=== PATIENT | female | born 1960 | race Caucasian/White ===

== ENCOUNTER 2020-09-05 16:34 | Emergency (ER) | payer BC, SELFPAY ==
--- NOTE | 2020-09-05 16:36 | W.ED.GENAD ---
Discharge Plan Disposition Patient Disposition: HOME Condition: Good Discharge Details Clinical Impression: Left knee pain Primary Care Provider: Ja Ordaz ED Provider: Moshe Dunham Meds and New Rx's Prescriptions: Continued morphine in 0.9 % sodium chlor 0.1 mg/mL Solution 2 ml 5X/DAY RF: 0 oxycodone 10 mg Tablet 10 mg PO TID RF: 0 citalopram 40 mg Tablet 40 mg PO DAILY RF: 0 amoxicillin 500 mg Tablet 500 mg PO QID RF: 0 levothyroxine [Synthroid] 100 mcg Tablet 100 mcg PO DAILY RF: 0 fenofibrate 160 mg Tablet 160 mg PO DAILY RF: 0 Discharge Instructions Additional Instructions: Laboratory studies and imaging are reassuring tonight. I did speak with orthopedics at [facility] regarding plan. Given no fever here with ability to ambulate and unremarkable labs they do not recommend aspirating the knee at this time. It may be that a small starting infection may be present. They would like to see you in the next 1 to 2 days. If your knee gets worse they would like you to present to the ED at [facility]. Please call orthopedics at [facility] tomorrow morning for follow-up Referrals: [facility] [Outside] Medical Decision Making Patient presenting to ED with known dental abscess on amoxicillin since yesterday. Has a relatively new left total knee replacement which is painful and swollen though able to ambulate and flex and extend. She reports throbbing headache and fever. She looks well here. She is afebrile with normal vital signs. I mentioned the possibility of needing to aspirate the knee which she does not wish to do. Spoke with orthopedics at [facility] who recommends getting CBC, sed rate, C-reactive protein and calling them back. Discussed with orthopedics at [facility]. Relayed my physical exam findings and laboratory findings. At this point orthopedics recommends no aspiration, obtain imaging, follow-up in clinic in the next 24 to 48 hours. No change in patient's medications or antibiotics at this point. They would prefer that she presents to the ED there if she gets worse before follow-up. X-rays were obtained and suggest a small effusion. Questionable possibility of some loosening of the hardware. Patient discharged in good condition to contact orthopedics tomorrow morning for follow-up Medical Records Medical records reviewed: Yes I reviewed the patient's medical records. Lab Data Lab results reviewed: Yes I reviewed the patient's lab results. HPI General Date/Time Provider Initiated Documentation: 09/05/20 16:36. Limitations to Documentation: no limitations. Information obtained by: patient, RN notes reviewed and old records reviewed. HPI Narrative: Patient presents to ED for evaluation of left knee pain and swelling. Patient had a left total knee replacement done within the last year. 11 days ago she broke off her back left upper molar. About 5 days in to that she started to have pain and swelling. She was unable to see a dentist until yesterday. Her orthopedist at [facility] told her to take 2 g of amoxicillin before seeing the dentist. After seeing the dentist there was too much swelling and inflammation to proceed with any procedure. She was continued on amoxicillin 500 mg every 8 hours. In the last 2 days she has had some increasing pain and swelling in the left knee. Overnight she has developed a headache. Today she had fever. She spoke to orthopedics at [facility] who referred her into ED for evaluation of septic joint. Patient is able to ambulate with a limp. She is able to flex and extend normally but it feels tight. There is been no redness present. She denies cough, chest pain, shortness of breath, abdominal pain. She generally feels fatigued and malaised. Headache is described as generalized and throbbing. No neck pain. No sinus pressure or earaches. Related Data Home Medications Medication Instructions Recorded Confirmed amoxicillin 500 mg PO QID 09/05/20 09/05/20 citalopram 40 mg PO DAILY 09/05/20 09/05/20 fenofibrate 160 mg PO DAILY 09/05/20 09/05/20 levothyroxine [Synthroid] 100 mcg PO DAILY 09/05/20 09/05/20 morphine in 0.9 % sodium chlor 2 ml 5X/DAY 09/05/20 09/05/20 oxycodone 10 mg PO TID 09/05/20 09/05/20 Allergies Allergy/AdvReac Type Severity Reaction Status Date / Time tetracycline Allergy Itching Unverified 09/05/20 16:42 wheat AdvReac Unverified 09/05/20 16:42 Review of Systems Narrative: As documented in HPI otherwise negative as below. Const: no chills, weakness Resp: no cough, SOB, pleuritic pain CV: no CP, diaphoresis, edema, syncope GI: no abdominal pain, nausea, vomiting, diarrhea Neuro: no numbness, focal weakness, confusion PFSH Medical History Hypercholesterolemia Hypothyroid Surgical History S/P TKR (total knee replacement) left Status post right partial knee replacement Social History Smoking risk assessment performed?: No Do you feel safe at home: Yes Do you feel safe in your relationship?: Yes Exam Narrative Exam Narrative: Const: Obese female in NAD. HEENT: NC/AT. Normal facial exam. Eyes: Normal conjunctiva and sclera. Neck: Supple. Trachea midline. No meningeal signs. Lungs: Normal respiratory effort. Lungs are clear. Cor: RRR without murmur/gallop. Good radial pulses. Neuro: A+O x 3. Normal speech, mentation. Cranial nerves II - XII grossly intact. No gross motor or sensory deficit. Ext: No C/C/E. Left knee warm but not hot or red. Able to flex and extend well. Walks with limp. Skin: Warm and dry without erythema.
[2020-09-05 16:38] VITALS: BP 111/88; PULSE 70; RESP 18; TEMP 36.6; O2SAT 97
[2020-09-05 17:22] LABS: Abs Immature Grans 0.01 10^3/uL (0.0-0.06); Absolute Basophil Count 0.07 10^3/uL (0.0-0.2); Absolute Lymphocyte Count 1.75 10^3/uL (1.2-3.4); Absolute Monocyte Count 0.61 10^3/uL (0.1-0.8); Absolute Neutrophil Count 3.85 10^3/uL (1.2-6.7); HCT 38.1 % (36.0-46.0); Immature Grans % 0.1; Lymphocytes % 26.2; MCHC 31.5 % (32.0-36.0); MCV 85.6 fL (80-95); MPV 9.9 fL (8.0-11.0); Monocytes % 9.1; Neutrophils % 57.6; Nucleated RBC 0 %; Platelet Count 402 10^3/uL (130-400); RBC 4.45 10^6/uL (3.93-5.22); RDW-SD 47.1 fL; WBC 6.69 10^3/uL (4.4-10.8)
[2020-09-05 17:33] LABS: C-Reactive Protein 0.51 mg/dL (0.0-0.3)
[2020-09-05 17:36] LABS: ESR 15 mm//hr (0-30)
--- NOTE | 2020-09-05 18:50 | DI.RAD_ITS ---
EXAM: XR KNEE LT 3V AP,LAT,RICARDO CLINICAL HISTORY: pain and swelling; TKR. TECHNIQUE: 2D digital imaging was performed. COMPARISON: No exams were available for comparison FINDINGS: Components of the prosthesis are in satisfactory position. On the lateral view there is lucency note d around the femoral component which may possibly represent an element of loosening. Comparison with prior images would be helpful here. In addition, on the lateral view there is is subtle in the line ar lucency subjacent to the anterior aspect of the tibial component. There is also some swelling in the soft tissues anterior to the distal quadriceps and patella. There is no patellar fracture. IMPRESSION: Possible loosening. It would be important here to compared to prior images (which are not in our PAC S). DATA REPOSITORY: RADIATION DOSE DELIVERED:
--- NOTE | 2020-09-05 19:08 | DI.VRAD_ITS ---
PROCEDURE INFORMATION: Exam: XR Left Knee Exam date and time: 09/05/2020 6:51 PM Age: 59 years old Clinical indication: Pain; Knee; Left; Prior surgery TECHNIQUE: Imaging protocol: XR Left knee. Views: 3 views. COMPARISON: No relevant prior studies available. FINDINGS: Bones/joints: Prior total knee arthroplasty that appears in near anatomic alignment. There is a small lucency along the inner surface of the femoral component anterosuperiorly. There is a small joint effusion. There has been patellar resurfacing. There is an enthesophyte on the upper pole of the patella. No acute fracture is identified. Soft tissues: Normal. IMPRESSION: 1. Prior total knee arthroplasty in normal alignment. 2. Lucency along the anterosuperior aspect of the femoral component may or may not represent loosening of the prosthesis. Comparison with prior images may be helpful. 3. A small joint effusion. Dictated and Authenticated by: Den Sanchez MD. Ordering:PIERRE Mesa MD
== END 2020-09-05 19:30 | disposition home or self-care (01) ==
PROVIDERS: Emergency Provider Emergency Medicine; PCP Family Medicine
DX: M25.562 Pain in left knee (principal); M25.462 Effusion, left knee; Z96.652 Presence of left artificial knee joint; R93.6 Abnormal findings on diagnostic imaging of limbs; R51.9 Headache, unspecified; R50.9 Fever, unspecified; K04.7 Periapical abscess without sinus
CPT/HCPCS: 36415; 73562; 85652; 99284; 85025; 86140

== ENCOUNTER 2020-09-19 09:15 | Outpatient (REF) | payer BC, SELFPAY ==
[2020-09-19 13:21] LABS: HCT 36.9 % (36.0-46.0); HGB 11.8 g/dL (11.2-15.7); MCH 27.4 pg (27.0-33.0); MCV 85.8 fL (80-95); MPV 10.8 fL (8.0-11.0); Platelet Count 368 10^3/uL (130-400); RDW-SD 46.9 fL; WBC 5.63 10^3/uL (4.4-10.8)
[2020-09-19 14:12] LABS: ALT 38 U/L (14-59); AST 28 U/L (15-37); Alkaline Phosphatase 52 U/L (46-116); Anion Gap 11.3 mmol/L (3-11); BUN 13 mg/dL (7-18); Bilirubin, Total 0.3 mg/dL (0.2-1.0); CO2 25.7 mmol/L (21.0-32.0); CREATININE 0.9 mg/dL (0.55-1.02); Chloride 107 mmol/L (98-107); Glucose 102 mg/dL (74-106); Potassium 4.2 mmol/L (3.5-5.1); Sodium 144 mmol/L (136-145); TSH 1.24 uIU/mL (0.36-3.74); Total Protein 7.4 g/dL (6.4-8.2); Uric Acid 3.8 mg/dL (2.6-6.0)
[2020-09-19 14:25] LABS: Calculated LDL 95 mg/dL (<100); Cholesterol 165 mg/dL (<200); HDL Cholesterol 62 mg/dL (40-60); Triglyceride 41 mg/dL (<150)
== END 2020-09-19 09:16 | disposition home or self-care (01) ==
LOC: NCHCN 09:15
PROVIDERS: PCP Family Medicine; Visit Provider Family Medicine
DX: Z00.00 Encounter for general adult medical examination without abnormal findings (principal); M10.9 Gout, unspecified; M54.5 Low back pain; Z13.220 Encounter for screening for lipoid disorders; Z13.29 Encounter for screening for other suspected endocrine disorder
CPT/HCPCS: 80053; 80061; 85027; 84443; 84550

== ENCOUNTER 2020-10-23 13:58 | Outpatient (CLI) | payer BC, MEDICARE, SELFPAY ==
--- NOTE | 2020-10-24 15:55 | DI.RAD_ITS ---
Exam(s) XR PELVIS AP EXAM: XR PELVIS AP CLINICAL HISTORY: CHRONIC LOW BACK PAIN,M54.5. TECHNIQUE: 2D digital imaging was performed. COMPARISON: No exams were available for comparison FINDINGS: There is a Rickie of previous L5-S1 level fusion bone graft surgery and there are also 2 metallic vanesa britney at the level of the right sacroiliac joint. No evidence of acute fracture. There is a 9 x 6 mil limeter calcific density seen above the greater trochanter of the right hip. No other hip findings. No ominous osseous lesions. Six IMPRESSION: DATA REPOSITORY: RADIATION DOSE DELIVERED:
--- NOTE | 2020-10-24 15:55 | DI.RAD_ITS ---
Exam(s) XR LUMBAR SPINE COMPLETE EXAM: XR LUMBAR SPINE COMPLETE CLINICAL HISTORY: CHRONIC LOW BACK PAIN,M54.5. TECHNIQUE: 2D digital imaging was performed. COMPARISON: CR XR PELVIS AP from 10/24/2020 CR XR PELVIS AP from 10/24/2020 FINDINGS: There is transitional lumbar anatomy. There is no evidence acute fracture or listhesis. There is evidence of previous surgery with bilater al bone graft material at L5-S1 levels and metallic implants at the level of the right SI joint. The re is mild disc space narrowing at L4-5 and L5-S1 levels. No listhesis. Mild degenerative changes a re noted in the facet joints. No ominous osseous lesions. Left sacroiliac joint appears unremarkabl e. Incidentally noted is a thin needle in the posterior back tissues. This is possibly a foreign body o r related to medical diagnostic radiographer. Incidentally noted is a calcific density measuring 10 x 6 millimeters located just above the greater trochanter of the right hip. IMPRESSION: DATA REPOSITORY: RADIATION DOSE DELIVERED:
--- NOTE | 2020-10-24 15:55 | DI.RAD_ITS ---
Exam(s) XR FOOT RT COMPLETE EXAM: XR FOOT RT COMPLETE CLINICAL HISTORY: RT FOOT PAIN,M79.671. TECHNIQUE: 2D digital imaging was performed. COMPARISON: No exams were available for comparison FINDINGS: There is no evidence of acute fracture or diastasis of the Lisfranc joint. On the medial aspect of t he foot there is calcific density at level the navicular tuberosity which is probably ununited apophy sis. Correlation with site of tenderness is recommended. Bone density is slightly low. No lytic os seous lesions. No osseous tarsal coalition noted. No ominous osseous lesions nor erosions seen. No pes planus. IMPRESSION: DATA REPOSITORY: RADIATION DOSE DELIVERED:
== END 2020-10-23 14:18 ==
PROVIDERS: PCP Family Medicine; Visit Provider Family Medicine
DX: M79.671 Pain in right foot (principal); M54.5 Low back pain; G89.29 Other chronic pain
CPT/HCPCS: 72110; 72170; 73630

== ENCOUNTER 2020-10-31 01:40 | Outpatient (CLI) | payer BC, MEDICARE, SELFPAY ==
--- NOTE | 2020-10-31 | DI.MAMMO_ITS ---
Exam(s) MAMMO SCREENING EXAM: MAMMO SCREENING CLINICAL HISTORY: SCREENING, Z12.39 TECHNIQUE: Mammograms were interpreted according to the usual protocol including computer analysis w GENEL[employer] CAD system, tomosynthesis and C-view imaging. COMPARISON: FINDINGS: The breasts are of moderate density with fairly symmetrical distribution of fibroglandular tissue. N o dominant mass or clumped microcalcification is identified in either breast. The current examinatio n is compared with previous examinations including June 2018 and there has been no gross interval change in appearance in comparison with the prior studies. IMPRESSION: No specific evidence of malignancy at this time. Routine screening examinations are suggested at yea rly intervals due to the family history of breast carcinoma. BI-RADS Category 1 - Negative Breast Density - Category B - Scattered areas of fibroglandular density
== END 2020-10-31 02:00 ==
PROVIDERS: PCP Family Medicine; Visit Provider Family Medicine
DX: Z12.31 Encounter for screening mammogram for malignant neoplasm of breast (principal); R92.8 Other abnormal and inconclusive findings on diagnostic imaging of breast; Z80.3 Family history of malignant neoplasm of breast
CPT/HCPCS: 77063; 77067

== ENCOUNTER 2021-04-02 10:11 | Outpatient (REF) | payer BC, MEDICARE, SELFPAY ==
[2021-04-03 19:38] LABS: COVID-19 RT-PCR UVMMC Result Positive (Negative)
== END 2021-04-02 10:12 | disposition home or self-care (01) ==
LOC: NCHCN 10:11
PROVIDERS: PCP Family Medicine; Visit Provider Family Medicine
DX: Z20.822 Contact with and (suspected) exposure to COVID-19 (principal)
CPT/HCPCS: U0003

== ENCOUNTER 2021-09-20 16:39 | Emergency (ER) | payer BC, MEDICARE, SELFPAY ==
[2021-09-20 16:50] VITALS: BP 93/53; PULSE 69; RESP 14; TEMP 37.1; O2SAT 92
--- NOTE | 2021-09-20 17:29 | ED.GENADUL_ITS ---
Discharge Plan Disposition Patient Disposition: HOME Condition: Stable Discharge Details Clinical Impression: Encounter for postoperative wound check Primary Care Provider: Ja Ordaz ED Provider: Siri Benjamin Home Meds and New Rx's Prescriptions: New cephalexin 500 mg tablet 500 mg PO BID 7 Days Qty: 14 0RF No Action morphine in 0.9 % sodium chlor 0.1 mg/mL Solution 2 ml 5X/DAY oxycodone 10 mg Tablet 10 mg PO TID citalopram 40 mg Tablet 40 mg PO DAILY amoxicillin 500 mg Tablet 500 mg PO QID levothyroxine [Synthroid] 100 mcg Tablet 100 mcg PO DAILY Rx Instructions: Brand name only fenofibrate 160 mg Tablet 160 mg PO DAILY Discharge Instructions Instructions: Steristrips (ED) Additional Instructions: Keep incision area clean and dry. Keep covered try not to get wet. Take the antibiotics twice daily as directed take with food. Please notify and follow-up with your surgeon at [facility] regarding wound recheck and to let them know that you are placed on antibiotics today. Follow up with primary care provider in 3-5 days. Return to ED sooner if any worsening or concerns. Increase oral fluids. Please take Tylenol or Ibuprofen with food every 4-6 hours as needed for pain and swelling. Referrals: Ja Ordaz MD [Primary Care Provider] - 3 days Wayne Sanchez [ NON-[employer] [facility] [employer] PHYSICIAN] - 3 days Medical Decision Making 60-year-old female presents to the ER with chief complaint of bleeding from surgical site to the left knee. Patient is status post a left knee revision at [facility] on September 10. She reports that on 12 September she had an episode of hemorrhaging from the knee incision. She was also given blood transfusion while in the hospital. She was released on the . She reports that since being released she has had daily blood soaked dressings. Yesterday had a nurse visit and steri strips were placed. She reports these are not working. She is requesting sutures. Patient does take a baby aspirin daily. She reports that she was on Coumadin but has been off the Coumadin since early September. She was also recently taken off naproxen. She does take Dilaudid and gabapentin for pain. She denies any recent injuries or falls. She is not currently on any antibiotic. Of note she is also recently noticed an area of redness which is more proximal of the incision. She denies any body aches chills or fever. Labs ordered including CBC CMP CBC does show some anemia hemoglobin is 8.5 hematocrit 27.4 RBC 3.98, platelets 151 no leukocytosis. No left shift. CMP largely within normal limits. C- reactive protein is elevated 2.09 1916: Incision examined, no active bleeding at this time. Wound is well approximated there is some areas of patchy surrounding erythema. No purulent drainage noted. There are Steri-Strips that are intact. Steri-Strips were reinforced the distal aspect of the incision. 7 Steri-Strips were placed. Dressing was covered with ABD pads Will place patient on antibiotics due to the erythema and increased pain to empirically for possible infection, Cephalexin 500 mg PO given here. Discussed home care and follow-up with orthopedic surgeon with patient who verbalized understanding. This text was generated using [employer] sy stem, please disregard any oddities of phrase or misspellings. HPI General Mode of arrival: wheelchair . Date/Time Provider Initiated Documentation: 09/20/21 16:47 . Limitations to Documentation: no limitations . Information obtained by: patient, family and RN notes reviewed . HPI Narrative: 60-year-old female presents to the ER with chief complaint of bleeding from surgical site to the left knee. Patient is status post a left knee revision at [facility] on September 10. She reports that on 12 September she had an episode of hemorrhaging from the knee incision. She was also given blood transfusion while in the hospital. She was released on the . She reports that since being released she has had daily blood soaked dressings. Yesterday had a nurse visit and steri strips were placed. She reports these are not working. She is requesting sutures. Patient does take a baby aspirin daily. She reports that she was on Coumadin but has been off the Coumadin since early September. She was also recently taken off naproxen. She does take Dilaudid and gabapentin for pain. She denies any recent injuries or falls. She is not currently on any antibiotic. Of note she is also recently noticed an area of redness which is more proximal of the incision. She denies any body aches chills or fever. Related Data Home Medications Medication Instructions Recorded Confirmed amoxicillin 500 mg tablet 500 mg PO QID 09/05/20 09/20/21 citalopram 40 mg tablet 40 mg PO DAILY 09/05/20 09/20/21 fenofibrate 160 mg tablet 160 mg PO DAILY 09/05/20 09/20/21 levothyroxine 100 mcg tablet 100 mcg PO DAILY 09/05/20 09/20/21 (Synthroid) morphine 0.1 mg/mL in 0.9 % sodium 2 ml 5X/DAY 09/05/20 09/05/20 chloride injection oxycodone 10 mg tablet 10 mg PO TID 09/05/20 09/20/21 cephalexin 500 mg tablet 500 mg PO BID 7 days #14 tabs 09/20/21 Previous Rx's Medication Instructions Recorded cephalexin 500 mg tablet 500 mg PO BID 7 days #14 tabs 09/20/21 Allergies Allergy/AdvReac Type Severity Reaction Status Date / Time latex Allergy Verified 03/12/21 14:37 [id number]-FhP Reductase Allergy Verified 03/12/21 14:37 Inhibitor tetracycline Allergy Itching Unverified 09/05/20 16:42 wheat AdvReac Unverified 09/05/20 16:42 General Stated Complaint: GenMedical QUIN: 3 Review of Systems All systems reviewed & are unremarkable except as noted in HPI and below Constitutional Constitutional: Denies body ache(s), Denies chills, Denies fever(s) and Denies frequent falls Musculoskeletal Musculoskeletal: Reports as per HPI (Bleeding from surgical incision) and Reports arthralgias Neurologic Neurologic: Denies frequent falls PFSH All Active Problems (Updated 09/20/21 @ 19:26 by Siri Benjamin) Left knee pain (Acute) Encounter for postoperative wound check (Acute) Hypothyroid (Chronic) Hypercholesterolemia (Chronic) Surgical History S/P TKR (total knee replacement) left Status post right partial knee replacement Social History Smoking/Tobacco Use Status: Former Tobacco Use Smoking risk assessment performed?: Yes Do you feel safe at home: Yes Do you feel safe in your relationship?: Yes Exam Extrem Right lower extremity: normal to inspection Left lower extremity: knee Details: laceration (Healing Surgical Incision with steri-strips in place, no active bleeding) Knee images: 1. Surgical incision 2. Erythema 3. Erythema Course Vital Signs Vital signs: Vital Signs Temperature 37.1 C 09/20/21 16:50 Pulse 69 09/20/21 16:50 Respiratory Rate 14 09/20/21 16:50 Blood Pressure 93/53 L 09/20/21 16:50 Pulse Oximetry 92 09/20/21 16:50 Temperature 37.1 C 09/20/21 16:50 Temperature Source Temporal Artery Scan 09/20/21 16:50 Pulse 69 09/20/21 16:50 Respiratory Rate 14 09/20/21 16:50 Respiratory Effort Non-Labored 09/20/21 17:01 Blood Pressure 93/53 L 09/20/21 16:50 Blood Pressure Position Sitting 09/20/21 16:50 Pulse Oximetry 92 09/20/21 16:50 Oxygen Delivery Method Room Air 09/20/21 16:50 Oxygen Flow Rate 0 09/20/21 16:50 Comment 09/20/21 16:50
[2021-09-20 17:41] VITALS: RESP 18
[2021-09-20 17:45] LABS: Abs Immature Grans 0.34 10^3/uL (0.0-0.06); Absolute Basophil Count 0.05 10^3/uL (0.0-0.2); Absolute Eosinophil Count 0.51 10^3/uL (0.0-0.7); Absolute Lymphocyte Count 1.81 10^3/uL (1.2-3.4); Absolute Monocyte Count 0.91 10^3/uL (0.1-0.8); Absolute Neutrophil Count 4.56 10^3/uL (1.2-6.7); Basophils % 0.6; Eosinophils % 6.2; HCT 27.4 % (36.0-46.0); HGB 8.5 g/dL (11.2-15.7); Immature Grans % 4.2; Lymphocytes % 22.1; MCH 28.5 pg (27.0-33.0); MCV 92 fL (80-95); MPV 9.4 fL (8.0-11.0); Monocytes % 11.1; Neutrophils % 55.8; Nucleated RBC 0.4 % (0.0-0.3); Platelet Count 451 10^3/uL (130-400); RBC 2.98 10^6/uL (3.93-5.22); RDW 13.7 % (11.7-14.6); RDW-SD 44.7 fL; WBC 8.18 10^3/uL (4.4-10.8)
[2021-09-20 17:57] LABS: INR 0.9 (0.9-1.1); Prothrombin Time 9.5 sec (9.3-11.0)
[2021-09-20 17:58] LABS: Diff Comment Agrees w/ Instrument; Polychromasia Present
[2021-09-20 18:00] LABS: ALT 30 U/L (14-59); AST 33 U/L (15-37); Albumin 3.1 g/dL (3.4-5.0); Alkaline Phosphatase 61 U/L (46-116); Anion Gap 6.4 mmol/L (3-11); BUN 8 mg/dL (7-18); Bilirubin, Total 0.2 mg/dL (0.2-1.0); C-Reactive Protein 2.09 mg/dL (0.0-0.3); CO2 29.6 mmol/L (21.0-32.0); CREATININE 0.8 mg/dL (0.55-1.02); Calcium 8.5 mg/dL (8.5-10.1); Chloride 104 mmol/L (98-107); Glucose 108 mg/dL (74-106); Potassium 4.1 mmol/L (3.5-5.1); Sodium 140 mmol/L (136-145); Total Protein 6.9 g/dL (6.4-8.2)
[2021-09-20] MEDS: Cephalexin 500 MG CAP PO (19:39)
[2021-09-20] MEDS: Cephalexin 500 MG CAP, 2 CAPS/BTL PO (19:39)
[2021-09-20 19:40] VITALS: BP 138/86; PULSE 78; RESP 18; TEMP 37; O2SAT 98
== END 2021-09-20 19:38 | disposition home or self-care (01) ==
PROVIDERS: Emergency Provider Registered Nurse Emergency; PCP Family Medicine
DX: L76.22 Postprocedural hemorrhage of skin and subcutaneous tissue following other procedure (principal); Z79.82 Long term (current) use of aspirin
CPT/HCPCS: 36415; 80053; 99283; 85025; 85610; 86140

== ENCOUNTER 2022-05-26 12:41 | Outpatient (REF) | payer BC, MEDICARE, SELFPAY ==
[2022-05-26 15:56] LABS: Anion Gap 7.7 mmol/L (3-11); BUN 11 mg/dL (7-18); CO2 31.3 mmol/L (21.0-32.0); CREATININE 0.8 mg/dL (0.55-1.02); Calcium 9.3 mg/dL (8.5-10.1); Calculated LDL 106 mg/dL (<100); Chloride 104 mmol/L (98-107); Cholesterol 190 mg/dL (<200); Glucose 98 mg/dL (74-106); HDL Cholesterol 73 mg/dL (40-60); Potassium 4.1 mmol/L (3.5-5.1); Sodium 143 mmol/L (136-145); TSH 7.18 uIU/mL (0.36-3.74); Triglyceride 56 mg/dL (<150)
== END 2022-05-26 12:42 | disposition home or self-care (01) ==
LOC: NCHCN 12:41
PROVIDERS: PCP Family Medicine; Visit Provider Family Medicine
DX: E03.9 Hypothyroidism, unspecified (principal); E78.5 Hyperlipidemia, unspecified; E66.9 Obesity, unspecified; Z00.00 Encounter for general adult medical examination without abnormal findings
CPT/HCPCS: 80048; 80061; 84443

== ENCOUNTER 2022-09-01 17:49 | Outpatient (REF) | payer BC, MEDICARE, SELFPAY ==
[2022-09-01 21:36] LABS: TSH (W/Ref FT4) 0.45 uIU/mL (0.36-3.74)
== END 2022-09-01 17:50 | disposition home or self-care (01) ==
LOC: NCHCN 17:49
PROVIDERS: PCP Family Medicine; Visit Provider Family Medicine
DX: E03.9 Hypothyroidism, unspecified (principal)
CPT/HCPCS: 84443

== ENCOUNTER 2023-03-05 17:37 | Outpatient (REF) | payer BC, MEDICARE, SELFPAY ==
[2023-03-05 22:10] LABS: TSH (W/Ref FT4) 0.39 uIU/mL (0.36-3.74)
== END 2023-03-05 17:38 | disposition home or self-care (01) ==
LOC: NCHCN 17:37
PROVIDERS: PCP Family Medicine; Visit Provider Family Medicine
DX: E03.9 Hypothyroidism, unspecified (principal)
CPT/HCPCS: 84443

== ENCOUNTER → 2023-03-23 01:43 | Outpatient (CLI) | payer BC, MEDICARE, SELFPAY ==
--- NOTE | 2023-03-23 | DI.MAMMO_ITS ---
Exam(s) MAMMO SCREENING EXAM: MAMMO SCREENING CLINICAL HISTORY: SCREENING, Z12.31. TECHNIQUE: Bilateral full field digital CC and MLO mammographic images were obtained with 3D tomosyn thesis and utilizing computer aided detection (CAD). COMPARISON: Prior mammograms were reviewed. FINDINGS: There has been no significant change in the appearance and distribution of the fibroglandular tissue. No CAD designations. There are no new spiculated masses nor malignant appearing microcalcification groups. There is no significant architectural distortion nor skin thickening-retraction. IMPRESSION: No radiographic evidence of malignancy. BI-RADS Category 1 - Negative Breast Density - Category A - Almost entirely fatty Breast density Category C or D implies that the patient has dense breast tissue. Dense breast tissue can make it harder to find cancer on a mammogram. Dense breast tissue is also associated with an incr eased risk of breast cancer. This information about the result of the mammogram report was provided to the patient to raise their awareness. Use this report when you speak with the patient about their risks for breast cancer, which includes their family history. At that time, you may recommend additional screening tests (Ultrasoun d or MRI) as these tests may add significant information. A negative radiographic report should not delay biopsy if a dominant or clinically suspicious mass is present. Up to ten percent of cancers are not identified on mammography. A negative report may reinforce clinical impression. Adenosis and dense breasts may obscure an underlying neoplasm. False positive reports average 6 to 10%. Patient will receive a letter notifying them of these results.
== END ==
PROVIDERS: PCP Family Medicine; Visit Provider Family Medicine
DX: Z12.31 Encounter for screening mammogram for malignant neoplasm of breast (principal)
CPT/HCPCS: 77063; 77067

== ENCOUNTER 2023-05-27 09:56 | Outpatient (REF) | payer BC, MEDICARE, SELFPAY ==
[2023-05-27 14:10] LABS: Abs Immature Grans 0.02 10^3/uL (0.0-0.06); Absolute Basophil Count 0.05 10^3/uL (0.0-0.2); Absolute Eosinophil Count 0.43 10^3/uL (0.0-0.7); Absolute Lymphocyte Count 1.61 10^3/uL (1.2-3.4); Absolute Monocyte Count 0.63 10^3/uL (0.1-0.8); Absolute Neutrophil Count 3.52 10^3/uL (1.2-6.7); Basophils % 0.8; Eosinophils % 6.9; HCT 39.1 % (36.0-46.0); HGB 12.7 g/dL (11.2-15.7); Immature Grans % 0.3; Lymphocytes % 25.7; MCH 28.9 pg (27.0-33.0); MCHC 32.5 % (32.0-36.0); MCV 89 fL (80-95); MPV 10.5 fL (8.0-11.0); Monocytes % 10.1; Neutrophils % 56.2; Platelet Count 388 10^3/uL (130-400); RBC 4.39 10^6/uL (3.93-5.22); RDW 12.9 % (11.7-14.6); RDW-SD 42.2 fL; WBC 6.26 10^3/uL (4.4-10.8)
[2023-05-27 14:27] LABS: ALT 44 U/L (14-59); AST 23 U/L (15-37); Albumin 3.9 g/dL (3.4-5.0); Alkaline Phosphatase 55 U/L (46-116); Anion Gap 5.4 mmol/L (3-11); BUN 13 mg/dL (7-18); Bilirubin, Total 0.3 mg/dL (0.2-1.0); CO2 31.6 mmol/L (21.0-32.0); CREATININE 0.8 mg/dL (0.55-1.02); Calcium 9.4 mg/dL (8.5-10.1); Chloride 105 mmol/L (98-107); Estimated GFR 83.78 (mL/min/1.73m2); Glucose 102 mg/dL (74-106); Potassium 4.1 mmol/L (3.5-5.1); Sodium 142 mmol/L (136-145); Total Protein 7.3 g/dL (6.4-8.2)
[2023-05-27 17:02] LABS: Calculated LDL 110 mg/dL (<100); Cholesterol 190 mg/dL (<200); HDL Cholesterol 69 mg/dL (40-60); Triglyceride 57 mg/dL (<150)
== END 2023-05-27 09:57 | disposition home or self-care (01) ==
LOC: NCHCN 09:56
PROVIDERS: PCP Family Medicine; Visit Provider Family Medicine
DX: Z00.00 Encounter for general adult medical examination without abnormal findings (principal); E78.5 Hyperlipidemia, unspecified
CPT/HCPCS: 80053; 80061; 83036; 85025

== ENCOUNTER → 2023-06-22 02:07 | Outpatient (CLI) | payer BC, MEDICARE, SELFPAY ==
--- NOTE | 2023-06-22 16:15 | DI.RAD_ITS ---
Exam(s) XR FOOT LT COMPLETE EXAM: XR FOOT LT COMPLETE CLINICAL HISTORY: FOREIGN BODY FOOT, S99.822A, OTHER SPECIFIED INJURIES LT FOOT. TECHNIQUE: 2D digital imaging was performed. Three views. COMPARISON: CR XR FOOT RT COMPLETE from 10/24/2020 FINDINGS: BONES: No acute fracture is present. No bony destructive lesion is seen. JOINTS: No dislocation present. No significant degenerative changes. SOFT TISSUE: Normal. No foot radiopaque foreign body visible. IMPRESSION: Unremarkable radiographs of the left foot. DATA REPOSITORY: RADIATION DOSE DELIVERED:
== END ==
PROVIDERS: PCP Family Medicine; Visit Provider Family Medicine
DX: S99.822A Other specified injuries of left foot, initial encounter (principal); X58.XXXA Exposure to other specified factors, initial encounter
CPT/HCPCS: 73630

== ENCOUNTER 2024-04-05 16:19 | Outpatient (REF) | payer OTHER, MEDICARE, SELFPAY ==
[2024-04-05 14:23] LABS: HGB 12.1 g/dL (11.2-15.7); MCH 28.3 pg (27.0-33.0); MCHC 32.7 % (32.0-36.0); MCV 87 fL (80-95); MPV 10.3 fL (8.0-11.0); Platelet Count 337 10^3/uL (130-400); RBC 4.27 10^6/uL (3.93-5.22); RDW 12.7 % (11.7-14.6); RDW-SD 40.1 fL; WBC 5.92 10^3/uL (4.4-10.8)
[2024-04-05 14:44] LABS: ALT 56 U/L (14-59); AST 33 U/L (15-37); Albumin 3.8 g/dL (3.4-5.0); Alkaline Phosphatase 60 U/L (46-116); Anion Gap 7.2 mmol/L (3-11); BUN 10 mg/dL (7-18); Bilirubin, Total 0.42 mg/dL (0.2-1.0); CO2 28.8 mmol/L (21.0-32.0); CREATININE 0.8 mg/dL (0.55-1.02); Calcium 9.1 mg/dL (8.5-10.1); Chloride 105 mmol/L (98-107); Estimated GFR 83.26 (mL/min/1.73m2); Glucose 96 mg/dL (74-106); Sodium 141 mmol/L (136-145); Total Protein 7.1 g/dL (6.4-8.2)
--- OUTSIDE RECORDS SUMMARY | 2024-04-05 16:21 | XMS_ITS | Encounter Summary ---
Author Organization On License Of [facility] Address [facility] [place] [address] Care Team Providers Care National Dedicated Truck Driver Name Role Phone Ja Ordaz MD Primary Care Provider [phone] Encounter Details Date Type Department Care Team (Latest Contact Info) Description 03/04/2024 Travel Social History Tobacco Use Types Packs/Day Years Used Date Smoking Tobacco: Former Cigarettes Q uit: 09/23/1991 Smokeless Tobacco: Never Alcohol Use Standard Drinks/Week Comments No 0 (1 standard drink = 0.6 oz pur e alcohol) Sex and Gender Information Value Date Recorded Sex Assigned at Not on file Gender Identity Not on file Sexual Orientation Not on file documented as of this encounter Plan of Treatment Upcoming Encounters Date Type Department Care Team (Latest Contact Info) Description 04/06/2024 11:30 AM EST Hospital Encounter [facility] [place] [address] Cadence Eric MD [facility] [place] [address] 04/06/2024 11:30 AM EST - 04/06/2024 12:50 PM EST Surgery [facility] [place] [id number] Cadence Eric MD [facility] [place] [address] IMPLANT NEUROSTIMULATOR ELECTRODES, PERIPHERAL NERVE (WRVU 5.76) 04/14/2024 2:30 PM EST Office Visit [facility] [place] [address] Cadence Eric MD [facility] [place] [address] Scheduled Procedures Name Priority Associated Diagnoses Date/Ti me IMPLANT NEUROSTIMULATOR ELECTRODES, PERIPHERAL NERVE (WRVU 5.76) Yes Saphenous neuralgia, right 04/06/2024 11:30 AM EST IMPLANT NEUROSTIMULATOR ELECTRODES, PERIPHERAL NERVE (WRVU 5.76) Saphenous neuralgia, 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 Neuropathic pain COLONOSCOPY,SCREENING (WRVU 3.26) Health maintenance examination-screening colo documented as of this encounter Visit Diagnoses Not on filedocumented in this encounter Care Teams National Dedicated Truck Driver Relationship Specialty Start Date End Date Ja Ordaz MD [address] [place] [id number] PCP - General Emergency Medicine 03/11/21 documented as of this encounter
--- OUTSIDE RECORDS SUMMARY | 2024-04-05 16:21 | XMS_ITS | Encounter Summary ---
Author Organization Formerly [facility] [place] [address] Care Team Providers Care Level Glass Forming Machine Operator Name Role Phone Ja Ordaz MD Primary Care Provider [phone] Reason for Visit * Reason Onset Date Comments Other 03/29/2024 Patient question s prior to PNS procedure. Encounter Details Date Type Department Care Team (Late st Contact Info) Description 03/29/2024 Telephone [facility] [place] [address] Aleida Lopez RN Other (Patient questions prior to PNS procedure.) Social History Tobacco Use Types Packs/Day Years Used Date Smoking Tobacco: Former Cigarettes Q uit: 09/23/1991 Smokeless Tobacco: Never Alcohol Use Standard Drinks/Week Comments No 0 (1 standard drink = 0.6 oz pur e alcohol) Sex and Gender Information Value Date Recorded Sex Assigned at Not on file Gender Identity Not on file Sexual Orientation Not on file documented as of this encounter Miscellaneous Notes * Telephone Encounter - Aleida Lopez RN - 03/29/2024 11:59 AM EST RTC to patient regarding questions about dental work and flu shot prior to PNS procedure. Recommended to patient that she hold off on invasive dental work and flu shot until at least 2 weeks after procedure. Patient verbalized understanding. No further action needed. documented in this encounter Plan of Treatment Upcoming Encounters Date Type Department Care Team (Latest Contact Info) Description 04/06/2024 11:30 AM EST Hospital Encounter [place] [address] Cadence Eric MD [facility] [place] [address] 04/06/2024 11:30 AM EST - 04/06/2024 12:50 PM EST Surgery [facility] [place] [address] Cadence Eric MD [facility] [place] [address] IMPLANT NEUROSTIMULATOR ELECTRODES, PERIPHERAL NERVE (WRVU 5.76) 04/14/2024 2:30 PM EST Office Visit [facility] [place] [address] Cadence Eric MD [facility] [place] [address] Scheduled Procedures Name Priority Associated Diagnoses Date/Ti [...] on filedocumented in this encounter Care Teams Level Glass Forming Machine Operator Relationship Specialty Start Date End Date Ja Ordaz MD [address] [place] [address] PCP - General Emergency Medicine 03/11/21 documented as of this encounter
--- OUTSIDE RECORDS SUMMARY | 2024-04-05 16:21 | XMS_ITS | Encounter Summary ---
Author Organization [facility] [place] [address] Care Team Providers Care Cloth Classer Name Role Phone Ja Ordaz MD Primary Care Provider [phone] Reason for Visit * Reason Onset Date Comments Appointment 03/17/2024 Encounter Details Date Type Department Care Team (Late st Contact Info) Description 03/17/2024 Telephone [facility] [place] [address] Etelvina Bishop, RN Appointment Social History Tobacco Use Types Packs/Day Years [...] Telephone Encounter - Aleida Lopez RN - 03/21/2024 8:50 AM EST Spoke with patient regarding next steps for procedure. It was recommended by Dr. Eric to schedule an appointment to discuss nerve stimulator further. Patient stated she already spoke with Dr. Eric at her last visit regarding the procedure and did not feel it was necessary. Told patient we will send a message to Dr. Eric and get back to her. Please advise. * Telephone Encounter - Etelvina Bishop RN - 03/17/2024 4:25 PM EST Copied from CRM #[id number]. Topic: Specialty Dept CRMs - Generic Call >> Mar 17, 2024 2:52 PM Melani Oro wrote: Specialist: Cadence Eric MD Relationship (if other than patient-full name): Etelvina Cuadra Reason for Call: Patient called in this afternoon and wants to let Dr. Eric know that she wantsto proceed with the surgery for the stimulator in her leg. Please call patient to discuss and advise the proper next steps regarding this. Thank you. documented in this encounter Plan of Treatment Upcoming Encounters Date Type Department Care Team (Latest Contact Info) Description 04/06/2024 11:30 AM EST Hospital Encounter [place] [address] [facility] [place] [address] 04/06/2024 11:30 AM EST - 04/06/2024 12:50 PM EST Surgery [place] [address] [facility] [place] [address] IMPLANT NEUROSTIMULATOR ELECTRODES, PERIPHERAL NERVE (WRVU 5.76) 04/14/2024 2:30 PM EST Office Visit [facility] [place] [address] [facility] [place] [address] Scheduled Procedures Name Priority Associated Diagnoses Date/Ti [...] on filedocumented in this encounter Care Teams Cloth Classer Relationship Specialty Start Date End Date Ja Ordaz MD [address] [place] [id number] PCP - General Emergency Medicine 03/11/21 documented as of this encounter
--- OUTSIDE RECORDS SUMMARY | 2024-04-05 16:21 | XMS_ITS | Encounter Summary ---
Author Organization Formerly [facility] [place] [address] Care Team Providers Care Zigzag Topstitcher Name Role Phone Ja Ordaz MD Primary Care Provider [phone] Reason for Visit * Auth/Cert (Routine) Specialty Diagnoses / Procedures Referred By Contac t Referred To Contact Diagnoses Postlaminectomy syndrome of lumbar region Presence of intrathecal pump post laminectomy syndrome Procedures PRO ELECTRONIC PUMP ANALYSIS W REPROGRAMMING AND REFILL BY /RESEARCH AND EVALUATION ANALYST ELECTRONIC HERNANDEZ PROG., PUMP- DRUG INFUS; W/ REPROGRAM & REFILL REQ (WRVU 0.9) Cadence Eric MD [facility] [place] [address] [facility] Referral ID Status Reason Start Date Expiration Date Visits Re quested Visits Authorized [id number] 1 1 Encounter Details Date Type Department Care Team (Late st Contact Info) Description 03/04/2024 2:00 PM EDT Ancillary [place] [phone] Cadence Eric MD [facility] [place] [address] Social History Tobacco Use Types Packs/Day Years [...] AM EST Hospital Encounter [place] [address] Cadence Eric MD [facility] [place] [address] 04/06/2024 11:30 AM EST - 04/06/2024 12:50 PM EST Surgery [place] [address] Cadence Eric MD [facility] [place] [address] IMPLANT NEUROSTIMULATOR ELECTRODES, PERIPHERAL NERVE (WRVU 5.76) 04/14/2024 2:30 PM EST Office Visit [facility] [place] [address] Cadence Eric MD [facility] [place] [address] Scheduled Procedures Name Priority Associated Diagnoses Date/Ti me IMPLANT NEUROSTIMULATOR ELECTRODES, PERIPHERAL NERVE (WRVU 5.76) Yes Saphenous neuralgia, right 04/06/2024 11:30 AM EST IMPLANT NEUROSTIMULATOR ELECTRODES, PERIPHERAL NERVE (WRVU 5.76) Saphenous neuralgia, 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 Cadence Eric MD IMG FILM LIBRARY ORDERABLES [place], [place] documented in this encounter Visit Diagnoses Not on filedocumented in this encounter Care Teams Zigzag Topstitcher Relationship Specialty Start Date End Date Ja Ordaz MD [address] [place] [id number] PCP - General Emergency Medicine 03/11/21 documented as of this encounter
--- OUTSIDE RECORDS SUMMARY | 2024-04-05 16:21 | XMS_ITS | Encounter Summary ---
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; Neuropathic pain Social History Tobacco Use Types Packs/Day Years [...] AM EST Hospital Encounter Outpatient [place] [phone] Cadence Eric MD [facility] [place] [address] 04/06/2024 11:30 AM EST - 04/06/2024 12:50 PM EST Surgery [facility] [place] [address] Cadence Eric MD [facility] [place] [address] IMPLANT NEUROSTIMULATOR ELECTRODES, PERIPHERAL NERVE (WRVU 5.76) 04/14/2024 2:30 PM EST Office Visit [place] [address] Cadence Eric MD [facility] [place] [address] Scheduled Orders Name Type Priority Associated Diagnoses Orde r Schedule SURGICAL CASE REQUEST: IMPLANT NEUROSTIMULATOR ELECTRODES, PERIPHERAL NERVE (WRVU 5.76) Procedures Routine Saphenous neuralgia, 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 Neuropathic pain Ordered: 03/21/2024 Scheduled Procedures Name Priority Associated Diagnoses Date/Ti me IMPLANT NEUROSTIMULATOR ELECTRODES, PERIPHERAL NERVE (WRVU 5.76) Yes Saphenous neuralgia, right 04/06/2024 11:30 AM EST IMPLANT NEUROSTIMULATOR ELECTRODES, PERIPHERAL NERVE (WRVU 5.76) Saphenous neuralgia, 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
--- OUTSIDE RECORDS SUMMARY | 2024-04-05 16:21 | XMS_ITS | Clinical Summary ---
Author Organization [facility] Address [facility] [place] [address] Care Team Providers Care Rig Superintendent Name Role Phone Ja Ordaz MD Primary Care Provider [phone] Allergies Active Allergy Reactions Criticality Noted Date Comments Adhesive Hives 03/29/2020 Canine Protein Containing Products Itching Gabapentin Hives 10/29/2022 Hallucinations. Shouldn't be given alongside Morphine Hazelnut Other (See Comments) 03/03/2011 Hydrocodone Other (See Comments) Bad headache; tolerates HYDROmorphone 5.6.22 Hydrocodone-Acetaminop hen Other (See Comments) Bad headache; tolerates HYDROmorphone 5.6.22 Hydrocodone-Ibuprofen 08/12/2012 Other reaction(s): Unknown/Not Verified; tolerates HYDROmorphone 5.6.22 Latex, Natural Rubber 07/04/2022 takes my whole skin away Peanut Anaphylaxis High Peanut Oil Anaphylaxis High Rice Anaphylaxis High 04/28/2017 Rofecoxib Tetracyclines Itching 07/19/2009 Wheat Anaphylaxis High 04/28/2017 Wheat Bran Anaphylaxis High Wheat Flour Anaphylaxis High Wheat Germ Oil Anaphylaxis High Wheat Starch Anaphylaxis High Wool Itching,Rash 02/10/2018 Medications Medication Sig Dispensed Refills Start Date End Date Status morphine sulfate/D5W (MORPHINE IN D5W) 1 mg/mL Prefilled Pump [place] Inject as directed. Has intrathecal pump with continuous rate and Has 5 preset prn boluses pt may give herself Active multivitamin with minerals Tablet Take 1 tablet by mouth daily. Active NARCAN 4 mg/actuation [place], Non-Aerosol instill 1 spray in 1 NOSTRIL if needed for opioid overdose may re... (REFER TO PRESCRIPTION NOTES). 0 12/08/2018 Active calcium carbonate-vitamin D3 (Os-Nico 500 + D3) 500mg (1,250mg) -600 unit Tablet Take 1 tablet by mouth Daily. 01/16/2016 Active Bifidobacterium infantis (ALIGN) 4 mg Capsule Take by mouth daily. 2 gummies daily=4MG Active epinephrine HCl/PF (EPINEPHrine, pf,) 1 mg/mL (1:1,000) Solution Inject as directed. Activ e fenofibrate (TRIGLIDE) 160 mg Tablet Take 1 tablet by mouth nightly. 90 tablet 1 07/26/2020 Active Additional Information Patient taking differently:160 mg OralDAILY, Take 1/2 tablet nightly, Reported on 09/04/2021 levothyroxine (Synthroid) 100 mcg Tablet Take 1 tablet by mouth daily. PATIENT REQUESTS SYNTHROID(NOT GENERIC) 90 tablet 1 08/01/2020 Active Additional Information Patient taking differently:100 mcg OralNIGHTLY, PATIENT REQUESTS SYNTHROID(NOT GENERIC), Reported on 09/04/2021 citalopram (CeleXA) 20 mg Tablet Take 20 mg by mouth nightly. Active EPINEPHrine 0.3 mg/0.3 mL Auto-Injector 05/26/2022 Active oxyCODONE (Roxicodone) 15 mg tablet Take 15 mg by mouth 3 times daily as needed for Pain. Active magnesium hydroxide (CASTELLON MILK OF MAGNESIA ORAL) Take by mouth as needed. Active baclofen (Lioresal) 10 mg tablet Take 10 mg by mouth 2 times daily as needed. 12/04/2022 Active amoxicillin (Amoxil) 500 mg tablet Take 4 tablets by mouth once as needed. Take 2 g (4 tablets) one hour prior to dental procedures 20 tablet 01/21/2023 Active Active Problems Patient Care Coordination No te Formatting of this note migh t be different from the original. Per Pt - All prescriptions need to be sent to [facility] in [facility]. She does not want them sent to [facility] in [facility]. PATIENT HAS MEDTRONIC INTRATHECAL PAIN PUMP- IMPLANTED 03/23/19. [facility] AT [phone] FOR ANY PUMP QUESTIONS AND PRIOR TO COMPLETING ANY MRI. 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 Sanchez) 2 S/P TKR (total knee replacement), left 2 Pain in joint, lower leg 10/26/2020 Osteoarthritis of left knee 03/29/2020 s/p Left Total Knee Arthroplasty - 03/29/2020 Dr Robert Jacobson 03/29/2020 Presence of intrathecal pump 02/21/2020 Overview (02/21/2020): Morphine dosing managed by [facility]. Anxiety and depression 02/21/2020 HLD (hyperlipidemia) 02/21/2020 Primary osteoarthritis of left knee 12/06/2019 Overview (12/06/2019): Added automatically from request for surgery [id number] Morbid obesity with BMI of 45.0-49.9, adult 11/09 Overview (12/06/2019): Added automatically from request for surgery [id number] Morbid obesity 12/06/2019 Overview (03/27/2020): Added automatically from request for surgery [id number] Chronic pain disorder 04/28/2017 Chronic bilateral low back pain with bilateral s ciatica 04/28/2017 Chronic prescription opiate use 04/28/2017 Overview (02/21/2020): Per PDMP Feb 21, 2020: oxycodone 10 mg, #3 per day prescribed by her PCP. Allergic rhinitis 12/18/2015 Acquired hypothyroidism 08/17/2012 Cervicalgia 03/10/2006 Postlaminectomy syndrome of lumbar region Resolved Problems Problem Noted Date Diagnosed Date Resolved Date Chronic pain of left knee 12/06/2019 Overview (12/06/2019): Added automatically from request for surgery [id number] Ventral hernia 07/12/2018 02/21/2020 S/P repair of ventral hernia 07/12/2018 02/21/2020 Incisional hernia, with obst ruction, without gangrene 06/24/2018 02/21/2020 Morbid obesity with BMI of 50.0-59.9, adult 06/24/2018 02/21/2020 Cholecystitis 10/17/2016 02/21/2020 Lumbago 03/10/2006 02/21/2020 CIS - Sciatica 02/21/2020 Encounters Date Type Department Care Team Description 04/01/2024 Telephone [facility] [place] [phone] Leanna Dent Fay 03/29/2024 Telephone [facility] [place] [phone] Aleida Lopez, RN Other (Patient questions prior to PNS procedure.) 03/21/2024 Orders Only Pain Management [place] [phone] Cadence Eric MD Saphenous neuralgia, left; 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; Neuropathic pain 03/17/2024 Telephone [facility] [place] [phone] Etelvina Bishop, SONNY Appointment 03/04/2024 2:00 PM EDT Ancillary [place] [phone] Cadence Eric MD 03/04/2024 2:00 PM EDT - 03/04/2024 3:00 PM EDT [place] [phone] Cadence Eric MD ELECTRONIC HERNANDEZ PROG., PUMP- DRUG INFUS; W/ REPROGRAM & REFILL MILAGRO DAWSON (WRVU 0.9) 03/04/2024 1:31 PM EDT - 03/04/2024 2:48 PM EDT Hospital En[place] [phone] Cadence Eric MD Postlaminectomy syndrome of lumbar region; Presence of intrathecal pump Discharge Disposition: Home 03/04/2024 Travel 02/25/2024 Telephone [place] [phone] Etelvina Bishop RN Bumped Appointment (Apt changed to 03/04/24) from Last 3 Months Immunizations Name Administration Dates Next Due Hepatitis A Adult (Havrix, Vaqta) 01/07/2019 Influenza Quadrivalent, Preservative Free 2018,01/28/2017 Influenza Trivalent, Preservative Free 0,01/07/2019,02/12/2018 Influenza Unspecified Formulation 01/23/2018 Tdap (Adacel, Boostrix) 10/24/2015,09/05/2011 Family History Medical History Relation Comments Coronary Artery Disease Father Hypertension Father Myocardial Infarction Father Breast Cancer Maternal Grandmother Anesthesia Reaction Neg Hx Diabetes Neg Hx Relation Status Comments Father (Age 86) COD: VANCE Maternal Grandmother Mother Alive Social History Tobacco Use Types Packs/Day Years Used Date Smoking Tobacco: Former Cigarettes Q uit: 09/23/1991 Smokeless Tobacco: Never Alcohol Use Standard Drinks/Week Comments No 0 (1 standard drink = 0.6 oz pur e alcohol) Sex and Gender Information Value Date Recorded Sex Assigned at Not on file Gender Identity Not on file Sexual Orientation Not on file Last Filed Vital Signs Vital Sign Reading Time Taken Comments Blood Pressure 124/62 03/04/2024 1:43 PM EDT Pulse 58 03/04/2024 1:43 PM EDT Temperature 36.9 ??C (98.5 ??F) 06/17/2023 7:52 AM ES T Respiratory Rate 14 09/04/2023 10:52 AM EDT Oxygen Saturation 98% 03/04/2024 1:43 PM EDT Inhaled Oxygen Concentration - - Weight 108 kg (238 lb) 09/04/2023 10:52 AM EDT Height 149.9 cm (4' 11) 09/04/2023 10:52 AM EDT Body Mass Index 48.07 09/04/2023 10:52 AM EDT Plan of Treatment Upcoming Encounters Date Type Department Care Team (Latest Contact Info) Description 04/06/2024 11:30 AM EST Hospital Encounter Out[place] [address] Cadence Eric MD [facility] [place] [address] 04/06/2024 11:30 AM EST - 04/06/2024 12:50 PM EST Surgery [place]patient [place] [phone] Cadence Eric MD [facility] [place] [address] IMPLANT NEUROSTIMULATOR ELECTRODES, PERIPHERAL NERVE (WRVU 5.76) 04/14/2024 2:30 PM EST Office Visit [place] [phone] Cadence Eric MD [facility] [place] [address] Scheduled Procedures Name Priority Associated Diagnoses Date/Ti me IMPLANT NEUROSTIMULATOR ELECTRODES, PERIPHERAL NERVE (WRVU 5.76) Yes Saphenous neuralgia, right 04/06/2024 11:30 AM EST IMPLANT NEUROSTIMULATOR ELECTRODES, PERIPHERAL NERVE (WRVU 5.76) Saphenous neuralgia, 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 Neuropathic pain COLONOSCOPY,SCREENING (WRVU 3.26) Health maintenance examination-screening colo Health Maintenance Due Date Last Done Comments CT Colonography 1961 FIT DNA 1961 FIT 1961 Sigmoidoscopy 1961 HIV screen 11/25/1979 Hepatitis C Screening 11/25/1979 Breast Cancer Share Decision Needed 2001 Zoster vaccine (1 of 2) 11/25/2011 Advance Directive 2016 Breast Cancer screening 06/30/2020 06/30/2018 Colonoscopy 10/06/2021 10/07/2011, 09/09, 09/23/2011, Additional history exists Colorectal Cancer Screening 10/06/2021 Sigmoidoscopy (10 year) with FIT yearly 10/06/2021 10/07/2011, 10/07/2011, 09/23/2011, Additional history exists RSV Vaccine (1 - Risk 60-74 years 1-dose series) 2021 HPV test 2023 11/23/2018 PAP Smear 2023 11/23/2018, 01/16/2016 Covid-19 Vaccine (1 - 2023-2 5 season) 2024 Influenza (Flu) vaccine (1 o f 1 - Influenza standard series) 01/10/2024 02/16/2020, 01/07/2019, 01/07/2019, Additional history exists Lipid Screening 02/09/2024 02/08/2019, 01/09, 11/15/2015 Tetanus/Diphtheria/Pertussis Vaccines (3 - Td or Tdap) 10/23/2025 10/24/2015, 09/05/2011 Diabetes Screening (HgbA1C o r Glucose) 11/19/2025 11/19/2022, 09/13/2021, 09/12/2021, Additional history exists Medical Devices Implanted Type Area Director Of Recreation Therapy Device Identifier Shelf Expiration Date Model / Serial / Lot Mesh,Ventra,St ,Echo2,11cm ([id number]) (Autoreq) - [id number] Implanted:Qty: 1 on 07/12/2018 by Izzy Blanco MD at [facility] IMPLANTS N/A: Abdomen CR BARD INC - CR BARD 03/07/2019 [id number] / / [id number] Pump,Sync,Ii, (2671220) (Autoreq) - [id number] Implanted:Qty: 1 on 03/23/2019 by Karl Becker MD at [facility] IMPLANTS Right: Abdomen Cymax INC - Next Step LivingTRONIC 07/08/2020 8637-40 / [id number] / 0 Description:PREVIOUS PAIN PUMP EMPTIED 10ML OF MEDICATION FROM THE PAIN PUMP DISCARDED. PREVIOUS PAIN PUMP DISCARED IN SHARPS CONTAINER PER MD AND HOSPITAL POLICY Seala,Dura,Spi ne,Ext,3ml (9089373) - [id number] Implanted:Qty: 1 on 03/23/2019 by Karl Becker MD at [facility] IMPLANTS N/A: Abdomen DO NOT USE Illumix Software - INTEGRA LI 06/10/2020 206-320 / / [id number] Kit,Sync,Myptm ,Pt,Progrmr (1649833) (Autoreq) - [id number] Implanted:Qty: 1 on 03/23/2019 at [facility] IMPLANTS Abdomen MEDTRONIC [place] INC - MEDTRONIC [id number] / / Cement Bone Medium Viscosity 40gm Single Dose Pmma Smartset (2107954) (Autoreq) - [id number] Implanted:Qty: 1 on 03/29/2020 by Maykel Jacobson MD at [facility] IMPLANTS Left: Knee [facility] [id number] 08/08/2021 3122-040 / / [id number] Insert Tibial 10mm Sz 4 Left Fix Poly Gmk (9991666) (Autoreq) - [id number] Implanted:Qty: 1 on 03/29/2020 by Maykel Jacobson MD at [facility] IMPLANTS Left: Knee MEDACTA [place] - MEDACTA [place] [id number] 01/11/2023 02.12.041 0FL / / [id number] Comp Patellar Knee 34mm Sz 2 Heath Resurfacing Uhmwpe (8980612) (Autoreq) - [id number] Implanted:Qty: 1 on 03/29/2020 by Maykel Jacobson MD at [facility] IMPLANTS Left: Knee [employer]A [place] - MEDACT[employer] [place] [id number] 11/14/2024 02.07.003 4RP / / [id number] Comp Femoral Knee Sz 4 Left Heath Sphere Cocr (8625081) (Autoreq) - [id number] Implanted:Qty: 1 on 03/29/2020 by Maykel Jacobson MD at [facility] IMPLANTS Left: Knee [employer]A [place] - [employer]ACT[employer] [place] [id number] 08/08/2024 02.12.000 4L / / [id number] Baseplate Tibial Sz T3-I4 Left Heath Cocr Gmk (8885970) (Autoreq) - [id number] Implanted:Qty: 1 on 03/29/2020 by Maykel Jacobson MD at [facility] IMPLANTS Left: Knee [employer]ACTA [place] - MEDACTA [place] [id number] 07/20/2024 02.12.T3I 4L / / [id number] Cement Bone Medium Viscosity 40gm Gentamicin Single Dose (2249333) - [id number] Implanted:Qty: 2 on 09/10/2021 by Wayne Sanchez MD at [facility] IMPLANTS Left: Knee [facility] [id number] 02/07/2023 [id number] Femoral Component Adapter Knee 5mm Heath (4268946) (Autoreq) - [id number] Implanted:Qty: 1 on 09/10/2021 by Wayne Sanchez MD at [facility] IMPLANTS Left: Knee [employer]A [place] - MED[employer] [place] [id number] 03/18/2026 02.07.000 Baseplate Tibial Sz 2 Left Heath Cocr Gmk (7199832) (Autoreq) - [id number] Implanted:Qty: 1 on 09/10/2021 by Wayne Sanchez MD at [facility] IMPLANTS Left: Knee [employer]ACTA [place] - [employer] [place] [id number] 04/29/2025 02.07.068 2L / / [id number] Stem Ext Knee 21z651fv Por Fluted Cocr (1249950) (Autoreq) - [id number] Implanted:Qty: 1 on 09/10/2021 by Wayne Sanchez MD at [facility] IMPLANTS Left: Knee [employer]ACTA [place] - MEDACT[employer] [place] [id number] 11/01/2025 02.07.FCL 43719 / / [id number] Stem Ext Knee 56s272sn Por Fluted Cocr (6079615) (Autoreq) - [id number] Implanted:Qty: 1 on 09/10/2021 by Wayne Sanchez MD at [facility] IMPLANTS Left: Knee [employer] [place] - MED[employer] [place] [id number] 11/12/2025 02.07.FCL 24932 / / [id number] Augment Wedge Fem Knee 4mm Size 3 Dist Ti Gmk (3790790) (Autoreq) - [id number] Implanted:Qty: 1 on 09/10/2021 by Wayne Sanchez MD at [facility] IMPLANTS Left: Knee [employer]ACTA [place] - MEDACTA [place] [id number] 07/22/2025 02.07.304 FDW / / [id number] Augment Wedge Fem Knee 4mm Size 3 Dist Ti Gmk (0445128) (Autoreq) - [id number] Implanted:Qty: 1 on 09/10/2021 by Wayne Sanchez MD at [facility] IMPLANTS Left: Knee [employer]ACTA [place] - MEDACTA [place] [id number] 10/22/2025 02.07.304 FDW / / [id number] Comp Femoral Knee Sz 2 Left Heath Ps Cocr (4426376) (Autoreq) - [id number] Implanted:Qty: 1 on 09/10/2021 by Wayne Sanchez MD at [facility] IMPLANTS Left: Knee [employer]ACTA [place] - MEDACTA [place] [id number] 02/18/2025 02.07.240 3L / / [id number] Insert Tibial 14mm Sz 2 Fix Poly Gmk (7423054) (Autoreq) - [id number] Implanted:Qty: 1 on 09/10/2021 by Wayne Sanchez MD at [facility] IMPLANTS Left: Knee MEDACTA [place] - MEDACTA [id number] 03/21/2023 02.07.021 4SCF / / [id number] Medacta Patella Size 2 E-Cross Implanted:Qty: 1 on 09/10/2021 by Wayne Sanchez MD at [facility] Left: Knee MEDACTA [place] - MEDACTA [id number] 09/14/2024 02.12.E00 2RP / / [id number] Procedures Procedure Name Priority Date/Time Associated Diagnosis Comments FILM LIBRARY STORAGE ONLY PAIN CLINIC C ARM Routine 03/04/2024 4:26 PM EDT Anal Inf Structural Biologist W ReproRefil([id number]) 03/04/2024 2:00 PM EDT Postlaminectomy syndrome of lumbar region Presence of intrathecal pump ELECTRONIC HERNANDEZ PROG., PUMP- DRUG INFUS; W/ REPROGRAM & REFILL REQ Routine 03/04/2024 1:40 PM EDT Postlaminectomy syndrome of lumbar region Presence of intrathecal pump HEMOGLOBIN A1C Routine 11/19/2022 5:36 PM EDT Osteoporosis, unspecified osteoporosis type, unspecified pathological fracture presence Obesity, unspecified classification, unspecified obesity type, unspecified whether serious comorbidity present LIPID PANEL (REFLEX DIRECT LDL) Routine 02/08/2019 7:09 AM EDT HPV Routine 11/23/2018 12:00 PM EDT HOTEL NIGHT AUDITOR CYTOLOGY FINAL REPORT Routine 11/23/2018 12:00 PM EDT MAMMO SCREENING CAD AND ISAAC BILATERAL Routine 06/30/2018 10:44 AM EST Encounter for screening mammogram for breast cancer COLONOSCOPY Routine 10/07/2011 3:56 PM EDT from Last 3 Months or Most Recently Relevant to Health Maintenance Results * Film Library- Storage Only pain Clinic C-Arm (03/04/2024 4:26 PM EDT) Narrative [facility] - 03/04/2024 4:26 PM EDT See PACS for result report. Cadence Eric MD IMG FILM LIBRARY ORDERABLES [place], [place] * (ABNORMAL) Hemoglobin A1c (11/19/2022 5:36 PM EDT) Hemoglobin A1c 5.8(H) 4.3 - 5.6 % [facility] Comment: Reference Range: 4.3 - 5.6% 5.7 - 6.4% - Increased Risk of Developing Diabetes Mellitus >= 6.5% - Consistent with diagnosis of Diabetes Mellitus In the absence of hyperglycemia (i.e. plasma glucose > 200 mg/dL) or classic symptoms of hyperglycemia a repeat measurement of HbA1c should be performed on a separate sample to confirm the diagnosis. Diagnosis and Classification of Diabetes Mellitus, Diabetes Care 2013; 36: Suppl. 1, I57-41 Estimated Average Glucose 119 mg/dL [facility] Comment: eAG equivalents for HbA1c percentages: HbA1c(%) ?eAG(mg/dL) 6.0 ?126 6.5 ?140 7.0 ?154 7.5 ?169 8.0 ?183 8.5 ?197 9.0 ?212 9.5 ?226 10.0 ? 240 Limitations: The eAG calculation has not been validated on women, individuals below 18 years old and above 70 years old, and individuals with hemoglobinopathies. Additional resources are available on the ADA website. Koffi REYES, Radha J, Lucas R, et al. ??Translating the A1C assay into estimated average glucose values. ??Diabetes Care 2008:31(8):4739-2792. Blood 11/19/2022 5:36 PM EDT 11/19/2022 5:46 PM EDT Narrative Resulting Agency Comment Spec In Lab Dawson Omalley MD CHEMISTRY ORDERABLES Performing Organization Address City/State/[facility] Co de Phone Number [facility] [place] [address] * (ABNORMAL) Lipid Panel (Reflex Direct LDL) (02/08/2019 7:09 AM EDT) Lipid Interpretation See Note(Exte rnal Lab) [facility] CONVERSION LDL Cholesterol 77(Assayer al Lab) mg/dL [facility] CONVERSION HDL Cholesterol 67(Assayer al Lab) mg/dL [facility] CONVERSION Triglyceride 54(Assayer al Lab) mg/dL [facility] CONVERSION Cholesterol/HDL Ratio 2.3(Exter nal Lab) ratio [facility] CONVERSION Cholesterol, Total 155(Exter nal Lab) mg/dL [facility] CONVERSION 02/08/2019 7:09 AM EDT Results Provider Nlh Conversion MD OCTAVIO GODINEZ ORDERABLES Performing Organization Address City/[facility] Co de Phone Number [facility] CONVERSION * HPV (11/23/2018 12:00 PM EDT) HPV16 NEGATIVE NEGATIVE [facility] HPV 18 NEGATIVE NEGATIVE [facility] HPV Other HR NEGATIVE NEGATIVE [facility] HPV Interpretation See Comment [facility] Comment: NEGATIVE for high-risk HPV *. * Testing negative for high risk HPV means that the specimen is negative for the following 14 types tested: ??types 16, 18, 31, 33, 35, 39, 45, 51, 52, 56, 58, 59, 66, and 68. ??The test is not intended to detect low risk HPV types. Basia Maria L HPV test Specimen: HPV Testing - Cytology Liquid Based Prep Cervical swab (specimen) 11/23/2018 12:00 PM EDT 11/23/2018 10:14 PM EDT Narrative Resulting Agency Comment Spec In Lab / [facility] Iris Vu MD PATHOLOGY/CYTOLOGY O RDERABLES Performing Organization Address [facility] Co de Phone Number [facility] [place] [address] * [facility] Final Report (11/23/2018 12:00 PM EDT) [facility] Final Report [id number] ? Location: [facility] The signing pathologist has (i) examined the relevant preparation(s) for the specimen(s) and (ii) rendered or confirmed the diagnosis(es). . ? [place] Final DIAGNOSIS Normal Negative for intraepithelial lesion or malignancy (NILM). For consensus guidelines for the management of cervical cancer screening test results, please see: ?? http://www.asccp.o rg . Electronically signed by: ??Nirmal CT(ASCP), Tala E Verified: ??11/26/2018 ?Manager Residential Performed at: ??-[facility] Dept. [place], [place], [place] HPV RESULTS HPV16 (Result) ?Negative HPV18 (Result) ?Negative HPVOHR (Result) ? Negative HPV (Interpretation) ?See Below HPV (Interpretation) Text: NEGATIVE for high-risk HPV *. *Testing negative for high risk HPV means that the specimen is negative for the following 14 types tested: types 16, 18, 31, 33, 35, 39, 45, 51, 52, 56, 58, 59, 66, and 68. The test is not intended to detect low risk HPV types. Basia maria l HPV test Specimen: HPV Testing - Cytology Liquid Based Prep The Basia maria l ? HPV test was validated, performed and results reported through the [facility] ([facility]) at [facility]. ? - Nestor Sexotn, PhD, [facility], Director-[facility] STATEMENT OF ADEQUACY Specimen submitted is satisfactory. Endocervical component present. CLINICAL INFORMATION HPV Option: ? Concurrent HPV CT/NG Option: ??(not provided) Preparation: ?Liquid Based Pap Specimen Source: ?Cervical/LBP LMP: ?age 49 Hormones?: ?No Hysterectomy?: ?No ?: ?No ?: ?No I.U.D.?: ?No Pelvic Radiation: ? No Prior HOTEL NIGHT AUDITOR Therapy?: ? No Hist Abnl Pap/Biopsy?: ??No Hist of HPV Vaccine?: ?? No Hist of Smoking?: ? Yes Hist of RIANA exposure?: ??No Clinical Data, Significant Therapy and Clinical Impression ?? : ?? _ . CLINICAL INFORMATION Referring Identifier: ?[id number] This Pap Test has been evaluated with the assistance of the BiOWiSHPrep Pap Test Imaging System. Note: The Pap test is a screening test for cervical cancer with an inherent false-negative rate dependent upon several variables. For further information please contact the [facility]. Reference: Jose Antonio MAYER. Equity Manager of Pap Smear Results. In: Antonia BS, Eliseo HH, ed. ??The Pap Smear. [place]: Gonzalez, 2002: 71-77. [facility] 11/23/2018 12:0 0 PM EDT Narrative Resulting Agency Comment Spec In Lab / [facility] Iris Vu MD PATHOLOGY/CYTOLOGY O RDERABLES [facility] [place] [address] * Mammo Screening Cad and Isaac Bilateral (06/30/2018 10:44 AM EST) Anatomical Region Laterality Modality Breast Bilateral Mammography Narrative 06/30/2018 11:10 AM EST BILATERAL MAMMOGRAPHY REASON FOR EXAM: Screening TECHNIQUE: CC and MLO views were obtained of each breast using standard 2-D mammography as well as 3-D tomosynthesis. Computer aided detection was used. This is compared with prior images. FINDINGS: ??The breasts are almost entirely fatty. There are no suspicious microcalcifications, masses, or areas of distortion. The pattern is stable. CONCLUSION: No mammographic evidence of malignancy. RECOMMENDATION: Medical organizations agree that annual screening mammography beginning at age 40 saves the most lives. The risks of screening are negligible compared to dying from breast cancer or suffering from more aggressive treatment required when detected at a later stage. No woman is at low risk for breast cancer. Some women, because of their family history, a genetic tendency, or certain other factors, should be screened with breast MRI along with mammograms. (The number of women who fall into this category is very small). The patient and health care provider should discuss the patient history and decide if earlier screening and breast MRI are appropriate. Screening should continue as long as a woman is in good health and is expected to live 10 years or longer. Screening mammography may not detect 10-15% of breast cancers. Women should report any breast changes to a health care provider right away. A result letter has been sent to this patient by the [facility]. BIRADS CATEGORY 1: NEGATIVE Bob Day MD IMG MAMMO ORDERAB LES * COLONOSCOPY (10/07/2011 3:56 PM EDT) Pathologist [facility] COLONOSCOPY [facility] Endoscopy Patient Name: Etelvina Cuadra ? Procedure Date: 10/07/2011 3:56 PM ? Date of : 1960 ? Age: 50 ? Order #: [id number] ? Procedure: ? Colonoscopy Indications: ? Screening for colorectal malignant ? neoplasm Patient Profile: ? chronic pain, hypercholesterolem ia, ? depression, hypthyroidism, disc ? disease, back and knee surgery, s/p ? tubal ligation Providers: ? Mallika Whitney MD, Arlene Boone, ? RN, Chana Miller RN, Jero Rosario. ? MD Lynn Referring : ?Mari Sewell MD Medicines: ? propofol per anesthesia Complications: ? No immediate complications. Procedure: ? Pre-Anesthesia Assessment: ? - Prior to the procedure, a History ? and Physical was performed, and ? patient medications, allergies and ? sensitivities have been reviewed. The ? patient's tolerance of previous ? anesthesia has been reviewed. ? - The risks and benefits of the ? procedure and the sedation options ? and risks were discussed with the ? patient. All questions were answered ? and informed consent was obtained. ? - Airway Examination: normal ? oropharyngeal airway and neck ? mobility. ? - Respiratory Examination: clear to ? auscultation. ? - CV Examination: normal. ? - ASA Grade Assessment: II - A ? patient with mild systemic disease. ? - After reviewing the risks and ? benefits, the patient was deemed in ? satisfactory condition to undergo the ? procedure. ? - Anesthesia using IV propofol was ? determined to be medically necessary ? for this procedure based on patient's ? dependence on opiates, sedatives or ? hypnotics. ? The procedure, indications, benefits, ? risks and alternatives were explained ? to the patient. Specifically ? discussed were potential ? complications including, but not ? limited to, bleeding, perforation, ? infection, missing a cancer, and ? adverse medication reactions. The ? patient was placed in the left ? lateral decubitus position, and a ? digital rectal exam was performed. ? The Colonoscope was inserted in the ? anus and under direct visualization, ? advanced to the terminal ileum, with ? identification of the appendiceal ? orifice and IC valve. Careful ? inspection was made as the ? colonoscope was withdrawn. The ? quality of the bowel preparation was ? fair, with a large volume of yellow ? liquid extensively washed and ? aspirated throughout the colon to ? allow adequate visualzation. There ? was also increased motility with pt ? continuously passing air throughout ? the procedure making insufflation ? more difficult although this was ? overcome by an extended withdrawal ? and the usual maneuvers to contain ? air. ? Findings: ? A benign appearing sessile polyp was found in the ? rectum. The polyp was 2 mm in size. The polyp was ? removed with a cold biopsy forceps. Resection and ? retrieval were complete. Estimated blood loss was ? minimal. ? Impression: ?- Preparation of the colon was fair. ? - One 2 mm polyp in the rectum. ? Resected and retrieved. Recommendation: ?- Repeat colonoscopy in 5 years for ? screening purposes (even if polyp not ? TA, prep was fair as noted). ? - Return to primary care physician. ? Attending Participation: ? I was present and participated during the entire ? procedure, including non-oquendo portions. ? _ Mallika Whitney MD 10/07/2011 5:54 PM ? _ Mallika Whitney MD 10/07/2011 5:54 PM Number of Addenda: 0 Note Initiated On: 10/07/2011 3:56 PM PROVATION 10/07/2011 3:56 PM EDT Mari Sewell MD GENERAL SURGICAL ORD ERABLES PROVATION from Last 3 Months or Most Recently Relevant to Health Maintenance Advance Directives Documents on File Type Date Recorded Patient Auto Tire Recapper Expl anation Personal Auto Tire Recapper 02/22/2020 11:45 AM KD Personal Auto Tire Recapper 09/04/2021 1:10 PM * Attempt Cardiopulmonary Resuscitation - Inpatient (Latest Code Status on File) Date Activated Date Inactivated Comments 09/10/2021 5:29 PM 09/14/2021 2:54 PM Question Answer Comments Code Status decision made by: Patient * Attempt Cardiopulmonary Resuscitation - Inpatient Date Activated Date Inactivated Comments 03/29/2020 7:07 PM 04/01/2020 5:40 PM Question Answer Comments Code Status decision made by: Patient * Full Code Date Activated Date Inactivated Comments 03/23/2019 7:05 AM 03/24/2019 3:19 PM Question Answer Comments Does patient have capacity to make decision: Yes * Full Code Date Activated Date Inactivated Comments 07/12/2018 10:09 AM 07/15/2018 5:47 PM Question Answer Comments Does patient have capacity to make decision: Yes * Full Code Date Activated Date Inactivated Comments 07/12/2018 8:22 AM 07/12/2018 10:09 AM Question Answer Comments Does patient have capacity to make decision: Yes Care Teams Rig Superintendent Relationship Specialty Start Date End Date Ja Ordaz MD [address] [place] [address] PCP - General Emergency Medicine 03/11/21
--- OUTSIDE RECORDS SUMMARY | 2024-04-05 16:21 | XMS_ITS | Encounter Summary ---
Author Organization [facility] [place] [address] Care Team Providers Care Wood Box Maker Name Role Phone Ja Ordaz MD Primary Care Provider [phone] Encounter Details Date Type Department Care Team (Late st Contact Info) Description 04/01/2024 Telephone [facility] [place] [address] Leanna Dent Social History Tobacco Use Types Packs/Day Years [...] encounter Miscellaneous Notes * Telephone Encounter - Leanna Dent - 04/01/2024 9:48 AM EST Called to advise patient of next pump refill on 06/10/23. Patient ok with that date documented in this encounter Plan of Treatment Upcoming Encounters Date Type Department Care Team (Latest Contact Info) Description 04/06/2024 11:30 AM EST Hospital Encounter [place] [address] Cadence Eric MD [facility] [place] [address] 04/06/2024 11:30 AM EST - 04/06/2024 12:50 PM EST Surgery [place] [address] Cadence Eric MD [facility] [place] [address] IMPLANT NEUROSTIMULATOR ELECTRODES, PERIPHERAL NERVE (WRVU 5.76) 04/14/2024 2:30 PM EST Office Visit [facility] [place] [phone] aCdence Eric MD [facility] [place] [address] Scheduled Procedures Name Priority Associated Diagnoses Date/Ti [...] on filedocumented in this encounter Care Teams Wood Box Maker Relationship Specialty Start Date End Date Ja Ordaz MD [address] [place] [id number] PCP - General Emergency Medicine 03/11/21 documented as of this encounter
--- OUTSIDE RECORDS SUMMARY | 2024-04-05 16:22 | XMS_ITS | Encounter Summary ---
Author Organization [facility] Address [facility] [place] [address] Care Team Providers Care Clinical Review Specialist Name Role Phone Ja Ordaz MD Primary Care Provider [phone] Encounter Details Date Type Department Care Team (Latest Contact Info) Description 09/04/2023 10:38 AM EDT - 09/04/2023 11:31 AM EDT Hospital Encounter [place] [address] [facility] [place] [address] Postlaminectomy syndrome of lumbar region Discharge Disposition: Home Social History Tobacco Use Types Packs/Day Years Used Date Smoking Tobacco: Former Cigarettes Q uit: 09/23/1991 Smokeless Tobacco: Never Alcohol Use Standard Drinks/Week Comments No 0 (1 standard drink = 0.6 oz pur e alcohol) Sex and Gender Information Value Date Recorded Sex Assigned at Not on file Gender Identity Not on file Sexual Orientation Not on file documented as of this encounter Last Filed Vital Signs Vital Sign Reading Time Taken Comments Blood Pressure 142/70 09/04/2023 10:52 AM EDT Pulse 65 09/04/2023 10:52 AM EDT Temperature - - Respiratory Rate 14 09/04/2023 10:52 AM EDT Oxygen Saturation 100% 09/04/2023 11:20 AM EDT Inhaled Oxygen Concentration - - Weight 108 kg (238 lb) 09/04/2023 10:52 AM EDT Height 149.9 cm (4' 11) 09/04/2023 10:52 AM EDT Body Mass Index 48.07 09/04/2023 10:52 AM EDT documented in this encounter Medications at Time of Discharge Medication Sig Dispensed Refills Start Date End Date amoxicillin (Amoxil) 500 mg tablet Take 4 tablets by mouth once as needed. Take 2 g (4 tablets) one hour prior to dental procedures 20 tablet 01/21/2023 magnesium hydroxide (CASTELLON MILK OF MAGNESIA ORAL) Take by mouth as needed. baclofen (Lioresal) 10 mg tablet Take 10 mg by mouth 2 times daily as needed. 12/04/2022 oxyCODONE (Roxicodone) 15 mg tablet Take 15 mg by mouth 3 times daily as needed for Pain. EPINEPHrine 0.3 mg/0.3 mL Auto-Injector 05/26/2022 citalopram (CeleXA) 20 mg Tablet Take 20 mg by mouth nightly. levothyroxine (Synthroid) 100 mcg Tablet Take 1 tablet by mouth daily. PATIENT REQUESTS SYNTHROID(NOT GENERIC) 90 tablet 1 08/01/2020 fenofibrate (TRIGLIDE) 160 mg Tablet Take 1 tablet by mouth nightly. 90 tablet 1 07/26/2020 epinephrine HCl/PF (EPINEPHrine, pf,) 1 mg/mL (1:1,000) Solution Inject as directed. calcium carbonate-vitamin D3 (Os-Nico 500 + D3) 500mg (1,250mg) -600 unit Tablet Take 1 tablet by mouth Daily. 01/16/2016 Bifidobacterium infantis (ALIGN) 4 mg Capsule Take by mouth daily. 2 gummies daily=4MG NARCAN 4 mg/actuation [place], Non-Aerosol instill 1 spray in 1 NOSTRIL if needed for opioid overdose may re... (REFER TO PRESCRIPTION NOTES). 0 12/08/2018 multivitamin with minerals Tablet Take 1 tablet by mouth daily. morphine sulfate/D5W (MORPHINE IN D5W) 1 mg/mL Prefilled Pump G. L. Garcia Inject as directed. Has intrathecal pump with continuous rate and Has 5 preset prn boluses pt may give herself Teriparatide (Forteo) 20 mcg/dose (600mcg/2.4mL) Pen Injector Inject 0.08 mLs subcutaneously daily. 2.4 mL 11 03/24/2023 03/04/2024 tirzepatide 2.5 mg/0.5 mL Pen Injector Inject 2.5 mg subcutaneously once a week. 0.5 mL 3 03/24/2023 03/04/2024 estradioL (Vagifem) 10 mcg vaginal tablet INSERT 1 TABLET INTO VAGINA DAILY FOR 2 WEEKS THEN TWICE WEEKLY AFTER THAT 12/05/2022 03/04/2024 acetaminophen (Tylenol) 500 mg Tablet Take 2 tablets by mouth every 8 hours. 0 09/14/2021 03/04/2024 documented as of this encounter H&P Notes * Cadence Eric MD - 09/03/2023 6:18 PM EDT Patient Name: Etelvina Cuadra Patient Age: 62 y.o. Birthdate: 1960 Admit date: 09/04/2023 Attending Physician: Cadence Eric MD [facility] PREPROCEDURE HISTORY AND PHYSICAL HPI: Etelvina Cuadra is a 62 y.o. female who presents today for: Procedure: Intrathecal Pump Refill under Fluoroscopy The history is obtained from the patient, and I have reviewed medical records provided by the referring physician, located in the electronic medical record to fill in gaps in the patient's recollection of events, treatments and outcomes. ROS: Patient denies recent fever, chills, infection, wounds, hospitalizations, ED visits, use of antibiotics. Pertinent positives and negatives otherwise noted in the HPI. I have reviewed the patient's past medical history, past surgical history, list of medications, allergies, family history and social history as documented in the electronic medical record. Physical Examination: BP 142/70 (Patient Position: Sitting) Pulse 65 Resp 14 Ht 149.9 cm (4' 11) Wt 108 kg (238 lb) SpO2 99% BMI 48.07 kg/m?? Pain Ratin/10 Please see previous evaluation performed on 02/09/23, by Dr. Eric No pertinent changes are noted from previous assessment. Pulmonary/Chest: Effort normal. Skin: Skin is warm and dry. No rash noted. Not diaphoretic. Radiologic Data: Relevant imaging was reviewed today. New Imaging: None Labs: No labs required Assessment and Plan: post laminectomy syndrome Please see previous evaluation performed on 02/09/23, by Dr. Eric, for justification of medical necessity for planned Intrathecal Pump Refill under fluoroscopy . Addressed all questions and concerns. Nursing intake/checklist reviewed. Medications holds confirmed. Risks and benefits discussed with patient. No contraindications to the procedure at this time, will proceed. Argenis Jose MD Fellow Physician [facility] [place] [address] / I have seen and examined the patient and reviewed the fellow's above history and agree with the details as written. The assessment and plan were formulated in discussion with me, and I agree with them as documented. Patient lower extremity pain in the LLE s/p TKA. Over the anteromedial aspect of the lower leg and knee. Denies posterior pain or lateral pain. Orthopedics ok with proceeding. Cadence Eric MD [facility] Assisant Professor of Anesthesiology [facility] [address] [phone] / [facility] documented in this encounter Miscellaneous Notes * Op Note - Cadence Eric MD - 09/04/2023 11:00 AM EDT Pain Management Operative Note Patient Name: Etelvina Cuadra : [id number] MR#: [id number] Case Date: 09/04/2023 Surgeon: Surgeon(s) and Role: * Cadence Eric MD - Primary * Argenis Jose MD - Fellow - Assisting Present on Admission: Presence of intrathecal pump Postlaminectomy syndrome of lumbar region Postoperative diagnosis: Presence of intrathecal pump Postlaminectomy syndrome of lumbar region Procedure(s) (LRB): ELECTRONIC HERNANDEZ PROG., PUMP- DRUG INFUS; W/ REPROGRAM & REFILL REQ (WRVU 0.9) (N/A) Telemetry Pre-Refill Programming Reading: Drugs/Concentrations: Morphine 10mg/mL - Preservative Free - Daily Dose: 2.2mg with mPTM 0.2mg q3hr PRN 6/day Brand/Compound: Compound. Telemetry Post-Refill Programming Reading: Drugs/Concentrations: Morphine 10mg/mL - Preservative Free - Daily Dose: 2.2mg with mPTM 0.24mg q3hr PRN 5/day Brand/Compound: Compound. Pump Capacity: 40 mL Computer predicted residual volume in pump: 10.8 ml Measured residual volume in pump: 10 ml Medication or Dose Changes: yes Is dose change >30%? no Is concentration of drug different? no Estimated Replacement 12/03 Empty syringe concentration verified by gas and oil checker: yes If concentration of drug is different, has a bridge bolus been programmed? n/a. Has any program been used other than simple continuous or bridge bolus and simple continuous? no Infusion Mode: simple continuous. New Alarm Date: 12/25/2023 PROCEDURE: Risks and expected side effects were reviewed with patient and her voiced concerns addressed. The printed consent form was signed and witnessed. The following information was verified: Patient Name on RX: yes Drug Name on RX:yes Drug concentration on syringe containing pump refill medication: yes The procedure was done under fluoroscopic guidance, to be able to visualize pump access port. The pump was accessed via telemetry and the computer predicted residual volume was noted as per above. Then Chlorhexidine prep over the pump refill site was performed. Sterile drapes were applied as provided with the Medtronic refill kit. A 22 gauge Moraes non-coring needle supplied with the refill kit was inserted through the refill-template into the central refill port of the pump. The pump was aspirated for the above measured residual volume. This residual volume was discarded. Freshly prepared solution of the drug(s) and concentration(s) as noted above was used to refill the pump 5 ml of solution was instilled and easily withdrawn, no more and no less than 5 ml. A total of 40 ml of solution was instilled into the pump according to the crane operator cab's directions without difficulty. Therewas no evidence of over pressurization at the conclusion of the filling process. The pump access needle was withdrawn and a Band-Aid was applied. The pump was then re-accessed via telemetry and reprog rammed to indicate the refill volume of 40 ml. The unused portion of the medication was discarded along with the old drug aspirated. Battery alarms reviewed and were appropriately enabled and in working order. Patient tolerated the procedure well and was discharged from the Pain Management Center. Follow-up appointments will be arranged for refills as appropriate. I completed this procedure without assistance Cadence Eric MD [facility] Health Informatics Advisor of Anesthesiology [facility] [address] [phone] / [facility] documented in this encounter Plan of Treatment Upcoming Encounters Date Type Department Care Team (Latest Contact Info) Description 04/06/2024 11:30 AM EST Hospital Encounter [place] [address] [facility] [place] [address] 04/06/2024 11:30 AM EST - 04/06/2024 12:50 PM EST Surgery [place] [address] [facility] [place] [address] IMPLANT NEUROSTIMULATOR ELECTRODES, PERIPHERAL NERVE (WRVU 5.76) 04/14/2024 2:30 PM EST Office Visit [place] [address] [facility] [place] [address] Scheduled Procedures Name Priority Associated Diagnoses Date/Ti [...] Procedure Name Priority Date/Time Associated Diagnosis Comments Anal Inf Injury Prevention Coordinator W ReproRefil([id number]) 09/04/2023 11:05 AM EDT Postlaminectomy syndrome of lumbar region ELECTRONIC HERNANDEZ PROG., PUMP- DRUG INFUS; W/ REPROGRAM & REFILL REQ Routine 09/04/2023 10:44 AM EDT Postlaminectomy syndrome of lumbar region documented in this encounter Visit Diagnoses Diagnosis Postlaminectomy syndrome of lumbar region Postlaminectomy syndrome, lumbar region Presence of intrathecal pump Saphenous neuralgia, right documented in this encounter Admitting Diagnoses Diagnosis Postlaminectomy syndrome of lumbar region Postlaminectomy syndrome, lumbar region documented in this encounter Care Teams Clinical Review Specialist Relationship Specialty Start Date End Date Ja Oradz MD [address] [place] [address] PCP - General Emergency Medicine 03/11/21 documented as of this encounter
--- OUTSIDE RECORDS SUMMARY | 2024-04-05 16:22 | XMS_ITS | Encounter Summary ---
Author Organization [facility] Address [facility] [place] [address] Care Team Providers Care Crm Campaign Manager Name Role Phone Ja Ordaz MD Primary Care Provider [phone] Encounter Details Date Type Department Care Team (Late st Contact Info) Description 11/16/2023 10:00 AM EDT Ancillary [place] [phone] Cadence Eric MD [facility] [place] [address] Social History Tobacco Use Types Packs/Day Years [...] AM EST Hospital Encounter [place] [phone] Cadence Eric MD [facility] [place] [address] 04/06/2024 11:30 AM EST - 04/06/2024 12:50 PM EST Surgery [place] [place] [address] Cadence Eric MD [facility] [place] [address] IMPLANT NEUROSTIMULATOR ELECTRODES, PERIPHERAL NERVE (WRVU 5.76) 04/14/2024 2:30 PM EST Office Visit [place] [address] Cadence Eric MD [facility] [place] [address] Scheduled Procedures Name Priority Associated Diagnoses Date/Ti [...] STORAGE ONLY PAIN CLINIC C ARM Routine 11/16/2023 3:27 PM EDT documented in this encounter Results * Film Library- Storage Only pain Clinic C-Arm (11/16/2023 3:27 PM EDT) Narrative [facility] - 11/16/2023 3:27 PM EDT See PACS for result report. Cadence Eric MD IMG FILM LIBRARY ORDERABLES [place], [place] documented in this encounter Visit Diagnoses Not on filedocumented in this encounter Care Teams Crm Campaign Manager Relationship Specialty Start Date End Date Ja Ordaz MD [address] [place] [address] PCP - General Emergency Medicine 03/11/21 documented as of this encounter
--- OUTSIDE RECORDS SUMMARY | 2024-04-05 16:22 | XMS_ITS | Encounter Summary ---
Author Organization [facility] Address [facility] [place] [address] Care Team Providers Care Bobbin Painter Name Role Phone Ja Ordaz MD Primary Care Provider [phone] Reason for Visit * Auth/Cert (Routine) Specialty Diagnoses / Procedures Referred By Conttom t Referred To Contact Diagnoses Post laminectomy syndrome Procedures PRO ELECTRONIC PUMP ANALYSIS W REPROGRAMMING AND REFILL BY /OXYGEN PLANT OPERATOR ELECTRONIC HERNANDEZ PROG., PUMP- DRUG INFUS; W/ REPROGRAM & REFILL REQ (WRVU 0.9) Cadence Eric MD [facility] [place] [address] [facility] Referral ID Status Reason Start Date Expiration Date Visits Re quested Visits Authorized [id number] 1 1 Encounter Details Date Type Department Care Team (Latest Contact Info) Description 05/22/2023 10:34 AM EST - 05/22/2023 11:39 AM EST Hospital [place] [address] Cadence Eric MD [facility] [place] [address] Postlaminectomy syndrome of lumbar region; Presence of intrathecal pump Discharge Disposition: Home Social History Tobacco Use [...] Sign Reading Time Taken Comments Blood Pressure 157/64 05/22/2023 10:40 AM EST Pulse 71 05/22/2023 10:40 AM EST Temperature - - Respiratory Rate - - Oxygen Saturation 95% 05/22/2023 11:20 AM EST Inhaled Oxygen Concentration - - Weight - - Height - - Body Mass Index - - documented in this encounter Medications at Time [...] daily. 2 gummies daily=4MG NARCAN 4 mg/actuation [place], Non-Aerosol instill 1 spray in 1 NOSTRIL if needed for opioid overdose may re... (REFER TO PRESCRIPTION NOTES). 0 12/08/2018 multivitamin with minerals Tablet Take 1 tablet by mouth daily. morphine sulfate/D5W (MORPHINE IN D5W) 1 mg/mL Prefilled Pump [place] Inject as directed. Has intrathecal pump with [...] as of this encounter H&P Notes * Ronald Bang DO - 05/22/2023 10:53 AM EST Patient Name: Etelvina Cuadra Patient Age: 62 y.o. Birthdate: 1960 Admit date: (Not on file) Attending Physician: Cadence Eric MD [facility] PREPROCEDURE HISTORY AND PHYSICAL HPI: Etelvina Cuadra is a 62 y.o. female who presents today for: Procedure: Intrathecal Pump Refill The history is obtained from the patient, and I have reviewed medical records provided by the referring physician, located in the electronic medical record to fill in gaps in the patient's recollection of events, treatments and outcomes. There have been no acute changes in the patients complaints or symptoms since previous assessment on 02/09/23. Pre-procedure VAS: 4/10 ROS: Patient denies recent fever, chills, infection, wounds, hospitalizations, ED visits, use of antibiotics. Pertinent positives and negatives otherwise noted in the HPI. I have reviewed the patient's past medical history, past surgical history, list of medications, allergies, family history and social history as documented in the electronic medical record. Physical Examination: Please see previous evaluation performed on 02/09/23, by Dr. Eric. Constitutional: Pt oriented to person, place, and time. Appears well-developed and well-nourished. No distress. HENT: Normocephalic and atraumatic. Pulmonary/Chest: Effort normal. Neurological: Alert and oriented to person, place, and time. No cranial nerve deficit. Moves all extremities at least antigravity. = Skin: Skin is warm and dry. No rash noted. Not diaphoretic. Psychiatric: Normal mood and affect. Radiologic Data: Relevant imaging was reviewed today. New Imaging: NA Labs: No labs required Assessment and Plan: Post laminectomy syndrome Please refer to the previous assessment by Dr. Eric, on 02/09/23, for justification of medical necessity for planned Intrathecal Pump Refill . Addressed all questions and concerns. Nursing intake/checklist reviewed. Medications holds confirmed. Risks and benefits discussed with patient. No contraindications to the procedure at this time, will proceed. Ronald Bang DO Fellow Physician [facility] [place] [address] / documented in this encounter Miscellaneous Notes * Op Note - Cadence Eric MD - 05/22/2023 11:07 AM EST Pain Management Operative Note Patient Name: Etelvina Cuadra : [id number] MR#: [id number] 05/22/23 Surgeon: Surgeon(s) and Role: * Cadence Eric MD - Primary * Ronald Bang DO - Fellow - Assisting Present on Admission: Postlaminectomy syndrome of lumbar region Postoperative diagnosis: Postlaminectomy syndrome of lumbar region Procedure(s) (LRB): ELECTRONIC HERNANDEZ PROG., PUMP- DRUG INFUS; W/ REPROGRAM & REFILL REQ (WRVU 0.9) (N/A) INTRATHECAL PUMP REFILL PROCEDURE NOTE WITH REPROGRAMMING Reason for Reprogramming:To refill pump Diagnosis: Postlaminectomy Syndrome Telemetry Pre-Refill Programming Reading: Drugs/Concentrations: Morphine 10mg/mL - Preservative Free - Daily Dose: 2.2mg with mPTM 0.24 mg q3hr PRN 5/day Brand/Compound: Compound. Telemetry Post-Refill Programming Reading: Drugs/Concentrations: Morphine 10mg/mL - Preservative Free - Daily Dose: 2.2mg with mPTM 0.24mg q3hr PRN 5/day Brand/Compound: Compound. Pump Capacity: 40 mL Computer predicted residual volume in pump:10.8 ml Measured residual volume in pump: 12 ml Medication or Dose Changes: yes Is dose change >30%? no Is concentration of drug different? no Estimated Replacement 12/03 Empty syringe concentration verified by gauge checker: yes If concentration of drug is different, has a bridge bolus been programmed? n/a. Has any program been used other than simple continuous or bridge bolus and simple continuous? no Infusion Mode: simple continuous. New Alarm Date: 09/11/23 PROCEDURE: Risks and expected side effects were [...] instilled into the pump according to the recoater's directions without difficulty. Therewas no evidence of [...] be arranged for refills as appropriate. I have seen and examined the patient and reviewed the fellow's above history and I agree with the details as written. I was the attending physician supervising the fellow in the above care and I was present for the oquendo components of the procedure. Cadence Eric MD [facility] Assisant Professor of Anesthesiology [facility] [address] [address] / [facility] documented in this encounter Plan of Treatment Upcoming Encounters Date Type Department Care Team (Latest Contact Info) Description 04/06/2024 11:30 AM EST Hospital Encounter [place] [address] Cadence Eric MD [facility] [place] [address] 04/06/2024 11:30 AM EST - 04/06/2024 12:50 PM EST Surgery [place] [address] Cadence Eric MD [facility] [place] [address] IMPLANT NEUROSTIMULATOR ELECTRODES, PERIPHERAL NERVE (WRVU 5.76) 04/14/2024 2:30 PM EST Office Visit [facility] [place] [address] Cadence Eric MD [facility] [place] [address] Scheduled Procedures Name Priority Associated Diagnoses Date/Ti [...] Priority Date/Time Associated Diagnosis Comments Anal Inf Agronomy Specialist W ReproRefil([id number]) 05/22/2023 11:02 AM EST Postlaminectomy syndrome of lumbar region Presence of intrathecal pump ELECTRONIC HERNANDEZ PROG., PUMP- DRUG INFUS; W/ REPROGRAM & REFILL REQ MD Routine 05/22/2023 10:35 AM EST Postlaminectomy syndrome of lumbar region Presence of intrathecal pump documented in this encounter Visit Diagnoses Diagnosis Postlaminectomy syndrome of lumbar region- Primary Postlaminectomy syndrome, lumbar region Presence of intrathecal pump Saphenous neuralgia, right documented in this encounter Care Teams Bobbin Painter Relationship Specialty Start Date End Date Ja Ordaz MD [address] [place] [address] PCP - General Emergency Medicine 03/11/21 documented as of this encounter
--- OUTSIDE RECORDS SUMMARY | 2024-04-05 16:22 | XMS_ITS | Encounter Summary ---
Author Organization [facility] Address [facility] [place] [address] Care Team Providers Care Printing Pressman Name Role Phone Ja Ordaz MD Primary Care Provider [phone] Encounter Details Date Type Department Care Team (Late st Contact Info) Description 09/04/2023 11:00 AM EDT Ancillary [place] [phone] Cadence Eric MD [facility] [place] [address] Social History Tobacco Use Types Packs/Day Years [...] AM EST Hospital Encounter Outpatient [place] [phone] Cadence Eric MD [facility] [place] [address] 04/06/2024 11:30 AM EST - 04/06/2024 12:50 PM EST Surgery Outpatient [place] [address] Cadence Eric MD [facility] [place] [address] IMPLANT NEUROSTIMULATOR ELECTRODES, PERIPHERAL NERVE (WRVU 5.76) 04/14/2024 2:30 PM EST Office Visit [facility] [place] [address] Cadence Eric MD [facility] [place] [address] Scheduled Procedures Name Priority Associated Diagnoses Date/Ti [...] STORAGE ONLY PAIN CLINIC C ARM Routine 09/04/2023 3:36 PM EDT documented in this encounter Results * Film Library- Storage Only pain Clinic C-Arm (09/04/2023 3:36 PM EDT) Narrative [facility] - 09/04/2023 3:36 PM EDT See PACS for result report. Cadence Eric MD IMG FILM LIBRARY ORDERABLES [place], [place] documented in this encounter Visit Diagnoses Not on filedocumented in this encounter Care Teams Printing Pressman Relationship Specialty Start Date End Date Ja Ordaz MD [address] [place] [address] PCP - General Emergency Medicine 03/11/21 documented as of this encounter
--- OUTSIDE RECORDS SUMMARY | 2024-04-05 16:22 | XMS_ITS | Encounter Summary ---
Author Organization [facility] Address [facility] [place] [address] Care Team Providers Care Executive Advisor Name Role Phone Ja Ordaz MD Primary Care Provider [phone] Encounter Details Date Type Department Care Team (Latest Contact Info) Description 07/22/2023 12:07 PM EDT - 07/22/2023 11:59 PM EDT Hospital Encounter XRay at [address] [place] [address] Wayne Sanchez MD [facility] [place] [address] S/P TKR (total knee replacement), left Discharge Disposition: Home Social History Tobacco Use [...] on file documented as of this encounter Medications at Time of Discharge [...] daily. 2 gummies daily=4MG NARCAN 4 mg/actuation [place], Non-Aerosol instill 1 spray in 1 NOSTRIL if needed for opioid overdose may re... (REFER TO PRESCRIPTION NOTES). 0 12/08/2018 multivitamin with minerals Tablet Take 1 tablet by mouth daily. morphine sulfate/D5W (MORPHINE IN D5W) 1 mg/mL Prefilled Pump [place] Inject as directed. Has intrathecal pump with [...] 09/14/2021 03/04/2024 documented as of this encounter Plan of Treatment Upcoming Encounters Date Type Department Care Team (Latest Contact Info) Description 04/06/2024 11:30 AM EST Hospital Encounter [place] [address] Cadence Eric MD [facility] [place] [address] 04/06/2024 11:30 AM EST - 04/06/2024 12:50 PM EST Surgery [place] [address] Cadence Eric MD [facility] [place] [address] IMPLANT NEUROSTIMULATOR ELECTRODES, PERIPHERAL NERVE (WRVU 5.76) 04/14/2024 2:30 PM EST Office Visit [place] [address] Cadence Eric MD [facility] [place] [address] Scheduled Procedures Name Priority Associated Diagnoses Date/Ti [...] Procedure Name Priority Date/Time Associated Diagnosis Comments XR KNEE AP & LAT LEFT Routine 07/22/2023 12:53 PM EDT S/P TKR (total knee replacement), left documented in this encounter Results * XR Knee 1-2 Views Left (Generic) (07/22/2023 12:53 PM EDT) Anatomical Region Laterality Modality Knee Left Digital Radiogra phy Impressions 07/22/2023 4:03 PM EDT Left total knee arthroplasty complicated by osteolysis around the femoral stem. These findings can be seen in hardware loosening or infection. Thank you for letting us participate in the care of this patient. ??If you are a health care provider and have any questions regarding this report, please contact the number below. ??For patients who have questions please contact the health home health care physician that requested your imaging first. ? Electronically signed by: Ana Desir MD, [facility] ([phone]), at 07/22/2023 4:03 PM Narrative 07/22/2023 4:03 PM EDT EXAMINATION: XR KNEE 1-2 VIEWS LEFT (GENERIC) CLINICAL HISTORY: LEFT KNEE PAIN Z96.652, Presence of left artificial knee joint (as entered by ordering provider in the order requisition) TECHNIQUE: AP and lateral views of the left knee. COMPARISON: CT of the left knee 04/23/2023. FINDINGS: Status post left total knee arthroplasty. No focal soft tissue swelling or knee joint effusion. No periprosthetic fracture. Similar 3 mm lucency around the femoral stem with lateralization of the tip of the femoral stem and associated thickening of the lateral cortex of the femur. Normal alignment of the knee joint. Procedure Note Ana Desir MD - 07/22/2023 EXAMINATION: XR KNEE 1-2 VIEWS LEFT (GENERIC) CLINICAL HISTORY: LEFT KNEE PAIN Z96.652, Presence of left artificial knee joint (as entered by ordering provider in the order requisition) TECHNIQUE: AP and lateral views of the left knee. COMPARISON: CT of the left knee 04/23/2023. FINDINGS: Status post left total knee arthroplasty. No focal soft tissue swelling orknee joint effusion. No periprosthetic fracture. Similar 3 mm lucency aroundthe femoral stem with lateralization of the tip of the femoral stem andassociated thickening of the lateral cortex of the femur. Normal alignment of theknee joint. IMPRESSION Left total knee arthroplasty complicated by osteolysis around the femoralstem. These findings can be seen in hardware loosening or infection. Thank you for letting us participate in the care of this patient. If youare a health care provider and have any questions regarding this report,please contact the number below. For patients who have questions please contactthe health home health care physician that requested your imaging first. Electronically signed by: Ana Desir MD, [facility]([phone]), at 07/22/2023 4:03 PM Wayne Sanchez MD IMG DX ORDERABLES documented in this encounter Visit Diagnoses Diagnosis S/P TKR (total knee replacement), left Saphenous neuralgia, right documented in this encounter Care Teams Executive Advisor Relationship Specialty Start Date End Date Ja Ordaz MD [address] [place] [address] PCP - General Emergency Medicine 03/11/21 documented as of this encounter
--- OUTSIDE RECORDS SUMMARY | 2024-04-05 16:22 | XMS_ITS | Encounter Summary ---
Author Organization [facility] [address] Address [facility] [place] [address] Care Team Providers Care Associate Name Role Phone Ja Ordaz MD Primary Care Provider [phone] Reason for Visit * Reason Onset Date Comments Prior Authorization 06/19/2023 Encounter Details Date Type Department Care Team (Late st Contact Info) Description 06/19/2023 Tele[place] [address] Rita Cui Prior Authorization Social History Tobacco Use Types Packs/Day Years [...] encounter Miscellaneous Notes * Telephone Encounter - Rita Cui - 06/26/2023 9:20 AM EST PA Outcome: PA Appeal Appeal letter routed [phone] * Telephone Encounter - Rita Cui - 06/23/2023 7:29 AM EST Images from the original note were not included. PA Outcome: PA Denial [place] [address] DENIED: Tymlos Case/Reference #: [id number] Additional Information from Insurance: * Telephone Encounter - Rita Cui - 06/19/2023 8:29 AM EST Previous Medications Tried Medication: Tymlos - caused palpitations * Telephone Encounter - Rita Cui - 06/19/2023 8:15 AM EST Medication Prior Authorization [employer] Medication name/dose/directions: Forteo 600mcg/2.4mL - inject 20mcg daily Rationale for request: Osteoporosis (M81.0) Health plan: [employer] ([facility]) Díaz: [id number] Authorizing passenger relations representative name: Malissa Sent to health plan on: 06/19/23 documented in this encounter Plan of Treatment Upcoming Encounters Date Type Department Care Team (Latest Contact Info) Description 04/06/2024 11:30 AM EST Hospital Encounter Outpatient [place] [address] Cadence Eric MD [facility] [place] [address] 04/06/2024 11:30 AM EST - 04/06/2024 12:50 PM EST Surgery [place]patient [place] [address] Cadence Eric MD [facility] [place] [address] IMPLANT NEUROSTIMULATOR ELECTRODES, PERIPHERAL NERVE (WRVU 5.76) 04/14/2024 2:30 PM EST Office Visit [place] [address] Cadence Eric MD [facility] [place] [address] Scheduled Procedures Name Priority Associated Diagnoses Date/Ti [...] on filedocumented in this encounter Care Teams Associate Relationship Specialty Start Date End Date Ja Ordaz MD [address] [place] [address] PCP - General Emergency Medicine 03/11/21 documented as of this encounter
--- OUTSIDE RECORDS SUMMARY | 2024-04-05 16:22 | XMS_ITS | Encounter Summary ---
Author Organization [facility] [place] [address] Care Team Providers Care Maintenance Mechanic Engine Name Role Phone Ja Ordaz MD Primary Care Provider [phone] Encounter Details Date Type Department Care Team (Latest Contact Info) Description 04/29/2023 3:30 PM EST TH Visit (TeleHealth) [place] [address] Clinic, Dr Sanchez Team None S/P TKR (total knee replacement), left Social History Tobacco Use Types Packs/Day Years Used Date Smoking Tobacco: Former Cigarettes Q uit: 09/23/1991 Smokeless Tobacco: Never Alcohol Use Standard Drinks/Week Comments No 0 (1 standard drink = 0.6 oz pur e alcohol) Sex and Gender Information Value Date Recorded Sex Assigned at Not on file Gender Identity Not on file Sexual Orientation Not on file documented as of this encounter Progress Notes * Wayne Sanchez MD - 04/29/2023 3:30 PM EST Subjective: Pain is very severe. Not getting any better. If she walks, then she is incapacitated for two days. She is unable to afford the meds that Dr. Omalley has advocated for. She had a recentDXA scan to assess that. She has not been walking since her index procedure. She thinks she can feel something move in her tibia. Decision Making/Plan: LEFT knee pain after revision TKA for pain We will present her to our group for additional opinions She continues to use her bone stimulator. We did discuss the words in her report and the difference between lucency and loosening. We will message Dr. Omalley for Forteo. Patient verbally consents to this telephone visit and understands that this visit may be billed, similar to a clinic office visit. I provided care to the patient today via telephone call. The total time associated with this visit was 15 minutes. documented in this encounter Plan of Treatment Upcoming Encounters Date Type Department Care Team (Latest Contact Info) Description 04/06/2024 11:30 AM EST Hospital Encounter Outpatient [place] [address] Cadence Eric MD [facility] [place] [address] 04/06/2024 11:30 AM EST - 04/06/2024 12:50 PM EST Surgery Outpatient [place] [address] Cadence Eric MD [facility] [place] [address] IMPLANT NEUROSTIMULATOR ELECTRODES, PERIPHERAL NERVE (WRVU 5.76) 04/14/2024 2:30 PM EST Office Visit [place] [address] Cadence Eric MD [facility] [place] [address] Scheduled Procedures Name Priority Associated Diagnoses Date/Ti me IMPLANT NEUROSTIMULATOR ELECTRODES, PERIPHERAL NERVE (WRVU 5.76) Yes Saphenous neuralgia, right 04/06/2024 11:30 AM EST IMPLANT NEUROSTIMULATOR ELECTRODES, PERIPHERAL NERVE (WRVU 5.76) Saphenous neuralgia, 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 Neuropathic pain COLONOSCOPY,SCREENING (WRVU 3.26) Health maintenance examination-screening colo documented as of this encounter Visit Diagnoses Diagnosis S/P TKR (total knee replacement), left Saphenous neuralgia, right documented in this encounter Care Teams Maintenance Mechanic Engine Relationship Specialty Start Date End Date Ja Ordaz MD [address] [place] [address] PCP - General Emergency Medicine 03/11/21 documented as of this encounter
--- OUTSIDE RECORDS SUMMARY | 2024-04-05 16:22 | XMS_ITS | Encounter Summary ---
Author Organization [facility] Address [facility] [place] [address] Care Team Providers Care Director Alliance Marketing Name Role Phone Ja Ordaz MD Primary Care Provider [phone] Encounter Details Date Type Department Care Team (Late st Contact Info) Description 09/04/2023 11:00 AM EDT - 09/04/2023 11:45 AM [place] [address] Cadence Eric MD [facility] [place] [address] ELECTRONIC HERNANDEZ PROG., PUMP- DRUG INFUS; W/ REPROGRAM & REFILL MILAGRO DAWSON (WRVU 0.9) Social History Tobacco Use Types Packs/Day Years [...] daily. 2 gummies daily=4MG NARCAN 4 mg/actuation [place], Non-Aerosol instill 1 spray in 1 NOSTRIL if needed for opioid overdose may re... (REFER TO PRESCRIPTION NOTES). 0 12/08/2018 multivitamin with minerals Tablet Take 1 tablet by mouth daily. morphine sulfate/D5W (MORPHINE IN D5W) 1 mg/mL Prefilled Pump [place] Inject as directed. Has intrathecal pump with [...] date: 09/04/2023 Attending Physician: Cadence Eric MD [facility] H[facility] AND [...] Fellow Physician [facility] [place] [address] / I have seen and examined the [...] Pain Management Center Assisant Professor of Anesthesiology [facility] [address] [address] / [facility] documented in this encounter Miscellaneous Notes * Op Note - Cadence Eric MD - 09/04/2023 11:00 AM EDT Pain Management Operative Note Patient Name: Etelvina Cuadra : [id number] MR#: [id number] Case Date: 09/04/2023 Surgeon: Surgeon(s) and Role: * Cadence Eric MD - Primary * Argenis Jose MD - Fellow - Assisting Present on Admission: Presence of intrathecal pump Postlaminectomy syndrome of lumbar region Postoperative diagnosis: Presence of intrathecal pump Postlaminectomy syndrome of lumbar region Procedure(s) (LRB): ELECTRONIC HERNANDEZ PROG., PUMP- DRUG INFUS; W/ REPROGRAM & REFILL REJohn DAWSON (WRVU 0.9) (N/A) Telemetry Pre-Refill Programming Reading: [...] Replacement 12/03 Empty syringe concentration verified by photo checker and assembler: yes If concentration of drug is different, [...] drapes were applied as provided with the [employer] refill kit. A 22 gauge Moraes non-coring [...] instilled into the pump according to the project management advisor's directions without difficulty. Therewas no evidence of [...] assistance Cadence Eric MD Pain Management Center Warehouse Stock Clerk of Anesthesiology [facility] [address] [address] / [facility] documented in this encounter Plan of Treatment Upcoming Encounters Date Type Department Care Team (Latest Contact Info) Description 04/06/2024 11:30 AM EST Hospital Encounter [place] [address] Cadence Eric MD [facility] [place] [address] 04/06/2024 11:30 AM EST - 04/06/2024 12:50 PM EST Surgery [place] [address] Cadence Eric MD [facility] [place] [address] IMPLANT NEUROSTIMULATOR ELECTRODES, PERIPHERAL NERVE (WRVU 5.76) 04/14/2024 2:30 PM EST Office Visit [facility] [place] [address] Cadence Eric MD [facility] [place] [address] Scheduled Procedures Name Priority Associated Diagnoses Date/Ti [...] Priority Date/Time Associated Diagnosis Comments Anal Inf Planning Consultant W ReproRefil([id number]) 09/04/2023 11:05 AM EDT Postlaminectomy syndrome of lumbar region ELECTRONIC HERNANDEZ PROG., PUMP- DRUG INFUS; W/ REPROGRAM & REFILL REQ Routine 09/04/2023 10:44 AM EDT Postlaminectomy syndrome of lumbar region documented in this encounter Visit Diagnoses Diagnosis Postlaminectomy syndrome of lumbar region Postlaminectomy syndrome, lumbar region Presence of intrathecal pump Postlaminectomy syndrome of lumbar region Postlaminectomy syndrome, lumbar region Saphenous neuralgia, right documented in this encounter Admitting Diagnoses Diagnosis Postlaminectomy syndrome of lumbar region Postlaminectomy syndrome, lumbar region documented in this encounter Care Teams Director Alliance Marketing Relationship Specialty Start Date End Date Ja Ordaz MD [address] [place] [address] PCP - General Emergency Medicine 03/11/21 documented as of this encounter
--- OUTSIDE RECORDS SUMMARY | 2024-04-05 16:22 | XMS_ITS | Encounter Summary ---
Author Organization [facility] [place] [address] Care Team Providers Care Senior Dynamics Crm Developer Name Role Phone Ja Ordaz MD Primary Care Provider [phone] Encounter Details Date Type Department Care Team (Late st Contact Info) Description 10/28/2023 Telephone [facility] [place] [phone] Melani Montanez Social History Tobacco Use Types Packs/Day Years [...] encounter Miscellaneous Notes * Telephone Encounter - Melani Montanez - 10/28/2023 2:11 PM EDT Spoke to patient on 10/28/23 in regards to scheduling a FVE with Dr. Eric to discuss neck pain, no imaging, ok per KMY. Patient is requesting to speak with Dr. Eric during there procedure on November 16, 2023. I informed the patient that we would have to schedule an appointment. Patient is havingcar issues, looking to buy a car, amongst other things going on in her personal life. Patient is goi ng to reach out to her primary care for suggestions pertaining to her neck pain. Declined to schedule anything with Dr. Eric. documented in this encounter Plan of Treatment Upcoming Encounters Date Type Department Care Team (Latest Contact Info) Description 04/06/2024 11:30 AM EST Hospital Encounter [place] [address] Cadence Eric MD [facility] [place] [address] 04/06/2024 11:30 AM EST - 04/06/2024 12:50 PM EST Surgery [place] [address] Cadence Eric MD [facility] [place] [address] IMPLANT NEUROSTIMULATOR ELECTRODES, PERIPHERAL NERVE (WRVU 5.76) 04/14/2024 2:30 PM EST Office Visit [facility] [place] [address] Cadence Eric MD [facility] [place] [address] Scheduled Procedures Name Priority Associated Diagnoses Date/Ti ms IMPLANT NEUROSTIMULATOR ELECTRODES, PERIPHERAL NERVE (WRVU 5.76) Yes Saphenous neuralgia, right 04/06/2024 11:30 AM EST IMPLANT NEUROSTIMULATOR ELECTRODES, PERIPHERAL NERVE (WRVU 5.76) Saphenous neuralgia, 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 Neuropathic pain COLONOSCOPY,SCREENING (WRVU 3.26) Health maintenance examination-screening colo documented as of this encounter Visit Diagnoses Not on filedocumented in this encounter Care Teams Senior Dynamics Crm Developer Relationship Specialty Start Date End Date Ja Ordaz MD [address] [place] [id number] PCP - General Emergency Medicine 03/11/21 documented as of this encounter
--- OUTSIDE RECORDS SUMMARY | 2024-04-05 16:22 | XMS_ITS | Encounter Summary ---
Author Organization [facility] Address [facility] [place] [address] Care Team Providers Care Clinical Registered Nurse Name Role Phone Ja Ordaz MD Primary Care Provider [phone] Encounter Details Date Type Department Care Team (Late st Contact Info) Description 06/30/2023 Orders [place] [phone] Cadence Eric MD [facility] [place] [address] Postlaminectomy syndrome of lumbar region Social History Tobacco Use Types Packs/Day Years [...] AM EST Hospital Encounter Outpatient [place] [phone] Cadence Eric MD [facility] [place] [address] 04/06/2024 11:30 AM EST - 04/06/2024 12:50 PM EST Surgery Outpatient [place] [address] Cadence Eric MD [facility] [place] [place] [address] IMPLANT NEUROSTIMULATOR ELECTRODES, PERIPHERAL NERVE (WRVU 5.76) 04/14/2024 2:30 PM EST Office Visit [place] [address] Cadence Eric MD [facility] [place] [address] Scheduled Procedures Name Priority Associated Diagnoses Date/Ti me IMPLANT NEUROSTIMULATOR ELECTRODES, PERIPHERAL NERVE (WRVU 5.76) Yes Saphenous neuralgia, right 04/06/2024 11:30 AM EST IMPLANT NEUROSTIMULATOR ELECTRODES, PERIPHERAL NERVE (WRVU 5.76) Saphenous neuralgia, 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 Neuropathic pain COLONOSCOPY,SCREENING (WRVU 3.26) Health maintenance examination-screening colo documented as of this encounter Visit Diagnoses Diagnosis Postlaminectomy syndrome of lumbar region Postlaminectomy syndrome, lumbar region Saphenous neuralgia, right documented in this encounter Care Teams Clinical Registered Nurse Relationship Specialty Start Date End Date Ja Ordaz MD [address] [place] [phone] PCP - General Emergency Medicine 03/11/21 documented as of this encounter
--- OUTSIDE RECORDS SUMMARY | 2024-04-05 16:22 | XMS_ITS | Encounter Summary ---
Author Organization [facility] Address [facility] [place] [address] Care Team Providers Care Restoration Silversmith Name Role Phone Ja Ordaz MD Primary Care Provider [phone] Reason for Referral * Physical Therapy (Routine) - Closed Specialty Diagnoses / Procedures Referred By Cindy wooten Referred To Contact Physical Therapy Diagnoses S/P TKR (total knee replacement), left Status post revision of total replacement of left knee Rosa Maria, JENNY Sanchez [facility] [place] [address] Referral ID Status Reason Start Date Expiration Date V isits Requested Visits Authorized [id number] Closed Evaluate and Treat 07/22/2023 01/18/2024 12 12 Reason for Visit * Reason Comments Follow-up S/P LEFT TOTAL KNEE ARTHROPLASTY 03/29/2020 DR. JACOBSON, TKR (TOTAL KNEE REPLACEMENT), LEFT REVISION L TKA 09/10/21 (DR. SANCHEZ) Encounter Details Date Type Department Care Team (Late st Contact Info) Description 07/22/2023 1:30 PM EDT Office Visit [place] [address] Clinic, Dr Sanchez Team None S/P TKR (total knee replacement), left; Status post revision of total replacement of left knee Social History Tobacco Use Types Packs/Day Years [...] Sign Reading Time Taken Comments Blood Pressure - - Pulse - - Temperature - - Respiratory Rate - - Oxygen Saturation - - Inhaled Oxygen Concentration - - Weight 112.9 kg (249 lb) 07/22/2023 1:08 PM EDT Height 151 cm (4' 11.45) 07/22/2023 1:08 PM EDT Body Mass Index 49.53 07/22/2023 1:08 PM EDT documented in this encounter Progress Notes * Rosa Maria, JENNY Sanchez - 07/22/2023 1:30 PM EDT Arthroplasty/Orthopaedic History: Right medial unicompartmental knee replacement (likely cemented mobile beraing [place]) [facility] Left TKA 03/29/2020 (Dr. Jacobson) L TKA Revision for aseptic loosening 09/10/21 (Dr. Sanchez) HPI: Etelvina Cuarda is a very pleasant 62 y.o. year-old female and is now nearly 2 years post left total knee revision. She has had a frustrating course. Continues to have anterior pain in the [place], sense that something is moving or banging. Workup thus far has been reassuring against any sort of implant failure. She has found a bone stimulator helpful, but not curative. Working with the pain clinic to titrate her morphine pump dosing. Notes increased swelling and pain after activity. Needs to rest for days. Has not really been doing much due to the pain. ROS: Denies: fever, chills, night sweats, nausea, or vomiting Ht 151 cm (4' 11.45) Wt 112.9 kg (249 lb) BMI 49.53 kg/m?? Physical Exam: Well-appearing female in no acute distress. Alert and Oriented x 3 and answers all questions appropriately. The incision is well healed, with no signs of infection. Knee Exam: Left Knee ROM: Extension:0 Flexion: 110 Alignment: 0-4 degrees Neutral Stability: A/P Translation <5mm Varus <5mm Valgus <5mm Extension La degrees or less Patella Tracking: Normal Pulses Palpable: Left PT:No Left DP:Yes Motor/Sensory: Distal Motor: Normal Distal Sensory: Normal Quadriceps Strength: 4 X-RAYS: personally reviewed. Stable implants without signs of failure. CT personally reviewed from hip to ankle. It reveals well placed components without evidence of failure. No fracture or bony reaction at tibia. Questionnaire Responses: 07/22/2023 1:07 PM [facility] Postop Visit KOOS JR Scores 36.93 07/22/2023 1:07 PM [facility]ope[facility] Response KOOS JR Scores 36.93 07/22/2023 1:07 PM Spine [facility] Response KOOS JR Scores 36.93 ASSESSMENT/PLAN: Ms. Cuadra is a 62 y.o. 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 Reviewed exam and imaging. Discussed deconditioning. Discussed bone metabolism - continue working with Dr Omalley in Endocrinology. Advocate for gradual activity progression to improve conditioning. She will go to PT with Santi Ba. RTC 6 months with XR Signed: JENNY Streeter documented in this encounter Plan of Treatment Upcoming Encounters Date Type Department Care Team (Latest Contact Info) Description 04/06/2024 11:30 AM EST Hospital Encounter Outpatient [place] [address] Cadence Eric MD [facility] [place] [address] 04/06/2024 11:30 AM EST - 04/06/2024 12:50 PM EST Surgery Outpatient [place] [address] Cadence Eric MD [facility] [place] [address] IMPLANT NEUROSTIMULATOR ELECTRODES, PERIPHERAL NERVE (WRVU 5.76) 04/14/2024 2:30 PM EST Office Visit [facility] [place] [address] Cadence Eric MD [facility] [place] [place] [address] Scheduled Procedures Name Priority Associated Diagnoses Date/Ti me IMPLANT NEUROSTIMULATOR ELECTRODES, PERIPHERAL NERVE (WRVU 5.76) Yes Saphenous neuralgia, right 04/06/2024 11:30 AM EST IMPLANT NEUROSTIMULATOR ELECTRODES, PERIPHERAL NERVE (WRVU 5.76) Saphenous neuralgia, 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 Neuropathic pain COLONOSCOPY,SCREENING (WRVU 3.26) Health maintenance examination-screening colo Scheduled Referrals Name Type Priority Associated Diagnoses Orde r Schedule Referral to Physical Therapy Outpatient Referral Routine S/P TKR (total knee replacement), left Status post revision of total replacement of left knee Ordered: 07/22/2023 documented as of this encounter Visit Diagnoses Diagnosis S/P TKR (total knee replacement), left Status post revision of total replacement of left knee Saphenous neuralgia, right documented in this encounter Care Teams Restoration Silversmith Relationship Specialty Start Date End Date Ja Ordaz MD [address] [place] [id number] PCP - General Emergency Medicine 03/11/21 documented as of this encounter
--- OUTSIDE RECORDS SUMMARY | 2024-04-05 16:22 | XMS_ITS | Encounter Summary ---
Author Organization [facility] [place] [address] Care Team Providers Care Director Of Primary Name Role Phone Ja Ordaz MD Primary Care Provider [phone] Reason for Visit * Reason Onset Date Comments Bumped Appointment 02/25/2024 Apt changed t o 03/04/24 Encounter Details Date Type Department Care Team (Late st Contact Info) Description 02/25/2024 Telephone [facility] [place] [address] Etelvina Bishop RN Bumped Appointment (Apt changed to 03/04/24) Social History Tobacco Use Types Packs/Day Years [...] encounter Miscellaneous Notes * Telephone Encounter - Etelvina Bishop RN - 02/25/2024 12:52 PM EDT Out going call to tell Etelvina that we have to reschedule her pump refill to 03/04/24 do to [place] is not in operation right now and it looks like it is going to take longer then we thought to get the medication from another [facility] compounding [facility]. Etelvina said that she hasn't used all of her boluses so she knows the alarm date it won't alarm. I told Etelvina that I would have Leanna call her with the new time on the 03/04/24 date. documented in this encounter Plan of Treatment Upcoming Encounters Date Type Department Care Team (Latest Contact Info) Description 04/06/2024 11:30 AM EST Hospital Encounter [place] [address] Cadence Eric MD [facility] [place] [address] 04/06/2024 11:30 AM EST - 04/06/2024 12:50 PM EST Surgery [place] [address] Cadence Eric MD [facility] [place] [address] IMPLANT NEUROSTIMULATOR ELECTRODES, PERIPHERAL NERVE (WRVU 5.76) 04/14/2024 2:30 PM EST Office Visit [facility] [place] [address] Cadence Eric MD [facility] [place] [address] Scheduled Procedures Name Priority Associated Diagnoses Date/Ti [...] on filedocumented in this encounter Care Teams Director Of Primary Relationship Specialty Start Date End Date Ja Ordaz MD [address] [place] [address] PCP - General Emergency Medicine 03/11/21 documented as of this encounter
--- OUTSIDE RECORDS SUMMARY | 2024-04-05 16:22 | XMS_ITS | Encounter Summary ---
Author Organization Formerly [facility] [place] [address] Care Team Providers Care Confidential Secretary Name Role Phone Ja Ordaz MD Primary Care Provider [phone] Reason for Visit * Auth/Cert (Routine) Specialty Diagnoses / Procedures Referred By Contac t Referred To Contact Diagnoses Postlaminectomy syndrome of lumbar region Presence of intrathecal pump post laminectomy syndrome Procedures PRO ELECTRONIC PUMP ANALYSIS W REPROGRAMMING AND REFILL BY /STOCK CHASER ELECTRONIC HERNANDEZ PROG., PUMP- DRUG INFUS; W/ REPROGRAM & REFILL REQ (WRVU 0.9) Cadence Eric MD [facility] [place] [address] [facility] Referral ID Status Reason Start Date Expiration Date Visits Re quested Visits Authorized [id number] 1 1 Encounter Details Date Type Department Care Team (Latest Contact Info) Description 03/04/2024 1:31 PM EDT - 03/04/2024 2:48 PM EDT Hospital Encounter Pain Management [facility] [place] [phone] Cadence Eric MD [facility] [place] [address] Postlaminectomy syndrome of lumbar region; Presence of [...] Pulse 58 03/04/2024 1:43 PM EDT Temperature - - Respiratory Rate - - Oxygen Saturation 98% 03/04/2024 1:43 PM EDT Inhaled Oxygen Concentration - - Weight - [...] daily. 2 gummies daily=4MG NARCAN 4 mg/actuation [place], Non-Aerosol instill 1 spray in 1 NOSTRIL if needed for opioid overdose may re... (REFER TO PRESCRIPTION NOTES). 0 12/08/2018 multivitamin with minerals Tablet Take 1 tablet by mouth daily. morphine sulfate/D5W (MORPHINE IN D5W) 1 mg/mL Prefilled Pump [place] Inject as directed. Has intrathecal pump with continuous rate and Has 5 preset prn boluses pt may give herself documented as of this encounter H&P Notes * Herbert Jackson, DO - 02/24/2024 11:01 AM EDT Patient Name: Etelvina Cuadra Patient Age: 63 y.o. Birthdate: 1960 Admit date: 03/04/2024 Attending Physician: Cadence Eric MD [facility] PREPROCEDURE HISTORY AND PHYSICAL HPI: Etelvina Cuadra is a 63 y.o. female who presents today for: Procedure: ITP refill and preprogram The history is obtained from the patient, [...] the electronic medical record. Physical Examination: BP 124/62 (Patient Position: Sitting) Pulse 58 SpO2 98% Patient Vitals for the past 24 hrs: Pulse BP SpO2 O2 Device 03/04/24 1343 58 124/62 98 % RA Pain Ratin/10 Please see previous evaluation performed as described in Assessment and Plan below. No pertinent changes since time of last assessment. Pulmonary/Chest: Effort normal. Skin: Skin is warm and dry. No rash noted. Not diaphoretic. Radiologic Data: Relevant imaging was reviewed today. New Imaging: none Labs: No labs required Assessment and Plan: post laminectomy syndrome Please see previous evaluation performed on 11/16/23, by Drs. Eric and Angeline, for justificationof medical necessity for the procedure as listed above. Addressed all questions and concerns. Nursing intake/checklist reviewed. Medications holds confirmed. Risks and benefits discussed with patient. No contraindications to the procedure at this time, will proceed. Herbert Jackson DO Fellow [facility]ician [facility] [place] [address] / documented in this encounter Miscellaneous Notes * Op Note - Cadence Eric MD - 03/04/2024 2:19 PM EDT Pain Management Operative Note Patient Name: Etelvina Cuadra : [id number] MR#: [id number] Case Date: 03/04/2024 Surgeon: Surgeons and Role: * Cadence Eric MD - Primary Herbert Jackson MD FELLOW Present on Admission: Presence of intrathecal pump Postoperative diagnosis: Presence of intrathecal pump Procedure(s) (LRB): ELECTRONIC HERNANDEZ PROG., PUMP- DRUG INFUS; W/ REPROGRAM & REFILL REJohn DAWSON (WRVU 0.9) (N/A) Pre-procedure assessment: Patient reports with the last two fills have had significant sedation on her ride home no report ofaltered respiration. No signs of pocket fill and able to easy aspirate out her meds during fill anddone under xray. Discussed plan for Log check and checking for discrepancy as well as her staying for 1-2 hours after fill to assess her in clinic. Pain Management Operative Note Telemetry Pre-Refill Programming Reading: Drugs/Concentrations: Morphine 10mg/mL - Preservative Free - Daily Dose: 2.2mg with mPTM 0.24 mg q3hr PRN 5/day Brand/Compound: Compound. Telemetry Post-Refill Programming Reading: Drugs/Concentrations: Morphine 10mg/mL - Preservative Free - Daily Dose: 2.2mg with mPTM 0.24mg q3hr PRN 5/day Brand/Compound: Compound. Pump Capacity: 40 mL Computer predicted residual volume in pump: 10.2 ml Measured residual volume in pump: 10.1 ml Medication or Dose Changes: no Is dose change >30%? no Is concentration of drug different? no Estimated Replacement 12/03 Empty syringe concentration verified by broadcast checker: yes If concentration of drug is different, has a bridge bolus been programmed? n/a. Has any program been used other than simple continuous or bridge bolus and simple continuous? no Infusion Mode: simple continuous. New Alarm Date: 06/24/24 PROCEDURE: Risks and expected side effects were [...] drapes were applied as provided with the [employer] refill kit. A 22 gauge Moraes non-coring [...] instilled into the pump according to the desk editor's directions without difficulty. Therewas no evidence of [...] Pain Management Center Assisant Professor of Anesthesiology [facility] [employer] [address] [address] / [facility] documented in this encounter Plan of Treatment Upcoming Encounters Date Type Department Care Team (Latest Contact Info) Description 04/06/2024 11:30 AM EST Hospital Encounter [place] [address] Cadence Eric MD [facility] [address] [place] [address] 04/06/2024 11:30 AM EST - 04/06/2024 12:50 PM EST Surgery [place] [address] Cadence Eric MD [facility] [place] [address] IMPLANT NEUROSTIMULATOR ELECTRODES, PERIPHERAL NERVE (WRVU 5.76) 04/14/2024 2:30 PM EST Office Visit [facility] [place] [address] Cadence Eric MD [facility] [place] [address] Scheduled Procedures Name Priority Associated Diagnoses Date/Ti [...] Priority Date/Time Associated Diagnosis Comments Anal Inf Business Development Agent W ReproRefil([id number]) 03/04/2024 2:00 PM EDT Postlaminectomy syndrome of lumbar region Presence of intrathecal pump ELECTRONIC HERNANDEZ PROG., PUMP- DRUG INFUS; W/ REPROGRAM & REFILL REQ Routine 03/04/2024 1:40 PM EDT Postlaminectomy syndrome of lumbar region Presence of intrathecal pump documented in this encounter Visit Diagnoses Diagnosis Presence of intrathecal pump- Primary Postlaminectomy syndrome of lumbar region Postlaminectomy syndrome, lumbar region Saphenous neuralgia, right documented in this encounter Admitting Diagnoses Diagnosis Presence of intrathecal pump documented in this encounter Care Teams Confidential Secretary Relationship Specialty Start Date End Date Ja Ordaz MD [address] [place] [address] PCP - General Emergency Medicine 03/11/21 documented as of this encounter
--- OUTSIDE RECORDS SUMMARY | 2024-04-05 16:22 | XMS_ITS | Encounter Summary ---
Author Organization [facility] Address [facility] [place] [address] Care Team Providers Care Rotary Dump Operator Name Role Phone Ja Ordaz MD Primary Care Provider [phone] Encounter Details Date Type Department Care Team (Latest Contact Info) Description 07/22/2023 Travel Social History Tobacco Use Types Packs/Day [...] AM EST Hospital Encounter [place] [address] Cadence Eric MD [facility] [address] 04/06/2024 11:30 AM EST - 04/06/2024 12:50 PM EST Surgery [place] [phone] Cadence Eric MD [facility] [place] [address] IMPLANT NEUROSTIMULATOR ELECTRODES, PERIPHERAL NERVE (WRVU 5.76) 04/14/2024 2:30 PM EST Office Visit [place] [address] Cadence Eric MD [facility] [place] [address] Scheduled Procedures Name Priority Associated Diagnoses Date/Ti [...] on filedocumented in this encounter Care Teams Rotary Dump Operator Relationship Specialty Start Date End Date Ja Ordaz MD [address] [place] [address] PCP - General Emergency Medicine 03/11/21 documented as of this encounter
--- OUTSIDE RECORDS SUMMARY | 2024-04-05 16:22 | XMS_ITS | Encounter Summary ---
Author Organization [facility] Address [facility] [place] [address] Care Team Providers Care China Decorator Name Role Phone Ja Ordaz MD Primary Care Provider [phone] Encounter Details Date Type Department Care Team (Late st Contact Info) Description 07/13/2023 Orders [place] [phone] Joseph Palacios, RMA S/P TKR (total knee replacement), left Social [...] EST Hospital Encounter Outpatient [place] [phone] Cadence Eric MD [facility] [place] [address] 04/06/2024 11:30 AM EST - 04/06/2024 12:50 PM EST Surgery Outpatient [place] [phone] Cadence Eric MD [facility] [place] [address] IMPLANT NEUROSTIMULATOR ELECTRODES, PERIPHERAL NERVE (WRVU 5.76) 04/14/2024 2:30 PM EST Office Visit [place] [phone] Cadence Eric MD [facility] [place] [address] Scheduled Procedures Name Priority Associated Diagnoses Date/Ti me IMPLANT NEUROSTIMULATOR ELECTRODES, PERIPHERAL NERVE (WRVU 5.76) Yes Saphenous neuralgia, right 04/06/2024 11:30 AM EST IMPLANT NEUROSTIMULATOR ELECTRODES, PERIPHERAL NERVE (WRVU 5.76) Saphenous neuralgia, 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 Neuropathic pain COLONOSCOPY,SCREENING (WRVU 3.26) Health maintenance examination-screening colo documented as of this encounter Results * XR Knee 1-2 [...] who have questions please contact the health district manager primary care sales that requested your imaging first. ? Narrative 07/22/2023 4:03 PM EDT EXAMINATION: XR [...] patients who have questions please contactthe health district manager primary care sales that requested your imaging first. Wayne Sanchez MD IMG DX ORDERABLES documented in this encounter Visit Diagnoses Diagnosis S/P TKR (total knee replacement), left S/P TKR (total knee replacement), left Saphenous neuralgia, right documented in this encounter Care Teams China Decorator Relationship Specialty Start Date End Date Ja Ordaz MD [address] [place] [address] PCP - General Emergency Medicine 03/11/21 documented as of this encounter
--- OUTSIDE RECORDS SUMMARY | 2024-04-05 16:22 | XMS_ITS | Encounter Summary ---
Author Organization Formerly [facility] [place] [address] Care Team Providers Care White Hat Hacker Name Role Phone Ja Ordaz MD Primary Care Provider [phone] Encounter Details Date Type Department Care Team (Late st Contact Info) Description 09/14/2023 Telephone [place] [phone] Halley Franklin Social History Tobacco Use Types Packs/Day Years [...] AM EST Hospital Encounter [place] [phone] Cadence Eric MD [facility] [place] [address] 04/06/2024 11:30 AM EST - 04/06/2024 12:50 PM EST Surgery [place] [phone] Cadence Eric MD [facility] [place] [address] IMPLANT NEUROSTIMULATOR ELECTRODES, PERIPHERAL NERVE (WRVU 5.76) 04/14/2024 2:30 PM EST Office Visit [facility] [place] [address] Cadence Eric MD [facility] [place] [address] Scheduled Procedures Name Priority Associated Diagnoses Date/Ti [...] on filedocumented in this encounter Care Teams White Hat Hacker Relationship Specialty Start Date End Date Ja Ordaz MD [address] [place] [address] PCP - General Emergency Medicine 03/11/21 documented as of this encounter
--- OUTSIDE RECORDS SUMMARY | 2024-04-05 16:22 | XMS_ITS | Encounter Summary ---
Author Organization [facility] Address [facility] [place] [address] Care Team Providers Care Manager Diesel Name Role Phone Ja Ordaz MD Primary Care Provider [phone] Encounter Details Date Type Department Care Team (Late st Contact Info) Description 11/16/2023 External Results [facility] [place] [phone] Social History Tobacco Use Types Packs/Day Years [...] AM EST Hospital Encounter Outpatient [place] [address] Cadence Eric MD [facility] [place] [address] 04/06/2024 11:30 AM EST - 04/06/2024 12:50 PM EST Surgery Outpatient [place] [phone] Cadence Eric MD [facility] [place] [address] IMPLANT NEUROSTIMULATOR ELECTRODES, PERIPHERAL NERVE (WRVU 5.76) 04/14/2024 2:30 PM EST Office Visit [facility] [place] [address] Cadence Eric MD [facility] [place] [address] Scheduled Procedures Name Priority Associated Diagnoses Date/Ti [...] Procedure Name Priority Date/Time Associated Diagnosis Comments INTRATHECAL PUMP REFILL Routine 11/16/2023 4:50 PM EDT documented in this encounter Results * INTRATHECAL PUMP REFILL (11/16/2023 4:50 PM EDT) Historical Provider PROCEDURE/MINOR S URGICAL ORDERABLES documented in this encounter Visit Diagnoses Not on filedocumented in this encounter Care Teams Manager Diesel Relationship Specialty Start Date End Date Ja Ordaz MD [address] [place] [address] PCP - General Emergency Medicine 03/11/21 documented as of this encounter
--- OUTSIDE RECORDS SUMMARY | 2024-04-05 16:22 | XMS_ITS | Encounter Summary ---
Author Organization [facility] [place] [address] Care Team Providers Care Glass Smoother Name Role Phone Ja Ordaz MD Primary Care Provider [phone] Reason for Visit * Auth/Cert (Routine) Specialty Diagnoses / Procedures Referred By Cindy t Referred To Contact Diagnoses Post laminectomy syndrome Procedures PRO ELECTRONIC PUMP ANALYSIS W REPROGRAMMING AND REFILL BY /NAHID ELECTRONIC HERNANDEZ PROG., PUMP- DRUG INFUS; W/ REPROGRAM & REFILL REQ (WRVU 0.9) Cadence Eric MD [facility] [place] [address] [place] Referral ID Status Reason Start Date Expiration Date Visits Re quested Visits Authorized [id number] 1 1 Encounter Details Date Type Department Care Team (Late st Contact Info) Description 05/22/2023 11:00 AM EST - 05/22/2023 12:00 PM EST [place] [address] Cadence Eric MD [facility] [place] [address] ELECTRONIC HERNANDEZ PROG., PUMP- DRUG INFUS; W/ REPROGRAM & REFILL REQ (WRVU 0.9) Social History Tobacco Use Types [...] daily. 2 gummies daily=4MG NARCAN 4 mg/actuation [place], Non-Aerosol instill 1 spray in 1 NOSTRIL if needed for opioid overdose may re... (REFER TO PRESCRIPTION NOTES). 0 12/08/2018 multivitamin with minerals Tablet Take 1 tablet by mouth daily. morphine sulfate/D5W (MORPHINE IN D5W) 1 mg/mL Prefilled Pump [place] Inject as directed. Has intrathecal pump with [...] on file) Attending Physician: Cadence Eric MD [facility] [...] Fellow Physician [facility] [place] [address] / documented in this encounter Miscellaneous Notes * Op Note - Cadence Eric MD - 05/22/2023 11:07 AM EST Pain Management Operative Note Patient Name: Etelvina Cuadra : [id number] MR#: [id number] 05/22/23 Surgeon: Surgeon(s) and Role: * Cadence Eric MD - Primary * Ronald Bang DO - Fellow - Assisting Present on Admission: Postlaminectomy syndrome of lumbar region Postoperative diagnosis: Postlaminectomy syndrome of lumbar region Procedure(s) (LRB): ELECTRONIC HERNANDEZ PROG., PUMP- DRUG INFUS; W/ REPROGRAM & REFILL [place]ID[place] (WRVU 0.9) (N/A) INTRATHECAL PUMP REFILL PROCEDURE [...] Replacement 12/03 Empty syringe concentration verified by hot box checker: yes If concentration of drug is [...] instilled into the pump according to the hose turner's directions without difficulty. Therewas no evidence of [...] procedure. Cadence Eric MD [facility] Assisaluciano Professor of Anesthesiology [facility] [address] [address] / [facility] documented in this encounter Plan of Treatment Upcoming Encounters Date Type Department Care Team (Latest Contact Info) Description 04/06/2024 11:30 AM EST Hospital Encounter [place]patient [place] [address] Cadence Eric MD [facility] [place] [address] 04/06/2024 11:30 AM EST - 04/06/2024 12:50 PM EST Surgery [place] [address] Cadence Eric MD [facility] [place] [address] IMPLANT NEUROSTIMULATOR ELECTRODES, PERIPHERAL NERVE (WRVU 5.76) 04/14/2024 2:30 PM EST Office Visit [facility] [place] [address] Cadence Eric MD [facility] [place] [address] Scheduled Procedures Name Priority Associated Diagnoses Date/Ti [...] Priority Date/Time Associated Diagnosis Comments Anal Inf Inspector Of Dredging W ReproRefil([id number]) 05/22/2023 11:02 AM EST Postlaminectomy syndrome of lumbar region Presence of intrathecal pump ELECTRONIC HERNANDEZ PROG., PUMP- DRUG INFUS; W/ REPROGRAM & REFILL REQ Routine 05/22/2023 10:35 AM EST Postlaminectomy syndrome of lumbar region Presence of intrathecal pump documented in this encounter Visit Diagnoses Diagnosis Postlaminectomy syndrome of lumbar region- Primary Postlaminectomy syndrome, lumbar region Presence of intrathecal pump Postlaminectomy syndrome of lumbar region Postlaminectomy syndrome, lumbar region Presence of intrathecal pump Saphenous neuralgia, right documented in this encounter Care Teams Glass Smoother Relationship Specialty Start Date End Date Ja Ordaz MD [address] [place] [address] PCP - General Emergency Medicine 03/11/21 documented as of this encounter
--- OUTSIDE RECORDS SUMMARY | 2024-04-05 16:22 | XMS_ITS | Encounter Summary ---
Author Organization [facility] Address [facility] [place] [address] Care Team Providers Care Credit Investigator Name Role Phone Ja Ordaz MD Primary Care Provider [phone] Encounter Details Date Type Department Care Team (Latest Contact Info) Description 06/17/2023 Travel Social History Tobacco Use Types Packs/Day [...] AM EST Hospital Encounter [place] [address] Cadence Eric MD [facility] [place] [address] 04/06/2024 11:30 AM EST - 04/06/2024 12:50 PM EST Surgery [place] [phone] Cadence Eric MD [facility] [place] [address] IMPLANT NEUROSTIMULATOR ELECTRODES, PERIPHERAL NERVE (WRVU 5.76) 04/14/2024 2:30 PM EST Office Visit [facility] [place] [address] Cadence Eric MD [facility] PAIN [place] [address] Scheduled Procedures Name Priority Associated Diagnoses Date/Ti [...] on filedocumented in this encounter Care Teams Credit Investigator Relationship Specialty Start Date End Date Ja Ordaz MD [address] [place] [address] PCP - General Emergency Medicine 03/11/21 documented as of this encounter
--- OUTSIDE RECORDS SUMMARY | 2024-04-05 16:22 | XMS_ITS | Encounter Summary ---
Author Organization [facility] [place] [address] Care Team Providers Care Road Freight Firer Name Role Phone Ja Ordaz MD Primary Care Provider [phone] Reason for Visit * Reason Onset Date Comments Questions 12/18/2023 Encounter Details Date Type Department Care Team (Late st Contact Info) Description 12/18/2023 Telephone [place] [address] Etelvina Bishop, RN Questions Social History Tobacco Use Types Packs/Day Years [...] Telephone Encounter - Etelvina Bishop RN - 12/18/2023 11:36 AM EDT Out going call to Etelvina to tell her that Dr Eric stated that the next step would be to put a peripheral Nerve Stimulator in. Etelvina is going to [employer] information about it , but she would like to move forward with the Stimulator. Forwarding message to Dr Eric . documented in this encounter Plan of Treatment Upcoming Encounters Date Type Department Care Team (Latest Contact Info) Description 04/06/2024 11:30 AM EST Hospital Encounter [place] [address] Cadence Eric MD [facility] [place] [address] 04/06/2024 11:30 AM EST - 04/06/2024 12:50 PM EST Surgery [place] [address] Cadence Eric MD [facility] [place] [address] IMPLANT NEUROSTIMULATOR ELECTRODES, PERIPHERAL NERVE (WRVU 5.76) 04/14/2024 2:30 PM EST Office Visit [place] [address] Cadence Eric MD [facility] [place] [address] Scheduled Procedures Name Priority Associated Diagnoses Date/Ti [...] on filedocumented in this encounter Care Teams Road Freight Firer Relationship Specialty Start Date End Date Ja Ordaz MD [address] [place] [address] PCP - General Emergency Medicine 03/11/21 documented as of this encounter
--- OUTSIDE RECORDS SUMMARY | 2024-04-05 16:22 | XMS_ITS | Encounter Summary ---
Author Organization [facility] Address [facility] [place] [address] Care Team Providers Care Senior Web Designer Name Role Phone Ja Ordaz MD Primary Care Provider [phone] Encounter Details Date Type Department Care Team (Late st Contact Info) Description 11/16/2023 10:15 AM EDT Ancillary [place] [phone] Cadence Eric MD [facility] [place] [address] Social History Tobacco Use Types Packs/Day Years [...] AM EST Hospital Encounter [place] [phone] Cadence Eric MD [facility] [place] [address] 04/06/2024 11:30 AM EST - 04/06/2024 12:50 PM EST Surgery [place] [address] Cadence Eric MD [facility] [place] [address] IMPLANT NEUROSTIMULATOR ELECTRODES, PERIPHERAL NERVE (WRVU 5.76) 04/14/2024 2:30 PM EST Office Visit [place] [address] Cadence Eric MD [facility] [place] [address] Scheduled Procedures Name Priority Associated Diagnoses Date/Ti [...] Comments FILM LIBRARY STORAGE ONLY PAIN CLINIC ULTRASOUND Routine 11/16/2023 3:27 PM EDT documented in this encounter Results * Film Library- Storage Only Pain Clinic Ultrasound (11/16/2023 3:27 PM EDT) Narrative [facility] - 11/16/2023 3:27 PM EDT See PACS for result report. Cadence Eric MD IMG FILM LIBRARY ORDERABLES [place], [place] documented in this encounter Visit Diagnoses Not on filedocumented in this encounter Care Teams Senior Web Designer Relationship Specialty Start Date End Date Ja Ordaz MD [address] [place] [address] PCP - General Emergency Medicine 11/1/21 documented as of this encounter
--- OUTSIDE RECORDS SUMMARY | 2024-04-05 16:22 | XMS_ITS | Encounter Summary ---
Author Organization [facility] Address [facility] [place] [address] Care Team Providers Care Air Defense Artillery Senior Sergeant Name Role Phone Ja Ordaz MD Primary Care Provider [phone] Encounter Details Date Type Department Care Team (Late st Contact Info) Description 05/16/2023 Telephone [place] [phone] Dawson Omalley MD [facility] [place] [place] [address] Social History Tobacco Use Types Packs/Day Years [...] encounter Miscellaneous Notes * Telephone Encounter - Rose Fleming - 05/16/2023 1:23 PM EST Needs fuv with Dr. Shahram mckeon documented in this encounter Plan of Treatment Upcoming Encounters Date Type Department Care Team (Latest Contact Info) Description 04/06/2024 11:30 AM EST Hospital Encounter Outpatient [place] [phone] Cadence Eric MD [facility] [place] [address] 04/06/2024 11:30 AM EST - 04/06/2024 12:50 PM EST Surgery Outpatient [place] [address] Cadence Eric MD [facility] [place] [address] IMPLANT NEUROSTIMULATOR ELECTRODES, PERIPHERAL NERVE (WRVU 5.76) 04/14/2024 2:30 PM EST Office Visit [place] [address] Cadence Eric MD [facility] [place] [address] Scheduled Procedures Name Priority Associated Diagnoses Date/Ti [...] on filedocumented in this encounter Care Teams [employer] Defense Artillery Senior Sergeant Relationship Specialty Start Date End Date Ja Ordaz MD [address] [place] [address] PCP - General Emergency Medicine 03/11/21 documented as of this encounter
--- OUTSIDE RECORDS SUMMARY | 2024-04-05 16:22 | XMS_ITS | Encounter Summary ---
Author Organization [facility]ly [facility] Address [facility] [place] [address] Care Team Providers Care Sample Puller Name Role Phone Ja Ordaz MD Primary Care Provider [phone] Encounter Details Date Type Department Care Team (Late st Contact Info) Description 09/29/2023 External Results [facility] [place] [phone] Social History Tobacco Use Types Packs/Day Years [...] AM EST Hospital Encounter Outpatient [place] [address] Cadence Eric MD [facility] [place] [address] 04/06/2024 11:30 AM EST - 04/06/2024 12:50 PM EST Surgery Outpatient [place] [phone] Cadence Eric MD [facility] [address] IMPLANT NEUROSTIMULATOR ELECTRODES, PERIPHERAL NERVE (WRVU 5.76) 04/14/2024 2:30 PM EST Office Visit [place] [address] Cadence Eric MD [facility] [place] [address] Scheduled Procedures Name Priority Associated Diagnoses Date/Ti [...] Associated Diagnosis Comments INTRATHECAL PUMP REFILL Routine 09/04/2023 9:12 AM EDT documented in this encounter Results * INTRATHECAL PUMP REFILL (09/04/2023 9:12 AM EDT) Historical Provider PROCEDURE/MINOR S URGICAL ORDERABLES documented in this encounter Visit Diagnoses Not on filedocumented in this encounter Care Teams Sample Puller Relationship Specialty Start Date End Date Ja Ordaz MD [address] [place] [address] PCP - General Emergency Medicine 03/11/21 documented as of this encounter
--- OUTSIDE RECORDS SUMMARY | 2024-04-05 16:22 | XMS_ITS | Encounter Summary ---
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 2 gummies daily=4MG NARCAN 4 mg/actuation [place], Non-Aerosol instill 1 spray in 1 NOSTRIL if needed for opioid overdose may re... (REFER TO PRESCRIPTION NOTES). 0 12/08/2018 multivitamin with minerals Tablet Take 1 tablet by mouth daily. morphine sulfate/D5W (MORPHINE IN D5W) 1 mg/mL Prefilled Pump [place] Inject as directed. Has intrathecal pump with [...] as of this encounter H&P Notes * Mattie Marcus MD - 11/16/2023 10:34 AM EDT Patient Name: Etelvina Cuadra Patient Age: 62 y.o. Birthdate: 1960 Admit date: 11/16/2023 Attending Physician: Cadence Eric MD [facility] PREPROCEDURE HISTORY AND PHYSICAL HPI: Etelvina Cuadra is a 62 y.o. female who presents today for: Procedure: left saphenous nerve block and pain pump refill The history is obtained from the patient, [...] the electronic medical record. Physical Examination: BP 120/75 (Patient Position: Sitting) Pulse 73 SpO2 100% Pain Ratin/10 No pertinent changes are noted from previous assessment. Pulmonary/Chest: Effort normal. Skin: Skin is warm and dry. No rash noted. Not diaphoretic. Radiologic Data: Relevant imaging was reviewed today. Labs: No labs required Assessment and Plan: chronic knee pain. Plan to proceed with Left saphenous nerve block and pain pump refill . Addressed all questions and concerns. Nursing intake/checklist reviewed. Medications holds confirmed. Risks and benefits discussed with patient. No contraindications to the procedure at this time, will proceed. Mattie Marcus MD Pain Fellow, PGY5 [facility] [place] [address] / documented in this encounter Miscellaneous Notes * Op Note - Cadence Eric MD - 11/16/2023 11:00 AM EDT Pain Management Operative Note Patient Name: Etelvina Cuadra : [id number] MR#: [id number] Case Date: 11/16/2023 Surgeon: Surgeons and Role: * Cadence Eric MD - Primary * Mattie Marcus MD - Fellow - Assisting Present on Admission: 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 Postoperative diagnosis: 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 Procedure(s) (LRB): NERVE BLOCK, OTHER PERIPHERAL NERVE OR BRANCH (WRVU 0.75) (Left) ULTRASOUND-GUIDED Right Saphenous NERVE BLOCK PROCEDURE NOTE The patient complains of RIGHT knee pain. Dx: RIGHT knee pain The patient was greeted by the nurse who verified patients name and . The patient was interviewed and the medical record reviewed. There were no medical, pharmacologic, radiographic, or other structural contraindications to attempting the saphenous nerve block. Risks and potential side effects were discussed. The potential benefits of the procedure were reviewed withThe patient and her voiced concerns were addressed. After obtaining informed consent, the patient consent form was signed. Standard time-out procedure was performed. The patient was placed in the supine position on the procedure table. The skin entry point for entering/approaching the adductor canal/saphenous was marked at the mid thigh. The skin was thoroughly prepared with chlorhexadine preparation. Using a linear ultrasound probe, the Superficial femoral artery, saphenous nerve and vein were identified. The insertion area was thoroughly anesthetized with 1% Lidocaine using a 1.5 25G skin needle. Next, I entered the skin using a lateral to medial approach with a 3.5 20 G ultrasound needle until the tip of the need was in close proximity to the saphenous nerve. Aspiration revealed no blood or other fluid. Next, I injected a solution of 6 cc of 0.5% Bupivacaine mixed with 1 cc of DepoMedrol (40 mg/cc) without resistance. This was watched with ultraso und in real time. Hydrodisection was noticed around the Saphenous nerve. Patient will keep a pain log. Follow up plans and appointments were discussed with the patient. Post procedure instruction was given. Having met discharge criteria, was discharged from the Pain Management Center. Preop pain score7/10 Post op pain score 0/10 Comments: Due to body habitus, there were some challenges with US visualization. I have seen and examined the patient and reviewed the fellow's above history and I agree with the details as written. I was the attending physician supervising the fellow in the above care and I was present with the fellow for the entire procedure. Cadence Eric MD Pain Management Center Assisant Professor of Anesthesiology [facility] [address] [phone] / [facility] * Op Note - Cadence Eric MD - 11/16/2023 11:00 AM EDT Pain Management Operative Note Patient Name: Etelvina Cuadra : [id number] MR#: [id number] Case Date: 11/16/2023 Surgeon: Surgeons and Role: * Cadence Eric MD - Primary Present on Admission: 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 Postlaminectomy syndrome of lumbar region Postoperative diagnosis: 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 Postlaminectomy syndrome of lumbar region Procedure(s) (LRB): ELECTRONIC HERNANDEZ PROG., PUMP- DRUG INFUS; W/ REPROGRAM & REFILL REQ (WRVU 0.9) (N/A) Pre-procedure assessment: Patient reports [...] mL Computer predicted residual volume in pump: 20 ml Measured residual volume in pump: 20 ml Medication or Dose Changes: no Is dose change >30%? no Is concentration of drug different? no Estimated Replacement 12/03 Empty syringe concentration verified by insurance checker: yes If concentration of drug is [...] instilled into the pump according to the building rental superintendent's directions without difficulty. Therewas no evidence of [...] appropriate. I completed this procedure without assistance Post procedure assessment: Patient had no discrepancy with expected volumes and easy to withdrawal all injected medication. Plan for patient to return to clinic after 1.5 hours. At discharge from procedure area after 40 min patient was alert and no concerns. Cadence Eric MD Pain Management Center Voice Intercept Technician of Anesthesiology [facility] [address] [phone] / [facility] documented in this encounter Plan of Treatment Upcoming Encounters Date Type Department Care Team (Latest Contact Info) Description 04/06/2024 11:30 AM EST Hospital Encounter Outpatient [place] [address] Cadence Erci MD [facility] [place] [address] 04/06/2024 11:30 AM EST - 04/06/2024 12:50 PM EST Surgery Outpatient [place] [address] Cadence Eric MD [facility] [place] [address] IMPLANT NEUROSTIMULATOR ELECTRODES, PERIPHERAL NERVE (WRVU 5.76) 04/14/2024 2:30 PM EST Office Visit Pain [place] [address] Cadence Eric MD [facility] [place] [address] Scheduled Procedures Name Priority Associated Diagnoses Date/Ti [...] Procedure Name Priority Date/Time Associated Diagnosis Comments POCT GLUCOSE Routine 11/16/2023 1:10 PM EDT Injection Anes Agent &/Or Steroid Other Peripheral Nerve/Branch (04570) 11/16/2023 10:45 AM EDT 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 Anal Inf Imagery Analyst W ReproRefil(33600) 11/16/2023 10:45 AM EDT Postlaminectomy syndrome of lumbar region Presence of intrathecal pump NERVE BLOCK, OTHER PERIPHERAL NERVE OR BRANCH Routine 11/16/2023 10:08 AM EDT 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 documented in this encounter Results * POCT Glucose (11/16/2023 1:10 PM EDT) Glucose, POC 118 65 - 199 mg/dL [facility] Comment: Supplemental ranges: <140 mg/dL before meals <180 mg/dL all other times of the day Blood 11/16/2023 1:10 PM EDT 11/16/2023 1:10 PM EDT Cadence Eric MD POINT OF CARE DHIRAJ T ORDERABLES [facility] [place] [address] documented in this encounter Visit Diagnoses Diagnosis 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- Primary Saphenous neuralgia, right documented in this encounter Admitting Diagnoses Diagnosis 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 documented in this encounter Active and Recently Administered Medications Times are shown in EDT. PRN Medication Order 11/14/2023 11/15/202311/16/2023 BUPivacaine (pf) (Marcaine) (2.5 mg/mL) 0.25% injection (CANCELED) PRN, Starting on Thu11/16/23 at 1119, Until Thu11/16/23 at 1337, Intra-Operative (Intra-Procedure), Routine 1119 (Given - Provid er: Mattie Marcus MD) methylPREDNISolone acetate (DEPO-Medrol) (40 mg/mL) injection (CANCELED) PRN, Starting on Thu11/16/23 at 1119, Until Thu11/16/23 at 1337, Intra-Operative (Intra-Procedure), Routine 1119 (Given - Provid er: Mattie Marcus MD) documented in this encounter Care Teams Spinning Doffer Relationship Specialty Start Date End Date Ja Ordaz MD [address] [place] [address] PCP - General Emergency Medicine 03/11/21 documented as of this encounter
--- OUTSIDE RECORDS SUMMARY | 2024-04-05 16:22 | XMS_ITS | Encounter Summary ---
Author Organization [facility] Address [facility] [place] [address] Care Team Providers Care Reconciliation Specialist Name Role Phone Ja Ordaz MD Primary Care Provider [phone] Encounter Details Date Type Department Care Team (Late st Contact Info) Description 11/16/2023 10:30 AM EDT - 11/16/2023 11:00 AM EDT [place] [address] Cadence Eric MD [facility] [place] [address] NERVE BLOCK, OTHER PERIPHERAL NERVE OR BRANCH (WRVU 0.75) Social History Tobacco Use Types Packs/Day Years [...] Rate - - Oxygen Saturation 98% 11/16/2023 11:00 AM EDT Inhaled Oxygen Concentration - - [...] daily. 2 gummies daily=4MG NARCAN 4 mg/actuation [place], Non-Aerosol instill 1 spray in 1 NOSTRIL if needed for opioid overdose may re... (REFER TO PRESCRIPTION NOTES). 0 12/08/2018 multivitamin with minerals Tablet Take 1 tablet by mouth daily. morphine sulfate/D5W (MORPHINE IN D5W) 1 mg/mL Prefilled Pump [place] Inject as directed. Has intrathecal pump with [...] date: 11/16/2023 Attending Physician: Cadence Eric MD [facility] PREPROCEDURE HISTORY AND [...] Fellow, PGY5 [facility] [place] [address] / documented in this encounter Miscellaneous Notes * Op Note - Cadence Eric MD - 11/16/2023 11:00 AM EDT Pain Management Operative Note Patient Name: Etelvina Cuadra : [id number] MR#: [id number] Case Date: 11/16/2023 Surgeon: Surgeons and Role: * Cadence rEic MD - Primary * Mattie Marcus MD [...] Pain Management Center Assisant Professor of Anesthesiology [facility] [address] [phone] / [facility] * Op Note - Cadence Eric MD - 11/16/2023 11:00 AM EDT Pain Management Operative Note Patient Name: Etelvina Cuadra DOB: [id number] MR#: [id number] Case Date: 11/16/2023 Surgeon: Surgeons and Role: * Cadence rEic MD - Primary Present on Admission: Chronic [...] 12/03 Empty syringe concentration verified by photo checker: yes If concentration of drug is [...] instilled into the pump according to the salesperson flowers's directions without difficulty. Therewas no evidence of [...] concerns. Cadence Eric MD Pain Management Center Button Cutter of Anesthesiology [facility] [address] [phone] / [facility] documented in this encounter Plan of Treatment Upcoming Encounters Date Type Department Care Team (Latest Contact Info) Description 04/06/2024 11:30 AM EST Hospital Encounter [place]patient [place] [address] Cadence Eric MD [facility] [place] [address] 04/06/2024 11:30 AM EST - 04/06/2024 12:50 PM EST Surgery [place]patient [place] [address] Cadence Eric MD [facility] [place] [address] IMPLANT NEUROSTIMULATOR ELECTRODES, PERIPHERAL NERVE (WRVU 5.76) 04/14/2024 2:30 PM EST Office Visit [place] [address] Cadence Eric MD [facility] [place] [address] Scheduled Procedures Name Priority Associated Diagnoses Date/Ti [...] Anes Agent &/Or Steroid Other Peripheral Nerve/Branch (66312) 11/16/2023 10:45 AM EDT 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 NERVE BLOCK, OTHER PERIPHERAL NERVE OR BRANCH Routine 11/16/2023 10:08 AM EDT 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 documented in this encounter Results * POCT Glucose (11/16/2023 1:10 PM EDT) Glucose, POC 118 65 - 199 mg/dL [facility] Comment: Supplemental ranges: <140 mg/dL before meals <180 mg/dL all other times of the day Blood 11/16/2023 1:10 PM EDT 11/16/2023 1:10 PM EDT Cadence Eric MD POINT OF CARE DHIRAJ T ORDERABLES [facility] [place] [address] documented in this encounter Visit Diagnoses Diagnosis 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- Primary 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 Saphenous neuralgia, right documented in this encounter Admitting Diagnoses Diagnosis 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 documented in this encounter Administered Medications Inactive Administered Medications - up to 3 most recent administrations Medication Order MAR Action Action Date Dose Rate Site BUPivacaine (pf) (Marcaine) (2.5 mg/mL) 0.25% injection PRN, Starting on Thu11/16/23 at 1119, Until Thu11/16/23 at 1337, Intra-Operative (Intra-Procedure), Routine Given 11/16/2023 11:19 AM EDT 6 mLs methylPREDNISolone acetate (DEPO-Medrol) (40 mg/mL) injection PRN, Starting on Thu11/16/23 at 1119, Until Thu11/16/23 at 1337, Intra-Operative (Intra-Procedure), Routine Given 11/16/2023 11:19 AM EDT 40 mg documented in this encounter Active and Recently Administered Medications Times are shown in EDT. PRN Medication Order 11/14/2023 11/15/2023 11/16/2023 BUPivacaine (pf) (Marcaine) (2.5 mg/mL) 0.25% injection (CANCELED) PRN, Starting on Thu11/16/23 at 1119, Until Thu11/16/23 at 1337, Intra-Operative (Intra-Procedure), Routine 1119 (Given - Provid er: Mattie Marcus MD) methylPREDNISolone acetate (DEPO-Medrol) (40 mg/mL) injection (CANCELED) PRN, Starting on Thu11/16/23 at 1119, Until Thu11/16/23 at 1337, Intra-Operative (Intra-Procedure), Routine 1119 (Given - Provid er: Mattie Marcus MD) documented in this encounter Care Teams Reconciliation Specialist Relationship Specialty Start Date End Date Ja Ordaz MD [address] [place] [address] PCP - General Emergency Medicine 03/11/21 documented as of this encounter
--- OUTSIDE RECORDS SUMMARY | 2024-04-05 16:22 | XMS_ITS | Encounter Summary ---
Author Organization [facility] [place] [address] Care Team Providers Care Nipple Maker Name Role Phone Ja Ordaz MD Primary Care Provider [phone] Reason for Visit * Auth/Cert (Routine) Specialty Diagnoses / Procedures Referred By Cindy t Referred To Contact Diagnoses Post laminectomy syndrome Procedures PRO ELECTRONIC PUMP ANALYSIS W REPROGRAMMING AND REFILL BY /DRIVER/MERCHANDISER ELECTRONIC HERNANDEZ PROG., PUMP- DRUG INFUS; W/ REPROGRAM & REFILL REQ (WRVU 0.9) Cadence Eric MD [facility] [place] [address] [facility] Referral ID Status Reason Start Date Expiration Date Visits Re quested Visits Authorized [id number] 1 1 Encounter Details Date Type Department Care Team (Late st Contact Info) Description 05/22/2023 10:45 AM EST Ancillary [place] [address] Cadence Eric MD [facility] [place] [address] Social History Tobacco Use Types Packs/Day Years [...] AM EST Hospital Encounter [place] [address] Cadence Eric MD [facility] [place] [address] 04/06/2024 11:30 AM EST - 04/06/2024 12:50 PM EST Surgery [place] [address] Cadence Eric MD [facility] [place] [address] IMPLANT NEUROSTIMULATOR ELECTRODES, PERIPHERAL NERVE (WRVU 5.76) 04/14/2024 2:30 PM EST Office Visit [facility] [place] [address] Cadence Eric MD [facility] [address] Scheduled Procedures Name Priority Associated Diagnoses Date/Ti [...] STORAGE ONLY PAIN CLINIC C ARM Routine 05/22/2023 11:38 AM EST documented in this encounter Results * Film Library- Storage Only pain Clinic C-Arm (05/22/2023 11:38 AM EST) Narrative [facility] - 05/22/2023 11:38 AM EST See PACS for result report. Cadence Eric MD IMG FILM LIBRARY ORDERABLES [place], [place] documented in this encounter Visit Diagnoses Not on filedocumented in this encounter Care Teams Nipple Maker Relationship Specialty Start Date End Date Ja Ordaz MD [address] [place] [address] PCP - General Emergency Medicine 03/11/21 documented as of this encounter
--- OUTSIDE RECORDS SUMMARY | 2024-04-05 16:22 | XMS_ITS | Encounter Summary ---
Author Organization [facility] Address [facility] [place] [address] Care Team Providers Care Geodesist Name Role Phone Ja Ordaz MD Primary Care Provider [phone] Encounter Details Date Type Department Care Team (Late st Contact Info) Description 12/18/2023 Orders [place] [address] Cadence Eric MD [facility] [place] [address] Saphenous neuralgia, right Social History Tobacco Use Types Packs/Day Years [...] AM EST Hospital Encounter Outpatient [place] [phone] Cadence Eric MD [facility] [place] [address] 04/06/2024 11:30 AM EST - 04/06/2024 12:50 PM EST Surgery [place]patient [place] [address] Cadence Eric MD [facility] [place] [address] IMPLANT NEUROSTIMULATOR ELECTRODES, PERIPHERAL NERVE (WRVU 5.76) 04/14/2024 2:30 PM EST Office Visit [place] [address] Cadence Eric MD [facility] [place] [address] Scheduled Orders Name Type Priority Associated Diagnoses Orde r Schedule SURGICAL CASE REQUEST: IMPLANT NEUROSTIMULATOR ELECTRODES, PERIPHERAL NERVE (WRVU 5.76) Procedures Routine Saphenous neuralgia, right Ordered: 12/21/2023 Scheduled Procedures Name Priority Associated Diagnoses Date/Ti me IMPLANT NEUROSTIMULATOR ELECTRODES, PERIPHERAL NERVE (WRVU 5.76) Yes Saphenous neuralgia, right 04/06/2024 11:30 AM EST IMPLANT NEUROSTIMULATOR ELECTRODES, PERIPHERAL NERVE (WRVU 5.76) Saphenous neuralgia, 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 Neuropathic pain COLONOSCOPY,SCREENING (WRVU 3.26) Health maintenance examination-screening colo documented as of this encounter Visit Diagnoses Diagnosis Saphenous neuralgia, right Saphenous neuralgia, right documented in this encounter Care Teams Geodesist Relationship Specialty Start Date End Date Ja Ordaz MD [address] [place] [address] PCP - General Emergency Medicine 03/11/21 documented as of this encounter
--- OUTSIDE RECORDS SUMMARY | 2024-04-05 16:22 | XMS_ITS | Encounter Summary ---
Author Organization [facility]a [facility] [place] [address] Care Team Providers Care Roving Winder Name Role Phone Ja Ordaz MD Primary Care Provider [phone] Reason for Referral * Consultation (Routine) - Closed Specialty Diagnoses / Procedures Referred By Cindy wooten Referred To Contact Weight and Wellness Diagnoses Class 3 severe obesity with serious comorbidity and body mass index (BMI) of 45.0 to 49.9 in adult, unspecified obesity type Dawson Omalley MD [facility] [place] [address] [facility] [place] [address] Referral ID Status Reason Start Date Expiration Date V isits Requested Visits Authorized [id number] Closed Consult, Test & Treat 06/17/2023 06/16/2024 1 1 Encounter Details Date Type Department Care Team (Late st Contact Info) Description 06/17/2023 8:00 AM EST Office [place] [address] [facility] [place] [address] Class 3 severe obesity with serious comorbidity and body mass index (BMI) of 45.0 to 49.9 in adult, unspecified obesity type Social History Tobacco Use Types Packs/Day Years [...] Sign Reading Time Taken Comments Blood Pressure 125/61 06/17/2023 7:52 AM EST Pulse 66 06/17/2023 7:52 AM EST Temperature 36.9 ??C (98.5 ??F) 06/17/2023 7 :52 AM EST Respiratory Rate 20 06/17/2023 7:52 AM EST Oxygen Saturation 98% 06/17/2023 7:5 2 AM EST Inhaled Oxygen Concentration - - Weight 113 kg (249 lb 3.2 oz) 06/17/2023 7:52 AM EST Height 151 cm (4' 11.45) 06/17/2023 7: 52 AM EST Hard a hard time to stand completly staight. Body Mass Index 49.57 06/17/2023 7:52 AM EST documented in this encounter Progress Notes * Dawson Omalley MD - 06/17/2023 8:00 AM EST Images from the original note were not included. Division of Endocrinology Date of Visit: 06/17/2023 Patient Name: Etelvina Cuadra : 1960 PCP: Ja Ordaz MD Mrs Etelvina Aponte Walth 62yo women here for periprosthetic loosening follow-up. Started Tymlos sample and it caused palpitations and CP and was stopped. I prescribed Forteo, it has not been filled as insurance also did not approve it. Munjaro was denied for weight loss. PCP has prescribed ozempic but it was denied. After knee replacement more then a a year ago, she still can not walk due to severe pain in bone where prothesis ends, if leg is off ground no pain at all. During last year she has gain a lot of weight as I can not move. BMD by DXA 04/2023 L1, L2, L4 -0.9 SD, with TBS -2.1SD LFN -0.6 SD, with TBS -1.2SD LH 0 SD Distal 1.3 -1.3 SD on T score, Other risk factors for fracture/osteoporosis are: [] Yes [x] No Smoking, if yes, how long [] Yes [x] No Drinking alcohol. If yes, how much [] Yes [x] No Exercise If yes how long and what kind of exercise [x] Yes [] No Stomach or bowel surgery. If yes, When and what kind [] Yes [x] No Loose bowel movements. If yes, how frequently and how long [] Yes [x] No Loss of height [x] Yes [] No History of kidney stones? If yes, when and how many episodes? 4 episodes in as all I did drink was diet soda. [] Yes [x] No Kidney or liver problems? If yes, what kind and how long? Average time spent outside in direct sun a day [] 0-5 min [] 5-10 min [] 11-15 min [] 16-20 min [] 21-25 min [] 26-30 min [x] >30 min For women: Start of menstrual cycle 11 End of menstrual cycle 48, no HRT Daily calcium intake: [] 0-100 mg [] 101-200 mg [x] 201-300 mg MVI [x] 301-400 mg one Ca carbonate pill daily [x] 401-500 mg food [] 501-600 mg [] 601-700 mg [] 701-900 mg [] 901-1100 mg [] 8590-1953 mg [] 3039-5790 mg [] Above 1500 mg Medications: Current Outpatient Medications on File Prior to Visit Medication Sig Dispense Refill amoxicillin (Amoxil) 500 mg tablet Take 4 tablets by mouth once as needed. Take 2 g (4 tablets) onehour prior to dental procedures 20 tablet 0 magnesium hydroxide (CASTELLON MILK OF MAGNESIA ORAL) Take by mouth as needed. baclofen (Lioresal) 10 mg tablet Take 10 mg by mouth 2 times daily as needed. oxyCODONE (Roxicodone) 15 mg tablet Take 15 mg by mouth 3 times daily as needed for Pain. EPINEPHrine 0.3 mg/0.3 mL Auto-Injector acetaminophen (Tylenol) 500 mg Tablet Take 2 tablets by mouth every 8 hours. 0 citalopram (CeleXA) 20 mg Tablet Take 20 mg by mouth nightly. levothyroxine (Synthroid) 100 mcg Tablet Take 1 tablet by mouth daily. PATIENT REQUESTS SYNTHROID(NOT GENERIC) (Patient taking differently: Take 100 mcg by mouth nightly. PATIENT REQUESTS SYNTHROID(NOT GENERIC)) 90 tablet 1 fenofibrate (TRIGLIDE) 160 mg Tablet Take 1 tablet by mouth nightly. (Patient taking differently: Take 160 mg by mouth daily. Take 1/2 tablet nightly) 90 tablet 1 calcium carbonate-vitamin D3 (Os-Nico 500 + D3) 500mg (1,250mg) -600 unit Tablet Take 1 tablet by mouth Daily. Bifidobacterium infantis (ALIGN) 4 mg Capsule Take by mouth daily. 2 gummies daily=4MG NARCAN 4 mg/actuation [place], Non-Aerosol instill 1 spray in 1 NOSTRIL if needed for opioid overdosemay re... (REFER TO PRESCRIPTION NOTES). 0 multivitamin with minerals Tablet Take 1 tablet by mouth daily. morphine sulfate/D5W (MORPHINE IN D5W) 1 mg/mL Prefilled Pump [place] Inject as directed. Has intrathecal pump with continuous rate and Has 5 preset prn boluses pt may give herself Teriparatide (Forteo) 20 mcg/dose (600mcg/2.4mL) Pen Injector Inject 0.08 mLs subcutaneously daily.(Patient not taking: Reported on 06/17/2023) 2.4 mL 11 tirzepatide 2.5 mg/0.5 mL Pen Injector Inject 2.5 mg subcutaneously once a week. (Patient not taking: Reported on 06/17/2023) 0.5 mL 3 estradioL (Vagifem) 10 mcg vaginal tablet INSERT 1 TABLET INTO VAGINA DAILY FOR 2 WEEKS THEN TWICE WEEKLY AFTER THAT epinephrine HCl/PF (EPINEPHrine, pf,) 1 mg/mL (1:1,000) Solution Inject as directed. No current facility-administered medications on file prior to visit. PMH: Patient Active Problem List Diagnosis Code Postlaminectomy syndrome of lumbar region M96.1 Acquired hypothyroidism E03.9 Cervicalgia M54.2 Chronic pain disorder G89.4 Chronic bilateral low back pain with bilateral sciatica M54.42, M54.41, G89.29 Chronic prescription opiate use Z79.891 Primary osteoarthritis of left knee M17.12 Morbid obesity with BMI of 45.0-49.9, adult E66.01, Z68.42 Presence of intrathecal pump Z97.8 Anxiety and depression F41.9, F32.A HLD (hyperlipidemia) E78.5 Morbid obesity E66.01 Osteoarthritis of left knee M17.12 s/p Left Total Knee Arthroplasty - 03/29/2020 Dr. Jacobson M17.12 Allergic rhinitis J30.9 Pain in joint, lower leg M25.569 S/P TKR (total knee replacement), left Z96.652 s/p revision L TKA 09/10/21 (Dr. Sanchez) Z96.652 Allergies Allergen Reactions Latex, Natural Rubber takes my whole skin away Peanut Anaphylaxis Peanut Oil Anaphylaxis Rice Anaphylaxis Wheat Anaphylaxis Wheat Bran Anaphylaxis Wheat Flour Anaphylaxis Wheat Germ Oil Anaphylaxis Wheat Starch Anaphylaxis Adhesive Hives Canine Protein Containing Products Itching Gabapentin Hives Hallucinations. Shouldn't be given alongside Morphine Hazelnut Other (See Comments) Hydrocodone Other (See Comments) Bad headache; tolerates HYDROmorphone 5.6.22 Hydrocodone-Acetaminophen Other (See Comments) Bad headache; tolerates HYDROmorphone 5.6.22 Hydrocodone-Ibuprofen Other reaction(s): Unknown/Not Verified; tolerates HYDROmorphone 5.6.22 Rofecoxib Tetracyclines Itching Wool Itching and Rash Family History Problem Relation Age of Onset Coronary Artery Disease Father Myocardial Infarction Father Hypertension Father Breast Cancer Maternal Grandmother Anesthesia Reaction Neg Hx Diabetes Neg Hx Social History Socioeconomic History Marital status: Spouse name: Not on file Number of children: Not on file Years of education: Not on file Highest education level: Not on file Occupational History Not on file Tobacco Use Smoking status: Former Packs/day: .25 Types: Cigarettes Quit date: 09/23/1991 Years since quittin.7 Smokeless tobacco: Never Vaping Use Vaping Use: Never used Substance and Sexual Activity Alcohol use: No Drug use: No Sexual activity: Not on file Other Topics Concern Not on file Social History Narrative Not on file Social Determinants of Health Financial Resource Strain: Not on file Food Insecurity: Not on file Transportation Needs: Not on file Physical Activity: Not on file Intimate Partner Violence: Not on file Housing Stability: Not on file Physical Examination: BP 125/61 (BP Location (NBP): Right arm, Patient Position: Sitting, BP Cuff Sizes: Large Adult (32-43 cm)) Pulse 66 Temp 36.9 ??C (98.5 ??F) (Temporal) Resp 20 Ht 151 cm (4' 11.45) Comment: Hard a hard time to stand completly staight. Wt 113 kg (249 lb 3.2 oz) SpO2 98% BMI 49.57 kg/m?? oriented x 3, in nad. Labs 11/2022 Ca 9.3, Phos 3.4, A1C 5.8, AP 65, 25-D 38, PTH 40, CTX 356, 24h urine Ca 220mg 08/2022 CBC in good range 09/2021 Chem 7 in good range 04/[address] IMPRESSION 1. 2-year-old revised total knee arthroplasty. 2. Interval developed 3 mm radiolucency surrounding the femoral stem, concern for loosening and/or infection. 3. No radiolucency surrounding the tibial component. The reported tibial stress response does not correspond to any focus of periostitis or fracture. Assessment and Plan Glucose intolerance/severe obesity/possible osteoporosis: I do think gaining weight made prothesis situation worse as put more pressure on it. Joselyn was denied, her BMI is 50, will ask WEIGHT AND WELNESS to help. A. As patient's Ca intake is 300mg from food, MVI and and from 3 Ca gummies ~750mg has changed to just one Ca pill, will send me pictures of it as will need to increase dose. PTH at good level, 24h urine Ca as well B. Patient also does have Vitamin D at goal, 30 ng/ml and above. C. Will order BMD by DXA in 2-3 years D. As 25 Vit D, PTH is at normal range metaanalysis show benefit of all osteoporosis medications for loose prothesis but particularly anabolic agents, could not tolerate Tymlos with CP, switched to Forteo yet again it was not approved. She is changing her insurance to Medicare at the end of June, will retry again after that. I will talk to Dr. Sanchez. Tootie. I will schedule patient for outpatient visit at 12 weeks. Thank you for allowing me to participate in the care of this very pleasant patient. I spend 30min in chart review, labs, discussing her weight, periprosthetic loosening of bone, writing my note. Sincerely, Dawson Omalley MD Professor of Endocrinology documented in this encounter Plan of Treatment Upcoming Encounters Date Type Department Care Team (Latest Contact Info) Description 04/06/2024 11:30 AM EST Hospital Encounter [place] [address] [facility] [place] [address] 04/06/2024 11:30 AM EST - 04/06/2024 12:50 PM EST Surgery [place] [address] [facility] [place] [address] IMPLANT NEUROSTIMULATOR ELECTRODES, PERIPHERAL NERVE (WRVU 5.76) 04/14/2024 2:30 PM EST Office Visit [place] [address] [facility] [place] [address] Scheduled Procedures Name Priority Associated Diagnoses Date/Ti me IMPLANT NEUROSTIMULATOR ELECTRODES, PERIPHERAL NERVE (WRVU 5.76) Yes Saphenous neuralgia, right 04/06/2024 11:30 AM EST IMPLANT NEUROSTIMULATOR ELECTRODES, PERIPHERAL NERVE (WRVU 5.76) Saphenous neuralgia, 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 Neuropathic pain COLONOSCOPY,SCREENING (WRVU 3.26) Health maintenance examination-screening colo Scheduled Referrals Name Type Priority Associated Diagnoses Orde r Schedule Referral to [facility] Outpatient Referral Routine Class 3 severe obesity with serious comorbidity and body mass index (BMI) of 45.0 to 49.9 in adult, unspecified obesity type Ordered: 06/17/2023 documented as of this encounter Visit Diagnoses Diagnosis Class 3 severe obesity with serious comorbidity and body mass index (BMI) of 45.0 to 49.9 in adult, unspecified obesity type Saphenous neuralgia, right documented in this encounter Care Teams Roving Winder Relationship Specialty Start Date End Date Ja Ordaz MD [address] [place] [id number] PCP - General Emergency Medicine 03/11/21 documented as of this encounter
--- OUTSIDE RECORDS SUMMARY | 2024-04-05 16:22 | XMS_ITS | Encounter Summary ---
Author Organization [facility] [place] [address] Care Team Providers Care Reimbursement Specialist Name Role Phone Ja Ordaz MD Primary Care Provider [phone] Encounter Details Date Type Department Care Team (Late st Contact Info) Description 12/09/2023 [place] [address] Cadence Eric MD [facility] [place] [address] Postlaminectomy syndrome of lumbar region; Presence of intrathecal pump Social History Tobacco Use Types Packs/Day Years [...] AM EST Hospital Encounter [place]patient [place] [phone] Cadence Eric MD [facility] [place] [address] 04/06/2024 11:30 AM EST - 04/06/2024 12:50 PM EST Surgery [place] [address] Cadence Eric MD [facility] [place] [address] IMPLANT NEUROSTIMULATOR ELECTRODES, PERIPHERAL NERVE (WRVU 5.76) 04/14/2024 2:30 PM EST Office Visit [facility] [place] [address] Cadence Eric MD [facility] [place] [address] Scheduled Procedures Name Priority Associated Diagnoses Date/Ti [...] right documented in this encounter Care Teams Reimbursement Specialist Relationship Specialty Start Date End Date Ja Ordaz MD [address] [place] [address] PCP - General Emergency Medicine 03/11/21 documented as of this encounter
--- OUTSIDE RECORDS SUMMARY | 2024-04-05 16:22 | XMS_ITS | Encounter Summary ---
Author Organization [facility] [place] [address] Care Team Providers Care Ticket Collector Name Role Phone Ja Ordaz MD Primary Care Provider [phone] Reason for Visit * Auth/Cert (Routine) Specialty Diagnoses / Procedures Referred By Contac t Referred To Contact Diagnoses Postlaminectomy syndrome of lumbar region Presence of intrathecal pump post laminectomy syndrome Procedures PRO ELECTRONIC PUMP ANALYSIS W REPROGRAMMING AND REFILL BY /NAHID ELECTRONIC HERNANDEZ PROG., PUMP- DRUG INFUS; W/ REPROGRAM & REFILL REQ (WRVU 0.9) Cadence Eric MD [facility] [place] [address] [facility] Referral ID Status Reason Start Date Expiration Date Visits Re quested Visits Authorized [id number] 1 1 Encounter Details Date Type Department Care Team (Late st Contact Info) Description 03/04/2024 2:00 PM EDT - 03/04/2024 3:00 PM EDT Surgery Pain Management [facility] [place] [phone] Cadence Eric MD [facility] [place] [address] ELECTRONIC HERNANDEZ PROG., PUMP- DRUG INFUS; W/ [...] daily. 2 gummies daily=4MG NARCAN 4 mg/actuation [place], Non-Aerosol instill 1 spray in 1 NOSTRIL if needed for opioid overdose may re... (REFER TO PRESCRIPTION NOTES). 0 12/08/2018 multivitamin with minerals Tablet Take 1 tablet by mouth daily. morphine sulfate/D5W (MORPHINE IN D5W) 1 mg/mL Prefilled Pump [place] Inject as directed. Has intrathecal pump with continuous rate and Has 5 preset prn boluses pt may give herself documented as of this encounter H&P Notes * Herbert Jackson, DO - 02/24/2024 11:01 AM EDT Patient Name: Etelvina Cuadra Patient Age: 63 y.o. Birthdate: 1960 Admit date: 03/04/2024 Attending Physician: Cadence Eric MD [facility] PREPROCEDURE HISTORY AND [...] Fellow Physician [facility] [place] [address] / documented in this encounter Miscellaneous Notes * Op Note - Cadence Eric MD - 03/04/2024 2:19 PM EDT Pain Management Operative Note Patient Name: Etelvina Cuadra DOB: [id number] MR#: [id number] Case Date: 03/04/2024 Surgeon: Surgeons and Role: [...] Replacement 12/03 Empty syringe concentration verified by purchase order checker: yes If concentration of drug is [...] drapes were applied as provided with the PF [employer] refill kit. A 22 gauge Moraes non-coring [...] instilled into the pump according to the software configuration engineer's directions without difficulty. Therewas no evidence of [...] Pain Management Center Assisant Professor of Anesthesiology [place] [facility] [address] [address] / [facility] documented in this encounter Plan of Treatment Upcoming Encounters Date Type Department Care Team (Latest Contact Info) Description 04/06/2024 11:30 AM EST Hospital Encounter Outpatient [place] [address] Cadence Eric MD [facility] [place] [address] 04/06/2024 11:30 AM EST - 04/06/2024 12:50 PM EST Surgery Outpatient [place] [address] Cadence Eric MD [facility] [place] [address] IMPLANT NEUROSTIMULATOR ELECTRODES, PERIPHERAL NERVE (WRVU 5.76) 04/14/2024 2:30 PM EST Office Visit [facility] [place] [address] Cadence Eric MD [facility] [place] [address] Scheduled Procedures Name Priority Associated Diagnoses Date/Ti [...] Date/Time Associated Diagnosis Comments Anal Inf Business Consultant W ReproRefil([id number]) 03/04/2024 2:00 PM EDT Postlaminectomy syndrome of lumbar region Presence of intrathecal pump ELECTRONIC HERNANDEZ PROG., PUMP- DRUG INFUS; W/ REPROGRAM & REFILL MILAGRO DAWSON Routine 03/04/2024 1:40 PM EDT Postlaminectomy syndrome of lumbar region Presence of intrathecal pump documented in this encounter Visit Diagnoses Diagnosis Presence of intrathecal pump- Primary Postlaminectomy syndrome of lumbar region Postlaminectomy syndrome, lumbar region Postlaminectomy syndrome of lumbar region Postlaminectomy syndrome, lumbar region Presence of intrathecal pump Saphenous neuralgia, right documented in this encounter Admitting Diagnoses Diagnosis Presence of intrathecal pump documented in this encounter Care Teams Ticket Collector Relationship Specialty Start Date End Date Ja Ordaz MD [address] [place] [address] PCP - General Emergency Medicine 03/11/21 documented as of this encounter
--- OUTSIDE RECORDS SUMMARY | 2024-04-05 16:22 | XMS_ITS | Encounter Summary ---
Author Organization [facility] [place] [address] Care Team Providers Care Content Management Consultant Name Role Phone Ja Ordaz MD Primary Care Provider [phone] Reason for Visit * Reason Onset Date Comments Post Procedure Call 12/18/2023 Post Sapheno us Nerve Block Encounter Details Date Type Department Care Team (Late st Contact Info) Description 12/18/2023 Telephone [place] [address] Etelvina Bishop RN Post Procedure Call (Post Saphenous Nerve Block) Social History Tobacco Use Types Packs/Day Years [...] Encounter - Etelvina Bishop RN - 12/18/2023 9:51 AM EDT Post-procedure telephone follow up: patient reporting their response to the Saphenous Nerve Block procedure performed on 11/16/23 in the Pain Management Center by Cadence Eric MD. This is patient's: first Saphenous Nerve block Patient reports that after the procedure they experienced: _x_ Patient reported pre-block numeric pain scale: 7 /10 1 hour post block: 1 /10 2 hour post block: 3 hour post block: 4 hour post block: _x_ Post-procedure pain has been reduced by 90%. (> 80% Medicare/MVP/Medicaid) _x_ Post-procedure pain has been reduced by 90%. (> 50% all other insurers) _x_ Pain relief: moderate If pain is reduced, it lasted: For a week Yes 24 hours or greater Lasted for a week What is current pain score on a scale of 0-10? 10 Does patient's pain make activities of daily living difficult? If yes, please describe what activity and level of difficulty. Yes. Hard to walk, Hard to get sleep Hard to do house work . Hard to get dressed. Pertinent recent trauma or surgery? no If yes; consult w referring provider If No, proceed Review of Pertinent Medical History for changes since last MBB: - h/o Thrombocytopenia/bleeding tendency/platelet dysfunction: yes Anemia - h/o Liver disease; abnormal liver function: no - h/o Chronic kidney disease (CKD); abnormal kidney function: no - Patient on dialysis? no -Patient has pacemaker/defibrillator: no Is patient taking an anticoagulant? None Is patient taking any NSAIDS/supplements? Multivitamin Is patient taking aspirin? no If yes, is it prescribed? no If yes, what reason is it prescribed? Is patient taking Antibiotics? No Is patient a diabetic? No Hemoglobin A1C? Has patient been on greater than 40mg of steroid 14 days or longer? No Has patient had any steroid injections anywhere in his/her body within the last two weeks? No Does patient request sedation? no Does patient need NPO guidelines? no Does patient have allergies to contrast/local anesthetic/steroid? No Any changes? no Based on the information provided above and after discussion with the patient, the following actions will be taken: _x_ Patient meets criteria to proceed to second Right Saphenous Nerve Block , order will be pended to Dr. Eric Patient denies further questions at this time and expressed understanding of plan. Encouraged patient to call pain clinic RN for future questions or concerns. documented in this encounter Plan of Treatment Upcoming Encounters Date Type Department Care Team (Latest Contact Info) Description 04/06/2024 11:30 AM EST Hospital Encounter [place] [address] Cadence Eric MD [facility] [place] [address] 04/06/2024 11:30 AM EST - 04/06/2024 12:50 PM EST Surgery [place] [address] Cadence Eric MD [facility] [place] [address] IMPLANT NEUROSTIMULATOR ELECTRODES, PERIPHERAL NERVE (WRVU 5.76) 04/14/2024 2:30 PM EST Office Visit [place] [address] Cadence Eric MD [facility] [place] [address] Scheduled Procedures Name Priority Associated Diagnoses Date/Ti [...] on filedocumented in this encounter Care Teams Content Management Consultant Relationship Specialty Start Date End Date Ja Ordaz MD [address] [place] [address] PCP - General Emergency Medicine 03/11/21 documented as of this encounter
--- OUTSIDE RECORDS SUMMARY | 2024-04-05 16:22 | XMS_ITS | Encounter Summary ---
Author Organization [facility] [place] [address] Care Team Providers Care Lip And Gate Builder Name Role Phone Ja Ordaz MD Primary Care Provider [phone] Encounter Details Date Type Department Care Team (Latest Contact Info) Description 04/23/2023 Travel Social History Tobacco Use Types Packs/Day [...] AM EST Hospital Encounter [place]patient [place] [address] Cadence Eric MD [facility] [address] 04/06/2024 11:30 AM EST - 04/06/2024 12:50 PM EST Surgery [place] [phone] Cadence Eric MD [facility] [address] IMPLANT NEUROSTIMULATOR ELECTRODES, PERIPHERAL NERVE (WRVU 5.76) 04/14/2024 2:30 PM EST Office Visit [place] [address] Cadence Eric MD [facility] [address] Scheduled Procedures Name Priority Associated Diagnoses Date/Ti [...] on filedocumented in this encounter Care Teams Lip And Gate Builder Relationship Specialty Start Date End Date Ja Ordaz MD [address] [place] [id number] PCP - General Emergency Medicine 03/11/21 documented as of this encounter
--- OUTSIDE RECORDS SUMMARY | 2024-04-05 16:22 | XMS_ITS | Encounter Summary ---
Author Organization [facility] Address [facility] [place] [address] Care Team Providers Care Purifying Plant Operator Name Role Phone Ja Ordaz MD Primary Care Provider [phone] Encounter Details Date Type Department Care Team (Late st Contact Info) Description 11/16/2023 11:00 AM EDT - 11/16/2023 12:00 PM EDT [place] [address] Cadence Eric MD [facility] [place] [address] ELECTRONIC HERNANDEZ PROG., PUMP- DRUG INFUS; W/ [...] daily. 2 gummies daily=4MG NARCAN 4 mg/actuation [place], Non-Aerosol instill 1 spray in 1 NOSTRIL if needed for opioid overdose may re... (REFER TO PRESCRIPTION NOTES). 0 12/08/2018 multivitamin with minerals Tablet Take 1 tablet by mouth daily. morphine sulfate/D5W (MORPHINE IN D5W) 1 mg/mL Prefilled Pump [place] Inject as directed. Has intrathecal pump with [...] date: 11/16/2023 Attending Physician: Cadence Eric MD [facility] PREPROCEDURE HISTORY AND [...] Fellow, PGY5 [facility] [address] [place] [address] / documented in this encounter Miscellaneous Notes * Op Note - Cadence Eric MD - 11/16/2023 11:00 AM EDT Pain Management Operative Note Patient Name: Etelvina Cuadra : [id number] MR#: [id number] Case Date: 11/16/2023 Surgeon: Surgeons and Role: [...] Pain Management Center Assisant Professor of Anesthesiology [facility] [employer] [address] [address] / [facility] * Op Note - Cadence Eric MD - 11/16/2023 11:00 AM EDT Pain Management Operative Note Patient Name: Etelvina Cuadra : [id number] MR#: [id number] Case Date: 11/16/2023 Surgeon: Surgeons and Role: * Cadence Eric MD - Primary Present on Admission: 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 Postlaminectomy syndrome of lumbar region Postoperative diagnosis: 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 Postlaminectomy syndrome of lumbar region Procedure(s) (LRB): ELECTRONIC HERNANDEZ PROG., PUMP- DRUG INFUS; W/ REPROGRAM & REFILL MILAGRO DAWSON (WRVU 0.9) (N/A) Pre-procedure assessment: Patient [...] Replacement 12/03 Empty syringe concentration verified by job checker: yes If concentration of drug is [...] instilled into the pump according to the drapery worker's directions without difficulty. Therewas no evidence of [...] concerns. Cadence Eric MD Pain Management Center Linoleum Floor Installer of Anesthesiology [facility] [address] [address] / [facility] documented in this encounter Plan of Treatment Upcoming Encounters Date Type Department Care Team (Latest Contact Info) Description 04/06/2024 11:30 AM EST Hospital Encounter [place] [address] Cadence Eric MD [facility] [place] [address] 04/06/2024 11:30 AM EST - 04/06/2024 12:50 PM EST Surgery [place] [address] Cadence Eric MD [facility] [place] [address] IMPLANT NEUROSTIMULATOR ELECTRODES, PERIPHERAL NERVE (WRVU 5.76) 04/14/2024 2:30 PM EST Office Visit [facility] [place] [address] Cadence Eric MD [facility] [place] [address] Scheduled Procedures Name Priority Associated Diagnoses Date/Ti [...] POCT GLUCOSE Routine 11/16/2023 1:10 PM EDT Anal Inf Mold Maker Plastic Molds W ReproRefil([id number]) 11/16/2023 10:45 AM EDT Postlaminectomy syndrome of lumbar region Presence of intrathecal pump NERVE BLOCK, OTHER PERIPHERAL NERVE OR BRANCH Routine 11/16/2023 10:08 AM EDT 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 documented in this encounter Results * POCT Glucose (11/16/2023 1:10 PM EDT) Glucose, POC 118 65 - 199 mg/dL [facility] Comment: Supplemental ranges: <140 mg/dL before meals <180 mg/dL all other times of the day Blood 11/16/2023 1:10 PM EDT 11/16/2023 1:10 PM EDT Cadence Eric MD POINT OF CARE DHIRAJ T ORDERABLES [facility] [place] [address] documented in this encounter Visit Diagnoses Diagnosis 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- Primary Postlaminectomy syndrome of lumbar region Postlaminectomy syndrome, lumbar region Presence of intrathecal pump Saphenous neuralgia, right documented in this encounter Admitting Diagnoses Diagnosis 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 documented in this encounter Active and Recently Administered Medications Times are shown in EDT. PRN Medication Order 11/14/2023 11/15/202311/1511/16/2023 BUPivacaine (pf) (Marcaine) (2.5 mg/mL) 0.25% injection (CANCELED) PRN, Starting on Thu11/16/23 at 1119, Until Thu11/16/23 at 1337, Intra-Operative (Intra-Procedure), Routine 1119 (Given - Provid er: Mattie Marcus MD) methylPREDNISolone acetate (DEPO-Medrol) (40 mg/mL) injection (CANCELED) PRN, Starting on Thu11/16/23 at 1119, Until Thu11/16/23 at 1337, Intra-Operative (Intra-Procedure), Routine 1119 (Given - Provid er: Mattie Marcus MD) documented in this encounter Care Teams Purifying Plant Operator Relationship Specialty Start Date End Date Ja Ordaz MD [address] [place] [address] PCP - General Emergency Medicine 03/11/21 documented as of this encounter
--- OUTSIDE RECORDS SUMMARY | 2024-04-05 16:22 | XMS_ITS | Encounter Summary ---
Author Organization [facility] Address [facility] [place] [address] Care Team Providers Care Plastic Worker Name Role Phone Ja Ordaz MD Primary Care Provider Encounter Details Date Type Department Care Team (Late st Contact Info) Description 09/04/2023 Orders [place] [phone] Cadence Eric MD [facility] [place] [address] Postlaminectomy syndrome of lumbar region; Presence of intrathecal pump; 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 Social History Tobacco Use Types Packs/Day Years [...] (Latest Contact Info) Description 04/06/2024 11:30 AM [facility] Hospital Encounter [place] [phone] Cadence Eric MD [facility] [place] [address] 04/06/2024 11:30 AM EST - 04/06/2024 12:50 PM EST Surgery [place] [address] Cadence Eric MD [facility] [place] [address] IMPLANT NEUROSTIMULATOR ELECTRODES, PERIPHERAL NERVE (WRVU 5.76) 04/14/2024 2:30 PM EST Office Visit [place] [address] Cadence Eric MD [facility] [place] [address] Scheduled Procedures Name Priority Associated Diagnoses Date/Ti [...] syndrome, lumbar region Presence of intrathecal pump 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 Saphenous neuralgia, right documented in this encounter Care Teams Plastic Worker Relationship Specialty Start Date End Date Ja Ordaz MD [address] [place] [address] PCP - General Emergency Medicine 03/11/21 documented as of this encounter
--- OUTSIDE RECORDS SUMMARY | 2024-04-05 16:23 | XMS_ITS | Encounter Summary ---
Author Organization [facility] Address [facility] [place] [address] Care Team Providers Care Biological Photographer Name Role Phone Ja Ordaz MD Primary Care Provider [phone] Reason for Referral * Diagnostic Test (Routine) - Closed Specialty Diagnoses / Procedures Referred By Contac t Referred To Contact Radiology Diagnoses Status post revision of total replacement of left knee Procedures NM Bone Scan 3 Izzy Saleh PA [facility] [place] [address] [place] [address] Referral ID Status Reason Start Date Expiration Date V isits Requested Visits Authorized [id number] Closed Specialty Service Requested 08/27/2022 02/27/2024 1 1 Reason for Visit * Diagnostic Test (Routine) - Closed Specialty Diagnoses / Procedures Referred By Contac t Referred To Contact Radiology Diagnoses Status post revision of total replacement of left knee Procedures NM Bone Scan 3 Izzy Saleh PA [facility] [place] [address] [facility] [place] [address] Referral ID Status Reason Start Date Expiration Date V isits Requested Visits Authorized [id number] Closed Specialty Service Requested 08/27/2022 02/27/2024 1 1 Encounter Details Date Type Department Care Team (Latest Contact Info) Description 10/23/2022 9:50 AM EDT - 10/23/2022 12:35 PM EDT Hospital Encounter [place] [address] Wayne Sanchez MD [facility] DR ORTHOPA[place]IC [place] [address] Status post revision of total replacement of left knee Discharge Disposition: Home Social History Tobacco Use [...] Sig Dispensed Refills Start Date End Date oxyCODONE (Roxicodone) 15 mg tablet Take 15 [...] daily. 2 gummies daily=4MG NARCAN 4 mg/actuation [place], Non-Aerosol instill 1 spray in 1 NOSTRIL if needed for opioid overdose may re... (REFER TO PRESCRIPTION NOTES). 0 12/08/2018 multivitamin with minerals Tablet Take 1 tablet by mouth daily. morphine sulfate/D5W (MORPHINE IN D5W) 1 mg/mL Prefilled Pump [place] Inject as directed. Has intrathecal pump with continuous rate and Has 5 preset prn boluses pt may give herself estradioL (ESTRACE) 0.01 % (0.1 mg/gram) Cream INSERT 1 APPLICATOFUL INTO THE VAGINA ONCE A DAY FOR 2 WEEKS THEN DECREASE OVER 2 WEEKS TO TWICE WEEKLY 06/02/2022 02/09/2023 polyethylene glycol 3350 (MIRALAX ORAL) Take by mouth. 2022 acetaminophen (Tylenol) 500 mg Tablet Take 2 tablets by mouth every 8 hours. 0 09/14/2021 03/04/2024 documented as of this encounter Plan of Treatment Upcoming Encounters Date Type Department Care Team (Latest Contact Info) Description 04/06/2024 11:30 AM EST Hospital Encounter [place]patient [place] [address] Cadence Eric MD [facility] [place] [address] 04/06/2024 11:30 AM EST - 04/06/2024 12:50 PM EST Surgery [place] [address] Cadence Eric MD [facility] [place] [address] IMPLANT NEUROSTIMULATOR ELECTRODES, PERIPHERAL NERVE (WRVU 5.76) 04/14/2024 2:30 PM EST Office Visit [place] [address] Cadence Eric MD [facility] [place] [address] Scheduled Procedures Name Priority Associated Diagnoses Date/Ti [...] Procedure Name Priority Date/Time Associated Diagnosis Comments NM BONE SCAN 3 PHASE Routine 10/23/2022 1:15 PM EDT Status post revision of total replacement of left knee documented in this encounter Results * NM Bone Scan 3 Phase (10/23/2022 1:15 PM EDT) Anatomical Region Laterality Modality Nuclear Medicine Impressions 10/23/2022 2:52 PM EDT 1. ??Left knee prosthesis with a moderate degree periprosthetic activity along the lateral margin of the femoral condylar component, with overlying mild soft tissue hyperemia. 2. ??Mild to moderate diffuse periprosthetic activity along the length of the tibial component is favored to represent postsurgical change. Preliminary report signed by: Sunil Chawla at 10/23/2022 2:30 PM I have personally reviewed the image(s) and the resident's interpretation and agree with the findings, Dk Castillo MD at 10/23/2022 2:52 PM Thank you for letting us participate in the care of this patient. ??If you are a health care provider and have any questions regarding this report, please contact the number below. ??For patients who have questions please contact the health special needs caregiver that requested your imaging first. ? Narrative 10/23/2022 2:52 PM EDT EXAMINATION: NM BONE SCAN 3 PHASE CLINICAL HISTORY: Anterior tibial syndrome s/p TKA revision, persistent delacruz pain, eval for bony stress response. Per chart review last TKA revision 09/10/21 TECHNIQUE: Immediately following the intravenous administration of 25 mCi of Tc-99m MDP, sequential images of perfusion to the lower extremities were obtained at 2 second intervals for 60 seconds in the anterior projections. Five minutes later, blood pool images were obtained of the lower extremities in the anterior, posterior, and lateral projections. Three hours later, a bone scan of the lower extremity was performed with images obtained in the anterior, posterior, and lateral projections. COMPARISON: CT lower extremity 08/27/2022 FINDINGS: Left knee prosthesis: Early blood pool phase images show diffuse mild soft tissue hyperemia overlying the femoral component. Delayed bone phase images show a moderate degree of periprosthetic activity along the lateral margin of the femoral condylar component and mild to moderate diffuse periprosthetic activity on the medial side of the condylar component diffusely along the length of the tibial component. Right knee: Right hemiarthroplasty with no significant periprosthetic activity. Procedure Note Dk Castillo MD - 10/23/2022 EXAMINATION: NM BONE SCAN 3 PHASE CLINICAL HISTORY: Anterior tibial syndrome s/p TKA revision, persistent delacruz pain, eval for bony stress response. Perchart review last TKA revision 09/10/21 TECHNIQUE: Immediately following the intravenous administration of 25 mCi of Tc-99mMDP, sequential images of perfusion to the lower extremities were obtained at2 second intervals for 60 seconds in the anterior projections. Five minutes later, blood pool images were obtained of the lowerextremities in the anterior, posterior, and lateral projections. Three hours later, a bone scan of the lower extremity was performed withimages obtained in the anterior, posterior, and lateral projections. COMPARISON: CT lower extremity 08/27/2022 FINDINGS: Left knee prosthesis: Early blood pool phase images show diffuse mild soft tissue hyperemiaoverlying the femoral component. Delayed bone phase images show a moderate degree of periprostheticactivity along the lateral margin of the femoral condylar component and mild tomoderate diffuse periprosthetic activity on the medial side of the condylarcomponent diffusely along the length of the tibial component. Right knee: Right hemiarthroplasty with no significant periprostheticactivity. IMPRESSION 1. Left knee prosthesis with a moderate degree periprosthetic activityalong the lateral margin of the femoral condylar component, with overlying mildsoft tissue hyperemia. 2. Mild to moderate diffuse periprosthetic activity along the length ofthe tibial component is favored to represent postsurgical change. Preliminary report signed by: Sunil Chawla at 10/23/2022 2:30 PM I have personally reviewed the image(s) and the resident's interpretationand agree with the findings, Dk Castillo MD at 10/23/2022 2:52 PM Thank you for letting us participate in the care of this patient. If youare a health care provider and have any questions regarding this report,please contact the number below. For patients who have questions please contactthe health special needs caregiver that requested your imaging first. 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, right documented in this encounter Administered Medications Inactive Administered Medications - up to 3 most recent administrations Medication Order MAR Action Action Date Dose Rate Site technetium (Tc-99m) methylene diphosphonate (MDP) injection 0-30 mCi 0-30 mCi, Intravenous, ONCE PRN, 1 dose, Starting on Gerda 10/23/22 at 1050, Until Gerda 10/23/22 at 1015, Per Protocol, Radiology Contrast, Routine Given 10/23/2022 10:15 AM EDT 25 mCi Right Arm documented in this encounter Care Teams Biological Photographer Relationship Specialty Start Date End Date Ja Ordaz MD [address] [place] [address] PCP - General Emergency Medicine 03/11/21 documented as of this encounter
--- OUTSIDE RECORDS SUMMARY | 2024-04-05 16:23 | XMS_ITS | Encounter Summary ---
Author Organization [facility] Address [facility] [place] [address] Care Team Providers Care Adult Family Home Program Manager Name Role Phone Ja Ordaz MD Primary Care Provider Encounter Details Date Type Department Care Team (Late st Contact Info) Description 03/18/2023 Orders Only [place] [phone] Cadence Eric MD [facility] [place] [address] Postlaminectomy syndrome of lumbar region; Presence of [...] AM EST Hospital Encounter Outpatient [place] [phone] Cadence Eric MD [facility] [place] [address] 04/06/2024 11:30 AM EST - 04/06/2024 12:50 PM EST Surgery Outpatient [place] [address] Cadence Eric MD [facility] [place] [address] IMPLANT NEUROSTIMULATOR ELECTRODES, PERIPHERAL NERVE (WRVU 5.76) 04/14/2024 2:30 PM EST Office Visit [place] [address] Cadence Eric MD [facility] [place] [place] [address] Scheduled Procedures Name Priority Associated Diagnoses Date/Ti [...] right documented in this encounter Care Teams Adult Family Home Program Manager Relationship Specialty Start Date End Date Ja Ordaz MD [address] [place] [address] PCP - General Emergency Medicine 03/11/21 documented as of this encounter
--- OUTSIDE RECORDS SUMMARY | 2024-04-05 16:23 | XMS_ITS | Encounter Summary ---
Author Organization [facility] Address [facility] [place] [address] Care Team Providers Care Door Glass Installer Name Role Phone Ja Ordaz MD Primary Care Provider [phone] Encounter Details Date Type Department Care Team (Late st Contact Info) Description 10/31/2022 External Results [facility] [place] [phone] Social History Tobacco Use Types Packs/Day Years [...] AM EST Hospital Encounter [place]patient [place] [address] Cadence Eric MD [facility] [place] [address] 04/06/2024 11:30 AM EST - 04/06/2024 12:50 PM EST Surgery [place] [phone] Cadence Eric MD [facility] [address] IMPLANT NEUROSTIMULATOR ELECTRODES, PERIPHERAL NERVE (WRVU 5.76) 04/14/2024 2:30 PM EST Office Visit [facility] [place] [address] Cadence Eric MD [facility] [place] [address] Scheduled Procedures Name Priority Associated Diagnoses Date/Ti [...] Associated Diagnosis Comments INTRATHECAL PUMP REFILL Routine 10/25/19 10:12 AM EDT documented in this encounter Results * INTRATHECAL PUMP REFILL (10/24/2022 10:12 AM EDT) Historical Provider PROCEDURE/MINOR S URGICAL ORDERABLES documented in this encounter Visit Diagnoses Not on filedocumented in this encounter Care Teams Door Glass Installer Relationship Specialty Start Date End Date Ja Ordaz MD [address] [place] [address] PCP - General Emergency Medicine 03/11/21 documented as of this encounter
--- OUTSIDE RECORDS SUMMARY | 2024-04-05 16:23 | XMS_ITS | Encounter Summary ---
Author Organization [facility] [place] [address] Care Team Providers Care Manager Med Surg Name Role Phone Ja Ordaz MD Primary Care Provider [phone] Reason for Visit * Reason Onset Date Comments Prior Authorization 2022 Encounter Details Date Type Department Care Team ([facility] Contact Info) Description 2022 Telephone [place] [phone] Rita Cui Prior Authorization Social History Tobacco [...] * Telephone Encounter - Rita Cui - 11/26/2022 11:07 AM EDT PA Outcome: PA Appeal Appeal letter routed [id number] * Telephone Encounter - Rita Cui - 2022 7:54 AM EDT Medication Prior Authorization [place] Medication name/dose/directions: Mounjaro 2.5MG/0.5mL - inject 0.5mL once weekly Rationale for request: Obesity (E66.9) Health plan: [employer] ([facility]) Díaz: [id number] Authorizing administrative representative name: Malissa Sent to health plan on: 11/24/22 JENNY Outcome: JENNY Denial Quantity approved: We denied the request as not medically necessary because the information provided to us indicates that your request for MOUNJARO INJ 2.5/0.5 does not meet the applicable medical necessity pharmacy criteria as outlined in Your Pharmacy Benefit Management Premium Formulary policy titled, GLP-1 Agonists. No documentation is provided of the following: (1) You have a disease of high blood sugar (type 2 diabetes) as confirmed by one of the following: (A) For ongoing treatment for your disease of high blood sugar levels (type 2 diabetes), your doctor must provide medical records (for example: chart notes) showing that you have the disease. (B) Your doctor provides medical records (for example: chart notes) showing that you have a disease of high blood sugar levels (type 2 diabetes) as seen by one of the following laboratory values: (I) Your blood sugar level (hemoglobin A1c) is greater than or equal to 6.5%. (II) Your blood sugar level before eating/drinking (fasting plasma glucose) is greater than or equal to 126mg/dL. (III) Your blood sugar level after drinking (2-hour plasma glucose during oral glucose tolerance test) is greater than or equal to 200mg/dL. (2) You have tried (a minimum 90-day supply at the maximally tolerated dose) or cannot use one metformin-containing drug. The information provided does not show that you meet the criteria listed above. Authorization number: [id number] Start date: End date: documented in this encounter Plan of Treatment Upcoming Encounters Date Type Department Care Team (Latest Contact Info) Description 04/06/2024 11:30 AM EST Hospital Encounter Outpatient [place] [address] Cadence Eric MD [facility] [place] [address] 04/06/2024 11:30 AM EST - 04/06/2024 12:50 PM EST Surgery Outpatient [place] [address] Cadence Eric MD [facility] [place] [address] IMPLANT NEUROSTIMULATOR ELECTRODES, PERIPHERAL NERVE (WRVU 5.76) 04/14/2024 2:30 PM EST Office Visit [place] [phone] Cadence Eric MD [facility] [place] [address] Scheduled Procedures Name Priority Associated Diagnoses Date/Ti [...] filedocumented in this encounter Care Teams Manager Med Surg Relationship Specialty Start Date End Date Ja Ordaz MD [address] [place] [address] PCP - General Emergency Medicine 03/11/21 documented as of this encounter
--- OUTSIDE RECORDS SUMMARY | 2024-04-05 16:23 | XMS_ITS | Encounter Summary ---
Author Organization Formerly [facility], Later [facility] [place] [address] Care Team Providers Care Shell Trim Operator Name Role Phone Ja Ordaz MD Primary Care Provider [phone] Reason for Visit * Reason Onset Date Comments Prior Authorization 03/25/2023 Encounter Details Date Type Department Care Team ([facility] Contact Info) Description 03/25/2023 Telephone [place] [address] Rita Cui Prior Authorization Social History Tobacco [...] * Telephone Encounter - Rita Cui - 03/31/2023 9:52 AM EST Images from the original note were not included. PA Outcome: PA Denial [place] [address] DENIED: Keiko Case/Reference #: [id number] Additional Information from Insurance: * Telephone Encounter - Rita Cui - 03/25/2023 7:14 AM EST Medication Prior Authorization Shahram Medication name/dose/directions: Mounjaro 2.5MG/0.5mL - inject 0.5mL once weekly Rationale for request: Obesity (E66.9) Health plan: [employer] ([facility]) Díaz: [id number] Authorizing physician relations representative name: Malissa Sent to health plan on: 03/25/23 documented in this encounter Plan of Treatment Upcoming Encounters Date Type Department Care Team (Latest Contact Info) Description 04/06/2024 11:30 AM EST Hospital Encounter [place] [address] Cadence Eric MD [facility] [place] [address] 04/06/2024 11:30 AM EST - 04/06/2024 12:50 PM EST Surgery [place] [address] Cadence Eric MD [facility] [place] [address] IMPLANT NEUROSTIMULATOR ELECTRODES, PERIPHERAL NERVE (WRVU 5.76) 04/14/2024 2:30 PM EST Office Visit [place] [address] Cadence Eric MD [facility] [place] [address] Scheduled Procedures Name Priority Associated Diagnoses Date/Ti [...] on filedocumented in this encounter Care Teams Shell Trim Operator Relationship Specialty Start Date End Date Ja Ordaz MD [address] [place] [address] PCP - General Emergency Medicine 03/11/21 documented as of this encounter
--- OUTSIDE RECORDS SUMMARY | 2024-04-05 16:23 | XMS_ITS | Encounter Summary ---
Author Organization Formerly [facility], [facility] Address [facility] [place] [address] Care Team Providers Care Research Animal Facility Supervisor Name Role Phone Ja Ordaz MD Primary Care Provider [phone] Reason for Visit * Consultation (Routine) - Closed Specialty Diagnoses / Procedures Referred By Cindy wooten Referred To Contact Endocrinology Diagnoses Left leg pain Wayne Sanchez MD [facility] [place] [address] Dawson Omalley MD [facility] [place] [address] Referral ID Status Reason Start Date Expiration Date V isits Requested Visits Authorized [id number] Closed Consult, Test & Treat 10/29/2022 10/29/2023 1 1 Encounter Details Date Type Department Care Team (Late st Contact Info) Description 11/19/2022 4:00 PM EDT Office [place] [address] Dawson Omalley MD [facility] [place] [address] Osteoporosis, unspecified osteoporosis type, unspecified pathological fracture presence; Obesity, unspecified classification, unspecified obesity type, unspecified whether serious comorbidity present Social History Tobacco Use Types Packs/Day Years [...] Sign Reading Time Taken Comments Blood Pressure 126/63 11/19/2022 4:04 PM EDT Pulse 74 11/19/2022 4:04 PM EDT Temperature 36.6 ??C (97.8 ??F) 11/19/2022 4:04 PM ED T Respiratory Rate - - Oxygen Saturation 96% 11/19/2022 4:04 PM EDT Inhaled Oxygen Concentration - - Weight 110.2 kg (243 lb) 11/19/2022 4:04 PM EDT Height 152.4 cm (5') 11/19/2022 4:04 PM EDT Body Mass Index 47.46 11/19/2022 4:04 PM EDT documented in this encounter Progress Notes * Dawson Omalley MD - 11/19/2022 4:00 PM EDT Images from the original note were not included. 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 After knee replacement a year ago, she still can ot walk due to severe pain in bone where prothesis ends, if leg is off ground no pain at all. During last year she has gain a lot of weight as I can not move. PCP has prescribed ozempic butit was denied. Other risk factors for fracture/osteoporosis are: [] [...] [] 101-200 mg [x] 201-300 mg MVI [] 301-400 mg [x] 401-500 mg food [] 501-600 mg [] 601-700 mg [x] 701-900 mg 3 gummies a bit unclear how much actually is there [] 901-1100 mg [] 8068-4671 mg [] 6443-1668 mg [] Above 1500 mg Medications: Current Outpatient Medications on File Prior to Visit Medication Sig Dispense Refill calcium carbonate/vitamin D3 (VITAMIN D-3 ORAL) Take by mouth daily. oxyCODONE (Roxicodone) 15 mg tablet Take 15 mg by mouth 3 times daily as needed for Pain. polyethylene glycol 3350 (MIRALAX ORAL) Take by mouth. acetaminophen (Tylenol) 500 mg Tablet Take 2 [...] daily. 2 gummies daily=4MG NARCAN 4 mg/actuation [place], Non-Aerosol instill 1 spray in 1 NOSTRIL if needed for opioid overdosemay re... (REFER TO PRESCRIPTION NOTES). 0 multivitamin with minerals Tablet Take 1 tablet by mouth daily. morphine sulfate/D5W (MORPHINE IN D5W) 1 mg/mL Prefilled Pump Rodeo Inject as directed. Has intrathecal pump with continuous rate and Has 5 preset prn boluses pt may give herself estradioL (ESTRACE) 0.01 % (0.1 mg/gram) Cream INSERT 1 APPLICATOFUL INTO THE VAGINA ONCE A DAY FOR2 WEEKS THEN DECREASE OVER 2 WEEKS TO TWICE WEEKLY EPINEPHrine 0.3 mg/0.3 mL Auto-Injector epinephrine HCl/PF (EPINEPHrine, pf,) 1 mg/mL (1:1,000) Solution Inject as directed. No current facility-administered medications on file prior to visit. [] Yes [x] No Glucocorticoid dose. When first prescribed? [] Yes [x] No Cyclosporine dose. When first prescribed? [] Yes [x] No Phenobarbital and phenytoin. When first prescribed? [] Yes [x] No Rosiglitazone, pioglitazone. When first prescribed? [] Yes [x] No PPI. When first prescribed? [x] Yes [] No SSRI. When first prescribed? [] Yes [x] No Thiaizdes, loop diuretics. When first prescribed? [] Yes [x] No Estrogens, testosterone. When first prescribed? [] Yes [x] No Calcitonin. When first prescribed? [] Yes [x] No Aromatase inhibitors (breast CA). When first prescribed? [] Yes [x] No Androgen deprivation therapy (prostate CA). When first prescribed? [] Yes [x] No Alendronate, risedronate, ibandronate. When first prescribed? PMH: Patient Active Problem List Diagnosis Code [...] file Tobacco Use Smoking status: Former Packs/day: 0.25 Types: Cigarettes Quit date: 09/23/1991 Years since quittin.1 Smokeless tobacco: Never Vaping Use Vaping Use: Never used Substance and Sexual Activity Alcohol use: No Drug use: No Sexual activity: Not on file Other Topics Concern Not on file Social History Narrative Not on file Social Determinants of Health Financial Resource Strain: Not on file Food Insecurity: Not on file Transportation Needs: Not on file Physical Activity: Not on file Housing Stability: Not on file Physical Examination: BP 126/63 Pulse 74 Temp 36.6 ??C (97.8 ??F) Ht 152.4 cm (5') Wt 110.2 kg (243 lb) SpO2 96% BMI 47.46 kg/m?? Spine: without kyphosis, without pain on palpation. Patient not able to stand up as is in pain in her leg Skin: obese, no rowley face, acne, Appearance: well hydrated, well nourished, oriented x 3, in nad. Labs 11/2022 Ca 9.3, Phos 3.4, A1C 5.8, AP 65, 25-D 38, PTH 40 08/2022 CBC in good range 09/2021 Chem 7 in good range Assessment and Plan Glucose intolerance/obesity//possible osteoporosis: I do think gainiong weight made prothesis situation worse as put more pressure on it. Will start Munjaro to loose it as A1C is elevated. A. As patient's Ca intake is 500mg from food, MVI and and 3 Ca gummies ~750mg, PTH at good level, will await 24h urine ca to see if intake is adequate. B. Patient also does have Vitamin D at goal, 30 ng/ml and above. C. Will order BMD by DXA now with TBS now D. As 25 Vit D, PTH is at normal range metaanalysis show benefit of all osteoporosis medications for loose prothesis but particularly anabolic agents like teriparatide 20 mcg SC daily. E. I will schedule patient for outpatient visit at 8 weeks. Thank you for allowing me to participate in the care of this very pleasant patient. I spend 60min in chart review, DXA, labs, discussing her weight, periprosthetic loosening of bone, writing my note. Sincerely, Dawson Omalley MD Professor of Endocrinology documented in this encounter Plan of Treatment Upcoming Encounters Date Type Department Care Team (Latest Contact Info) Description 04/06/2024 11:30 AM EST Hospital Encounter Outpatient [place] [address] Cadence Eric MD [facility] [place] [address] 04/06/2024 11:30 AM EST - 04/06/2024 12:50 PM EST Surgery Outpatient [place] [address] Cadence Eric MD [facility] [place] [address] IMPLANT NEUROSTIMULATOR ELECTRODES, PERIPHERAL NERVE (WRVU 5.76) 04/14/2024 2:30 PM EST Office Visit Pain and Spine Center at [facility] [place] [address] Cadence Eric MD [facility] PA[place] [address] Scheduled Procedures Name Priority Associated Diagnoses Date/Ti [...] Procedure Name Priority Date/Time Associated Diagnosis Comments PTH Routine 11/19/2022 5:36 PM EDT Osteoporosis, unspecified osteoporosis type, unspecified pathological fracture presence Obesity, unspecified classification, unspecified obesity type, unspecified whether serious comorbidity present COLLAGEN TYPE I C-TELOPEPTIDE Routine 11/19/2022 5:36 PM EDT Osteoporosis, unspecified osteoporosis type, unspecified pathological fracture presence Obesity, unspecified classification, unspecified obesity type, unspecified whether serious comorbidity present VITAMIN D, 25-HYDROXY Routine 11/19/2022 5:36 PM EDT Osteoporosis, unspecified osteoporosis type, unspecified pathological fracture presence Obesity, unspecified classification, unspecified obesity type, unspecified whether serious comorbidity present PHOSPHORUS Routine 11/19/2022 5:36 PM EDT Osteoporosis, unspecified osteoporosis type, unspecified pathological fracture presence Obesity, unspecified classification, unspecified obesity type, unspecified whether serious comorbidity present ALKALINE PHOSPHATASE Routine 11/19/2022 5:36 PM EDT Osteoporosis, unspecified osteoporosis type, unspecified pathological fracture presence Obesity, unspecified classification, unspecified obesity type, unspecified whether serious comorbidity present HEMOGLOBIN A1C Routine 11/19/2022 5:36 PM EDT Osteoporosis, unspecified osteoporosis type, unspecified pathological fracture presence Obesity, unspecified classification, unspecified obesity type, unspecified whether serious comorbidity present CALCIUM Routine 11/19/2022 5:36 PM EDT Osteoporosis, unspecified osteoporosis type, unspecified pathological fracture presence Obesity, unspecified classification, unspecified obesity type, unspecified whether serious comorbidity present documented in this encounter Results * DXA Central Spine, Hip, and/or Whole Body (Generic) (04/10/2023 11:55 AM EST) Anatomical Region Laterality Modality C-spine, Hip N/A Other Impressions 04/10/2023 1:45 PM EST Measurements meet WHO criteria for normal bone mineral density. 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 Estimating Fracture Risk: ? The relationship between bone mineral density (BMD) and risk of fracture is well established. As BMD decreases, risk increases. Quantifying risk is difficult and is usually limited to estimation of the relative risk - a term which may have limited value when trying to discuss an individual's risk. Estimating the absolute risk for a patient requires an understanding of the incidence rate in a given population and consideration of multiple, partially independent, risk factors in addition to BMD. ? The World Health Organization (WHO) has developed a fracture risk prediction tool that calculates a ten-year risk of major osteoporotic fracture based on femoral neck bone density measurements and nine clinical risk factors for individuals who have not been treated for osteoporosis. This is available through an interactive web-based interface (http://www.shef.ac.uk/FRAX/) and can be used to estimate a given patient's absolute risk of major osteoporotic fracture or hip fracture over the next 10 years. These estimates may prove useful when discussing risk with a patient. It is important, however, to understand the tool's limitations and how a given individual's risk might differ from the tool's estimate. The tool does not take into account the dose-response associated with most risk factors. For example, the significant increase in risk associated with multiple prior fractures compared to a single prior fracture is not taken into account. Similarly, the location of a previous fracture, the amount of glucocorticoids and number of cigarettes smoked are not considered. These limitations are discussed in a Frequently Asked Questions section of the FRAX website which you are encouraged to review. ? DEXA data sheets with BMD measurements and plots are available in [employer] under the imaging tab. Paper copies will be sent to providers without [employer] access. If you have received this report without the data sheet and do not have access to [employer], please contact Radiology [facility] at [phone] Thursday thru Thursday 8am-4pm. Thank you for letting us participate in the care of this patient. ??If you are a health care provider and have any questions regarding this report, please contact the number below. ??For patients who have questions please contact the health animal care taker that requested your imaging first. ? Narrative 04/10/2023 1:45 PM EST EXAMINATION: DXA CENTRAL SPINE, HIP, AND/OR WHOLE BODY (GENERIC) CLINICAL HISTORY: 62 years Female s/p fracture, please assess bmd including forearm and TBS. ?? (as entered by ordering provider) TECHNIQUE: Scans were acquired at the left forearm, lumbar spine and ??left hip using the Hologic Horizon A system. Trabecular bone score was also performed. COMPARISON: none FINDINGS: Femoral neck BMD: 0.777 ? g/cm2 Lowest T-score at a diagnostic region of interest: T-score: -0.9, JULIANE: ??lumbar spine, WHO diagnosis: ??normal bone mineral density TBS: L1-4, excluding L3: 1.190, Degraded microarchitecture Procedure Note Ana Desir MD - 04/10/2023 EXAMINATION: DXA CENTRAL SPINE, HIP, AND/OR WHOLE BODY (GENERIC) CLINICAL HISTORY: 62 years Female s/p fracture, please assess bmdincluding forearm and TBS. (as entered by ordering provider) TECHNIQUE: Scans were acquired at the left forearm, lumbar spine and lefthip using the [employer] Horizon A system. Trabecular bone score was also performed. COMPARISON: none FINDINGS: Femoral neck BMD: 0.777 g/cm2 Lowest T-score at a diagnostic region of interest: T-score: -0.9, JULIANE: lumbar spine, WHO diagnosis: normal bone mineraldensity TBS: L1-4, excluding L3: 1.190, Degraded microarchitecture IMPRESSION Measurements meet WHO criteria for normal bone mineral density. 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 Estimating Fracture Risk: ? The relationship between bone mineral density (BMD) and risk of fractureis well established. As BMD decreases, risk increases. Quantifying risk isdifficult and is usually limited to estimation of the relative risk - a term which mayhave limited value when trying to discuss an individual's risk. Estimatingthe absolute risk for a patient requires an understanding of the incidencerate in a given population and consideration of multiple, partially independent,risk factors in addition to BMD. ? The World Health Organization (WHO) has developed a fracture riskprediction tool that calculates a ten-year risk of major osteoporotic fracture basedon femoral neck bone density measurements and nine clinical risk factorsfor individuals who have not been treated for osteoporosis. This isavailable through an interactive web-based interface (http://www.shef.ac.uk/FRAX/)and can be used to estimate a given patient's absolute risk of majorosteoporotic fracture or hip fracture over the next 10 years. These estimates mayprove useful when discussing risk with a patient. It is important, however, to understand the tool's limitations and how a given individual's risk mightdiffer from the tool's estimate. The tool does not take into account thedose-response associated with most risk factors. For example, the significant increasein risk associated with multiple prior fractures compared to a single priorfracture is not taken into account. Similarly, the location of a previous fracture,the amount of glucocorticoids and number of cigarettes smoked are notconsidered. These limitations are discussed in a Frequently Asked Questions sectionof the FRAX website which you are encouraged to review. ? DEXA data sheets with BMD measurements and plots are available in [employer] the imaging tab. Paper copies will be sent to providers without [employer] access.If you have received this report without the data sheet and do not haveaccess to [employer], please contact Radiology Assistant Office Manager at [phone] Thursday thruFriday 8am-4pm. Thank you for letting us participate in the care of this patient. If youare a health care provider and have any questions regarding this report,please contact the number below. For patients who have questions please contactthe health animal care taker that requested your imaging first. Dawson Omalley MD IMG DEXA ORDERABLES * Creatinine, urine, 24 hour (11/27/2022 11:00 AM EDT) Cre Concentration, U24 48 mg/dL [facility] Creatinine, 24 Hour Urine 0.96 0.70 - 1.60 g/24hr [facility] Urine 11/27/2022 11:0 0 AM EDT 11/27/2022 1:59 PM EDT Narrative Resulting Agency Comment Spec In Lab Dawson Omalley MD URINE ORDERABLES Performing Organization Address City/[facility] Co de Phone Number [facility] [place] [address] * Calcium, urine, 24 hour (11/27/2022 11:00 AM EDT) Ca Concentration, U24 11.0 mg/dL [facility] Calcium, 24 Hour Urine 220.0 50.0 - 300.0 mg/24hr [facility] Comment:Reference Range: 50. 0-300.0 mg/24 hour based on diet. Urine 11/27/2022 11:0 0 AM EDT 11/27/2022 1:59 PM EDT Narrative Resulting Agency Comment Spec In Lab Dawson Omalley MD URINE ORDERABLES Performing Organization Address [facility] Co de Phone Number [facility] [place] [address] * Alkaline Phosphatase (11/19/2022 5:36 PM EDT) Alkaline Phosphatase 65 35 - 105 unit/L [facility] Blood 11/19/2022 5:36 PM EDT 11/19/2022 5:46 PM EDT Narrative Resulting Agency Comment Spec In Lab Dawson Omalley MD CHEMISTRY ORDERABLES Performing Organization Address City/[facility] Co de Phone Number [facility] [place] [address] * Phosphorus (11/19/2022 5:36 PM EDT) Phosphorus 3.4 2.5 - 4.5 mg/dL [facility] Blood 11/19/2022 5:36 PM EDT 11/19/2022 5:46 PM EDT Narrative Resulting Agency Comment Spec In Lab Dawson Omalley MD CHEMISTRY ORDERABLES [facility] [place] [address] * (ABNORMAL) Hemoglobin A1c (11/19/2022 5:36 PM EDT) Hemoglobin A1c 5.8(H) 4.3 - 5.6 % [facility] Comment: Reference Range: 4.3 - 5.6% [...] Mellitus, Diabetes Care 2013; 36: Suppl. 1, S67-74 Estimated Average Glucose 119 mg/dL [facility] Comment: eAG equivalents for HbA1c percentages: [...] into estimated average glucose values. ??Diabetes Care 2008:31(8):2057-7459. Blood 11/19/2022 5:36 PM EDT 11/19/2022 5:46 PM EDT Narrative Resulting Agency Comment Spec In Lab Dawson Omalley MD CHEMISTRY ORDERABLES Performing Organization Address City/[facility] Co de Phone Number [facility] [place] [address] * Collagen Type I C-Telopeptide (11/19/2022 5:36 PM EDT) CTX 356 pg/mL [facility] Comment: REFERENCE VALUE [phone] (18-29 y) 150-635 (30-39 y) 131-670 (40-49 y) [phone] (50-59 y) 171-970 (60-69 y) 152-858 (>70 y) 136-689 (Premenopausal) 177-1015 (Postmenopausal) Flagging is based on the age-specific reference interval and not menopausal status. Test Performed by: [id number] [place] [address] Haul Driver: Faizan Gomez M.D. Ph.D.; CLIA# [id number] Blood 11/19/2022 5:36 PM EDT 11/20/2022 8:50 AM EDT Narrative Resulting Agency Comment Spec In Lab Dawson Omalley MD LAB SEND OUT ORDERAB LES Performing Organization Address City/[facility] Co de Phone Number [facility] [place] [address] * Vitamin D, 25-Hydroxy (11/19/2022 5:36 PM EDT) Vitamin D Total 25 OH 38 21 - 100 ng/mL [facility] Vit D Interp Sufficient [facility] Blood 11/19/2022 5:36 PM EDT 11/19/2022 5:46 PM EDT Narrative Resulting Agency Comment Spec In Lab Dawson Omalley MD CHEMISTRY ORDERABLES [facility] [place] [address] * Calcium (11/19/2022 5:36 PM EDT) Calcium 9.3 8.5 - 10.5 mg/dL [facility] Blood 11/19/2022 5:36 PM EDT 11/19/2022 5:46 PM EDT Narrative Resulting Agency Comment Spec In Lab Dawson Omalley MD CHEMISTRY ORDERABLES Performing Organization Address City/[facility]/ZIP Co de Phone Number [facility] [address] * PTH (11/19/2022 5:36 PM EDT) Parathyroid Hormone 40 15 - 65 pg/mL [facility] Blood 11/19/2022 5:36 PM EDT 11/19/2022 5:46 PM EDT Narrative Resulting Agency Comment Spec In Lab Dawson Omalley MD CHEMISTRY ORDERABLES Performing Organization Address City/[facility] Co de Phone Number [facility] [place] [address] documented in this encounter Visit Diagnoses Diagnosis Osteoporosis, unspecified osteoporosis type, unspecified pathological fracture presence Obesity, unspecified classification, unspecified obesity type, unspecified whether serious comorbidity present Osteoporosis, unspecified osteoporosis type, unspecified pathological fracture presence Saphenous neuralgia, right documented in this encounter Care Teams Research Animal Facility Supervisor Relationship Specialty Start Date End Date Ja Ordaz MD [address] [place] [address] PCP - General Emergency Medicine 03/11/21 documented as of this encounter
--- OUTSIDE RECORDS SUMMARY | 2024-04-05 16:23 | XMS_ITS | Encounter Summary ---
Author Organization [facility] [place] [address] Care Team Providers Care Fudge Candy Maker Name Role Phone Ja Ordaz MD Primary Care Provider [phone] Encounter Details Date Type Department Care Team (Late st Contact Info) Description 03/31/2023 Telephone [place] [phone] Lizz Lares, RN Social History Tobacco Use Types Packs/Day Years [...] encounter Miscellaneous Notes * Telephone Encounter - Lizz Lares RN - 03/31/2023 12:41 PM EST Copied from CRM #[id number]. Topic: Specialty Dept CRMs - Generic Call >> Mar 30, 2023 2:42 PM Johnson Hyde wrote: Specialist: Dr. Omalley Relationship (if other than patient-full name): self Reason for Call: Patient states her insurance company is hoping to do a peer to peer with Dr. Omalley for romofozumab-aqqg. Patient is hoping the provider will reach out to her first. The insurance company states she is needing a bone density test first, though it's not scheduled until july. Patient states the medication is for the sarina in her leg and the bone marrow not growing. Please call to discuss. documented in this encounter Plan of Treatment Upcoming Encounters Date Type Department Care Team (Latest Contact Info) Description 04/06/2024 11:30 AM EST Hospital Encounter [place] [address] Cadence Eric MD [facility] [place] [address] 04/06/2024 11:30 AM EST - 04/06/2024 12:50 PM EST Surgery [place] [address] Cadence Eric MD [facility] [address] IMPLANT NEUROSTIMULATOR ELECTRODES, PERIPHERAL NERVE (WRVU 5.76) 04/14/2024 2:30 PM EST Office Visit [facility] [place] [phone] Cadence Eric MD [facility] [place] [address] Scheduled Procedures Name Priority Associated Diagnoses Date/Ti [...] on filedocumented in this encounter Care Teams Fudge Candy Maker Relationship Specialty Start Date End Date Ja Ordaz MD [address] [place] [id number] PCP - General Emergency Medicine 03/11/21 documented as of this encounter
--- OUTSIDE RECORDS SUMMARY | 2024-04-05 16:23 | XMS_ITS | Encounter Summary ---
Author Organization [facility] Address [facility] [place] [address] Care Team Providers Care Air Gun Operator Name Role Phone Ja Ordaz MD Primary Care Provider [phone] Reason for Visit * Diagnostic Test (Routine) - Closed Specialty Diagnoses / Procedures Referred By Cindy wooten Referred To Contact Radiology Diagnoses Status post revision of total replacement of left knee Procedures NM Bone Scan 3 Phase Rosa Maria, JENNY Sanchez [facility] [place] [address] [place] [address] Referral ID Status Reason Start Date Expiration Date V isits Requested Visits Authorized [id number] Closed Specialty Service Requested 08/27/2022 02/27/2024 1 1 Encounter Details Date Type Department Care Team (Latest Contact Info) Description 10/23/2022 12:36 PM EDT - 10/23/2022 11:59 PM EDT Hospital Encounter [place] [address] Wayne Sanchez MD [facility] [place] [address] Discharge Disposition: Home Social History Tobacco Use [...] daily. 2 gummies daily=4MG NARCAN 4 mg/actuation [place], Non-Aerosol instill 1 spray in 1 NOSTRIL if needed for opioid overdose may re... (REFER TO PRESCRIPTION NOTES). 0 12/08/2018 multivitamin with minerals Tablet Take 1 tablet by mouth daily. morphine sulfate/D5W (MORPHINE IN D5W) 1 mg/mL Prefilled [place] Inject as directed. Has intrathecal pump with [...] AM EST Hospital Encounter [place]patient [place] [address] Cadence Eric MD [facility] [place] [address] 04/06/2024 11:30 AM EST - 04/06/2024 12:50 PM EST Surgery [place]patient [place] [address] Cadence Eric MD [facility] [place] [address] IMPLANT NEUROSTIMULATOR ELECTRODES, PERIPHERAL NERVE (WRVU 5.76) 04/14/2024 2:30 PM EST Office Visit [place] [address] Cadence Eric MD [facility] [place] [address] Scheduled Procedures Name Priority Associated Diagnoses Date/Ti [...] postsurgical change. Preliminary report signed by: Sunil Denton at 10/23/2022 2:30 PM I have personally [...] who have questions please contact the health patient care director that requested your imaging first. ? Electronically signed by: Dk Castillo MD, [facility] ([phone]), at 10/23/2022 2:52 PM Narrative 10/23/2022 2:52 PM EDT EXAMINATION: NM [...] patients who have questions please contactthe health patient care director that requested your imaging first. Wayne Sanchez MD IMG [place] ORDERABLES documented in this encounter Visit Diagnoses Not on filedocumented in this encounter Care Teams Air Gun Operator Relationship Specialty Start Date End Date Ja Ordaz MD [address] [place] [address] PCP - General Emergency Medicine 03/11/21 documented as of this encounter
--- OUTSIDE RECORDS SUMMARY | 2024-04-05 16:23 | XMS_ITS | Encounter Summary ---
Author Organization [facility] Address [facility] [place] [address] Care Team Providers Care Client Resource Specialist Name Role Phone Ja Ordaz MD Primary Care Provider [phone] Reason for Referral * Diagnostic Test (Routine) - Closed Specialty Diagnoses / Procedures Referred By Cindy wooten Referred To Contact Radiology Diagnoses Status post revision of total replacement of left knee Procedures CT Knee wo Contrast Left (Generic) Rosa Maria, JENNY Sanchez [facility] [place] [address] [facility] [place] [address] Referral ID Status Reason Start Date Expiration Date V isits Requested Visits Authorized [id number] Closed Specialty Service Requested 04/16/2023 10/15/2024 1 1 Encounter Details Date Type Department Care Team (Late st Contact Info) Description 04/16/2023 Telephone [place] [address] Rosa Maria, JENNY Sanchez [facility] [place] [address] Social History Tobacco Use Types Packs/Day Years [...] as of this encounter Miscellaneous Notes * Addendum Note - Laura Rolon - 04/16/2023 12:16 PM ESTAddended by: LAURA ROLON on: 04/16/2023 12:16 PM Modules accepted: Orders * Telephone Encounter - Laura Rolon - 04/16/2023 12:13 PM EST I reached out and spoke to Etelvina to let her know that she does not need any new labs prior to her CTon 04/20. We do not need any contrast. Order was switched and I spoke with CT to confirm order change. Etelvina was appreciative of the call * Telephone Encounter - Nish Enciso - 04/16/2023 10:16 AM ESTSummary: Labs requrired prior to procedure. Needs labs prior to CT tomorrow- Creatinine Her arrival time for CT is at 12:40 PM. documented in this encounter Plan of Treatment Upcoming Encounters Date Type Department Care Team (Latest Contact Info) Description 04/06/2024 11:30 AM EST Hospital Encounter [place] [address] aCdence Eric MD [facility] [place] [address] 04/06/2024 11:30 AM EST - 04/06/2024 12:50 PM EST Surgery [place] [address] Cadence Eric MD [facility] [place] [address] IMPLANT NEUROSTIMULATOR ELECTRODES, PERIPHERAL NERVE (WRVU 5.76) 04/14/2024 2:30 PM EST Office Visit [facility] and Spine Center at [facility] [place] [address] Cadence Eric MD [facility] [place] [address] Scheduled Procedures Name Priority Associated Diagnoses Date/Ti me IMPLANT NEUROSTIMULATOR ELECTRODES, PERIPHERAL NERVE (WRVU 5.76) Yes Saphenous neuralgia, right 04/06/2024 11:30 AM EST IMPLANT NEUROSTIMULATOR ELECTRODES, PERIPHERAL NERVE (WRVU 5.76) Saphenous neuralgia, 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 Neuropathic pain COLONOSCOPY,SCREENING (WRVU 3.26) Health maintenance examination-screening colo documented as of this encounter Results * CT Knee wo Contrast Left (Generic) (04/23/2023 3:48 PM EST) Anatomical Region Laterality Modality Knee Left Computed Tomogra phy Impressions 04/24/2023 3:44 PM EST 1. ??2-year-old revised total knee arthroplasty. 2. ??Interval developed 3 mm radiolucency surrounding the femoral stem, concern for loosening and/or infection. 3. ??No radiolucency surrounding the tibial component. The reported tibial stress response does not correspond to any focus of periostitis or fracture. Thank you for letting us participate in the care of this patient. ??If you are a health care provider and have any questions regarding this report, please contact the number below. ??For patients who have questions please contact the health career services assistant that requested your imaging first. ? Narrative 04/24/2023 3:44 PM EST EXAMINATION: CT KNEE WO CONTRAST LEFT (GENERIC) CLINICAL HISTORY: s/p TKA revision with tibial stress response, eval for any change, per ordering provider COMPARISON: CT LEFT knee, August 27, 2022. No FINDINGS: LEFT knee A revised total knee arthroplasty with a constraint device.. TECHNIQUE 0.6 mm axial images of the LEFT knee were acquired. FINDINGS: LEFT REVISED TOTAL KNEE ARTHROPLASTY, constraint device.: OSTEOLYSIS AND LOOSENING: Femoral component-3 mm radiolucency, new Tibial component-no radiolucency. The reported stress response is not identified and does not correspond to any focus of periostitis or fracture. Patellar component-no radiolucencies FRACTURE: No periprosthetic fracture EFFUSION: Trace joint fluid SOFT TISSUES: No soft tissue air or foreign body detected. ROTATIONAL MEASUREMENTS: The component rotation was calculated using the method described by Peña and Rubash. Tibial Component Rotation: C: Line connected to geometric center of the proximal tibial plateau and the tubercle. D: Line perpendicular to the posterior aspect of the tibial tray. Tibial Component Rotation: (Angle between C and D) =33 degrees. Procedure Note Yanni Crowder MD - 04/24/2023 EXAMINATION: CT KNEE WO CONTRAST LEFT (GENERIC) CLINICAL HISTORY: s/p TKA revision with tibial stress response, eval forany change, per ordering provider COMPARISON: CT LEFT knee, August 27, 2022. No FINDINGS: LEFT knee A revised total knee arthroplasty with a constraint device.. TECHNIQUE 0.6 mm axial images of the LEFT knee were acquired. FINDINGS: LEFT REVISED TOTAL KNEE ARTHROPLASTY, constraint device.: OSTEOLYSIS AND LOOSENING: Femoral component-3 mm radiolucency, new Tibial component-no radiolucency. The reported stress response is notidentified and does not correspond to any focus of periostitis or fracture. Patellar component-no radiolucencies FRACTURE: No periprosthetic fracture EFFUSION: Trace joint fluid SOFT TISSUES: No soft tissue air or foreign body detected. ROTATIONAL MEASUREMENTS: The component rotation was calculated using themethod described by Mariana and Julio. Tibial Component Rotation: C: Line connected to geometric center of the proximal tibial plateau andthe tubercle. D: Line perpendicular to the posterior aspect of the tibial tray. Tibial Component Rotation: (Angle between C and D) =33 degrees. IMPRESSION 1. 2-year-old revised total knee arthroplasty. 2. Interval developed 3 mm radiolucency surrounding the femoral stem,concern for loosening and/or infection. 3. No radiolucency surrounding the tibial component. The reported tibialstress response does not correspond to any focus of periostitis or fracture. Thank you for letting us participate in the care of this patient. If youare a health care provider and have any questions regarding this report,please contact the number below. For patients who have questions please contactthe health career services assistant that requested your imaging first. 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
--- OUTSIDE RECORDS SUMMARY | 2024-04-05 16:23 | XMS_ITS | Encounter Summary ---
Author Organization [facility] Address [facility] [place] [address] Care Team Providers Care Navigation Officer Name Role Phone Ja Ordaz MD Primary Care Provider [phone] Encounter Details Date Type Department Care Team (Late st Contact Info) Description 02/13/2023 External Results [place] [address] Social History Tobacco Use Types Packs/Day Years [...] AM EST Hospital Encounter Outpatient [place] [address] Cadence Eric MD [facility] [place] [address] 04/06/2024 11:30 AM EST - 04/06/2024 12:50 PM EST Surgery Outpatient [place] [address] Cadence Eric MD [facility] [place] [address] IMPLANT NEUROSTIMULATOR ELECTRODES, PERIPHERAL NERVE (WRVU 5.76) 04/14/2024 2:30 PM EST Office Visit Pain and Spine Center at [facility] [place] [address] Cadence Eric MD [facility] [place] [address] Scheduled Procedures Name Priority Associated Diagnoses Date/Ti [...] Associated Diagnosis Comments INTRATHECAL PUMP REFILL Routine 02/09/2023 7:59 AM EDT documented in this encounter Results * INTRATHECAL PUMP REFILL (02/09/2023 7:59 AM EDT) Historical Provider PROCEDURE/MINOR S URGICAL ORDERABLES documented in this encounter Visit Diagnoses Not on filedocumented in this encounter Care Teams Navigation Officer Relationship Specialty Start Date End Date Ja Ordaz MD [address] [place] [address] PCP - General Emergency Medicine 03/11/21 documented as of this encounter
--- OUTSIDE RECORDS SUMMARY | 2024-04-05 16:23 | XMS_ITS | Encounter Summary ---
Author Organization [facility] [place] [address] Care Team Providers Care Filler Machine Operator Name Role Phone Ja Ordaz MD Primary Care Provider [phone] Reason for Visit * Auth/Cert (Routine) Specialty Diagnoses / Procedures Referred By Cindy t Referred To Contact Diagnoses post laminectomy syndrome Procedures PRO ELECTRONIC PUMP ANALYSIS W REPROGRAMMING AND REFILL BY /DRAMA PROFESSOR ELECTRONIC HERNANDEZ PROG., PUMP- DRUG INFUS; W/ REPROGRAM & REFILL REQ (WRVU 0.9) Cadence Eric MD [facility] [place] [address] [facility] Referral ID Status Reason Start Date Expiration Date Visits Re quested Visits Authorized [id number] 1 1 Encounter Details Date Type Department Care Team (Late st Contact Info) Description 10/24/2022 11:00 AM EDT Ancillary [place] [address] Cadence Eric MD [facility] [place] [address] Social History Tobacco Use Types Packs/Day Years [...] AM EST Hospital Encounter Outpatient [place] [address] Cadence Eric MD [facility] [place] [address] 04/06/2024 11:30 AM EST - 04/06/2024 12:50 PM EST Surgery Outpatient [place] [address] Cadence Eric MD [facility] [place] [address] IMPLANT NEUROSTIMULATOR ELECTRODES, PERIPHERAL NERVE (WRVU 5.76) 04/14/2024 2:30 PM EST Office Visit [facility] [place] [address] Cadence Eric MD [facility] [place] [address] Scheduled Procedures Name Priority Associated Diagnoses Date/Ti [...] STORAGE ONLY PAIN CLINIC C ARM Routine 10/24/2022 1:07 PM EDT documented in this encounter Results * Film Library- Storage Only pain Clinic C-Arm (10/24/2022 1:07 PM EDT) Narrative [facility] - 10/24/2022 1:07 PM EDT See PACS for result report. Cadence Eric MD IMG FILM LIBRARY ORDERABLES [place], [place] documented in this encounter Visit Diagnoses Not on filedocumented in this encounter Care Teams Filler Machine Operator Relationship Specialty Start Date End Date Ja Ordaz MD [address] [place] [address] PCP - General Emergency Medicine 03/11/21 documented as of this encounter
--- OUTSIDE RECORDS SUMMARY | 2024-04-05 16:23 | XMS_ITS | Encounter Summary ---
Author Organization [facility] [place] [address] Care Team Providers Care Manager Regional Name Role Phone Ja Ordaz MD Primary Care Provider [phone] Encounter Details Date Type Department Care Team (Late st Contact Info) Description 11/06/2022 Telephone [place] [address] Leanna Dent Social History Tobacco Use Types [...] * Telephone Encounter - Leanna Dent - 11/06/2022 3:07 PM EDT LVM to explain we were canceling her 12/[address] Ramirez that was made in error. I will reschedule this appointment along with her next Pump refill w/ Dr. Eric. If patient calls back, she can be transferred to Leanna documented in this encounter Plan of Treatment Upcoming Encounters Date Type Department Care Team (Latest Contact Info) Description 04/06/2024 11:30 AM [facility] Hospital Encounter [place]patient [place] [address] Cadence Eric MD [facility] [place] [address] 04/06/2024 11:30 AM EST - 04/06/2024 12:50 PM EST Surgery [place]patient [place] [address] Cadence Eric MD [facility] [place] [address] IMPLANT NEUROSTIMULATOR ELECTRODES, PERIPHERAL NERVE (WRVU 5.76) 04/14/2024 2:30 PM EST Office Visit [place] [address] Cadence Eric MD [facility] [place] [address] Scheduled Procedures Name Priority Associated Diagnoses Date/Ti [...] filedocumented in this encounter Care Teams Manager Regional Relationship Specialty Start Date End Date Ja Ordaz MD [address] [place] [address] PCP - General Emergency Medicine 03/11/21 documented as of this encounter
--- OUTSIDE RECORDS SUMMARY | 2024-04-05 16:23 | XMS_ITS | Encounter Summary ---
Author Organization [facility] Address [facility] [place] [address] Care Team Providers Care Greensman Name Role Phone Ja Ordaz MD Primary Care Provider [phone] Encounter Details Date Type Department Care Team (Latest Contact Info) Description 01/20/2023 Travel Social History Tobacco Use Types Packs/Day [...] AM EST Hospital Encounter [place]patient [place] [address] Cadence Eric MD [facility] [place] [address] 04/06/2024 11:30 AM EST - 04/06/2024 12:50 PM EST Surgery [place] [address] Cadence Eric MD [facility] [place] [address] IMPLANT NEUROSTIMULATOR ELECTRODES, PERIPHERAL NERVE (WRVU 5.76) 04/14/2024 2:30 PM EST Office Visit [facility] [place] [address] Cadence Eric MD [facility] [place] [address] Scheduled Procedures Name Priority Associated Diagnoses Date/Ti [...] on filedocumented in this encounter Care Teams Greensman Relationship Specialty Start Date End Date Ja Ordaz MD [address] [place] [address] PCP - General Emergency Medicine 03/11/21 documented as of this encounter
--- OUTSIDE RECORDS SUMMARY | 2024-04-05 16:23 | XMS_ITS | Encounter Summary ---
Author Organization [facility] [place] [address] Care Team Providers Care Shell Plater Name Role Phone Ja Ordaz MD Primary Care Provider [phone] Reason for Visit * Reason Onset Date Comments Questions 10/31/2022 Encounter Details Date Type Department Care Team (Late Contact Info) Description 10/31/2022 Telephone [place] [address] Clinic, Dr Sanchez Team None Questions Social History Tobacco Use Types Packs/Day [...] encounter Miscellaneous Notes * Telephone Encounter - Iris Le - 10/31/2022 1:17 PM EDT Etelvina stopped by clinic. Discussed we can order the tall walker boot (W 7) because it will be more supportive. Reviewed with Meg Boss PA-C. Order has been placed and she went [facility] to [facility] to get [facility]. Etelvina verbalized understanding. No further questions or concerns at this time. * Telephone Encounter - Elvi Armando - 10/31/2022 11:42 AM EDT Name of person calling: Etelvina Facility person is calling from?: NA Was this a new injury? NO Have you had Surgery?NO If so when? Who was the Surgeon What is the question: Etelvina is requesting a Aircast boot for her left leg instead of a brace. She states she has already spoken with [facility] and they have this boot in stock and will need an order from Dr. Sanchez in order for her to obtain it, please advise Best number to reach the caller: [phone] documented in this encounter Plan of Treatment Upcoming Encounters Date Type Department Care Team (Latest Contact Info) Description 04/06/2024 11:30 AM EST Hospital Encounter [place] [address] Cadence Eric MD [facility] [place] [address] 04/06/2024 11:30 AM EST - 04/06/2024 12:50 PM EST Surgery [place] [address] Cadence Eric MD [facility] [place] [address] IMPLANT NEUROSTIMULATOR ELECTRODES, PERIPHERAL NERVE (WRVU 5.76) 04/14/2024 2:30 PM EST Office Visit [place] [address] Cadence Eric MD [facility] PA[place] [address] Scheduled Procedures Name Priority Associated Diagnoses Date/Ti me IMPLANT NEUROSTIMULATOR ELECTRODES, PERIPHERAL NERVE (WRVU 5.76) Yes Saphenous neuralgia, right 04/06/2024 11:30 AM EST IMPLANT NEUROSTIMULATOR ELECTRODES, PERIPHERAL NERVE (WRVU 5.76) Saphenous neuralgia, 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 Sanchez) Left leg pain Pain in limb Saphenous neuralgia, right documented in this encounter Care Teams Shell Plater Relationship Specialty Start Date End Date Ja Ordaz MD [address] [place] [address] PCP - General Emergency Medicine 03/11/21 documented as of this encounter
--- OUTSIDE RECORDS SUMMARY | 2024-04-05 16:23 | XMS_ITS | Encounter Summary ---
Author Organization [facility] Address [facility] [place] [address] Care Team Providers Care Mainspring Barrel Assembly Cleaner Name Role Phone Ja Ordaz MD Primary Care Provider [phone] Encounter Details Date Type Department Care Team (Latest Contact Info) Description 04/09/2023 Travel Social History Tobacco Use Types Packs/Day [...] AM EST Hospital Encounter Outpatient [place] [address] Cadence Eric MD [facility] [address] 04/06/2024 11:30 AM EST - 04/06/2024 12:50 PM EST Surgery Outpatient [place] [phone] Cadence Eric MD [facility] [place] [address] IMPLANT NEUROSTIMULATOR ELECTRODES, PERIPHERAL NERVE (WRVU 5.76) 04/14/2024 2:30 PM EST Office Visit [facility] [place] [address] Cadence Eric MD [facility] [address] Scheduled Procedures Name Priority Associated Diagnoses Date/Ti [...] on filedocumented in this encounter Care Teams Mainspring Barrel Assembly Cleaner Relationship Specialty Start Date End Date Ja Ordaz MD [address] [place] [id number] PCP - General Emergency Medicine 03/11/21 documented as of this encounter
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
--- OUTSIDE RECORDS SUMMARY | 2024-04-05 16:23 | XMS_ITS | Encounter Summary ---
Author Organization [facility] Address [facility] [place] [address] Care Team Providers Care Balance Clerk Name Role Phone Ja Ordaz MD Primary Care Provider [phone] Encounter Details Date Type Department Care Team (Late st Contact Info) Description 12/01/2022 Orders [place] [phone] Dawson Omalley MD [facility] [place] [address] Social History Tobacco Use Types Packs/Day Years [...] AM EST Hospital Encounter [place] [phone] Cadence Eric MD [facility] [place] [address] 04/06/2024 11:30 AM EST - 04/06/2024 12:50 PM EST Surgery [place] [address] Cadence Eric MD [facility] [place] [address] IMPLANT NEUROSTIMULATOR ELECTRODES, PERIPHERAL NERVE (WRVU 5.76) 04/14/2024 2:30 PM EST Office Visit [facility] [place] [address] Cadence Eric MD [facility] [place] [address] Scheduled Procedures Name Priority Associated Diagnoses Date/Ti [...] on filedocumented in this encounter Care Teams Balance Clerk Relationship Specialty Start Date End Date Ja Ordaz MD [address] [place] [address] PCP - General Emergency Medicine 03/11/21 documented as of this encounter
--- OUTSIDE RECORDS SUMMARY | 2024-04-05 16:23 | XMS_ITS | Encounter Summary ---
Author Organization [facility] Address [facility] [place] [address] Care Team Providers Care Environmental Services Tech Name Role Phone Ja Ordaz MD Primary Care Provider [phone] Encounter Details Date Type Department Care Team (Late st Contact Info) Description 02/09/2023 1:00 PM EDT Office Visit [facility] [place] [address] Cadence Eric MD [facility] [place] [address] Postlaminectomy syndrome of lumbar region; Chronic prescription opiate use; Presence of intrathecal pump Social History Tobacco [...] Sign Reading Time Taken Comments Blood Pressure 140/85 02/09/2023 1:03 PM EDT Pulse 70 02/09/2023 1:03 PM EDT Temperature - - Respiratory Rate - - Oxygen Saturation 100% 02/09/2023 1:03 PM EDT Inhaled Oxygen Concentration - - Weight - - Height - - Body Mass Index - - documented in this encounter Progress Notes * Mattie Marcus MD - 02/09/2023 1:00 PM EDT [facility] PREPROCEDURE HISTORY AND PHYSICAL HPI: Etelvina Cuadra is a 62 y.o. female who presents today for: Procedure: Intrathecal pain pump refill Today patient reports: Tail bone pain avg 4/10 but came become 8/10 in severity. Interferes with sleep. She is also with Left knee pain. She denies sides effects from medications. The history is obtained from the patient, [...] the electronic medical record. Physical Examination: BP 140/85 Pulse 70 SpO2 100% Pain Rating: No pertinent changes are noted from previous assessment. Pulmonary/Chest: Effort normal. Skin: Skin is warm and dry. No rash noted. Not diaphoretic. Radiologic Data: Relevant imaging was reviewed today. Labs: No labs required Assessment and Plan: 1. Postlaminectomy syndrome of lumbar region 2. Chronic prescription opiate use 3. Presence of intrathecal pump Procedure: Intrathecal pain pump refill; please see Dr. Eric's note for further details. Addressed all questions and concerns. Nursing intake/checklist reviewed. Medications holds confirmed. Risks and benefits discussed with patient. No contraindications to the procedure at this time, will proceed. Mattie Marcus MD [facility] [place] [address] / * Cadence Eric MD - 02/09/2023 1:00 PM EDT I have seen and examined the patient and reviewed the fellow's above history and I agree with the details as written. Patient with overall acceptable pain control except coccydynia. At last visit tried to increase bolus from 5 times per day to 6. Due to sleep she never uses the 6th bolus. Discusseddecreasing bolus number but increasing bolus amount. She was agreeable to this. Scheduled in clinicfor fill due to challenging access all ITP refills need to be done under XRAY Pain Management Operative Note Patient Name: Etelvina Cuadra : [id number] MR#: [id number] Case Date: 10/24/2022 Surgeon: Surgeon(s) and Role: * Cadence Eric MD - Primary Present on Admission: Postlaminectomy syndrome of lumbar region Presence of intrathecal pump Postoperative diagnosis: Postlaminectomy syndrome of lumbar region Presence of intrathecal pump Procedure(s) (LRB): ELECTRONIC HERNANDEZ PROG., PUMP- DRUG INFUS; W/ REPROGRAM & REFILL REQ (WRVU 0.9) (N/A) INTRATHECAL PUMP REFILL PROCEDURE NOTE WITH REPROGRAMMING Primary Clearance Diver: Cadence Eric MD Leather Finisher: Ronald Bang MD Reason for Reprogramming: to refill pump [...] mL Computer predicted residual volume in pump: 9.5 ml Measured residual volume in pump: 10 ml Medication or Dose Changes: yes Is dose change >30%? no Is concentration of drug different? no Estimated Replacement 12/03 Empty syringe concentration verified by work checker: yes If concentration of drug is different, has a bridge bolus been programmed? n/a. Has any program been used other than simple continuous or bridge bolus and simple continuous? no Infusion Mode: simple continuous. New Alarm Date: 06/01/23 PROCEDURE: Risks and expected side effects were [...] instilled into the pump according to the supply chain associate's directions without difficulty. Therewas no evidence of [...] assistance Cadence Eric MD [facility] Speech Scientist of Anesthesiology [facility] [employer] [address] [address] / [facility] documented in this encounter Plan of Treatment Upcoming Encounters Date Type Department Care Team (Latest Contact Info) Description 04/06/2024 11:30 AM EST Hospital Encounter Outpatient [place] [address] Cadence Eric MD [facility] [place] [address] 04/06/2024 11:30 AM EST - 04/06/2024 12:50 PM EST Surgery Outpatient [place] [address] Cadence Eric MD [facility] [place] [address] IMPLANT NEUROSTIMULATOR ELECTRODES, PERIPHERAL NERVE (WRVU 5.76) 04/14/2024 2:30 PM EST Office Visit [facility] [place] [address] Cadence Eric MD [facility] [place] [address] Scheduled Procedures Name Priority Associated Diagnoses Date/Ti [...] of lumbar region Postlaminectomy syndrome, lumbar region Chronic prescription opiate use Presence of intrathecal pump Saphenous neuralgia, right documented in this encounter Care Teams Environmental Services Tech Relationship Specialty Start Date End Date Ja Ordaz MD [address] [place] [address] PCP - General Emergency Medicine 03/11/21 documented as of this encounter
--- OUTSIDE RECORDS SUMMARY | 2024-04-05 16:23 | XMS_ITS | Encounter Summary ---
Author Organization [facility] [place] [address] Care Team Providers Care Digital Printer Operator Name Role Phone Ja Ordaz MD Primary Care Provider [phone] Encounter Details Date Type Department Care Team (Late st Contact Info) Description 03/20/2023 Telephone [place] [address] Lizz Lares, RN Social History Tobacco Use [...] Telephone Encounter - Lizz Lares RN - 03/20/2023 3:55 PM EST Copied from CRM #[id number]. Topic: Specialty Dept CRMs - Prior Auth Med >> Mar 20, 2023 3:38 PM Vincent Rothman wrote: Prior Auth Needed Regional Sales Leader: Dr Omalley Relationship (if other than patient-full name): Danelle [employer] Medication, Dose, and Frequency (Copy and Paste from e-SNAPCARD): Evenity Name of Prescription Carrier (if different than health coverage): IND BCBS Benefits or Prescription Carrier ID#: [id number] BCBS the determination has denied the Evenity, If provider would like he can set up a peer to peer with BCBS within 6 months at [phone] documented in this encounter Plan of Treatment Upcoming Encounters Date Type Department Care Team (Latest Contact Info) Description 04/06/2024 11:30 AM EST Hospital Encounter Outpatient [place] [address] Cadence Eric MD [facility] [place] [address] 04/06/2024 11:30 AM EST - 04/06/2024 12:50 PM EST Surgery [place]patient [place] [address] Cadence Eric MD [facility] [place] [address] IMPLANT NEUROSTIMULATOR ELECTRODES, PERIPHERAL NERVE (WRVU 5.76) 04/14/2024 2:30 PM EST Office Visit [place] [phone] Cadence Eric MD [facility] [place] [address] Scheduled Procedures Name Priority Associated Diagnoses Date/Ti [...] on filedocumented in this encounter Care Teams Digital Printer Operator Relationship Specialty Start Date End Date Ja Ordaz MD [address] [place] [address] PCP - General Emergency Medicine 03/11/21 documented as of this encounter
--- OUTSIDE RECORDS SUMMARY | 2024-04-05 16:23 | XMS_ITS | Encounter Summary ---
Author Organization [facility] Address [facility] Alyssa [facility] [place] [address] Care Team Providers Care Floor Inspector Name Role Phone Ja Ordaz MD Primary Care Provider [phone] Reason for Referral * Diagnostic Test (Routine) - Closed Specialty Diagnoses / Procedures Referred By Contac t Referred To Contact Radiology Diagnoses Status post revision of total replacement of left knee Procedures CT Knee wo Contrast Left (Generic) Izzy Crane PA [facility] [place] [address] [place] [address] Referral ID Status Reason Start Date Expiration Date V isits Requested Visits Authorized [id number] Closed Specialty Service Requested 04/16/2023 10/15/2024 1 1 Reason for Visit * Diagnostic Test (Routine) - Closed Specialty Diagnoses / Procedures Referred By Contac t Referred To Contact Radiology Diagnoses Status post revision of total replacement of left knee Procedures CT Knee wo Contrast Left (Generic) Izzy Crane PA [facility] [place] [address] [place] [address] Referral ID Status Reason Start Date Expiration Date V isits Requested Visits Authorized [id number] Closed Specialty Service Requested 04/16/2023 10/15/2024 1 1 Encounter Details Date Type Department Care Team (Latest Contact Info) Description 04/23/2023 3:05 PM EST - 04/23/2023 11:59 PM EST Hospital Encounter CT Scan at [facility] [place] [address] Wayne Sanchez MD [facility] [place] [address] Status post revision of total replacement of [...] daily. 2 gummies daily=4MG NARCAN 4 mg/actuation [place], Non-Aerosol instill 1 spray in 1 NOSTRIL if needed for opioid overdose may re... (REFER TO PRESCRIPTION NOTES). 0 12/08/2018 multivitamin with minerals Tablet Take 1 tablet by mouth daily. morphine sulfate/D5W (MORPHINE IN D5W) 1 mg/mL Prefilled Pump [place] Inject as directed. Has intrathecal pump with [...] AM EST Hospital Encounter [place]patient [place] [address] Cadence Eric MD [facility] [address] 04/06/2024 11:30 AM EST - 04/06/2024 12:50 PM EST Surgery [place]patient [place] [address] Cadence Eric MD [facility] [place] [address] IMPLANT NEUROSTIMULATOR ELECTRODES, PERIPHERAL NERVE (WRVU 5.76) 04/14/2024 2:30 PM EST Office Visit Pain and Spine Center at [facility] [place] [address] Cadence Eric MD [facility] [place] [address] Scheduled Procedures Name Priority Associated Diagnoses Date/Ti [...] Procedure Name Priority Date/Time Associated Diagnosis Comments CT KNEE WO CONTRAST LEFT (GENERIC) Routine 04/23/2023 3:48 PM EST Status post revision of total replacement of left knee documented in this encounter Results * CT Knee wo [...] who have questions please contact the health post acute care registered nurse that requested your imaging first. ? Narrative [...] calculated using themethod described by Mariana and Rubelena. Tibial Component Rotation: C: Line connected to [...] patients who have questions please contactthe health post acute care registered nurse that requested your imaging first. 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
--- OUTSIDE RECORDS SUMMARY | 2024-04-05 16:23 | XMS_ITS | Encounter Summary ---
Author Organization [facility] Address [facility] [place] [address] Care Team Providers Care Soda Worker Name Role Phone Ja Ordaz MD Primary Care Provider [phone] Encounter Details Date Type Department Care Team (Latest Contact Info) Description 04/10/2023 11:07 AM EST - 04/10/2023 11:59 PM [facility] Hospital Encounter Mammography/[place] [address] Dawson Omalley MD [facility] [place] [place] [address] Osteoporosis, unspecified osteoporosis type, unspecified pathological fracture presence Discharge Disposition: Home Social History Tobacco Use [...] daily. 2 gummies daily=4MG NARCAN 4 mg/actuation [place], Non-Aerosol instill 1 spray in 1 NOSTRIL if needed for opioid overdose may re... (REFER TO PRESCRIPTION NOTES). 0 12/08/2018 multivitamin with minerals Tablet Take 1 tablet by mouth daily. morphine sulfate/D5W (MORPHINE IN D5W) 1 mg/mL Prefilled Pump [place] Inject as directed. Has intrathecal pump with [...] AM EST Hospital Encounter Outpatient [place] [address] Cadence Eric MD [facility] [place] [address] 04/06/2024 11:30 AM EST - 04/06/2024 12:50 PM EST Surgery Outpatient [place] [address] Cadence Eric MD [facility] [place] [address] IMPLANT NEUROSTIMULATOR ELECTRODES, PERIPHERAL NERVE (WRVU 5.76) 04/14/2024 2:30 PM EST Office Visit [place] [address] Cadence Eric MD [facility] [place] [address] Scheduled Procedures Name Priority Associated Diagnoses Date/Ti [...] Procedure Name Priority Date/Time Associated Diagnosis Comments DXA CENTRAL SPINE, HIP, AND/OR WHOLE BODY (GENERIC) Routine 04/10/2023 11:55 AM EST Osteoporosis, unspecified osteoporosis type, unspecified pathological fracture presence documented in this encounter Results * DXA [...] BMD measurements and plots are available in [email or web address] under the imaging tab. Paper copies will be sent to providers without [employer]Travel[email or web address] access. If you have received this report without the data sheet and do not have access to [employer] on original products, please contact Radiology Line Maintainer at [phone] Thursday thru Thursday 8am-4pm. Thank you for letting us participate in the care of this patient. ??If you are a health care provider and have any questions regarding this report, please contact the number below. ??For patients who have questions please contact the health youth career specialist that requested your imaging first. ? Narrative 04/10/2023 1:45 PM EST EXAMINATION: DXA CENTRAL SPINE, HIP, AND/OR WHOLE BODY (GENERIC) CLINICAL HISTORY: 62 years Female s/p fracture, please assess bmd including forearm and TBS. ?? (as entered by ordering provider) TECHNIQUE: Scans were acquired at the left forearm, lumbar spine and ??left hip using the [employer] Horizon A system. Trabecular bone score was [...] forearm, lumbar spine and lefthip using the Hologic Horizon A system. Trabecular [...] BMD measurements and plots are available in EAuthyunder the imaging tab. Paper copies will be sent to providers without Authy access.If you have received this report without the data sheet and do not haveaccess to [facility], please contact Radiology Line Maintainer at [phone] Thursday thruFrid 8am-4pm. Thank you for letting us participate in the care of this patient. If youare a health care provider and have any questions regarding this report,please contact the number below. For patients who have questions please contactthe health youth career specialist that requested your imaging first. Dawson Omalley MD IMG DEXA ORDERABLES documented in this encounter Visit Diagnoses Diagnosis Osteoporosis, unspecified osteoporosis type, unspecified pathological fracture presence Saphenous neuralgia, right documented in this encounter Care Teams Soda Worker Relationship Specialty Start Date End Date Ja Ordaz MD [address] [place] [address] PCP - General Emergency Medicine 03/11/21 documented as of this encounter
--- OUTSIDE RECORDS SUMMARY | 2024-04-05 16:23 | XMS_ITS | Encounter Summary ---
Author Organization [facility] Address [facility] [place] [address] Care Team Providers Care It Compliance Analyst Name Role Phone Ja Ordaz MD Primary Care Provider [phone] Encounter Details Date Type Department Care Team (Latest Contact Info) Description 11/27/2022 1:04 PM EDT - 11/27/2022 11:59 PM EDT Hospital [place] [address] Osteoporosis, unspecified osteoporosis type, unspecified pathological fracture presence; Obesity, unspecified classification, unspecified obesity type, unspecified whether serious comorbidity present Discharge Disposition: Home Social History Tobacco Use [...] daily. 2 gummies daily=4MG NARCAN 4 mg/actuation [place], Non-Aerosol instill 1 spray in 1 NOSTRIL if needed for opioid overdose may re... (REFER TO PRESCRIPTION NOTES). 0 12/08/2018 multivitamin with minerals Tablet Take 1 tablet by mouth daily. morphine sulfate/D5W (MORPHINE IN D5W) 1 mg/mL Prefilled Pump [place] Inject as directed. Has intrathecal pump with continuous rate and Has 5 preset prn boluses pt may give herself calcium carbonate/vitamin D3 (VITAMIN D-3 ORAL) Take by mouth daily. 1 estradioL (ESTRACE) 0.01 % (0.1 mg/gram) Cream [...] AM EST Hospital Encounter [place] [address] Cadence Eric MD [facility] [place] [address] 04/06/2024 11:30 AM EST - 04/06/2024 12:50 PM EST Surgery [place]patient [place] [address] Cadence Eric MD [facility] [place] [address] IMPLANT NEUROSTIMULATOR ELECTRODES, PERIPHERAL NERVE (WRVU 5.76) 04/14/2024 2:30 PM EST Office Visit Pain and Spine Center at [facility] [place] [address] Cadence Eric MD [facility] [place] [address] Scheduled Procedures Name Priority Associated Diagnoses Date/Ti [...] Procedure Name Priority Date/Time Associated Diagnosis Comments U24 HRS AND VOLUME Routine 11/27/2022 11 :00 AM EDT CALCIUM, URINE, 24 HOUR Routine 11/27/2022 11:00 AM EDT Osteoporosis, unspecified osteoporosis type, unspecified pathological fracture presence Obesity, unspecified classification, unspecified obesity type, unspecified whether serious comorbidity present CREATININE, URINE, 24 HOUR Routine 11/27/2022 11:00 AM EDT Osteoporosis, unspecified osteoporosis type, unspecified pathological fracture presence Obesity, unspecified classification, unspecified obesity type, unspecified whether serious comorbidity present documented in this encounter Results * U24 Hrs and Volume (11/27/2022 11:00 AM EDT) Hours Collected 24 hour(s) [facility] Total Volume 2,000 mL [facility] Urine 11/27/2022 11:0 0 AM EDT 11/27/2022 1:59 PM EDT Narrative Resulting Agency Comment Spec In Lab Dawson Omalley MD CHEMISTRY ORDERABLES Performing Organization Address [place]/[facility] Co de Phone Number [facility] [place] [address] * Calcium, urine, 24 hour (11/27/2022 11:00 AM EDT) Ca Concentration, U24 11.0 mg/dL [facility] Calcium, 24 Hour Urine 220.0 50.0 - 300.0 mg/24hr [facility] Comment:Reference Range: 50. 0-300.0 mg/24 hour based on diet. Urine 11/27/2022 11:0 0 AM EDT 11/27/2022 1:59 PM EDT Narrative Resulting Agency Comment Spec In Lab Dawson Omalley MD URINE ORDERABLES Performing Organization Address [facility] Co de Phone Number [facility] [place] [address] * Creatinine, urine, 24 hour (11/27/2022 11:00 AM EDT) Cre Concentration, U24 48 mg/dL [facility] Creatinine, 24 Hour Urine 0.96 0.70 - 1.60 g/24hr [facility] Urine 11/27/2022 11:0 0 AM EDT 11/27/2022 1:59 PM EDT Narrative Resulting Agency Comment Spec In Lab Dawson Omalley MD URINE ORDERABLES Performing Organization Address [place]/[facility] Co de Phone Number [facility] [place] [address] documented in this encounter Visit Diagnoses Diagnosis Osteoporosis, unspecified osteoporosis type, unspecified pathological fracture presence Obesity, unspecified classification, unspecified obesity type, unspecified whether serious comorbidity present Saphenous neuralgia, right documented in this encounter Care Teams It Compliance Analyst Relationship Specialty Start Date End Date Ja Ordaz MD [address] [place] [address] PCP - General Emergency Medicine 03/11/21 documented as of this encounter
--- OUTSIDE RECORDS SUMMARY | 2024-04-05 16:23 | XMS_ITS | Encounter Summary ---
Author Organization [facility] Address [facility] [place] [address] Care Team Providers Care Cloth Weaver Name Role Phone Ja Ordaz MD Primary Care Provider [phone] Encounter Details Date Type Department Care Team (Late st Contact Info) Description 11/13/2022 Orders [place] [address] Wayne Sanchez MD [facility] [place] [address] s/p Left Total Knee Arthroplasty - 03/29/2020 Dr. Jacobson; S/P TKR (total knee replacement), left; s/p revision L TKA 09/10/21 (Dr. Sanchez) Social History Tobacco Use Types Packs/Day Years [...] AM EST Hospital Encounter [place] [address] Cadence Eric MD [facility] [place] [address] 04/06/2024 11:30 AM EST - 04/06/2024 12:50 PM EST Surgery [place] [address] Cadence Eric MD [facility] [place] [address] IMPLANT NEUROSTIMULATOR ELECTRODES, PERIPHERAL NERVE (WRVU 5.76) 04/14/2024 2:30 PM EST Office Visit [facility] [place] [address] Cadence Eric MD [facility] [place] [address] Scheduled Procedures Name Priority Associated Diagnoses Date/Ti me IMPLANT NEUROSTIMULATOR ELECTRODES, PERIPHERAL NERVE (WRVU 5.76) Yes Saphenous neuralgia, right 04/06/2024 11:30 AM EST IMPLANT NEUROSTIMULATOR ELECTRODES, PERIPHERAL NERVE (WRVU 5.76) Saphenous neuralgia, 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 Neuropathic pain COLONOSCOPY,SCREENING (WRVU 3.26) Health maintenance examination-screening colo documented as of this encounter Visit Diagnoses Diagnosis s/p Left Total Knee Arthroplasty - 03/29/2020 Dr. Jacobson Primary localized osteoarthrosis, lower leg S/P TKR (total knee replacement), left s/p revision L TKA 09/10/21 (Dr. Sanchez) Saphenous neuralgia, right documented in this encounter Care Teams Cloth Weaver Relationship Specialty Start Date End Date Ja Ordaz MD [address] [place] [address] PCP - General Emergency Medicine 03/11/21 documented as of this encounter
--- OUTSIDE RECORDS SUMMARY | 2024-04-05 16:23 | XMS_ITS | Encounter Summary ---
Author Organization Formerly [facility] Address [facility] [place] [address] Care Team Providers Care Longwall Headgate Operator Name Role Phone Ja Ordaz MD Primary Care Provider [phone] Reason for Visit * Auth/Cert (Routine) Specialty Diagnoses / Procedures Referred By Conttom t Referred To Contact Diagnoses post laminectomy syndrome Procedures PRO ELECTRONIC PUMP ANALYSIS W REPROGRAMMING AND REFILL BY /SUPERVISOR TAN ROOM ELECTRONIC HERNANDEZ PROG., PUMP- DRUG INFUS; W/ REPROGRAM & REFILL REQ (WRVU 0.9) Cadence Eric MD [facility] [place] [address] [facility] Referral ID Status Reason Start Date Expiration Date Visits Re quested Visits Authorized [id number] 1 1 Encounter Details Date Type Department Care Team (Latest Contact Info) Description 10/24/2022 10:51 AM EDT - 10/24/2022 11:37 AM EDT Hospital En[place] [address] Cadence Eric MD [facility] [address] Postlaminectomy syndrome of lumbar region; Presence of [...] daily. 2 gummies daily=4MG NARCAN 4 mg/actuation [place], Non-Aerosol instill 1 spray in 1 NOSTRIL if needed for opioid overdose may re... (REFER TO PRESCRIPTION NOTES). 0 12/08/2018 multivitamin with minerals Tablet Take 1 tablet by mouth daily. morphine sulfate/D5W (MORPHINE IN D5W) 1 mg/mL Prefilled Pump [place] Inject as directed. 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 use of opiate analgesic Oxycodone [...] 0.54) performed by Cadence Eric MD at [facility] PAIN MGMT MSO PRO ARTHROPLASTY KNEE CONDYLE & PLATEAU MEDIAL & LAT COMPARTMENTS Left 03/29/2020 TOTAL KNEE ARTHROPLASTY (WRVU 20.72) performed by Maykel Jacobson MD at [facility] MAIN OR PRO COLONOSCOPY, BIOPSY 10/07/2011 COLONOSCOPY FLEXIBLE, WITH BX performed by NIKKI MAYORGA at [facility] ENDOSCOPY PRO COLONOSCOPY, DIAGNOSTIC 09/23/2011 COLONOSCOPY, DIAGNOSTIC performed by NIKKI MAYORGA at [facility] ENDOSCOPY PRO ELECTRONIC PUMP ANALYSIS W REPROGRAMMING AND REFILL BY /NAHID N/A 03/30/2019 ELECTRONIC HERNANDEZ PROG., PUMP- DRUG INFUS; W/ REPROGRAM & REFILL REQ (WRVU 0.9) performed by Karl Becker MD at [facility] PAIN MGMT MSO PRO ELECTRONIC PUMP ANALYSIS W REPROGRAMMING AND REFILL BY /NAHID N/A 12/05/2019 ELECTRONIC HERNANDEZ PROG., PUMP- DRUG INFUS; W/ REPROGRAM & REFILL REQ (WRVU 0.9) performed by Karl Becker MD at [facility] PAIN MGMT MSO PRO ELECTRONIC PUMP ANALYSIS W REPROGRAMMING AND REFILL BY /NAHID N/A 03/12/2020 ELECTRONIC HERNANDEZ PROG., PUMP- DRUG INFUS; W/ REPROGRAM & REFILL REQ (WRVU 0.9) performed by Karl Becker MD at [facility] PAIN MGMT MSO PRO ELECTRONIC PUMP ANALYSIS W REPROGRAMMING AND REFILL BY /NAHID N/A 11/07/2020 ELECTRONIC HERNANDEZ PROG., PUMP- DRUG INFUS; W/ REPROGRAM & REFILL REQ (WRVU 0.9) performed by Karl Becker MD at [facility] PAIN MGMT MSO PRO ELECTRONIC PUMP ANALYSIS W REPROGRAMMING AND REFILL BY /NAHID N/A 03/13/2021 ELECTRONIC HERNANDEZ PROG., PUMP- DRUG INFUS; W/ REPROGRAM & REFILL REQ (WRVU 0.9) performed by Karl Becker MD at [facility] PAIN MGMT MSO PRO ELECTRONIC PUMP ANALYSIS W REPROGRAMMING AND REFILL BY /NAHID N/A 03/12/2022 ELECTRONIC HERNANDEZ PROG., PUMP- DRUG INFUS; W/ REPROGRAM & REFILL REQ (WRVU 0.9) performed by Nicolas Erickson MD at [facility] PAIN MGMT MSO PRO ELECTRONIC PUMP ANALYSIS W REPROGRAMMING AND REFILL BY /NAHID N/A 07/04/2022 ELECTRONIC HERNANDEZ PROG., PUMP- DRUG INFUS; W/ REPROGRAM & REFILL REQ (WRVU 0.9) performed by Cadence Eric MD at [facility] PAIN MGMT MSO PRO IMP SPINAL CANAL CATH Midline 03/23/2019 IMPLANT, REV OR REP TUNNELED INTRATHACAL OR EPIDURAL CATHETER (WRVU 6.05) performed by Karl Becker MD at [facility] MAIN OR PRO INSERT/ REPLACE INFUSN PUMP, PROGRAMMABLE Right 03/23/2019 IMPLANT OR REPLACE PROG. PUMP-DRUG INFUSION (WRVU 5.6) performed by Melani Darden MD at [facility] ADEEL PRO LAP, CHOLECYSTECTOMY/GRAPH N/A 10/18/2016 LAPAROSCOPIC CHOLECYSTECTOMY WITH CHOLANGIOGRAM (WRVU 11.47) performed by Tasia Umaña MD at [facility] MAIN OR PRO LAP, SURG, REPAIR, VENTRAL, UMBILICAL, SPIGELIAN/EPIGASTRIC HERNIA; INCARCERATED/STRANGULATED N/A 07/12/2018 LAPAROSCOPIC HERNIA, VENTRAL, INCARCERATED, W-WO MESH (WRVU 14.94) performed by Izzy Blanco MD at [facility] MAIN OR PRO REVISE KNEE JOINT REPLACE, ALL PARTS Left 09/10/2021 @TOTAL KNEE REVISION ARTHROPLASTY, COMPLETE (WRVU 27.11) [facility] JOINT ASPIRATION - LARGE JOINT LEFT Left 07/03/2021 XR Fluoro Guided Joint Aspiration Large Left 07/03/2021 Brisa Florez PA [facility] RAD XRAY ALLERGIES: Latex, natural rubber; Peanut; [...] daily. 2 gummies daily=4MG NARCAN 4 mg/actuation [place], Non-Aerosol instill 1 spray in 1 NOSTRIL if needed for opioid overdosemay re... (REFER TO PRESCRIPTION NOTES). 0 multivitamin with minerals Tablet Take 1 tablet by mouth daily. morphine sulfate/D5W (MORPHINE IN D5W) 1 mg/mL Prefilled Pump [place] Inject as directed. Has intrathecal pump with [...] proceed. Williams Dior DO Pain Medicine Fellow [facility] Office: Pager: [phone] Associated attestation - Cadence Eric MD - [...] Pain Management Center Assisant Professor of Anesthesiology [employer] [address] [address] / [facility] documented in this encounter Miscellaneous Notes * Op Note - Cadence Eric MD - 10/24/2022 11:00 AM EDT Pain Management Operative Note Patient Name: Etelvina Cuadra : [id number] MR#: [id number] Case Date: 10/24/2022 Surgeon: Surgeon(s) and Role: [...] Operative Note Patient Name: Etelvina Cuadra : [id number] MR#: [id number] Case Date: 07/04/2022 Surgeon: Surgeon(s) and Role: * Cadence Eric MD - Primary * Darius Pickens MD - Fellow Present on Admission: Postlaminectomy syndrome of lumbar region Presence of intrathecal pump Postoperative diagnosis: Postlaminectomy syndrome of lumbar region Procedure(s) (LRB): ELECTRONIC HERNANDEZ PROG., PUMP- DRUG INFUS; W/ REPROGRAM & REFILL REQ (WRVU 0.9) (N/A) INTRATHECAL PUMP REFILL PROCEDURE NOTE WITH REPROGRAMMING Primary Applications Development Consultant: Cadence Eric MD Parquetry Floor Layer: Williams Noe MD Reason for Reprogramming: to [...] Replacement 12/03 Empty syringe concentration verified by tool design checker: yes If concentration of drug is [...] instilled into the pump according to the salon manager's directions without difficulty. Therewas no evidence of [...] assistance of Cadence Eric MD Pain Management Center Manager Of Drilling of Anesthesiology [employer] [address] [address] / [facility] documented in this encounter Plan of Treatment Upcoming Encounters Date Type Department Care Team (Latest Contact Info) Description 04/06/2024 11:30 AM EST Hospital Encounter Outpatient [place] [address] Cadence Eric MD [facility] [place] [address] 04/06/2024 11:30 AM EST - 04/06/2024 12:50 PM EST Surgery Outpatient [place] [address] Cadence Eric MD [facility] [place] [address] IMPLANT NEUROSTIMULATOR ELECTRODES, PERIPHERAL NERVE (WRVU 5.76) 04/14/2024 2:30 PM EST Office Visit [facility] [place] [address] Cadence Eric MD [facility] [address] Scheduled Procedures Name Priority Associated Diagnoses Date/Ti [...] Priority Date/Time Associated Diagnosis Comments Anal Inf Swahili Teacher W ReproRefil([id number]) 10/24/2022 11:24 AM EDT Postlaminectomy syndrome of [...] right documented in this encounter Care Teams Longwall Headgate Operator Relationship Specialty Start Date End Date Ja Ordaz MD [address] [place] [address] PCP - General Emergency Medicine 03/11/21 documented as of this encounter
--- OUTSIDE RECORDS SUMMARY | 2024-04-05 16:23 | XMS_ITS | Encounter Summary ---
Author Organization [facility] Address [facility] [place] [address] Care Team Providers Care Data Quality Consultant Name Role Phone Ja Ordaz MD Primary Care Provider Encounter Details Date Type Department Care Team (Latest Contact Info) Description 03/24/2023 2:00 PM EST TH Visit (TeleHealth) [place] [address] Dawson Omalley MD [facility] [place] [address] Obesity, unspecified classification, unspecified obesity type, unspecified [...] as of this encounter Progress Notes * Dawson Omalley MD - 03/24/2023 2:00 PM EST Images from the original note were not included. Division of Endocrinology Date of Visit: 03/24/2023 Patient Name: Etelvina Cuadra : 1960 PCP: Ja Ordaz MD Mrs Etelvina Aponte [place] 62yo women here for periprosthetic loosening follow-up. Started Tymlos sample and it caused palpitations and CP and was stopped. Cornelia was denied for weight loss. After knee replacement a year ago, she still can not [...] actually is there [] 901-1100 mg [] 9792-5035 mg [] 1784-7882 mg [] Above 1500 mg Medications: Current Outpatient Medications on File Prior to Visit Medication Sig Dispense Refill amoxicillin (Amoxil) 500 mg tablet Take 4 tablets by mouth once as needed. Take 2 g (4 tablets) onehour prior to dental procedures 20 tablet 0 estradioL (Vagifem) 10 mcg vaginal tablet INSERT 1 TABLET INTO VAGINA DAILY FOR 2 WEEKS THEN TWICE WEEKLY AFTER THAT magnesium hydroxide (CASTELLON MILK OF MAGNESIA ORAL) Take by mouth as needed. baclofen (Lioresal) 10 mg tablet Take 10 mg by mouth 2 times daily as needed. [DISCONTINUED] abaloparatide (Tymlos) 80 mcg (3,120 mcg/1.56 mL) Pen Injector Inject 80 mcg subcutaneously daily. 1.56 mL 11 oxyCODONE (Roxicodone) 15 mg tablet Take 15 [...] daily. 2 gummies daily=4MG NARCAN 4 mg/actuation [place], Non-Aerosol instill 1 spray in 1 NOSTRIL if needed for opioid overdosemay re... (REFER TO PRESCRIPTION NOTES). 0 multivitamin with minerals Tablet Take 1 tablet by mouth daily. morphine sulfate/D5W (MORPHINE IN D5W) 1 mg/mL Prefilled Pump [place] Inject as directed. Has intrathecal pump with continuous rate and Has 5 preset prn boluses pt may give herself No current facility-administered medications on file prior [...] Types: Cigarettes Quit date: 09/23/1991 Years since quittin.5 Smokeless tobacco: Never Vaping Use Vaping Use: [...] Housing Stability: Not on file Physical Examination: oriented x 3, in nad. Labs 11/2022 Ca 9.3, Phos 3.4, A1C 5.8, AP 65, 25-D 38, PTH 40, CTX 356, 24h urine Ca 220mg 08/2022 CBC in good range 09/2021 Chem 7 in good range Assessment and Plan Glucose intolerance/severe obesity/possible osteoporosis: I do think gainiong weight made prothesis situation worse as put more pressure on it. Will start Munjaro to loose it as A1C is elevated, now that tirzepatide is approved for weight loss. A. As patient's Ca intake is 500mg from food, MVI and and 3 Ca gummies ~750mg, PTH at good level, 24h urine ca as well B. Patient also does have Vitamin D at goal, 30 ng/ml and above. C. Will order BMD by DXA now with TBS now, P D. As 25 Vit D, PTH is at normal range metaanalysis show benefit of all osteoporosis medications for loose prothesis but particularly anabolic agents, could not tolerate Tymlos with CP, switched to Forteo to see if approved. E. I will schedule patient for outpatient [...] AM EST Hospital Encounter Outpatient [place] [address] Cadence Eric MD [facility] [place] [address] 04/06/2024 11:30 AM EST - 04/06/2024 12:50 PM EST Surgery [place]patient [place] [address] Cadence Eric MD [facility] [place] [address] IMPLANT NEUROSTIMULATOR ELECTRODES, PERIPHERAL NERVE (WRVU 5.76) 04/14/2024 2:30 PM EST Office Visit [facility] and Sp[facility] Center at [facility] [place] [address] Cadence Eric MD [facility] [place] [address] Scheduled Procedures Name Priority Associated Diagnoses Date/Ti me IMPLANT NEUROSTIMULATOR ELECTRODES, PERIPHERAL NERVE (WRVU 5.76) Yes Saphenous neuralgia, right 04/06/2024 11:30 AM EST IMPLANT NEUROSTIMULATOR ELECTRODES, PERIPHERAL NERVE (WRVU 5.76) Saphenous neuralgia, 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 Neuropathic pain COLONOSCOPY,SCREENING (WRVU 3.26) Health maintenance examination-screening colo documented as of this encounter Visit Diagnoses Diagnosis Obesity, unspecified classification, unspecified obesity type, unspecified whether serious comorbidity present Saphenous neuralgia, right documented in this encounter Care Teams Data Quality Consultant Relationship Specialty Start Date End Date Ja Ordaz MD [address] [place] [id number] PCP - General Emergency Medicine 03/11/21 documented as of this encounter
--- OUTSIDE RECORDS SUMMARY | 2024-04-05 16:23 | XMS_ITS | Encounter Summary ---
Author Organization [facility] [place] [address] Care Team Providers Care Medical Underwriter Name Role Phone Ja Ordaz MD Primary Care Provider [phone] Reason for Visit * Reason Onset Date Comments Prior Authorization 01/20/2023 Encounter Details Date Type Department Care Team ([facility] Contact Info) Description 01/20/2023 Telephone [place] [phone] Rita Cui Prior Authorization Social History Tobacco [...] * Telephone Encounter - Rita Cui - 01/23/2023 2:02 PM EDT Per provider: Lets hold off, I want to see if Tymlos will get approved instead of Evenity * Telephone Encounter - Rita Cui - 01/20/2023 11:55 AM EDT Medication Prior Authorization [place] Medication name/dose/directions: Evenity (J3111) 105MG/1.17ML - inject one syringe into each arm once monthly (Office) Rationale for request: Osteoporosis (M81.0) Health plan: [place] [facility] (Phone) Díaz: [phone] Authorizing food service representative name: Malissa Sent to health plan on: 01/20/23 Quantity approved: Authorization number: Start date: End date: Office notes will be faxed [phone] documented in this encounter Plan of Treatment Upcoming Encounters Date Type Department Care Team (Latest Contact Info) Description 04/06/2024 11:30 AM EST Hospital Encounter [place]patient [place] [address] Cadence Eric MD [facility] [place] [address] 04/06/2024 11:30 AM EST - 04/06/2024 12:50 PM EST Surgery [place] [address] Cadence Eric MD [facility] [place] [address] IMPLANT NEUROSTIMULATOR ELECTRODES, PERIPHERAL NERVE (WRVU 5.76) 04/14/2024 2:30 PM EST Office Visit [place] [address] Cadence Eric MD [facility] [place] [address] Scheduled Procedures Name Priority Associated Diagnoses Date/Ti [...] on filedocumented in this encounter Care Teams Medical Underwriter Relationship Specialty Start Date End Date Ja Ordaz MD [address] [place] [address] PCP - General Emergency Medicine 03/11/21 documented as of this encounter
--- OUTSIDE RECORDS SUMMARY | 2024-04-05 16:23 | XMS_ITS | Encounter Summary ---
Author Organization [facility] Address [facility] [place] [address] Care Team Providers Care Market Manager Name Role Phone Ja Ordaz MD Primary Care Provider [phone] Encounter Details Date Type Department Care Team (Latest Contact Info) Description 11/19/2022 Travel Social History Tobacco Use Types Packs/Day [...] AM EST Hospital Encounter Outpatient [place] [address] Cadence Eric MD [facility] [place] [address] 04/06/2024 11:30 AM EST - 04/06/2024 12:50 PM EST Surgery [place]patient [place] [address] Cadence Eric MD [facility] [place] [place] [address] IMPLANT NEUROSTIMULATOR ELECTRODES, PERIPHERAL NERVE (WRVU 5.76) 04/14/2024 2:30 PM EST Office Visit [place] [address] Cadence Eric MD [facility] [place] [place] [address] Scheduled Procedures Name Priority Associated Diagnoses Date/Ti [...] on filedocumented in this encounter Care Teams Market Manager Relationship Specialty Start Date End Date Ja Ordaz MD [address] [place] [id number] PCP - General Emergency Medicine 03/11/21 documented as of this encounter
--- OUTSIDE RECORDS SUMMARY | 2024-04-05 16:23 | XMS_ITS | Encounter Summary ---
Author Organization [facility] [place] [address] Care Team Providers Care Superintendent Service Name Role Phone Ja Ordaz MD Primary Care Provider [phone] Encounter Details Date Type Department Care Team (Late st Contact Info) Description 11/04/2022 Telephone Pain [place] [phone] Coco Travis RN Social History Tobacco Use Types Packs/Day [...] encounter Miscellaneous Notes * Telephone Encounter - Coco Travis RN - 11/04/2022 8:46 AM EDT Outgoing call to Etelvina in response to left on business process lead line stating that she had appointment with Dr. Sanchez and he told her that she has a stress fracture and recommended that she wear an aircastboot. Etelvina stated that she has had this pain for 10 months and she is requesting an increase in thefrequency of her pump medication bolus. Etelvina stated she is currently allowed a bolus every 3 hours but stated that she wants it changed to every 2 hours because she is having so much difficulty sleeping. I asked Etelvina if she discussed this pain with Dr. Eric in her refill visit and she stated she did and that Dr. Eric did adjust her bolus but she still feels that is not enough. I informed Etelvina that Dr. Eric may not want to increase the amount any more since this is an acute injury and not chronic. Etelvina then stated this has been 10 months of this pain it is chronic. I informed Etelvina I would share this information with Dr. Eric and that Dr. Eric's nurse would reach back out to her with a response. Etelvina voiced understanding. documented in this encounter Plan of Treatment Upcoming Encounters Date Type Department Care Team (Latest Contact Info) Description 04/06/2024 11:30 AM EST Hospital Encounter Outpatient [place] [address] Cadence Eric MD [facility] [place] [address] 04/06/2024 11:30 AM EST - 04/06/2024 12:50 PM EST Surgery Outpatient [place] [address] Cadence Eric MD [facility] [place] [address] IMPLANT NEUROSTIMULATOR ELECTRODES, PERIPHERAL NERVE (WRVU 5.76) 04/14/2024 2:30 PM EST Office Visit [facility] [place] [address] Cadence Eric MD [facility] [place] [address] Scheduled Procedures Name Priority Associated Diagnoses Date/Ti [...] on filedocumented in this encounter Care Teams Superintendent Service Relationship Specialty Start Date End Date Ja Ordaz MD [address] [place] [address] PCP - General Emergency Medicine 03/11/21 documented as of this encounter
--- OUTSIDE RECORDS SUMMARY | 2024-04-05 16:23 | XMS_ITS | Encounter Summary ---
Author Organization [facility] [place] [address] Care Team Providers Care Benefits Clerk Name Role Phone Ja Ordaz MD Primary Care Provider [phone] Reason for Visit * Reason Onset Date Comments Questions 11/17/2022 Encounter Details Date Type Department Care Team (Late st Contact Info) Description 11/17/2022 Telephone [place] [phone] Clinic, Dr Sanchez Team None Questions Social [...] encounter Miscellaneous Notes * Telephone Encounter - Gt Hartman - 11/20/2022 11:37 AM EDT Patient scheduled with Dr. Sanchez on 01/21/23 * Telephone Encounter - Laura Rolon - 11/20/2022 10:47 AM EDT I reached out to Etelvina yesterday after speaking to Dr. Sanchez. We discussed that she has a stress response not a fracture. Dr. Sanchez doesn't want her to be non- weightbearing but is fine if she uses crutches or a walker to limit weight some to help with the discomfort. She agrees with the above and will pick and shovel worker crutches after her appointment at [facility]. I will have the scheduling team reach out to her to get a follow up scheduled due to her continued pain * Telephone Encounter - Elvi Armando - 11/17/2022 10:35 AM EDT Name of person calling: Etelvina Facility person is calling from?: na Was this a new injury? no Have you had Surgery?09/10/21 Who was the Surgeon?Dr. Sanchez What is the question: Etelvina states she is unable to remain non weight bearing while wearing her air cast boot as she has a hard time remaining balanced. She is requesting that crutches are ordered forher to help with her balance. [place] [facility] [place]. Please advise Best number to reach the caller: [phone] documented in this encounter Plan of Treatment Upcoming Encounters Date Type Department Care Team (Latest Contact Info) Description 04/06/2024 11:30 AM EST Hospital Encounter Outpatient [place] [address] Cadence Eric MD [facility] [place] [address] 04/06/2024 11:30 AM EST - 04/06/2024 12:50 PM EST Surgery Outpatient [place] [address] Cadence Eric MD [facility] [place] [address] IMPLANT NEUROSTIMULATOR ELECTRODES, PERIPHERAL NERVE (WRVU 5.76) 04/14/2024 2:30 PM EST Office Visit [place] [address] Cadence Eric MD [facility] [place] [address] Scheduled Procedures Name Priority Associated Diagnoses Date/Ti me IMPLANT NEUROSTIMULATOR ELECTRODES, PERIPHERAL NERVE (WRVU 5.76) Yes Saphenous neuralgia, right 04/06/2024 11:30 AM EST IMPLANT NEUROSTIMULATOR ELECTRODES, PERIPHERAL NERVE (WRVU 5.76) Saphenous neuralgia, 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 Neuropathic pain COLONOSCOPY,SCREENING (WRVU 3.26) Health maintenance examination-screening colo documented as of this encounter Visit Diagnoses Diagnosis Loosening of prosthesis of left total knee replacement, sequela Saphenous neuralgia, right documented in this encounter Care Teams Benefits Clerk Relationship Specialty Start Date End Date Ja Ordaz MD [address] [place] [id number] PCP - General Emergency Medicine 03/11/21 documented as of this encounter
--- OUTSIDE RECORDS SUMMARY | 2024-04-05 16:23 | XMS_ITS | Encounter Summary ---
Author Organization [facility] [place] [address] Care Team Providers Care Instrumentation And Control Technician Name Role Phone Ja Ordaz MD Primary Care Provider [phone] Encounter Details Date Type Department Care Team (Late st Contact Info) Description 11/25/2022 Tele[place] [phone] Lizz Lares RN Social History Tobacco Use Types Packs/Day [...] Telephone Encounter - Lizz Lares RN - 11/25/2022 12:11 PM EDT Copied from [facility] #[id number]. Topic: Specialty Dept CRMs - Generic Call >> Nov 25, 2022 10:58 AM Lyubov Márquez wrote: Specialist: Dawson Omalley MD Relationship (if other than patient-full name): Self Reason for Call: Patient called in stating that the provider needs to know she had a bone removed on the leg she has been having a problem with when she was 17 . documented in this encounter Plan of Treatment Upcoming Encounters Date Type Department Care Team (Latest Contact Info) Description 04/06/2024 11:30 AM EST Hospital Encounter [place] [address] Cadence Eric MD [facility] [place] [address] 04/06/2024 11:30 AM EST - 04/06/2024 12:50 PM EST Surgery [place] [address] Cadence Eric MD [facility] [place] [address] IMPLANT NEUROSTIMULATOR ELECTRODES, PERIPHERAL NERVE (WRVU 5.76) 04/14/2024 2:30 PM EST Office Visit [place] [address] Cadence Eric MD [facility] [place] [address] Scheduled Procedures Name Priority Associated Diagnoses Date/Ti [...] on filedocumented in this encounter Care Teams Instrumentation And Control Technician Relationship Specialty Start Date End Date Ja Ordaz MD [address] [place] [address] PCP - General Emergency Medicine 03/11/21 documented as of this encounter
--- OUTSIDE RECORDS SUMMARY | 2024-04-05 16:23 | XMS_ITS | Encounter Summary ---
Author Organization [facility] Address [facility] [place] [address] Care Team Providers Care Gasoline Pump Installer Name Role Phone Ja Ordaz MD Primary Care Provider [phone] Encounter Details Date Type Department Care Team (Latest Contact Info) Description 10/29/2022 Travel Social History Tobacco Use Types Packs/Day [...] AM EST Hospital Encounter [place]patient [place] [address] Cadence Eric MD [facility] [place] [address] 04/06/2024 11:30 AM EST - 04/06/2024 12:50 PM EST Surgery [place] [phone] Cadence Eric MD [facility] [place] [address] IMPLANT NEUROSTIMULATOR ELECTRODES, PERIPHERAL NERVE (WRVU 5.76) 04/14/2024 2:30 PM EST Office Visit [place] [address] Cadence Eric MD [facility] [place] [address] Scheduled Procedures Name Priority Associated Diagnoses Date/Ti [...] on filedocumented in this encounter Care Teams Gasoline Pump Installer Relationship Specialty Start Date End Date Ja Ordaz MD [address] [place] [address] PCP - General Emergency Medicine 03/11/21 documented as of this encounter
--- OUTSIDE RECORDS SUMMARY | 2024-04-05 16:23 | XMS_ITS | Encounter Summary ---
Author Organization [facility] Address [facility] [place] [address] Care Team Providers Care Lithographic Stripper Name Role Phone Ja Ordaz MD Primary Care Provider [phone] Encounter Details Date Type Department Care Team (Latest Contact Info) Description 02/09/2023 Travel Social History Tobacco Use Types Packs/Day [...] AM EST Hospital Encounter [place]patient [place] [address] Cadence Eric MD [facility] [place] [address] 04/06/2024 11:30 AM EST - 04/06/2024 12:50 PM EST Surgery [place] [phone] Cadence Eric MD [facility] [place] [address] IMPLANT NEUROSTIMULATOR ELECTRODES, PERIPHERAL NERVE (WRVU 5.76) 04/14/2024 2:30 PM EST Office Visit [facility] [place] [address] Cadence Eric MD [facility] [place] [address] Scheduled Procedures Name Priority Associated Diagnoses Date/Ti [...] on filedocumented in this encounter Care Teams Lithographic Stripper Relationship Specialty Start Date End Date Ja Ordaz MD [address] [place] [address] PCP - General Emergency Medicine 03/11/21 documented as of this encounter
--- OUTSIDE RECORDS SUMMARY | 2024-04-05 16:23 | XMS_ITS | Encounter Summary ---
Author Organization [facility] [place] [address] Care Team Providers Care Shrimp Trawler Name Role Phone Ja Ordaz MD Primary Care Provider [phone] Reason for Visit * Reason Comments Follow-up S/P LEFT TOTAL KNEE ARTHROPLASTY 03/29/2020 DR. JACOBSON, TKR (TOTAL KNEE REPLACEMENT), LEFT REVISION L TKA 09/10/21 (DR. SANCHEZ) Encounter Details Date Type Department Care Team (Late st Contact Info) Description 01/21/2023 10:40 AM EDT Office [place] [phone] Clinic, Dr Sanchez Team None Stress response; Acquired pes planus of left foot; Hx of foot surgery Social History Tobacco Use Types Packs/Day Years [...] - Inhaled Oxygen Concentration - - Weight 111.5 kg (245 lb 12.8 oz) 2022 10:27 AM EDT Height - - Body Mass Index 48 01/20/2023 10:35 AM EDT documented in this encounter Progress Notes * Rosa Maria, JENNY Sanchez - 01/21/2023 10:40 AM EDT Arthroplasty/Orthopaedic History: Right medial unicompartmental knee replacement (likely cemented mobile beraing [place]) [facility]2012 Left TKA 03/29/2020 (Dr. Jacobson) L TKA Revision for aseptic loosening 09/10/21 (Dr. Sanchez) HPI: Etelvina Cuadra is a very pleasant 62 y.o. year-old female and is now over 1 year post left totalknee revision. Workup for component failure has been benign. At last visit, discussed tibial stressresponse. Reports that the bone stimulator has been helpful for her. Pain is improving, slowly. Shedid not tolerate ankle stirrup. Working to increase activity. Thinks she needs a new orthotic for left shoe. ROS: Denies: fever, chills, night sweats, nausea, or vomiting Wt 111.5 kg (245 lb 12.8 oz) BMI 48.00 kg/m?? Physical Exam: Well-appearing female in no [...] Motor: Normal Distal Sensory: Normal Quadriceps Strength: 5 X-RAYS: personally reviewed. Stable implants without signs of failure. CT personally reviewed from hip to ankle. It reveals well placed components without evidence of failure. No fracture or bony reaction at tibia. Questionnaire Responses: 01/14/2023 9:04 AM [facility] Surgical Postop Visit KOOS JR Scores 59.38 01/14/2023 9:04 AM [facility] Response KOOS JR Scores 59.38 01/14/2023 9:04 AM [facility] Response KOOS JR Scores 59.38 ASSESSMENT/PLAN: Ms. Cuadra is a 62 y.o. 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 Reviewed exam and imaging. Clinically she is improving. Discussed gradual progression of activity as tolerated. Refilled dental antibiotics. Referral for orthotic sent to [place]. RTC 6 months with XR Signed: JENNY Streeter documented in this encounter Plan of Treatment Upcoming Encounters Date Type Department Care Team (Latest Contact Info) Description 04/06/2024 11:30 AM EST Hospital Encounter [place]patient [place] [address] Cadence Eric MD [facility] [place] [address] 04/06/2024 11:30 AM EST - 04/06/2024 12:50 PM EST Surgery [place] [address] Cadence Eric MD [facility] [place] [address] IMPLANT NEUROSTIMULATOR ELECTRODES, PERIPHERAL NERVE (WRVU 5.76) 04/14/2024 2:30 PM EST Office Visit [place] [address] Cadence Eric MD [facility] [place] [address] Scheduled Procedures Name Priority Associated Diagnoses Date/Ti me IMPLANT NEUROSTIMULATOR ELECTRODES, PERIPHERAL NERVE (WRVU 5.76) Yes Saphenous neuralgia, right 04/06/2024 11:30 AM EST IMPLANT NEUROSTIMULATOR ELECTRODES, PERIPHERAL NERVE (WRVU 5.76) Saphenous neuralgia, 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 Neuropathic pain COLONOSCOPY,SCREENING (WRVU 3.26) Health maintenance examination-screening colo documented as of this encounter Visit Diagnoses Diagnosis Stress response Other acute reactions to stress Acquired pes planus of left foot Hx of foot surgery Personal history of surgery to other organs Saphenous neuralgia, right documented in this encounter Care Teams Shrimp Trawler Relationship Specialty Start Date End Date Ja Ordaz MD [address] [place] [address] PCP - General Emergency Medicine 03/11/21 documented as of this encounter
--- OUTSIDE RECORDS SUMMARY | 2024-04-05 16:23 | XMS_ITS | Encounter Summary ---
Author Organization [facility] Address [facility] [place] [address] Care Team Providers Care Real Estate Assessor Name Role Phone Ja Ordaz MD Primary Care Provider [phone] Encounter Details Date Type Department Care Team (Late st Contact Info) Description 01/20/2023 10:30 AM EDT Office [place] [address] Gopal Rivero MD [facility] [place] [address] Arthralgia of left lower leg; Obesity, unspecified classification, unspecified obesity type, unspecified [...] Sign Reading Time Taken Comments Blood Pressure 113/59 01/20/2023 10:35 AM EDT Pulse 67 01/20/2023 10:35 AM EDT Temperature - - Respiratory Rate - - Oxygen Saturation 98% 01/20/2023 10:35 AM EDT Inhaled Oxygen Concentration - - Weight 111.6 kg (246 lb) 01/20/2023 10:35 AM EDT Height 152.4 cm (5') 01/20/2023 10:35 AM EDT Body Mass Index 48.04 01/20/2023 10:35 AM EDT documented in this encounter Progress Notes * Hugo Donovan MD - 01/20/2023 10:30 AM EDT Images from the original note were not included. 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 Tymlos for whatever reason was not filled. After knee replacement a year ago, she still can ot walk due to severe pain in bone where prothesis ends, if leg is off ground no pain at all. During last year she has gain a lot of weight as I can not move. Adelero has been declined and it is in appeal process. BMD by DXA not done yet. Other risk factors for fracture/osteoporosis are: [] [...] actually is there [] 901-1100 mg [] 1273-6921 mg [] 3249-9318 mg [] Above 1500 mg Medications: Current Outpatient Medications on File Prior to Visit Medication Sig Dispense Refill estradioL (Vagifem) 10 mcg vaginal tablet INSERT 1 TABLET INTO VAGINA DAILY FOR 2 WEEKS THEN TWICE WEEKLY AFTER THAT magnesium hydroxide (CASTELLON MILK OF MAGNESIA ORAL) Take by mouth as needed. baclofen (Lioresal) 10 mg tablet Take 10 mg by mouth 2 times daily as needed. calcium carbonate/vitamin D3 (VITAMIN D-3 ORAL) Take by mouth daily. oxyCODONE (Roxicodone) 15 mg tablet Take 15 mg by mouth 3 times daily as needed for Pain. acetaminophen (Tylenol) 500 mg Tablet Take 2 [...] daily. 2 gummies daily=4MG NARCAN 4 mg/actuation [place], Non-Aerosol instill 1 spray in 1 NOSTRIL if needed for opioid overdosemay re... (REFER TO PRESCRIPTION NOTES). 0 multivitamin with minerals Tablet Take 1 tablet by mouth daily. morphine sulfate/D5W (MORPHINE IN D5W) 1 mg/mL Prefilled Pump [place] Inject as directed. Has intrathecal pump with continuous rate and Has 5 preset prn boluses pt may give herself abaloparatide (Tymlos) 80 mcg (3,120 mcg/1.56 mL) Pen Injector Inject 80 mcg subcutaneously daily. (Patient not taking: Reported on 01/20/2023) 1.56 mL 11 estradioL (ESTRACE) 0.01 % (0.1 mg/gram) Cream INSERT 1 APPLICATOFUL INTO THE VAGINA ONCE A DAY FOR2 WEEKS THEN DECREASE OVER 2 WEEKS TO TWICE WEEKLY EPINEPHrine 0.3 mg/0.3 mL Auto-Injector [DISCONTINUED] polyethylene glycol 3350 (MIRALAX ORAL) Take by mouth. epinephrine HCl/PF (EPINEPHrine, pf,) 1 mg/mL (1:1,000) [...] Z96.652 s/p revision L TKA 09/10/21 (Dr. aSnchez) Z96.652 Allergies Allergen Reactions Latex, Natural Rubber [...] Types: Cigarettes Quit date: 09/23/1991 Years since quittin.3 Smokeless tobacco: Never Vaping Use Vaping Use: [...] Stability: Not on file Physical Examination: BP 113/59 Pulse 67 Ht 152.4 cm (5') Wt 111.6 kg (246 lb) SpO2 98% BMI 48.04 kg/m?? Spine: without kyphosis, without pain on [...] Plan Glucose intolerance/obesity//possible osteoporosis: I do think gaining weight made prothesis situation worse as put more pressure on it. Would want to start Mun[place]o to loose it as A1C is elevated and BMI is 48. A. As patient's Ca intake is 500mg from food, MVI and and 3 Ca gummies ~750mg, PTH at good level, 24h urine ca also at good level. B. Patient also does have Vitamin D at goal, 30 ng/ml and above. C. Will order BMD by DXA now with TBS now, will be done 02/2023 D. As 25 Vit D, PTH is at normal range metaanalysis show benefit of all osteoporosis medications for loose prothesis but particularly anabolic agents like Tymlos [place] daily, I gave 1 month sample to day and will see if it gets filled. E. I will schedule patient for outpatient visit at 8 weeks. Thank you for allowing me to participate in the care of this very pleasant patient. I spend 40min in chart review, labs, discussing her weight, periprosthetic loosening of bone, writing my note. Sincerely, Gopal Rivero MD Professor of Endocrinology documented in this encounter Miscellaneous Notes * Addendum Note - Gopal Rivero MD - 01/20/2023 10:30 AM EDTAddended by: GOPAL RIVERO on: 01/20/2023 12:28 PM Modules accepted: Level of Service documented in this encounter Plan of Treatment Upcoming Encounters Date Type Department Care Team (Latest Contact Info) Description 04/06/2024 11:30 AM EST Hospital Encounter [place]patient [place] [address] Cadence Eric MD [facility] [place] [address] 04/06/2024 11:30 AM EST - 04/06/2024 12:50 PM EST Surgery [place]patient [place] [address] Cadence Eric MD [facility] [place] [address] IMPLANT NEUROSTIMULATOR ELECTRODES, PERIPHERAL NERVE (WRVU 5.76) 04/14/2024 2:30 PM EST Office Visit [place] [address] Cadence Eric MD [facility] [place] [address] Scheduled Procedures Name Priority Associated Diagnoses Date/Ti me IMPLANT NEUROSTIMULATOR ELECTRODES, PERIPHERAL NERVE (WRVU 5.76) Yes Saphenous neuralgia, right 04/06/2024 11:30 AM EST IMPLANT NEUROSTIMULATOR ELECTRODES, PERIPHERAL NERVE (WRVU 5.76) Saphenous neuralgia, 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
--- OUTSIDE RECORDS SUMMARY | 2024-04-05 16:23 | XMS_ITS | Encounter Summary ---
Author Organization [facility] [place] [address] Care Team Providers Care Medical Reviewer Name Role Phone Ja Ordaz MD Primary Care Provider [phone] Reason for Visit * Reason Onset Date Comments Prior Authorization 03/20/2023 Encounter Details Date Type Department Care Team ([facility] Contact Info) Description 03/20/2023 [place] [address] Rita Ciu Prior Authorization Social History Tobacco Use Types [...] * Telephone Encounter - Rita Cui - 03/20/2023 7:06 AM EST Per provider: Lets hold off, I want to see if Tymlos will get approved instead of Evenity * Telephone Encounter - Rita Cui - 03/20/2023 7:05 AM EST Copied from CRM #[id number]. Topic: Specialty Dept CRMs - Generic Call >> Mar 19, 2023 3:07 PM Jodee Méndez wrote: Specialist: Dawson Omalley MD Relationship (if other than patient-full name): Danelle [employer] Reason for Call: Danelle is calling to state that they are still awaiting clinicals on this patient for the PA Evenity. Danelle stated that the PA will time out tomorrow. ( See encounter dated 01/20/23). Please fax # [phone] documented in this encounter Plan of Treatment Upcoming Encounters Date Type Department Care Team (Latest Contact Info) Description 04/06/2024 11:30 AM EST Hospital Encounter [place]patient [place] [address] Cadence Eric MD [facility] [place] [address] 04/06/2024 11:30 AM EST - 04/06/2024 12:50 PM EST Surgery [place]patient [place] [address] Cadence Eric MD [facility] [place] [address] IMPLANT NEUROSTIMULATOR ELECTRODES, PERIPHERAL NERVE (WRVU 5.76) 04/14/2024 2:30 PM EST Office Visit [place] [address] Cadence Eric MD [facility] [place] [address] Scheduled Procedures Name Priority Associated Diagnoses Date/Ti [...] filedocumented in this encounter Care Teams Medical Reviewer Relationship Specialty Start Date End Date Ja Ordaz MD [address] [place] [address] PCP - General Emergency Medicine 03/11/21 documented as of this encounter
--- OUTSIDE RECORDS SUMMARY | 2024-04-05 16:23 | XMS_ITS | Encounter Summary ---
Author Organization [facility] Address [facility] [place] [address] Care Team Providers Care Title Checker Name Role Phone Ja Ordaz MD Primary Care Provider [phone] Reason for Referral * Consultation (Routine) - Closed Specialty Diagnoses / Procedures Referred By Cindy wooten Referred To Contact Endocrinology Diagnoses Left leg pain Wayne Sanchez MD [facility] [place] [address] Dawson Omalley MD [facility] [place] [address] Referral ID Status Reason Start Date Expiration Date V isits Requested Visits Authorized [id number] Closed Consult, Test & Treat 10/29/2022 10/29/2023 1 1 Reason for Visit * Reason Comments Follow-up BONE SCAN RESULTS Encounter Details Date Type Department Care Team (Late st Contact Info) Description 10/29/2022 1:40 PM EDT Office [place] [phone] Clinic, Dr Sanchez Team None Left leg pain (Primary Dx) Social History Tobacco Use Types Packs/Day Years [...] - Inhaled Oxygen Concentration - - Weight 103.4 kg (228 lb) 10/29/2022 1:48 PM EDT Height 152.4 cm (5') 10/29/2022 1:48 PM EDT Body Mass Index 44.53 10/29/2022 1:48 PM EDT documented in this encounter Progress Notes * Wayne Sanchez MD - 10/29/2022 1:40 PM EDT Patient ID: Etelvina Cuadra Chief Complaint Patient presents with Follow-up BONE SCAN RESULTS HPI pain in the left delacruz. See previous notes. This is very painful for her and limiting her. She feels desperate at this point. Patient Active Problem List Diagnosis Code Postlaminectomy [...] Rofecoxib Tetracyclines Itching Wool Itching and Rash Current Outpatient Medications on File Prior to Visit Medication Sig Dispense Refill oxyCODONE (Roxicodone) 15 mg tablet Take 15 mg by mouth 3 times daily as needed for Pain. estradioL (ESTRACE) 0.01 % (0.1 mg/gram) Cream INSERT 1 APPLICATOFUL INTO THE VAGINA ONCE A DAY FOR2 WEEKS THEN DECREASE OVER 2 WEEKS TO TWICE WEEKLY polyethylene glycol 3350 (MIRALAX ORAL) Take by [...] daily. 2 gummies daily=4MG NARCAN 4 mg/actuation [place], Non-Aerosol instill 1 spray in 1 NOSTRIL if needed for opioid overdosemay re... (REFER TO PRESCRIPTION NOTES). 0 multivitamin with minerals Tablet Take 1 tablet by mouth daily. morphine sulfate/D5W (MORPHINE IN D5W) 1 mg/mL Prefilled Pump [place] Inject as directed. Has intrathecal pump with continuous rate and Has 5 preset prn boluses pt may give herself EPINEPHrine 0.3 mg/0.3 mL Auto-Injector epinephrine HCl/PF (EPINEPHrine, pf,) 1 mg/mL (1:1,000) Solution Inject as directed. No current facility-administered medications on file prior to visit. Review of Systems Objective Height 152.4 cm (5'), weight 103.4 kg (228 lb). Physical Exam I have made the following determinations: Pain at the level of the Post Op Left Knee Exam: Knee ROM: Extension:0 Flexion: 90 Alignment: 0-4 degrees Neutral Stability: A/P Translation <5mm Varus (lateral stability) <5mm Valgus (medial stability) <5mm Extension La degrees or less [place] Tracking: Normal Pulses Palpable: Left PT:Yes Left DP:Yes Motor/Sensory: Distal Motor: Normal Distal Sensory: Normal Quadriceps Strength:5 Assessment & Plan: Pain LEFT TIBIA after revision Long Aircast stirrup for her tibial pain E stim for her stress response from the tibial stem. Vit D Referral to Endocrine for bone healthShahram documented in this encounter Plan of Treatment Upcoming Encounters Date Type Department Care Team (Latest Contact Info) Description 04/06/2024 11:30 AM EST Hospital Encounter Outpatient [place] [address] Cadence Eric MD [facility] [place] [address] 04/06/2024 11:30 AM EST - 04/06/2024 12:50 PM EST Surgery Outpatient [place] [address] Cadence Eric MD [facility] [place] [address] IMPLANT NEUROSTIMULATOR ELECTRODES, PERIPHERAL NERVE (WRVU 5.76) 04/14/2024 2:30 PM EST Office Visit [facility] [place] [address] Cadence Eric MD 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 Neuropathic pain COLONOSCOPY,SCREENING (WRVU 3.26) Health maintenance examination-screening colo Scheduled Referrals Name Type Priority Associated Diagnoses Order Schedule Referral to Endocrinology Outpatient Referral Routine Left leg pain Ordered: 10/29/2022 documented as of this encounter Visit Diagnoses Diagnosis Left leg pain- Primary Pain in limb Saphenous neuralgia, right documented in this encounter Care Teams Title Checker Relationship Specialty Start Date End Date Ja Ordaz MD [address] [place] [address] PCP - General Emergency Medicine 03/11/21 documented as of this encounter
--- OUTSIDE RECORDS SUMMARY | 2024-04-05 16:23 | XMS_ITS | Encounter Summary ---
Author Organization [facility] Address [facility] [place] [address] Care Team Providers Care Novelty Twister Tender Name Role Phone Ja Ordaz MD Primary Care Provider [phone] Encounter Details Date Type Department Care Team (Latest Contact Info) Description 01/14/2023 Travel Social History Tobacco Use Types Packs/Day [...] AM EST Hospital Encounter [facility] [place] [address] Cadence Eric MD [facility] [place] [address] 04/06/2024 11:30 AM EST - 04/06/2024 12:50 PM EST Surgery [facility] [place] [phone] Cadence Eric MD [facility] [place] [address] IMPLANT NEUROSTIMULATOR ELECTRODES, PERIPHERAL NERVE (WRVU 5.76) 04/14/2024 2:30 PM EST Office Visit [facility] [place] [address] Cadence Eric MD [facility] [place] [address] Scheduled Procedures Name Priority Associated Diagnoses Date/Ti [...] on filedocumented in this encounter Care Teams Novelty Twister Tender Relationship Specialty Start Date End Date Ja Ordaz MD [address] [place] [id number] PCP - General Emergency Medicine 03/11/21 documented as of this encounter
--- OUTSIDE RECORDS SUMMARY | 2024-04-05 16:23 | XMS_ITS | Encounter Summary ---
Author Organization [place] [address] Care Team Providers Care Application Specialist Name Role Phone Ja Ordaz MD Primary Care Provider [phone] Reason for Visit * Reason Onset Date Comments Other 11/13/2022 Encounter Details Date Type Department Care Team (Late st Contact Info) Description 11/13/2022 Telephone [place] [phone] Clinic, Dr Sanchez Team None Other Social History Tobacco Use Types Packs/Day Years [...] encounter Miscellaneous Notes * Telephone Encounter - Jennifer Nieves - 11/14/2022 10:53 AM EDT All information sent to [employer] bone simulator rep, they will get approval and contact he patient directly to schedule setup,etc. * Telephone Encounter - Bishop Gregory - 11/13/2022 1:41 PM EDT Order for [employer] Bone Stim placed. Returned call to Etelvina Hernandez and explained that we needed to get insurance approval for the bone stim, after which point we would let her know. She will receive a call from an [employer] rep to get hersetup with the bone stim. She reports feeling frustrated, left out, and neglected by [facility] because it took 10 months to find her issue. I apologized for the lack of communication, and acknowledged her concerns. She is thankful for the call. She would like to schedule with Endrocrinology, and I directed her to call their office to activatethe referral Dr. Sanchez placed for her. Additionally, I sent a message to their team asking if theycould schedule the patient. All questions answered. She knows to call back if she has further questions/concerns. * Telephone Encounter - Sara Duran - 11/13/2022 1:20 PM EDTSummary: PATIENT QUESTIONS Name of person calling: Patient/ Etelvina Have you had Surgery? No If so when? Who was the Surgeon? What is the question: Patient states she feels neglected and is asking to speak with a nurse today.Patient states she would like to have a bone stimulator and haven't received a call about it. Patient also states she hasn't heard from the bone people regarding an appointment. Offered to transferher to Endocrinology to speak with them about the referral they have for her but patient declined. P atient states she wants to speak with someone on Dr. Jay's team first. Best number to reach the caller: [phone] documented in this encounter Plan of Treatment Upcoming Encounters Date Type Department Care Team (Latest Contact Info) Description 04/06/2024 11:30 AM EST Hospital Encounter [place] [address] Cadence Eric MD [facility] [address] 04/06/2024 11:30 AM EST - 04/06/2024 12:50 PM EST Surgery [place] [place] [address] Cadence Eric MD [facility] [place] [address] IMPLANT NEUROSTIMULATOR ELECTRODES, PERIPHERAL NERVE (WRVU 5.76) 04/14/2024 2:30 PM EST Office Visit [place] [address] Cadence Eric MD [facility] [address] Scheduled Procedures Name Priority Associated Diagnoses Date/Ti [...] on filedocumented in this encounter Care Teams Application Specialist Relationship Specialty Start Date End Date Ja Ordaz MD [address] [place] [address] PCP - General Emergency Medicine 03/11/21 documented as of this encounter
--- OUTSIDE RECORDS SUMMARY | 2024-04-05 16:24 | XMS_ITS | Encounter Summary ---
Author Organization [facility] Address [facility] [place] [address] Care Team Providers Care Conference Service Coordinator Name Role Phone Ja Ordaz MD Primary Care Provider [phone] Encounter Details Date Type Department Care Team (Latest Contact Info) Description 08/20/2022 Travel Social History Tobacco Use Types Packs/Day [...] AM EST Hospital Encounter Outpatient [place] [address] Cadence Eric MD [facility] [place] [address] 04/06/2024 11:30 AM EST - 04/06/2024 12:50 PM EST Surgery [facility] [place] [phone] Cadence Eric MD [facility] [place] [address] IMPLANT NEUROSTIMULATOR ELECTRODES, PERIPHERAL NERVE (WRVU 5.76) 04/14/2024 2:30 PM EST Office Visit [facility] [place] [address] Cadence Eric MD [facility] [place] [address] Scheduled Procedures Name Priority Associated Diagnoses Date/Ti [...] on filedocumented in this encounter Care Teams Conference Service Coordinator Relationship Specialty Start Date End Date Ja Ordaz MD [address] [place] [address] PCP - General Emergency Medicine 03/11/21 documented as of this encounter
--- OUTSIDE RECORDS SUMMARY | 2024-04-05 16:24 | XMS_ITS | Encounter Summary ---
Author Organization [facility] Address [facility] [place] [address] Care Team Providers Care Embalmer/Funeral Director Name Role Phone Ja Ordaz MD Primary Care Provider [phone] Encounter Details Date Type Department Care Team (Latest Contact Info) Description 10/07/2022 Travel Social History Tobacco Use Types Packs/Day [...] AM EST Hospital Encounter [place] [address] Cadence Eric MD [facility] [address] 04/06/2024 11:30 AM EST - 04/06/2024 12:50 PM EST Surgery [place] [phone] Cadence Eric MD [facility] [place] [address] IMPLANT NEUROSTIMULATOR ELECTRODES, PERIPHERAL NERVE (WRVU 5.76) 04/14/2024 2:30 PM EST Office Visit [facility] [place] [address] Cadence Eric MD [facility] [address] Scheduled Procedures Name Priority Associated Diagnoses Date/Ti [...] on filedocumented in this encounter Care Teams Embalmer/Funeral Director Relationship Specialty Start Date End Date Ja Ordaz MD [address] [place] [address] PCP - General Emergency Medicine 03/11/21 documented as of this encounter
--- OUTSIDE RECORDS SUMMARY | 2024-04-05 16:24 | XMS_ITS | Encounter Summary ---
Author Organization [facility] [place] [address] Care Team Providers Care Bill Checker Name Role Phone Ja Ordaz MD Primary Care Provider [phone] Encounter Details Date Type Department Care Team (Late st Contact Info) Description 05/28/2022 Telephone [place] [address] Leanna Dent Social History Tobacco Use Types [...] * Telephone Encounter - Leanna Dent - 05/28/2022 11:56 AM EST Patient called today to make her next IT pump refill appointment. We scheduled for 06/27/22 with . I have held time and sent an in-basket to Dr. Eric for an order to be placed, as thisneeds to be done under [facility] documented in this encounter Plan of Treatment Upcoming Encounters Date Type Department Care Team (Latest Contact Info) Description 04/06/2024 11:30 AM EST Hospital Encounter [place] [address] Cadence Eric MD [facility] [place] [address] 04/06/2024 11:30 AM EST - 04/06/2024 12:50 PM EST Surgery [place] [address] Cadence Eric MD [facility] [place] [address] IMPLANT NEUROSTIMULATOR ELECTRODES, PERIPHERAL NERVE (WRVU 5.76) 04/14/2024 2:30 PM EST Office Visit [place] [address] Cadence Eric MD [facility] [place] [address] Scheduled Procedures Name Priority Associated Diagnoses Date/Ti [...] on filedocumented in this encounter Care Teams Bill Checker Relationship Specialty Start Date End Date Ja Ordaz MD [address] [place] [address] PCP - General Emergency Medicine 03/11/21 documented as of this encounter
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
--- OUTSIDE RECORDS SUMMARY | 2024-04-05 16:24 | XMS_ITS | Encounter Summary ---
Author Organization [facility] Address [facility] [place] [address] Care Team Providers Care Chief Maintenance Supervisor Name Role Phone Ja Ordaz MD Primary Care Provider [phone] Encounter Details Date Type Department Care Team (Late st Contact Info) Description 11/08/2021 External Results [facility] [place] [phone] Karl Becker MD [facility] [place] [address] Social History Tobacco Use Types Packs/Day Years [...] AM EST Hospital Encounter Outpatient [place] [phone] Cadence Eric MD [facility] [place] [address] 04/06/2024 11:30 AM EST - 04/06/2024 12:50 PM EST Surgery [facility] [place] [address] Cadence Eric MD [facility] [place] [address] IMPLANT NEUROSTIMULATOR ELECTRODES, PERIPHERAL NERVE (WRVU 5.76) 04/14/2024 2:30 PM EST Office Visit [facility] [place] [address] Cadence Eric MD [facility] [place] [address] Scheduled Procedures Name Priority Associated Diagnoses Date/Ti [...] Associated Diagnosis Comments INTRATHECAL PUMP REFILL Routine 11/06/2021 documented in this encounter Results * INTRATHECAL PUMP REFILL (11/06/2021) Karl Becker MD PROCEDURE/MINOR SURG ICAL ORDERABLES documented in this encounter Visit Diagnoses Not on filedocumented in this encounter Care Teams Chief Maintenance Supervisor Relationship Specialty Start Date End Date Ja Ordaz MD [address] [place] [address] PCP - General Emergency Medicine 03/11/21 documented as of this encounter
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
--- OUTSIDE RECORDS SUMMARY | 2024-04-05 16:24 | XMS_ITS | Encounter Summary ---
Author Organization [facility] Address [facility] [place] [address] Care Team Providers Care Cooling Room Attendant Name Role Phone Ja Ordaz MD Primary Care Provider [phone] Reason for Visit * Physical Therapy (Routine) - Closed Specialty Diagnoses / Procedures Referred By Cindy wooten Referred To Contact Physical Therapy Diagnoses Status post revision of total replacement of left knee Izzy Crane PA [facility] [place] [address] [address] [place] [address] Referral ID Status Reason Start Date Expiration Date V isits Requested Visits Authorized [id number] Closed Evaluate and Treat 08/27/2022 08/27/2023 100 100 Encounter Details Date Type Department Care Team (Late st Contact Info) Description 10/22/2022 3:15 PM EDT Office Visit Physical Therapy at [facility] [address] [place] [phone] Elise Peres, PT [facility] PHYSICAL MEDICINE & [place] [address] Status post revision of total replacement of [...] as of this encounter Miscellaneous Notes * Treatment - Therapy - Elise Peres PT - 10/22/2022 3:15 PM EDT Images from the original note were not included. Physical Therapy Treatment Note Date of Exam/First Treatment: 10/22/2022 Referring Provider: JENNY Streeter [facility] [place] [address] Diagnosis and Pertinent Co-Morbidities affecting Plan of Care: ICD-10-CM 1. 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 She has been trying to walk down to3 trailers away and this is okay. She gets her bone scan tomorrow Objective CPT Charges: Therex: Strength/Endurance/ROM (51489) 45 min We talked about slowly increasing walking but that weedwacking that length of time was painful because she did not have the endurance for this activity. We need to build up strength and endurance Theraball knee slides x15 Bridges as able but broke this up to glute squeeze and quad set with Theraball Calf stretch Seated hamstring stretch Seated hip abd with green band x10 Pain science education and graded exposure and slow loading of activity Current HEP: Assessment Patient tends to over do and then has increased pain. We discussed cutting jobs into smaller piecesand the importance of stretching before and after activity Etelvina Cuadra will continue to benefit from skilled PT services. Plan Reassess after MD visit and bone scan Total treatment time: 45 minutes Total timed code treatment: 45 minutes Pt understands and agrees with physical therapy plan of care. ELISE PERES PT documented in this encounter Plan of Treatment Upcoming Encounters Date Type Department Care Team (Latest Contact Info) Description 04/06/2024 11:30 AM EST Hospital Encounter [place] [address] Cadence Eric MD [facility] [place] [address] 04/06/2024 11:30 AM EST - 04/06/2024 12:50 PM EST Surgery [place] [address] Cadence Eric MD [facility] [place] [address] IMPLANT NEUROSTIMULATOR ELECTRODES, PERIPHERAL NERVE (WRVU 5.76) 04/14/2024 2:30 PM EST Office Visit [place] [address] Cadence Eric MD [facility] [place] [address] Scheduled Procedures Name Priority Associated Diagnoses Date/Ti [...] Referral to Physical Therapy Outpatient Referral Routine Status post revision of total replacement of left knee Ordered: 08/27/2022 documented as of this encounter Visit Diagnoses Diagnosis 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
--- OUTSIDE RECORDS SUMMARY | 2024-04-05 16:24 | XMS_ITS | Encounter Summary ---
Author Organization [facility]ly [facility] Address [facility] [place] [address] Care Team Providers Care Project Engineer Name Role Phone Ja Ordaz MD Primary Care Provider [phone] Encounter Details Date Type Department Care Team (Latest Contact Info) Description 03/12/2022 Travel Social History Tobacco Use Types Packs/Day [...] AM EST Hospital Encounter Outpatient [place] [address] Cadence Eric MD [facility] [place] [address] 04/06/2024 11:30 AM EST - 04/06/2024 12:50 PM EST Surgery [place]patient [place] [phone] Cadence Eric MD [facility] [place] [address] IMPLANT NEUROSTIMULATOR ELECTRODES, PERIPHERAL NERVE (WRVU 5.76) 04/14/2024 2:30 PM EST Office Visit [place] [address] Cadence Eric MD [facility] [place] [address] Scheduled Procedures Name Priority Associated Diagnoses Date/Ti [...] on filedocumented in this encounter Care Teams Project Engineer Relationship Specialty Start Date End Date Ja Ordaz MD [address] [place] [address] PCP - General Emergency Medicine 03/11/21 documented as of this encounter
--- OUTSIDE RECORDS SUMMARY | 2024-04-05 16:24 | XMS_ITS | Encounter Summary ---
Author Organization [facility] Address [facility] [place]lyssa [place] [address] Care Team Providers Care Talent Acquisition Lead Name Role Phone Ja Ordaz MD Primary Care Provider [phone] Encounter Details Date Type Department Care Team (Latest Contact Info) Description 02/07/2022 12:42 PM EDT - 02/07/2022 11:59 PM EDT Hospital Encounter XRay at [address] [place] [address] Status post revision of total knee, left Discharge Disposition: Home Social History Tobacco [...] daily. 2 gummies daily=4MG NARCAN 4 mg/actuation [place], Non-Aerosol instill 1 spray in 1 NOSTRIL if needed for opioid overdose may re... (REFER TO PRESCRIPTION NOTES). 0 12/08/2018 multivitamin with minerals Tablet Take 1 tablet by mouth daily. morphine sulfate/D5W (MORPHINE IN D5W) 1 mg/mL Prefilled Pump Lutsen Inject as directed. Has intrathecal pump with continuous rate and Has 5 preset prn boluses pt may give herself aspirin EC 81 mg Tablet, Delayed Release (E.C.) Take 81 mg by mouth daily. 09/04/2022 oxyCODONE (Roxicodone) 15 mg Tablet Take 15 mg by mouth every 4 hours as needed for Pain. 08/27/2022 HYDROmorphone (Dilaudid) 4 mg TabletIndications:S/P TKR (total knee replacement), left Patient to take one or two tablets every 6 hours as needed for acute pain. 36 tablet 09/26/2021 03/12/2022 tiZANidine (Zanaflex) 2 mg TabletIndications:S/P TKR (total knee replacement), left Take 1 tablet by mouth 3 times daily as needed. 30 tablet 09/23/2021 09/04/2022 acetaminophen (Tylenol) 500 mg Tablet Take 2 tablets by mouth every 8 hours. 0 09/14/2021 03/04/2024 Lidocaine (Salonpas, lidocaine,) 4 % Adhesive Patch, Medicated Apply 3 patches topically daily as needed. 09/14/2021 09/04/2022 naproxen (NAPROSYN) 500 mg Tablet Take 1 tablet by mouth 2 times daily. 84 tablet 09/14/2021 03/12/2022 gabapentin (Neurontin) 300 mg Capsule Take 1 capsule by mouth 3 times daily. 90 capsule 1 09/14/2021 03/12/2022 amoxicillin (AMOXIL) 500 mg TabletIndications:Prim eliseo osteoarthritis of left knee Take 4 tablets by mouth See Admin Instructions. Please take 2000mg of Amoxicillin 1 hour prior to Dental Procedure 20 tablet 09/03/2020 03/12/2022 furosemide (Lasix) 20 mg Tablet Take 1 tablet by mouth daily as needed. 30 tablet 2 07/04/2020 09/04/2022 senna-docusate (Pericolace) 8.6-50 mg Tablet Take 1 tablet by mouth daily. 04/01/2020 08/27/2022 documented as of this encounter Plan of Treatment Upcoming Encounters Date Type Department Care Team (Latest Contact Info) Description 04/06/2024 11:30 AM EST Hospital Encounter [place] [address] Cadence Eric MD [facility] [place] [address] 04/06/2024 11:30 AM EST - 04/06/2024 12:50 PM EST Surgery [place] [address] Cadence Eric MD [facility] [place] [address] IMPLANT NEUROSTIMULATOR ELECTRODES, PERIPHERAL NERVE (WRVU 5.76) 04/14/2024 2:30 PM EST Office Visit [place] [address] Cadence Eric MD [facility] [place] [address] Scheduled Procedures Name Priority Associated Diagnoses Date/Ti [...] XR KNEE AP & LAT LEFT Routine 02/07/2022 1:10 PM EDT Status post revision of total knee, left documented in this encounter Results * XR Knee 1-2 Views Left (Generic) (02/07/2022 1:10 PM EDT) Anatomical Region Laterality Modality Knee Left Digital Radiogra phy Impressions 02/07/2022 2:20 PM EDT Unchanged constrained left total knee arthroplasty. No complication. Thank you for letting us participate in the care of this patient. ??If you are a health care provider and have any questions regarding this report, please contact the number below. ??For patients who have questions please contact the health associate director career services that requested your imaging first. ? Electronically signed by: Johnna Silverio MD, [facility] ([phone]), at 02/07/2022 2:20 PM Narrative 02/07/2022 2:20 PM EDT EXAMINATION: XR KNEE 1-2 VIEWS LEFT (GENERIC) CLINICAL HISTORY: s/p L TKA revision -inreased pain TECHNIQUE: 2 views LEFT knee COMPARISON: 10/16/2021 FINDINGS: Constrained left total knee arthroplasty components are unchanged in position and orientation. Alignment is normal. There is no periprosthetic fracture or lucency. No knee joint effusion. Diffuse mild ventral soft tissue edema is present. No radiopaque foreign body. Procedure Note Johnna Silverio MD - 02/07/2022 EXAMINATION: XR KNEE 1-2 VIEWS LEFT (GENERIC) CLINICAL HISTORY: s/p L TKA revision -inreased pain TECHNIQUE: 2 views LEFT knee COMPARISON: 10/16/2021 FINDINGS: Constrained left total knee arthroplasty components are unchanged inposition and orientation. Alignment is normal. There is no periprosthetic fractureor lucency. No knee joint effusion. Diffuse mild ventral soft tissue edema is present.No radiopaque foreign body. IMPRESSION Unchanged constrained left total knee arthroplasty. No complication. Thank you for letting us participate in the care of this patient. If youare a health care provider and have any questions regarding this report,please contact the number below. For patients who have questions please contactthe health associate director career services that requested your imaging first. Electronically signed by: Johnna Silverio MD, [facility]([phone]), at 02/07/2022 2:20 PM Wayne Sanchez MD IMG DX ORDERABLES documented in this encounter Visit Diagnoses Diagnosis Status post revision of total knee, left Saphenous neuralgia, right documented in this encounter Care Teams Talent Acquisition Lead Relationship Specialty Start Date End Date Ja Ordaz MD [address] [place] [address] PCP - General Emergency Medicine 03/11/21 documented as of this encounter
--- OUTSIDE RECORDS SUMMARY | 2024-04-05 16:24 | XMS_ITS | Encounter Summary ---
Author Organization [facility] Address [facility] [place] [address] Care Team Providers Care Special Needs Babysitter Name Role Phone Ja Ordaz MD Primary Care Provider [phone] Reason for Visit * Physical Therapy (Routine) - Closed Specialty Diagnoses / Procedures Referred By Cindy wooten Referred To Contact Physical Therapy Diagnoses Status post revision of total replacement of left knee Izzy Crane PA [facility] [place] [address] [address] [place] [address] Referral ID Status Reason Start Date Expiration Date V isits Requested Visits Authorized [id number] Closed Evaluate and Treat 08/27/2022 08/27/2023 100 100 Encounter Details Date Type Department Care Team (Late st Contact Info) Description 10/07/2022 9:30 AM EDT Office Visit Physical Therapy at [facility] [address] [place] [id number] Elise De Leon, PT [facility] PHYSICAL MEDICINE & [place] [address] s/p revision L TKA 09/10/21 (Dr. Sanchez) [...] as of this encounter Miscellaneous Notes * Initial Evaluation - Elise De Leon, PT - 10/07/2022 9:30 AM EDT Physical Therapy Initial Examination Date of Exam/First Treatment: 10/07/2022 Referring Provider: Izzy Crane, JENNY [facility] [place] [address] Diagnosis and Pertinent Co-Morbidities affecting Plan of Care: ICD-10-CM 1. s/p revision L TKA 09/10/21 (Dr. Sanchez) Z96.652 Date of onset/surgery: 03/30 and 09/10/21 Procedure: LTKA and revision CURRENT HISTORY: History of current problem: Etelvina Cuadra is a 61 y.o. female referred to physical therapy for left knee pain since first TKR in03/30. She had extreme pain and bruising and very limited with walking and stairs and had no physical therapy at all after this surgery.She was in pain and had limited mobility and went back to orthopedics and had a revision 09/10/21 and had PT for 5months. She did ok but still could not do stairs with left leg due to pain and very sensitive to touch on her patella In fact if anyone touched her patella that would make her sore for 4 days. She has seen specialists in [place]. She has a bone scan scheduled to check TKA but CT scan looked good. She reports all winter she is very inactive being in [place] area of [place] Now she is at camp all summer and is more active. She has steps to get into trailerand is using cane but goal is to be able to walk around camp with her dogs. Her pain is in the shinand that is a burning pain and leg swells a lot. She also has muscle aches in entire left leg. She has been sleeping in recliner since 2019 Social History/Personal factors affecting plan of care: Varies depending on summer versus winter schedule Pain: Intensity: at best:6/10; at worst: 10/10 (within the last week) Location and described as: aching, stabbing, throbbing and tight band Radiating symptoms: complains of numbness and tingling Function: Prior level of function: was able to walk without cane when in rehab but has not been able to in months Current functional limitations: walking , stairs Social history: Occupation: disabled Work status: Work type: Associated occupational tasks: Current Exercise/hobbies: Imaging: (Summary of most recent radiology report only, please see eD-[facility] imaging for full report and imaging history.) Treatment to date has included: some PT Patient Goals: To be able to walk and do stairs CLINICAL FINDINGS: Observation: Trendelenburg (sp>sn): - Functional Squat Technique (or sit to stand): Difficult puts more weight through the right Gait Assessment: abducts leg and decrease push off on right Stair Negotiation: Ascend: cannot Descend: cannot Knee and Hip range of motion and strength: WNL unless noted. Right Left Knee flexion 95 4/5 extension -5 4-/5 Hip flexion 4/5 extension 4-/5 abduction 4-/5 internal rotation external rotation * Denotes reproduction of concordant sign Muscle Length Testing: Kayode: + Lenore: + Hamstring 90-90: + Palpation: Extreme tender at patella Some vasomotor symptoms present Special tests: Joint Line Tenderness Medial: NegativeLateral: Negative Tiago Test Anterior Drawer Test Posterior Drawer Test Varus Stress Test Valgus Stress Test Patellar Apprehension Test Thessaly Test Outcome Measure: 10/06/2022 12:59 PM The Lower Extremity Functional Scale (LEFS) 1. Any of your usual work, housework or school activities Extreme difficulty or unable to perform activity 2. Your usual hobbies, recreational or sporting activities. Quite a bit of difficulty 3. Getting into or out of the bath Moderate difficulty 4. Walking between rooms Quite a bit of difficulty 5. Putting on your shoes or socks Quite a bit of difficulty 6. Squatting Extreme difficulty or unable to perform activity 7. Lifting an object, like a bag of groceries from the floor Quite a bit of difficulty 8. Performing light activities around your home Moderate difficulty 9. Performing heavy activities around your home Extreme difficulty or unable to perform activity 10. Getting into or out of a car Moderate difficulty 11. Walking 2 blocks Extreme difficulty or unable to perform activity 12. Walking a mile Extreme difficulty or unable to perform activity 13. Going up or down 10 stairs (about 1 flight of stairs) Extreme difficulty or unable to perform activity 14. Standing for 1 hour Extreme difficulty or unable to perform activity 15. Sitting for 1 hour A little bit of difficulty 16. Running on even ground Extreme difficulty or unable to perform activity 17. Running on uneven ground Extreme difficulty or unable to perform activity 18. Making sharp turns while running fast Extreme difficulty or unable to perform activity 19. Hopping Extreme difficulty or unable to perform activity 20. Rolling over in bed Quite a bit of difficulty LEFS Score (Range 0-80) 14 LEFS % Functional Mobility 17.5 (Lower the score, greater the disability) Initial Treatment/Home Exercises: ?? Examination ?? Patient education regarding diagnosis and physical therapy plan of care ?? Instruction in a home exercise program No scans are attached to the encounter. Home Exercises were given to patient via [employer]: [x] Printed [] Emailed to [email or web address] [] Emailed to other email: [] Texted to [facility]. CLINICAL EVALUATION: Pt is a 61 y.o. female presenting with signs and symptoms consistent with [pain in left leg with weakness and altered gait causing overuse of left TA and decreased weightbearing on left causing weakness/ tightness Presents with a mod clinical presentation. Patients pertinent co morbidities/personal factors affecting plan of care are listed in the problem list. Pts functional limitations include walking , stairs, squatting. Pt scored a 17% on the LEFS indicating a decline in function secondary to hip pain. Cli nical decision making of moderate complexity using standardized patient assessment instrument and measurable assessment of functional outcome. Expect with skilled physical therapy interventions patient will be able to return to prior level of function. The patient's clinical presentation is evolving due to premorbid factors Clinical decision making of moderate complexity evaluation using standardized patient assessment instrument and measurable assessment of functional outcome. GOALS: Met Short Term Therapy Goals (2 weeks). Patient will ??? Pt will demonstrate indep with home exercise program to improve outcome Able to walk with improved gait Met Custodial Therapy Goals (6 weeks). Patient will ??? Pt will increase LEFS score to 50% demo an increase in functional mobility and to meet a clinicallymeaningful difference from initial evaluation score (MCID=8- 9 points). Able to walk around campground Able to go up stairs reciprocally PLAN: Frequency and duration: 1 x per week x 6 weeks Treatment: Manual Techniques, Soft Tissue Mobilization, Stretching, Joint Mobilization, TherapeuticExercise, Patient/Family Education, Body Mechanics, Posture, Home Exercise Program, Balance and Gait Training and Pain Science Education Total Treatment time: 45 minutes: Total Timed Code Treatment: 0 minutes The plan has been discussed with the patient and Etelvina Aponte Khalif has agreed with the planned treatment. documented in this encounter Plan of Treatment Upcoming Encounters Date Type Department Care Team (Latest Contact Info) Description 04/06/2024 11:30 AM EST Hospital Encounter [place] [address] Cadence Eric MD [facility] [place] [address] 04/06/2024 11:30 AM EST - 04/06/2024 12:50 PM EST Surgery [place] [address] Cadence Eric MD [facility] [place] [address] IMPLANT NEUROSTIMULATOR ELECTRODES, PERIPHERAL NERVE (WRVU 5.76) 04/14/2024 2:30 PM EST Office Visit [facility] [place] [address] Cadence Eric MD [facility] [place] [address] Scheduled Procedures Name Priority Associated Diagnoses Date/Ti [...] Procedure Name Priority Date/Time Associated Diagnosis Comments PT PLAN OF CARE CERT/RE-CERT Routine 10/07/2022 1:22 PM EDT s/p revision L TKA 09/10/21 (Dr. Sanchez) documented in this encounter Visit Diagnoses Diagnosis s/p revision L TKA 09/10/21 (Dr. Sanchez) Saphenous neuralgia, right documented in this encounter Care Teams Special Needs Babysitter Relationship Specialty Start Date End Date Ja Ordaz MD [address] [place] [id number] PCP - General Emergency Medicine 03/11/21 documented as of this encounter
--- OUTSIDE RECORDS SUMMARY | 2024-04-05 16:24 | XMS_ITS | Encounter Summary ---
Author Organization [facility] Address [facility] [place] [address] Care Team Providers Care Respiratory Care Practitioner Name Role Phone Ja Ordaz MD Primary Care Provider [phone] Reason for Referral * Diagnostic Test (Routine) - Closed Specialty Diagnoses / Procedures Referred By Contac t Referred To Contact Radiology Diagnoses Status post revision of total replacement of left knee Left leg pain Procedures CT Lower Extremity wo Contrast Left (Generic) Izzy Crane PA [facility] [place] [address] [facility] [place] [address] Referral ID Status Reason Start Date Expiration Date V isits Requested Visits Authorized [id number] Closed Specialty Service Requested 08/20/2022 02/20/2024 1 1 Reason for Visit * Diagnostic Test (Routine) - Closed Specialty Diagnoses / Procedures Referred By Contac t Referred To Contact Radiology Diagnoses Status post revision of total replacement of left knee Left leg pain Procedures CT Lower Extremity wo Contrast Left (Generic) Izzy Crane PA [facility] [place] [address] [facility] [place] [address] Referral ID Status Reason Start Date Expiration Date V isits Requested Visits Authorized [id number] Closed Specialty Service Requested 08/20/2022 02/20/2024 1 1 Encounter Details Date Type Department Care Team (Latest Contact Info) Description 08/27/2022 10:32 AM EDT - 08/27/2022 11:59 PM EDT Hospital Encounter CT Scan at [facility] [place] [address] Wayne Sanchez MD [facility] [place] [address] Status post revision of total replacement of left knee; Left leg pain Discharge Disposition: Home Social History Tobacco Use [...] Sig Dispensed Refills Start Date End Date EPINEPHrine 0.3 mg/0.3 mL Auto-Injector 05/26/2022 citalopram [...] daily. 2 gummies daily=4MG NARCAN 4 mg/actuation [place], Non-Aerosol instill 1 spray in 1 NOSTRIL if needed for opioid overdose may re... (REFER TO PRESCRIPTION NOTES). 0 12/08/2018 multivitamin with minerals Tablet Take 1 tablet by mouth daily. morphine sulfate/D5W (MORPHINE IN D5W) 1 mg/mL Prefilled Pump [place] Inject as directed. Has intrathecal pump with continuous rate and Has 5 preset prn boluses pt may give herself estradioL (ESTRACE) 0.01 % (0.1 mg/gram) Cream INSERT 1 APPLICATOFUL INTO THE VAGINA ONCE A DAY FOR 2 WEEKS THEN DECREASE OVER 2 WEEKS TO TWICE WEEKLY 06/02/2022 02/09/2023 polyethylene glycol 3350 (MIRALAX ORAL) Take by mouth. 2022 aspirin EC 81 mg Tablet, Delayed Release (E.C.) Take 81 mg by mouth daily. 09/04/2022 tiZANidine (Zanaflex) 2 mg TabletIndications:S/P TKR (total [...] as needed. 30 tablet 2 07/04/2020 09/04/2022 documented as of this encounter Plan of Treatment Upcoming Encounters Date Type Department Care Team (Latest Contact Info) Description 04/06/2024 11:30 AM [facility] Hospital Encounter [place] [place] [address] Cadence Eric MD [facility] [place] [address] 04/06/2024 11:30 AM EST - 04/06/2024 12:50 PM EST Surgery Outpatient [place] [address] Cadence Eric MD [facility] [place] [address] IMPLANT NEUROSTIMULATOR ELECTRODES, PERIPHERAL NERVE (WRVU 5.76) 04/14/2024 2:30 PM EST Office Visit [facility] at [facility] [place] [address] Cadence Eric MD [facility] [address] Scheduled Procedures Name Priority Associated Diagnoses Date/Ti [...] Name Priority Date/Time Associated Diagnosis Comments CT LOWER EXTREMITY WO CONTRAST LEFT Routine 08/27/2022 11:00 AM EDT Status post revision of total replacement of left knee Left leg pain documented in this encounter Results * CT Lower Extremity wo Contrast Left (Generic) (08/27/2022 11:00 AM EDT) Anatomical Region Laterality Modality Hip, Leg, Knee, Thigh, Ankle, Foot Left Computed Tomography Impressions 08/27/2022 10:35 PM EDT LEFT 1. ??Recently revised total knee arthroplasty redemonstrated. 2. ??No hardware complications. 3. ??No periprosthetic fracture or stress injury. Thank you for letting us participate in the care of this patient. ??If you are a health care provider and have any questions regarding this report, please contact the number below. ??For patients who have questions please contact the health child day care center worker that requested your imaging first. ? Electronically signed by: Yanni Crowder MD, [facility] ([phone]), at 08/27/2022 10:35 PM Narrative 08/27/2022 10:35 PM EDT EXAMINATION: CT LOWER EXTREMITY WO CONTRAST LEFT (GENERIC) CLINICAL HISTORY: Knee replacement, loosening suspected, s/p revision TKA with persistent delacruz pain, eval components, stress riser or fx of tibia entered by ordering service FINDINGS: EXAMINATION: CT LOWER EXTREMITY WO CONTRAST LEFT (GENERIC) CLINICAL HISTORY: Knee replacement, loosening suspected s/p revision TKA with persistent delacruz pain, eval components, stress riser or fx of tibia TECHNIQUE: 0.63 mm non-contrast axial CT images of the LEFT hip, knee and ankle were acquired using director of strategic sales protocol. Sagittal and coronal reformats were created. COMPARISON: Knee radiographs, August 20, 2022. FINDINGS: No acute fracture, periostitis or bone resorption. LEFT knee, axial and reformats: A revised constraint LEFT total knee arthroplasty is present. Alignment: Normal alignment of prosthesis. Complication: There is no loosening or fracture. Soft tissues: An anterior prepatellar scar is present. There is a moderate size knee effusion. Tibia-no fracture or periostitis. The suspected stress injury is not visualized. HIP, axial images only- Normal spacing and alignment. Tiny osteophytic lipping. Survey No soft tissue air, foreign body or well-circumscribed fluid collection or abscess detected. No enlarged lymph nodes. Spondylosis of lumbar spine with calcified and narrowed L5-S1 disc space. Ankle, axial images only No ankle effusion, fracture or displaced tendons. Achilles-tendinopathy represented by a thick tendon with increased AP diameter and loss of anterior concavity. There is diffuse subcutaneous edema. No soft tissue air or well-circumscribed fluid collection/abscess seen. Procedure Note Yanni Crowder MD - 08/27/2022 EXAMINATION: CT LOWER EXTREMITY WO CONTRAST LEFT (GENERIC) CLINICAL HISTORY: Knee replacement, loosening suspected, s/p revision TKAwith persistent delacruz pain, eval components, stress riser or fx of tibia enteredby ordering service FINDINGS: EXAMINATION: CT LOWER EXTREMITY WO CONTRAST LEFT (GENERIC) CLINICAL HISTORY: Knee replacement, loosening suspected s/p revision TKAwith persistent delacruz pain, eval components, stress riser or fx of tibia TECHNIQUE: 0.63 mm non-contrast axial CT images of the LEFT hip, knee andankle were acquired using director of strategic sales protocol. Sagittal and coronal reformatswere created. COMPARISON: Knee radiographs, August 20, 2022. FINDINGS: No acute fracture, periostitis or bone resorption. LEFT knee, axial and reformats: A revised constraint LEFT total knee arthroplasty is present. Alignment: Normal alignment of prosthesis. Complication: There is no loosening or fracture. Soft tissues: An anterior prepatellar scar is present. There is a moderate size kneeeffusion. Tibia-no fracture or periostitis. The suspected stress injury is notvisualized. HIP, axial images only- Normal spacing and alignment. Tiny osteophytic lipping. Survey No soft tissue air, foreign body or well-circumscribed fluid collectionor abscess detected. No enlarged lymph nodes. Spondylosis of lumbar spine with calcified andnarrowed L5-S1 disc space. Ankle, axial images only No ankle effusion, fracture or displaced tendons. Achilles-tendinopathy represented by a thick tendon with increased APdiameter and loss of anterior concavity. There is diffuse subcutaneous edema. Nosoft tissue air or well-circumscribed fluid collection/abscess seen. IMPRESSION LEFT 1. Recently revised total knee arthroplasty redemonstrated. 2. No hardware complications. 3. No periprosthetic fracture or stress injury. Thank you for letting us participate in the care of this patient. If youare a health care provider and have any questions regarding this report,please contact the number below. For patients who have questions please contactthe health child day care center worker that requested your imaging first. Electronically signed by: Yanni Crowder MD, [facility]([phone]), at 08/27/2022 10:35 PM Wayne Sanchez MD IMG CT ORDERABLES documented in this encounter Visit Diagnoses Diagnosis Status post revision of total replacement of left knee Left leg pain Pain in limb Saphenous neuralgia, right documented in this encounter Care Teams Respiratory Care Practitioner Relationship Specialty Start Date End Date Ja Ordaz MD [address] [place] [id number] PCP - General Emergency Medicine 03/11/21 documented as of this encounter
--- OUTSIDE RECORDS SUMMARY | 2024-04-05 16:24 | XMS_ITS | Encounter Summary ---
Author Organization [facility] Address [facility] [place] [address] Care Team Providers Care Automation Software Engineer Name Role Phone Ja Ordaz MD Primary Care Provider [phone] Reason for Referral * Diagnostic Test (Routine) - Closed Specialty Diagnoses / Procedures Referred By Contac t Referred To Contact Radiology Diagnoses Status post revision of total replacement of left knee Procedures NM Bone Scan 3 Phase Rosa MariaIzzy mcclure PA [facility] [place] [address] [place] [address] Referral ID Status Reason Start Date Expiration Date V isits Requested Visits Authorized [id number] Closed Specialty Service Requested 08/27/2022 02/27/2024 1 1 * Physical Therapy (Routine) - Closed Specialty Diagnoses / Procedures Referred By Conttom t Referred To Contact Physical Therapy Diagnoses Status post revision of total replacement of left knee Izzy Crane PA [facility] [place] [address] [facility] [address] [place] [address] Referral ID Status Reason Start Date Expiration Date V isits Requested Visits Authorized [id number] Closed Evaluate and Treat 08/27/2022 08/27/2023 100 100 Reason for Visit * Reason Comments Follow-up CT SCAN RESULTS for the left knee Encounter Details Date Type Department Care Team (Late st Contact Info) Description 08/27/2022 1:20 PM EDT Office [place] [address] Clinic, Dr Sanchez Team None Status post revision of total replacement of [...] - Inhaled Oxygen Concentration - - Weight 112.5 kg (248 lb) 08/27/2022 1:07 PM EDT weighed Height - - Body Mass Index 48.43 08/20/2022 11:23 AM EDT documented in this encounter Progress Notes * Rosa Maria, JENNY Sanchez - 08/27/2022 1:20 PM EDT Arthroplasty/Orthopaedic History: 1. Right medial unicompartmental knee replacement (likely cemented mobile beraing [place]) [facility] 2011 2. Left TKA 03/29/2020 (Dr. Jacobson) 3. 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 Sanchez) HPI: Etelvina Cuadra is a very pleasant 61 y.o. year-old female and is now nearly 1 year post left total knee revision. She reports that she is not doing well. She continues to struggle with severe painat the tibia and anterior delacruz. Feels that she is moving something there or that the implant is irritating the bone. Notes swelling to the knee, delacruz and ankle. No systemic symptoms. Remains on increased doses of oxycodone. This is not helping pain. She sought second opinion in [place]. Reports thatthis was not helpful. She reports that she is at the point where she cannot walk. Feels that she islosing muscle and gaining fat. Becoming deconditioned. At last visit we discussed CT to evaluate for occult fracture, tibial component complication. Presents today to discuss ROS: Denies: fever, chills, night sweats, nausea, or vomiting Wt 112.5 kg (248 lb) Comment: weighed BMI 48.43 kg/m?? Physical Exam: Well-appearing female in no [...] Normal Distal Sensory: Normal Quadriceps Strength: 5 Exquisitely TTP over anterior compartment, pes bursa. Significant overlying skin hypersensitivity with inability to tolerate light touch. X-RAYS: personally reviewed. Stable implants without signs of failure. CT personally reviewed from hip to ankle. It reveals well placed components without evidence of failure. No fracture or bony reaction at tibia. Questionnaire Responses: 08/27/2022 12:17 PM [facility] Surgical Postop Visit PROMIS-10 General Health Good PROMIS-10 Quality of Life Poor PROMIS-10 Physical Health Fair PROMIS-10 Mental Health Excellent PROMIS-10 Social Activity Very Good PROMIS-10 Everyday Activities A little PROMIS-10 Pain 7 PROMIS-10 Fatigue None PROMIS-10 Social Roles Fair PROMIS-10 Anxious or Depressed Never PROMIS PHYSICAL HEALTH SCORE 37.4 PROMIS MENTAL HEALTH SCORE 50.8 Problems with surgical incision/wound after surgery Yes Problems with incision Redness Swelling Prescribed antibiotics Yes Caregiver after your surgical incision problem Relative/partner/friend Gone to ER since knee surgery No Additional surgery on same body part No TKA Grade 0 Pain in other KNEE Moderate Back pain at this moment Moderate Satisfaction with Treatment Somewhat satisfied Choose Same Treatment Again Definitely no 08/27/2022 12:09 PM [facility] Response KOOS JR Scores 36.93 08/27/2022 12:09 PM Spine [facility] Response KOOS JR Scores 36.93 ASSESSMENT/PLAN: Ms. Cuadra is a 61 y.o. 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 Reviewed exam and imaging. Discussed that CT is reassuring against any implant or bony complication. She still worries that something is wrong. Discussed the one remaining test would be a bone scan to evaluate for a stress response in the delacruz. Knee joint may show increased uptake as she is not a year out. She would like to complete this test. I had a long discussion with her regarding additional potential causes of her pain. She is TTP overpes and anterior compartment. We discussed her chronic pain and how that can affect things. We alsodiscussed the fact that she has not been doing PT for a while and may have developed some hypersensitivity. She understands. I again recommend pain science focus PT with K[facility] at [facility]. This referral was placed. RTC vs TOV after bone scan. Signed: JENNY Streeter documented in this encounter Plan of Treatment Upcoming Encounters Date Type Department Care Team (Latest Contact Info) Description 04/06/2024 11:30 AM EST Hospital Encounter [place] [address] [facility] [address] 04/06/2024 11:30 AM EST - 04/06/2024 12:50 PM EST Surgery [place] [address] [facility] [place] [address] IMPLANT NEUROSTIMULATOR ELECTRODES, PERIPHERAL NERVE (WRVU 5.76) 04/14/2024 2:30 PM EST Office Visit [place] [address] [facility] [place] [address] Scheduled Procedures Name Priority Associated Diagnoses Date/Ti [...] Ordered: 08/27/2022 documented as of this encounter Results * NM Bone Scan [...] have questions please contact the health career transition specialist that requested your imaging first. ? Electronically signed by: Dk Castillo MD, [facility] ([phone]), at 10/23/2022 2:52 PM Narrative 10/23/2022 2:52 [...] who have questions please contactthe health career transition specialist that requested your imaging first. 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
--- OUTSIDE RECORDS SUMMARY | 2024-04-05 16:24 | XMS_ITS | Encounter Summary ---
Author Organization [facility] [place] [place] [address] Care Team Providers Care Application Support Developer Name Role Phone Ja Ordaz MD Primary Care Provider [phone] Reason for Referral * Diagnostic Test (Routine) - Closed Specialty Diagnoses / Procedures Referred By Cindy wooten Referred To Contact Radiology Diagnoses Status post revision of total replacement of left knee Left leg pain Procedures CT Lower Extremity wo Contrast Left (Generic) Rosa Maria, JENNY Sanchez [facility] [place] [address] [facility] [place] [address] Referral ID Status Reason Start Date Expiration Date V isits Requested Visits Authorized [id number] Closed Specialty Service Requested 08/20/2022 02/20/2024 1 1 Reason for Visit * Reason Comments Follow-up L TKA REVISION 2 Encounter Details Date Type Department Care Team (Late st Contact Info) Description 08/20/2022 11:30 AM EDT [place] [address] Rosa Maria, JENNY Sanchez [facility] [place] [address] Status post revision of total replacement of left knee; Left leg pain Social History Tobacco Use Types Packs/Day [...] - Inhaled Oxygen Concentration - - Weight 108 kg (238 lb) 08/20/2022 11:23 AM EDT Height 152.4 cm (5') 08/20/2022 11:23 AM EDT Body Mass Index 46.48 08/20/2022 11:23 AM EDT documented in this encounter Progress Notes * Rosa Maria, JENNY Sanchez - 08/20/2022 11:30 AM EDT Arthroplasty/Orthopaedic History: 1. Right medial unicompartmental knee replacement (likely cemented mobile beraing [place]) [facility] 2011 2. Left TKA 03/29/2020 (Dr. Jacobson) [...] helping pain. She sought second opinion in [place]. Reports thatthis was not helpful. She reports that she is at the point where she cannot walk. Feels that she islosing muscle and gaining fat. Becoming deconditioned. ROS: Denies: fever, chills, night sweats, nausea, or vomiting Ht 152.4 cm (5') Wt 108 kg (238 lb) BMI 46.48 kg/m?? Physical Exam: Well-appearing female in no [...] reviewed. Stable implants without signs of failure. Questionnaire Responses: 07/10/2021 10:55 AM [facility] Surgical Postop Visit PROMIS-10 General Health Good PROMIS-10 Quality of Life Fair PROMIS-10 Physical Health Fair PROMIS-10 Mental Health Excellent PROMIS-10 Social Activity Excellent PROMIS-10 Everyday Activities A little PROMIS-10 Pain 10 - Worst Imaginable Pain PROMIS-10 Fatigue Mild PROMIS-10 Social Roles Fair PROMIS-10 Anxious or Depressed Rarely PROMIS PHYSICAL HEALTH SCORE 32.4 PROMIS MENTAL HEALTH SCORE 53.3 Satisfaction with Treatment Dissatisfied Choose Same Treatment Again Completely uncertain 06/05/2021 1:32 PM Orthope[facility]ics [facility] Response KOOS JR Scores 15.94 06/05/2021 1:32 PM [facility] Response KOOS JR Scores 15.94 ASSESSMENT/PLAN: Ms. Cuadra is a 61 y.o. 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 Reviewed exam and imaging. No obvious implant complication on x-ray. Recommend that she continue toweight-bear as tolerated and progress activity as tolerated. We discussed her delacruz pain. We will plan to order CT to evaluate for any stress riser, fracture due to her concern that something is moving. I had a long discussion with her regarding additional potential causes of her pain. She is TTP over pes and anterior compartment. We discussed her chronic pain and how that can affect things. We also discussed the fact that she has not been doing PT for a while and may have developed some hypersensitivity. She understands. After discussion we will plan to order labs to rule out infection, CT torule out any implant complication, bony complication at the delacruz, where most of her pain is located. If these are normal would recommend pain science focus PT with Kellen at [facility]. We will plan to follow-up with her following her labs and imaging. Signed: JENNY Streeter 08/20/2022 documented in this encounter Plan of Treatment Upcoming Encounters Date Type Department Care Team (Latest Contact Info) Description 04/06/2024 11:30 AM EST Hospital Encounter [place] [address] Cadence Eric MD [facility] [address] 04/06/2024 11:30 AM EST - 04/06/2024 12:50 PM EST Surgery [place] [address] Cadence Eric MD [facility] [place] [address] IMPLANT NEUROSTIMULATOR ELECTRODES, PERIPHERAL NERVE (WRVU 5.76) 04/14/2024 2:30 PM EST Office Visit [place] [address] Cadence Eric MD [facility] [place] [address] Scheduled Procedures Name Priority Associated Diagnoses Date/Ti me IMPLANT NEUROSTIMULATOR ELECTRODES, PERIPHERAL NERVE (WRVU 5.76) Yes Saphenous neuralgia, right 04/06/2024 11:30 AM EST IMPLANT NEUROSTIMULATOR ELECTRODES, PERIPHERAL NERVE (WRVU 5.76) Saphenous neuralgia, 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 ? Electronically signed by: Yanni Crowder MD, [facility] ([phone]), at 08/27/2022 10:35 PM Narrative 08/27/2022 10:35 [...] hip, knee and ankle were acquired using regulator pin inserter protocol. Sagittal and coronal reformats were created. [...] LEFT hip, knee andankle were acquired using regulator pin inserter protocol. Sagittal and coronal reformatswere created. COMPARISON: [...] patients who have questions please contactthe health healthcare management that requested your imaging first. Wayne Sanchez MD IMG CT ORDERABLES * CRP, acute inflammation (08/20/2022 12:36 PM EDT) C-Reactive Protein 3.0 <=4.9 mg/L [facility] Blood 08/20/2022 12:3 6 PM EDT 08/20/2022 12:41 PM EDT Narrative Resulting Agency Comment Spec In Lab Wayne Sanchez MD CHEMISTRY ORDERABLES Performing Organization Address City/[facility]/ZIP Co de Phone Number [facility] [place] [address] * Sedimentation rate (08/20/2022 12:36 PM EDT) Sedimentation Rate Automated 22 2 - 39 mm/hr [facility] Comment: Effective April 20, 2019 new capillary photometric technology has resulted in a change in reference ranges. It is recommended that each ESR result be reviewed with its own age appropriate reference range. Blood 08/20/2022 12:3 6 PM EDT 08/20/2022 12:41 PM EDT Narrative Resulting Agency Comment Spec In Lab Wayne Sanchez MD HEMATOLOGY ORDERABLE S [facility] [place] [address] documented in this encounter Visit Diagnoses Diagnosis Status post revision of total replacement of left knee Left leg pain Pain in limb Status post revision of total replacement of left knee Left leg pain Pain in limb Saphenous neuralgia, right documented in this encounter Care Teams Application Support Developer Relationship Specialty Start Date End Date Ja Ordaz MD [address] [place] [address] PCP - General Emergency Medicine 03/11/21 documented as of this encounter
--- OUTSIDE RECORDS SUMMARY | 2024-04-05 16:24 | XMS_ITS | Encounter Summary ---
Author Organization [facility] Address [facility] [place] [address] Care Team Providers Care Electrician Helper Name Role Phone Ja Ordaz MD Primary Care Provider [phone] Encounter Details Date Type Department Care Team (Latest Contact Info) Description 08/27/2022 Travel Social History Tobacco Use Types Packs/Day [...] AM EST Hospital Encounter [place]patient [place] [address] Cadence Eric MD [facility] [address] 04/06/2024 11:30 AM EST - 04/06/2024 12:50 PM EST Surgery [place] [phone] Cadence Eric MD [facility] [address] IMPLANT NEUROSTIMULATOR ELECTRODES, PERIPHERAL NERVE (WRVU 5.76) 04/14/2024 2:30 PM EST Office Visit [place] [address] Cadence Eric MD [facility] [address] Scheduled Procedures Name Priority Associated Diagnoses Date/Ti [...] on filedocumented in this encounter Care Teams Electrician Helper Relationship Specialty Start Date End Date Ja Ordaz MD [address] [place] [id number] PCP - General Emergency Medicine 03/11/21 documented as of this encounter
--- OUTSIDE RECORDS SUMMARY | 2024-04-05 16:24 | XMS_ITS | Encounter Summary ---
Author Organization [facility] Address [facility] [place] [address] Care Team Providers Care Director Television Name Role Phone Ja Ordaz MD Primary Care Provider [phone] Encounter Details Date Type Department Care Team (Latest Contact Info) Description 09/30/2022 Travel Social History Tobacco Use Types Packs/Day [...] AM EST Hospital Encounter [place]patient [place] [address] Cadence Eric MD [facility] [place] [address] 04/06/2024 11:30 AM EST - 04/06/2024 12:50 PM EST Surgery [place] [phone] Cadence Eric MD [facility] [place] [address] IMPLANT NEUROSTIMULATOR ELECTRODES, PERIPHERAL NERVE (WRVU 5.76) 04/14/2024 2:30 PM EST Office Visit [facility] [place] [address] Cadence Eric MD [facility] [place] [address] Scheduled Procedures Name Priority Associated Diagnoses Date/Ti [...] filedocumented in this encounter Care Teams Director Television Relationship Specialty Start Date End Date Ja Ordaz MD [address] [place] [id number] PCP - General Emergency Medicine 03/11/21 documented as of this encounter
--- OUTSIDE RECORDS SUMMARY | 2024-04-05 16:24 | XMS_ITS | Encounter Summary ---
Author Organization [facility] [place] [address] Care Team Providers Care Roller Pneumatic Name Role Phone Ja Ordaz MD Primary Care Provider [phone] Reason for Visit * Reason Onset Date Comments Post-op Problem 02/04/2022 Encounter Details Date Type Department Care Team (Late st Contact Info) Description 02/04/2022 [place]phone [place] [address] Clinic, Dr Sanchez Team None Post-op Problem Social History Tobacco Use Types Packs/Day Years [...] encounter Miscellaneous Notes * Telephone Encounter - ОльгаLiza guerinlucas Hyde - 02/05/2022 10:20 AM EDT Case Date: 09/10/2021 ?? Surgeon: Surgeon(s) and Role: * Wayne Sanchez MD - Primary * Faizan Mcdonald MD - Fellow * Rosa Maria, JENNY Sanchez - Physician Highway Engineering Technician ?? Procedure Performed: left Total Knee Arthroplasty Revision Complete (CPT 06000) Removal of antibiotic spacer from knee I reached to Etelvina this morning what called in yesterday afternoon regarding increased pressure in her tibia. When she was last seen in clinic she was having delacruz pain and swelling but was told it would most likely resolve. Since yesterday she has increase pressure. The swelling has improved since her last visit but she still having pain/ increased pressure in that area. She has been sick with a cold this past week so not sure not sure if fever was from her cold or something else going on. She is able to put weight through the leg but she does get a sharp pain in her lower tibia and is limping. We discussed her using some sort of walking device like a cane to help her move around. I did discuss with Izzy QUINTANILLA who recommended that she get XR and we can reach out with results. XR order was pended to Izzy to sign. * Telephone Encounter - Moshe Rivera - 02/04/2022 4:49 PM EDTSummary: Post Op Concerns Who is calling? Etelvina Best call back number: [phone] Best time to call back between 8:00 am & 5:00 pm: Anytime Can we leave a message? yes When was your procedure? 09/10/21 Who was your surgeon? Dr. Sanchez What procedure did you have done? 09/10/2021 1330 @TOTAL KNEE REVISION ARTHROPLASTY, COMPLETE (WRVU 27.11) - Left MODIFIER,GMK REVISION KNEE,MEDACTA - Left Wayne Sanchez (Primary) Faizan Mcdonald Rosa Maria, Izzy Rosario [facility] MAIN OR Discharged What is the question you would like to ask the clinical care team? Etelvina is calling because she is having quite a bit of pain in her delacruz. She states that it feels like there is also a lot of pressure and she thinks there might be something wrong with the sarina. She iscurrently scheduled for a FUV on 04/23/22 with XR prior. However, she would like to be seen sooner.Per Dr. Sanchez note from the last office visit, it states 6 month follow up or as needed. Please advise. Your message will be forwarded to the clinical care team for review. documented in this encounter Plan of Treatment Upcoming Encounters Date Type Department Care Team (Latest Contact Info) Description 04/06/2024 11:30 AM EST Hospital Encounter Outpatient [place] [address] Cadence Eric MD [facility] [place] [address] 04/06/2024 11:30 AM EST - 04/06/2024 12:50 PM EST Surgery Outpatient [place] [address] Cadence Eric MD [facility] [place] [address] IMPLANT NEUROSTIMULATOR ELECTRODES, PERIPHERAL NERVE (WRVU 5.76) 04/14/2024 2:30 PM EST Office Visit [place] [address] Cadence Eric MD [facility] [place] [address] Scheduled Procedures Name Priority Associated Diagnoses Date/Ti [...] who have questions please contact the health intensive care anaesthetist that requested your imaging first. ? Electronically signed by: Johnna Silverio MD, [facility] ([phone]), at 02/07/2022 2:20 PM Narrative 02/07/2022 2:20 [...] patients who have questions please contactthe health intensive care anaesthetist that requested your imaging first. Electronically signed by: Johnna Silverio MD, [facility]([phone]), at 02/07/2022 2:20 PM Wayne Sanchez MD IMG DX ORDERABLES documented in this encounter Visit Diagnoses Diagnosis s/p revision L TKA 09/10/21 (Dr. Sanchez) S/P TKR (total knee replacement), left Status post revision of total knee, left Status post revision of total knee, left Saphenous neuralgia, right documented in this encounter Care Teams Roller Pneumatic Relationship Specialty Start Date End Date Ja Ordaz MD [address] [place] [id number] PCP - General Emergency Medicine 03/11/21 documented as of this encounter
--- OUTSIDE RECORDS SUMMARY | 2024-04-05 16:24 | XMS_ITS | Encounter Summary ---
Author Organization [facility] Address [facility] [place] [address] Care Team Providers Care Caretaker Resort Name Role Phone Ja Ordaz MD Primary Care Provider [phone] Encounter Details Date Type Department Care Team (Latest Contact Info) Description 08/20/2022 12:15 PM EDT Laboratory Appointment Lab [address] [place] [phone] Status post revision of total replacement of [...] AM EST Hospital Encounter [place]patient [place] [phone] Cadence Eric MD [facility] [place] [address] 04/06/2024 11:30 AM EST - 04/06/2024 12:50 PM EST Surgery [place] [address] Cadence Eric MD [facility] [place] [address] IMPLANT NEUROSTIMULATOR ELECTRODES, PERIPHERAL NERVE (WRVU 5.76) 04/14/2024 2:30 PM EST Office Visit [place] [address] Cadence Eric MD [facility] [place] [address] Scheduled Procedures Name Priority Associated Diagnoses Date/Ti [...] Procedure Name Priority Date/Time Associated Diagnosis Comments CRP, ACUTE INFLAMMATION Routine 08/20/2022 12:36 PM EDT Status post revision of total replacement of left knee Left leg pain HEMOGRAM Routine 08/20/2022 12:36 PM EDT Status post revision of total replacement of left knee Left leg pain DIFFERENTIAL, AUTOMATED Routine 08/20/2022 12:36 PM EDT Status post revision of total replacement of left knee Left leg pain SEDIMENTATION RATE Routine 08/20/2022 12 :36 PM EDT Status post revision of total replacement of left knee Left leg pain HC CBC,PLT & AUTO DIFF Routine 12:36 PM EDT Status post revision of total replacement of left knee Left leg pain documented in this encounter Results * Differential, Automated (08/20/2022 12:36 PM EDT) Neutrophil % 61.6 % [facility] Neutrophil Absolute 3.90 1.70 - 6.10 x10(3)/[facility] Lymph % 23.7 % [facility] Lymphocytes Abs 1.5 0.9 - 3.2 x10(3)/[facility] Monocyte % 9.5 % [facility] Monocyte Abs 0.6 0.3 - 0.9 x10(3)/[facility] Eos % 3.9 % [facility] Eosinophils Abs 0.2 0.0 - 0.4 x10(3)/[facility] Basophil % 0.8 % [facility] Baso Absolute 0.0 0.0 - 0.1 x10(3)/[facility] Immature Gran % 0.50 % [facility] Comment: Immature granulocytes(IG's)percentage and absolute count will include metamyelocytes, myelocytes, and promyelocytes. Blood smears from CBCs yielding IG's will be scanned manually for concordance. If this scan disagrees with the automated IG or if promyelocytes are noted, a manual differential will be performed. Immature Gran Absolute 0.03 0.00 - 0.04 x10(3)/[facility] Blood 08/20/2022 12:3 6 PM EDT 08/20/2022 12:41 PM EDT Narrative Resulting Agency Comment Spec In Lab Izzy Hansenor JENNY HEMATOLOGY ORDERABLE S Performing Organization Address City/State/[facility] Co de Phone Number [facility] [place] [address] * (ABNORMAL) Hemogram (08/20/2022 12:36 PM EDT) White Blood Cell 6.3 4.0 - 9.5 x10(3)/mc L [facility] Red Blood Cell 4.41 4.00 - 5.21 x10(6)/mc L [facility] Hemoglobin 12.6 11.7 - 15.5 g/dL [facility] Hematocrit 37.9 35.7 - 45.8 % [facility] Mean Cell Volume 85.9 82.6 - 94.4 fL [facility] Mean Cell Hemoglobin 28.6 27.1 - 32.0 pg [facility] Mean Cell Hemoglobin Concentration 33.2 31.7 - 35.0 g/dL [facility] Platelet 368(H) 145 - 357 x10(3)/mc L [facility] RDW Standard Deviation 39.7 37.0 - 46.0 fL [facility] RDW coefficient of variation 12.6 11.5 - 14.1 % [facility] Mean Platelet Volume 9.9 7.6 - 12.9 fL [facility] NRBC% auto 0.0 % [facility] NRBC Absolute 0.000 0.000 - 0.000 x10(3)/mc L [facility] Blood 08/20/2022 12:3 6 PM EDT 08/20/2022 12:41 PM EDT Narrative Resulting Agency Comment Spec In Lab Izzy ALVARADO HEMATOLOGY ORDERABLE S Performing Organization Address City/[facility]/ZIP Co de Phone Number [facility] [place] [address] * Sedimentation rate (08/20/2022 12:36 PM EDT) Sedimentation Rate Automated 22 2 - 39 mm/hr [facility] Comment: Effective April 20, 2019 new capillary photometric technology has resulted in a change in reference ranges. It is recommended that each ESR result be reviewed with its own age appropriate reference range. Blood 08/20/2022 12:3 6 PM EDT 08/20/2022 12:41 PM EDT Narrative Resulting Agency Comment Spec In Lab Wayne Sanchez MD HEMATOLOGY ORDERABLE S [facility] [place] [address] * CRP, acute inflammation (08/20/2022 12:36 PM EDT) C-Reactive Protein 3.0 <=4.9 mg/L [facility] Blood 08/20/2022 12:3 6 PM EDT 08/20/2022 12:41 PM EDT Narrative Resulting Agency Comment Spec In Lab Wayne Sanchez MD CHEMISTRY ORDERABLES [facility] [place] [address] documented in this encounter Visit Diagnoses Diagnosis Status post revision of total replacement of left knee Left leg pain Pain in limb Saphenous neuralgia, right documented in this encounter Care Teams Caretaker Resort Relationship Specialty Start Date End Date Ja Ordaz MD [address] [place] [address] PCP - General Emergency Medicine 03/11/21 documented as of this encounter
--- OUTSIDE RECORDS SUMMARY | 2024-04-05 16:24 | XMS_ITS | Encounter Summary ---
Author Organization [facility] Address [facility] [place] [address] Care Team Providers Care E Business Project Manager Name Role Phone Ja Ordaz MD Primary Care Provider [phone] Reason for Referral * Physical Therapy (Routine) - Closed Specialty Diagnoses / Procedures Referred By Cindy wooten Referred To Contact Diagnoses Status post revision of total replacement of left knee Federico Lewis MD [facility] [place] [address] Referral ID Status Reason Start Date Expiration Date V isits Requested Visits Authorized [id number] Closed Evaluate and Treat 01/22/2022 07/21/2022 12 12 Reason for Visit * Reason Comments Follow-up 09/10/21 REVISION LEFT TKA WOULD LIKE DR. SANCHEZ Encounter Details Date Type Department Care Team (Late st Contact Info) Description 01/22/2022 10:50 AM EDT Office [place] [address] Clinic, Dr Sanchez Team None s/p revision L TKA 09/10/21 (Dr. Sanchez) [...] Sign Reading Time Taken Comments Blood Pressure 128/57 01/22/2022 10:57 AM EDT Pulse 71 01/22/2022 10:57 AM EDT Temperature - - Respiratory Rate - - Oxygen Saturation - - Inhaled Oxygen Concentration - - Weight 108.9 kg (240 lb) 01/22/2022 10:57 AM EDT Height 152.4 cm (5') 01/22/2022 10:57 AM EDT Body Mass Index 46.87 01/22/2022 10:57 AM EDT documented in this encounter Progress Notes * Federico Lewis MD - 01/22/2022 10:50 AM EDT Arthroplasty/Orthopaedic History: 1. Right medial unicompartmental knee replacement (likely cemented mobile beraing Gates) [facility]2011 2. Left TKA 03/29/2020 (Dr. Jacobson) 3. 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 Sanchez) HPI: Etelvina Cuadra is a very pleasant 61 y.o. year-old female and is now 3 months + post left total knee revision. She has overall been progressing postoperatively. Today she notes pain with activity particularly walking over the anteromedial aspect of her knee. There is limited to no pain at rest. When she does have pain it is anteromedial and posteriorly over the hamstrings (biceps). The posterior based pain improves with gentle massage. The anterior based pain improves at rest. She has been participating in physical therapy twice weekly. She performs a home exercise program in between sessions. She continues to take a narcotic for pain management. This is for a combination of left knee pain and low back pain for which she is on a narcotic at baseline. She has no specific numbness or tingling distally. She notes no wound healing complications although does note that it took a fairly long time for the anterior incision to heal. ROS: Denies: fever, chills, night sweats, nausea, or vomiting BP 128/57 Pulse 71 Ht 152.4 cm (5') Wt 108.9 kg (240 lb) BMI 46.87 kg/m?? Physical Exam: Well-appearing female in no acute distress. Alert and Oriented x 3 and answers all questions appropriately. The incision is well healed, with no signs of infection. Knee Exam: Left Knee ROM: Extension:5 Flexion: 95 Alignment: 0-4 degrees Neutral Stability: A/P Translation <5mm Varus <5mm Valgus <5mm Extension La degrees or less Patella Tracking: Normal Pulses Palpable: Left PT:No Left DP:Yes Motor/Sensory: Distal Motor: Normal Distal Sensory: Normal Quadriceps Strength: 5 X-RAYS: deferred Questionnaire Responses: [facility] Surgical Postop Visit 07/10/2021 PROMIS-10 General Health Good PROMIS-10 Quality of Life Fair PROMIS-10 Physical Health Fair PROMIS-10 Mental Health Excellent PROMIS-10 Social Activity Excellent PROMIS-10 Everyday Activities A little PROMIS-10 Pain 10 - Worst Imaginable Pain PROMIS-10 Fatigue Mild PROMIS-10 Social Roles Fair PROMIS-10 Anxious or Depressed Rarely PROMIS PHYSICAL HEALTH SCORE 32.4 PROMIS MENTAL HEALTH SCORE 53.3 KOOS JR Scores - Problems with surgical incision/wound after surgery - Gone to ER since knee surgery - Where was ER located? - Date of ER visit - Reason for ER visit - Admitted to hospital since recent ortho surgery - Additional surgery on same body part - TKA Grade - Pain in other KNEE - Back pain at this moment - Satisfaction with Treatment Dissatisfied Choose Same Treatment Again Completely uncertain Orthopeadics [facility] Response 06/05/2021 KOOS JR Scores 15.94 Spine [facility] Response 06/05/2021 KOOS JR Scores 15.94 ASSESSMENT/PLAN: Ms. Cuadra is a 61 y.o. year old female returns to clinic today approximately 4 months status post revision left total knee arthroplasty for aseptic loosening. Overall she has been improving. She continues with physical therapy and has found this to be helpful. As to her hamstring pain and tightness I do believe that continued physical therapy will be helpful for her. We discussedthat she is still very early in her postoperative course and her anterior based knee pain and delacruz pain could be expected to improve with time. If this is not the case then we can further investigate. She does have some erythema distally in the leg and we discussed the importance of prompt attention to any open sores or wounds especially given her complicated arthroplasty history. We will plan for continued physical therapy including aquatic therapy. A new script was provided. We will see her back for her 6-month postop visit with x-rays including AP and lateral views of the knee at that time. Sooner as needed. She is in agreement with above plan. All questions answered. Signed: Federico Lewis MD 01/22/2022 * Wayne Sanchez MD - 01/22/2022 10:50 AM EDT I saw and evaluated the patient. I was integral in formulating the plan as outlined. WAYNE SANCHEZ MD documented in this encounter Plan of Treatment Upcoming Encounters Date Type Department Care Team (Latest Contact Info) Description 04/06/2024 11:30 AM EST Hospital Encounter [place] [address] Cadence Eric MD [facility] [place] [address] 04/06/2024 11:30 AM EST - 04/06/2024 12:50 PM EST Surgery [place] [address] Cadence Eric MD [facility] [place] [address] IMPLANT NEUROSTIMULATOR ELECTRODES, PERIPHERAL NERVE (WRVU 5.76) 04/14/2024 2:30 PM EST Office Visit [facility] [place] [address] Cadence Eric MD [facility] [place] [address] Scheduled Procedures Name Priority Associated Diagnoses Date/Ti [...] Referral to Physical Therapy Outpatient Referral Routine s/p revision L TKA 09/10/21 (Dr. Sanchez) Ordered: 01/22/2022 documented as of this encounter Visit Diagnoses Diagnosis s/p revision L TKA 09/10/21 (Dr. Sanchez) Saphenous neuralgia, right documented in this encounter Care Teams E Business Project Manager Relationship Specialty Start Date End Date Ja Ordaz MD [address] [place] [id number] PCP - General Emergency Medicine 03/11/21 documented as of this encounter
--- OUTSIDE RECORDS SUMMARY | 2024-04-05 16:24 | XMS_ITS | Encounter Summary ---
Author Organization [facility] Address [facility] [place] [address] Care Team Providers Care Rivet Driver Name Role Phone Ja Ordaz MD Primary Care Provider [phone] Encounter Details Date Type Department Care Team (Late st Contact Info) Description 05/28/2022 Orders Only [place] [phone] Cadence Eric MD [facility] [place] [address] Postlaminectomy syndrome of lumbar region; Presence of [...] AM EST Hospital Encounter Outpatient [place] [phone] Cadence Eric MD [facility] [address] 04/06/2024 11:30 AM EST - 04/06/2024 12:50 PM EST Surgery Outpatient [place] [address] Cadence Eric MD [facility] [place] [address] IMPLANT NEUROSTIMULATOR ELECTRODES, PERIPHERAL NERVE (WRVU 5.76) 04/14/2024 2:30 PM EST Office Visit [place] [address] Cadence Eric MD [facility] [address] Scheduled Procedures Name Priority Associated Diagnoses Date/Ti [...] right documented in this encounter Care Teams Rivet Driver Relationship Specialty Start Date End Date Ja Ordaz MD [address] [place] [id number] PCP - General Emergency Medicine 03/11/21 documented as of this encounter
--- OUTSIDE RECORDS SUMMARY | 2024-04-05 16:24 | XMS_ITS | Encounter Summary ---
Author Organization [facility] Address [facility] [address] Care Team Providers Care Oracle Webcenter Consultant Name Role Phone Ja Ordaz MD Primary Care Provider [phone] Encounter Details Date Type Department Care Team (Latest Contact Info) Description 03/12/2022 1:30 PM EDT Procedure visit [place] [address] Nicolas Erickson MD [facility] [place] [address] Postlaminectomy syndrome of lumbar region (Primary Dx) Social History Tobacco Use Types [...] Sign Reading Time Taken Comments Blood Pressure 119/57 03/12/2022 1:34 PM EDT Pulse 58 03/12/2022 1:34 PM EDT Temperature - - Respiratory Rate - - Oxygen Saturation 99% 03/12/2022 1:34 PM EDT Inhaled Oxygen Concentration - - Weight - - Height - - Body Mass Index - - documented in this encounter Progress Notes * Etelvina Bishop RN - 03/12/2022 1:30 PM EDT [facility] Nursing Note Etelvina presents today for IT pump refill/reprogramming visit with Dr Erickson. Patient states no discomfort at pump site, no pump alarms since last visit, no pump concerns. Patient states since last visit pain has been 8, usingall* PTM 5 times a day with or without benefit. Patient reports 4 /10 pain. Medications reviewed and updated. ROS: pt denies fevers, chills,SOB, difficulty breathing, open wounds or rashes Etelvina Bishop RN Nicolas Rodriguez MD - 03/12/2022 1:30 PM EDT INTRATHECAL PUMP REFILL PROCEDURE NOTE WITH REPROGRAMMING Date of Service:03/12/2022 Primary Profile Mill Operator Tape Control: Johnie Erickson MD [employer] Director: Etelvina Bishop RN Reason for Reprogramming: to refill pump Diagnosis: Postlaminectomy Syndrome Telemetry Pre-Refill Programming Reading: Drugs/Concentrations: Morphine 10mg/mL - Preservative Free ??- ?? Daily Dose: 2mg with mPTM 0.2mg q3hr PRN 5/day Brand/Compound: Compound. ?? Telemetry Post-Refill Programming Reading: Drugs/Concentrations: Morphine 10mg/mL - Preservative Free ??- ?? Daily Dose: 2.2mg with mPTM 0.2mg q3hr PRN 5/day Brand/Compound: Compound. Pump Capacity: 40 mL Computer predicted residual volume in pump: 5.6 ml Measured residual volume in pump: 7.5 ml Medication or Dose Changes: no Is dose change >30%? no Is concentration of drug different? no Empty syringe concentration verified by negative checker: yes If concentration of drug is different, has a bridge bolus been programmed? n/a. Has any program been used other than simple continuous or bridge bolus and simple continuous? no Infusion Mode: simple continuous. New Alarm Date: 07/09/2022 PROCEDURE: Risks and expected side effects were reviewed with patient and her voiced concerns addressed. The printed consent form was signed and witnessed. The following information was verified: ?? Patient Name on RX: yes ?? Drug Name on RX:yes ?? Drug concentration on syringe containing pump refill [...] instilled into the pump according to the marine pilot's directions without difficulty. Therewas no evidence of [...] AM EST Hospital Encounter [place]patient [place] [address] Cadence Eric MD [facility] [place] [address] 04/06/2024 11:30 AM EST - 04/06/2024 12:50 PM EST Surgery [place]patient [place] [address] Cadence Eric MD [facility] [place] [address] IMPLANT NEUROSTIMULATOR ELECTRODES, PERIPHERAL NERVE (WRVU 5.76) 04/14/2024 2:30 PM EST Office Visit [place] [address] Cadence Eric MD [facility] [place] [address] Scheduled Procedures Name Priority Associated Diagnoses Date/Ti [...] lumbar region- Primary Postlaminectomy syndrome, lumbar region Saphenous neuralgia, right documented in this encounter Care Teams [employer] Webcenter Consultant Relationship Specialty Start Date End Date Ja Ordaz MD [address] [place] [address] PCP - General Emergency Medicine 03/11/21 documented as of this encounter
--- OUTSIDE RECORDS SUMMARY | 2024-04-05 16:24 | XMS_ITS | Encounter Summary ---
Author Organization [facility] Address [facility] [place] [address] Care Team Providers Care Bar Machine Operator Production Name Role Phone Ja Ordaz MD Primary Care Provider [phone] Reason for Visit * Reason Onset Date Comments Knee Pain 04/15/2022 XR order for charity t Encounter Details Date Type Department Care Team (Late st Contact Info) Description 04/15/2022 Telephone [place] [phone] Joseph Palacios, RMA Knee Pain (XR order for appt) Social History Tobacco Use Types Packs/Day Years [...] AM EST Hospital Encounter [place]patient [place] [phone] Cadence Eric MD [facility] [place] [address] 04/06/2024 11:30 AM EST - 04/06/2024 12:50 PM EST Surgery [place] [address] Cadence Eric MD [facility] [place] [address] IMPLANT NEUROSTIMULATOR ELECTRODES, PERIPHERAL NERVE (WRVU 5.76) 04/14/2024 2:30 PM EST Office Visit [facility] [place] [phone] Cadence Eric MD [facility] [place] [address] Scheduled Procedures Name Priority Associated Diagnoses Date/Ti [...] * XR Knee 1-2 Views Left (Generic) (08/20/2022 11:00 AM EDT) Anatomical Region Laterality Modality Knee Left Digital Radiogra phy Impressions 08/20/2022 2:53 PM EDT Status post left total knee arthroplasty. Minimal 2 mm lucency around the femoral stem has progressively increased in conspicuity over serial radiographs. Recommend correlation with clinical symptoms of hardware loosening or infection. In the absence of any clinically suspicious symptoms, continued attention on follow-up imaging is recommended. Small left knee joint effusion is nonspecific. I have personally reviewed the image(s) and the resident's interpretation and agree with the findings, Ana Desir MD at 08/20/2022 2:53 PM Thank you for letting us participate in the care of this patient. ??If you are a health care provider and have any questions regarding this report, please contact the number below. ??For patients who have questions please contact the health infant caregiver that requested your imaging first. ? Narrative 08/20/2022 2:53 PM EDT EXAMINATION: XR KNEE 1-2 VIEWS LEFT (GENERIC) CLINICAL HISTORY: LEFT KNEE PAIN (per history entered by ordering provider) TECHNIQUE: AP weightbearing view of the bilateral knees. Lateral nonweightbearing view of the left knee. COMPARISON: Left knee radiographs 02/07/2022 and 09/10/2021, standing alignment radiographs 06/05/2021. FINDINGS: Right knee: Status post cemented total medial compartmental arthroplasty. Within the limitations of a single view, there is no obvious periprosthetic fracture or lucency, but evaluation for hardware complications is limited in the absence of a lateral view. No focal soft tissue swelling. There is a small knee joint effusion. Left knee: Status post total knee arthroplasty. Hardware is intact. No periprosthetic fracture. 2 mm circumferential periprosthetic lucency of the femoral stem is unchanged when compared to 02/07/2022, but has been progressively increased in conspicuity when compared to 09/10/2021. Normal alignment. Procedure Note Ana Desir MD - 08/20/2022 EXAMINATION: XR KNEE 1-2 VIEWS LEFT (GENERIC) CLINICAL HISTORY: LEFT KNEE PAIN (per history entered by ordering provider) TECHNIQUE: AP weightbearing view of the bilateral knees. Lateral nonweightbearingview of the left knee. COMPARISON: Left knee radiographs 02/07/2022 and 09/10/2021, standing alignmentradiographs 06/05/2021. FINDINGS: Right knee: Status post cemented total medial compartmental arthroplasty. Within the limitations of a single view, there is no obvious periprosthetic fractureor lucency, but evaluation for hardware complications is limited in theabsence of a lateral view. No focal soft tissue swelling. There is a small kneejoint effusion. Left knee: Status post total knee arthroplasty. Hardware is intact. Noperiprosthetic fracture. 2 mm circumferential periprosthetic lucency of the femoral stemis unchanged when compared to 02/07/2022, but has been progressively increasedin conspicuity when compared to 09/10/2021. Normal alignment. IMPRESSION Status post left total knee arthroplasty. Minimal 2 mm lucency aroundthe femoral stem has progressively increased in conspicuity over serialradiographs. Recommend correlation with clinical symptoms of hardware loosening orinfection. In the absence of any clinically suspicious symptoms, continued attentionon follow-up imaging is recommended. Small left knee joint effusion is nonspecific. I have personally reviewed the image(s) and the resident's interpretationand agree with the findings, Ana Desir MD at 08/20/2022 2:53 PM Thank you for letting us participate in the care of this patient. If youare a health care provider and have any questions regarding this report,please contact the number below. For patients who have questions please contactthe health infant caregiver that requested your imaging first. 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
--- OUTSIDE RECORDS SUMMARY | 2024-04-05 16:24 | XMS_ITS | Encounter Summary ---
Author Organization [facility] [place] [address] Care Team Providers Care Lay Out And Detail Drafter Name Role Phone Ja Ordaz MD Primary Care Provider [phone] Reason for Visit * Auth/Cert Specialty Diagnoses / Procedures Referred By Cindy wooten Referred To Contact Diagnoses Postlaminectomy syndrome, not elsewhere classified Post-laminectomy syndrome Procedures PRO ELECTRONIC PUMP ANALYSIS W REPROGRAMMING AND REFILL BY /NAHID ELECTRONIC HERNANDEZ PROG., PUMP- DRUG INFUS; W/ REPROGRAM & REFILL REQ (WRVU 0.9) Nicolas Erickson MD [facility] [place] [address] [facility] Referral ID Status Reason Start Date Expiration Date Visits Re quested Visits Authorized [id number] 1 1 Encounter Details Date Type Department Care Team (Late st Contact Info) Description 03/12/2022 4:00 PM EDT - 03/12/2022 4:30 PM EDT [place] [id number] Nicolas Erickson MD [facility] [place] [address] ELECTRONIC HERNANDEZ PROG., PUMP- DRUG INFUS; W/ [...] daily. 2 gummies daily=4MG NARCAN 4 mg/actuation [place], Non-Aerosol instill 1 spray in 1 NOSTRIL if needed for opioid overdose may re... (REFER TO PRESCRIPTION NOTES). 0 12/08/2018 multivitamin with minerals Tablet Take 1 tablet by mouth daily. morphine sulfate/D5W (MORPHINE IN D5W) 1 mg/mL Prefilled Pump [place] Inject as directed. Has intrathecal pump with [...] 24, 2022 Chief Complaint: LBP HPI: Subjective Etelvian Cuadra is a 61 y.o. female who [...] hernia, with obstruction, without gangrene 06/24/2018 ??? 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 PRO COLONOSCOPY, DIAGNOSTIC 09/23/2011 COLONOSCOPY, DIAGNOSTIC performed by NIKKI MAYORGA at [facility] ENDOSCOPY ??? PRO ELECTRONIC PUMP ANALYSIS W REPROGRAMMING AND REFILL BY /NAHID N/A 03/30/2019 ELECTRONIC HERNANDEZ PROG., PUMP- DRUG INFUS; W/ REPROGRAM & REFILL REQ (WRVU 0.9) performed by Karl Becker MD at [facility] PAIN MGMT MSO ??? PRO ELECTRONIC PUMP ANALYSIS W REPROGRAMMING AND REFILL BY /NAHID N/A 12/05/2019 ELECTRONIC HERNANDEZ PROG., PUMP- DRUG INFUS; W/ REPROGRAM & REFILL REQ (WRVU 0.9) performed by Karl Becker MD at [facility] PAIN MGMT [place] ??? PRO ELECTRONIC PUMP ANALYSIS W REPROGRAMMING AND REFILL BY /NAHID N/A 03/12/2020 ELECTRONIC HERNANDEZ PROG., PUMP- DRUG INFUS; W/ REPROGRAM & REFILL REQ (WRVU 0.9) performed by Karl Becker MD at [facility] PAIN MGMT [place] ??? PRO ELECTRONIC PUMP ANALYSIS W REPROGRAMMING AND REFILL BY JOSE N/A 11/07/2020 ELECTRONIC HERNANDEZ PROG., PUMP- DRUG INFUS; W/ REPROGRAM & REFILL REQ (WRVU 0.9) performed by Karl Becker MD at [facility] PAIN MGMT [facility] ??? PRO ELECTRONIC PUMP ANALYSIS W REPROGRAMMING AND REFILL BY JOSE N/A 03/13/2021 ELECTRONIC HERNANDEZ PROG., PUMP- DRUG INFUS; W/ REPROGRAM & REFILL REQ (WRVU 0.9) performed by Karl Becker MD at [facility] PAIN MGMT [place] ??? PRO ELECTRONIC PUMP ANALYSIS W REPROGRAMMING AND REFILL BY /NAHID N/A 03/12/2022 ELECTRONIC HERNANDEZ PROG., PUMP- DRUG INFUS; W/ REPROGRAM & REFILL REQ (WRVU 0.9) performed by Nicolas Erickson MD at [facility] PAIN MGMT MS[facility] ??? PRO IMP SPINAL CANAL CATH Midline 03/23/2019 IMPLANT, REV OR REP TUNNELED INTRATHACAL OR EPIDURAL CATHETER (WRVU 6.05) performed by Karl Becker MD at [facility] MAIN OR ??? PRO INSERT/ REPLACE INFUSN PUMP, PROGRAMMABLE Right 03/23/2019 IMPLANT OR REPLACE PROG. PUMP-DRUG INFUSION (WRVU 5.6) performed by Melani Darden MD at [facility] ADEEL ??? PRO LAP, CHOLECYSTECTOMY/GRAPH N/A 10/18/2016 LAPAROSCOPIC CHOLECYSTECTOMY WITH CHOLANGIOGRAM (WRVU 11.47) performed by Tasia Umaña MD at [facility] MAIN OR ??? PRO LAP, SURG, REPAIR, VENTRAL, UMBILICAL, SPIGELIAN/EPIGASTRIC HERNIA; INCARCERATED/STRANGULATED N/A 07/12/2018 LAPAROSCOPIC HERNIA, VENTRAL, INCARCERATED, W-WO MESH (WRVU 14.94) performed by Izzy Blanco MD at [facility] MAIN OR ??? PRO REVISE KNEE JOINT REPLACE, ALL PARTS Left 09/10/2021 @TOTAL KNEE REVISION ARTHROPLASTY, COMPLETE (WRVU 27.11) performed by Wayne Sanchez MD at [facility] OR ??? PRO TOTAL KNEE ARTHROPLASTY Left 03/29/2020 TOTAL KNEE ARTHROPLASTY (WRVU 20.72) performed by Maykel Jacobson MD at [facility] MAIN OR ??? XR JOINT ASPIRATION - LARGE JOINT LEFT Left 07/03/2021 XR Fluoro Guided Joint Aspiration Large Left 07/03/2021 Brisa Florez PA [facility] RAD XRAY ALLERGIES: Peanut, Peanut oil, Rice, [...] 2 gummies daily=4MG ??? NARCAN 4 mg/actuation [place], Non-Aerosol instill 1 spray in 1 NOSTRIL if needed for opioid overdose may re... (REFER TO PRESCRIPTION NOTES). 0 ??? multivitamin with minerals Tablet Take 1 tablet by mouth daily. ??? morphine sulfate/D5W (MORPHINE IN D5W) 1 mg/mL Prefilled Pump [place] Inject as directed. Hasintrathecal pump with continuous [...] [facility]ending [facility] [place] [address] / documented in this encounter Miscellaneous Notes * Op Note - Nicolas Erickson MD - 03/12/2022 2:41 PM EDT Pain Management Operative Note Patient Name: Etelvina Cuadra : [id number] MR#: [id number] Case Date: 03/12/2022 Surgeon: Surgeon(s) and Role: * Nicolas Erickson MD - Primary * Maximino Telles MD - Fellow Present on Admission: Postlaminectly Syndrome Presence of intrathecal pump Postoperative diagnosis: Same Procedure(s) (LRB): ELECTRONIC HERNANDEZ PROG., PUMP- DRUG INFUS; W/ REPROGRAM & REFILL REQ (WRVU 0.9) (N/A) INTRATHECAL PUMP REFILL PROCEDURE NOTE WITH REPROGRAMMING Date of Service:03/12/2022 Primary Job Recruiter: Johnie Erickson MD ?? Boat Detailer: Etelvina Bishop RN ?? Reason for Reprogramming: [...] no ?? Empty syringe concentration verified by apparel stock checker: yes ?? If concentration of drug [...] drapes were applied as provided with the [employer]tronic refill kit. A 22 gauge [place] non-coring [...] instilled into the pump according to the frame sample and pattern supervisor's directions without difficulty. Therewas no evidence of [...] Hospital Encounter [place] [address] Cadence Eric MD [facility] [place] [address] 04/06/2024 11:30 AM EST - 04/06/2024 12:50 PM EST Surgery [place] [address] Cadence Eric MD [facility] [place] [address] IMPLANT NEUROSTIMULATOR ELECTRODES, PERIPHERAL NERVE (WRVU 5.76) 04/14/2024 2:30 PM EST Office Visit [place] [address] Cadence Eric MD [facility] [place] [address] Scheduled Procedures Name Priority Associated Diagnoses Date/Ti [...] Routine 03/12/2022 3:11 PM EDT Anal Inf Carpenter Form W ReproRefil(98012) 03/12/2022 2:29 PM EDT Postlaminectomy syndrome of lumbar region ELECTRONIC HERNANDEZ PROG., PUMP- DRUG INFUS; W/ REPROGRAM & REFILL REQ Routine 03/12/2022 2:26 PM EDT Postlaminectomy syndrome of lumbar region documented in this encounter Results * Film Library- Storage Only pain Clinic C-Arm (03/12/2022 3:11 PM EDT) Narrative [facility] - 03/12/2022 3:11 PM EDT See PACS for result report. Nicolas Erickson MD IMG FILM LIBRARY ORD ERABLES [place], [place] documented in this encounter Visit Diagnoses Diagnosis Postlaminectomy syndrome of lumbar region Postlaminectomy syndrome, lumbar region Postlaminectomy syndrome of lumbar region Postlaminectomy syndrome, lumbar region Saphenous neuralgia, right documented in this encounter Care Teams Lay Out And Detail Drafter Relationship Specialty Start Date End Date Ja Ordaz MD [address] [place] [address] PCP - General Emergency Medicine 03/11/21 documented as of this encounter
--- OUTSIDE RECORDS SUMMARY | 2024-04-05 16:24 | XMS_ITS | Encounter Summary ---
Author Organization [facility] Address [facility] [place] [address] Care Team Providers Care Sales And Marketing Manager Name Role Phone Ja Ordaz MD Primary Care Provider [phone] Encounter Details Date Type Department Care Team (Late st Contact Info) Description 09/12/2022 Orders [place] [phone] Cadence Eric MD [facility] [place] [address] Postlaminectomy syndrome of lumbar region; Presence of [...] AM EST Hospital Encounter Outpatient [place] [phone] Cadence Eric MD [facility] [place] [address] 04/06/2024 11:30 AM EST - 04/06/2024 12:50 PM EST Surgery Outpatient [place] [address] Cadence Eric MD [facility] [place] [address] IMPLANT NEUROSTIMULATOR ELECTRODES, PERIPHERAL NERVE (WRVU 5.76) 04/14/2024 2:30 PM EST Office Visit [facility] [place] [address] Cadence Eric MD [facility] [place] [address] Scheduled Procedures Name Priority Associated Diagnoses Date/Ti [...] right documented in this encounter Care Teams Sales And Marketing Manager Relationship Specialty Start Date End Date Ja Ordaz MD [address] [place] [address] PCP - General Emergency Medicine 03/11/21 documented as of this encounter
--- OUTSIDE RECORDS SUMMARY | 2024-04-05 16:24 | XMS_ITS | Encounter Summary ---
Author Organization [facility] Address [facility] [place] [address] Care Team Providers Care Form Drafter Name Role Phone Ja Ordaz MD Primary Care Provider [phone] Reason for Visit * Reason Onset Date Comments Appointment 09/25/2022 Encounter Details Date Type Department Care Team (Late st Contact Info) Description 09/25/2022 [place] [address] Rosa Maria, JENNY Sanchez [facility] [place] [address] Appointment Social History Tobacco Use Types Packs/Day [...] encounter Miscellaneous Notes * Telephone Encounter - Magi Telles - 09/25/2022 4:14 PM EDT Patient scheduled for 10/29 to discuss Bone Scan results * Telephone Encounter - Magi Telles - 09/25/2022 4:14 PM EDT Looks like jamil is full for the rest of the day her bone scan is on. I would re-schedule her in Dr. Sanchez team clinic ( 2 appt slots) the Wed after her bone scan. Laura * Telephone Encounter - Sara Duran - 09/25/2022 11:50 AM EDTSummary: RESCHEDULED BONE SCAN Name of person calling: Patient/Etelvina Have you had Surgery? Yes If so when? 2011, 03/2020 and 09/2021 Who was the Surgeon? Listed all in notes: 2011 [facility] 03/2020 Dr. Jacobson 09/2021 Dr. Sanchez What is the question: Patient states she had a family emergency and had to cancel her bone scan andfollow up with Jamil Hansenor for 09/25/22 and rescheduled the bone scan to 10/23 at 9:45am and 1pm. Patient is asking can Jamil Rosa Maria fit her in sometime after 2pm once the bone scan is over. Best number to reach the caller: [phone] documented in this encounter Plan of Treatment Upcoming Encounters Date Type Department Care Team (Latest Contact Info) Description 04/06/2024 11:30 AM EST Hospital Encounter [place] [address] Cadence Eric MD [facility] [place] [address] 04/06/2024 11:30 AM EST - 04/06/2024 12:50 PM EST Surgery [place] [address] Cadence Eric MD [facility] [place] [address] IMPLANT NEUROSTIMULATOR ELECTRODES, PERIPHERAL NERVE (WRVU 5.76) 04/14/2024 2:30 PM EST Office Visit [place] [address] Cadence Eric MD [facility] [place] [address] Scheduled Procedures Name Priority Associated Diagnoses Date/Ti [...] on filedocumented in this encounter Care Teams Form Drafter Relationship Specialty Start Date End Date Ja Ordaz MD [address] [place] [address] PCP - General Emergency Medicine 03/11/21 documented as of this encounter
--- OUTSIDE RECORDS SUMMARY | 2024-04-05 16:24 | XMS_ITS | Encounter Summary ---
Author Organization [facility] [place] [address] Care Team Providers Care Executive Coordinator Name Role Phone Ja Ordaz MD Primary Care Provider [phone] Reason for Visit * Auth/Cert Specialty Diagnoses / Procedures Referred By Cindy t Referred To Contact Diagnoses Postlaminectomy syndrome, not elsewhere classified Post-laminectomy syndrome Procedures PRO ELECTRONIC PUMP ANALYSIS W REPROGRAMMING AND REFILL BY /NAHID ELECTRONIC HERNANDEZ PROG., PUMP- DRUG INFUS; W/ REPROGRAM & REFILL REQ (WRVU 0.9) Nicolas Erickson MD [facility] [place] [address] [facility] Referral ID Status Reason Start Date Expiration Date Visits Re quested Visits Authorized [id number] 1 1 Encounter Details Date Type Department Care Team (Late st Contact Info) Description 03/12/2022 2:30 PM EDT Ancillary [place] [address] Social History Tobacco Use Types Packs/Day Years [...] AM EST Hospital Encounter [place]patient [place] [address] Cadence Eric MD [facility] [place] [address] 04/06/2024 11:30 AM EST - 04/06/2024 12:50 PM EST Surgery [place]patient [place] [address] Cadence Eric MD [facility] [place] [address] IMPLANT NEUROSTIMULATOR ELECTRODES, PERIPHERAL NERVE (WRVU 5.76) 04/14/2024 2:30 PM EST Office Visit [facility] [place] [address] Cadence Eric MD [facility] [place] [address] Scheduled Procedures Name Priority Associated Diagnoses Date/Ti [...] C ARM Routine 03/12/2022 3:11 PM EDT documented in this encounter Results * Film Library- Storage Only pain Clinic C-Arm (03/12/2022 3:11 PM EDT) Narrative [facility] - 03/12/2022 3:11 PM EDT See PACS for result report. Nicolas Erickson MD IMG FILM LIBRARY ORD ERABLES [place], [place] documented in this encounter Visit Diagnoses Not on filedocumented in this encounter Care Teams Executive Coordinator Relationship Specialty Start Date End Date Ja Ordaz MD [address] [place] [address] PCP - General Emergency Medicine 03/11/21 documented as of this encounter
--- OUTSIDE RECORDS SUMMARY | 2024-04-05 16:24 | XMS_ITS | Encounter Summary ---
Author Organization [facility] Address [facility] [place] [address] Care Team Providers Care Contract Negotiator Name Role Phone Ja Ordaz MD Primary Care Provider [phone] Encounter Details Date Type Department Care Team (Latest Contact Info) Description 08/20/2022 10:35 AM EDT - 08/20/2022 11:59 PM EDT Hospital Encounter XRay at [address] [place] [address] [facility] [place] [address] Status post revision of total replacement of [...] daily. 2 gummies daily=4MG NARCAN 4 mg/actuation [place], Non-Aerosol instill 1 spray in 1 NOSTRIL if needed for opioid overdose may re... (REFER TO PRESCRIPTION NOTES). 0 12/08/2018 multivitamin with minerals Tablet Take 1 tablet by mouth daily. morphine sulfate/D5W (MORPHINE IN D5W) 1 mg/mL Prefilled Pump [place] Inject as directed. Has intrathecal pump with [...] AM EST Hospital Encounter [place] [address] [facility] [place] [address] 04/06/2024 11:30 AM EST - 04/06/2024 12:50 PM EST Surgery [place] [address] [facility] [place] [address] IMPLANT NEUROSTIMULATOR ELECTRODES, PERIPHERAL NERVE (WRVU 5.76) 04/14/2024 2:30 PM EST Office Visit [place] [address] [facility] [place] [address] Scheduled Procedures Name Priority Associated Diagnoses Date/Ti [...] XR KNEE AP & LAT LEFT Routine 08/20/2022 11:00 AM EDT Status post revision of total replacement of left knee documented in this encounter Results * XR [...] please contact the health post acute care nurse practitioner that requested your imaging first. ? Electronically signed by: Ana Desir MD, [facility] ([phone]), at 08/20/2022 2:53 PM Narrative 08/20/2022 2:53 PM EDT EXAMINATION: XR [...] questions please contactthe health post acute care nurse practitioner that requested your imaging first. 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
--- OUTSIDE RECORDS SUMMARY | 2024-04-05 16:24 | XMS_ITS | Encounter Summary ---
Author Organization Formerly [facility] [place] [place] [address] Care Team Providers Care Noodle Maker Name Role Phone Ja Ordaz MD Primary Care Provider [phone] Reason for Visit * Auth/Cert (Routine) Specialty Diagnoses / Procedures Referred By Cindy t Referred To Contact Diagnoses post laminectomy Procedures PRO ELECTRONIC PUMP ANALYSIS W REPROGRAMMING AND REFILL BY MD/BOAT OUTFITTER PRG FLUORO GUIDE FOR NEEDLE PLACEMENT ELECTRONIC HERNANDEZ PROG., PUMP- DRUG INFUS; W/ REPROGRAM & REFILL REQ (WRVU 0.9) FLUOROSCOPY GUIDED NEEDLE PLACEMENT (WRVU 0.54) Cadence Eric MD [facility] [place] [address] [facility] Referral ID Status Reason Start Date Expiration Date Visits Re quested Visits Authorized [id number] 1 1 Encounter Details Date Type Department Care Team (Late st Contact Info) Description 07/04/2022 3:00 PM EST - 07/04/2022 4:00 PM [place] [id number] Cadence Eric MD [facility] [place] [address] ELECTRONIC HERNANDEZ PROG., PUMP- DRUG INFUS; W/ [...] Sign Reading Time Taken Comments Blood Pressure 134/72 07/04/2022 2:46 PM EST Pulse 72 07/04/2022 2:42 PM EST Temperature - - Respiratory Rate - - Oxygen Saturation 97% 07/04/2022 2:42 PM EST Inhaled Oxygen Concentration - - Weight 106.6 kg (235 lb) 07/04/2022 2:42 PM EST Height 152.4 cm (5') 07/04/2022 2:42 PM EST Body Mass Index 45.9 07/04/2022 2:42 PM EST documented in this encounter Medications at Time [...] daily. 2 gummies daily=4MG NARCAN 4 mg/actuation [place], Non-Aerosol instill 1 spray in 1 NOSTRIL if needed for opioid overdose may re... (REFER TO PRESCRIPTION NOTES). 0 12/08/2018 multivitamin with minerals Tablet Take 1 tablet by mouth daily. morphine sulfate/D5W (MORPHINE IN D5W) 1 mg/mL Prefilled Pump Economy Inject as directed. Has intrathecal pump with continuous rate and Has 5 preset prn boluses pt may give herself estradioL (ESTRACE) 0.01 % (0.1 mg/gram) Cream INSERT 1 APPLICATOFUL INTO THE VAGINA ONCE A DAY FOR 2 WEEKS THEN DECREASE OVER 2 WEEKS TO TWICE WEEKLY 06/02/2022 02/09/2023 aspirin EC 81 mg Tablet, Delayed Release [...] as of this encounter H&P Notes * Darius Pickens MD - 07/04/2022 2:36 PM EST Patient Name: Etelvina Cuadra Patient Age: 61 y.o. Birthdate: 1960 Admit date: 07/04/2022 Attending Physician: Cadence Eric MD PREPROCEDURE HISTORY AND PHYSICAL Date of Visit: July 04, 2022 Ms. Cuadra presents for Intrathecal pump refill. Chief Complaint: Low back pain HPI: Subjective Etelvina Cuadra is a 61 y.o. female who presents today for IT pump refill with a diagnosis of 1. Postlaminectomy syndrome of lumbar region 2. Presence of intrathecal pump with symptoms of Low back pain. The history is obtained from the patient, and I have reviewed medical records provided by the referring physician and located in the electronic medical record to fill in gaps in the patient's recollection of events, treatments and outcomes. LOCATION: Low back pain PAIN LEVEL AT REST 10 PAST MEDICAL HISTORY: Past Medical History: Diagnosis [...] hernia, with obstruction, without gangrene 06/24/2018 ??? 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 Ventral hernia 07/12/2018 ??? Vertigo There are no medical history contraindications to this procedure. PAST SURGICAL HISTORY: Past Surgical History: Procedure Laterality Date ??? BACK SURGERY ??? IMPLANT OR REPLACE DEVICE FOR INTRATHECAL INFUSION, SUBQ RESERVOIR ??? JOINT REPLACEMENT Left knee ??? ORTHOPEDIC SURGERY ? ? PRO ARTHROPLASTY KNEE CONDYLE & PLATEAU MEDIAL & LAT COMPARTMENTS Left 03/29/2020 TOTAL KNEE ARTHROPLASTY (WRVU 20.72) performed by Maykel Jacobson MD at [facility] MAIN OR ??? PRO COLONOSCOPY, BIOPSY 10/07/2011 COLONOSCOPY FLEXIBLE, WITH BX performed by NIKKI MAYORGA at [facility] ENDOSCOPY ??? PRO COLONOSCOPY, DIAGNOSTIC 09/23/2011 COLONOSCOPY, DIAGNOSTIC performed by NIKKI MAYORGA at [facility] ENDOSCOPY ??? PRO ELECTRONIC PUMP ANALYSIS W REPROGRAMMING AND REFILL BY /NAHID N/A 03/30/2019 ELECTRONIC HERNANDEZ PROG., PUMP- DRUG INFUS; W/ REPROGRAM & REFILL REQ (WRVU 0.9) performed by Karl Becker MD at [facility] PAIN MGMT MSO ??? PRO ELECTRONIC PUMP ANALYSIS W REPROGRAMMING AND REFILL BY /NAHID N/A 12/05/2019 ELECTRONIC HERNANDEZ PROG., PUMP- DRUG INFUS; W/ REPROGRAM & REFILL REQ (WRVU 0.9) performed by Karl Becker MD at [facility] PAIN MGMT MSO ??? PRO ELECTRONIC PUMP ANALYSIS W REPROGRAMMING AND REFILL BY /NAHID N/Radha 03/12/2020 ELECTRONIC HERNANDEZ PROG., PUMP- DRUG INFUS; W/ REPROGRAM & REFILL REQ (WRVU 0.9) performed by Karl Becker MD at [facility] PAIN MGMT MSO ??? PRO ELECTRONIC PUMP ANALYSIS W REPROGRAMMING AND REFILL BY JOSE N/Radha 11/07/2020 ELECTRONIC HERNANDEZ PROG., PUMP- DRUG INFUS; W/ REPROGRAM & REFILL REQ (WRVU 0.9) performed by Karl Becker MD at [facility] PAIN MGMT MSO ??? PRO ELECTRONIC PUMP ANALYSIS W REPROGRAMMING AND REFILL BY JOSE N/Radha 03/13/2021 ELECTRONIC HERNANDEZ PROG., PUMP- DRUG INFUS; W/ REPROGRAM & REFILL REQ (WRVU 0.9) performed by Karl Becker MD at [facility] PAIN MGMT MSO ??? PRO ELECTRONIC PUMP ANALYSIS W REPROGRAMMING AND REFILL BY /NAHID N/Radha 03/12/2022 ELECTRONIC HERNANDEZ PROG., PUMP- DRUG INFUS; W/ REPROGRAM & REFILL REQ (WRVU 0.9) performed by Nicolas Erickson MD at [facility] PAIN MGMT MSO ??? PRO IMP SPINAL CANAL CATH Midline 03/23/2019 IMPLANT, REV OR REP TUNNELED INTRATHACAL OR EPIDURAL CATHETER (WRVU 6.05) performed by Karl Becker MD at [facility] MAIN OR ??? PRO INSERT/ REPLACE INFUSN PUMP, PROGRAMMABLE Right 03/23/2019 IMPLANT OR REPLACE PROG. PUMP-DRUG INFUSION (WRVU 5.6) performed by Melani Darden MD at [facility] ADEEL ??? PRO LAP, CHOLECYSTECTOMY/GRAPH N/A 10/18/2016 LAPAROSCOPIC CHOLECYSTECTOMY WITH CHOLANGIOGRAM (WRVU 11.47) performed by Tasia Umaña MD at [facility] MAIN OR ??? PRO LAP, SURG, REPAIR, VENTRAL, UMBILICAL, SPIGELIAN/EPIGASTRIC HERNIA; INCARCERATED/STRANGULATED N/A 07/12/2018 LAPAROSCOPIC HERNIA, VENTRAL, INCARCERATED, W-WO MESH (WRVU 14.94) performed by Izzy Blanco MD at [facility] MAIN OR ??? PRO REVISE KNEE JOINT REPLACE, ALL PARTS Left 09/10/2021 @TOTAL KNEE REVISION ARTHROPLASTY, COMPLETE (WRVU 27.11) performed by Wayne Sanchez [facility] ??? XR JOINT ASPIRATION - LARGE JOINT LEFT Left 07/03/2021 XR Fluoro Guided Joint Aspiration Large Left 07/03/2021 Brisa Florez, JENNY [facility] RAD XRAY There are no past surgical contraindications to this procedure ALLERGIES: Latex, natural rubber; Peanut; Peanut oil; Rice; Wheat; Wheat bran; Wheat flour; Wheat germ oil; Wheat starch; Adhesive; Canine protein containing products; Hazelnut; Hydrocodone; Hydrocodone-acetaminophen; Hydrocodone-ibuprofen; Rofecoxib; Tetracyclines; and Wool There are no allergic contraindications to this procedure. MEDICATIONS: Medications 07/04/22 1441 Medication Sig Taking? oxyCODONE (Roxicodone) 15 mg Tablet Take 15 mg by mouth every 4 hours as needed for Pain. Yes citalopram (CeleXA) 20 mg Tablet Take 20 mg by mouth nightly. Yes levothyroxine (Synthroid) 100 mcg Tablet Take 1 tablet by mouth daily. PATIENT REQUESTS SYNTHROID(NOT GENERIC) Patient taking differently: Take 100 mcg by mouth nightly. PATIENT REQUESTS SYNTHROID(NOT GENERIC) Yes fenofibrate (TRIGLIDE) 160 mg Tablet Take 1 tablet by mouth nightly. Patient taking differently: Take 160 mg by mouth daily. Take 1/2 tablet nightly Yes senna-docusate (Pericolace) 8.6-50 mg Tablet Take 1 tablet by mouth daily. Patient taking differently: Take 1 tablet by mouth as needed. Yes calcium carbonate-vitamin D3 (Os-Nico 500 + D3) 500mg (1,250mg) -600 unit Tablet Take 1 tablet by mouth Daily. Yes Bifidobacterium infantis (ALIGN) 4 mg Capsule Take by mouth daily. 2 gummies daily=4MG Yes multivitamin with minerals Tablet Take 1 tablet by mouth daily. Yes aspirin EC 81 mg Tablet, Delayed Release (E.C.) Take 81 mg by mouth daily. tiZANidine (Zanaflex) 2 mg Tablet Take 1 tablet by mouth 3 times daily as needed. Patient not taking: No sig reported acetaminophen (Tylenol) 500 mg Tablet Take 2 tablets by mouth every 8 hours. Lidocaine (Salonpas, lidocaine,) 4 % Adhesive Patch, Medicated Apply 3 patches topically daily as needed. furosemide (Lasix) 20 mg Tablet Take 1 tablet by mouth daily as needed. Patient not taking: No sig reported epinephrine HCl/PF (EPINEPHrine, pf,) 1 mg/mL (1:1,000) Solution Inject as directed. NARCAN 4 mg/actuation [place], Non-Aerosol instill 1 spray in 1 NOSTRIL if needed for opioid overdosemay re... (REFER TO PRESCRIPTION NOTES). morphine sulfate/D5W (MORPHINE IN D5W) 1 mg/mL Prefilled Pump Economy Inject as directed. Has intrathecal pump with continuous rate and Has 5 preset prn boluses pt may give herself There are no medication contraindications to this procedure. FAMILY HISTORY: Family History Problem Relation Age [...] Types: Cigarettes Quit date: 09/23/1991 Years since quittin.8 ??? Smokeless tobacco: Never Vaping Use ??? [...] on file Housing Stability: Not on file There are no social history contraindications to this procedure. ROS: Review of Systems Constitutional: Negative for fever, chills, or recent infection. Respiratory: Negative for shortness of breath. Cardiovascular: Negative for chest pain. Musculoskeletal: Positive for low back pain. Psychiatric/Behavioral: Negative for agitation and behavioral problems. PHYSICAL EXAM: BP 134/72 (Patient Position: Sitting) Pulse 72 Ht 152.4 cm (5') Wt 106.6 kg (235 lb) SpO2 97% BMI 45.90 kg/m?? Physical Exam Constitutional: She appears well-developed and well-nourished. No distress. Cardiovascular: Normal heart rate. Pulmonary/Chest: Effort normal and breath sounds normal. Skin: She is not diaphoretic. This is no rash, apparent infection, or other abnormality to the areaof the proposed injection. There are no physical examination findings which would preclude this procedure. ASSESSMENT: 1. Postlaminectomy syndrome of lumbar region 2. Presence of intrathecal pump PLAN: Proceed with procedure as planned. Thank you for the opportunity to participate in Etelvina Cuadra's care. Please feel free to contact mewith any questions. Sincerely, Darisu Pickens MD, CARMITA Pain Medicine Fellow [address] [phone] / [facility] documented in this encounter Miscellaneous Notes * Op Note - Cadence Eric MD - 07/04/2022 3:05 PM EST Pain Management Operative Note Patient Name: Etelvina Cuadra : [id number] MR#: [id number] Case Date: 07/04/2022 Surgeon: Surgeon(s) and Role: * Cadence Eric MD - Primary * Darius Pickens MD - Fellow Present on Admission: ??? Postlaminectomy syndrome of lumbar region Postoperative diagnosis: Postlaminectomy syndrome of lumbar region Procedure(s) (LRB): ELECTRONIC HERNANDEZ PROG., PUMP- DRUG INFUS; W/ REPROGRAM & REFILL REQ MD (WRVU 0.9) (N/A) FLUOROSCOPY GUIDED NEEDLE PLACEMENT (WRVU 0.54) (N/A) INTRATHECAL PUMP REFILL PROCEDURE NOTE WITH REPROGRAMMING Primary Catheterization Laboratory Technician: Cadence Eric MD ?? Assembling Fabricator: Darius Metcalf MD ?? Reason for Reprogramming: to refill pump [...] ?? Computer predicted residual volume in pump: 7.3 ml ?? Measured residual volume in pump: 8.5 ml ?? Medication or Dose Changes: no ?? Is dose change >30%? no ?? Is concentration of drug different? no ?? Empty syringe concentration verified by quality checker: yes ?? If concentration of drug is different, has a bridge bolus been programmed? n/a. ?? Has any program been used other than simple continuous or bridge bolus and simple continuous? no ?? Infusion Mode: simple continuous. ?? New Alarm Date: 10/31/22 ?? PROCEDURE: Risks and expected side effects [...] instilled into the pump according to the elevator operator's directions without difficulty. Therewas no evidence of [...] of Cadence Eric MD [facility] Tax Evaluator of Anesthesiology [facility] [employer] [address] [phone] / [facility] documented in this encounter Plan of Treatment Upcoming Encounters Date Type Department Care Team (Latest Contact Info) Description 04/06/2024 11:30 AM EST Hospital Encounter [place] [address] Cadence Eric MD [facility] [place] [address] 04/06/2024 11:30 AM EST - 04/06/2024 12:50 PM EST Surgery [place] [address] Cadence Eric MD [facility] [place] [address] IMPLANT NEUROSTIMULATOR ELECTRODES, PERIPHERAL NERVE (WRVU 5.76) 04/14/2024 2:30 PM EST Office Visit [facility] [place] [address] Cadence Eric MD [facility] [address] Scheduled Procedures Name Priority Associated Diagnoses Date/Ti [...] Procedure Name Priority Date/Time Associated Diagnosis Comments Fluoro Guide For Needle Placement (33405) 07/04/2022 2:57 PM EST Postlaminectomy syndrome of lumbar region Presence of intrathecal pump Anal Inf Hockey Scout W ReproRefil([id number]) 07/04/2022 2:57 PM EST Postlaminectomy syndrome of lumbar region Presence of intrathecal pump ELECTRONIC HERNANDEZ PROG., PUMP- DRUG INFUS; W/ REPROGRAM & REFILL REQ Routine 07/04/2022 2:33 PM EST Postlaminectomy syndrome of lumbar region Presence of intrathecal pump FLUOROSCOPY GUIDED NEEDLE PLACEMENT Routine 07/04/2022 2:33 PM EST Postlaminectomy syndrome of lumbar region Presence of intrathecal pump documented in this encounter Visit Diagnoses Diagnosis Postlaminectomy syndrome of lumbar region- Primary Postlaminectomy syndrome, lumbar region Presence of intrathecal pump Postlaminectomy syndrome of lumbar region Postlaminectomy syndrome, lumbar region Presence of intrathecal pump Saphenous neuralgia, right documented in this encounter Care Teams Noodle Maker Relationship Specialty Start Date End Date Ja Ordaz MD [address] [place] [address] PCP - General Emergency Medicine 03/11/21 documented as of this encounter
--- OUTSIDE RECORDS SUMMARY | 2024-04-05 16:24 | XMS_ITS | Encounter Summary ---
Author Organization [facility] [place] [address] Care Team Providers Care Photographer Portrait Name Role Phone Ja Ordaz MD Primary Care Provider Reason for Visit * Auth/Cert (Routine) Specialty Diagnoses / Procedures Referred By Conttom t Referred To Contact Diagnoses post laminectomy Procedures PRO ELECTRONIC PUMP ANALYSIS W REPROGRAMMING AND REFILL BY /CUSTOMER OPERATIONS INTERN PRG FLUORO GUIDE FOR NEEDLE PLACEMENT ELECTRONIC HERNANDEZ PROG., PUMP- DRUG INFUS; W/ REPROGRAM & REFILL REQ MD (WRVU 0.9) FLUOROSCOPY GUIDED NEEDLE PLACEMENT (WRVU 0.54) Cadence Eric MD [facility] [place] [address] [facility] [[email or web address]] Referral ID Status Reason Start Date Expiration Date Visits Re quested Visits Authorized [id number] 1 1 Encounter Details Date Type Department Care Team (Latest Contact Info) Description 07/04/2022 2:13 PM EST - 07/04/2022 3:23 PM EST Hospital Encounter [place] [address] Cadence Eric MD [facility] [place] [address] Postlaminectomy syndrome of lumbar region; Presence of [...] daily. 2 gummies daily=4MG NARCAN 4 mg/actuation [place], Non-Aerosol instill 1 spray in 1 NOSTRIL if needed for opioid overdose may re... (REFER TO PRESCRIPTION NOTES). 0 12/08/2018 multivitamin with minerals Tablet Take 1 tablet by mouth daily. morphine sulfate/D5W (MORPHINE IN D5W) 1 mg/mL Prefilled Pump [place] Inject as directed. Has intrathecal pump [...] Low back pain PAIN LEVEL AT REST 5/10 PAST MEDICAL HISTORY: Past Medical History: Diagnosis [...] hernia, with obstruction, without gangrene 06/24/2018 ??? 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 PRO COLONOSCOPY, BIOPSY 10/07/2011 COLONOSCOPY FLEXIBLE, WITH BX performed by NIKKI MAYORGA at [facility] ENDOSCOPY ??? PRO COLONOSCOPY, DIAGNOSTIC 09/23/2011 COLONOSCOPY, DIAGNOSTIC performed by NIKKI MAYORGA at [facility] ENDOSCOPY ??? PRO ELECTRONIC PUMP ANALYSIS W REPROGRAMMING AND REFILL BY /ANHID N/A 03/30/2019 ELECTRONIC HERNANDEZ PROG., PUMP- DRUG INFUS; W/ REPROGRAM & REFILL REQ (WRVU 0.9) performed by Karl Becker MD at [facility] PAIN MGMT MSO ??? PRO ELECTRONIC PUMP ANALYSIS W REPROGRAMMING AND REFILL BY /NAHID N/A 12/05/2019 ELECTRONIC HERNANDEZ PROG., PUMP- DRUG INFUS; W/ REPROGRAM & REFILL REQ (WRVU 0.9) performed by Karl Becker MD at [facility] PAIN MGMT MSO ??? PRO ELECTRONIC PUMP ANALYSIS W REPROGRAMMING AND REFILL BY JOSE N/Radha 03/12/2020 ELECTRONIC HERNANDEZ PROG., PUMP- DRUG INFUS; W/ REPROGRAM & REFILL REQ (WRVU 0.9) performed by Karl Becker MD at [facility] PAIN MGMT MSO ??? PRO ELECTRONIC PUMP ANALYSIS W REPROGRAMMING AND REFILL BY JOSE N/Radha 11/07/2020 ELECTRONIC HERNANDEZ PROG., PUMP- DRUG INFUS; W/ REPROGRAM & REFILL REQ (WRVU 0.9) performed by Karl Becker MD at [facility] PAIN MGMT MSO ??? PRO ELECTRONIC PUMP ANALYSIS W REPROGRAMMING AND REFILL BY JOSE N/Radha 03/13/2021 ELECTRONIC HERNANDEZ PROG., PUMP- DRUG INFUS; W/ REPROGRAM & REFILL REQ (WRVU 0.9) performed by Karl Becker MD at [facility] PAIN MGMT MSO ??? PRO ELECTRONIC PUMP ANALYSIS W REPROGRAMMING AND REFILL BY JOSE N/Radha 03/12/2022 ELECTRONIC HERNANDEZ PROG., PUMP- DRUG INFUS; W/ REPROGRAM & REFILL REQ (WRVU 0.9) performed by Nicolas Erickson MD at [facility] PAIN MGMT MSO ??? PRO IMP SPINAL CANAL CATH Midline 03/23/2019 IMPLANT, REV OR REP TUNNELED INTRATHACAL OR EPIDURAL CATHETER (WRVU 6.05) performed by Karl Becker MD at [facility] MAIN OR ??? PRO INSERT/ REPLACE INFUSN PUMP, PROGRAMMABLE Right 03/23/2019 IMPLANT OR REPLACE PROG. PUMP-DRUG INFUSION (WRVU 5.6) performed by Melani Darden MD at [facility] ADEEL ??? PRO LAP, CHOLECYSTECTOMY/GRAPH N/A 10/18/2016 LAPAROSCOPIC CHOLECYSTECTOMY WITH CHOLANGIOGRAM (WRVU 11.47) performed by Tasia Umaña MD at [facility] MAIN OR ??? PRO LAP, SURG, REPAIR, VENTRAL, UMBILICAL, SPIGELIAN/EPIGASTRIC HERNIA; INCARCERATED/STRANGULATED N/A 07/12/2018 LAPAROSCOPIC HERNIA, VENTRAL, INCARCERATED, W-WO MESH (WRVU 14.94) performed by Izzy Blanco MD at [facility] MAIN OR ??? PRO REVISE KNEE JOINT REPLACE, ALL PARTS Left 09/10/2021 @TOTAL KNEE REVISION ARTHROPLASTY, COMPLETE (WRVU 27.11) [facility] ??? XR JOINT ASPIRATION - LARGE JOINT LEFT Left 07/03/2021 XR Fluoro Guided Joint Aspiration Large Left 07/03/2021 Brisa Florez, PA [facility] RAD XRAY There are no past surgical [...] Solution Inject as directed. NARCAN 4 mg/actuation [place], Non-Aerosol instill 1 spray in 1 NOSTRIL if needed for opioid overdosemay re... (REFER TO PRESCRIPTION NOTES). morphine sulfate/D5W (MORPHINE IN D5W) 1 mg/mL Prefilled Pump [place] Inject as directed. Has intrathecal pump [...] free to contact mewith any questions. Sincerely, Darius Pickens MD, CARMITA Pain Medicine Fellow [place] [phone] / [facility] documented in this encounter Miscellaneous Notes * Op Note - Cadence Eric MD - 07/04/2022 3:05 PM EST Pain Management Operative Note Patient Name: Etelvina Cuadra : [id number] MR#: [id number] Case Date: 07/04/2022 Surgeon: Surgeon(s) and Role: * Cadence Eric MD - Primary * Darius Pickens MD - Fellow Present on Admission: ??? Postlaminectomy syndrome of lumbar region Postoperative diagnosis: Postlaminectomy syndrome of lumbar region Procedure(s) (LRB): ELECTRONIC HERNANDEZ PROG., PUMP- DRUG INFUS; W/ REPROGRAM & REFILL REQ (WRVU 0.9) (N/A) FLUOROSCOPY GUIDED NEEDLE PLACEMENT (WRVU 0.54) (N/A) INTRATHECAL PUMP REFILL PROCEDURE NOTE WITH REPROGRAMMING Primary Art Museum Docent: Cadence Eric MD ?? Cardiac Exercise Specialist: Darius Metcalf MD ?? Reason for Reprogramming: [...] no ?? Empty syringe concentration verified by engineering drawings checker: yes ?? If concentration of drug [...] instilled into the pump according to the ad operations specialist's directions without difficulty. Therewas no evidence of [...] of Cadence Eric MD Pain Management Center Physical Therapy Supervisor of Anesthesiology [facility] [employer] [address] [phone] / [facility] documented in this encounter Plan of Treatment Upcoming Encounters Date Type Department Care Team (Latest Contact Info) Description 04/06/2024 11:30 AM EST Hospital Encounter Outpatient [place] [address] Cadence Eric MD [facility] [place] [address] 04/06/2024 11:30 AM EST - 04/06/2024 12:50 PM EST Surgery Outpatient [place] [address] Cadence Eric MD [facility] [place] [address] IMPLANT NEUROSTIMULATOR ELECTRODES, PERIPHERAL NERVE (WRVU 5.76) 04/14/2024 2:30 PM EST Office Visit [place] [address] Cadence Eric MD [facility] [place] [address] Scheduled Procedures Name Priority Associated Diagnoses Date/Ti [...] Diagnosis Comments Fluoro Guide For Needle Placement (20452) 07/04/2022 2:57 PM EST Postlaminectomy syndrome of lumbar region Presence of intrathecal pump Anal Inf Vice President Of Sales W ReproRefil([id number]) 07/04/2022 2:57 PM EST Postlaminectomy syndrome of [...] right documented in this encounter Care Teams Photographer Portrait Relationship Specialty Start Date End Date Ja Ordaz MD [address] [place] [address] PCP - General Emergency Medicine 03/11/21 documented as of this encounter
--- OUTSIDE RECORDS SUMMARY | 2024-04-05 16:24 | XMS_ITS | Encounter Summary ---
Author Organization [facility] [place] [address] Care Team Providers Care Speech Language Pathologist Assistant Name Role Phone Ja Ordaz MD Primary Care Provider [phone] Reason for Visit * Reason Onset Date Comments Results 02/11/2022 Encounter Details Date Type Department Care Team (Late st Contact Info) Description 02/11/2022 Telephone [place] [id number] Clinic, Dr Sanchez Team None Results Social History Tobacco Use Types Packs/Day Years [...] * Telephone Encounter - Iris Le - 02/11/2022 1:47 PM EDT Called and spoke with Etelvina in regards to left knee pain. She states she has a painful popping sensation on the lateral aspect of her knee when she flexes and extends the knee. She has delacruz pain worsewhen standing. This pain started on 01/22/22 at her last visit. She has been doing pool therapy and it seems to be getting worse. She is not using any assistive devices and I recommended she use her cane. She states she is very stiff, and is working on range of motion and stretching her glutes, hamstrings and calf. I did let her know that her x-rays were normal and showed no sign of fracture or problems with her total knee replacement according to the radiology report. Most likely her pain is due to soft tissueand she will continue to work on this. She will call / follow up with us if it worsens or changes. No other questions or concerns at this time. * Telephone Encounter - Moshe Rivera - 02/11/2022 12:29 PM EDTSummary: XR Results & Pain Who is calling? Etelvina Best call back number: [phone] Best time to call back between 8:00 am & 5:00 pm: Anytime Can we leave a message? yes What study is patient calling about? XR Per [facility] the study was done: Yes - 02/07/22 Per [facility] the results are final: yes Etelvina would like someone to call her to discuss her XR results. She also states that her knee started popping a couple days ago, continues to pop and it is very painful. Etelvina states she can barely walk. Your message will be forwarded to the clinical care team for review. documented in this encounter Plan of Treatment Upcoming Encounters Date Type Department Care Team (Latest Contact Info) Description 04/06/2024 11:30 AM EST Hospital Encounter [place] [address] Cadence Eric MD [facility] [place] [address] 04/06/2024 11:30 AM EST - 04/06/2024 12:50 PM EST Surgery [place] [address] Cadence Eric MD [facility] [place] [address] IMPLANT NEUROSTIMULATOR ELECTRODES, PERIPHERAL NERVE (WRVU 5.76) 04/14/2024 2:30 PM EST Office Visit [facility] [place] [address] Cadence Eric MD [facility] [place] [address] Scheduled Procedures Name Priority Associated Diagnoses Date/Ti [...] on filedocumented in this encounter Care Teams Speech Language Pathologist Assistant Relationship Specialty Start Date End Date Ja Ordaz MD [address] [place] [address] PCP - General Emergency Medicine 03/11/21 documented as of this encounter
--- OUTSIDE RECORDS SUMMARY | 2024-04-05 16:24 | XMS_ITS | Encounter Summary ---
Author Organization [facility] [place] [address] Care Team Providers Care Guest Service Aide Name Role Phone Ja Ordaz MD Primary Care Provider [phone] Encounter Details Date Type Department Care Team (Late st Contact Info) Description 04/22/2022 Telephone [place] [phone] Etelvina Bishop RN Social History Tobacco Use Types Packs/Day [...] Telephone Encounter - Etelvina Bishop RN - 04/22/2022 8:54 AM EST Out going return call to Etelvina after she left the message that she received a call from someone telling her that they were going to do home pump refills. Etelvina states that she has Dogs and is concernedabout sterility and potential difficulty getting pump access. Etelvina said she wants to continue coming [place] [facility] [place]. I did explain that [facility] does home pump refills all over the country and are very good and well known. Etelvina states she wants her pump refilled at [facility]. I told Etelvina I would forward her message on to those working on this. documented in this encounter Plan of Treatment Upcoming Encounters Date Type Department Care Team (Latest Contact Info) Description 04/06/2024 11:30 AM EST Hospital Encounter [place] [address] Cadence Eric MD [facility] [place] [address] 04/06/2024 11:30 AM EST - 04/06/2024 12:50 PM EST Surgery [place] [address] Cadence Eric MD [facility] [place] [address] IMPLANT NEUROSTIMULATOR ELECTRODES, PERIPHERAL NERVE (WRVU 5.76) 04/14/2024 2:30 PM EST Office Visit [place] [address] Cadence Eric MD [facility] [place] [address] Scheduled Procedures Name Priority Associated Diagnoses Date/Ti [...] on filedocumented in this encounter Care Teams Guest Service Aide Relationship Specialty Start Date End Date Ja Ordaz MD [address] [place] [id number] PCP - General Emergency Medicine 11/1/21 documented as of this encounter
--- OUTSIDE RECORDS SUMMARY | 2024-04-05 16:24 | XMS_ITS | Encounter Summary ---
Author Organization [facility] [place] [address] Care Team Providers Care Engineering Program Manager Name Role Phone Ja Ordaz MD Primary Care Provider [phone] Reason for Referral * Consultation (Routine) - Closed Specialty Diagnoses / Procedures Referred By Cindy wooten Referred To Contact Gastroenterology Diagnoses Health maintenance examination Ja Ordaz MD [address] [place] [address] [facility] Endoscopy [address] [place] [address] Referral ID Status Reason Start Date Expiration Date V isits Requested Visits Authorized [id number] Closed Surgical PCP Updated and/or Approved 09/03/2022 09/03/2023 6 6 Encounter Details Date Type Department Care Team (Latest Contact Info) Description 09/03/2022 Transcribe Orders eDH Incoming Referrals [phone] Ja Ordaz MD [address] [place] [address] Health maintenance examination Social History Tobacco Use Types Packs/Day Years [...] AM EST Hospital Encounter [place]patient [place] [address] Cadence Eric MD [facility] [place] [address] 04/06/2024 11:30 AM EST - 04/06/2024 12:50 PM EST Surgery [place]patient [place] [address] Cadence Eric MD [facility] [place] [address] IMPLANT NEUROSTIMULATOR ELECTRODES, PERIPHERAL NERVE (WRVU 5.76) 04/14/2024 2:30 PM EST Office Visit [place] [address] Cadence Eric MD 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 Neuropathic pain COLONOSCOPY,SCREENING (WRVU 3.26) Health maintenance examination-screening colo Scheduled Referrals Name Type Priority Associated Diagnoses Orde r Schedule REFERRAL TO COLONOSCOPY PROCEDURE Outpatient Referral Routine Health maintenance examination Ordered: 09/03/2022 documented as of this encounter Visit Diagnoses Diagnosis Health maintenance examination Unspecified general medical examination Saphenous neuralgia, right documented in this encounter Care Teams Engineering Program Manager Relationship Specialty Start Date End Date Ja Ordaz MD [address] [place] [address] PCP - General Emergency Medicine 03/11/21 documented as of this encounter
--- OUTSIDE RECORDS SUMMARY | 2024-04-05 16:24 | XMS_ITS | Encounter Summary ---
Author Organization [facility] Address [facility] [place] [address] Care Team Providers Care Electric Scoop Operator Name Role Phone Ja Ordaz MD Primary Care Provider [phone] Encounter Details Date Type Department Care Team (Latest Contact Info) Description 10/22/2022 Travel Social History Tobacco Use Types Packs/Day [...] AM EST Hospital Encounter [place]patient [place] [address] Cadence Eric MD [facility] [place] [address] 04/06/2024 11:30 AM EST - 04/06/2024 12:50 PM EST Surgery [place]patient [place] [phone] Cadence Eric MD [facility] [place] [address] IMPLANT NEUROSTIMULATOR ELECTRODES, PERIPHERAL NERVE (WRVU 5.76) 04/14/2024 2:30 PM EST Office Visit [facility] [place] [address] Cadence Eric MD [facility] [place] [address] Scheduled Procedures Name Priority Associated Diagnoses Date/Ti [...] on filedocumented in this encounter Care Teams Electric Scoop Operator Relationship Specialty Start Date End Date Ja Ordaz MD [address] [place] [id number] PCP - General Emergency Medicine 03/11/21 documented as of this encounter
--- OUTSIDE RECORDS SUMMARY | 2024-04-05 16:24 | XMS_ITS | Encounter Summary ---
Author Organization [facility] [place] [address] Care Team Providers Care Computer Operations Manager Name Role Phone Ja Ordaz MD Primary Care Provider [phone] Reason for Visit * Auth/Cert (Routine) Specialty Diagnoses / Procedures Referred By Cindy t Referred To Contact Diagnoses post laminectomy Procedures PRO ELECTRONIC PUMP ANALYSIS W REPROGRAMMING AND REFILL BY /SUPERVISOR PILE DRIVING PRG FLUORO GUIDE FOR NEEDLE PLACEMENT ELECTRONIC HERNANDEZ PROG., PUMP- DRUG INFUS; W/ REPROGRAM & REFILL REQ MD (WRVU 0.9) FLUOROSCOPY GUIDED NEEDLE PLACEMENT (WRVU 0.54) Cadence Eric MD [facility] [place] [address] [facility] Referral ID Status Reason Start Date Expiration Date Visits Re quested Visits Authorized [id number] 1 1 Encounter Details Date Type Department Care Team (Late st Contact Info) Description 07/04/2022 3:00 PM EST Ancillary [place] [phone] Cadence Eric MD [facility] [place] [address] Social History Tobacco Use Types Packs/Day Years [...] AM EST Hospital Encounter [place]patient [place] [address] Cadence Eric MD [facility] [place] [address] 04/06/2024 11:30 AM EST - 04/06/2024 12:50 PM EST Surgery [place]patient [place] [address] Cadence Eric MD [facility] [place] [address] IMPLANT NEUROSTIMULATOR ELECTRODES, PERIPHERAL NERVE (WRVU 5.76) 04/14/2024 2:30 PM EST Office Visit [facility] [place] [address] Cadence Eric MD [facility] [place] [address] Scheduled Procedures Name Priority Associated Diagnoses Date/Ti [...] STORAGE ONLY PAIN CLINIC C ARM Routine 07/04/2022 3:14 PM EST documented in this encounter Results * Film Library- Storage Only pain Clinic C-Arm (07/04/2022 3:14 PM EST) Narrative RAD - 07/04/2022 3:14 PM EST See PACS for result report. Cadence Eric MD IMG FILM LIBRARY ORDERABLES [place], [place] documented in this encounter Visit Diagnoses Not on filedocumented in this encounter Care Teams Computer Operations Manager Relationship Specialty Start Date End Date Ja Ordaz MD [address] [place] [address] PCP - General Emergency Medicine 03/11/21 documented as of this encounter
--- OUTSIDE RECORDS SUMMARY | 2024-04-05 16:24 | XMS_ITS | Encounter Summary ---
Author Organization [facility] Address [facility] [place] [address] Care Team Providers Care Mail Truck Driver Name Role Phone Ja Ordaz MD Primary Care Provider [phone] Encounter Details Date Type Department Care Team (Late st Contact Info) Description 03/26/2022 External Results [place] [phone] Nicolas Erickson MD [facility] [place] [address] Social History Tobacco Use Types Packs/Day Years [...] AM EST Hospital Encounter [place] [phone] Cadence Eric MD [facility] [place] [address] 04/06/2024 11:30 AM EST - 04/06/2024 12:50 PM EST Surgery [place] [address] Cadence Eric MD [facility] [place] [address] IMPLANT NEUROSTIMULATOR ELECTRODES, PERIPHERAL NERVE (WRVU 5.76) 04/14/2024 2:30 PM EST Office Visit [place] [address] Cadence Eric MD [facility] [place] [address] Scheduled Procedures Name Priority Associated Diagnoses Date/Ti [...] Associated Diagnosis Comments INTRATHECAL PUMP REFILL Routine 03/12/2022 documented in this encounter Results * INTRATHECAL PUMP REFILL (03/12/2022) Nicolas Erickson MD PROCEDURE/MINOR SURG ICAL ORDERABLES documented in this encounter Visit Diagnoses Not on filedocumented in this encounter Care Teams Mail Truck Driver Relationship Specialty Start Date End Date Ja Ordaz MD [address] [place] [address] PCP - General Emergency Medicine 03/11/21 documented as of this encounter
--- OUTSIDE RECORDS SUMMARY | 2024-04-05 16:25 | XMS_ITS | Encounter Summary ---
Author Organization [facility] [place] [address] Care Team Providers Care Caustic Preparer Name Role Phone Ja Ordaz MD Primary Care Provider [phone] Encounter Details Date Type Department Care Team (Late st Contact Info) Description 09/18/2021 Telephone [place] [address] Melanie Ngo, RN Social History Tobacco Use Types Packs/Day [...] encounter Miscellaneous Notes * Telephone Encounter - Melanie Ngo RN - 09/18/2021 8:28 AM EDT Cover My Med Prior Auth [id number] for patients Hydromorphone script received a Favorable outcome forApproval. Melanie Ngo RN [facility] Ortho Team documented in this encounter Plan of Treatment Upcoming Encounters Date Type Department Care Team (Latest Contact Info) Description 04/06/2024 11:30 AM EST Hospital Encounter [place]patient [place] [address] Cadence Eric MD [facility] [place] [address] 04/06/2024 11:30 AM EST - 04/06/2024 12:50 PM EST Surgery [place] [address] Cadence Eric MD [facility] [place] [address] IMPLANT NEUROSTIMULATOR ELECTRODES, PERIPHERAL NERVE (WRVU 5.76) 04/14/2024 2:30 PM EST Office Visit [facility] [place] [address] Cadence Eric MD [facility] [place] [address] Scheduled Procedures Name Priority Associated Diagnoses Date/Ti [...] on filedocumented in this encounter Care Teams Caustic Preparer Relationship Specialty Start Date End Date Ja Ordaz MD [address] [place] [address] PCP - General Emergency Medicine 03/11/21 documented as of this encounter
--- OUTSIDE RECORDS SUMMARY | 2024-04-05 16:25 | XMS_ITS | Encounter Summary ---
Author Organization [facility] Address [facility] [place] [address] Care Team Providers Care Litigation Associate Name Role Phone Ja Ordaz MD Primary Care Provider [phone] Reason for Visit * Reason Onset Date Comments Other 09/23/2021 Encounter Details Date Type Department Care Team (Late st Contact Info) Description 09/23/2021 [place] [address] Wayne Sanchez MD [facility] [address] S/P TKR (total knee replacement), left Social [...] encounter Miscellaneous Notes * Telephone Encounter - Lindsay Villafuerte - 09/23/2021 10:24 AM EDT Name of person calling: Etelvina Have you had Surgery?yes If so when?09/10/21 Who was the Surgeon?Dr. Sanchez What is the question: Patient states she went to ER and they put patient on keflex for an infectionin the surgical knee. She also states she was weaned off her pain meds too fast and she is in a lot of pain still. Knee is bleeding a little bit still through the strips. Please advise. Best number to reach the caller: [phone] documented in this encounter Plan of Treatment Upcoming Encounters Date Type Department Care Team (Latest Contact Info) Description 04/06/2024 11:30 AM EST Hospital Encounter [place]patient [place] [address] Cadence Eric MD [facility] [place] [address] 04/06/2024 11:30 AM EST - 04/06/2024 12:50 PM EST Surgery [place] [address] Cadence Eric MD [facility] [place] [address] IMPLANT NEUROSTIMULATOR ELECTRODES, PERIPHERAL NERVE (WRVU 5.76) 04/14/2024 2:30 PM EST Office Visit [place] [address] Cadence Eric MD [facility] [place] [address] Scheduled Procedures Name Priority Associated Diagnoses Date/Ti [...] right documented in this encounter Care Teams Litigation Associate Relationship Specialty Start Date End Date Ja Ordaz MD [address] [place] [address] PCP - General Emergency Medicine 03/11/21 documented as of this encounter
--- OUTSIDE RECORDS SUMMARY | 2024-04-05 16:25 | XMS_ITS | Encounter Summary ---
Author Organization [facility] Address [facility] [place] [address] Care Team Providers Care Subsea Engineer Name Role Phone Ja Ordaz MD Primary Care Provider [phone] Reason for Visit * Reason Onset Date Comments Other 09/19/2021 Encounter Details Date Type Department Care Team (Late st Contact Info) Description 09/19/2021 [place] [address] Wayne Sanchez MD [facility] [place] [address] Other Social History Tobacco Use Types Packs/Day [...] encounter Miscellaneous Notes * Telephone Encounter - Toan Gilliam - 09/19/2021 5:29 PM EDT Spoke with the patient after receiving guidance from Izzy Crane PA-C. Patient is unable to stay on her feet for more than 15 minutes before she starts to have blood pooling in the distal end of the dressing. She does have an appointment with visiting PT tomorrow and I advised her that they should be able to place some steri strips over the open areas to helper marble finisher in closure of the wound. She has 8 more dressings in her possession and I advised that she can wait to change the dressing until the area is more saturated. I asked that she follow up with our clinic early in the morning if she continues to have active bleeding. Patient states that she is not feeling 100% and has become pale and tired. No other s/s. I advised the patient that if she develops any new s/s or feels like she is going to pass out that she should go to the ED for further evaluation and definitive care. She verbalized understanding of these instructions. Patient appreciates the phone call and will follow up with our office tomorrow. * Telephone Encounter - Toan Gilliam - 09/19/2021 4:29 PM EDT Images from the original note were not included. * Telephone Encounter - Dyana Handy LPN - 09/19/2021 3:08 PM EDT Spoke with Etelvina who states that she is bleeding from her wound and she has had to change her dressing 4 times since discharge. Each time she changes the dressing, the wound seems to weep a bit more. No open areas to the incision. No juventino bleeding. Reviewed with Izzy Crane PA-C, who suggests changing the dressing and wrapping the leg with an jose bandage from mid thigh to mid calf. She would also like Etelvina to send a picture of the wound at the next dressing change. Etelvina verbalizes understanding and had no further questions at this time. * Telephone Encounter - Lindsay Villafuerte - 09/19/2021 2:21 PM EDT Who is calling?Marlee Best call back number: [phone] Best time to call back between 8:00 am & 5:00 pm: anytime Can we leave a message? yes When was your surgery? 09/10/21 Who was your surgeon? Dr. Sanchez What color is the drainage?Blood When did it start? Started in hospital a little bit- up today for 15 minutes and has been off and on but has started bleeding more Has it stopped? yes *IF patient states that they are actively bleeding or blood is pouring out of the incision immediately seek the assistance of an RN. Is there redness? no Is there a foul smell? no Is there swelling? no How many dressing changes have you had since your surgery? 3 Your message will be forwarded to the clinical care team for review. documented in this encounter Plan of Treatment Upcoming Encounters Date Type Department Care Team (Latest Contact Info) Description 04/06/2024 11:30 AM EST Hospital Encounter [place] [address] Cadence Eric MD [facility] [place] [address] 04/06/2024 11:30 AM EST - 04/06/2024 12:50 PM EST Surgery [place] [address] Cadence Eric MD [facility] [place] [address] IMPLANT NEUROSTIMULATOR ELECTRODES, PERIPHERAL NERVE (WRVU 5.76) 04/14/2024 2:30 PM EST Office Visit [place] [address] Cadence Eric MD [facility] [place] [address] Scheduled Procedures Name Priority Associated Diagnoses Date/Ti [...] on filedocumented in this encounter Care Teams Subsea Engineer Relationship Specialty Start Date End Date Ja Ordaz MD [address] [place] [address] PCP - General Emergency Medicine 03/11/21 documented as of this encounter
--- OUTSIDE RECORDS SUMMARY | 2024-04-05 16:25 | XMS_ITS | Encounter Summary ---
Author Organization [facility] Address [facility] [place] [address] Care Team Providers Care Soil Checker Name Role Phone Ja Ordaz MD Primary Care Provider [phone] Reason for Referral * Home Health Care (Routine) - Closed Specialty Diagnoses / Procedures Referred By Cindy wooten Referred To Contact Diagnoses S/P revision of total knee, left Lydia Sanchez MD [facility] [place] [address] Referral ID Status Reason Start Date Expiration Date V isits Requested Visits Authorized [id number] Closed Consult, Test & Treat 09/13/2021 03/12/2022 999 999 Reason for Visit * Auth/Cert Specialty Diagnoses / Procedures Referred By Cindy wooten Referred To Contact Diagnoses Presence of left artificial knee joint Pain in left knee Other chronic pain LEFT failed total knee replacement, LEFT KNEE Procedures PRO REVISE KNEE JOINT REPLACE, ALL PARTS @TOTAL KNEE REVISION ARTHROPLASTY, COMPLETE (WRVU 27.11) MODIFIER,GMK REVISION KNEE,MEDACTA Referral ID Status Reason Start Date Expiration Date Visits Re quested Visits Authorized [id number] 1 1 Encounter Details Date Type Department Care Team (Latest Contact Info) Description 09/10/2021 11:28 AM EDT - 09/14/2021 12:05 PM EDT Hospital Encounter [address] [place] [id number] Lydia Sanchez MD [facility] [place] [address] S/P revision of total knee, left (Primary Dx); Status post left knee replacement; Chronic pain of left knee; Left leg pain Discharge Disposition: Home with VNA Social History Tobacco Use Types Packs/Day Years [...] Sign Reading Time Taken Comments Blood Pressure 114/62 09/14/2021 7:23 AM EDT Pulse 59 09/10/2021 8:00 PM EDT Temperature 36.9 ??C (98.4 ??F) 09/14/2021 7:23 AM ED T Respiratory Rate 16 09/14/2021 7:23 AM EDT Oxygen Saturation 97% 09/14/2021 7:23 AM EDT Inhaled Oxygen Concentration - - Weight 108.4 kg (239 lb) 09/10/2021 11:48 AM EDT Height 152.4 cm (5') 09/10/2021 11:48 AM EDT Body Mass Index 46.68 09/10/2021 11:48 AM EDT documented in this encounter Discharge Summaries * Keisha Aparicio MD - 09/14/2021 7:48 AM EDT Discharge Summary Patient Name: Etelvina Willoughby Patient Age: 60 y.o. Language: Sami Race: White Ethnicity: Not nor Admit date: 09/10/2021 Discharge date and time: 09/14/2021 Attending Physician: Lydia Sanchez MD Discharge Physician: Lydia Sanchez MD Follow-up Recommendations for Providers: See discharge instructions for additional details. Future Appointments Date Time Provider Department Center 10/16/2021 10:15 AM [facility] DX ROOM 1 MH Xray [facility] Rad 10/16/2021 11:10 AM Clinic, Dr Sanchez Team [facility] ORTH 3D [facility] Inpatient Provider Contact Information: Lydia Sanchez MD Orthopedics: [phone] After hours and weekends, call [facility] [employer], , and have the Orthopedic resident paged. Discharge Diagnoses (Hospital Problems) and Secondary Diagnoses (Chronic Problems): Active Hospital Problems Diagnosis ??? S/P TKR (total knee replacement), left ??? Morbid obesity with BMI of 45.0-49.9, adult Resolved Hospital Problems No resolved problems to display. Active Non-Hospital Problems Diagnosis ??? Pain in joint, lower leg ??? Osteoarthritis of left knee ??? s/p Left Total Knee Arthroplasty - 03/29/2020 Dr. Jacobson ??? Presence of intrathecal pump ??? Anxiety and depression ??? HLD (hyperlipidemia) ??? Primary osteoarthritis of left knee ??? Morbid obesity ??? Chronic pain disorder ??? Chronic bilateral low back pain with bilateral sciatica ??? Chronic prescription opiate use ??? Allergic rhinitis ??? Acquired hypothyroidism ??? Postlaminectomy syndrome of lumbar region ??? Cervicalgia Operations/Major Procedures: 09/10/2021 Surgeon(s) and Role: * Lydia Sanchez MD - Primary * Faizan Mcdonald MD - Fellow * Rosa Maria, JENNY Sanchez - Physician Credit Administration Officer Procedure(s): @TOTAL KNEE REVISION ARTHROPLASTY, COMPLETE (WRVU 27.11) MODIFIER,GMK REVISION KNEE,MEDACTA History of Presentation: Etelvina Willoughby is a 60 y.o. female who underwent total knee arthroplasty on 03/29/2020. Unfortunatelyfollowing this, she had developed significant pain and was eventually worked up for and diagnosed with aseptic loosening of her components. An aspiration of the joint has been performed and there hasbeen no growth on extended 14 days cultures to rule out infection. ?? After discussing treatment options the patient desired to proceed with surgery. A detailed conversation regarding the risks and benefits of reimplantation total knee arthroplasty was had with the patient. The risks discussed included but were not limited to: bleeding (which may or may not require transfusion), infection, wound healing issues, deep venous thrombosis, pulmonary embolus, prosthetic failure, loosening, prosthetic fracture, femur, tibia or patella fracture, dislocation, leg-length inequality, persistent pain, medical complications (including cardiac, respiratory and neurologic complications), anaesthetic complications, and . ?? At this point in time Ms. Willoughby expressed a desire to proceed with an attempt at revising the jointand all of her questions were answered. Subsequent to this conversation, all of the patient???s questions were answered in great detail and informed consent was obtained for a left total knee arthroplasty revision. She received preoperative medical clearance and was felt optimized for surgery. Hospital Course: The patient was admitted via Same Day Surgery for the above operation. DVT prophylaxis: ASA 81mg BID for 30 days. Patient began rehab on POD#1 w/ weight bearing as tolerated of left leg remembering to use protection at all times for balance and protection. On POD#1 patient was voiding spontaneously. Wound inspected POD#1 found to be benign. Patient did have a bowel movement prior to discharge andwas passing flatus . By POD#4 the patient was medically stable and was cleared for safe discharge to home. OF NOTE: 1. POD#2 Hgb 8.9, down from 12.5 prior to surgery. Hemoglobin drop associated with anemia from a combination of acute blood loss from surgery and hemodilution as expected. No intervention necessary, patient asymptomatic. 2. Patient having drainage from distal portion of surgical closure. Patient wrapped in JOSE bandage and drainage slowed POD#3. 3. Patient having issues with pain management, multimodals liberalized and medication changed. Patient noted improved pain control. Vital Signs at Discharge: Weight: Wt Readings from Last 1 Encounters: 09/10/21 108.4 kg (239 lb) Height: Ht Readings from Last 1 Encounters: 09/10/21 152.4 cm (5') HC: HC Readings from Last 1 Encounters: No data found for HC BMI: Body mass index is 46.68 kg/m??. Last value Range last 24 hrs Temperature Temp: 36.9 ??C (98.4 ??F) Temp: [36.7 ??C (98.1 ??F)-37.1 ??C (98.8 ??F)] Heart Rate Heart Rate: 59 Heart Rate: -- Blood Pressure BP: 114/62 BP: (86-124)/(47-62) Respiratory Rate Resp: 16 Resp: [15-18] SpO2 SpO2: 97 % SpO2: [94 %-99 %] Art BP BP (Arterial Line): -- Functional and Cognitive Status: Patient mobilizing with assistance and FWW, cognitively intact at baseline mental status at time of discharge. Important Lab Data: Last 3 wbc, hgb, hct plt Recent Labs 09/13/21 1356 09/13/21 0337 09/12/21 033 WBC 7.9 9.2 13.0* HGB 8.7* 7.9* 8.9* HCT 26.7* 24.2* 27.1* PLATELET 295 249 273 Last 3 Lytes Recent Labs 09/13/21 03309/12/21 03309/11/21 0300 NA 132* 136 138 K 4.4 4.8 4.7 CL 99 104 105 CO2 24 24 23 BUN 16 16 12 CREATININE 0.72 0.86 0.93 Last 3 LFTs No results for input(s): AST, ALT, ALKPHOS, BILITOT, BILIDIR in the last 7068 hours. Last Ca, Mg, Phos Recent Labs 09/13/21 033 CALCIUM 8.3* Last 3 Coags Recent Labs 09/13/2133609/12/21 03309/11/21 0300 PT 16.7* 14.9* 13.0* INR 1.5 1.3 1.1 Last 3 ProBNP, Trop, CK No results for input(s): CK, TROPONINT, PROBNP in the last 168 hours. Last 3 Lipids No results for input(s): CHLPL, HDL, LDLCHOL, LDLDIRECT, TRIG in the last 7068 hours. Last 3 HgbA1C No results for input(s): HA1C in the last 7068 hours. Last CRP, SEDRATE Recent Labs 06/05/21 1519 CRP <3.0 SEDRATE 17 Studies: XR Knee 1-2 Views Left (Generic) Result Date: 09/11/2021 EXAMINATION: XR KNEE 1-2 VIEWS LEFT (GENERIC) CLINICAL HISTORY: postop AP/Lat - include whole implant TECHNIQUE: 2 views LEFT knee, 4 images COMPARISON: Radiographs of the left knee 06/05/2021 FINDINGS: Status post revised total left knee arthroplasty with new longstem femoral and tibial components and a constrained device. Hardware is intact with expected alignment. No periprosthetic fracture. There is soft tissue gas and edema surrounding the knee. Status post revised total left knee arthroplasty. No evidence of complication. Thank you for letting us participate in the care of this patient. If you are a health care provider and have any questions regarding this report, please contact the number below. For patients who have questions please contact the health account executive healthcare that requested your imaging first. Pending Studies and Lab Data at Discharge: * No orders in the log * Transfusions: No Discharge Conditions/Prognosis: Stable, awake, and alert. Mobilizing as noted above, pain controlled on oral medications. [facility] [place] [address] [address] [facility] [address] PHONE: [phone] FAX: [phone] Updated Allergies/ADRs: Allergies Allergen Reactions ??? Peanut Anaphylaxis ??? Peanut Oil Anaphylaxis [...] Tetracyclines Itching ??? Wool Itching and Rash Immunizations Given this Hospitalization: Immunization History Administered Date(s) Administered ??? Hepatitis A Vaccine, Adult 01/07/2019 ??? Influenza Vaccine PF, Quadrivalent 01/28/2017, 01/07/2019 ??? Influenza Vaccine PF, Seasonal, Injectible 02/12/2018, 01/07/2019, 02/16/2020 ??? Influenza Vaccine, Unspecified Formulation 01/23/2018 ??? Tdap Vaccine 09/05/2011, 10/24/2015 Discharge Medications: Your Medications New Medications Dose Details aspirin EC 81 mg Tbec Take 1 tablet by mouth 2 times daily for 30 days. 81 mg Quantity: 60 tablet Refills: 0 docusate sodium 100 mg Cap Commonly known as: Colace Take 2 capsules by mouth 2 times daily as needed for Constipation for up to 10 days. 200 mg Quantity: 20 capsule Refills: 0 gabapentin 300 mg Cap Commonly known as: Neurontin Take 1 capsule by mouth 3 times daily. 300 mg Quantity: 90 capsule Refills: 1 HYDROmorphone 4 mg Tab Commonly known as: Dilaudid Take 1-2 tablets by mouth every 4 hours as needed for Pain. 4-8 mg Quantity: 42 tablet Refills: 0 Lidocaine 4 % Ptmd Commonly known as: Salonpas (lidocaine) Apply 3 patches topically daily as needed. 3 patch Refills: 0 naproxen 500 mg Tab Commonly known as: NAPROSYN Take 1 tablet by mouth 2 times daily. 500 mg Quantity: 84 tablet Refills: 0 omeprazole 20 mg Cpdr Commonly known as: PriLOSEC Take 1 capsule by mouth daily for 42 days. 20 mg Quantity: 42 capsule Refills: 0 tiZANidine 2 mg Tab Commonly known as: Zanaflex Take 1 tablet by mouth 3 times daily as needed. 2 mg Quantity: 30 tablet Refills: 0 Continued medications with new dosing Dose Details acetaminophen 500 mg Tab Commonly known as: Tylenol Take 2 tablets by mouth every 8 hours. What changed: ?? how much to take ?? when to take this ?? reasons to take this 1,000 mg Refills: 0 fenofibrate 160 mg Tab Commonly known as: LOFIBRA Take 1 tablet by mouth nightly. What changed: ?? when to take this ?? additional instructions 160 mg Quantity: 90 tablet Refills: 1 levothyroxine 100 mcg Tab Commonly known as: Synthroid Take 1 tablet by mouth daily. PATIENT REQUESTS SYNTHROID(NOT GENERIC) What changed: when to take this 100 mcg Quantity: 90 tablet Refills: 1 senna-docusate 8.6-50 mg Tab Commonly known as: Pericolace Take 1 tablet by mouth daily. What changed: ?? when to take this ?? reasons to take this 1 tablet Refills: 0 Continued medications, unchanged Dose Details amoxicillin 500 mg Tab Commonly known as: AMOXIL Take 4 tablets by mouth See Admin Instructions. Please take 2000mg of Amoxicillin 1 hour prior to Dental Procedure 2,000 mg Quantity: 20 tablet Refills: 0 Bifidobacterium infantis 4 mg Cap Commonly known as: ALIGN Take by mouth daily. 2 gummies daily=4MG Refills: 0 citalopram 20 mg Tab Commonly known as: CeleXA Take 20 mg by mouth nightly. 20 mg Refills: 0 EPINEPHrine (pf) 1 mg/mL (1:1,000) Soln Inject as directed. Refills: 0 furosemide 20 mg Tab Commonly known as: Lasix Take 1 tablet by mouth daily as needed. 20 mg Quantity: 30 tablet Refills: 2 Morphine in D5W 1 mg/mL Resv Inject as directed. Has intrathecal pump with continuous rate and Has 5 preset prn boluses pt may give herself Refills: 0 multivitamin with minerals Tab Commonly known as: One-A-Day Take 1 tablet by mouth daily. 1 tablet Refills: 0 Narcan 4 mg/actuation [place] instill 1 spray in 1 NOSTRIL if needed for opioid overdose may re... (REFER TO PRESCRIPTION NOTES). Generic drug: naloxone Refills: 0 Os-Nico 500 + D3 500 mg-15 mcg (600 unit) Tab Take 1 tablet by mouth Daily. Generic drug: calcium carbonate-vitamin D3 1 tablet Refills: 0 STOPPED Medications oxyCODONE 10 mg Tab Commonly known as: ROXICODONE Smoking Status at Discharge: Social History Tobacco Use Smoking Status Former Smoker ??? Packs/day: 0.25 ??? Types: Cigarettes ??? Quit date: 09/23/1991 ??? Years since quittin.9 Smokeless Tobacco Never Used Instructions for Rehab Providers or PCP: See below Instructions Given to Patient at Discharge: Patient Instructions Activity: 1. Your weight-bearing status is - weight bearing as tolerated of left leg. 2. Remember to use a walker or crutches at all times for balance and protection. Your physical therapist may progress you to using a cane when appropriate. 3. Flexion AND extension are important to work on at home. You should NOT place a pillow under youroperative knee. To help with extension you can place a pillow under your heel or lower leg or placed lengthwise along the operative leg. Again DO NOT place a pillow under the operated knee for comfort. Anticoagulation: Aspirin - You are being discharged on enteric-coated Aspirin 81mg by mouth twice aday. Continue this for 30 days. After your dose on 10/11 stop the Aspirin, unless you are told otherwise by your Orthopedic surgeon. Take this medication with food or large amounts (240 mL) of water ormilk to minimize GI irritation. Diet: Resume your usual diet but increase your intake of fluids and fiber while you are on narcoticpain meds to prevent constipation. Driving: None until you are cleared to do so by your Orthopedic surgeon. You should not drive whileyou are on narcotic pain meds as they can affect your judgment and reaction time. Call your surgeonwith any questions/concerns. Medications: 1. The pain medication you are on can cause constipation so increase your intake of fluids and fiber while you are on them. The stool softener, Pericolace, that has been prescribed can also be taken to facilitate a bowel movement. You can also take an odwm-wdf-yephocf medication, Miralax if needed to combat constipation. 2. If you need a renewal on your narcotic pain medication, you need to give the Orthopedic clinic enough time to process your request. This can take up to three days, so plan accordingly. Orthopaedics will be covering your acute pain needs (2 weeks), after this time peroid you will resume prescription management with your Primary Care Provider. 3. Continue acetaminophen (Tylenol) 1,000mg every 8 hours around the clock until (for ten days after your surgery). This can be effective in controlling pain along with your other medications. After that you can take Tylenol as needed per package insert. Do not take more than 3,000mg of acetaminophen in a 24 hour period. 4. You have been discharged on a short acting narcotic, dilaudid . You will be on this medication for a limited period of time only. Take the smallest dose possible to control your pain. As your painimproves take smaller, less frequent doses. You may break the tablet to achieve a smaller dose. 5. You can also try an azxx-ivu-vahcpag patch that is used for pain called a lidocaine patch (SalonPas4%). This can be found in your local pharmacy, ask your pharmacist help you locate this. Use per package instructions, leave the patch on for 12 hours and take off for 12 hours. 6. You have been discharge on a medication to help with muscle spasms, Tizanidine. You will be on this medication for a limited period of time only. Take only as directed. 7. You are being discharged on gabapentin (Neurontin), a non-narcotic medication. This medication will help with your pain and allow you to sleep better. This medication needs to be decreased over a period of time before stopping it, speak with your doctor before stopping this medication. 8. You are being discharged on prescription strength naproxen (Aleve). This medication is a type ofnonsteroidal anti-inflammatory (NSAID). This will help with your pain and inflammation. Take this twice a day for the next 6 weeks. If you no longer are requiring the narcotic pain medication you maychange the way you take the prescribed naproxen and instead take twice a day as needed. 9. You are being discharged on a proton pump inhibitor (Prilosec OTC). This will decrease stomach irritation that may be caused by NSAIDs. Take this daily for the next 6 weeks while you are on the NSAID. Shower (internal sutures): 1. You can shower but remember your activity limitations and always have a chair available for balance and protection. DO NOT submerge the dressing/incision. 2. (Mepilex) Do not let water run over the operative dressing. If it becomes wet lightly pat the dressing dry. DO NOT submerge the incision. When this operative dressing is removed you can let water gently run over the incision. Wound (Mepilex): 1. You do NOT have any external juanito or sutures in place. Your sutures are internal and will be absorbed over time. Keep your JOSE wrap in place for 48 hours after discharge. After 48 hours (on 09/16) you may remove the JOSE wrap 2. You have a Mepilex dressing in place. Do not lift the edge of the Mepilex dressing to inspect the incision, it will not re-adhere. Remove your operative dressing 7 days after your surgery (09/17). When it is removed you can leave the incision open to air or cover it with a light dressing. Some patients have an additional item called Prineo on their skin. If you have this it will appear as a mesh dressing directly over the incision. Please leave this in place until your follow up with orthopedics. 3. If you have lots of drainage when you get home (and it is before 09/17), remove the operative dressing and replace it with dry sterile gauze. Continue with daily dressing changes (and as needed) until the drainage stops, then remove the dressing and leave the incision open to air or lightly covered. [facility]: Remember that ICE and elevation are very important after surgery to help decrease swelling and control pain. Use ICE for 20-30 minutes at a time and keep your leg elevated as much as possible. Call your doctor ([phone]) if you develop: 1. Fever greater than 100.5 2. Severe nausea or vomiting 3. Increasing pain that is not controlled by pain medications 4. Increasing redness, swelling, or drainage from incisions 5. Change in sensation FOLLOW-UP APPOINTMENTS: 1. You will have follow-up appointments at [facility] as indicated below in Future Appointment and Orders. 2. You will need to have x-rays prior to your follow-up appointment on 10/16. Please come to Radiology, desk , 1 hour BEFORE that appointment for those x-rays. Future Appointments Date Time Provider Department Center 10/16/2021 10:15 AM [facility] DX ROOM 1 Xray [facility] Rad 10/16/2021 11:10 AM Clinic, Dr Sanchez Team [facility] ORTH 3D [facility] If you have questions or concerns: Thursday through Thursday, 8 AM - 5 PM, please call Dr. Lydia Sanchez MD's office at . If it is after 5 PM, the weekend, or holidays, please call and ask to speak with theOrthopedic resident on-call. General Instructions None Future Appointments and Orders Future Appointments and Orders Future Appointments Provider Department Dept Phone 10/16/2021 10:15 AM [facility] DX ROOM 1 XRay at [facility] Arrive at: [facility] [phone] Please go to [facility]T ([place] Location). 10/16/2021 11:10 AM Clinic, Dr Sanchez Team Orthopaedics at [facility] Arrive at: [facility] [phone] Future Orders Complete By Expires Referral to Home Health [REF34 Custom] As directed Process Instructions: If no progress note charted, please enter Clinical details in comments. Scheduling Instructions: Comments: Please evaluate Etelvina Willoughby for admission [place] [address] (home) Date of : 1960 Inpatient DOCUMENTATION FOR VNA SERVICES (INCLUDING PATIENTS WITH MEDICARE COVERAGE BEING DISCHARGED HOME WITH VNA SERVICES AND/OR HOSPICE SERVICES) PATIENT'S LOCATION: Etelvina Willoughby Discharge to own home: [place] [address] Manager Fire's Name: self/patient In discussion with the attending physician, it is certified that this patient is under their care and that they, or a nurse practitioner, clinical nurse specialist or physician's case assistant who is working directly with them, had a face to face encounter that meets the physician face to face encounter requirements with this patient on 09/11/2021 The encounter with the patient was in whole, or in part, for the following medical condition, whichis the primary reason for home health care services: s/p L TKA. In discussion with the primary medical team, it is certified that, based on their findings, the indicated services are medically necessary and appropriate for home health services. HOME HEALTH AGENCY: [facility] [address] [place] [address] PHONE: [phone] FAX: [phone] Group Home(SN) eval if indicated on admission visit DVT Prophylaxis: ASA Activity: WBAT Closure: Resorbable sutures Dressing: Mepilex Do not lift the edge of the mepilex dressing to observe the incision; this dressing needs to stay in place until 7 days after surgery. Continue PT rehab for balance, endurance, joint mobility, ROM, Strength, TKA protocol FOR MEDICARE ONLY: (please delete this section if not Medicare) In discussion with the attending physician, it is certified that the clinical findings support thatthis patient is homebound ;i.e. absences from home require considerable and taxing effort due to:requires assistance of another to navigate community surfaces. Please note that any additional orders needs or changes will need to be obtained from this patient's PCP: Ja Ordaz MD [address] [place] [address] All VNA agencies which cover patient's residence area have been reviewed, either verbally or in writing, and patient/family have chosen the indicated home health agency. Questions: Disciplines Requested: Physical Therapy Primary Care Provider: Ja Ordaz MD [phone] Discharge References/Attachments None documented in this encounter Discharge Instructions * Patient Instructions* Keisha Aparicio MD - 09/11/2021 7:11 AM EDT Activity: 1. Your weight-bearing status is - weight bearing as tolerated of left leg. 2. Remember to use a walker or crutches at all times for balance and protection. Your physical therapist may progress you to using a cane when appropriate. 3. Flexion AND extension are important to work on at home. You should NOT place a pillow under youroperative knee. To help with extension you can place a pillow under your heel or lower leg or placed lengthwise along the operative leg. Again DO NOT place a pillow under the operated knee for comfort. Anticoagulation: Aspirin - You are being discharged on enteric-coated Aspirin 81mg by mouth twice aday. Continue this for 30 days. After your dose on 10/11 stop the Aspirin, unless you are told otherwise by your Orthopedic surgeon. Take this medication with food or large amounts (240 mL) of water ormilk to minimize GI irritation. Diet: Resume your usual diet but increase your intake of fluids and fiber while you are on narcoticpain meds to prevent constipation. Driving: None until you are cleared to do so by your Orthopedic surgeon. You should not drive whileyou are on narcotic pain meds as they can affect your judgment and reaction time. Call your surgeonwith any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 Mobility:??Ambulating with cane??independently??outside the home, FWW inside the home. Hasbeen sleeping in recliner chair Equipment at home:??FWW, cane Fall history:??None Supports: and sister to assist as needed ?? Precautions/Special Considerations:??Fall Risk Lines:??PIV Activity Orders:??WBAT LLE Diet:??Regular Mobility and Positioning Recommendations: ?? Pt. to utilize FWW and SBA for ambulation and transfers with nursing. ?? Please encourage up to chair for meal times as able. ?? Pt encouraged to ambulate frequently with staff, getting into the bathroom for toileting and walking out in the iyer >/= 3 times daily as able. ?? Subjective: I've been walking to the bathroom a lot and I feel good walking, I won't pass out on you today Objective: Patient seen for physical therapy and demonstrated the following: Pain: it's really sore today L knee, anterior knee, patella Vital Signs: Pt not on masimo monitoring - presumed stable on RA Cognition: alert, oriented, anxious Skin: jose bandaging to L knee due to prior bleeding but stable at time of PT intervention Self Care: toileted independently, performed pericare independently, stood to wash hands at sink without supports Functional Mobility: Bed Mobility: Supine to Sit: independent with leg cia agent Sit to Supine: independent with increased time and effort; leg cia agent not utilized Other: able to reposition self independently in bed PRN use of leg cia agent to LLE Transfers: Sit to Stand: modified independent with FWW Stand to Sit: independent Chair to Bed: stand step with FWW, modified independent Other: toilet transfer independent with walker Patient educated in, and cued throughout, functional mobility to ensure safe and complete activities. Gait Training: Gait: Distance: 75 ft Device Used: FWW Level of Assist: modified independent Gait Comments: no overt LOB, slow gait, initial step-to pattern, progressed to swing through with manual assist via pulling walk in front. Cues for heel strike on LLE to enhanced knee extension Stairs: 3 steps ascend and descend with single L railing. Able to perform stairs using cane in R hand and single railing on L. VCs for technique with adequate carryover. Supervised/SBA. Step-to pattern Patient educated in, and cued throughout, to improve gait pattern, body mechanics, safety, and independence during activity. Balance: Sitting Static: good Sitting Dynamic: good Standing Static: fair Standing Dynamic / Gait: fair, benefits from AD Exercises: Verbally reviewed therex program and walking program for home Education: patient educated on role of therapy, safety, importance of participation, importance of mobility, positioning, therex, ROM, use of ice, cryocuff, bed mobility, transfers, use of walker, stair negotiation, ambulation, and DC planning, with fair understanding/demonstration. Patient status, treatment, and mobility recommendations discussed with nursing. Pt left supine in bed, with all needs met, with call reid in reach and with bed alarm active and cryocuff on LE knee following visit. Team Communication: communication with nursing staff pre/post session regarding readiness and response to therapy intervention. Assessment: Etelvina Willoughby was seen today for physical therapy treatment session for continuation of POC. Pt continues to be anxious at times, though responds well to positive reinforcement and encouragement during activity. Today she was able to perform bed mobility, transfers, ambulation, and stairs without physical assistance/hands on. Based on current presentation, pt has met necessary acute PTgoals as needed to return home. No further acute PT needs identified. Should follow up and progresswith home health PT. Discharge Recommendations: Based on the current findings, Anticipated Discharge Disposition (PT): home with home health, home with supervision when medically ready for hospital discharge. Discharge recommendation is based on the patient's current physical impairments, prior functional status, potential to return to prior level of function, patient motivation, reported home support, potential for functional gains, current level of endurance, reported home environment and anticipated trajectory of progress and may change based on patient progress during this hospitalization. Consult Recommendations: No other consults recommended at this time. Equipment Needs: Anticipated Equipment Needs at Discharge (PT): None Transportation Needs: Car Cleared Physical Therapy? YES Consult service will continue to follow patient. X PT signing off. Recommendations above, page if further consultation required. Physical Therapy Goals: Goals MET/Discontinued as of 09/13/21 unless otherwise noted ?? Goals: To be achieved by??09/15/21 ?? 1. Pt. to demonstrate knowledge of safety limitations and precautions and will appropriately request assistance for functional activities and to mobilize. (MET 5/5) 2. Pt. to demonstrate understanding of appropriate exercises. (MET 5/5) 3. Pt. to perform bed mobility??independently (vs sleep in recliner) (MET 5/5) 4. Pt. to perform??all??transfers with supervision??using FWW.?? (MET 5/5) 5. Pt. to ambulate 100??feet with supervision??using FWW. (ONGOING with home PT) 6. Pt. to ambulate up/down??4??step/stairs using two hand hold??on left rail with SBA (side stepping), vs single rail and cane (MET 5/5) ?? Plan: Therapy Frequency (PT): Monitor for therapy interventions as outlined in initial evaluation. Patient agrees with plan as stated. Time IN / OUT: 4134-3901 Total Minutes, Physical Therapy: 25 Billing Code: x2 TEF Thank you for this consult. Radha Chilel, PT Pager: [phone] Physical Therapy Inpatient Rehabilitation Department * Faizan Mcdonald MD - 09/13/2021 6:51 AM EDT ORTHOPAEDIC SURGERY INPATIENT PROGRESS NOTE Patient Name: Etelvina Willoughby Age: 60 y.o. Surgery/Issue: Left Total Knee Arthroplasty Attending: Daniel Date of surgery: 09/10/2021 SUBJECTIVE / INTERVAL HISTORY: Mrs Willoughby is doing well again this am. ELSY overnight. No new sx. Tolerating PO intake and voiding. Did have some bleeding at her distal incision into the mepilex, which was replaced and shes nervous about her hemoglobin. Will work with PT again today - walked 50 ft yesterday and likely DC home afterward today vs tomorrow. FOCUSED REVIEW OF SYSTEMS: as above. Active Hospital Problems Diagnosis ??? S/P TKR (total knee replacement), left ??? Morbid obesity with BMI of 45.0-49.9, adult Resolved Hospital Problems No resolved problems to display. Active Non-Hospital Problems Diagnosis ??? Pain in joint, lower leg ??? Osteoarthritis of left knee ??? s/p Left Total Knee Arthroplasty - 03/29/2020 Dr. Jacobson ??? Presence of intrathecal pump ??? Anxiety and depression ??? HLD (hyperlipidemia) ??? Primary osteoarthritis of left knee ??? Morbid obesity ??? Chronic pain disorder ??? Chronic bilateral low back pain with bilateral sciatica ??? Chronic prescription opiate use ??? Allergic rhinitis ??? Acquired hypothyroidism ??? Postlaminectomy syndrome of lumbar region ??? Cervicalgia MEDICATIONS: ??? docusate sodium (Colace) capsule 200 mg ??? naproxen (Naprosyn) tablet 250 mg ??? HYDROmorphone (Dilaudid) tablet 4-8 mg ??? gabapentin (Neurontin) capsule 300 mg ??? tiZANidine (Zanaflex) tablet 6 mg ??? fenofibrate micronized (Lofibra) capsule 67 mg ??? acetaminophen (Tylenol) tablet 1,000 mg ??? lidocaine (Lidoderm) 5% patch 3 patch AND lidocaine (Lidoderm) topical patch REMOVAL ??? BUpivacaine-EPINEPHrine (Marcaine-epiNEPHrine) 0.25 %-1:200,000 injection ??? cloNIDine (pf) (Duraclon) (100 mcg/mL) Epidural injection ??? ketorolac (Toradol) (30 mg/mL) injection ??? povidone-iodine (Betadine Ophthalmic Prep) 5 % ophthalmic solution ??? citalopram (CeleXA) tablet 20 mg ??? levothyroxine (Synthroid) tablet 100 mcg ??? sodium chloride 0.9 % (flush) (BD PosiFlush Normal Saline 0.9) flush 5 mL ??? sodium chloride 0.9 % (flush) (BD PosiFlush Normal Saline 0.9) flush 5-20 mL ??? lidocaine (Xylocaine) 1% (10 mg/mL) injection 3 mg ??? bisacodyl EC (Dulcolax) tablet 10 mg ??? bisacodyL (Dulcolax) suppository 10 mg ??? pantoprazole EC (Protonix) tablet 20 mg ??? sodium chloride 0.9% infusion ??? ondansetron (Zofran) tablet 4 mg OR ondansetron (pf) (Zofran) (2 mg/mL) injection 4 mg ??? warfarin (COUMADIN) daily order reminder ??? sodium chloride 0.9% 1,000 mL (09/12/21 1903) OBJECTIVE: Temp: [36.4 ??C (97.5 ??F)-36.8 ??C (98.2 ??F)] Resp: [14-16] BP: (90-113)/(46-57) Intake/Output Summary (Last 24 hours) at 09/13/2021 0651 Last data filed at 09/13/2021 0313 Gross per 24 hour Intake 858 ml Output 300 ml Net 558 ml Body mass index is 46.68 kg/m??. Exam: General: NAD, awake/alert CV: RRR assessed peripherally Resp: Breathing comfortably on RA LLE: Dressing with strikethrough distally - JOSE wrap in place, c/d/i Motor intact to EHL, FHL, TA. Sensation intact in foot/calf. Brisk capillary refill distally. Lab Results Component Value Date NA 132 (L) 09/13/2021 K 4.4 09/13/2021 CL 99 09/13/2021 CO2 24 09/13/2021 BUN 16 09/13/2021 CREATININE 0.72 09/13/2021 GLUCOSE 90 09/13/2021 GLUCFASTING 164 (H) 10/17/2016 CALCIUM 8.3 (L) 09/13/2021 Lab Results Component Value Date WBC 9.2 09/13/2021 HGB 7.9 (L) 09/13/2021 HCT 24.2 (L) 09/13/2021 MCV 88.0 09/13/2021 PLATELET 249 09/13/2021 Lab Results Component Value Date INR 1.5 09/13/2021 ASSESSMENT / PLAN: Etelvina Willoughby is a 60 y.o. female 3 Days Post-Op s/p L TKA. Progressing well withstable vitals. Acute blood loss anemia - Hb to 7.9 from 8.9 - stable clinically - will CTM. Stable strikethrough at mepilex covered with JOSE wrap - will leave jose wrap for 48 hours then replace mepilex before DC. Given her concern for bleeding she would like to opt out of PEPPER and transition to ASA. Discussed that this wasn't terribly unreasonable, despite subtherapeutic INR, and that we would oblige. Overall doing well. Will work on pain control and work with PT today and assess DC potential - likely tomorrow after repeat Hb check. Activity: WBAT Closure: Resorbable sutures Dressing: Mepilex Drain: NA Anticoagulation: PEPPER (WARFARIN) DC'd - transition to ASA 81 BID x 30d Antibiotics: periop cefazolin Consults: PT/OT Dispo: pending PT/OT eval Follow-up: As scheduled Faizan Mcdonald MD 09/13/2021 Future Appointments Date Time Provider Department Center 10/16/2021 10:15 AM [facility] DX ROOM 1 Xray [facility] Rad 10/16/2021 11:10 AM Clinic, Dr Sanchez Team [facility] [place] ORTH 3D [facility] [place] * Ivan Kuhn RN - 09/13/2021 4:20 AM EDT OUTCOME EVALUATION NOTE: OUTCOME SUMMARY: Pt. A/Ox4, no c/o SOB, n/v, chest pain, numbness/tingling. VSS throughout shift w/ low BP at beginning of shift in 90s/40s, 1 L bolus LR given w/good effect. will continue to monitor. Pain controled well with scheduled and PRN meds. See MAR. IV on L leaking replaced on R. Voiding in bathroom w/SBA and FWW. LLE incision site w/small amounts of dried drainage, wrapped w/jose. Swelling to LLE. Pt using intrathecal pump w/0.2mg morphine bolus as needed. PRN zanaflex given 1x. PLAN MOVING FORWARD: PT/OT Pain control I/O D/c planning / teaching Monitor surgical site Q4 neuro vasc INDIVIDUALIZED FALL PREVENTION INTERVENTIONS: Patient-specific fall risk factors per assessment: [current deficits]: Hospital environment, recentsurgery, medications, pain, IV, tubing, generalized weakness. Assistance [level of assistance required for transfers and ambulation]: SBA w/FWW Supervision [direct monitoring required during toileting and ADLs]: Eyes on Surveillance [continuous indirect monitoring]: Bed alarm/chair alarm, Masimo, rounding, room near nurses station. Call reid within reach. Patient-specific fall prevention interventions for sensory deficits provided, if applicable: N/a * Jose Antonio Houston Jr., RN - 09/12/2021 4:43 PM EDT OUTCOME EVALUATION NOTE: OUTCOME SUMMARY: Patient A&O x 4, VSS on RA. Patient pain management now under control with 4-8 mg Dilaudid, 6 mg of tizanidine, and scheduled medications, see eMAR. LLE required x2 Jose wrap dressing changes withchanged AG Mepilex, due to strike through. Patient up to the bathroom with one assist and front wheeled walker. Swelling to left knee noted. Ice bags applied to knee. Patient also using her intrathecal pump intermittently. PT/OT able to work with patient. If pain controlled overnight, possible DC tomorrow. PLAN MOVING FORWARD: PT/OT Pain control Monitor for bleeding from surgical site Discharge planning INDIVIDUALIZED FALL PREVENTION INTERVENTIONS: Patient-specific fall risk factors per assessment: [current deficits]: Surgery, pain, pain medication, generalized weakness, and hospital setting Assistance [level of assistance required for transfers and ambulation]: OOB with one assist and front wheeled walker Supervision [direct monitoring required during toileting and ADLs]: Within arms reach Surveillance [continuous indirect monitoring]: Masimo, purposeful rounding and nurse knowledge exchange * Radha Chilel, PT - 09/12/2021 1:53 PM EDT Physical Therapy Note Treatment Number PT: 2 Patient profile: Etelvina Willoughby is a 60 y.o. female admitted on 09/10/[address] Lydia Sanchez MD for revision L TKA. Social History: Home set-up:??Patient lives in??1-level mobile home with ??(off x1 week to assist) Bathroom Set-up:??Tub/shower with tub transfer bench Stairs:??5 LESLEY, railing on the left Baseline Mobility:??Ambulating with cane??independently??outside the home, FWW inside the home. Hasbeen sleeping in recliner chair Equipment at home:??FWW, cane Fall history:??None Supports: and sister to assist as needed ?? Precautions/Special Considerations:??Fall Risk Lines:??PIV Activity Orders:??WBAT LLE Diet:??Regular Mobility and Positioning Recommendations: ?? Pt. to utilize FWW and 1 assist for ambulation and transfers with nursing. ?? Please encourage up to chair for meal times as able. ?? Pt encouraged to ambulate frequently with staff, getting into the bathroom for toileting and walking out in the iyer >/= 3 times daily as able. ?? Subjective: my heart is racing [pt heart rate at 79 bpms] Objective: Patient seen for physical therapy and demonstrated the following: Pain: Number Location At rest none With activity mild L knee Vital Signs: SpO2 (RA) 96% HR 77-90 bpm BP 113/51mmHg at rest supine pre activity; 103/57mmHg sitting at EOB; 103/55mmHg after activity returned to supine Cognition: alert, oriented, anxious Skin: jose bandaging to L knee due to prior bleeding but stable at time of PT intervention Self Care: N/A Functional Mobility: Bed Mobility: Supine to Sit: independent Sit to Supine: independent with increased time and effort; leg cia agent provided Transfers: Sit to Stand: supervised with FWW Stand to Sit: independent Chair to Bed: stand step with FWW, supervised Other: none Patient educated in, and cued throughout, functional mobility to ensure safe and complete activities. Gait Training: Gait: Distance: 50 ft Device Used: FWW Level of Assist: supervised Gait Comments: no overt LOB, slow gait, progressed form step-to to swing through pattern with VCs. Cues for heel strike on LLE to enhanced knee extension Stairs: 3 steps ascend and descend with single L railing. Attempted side stepping however pt with increasedanxiety. Able to perform stairs using cane in R hand and single railing on L. VCs for technique with adequate carryover. Supervised/SBA. Step-to pattern Patient educated in, and cued throughout, to improve gait pattern, body mechanics, safety, and independence during activity. Balance: Sitting Static: good Sitting Dynamic: good Standing Static: fair Standing Dynamic / Gait: fair, benefits from AD Exercises: X10 hamstring sets, quadriceps sets, gluteal sets, adductor sets, short arc quad, long arc quad, ankle pumps, seated knee flexion - handout provided Education: patient educated on role of therapy, safety, importance of participation, importance of mobility, positioning, therex, ROM, use of ice, cryocuff, bed mobility, transfers, use of walker, stair negotiation, ambulation, and DC planning, with fair understanding/demonstration. Patient status, treatment, and mobility recommendations discussed with nursing. Pt left supine in bed, with all needs met, with call reid in reach and with bed alarm active and cryocuff on LE knee following visit. Team Communication: communication with nursing staff pre/post session regarding readiness and response to therapy intervention. Assessment: Etelvina Aponte Khalif was seen today for physical therapy treatment session for continuation of POC. Pt continues to endorse dizziness and lightheadedness with upright activity, with some hypotension but mostly stable. Pt with improved motor control and sensation to LLE, resulting in improved AROM. Able to tolerate further distance ambulation, and stair negotiation today. Pt continues to be mos tly limited by anxiety, and disregulates quickly, but otherwise has met acute PT goals and is mobilizing at a level adequately to return home. Recommend home PT follow up and assistance from family as able. Will continue to follow up if remains admitted to hospital setting, otherwise is cleared from PT standpoint to return home. Pt will benefit from ongoing therapeutic interventions to achieve therapy goals. Discharge Recommendations: Based on the current findings, Anticipated Discharge Disposition (PT): home with home health, home with supervision when medically ready for hospital discharge. Discharge recommendation is based on the patient's current physical impairments, prior functional status, potential to return to prior level of function, patient motivation, reported home support, potential for functional gains, current level of endurance, reported home environment and anticipated trajectory of progress and may change based on patient progress during this hospitalization. Consult Recommendations: No other consults recommended at this time. Equipment Needs: Anticipated Equipment Needs at Discharge (PT): None Transportation Needs: Car Cleared Physical Therapy? YES - but will follow up if remains hospitalized X Consult service will continue to follow patient. PT signing off. Recommendations above, page if further consultation required. Physical Therapy Goals: Goals ongoing as of 09/12/21 unless otherwise noted ?? Goals: To be achieved by??09/15/21 ?? 1. Pt. to demonstrate knowledge of safety limitations and precautions and will appropriately request assistance for functional activities and to mobilize. (MET 5/5) 2. Pt. to demonstrate understanding of appropriate exercises. (MET 5/5) 3. Pt. to perform bed mobility??independently (vs sleep in recliner) (MET 5/5) 4. Pt. to perform??all??transfers with supervision??using FWW.?? (MET 5/5) 5. Pt. to ambulate 100??feet with supervision??using FWW. (ONGOING) 6. Pt. to ambulate up/down??4??step/stairs using two hand hold??on left rail with SBA (side stepping), vs single rail and cane (MET 5/5) ?? Plan: Therapy Frequency (PT): 1-2 more times for therapy interventions as outlined in initial evaluation. Patient agrees with plan as stated. Time IN / OUT: 4417-7977 Total Minutes, Physical Therapy: 40 Billing Code: x2 TEF Thank you for this consult. Radha Chilel, PT Pager: [phone] Physical Therapy Inpatient Rehabilitation Department * Jarocho Shirley - 09/12/2021 1:44 PM EDT [facility] Encounter Note Patient Name: Etelvina Willoughby : [id number] MR#: [id number] Admit Date: 09/10/2021 11:28 AM Hospital Day 2 days Narrative: Visited to introduce and assess acceptance of [facility] services.Pt was not available as medical staff was there and I will visit another time. Assessment: Intervention and Outcome: Follow-up: Time in Direct Care: Jarocho Shirley 09/12/2021 * Faizan Mcdonald MD - 09/12/2021 6:27 AM EDT ORTHOPAEDIC SURGERY INPATIENT PROGRESS NOTE Patient Name: Etelvina Willoughby Age: 60 y.o. Surgery/Issue: Left Total Knee Arthroplasty Attending: Daniel Date of surgery: 09/10/2021 SUBJECTIVE / INTERVAL HISTORY: Mrs Willoughby is doing well again this am. ELSY overnight. No new sx. Tolerating PO intake and voiding. Will work with PT again today - mobilized to commode yesterday - and eval DC potential. FOCUSED REVIEW OF SYSTEMS: as above. Active Hospital Problems Diagnosis S/P TKR (total knee replacement), left Morbid obesity with BMI of 45.0-49.9, adult Resolved Hospital Problems No resolved problems to display. Active Non-Hospital Problems Diagnosis Pain in joint, lower leg Osteoarthritis of left knee s/p Left Total Knee Arthroplasty - 03/29/2020 Dr. Jacobson Presence of intrathecal pump Anxiety and depression HLD (hyperlipidemia) Primary osteoarthritis of left knee Morbid obesity Chronic pain disorder Chronic bilateral low back pain with bilateral sciatica Chronic prescription opiate use Allergic rhinitis Acquired hypothyroidism Postlaminectomy syndrome of lumbar region Cervicalgia MEDICATIONS: acetaminophen (Tylenol) tablet 1,000 mg lidocaine (Lidoderm) 5% patch 3 patch AND lidocaine (Lidoderm) topical patch REMOVAL tiZANidine (Zanaflex) tablet 4 mg HYDROmorphone (Dilaudid) tablet 4-8 mg BUpivacaine-EPINEPHrine (Marcaine-epiNEPHrine) 0.25 %-1:200,000 injection cloNIDine (pf) (Duraclon) (100 mcg/mL) Epidural injection ketorolac (Toradol) (30 mg/mL) injection povidone-iodine (Betadine Ophthalmic Prep) 5 % ophthalmic solution citalopram (CeleXA) tablet 20 mg fenofibrate micronized (Lofibra) capsule 200 mg levothyroxine (Synthroid) tablet 100 mcg sodium chloride 0.9 % (flush) (BD PosiFlush Normal Saline 0.9) flush 5 mL sodium chloride 0.9 % (flush) (BD PosiFlush Normal Saline 0.9) flush 5-20 mL lidocaine (Xylocaine) 1% (10 mg/mL) injection 3 mg polyethylene glycoL (Miralax) packet 17 g senna-docusate (Pericolace) 8.6-50 mg per tablet 2 tablet bisacodyl EC (Dulcolax) tablet 10 mg bisacodyL (Dulcolax) suppository 10 mg ketorolac (Toradol) (30 mg/mL) injection 15 mg pantoprazole EC (Protonix) tablet 20 mg sodium chloride 0.9% infusion ondansetron (Zofran) tablet 4 mg OR ondansetron (pf) (Zofran) (2 mg/mL) injection 4 mg warfarin (COUMADIN) daily order reminder sodium chloride 0.9% Stopped (09/11/21 0400) OBJECTIVE: Temp: [36.5 ??C (97.7 ??F)-37 ??C (98.6 ??F)] Resp: [16-18] BP: (87-126)/(44-66) Intake/Output Summary (Last 24 hours) at 09/12/2021 0627 Last data filed at 09/12/2021 0554 Gross per 24 hour Intake 700 ml Output 875 ml Net -175 ml Body mass index is 46.68 kg/m??. Exam: General: NAD, awake/alert CV: RRR assessed peripherally Resp: Breathing comfortably on RA LLE: Dressing c/d/i. In cryocuff. Motor intact to EHL, FHL, TA. Sensation intact in foot/calf. Brisk capillary refill distally. Lab Results Component Value Date NA 136 09/12/2021 K 4.8 09/12/2021 CL 104 09/12/2021 CO2 24 09/12/2021 BUN 16 09/12/2021 CREATININE 0.86 09/12/2021 GLUCOSE 126 09/12/2021 GLUCFASTING 164 (H) 10/17/2016 CALCIUM 8.7 09/12/2021 Lab Results Component Value Date WBC 13.0 (H) 09/12/2021 HGB 8.9 (L) 09/12/2021 HCT 27.1 (L) 09/12/2021 MCV 87.7 09/12/2021 PLATELET 273 09/12/2021 Lab Results Component Value Date INR 1.3 09/12/2021 ASSESSMENT / PLAN: Etelvina Willoughby is a 60 y.o. female 2 Days Post-Op s/p L TKA. Progressing well withstable vitals. Acute blood loss anemia to Hb 8.9 - stable clinically - will CTM. Will work on pain control and work with PT today and assess DC potential - likely home today vs tomorrow. Activity: WBAT Closure: Resorbable sutures Dressing: Mepilex Drain: NA Anticoagulation: PEPPER Study and Warfarin (goal INR ~2) for 30 days Antibiotics: periop cefazolin Consults: PT/OT Dispo: pending PT/OT eval Follow-up: As scheduled Faizan Mcdonald MD 09/12/2021 Future Appointments Date Time Provider Department Center 10/16/2021 10:15 AM [facility] DX ROOM 1 Xray [facility] Rad 10/16/2021 11:10 AM Clinic, Dr Sanchez Team [facility] ORTH 3D [facility] * Shira Almanzar RN - 09/12/2021 5:27 AM EDT OUTCOME EVALUATION NOTE: OUTCOME SUMMARY: Jose wrap dressing over AG Mepilex remained clean, dry and intact. Patient up to the bathroom with one assist and front wheeled walker. Swelling to left knee noted. Ice bags applied to knee as patientfelt Cryocuff was more uncomfortable. SBP 87 and 92 for 0330 VS. MD notified and in to assess. H/H this am was 8.9/27.1 (was 10/30.6 yesterday). Patient medicated with Dilaudid 8 mg every 4 hours prnpain. Patient also using her intrathecal pump intermittently. Patient able to sleep after pain medication given. When awake rating her pain 5-8/10. Patient brought her own Synthroid and agreed to having it identified by Pharmacy prior to administration but refused to have medication stored in medication bin because it was not given back to her at discharge for a previous admission and she states she had adverse symptoms from missing several doses of the medication. PLAN MOVING FORWARD: PT/OT Pain control Monitor for bleeding from surgical site Discharge planning INDIVIDUALIZED FALL PREVENTION INTERVENTIONS: Patient-specific fall risk factors per assessment: [current deficits]: Surgery, pain, pain medication, generalized weakness, and hospital setting Assistance [level of assistance required for transfers and ambulation]: OOB with one assist and front wheeled walker Supervision [direct monitoring required during toileting and ADLs]: Within arms reach Surveillance [continuous indirect monitoring]: Masimo, purposeful rounding and nurse knowledge exchange Patient-specific fall prevention interventions for sensory deficits provided, if applicable: CPG GOAL OUTCOME EVALUATION: * Miesha Mcclain RN - 09/11/2021 3:07 PM EDT OUTCOME EVALUATION NOTE: OUTCOME SUMMARY: Patient arrived from PACU @ 1400. A/0X4, VSS, complaining for minimal pain in knee. Tolerating foodand drinks. Cryo cuff on. Patient OOB when needed. Worked with PT in PACU. Patient able to manage Intrathecal pump independently. Resting in between care. No further events occurred. Will continue tomonitor. PLAN MOVING FORWARD: PT, work on stairs Pain management INDIVIDUALIZED FALL PREVENTION INTERVENTIONS: Patient-specific fall risk factors per assessment: [current deficits]: Weakness, pain Assistance [level of assistance required for transfers and ambulation]: 1A w/ walker Supervision [direct monitoring required during toileting and ADLs]: Arms reach Surveillance [continuous indirect monitoring]: Masnazanino, room near nursing station, call reid within reach, purposeful rounding Patient-specific fall prevention interventions for sensory deficits provided, if applicable: [X] N/A CPG GOAL OUTCOME EVALUATION: * Faizan Serrano - 09/11/2021 3:04 PM EDT Regional Anesthesia Post-Procedure Assessment Spoke to patient in room 310-A. Peripheral nerve block resolved appropriately. No residual weakness/numbness/decreased sensation. No sign of infection at injection site. Tolerating POs appropriately.Patient very satisfied with nerve block. Faizan Serrano MD * Radha Chilel, PT - 09/11/2021 2:52 PM EDT Physical Therapy Evaluation Patient profile: Etelvina Willoughby is a 60 y.o. female admitted on 09/10/[address] Lydia Sanchez MD for revision L TKA. Patient with the following active problems: Past Medical History: Diagnosis Date ??? Allergic [...] hernia, with obstruction, without gangrene 06/24/2018 ??? intermediate frame tender current use of opiate analgesic Oxycodone 10 [...] 07/12/2018 ??? Ventral hernia 07/12/2018 ??? Vertigo Past Surgical History: Procedure Laterality Date ??? BACK SURGERY ??? IMPLANT OR REPLACE DEVICE FOR INTRATHECAL INFUSION, SUBQ RESERVOIR ??? JOINT REPLACEMENT Left knee ??? ORTHOPEDIC SURGERY ??? PRO COLONOSCOPY, BIOPSY 10/07/2011 COLONOSCOPY FLEXIBLE, WITH BX performed by NIKKI MAYORGA at [facility] ENDOSCOPY ??? PRO COLONOSCOPY, DIAGNOSTIC 09/23/2011 COLONOSCOPY, DIAGNOSTIC performed by NIKKI MAYORGA at [facility] ENDOSCOPY ??? PRO ELECTRONIC PUMP ANALYSIS W REPROGRAMMING AND REFILL BY /NAHID N/Radha 03/30/2019 ELECTRONIC HERNANDEZ PROG., PUMP- DRUG INFUS; W/ REPROGRAM & REFILL REQ (WRVU 0.9) performed by Karl Becker MD at [facility] PAIN MGMT MSO ??? PRO ELECTRONIC PUMP ANALYSIS W REPROGRAMMING AND REFILL BY /NAHID N/Radha 12/05/2019 ELECTRONIC HERNANDEZ PROG., PUMP- DRUG INFUS; W/ REPROGRAM & REFILL REQ (WRVU 0.9) performed by Karl Becker MD at [facility] PAIN MGMT MSO ??? PRO ELECTRONIC PUMP ANALYSIS W REPROGRAMMING AND REFILL BY JOSE N/Radha 03/12/2020 ELECTRONIC HERNANDEZ PROG., PUMP- DRUG INFUS; W/ REPROGRAM & REFILL REQ (WRVU 0.9) performed by Karl Becker MD at [facility] PAIN MGMT MSO ??? PRO ELECTRONIC PUMP ANALYSIS W REPROGRAMMING AND REFILL BY JOSE N/Radha 11/07/2020 ELECTRONIC HERNANDEZ PROG., PUMP- DRUG INFUS; W/ REPROGRAM & REFILL REQ (WRVU 0.9) performed by Karl Becker MD at [facility] PAIN MGMT MSO ??? PRO ELECTRONIC PUMP ANALYSIS W REPROGRAMMING AND REFILL BY JOSE N/Radha 03/13/2021 ELECTRONIC HERNANDEZ PROG., PUMP- DRUG INFUS; W/ REPROGRAM & REFILL REQ (WRVU 0.9) performed by Karl Becker MD at [facility] PAIN MGMT MSO ??? PRO IMP SPINAL CANAL CATH Midline 03/23/2019 IMPLANT, REV OR REP TUNNELED INTRATHACAL OR EPIDURAL CATHETER (WRVU 6.05) performed by Karl Becker MD at [facility] MAIN OR ??? PRO INSERT/ REPLACE INFUSN PUMP, PROGRAMMABLE Right 03/23/2019 IMPLANT OR REPLACE PROG. PUMP-DRUG INFUSION (WRVU 5.6) performed by Melani Darden MD at [facility] ADEEL ??? PRO LAP, CHOLECYSTECTOMY/GRAPH N/A 10/18/2016 LAPAROSCOPIC CHOLECYSTECTOMY WITH CHOLANGIOGRAM (WRVU 11.47) performed by Tasia Umaña MD at [facility] MAIN OR ??? PRO LAP, SURG, REPAIR, VENTRAL, UMBILICAL, SPIGELIAN/EPIGASTRIC HERNIA; INCARCERATED/STRANGULATED N/A 07/12/2018 LAPAROSCOPIC HERNIA, VENTRAL, INCARCERATED, W-WO MESH (WRVU 14.94) performed by Izzy Blanco MD at [facility] OR ??? PRO TOTAL KNEE ARTHROPLASTY Left 03/29/2020 TOTAL KNEE ARTHROPLASTY (WRVU 20.72) performed by Maykel Jacobson MD at [facility] MAIN OR ??? XR JOINT ASPIRATION - LARGE JOINT LEFT Left 07/03/2021 XR Fluoro Guided Joint Aspiration Large Left 07/03/2021 Brisa Florez, PA [facility] RAD XRAY Social History: Home set-up: Patient lives in 1-level mobile home with (off x1 week to assist) Bathroom Set-up: Tub/shower with tub transfer bench Stairs: 5 LESLEY, railing on the left Baseline Mobility: Ambulating with cane independently outside the home, FWW inside the home. Has been sleeping in recliner chair Equipment at home: FWW, cane Fall history: None Supports: and sister to assist as needed ?? Precautions/Special Considerations: Fall Risk Lines: PIV Activity Orders: WBAT LLE Diet: Regular Mobility and Positioning Recommendations: ?? Pt. to utilize FWW and 1 assist for ambulation and transfers with nursing. ?? Please encourage up to chair for meal times as able. ?? Pt encouraged to ambulate frequently with staff, getting into the bathroom for toileting and walking out in the iyer >/= 3 times daily as able. Subjective: ???I feel like this leg is going to give out on me?? Objective: Pt seen for initial evaluation today. Pain: Number Location At rest 4/10 L knee With activity 5/10 L knee Vital Signs: At Rest With Activity SpO2 (RA) 93% 95% BP (MAP) 117/57mmHg 126/63mmHg HR 64bpm 61bpm Mental Status: alert, oriented to person, place, and time; anxious, apprehensive Vision: WFLs, glasses worn Skin: dressing to anterior knee with expanding serosanguinous drainage - RN made aware and marked dressing. Drainage contained Musculoskeletal: ROM: poor AROM to L knee. Managing approx -30 deg - 30 deg (very limited knee flexion and extension) Strength: LLE with poor quad set, inability to perform LAQ or SAQ. Otherwise intact and WFLS Sensation: numbness and decreased sensation to light touch reported to L anterior delacruz/calf, otherwise intact Bed Mobility: Supine to Sit: HOB elevated, to L side EOB, supervised Sit to Supine: supervised Transfers: Sit to Stand: CGA with FWW Stand to Sit: CGA Bed to/from Commode: stand step with FWW and CGA Other: N/A Gait: Distance: 5 feet to/from commode Device Used: FWW Level of Assist: CGAx1 Gait Comments: decreased WB to LLE, increased use of UEs, decreased foot clearance bilaterally, shuffled gait Stairs: N/A Balance: Sitting Static: good Sitting Dynamic: good Standing Static: fair - able to stand to pull up underpants without UE support Standing Dynamic / Gait: Fair - see above, CGA without Ue support Exercises: LLE X10 ankle pumps, gluteal sets, quad sets. Unable to perform SAQ/LAQ. Will attempt further therex next sessions Self Care: See OT note for details Education: patient educated on role of therapy, safety, importance of participation, importance of mobility, positioning, therex, ROM, use of ice, cryocuff, bed mobility, transfers, use of walker, and DC planning, with fair understanding/demonstration. Patient status, treatment, and mobility recommendations discussed with nursing. Assessment: Etelvina Fay Willoughby was seen today for physical therapy evaluation. Pt presented with physicalimpairments of pain, ROM, strength, sensation, balance, fatigue, and activity tolerance, which are currently contributing to functional limitations. PT apprehensive and anxious to participate in mobility, but once engaged, able to mobilize needing only CGA with use of walker. Pt only able to tolerate transfer to/from commode this date, however anticipate will progress well pending ongoing pain control and management of anxiety. Pt with significantly limited AROM at this time, and will require extensive PT follow up once discharged. Expect pt to DC home with home PT when medically appropriate, with progression to outpatient once more mobile. Pt will benefit from skilled therapy services throughout hospitalization to promote safety, independence, and provide developmental support/caregiver education. Discharge Recommendations: Based on the current findings, Anticipated Discharge Disposition (PT): home with home health, home with supervision when medically ready for hospital discharge. Discharge recommendation is based on the patient's current physical impairments, prior functional status, potential to return to prior level of function, patient motivation, reported home support, potential for functional gains, current level of endurance, reported home environment and anticipated trajectory of progress and may change based on patient progress during this hospitalization. Consult Recommendations: No other consults recommended at this time. Equipment Needs: Anticipated Equipment Needs at Discharge (PT): None Transportation Needs: Car Cleared Physical Therapy? No (anticipate 1-2 more PT sessions prior to clearance) X Consult service will continue to follow patient. PT signing off. Recommendations above, page if further consultation required. Goals: To be achieved by 09/15/21 ?? 1. Pt. to demonstrate knowledge of safety limitations and precautions and will appropriately request assistance for functional activities and to mobilize. 2. Pt. to demonstrate understanding of appropriate exercises. 3. Pt. to perform bed mobility independently (vs sleep in recliner) 4. Pt. to perform all transfers with supervision using FWW. 5. Pt. to ambulate 100 feet with supervision using FWW. 6. Pt. to ambulate up/down 4 step/stairs using two hand hold on left rail with SBA (side stepping),vs single rail and cane ?? Plan: Therapy Frequency (PT): 1-3 more times for therapy including balance training, bed mobility training, gait training, home exercise program, patient/family education, stair training and transfertraining. Patient/family understand and agree with plan as stated above. 2017 PT Evaluation Code Rationale: ?? Diagnosis & Pertinent Co-Morbidities, personal factors, and present illness affecting Plan of Care: (see above); Additional personal factors or co- morbidities that impact plan: ?? Total # of Factors: (prior TKA, anxious, body habitus) 0 1-2 3+ x ?? Examination of body system impairments, functional limitations and behaviors, and/or participation restrictions. Addressing 1-2 elements Addressing 3 + elements Addressing 4 + elements x ?? Clinical presentation: See assessment above. (pain, lightheadedness, anxiety/apprehension) Stable/Uncomplicated Evolving/Fluctuating Symptoms Unstable/Unpredictable x ?? Clinical decision making of moderate complexity based on pt's functional performance as outlinedin this evaluation. Time IN / OUT: 6948-5860 Total Minutes, Physical Therapy: 30 Billing Code: Tanner Freitas Thank you for this consult. Radha Chilel, PT Pager: [phone] Physical Therapy Inpatient Rehabilitation Department * Mirella Cano RN - 09/11/2021 2:01 PM EDT The Patient has been provided a list of Home Health Agencies/DME vendors which serve their preferred geographic area. A letter describing our affiliations was reviewed with them and they were educated about their right to choose where referrals are placed. Patient requests referral to [facility] [place] [address] PHONE: [phone] FAX: [phone] Expected date of discharge: 09/12/2021 Referral routed to the Assistant Shift Supervisor for matching with agency/vendor and to provide any required information. * Gayatri Neely RN - 09/11/2021 11:35 AM EDT Break coverage. * Jaclyn Polanco RN - 09/11/2021 10:01 AM EDT 0700: assumed care of pt from Bryan DENNIS. VSS, LS clear on RA, small amount of drainage noted to distal aspect of L TKA dressing site. 0800: seen by provider, analgesics revised. 0945: pt working with PT/OT, drainage on dressing noted to have small amount of expantion, outlinedwith sharpy. *Discussed with JENNIFER Whiteside about switching from oxycodone to PO dilaudid for pain management. 1330: report given to SONNY Whiteside. 1400: departed unit with transport staff. * Faizan Mcdonald MD - 09/11/2021 6:05 AM EDT ORTHOPAEDIC SURGERY INPATIENT PROGRESS NOTE Patient Name: Etelvina Willoughby Age: 60 y.o. Surgery/Issue: Left Total Knee Arthroplasty Attending: Daniel Date of surgery: 09/10/2021 SUBJECTIVE / INTERVAL HISTORY: Mrs Willoughby is doing reasonably well this am although she notes a rough night for pain control. ELSY overnight. Denies CP, SOB, nausea, vomiting, numbness/weakness. Tolerating PO intake and voiding. Will work with PT today. FOCUSED REVIEW OF SYSTEMS: as above. Active Hospital Problems Diagnosis S/P TKR (total knee replacement), left Resolved Hospital Problems No resolved problems to display. Active Non-Hospital Problems Diagnosis Pain in joint, lower leg Osteoarthritis of left knee s/p Left Total Knee Arthroplasty - 03/29/2020 Dr. Jacobson Presence of intrathecal pump Anxiety and depression HLD (hyperlipidemia) Primary osteoarthritis of left knee Morbid obesity with BMI of 45.0-49.9, adult Morbid obesity Chronic pain disorder Chronic bilateral low back pain with bilateral sciatica Chronic prescription opiate use Allergic rhinitis Acquired hypothyroidism Postlaminectomy syndrome of lumbar region Cervicalgia MEDICATIONS: BUpivacaine-EPINEPHrine (Marcaine-epiNEPHrine) 0.25 %-1:200,000 injection cloNIDine (pf) (Duraclon) (100 mcg/mL) Epidural injection ketorolac (Toradol) (30 mg/mL) injection povidone-iodine (Betadine Ophthalmic Prep) 5 % ophthalmic solution citalopram (CeleXA) tablet 20 mg fenofibrate micronized (Lofibra) capsule 200 mg levothyroxine (Synthroid) tablet 100 mcg sodium chloride 0.9 % (flush) (BD PosiFlush Normal Saline 0.9) flush 5 mL sodium chloride 0.9 % (flush) (BD PosiFlush Normal Saline 0.9) flush 5-20 mL lidocaine (Xylocaine) 1% (10 mg/mL) injection 3 mg polyethylene glycoL (Miralax) packet 17 g senna-docusate (Pericolace) 8.6-50 mg per tablet 2 tablet bisacodyl EC (Dulcolax) tablet 10 mg bisacodyL (Dulcolax) suppository 10 mg acetaminophen (Tylenol) tablet 1,000 mg ketorolac (Toradol) (30 mg/mL) injection 15 mg dexamethasone (Decadron) tablet 4 mg pantoprazole EC (Protonix) tablet 20 mg sodium chloride 0.9% infusion ceFAZolin (Ancef) 2 g in dextrose 5% 100 mL infusion oxyCODONE (Roxicodone) tablet 5-15 mg ondansetron (Zofran) tablet 4 mg OR ondansetron (pf) (Zofran) (2 mg/mL) injection 4 mg warfarin (Coumadin) tablet 5 mg warfarin (COUMADIN) daily order reminder sodium chloride 0.9% injection 0-10 mL sodium chloride 0.9% Stopped (09/11/21 0400) OBJECTIVE: Temp: [36.3 ??C (97.3 ??F)-37 ??C (98.6 ??F)] Heart Rate: [54-72] Resp: [10-20] BP: (93-154)/(42-87) Intake/Output Summary (Last 24 hours) at 09/11/2021 0606 Last data filed at 09/11/2021 0300 Gross per 24 hour Intake 2438 ml Output 1850 ml Net 588 ml Body mass index is 46.68 kg/m??. Exam: General: NAD, awake/alert CV: RRR assessed peripherally Resp: Breathing comfortably on RA LLE: Dressing c/d/i. In cryocuff. Motor intact to EHL, FHL, TA. Sensation intact in foot/calf. Brisk capillary refill distally. Lab Results Component Value Date NA 138 09/11/2021 K 4.7 09/11/2021 CL 105 09/11/2021 CO2 23 09/11/2021 BUN 12 09/11/2021 CREATININE 0.93 09/11/2021 GLUCOSE 140 09/11/2021 GLUCFASTING 164 (H) 10/17/2016 CALCIUM 8.3 (L) 09/11/2021 Lab Results Component Value Date WBC 19.5 (H) 09/11/2021 HGB 10.0 (L) 09/11/2021 HCT 30.6 (L) 09/11/2021 MCV 87.9 09/11/2021 PLATELET 319 09/11/2021 Lab Results Component Value Date INR 1.1 09/11/2021 ASSESSMENT / PLAN: Etelvina Willoughby is a 60 y.o. female 1 Day Post-Op s/p L TKA. Progressing well with stable vitals. Will work on pain control and work with PT today and assess DC potential - likely home today vs tomorrow. Activity: WBAT Closure: Resorbable sutures Dressing: Mepilex Drain: NA Anticoagulation: PEPPER Study and Warfarin (goal INR ~2) for 30 days Antibiotics: periop cefazolin Consults: PT/OT Dispo: pending PT/OT eval Follow-up: As scheduled Faizan Mcdonald MD 09/11/2021 Future Appointments Date Time Provider Department Center 10/16/2021 10:15 AM [facility] DX ROOM 1 Xray [facility] Rad 10/16/2021 11:10 AM Clinic, Dr Sanchez Team [facility] ORTH 3D [facility] * Bryan Jackson RN - 09/11/2021 3:10 AM EDT 2129- Received report from Hilda DENNIS, Pt awake follows commands, VSS, Dressing dry intact, cryo-cuffin place, will monitor. 2300- Pt awake C/O left knee pain PO oxycodone 15mgs given, will monitor. 0300- AM labs sent off, VSS, Pt continues to feel pain to left knee, PO oxycodone 15 mgs given, will monitor. 0330- AM labs negative 0630- Pt C/O of pain PO Oxycodone given VSS, dressing unchanged, will report off to dayshift * Hilda Landis RN - 09/10/2021 5:43 PM EDT 1735) Patient into PACU from OR. Attached to monitors, alarms on and appropriate for patient. Duarte 1900) Patient meets PACU dc criteria. No room currently available and patient may be a boarder herein PACU overnight. Bladder scanned for 334 ml and patient says she feels wet. Linens wet. Patientplaced on bedpain for 400ml. Linens changed and patient cleaned up. Reece DENNIS 1930) Patient working on her dinner meal. Reece RN 2099) [facility] to [facility]. Reece RN documented in this encounter H&P Notes * Jaqui Silva MD - 09/10/2021 12:43 PM EDT Patient Name: Etelvina Willoughby Patient Age: 60 y.o. Birthdate: 1960 Admit date: 09/10/2021 Attending Physician: Lydia Sanchez MD 24-HOUR UPDATE Etelvina Willoughby was seen in SDP. No interval events or changes in health status since preoperative H+P(see EPIC). Denies angina/dyspnea/fevers or malaise within the last 14 days. All questions were answered. Stable for surgery as scheduled. documented in this encounter Miscellaneous Notes * Initial Assessments - Mirella Cano RN - 09/11/2021 4:01 PM EDT Office of Care Management Initial Assessment Mirella Cano RN reviewed record and discussed patient with Care Team. Source of Information: Team, bedside nurse, medical record, and Patient Introduced self/reviewed role; services accepted. Reason for Hospitalization: Surgery/Issue: Left Total Knee Arthroplasty Attending: Daniel Date of surgery: 09/10/2021 Covid Vaccination Status: Last COVID test: Lab Results Component Value Date COVID19 Not Detected 09/07/2021 Past medical History: Past Medical History: Diagnosis Date ??? Allergic [...] hernia, with obstruction, without gangrene 06/24/2018 ??? care home current use of opiate analgesic Oxycodone 10 [...] 07/12/2018 ??? Ventral hernia 07/12/2018 ??? Vertigo Hospitalizations Within the Past 30 Days: no previous admission in last 30 days Current Decision-Making Capacity: Self Advance Care Planning: Attempt Cardiopulmonary Resuscitation - Inpatient <no information> -Advanced Directive: (not on file) If AD's have not been completed spouse Josh Alyssa Willoughby would be surrogate decision maker per [place] surrogate decision making law. (Only good for 180 days) Any patient receiving care at [facility] must abide by [place] law. The hierarchy for surrogate decision making is: (a) Patient???s spouse, or civil union partner or common law spouse unless there is a divorce proceeding, separation agreement, or restraining order limiting that person???s relationship with the patient. (b) Any adult son or daughter of the patient. (c) Either parent of the patient. (d) Any adult brother or sister of the patient. (e) Any adult grandchild of the patient. (f) Any grandparent of the patient. (g) Any adult aunt, uncle, niece, or nephew of the patient. (h) A close friend of the patient. (i) The agent with financial power of dredge captain or a conservator appointed in accordance with RSA 464-A. (j) The guardian of the patient???s estate. Current Coping/Education/Information Needs: feels updated on the plan of care, coping well with hospital stay. Current Functional Ability: Assistive Person, Assistive Equipment Functional Status Prior to Admission: Assistive Equipment, Independent Prior ADLs & IADLs: Independent with all ADLs & IADLs Home Environment: Others in the home: spouse. Current Living Arrangements: home/apartment/condo. Accessibility Concerns:1 level house, 5 LESLEY. Resource / Environmental Concerns: Resource/Environmental Concerns: none Current DME: cane - straight, walker - standard Home Address confirmed as: [address] [place] [phone] Social & Family Supports: All names listed below confirmed with patient as current and correct Extended Emergency Contact Information Primary Emergency Contact: Josh Willoughby Address: [id number] [place] [address] of [facility] Mobile Relation: Spouse Secondary Emergency Contact: ENOCH WILLOUGHBY Mobile Relation: Grandchild Current Care Provided by: self Provides Primary Care For: no one Caregiver if needed: spouse Quality of Family relationships: supportive Community Resources being provided currently: none Behavioral Health History: pmh of anxiety and depression Substance Use/Abuse listed: Social History Tobacco Use Smoking Status Former Smoker ??? Packs/day: 0.25 ??? Types: Cigarettes ??? Quit date: 09/23/1991 ??? Years since quittin.9 Smokeless Tobacco Never Used 0 No problems reported 1-2 Low level 3-5 Moderate level 6-8 Substantial level 9- 10 Severe level 0 to 7 points: Low risk 8 to 15 points: Medium risk 16 to 19 points: High risk 20 to 40 points: Addiction likely Other Pertinent/Service Specific Information: patient has concerns about her previous hospital experience which she wants to be addressed, provided phone number for patient relations Health/Prescription Coverage: Primary Insurance: MEDICARE Payor: MEDICARE / Plan: MEDICARE PART A & B / Product Type: *No Product type* / Secondary Insurance: [employer] [facility] OOS Prescription Coverage: Yes Preferred Pharmacy: [id number] - [place], [place] - [address] [facility] [place] [address] [facility] [address] - [place] - [address] [facility] [place] [address] [facility] - [place], [place] - [address] [facility] [id number] [address] [facility] [address] - [place], [place] - [address] [facility] [address] [facility] [place], [place] - [address] [facility] [address] [facility] [address] [id number] - [place], [place] - [address] [facility] [address] [facility] [phone] [facility] - [place], [place] [address] [facility] [address] [facility] [address] [facility] [address] [facility] - [place], [place] - [address] [facility] [address] [place] [id number] [place] Status: Patient is a : Primary Care Provider: Ja Ordaz MD [phone] Patient/Caregiver Goals of Treatment: recovery post procedure Potential Needs for Transition of Care: home health care Agency Referrals: referrals in place Transportation: no concerns Transportation Anticipated: family or friend will provide Concerns to be Addressed: discharge planning Assessment: Patient is POD1 s/p Left Total Knee Arthroplasty, anticipated to discharge home with home health upon completion of hospital course. Plan: A member of the Care Management team will continue to monitor progress, follow for continuity of care and assist with transition of care planning. Office of Care Management Surgery Team Associate Director Mirella EPSTEIN RN [email or web address] Pager #[phone] * Initial Assessments - Gissell Gold OT - 09/11/2021 9:39 AM EDT Occupational Therapy Evaluation Patient profile: Etelvina Willoughby is a 60 y.o. female admitted on 09/10/2021 for scheduled orthopaedic procedure. Pt is now POD#1 s/p L TKA performed by Dr. Sanchez on day of admission. Past Medical History: Diagnosis Date ??? Allergic [...] hernia, with obstruction, without gangrene 06/24/2018 ??? care home current use of opiate analgesic Oxycodone 10 [...] 07/12/2018 ??? Ventral hernia 07/12/2018 ??? Vertigo Past Surgical History: Procedure Laterality Date ??? BACK SURGERY ??? IMPLANT OR REPLACE DEVICE FOR INTRATHECAL INFUSION, SUBQ RESERVOIR ??? JOINT REPLACEMENT Left knee ??? ORTHOPEDIC SURGERY ??? PRO COLONOSCOPY, BIOPSY 10/07/2011 COLONOSCOPY FLEXIBLE, WITH BX performed by NIKKI MAYORGA at [facility] ENDOSCOPY ??? PRO COLONOSCOPY, DIAGNOSTIC 09/23/2011 COLONOSCOPY, DIAGNOSTIC performed by NIKKI MAYORGA at [facility] ??? PRO ELECTRONIC PUMP ANALYSIS W REPROGRAMMING AND REFILL BY /NAHID N/A 03/30/2019 ELECTRONIC HERNANDEZ PROG., PUMP- DRUG INFUS; W/ REPROGRAM & REFILL REQ (WRVU 0.9) performed by Karl Becker MD at [facility] PAIN MGMT MSO ??? PRO ELECTRONIC PUMP ANALYSIS W REPROGRAMMING AND REFILL BY JOSE N/A 12/05/2019 ELECTRONIC HERNANDEZ PROG., PUMP- DRUG INFUS; W/ REPROGRAM & REFILL REQ (WRVU 0.9) performed by Karl Becker MD at [facility] PAIN [facility]MT MSO ??? PRO ELECTRONIC PUMP ANALYSIS W REPROGRAMMING AND REFILL BY JOSE N/Radha 03/12/2020 ELECTRONIC HERNANDEZ PROG., PUMP- DRUG INFUS; W/ REPROGRAM & REFILL REQ (WRVU 0.9) performed by Karl Becker MD at [facility] PAIN [facility]MT MSO ??? PRO ELECTRONIC PUMP ANALYSIS W REPROGRAMMING AND REFILL BY /NAHID N/A 11/07/2020 ELECTRONIC HERNANDEZ PROG., PUMP- DRUG INFUS; W/ REPROGRAM & REFILL REQ (WRVU 0.9) performed by Karl Becker MD at [facility] PAIN [facility] MSO ??? PRO ELECTRONIC PUMP ANALYSIS W REPROGRAMMING AND REFILL BY JOSE N/A 03/13/2021 ELECTRONIC HERNANDEZ PROG., PUMP- DRUG INFUS; W/ REPROGRAM & REFILL REQ (WRVU 0.9) performed by Karl Becker MD at [facility] PAIN MGMT MSO ??? PRO IMP SPINAL CANAL CATH Midline 03/23/2019 IMPLANT, REV OR REP TUNNELED INTRATHACAL OR EPIDURAL CATHETER (WRVU 6.05) performed by Karl Becker MD at [facility] MA[facility] OR ??? PRO INSERT/ REPLACE INFUSN PUMP, PROGRAMMABLE Right 03/23/2019 IMPLANT OR REPLACE PROG. PUMP-DRUG INFUSION (WRVU 5.6) performed by Melani Darden MD at [facility] ADEEL ??? PRO LAP, CHOLECYSTECTOMY/GRAPH N/A 10/18/2016 LAPAROSCOPIC CHOLECYSTECTOMY WITH CHOLANGIOGRAM (WRVU 11.47) performed by Tasia Umaña MD at [facility] MA[facility] OR ??? PRO LAP, SURG, REPAIR, VENTRAL, UMBILICAL, SPIGELIAN/EPIGASTRIC HERNIA; INCARCERATED/STRANGULATED N/A 07/12/2018 LAPAROSCOPIC HERNIA, VENTRAL, INCARCERATED, W-WO MESH (WRVU 14.94) performed by Izzy Blanco MD at [facility] MA[facility] OR ??? PRO TOTAL KNEE ARTHROPLASTY Left 03/29/2020 TOTAL KNEE ARTHROPLASTY (WRVU 20.72) performed by Maykel Jacobson MD at [facility] MA[facility] OR ??? XR JOINT ASPIRATION - LARGE JOINT LEFT Left 07/03/2021 XR Fluoro Guided Joint Aspiration Large Left 07/03/2021 Brisa Florez, PA [facility] X[facility] Social History: Patient lives with her , x2 small dogs, and cat in a single level house with 5STE and railing on L side. Utilizes a tub/shower combo with chair, regular height toilet, and sleeps in a flat bed. works but the pt reported he is taking time off to help around the house. DME: FWW, cane Baseline ADL/Mobility: Mod I mobility with cane in the community / FWW in the house. I ADLs, I driving, shares IADLs with . Pt reported falls in the past 6 months but did not specify the amount. She does not work - on disability. Precautions/Special Considerations: Fall risk, PIV, WBAT L LE Subjective: I love this blanket, it is so soft. If you feel a rough spot on it, it is just pudding Objective: Seen today for OT evaluation. Cognitive Status/Behavior: ?? Behavior / Mood: alert, cooperative and slightly aprehensive regarding mobility ?? Alert and oriented to: person, place, time and situation ?? Follows commands: multi step, 100% of the time and encouragement ?? Attention: WFL and distractible but easily redirectable ?? Safety awareness: WFL, fully aware of deficits and good safety precautions Vision & Perception: ?? WNL/WFL ?? 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 Communication: WFL tangential but circular Range of motion, strength, coordination: Hand dominance: right Bilateral UEs are within functional limitations for AROM and strength LE limitations: WBAT L LE Sensation: Endorses nerve block still in place with minimal sensation down L LE Activities of Daily Living: Self-feeding: I with finishing breakfast sitting upright in bed Grooming: I application of Deoderant sitting EOB with good dynamic balance and crossing midline Dressing: Min A lacing underwear onto b/i LE sitting on the commode, able to complete pant hike standing and SBA from the therapist. I doffing gown and donning dress sitting on the commode Bathing: Recommend SBA for completion of sponge bathing in sitting as evidence by her current AROM,strength, and coordination Toileting: Completed all aspects of toileting with S-CG from the therapist (S radha hygiene, SBA clothing mgmt, CG transfer) with use of bedside commode Functional Mobility: Supine to sit: SBA with Hob >40* Sit to stand: CG from both EOB/commode with FWW and cues for hand placement Ambulation: CG with FWW ~7' total between bed>commode>HOB, no LOB and increased encouragementfor initiating steps d/t fear of falling Stand to sit: CG onto both EOB/commode with use of the armrests Sit to supine: SBA with HOB <30*, able to raise L LE onto the bed with use of b/i UE Balance: Sitting balance: Good Standing balance: Fair + Vitals: Pre Mob Post Mob Blood Pressure 117/57 126/63 Pain: Pt endorsing 4/10 pain at rest in her L knee - reported her pain was increasing while mobilizing but unable to provide a formal pain level when mobilizing Skin: Quarter size sanguinous drainage noted on the distal aspect of the bandage, notable increase in size post mobility - RN aware and outlined drainage site Education: patient have been educated on Role of occupational therapy/rehabilitation, Transfers, Assistive device/technique, ADL, Positioning, Safety, Functional Mobility, Activity pacing/Energy conservation, Balance, Recommendations and Discharge planning and verbalizes and demonstrates understanding. Patient status, treatment, and mobility recommendations discussed with nursing. Assessment: Pt has been seen for occupational therapy evaluation. Etelvina Willoughby presents with the following performance skill deficits and client factors: increased pain, decreased activity tolerance,decreased strength, decreased sitting/standing balance, precautions/bracing, compromised mobility status and coping. These performance deficits have led to activity limitations and participation restrictions in the following areas of occupation: dressing, bathing, toileting, transfers/mobility, rest/sleep and home management. Despite the deficits the pt demonstrated her ability to participate in basic functional mobility to the bedside commode and her morning dressing/toileting routine with S-CG from the therapist. Pt presents to be very aprehensive and slightly anxious regarding falling/ability to participate fully in her daily routine w/o assistance. Benefits from encouragement. Pt would benefit from further inpatient OT interventions to address performance deficits and maximize participation and independence with occupations of daily living. Recommendation upon d/c is for the pt to return home with family support when performing her daily routine. Equipment Recommendations: Equipment Needs Upon Discharge (OT): None Anticipated Discharge Disposition (OT): home with supervision Other Recommendations: ?? Utilize upright chair position using bed features or transfer to recliner chair as appropriate with CG FWW, ambulate as tolerated ?? Encourage participation in ADL's by providing set up A on tray table and physical assist only asneeded Other Recommendations: No other consults recommended at this time Goals: To be achieved by 09/25/21. Patient will stand at sink level with supervision x5 min for ADLs. Patient will dress lower body indep with adaptive equipment prn. Patient will complete all aspects of toileting I, AE PRN Patient will ambulate to the bathroom with supervision, assistive device as needed. Patient will demonstrate energy conservation principals with all ADLs indep. Plan: OT: Therapy Frequency (OT): 1-3 more times Planned OT interventions: Role of occupational therapy/rehabilitation, Transfers, Assistive device/technique, ADL, Positioning, Safety, Precautions/Protocol, Functional Mobility, Balance, Recommendations and Discharge planning. Total Minutes, Occupational Therapy: 24 (Eval [id number]) OT Evaluation Code Rationale: ?? Diagnosis & Pertinent Co-Morbidities affecting Plan of Care: see PMHx ?? Occupational Profile & Client History: Brief Expanded Extensive x ?? Assessment of Occupational Performance: 1-3 performance deficits 3-5 performance deficits 5 + performance deficits x ?? Clinical Decision Making: Low Moderate High x Clinical decision making of moderate complexity using standardized patient assessment instrument and measurable assessment of functional outcome. Pager: [phone] Gissell Gold OTR/L 09/11/2021 Occupational Therapy Rehabilitation Department * Op Note - Faizan Mcdonald MD - 09/10/2021 2:43 PM EDT [facility] [place] Operative Note Patient Name: Etelvina Willoughby : [id number] MR#: [id number] Case Date: 09/10/2021 Surgeon: Surgeon(s) and Role: * Lydia Sanchez MD - Primary * Faizan Mcdonald MD - Fellow * Rosa Maria, JENNY Sanchez - Physician Credit Administration Officer Preoperative Diagnosis: Failed Left total knee arthroplasty Postoperative Diagnosis: Same Procedure Performed: left Total Knee Arthroplasty Revision Complete (CPT 66891) Removal of antibiotic spacer from knee Anesthesia: general, Adductor Canal Block (performed in block area) IVF: 750ml of crystaloid Estimated Blood Loss: 350ml Urine Output: NA Drains: none Specimens removed during surgery: * No orders in the log * Surgical Closure: Primary Closure - skin incision is completely closed without any wires, francis, drains or other devices Complications: None apparent Tourniquet: Applied but never inflated Indications for the Procedure: Ms. Willoughby is a 60 y.o. year old female who underwent total knee arthroplasty on 03/29/2020. Unfortunately following this, she had developed significant pain and was eventually worked up for and diagnosed with aseptic loosening of her components. An aspiration of the joint has been performed and there has been no growth on extended 14 days cultures to rule out infection. After discussing treatment options the patient desired to proceed with surgery. A detailed conversation regarding the risks and benefits of reimplantation total knee arthroplasty was had with the patient. The risks discussed included but were not limited to: bleeding (which may or may not require transfusion), infection, wound healing issues, deep venous thrombosis, pulmonary embolus, prosthetic failure, loosening, prosthetic fracture, femur, tibia or patella fracture, dislocation, leg-length inequality, persistent pain, medical complications (including cardiac, respiratory and neurologic complications), anaesthetic complications, and . At this point in time Ms. Willoughby expressed a desire to proceed with an attempt at revising the jointand all of her questions were answered. Subsequent to this conversation, all of the patient???s questions were answered in great detail and informed consent was obtained for a left total knee arthroplasty revision. She received preoperative medical clearance and was felt optimized for surgery. Today, she identified the left knee as the correct operative side. Intraoperative Findings: No gross evidence of infection was noted. The previous implants were easliy removed. An extensive synovectomy was performed. The femur was revised with a size 3 femoral component with an uncemented 13 mm stem and 4 mm distal augment medially and laterally. The tibia was revised with a size 2 tibial baseplate with a 5 mm offset and uncemented 11 mm stem. Range of motion with the arthrotomy closed was 100 degrees from 0-100 and the knee was stable to varus and valgus stress. The removed implant was sent to [facility]. Procedure: The patient was met in the pre-operative holding area where the appropriate site was marked, 24 hour update performed, and the pre-operative checklist completed. She was then brought to the operatingroom on a stretcher and transferred to the OR table where the above anesthetic was administered. Benjamin odynes were applied to the non-operative leg. The operative site was shaved. A non-sterile tourniquet was applied high around the operative leg but not inflated. A foot post was placed to aid in intra-op leg positioning. A clinical time-out was held confirming the correct patient name, MRN, , planned procedure, site, antibiotic start time and agent, and outline of any surgical concerns. All inattendance were in agreement to proceed. Weight based dosing of tranexamic acid was administered prior to making an incision. Skin Preparation: The skin of the lower extremity was prepped using alcohol, chlorhexidine, and Duraprep. The prep was allowed to fully dry and sterile drapes were applied. Surgical Approach: Using a scalpel the old scar was excised. Hemostasis was obtained using electrocautery and full thickness skin flaps were elevated medial and lateral to identify the extensor mechanism. A medial parapatellar arthrotomy was performed leaving a 2mm cuff of tendon for later repair. Electrocautery was used to cauterize bleeders. A complete synovectomy was performed first on the medial side then on the lateral side. A medial peel was then performed around the tibia to the mid coronal line. Component removal: We began by focusing our attention on the polyethylene. 1/4 inch osteotome was utilized to remove this uneventfully. Next, the bone/implant interface was exposed around the femoral component. A bone tamp and a mallet were applied to the anterior flange and with a couple light taps, the femoral component was removed easily demonstrating complete debonding of the cement/implant interface. We then turned our attention to the tibia. A PCL retractor was placed posterior to the tibia and a sharp Hohmann medially and laterally to expose the tibial plateau. A bone tamp and a mallet again were used to disimpact the tibial component, which also demonstrated complete debonding at the cement/implant interface. There is essentially no bone loss at either femoral or tibial components. We then turned our attention to the patella. The excess synovium and scar tissue was removed circumferentially down to the implant/bone interface. A [place] was inserted at this interface to lever on the implant and similarly demonstrated complete debonding between the implant/cement interface. Placing 2 towel clips, proximally and distally, the patella was then measured and found to be 15 mm in thickness. A wide sawblade was utilized to make a skin cut removing the thin layer of cement and approximately 1 mm of bone to prepare a fresh bony surface for a new patellar insert. A size 2 patellar drill guide was then placed in the appropriate orientation and new lugs were drilled. A trial was inserted and found to provide appropriate bony coverage. Tibia: We then returned our attention to the tibia and flexed the knee and placed a PCL retractor around the posterior tibia to sublux the tibia anterior again. Using an opening reamer we were able to soundthe tibial canal. We then began sequentially reaming the tibial canal up to a size 11 mm reamer. With the reamer in place we then placed the proximal tibial cutting guide over the intramedullary reamer as part of a intramedullary guided technique. A skim cut was then performed through the cut guideafter pinning it in the appropriate position to freshen up the ant surfaces of the proximal tibia. After the cut pieces were removed, proximal tibial bone stock was assessed and found to be satisfactory. We then placed our tibial baseplate over the reamer to assess position. A 5 mm offset at the 340 degree kiet was utilized to position the tibial baseplate with appropriate coverage over the proximal tibia with appropriate rotation. Happy with the bone stock, alignment and tibial baseplate rotation we placed the keel punch and then proceeded on with the femoral revision. Femur: With the knee flexed, I used an opening reamer and sounded the femoral canal. We then began sequentially reaming the femur up to a size 13 mm reamer. With the reamer in place we then placed the distal femoral cutting guide with a 6 degree distal femoral valgus cut angle. We set the distal femoral cut guide to take approximately 2mm of bone off the distal femur, anticipating adding an additional 4mm for distal femoral augments both medially and laterally. The guide was pinned in place and the distal femur was cut. The pins were removed as was the cutting guide. We then placed a size three 4 in 1 cutting guide over the sarina, not requiring offset. We placed 4mm distal augments on the cut guide in anticipation of augmenting the distal femur. We then balanced the knee in 90?? of flexion using the spacer block. The 4 in 1 cut guide was pinned in external rotation with the knee balanced in flexion. At that point we made our anterior posterior and chamfer cuts.With downsizing the femoral component, no posterior augments were necessary. The 4 in 1 cut guide was then removed and we placed the box cutting guide. This was pinned using the anterior femoral cortex and a spacer block in 90?? of flexion to guide its position. The box cut was then made using an os cillating saw to cut for the GMK revision femoral implant Trials: Trials were assembled on the back table and inserted into the bone. A trial, 12 mm PS was then placed. The knee was then brought through a full range of motion. There was some laxity on exam and we increased the poly trial size to a 14 mm trial. At that point the knee was found to be stable and we were happy with our implant selection. Patella: With the knee in extension the patella was everted and the patellar trial button was applied. We then trialed the knee once again with the patella button in place. Overall range of motion, stability and alignment again was confirmed. Final Implants: Comfortable with our implant selection all trials were then removed. The knee was then copiously irrigated with pulse lavage to clear all bony surfaces of debris and blood. The implants were opened on the back table and assembled using the appropriate assembly tools and tensioning devices. In a cement gun 2 bags of medium viscosity cement with antibiotics was mixed using a vacuum. Cement was placed on the back surface of all implants being cautious to avoid contact with uncemented stems. Cementwas then pressurized into the exposed bone on the tibia first. The tibial implant was placed in theappropriate orientation and impacted into the bone. Excess cement was removed. The tibia was then reduced under the femur. Cement was injected into the exposed femoral bony surfaces and then the femoral component was aligned with the bony cuts and impacted. Excess cement was removed. The tibial polyethylene trial was placed.The knee was brought into extension and loaded. The patella was then irrigated with pulse lavage and the patella button with cement was placed over the pre-drilled lug holes. This was held in place with a patella clamp and excess cement was removed. The remaining per-capsular injection was injected into the periosteum and soft tissues for a total of 50cc. The knee was flexed and any remaining cement that had been expressed was removed. Once the cement was hardened the patella clamp was removed and the knee was irrigated one last time. The knee was brought through a final range of motion which demonstrated varus/valgus and anterior/posterior stability with appropriate patella tracking. The trial poly was removed and the final implant was opened, inserted and notedto seat fully. The tibia was then reduced under the femur. The knee was then copiously irrigated with pulse lavage once again. The remaining per-capsular injection was injected into the periosteum and soft tissues for a total of 50cc. The knee was brought through a final range of motion which demonstrated varus/valgus and anterior/posterior stability with appropriate patella tracking. Closure: The knee was placed in 60 degrees of flexion and the arthrotomy was closed initially with 0 vicryl tacking sutures which was over sewn with a #2 barbed running suture. The deep layers were closed with 0 vicryl. The superficial layers were closed with 2-0 vicryl. The skin was closed with a running 3-0 monocryl. The skin was sealed with skin glue. A sterile Mepilex Ag dressing was applied. A cryocuff was applied. The needle, sponge and instrument counts were correct at the end of the procedure. Faizan Mcdonald MD 09/10/2021 Post-operative Plan: (avoid IV narcotics) ?? 5-10 mg Oxycodone Q 4 hours po PRN ?? for breakthrough pain 15 mg Toradol iv or im q 6 hours (max 4 doses) ?? 1000mg Tylenol po??? q8 hour ?? Protonix 20mg qd x 2 weeks (or other PPI) ?? Zofran 4 mg po/iv q 8 hours PRN nausea ?? Encourage voiding q 4 hours. If unable to void bladder scan and encourage to void in 30 minutes.If PVR > 400 then straight cath. ?? Perioperative prophylactic antibiotics for the next 24 hours ?? Weight bearing status of operative extremity: Weight bearing as tolerated ?? Wound closure: Subcuticular absorbable suture with skin glue ?? Dressing changes: Mepilex Silver (Do not change for 7 days then a dry sterile dressing). Dermabond skin glue to fall off on it's own. ?? Follow-up Plan: As scheduled prior to surgery (approx. 5 weeks with x-rays) ?? Anticoagulation: Warfarin (goal INR ~2) for 30 days -pepper trial ?? Any possible barriers to discharge: None ?? Plan for hospital stay: Standard ?? Anticipated Length of Stay: 1-2 days Implant Summary: Implant Name Type Inv. Item Serial No. Obstetric Assistant Lot No. LRB No. Used Action CEMENT BONE MEDIUM VISCOSITY 40GM GENTAMICIN SINGLE DOSE ([id number]) - [id number] IMPLANTS CEMENT BONE MEDIUM VISCOSITY 40GM GENTAMICIN SINGLE DOSE ([id number]) Connotate [facility] [id number] Left 2 Implanted FEMORAL COMPONENT ADAPTER KNEE 5MM KRISTINE ([id number]) (AUTOREQ) - [id number] IMPLANTS FEMORAL COMPONENT ADAPTER KNEE 5MM KRISTINE ([id number]) (AutoReq) [email or web address] - [employer] [place] [id number] Left 1 Implanted BASEPLATE TIBIAL SZ 2 LEFT KRISTINE COCR GMK ([id number]) (AUTOREQ) - [id number] IMPLANTS BASEPLATE TIBIAL SZ 2 LEFT KRISTINE COCR GMK ([id number]) (AutoReq) [email or web address] - [employer] US [id number] Left 1 Implanted STEM EXT KNEE [id number] POR FLUTED COCR ([id number]) (AUTOREQ) - [id number] IMPLANTS STEM EXT KNEE [id number] POR FLUTED COCR ([id number]) (AutoReq) [employer] [place] - [place] [place] [id number] Left 1 Implanted STEM EXT KNEE [id number] POR FLUTED COCR ([id number]) (AUTOREQ) - [id number] IMPLANTS STEM EXT KNEE [id number] POR FLUTED COCR ([id number]) (AutoReq) [employer] [place] - [employer] [place] [id number] Left 1 Implanted AUGMENT WEDGE FEM KNEE 4MM SIZE 3 DIST TI GMK ([id number]) (AUTOREQ) - [id number] IMPLANTS AUGMENT WEDGE FEM KNEE 4MM SIZE 3 DIST TI GMK ([id number]) (AutoReq) [employer] [place] - [employer] [place] [id number] Left 1 Implanted AUGMENT WEDGE FEM KNEE 4MM SIZE 3 DIST TI GMK ([id number]) (AUTOREQ) - [id number] IMPLANTS AUGMENT WEDGE FEM KNEE 4MM SIZE 3 DIST TI GMK ([id number]) (AutoReq) [employer] [place] - [employer] [place] [id number] Left 1 Implanted COMP FEMORAL KNEE SZ 2 LEFT KRISTINE PS COCR ([id number]) (AUTOREQ) - [id number] IMPLANTS COMP FEMORAL KNEESZ 2 LEFT KRISTINE PS COCR ([id number]) (AutoReq) [employer] [place] - [employer] [place] [id number] Left 1 Implanted medacta patella size 2 E-cross [employer] [place] - [employer] [place] [id number] Left 1 Implanted INSERT TIBIAL 14MM SZ 2 FIX POLY GMK ([id number]) (AUTOREQ) - [id number] IMPLANTS INSERT TIBIAL 14MM SZ 2 FIX POLY GMK ([id number]) (AutoReq) [employer] [place] - [employer] [place] [id number] Left 1 Implanted Faizan Mcdonald MD 09/10/2021 Associated attestation - Lydia Sanchez MD - 09/16/2021 2:03 PM EDT Attestation: Case Date: 09/10/2021 - 09/11/2021 I performed this procedure without the involvement of a resident.Faizan Mcdonald DO assisted in thissurgery as no qualified resident was available. Izzy Rosa Maria DWIGHT worked under my direction for the duration of the operative session. The case assistant adequately prepped the operative site and maintained the best possible exposure of anatomy incident to the procedure. LYDIA SANCHEZ MD 09/16/2021 documented in this encounter Plan of Treatment Upcoming Encounters Date Type Department Care Team (Latest Contact Info) Description 04/06/2024 11:30 AM EST Hospital Encounter [place] [address] Cadence Eric MD [facility] [place] [address] 04/06/2024 11:30 AM EST - 04/06/2024 12:50 PM EST Surgery [place] [address] Cadence Eric MD [facility] [place] [address] IMPLANT NEUROSTIMULATOR ELECTRODES, PERIPHERAL NERVE (WRVU 5.76) 04/14/2024 2:30 PM EST Office Visit [facility] [place] [address] Cadence Eric MD [facility] [place] [address] Scheduled Procedures Name Priority Associated Diagnoses Date/Ti me IMPLANT NEUROSTIMULATOR ELECTRODES, PERIPHERAL NERVE (WRVU 5.76) Yes Saphenous neuralgia, right 04/06/2024 11:30 AM EST IMPLANT NEUROSTIMULATOR ELECTRODES, PERIPHERAL NERVE (WRVU 5.76) Saphenous neuralgia, 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 Neuropathic pain COLONOSCOPY,SCREENING (WRVU 3.26) Health maintenance examination-screening colo Scheduled Referrals Name Type Priority Associated Diagnoses Orde r Schedule Referral to Home Health Outpatient Referral Routine S/P revision of total knee, left Ordered: 09/13/2021 documented as of this encounter Procedures Procedure Name Priority Date/Time Associated Diagnosis Comments HC HEMOGRAM Routine 09/13/2021 1:56 PM EDT COVID-19 PCR Routine 09/13/2021 4:04 AM EDT HEMOGRAM Routine 09/13/2021 3:37 AM EDT DIFFERENTIAL, AUTOMATED Routine 09/13/2021 3:37 AM EDT HC PROTHROMBIN TIME Routine 09/13/2021 3 :37 AM EDT HC VENIPUNCTURE Routine 09/13/2021 3:37 AM EDT BASIC METABOLIC PANEL Routine 09/13/2021 3:37 AM EDT HEMOGRAM Routine 09/12/2021 3:37 AM EDT DIFFERENTIAL, AUTOMATED Routine 09/12/2021 3:37 AM EDT HC PROTHROMBIN TIME Routine 09/12/2021 3 :37 AM EDT HC VENIPUNCTURE Routine 09/12/2021 3:37 AM EDT BASIC METABOLIC PANEL Routine 09/12/2021 3:37 AM EDT HEMOGRAM Routine 09/11/2021 3:00 AM EDT DIFFERENTIAL, AUTOMATED Routine 09/11/2021 3:00 AM EDT HC PROTHROMBIN TIME Routine 09/11/2021 3 :00 AM EDT HC CBC,PLT & AUTO DIFF Routine 09/11/2021 3:00 AM EDT BASIC METABOLIC PANEL Routine 09/11/2021 3:00 AM EDT XR KNEE AP & LAT LEFT Routine 09/10/2021 8:44 PM EDT MODIFIER,GMK REVISION KNEE,MEDACTA Yes 09/10/2021 2:07 PM EDT Status post left knee replacement Chronic pain of left knee Left leg pain Revise Knee Joint Replace, All Parts ([id number]) Yes 09/10/2021 2:07 PM EDT Status post left knee replacement Chronic pain of left knee Left leg pain TOTAL KNEE REVISION ARTHROPLASTY, COMPLETE Routine 09/10/2021 11:34 AM EDT Status post left knee replacement Chronic pain of left knee Left leg pain IMPLANTABLE DEVICES SCAN 09/10/2021 12:00 AM EDT documented in this encounter Results * (ABNORMAL) Hemogram (09/13/2021 1:56 PM EDT) White Blood Cell 7.9 4.0 - 9.5 x10(3)/[facility] LABORATORY Red Blood Cell 3.03(L) 4.00 - 5.21 x10(6)/ L [facility] Hemoglobin 8.7(L) 11.7 - 15.5 g/dL [facility] Hematocrit 26.7(L) 35.7 - 45.8 % [facility] Mean Cell Volume 88.1 82.6 - 94.4 fL [facility] Mean Cell Hemoglobin 28.7 27.1 - 32.0 pg [facility] Mean Cell Hemoglobin Concentration 32.6 31.7 - 35.0 g/dL [facility] Platelet 295 145 - 357 x10(3)/[facility] LABORATORY RDW Standard Deviation 41.4 37.0 - 46.0 [facility] LAB[facility]ORY RDW coefficient of variation 12.9 11.5 - 14.1 % [facility] Mean Platelet Volume 10.6 7.6 - 12.9 fL [facility] NRBC% auto 0.0 % [facility] NRBC Absolute 0.000 0.000 - 0.000 x10(3)/[facility] LAB[facility] Blood 09/13/2021 1:56 PM EDT 09/13/2021 2:10 PM EDT Narrative Resulting Agency Comment Spec In Lab Miesha Burkett APRN HEMATOLOGY ORDERA ZOËS [facility] [place] [address] * COVID-19 PCR (09/13/2021 4:04 AM EDT) SARS-CoV-2 RNA Not Detected Not Detected [facility] Comment: This result should be interpreted in combination with the clinical observations, patient history and epidemiological information in making a final diagnosis. For testing of asymptomatic individuals, assay performance characteristics and clinical utility have not been evaluated. Testing for SARS-CoV-2 (Severe acute respiratory syndrome coronavirus 2, formerly known as 2019 novel coronavirus or 2019-nCoV) to aid in the diagnosis of COVID-19 is performed using the [employer] m SARS-CoV-2 Assay as authorized by the FDA Emergency Use Authorization (EUA). This EUA assay is intended for In-vitro Diagnostic (IVD) use with respiratory specimens such as nasopharyngeal swabs collected from individuals during the acute phase of infection. This assay is performed based on the instructions for use provided by [employer] and additional guidance provided by CDC and FDA. Testing is performed in the [facility] within the Department of Pathology and Laboratory Medicine at [facility], certified under the Clinical Laboratory Improvement Amendments of 1988 (CLIA), 42 U.S.C. 263a, to perform high complexity tests. Assay performance has been verified according to clinical laboratory regulatory requirements for use with specimens collected from individuals suspected of COVID-19. Test results are provided above. A result of Not Detected indicates that the viral RNA target is not present above the limit of detection, but does not preclude SARS-CoV-2 infection. False negative results may occur if a specimen is improperly collected, transported or handled; if amplification inhibitors are present; or if inadequate numbers of viral particles are present in the specimen. When a diagnostic test is negative, the possibility of a false negative result should be considered in the context of a patient's recent exposures and the presence of clinical signs and symptoms consistent with COVID-19. A result of Detected indicates that RNA from SARS-CoV-2 was detected and the patient is infected. As required or requested by public health authorities, positive specimens may be sent for additional testing. Positive and negative predictive values for this test are highly dependent on disease prevalence. A result of Invalid indicates that neither the viral RNA targets nor the internal control target was detected. An invalid result suggests the presence of inhibitors. Recollection and re-testing is recommended in the case of an invalid result. CDC COVID-19 criteria for testing on human specimens and clinical management guidance information are available at the CDC Coronavirus Disease 2019 (COVID-19) webpage under Information for Healthcare Professionals (https://www.cdc.gov/coronavirus/2019-ncov/hcp/index.html) Additional information about this and other EUA tests can be found in provider and patient fact sheets at the following FDA website: https://www.fda.gov/medical-devices/qomvgbypcxl-vbrtbfw-8430-ulczw-45-nijegqeff- use-a esrhjngiabsjp-sjbamsg-enysmri/ahjel-buoroepozia-qvoj SARS-CoV-2 RNA Source CAR REFINISHER Swab [facility] Nasopharyngeal Swab 09/14/19 4:04 AM EDT 09/13/2021 7:23 AM EDT Comment:Symptoms->Surveillan ce Narrative Resulting Agency Comment Spec In Lab Lydia Sanchez MD MOLECULAR ORDERABLES Performing Organization Address City/State/[facility] Co de Phone Number [facility] [place] [address] * (ABNORMAL) Differential, Automated (09/13/2021 3:37 AM EDT) Neutrophil % 58.3 % [facility] Neutrophil Absolute 5.38 1.70 - 6.10 x10(3)/mc L [facility] Lymph % 24.4 % [facility] Lymphocytes Abs 2.2 0.9 - 3.2 x10(3)/mc L [facility] Monocyte % 13.4 % [facility] Monocyte Abs 1.2(H) 0.3 - 0.9 x10(3)/mc L [facility] Eos % 2.5 % [facility] Eosinophils Abs 0.2 0.0 - 0.4 x10(3)/ L [facility] Basophil % 0.7 % [facility] Baso Absolute 0.1 0.0 - 0.1 x10(3)/[facility] LABOR[facility] Immature Gran % 0.70 % [facility] Comment: Immature granulocytes(IG's)percentage and absolute count will include metamyelocytes, myelocytes, and promyelocytes. Blood smears from CBCs yielding IG's will be scanned manually for concordance. If this scan disagrees with the automated IG or if promyelocytes are noted, a manual differential will be performed. Immature Gran Absolute 0.06(H) 0.00 - 0.04 x10(3)/[facility] LAB[facility] Blood 09/13/2021 3:37 AM EDT 09/13/2021 3:52 AM EDT Narrative Resulting Agency Comment Spec In Lab Faizan Mcdonald MD HEMATOLOGY ORDERABLE S [facility] [place] [address] * (ABNORMAL) Hemogram (09/13/2021 3:37 AM EDT) White Blood Cell 9.2 4.0 - 9.5 x10(3)/[facility] LAB[facility] Red Blood Cell 2.75(L) 4.00 - 5.21 x10(6)/[facility] Hemoglobin 7.9(L) 11.7 - 15.5 g/dL [facility] Hematocrit 24.2(L) 35.7 - 45.8 % [facility] Mean Cell Volume 88.0 82.6 - 94.4 fL [facility] Mean Cell Hemoglobin 28.7 27.1 - 32.0 pg [facility] Mean Cell Hemoglobin Concentration 32.6 31.7 - 35.0 g/dL [facility] Platelet 249 145 - 357 x10(3)/ L [facility] RDW Standard Deviation 41.1 37.0 - 46.0 [facility] RDW coefficient of variation 12.8 11.5 - 14.1 % [facility] Mean Platelet Volume 10.7 7.6 - 12.9 [facility] LAB[facility]ORY NRBC% auto 0.0 % [facility] NRBC Absolute 0.000 0.000 - 0.000 x10(3)/mc L [facility] Blood 09/13/2021 3:37 AM EDT 09/13/2021 3:52 AM EDT Narrative Resulting Agency Comment Spec In Lab Faizan Mcdonald MD HEMATOLOGY ORDERABLE S Performing Organization Address [facility] Co de Phone Number [facility] [place] [address] * (ABNORMAL) Prothrombin Time (09/13/2021 3:37 AM EDT) Prothrombin Time 16.7(H) 9.4 - 12.5 sec [facility] International Normalization Ratio 1.5 [facility] Comment: An INR <2.0 indicates adequate procoagulant activity for hemostasis in most patients without underlying bleeding disorders, though the INR may not adequately reflect hemostatic capacity in patients with liver disease and synthetic impairment. The recommended target INR range for therapeutic anticoagulation is 2.0 ? 3.0 for most applications, though lower and higher ranges may be appropriate depending on clinical circumstances. Blood 09/13/2021 3:37 AM EDT 09/13/2021 3:52 AM EDT Narrative Resulting Agency Comment Spec In Lab Faizan Mcdonald MD HEMATOLOGY ORDERABLE S Performing Organization Address [facility] Co de Phone Number [facility] [place] [address] * (ABNORMAL) Basic Metabolic Panel (non-fasting) (09/13/2021 3:37 AM EDT) Glucose 90 65 - 199 mg/dL [facility] Comment:Diabetes: >=200 mg/d L plus symptoms Blood Urea Nitrogen 16 8 - 18 mg/dL [facility] Creatinine 0.72 0.70 - 1.20 mg/dL [facility] Sodium 132(L) 135 - 145 mmol/L [facility] Potassium 4.4 3.5 - 5.0 mmol/L [facility] Comment: Please note: ??Patients with WBC >100,000 may have falsely elevated Potassium levels. ??For accurate Potassium quantification in these patients send serum separator tube (gold top) for subsequent determinations. ??Contact the Clinical Chemistry Laboratory if there are any questions. Chloride 99 98 - 107 mmol/L [facility] Carbon Dioxide 24 22 - 31 mmol/L [facility] Anion Gap 9 5 - 15 mmol/L [facility] Calcium 8.3(L) 8.5 - 10.5 mg/dL [facility] Est Glomerular Filtration Rate 92 >=60 mL/min/1. 73 m?? [facility] Comment: This patient? s estimated glomerular filtration rate (eGFR) is between 92 mL/min/1.73 m2 (patients with less muscle mass) and 106 mL/min/1.73 m2 (patients with more muscle mass) as determined by the CKD-EPI equation. Assessment of eGFR is not appropriate when creatinine concentrations are rapidly changing. For clinical decisions where creatinine clearance will affect therapy, a 24-hour urine creatinine clearance may be advised. Assignment of CKD stage 1 - 5 for patients with an eGFR near the transition point between stages may be based on clinical assessment of muscle mass and symptoms in addition to eGFR. Blood 09/13/2021 3:37 AM EDT 09/13/2021 3:52 AM EDT Narrative Resulting Agency Comment Spec In Lab Faizan Mcdonald MD CHEMISTRY ORDERABLES [facility] [place] [address] * (ABNORMAL) Differential, Automated (09/12/2021 3:37 AM EDT) Pathologist [facility] [place] Neutrophil % 75.9 % [facility] Neutrophil Absolute 9.89(H) 1.70 - 6.10 x10(3)/ L [facility] Lymph % 13.4 % [facility] Lymphocytes Abs 1.8 0.9 - 3.2 x10(3)/ L [facility] Monocyte % 10.0 % [facility] Monocyte Abs 1.3(H) 0.3 - 0.9 x10(3)/ L [facility] Eos % 0.1 % [facility] Eosinophils Abs 0.0 0.0 - 0.4 x10(3)/[facility] LABOR[facility] Basophil % 0.1 % [facility] Baso Absolute 0.0 0.0 - 0.1 x10(3)/[facility] Immature Gran % 0.50 % [facility] Comment: Immature granulocytes(IG's)percentage and absolute count will include metamyelocytes, myelocytes, and promyelocytes. Blood smears from CBCs yielding IG's will be scanned manually for concordance. If this scan disagrees with the automated IG or if promyelocytes are noted, a manual differential will be performed. Immature Gran Absolute 0.07(H) 0.00 - 0.04 x10(3)/ L [facility] Blood 09/12/2021 3:37 AM EDT 09/12/2021 3:57 AM EDT Narrative Resulting Agency Comment Spec In Lab Faizan Mcdonald MD HEMATOLOGY ORDERABLE S [facility] [place] [address] * (ABNORMAL) Hemogram (09/12/2021 3:37 AM EDT) [facility] White Blood Cell 13.0(H) 4.0 - 9.5 x10(3)/ L [facility] Red Blood Cell 3.09(L) 4.00 - 5.21 x10(6)/mc L [facility] Hemoglobin 8.9(L) 11.7 - 15.5 g/dL [facility] Hematocrit 27.1(L) 35.7 - 45.8 % [facility] Mean Cell Volume 87.7 82.6 - 94.4 fL [facility] Mean Cell Hemoglobin 28.8 27.1 - 32.0 pg [facility] Mean Cell Hemoglobin Concentration 32.8 31.7 - 35.0 g/dL [facility] Platelet 273 145 - 357 x10(3)/mc L [facility] RDW Standard Deviation 41.9 37.0 - 46.0 fL [facility] RDW coefficient of variation 13.1 11.5 - 14.1 % [facility] Mean Platelet Volume 10.4 7.6 - 12.9 fL [facility] NRBC% auto 0.0 % [facility] NRBC Absolute 0.000 0.000 - 0.000 x10(3)/mc L [facility] Blood 09/12/2021 3:37 AM EDT 09/12/2021 3:57 AM EDT Narrative Resulting Agency Comment Spec In Lab Faizan Mcdonald MD HEMATOLOGY ORDERABLE S Performing Organization Address City/State/[facility] Co de Phone Number [facility] [place] [address] * (ABNORMAL) Prothrombin Time (09/12/2021 3:37 AM EDT) Prothrombin Time 14.9(H) 9.4 - 12.5 sec [facility] International Normalization Ratio 1.3 [facility] Comment: An INR <2.0 indicates adequate procoagulant activity for hemostasis in most patients without underlying bleeding disorders, though the INR may not adequately reflect hemostatic capacity in patients with liver disease and synthetic impairment. The recommended target INR range for therapeutic anticoagulation is 2.0 ? 3.0 for most applications, though lower and higher ranges may be appropriate depending on clinical circumstances. Blood 09/12/2021 3:37 AM EDT 09/12/2021 3:57 AM EDT Narrative Resulting Agency Comment Spec In Lab Faizan Mcdonald MD HEMATOLOGY ORDERABLE S [facility] [place] [address] * Basic Metabolic Panel (non-fasting) (09/12/2021 3:37 AM EDT) Glucose 126 65 - 199 mg/dL [facility] Comment:Diabetes: >=200 mg/d L plus symptoms Blood Urea Nitrogen 16 8 - 18 mg/dL [facility] Creatinine 0.86 0.70 - 1.20 mg/dL [facility] Sodium 136 135 - 145 mmol/L [facility] Potassium 4.8 3.5 - 5.0 mmol/L [facility] Comment: Please note: ??Patients with WBC >100,000 may have falsely elevated Potassium levels. ??For accurate Potassium quantification in these patients send serum separator tube (gold top) for subsequent determinations. ??Contact the Clinical Chemistry Laboratory if there are any questions. Chloride 104 98 - 107 mmol/L [facility] Carbon Dioxide 24 22 - 31 mmol/L [facility] Anion Gap 8 5 - 15 mmol/L [facility] Calcium 8.7 8.5 - 10.5 mg/dL [facility] Est Glomerular Filtration Rate 74 >=60 mL/min/1. 73 m?? [facility] Comment: This patient? s estimated glomerular filtration rate (eGFR) is between 74 mL/min/1.73 m2 (patients with less muscle mass) and 86 mL/min/1.73 m2 (patients with more muscle mass) as determined by the CKD-EPI equation. Assessment of eGFR is not appropriate when creatinine concentrations are rapidly changing. For clinical decisions where creatinine clearance will affect therapy, a 24-hour urine creatinine clearance may be advised. Assignment of CKD stage 1 - 5 for patients with an eGFR near the transition point between stages may be based on clinical assessment of muscle mass and symptoms in addition to eGFR. Blood 09/12/2021 3:37 AM EDT 09/12/2021 3:57 AM EDT Narrative Resulting Agency Comment Spec In Lab Faizan Mcdonald MD CHEMISTRY ORDERABLES [facility] [place] [address] * (ABNORMAL) Differential, Automated (09/11/2021 3:00 AM EDT) Neutrophil % 89.2 % [facility] Neutrophil Absolute 17.38(H) 1.70 - 6.10 x10(3)/mc L [facility] Lymph % 4.0 % [facility] Lymphocytes Abs 0.8(L) 0.9 - 3.2 x10(3)/mc L [facility] Monocyte % 6.0 % [facility] Monocyte Abs 1.2(H) 0.3 - 0.9 x10(3)/mc L [facility] Eos % 0.0 % [facility] Eosinophils Abs 0.0 0.0 - 0.4 x10(3)/mc L [facility] Basophil % 0.1 % [facility] Baso Absolute 0.0 0.0 - 0.1 x10(3)/mc L [facility] Immature Gran % 0.70 % [facility] Comment: Immature granulocytes(IG's)percentage and absolute count will include metamyelocytes, myelocytes, and promyelocytes. Blood smears from CBCs yielding IG's will be scanned manually for concordance. If this scan disagrees with the automated IG or if promyelocytes are noted, a manual differential will be performed. Immature Gran Absolute 0.13(H) 0.00 - 0.04 x10(3)/mc L [facility] Blood 09/11/2021 3:00 AM EDT 09/11/2021 3:12 AM EDT Narrative Resulting Agency Comment Spec In Lab Faizan Mcdonald MD HEMATOLOGY ORDERABLE S [facility] [place] [address] * (ABNORMAL) Hemogram (09/11/2021 3:00 AM EDT) White Blood Cell 19.5(H) 4.0 - 9.5 x10(3)/mc L [facility] Red Blood Cell 3.48(L) 4.00 - 5.21 x10(6)/mc L [facility] Hemoglobin 10.0(L) 11.7 - 15.5 g/dL [facility] Hematocrit 30.6(L) 35.7 - 45.8 % [facility] Mean Cell Volume 87.9 82.6 - 94.4 fL [facility] Mean Cell Hemoglobin 28.7 27.1 - 32.0 pg [facility] Mean Cell Hemoglobin Concentration 32.7 31.7 - 35.0 g/dL [facility] Platelet 319 145 - 357 x10(3)/mc L [facility] RDW Standard Deviation 41.2 37.0 - 46.0 [facility] RDW coefficient of variation 12.8 11.5 - 14.1 % [facility] Mean Platelet Volume 10.3 7.6 - 12.9 fL [facility] NRBC% auto 0.0 % [facility] NRBC Absolute 0.000 0.000 - 0.000 x10(3)/mc L [facility] Blood 09/11/2021 3:00 AM EDT 09/11/2021 3:12 AM EDT Narrative Resulting Agency Comment Spec In Lab Faizan Mcdonald MD HEMATOLOGY ORDERABLE S [facility] [place] [address] * (ABNORMAL) Prothrombin Time (09/11/2021 3:00 AM EDT) Prothrombin Time 13.0(H) 9.4 - 12.5 sec [facility] International Normalization Ratio 1.1 [facility] Comment: An INR <2.0 indicates adequate procoagulant activity for hemostasis in most patients without underlying bleeding disorders, though the INR may not adequately reflect hemostatic capacity in patients with liver disease and synthetic impairment. The recommended target INR range for therapeutic anticoagulation is 2.0 ? 3.0 for most applications, though lower and higher ranges may be appropriate depending on clinical circumstances. Blood 09/11/2021 3:00 AM EDT 09/11/2021 3:12 AM EDT Narrative Resulting Agency Comment Spec In Lab Faizan Mcdonald MD HEMATOLOGY ORDERABLE S Performing Organization Address [facility] de Phone Number [facility] [place] [address] * (ABNORMAL) Basic Metabolic Panel (non-fasting) (09/11/2021 3:00 AM EDT) [facility] Glucose 140 65 - 199 mg/dL [facility] Comment:Diabetes: >=200 mg/d L plus symptoms Blood Urea Nitrogen 12 8 - 18 mg/dL [facility] Creatinine 0.93 0.70 - 1.20 mg/dL [facility] Sodium 138 135 - 145 mmol/L [facility] Potassium 4.7 3.5 - 5.0 mmol/L [facility] Comment: Please note: ??Patients with WBC >100,000 may have falsely elevated Potassium levels. ??For accurate Potassium quantification in these patients send serum separator tube (gold top) for subsequent determinations. ??Contact the Clinical Chemistry Laboratory if there are any questions. Chloride 105 98 - 107 mmol/L [facility] Carbon Dioxide 23 22 - 31 mmol/L [facility] Anion Gap 10 5 - 15 mmol/L [facility] Calcium 8.3(L) 8.5 - 10.5 mg/dL [facility] Est Glomerular Filtration Rate 67 >=60 mL/min/1. 73 m?? [facility] Comment: This patient? s estimated glomerular filtration rate (eGFR) is between 67 mL/min/1.73 m2 (patients with less muscle mass) and 78 mL/min/1.73 m2 (patients with more muscle mass) as determined by the CKD-EPI equation. Assessment of eGFR is not appropriate when creatinine concentrations are rapidly changing. For clinical decisions where creatinine clearance will affect therapy, a 24-hour urine creatinine clearance may be advised. Assignment of CKD stage 1 - 5 for patients with an eGFR near the transition point between stages may be based on clinical assessment of muscle mass and symptoms in addition to eGFR. Blood 09/11/2021 3:00 AM EDT 09/11/2021 3:12 AM EDT Narrative Resulting Agency Comment Spec In Lab Faizan Mcdonald MD CHEMISTRY ORDERABLES [facility] [place] [address] * XR Knee 1-2 Views Left (Generic) (09/10/2021 8:44 PM EDT) Anatomical Region Laterality Modality Knee Left Digital Radiogra phy Impressions 09/11/2021 2:32 AM EDT Status post revised total left knee arthroplasty. No evidence of complication. Thank you for letting us participate in the care of this patient. ??If you are a health care provider and have any questions regarding this report, please contact the number below. ??For patients who have questions please contact the health account executive healthcare that requested your imaging first. ? Narrative 09/11/2021 2:32 AM EDT EXAMINATION: XR KNEE 1-2 VIEWS LEFT (GENERIC) CLINICAL HISTORY: postop AP/Lat - include whole implant TECHNIQUE: 2 views LEFT knee, 4 images COMPARISON: Radiographs of the left knee 06/05/2021 FINDINGS: Status post revised total left knee arthroplasty with new longstem femoral and tibial components and a constrained device. Hardware is intact with expected alignment. No periprosthetic fracture. There is soft tissue gas and edema surrounding the knee. Procedure Note Royce Ramon MD - 09/11/2021 EXAMINATION: XR KNEE 1-2 VIEWS LEFT (GENERIC) CLINICAL HISTORY: postop AP/Lat - include whole implant TECHNIQUE: 2 views LEFT knee, 4 images COMPARISON: Radiographs of the left knee 06/05/2021 FINDINGS: Status post revised total left knee arthroplasty with new longstem femoraland tibial components and a constrained device. Hardware is intact withexpected alignment. No periprosthetic fracture. There is soft tissue gas andedema surrounding the knee. IMPRESSION Status post revised total left knee arthroplasty. No evidence ofcomplication. Thank you for letting us participate in the care of this patient. If youare a health care provider and have any questions regarding this report,please contact the number below. For patients who have questions please contactthe health account executive healthcare that requested your imaging first. Faizan Mcdonald MD IMG DX ORDERABLES * SCAN DOC: IMPLANTABLE DEVICES (09/10/2021 12:00 AM EDT) Unknown MEDIA MGR SCAN EXT O RDR/RSLT documented in this encounter Visit Diagnoses Diagnosis S/P revision of total knee, left- Primary Status post left knee replacement Chronic pain of left knee Pain in joint, lower leg Left leg pain Pain in limb S/P TKR (total knee replacement), left Morbid obesity with BMI of 45.0-49.9, adult Morbid obesity Saphenous neuralgia, right documented in this encounter Admitting Diagnoses Diagnosis S/P TKR (total knee replacement), left documented in this encounter Administered Medications Inactive Administered Medications - up to 3 most recent administrations Medication Order MAR Action Action Date Dose Rate Site acetaminophen (Tylenol) tablet 1,000 mg 1,000 mg, Oral, ONCE, 1 dose, On Thu09/10/21 at 1200, Administer on arrival in Same Day Program, Day of Surgery (Day of Procedure), Routine Given 09/10/2021 12:15 PM EDT 1,000 mg acetaminophen (Tylenol) tablet 1,000 mg 1,000 mg, Oral, EVERY 8 HOURS SCHEDULED, First dose on Thu09/10/21 at 2200, Until Discontinued, Maximum dose of acetaminophen is 4000 mg from all sources in 24 hours. When ordered for pain, acetaminophen should be given even when other ordered pain medications are indicated. , Routine Given 09/11/2021 6:00 AM EDT 1,000 mg Given 09/10/2021 10:00 PM EDT 1,000 mg acetaminophen (Tylenol) tablet 1,000 mg 1,000 mg, Oral, EVERY 6 HOURS SCHEDULED, First dose (after last modification) on Thu09/11/21 at 1200, Until Discontinued, Maximum dose of acetaminophen is 4000 mg from all sources in 24 hours. When ordered for pain, acetaminophen should be given even when other ordered pain medications are indicated. , Routine Given 09/14/2021 11:27 AM EDT 1,000 mg Given 09/14/2021 6:08 AM EDT 1,000 mg Given 09/14/2021 12:12 AM EDT 1,000 mg aspirin EC tablet 81 mg 81 mg, Oral, 2 TIMES DAILY, First dose on Thu09/13/21 at 1315, Until Discontinued, Do not crush or chew, Routine Given 09/14/2021 10:14 AM EDT 81 mg Given 09/13/2021 8:10 PM EDT 81 mg Given 09/13/2021 1:05 PM EDT 81 mg bisacodyL (Dulcolax) suppository 10 mg 10 mg, Rectal, DAILY, First dose (after last modification) on Thu09/13/21 at 1330, Until Discontinued, Administer if needed per patient's routine or if no bowel movement within 48 hours to achieve: (1) One bowel movement every 48 hours, AND (2) without straining., Routine ceFAZolin (Ancef) 2 g in dextrose 5% 100 mL infusion 2 g, Intravenous, EVERY 8 HOURS, 3 doses, First dose on Thu09/10/21 at 1800, Last dose on Thu09/11/21 at 1000, Administer over 30 Minutes, Adjust to 4 hours from intraoperative dose. * Beta-lactam based antibiotics (eg. Ampicillin, Cefazolin, Aztreonam) should be administered within 4 hours of the preceding intraoperative dose. * Vancomycin, Fluoroquinolones, Clindamycin, Gentamicin, and Metronidazole should be administered within 8 hours of the preceding intraoperative dose., Recovery (Recovery-Hospital Unit), Indication for (Active or Suspected): Prophylaxis New Bag 09/11/2021 10:17 AM EDT 2 g 200 mL/hr New Bag 09/11/2021 2:00 AM EDT 2 g 200 mL/hr New Bag 09/10/2021 6:30 PM EDT 2 g 200 mL/hr citalopram (CeleXA) tablet 20 mg 20 mg, Oral, NIGHTLY, First dose on Thu09/10/21 at 2200, Until Discontinued, Routine Given 09/13/2021 8:10 PM EDT 20 mg Given 09/12/2021 8:16 PM EDT 20 mg Given 09/11/2021 8:59 PM EDT 20 mg dexamethasone (Decadron) tablet 4 mg 4 mg, Oral, DAILY, 2 doses, First dose on Thu09/10/21 at 1815, Last dose on Thu09/11/21 at 0900, Routine Given 09/11/2021 8:10 AM EDT 4 mg Given 09/10/2021 6:15 PM EDT 4 mg docusate sodium (Colace) capsule 200 mg 200 mg, Oral, 2 TIMES DAILY, First dose on Thu09/12/21 at 0900, Until Discontinued, Routine Given 09/13/2021 9:03 AM EDT 200 mg Given 09/12/2021 8:16 PM EDT 200 mg Given 09/12/2021 9:16 AM EDT 200 mg docusate sodium (Colace) capsule 200 mg 200 mg, Oral, 2 TIMES DAILY PRN, Starting on Thu09/13/21 at 1415, Until Thu09/14/21 at 1454, Constipation, Routine fenofibrate micronized (Lofibra) capsule 67 mg 67 mg, Oral, NIGHTLY, First dose (after last modification) on Thu09/13/21 at 2100, Until Discontinued, Routine Given 09/13/2021 8:09 PM EDT 67 mg fentaNYL (PF) (50 mcg/mL) injection 50 mcg 50 mcg, Intravenous, EVERY 5 MIN PRN, Starting on Thu09/10/21 at 1140, Until Thu09/10/21 at 2056, Pain, or prior to injection of local anesthetic., Hold for respiratory rate less than 8 breaths per minute. (maximum dose 200 mcg), Day of Surgery (Day of Procedure), Routine Given 09/10/2021 1:05 PM EDT 50 mcg Given 09/10/2021 1:00 PM EDT 50 mcg gabapentin (Neurontin) capsule 300 mg 300 mg, Oral, 3 TIMES DAILY, First dose on Gerda 09/12/21 at 1500, Until Discontinued, Routine Given 09/14/2021 10:14 AM EDT 300 mg Given 09/13/2021 8:10 PM EDT 300 mg Given 09/13/2021 9:03 AM EDT 300 mg HYDROmorphone (Dilaudid) (0.5 mg/0.5 mL) injection syringe 0.3 mg 0.3 mg, Intravenous, ONCE, 1 dose, On Thu09/11/21 at 0745, Routine Given 09/11/2021 8:09 AM EDT 0.3 mg HYDROmorphone (Dilaudid) (2 mg/mL) multi-dose injection solution 0.4 mg 0.4 mg, Intravenous, EVERY 10 MIN PRN, Starting on Thu09/10/21 at 1741, Until Thu09/10/21 at 2056, Pain, For Mild to Moderate Pain (1-5 out of 10), Hold for respiratory rate less than 10 per minute. Maximum dose 4 mg over one hour including administrations in the OR. If multiple pain medications are ordered, start with HYDROmorphone or morphine and use fentaNYL for breakthrough pain, PACU Recovery, Routine Given 09/10/2021 6:59 PM EDT 0.4 mg Given 09/10/2021 5:59 PM EDT 0.4 mg HYDROmorphone (Dilaudid) (2 mg/mL) multi-dose injection solution 0.6 mg 0.6 mg, Intravenous, EVERY 10 MIN PRN, Starting on Thu09/10/21 at 1741, Until Thu09/10/21 at 2057, Pain, For Moderate to Severe Pain (6-10 out of 10), Hold for respiratory rate less than 10 per minute. Maximum dose 4 mg over one hour including administrations in the OR. If multiple pain medications are ordered, start with HYDROmorphone or morphine and use fentaNYL for breakthrough pain, PACU Recovery, Routine Given 09/10/2021 7:36 PM EDT 0.6 mg Given 09/10/2021 6:24 PM EDT 0.6 mg HYDROmorphone (Dilaudid) tablet 2 mg 2 mg, Oral, EVERY 4 HOURS PRN, Starting on Thu09/13/21 at 1256, Until 09/14/21 at 1454, Pain, For additional 2mg dose if patient gets 4mg or 6mg as the initial dose, Routine Given 09/13/2021 1:02 PM EDT 2 mg HYDROmorphone (Dilaudid) tablet 4-8 mg 4-8 mg, Oral, EVERY 4 HOURS PRN, Starting on Thu09/11/21 at 1259, Until Gerda 09/12/21 at 0703, Pain, Give 4 mg for mild pain (1-3), 6 mg for moderate pain (4-7) or 8 mg for severe pain (8-10), Routine Given 09/12/2021 3:51 AM EDT 8 mg Given 09/11/2021 9:46 PM EDT 8 mg Given 09/11/2021 5:42 PM EDT 8 mg HYDROmorphone (Dilaudid) tablet 4-8 mg 4-8 mg, Oral, EVERY 4 HOURS PRN, Starting on Thu09/12/21 at 1058, Until 09/14/21 at 1454, Pain, Give 4 mg for mild pain (1-3) 6 mg for moderate pain (4-7) or 8 mg for severe pain (8-10) If pain not relieved 30-60 minutes after a dose of 4mg or 6mg, may give additional 2mg dose ONCE., Routine Given 09/14/2021 11:27 AM EDT 8 mg Given 09/14/2021 7:27 AM EDT 8 mg Given 09/14/2021 3:28 AM EDT 8 mg ketorolac (Toradol) (30 mg/mL) injection 15 mg 15 mg, Intravenous, EVERY 6 HOURS PRN, Starting on Thu09/10/21 at 1745, Until Thu09/12/21 at 1744, Pain, Routine Given 09/12/2021 10:13 AM EDT 15 mg Given 09/11/2021 10:59 PM EDT 15 mg Given 09/11/2021 5:28 AM EDT 15 mg lactated Ringers 1,000 mL IV bolus Intravenous, ONCE, 1 dose, On Thu09/11/21 at 1915 New Bag 09/11/2021 6:40 PM EDT 500 mL/hr lactated Ringers 1,000 mL IV bolus Intravenous, ONCE, 1 dose, On Thu09/12/21 at 2100 New Bag 09/12/2021 8:26 PM EDT 500 mL/hr levothyroxine (Synthroid) tablet 100 mcg 100 mcg, Oral, NIGHTLY, First dose on Thu09/10/21 at 2200, Until Discontinued, Pt takes qhs, STAT Given 09/13/2021 8:11 PM EDT 100 mcg Given 09/12/2021 8:15 PM EDT 100 mcg Given 09/11/2021 10:58 PM EDT 100 mcg lidocaine (Lidoderm) 5% patch 3 patch 3 patch, Transdermal, EVERY 24 HOURS, First dose on Thu09/11/21 at 0745, Until Discontinued, Apply patch(es) for 12 hours, and then remove for 12 hours., Routine Patch Applied 09/14/2021 6:51 AM EDT 3 patches 18- Thigh Posterior (Right) Patch Applied 09/13/2021 6:49 AM EDT 3 patches 16- Thigh Anterior (Right) Patch Applied 09/12/2021 8:30 AM EDT 3 patches 15- Thigh Anterior (Left) lidocaine (Lidoderm) topical patch REMOVAL Transdermal, EVERY 24 HOURS, First dose on Thu09/11/21 at 1930, Until Discontinued, Remove lidocaine 5 %(700 mg/patch) patch midazolam (pf) (Versed) (1 mg/mL) injection 1 mg 1 mg, Intravenous, EVERY 5 MIN PRN, Starting on Thu09/10/21 at 1140, Until Tu09/10/21 at 1832, Other, Sedation or prior to injection of local anesthetic, Hold for delirium/agitation. (Maximum dose 5 mg)., Day of Surgery (Day of Procedure), Routine Given 09/10/2021 1:01 PM EDT 1 mg Given 09/10/2021 12:56 PM EDT 1 mg naproxen (Naprosyn) tablet 250 mg 250 mg, Oral, 2 TIMES DAILY PRN, Starting on Gerda 09/12/21 at 0702, Until Thu09/13/21 at 1224, Pain, Take with food or milk, Routine Given 09/12/2021 5:11 PM EDT 250 mg Given 09/12/2021 9:23 AM EDT 250 mg naproxen (Naprosyn) tablet 500 mg 500 mg, Oral, 2 TIMES DAILY WITH MEALS, First dose (after last modification) on Thu09/13/21 at 1700, Until Discontinued, Take with food or milk, Routine Given 09/14/2021 9:06 AM EDT 500 mg Given 09/13/2021 5:34 PM EDT 500 mg ondansetron (pf) (Zofran) (2 mg/mL) injection 4 mg 4 mg, Intravenous, EVERY 8 HOURS PRN, Starting on Thu09/10/21 at 2136, Until 09/14/21 at 1454, Nausea, May repeat times one in 30 minutes if ineffective. If multiple antiemetics are ordered, use ondansetron first, Recovery (Recovery-Hospital Unit) ondansetron (Zofran) tablet 4 mg 4 mg, Oral, EVERY 8 HOURS PRN, Starting on Thu09/10/21 at 2136, Until 09/14/21 at 1454, Nausea, Vomiting, If multiple antiemetics are ordered, use ondansetron first. PO Preferred. If patient unable to take PO, may give IV if ordered. May repeat times one in 45 minutes if ineffective., Recovery (Recovery-Hospital Unit), Routine oxyCODONE (Roxicodone) tablet 10-20 mg 10-20 mg, Oral, EVERY 4 HOURS PRN, Starting on Thu09/11/21 at 0721, Until Thu09/11/21 at 1300, Pain, Give 10mg for mild pain (1-3), 15 mg for moderate pain (4-6) or 20 mg for severe pain (7-10) May give an additional 5 mg in 30 minutes ONCE if pain not relieved., Routine Given 09/11/2021 10:21 AM EDT 20 mg oxyCODONE (Roxicodone) tablet 10-20 mg 10-20 mg, Oral, EVERY 4 HOURS PRN, Starting on Thu09/12/21 at 0703, Until Thu09/12/21 at 1100, Pain, Give 10 mg for mild pain (1-3), 15 mg for moderate pain (4-7) or 20 mg for severe pain (8-10) May give an additional 5 mg in 30 minutes ONCE if pain not relieved., Routine Given 09/12/2021 7:44 AM EDT 20 mg oxyCODONE (Roxicodone) tablet 5-15 mg 5-15 mg, Oral, EVERY 4 HOURS PRN, Starting on Thu09/10/21 at 1745, Until Thu09/11/21 at 0723, Pain, Give 5 mg for mild pain (1-3), 10 mg for moderate pain (4-6) or 15 mg for severe pain (7-10) May give an additional 5 mg in 30 minutes ONCE if pain not relieved., Routine Given 09/11/2021 6:34 AM EDT 15 mg Given 09/11/2021 3:08 AM EDT 15 mg Given 09/10/2021 10:44 PM EDT 15 mg pantoprazole EC (Protonix) tablet 20 mg 20 mg, Oral, DAILY, First dose on Thu09/10/21 at 1815, Until Discontinued, DO NOT CRUSH OR OPEN Given 09/14/2021 10:14 AM EDT 20 mg Given 09/13/2021 9:04 AM EDT 20 mg Given 09/12/2021 9:17 AM EDT 20 mg senna-docusate (Pericolace) 8.6-50 mg per tablet 2 tablet 2 tablet, Oral, 2 TIMES DAILY, First dose on Thu09/10/21 at 2200, Until Discontinued, Routine Given 09/11/2021 8:08 AM EDT 2 tablets sodium chloride 0.9 % (flush) (BD PosiFlush Normal Saline 0.9) flush 5 mL 5 mL, Intravenous, 2 TIMES DAILY, First dose on Thu09/10/21 at 2100, Until Discontinued, Recovery (Recovery-Hospital Unit), Routine Given 09/13/2021 8:10 PM EDT 5 mLs Given 09/13/2021 9:05 AM EDT 5 mLs Given 09/12/2021 9:22 AM EDT 5 mLs sodium chloride 0.9% infusion 1,000 mL, at 100 mL/hr, Intravenous, CONTINUOUS, Starting on Thu09/10/21 at 1800, Until Thu09/14/21 at 1454, Recovery (Recovery-Hospital Unit) New Bag 09/13/2021 5:55 PM EDT 1,000 mLs 100 mL/hr New Bag 09/12/2021 7:03 PM EDT 1,000 mLs 100 mL/hr New Bag 09/10/2021 6:08 PM EDT 1,000 mLs 100 mL/hr tiZANidine (Zanaflex) tablet 2 mg 2 mg, Oral, 3 TIMES DAILY PRN, Starting on Thu09/13/21 at 1746, Until Thu09/14/21 at 1454, Muscle spasms, Routine Given 09/14/2021 10:59 AM EDT 2 mg Given 09/14/2021 12:15 AM EDT 2 mg tiZANidine (Zanaflex) tablet 4 mg 4 mg, Oral, 3 TIMES DAILY PRN, Starting on Thu09/11/21 at 0924, Until Thu09/12/21 at 1100, Muscle spasms, Routine Given 09/11/2021 10:57 PM EDT 4 mg tiZANidine (Zanaflex) tablet 4 mg 4 mg, Oral, 3 TIMES DAILY PRN, Starting on Thu09/13/21 at 1227, Until Thu09/13/21 at 1746, Muscle spasms, Routine Given 09/13/2021 3:04 PM EDT 4 mg tiZANidine (Zanaflex) tablet 6 mg 6 mg, Oral, 3 TIMES DAILY PRN, Starting on Thu09/12/21 at 1358, Until Thu09/13/21 at 1227, Muscle spasms, Routine Given 09/13/2021 3:54 AM EDT 6 mg tiZANidine (Zanaflex) tablet 8 mg 8 mg, Oral, 3 TIMES DAILY PRN, Starting on Thu09/12/21 at 1057, Until Thu09/12/21 at 1358, Muscle spasms, Routine Given 09/12/2021 11:09 AM EDT 8 mg warfarin (Coumadin) tablet 5 mg 5 mg, Oral, ONCE, 1 dose, On Thu09/10/21 at 1200, DO NOT SPLIT, CRUSH OR OPEN, Day of Surgery (Day of Procedure), STAT Given 09/10/2021 12:15 PM EDT 5 mg warfarin (Coumadin) tablet 5 mg 5 mg, Oral, ONCE, 1 dose, On Thu09/11/21 at 1700, DO NOT SPLIT, CRUSH OR OPEN, Routine Given 09/11/2021 4: 11 PM EDT 5 mg warfarin (Coumadin) tablet 5 mg 5 mg, Oral, ONCE, 1 dose, On Thu09/12/21 at 1700, DO NOT SPLIT, CRUSH OR OPEN, Routine Given 09/12/2021 5: 12 PM EDT 5 mg documented in this encounter Active and Recently Administered Medications Times are shown in EDT. Scheduled Medication Order 09/12/2021 09/13/2021 09/14/2021 acetaminophen (Tylenol) tablet 1,000 mg 1,000 mg, Oral, EVERY 6 HOURS SCHEDULED, First dose (after last modification) on Thu09/11/21 at 1200, Until Discontinued, Maximum dose of acetaminophen is 4000 mg from all sources in 24 hours. When ordered for pain, acetaminophen should be given even when other ordered pain medications are indicated. , Routine 0556 (Given - Provider: Shira Almanzar RN)1109 (Given - Provider: Jose Antonio Houston Jr., SONNY)1712 (Given - Provider: Jose Antonio Houston Jr., SONNY)2350 (Given - Provider: Ivan Kuhn RN) 0508 (Given - Provider: Ivan Kuhn RN)1144 (Given - Provider: Gabbie Cox RN)1838 (Given - Provider: Gabbie Cox RN) 0012 (Given - Provider: Ivan Kuhn RN)0608 (Given - Provider: Ivan Kuhn RN)1127 (Given - Provider: Gabbie Cox RN) aspirin EC tablet 81 mg 81 mg, Oral, 2 TIMES DAILY, First dose on Thu09/13/21 at 1315, Until Discontinued, Do not crush or chew, Routine 1305 (Given - Provider: Gabbie Cox RN)2009 (Given - Provider: Ivan Kuhn RN) 1014 (Given - Provider: Gabbie Cox RN) bisacodyL (Dulcolax) suppository 10 mg 10 mg, Rectal, DAILY, First dose (after last modification) on Thu09/13/21 at 1330, Until Discontinued, Administer if needed per patient's routine or if no bowel movement within 48 hours to achieve: (1) One bowel movement every 48 hours, AND (2) without straining., Routine 1330 (Not Given - Provider: Gabbie Cox RN - Reason: Patient/family refused) 0900 (Not Given - Provider: Gabbie Cox RN - Reason: Patient/family refused) citalopram (CeleXA) tablet 20 mg 20 mg, Oral, NIGHTLY, First dose on Thu09/10/21 at 2200, Until Discontinued, Routine 2015 (Given - Provider: Ivan Kuhn RN) 2009 (Given - Provider: Ivan Kuhn RN) docusate sodium (Colace) capsule 200 mg (CANCELED) 200 mg, Oral, 2 TIMES DAILY, First dose on Thu09/12/21 at 0900, Until Discontinued, Routine 0916 (Given - Provider: Jose Antonio Houston Jr., RN)2015 (Given - Provider: Ivan Kuhn RN) 09 (Given - Provider: Gabbie Cox RN) fenofibrate micronized (Lofibra) capsule 67 mg 67 mg, Oral, NIGHTLY, First dose (after last modification) on Thu09/13/21 at 2100, Until Discontinued, Routine 2008 (Given - Provider: Ivan Kuhn RN) gabapentin (Neurontin) capsule 300 mg 300 mg, Oral, 3 TIMES DAILY, First dose on Thu09/12/21 at 1500, Until Discontinued, Routine 1552 (Given - Provider: Jose Antonio Houston Jr., RN)2015 (Given - Provider: Ivan Kuhn RN) 0903 (Given - Provider: Gabbie Cox, SONNY)1629 (Not Given - Provider: Gabbie Cox, SONNY - Reason: See comment - Comment: given zanaflex at 1500. Pt asleep at 1600. Per ok to hold to not overmedicate)2009 (Given - Provider: Ivna Kuhn RN) 101 (Given - Provider: Gabbie Cox, SONNY) lactated Ringers 1,000 mL IV bolus (COMPLETED) Intravenous, ONCE, 1 dose, On Thu09/12/21 at 2100 2025 (New Bag - Provider: Ivan Kuhn RN) levothyroxine (Synthroid) tablet 100 mcg 100 mcg, Oral, NIGHTLY, First dose on Thu09/10/21 at 2200, Until Discontinued, Pt takes qhs, STAT 2014 (Given - Provider: Ivna Kuhn RN) 2010 (Given - Provider: Ivan Kuhn RN) lidocaine (Lidoderm) 5% patch 3 patch(Linked Group 1) 3 patch, Transdermal, EVERY 24 HOURS, First dose on Thu09/11/21 at 0745, Until Discontinued, Apply patch(es) for 12 hours, and then remove for 12 hours., Routine 0830 (Patch Applied - Provider: Jose Antonio Houston Jr., RN) 0649 (Patch Applied - Provider: Ivan Kuhn RN) 0651 (Patch Applied - Provider: Ivan Kuhn RN) lidocaine (Lidoderm) topical patch REMOVAL(Linked Group 1) Transdermal, EVERY 24 HOURS, First dose on Thu09/11/21 at 1930, Until Discontinued, Remove lidocaine 5 %(700 mg/patch) patch 1929 (Patch Removed - Provider: Ivan Kuhn RN) 1929 (Patch Removed - Provider: Gabbie Cox RN) naproxen (Naprosyn) tablet 500 mg 500 mg, Oral, 2 TIMES DAILY WITH MEALS, First dose (after last modification) on Thu09/13/21 at 1700, Until Discontinued, Take with food or milk, Routine 1734 (Given - Provider: Gabbie Cox RN) 0906 (Given - Provider: Gabbie Cox RN) pantoprazole EC (Protonix) tablet 20 mg 20 mg, Oral, DAILY, First dose on Thu09/10/21 at 1815, Until Discontinued, DO NOT CRUSH OR OPEN 0917 (Given - Provider: Jose Antonio Houston Jr., RN) 0904 (Given - Provider: Gabbie Cox RN) 1014 (Given - Provider: Gabbie Cox RN) sodium chloride 0.9 % (flush) (BD PosiFlush Normal Saline 0.9) flush 5 mL 5 mL, Intravenous, 2 TIMES DAILY, First dose on Thu09/10/21 at 2100, Until Discontinued, Recovery (Recovery-Hospital Unit), Routine 0922 (Given - Provider: Jose Antonio Houston Jr., RN)2100 (Not Given - Provider: Ivan Kuhn RN - Reason: See comment - Comment: infusing) 09 (Given - Provider: Gabbie Cox RN)2009 (Given - Provider: Ivan Kuhn RN) 0900 (Not Given - Provider: Gabbie Cox RN - Reason: See comment - Comment: pt to D/C. IV to be removed) warfarin (Coumadin) tablet 5 mg (COMPLETED) 5 mg, Oral, ONCE, 1 dose, On Gerda 09/12/21 at 1700, DO NOT SPLIT, CRUSH OR OPEN, Routine 1712 (Given - Provider: Jose Antonio Houston Jr., RN) Continuous Medication Order 09/12/2021 09/13/2021 09/14/2021 sodium chloride 0.9% infusion 1,000 mL, at 100 mL/hr, Intravenous, CONTINUOUS, Starting on Thu09/10/21 at 1800, Until 09/14/21 at 1454, Recovery (Recovery-Hospital Unit) 1903 (New Bag - Provider: Jose Antonio Houston Jr., SONNY) 1755 (New Bag - Provider: Gabbie Cox RN) 0730 (Stopped - Provider: Gabibe Cox RN) PRN Medication Order 09/12/2021 09/13/2021 09/14/2021 bisacodyl EC (Dulcolax) tablet 10 mg 10 mg, Oral, 2 TIMES DAILY PRN, Starting on Thu09/10/21 at 2137, Until 09/14/21 at 1454, Constipation, DO NOT CRUSH OR OPEN Administer if needed per patient's routine or if no bowel movement within 48 hours to achieve: (1) One bowel movement every 48 hours, AND (2) without straining. If multiple PRN bowel medications ordered, start with lactulose, then oral bisacodyl, then bisacodyl suppository. Multiple medications may be given concomitantly for constipation., Routine docusate sodium (Colace) capsule 200 mg 200 mg, Oral, 2 TIMES DAILY PRN, Starting on Thu09/13/21 at 1415, Until 09/14/21 at 1454, Constipation, Routine HYDROmorphone (Dilaudid) tablet 2 mg 2 mg, Oral, EVERY 4 HOURS PRN, Starting on Thu09/13/21 at 1256, Until 09/14/21 at 1454, Pain, For additional 2mg dose if patient gets 4mg or 6mg as the initial dose, Routine 1302 (Given - Provider: Gabbie Cox RN) HYDROmorphone (Dilaudid) tablet 4-8 mg (CANCELED) 4-8 mg, Oral, EVERY 4 HOURS PRN, Starting on Thu09/11/21 at 1259, Until Gerda 09/12/21 at 0703, Pain, Give 4 mg for mild pain (1-3), 6 mg for moderate pain (4-7) or 8 mg for severe pain (8-10), Routine 0351 (Given - Provider: Shira Almanzar RN) HYDROmorphone (Dilaudid) tablet 4-8 mg 4-8 mg, Oral, EVERY 4 HOURS PRN, Starting on Thu09/12/21 at 1058, Until 09/14/21 at 1454, Pain, Give 4 mg for mild pain (1-3) 6 mg for moderate pain (4-7) or 8 mg for severe pain (8-10) If pain not relieved 30-60 minutes after a dose of 4mg or 6mg, may give additional 2mg dose ONCE., Routine 1109 (Given - Provider: Jose Antonio Houston Jr., RN)1552 (Given - Provider: Jose Antonio Houston Jr., RN)2016 (Given - Provider: Ivan Kuhn RN) 0213 (Given - Provider: Ivan Kuhn RN)0649 (Given - Provider: Ivan Kuhn, SONNY)1143 (Given - Provider: Gabbie Cox, SONNY)1734 (Given - Provider: Gabbie Cox RN)2142 (Given - Provider: Ivan Kuhn RN) 0328 (Given - Provider: Ivan Kuhn RN)0727 (Given - Provider: Gabbie Cox RN)1127 (Given - Provider: Gabbie Cox RN) ketorolac (Toradol) (30 mg/mL) injection 15 mg () 15 mg, Intravenous, EVERY 6 HOURS PRN, Starting on Thu09/10/21 at 1745, Until Gerda 09/12/21 at 1744, Pain, Routine 1013 (Given - Provider: Jose Antonio Houston Jr., RN) lidocaine (Xylocaine) 1% (10 mg/mL) injection 3 mg 3 mg (0.3 mL), Subcutaneous, ONCE PRN, 1 dose, Starting on Thu09/10/21 at 2136, Until 09/14/21 at 1454, for discomfort with PIV insertion, Recovery (Recovery-Hospital Unit), Routine naproxen (Naprosyn) tablet 250 mg (CANCELED) 250 mg, Oral, 2 TIMES DAILY PRN, Starting on Gerda 09/12/21 at 0702, Until Thu09/13/21 at 1224, Pain, Take with food or milk, Routine 0923 (Given - Provider: Jose Antonio Houston Jr., SONNY)1711 (Given - Provider: Jose Antonio Houston Jr., RN) ondansetron (pf) (Zofran) (2 mg/mL) injection 4 mg(Linked Group 2) 4 mg, Intravenous, EVERY 8 HOURS PRN, Starting on Thu09/10/21 at 2136, Until 09/14/21 at 1454, Nausea, May repeat times one in 30 minutes if ineffective. If multiple antiemetics are ordered, use ondansetron first, Recovery (Recovery-Hospital Unit) ondansetron (Zofran) tablet 4 mg(Linked Group 2) 4 mg, Oral, EVERY 8 HOURS PRN, Starting on Thu09/10/21 at 2136, Until 09/14/21 at 1454, Nausea, Vomiting, If multiple antiemetics are ordered, use ondansetron first. PO Preferred. If patient unable to take PO, may give IV if ordered. May repeat times one in 45 minutes if ineffective., Recovery (Recovery-Hospital Unit), Routine oxyCODONE (Roxicodone) tablet 10-20 mg (CANCELED) 10-20 mg, Oral, EVERY 4 HOURS PRN, Starting on Gerda 09/12/21 at 0703, Until Gerda 09/12/21 at 1100, Pain, Give 10 mg for mild pain (1-3), 15 mg for moderate pain (4-7) or 20 mg for severe pain (8-10) May give an additional 5 mg in 30 minutes ONCE if pain not relieved., Routine 0744 (Given - Provider: Jose Antonio Houston Jr., RN) sodium chloride 0.9 % (flush) (BD PosiFlush Normal Saline 0.9) flush 5-20 mL 5-20 mL, Intravenous, EVERY 1 MIN PRN, Starting on Thu09/10/21 at 2136, Until 09/14/21 at 1454, flush, Flush pertains to all indwelling lines. Flush per protocol found in the job aid using the link provided on this medication record., Recovery (Recovery-Hospital Unit), Routine tiZANidine (Zanaflex) tablet 2 mg 2 mg, Oral, 3 TIMES DAILY PRN, Starting on Thu09/13/21 at 1746, Until 09/14/21 at 1454, Muscle spasms, Routine 0015 (Given - Provider: Ivan Kuhn, SONNY)1059 (Given - Provider: Gabbie Cox RN) tiZANidine (Zanaflex) tablet 4 mg (CANCELED) 4 mg, Oral, 3 TIMES DAILY PRN, Starting on Thu09/13/21 at 1227, Until Thu09/13/21 at 1746, Muscle spasms, Routine 1504 (Given - Provider: Gabbie Cox, SONNY) tiZANidine (Zanaflex) tablet 6 mg (CANCELED) 6 mg, Oral, 3 TIMES DAILY PRN, Starting on Thu09/12/21 at 1358, Until Thu09/13/21 at 1227, Muscle spasms, Routine 0354 (Given - Provider: Ivan Kuhn, SONNY) tiZANidine (Zanaflex) tablet 8 mg (CANCELED) 8 mg, Oral, 3 TIMES DAILY PRN, Starting on Thu09/12/21 at 1057, Until Thu09/12/21 at 1358, Muscle spasms, Routine 1109 (Given - Provider: Jose Antonio Houston Jr., RN) Linked Groups Order Group 1: lidocaine (Lidoderm) 5% patch 3 patchJump to med 3 patch, Transdermal, EVERY 24 HOURS, First dose on Thu09/11/21 at 0745, Until Discontinued, Apply patch(es) for 12 hours, and then remove for 12 hours., Routine And lidocaine (Lidoderm) topical patch REMOVALJump to med Transdermal, EVERY 24 HOURS, First dose on Thu09/11/21 at 1930, Until Discontinued, Remove lidocaine 5 %(700 mg/patch) patch Group 2: ondansetron (Zofran) tablet 4 mgJump to med 4 mg, Oral, EVERY 8 HOURS PRN, Starting on Thu09/10/21 at 2136, Until 09/14/21 at 1454, Nausea, Vomiting, If multiple antiemetics are ordered, use ondansetron first. PO Preferred. If patient unable to take PO, may give IV if ordered. May repeat times one in 45 minutes if ineffective., Recovery (Recovery-Hospital Unit), Routine Or ondansetron (pf) (Zofran) (2 mg/mL) injection 4 mgJump to med 4 mg, Intravenous, EVERY 8 HOURS PRN, Starting on Thu09/10/21 at 2136, Until 09/14/21 at 1454, Nausea, May repeat times one in 30 minutes if ineffective. If multiple antiemetics are ordered, use ondansetron first, Recovery (Recovery-Hospital Unit) documented in this encounter Care Teams Soil Checker Relationship Specialty Start Date End Date Ja Ordaz MD [address] [place] [address] PCP - General Emergency Medicine 03/11/21 documented as of this encounter
--- OUTSIDE RECORDS SUMMARY | 2024-04-05 16:25 | XMS_ITS | Encounter Summary ---
Author Organization [facility] Address [facility] Alyssa [place] [place] [address] Care Team Providers Care Medical Technologist Generalist Name Role Phone Ja Ordaz MD Primary Care Provider [phone] Reason for Referral * Home Health Care (Routine) - Closed Specialty Diagnoses / Procedures Referred By Cindy t Referred To Contact Unknown Specialty Diagnoses S/P TKR (total knee replacement), left Wayne Sanchez MD [facility] [place] [address] Referral ID Status Reason Start Date Expiration Date V isits Requested Visits Authorized [id number] Closed Continuity of Care 09/16/2021 03/15/2022 1 1 Reason for Visit * Reason Onset Date Comments Post Procedure Call 09/16/2021 Encounter Details Date Type Department Care Team (Late st Contact Info) Description 09/16/2021 Telephone [place] [address] Clinic, Dr Sanchez Team None Post Procedure Call Social History Tobacco Use Types Packs/Day Years [...] encounter Miscellaneous Notes * Telephone Encounter - Labombard, Sarah L, RN - 09/16/2021 1:41 PM EDT Images from the original note were not included. Contacted the patient at this time in order to discuss her concerns further. She had sent in a picture of the knee last night (see attached picture). She states she was instructed to post-pone PT fora week post surgery, keep the leg in extension, and she has been icing and elevating about the level of her heart. She needs [facility] to send Nursing/Wound Care out today as she has no other dressings and needs them to assist her. A call has been placed to [facility] ([phone]) at this time in order to discuss needs with them. At their request, a new home health order has been placed specifying need for Nursing Evaluation/Wound Care. This was faxed to [phone]. * Telephone Encounter - Livia Obrien - 09/16/2021 1:25 PM EDT Call Center Call Note Provider: ADELSO DOI: N/A DOS: 09/10/21 Procedure: L TKA REV Surgeon: ADELSO Reason for call:Patient called in and stated that the home health order needs to be updated with the correct date and to not include the physical therapy at this time. She states that she had to reach out to the ortho provider manager generation due to the amount of bleeding yesterday. She needs this order sent RA so that she can get [facility] to come to her house today to change her bandage again as she says she has bled through again. Please update home health referral and re-fax as soon as possible. Chart reviewed to answer questions: Yes Team message being sent to: Sports Does patient have my-DH: Yes; has MyDH but would prefer a call to [phone] . Okay to leave a detailed message Yes. Best contact number: [phone] Response needed: yes. Patient was informed that they will be contacted by a member of the team within 48 hours Can we leave a detailed voicemail if patient does not answer the phone? Yes documented in this encounter Plan of Treatment Upcoming Encounters Date Type Department Care Team (Latest Contact Info) Description 04/06/2024 11:30 AM EST Hospital Encounter [place] [address] Cadence Eric MD [facility] [place] [address] 04/06/2024 11:30 AM EST - 04/06/2024 12:50 PM EST Surgery [place] [address] Cadence Eric MD [facility] [place] [address] IMPLANT NEUROSTIMULATOR ELECTRODES, PERIPHERAL NERVE (WRVU 5.76) 04/14/2024 2:30 PM EST Office Visit [facility] [place] [address] Cadence Eric MD [facility] [place] [address] Scheduled Procedures Name Priority Associated Diagnoses Date/Ti [...] to Home Health Outpatient Referral Routine S/P TKR (total knee replacement), left Ordered: 09/16/2021 documented as of this encounter Visit Diagnoses Diagnosis S/P TKR (total knee replacement), left Saphenous neuralgia, right documented in this encounter Care Teams Medical Technologist Generalist Relationship Specialty Start Date End Date Ja Ordaz MD [address] [place] [address] PCP - General Emergency Medicine 03/11/21 documented as of this encounter
--- OUTSIDE RECORDS SUMMARY | 2024-04-05 16:25 | XMS_ITS | Encounter Summary ---
Author Organization [facility] Address [facility] [place] [address] Care Team Providers Care Quality Systems Manager Name Role Phone Ja Ordaz MD Primary Care Provider [phone] Reason for Visit * Reason Onset Date Comments Other 09/23/2021 Encounter Details Date Type Department Care Team (Late st Contact Info) Description 09/23/2021 Telephone [place] [address] Christian Balderas MD [facility] [place] [address] Other Social History Tobacco Use Types Packs/Day [...] Telephone Encounter - Lindsay Villafuerte - 09/23/2021 10:20 AM EDT Error documented in this encounter Plan of Treatment Upcoming Encounters Date Type Department Care Team (Latest Contact Info) Description 04/06/2024 11:30 AM EST Hospital Encounter Outpatient [place] [address] Cadence Eric MD [facility] [place] [address] 04/06/2024 11:30 AM EST - 04/06/2024 12:50 PM EST Surgery [place] [address] Cadence Eric MD [facility] [place] [address] IMPLANT NEUROSTIMULATOR ELECTRODES, PERIPHERAL NERVE (WRVU 5.76) 04/14/2024 2:30 PM EST Office Visit [facility] [place] [address] Cadence Eric MD [facility] [place] [address] Scheduled Procedures Name Priority Associated Diagnoses Date/Ti [...] on filedocumented in this encounter Care Teams Quality Systems Manager Relationship Specialty Start Date End Date Ja Ordaz MD [address] [place] [address] PCP - General Emergency Medicine 03/11/21 documented as of this encounter
--- OUTSIDE RECORDS SUMMARY | 2024-04-05 16:25 | XMS_ITS | Encounter Summary ---
[place] [address] Care Team Providers Care Extruder Operator Name Role Phone Ja Ordaz MD Primary Care Provider [phone] Reason for Visit * Reason Onset Date Comments Questions 09/27/2021 Encounter Details Date Type Department Care Team ([facility] Contact Info) Description 09/27/2021 Telephone [place] [phone] Clinic, Dr Sanchez Team None Questions Social [...] * Telephone Encounter - Iris Le - 09/30/2021 11:28 AM EDT Received call from Marilia stating that the incision was dry, well approximated. She left it open toair. Patient is being discharged from home nurse visits on 10/02/21 and from PT on Thursday10/04/21. Patient is going to their vacation home in [place]. Will need to speak with patient in regards to starting outpatient PT. As well as discussing swimming with recent TKA revision. * Telephone Encounter - Iris Le - 09/30/2021 10:58 AM EDT Called Etelvina to discuss her incision. She stated she has showered and left it open to dry. I asked her to send a picture of the incision to our [email or web address] email so we can review. Plan: receive picture of knee incision and review with team. * Telephone Encounter - Iris Le - 09/30/2021 10:55 AM EDT LVM for Marilia stating we will need a picture of the incision prior to making any decisions about leaving the dressing off and showering. Awaiting call back. * Telephone Encounter - Ronald Park - 09/27/2021 9:44 AM EDT Name of person calling: [facility] Facility person is calling from?: [facility] What is the question: They are calling to let us know that boubacar is doing really well, she has almost completed her antibiotics and there is no drainage. They are wanting to know if they can leave off the dressings and let the patient shower? Best number to reach the caller: [phone] documented in this encounter Plan of Treatment Upcoming Encounters Date Type Department Care Team (Latest Contact Info) Description 04/06/2024 11:30 AM EST Hospital Encounter Outpatient [place] [phone] Cadence Eric MD [facility] [place] [address] 04/06/2024 11:30 AM EST - 04/06/2024 12:50 PM EST Surgery Outpatient [place] [address] Cadence Eric MD [facility] [place] [address] IMPLANT NEUROSTIMULATOR ELECTRODES, PERIPHERAL NERVE (WRVU 5.76) 04/14/2024 2:30 PM EST Office Visit [facility] [place] [address] Cadence Eric MD [facility] [place] [address] Scheduled Procedures Name Priority Associated Diagnoses Date/Ti [...] on filedocumented in this encounter Care Teams Extruder Operator Relationship Specialty Start Date End Date Ja Ordaz MD [address] [place] [address] PCP - General Emergency Medicine 03/11/21 documented as of this encounter
--- OUTSIDE RECORDS SUMMARY | 2024-04-05 16:25 | XMS_ITS | Encounter Summary ---
Author Organization [facility] Address [facility] [place] [address] Care Team Providers Care Bacteriologist Fishery Name Role Phone Ja Ordaz MD Primary Care Provider [phone] Encounter Details Date Type Department Care Team (Late st Contact Info) Description 09/15/2021 [place] [address] Blane Parra MD [facility] DR [place] [address] Social History Tobacco Use Types Packs/Day Years [...] encounter Miscellaneous Notes * Telephone Encounter - Blane Parra MD - 09/15/2021 1:07 PM EDT Patient phone call Patient underwent revision total knee arthroplasty 09/[address] Sanchez Patient was discharged yesterday afternoon. Patient calling today as she noted a small area of drainage on her dressing. It appears yellow in nature. Denies any recent fevers chills increasing pain or other findings. Discussed with patient is typical for wounds to release some serous drainage during the healing process there is usually not sign of an infection. Requested that she kiet the area of drainage with a marker and she should keep an eye on it over the next day or 2. If the drainage dramatically increases or her dressing saturates fully she should give us a call at that time. Patient agrees to plan. Blane Parra MD Orthopaedic Surgery Pager: [phone] documented in this encounter Plan of Treatment Upcoming Encounters Date Type Department Care Team (Latest Contact Info) Description 04/06/2024 11:30 AM EST Hospital Encounter [place]patient [place] [address] Cadence Eric MD [facility] [place] [address] 04/06/2024 11:30 AM EST - 04/06/2024 12:50 PM EST Surgery [place]patient [place] [address] Cadence Eric MD [facility] [place] [address] IMPLANT NEUROSTIMULATOR ELECTRODES, PERIPHERAL NERVE (WRVU 5.76) 04/14/2024 2:30 PM EST Office Visit [place] [address] Cadence Eric MD [facility] [place] [address] Scheduled Procedures Name Priority Associated Diagnoses Date/Ti [...] on filedocumented in this encounter Care Teams Bacteriologist Fishery Relationship Specialty Start Date End Date Ja Ordaz MD [address] [place] [address] PCP - General Emergency Medicine 03/11/21 documented as of this encounter
--- OUTSIDE RECORDS SUMMARY | 2024-04-05 16:25 | XMS_ITS | Encounter Summary ---
Author Organization [facility] Address [facility] [place] [address] Care Team Providers Care Ppap Coordinator Name Role Phone Ja Ordaz MD Primary Care Provider [phone] Reason for Visit * Auth/Cert Specialty Diagnoses / Procedures Referred By Cindy t Referred To Contact Diagnoses Presence of left artificial knee joint Pain in left knee Other chronic pain LEFT failed total knee replacement, LEFT KNEE Procedures PRO REVISE KNEE JOINT REPLACE, ALL PARTS @TOTAL KNEE REVISION ARTHROPLASTY, COMPLETE (WRVU 27.11) MODIFIER,GMK REVISION KNEE,MEDACTA Referral ID Status Reason Start Date Expiration Date Visits Re quested Visits Authorized [id number] 1 1 Encounter Details Date Type Department Care Team (Late st Contact Info) Description 09/10/2021 1:30 PM EDT - 09/10/2021 4:45 PM EDT [place] [id number] Lydia Sanchez MD [facility] [place] [address] @TOTAL KNEE REVISION ARTHROPLASTY, COMPLETE (WRVU 27.11) Social History Tobacco Use Types Packs/Day Years [...] Sign Reading Time Taken Comments Blood Pressure 101/64 09/10/2021 2:00 PM EDT Pulse 59 09/10/2021 2:00 PM EDT Temperature 36.9 ??C (98.4 ??F) 09/10/2021 11:48 AM E DT Respiratory Rate 12 09/10/2021 2:00 PM EDT Oxygen Saturation 99% 09/10/2021 2:00 PM EDT Inhaled Oxygen Concentration - - Weight 108.4 kg (239 lb) 09/10/2021 11:48 AM EDT Height 152.4 cm (5') 09/10/2021 11:48 AM EDT Body Mass Index 46.68 09/10/2021 11:48 AM EDT documented in this encounter Discharge Summaries * Keisha Aparicio MD - 09/14/2021 7:48 AM EDT Discharge Summary Patient Name: Etelvina Willoughby Patient Age: 60 y.o. Language: Mongolian Race: White Ethnicity: Not nor Admit date: 09/10/2021 Discharge date and time: 09/14/2021 Attending Physician: Lydia Sanchez MD Discharge Physician: Lydia Sanchez MD Follow-up Recommendations for Providers: See discharge instructions for additional details. Future Appointments Date Time Provider Department Center 10/16/2021 10:[address] [facility] DX ROOM [address] [facility] Rad 10/16/2021 11:10 AM Clinic, Dr Sanchez Team [facility] [place] 3D [facility] [place] Inpatient Provider Contact Information: Lydia Sanchez MD Orthopedics: [phone] After hours and weekends, call [facility] [place] Superintendent Warehouse, , and have the Orthopedic resident paged. [...] * Rosa Maria, JENNY Sanchez - Physician Call Center Nurse Procedure(s): @TOTAL KNEE REVISION ARTHROPLASTY, COMPLETE (WRVU [...] Weight: Wt Readings from Last 1 Encounters: 05// 108.4 kg (239 lb) Height: Ht Readings from Last 1 Encounters: 05//22 152.4 cm (5') HC: HC Readings from [...] 3 wbc, hgb, hct plt Recent Labs 05/06 1356 09/13/21 0337 09/12/21 0337 WBC 7.9 [...] Last Ca, Mg, Phos Recent Labs 09/13/21 0337 CALCIUM 8.3* Last 3 Coags Recent Labs 09/13/21 0337 09/12/21 0337 09/11/21 0300 PT 16.7* 14.9* 13.0* INR 1.5 [...] who have questions please contact the health inspector health care facilities that requested your imaging first. Electronically signed by: Royce Ramon MD, [facility] ([phone]), at 09/11/2021 2:32 AM Pending Studies and Lab Data at Discharge: * No orders in the log * Transfusions: No Discharge Conditions/Prognosis: Stable, awake, and alert. Mobilizing as noted above, pain controlled on oral medications. Discharge to: [facility]. [address] [place] [address] PHONE: [phone] FAX: [phone] Updated Allergies/ADRs: Allergies Allergen Reactions ??? Peanut [...] 1 tablet Refills: 0 Narcan 4 mg/actuation [place] instill 1 spray in 1 NOSTRIL if [...] bowel movement. You can also take an rwad-zxz-mvuhhnt medication, Miralax if needed to combat constipation. [...] dose. 5. You can also try an buth-oys-qretpaq patch that is used for pain called [...] as much as possible. Call your doctor ([phone]) if you develop: 1. Fever greater than 100.5 2. Severe nausea or vomiting 3. Increasing pain that is not controlled by pain medications 4. Increasing redness, swelling, or drainage from incisions 5. Change in sensation FOLLOW-UP APPOINTMENTS: 1. You will have follow-up appointments at [facility] [place] as indicated below in Future Appointment and Orders. 2. You will need to have x-rays prior to your follow-up appointment on 10/16. Please come to Radiology, desk , 1 hour BEFORE that appointment for those x-rays. Future Appointments Date Time Provider Department Center 10/16/2021 10:[address] [facility] DX ROOM [address] [facility] Rad 10/16/2021 11:10 AM Clinic, Dr Sanchez Team [facility] [place] [address] [place] [address] If you have questions or concerns: Thursday through Thursday, 8 AM - 5 PM, please call Dr. Lydia Sanchez MD's office at . If it is after 5 PM, the weekend, or holidays, please call and ask to speak with theOrthopedic resident on-call. General Instructions None Future Appointments and Orders Future Appointments and Orders Future Appointments Provider Department Dept Phone 10/16/2021 10:[address] [facility] DX ROOM 1 XRay at [facility] [place] Arrive at: [facility] [phone] Please go to [facility] 3T ([place] Location). 10/16/2021 11:[address] [facility] Daniel Orthopaedics at [facility] [place] Arrive at: [facility] [phone] Future Orders Complete By Expires Referral to Home Health [REF34 Custom] As directed Process Instructions: If no progress note charted, please enter Clinical details in comments. Scheduling Instructions: Comments: Please evaluate Etelvina Willoughby for admission to Home Health. 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 HOME HEALTH AGENCY: [facility]. [address] [place] [address] PHONE: [phone] FAX: [phone] Fpc(SN) eval if indicated on admission visit DVT [...] PCP: Ja Ordaz MD [address] [place] [address] All VNA agencies which cover patient's residence area have been reviewed, either verbally or in writing, and patient/family have chosen the indicated home health agency. Questions: Disciplines Requested: Physical Therapy Primary Care Provider: Ja Ordaz MD [phone] Discharge References/Attachments None documented in this encounter [...] bowel movement. You can also take an dsgb-yhh-csmcycb medication, Miralax if needed to combat constipation. [...] dose. 5. You can also try an nqbj-lzm-dfobslp patch that is used for pain called [...] as much as possible. Call your doctor ([phone]) if you develop: Fever greater than 100.5 Severe nausea or vomiting Increasing pain that is not controlled by pain medications Increasing redness, swelling, or drainage from incisions Change in sensation FOLLOW-UP APPOINTMENTS: 1. You will have follow-up appointments at [facility] [place] as indicated below in Future Appointment and Orders. 2. You will need to have x-rays prior to your follow-up appointment on 10/16. Please come to Radiology, desk 3T, 1 hour BEFORE that appointment for those x-rays. Future Appointments Date Time Provider Department Center 10/16/2021 10:[address] [facility] DX ROOM [address] [facility] Rad 10/16/2021 11:10 AM Clinic, Dr Sanchez Team [facility] [place] 3D [facility] [place] If you have questions or concerns: Thursday [...] daily. 2 gummies daily=4MG NARCAN 4 mg/actuation [place], Non-Aerosol instill 1 spray in 1 NOSTRIL if needed for opioid overdose may re... (REFER TO PRESCRIPTION NOTES). 0 12/08/2018 multivitamin with minerals Tablet Take 1 tablet by mouth daily. morphine sulfate/D5W (MORPHINE IN D5W) 1 mg/mL Prefilled Pump Young Inject as directed. Has intrathecal pump with [...] 09/14/2021 09/23/2021 amoxicillin (AMOXIL) 500 mg TabletIndications:Prim eliseo osteoarthritis [...] of this encounter Progress Notes * Gabbie Cox RN - 09/14/2021 12:50 PM EDT Pt [...] full assessment. 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 ENDOSCOPY ??? PRO COLONOSCOPY, DIAGNOSTIC ?? 09/23/2011 ?? COLONOSCOPY, DIAGNOSTIC performed by NIKKI MAYORGA at [facility] ENDOSCOPY ??? PRO ELECTRONIC PUMP ANALYSIS W REPROGRAMMING AND REFILL BY JOSE N/A 03/30/2019 ?? ELECTRONIC HERNANDEZ PROG., PUMP- DRUG INFUS; W/ REPROGRAM & REFILL REQ MD (WRVU 0.9) performed by Karl Becker MD at [facility] PAIN MGMT MSO ??? PRO ELECTRONIC PUMP ANALYSIS W REPROGRAMMING AND REFILL BY JOSE N/Radha 12/05/2019 ?? ELECTRONIC HRENANDEZ PROG., PUMP- DRUG INFUS; W/ REPROGRAM & REFILL REQ (WRVU 0.9) performed by Karl Becker MD at [facility] PAIN MGMT MSO ??? PRO ELECTRONIC PUMP ANALYSIS W REPROGRAMMING AND REFILL BY JOSE N/Radha 03/12/2020 ?? ELECTRONIC HERNANDEZ PROG., PUMP- DRUG INFUS; W/ REPROGRAM & REFILL REQ (WRVU 0.9) performed by Karl Becker MD at [facility] PAIN MGMT MSO ??? PRO ELECTRONIC PUMP ANALYSIS W REPROGRAMMING AND REFILL BY JOSE N/Radha 11/07/2020 ?? ELECTRONIC HERNANDEZ PROG., PUMP- DRUG INFUS; W/ REPROGRAM & REFILL REQ (WRVU 0.9) performed by Karl Becker MD at [facility] PAIN MGMT MSO ??? PRO ELECTRONIC PUMP ANALYSIS W REPROGRAMMING AND REFILL BY JOSE N/Radha 03/13/2021 ?? ELECTRONIC HERNANDEZ PROG., PUMP- DRUG INFUS; W/ REPROGRAM & REFILL REQ (WRVU 0.9) performed by Karl Becker MD at [facility] PAIN MGMT MSO ??? PRO IMP SPINAL CANAL CATH Midline 03/23/2019 ?? IMPLANT, REV OR REP TUNNELED INTRATHACAL OR EPIDURAL CATHETER (WRVU 6.05) performed by Karl Becker MD at [facility] MAIN OR ??? PRO INSERT/ REPLACE INFUSN PUMP, PROGRAMMABLE Right 03/23/2019 ?? IMPLANT OR REPLACE PROG. PUMP-DRUG INFUSION (WRVU 5.6) performed by Melani Darden MD at [facility] MAIN OR ??? PRO LAP, CHOLECYSTECTOMY/GRAPH N/A 10/18/2016 ?? LAPAROSCOPIC CHOLECYSTECTOMY WITH CHOLANGIOGRAM (WRVU 11.47) performed by Tasia Umaña MD at [facility] MAIN OR ??? PRO LAP, SURG, REPAIR, VENTRAL, UMBILICAL, SPIGELIAN/EPIGASTRIC HERNIA; INCARCERATED/STRANGULATED N/A 07/12/2018 ?? LAPAROSCOPIC HERNIA, VENTRAL, INCARCERATED, W-WO MESH (WRVU 14.94) performed by Manish Blanco MD at [facility] MAIN OR ??? PRO TOTAL KNEE ARTHROPLASTY Left 03/29/2020 ?? TOTAL KNEE ARTHROPLASTY (WRVU 20.72) performed by Maykel Jacobson MD at [facility] MAIN OR ??? XR JOINT ASPIRATION - LARGE JOINT LEFT Left 07/03/2021 ?? XR Fluoro Guided Joint Aspiration Large Left 07/03/[address] [facility] RAD XRAY ? Social History: Patient lives [...] Pt independent while seated in bed to doff patariqmas; Pt attempted to don bra however deferred 2' feeling uncomfortable ?? Pt applied deodorant independently while seated in long sit in bed. ?? Pt supervision to don T-shirt while seated long sit in bed ?? Pt educated and provided AE (LH asset protection detective) to assist w/ improving and promoting functional independence w/ LB dressing tasks. After demonstration, pt able to don underwear using LH asset protection detective CGA. 2' increased pain and pants having cuffs at ankles, pt required min A to thread BLE through pant legs using LH asset protection detective. Pt able to stand EOB using FWW [...] Occupational Therapy: 31 (schm x 2) Pager: [phone] STACI GREENE 09/14/2021 Occupational Therapy Rehabilitation Department [...] ??? sodium chloride 0.9% 1,000 mL (09/13/21 2565) OBJECTIVE: Temp: [36.7 ??C (98.1 ??F)-37.1 ??C [...] Time Provider Department Center 10/16/2021 10:[address] [facility] DX ROOM [address] [facility] Rad 10/16/2021 11:10 AM Clinic, Dr Sanchez Team [facility] [place] 3D [facility] [place] * Ivan Kuhn RN - 09/14/2021 3:40 [...] station, purposeful rounding, bed alarm * Radha Chilel PT - 09/13/2021 3:12 PM EDT Physical [...] Mobility: Supine to Sit: independent with leg data integrity specialist Sit to Supine: independent with increased time and effort; leg data integrity specialist not utilized Other: able to reposition self independently in bed PRN use of leg data integrity specialist to LLE Transfers: Sit to Stand: modified [...] plan as stated. Time IN / OUT: 3778-4691 Total Minutes, Physical Therapy: 25 Billing Code: x2 TEF Thank you for this consult. Radha Chilel, PT Pager: [phone] Physical Therapy Inpatient Rehabilitation Department * Faizan [...] ??? sodium chloride 0.9% 1,000 mL (09/12/21 190) OBJECTIVE: Temp: [36.4 ??C (97.5 ??F)-36.8 ??C [...] Time Provider Department Center 10/16/2021 10:[address] [facility] DX ROOM [address] [facility] Rad 10/16/2021 11:10 AM Clinic, Dr Sanchez Team [facility] [place] 3D [facility] [place] * Ivan Kuhn RN - 09/13/2021 4:20 AM EDT OUTCOME EVALUATION NOTE: OUTCOME SUMMARY: Pt. A/Ox4, no c/o SOB, n/v, chest pain, numbness/tingling. VSS throughout shift w/ low BP at beginning of shift in 90s/40s, 1 L bolus LR given w/good effect. will continue to monitor. Pain controled well with scheduled and PRN meds. See JUL. IV on L leaking replaced / on R. Voiding in bathroom w/SBA and [...] if applicable: N/a * Jose Antonio Houston Jr. RN - 09/12/2021 4:43 PM EDT OUTCOME [...] independent with increased time and effort; leg data integrity specialist provided Transfers: Sit to Stand: supervised with [...] plan as stated. Time IN / OUT: 0103-0067 Total Minutes, Physical Therapy: 40 Billing Code: x2 TEF Thank you for this consult. Radha Chilel, PT Pager: [phone] Physical Therapy Inpatient Rehabilitation Department * Jarocho Shirley - 09/12/2021 1:44 PM EDT Mud Jack Operator Encounter Note Patient Name: Etelvina Willoughby DOB: [id number] MR#: [id number] Admit Date: 09/10/2021 11:28 AM Hospital Day 2 days Narrative: Visited to introduce and assess acceptance of Mud Jack Operator services.Pt was not available as medical staff [...] Dispo: pending PT/OT eval Follow-up: As scheduled Faiazn Mcdonald MD 09/12/2021 Future Appointments Date Time Provider Department Center 10/16/2021 10:[address] [facility] DX ROOM [address] [facility] Rad 10/16/2021 11:10 AM Clinic, Dr Sanchez Team [facility] [place] 3D [facility] [place] * Shira Almanzar, RN - 09/12/2021 5:27 AM EDT OUTCOME [...] ADLs]: Arms reach Surveillance [continuous indirect monitoring]: Masimo, room near nursing station, call erid within reach, purposeful rounding Patient-specific fall prevention [...] nerve block. Faizan Serrano MD * Radha Chilel PT - 09/11/2021 2:52 PM EDT Physical [...] hernia, with obstruction, without gangrene 06/24/2018 ??? 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 ENDOSCOPY ??? PRO COLONOSCOPY, DIAGNOSTIC 09/23/2011 COLONOSCOPY, DIAGNOSTIC performed by NIKKI MAYORGA at [facility] ENDOSCOPY ??? PRO ELECTRONIC PUMP ANALYSIS W REPROGRAMMING AND REFILL BY /NAHID N/A 03/30/2019 ELECTRONIC HERNANDEZ PROG., PUMP- DRUG INFUS; W/ REPROGRAM & REFILL MILAGRO DAWSON (WRVU 0.9) performed by Karl Becker MD at [facility] PAIN MGMT MSO ??? PRO ELECTRONIC PUMP ANALYSIS W REPROGRAMMING AND REFILL BY /NAHID N/A 12/05/2019 ELECTRONIC HERNANDEZ PROG., PUMP- DRUG INFUS; W/ REPROGRAM & REFILL REQ (WRVU 0.9) performed by Karl Becker MD at [facility] PAIN MGMT MSO ??? PRO ELECTRONIC PUMP ANALYSIS W REPROGRAMMING AND REFILL BY JOSE N/A 03/12/2020 ELECTRONIC HERNANDEZ PROG., PUMP- DRUG INFUS; W/ REPROGRAM & REFILL REQ (WRVU 0.9) performed by Karl Becker MD at [facility] PAIN MGMT MSO ??? PRO ELECTRONIC PUMP ANALYSIS W REPROGRAMMING AND REFILL BY JOSE N/A 11/07/2020 ELECTRONIC HERNANDEZ PROG., PUMP- DRUG INFUS; W/ REPROGRAM & REFILL REQ (WRVU 0.9) performed by Karl Becker MD at [facility] PAIN MGMT MSO ??? PRO ELECTRONIC PUMP ANALYSIS W REPROGRAMMING AND REFILL BY JOSE N/Radha 03/13/2021 ELECTRONIC HERNANDEZ PROG., PUMP- DRUG INFUS; W/ REPROGRAM & REFILL REQ (WRVU 0.9) performed by Karl Becker MD at [facility] PAIN MGMT MSO ??? PRO IMP SPINAL CANAL CATH Midline 03/23/2019 IMPLANT, REV OR REP TUNNELED INTRATHACAL OR EPIDURAL CATHETER (WRVU 6.05) performed by Karl Becker MD at [facility] MAIN OR ??? PRO INSERT/ REPLACE INFUSN PUMP, PROGRAMMABLE Right 03/23/2019 IMPLANT OR REPLACE PROG. PUMP-DRUG INFUSION (WRVU 5.6) performed by Melani Darden MD at [facility] ADEEL ??? PRO LAP, CHOLECYSTECTOMY/GRAPH N/A 10/18/2016 LAPAROSCOPIC CHOLECYSTECTOMY WITH CHOLANGIOGRAM (WRVU 11.47) performed by Tasia Umaña MD at [facility] MAIN OR ??? PRO LAP, SURG, REPAIR, VENTRAL, UMBILICAL, SPIGELIAN/EPIGASTRIC HERNIA; INCARCERATED/STRANGULATED N/A 07/12/2018 LAPAROSCOPIC HERNIA, VENTRAL, INCARCERATED, W-WO MESH (WRVU 14.94) performed by Izzy Blanco MD at [facility] MAIN OR ??? PRO TOTAL KNEE ARTHROPLASTY Left 03/29/2020 TOTAL KNEE ARTHROPLASTY (WRVU 20.72) performed by Maykel Jacobson MD at [facility] MAIN OR ??? XR JOINT ASPIRATION - LARGE JOINT LEFT Left 07/03/2021 XR Fluoro Guided Joint Aspiration Large Left 07/03/[address] [facility] RAD XRAY Social History: Home set-up: Patient [...] mobility recommendations discussed with nursing. Assessment: Etelvina Willoughby was seen today for [...] outlinedin this evaluation. Time IN / OUT: 4897-3748 Total Minutes, Physical Therapy: 30 Billing Code: Tanner Zena Thank you for this consult. Radha Chilel, PT Pager: [phone] Physical Therapy Inpatient Rehabilitation Department * Mirella Cano RN - 09/11/2021 2:01 PM EDT The Patient has been provided a list of Home Health Agencies/DME vendors which serve their preferred geographic area. A letter describing our affiliations was reviewed with them and they were educated about their right to choose where referrals are placed. Patient requests referral to [facility] [address] [place] [address] PHONE: [phone] FAX: [phone] Expected date of discharge: 09/12/2021 Referral routed to the Third Cook for matching with agency/vendor and to provide [...] Time Provider Department Center 10/16/2021 10:[address] [facility] DX ROOM [address] [facility] Rad 10/16/2021 11:10 AM Clinic, Dr Sanchez Team [facility] [place] 3D [facility] [place] * Bryan Jackson RN - 09/11/2021 3:10 [...] Landis RN - 09/10/2021 5:43 PM EDT 173) Patient into PACU from OR. Attached to monitors, alarms on and appropriate for patient. Duarte 1900) Patient meets PACU dc criteria. No room currently available and patient may be a boarder herein PACU overnight. Bladder scanned for 334 ml and patient says she feels wet. Linens wet. Patientplaced on bedpain for 400ml. Linens changed and patient cleaned up. Reece DENNIS 193) Patient working on her dinner meal. Reece DENNIS 2099) Handoff to Bryan PAKU RN. Reece DENNIS documented in this encounter H&P Notes * [...] hernia, with obstruction, without gangrene 06/24/2018 ??? alf current use of opiate analgesic Oxycodone 10 [...] AD's have not been completed spouse Josh Shah Khalif would be surrogate decision maker per [place] surrogate decision making law. (Only good for 180 days) Any patient receiving care at [facility] [place] [place] must abide by [place] law. The hierarchy for surrogate decision making [...] (i) The agent with financial power of commonwealth attorney or a conservator appointed in accordance with [...] Environmental Concerns: Resource/Environmental Concerns: none Current DME: silvia - tanner [facility] - standard Home Address confirmed as: [address] [place] [address] Social & Family Supports: All names listed below confirmed with patient as current and correct Extended Emergency Contact Information Primary Emergency Contact: Josh Willoughby Address: [facility] [address] [place] [address] [facility] Mobile Relation: Spouse Secondary Emergency [...] Type: *No Product type* / Secondary Insurance: [facility] OOS Prescription Coverage: Yes Preferred Pharmacy: [id number] - [place], [place] - [address] [facility] [address] [facility] [address] [facility] [address] [address] [place] [address] [place], [place] [address] [facility] [address] [place] [address] [facility] [place] [address] [address] [place], [place] [address] [facility] [address] [address] [facility], [place] - [address] [facility] [address] [facility] [address] [id number] - [facility] [place] [address] [facility] [address] [facility] [address] [facility] [place] [address] [facility] [address] [facility] [address] [facility] [address] - [facility] [place] - [address] [facility] [address] [facility] [address] [place] Status: Patient is a : Primary Care Provider: aJ Ordaz MD [phone] Patient/Caregiver Goals of Treatment: recovery post procedure [...] planning. Office of Care Management Surgery Team Manager Digital Mirella EPSTEIN RN [email or web address] Pager #[phone] * Initial Assessments - Gissell Gold, OT - 09/11/2021 9:39 AM EDT Occupational [...] hernia, with obstruction, without gangrene 06/24/2018 ??? alf current use of opiate analgesic Oxycodone 10 [...] BX performed by NIKKI MAYORGA at [facility] ENDOSCOPY ??? PRO COLONOSCOPY, DIAGNOSTIC 09/23/2011 COLONOSCOPY, DIAGNOSTIC performed by NIKKI MAYROGA at [facility] ENDOSCOPY ??? PRO ELECTRONIC PUMP ANALYSIS W REPROGRAMMING AND REFILL BY JOSE N/A 03/30/2019 ELECTRONIC HERNANDEZ PROG., PUMP- DRUG INFUS; W/ REPROGRAM & REFILL REQ (WRVU 0.9) performed by Karl Becker MD at [facility] PAIN MGMT MSO ??? PRO ELECTRONIC PUMP ANALYSIS W REPROGRAMMING AND REFILL BY JOSE N/A 12/05/2019 ELECTRONIC HERNANDEZ PROG., PUMP- DRUG INFUS; W/ REPROGRAM & REFILL REQ (WRVU 0.9) performed by Karl Becker MD at [facility] PAIN MGMT MSO ??? PRO ELECTRONIC PUMP ANALYSIS W REPROGRAMMING AND REFILL BY JOSE N/Radha 03/12/2020 ELECTRONIC HERNANDEZ PROG., PUMP- DRUG INFUS; W/ REPROGRAM & REFILL REQ (WRVU 0.9) performed by Karl Becker MD at [facility] PAIN MGMT MSO ??? PRO ELECTRONIC PUMP ANALYSIS W REPROGRAMMING AND REFILL BY JOSE N/Radha 11/07/2020 ELECTRONIC HERNANDEZ PROG., PUMP- DRUG INFUS; W/ REPROGRAM & REFILL REQ (WRVU 0.9) performed by Karl Becker MD at [facility] PAIN MGMT MSO ??? PRO ELECTRONIC PUMP ANALYSIS W REPROGRAMMING AND REFILL BY JOSE N/Radha 03/13/2021 ELECTRONIC HERNANDEZ PROG., PUMP- DRUG INFUS; W/ REPROGRAM & REFILL REQ (WRVU 0.9) performed by Karl Becker MD at [facility] PAIN MGMT MSO ??? PRO IMP SPINAL CANAL CATH Midline 03/23/2019 IMPLANT, REV OR REP TUNNELED INTRATHACAL OR EPIDURAL CATHETER (WRVU 6.05) performed by Karl Becker MD at [facility] OR ??? PRO INSERT/ REPLACE INFUSN PUMP, PROGRAMMABLE Right 03/23/2019 IMPLANT OR REPLACE PROG. PUMP-DRUG INFUSION (WRVU 5.6) [facility] ??? PRO LAP, CHOLECYSTECTOMY/GRAPH N/A 10/18/2016 LAPAROSCOPIC CHOLECYSTECTOMY WITH CHOLANGIOGRAM (WRVU 11.47) performed by Tasia Umaña MD at [facility] MAIN OR ??? PRO LAP, SURG, REPAIR, VENTRAL, UMBILICAL, SPIGELIAN/EPIGASTRIC HERNIA; INCARCERATED/STRANGULATED N/A 07/12/2018 LAPAROSCOPIC HERNIA, VENTRAL, INCARCERATED, W-WO MESH (WRVU 14.94) performed by Izzy Blanco MD at [facility] MAIN OR ??? PRO TOTAL KNEE ARTHROPLASTY Left 03/29/2020 TOTAL KNEE ARTHROPLASTY (WRVU 20.72) performed by Maykel Jacobson MD at [facility] MAIN OR ??? XR JOINT ASPIRATION - LARGE JOINT LEFT Left 07/03/2021 XR Fluoro Guided Joint Aspiration Large Left 07/03/2021 Brisa Florez, PA [facility] RAD XRAY Social History: Patient lives with [...] & Perception: ?? WNL/WFL ?? corrective lenses real time analyst Communication: WFL tangential but circular Range of [...] planning. Total Minutes, Occupational Therapy: 24 (Eval [id number]) OT Evaluation Code Rationale: ?? Diagnosis & [...] and measurable assessment of functional outcome. Pager: [phone] Gissell Gold OTR/L 09/11/2021 Occupational Therapy Rehabilitation Department * Op Note - Faizan Mcdonald MD - 09/10/2021 2:43 PM EDT [facility] – [place] Operative Note Patient Name: Etelvina Willoughby : [id number] MR#: [id number] Case Date: 09/10/2021 Surgeon: Surgeon(s) and Role: * Lydia Sanchez MD - Primary * Faizan Mcdonald MD - Fellow * Rosa Maria, JENNY Sanchez - Physician Call Center Nurse Preoperative Diagnosis: Failed Left total knee arthroplasty Postoperative Diagnosis: Same Procedure Performed: left Total Knee Arthroplasty Revision Complete (CPT 85507) Removal of antibiotic spacer from knee Anesthesia: [...] circumferentially down to the implant/bone interface. A [place] was inserted at this interface to lever [...] Implant Name Type Inv. Item Serial No. Customs Inspector Lot No. LRB No. Used Action CEMENT BONE MEDIUM VISCOSITY 40GM GENTAMICIN SINGLE DOSE ([id number]) - [id number] IMPLANTS CEMENT BONE MEDIUM VISCOSITY 40GM GENTAMICIN SINGLE DOSE ([id number]) Experenti [facility] [id number] Left 2 Implanted FEMORAL COMPONENT ADAPTER KNEE 5MM KRISTINE ([id number]) (AUTOREQ) - [id number] IMPLANTS FEMORAL COMPONENT ADAPTER KNEE 5MM KRISTINE ([id number]) (AutoReq) [employer] [place] - [employer] [place] [id number] Left 1 Implanted BASEPLATE TIBIAL SZ 2 LEFT KRISTINE COCR GMK ([id number]) (AUTOREQ) - [id number] IMPLANTS BASEPLATE TIBIAL SZ 2 LEFT KRISTINE COCR GMK ([id number]) (AutoReq) [employer] [place] - [employer] [place] [id number] Left 1 Implanted STEM EXT KNEE [id number] POR FLUTED COCR ([id number]) (AUTOREQ) - [id number] IMPLANTS STEM EXT KNEE [id number] POR FLUTED COCR ([id number]) (AutoReq) [employer] [place] - [employer] [place] [id number] Left 1 Implanted STEM EXT KNEE [id number] POR FLUTED COCR ([id number]) (AUTOREQ) - [id number] IMPLANTS STEM EXT KNEE [id number] POR FLUTED COCR ([id number]) (AutoReq) [employer] [place] [place] [id number] Left 1 Implanted AUGMENT WEDGE FEM KNEE 4MM SIZE 3 DIST TI GMK ([id number]) (AUTOREQ) - [id number] IMPLANTS AUGMENT WEDGE FEM KNEE 4MM SIZE 3 DIST TI GMK ([id number]) (AutoReq) [employer] [place] - [employer] [place] [id number] Left 1 Implanted AUGMENT WEDGE FEM KNEE 4MM SIZE 3 DIST TI GMK ([id number]) (AUTOREQ) - [id number] IMPLANTS AUGMENT WEDGE FEM KNEE 4MM SIZE 3 DIST TI GMK ([id number]) (AutoReq) [employer] [place] - [employer] [place] [id number] Left 1 Implanted COMP FEMORAL KNEE SZ 2 LEFT KRISTINE PS COCR ([id number]) (AUTOREQ) - [id number] IMPLANTS COMP FEMORAL KNEESZ 2 LEFT KRISTINE PS COCR ([id number]) (AutoReq) [employer] [place] - [employer] [place] [id number] Left 1 Implanted medacta patella size 2 E-cross [employer] [place] - [place] [place] [id number] Left 1 Implanted INSERT TIBIAL 14MM SZ 2 FIX POLY GMK ([id number]) (AUTOREQ) - [id number] IMPLANTS INSERT TIBIAL 14MM SZ 2 FIX POLY GMK ([id number]) (AutoReq) [employer] [place] [place] [id number] Left 1 Implanted Faizan Mcdonald MD 09/10/2021 Associated attestation - Lydia Sanchez MD - 09/16/2021 2:03 PM EDT Attestation: Case Date: 09/10/2021 - 09/11/2021 I performed this procedure without the involvement of a resident.Faizan Mcdonald DO assisted in thissurgery as no qualified resident was available. Izzy Rosam Aria DWIGHT worked under my direction for the duration of the operative session. The historian research assistant adequately prepped the operative site and maintained the best possible exposure of anatomy incident to the procedure. LYDIA SANCHEZ MD 09/16/2021 documented in this encounter Plan of Treatment Upcoming Encounters Date Type Department Care Team (Latest Contact Info) Description 04/06/2024 11:30 AM EST Hospital Encounter [place] [address] Cadence Eric MD [facility] [address] 04/06/2024 11:30 AM EST - 04/06/2024 12:50 PM EST Surgery [place] [place] [address] Cadence Eric MD [facility] [place] [address] IMPLANT NEUROSTIMULATOR ELECTRODES, PERIPHERAL NERVE (WRVU 5.76) 04/14/2024 2:30 PM EST Office Visit [place] [phone] Cadence Eric MD [facility] [place] [address] Scheduled Procedures Name Priority Associated Diagnoses Date/Ti [...] pain Revise Knee Joint Replace, All Parts (71497) Yes 09/10/2021 2:07 PM EDT Status post [...] White Blood Cell 7.9 4.0 - 9.5 x10(3)/mc L [facility] Red Blood Cell 3.03(L) 4.00 - 5.21 x10(6)/mc L [facility] Hemoglobin 8.7(L) 11.7 - 15.5 g/dL [facility] Hematocrit 26.7(L) 35.7 - 45.8 % [facility] Mean Cell Volume 88.1 82.6 - 94.4 fL [facility] Mean Cell Hemoglobin 28.7 27.1 - 32.0 pg [facility] Mean Cell Hemoglobin Concentration 32.6 31.7 - 35.0 g/dL [facility] Platelet 295 145 - 357 x10(3)/ L [facility] RDW Standard Deviation 41.4 37.0 - 46.0 fL [facility] RDW coefficient of variation 12.9 11.5 - 14.1 % [facility] Mean Platelet Volume 10.6 7.6 - 12.9 fL [facility] NRBC% auto 0.0 % [facility] NRBC Absolute 0.000 0.000 - 0.000 x10(3)/ L [facility] Blood 09/13/2021 1:56 PM EDT 09/13/2021 2:10 PM EDT Narrative Resulting Agency Comment Spec In Lab Miesha Burkett APRN HEMATOLOGY ORDERA BLES [facility] [place] [address] * COVID-19 PCR (09/13/2021 4:04 AM EDT) SARS-CoV-2 RNA Not Detected Not Detected [facility] Comment: This result should be [...] diagnosis of COVID-19 is performed using the [employer] m SARS-CoV-2 Assay as authorized by the FDA Emergency Use Authorization (EUA). This EUA assay is intended for In-vitro Diagnostic (IVD) use with respiratory specimens such as nasopharyngeal swabs collected from individuals during the acute phase of infection. This assay is performed based on the instructions for use provided by [employer] and additional guidance provided by [facility] and FDA. Testing is performed in the Clinical Genomics and Advanced Technology Laboratory within the Department of Pathology and Laboratory Medicine at [facility], certified under the Clinical Laboratory Improvement Amendments [...] fact sheets at the following FDA website: https://www.fda.gov/medical-devices/fwxnsbeuaxa-uspaipx-4514-ifzem-93-rieatwjik- use-a qldmbgekioify-vpqpwyd-bmwhwon/nszsy-mhwkzsblihn-vnvr SARS-CoV-2 RNA Source CRANE ENGINEER Swab [facility] Nasopharyngeal Swab 09/14/19 4:04 AM EDT 09/13/2021 7:23 AM EDT Comment:Symptoms->Surveillan ce Narrative Resulting Agency Comment Spec In Lab Lydia Sanchez MD MOLECULAR ORDERABLES [facility] [place] [address] * (ABNORMAL) Differential, Automated (09/13/2021 3:37 AM EDT) Neutrophil % 58.3 % [facility] Neutrophil Absolute 5.38 1.70 - 6.10 x10(3)/mc L [facility] Lymph % 24.4 % [facility] Lymphocytes Abs 2.2 0.9 - 3.2 x10(3)/mc L [facility] Monocyte % 13.4 % [facility] Monocyte Abs 1.2(H) 0.3 - 0.9 x10(3)/mc L [facility] Eos % 2.5 % [facility] Eosinophils Abs 0.2 0.0 - 0.4 x10(3)/mc L [facility] Basophil % 0.7 % [facility] Baso Absolute 0.1 0.0 - 0.1 x10(3)/mc L [facility] Immature Gran % 0.70 % [facility] Comment: Immature granulocytes(IG's)percentage and absolute count will include metamyelocytes, myelocytes, and promyelocytes. Blood smears from CBCs yielding IG's will be scanned manually for concordance. If this scan disagrees with the automated IG or if promyelocytes are noted, a manual differential will be performed. Immature Gran Absolute 0.06(H) 0.00 - 0.04 x10(3)/mc L [facility] Blood 09/13/2021 3:37 AM EDT 09/13/2021 3:52 AM EDT Narrative Resulting Agency Comment Spec In Lab Faizan Mcdonald MD HEMATOLOGY ORDERABLE S [facility] [place] [address] * (ABNORMAL) Hemogram (09/13/2021 3:37 AM EDT) White Blood Cell 9.2 4.0 - 9.5 x10(3)/[facility] Red Blood Cell 2.75(L) 4.00 - 5.21 x10(6)/[facility] Hemoglobin 7.9(L) 11.7 - 15.5 g/dL [facility] Hematocrit 24.2(L) 35.7 - 45.8 % [facility] Mean Cell Volume 88.0 82.6 - 94.4 fL [facility] Mean Cell Hemoglobin 28.7 27.1 - 32.0 pg [facility] Mean Cell Hemoglobin Concentration 32.6 31.7 - 35.0 g/dL [facility] Platelet 249 145 - 357 x10(3)/[facility] RDW Standard Deviation 41.1 37.0 - 46.0 [facility] RDW coefficient of variation 12.8 11.5 - 14.1 % [facility] Mean Platelet Volume 10.7 7.6 - 12.9 fL [facility] NRBC% auto 0.0 % [facility] NRBC Absolute 0.000 0.000 - 0.000 x10(3)/ L [facility] Blood 09/13/2021 3:37 AM EDT 09/13/2021 3:52 AM EDT Narrative Resulting Agency Comment Spec In Lab Faizan Mcdonald MD HEMATOLOGY ORDERABLE S Performing Organization Address [facility] [place]/[facility] Co de Phone Number [facility] [place] [address] * (ABNORMAL) Prothrombin Time (09/13/2021 3:37 AM EDT) Prothrombin Time 16.7(H) 9.4 - 12.5 sec [facility] International Normalization Ratio 1.5 [facility] Comment: An INR <2.0 indicates [...] MD HEMATOLOGY ORDERABLE S Performing Organization Address [facility] Co de Phone Number [facility] [place] [address] * (ABNORMAL) Basic Metabolic Panel (non-fasting) (09/13/2021 3:37 AM EDT) Glucose 90 65 - 199 mg/dL [facility] Comment:Diabetes: >=200 mg/d L plus symptoms Blood Urea Nitrogen 16 8 - 18 mg/dL [facility] Creatinine 0.72 0.70 - 1.20 mg/dL [facility] Sodium 132(L) 135 - 145 mmol/L [facility] Potassium 4.4 3.5 - 5.0 mmol/L [facility] Comment: Please note: ??Patients with WBC >100,000 may have falsely elevated Potassium levels. ??For accurate Potassium quantification in these patients send serum separator tube (gold top) for subsequent determinations. ??Contact the Clinical Chemistry Laboratory if there are any questions. Chloride 99 98 - 107 mmol/L [facility] Carbon Dioxide 24 22 - 31 mmol/L [facility] Anion Gap 9 5 - 15 mmol/L [facility] Calcium 8.3(L) 8.5 - 10.5 mg/dL [facility] Est Glomerular Filtration Rate 92 >=60 mL/min/1. 73 m?? [facility] Comment: This patient? s estimated [...] In Lab Faizan Mcdonald MD CHEMISTRY ORDERABLES [facility] [place] [address] * (ABNORMAL) Differential, Automated (09/12/2021 3:37 AM EDT) Neutrophil % 75.9 % [facility] Neutrophil Absolute 9.89(H) 1.70 - 6.10 x10(3)/mc L [facility] Lymph % 13.4 % [facility] Lymphocytes Abs 1.8 0.9 - 3.2 x10(3)/mc L [facility] Monocyte % 10.0 % [facility] Monocyte Abs 1.3(H) 0.3 - 0.9 x10(3)/mc L [facility] Eos % 0.1 % [facility] Eosinophils Abs 0.0 0.0 - 0.4 x10(3)/ L [facility] Basophil % 0.1 % [facility] Baso Absolute 0.0 0.0 - 0.1 x10(3)/[facility] Immature Gran % 0.50 % [facility] Comment: Immature granulocytes(IG's)percentage and absolute count will include metamyelocytes, myelocytes, and promyelocytes. Blood smears from CBCs yielding IG's will be scanned manually for concordance. If this scan disagrees with the automated IG or if promyelocytes are noted, a manual differential will be performed. Immature Gran Absolute 0.07(H) 0.00 - 0.04 x10(3)/[facility] Blood 09/12/2021 3:37 AM EDT 09/12/2021 3:57 AM EDT Narrative Resulting Agency Comment Spec In Lab Faizan Mcdonald MD HEMATOLOGY ORDERABLE S [facility] [place] [address] * (ABNORMAL) Hemogram (09/12/2021 3:37 AM EDT) White Blood Cell 13.0(H) 4.0 - 9.5 x10(3)/[facility] Red Blood Cell 3.09(L) 4.00 - 5.21 x10(6)/ L [facility] Hemoglobin 8.9(L) 11.7 - 15.5 g/dL [facility] Hematocrit 27.1(L) 35.7 - 45.8 % [facility] Mean Cell Volume 87.7 82.6 - 94.4 fL [facility] Mean Cell Hemoglobin 28.8 27.1 - 32.0 pg [facility] Mean Cell Hemoglobin Concentration 32.8 31.7 - 35.0 g/dL [facility] Platelet 273 145 - 357 x10(3)/ L [facility] RDW Standard Deviation 41.9 37.0 - 46.0 [facility] RDW coefficient of variation 13.1 11.5 - 14.1 % [facility] Mean Platelet Volume 10.4 7.6 - 12.9 [facility] NRBC% auto 0.0 % [facility] NRBC Absolute 0.000 0.000 - 0.000 x10(3)/mc L [facility] Blood 09/12/2021 3:37 AM EDT 09/12/2021 3:57 AM EDT Narrative Resulting Agency Comment Spec In Lab Faizan Mcdonald MD HEMATOLOGY ORDERABLE S Performing Organization Address [facility] de Phone Number [facility] [place] [address] * (ABNORMAL) Prothrombin Time (09/12/2021 3:37 AM EDT) Prothrombin Time 14.9(H) 9.4 - 12.5 sec [facility] International Normalization Ratio 1.3 [facility] Comment: An INR <2.0 indicates [...] MD HEMATOLOGY ORDERABLE S Performing Organization Address [facility] Co de Phone Number [facility] [place] [address] * Basic Metabolic Panel (non-fasting) (09/12/2021 3:37 AM EDT) Glucose 126 65 - 199 mg/dL [facility] Comment:Diabetes: >=200 mg/d L plus symptoms Blood Urea Nitrogen 16 8 - 18 mg/dL [facility] Creatinine 0.86 0.70 - 1.20 mg/dL [facility] Sodium 136 135 - 145 mmol/L [facility] Potassium 4.8 3.5 - 5.0 mmol/L [facility] Comment: Please note: ??Patients with WBC >100,000 may have falsely elevated Potassium levels. ??For accurate Potassium quantification in these patients send serum separator tube (gold top) for subsequent determinations. ??Contact the Clinical Chemistry Laboratory if there are any questions. Chloride 104 98 - 107 mmol/L [facility] Carbon Dioxide 24 22 - 31 mmol/L [facility] Anion Gap 8 5 - 15 mmol/L [facility] Calcium 8.7 8.5 - 10.5 mg/dL [facility] Est Glomerular Filtration Rate 74 >=60 mL/min/1. 73 m?? [facility] Comment: This patient? s estimated [...] In Lab Faizan Mcdonald MD CHEMISTRY ORDERABLES [facility] [place] [address] * (ABNORMAL) Differential, Automated (09/11/2021 3:00 AM EDT) Neutrophil % 89.2 % [facility] Neutrophil Absolute 17.38(H) 1.70 - 6.10 x10(3)/ L [facility] Lymph % 4.0 % [facility] Lymphocytes Abs 0.8(L) 0.9 - 3.2 x10(3)/ L [facility] Monocyte % 6.0 % [facility] Monocyte Abs 1.2(H) 0.3 - 0.9 x10(3)/ L [facility] Eos % 0.0 % [facility] Eosinophils Abs 0.0 0.0 - 0.4 x10(3)/[facility] Basophil % 0.1 % [facility] Baso Absolute 0.0 0.0 - 0.1 x10(3)/[facility] Immature Gran % 0.70 % [facility] Comment: Immature granulocytes(IG's)percentage and absolute count will include metamyelocytes, myelocytes, and promyelocytes. Blood smears from CBCs yielding IG's will be scanned manually for concordance. If this scan disagrees with the automated IG or if promyelocytes are noted, a manual differential will be performed. Immature Gran Absolute 0.13(H) 0.00 - 0.04 x10(3)/ L [facility] Blood 09/11/2021 3:00 AM EDT 09/11/2021 3:12 AM EDT Narrative Resulting Agency Comment Spec In Lab Faizan Mcdonald MD HEMATOLOGY ORDERABLE S [facility] [place] [address] * (ABNORMAL) Hemogram (09/11/2021 3:00 AM EDT) Pathologist [facility] White Blood Cell 19.5(H) 4.0 - 9.5 x10(3)/ L [facility] Red Blood Cell 3.48(L) 4.00 - 5.21 x10(6)/mc L [facility] Hemoglobin 10.0(L) 11.7 - 15.5 g/dL [facility] Hematocrit 30.6(L) 35.7 - 45.8 % [facility] Mean Cell Volume 87.9 82.6 - 94.4 fL [facility] Mean Cell Hemoglobin 28.7 27.1 - 32.0 pg [facility] Mean Cell Hemoglobin Concentration 32.7 31.7 - 35.0 g/dL [facility] Platelet 319 145 - 357 x10(3)/mc L [facility] RDW Standard Deviation 41.2 37.0 - 46.0 fL [facility] RDW coefficient of variation 12.8 11.5 - 14.1 % [facility] Mean Platelet Volume 10.3 7.6 - 12.9 fL [facility] NRBC% auto 0.0 % [facility] NRBC Absolute 0.000 0.000 - 0.000 x10(3)/mc L [facility] Blood 09/11/2021 3:00 AM EDT 09/11/2021 3:12 AM EDT Narrative Resulting Agency Comment Spec In Lab Faizan Mcdonald MD HEMATOLOGY ORDERABLE S [facility] [place] [address] * (ABNORMAL) Prothrombin Time (09/11/2021 3:00 AM EDT) Prothrombin Time 13.0(H) 9.4 - 12.5 sec [facility] International Normalization Ratio 1.1 [facility] Comment: An INR <2.0 indicates [...] Lab Faizan Mcdonald MD HEMATOLOGY ORDERABLE S [facility] [place] [address] * (ABNORMAL) Basic Metabolic Panel (non-fasting) (09/11/2021 3:00 AM EDT) Glucose 140 65 - 199 mg/dL [facility] Comment:Diabetes: >=200 mg/d L plus symptoms Blood Urea Nitrogen 12 8 - 18 mg/dL [facility] Creatinine 0.93 0.70 - 1.20 mg/dL [facility] Sodium 138 135 - 145 mmol/L [facility] Potassium 4.7 3.5 - 5.0 mmol/L [facility] Comment: Please note: ??Patients with WBC >100,000 may have falsely elevated Potassium levels. ??For accurate Potassium quantification in these patients send serum separator tube (gold top) for subsequent determinations. ??Contact the Clinical Chemistry Laboratory if there are any questions. Chloride 105 98 - 107 mmol/L [facility] Carbon Dioxide 23 22 - 31 mmol/L [facility] Anion Gap 10 5 - 15 mmol/L [facility] Calcium 8.3(L) 8.5 - 10.5 mg/dL [facility] Est Glomerular Filtration Rate 67 >=60 mL/min/1. 73 m?? [facility] Comment: This patient? s estimated [...] In Lab Faizan Mcdonald MD CHEMISTRY ORDERABLES Performing Organization Address City/State/[facility] Co de Phone Number [facility] [place] [address] * XR Knee 1-2 Views Left (Generic) [...] who have questions please contact the health inspector health care facilities that requested your imaging first. ? Narrative [...] patients who have questions please contactthe health inspector health care facilities that requested your imaging first. Electronically signed by: Royce Ramon MD, [facility]([phone]), at 09/11/2021 2:32 AM Faizan Mcdonald MD IMG DX ORDERABLES * SCAN DOC: IMPLANTABLE DEVICES (09/10/2021 12:00 AM EDT) Unknown MEDIA MGR SCAN EXT O RDR/RSLT documented in this encounter Visit Diagnoses Diagnosis S/P revision of total knee, left- Primary Status post left knee replacement Chronic pain of left knee Pain in joint, lower leg Left leg pain Pain in limb S/P TKR (total knee replacement), left Status post left knee replacement Chronic pain of left knee Pain in joint, lower leg Left leg pain Pain in limb Saphenous [...] 48 hours, AND (2) without straining., Routine BUpivacaine-EPINEPHrine (Marcaine-epiNEPHrine) 0.25 %-1:200,000 injection ONCE PRN, Starting on Thu09/10/21 at 1519, Until 09/14/21 at 1454, Intra-Operative (Intra-Procedure), Routine Given 09/10/2021 3:19 PM EDT 50 mLs 19- Surgical Site citalopram (CeleXA) tablet 20 mg 20 mg, Oral, NIGHTLY, First dose on Thu09/10/21 at 2200, Until Discontinued, Routine Given 09/13/2021 8:10 PM EDT 20 mg Given 09/12/2021 8:16 PM EDT 20 mg Given 09/11/2021 8:59 PM EDT 20 mg cloNIDine (pf) (Duraclon) (100 mcg/mL) Epidural injection ONCE PRN, Starting on Thu09/10/21 at 1520, Until 09/14/21 at 1454, Intra-Operative (Intra-Procedure), Routine Given 09/10/2021 3:20 PM EDT 50 mcg 19- Surgical Site docusate sodium (Colace) capsule 200 mg 200 mg, Oral, 2 TIMES DAILY PRN, Starting on Thu09/13/21 at 1415, Until 09/14/21 at 1454, Constipation, Routine fenofibrate micronized (Lofibra) capsule 67 mg 67 mg, Oral, NIGHTLY, First dose (after last modification) on Thu09/13/21 at 2100, Until Discontinued, Routine Given 09/13/2021 8:09 PM EDT 67 mg gabapentin (Neurontin) capsule 300 mg 300 mg, Oral, 3 TIMES DAILY, First dose on Thu09/12/21 at 1500, Until Discontinued, Routine Given 09/14/2021 10:14 AM EDT 300 mg Given 09/13/2021 8:10 PM EDT 300 mg Given 09/13/2021 9:03 AM EDT 300 mg HYDROmorphone (Dilaudid) tablet 2 mg 2 [...] 8 mg ketorolac (Toradol) (30 mg/mL) injection ONCE PRN, Starting on Thu09/10/21 at 1520, Until 09/14/21 at 1454, Intra-Operative (Intra-Procedure), Routine Given 09/10/2021 3:20 PM EDT 30 mg 19- Surgical Site levothyroxine (Synthroid) tablet 100 mcg 100 mcg, [...] Discontinued, Remove lidocaine 5 %(700 mg/patch) patch naproxen (Naprosyn) tablet 500 mg 500 mg, [...] minutes if ineffective., Recovery (Recovery-Hospital Unit), Routine pantoprazole EC (Protonix) tablet 20 mg 20 mg, Oral, DAILY, First dose on Thu09/10/21 at 1815, Until Discontinued, DO NOT CRUSH OR OPEN Given 09/14/2021 10:14 AM EDT 20 mg Given 09/13/2021 9:04 AM EDT 20 mg Given 09/12/2021 9:17 AM EDT 20 mg povidone-iodine (Betadine Ophthalmic Prep) 5 % ophthalmic solution ONCE PRN, Starting on Thu09/10/21 at 1520, Until 09/14/21 at 1454, Intra-Operative (Intra-Procedure), Routine Given 09/10/2021 3:20 PM EDT 30 mLs 19- Surgical Site sodium chloride 0.9 % (flush) (BD PosiFlush [...] Until 09/14/21 at 1454, Recovery (Recovery-Hospital Unit) New Bag 09/13/2021 5:55 PM EDT 1,000 mLs 100 mL/hr New Bag 09/12/2021 7:03 PM EDT 1,000 mLs 100 mL/hr New Bag 09/10/2021 6:08 PM EDT 1,000 mLs 100 mL/hr tiZANidine (Zanaflex) tablet 2 mg 2 mg, Oral, 3 TIMES DAILY PRN, Starting on Thu09/13/21 at 1746, Until 09/14/21 at 1454, Muscle spasms, Routine Given 09/14/2021 10:59 AM EDT 2 mg Given 09/14/2021 12:15 AM EDT 2 mg documented in this encounter Active and [...] (Given - Provider: Jose Antonio Houston Jr., RN)1712 (Given - Provider: Jose Antonio Houston Jr., RN)2350 (Given - Provider: Ivan Kuhn RN) 0508 [...] on Thu09/10/21 at 2200, Until Discontinued, Routine 2016 (Given - Provider: Ivan Kuhn RN) 2009 (Given - Provider: Ivan Kuhn RN) docusate sodium (Colace) capsule 200 mg (CANCELED) 200 mg, Oral, 2 TIMES DAILY, First dose on Thu09/12/21 at 0900, Until Discontinued, Routine 0916 (Given - Provider: Jose Antonio Houston Jr., SONNY)2015 (Given - Provider: Ivan Kuhn RN) 09 (Given - Provider: Gabbie Cox RN) fenofibrate micronized (Lofibra) capsule 67 mg 67 mg, Oral, NIGHTLY, First dose (after last modification) on Thu09/13/21 at 2100, Until Discontinued, Routine 2008 (Given - Provider: Ivan Kuhn, SONNY) gabapentin (Neurontin) capsule 300 mg 300 mg, Oral, 3 TIMES DAILY, First dose on Thu09/12/21 at 1500, Until Discontinued, Routine 1552 (Given - Provider: Jose Antonio Houston Jr., RN)2015 (Given - Provider: Ivan Kuhn RN) 09 (Given - Provider: Gabbie Cox RN)1629 (Not Given - Provider: Gabbie Cox RN - Reason: See comment - Comment: given zanaflex at 1500. Pt asleep at 1600. Per ok to hold to not overmedicate)2009 (Given - Provider: Ivan Kuhn RN) 1014 (Given - Provider: Gabbie Cox RN) lactated Ringers 1,000 mL IV bolus (COMPLETED) Intravenous, ONCE, 1 dose, On Thu09/12/21 at 2100 2025 (New Bag - Provider: Ivan Kuhn RN) levothyroxine (Synthroid) tablet 100 mcg 100 mcg, Oral, NIGHTLY, First dose on Thu09/10/21 at 2200, Until Discontinued, Pt takes qhs, STAT 2014 (Given - Provider: Ivan Kuhn RN) 2010 (Given - Provider: Ivan [...] (Patch Removed - Provider: Ivan Kuhn RN) 193 (Patch Removed - Provider: Gabbie Cox RN) [...] (Given - Provider: Jose Antonio Houston Jr., RN)2099 (Not Given - Provider: Ivan Kuhn RN - Reason: See comment - Comment: infusing) 09 (Given - Provider: Gabbie Cox RN)2009 (Given - Provider: Ivan Kuhn RN) 09 (Not Given - Provider: Gabbie Cox RN [...] Bag - Provider: Jose Antonio Houston Jr., RN) 1755 (New Bag - Provider: Gabbie Cox, SONNY) 0730 (Stopped - Provider: Gabbie Cox, SONNY) PRN Medication Order 09/12/2021 09/13/2021 09/14/2021 bisacodyl [...] dose, Routine 1302 (Given - Provider: Gabbie Cox, SONNY) HYDROmorphone (Dilaudid) tablet 4-8 mg (CANCELED) 4-8 [...] HOURS PRN, Starting on Gerda 09/12/21 at 1058, Until 09/14/21 at 1454, Pain, [...] Ivan Kuhn RN)0649 (Given - Provider: Ivan Kuhn RN)1143 (Given - Provider: Gabbie Cox RN)1734 (Given - Provider: Gabbie Cox RN)2142 (Given - Provider: Ivan Kuhn RN) 0328 (Given - Provider: Ivan Kuhn RN)0727 (Given - Provider: Gabbie Cox RN)1127 (Given - Provider: Gabbie Cox RN) ketorolac (Toradol) (30 mg/mL) injection 15 mg () 15 mg, Intravenous, EVERY 6 HOURS PRN, Starting on 09/10/21 at 1745, Until Gerda 09/12/21 at 1744, Pain, Routine 1013 (Given - Provider: Jose Antonio Houston Jr., RN) lidocaine (Xylocaine) 1% (10 mg/mL) injection 3 mg 3 mg (0.3 mL), Subcutaneous, ONCE PRN, 1 dose, Starting on 09/10/21 at 2136, Until 09/14/21 at 1454, for discomfort with PIV insertion, Recovery (Recovery-Hospital Unit), Routine naproxen (Naprosyn) tablet 250 mg (CANCELED) 250 mg, Oral, 2 TIMES DAILY PRN, Starting on Gerda 09/12/21 at 0702, Until Thu09/13/21 at 1224, Pain, Take with food or milk, Routine 09 (Given - Provider: Jose Antonio Houston Jr., SONNY)1711 (Given - Provider: Jose Antonio Houston Jr., RN) ondansetron (pf) (Zofran) (2 mg/mL) injection 4 mg(Linked Group 2) 4 mg, Intravenous, EVERY 8 HOURS PRN, Starting on 09/10/21 at 2136, Until 09/14/21 at 1454, Nausea, [...] minutes ONCE if pain not relieved., Routine 07 (Given - Provider: Jose Antonio Houston Jr., RN) sodium chloride 0.9 % (flush) (BD PosiFlush Normal Saline 0.9) flush 5-20 mL 5-20 mL, Intravenous, EVERY 1 MIN PRN, Starting on Tu09/10/21 at 2136, Until 09/14/21 at 1454, flush, [...] spasms, Routine 1504 (Given - Provider: Gabbie Cox RN) tiZANidine (Zanaflex) tablet 6 mg (CANCELED) 6 mg, Oral, 3 TIMES DAILY PRN, Starting on Thu09/12/21 at 1358, Until Thu09/13/21 at 1227, Muscle spasms, Routine 0354 (Given - Provider: Ivan Kuhn RN) tiZANidine (Zanaflex) tablet 8 mg (CANCELED) 8 mg, Oral, 3 TIMES DAILY PRN, Starting on Thu09/12/21 at 1057, Until Gerda 09/12/21 at 1358, Muscle spasms, Routine 1109 (Given [...] PRN, Starting on Thu09/10/21 at 2136, Until Thu09/14/21 at 1454, Nausea, Vomiting, If multiple antiemetics are ordered, use ondansetron first. PO Preferred. If patient unable to take PO, may give IV if ordered. May repeat times one in 45 minutes if ineffective., Recovery (Recovery-Hospital Unit), Routine Or ondansetron (pf) (Zofran) (2 mg/mL) injection 4 mgJump to med 4 mg, Intravenous, EVERY 8 HOURS PRN, Starting on 09/10/21 at 2136, Until 09/14/21 at 1454, Nausea, May repeat times one in 30 minutes if ineffective. If multiple antiemetics are ordered, use ondansetron first, Recovery (Recovery-Hospital Unit) documented in this encounter Care Teams Ppap Coordinator Relationship Specialty Start Date End Date Ja Ordaz MD [address] [place] [address] PCP - General Emergency Medicine 03/11/21 documented as of this encounter
--- OUTSIDE RECORDS SUMMARY | 2024-04-05 16:25 | XMS_ITS | Encounter Summary ---
Author Organization [facility] Address [facility] [place] [address] Care Team Providers Care Dormitory Keeper Name Role Phone Ja Ordaz MD Primary Care Provider [phone] Reason for Visit * Reason Onset Date Comments Medication Refill 09/25/2021 Encounter Details Date Type Department Care Team (Late st Contact Info) Description 09/25/2021 [place] [address] Wayne Sanchez MD [facility] [place] [address] Medication Refill Social History Tobacco Use Types Packs/Day Years [...] encounter Miscellaneous Notes * Telephone Encounter - Tiffanie Ochoa - 09/25/2021 4:01 PM EDT Etelvina called stating she has not received the RX she was promised to get her through until Thursday09/30/21 when she has an appointment with her PCP to obtain an Opiod contract. Looked at Magi's last note and saw Izzy Hansenor had indeed sent the RX to [facility]. Called [facility] to confirm. The did receive, fill, and the RX were both picked up by , Johs at 5:48 pm. Called Etelvina back and she adamantly states Magi told her we would be sending another RX for moremeds. Made Magi aware patient is not happy and wants to speak to her again. Magi agreed to call her back. documented in this encounter Plan of Treatment Upcoming Encounters Date Type Department Care Team (Latest Contact Info) Description 04/06/2024 11:30 AM EST Hospital Encounter [place] [address] Cadence Eric MD [facility] [place] [address] 04/06/2024 11:30 AM EST - 04/06/2024 12:50 PM EST Surgery [place] [address] Cadence Eric MD [facility] [place] [address] IMPLANT NEUROSTIMULATOR ELECTRODES, PERIPHERAL NERVE (WRVU 5.76) 04/14/2024 2:30 PM EST Office Visit [place] [address] Cadence Eric MD [facility] [address] Scheduled Procedures Name Priority Associated Diagnoses Date/Ti [...] on filedocumented in this encounter Care Teams Dormitory Keeper Relationship Specialty Start Date End Date Ja Ordaz MD [address] [place] [address] PCP - General Emergency Medicine 03/11/21 documented as of this encounter
--- OUTSIDE RECORDS SUMMARY | 2024-04-05 16:25 | XMS_ITS | Encounter Summary ---
Author Organization [facility] [place] [address] Care Team Providers Care Services Rep Name Role Phone Ja Ordaz MD Primary Care Provider [phone] Reason for Visit * Reason Onset Date Comments Questions 09/17/2021 Encounter Details Date Type Department Care Team (Late st Contact Info) Description 09/17/2021 Telephone [place] [phone] Clinic, Dr Sanchez Team None Questions Social [...] * Telephone Encounter - Toan Gilliam - 09/17/2021 11:59 AM EDT Returned call to Izzy Cerna, physical therapist with visiting nurse. Answer questions about physicaltherapy, INR draws, and NSAIDs. First, patient is to start physical therapy for balance, endurance, joint mobility, range of motion, and strength following total knee arthroplasty protocols. Initially, the patient had declined physical therapy services and nursing services were ordered due to concerns with the incision site. These concerns have since resolved and the patient should begin physical therapy in order to better ensure a full and speedy recovery. Additionally, patient was initially randomized to warfarin for the Pepper trial. While in the hospital, patient had withdrawn themselves from the study and was discharged on 81 mg aspirin twice dailyfor anticoagulation therapy. We have discontinued the INR draw orders. Their concerns with taking naproxen postoperatively with regards to bleeding concerns. The physicaltherapist has not met with the patient yet. I advised that if the patient is having bleeding concerns and the pain is managed without the use of naproxen, then they may continue this. If the patient's not having any bleeding concerns and the pain is not well managed, we recommend the use of naproxen. Physical therapist states that care for an intrathecal pump was checked in a referral that they had received. After reviewing the patient's operative note and discharge paperwork, I do not see mention of any intrathecal pump. She will meet with the patient today and reach back to our office with any further questions or concerns or clarifications that may be needed. She appreciates the call back and all questions and concerns were answered at this time. * Telephone Encounter - Ronald Park - 09/17/2021 10:31 AM EDT Name of person calling: [facility] person is calling from?: [facility] What is the question: They are calling with a few questions if someone from the team could give them a call back. They had some questions about whether patient's PT is on hold or not, as well as if they should begin INRs on her and the status of her taking Naproxin. Please give a call back. Best number to reach the caller: [phone] ext [phone] documented in this encounter Plan of Treatment Upcoming Encounters Date Type Department Care Team (Latest Contact Info) Description 04/06/2024 11:30 AM EST Hospital Encounter Outpatient [place] [address] [facility] [place] [address] 04/06/2024 11:30 AM EST - 04/06/2024 12:50 PM EST Surgery [place]patient [place] [address] [facility] [place] [address] IMPLANT NEUROSTIMULATOR ELECTRODES, PERIPHERAL NERVE (WRVU 5.76) 04/14/2024 2:30 PM EST Office Visit [facility] [place] [address] [facility] [place] [address] Scheduled Procedures Name Priority Associated Diagnoses Date/Ti [...] on filedocumented in this encounter Care Teams Services Rep Relationship Specialty Start Date End Date Ja Ordaz MD [address] [place] [id number] PCP - General Emergency Medicine 03/11/21 documented as of this encounter
--- OUTSIDE RECORDS SUMMARY | 2024-04-05 16:25 | XMS_ITS | Encounter Summary ---
Author Organization [facility] [place] [address] Care Team Providers Care Senior Quantity Surveyor Name Role Phone Ja Ordaz MD Primary Care Provider [phone] Encounter Details Date Type Department Care Team (Late st Contact Info) Description 09/16/2021 Notes Only [place] [address] Lexie Sinclair Social History Tobacco Use Types Packs/Day Years [...] as of this encounter Progress Notes * Lexie Sinclair - 09/16/2021 9:31 AM EDT Study Title: Comparative Effectiveness of Pulmonary Embolism Prevention after hip and knee Replacement: Balancing Safety and Effectiveness. Principle Pressure Vessel Inspector: Dr. Sherrie Williamson #: [id number] Subject #: [id number] Received an email from Miesha Burkett APRN on 09/13/21 stating that subject wishes to withdraw as she did not want to be on Warfarin as randomized to. Note submitted by Lexie Sinclair, Research Manufacturing Recruiter. documented in this encounter Plan of Treatment Upcoming Encounters Date Type Department Care Team (Latest Contact Info) Description 04/06/2024 11:30 AM EST Hospital Encounter Outpatient [place] [address] Cadence Eric MD [facility] [place] [address] 04/06/2024 11:30 AM EST - 04/06/2024 12:50 PM EST Surgery Outpatient [place] [address] Cadence Eric MD [facility] [place] [address] IMPLANT NEUROSTIMULATOR ELECTRODES, PERIPHERAL NERVE (WRVU 5.76) 04/14/2024 2:30 PM EST Office Visit [facility] [place] [address] Cadence Eric MD [facility] [place] [address] Scheduled Procedures Name Priority Associated Diagnoses Date/Ti [...] filedocumented in this encounter Care Teams Senior Quantity Surveyor Relationship Specialty Start Date End Date Ja Ordaz MD [address] [place] [address] PCP - General Emergency Medicine 03/11/21 documented as of this encounter
--- OUTSIDE RECORDS SUMMARY | 2024-04-05 16:25 | XMS_ITS | Encounter Summary ---
Author Organization [facility] Address [facility] [place] [address] Care Team Providers Care Rv Mechanic Name Role Phone Ja Ordaz MD Primary Care Provider [phone] Encounter Details Date Type Department Care Team (Latest Contact Info) Description 10/16/2021 10:01 AM EDT - 10/16/2021 11:59 PM EDT Hospital Encounter XRay at [address] [place] [address] Wayne Sanchez MD [facility] [place] [address] Status post left knee replacement; Chronic pain [...] daily. 2 gummies daily=4MG NARCAN 4 mg/actuation [place], Non-Aerosol instill 1 spray in 1 NOSTRIL if needed for opioid overdose may re... (REFER TO PRESCRIPTION NOTES). 0 12/08/2018 multivitamin with minerals Tablet Take 1 tablet by mouth daily. morphine sulfate/D5W (MORPHINE IN D5W) 1 mg/mL Prefilled Pump Tuttle Inject as directed. Has intrathecal pump with continuous rate and Has 5 preset prn boluses pt may give herself oxyCODONE (Roxicodone) 15 mg Tablet Take 15 [...] daily as needed. 30 tablet 09/23/2021 09/04/2022 omeprazole (PriLOSEC) 20 mg Capsule, Delayed Release(E.C.) Take 1 capsule by mouth daily for 42 days. 42 capsule 09/14/2021 10/26/2021 acetaminophen (Tylenol) 500 mg Tablet Take 2 [...] AM EST Hospital Encounter [place]patient [place] [address] Cadence Eric MD [facility] [place] [address] 04/06/2024 11:30 AM EST - 04/06/2024 12:50 PM EST Surgery [place]patient [place] [phone] Cadence Eric MD [facility] [place] [address] IMPLANT NEUROSTIMULATOR ELECTRODES, PERIPHERAL NERVE (WRVU 5.76) 04/14/2024 2:30 PM EST Office Visit [facility] [place] [address] Cadence Eric MD [facility] [place] [address] Scheduled Procedures Name Priority Associated Diagnoses Date/Ti [...] Priority Date/Time Associated Diagnosis Comments XR KNEE STANDING ALIGNMENT AP LAT [place] SKYLINE LEFT Routine 10/16/2021 10:57 AM EDT Status post left knee replacement Chronic pain of left knee Left leg pain documented in this encounter Results * XR Knee Standing Alignment AP Lat [place] Left (10/16/2021 10:57 AM EDT) Anatomical Region Laterality Modality Left Digital Radiogra phy Impressions 10/16/2021 11:42 AM EDT Status post medial right and left revision total knee arthroplasty without radiographic finding of complication or acute abnormality. Bilateral lower extremity varus alignment. Thank you for letting us participate in the care of this patient. ??If you are a health care provider and have any questions regarding this report, please contact the number below. ??For patients who have questions please contact the health healthcare market consultant that requested your imaging first. ? Electronically signed by: Ayaka Doran MD, [facility] ([phone]), at 10/16/2021 11:42 AM Narrative 10/16/2021 11:42 AM EDT EXAMINATION: XR KNEE STANDING ALIGNMENT AP LAT [place] SKYLINE LEFT CLINICAL HISTORY: History of knee replacement TECHNIQUE: Separate images of the pelvis, knees and feet were acquired in the AP projection with the patient standing. ??These images were stitched together to form a composite image of the pelvis and legs. Bilateral AP, skyline and left lateral knee radiographs are included. COMPARISON: Radiographs May 09, 2020 and September 10, 2021 FINDINGS: Survey: Baclofen pump projects over the right lower quadrant. Right sacroiliac joint fusion hardware is intact. No fracture. Preserved spacing and alignment at the hips, pubic symphysis and ankles. Right knee: Cemented total medial knee arthroplasty hardware is intact without adjacent lucency, periprosthetic fracture, change in position or joint malalignment. Mild lateral and patellofemoral compartment narrowing with small marginal osteophytes. Left knee: Cemented total knee arthroplasty revision hardware is intact without adjacent lucency, periprosthetic fracture, change in position or joint malalignment. No effusion or soft tissue abnormality. Alignment: Right mechanical axis passes through the medial joint line. Left mechanical axis passes through the center of medial compartment. Procedure Note Ayaka Doran MD - 10/16/2021 EXAMINATION: XR KNEE STANDING ALIGNMENT AP LAT [place] SKYLINE LEFT CLINICAL HISTORY: History of knee replacement TECHNIQUE: Separate images of the pelvis, knees and feet were acquired inthe AP projection with the patient standing. These images were stitched togetherto form a composite image of the pelvis and legs. Bilateral AP, skyline andleft lateral knee radiographs are included. COMPARISON: Radiographs May 09, 2020 and September 10, 2021 FINDINGS: Survey: Baclofen pump projects over the right lower quadrant. Rightsacroiliac joint fusion hardware is intact. No fracture. Preserved spacing andalignment at the hips, pubic symphysis and ankles. Right knee: Cemented total medial knee arthroplasty hardware is intactwithout adjacent lucency, periprosthetic fracture, change in position or joint malalignment. Mild lateral and patellofemoral compartment narrowing withsmall marginal osteophytes. Left knee: Cemented total knee arthroplasty revision hardware is intactwithout adjacent lucency, periprosthetic fracture, change in position or joint malalignment. No effusion or soft tissue abnormality. Alignment: Right mechanical axis passes through the medial joint line. Left mechanical axis passes through the center of medial compartment. IMPRESSION Status post medial right and left revision total knee arthroplastywithout radiographic finding of complication or acute abnormality. Bilaterallower extremity varus alignment. Thank you for letting us participate in the care of this patient. If youare a health care provider and have any questions regarding this report,please contact the number below. For patients who have questions please contactthe health healthcare market consultant that requested your imaging first. Electronically signed by: Ayaka Doran MD, [facility]([phone]), at 10/16/2021 11:42 AM Wayne Sanchez MD IMG DX ORDERABLES documented in this encounter Visit Diagnoses Diagnosis Status post left knee replacement Chronic pain of left knee Pain in joint, lower leg Left leg pain Pain in limb Saphenous neuralgia, right documented in this encounter Care Teams Rv Mechanic Relationship Specialty Start Date End Date Ja Ordaz MD [address] [place] [id number] PCP - General Emergency Medicine 03/11/21 documented as of this encounter
--- OUTSIDE RECORDS SUMMARY | 2024-04-05 16:25 | XMS_ITS | Encounter Summary ---
[place] [address] Care Team Providers Care Mobile Application Development Lead Name Role Phone Ja Ordaz MD Primary Care Provider [phone] Reason for Visit * Reason Onset Date Comments Medication Refill 09/26/2021 Encounter Details Date Type Department Care Team (Late st Contact Info) Description 09/26/2021 [place] [address] Melanie Ngo, RN S/P TKR (total knee replacement), left Social [...] Telephone Encounter - Melanie Ngo RN - 09/26/2021 8:53 AM EDT Medication Refill Request Surgery/Injury/Provider: Left TKA melgar 09/10/21 Medication being requested: hydromorphone Query: Last refill or Original Rx: 09/23/21 Seen within 30 days (if no, than when): Follow Up: 10/16/21 How is this medication being used currently: patient taking 2 tablets every 6 hours Pain level: 10 /10 Bowel concerns: none Other pain medications used and how: Tylenol Yes 2 every 8 hours Gabapentin Yes 300mg tid Naproxen No stopped due to bleeding OTHER zanaflex Medication Taper Plan: Taper to the lowest effective maintenance dose, Continue additional scheduled pain medication along with RICE. Teaching done regarding: taking nonnarcotic pain medications, taking the least amount of opioid needed for the least amount of time for adequate pain management and tapering of opioids with verbalized understanding by the patient. Requested Prescription to be sent electronically to [facility] (location). Prescription prepped and pended for Izzy ALVARADO (provider) review. The patient knows how to contact orthopaedics if any further questions or concerns occur. Melanie Ngo RN [facility] Ortho Team documented in this encounter Plan of Treatment Upcoming Encounters Date Type Department Care Team (Latest Contact Info) Description 04/06/2024 11:30 AM EST Hospital Encounter [place] [address] Cadence Eric MD [facility] [place] [address] 04/06/2024 11:30 AM EST - 04/06/2024 12:50 PM EST Surgery [place] [address] Cadence Eric MD [facility] [place] [address] IMPLANT NEUROSTIMULATOR ELECTRODES, PERIPHERAL NERVE (WRVU 5.76) 04/14/2024 2:30 PM EST Office Visit [place] [address] Cadence Eric MD [facility] [place] [address] Scheduled Procedures Name Priority Associated Diagnoses Date/Ti [...] right documented in this encounter Care Teams Mobile Application Development Lead Relationship Specialty Start Date End Date Ja Ordaz MD [address] [place] [address] PCP - General Emergency Medicine 03/11/21 documented as of this encounter
--- OUTSIDE RECORDS SUMMARY | 2024-04-05 16:25 | XMS_ITS | Encounter Summary ---
Author Organization [facility] Address [facility] [place] [address] Care Team Providers Care Oyster Harvester Name Role Phone Ja rOdaz MD Primary Care Provider [phone] Encounter Details Date Type Department Care Team (Late st Contact Info) Description 09/17/2021 Notes [place] [address] Rosa Maria, JENNY Sanchez [facility] [place] [address] Social History Tobacco Use Types Packs/Day Years [...] as of this encounter Progress Notes * Antonia William RN - 09/17/2021 10:20 AM EDT PA for dilaudid submitted through cover my meds - pending approval documented in this encounter Plan of Treatment Upcoming Encounters Date Type Department Care Team (Latest Contact Info) Description 04/06/2024 11:30 AM [facility] Hospital Encounter Outpatient Surgery [place] [address] Cadence Eric MD [facility] [place] [address] 04/06/2024 11:30 AM EST - 04/06/2024 12:50 PM EST Surgery [place]patient [place] [address] Cadence Eric MD [facility] [place] [address] IMPLANT NEUROSTIMULATOR ELECTRODES, PERIPHERAL NERVE (WRVU 5.76) 04/14/2024 2:30 PM EST Office Visit [facility] [place] [address] Cadence Eric MD [facility] [place] [address] Scheduled Procedures Name Priority Associated Diagnoses Date/Ti [...] on filedocumented in this encounter Care Teams Oyster Harvester Relationship Specialty Start Date End Date Ja Ordaz MD [address] [place] [address] PCP - General Emergency Medicine 03/11/21 documented as of this encounter
--- OUTSIDE RECORDS SUMMARY | 2024-04-05 16:25 | XMS_ITS | Encounter Summary ---
[place] [address] Care Team Providers Care Agriscience Instructor Name Role Phone Ja Ordaz MD Primary Care Provider [phone] Reason for Visit * Reason Onset Date Comments Medication Refill 09/19/2021 Encounter Details Date Type Department Care Team (Late st Contact Info) Description 09/19/2021 Ref[place] [address] Melanie Ngo, RN S/P TKR (total knee [...] Telephone Encounter - Melanie Ngo RN - 09/19/2021 3:36 PM EDT Medication Refill Request Surgery/Injury/Provider: Left TKA Dr. Sanchez 09/10/21 Medication being requested hydromorphone Query: Last refill or Original Rx: 09/17/21 Seen within 30 days (if no, than when): Follow Up: 10/16/21 How is this medication being used currently Pain level: 10 /10 at the 6 hour kiet Takes zanaflex ever 8 hours. Bowel concerns: ok Other pain medications used and how: Tylenol Yes 2 q 8 hours Gabapentin Yes 300 tid Naproxen stopped due to bleeding OTHER zanaflex Medication Taper Plan: Taper to the lowest effective maintenance dose, . Continue additional scheduled pain medication along with RICE. Teaching done regarding: taking nonnarcotic pain medications, taking the least amount of opioid needed for the least amount of time for adequate pain management and tapering of opioids with verbalized understanding by the patient. Requested Prescription to be sent electronically to [facility] Prescription prepped and pended for Izzy ALVARADO(provider) review. The patient knows how to contact orthopaedics if any further questions or concerns occur. Melanie Ngo RN [facility] Ortho Team documented in this encounter Plan of Treatment Upcoming Encounters Date Type Department Care Team (Latest Contact Info) Description 04/06/2024 11:30 AM EST Hospital Encounter [place] [address] Cadence Eric MD [facility] [place] [address] 04/06/2024 11:30 AM EST - 04/06/2024 12:50 PM EST Surgery [place] [address] Cadence Eric MD [facility] [place] [address] IMPLANT NEUROSTIMULATOR ELECTRODES, PERIPHERAL NERVE (WRVU 5.76) 04/14/2024 2:30 PM EST Office Visit [place] [address] Cadence Eric MD [facility] [place] [address] Scheduled Procedures Name Priority Associated Diagnoses Date/Ti [...] right documented in this encounter Care Teams Agriscience Instructor Relationship Specialty Start Date End Date Ja Ordaz MD [address] [place] [address] PCP - General Emergency Medicine 03/11/21 documented as of this encounter
--- OUTSIDE RECORDS SUMMARY | 2024-04-05 16:25 | XMS_ITS | Encounter Summary ---
[place] [address] Care Team Providers Care Wastewater Superintendent Name Role Phone Ja Ordaz MD Primary Care Provider [phone] Reason for Visit * Reason Onset Date Comments Medication Refill 09/16/2021 Encounter Details Date Type Department Care Team (Late st Contact Info) Description 09/16/2021 Ref[place] [address] Kathy Andrade CCMA S/P TKR (total knee replacement), left (Primary Dx) Social History Tobacco Use Types [...] encounter Miscellaneous Notes * Telephone Encounter - Kathy Andrade CCMA - 09/16/2021 2:45 PM EDT Images from the original note were not included. Medication Refill Request Surgery/Injury/Provider: 09/10/21 Left TKA Revision (Sanchez) Medication being requested:Hydromorphone 4mg Query: Last refill or Original Rx: Seen within 30 days (if no, than when): Follow Up: 10/16/21 How is this medication being used currently: 8mg q4hrs Pain level: 5-10/10 Patient stated that she is having headaches. I let her know that the headache may be due being dehydrated, or medications related to the surgery, but her PCP would be able to best assess her concern,and that she could call her primary care office. Bowel concerns: no concerns Other pain medications used and how: Tylenol Yes Gabapentin Yes Naproxen Yes OTHER n/a Medication Taper Plan: Taper to the lowest effective maintenance dose, 1-2 tablets q6hrs. Patient will be starting a new chronic opioid contract after ortho has ended post op pain management. I let the patient know orthopaedics would provide refills for 1 month, unless other arrangements are made for her primary to take over refills sooner. Continue additional scheduled pain medication along with RICE. Teaching done regarding: taking nonnarcotic pain medications, taking the least amount of opioid needed for the least amount of time for adequate pain management and tapering of opioids with verbalized understanding by the patient. Requested Prescription to be sent electronically to [facility] (location). Prescription prepped and pended for [place] (provider) review. The patient knows how to contact orthopaedics if any further questions or concerns occur. documented in this encounter Plan of Treatment Upcoming Encounters Date Type Department Care Team (Latest Contact Info) Description 04/06/2024 11:30 AM [facility] Hospital Encounter [place] [address] Cadence Eric MD [facility] [place] [address] 04/06/2024 11:30 AM EST - 04/06/2024 12:50 PM EST Surgery [place] [address] Cadence Eric MD [facility] PAIN [place] [address] IMPLANT NEUROSTIMULATOR ELECTRODES, PERIPHERAL NERVE (WRVU 5.76) 04/14/2024 2:30 PM EST Office Visit [place] [address] Cadence Eric MD [facility] PAIN [place] [address] Scheduled Procedures Name Priority Associated Diagnoses Date/Ti [...] Diagnoses Diagnosis S/P TKR (total knee replacement), left- Primary Saphenous neuralgia, right documented in this encounter Care Teams Wastewater Superintendent Relationship Specialty Start Date End Date Ja Ordaz MD [address] [place] [id number] PCP - General Emergency Medicine 03/11/21 documented as of this encounter
--- OUTSIDE RECORDS SUMMARY | 2024-04-05 16:25 | XMS_ITS | Encounter Summary ---
Author Organization [facility] [place] [address] Care Team Providers Care Electrical Engineering Manager Name Role Phone Ja Ordaz MD Primary Care Provider [phone] Encounter Details Date Type Department Care Team (Late st Contact Info) Description 09/20/2021 Telephone [place] [address] Sarah Barahona, RN Social History Tobacco Use Types Packs/Day [...] encounter Miscellaneous Notes * Telephone Encounter - Sarah Barahona RN - 09/20/2021 1:05 PM EDT Received a hot call today as the patient's complaints for continued bleeding has persisted. They have been unable to stop the bleeding despite trying steri- strips, mepilex dressings, rest, ice, and elevation. At this time, she was instructed to report to her local ED for further evaluation and definitive care. Patient verbalizes understanding of these instructions and has no further questions. documented in this encounter Plan of Treatment Upcoming Encounters Date Type Department Care Team (Latest Contact Info) Description 04/06/2024 11:30 AM EST Hospital Encounter Outpatient [place] [address] Cadence Eric MD [facility] [place] [address] 04/06/2024 11:30 AM EST - 04/06/2024 12:50 PM EST Surgery Outpatient [place] [address] Cadence Eric MD [facility] [place] [address] IMPLANT NEUROSTIMULATOR ELECTRODES, PERIPHERAL NERVE (WRVU 5.76) 04/14/2024 2:30 PM EST Office Visit [place] [address] Cadence Eric MD [facility] [place] [address] Scheduled Procedures Name Priority Associated Diagnoses Date/Ti [...] on filedocumented in this encounter Care Teams Electrical Engineering Manager Relationship Specialty Start Date End Date Ja Ordaz MD [address] [place] [address] PCP - General Emergency Medicine 03/11/21 documented as of this encounter
--- OUTSIDE RECORDS SUMMARY | 2024-04-05 16:25 | XMS_ITS | Encounter Summary ---
Author Organization [facility] Address [facility] [place] [address] Care Team Providers Care Advisory Software Engineer Name Role Phone Ja Ordaz MD Primary Care Provider [phone] Encounter Details Date Type Department Care Team (Latest Contact Info) Description 11/06/2021 11:30 AM EDT Procedure visit [place] [address] Karl Becker MD [facility] [place] [address] Postlaminectomy syndrome of lumbar region Social History [...] as of this encounter Progress Notes * Etelvina Bishop RN - 11/06/2021 11:30 AM EDT [facility] Nursing Note Etelvina presents today for IT pump refill/reprogramming visit with Dr Becker. Patient states no discomfort at pump site, no pump alarms since last visit, no pump concerns. Patient states since last visit pain has been 2 , using 2 PTM 2 times a day with benefit. Patient reports pain. Medications reviewed and updated. ROS: pt denies fevers, chills,SOB, difficulty breathing, open wounds or rashes Etelvina Bishop, RN * Karl Becker MD - 11/06/2021 11:30 AM EDT Surgeon: Surgeon(s) and Role: ?* Karl Becker MD - Primary ? Present on Admission: ?Presence of intrathecal pump ?? Postoperative diagnosis:??same ?? Procedure(s) (LRB): ELECTRONIC HERNANDEZ PROG., PUMP- DRUG INFUS; W/ REPROGRAM & REFILL MILAGRO DAWSON (WRVU 0.9) (N/A) ? Primary Stockbroking Dealer: Karl Becker MD ? Reason for Reprogramming:??Interrogation to confirm no pump log errors and to refill pump ?? Diagnosis: Post-laminectomy syndrome ?? Functional improvement with the pump: Able to complete ADL's with less pain. She is s/p revision left knee replacement September 2021 ?? Side effects from pump: ??Minor pain at pump site at scar location ?? Changes since last refill: Will keep PTM lockout the same at 3hr with same 5 total doses. ?? Prescription Drug Monitoring Program (PDMP) data: Negative for inconsistencies. ?? Medication contract signed? Yes ?? Physical Examination: ?? Constitutional: Her vital signs were normal and reviewed with the patient. ??She is in no acute distress. Respiratory: There is no respiratory distress Cardiovascular: ??Normal heart rate Skin??(over the pump): ??The skin was grossly normal to the area of pain Eyes: EOMI, no scleral icterus Psychological: Normal Abdominal: RLQ scar overlying pump. ?? Pre-Refill??Telemetry Programming Reading: Drugs/Concentrations: Morphine 10mg/mL - Preservative Free ??- ?? Daily Dose: 2mg with mPTM 0.2mg q3hr PRN 5/day Brand/Compound: Compound. ?? Post-Refill??Telemetry Programming Reading: Drugs/Concentrations: Morphine 10mg/mL - Preservative Free ??- ?? Daily Dose: 2mg with mPTM 0.2mg q3hr PRN 5/day Brand/Compound: Compound. ? Pump Capacity: ??40 mL ?? Computer predicted residual volume in pump:??7.2??mL ?? Actual [place] volume:??9mL ?? Medication or Dose Changes: None ?? Is dose change >30%? No ?? Is concentration of drug different? ??No ?? Empty syringe concentration verified by photo checker and assembler: yes ?? If concentration of drug is different, has a bridge bolus been programmed? n/a. ?? Has any program been used other than simple continuous or bridge bolus and simple continuous? no ?? Infusion Mode: simple continuous. ?? New ??Alarm Date:03/13/22 Patient continues on oxycodone 15 mg 5 times a day postoperatively. She is using her intrathecal boluses 1-3 times a day on average. She can do it 5 times a day. She is not utilizing her as needed ibuprofen on a regular basis nor her acetaminophen that was prescribed by her orthopedic surgeon. I suggested that she start using her PTM to replace 1-2 oral doses of oxycodone and to utilize the acetaminophen and ibuprofen maximally. ?? PROCEDURE: Risks and expected side effects were reviewed with patient and??her??voiced concerns addressed. ??The printed consent form was signed and witnessed. ??The following information was verified: ? Patient Name on RX: yes ?? Drug Name on RX:yes ?? Drug concentration on syringe containing pump refill medication: yes ? The pump was accessed via telemetry and the computer predicted residual volume was noted as per above. Then Chlorhexidine??prep over the pump refill site was performed. ??Sterile drapes were applied as provided with the ??Kwarter refill kit. A 22 gauge Moraes non-coring needle supplied with the refill kit was inserted through the refill-template into the central refill port of the pump. ??The pump was aspirated for the above measured residual volume. ??This residual volume was discarded. Freshly prepared solution of the drug(s) and concentration(s) as noted above was used to refill the pump 5 ml of solution was instilled and easily withdrawn, no more and no less than 5 ml. A total of 40 ml of solution was instilled into the pump according to the acting manager's directions without difficulty. There was no evidence of over pressurization at the conclusion of the filling process. ??The Moraes needle was withdrawn and a Band-Aid was applied. The pump was then re-accessed via telemetry and r eprogrammed to indicate the refill volume of 40 ml. The unused portion of the medication was discarded along with the old drug aspirated. ?? Battery alarms reviewed and were appropriately enabled and in working order. documented in this encounter Plan of Treatment Upcoming Encounters Date Type Department Care Team (Latest Contact Info) Description 04/06/2024 11:30 AM EST Hospital Encounter Outpatient [place] [address] Cadence Eric MD [facility] [place] [address] 04/06/2024 11:30 AM EST - 04/06/2024 12:50 PM EST Surgery Outpatient [place] [address] Cadence Eric MD [facility] [place] [address] IMPLANT NEUROSTIMULATOR ELECTRODES, PERIPHERAL NERVE (WRVU 5.76) 04/14/2024 2:30 PM EST Office Visit [place] [address] Cadence Eric MD [facility] [place] [address] Scheduled Procedures Name Priority Associated Diagnoses Date/Ti [...] right documented in this encounter Care Teams Advisory Software Engineer Relationship Specialty Start Date End Date Ja Ordaz MD [address] [place] [address] PCP - General Emergency Medicine 03/11/21 documented as of this encounter
--- OUTSIDE RECORDS SUMMARY | 2024-04-05 16:25 | XMS_ITS | Encounter Summary ---
Author Organization [facility] Address [facility] [place] [address] Care Team Providers Care Grease Maker Name Role Phone Ja Ordaz MD Primary Care Provider [phone] Reason for Referral * Physical Therapy (Routine) - Closed Specialty Diagnoses / Procedures Referred By Cindy wooten Referred To Contact Physical Therapy Diagnoses Status post revision of total knee, left Rosa Maria, JENNY Sanchez [facility] [address] [facility] [address] [place] [address] Referral ID Status Reason Start Date Expiration Date V isits Requested Visits Authorized [id number] Closed Evaluate and Treat 10/16/2021 04/14/2022 12 12 Reason for Visit * Reason Comments Post Op CASE REQ 10/22/21 LEF T TKA Encounter Details Date Type Department Care Team (Late st Contact Info) Description 10/16/2021 11:10 AM EDT [place] [address] Clinic, Dr Sanchez Team None Status post revision of total knee, left (Primary Dx) Social History Tobacco Use [...] Sign Reading Time Taken Comments Blood Pressure 109/62 10/16/2021 11:14 AM EDT Pulse 57 10/16/2021 11:14 AM EDT Temperature - - Respiratory Rate - - Oxygen Saturation - - Inhaled Oxygen Concentration - - Weight 108.4 kg (239 lb) 10/16/2021 11:14 AM EDT Height 152.4 cm (5') 10/16/2021 11:14 AM EDT Body Mass Index 46.68 10/16/2021 11:14 AM EDT documented in this encounter Progress Notes * Rosa Maria, JENNY Sanchez - 10/16/2021 11:10 AM EDT Images from the original note were not included. Department of Orthopaedics Division of Adult Joint Reconstructive Surgery CHIEF COMPLAINT: Chief Complaint Patient presents with ??? Post Op CASE REQ 10/22/21 LEFT TKA ARTHROPLASTY HISTORY/PREVIOUS KNEE SURGERY: 1. Right medial unicompartmental knee replacement (likely cemented mobile beraing [place]) Replaced By [facility] 2011 2. Left TKA 03/29/2020 (Dr. Jacobson) 3. L TKA Revision (aseptic loosening), 09/10/21, Daniel Main was referred from Ja Ordaz MD [address] [place] [id number] I.D.: Etelvina Cuadra is a 60 y.o. year old female being seen today 5 weeks s/p L TKA revision for aseptic loosening. She is doing alright. She has not begun outpatient PT. Using walker, cane or wheelchair asneeded. Weaning to baseline narcotics. Notes improvement from preoperative status. QUESTIONNAIRE RESPONSES: General Health, Prior Treatments, PreExisting Condition, Health Habits, About You 07/10/2021 PROMIS-10 General Health Good PROMIS-10 Quality of Life Fair PROMIS-10 Physical Health Fair PROMIS-10 Mental Health Excellent PROMIS-10 Social Activity Excellent PROMIS-10 Everyday Activities A little PROMIS-10 Pain 10 - Worst Imaginable Pain PROMIS-10 Fatigue Mild PROMIS-10 Social Roles Fair PROMIS-10 Anxious or Depressed Rarely PROMIS PHYSICAL SCORE (range 16-68) 32.4 PROMIS MENTAL SCORE (range 21-68) 53.3 Treatments Tried Heat and ice therapy, Brace, Walking aids (e.g.cane, walker), Medicines applied onthe skin (topical), Acetaminophen (e.g. Tylenol), Prior surgery for this problem KOOS JR Scores - TKA Grade - Alzheimers or dementia - Cirrohosis or liver disease - HIV/AIDS - Pain in more than one joint in legs - Back or neck pain - Heart attack - Heart failure - Unclog/bypass leg arteries - Stroke, blood clot, TIA - Asthma - Emphysema, chronic bronchities, or COPD - Stomach ulcers/peptic ulcer disease - Condition diagnosed by endoscopy - Diabetes - Poor kidney function - Rheumatic condtions - Cancer - Weight (lbs) - Height (feet) - Height (Inches) - BMI - Ever used tobacco products - Tobacco frequency - WHO - Tobacco Advice - Ever used alcoholic beverages - Alcohol frequency - WHO - Alcohol Advice - Live Alone - Marital situation - Schooling - Combined Household Income - # People Supported - Armenian, , - Race - Health Literacy - Currently working - Not working because: - [facility] Response 06/05/2021 KOOS JR Scores 15.94 Spine [facility] Response 06/05/2021 KOOS JR Scores 15.94 ALLERGIES Allergies Allergen Reactions ??? Peanut Anaphylaxis ??? [...] Tetracyclines Itching ??? Wool Itching and Rash SOCIAL HISTORY: reports that she quit smoking about 30 years ago. Her smoking use included cigarettes. She smoked 0.25 packs per day. She has never used smokeless tobacco. She reports that she does not drink alcohol and does not use drugs. SIGNIFICANT MEDICAL COMORBIDITIES: Patient Active Problem List Diagnosis Code ??? Postlaminectomy syndrome of lumbar region M96.1 ??? Acquired hypothyroidism E03.9 ??? Cervicalgia M54.2 ??? Chronic pain disorder G89.4 ??? Chronic bilateral low back pain with bilateral sciatica M54.42, M54.41, G89.29 ??? Chronic prescription opiate use Z79.891 ??? Primary osteoarthritis of left knee M17.12 ??? Morbid obesity with BMI of 45.0-49.9, adult E66.01, Z68.42 ??? Presence of intrathecal pump Z97.8 ??? Anxiety and depression F41.9, F32.A ??? HLD (hyperlipidemia) E78.5 ??? Morbid obesity E66.01 ??? Osteoarthritis of left knee M17.12 ??? s/p Left Total Knee Arthroplasty - 03/29/2020 Dr. Jacobson M17.12 ??? Allergic rhinitis J30.9 ??? Pain in joint, lower leg M25.569 ??? S/P TKR (total knee replacement), left Z96.652 VITALS: BP Readings from Last 1 Encounters: 10/16/21 109/62 Pulse Readings from Last 1 Encounters: 10/16/21 57 Height: 152.4 cm (5') Weight: 108.4 kg (239 lb) Body mass index is 46.68 kg/m??. PHYSICAL EXAM: Constitution: Etelvina sits in the clinic today alert, appears stated age and cooperative. The patient is alert and oriented. I have made the following determinations: Knee Exam: Left Prior surgery on this joint: Yes Knee ROM: Extension:5 Flexion: 95 Alignment: 0-4 degrees neutral Stability: <5mm with AP, varus and valgus stress. Extension La degrees or less Patella Tracking: Normal Skin Integrity: Normal at anterior knee with incision well-healed. No erythema or edema. Throughout the lower extremity there is some evidence of stasis especially at the distal leg. Pulses Palpable: Left PT:Yes Left DP:Yes Motor/Sensory: Distal Motor:Normal Distal Sensory: Normal Quadriceps Strength:4+ IMAGING: X-rays of the bilateral knees demonstrates right unicompartmental arthroplasty in place. On the left side revision total knee arthroplasty in place without evidence of acute change in alignment or other complication. No fracture or dislocation noted. ASSESSMENT AND PLAN: Ms. Cuadra is a 60 y.o. year old female s/p revision TKA. Doing well overall. Emphasized PT and returning to activity. New rx provided for PT. Continue to progress activity. Wean to baseline narcotics. RTC 2 months no xray. JENNY Streeter documented in this encounter Plan of Treatment Upcoming Encounters Date Type Department Care Team (Latest Contact Info) Description 04/06/2024 11:30 AM EST Hospital Encounter [place] [address] Cadence Eric MD [facility] [place] [address] 04/06/2024 11:30 AM EST - 04/06/2024 12:50 PM EST Surgery [place] [address] Cadence Eric MD [facility] [place] [address] IMPLANT NEUROSTIMULATOR ELECTRODES, PERIPHERAL NERVE (WRVU 5.76) 04/14/2024 2:30 PM EST Office Visit [place] [address] Cadence Eric MD [facility] [place] [address] Scheduled Procedures Name Priority Associated Diagnoses Date/Ti [...] Referral Routine Status post revision of total knee, left Ordered: 10/16/2021 documented as of this encounter Visit Diagnoses Diagnosis Status post revision of total knee, left- Primary Saphenous neuralgia, right documented in this encounter Care Teams Grease Maker Relationship Specialty Start Date End Date Ja Ordaz MD [address] [place] [address] PCP - General Emergency Medicine 03/11/21 documented as of this encounter
--- OUTSIDE RECORDS SUMMARY | 2024-04-05 16:25 | XMS_ITS | Encounter Summary ---
Author Organization [facility] Address [facility] [place] [address] Care Team Providers Care Surveying Or Spatial Science Technician Name Role Phone Ja rOdaz MD Primary Care Provider [phone] Encounter Details Date Type Department Care Team (Late st Contact Info) Description 09/24/2021 Telephone [place] [id number] Rosa Maria, JENNY Sanchez [facility] [place] [address] Social History Tobacco Use Types Packs/Day Years [...] * Telephone Encounter - Magi Telles - 09/24/2021 3:34 PM EDT After reviewing call with Laura Rolon, I called Etelvina back. Laura reviewed the images that were sent in to the [facility] email, Izzy stated that the incision looks fine. Laura requested that Etelvina is aware that we can fill the script request but she does need to establish an Opiod plan with her PCP. Etelvina stated she has an appointment with her PCP on 09/30/21 at 4:40 PM. Etelvina was very thankful for the call, she stated she did still have a lot of swelling but has been elevating and icing. Etelvina also stated that since she has started the keflex her redness has reduced significantly. Etelvina understood the information discussed above and knows to send images through [facility] for future communications and also to contact if she has any questions moving forward. * Telephone Encounter - Dora Lindsay - 09/24/2021 2:15 PM EDT Name of person calling: Etelvina Was this a new injury? no Have you had Surgery?yes If so when? 09/10/21 Who was the Surgeon?Sanchez What is the question: Patient is calling back stating that she sent e-mails to the team with photosof her knee and wanted to know what the next step is. She is worried that she has called the last several days and is not getting a response. Etelvina would like to know if she needs to come in to get fluid drained or what the next step is. Best number to reach the caller: [phone] documented in this encounter Plan of Treatment Upcoming Encounters Date Type Department Care Team (Latest Contact Info) Description 04/06/2024 11:30 AM EST Hospital Encounter Outpatient [place] [address] Cadence Eric MD [facility] [place] [address] 04/06/2024 11:30 AM EST - 04/06/2024 12:50 PM EST Surgery Outpatient [place] [address] Cadence Eric MD [facility] [place] [address] IMPLANT NEUROSTIMULATOR ELECTRODES, PERIPHERAL NERVE (WRVU 5.76) 04/14/2024 2:30 PM EST Office Visit [facility] [place] [address] Cadence Eric MD [facility] [place] [address] Scheduled Procedures Name Priority Associated Diagnoses Date/Ti [...] on filedocumented in this encounter Care Teams Surveying Or Spatial Science Technician Relationship Specialty Start Date End Date Ja Ordaz MD [address] [place] [address] PCP - General Emergency Medicine 03/11/21 documented as of this encounter
--- OUTSIDE RECORDS SUMMARY | 2024-04-05 16:25 | XMS_ITS | Encounter Summary ---
Author Organization [facility] Address [facility] [place] [address] Care Team Providers Care Modeling Manager Name Role Phone Ja Ordaz MD Primary Care Provider [phone] Reason for Visit * Reason Onset Date Comments Physical Therapy 09/23/2021 Encounter Details Date Type Department Care Team (Late st Contact Info) Description 09/23/2021 [place] [address] Wayne Sanchez MD [facility] [place] [address] Physical Therapy Social History Tobacco Use Types Packs/Day Years [...] Telephone Encounter - Lindsay Villafuerte - 09/23/2021 9:08 AM EDT Name of person calling: [place] Facility person is calling from?: [facility] Have you had Surgery?Yes If so when?09/10/21 Who was the Surgeon?Dr. Sanchez What is the question: States patient has declined Physical therapy since she was discharged due to bleeding of the knee. Please advise. Best number to reach the caller: [phone] documented in this encounter Plan of Treatment Upcoming Encounters Date Type Department Care Team (Latest Contact Info) Description 04/06/2024 11:30 AM EST Hospital Encounter [place]patient [place] [address] Cadence Eric MD [facility] [place] [address] 04/06/2024 11:30 AM EST - 04/06/2024 12:50 PM EST Surgery [place]patient [place] [address] Cadence Eric MD [facility] [place] [address] IMPLANT NEUROSTIMULATOR ELECTRODES, PERIPHERAL NERVE (WRVU 5.76) 04/14/2024 2:30 PM EST Office Visit [place] [phone] Cadence Eric MD [facility] [place] [address] Scheduled Procedures Name Priority Associated Diagnoses Date/Ti [...] on filedocumented in this encounter Care Teams Modeling Manager Relationship Specialty Start Date End Date Ja Ordaz MD [address] [place] [address] PCP - General Emergency Medicine 03/11/21 documented as of this encounter
--- OUTSIDE RECORDS SUMMARY | 2024-04-05 16:26 | XMS_ITS | Encounter Summary ---
Author Organization Count Includes [facility] Address [facility] [address] Care Team Providers Care Sales Manager [place] Name Role Phone Ja Ordaz MD Primary Care Provider [phone] Reason for Referral * Diagnostic Test (Routine) - Closed Specialty Diagnoses / Procedures Referred By Contac t Referred To Contact Radiology Diagnoses Primary osteoarthritis of left knee Procedures NM Bone Scan 3 Phase Leanna Yañez MD [facility] [place] [address] [place] [address] Referral ID Status Reason Start Date Expiration Date V isits Requested Visits Authorized [id number] Closed Specialty Service Requested 06/27/2021 05/10/2022 1 1 Reason for Visit * Diagnostic Test (Routine) - Closed Specialty Diagnoses / Procedures Referred By Contac t Referred To Contact Radiology Diagnoses Primary osteoarthritis of left knee Procedures NM Bone Scan 3 Phase Leanna Yañez MD [facility] [place] [address] [place] [address] Referral ID Status Reason Start Date Expiration Date V isits Requested Visits Authorized [id number] Closed Specialty Service Requested 06/27/2021 05/10/2022 1 1 Encounter Details Date Type Department Care Team (Latest Contact Info) Description 07/09/2021 8:47 AM EST - 07/09/2021 11:10 AM EST Hospital Encounter [place] [address] Wayne Sanchez MD [facility] [place] [address] Primary osteoarthritis of left knee Discharge Disposition: Home Social [...] Sig Dispensed Refills Start Date End Date levothyroxine (Synthroid) 100 mcg Tablet Take 1 [...] daily. 2 gummies daily=4MG NARCAN 4 mg/actuation Burgin, Non-Aerosol instill 1 spray in 1 NOSTRIL if needed for opioid overdose may re... (REFER TO PRESCRIPTION NOTES). 0 12/08/2018 multivitamin with minerals Tablet Take 1 tablet by mouth daily. morphine sulfate/D5W (MORPHINE IN D5W) 1 mg/mL Prefilled Pump Juliette Inject as directed. Has intrathecal pump with continuous rate and Has 5 preset prn boluses pt may give herself oxyCODONE (ROXICODONE) 10 mg TabletIndications:Prima ry osteoarthritis of left knee Take 1 tablet by mouth 3 times daily as needed. 84 tablet 09/11/2020 09/14/2021 amoxicillin (AMOXIL) 500 mg TabletIndications:Prima ry osteoarthritis of left knee Take 4 tablets by mouth See Admin Instructions. Please take 2000mg of Amoxicillin 1 hour prior to Dental Procedure 20 tablet 09/03/2020 03/12/2022 citalopram (CeleXA) 40 mg Tablet Take 1 tablet by mouth daily. 90 tablet 1 07/26/2020 09/04/2021 furosemide (Lasix) 20 mg Tablet Take 1 tablet by mouth daily as needed. 30 tablet 2 07/04/2020 09/04/2022 polyethylene glycoL (Miralax) 17 gram/dose Powder Take by mouth as needed. 09/04/2021 baclofen (Lioresal) 10 mg Tablet Take 1 tablet by mouth 3 times daily. 90 tablet 05/09/2020 09/04/2021 senna-docusate (Pericolace) 8.6-50 mg Tablet Take 1 tablet by mouth daily. 04/01/2020 08/27/2022 acetaminophen (Tylenol) 500 mg Tablet Take 2 tablets by mouth every 8 hours. 04/01/2020 09/04/2021 albuteroL 90 mcg/actuation HFA Aerosol Inhaler Inhale 1-2 puffs into the lungs Every 4 hours. 12/06/2018 09/04/2021 morphine 100 % Powd 10 mg/mLIndications:Post laminectomy syndrome,Postlaminectom y syndrome by Intrathecal route continuous. 42 mL 12/01/2018 09/09/2021 EPINEPHrine 1 mg/mL Kit Inject as directed as needed. 09/04/2021 documented as of this encounter Plan of Treatment Upcoming Encounters Date Type Department Care Team (Latest Contact Info) Description 04/06/2024 11:30 AM [facility] Hospital Encounter Outpatient [place] [address] Cadence Eric MD [facility] [place] [address] 04/06/2024 11:30 AM EST - 04/06/2024 12:50 PM EST Surgery Outpatient [place] [address] Cadence Eric MD [facility] [place] [address] IMPLANT NEUROSTIMULATOR ELECTRODES, PERIPHERAL NERVE (WRVU 5.76) 04/14/2024 2:30 PM EST Office Visit [place] [phone] Cadence Eric MD [facility] [place] [address] Scheduled Procedures Name Priority Associated Diagnoses Date/Ti [...] Comments NM BONE SCAN 3 PHASE Routine 07/09/2021 12:11 PM EST Primary osteoarthritis of left knee documented in this encounter Results * NM Bone Scan 3 Phase (07/09/2021 12:11 PM EST) Anatomical Region Laterality Modality Nuclear Medicine Impressions 07/09/2021 3:08 PM EST 1. ??Moderate uniform tracer uptake around the left knee prosthesis is most suggestive of post-operative healing. 2. ??No evidence of prosthetic loosening or infection. Preliminary report signed by: Boone Duffy at 07/09/2021 2:37 PM I have personally reviewed the image(s) and the resident's interpretation and agree with the findings, Jesus Balbuena MD at 07/09/2021 3:08 PM Thank you for letting us participate in the care of this patient. ??If you are a health care provider and have any questions regarding this report, please contact the number below. ??For patients who have questions please contact the health daycare assistant that requested your imaging first. ? Narrative 07/09/2021 3:08 PM EST EXAMINATION: NM BONE SCAN 3 PHASE CLINICAL HISTORY: Knee replacement, loosening suspected left knee pain, eval for loosening or evidence of infection Left TKA 03/29/2020; right medial unicompartmental knee replacement (likely cemented) in 2011 TECHNIQUE: Immediately following the intravenous administration of 25 mCi of Tc-99m MDP, sequential images of perfusion to the bilateral knees were obtained at 2 second intervals for 60 seconds in the anterior and posterior projections. Five minutes later, blood pool images were obtained of the bilateral knees in the anterior, posterior and lateral projections. Three hours later, a bone scan of the bilateral knees was performed with images obtained in the anterior, posterior and lateral projections. COMPARISON: None FINDINGS: The blood flow is normal. There is mild uniform increased blood flow surrounding the left knee prosthesis. The bone scan displays moderate MDP tracer uptake diffusely surrounding the left knee prosthesis. Normal tracer uptake surrounding the right knee unicompartmental prosthesis. Procedure Note Jesus Balbuena MD - 07/09/2021 EXAMINATION: NM BONE SCAN 3 PHASE CLINICAL HISTORY: Knee replacement, loosening suspected left knee pain, eval for loosening or evidence of infection Left TKA 03/29/2020; right medial unicompartmental knee replacement(likely cemented) in 2011 TECHNIQUE: Immediately following the intravenous administration of 25 mCi of Tc-99mMDP, sequential images of perfusion to the bilateral knees were obtained at 2second intervals for 60 seconds in the anterior and posterior projections. Five minutes later, blood pool images were obtained of the bilateral kneesin the anterior, posterior and lateral projections. Three hours later, a bone scan of the bilateral knees was performed withimages obtained in the anterior, posterior and lateral projections. COMPARISON: None FINDINGS: The blood flow is normal. There is mild uniform increased blood flow surrounding the left kneeprosthesis. The bone scan displays moderate MDP tracer uptake diffusely surroundingthe left knee prosthesis. Normal tracer uptake surrounding the right knee unicompartmentalprosthesis. IMPRESSION 1. Moderate uniform tracer uptake around the left knee prosthesis ismost suggestive of post-operative healing. 2. No evidence of prosthetic loosening or infection. Preliminary report signed by: Boone Duffy at 07/09/2021 2:37 PM I have personally reviewed the image(s) and the resident's interpretationand agree with the findings, Jesus Balbuena MD at 07/09/2021 3:08 PM Thank you for letting us participate in the care of this patient. If youare a health care provider and have any questions regarding this report,please contact the number below. For patients who have questions please contactthe health daycare assistant that requested your imaging first. Wayne Sanchez MD IM NM ORDERABLES documented in this encounter Visit Diagnoses Diagnosis Primary osteoarthritis of left knee Primary localized osteoarthrosis, lower leg Saphenous neuralgia, right documented in this encounter Administered Medications Inactive Administered Medications - up to 3 most recent administrations Medication Order MAR Action Action Date Dose Rate Site technetium (Tc-99m) methylene diphosphonate (MDP) injection 0-30 mCi 0-30 mCi, Intravenous, ONCE PRN, 1 dose, Starting on Thu07/09/21 at 0931, Until Thu07/09/21 at 0900, Per Protocol, Radiology Contrast, Routine Given 07/09/2021 9:00 AM EST 25 mCi Right Arm documented in this encounter Care Teams Sales Manager [place] Relationship Specialty Start Date End Date Ja Ordaz MD [address] [place] [id number] PCP - General Emergency Medicine 03/11/21 documented as of this encounter
--- OUTSIDE RECORDS SUMMARY | 2024-04-05 16:26 | XMS_ITS | Encounter Summary ---
Author Organization [facility] Address [facility] [place] [address] Care Team Providers Care Cuffing Machine Operator Name Role Phone Ja Ordaz MD Primary Care Provider [phone] Encounter Details Date Type Department Care Team (Late st Contact Info) Description 07/08/2021 External Results [facility] [place] [phone] Karl Becker MD [facility] [place] [address] Social History Tobacco Use Types Packs/Day Years [...] AM EST Hospital Encounter [place] [phone] Cadence Eric MD [facility] [place] [address] 04/06/2024 11:30 AM EST - 04/06/2024 12:50 PM EST Surgery [place] [place] [address] Cadence Eric MD [facility] [place] [address] IMPLANT NEUROSTIMULATOR ELECTRODES, PERIPHERAL NERVE (WRVU 5.76) 04/14/2024 2:30 PM EST Office Visit [facility] [place] [address] Cadence Eric MD [facility] [place] [address] Scheduled Procedures Name Priority Associated Diagnoses Date/Ti [...] Associated Diagnosis Comments INTRATHECAL PUMP REFILL Routine 07/03/2021 documented in this encounter Results * INTRATHECAL PUMP REFILL (07/03/2021) Karl Becker MD PROCEDURE/MINOR SURG ICAL ORDERABLES documented in this encounter Visit Diagnoses Not on filedocumented in this encounter Care Teams Cuffing Machine Operator Relationship Specialty Start Date End Date Ja Ordaz MD [address] [place] [address] PCP - General Emergency Medicine 03/11/21 documented as of this encounter
--- OUTSIDE RECORDS SUMMARY | 2024-04-05 16:26 | XMS_ITS | Encounter Summary ---
Author Organization [facility] Address [facility] [place] [address] Care Team Providers Care Application Integrator Name Role Phone Ja Ordaz MD Primary Care Provider [phone] Encounter Details Date Type Department Care Team (Late st Contact Info) Description 07/29/2021 Telephone [place] [address] Wayne Sanchez MD [facility] [place] [address] Social History Tobacco Use Types Packs/Day Years [...] encounter Miscellaneous Notes * Telephone Encounter - Shira Collins - 07/29/2021 9:14 AM EDT I left a detailed message on the patients voice mail about holding off on scheduling surgery for the time being due to staffing issues. I let them know once we are ready to schedule we will be back in touch. If patient feels like they need to reach out to us they could call our direct line. Our numbers were left for the patient. documented in this encounter Plan of Treatment Upcoming Encounters Date Type Department Care Team (Latest Contact Info) Description 04/06/2024 11:30 AM EST Hospital Encounter Outpatient [place] [address] Cadence Eric MD [facility] [place] [address] 04/06/2024 11:30 AM EST - 04/06/2024 12:50 PM EST Surgery [place] [address] Cadence Eric MD [facility] [place] [address] IMPLANT NEUROSTIMULATOR ELECTRODES, PERIPHERAL NERVE (WRVU 5.76) 04/14/2024 2:30 PM EST Office Visit [facility] [place] [address] Cadence Eric MD [facility] [place] [address] Scheduled Procedures Name Priority Associated Diagnoses Date/Ti [...] filedocumented in this encounter Care Teams Application Integrator Relationship Specialty Start Date End Date Ja Ordaz MD [address] [place] [address] PCP - General Emergency Medicine 03/11/21 documented as of this encounter
--- OUTSIDE RECORDS SUMMARY | 2024-04-05 16:26 | XMS_ITS | Encounter Summary ---
Author Organization Count Includes [facility] Address [facility] [place] [address] Care Team Providers Care Life Coach Name Role Phone Ja Ordaz MD Primary Care Provider [phone] Encounter Details Date Type Department Care Team (Latest Contact Info) Description 07/03/2021 12:41 PM EST - 07/03/2021 11:59 PM [facility] Hospital Encounter XRay at [address] [place] [address] Wayne Sanchez MD [facility] [address] Primary osteoarthritis of left knee Discharge Disposition: [...] daily. 2 gummies daily=4MG NARCAN 4 mg/actuation [place], Non-Aerosol instill 1 spray in 1 NOSTRIL if needed for opioid overdose may re... (REFER TO PRESCRIPTION NOTES). 0 12/08/2018 multivitamin with minerals Tablet Take 1 tablet by mouth daily. morphine sulfate/D5W (MORPHINE IN D5W) 1 mg/mL Prefilled Pump [place] Inject as directed. Has intrathecal pump with [...] Hospital Encounter [place] [address] Cadence Eric MD [facility] [place] [address] 04/06/2024 11:30 AM EST - 04/06/2024 12:50 PM EST Surgery [place] [address] Cadence Eric MD [facility] [place] [address] IMPLANT NEUROSTIMULATOR ELECTRODES, PERIPHERAL NERVE (WRVU 5.76) 04/14/2024 2:30 PM EST Office Visit [facility] [place] [address] Cadence Eric MD [facility] [place] [address] Scheduled Procedures Name Priority Associated Diagnoses Date/Ti [...] Name Priority Date/Time Associated Diagnosis Comments XR JOINT ASPIRATION - LARGE JOINT LEFT Routine 07/03/2021 1:33 PM EST Primary osteoarthritis of left knee documented in this encounter Results * XR Fluoro Guided Joint Aspiration Large Left (07/03/2021 1:33 PM EST) Anatomical Region Laterality Modality Left Radio Fluoroscop y Impressions 07/03/2021 3:49 PM EST Attempted left knee joint aspiration. Service Provider: Brisa Florez PA-C. Attending of Record: Dr. Yanni Crowder MD Preliminary report signed by: JENNY Montes De Oca at 07/03/2021 2:27 PM I have personally reviewed the image(s) and the provider's interpretation and agree with the findings, Yanni Crowder MD at 07/03/2021 3:49 PM Thank you for letting us participate in the care of this patient. ??If you are a health care provider and have any questions regarding this report, please contact the number below. ??For patients who have questions please contact the health campground caretaker that requested your imaging first. ? Electronically signed by: Yanni Crowder MD, [facility] ([phone]), at 07/03/2021 3:49 PM Narrative 07/03/2021 3:49 PM EST Attempted left knee JOINT ASPIRATION UNDER FLUOROSCOPY CLINICAL HISTORY: left knee pain in setting of left TKA, please aspirate and send for cell ct, culture, synovasure TECHNIQUE: After an extensive conversation with the patient regarding risks and benefits, oral and written consent were obtained. A pre- procedural time-out was performed as per [facility] protocol. The patient was placed supine with the left knee bend to approximately 30 degrees of flexion on the fluoroscopic table. A compressive Ken wrap was placed just proximal to the left knee. The skin over the anterior left knee was prepped and draped in the usual aseptic manner. 1% Lidocaine was used to achieve local anesthesia. Before the needle reached the joint space, the patient stated that she could not tolerate the procedure and that she wished to stop. The needle was immediately removed from the skin and the procedure was terminated. FINDINGS: Unsuccessful left knee joint aspiration due to patient tolerance of the procedure. MEDICATIONS: Lidocaine 1% - <5 ml, for subcutaneous anesthesia Fluoroscopy time: 0.03 sec COMPLICATIONS: None immediate. POST-PROCEDURE CARE: Instructions on monitor of infection, management of post procedure pain were reviewed with patient. Procedure Note Yanni Crowder MD - 07/03/2021 Attempted left knee JOINT ASPIRATION UNDER FLUOROSCOPY CLINICAL HISTORY: left knee pain in setting of left TKA, please aspirateand send for cell ct, culture, synovasure TECHNIQUE: After an extensive conversation with the patient regarding risks andbenefits, oral and written consent were obtained. A pre- procedural time-out wasperformed as per [facility] protocol. The patient was placed supine with the left knee bend to [id number] degrees of flexion on the fluoroscopic table. A compressive Ken wrap wasplaced just proximal to the left knee. The skin over the anterior left knee wasprepped and draped in the usual aseptic manner. 1% Lidocaine was used to achievelocal anesthesia. Before the needle reached the joint space, the patient statedthat she could not tolerate the procedure and that she wished to stop. Theneedle was immediately removed from the skin and the procedure was terminated. FINDINGS: Unsuccessful left knee joint aspiration due to patient tolerance of the procedure. MEDICATIONS: Lidocaine 1% - <5 ml, for subcutaneous anesthesia Fluoroscopy time: 0.03 sec COMPLICATIONS: None immediate. POST-PROCEDURE CARE: Instructions on monitor of infection, management ofpost procedure pain were reviewed with patient. IMPRESSION Attempted left knee joint aspiration. Service Provider: Brisa Florez PA-C. Attending of Record: Dr. Yanni Crowder MD Preliminary report signed by: JENNY Montes De Oca at 07/03/2021 2:27 PM I have personally reviewed the image(s) and the provider's interpretationand agree with the findings, Yanni Crowder MD at 07/03/2021 3:49 PM Thank you for letting us participate in the care of this patient. If youare a health care provider and have any questions regarding this report,please contact the number below. For patients who have questions please contactthe health campground caretaker that requested your imaging first. Wayne Sanchez MD IMG FLUORO ORDERABLE S documented in this encounter Visit Diagnoses Diagnosis Primary osteoarthritis of left knee Primary localized osteoarthrosis, lower leg Saphenous neuralgia, right documented in this encounter Administered Medications Inactive Administered Medications - up to 3 most recent administrations Medication Order MAR Action Action Date Dose Rate Site lidocaine (Xylocaine) 1% (10 mg/mL) injection 0-100 mg 0-100 mg (0-10 mL), Intra-articular, ONCE, 1 dose, On Thu07/03/21 at 1330, Radiology Protocol Medication, Routine Given 07/03/2021 1:27 PM EST 5 mg documented in this encounter Care Teams Life Coach Relationship Specialty Start Date End Date Ja Ordaz MD [address] [place] [id number] PCP - General Emergency Medicine 03/11/21 documented as of this encounter
--- OUTSIDE RECORDS SUMMARY | 2024-04-05 16:26 | XMS_ITS | Encounter Summary ---
Author Organization [facility] Address [facility] [place] [address] Care Team Providers Care Production Operations Engineer Name Role Phone Ja Ordaz MD Primary Care Provider [phone] Reason for Visit * Reason Comments Pre-op Exam PREOP 09/10/21 REVISIO N LEFT TKA Encounter Details Date Type Department Care Team (Late st Contact Info) Description 09/04/2021 10:00 AM EDT Office [place] [address] Tian Siddiqui MD [facility] [place] [address] Preop examination; Status post left knee replacement; Chronic pain of left knee; Loosening of prosthesis of left total knee replacement, sequela; Chronic prescription opiate use; Adult BMI 45.0-49.9 kg/sq m Social History Tobacco Use Types Packs/Day Years [...] Sign Reading Time Taken Comments Blood Pressure 114/64 09/04/2021 9:42 AM EDT Pulse 57 09/04/2021 9:42 AM EDT Temperature - - Respiratory Rate - - Oxygen Saturation 98% 09/04/2021 9:42 AM EDT Inhaled Oxygen Concentration - - Weight 108.4 kg (239 lb) 09/04/2021 9:42 AM EDT Height 152.4 cm (5') 09/04/2021 9:42 AM EDT Body Mass Index 46.68 09/04/2021 9:42 AM EDT documented in this encounter Progress Notes * Tian Siddiqui MD - 09/04/2021 10:00 AM EDT Images from the original note were not included. CC: Etelvina Cuadra is a 60 y.o. female new patient to the perioperative clinic with the following problems and medications that is being seen in the clinic for consultation at the request of her surgeon Dr. Maykel Jacobson for preoperative risk stratification and management recommendations in anticipation of revision left total knee arthroplasty for symptomatic TKA with loosening. HPI - Pain - Location - left knee, Quality - aching, clicking, unstable, warm Onset - persisted since her TKA Duration - since her TKA in 2019 Intensity - severe currently Aggravating factors - standing, walking, stepping, bending, Alleviating factors - NSAID, APAP, opiate, rest, topical are of limited relief, Associated - has intrathecal pump with Morphine managed per Dr. Becker at [facility]. Additionally she takes about three oxycodone 10mg tablets on a prn basis daily. She had dental abscess in August 2020 and had antibiotics during that management with dental surgery. She is distraught about her post operative experience, in the hospital she was not given her usual Synthroid (did not have it for 5 days), after discharge she had VNA RN only and NOT PT and she did her own PT HEP from prior experience after her other UKA. Patient Active Problem List Diagnosis Code ??? [...] S/P TKR (total knee replacement), left Z96.652 Current Outpatient Medications Medication Sig Dispense Refill ??? acetaminophen (Tylenol) 500 mg Tablet Take 500 mg by mouth every 6 hours as needed for Pain. ??? albuteroL 90 mcg/actuation HFA Aerosol Inhaler Inhale 2 puffs into the lungs every 4 hours as needed for Wheezing. Use with spacer ??? citalopram (CeleXA) 20 mg Tablet Take 20 mg by mouth nightly. ??? oxyCODONE (ROXICODONE) 10 mg Tablet Take 1 tablet by mouth 3 times daily as needed. 84 tablet 0 ??? amoxicillin (AMOXIL) 500 mg Tablet Take 4 tablets by mouth See Admin Instructions. Please take 2000mg of Amoxicillin 1 hour prior to Dental Procedure 20 tablet 0 ??? levothyroxine (Synthroid) 100 mcg Tablet Take 1 tablet by mouth daily. PATIENT REQUESTS SYNTHROID(NOT GENERIC) 90 tablet 1 ??? fenofibrate (TRIGLIDE) 160 mg Tablet Take 1 tablet by mouth nightly. (Patient taking differently: Take 160 mg by mouth daily. Take 1/2 tablet nightly) 90 tablet 1 ??? furosemide (Lasix) 20 mg Tablet Take 1 tablet by mouth daily as needed. 30 tablet 2 ??? epinephrine HCl/PF (EPINEPHrine, [...] Capsule Take by mouth daily. 2 gummies daily ??? NARCAN 4 mg/actuation [place], Non-Aerosol instill 1 spray in 1 NOSTRIL if needed for opioid overdose may re... (REFER TO PRESCRIPTION NOTES). 0 ??? multivitamin with minerals Tablet Take 1 tablet by mouth daily. ??? morphine 100 % Powd 10 mg/mL by Intrathecal route continuous. 42 mL 0 ??? morphine sulfate/D5W (MORPHINE IN D5W) 1 mg/mL Prefilled Pump [place] Inject as directed. Hasintrathecal pump with continuous rate and Has 5 preset prn boluses pt may give herself No current facility-administered medications for this visit. Social History Occupational History ??? Not on file Tobacco Use ??? Smoking status: Former Smoker Packs/day: 0.25 Types: Cigarettes Quit date: 09/23/1991 Years since quittin.9 ??? Smokeless tobacco: Never Used Vaping Use ??? Vaping Use: Never used Substance and Sexual Activity ??? Alcohol use: No ??? Drug use: No ??? Sexual activity: Not on file Family History Problem Relation Age of Onset ??? Coronary Artery Disease Father ??? Myocardial Infarction Father ??? Hypertension Father ??? Breast Cancer Maternal Grandmother ??? Anesthesia Reaction Neg Hx ??? Diabetes Neg Hx Review of Systems Constitutional: Negative for chills, diaphoresis and fever. Respiratory: Negative for cough, shortness of breath and wheezing. Cardiovascular: Negative for chest pain, palpitations and leg swelling. Gastrointestinal: Negative for abdominal pain, does have blood in stool since Spring this year, hasa smattering of blood in the bowl, sometimes the bleeding continues and soils her underwear, set off always by a BM, can be set off by a soft BM, denies fecal incontinence. She did have incarcerated hernia repair, she had postoperative infection. A colonoscopy is planned for Jun 2020. Endocrine: Negative for polydipsia and polyphagia. Genitourinary: Negative for dysuria, flank pain and hematuria. Does note stress UI, denies urgency. Skin: Negative for pallor and rash. Allergic/Immunologic: Does have environmental allergies and denies immunocompromised state. Neurological: Negative for presyncope, fall in past year, syncope and speech difficulty. Hematological: Negative for adenopathy. Reports a prior test revealing prolonged bleeding time. However, notes no nose or gum bleeds or melena Psychiatric/Behavioral: Negative for confusion, decreased concentration and mood is managed on current regime. Allergies: Allergies Allergen Reactions ??? Peanut Anaphylaxis ??? Peanut Oil Anaphylaxis ??? Rice Anaphylaxis ??? Wheat Anaphylaxis ??? Wheat Bran Anaphylaxis ??? Wheat Flour Anaphylaxis ??? Wheat Germ Oil Anaphylaxis ??? Wheat Starch Anaphylaxis ??? Adhesive Hives ??? Canine Protein Containing Products Itching ??? Hazelnut Other (See Comments) ??? Hydrocodone Other (See Comments) Bad headache ??? Hydrocodone-Acetaminophen Other (See Comments) Bad headache ??? Hydrocodone-Ibuprofen Other reaction(s): Unknown/Not Verified ??? Rofecoxib ??? Tetracyclines Itching ??? Wool Itching and Rash Physical Exam: Last Set of Vitals and Range over past 24 hours: Last value Range last 24 hrs Heart Rate Heart Rate: 57 Heart Rate: [57] Blood Pressure BP: 114/64 BP: (114)/(64) SpO2 SpO2: 98 % SpO2: [98 %] Estimated body mass index is 46.68 kg/m?? as calculated from the following: Height as of this encounter: 152.4 cm (5'). Weight as of this encounter: 108.4 kg (239 lb). Physical Exam Constitutional: She is oriented to person, place, and time. She appears well- developed. No distress. HENT: Head: Normocephalic and atraumatic. Eyes: Right eye exhibits no discharge. Left eye exhibits no discharge. No scleral icterus. Neck: Neck supple. No JVD present. Cardiovascular: Normal rate, regular rhythm and normal heart sounds. Exam reveals no gallop and no friction rub. No murmur heard. Pulmonary/Chest: Effort normal and breath sounds normal. No stridor. No respiratory distress. She has no wheezes. She has no rales. She exhibits no spinal tenderness. Abdominal: Soft. Bowel sounds are normal. She exhibits no percussed HSM. There is no CVA tenderness. There is no rebound and no guarding. Musculoskeletal: She exhibits no edema. She has left knee effusion with ROM 5-95 with no drift on extension. Using cane for ambulation. Neurological: She is alert and oriented to person, place, and time. She displays no tremors. Skin: Skin is warm and dry. She is not diaphoretic. No pallor. Psychiatric: She has a normal mood and affect. Her behavior is normal. Judgment and thought contentnormal. Lab Results Component Value Date WBC 6.7 09/04/2021 RBC 4.40 09/04/2021 HGB 12.5 09/04/2021 HCT 38.8 09/04/2021 MCV 88.2 09/04/2021 MCH 28.4 09/04/2021 MCHC 32.2 09/04/2021 PLATELET 348 09/04/2021 RDWCV 12.7 09/04/2021 Lab Results Component Value Date NA 140 09/04/2021 K 3.9 09/04/2021 CL 104 09/04/2021 CO2 27 09/04/2021 BUN 10 09/04/2021 CREATININE 0.69 (L) 09/04/2021 GLUCOSE 93 09/04/2021 CALCIUM 9.5 09/04/2021 ESTGFR 95 09/04/2021 Component Value Joint Culture No growth at 14 days. Gram Stain Cytocentrifuge Gram Stain performed Neutrophils seen No microorganisms seen. EKG (image reviewed): Sinus bradycardia, 53/min, sinus arrhythmia, Low voltage QRS, poor R wave progression, cannot rule out anterior infarct (no significant change when compared to prior tracing from February 2020) Bone Scan - FINDINGS: The blood flow is normal. There is mild uniform increased blood flow surrounding the left knee prosthesis.?? The bone scan displays moderate MDP tracer uptake diffusely surrounding the left knee prosthesis. ?? Xray - IMPRESSION 1. Right knee hemiarthroplasty without complications 2. Left knee total arthroplasty with new 1 to 2 mm lucency adjacent to the posterior femoral component and tibial stem. Finding may represent evolving postsurgical change. Attention on follow-up to exclude loosening. A/P 1. Preop examination 2. Status post left knee replacement 3. Chronic pain of left knee 4. Loosening of prosthesis of left total knee replacement, sequela 5. Chronic prescription opiate use 6. Adult BMI 45.0-49.9 kg/sq m She elects to proceed with TKA revision for improved pain and activity tolerance. Reviewed elevatedBMI and its association with complications such as loosening, infection, ODETTE and need for revision surgery. Her random glucose is excellent today suggesting optimization despite her elevated BMI. Anemia noted previously is no longer apparent today with normal H/H and RBC indices. She had above aspirate results which reveal no infection. She has no symptoms of ODETTE and reports she was evaluated in past, was measured regards her neck circumference and told that it was not high enough to warrant further evaluation. I counseled her about ODETTE and potential for loosening of arthroplasty and she was receptive to pursuing a sleep study through her PCP after recovery from her surgery. Major Risk Factor per the Revised Cardiac Risk Index (Bold if present) - There is no history of CAD, CHF, CVA or TIA, DM2 on insulin, or a Creatinine >2. Poor R wave progression is non specific and was NOT considered CAD equivalent per the RCRI. This can be seen with alteration in lead placement, alteration in BMI resulting in change in orientation of the heart, septal or ventricular hypertrophy other than coronary events. In the absence of new cardiopulmonary symptoms (chest pain, angina, SOB, syncope) - preoperative cardiac testing is not indicated. Her EKG showed similar finding in February 2020 per my review. Risk diagnosis for MACE (major adverse cardiovascular event = Myocardial infarction, pulmonary edema, ventricular fibrillation, primary cardiac arrest, or complete heart block.) : Low <1% . The patient describes a functional status of equal to 4METs (attends to self and home, support from partner at her side today, stairs) and based on the ACC/AHA 2014 guideline no further cardiovascular testing is indicated. ARISCAT/CANET Score - estimates the risk of postoperative pulmonary complications as being low ~3.5%. Per the ACS NSQIP calculator I estimated the following. Patient instructions: Take oxycodone the morning of surgery. Bring five Synthroid in pill bottle tosurgery. Plan for a sleep study through your PCP after recovery from surgery. RECOMMENDATION: Confer with APS for perioperative management with intrathecal pump, chronic opiate therapy. She must have her own Synthroid at HS Continue citalopram, albuterol, oxycodone, calcium with D, MVI with minerals and laxative Resume fenofibrate 48 hours after surgery. Is this patient a candidate for expedited recovery after total joint replacement No BMI>40, revision TKA planned, chronic opiate therapy. documented in this encounter Plan of Treatment Upcoming Encounters Date Type Department Care Team (Latest Contact Info) Description 04/06/2024 11:30 AM EST Hospital Encounter [place] [address] Cadence Eric MD [facility] [place] [address] 04/06/2024 11:30 AM EST - 04/06/2024 12:50 PM EST Surgery [place] [phone] Cadence Eric MD [facility] [address] IMPLANT NEUROSTIMULATOR ELECTRODES, PERIPHERAL NERVE (WRVU 5.76) 04/14/2024 2:30 PM EST Office Visit [facility] [place] [address] Cadence Eric MD [facility] [place] [address] Scheduled Procedures Name Priority Associated Diagnoses Date/Ti me IMPLANT NEUROSTIMULATOR ELECTRODES, PERIPHERAL NERVE (WRVU 5.76) Yes Saphenous neuralgia, right 04/06/2024 11:30 AM EST IMPLANT NEUROSTIMULATOR ELECTRODES, PERIPHERAL NERVE (WRVU 5.76) Saphenous neuralgia, 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 Neuropathic pain COLONOSCOPY,SCREENING (WRVU 3.26) Health maintenance examination-screening colo documented as of this encounter Visit Diagnoses Diagnosis Preop examination Preoperative examination, unspecified Status post left knee replacement Chronic pain of left knee Pain in joint, lower leg Loosening of prosthesis of left total knee replacement, sequela Chronic prescription opiate use Adult BMI 45.0-49.9 kg/sq m Body Mass Index 45.0-49.9, adult Saphenous neuralgia, right documented in this encounter Care Teams Production Operations Engineer Relationship Specialty Start Date End Date Ja Ordaz MD [address] [place] [id number] PCP - General Emergency Medicine 03/11/21 documented as of this encounter
--- OUTSIDE RECORDS SUMMARY | 2024-04-05 16:26 | XMS_ITS | Encounter Summary ---
Author Organization [facility] Address [facility] [place] [address] Care Team Providers Care Compliance Nurse Name Role Phone Ja Ordaz MD Primary Care Provider [phone] Reason for Visit * Reason Comments Pain Management Pump refill Encounter Details Date Type Department Care Team (Latest Contact Info) Description 07/03/2021 8:30 AM EST Procedure visit [place] [address] Karl Becker MD [facility] [place] [address] Postlaminectomy syndrome of lumbar region Social History [...] Sign Reading Time Taken Comments Blood Pressure 125/73 07/03/2021 8:30 AM EST Pulse 68 07/03/2021 8:30 AM EST Temperature 36.7 ??C (98.1 ??F) 07/03/2021 8:30 AM ES T Respiratory Rate - - Oxygen Saturation 91% 07/03/2021 8:30 AM EST Inhaled Oxygen Concentration - - Weight 102.1 kg (225 lb) 07/03/2021 8:30 AM EST Height - - Body Mass Index 43.94 06/05/2021 1:48 PM EST documented in this encounter Progress Notes * Karl Becker MD - 07/03/2021 8:30 AM EST ??INTRATHECAL PUMP REFILL PROCEDURE NOTE WITH REPROGRAMMING ?? Patient Name:??Etelvina L Walth?: [id number]?MR#: [id number] ?? Case Date: 07/03/21 ?? Surgeon: Surgeon(s) and Role: ?* Karl Becker MD - Primary ?? Present on Admission: ?Presence of intrathecal pump ?? Postoperative diagnosis:??same ?? Procedure(s) (LRB): ELECTRONIC HERNANDEZ PROG., PUMP- DRUG INFUS; W/ REPROGRAM & REFILL MILAGRO DAWSON (WRVU 0.9) (N/A) ? Primary Blueprint Duplicator: Karl Becker MD ?? Reason for Reprogramming:??Interrogation to confirm no pump log errors and to refill pump ?? Diagnosis: Post-laminectomy syndrome ?? Functional improvement with the pump: Able to complete ADL's with less pain. She is s/p left knee replacement 03/2020. ?? Side effects from pump: ??Minor pain [...] mL ?? Computer predicted residual volume in pump:??10.2??mL ?? Actual Arma volume:??11mL ?? Medication or Dose Changes: None ?? Is dose change >30%? No ?? Is concentration of drug different? ??No ?? Empty syringe concentration verified by cash checker: yes ?? If concentration of drug is different, has a bridge bolus been programmed? n/a. ?? Has any program been used other than simple continuous or bridge bolus and simple continuous? no ?? Infusion Mode: simple continuous. ?? New ??Alarm Date:11/07/21 ?? PROCEDURE: Risks and expected side effects [...] drapes were applied as provided with the ??[employer] refill kit. A 22 gauge Moraes non-coring needle supplied with the refill kit was inserted through the refill-template into the central refill port of the pump. ??The pump was aspirated for the above measured residual volume. ??This residual volume was discarded. Freshly prepared solution of the drug(s) and concentration(s) as noted above was used to refill the pump 0. 5 ml of solution was instilled and easily withdrawn, no more and no less than 0.5 ml. A total of 40 ml of solution was instilled into the pump according to the cell pourer's directions without difficulty. There was no evidence of over pressurization at the conclusion of the filling process. ??The Moraes needle was withdrawn and a Band-Aid was applied. The pump was then re-accessed via telemetryand reprogrammed to indicate the refill volume of 40 ml. The unused portion of the medication was discarded along with the old drug aspirated. ?? Battery alarms reviewed and were appropriately enabled and in working order. ?? documented in this encounter Plan of Treatment Upcoming Encounters Date Type Department Care Team (Latest Contact Info) Description 04/06/2024 11:30 AM EST Hospital Encounter Outpatient [place] [address] Cadence Eric MD [facility] [place] [address] 04/06/2024 11:30 AM EST - 04/06/2024 12:50 PM EST Surgery [place]patient [place] [address] Cadence Eric MD [facility] [place] [address] IMPLANT NEUROSTIMULATOR ELECTRODES, PERIPHERAL NERVE (WRVU 5.76) 04/14/2024 2:30 PM EST Office Visit [facility] [place] [address] Cadence Eric MD [facility] [place] [address] Scheduled Procedures Name Priority Associated Diagnoses Date/Ti [...] right documented in this encounter Care Teams Compliance Nurse Relationship Specialty Start Date End Date Ja Ordaz MD [address] [place] [id number] PCP - General Emergency Medicine 03/11/21 documented as of this encounter
--- OUTSIDE RECORDS SUMMARY | 2024-04-05 16:26 | XMS_ITS | Encounter Summary ---
[place] [address] Care Team Providers Care [employer] Senior Sergeant Name Role Phone Ja Ordaz MD Primary Care Provider [phone] Reason for Visit * Reason Comments Left Knee Pain Post Op S/p L TKA - f/u afte r aspiration Encounter Details Date Type Department Care Team (Late st Contact Info) Description 07/10/2021 11:00 AM EST Office [place] [address] Clinic, Dr Sanchez Team None Status post left knee replacement Social History Tobacco Use Types Packs/Day Years [...] Sign Reading Time Taken Comments Blood Pressure 129/66 07/10/2021 11:02 AM EST Pulse 62 07/10/2021 11:02 AM EST Temperature - - Respiratory Rate - - Oxygen Saturation - - Inhaled Oxygen Concentration - - Weight 102.1 kg (225 lb) 07/10/2021 11:02 AM EST Height 152.4 cm (5') 07/10/2021 11:02 AM EST Body Mass Index 43.94 07/10/2021 11:02 AM EST documented in this encounter Progress Notes * Rosa Maria, JENNY Sanchez - 07/10/2021 11:00 AM EST Etelvina Cuadra is a 60 y.o. female who presents to clinic today for procedure only visit, left knee aspiration, discuss bone scan results. She tried to undergo a fluoroscopy guided aspiration of the left knee. Reports that this procedure caused her significant pain. She was unable to tolerate and therefore decided to forego the procedure. She does report that she has undergone previous aspiration with an outside office and has tolerated these. She is hesitant to proceed with aspiration of the left knee. Also has undergone bone scan. Vital Signs Heart Rate: 62 BP: 129/66 Patient Position: Sitting Last CRP, SEDRATE Recent Labs 06/05/21 1519 CRP <3.0 SEDRATE 17 left knee with mild effusion. No warmth, lesions, drainage. ROM 0-90. Stable to varus, valgus and AP stress. Calf is supple, nontender. Foot is warm, well perfused. Sensation intact to light touch distally. Bone scan reveals significant delayed phase uptake around the tibial and femoral prostheses. Concerning for loosening. PROCEDURE NOTE: left knee aspiration A time-out was performed and the left knee was confirmed to be the site of injection. The patient was confirmed to have no allergies to betadine, local anesthetics. The patient was counseled about the potential risks of the procedure, including infection, bleeding and inadequate sample. The patient provided consent. The skin was prepped widely over the left knee. Then, using sterile technique, a solution consisting of 4cc 1% lidocaine (40 mg) was injected into the left knee. The needle was felt to slide into thecapsule and the mixture flowed freely. After allowing sufficient time for the anesthetic to take effect, a 20g spinal needle was used to aspirate 15cc of straw colored blood tinged synovial fluid. The skin was cleaned and a Band-Aid was applied. The patient tolerated the procedure well. Discussed bone scan concerning for loosening. Will await lab results to determine whether there is infection present. Likely plan for revision. TOV in 2 weeks to discuss results, finalize surgical plan. JENNY Streeter documented in this encounter Plan of Treatment Upcoming Encounters Date Type Department Care Team (Latest Contact Info) Description 04/06/2024 11:30 AM EST Hospital Encounter [place] [address] Cadence Eric MD [facility] [place] [address] 04/06/2024 11:30 AM EST - 04/06/2024 12:50 PM EST Surgery Outpatient [place] [address] Cadence Eric MD [facility] [place] [address] IMPLANT NEUROSTIMULATOR ELECTRODES, PERIPHERAL NERVE (WRVU 5.76) 04/14/2024 2:30 PM EST Office Visit [place] [address] Cadence Eric MD [facility] [place] [address] Scheduled Procedures Name Priority Associated Diagnoses Date/Ti [...] Procedure Name Priority Date/Time Associated Diagnosis Comments LAB SCAN 07/11/2021 12:00 AM EST HC CONC. FOR INFECTIOUS AGENTS STAT 07/10/2021 12:42 PM EST Status post left knee replacement JOINT CULTURE STAT 07/10/2021 12:42 PM EST Status post left knee replacement ANAEROBIC CULTURE STAT 07/10/2021 12: 42 PM EST Status post left knee replacement HC FUNGUS CULTURE, MISC SOURCE STAT 07/10/2021 12:42 PM EST Status post left knee replacement HC BODY FLUID CRYSTALS STAT 07/10/2021 12:03 PM EST Status post left knee replacement HC BODY FLUID CELL CT W/DIFF STAT 07/10/2021 12:03 PM EST Status post left knee replacement LAB SCAN 07/10/2021 12:00 AM EST documented in this encounter Results * SCAN DOC: LAB (07/11/2021 12:00 AM EST) Unknown MEDIA MGR SCAN EXT O RDR/RSLT * Anaerobic Culture (07/10/2021 12:42 PM EST) Anaerobic Culture No anaerobic organisms isolated [facility] Joint Fluid STRUCTURE OF LEFT KNEE REGION / Unknown 07/10/2021 12:42 PM EST 07/10/2021 12:42 PM EST Comment:Please do stat gram stain and culture. HOLD SPECIMEN FOR 14 DAYS. Narrative Resulting Agency Comment Spec In Lab Wayne Sanchez MD MICROBIOLOGY - GENER AL ORDERABLES Performing Organization Address City/[facility]/ZIP Co de Phone Number [facility] [place] [address] * Joint Culture (07/10/2021 12:42 PM EST) Joint Culture No growth at 14 days. [facility] Gram Stain Cytocentrifuge Gram Stain performed Neutrophils seen No microorganisms seen. [facility] Joint Fluid STRUCTURE OF LEFT KNEE REGION / Unknown 07/10/2021 12:42 PM EST 07/10/2021 12:42 PM EST Comment:Please do stat gram stain and culture. HOLD SPECIMEN FOR 14 DAYS. Narrative Resulting Agency Comment Spec In Lab Wayne Sanchez MD MICROBIOLOGY - GENER AL ORDERABLES Performing Organization Address City/[facility]/ZIP Co de Phone Number [facility] [place] [place] [address] * Fungus culture Joint (07/10/2021 12:42 PM EST) Fungus Culture No Fungus isolated [facility] Joint 07/10/2021 12:4 2 PM EST 07/10/2021 12:42 PM EST Narrative Resulting Agency Comment Spec In Lab Wayne Sanchez MD MICROBIOLOGY - GENER AL ORDERABLES Performing Organization Address City/[facility]/ZIP Co de Phone Number [facility] [place] [place] [address] * (ABNORMAL) Cell Count Body Fluid (07/10/2021 12:03 PM EST) Body Fluid Source Knee Fl [facility] Color, Fld Red [facility] Appearance, Fld Cloudy [facility] WBC Count, Fld 195(H) <=149 /mcl [facility] Comment: All body fluid results should always be interpreted in light of the total clinical presentation of the patient, including clinical history, data from additional tests and other appropriate information. Polymorphonuclear cells BF % 27 % [facility] Comment: Polymorphonuclear cell percent and absolute values may contain Neutrophils, Eosinophils, and Basophils. Body fluid smear will be scanned manually for concordance. Mononuclear cells BF % 73 % [facility] Comment: Mononuclear cell percent and absolute values may contain Lymphocytes and Monocytes. Body fluid smear will be scanned manually for concordance. Polymorphonuclear cells BF ABS 52 /mcl [facility] Comment: Polymorphonuclear cell percent and absolute values may contain Neutrophils, Eosinophils, and Basophils. Body fluid smear will be scanned manually for concordance. Mononuclear cells BF ABS 143 /mcl [facility] Comment: Mononuclear cell percent and absolute values may contain Lymphocytes and Monocytes. Body fluid smear will be scanned manually for concordance. Knee Joint Fluid 07/10/2021 12:03 PM EST 07/10/2021 12:42 PM EST Narrative Resulting Agency Comment Spec In Lab Wayne Sanchez MD BODY FLUIDS AND STOO LS ORDERABLES Performing Organization Address City/[facility]/ZIP Co de Phone Number [facility] [place] [address] * Crystal Exam Body Fluid (07/10/2021 12:03 PM EST) Crystal BF Type Knee fluid [facility] Crystal Exam, Fld None Seen [facility] Knee Joint Fluid 07/10/2021 12:03 PM EST 07/10/2021 12:42 PM EST Narrative Resulting Agency Comment Spec In Lab Wayne Sanchez MD BODY FLUIDS AND STOO LS ORDERABLES [facility] [place] [address] * SCAN DOC: LAB (07/10/2021 12:00 AM EST) Unknown MEDIA MGR SCAN EXT O RDR/RSLT documented in this encounter Visit Diagnoses Diagnosis Status post left knee replacement Saphenous neuralgia, right documented in this encounter Care Teams [employer] Senior Sergeant Relationship Specialty Start Date End Date Ja Ordaz MD [address] [place] [address] PCP - General Emergency Medicine 03/11/21 documented as of this encounter
--- OUTSIDE RECORDS SUMMARY | 2024-04-05 16:26 | XMS_ITS | Encounter Summary ---
Author Organization [facility] Address [facility] [place] [address] Care Team Providers Care Manager Transit Name Role Phone Ja Ordaz MD Primary Care Provider [phone] Reason for Visit * Auth/Cert Specialty Diagnoses / Procedures Referred By Cindy wooten Referred To Contact Diagnoses Postlaminectomy Syndrome Procedures PRO ELECTRONIC PUMP ANALYSIS W REPROGRAMMING AND REFILL BY MD/AMBULANCE DRIVER PARAMEDIC ELECTRONIC HERNANDEZ PROG., PUMP- DRUG INFUS; W/ REPROGRAM & REFILL REQ (WRVU 0.9) Referral ID Status Reason Start Date Expiration Date Visits Re quested Visits Authorized [id number] 1 1 Encounter Details Date Type Department Care Team (Latest Contact Info) Description 03/13/2021 12:23 PM EDT - 03/13/2021 1:36 PM EDT Hospital [place] [id number] Carrie Yanes MD [facility] [address] [place] [address] Karl Becker MD [facility] PAIN [facility]INIC [place], [place] [id number] Postlaminectomy syndrome of lumbar region Discharge Disposition: [...] Sign Reading Time Taken Comments Blood Pressure 137/75 03/13/2021 12:47 PM EDT Pulse 74 03/13/2021 12:47 PM EDT Temperature - - Respiratory Rate - - Oxygen Saturation 98% 03/13/2021 12:47 PM EDT Inhaled Oxygen Concentration - - Weight 103.4 kg (228 lb) 03/13/2021 12:47 PM EDT Height 144.8 cm (4' 9) 03/13/2021 12:47 PM EDT Body Mass Index 49.34 03/13/2021 12:47 PM EDT documented in this encounter Discharge Instructions * Discharge Instructions* Holland Crawford - 03/13/2021 1:29 PM EDT Pain Management Center Discharge Instructions: You were seen today by Surgeon(s): Karl Becker MD Krause, Jeffrey A, MD The following was performed: Procedure(s) (LRB): ELECTRONIC HERNANDEZ PROG., PUMP- DRUG INFUS; W/ REPROGRAM & REFILL MILAGRO DAWSON (WRVU 0.9) (N/A) It is normal that the injection site will be sore for up to 48 hours. You may resume your normal activities: tomorrow. You may shower today. DO NOT tub bathe, use whirlpools, hot tubs or pool therapy for 2 days. RemoveBand-Aid(s) later today/tomorrow. Do not drive until tomorrow. Use caution walking/climbing stairs as you may be unsteady on your feet. You may use your usual medications, including pain medications, as directed, unless otherwise instructed. You may use an ice pack as needed for the first 24 hours, on for 20 minutes then off for 20 minutes. Do not apply heat today. Attempt to empty your bladder 4-6 hours after your procedure. You received the following medications: Medications Given During Procedure None During regular business hours, please phone the Pain Management Center at with any questions or if the following or other troubling symptoms develop: 1) Prolonged dizziness or weakness (more than 1 day). 2) Localized swelling, redness or drainage at the injection site(s). 3) Temperature of 101 degrees that lasts for more than 4 hours. After 5 PM or on weekends, call and ask for Pain Clinic provider on-call. If you are unable to reach the Pain Management Center and have a complication, please call your Primary Care Provider or proceed to your local emergency department. Holland Crawford Special instructions documented in this encounter Medications at Time [...] daily. 2 gummies daily=4MG NARCAN 4 mg/actuation Sinclair, Non-Aerosol instill 1 spray in 1 NOSTRIL if needed for opioid overdose may re... (REFER TO PRESCRIPTION NOTES). 0 12/08/2018 multivitamin with minerals Tablet Take 1 tablet by mouth daily. morphine sulfate/D5W (MORPHINE IN D5W) 1 mg/mL Prefilled Pump [place] Inject as directed. Has intrathecal pump with [...] needed. 09/04/2021 documented as of this encounter H&P Notes * Edouard Olvera MD - 03/12/2021 11:10 PM EDT Patient Name: Etelvina Cuadra Patient Age: 60 y.o. Birthdate: 1960 Admit date: 03/13/2021 Attending Physician: Carrie Yanes MD PREPROCEDURE HISTORY AND PHYSICAL Date of Visit: March 13, 2021 Chief Complaint: IT pump refill HPI: Etelvina Cuadra is a 60 y.o. female with a diagnosis of 1. Postlaminectomy syndrome of lumbar region who presents today for: Procedure: ITP refill The patient denies any recent NSAID or anticoagulation. The patient denies any allergy to local anesthetics, contrast dye, or steroids. Patient denies any recent antibiotic use. Patient states they are in their usual state of health. The history is obtained from the patient, and I have reviewed medical records provided by the referring physician and located in the electronic medical record to fill in gaps in the patient's recollection of events, treatments and outcomes. LOCATION: R hip, knee and back. PAIN LEVEL AT REST 10/18 PAST MEDICAL [...] hernia, with obstruction, without gangrene 06/24/2018 ??? correction current use of opiate analgesic Oxycodone 10 [...] DEVICE FOR INTRATHECAL INFUSION, SUBQ RESERVOIR ??? ORTHOPEDIC SURGERY ??? PRO COLONOSCOPY, BIOPSY 10/07/2011 COLONOSCOPY FLEXIBLE, WITH BX performed by NIKKI MAYORGA at [facility] ENDOSCOPY ??? PRO COLONOSCOPY, DIAGNOSTIC 09/23/2011 COLONOSCOPY, DIAGNOSTIC performed by NIKKI MAYORGA at [facility] ENDOSCOPY ??? PRO ELECTRONIC PUMP ANALYSIS W REPROGRAMMING AND REFILL BY /NAHID N/A 03/30/2019 ELECTRONIC HERNANDEZ PROG., PUMP- DRUG INFUS; W/ REPROGRAM & REFILL REQ (WRVU 0.9) performed by Karl Becker MD at [facility] PAIN MGMT MSO ??? PRO ELECTRONIC PUMP ANALYSIS W REPROGRAMMING AND REFILL BY /NAHID N/A 12/05/2019 ELECTRONIC HERNANDEZ PROG., PUMP- DRUG INFUS; W/ REPROGRAM & REFILL REQ (WRVU 0.9) performed by Karl Becker MD at [facility] PAIN MGMT MSO ??? PRO ELECTRONIC PUMP ANALYSIS W REPROGRAMMING AND REFILL BY /NAHID N/A 03/12/2020 ELECTRONIC HERNANDEZ PROG., PUMP- DRUG INFUS; W/ REPROGRAM & REFILL REQ (WRVU 0.9) performed by Karl Becker MD at [facility] PAIN MGMT MSO ??? PRO ELECTRONIC PUMP ANALYSIS W REPROGRAMMING AND REFILL BY /NAHID N/A 11/07/2020 ELECTRONIC HERNANDEZ PROG., PUMP- DRUG INFUS; W/ REPROGRAM & REFILL REQ (WRVU 0.9) performed by Karl Becker MD at [facility] PAIN MGMT MSO ??? PRO IMP SPINAL CANAL CATH Midline 03/23/2019 IMPLANT, REV OR REP TUNNELED INTRATHACAL OR EPIDURAL CATHETER (WRVU 6.05) performed by Karl Becker MD at [facility] OR ??? PRO INSERT/ REPLACE INFUSN PUMP, PROGRAMMABLE Right 03/23/2019 IMPLANT OR REPLACE PROG. PUMP-DRUG INFUSION (WRVU 5.6) [facility] ??? PRO LAP, CHOLECYSTECTOMY/GRAPH N/A 10/18/2016 LAPAROSCOPIC CHOLECYSTECTOMY WITH CHOLANGIOGRAM (WRVU 11.47) performed by Tasia Umaña MD at [facility] OR ??? PRO LAP, VENTRAL HERNIA REPAIR, INCARCERATED N/A 07/12/2018 LAPAROSCOPIC HERNIA, VENTRAL, INCARCERATED, W-WO MESH (WRVU 14.94) performed by Izzy Blanco MD at [facility] OR ??? PRO TOTAL KNEE ARTHROPLASTY Left 03/29/2020 TOTAL KNEE ARTHROPLASTY (WRVU 20.72) performed by Maykel Jacobson MD at [facility] OR There are no past surgical contraindications to this procedure ALLERGIES: Peanut, Peanut oil, Rice, Wheat, Wheat bran, Wheat flour, Wheat germ oil, Wheat starch, Adhesive, Canine protein containing products, Hazelnut, Hydrocodone, Hydrocodone-acetaminophen, Hydrocodone-ibuprofen, Rofecoxib, Tetracycline, Tetracyclines, and Wool There are no allergic contraindications to this procedure. MEDICATIONS: No current facility-administered medications for this encounter. There are no medication contraindications to this procedure. FAMILY HISTORY: Family History Problem Relation Age of Onset ??? Coronary Artery Disease Father ??? Myocardial Infarction Father ??? Hypertension Father ??? Breast Cancer Maternal Grandmother ??? Anesthesia Reaction Neg Hx SOCIAL HISTORY: Social History Socioeconomic History ??? Marital status: Spouse name: Not on file ??? Number of children: Not on file ??? Years of education: Not on file ??? Highest education level: Not on file Occupational History ??? Not on file Tobacco Use ??? Smoking status: Former Smoker Packs/day: 0.25 Types: Cigarettes Quit date: 09/23/1991 Years since quittin.4 ??? Smokeless tobacco: Never Used Vaping Use ??? Vaping Use: Never used Substance and Sexual Activity ??? Alcohol use: No ??? Drug use: No ??? Sexual activity: Not on file Other Topics Concern ??? Not on file Social History Narrative ??? Not on file Social Determinants of Health Financial Resource Strain: ??? Difficulty of Paying Living Expenses: Not on file Food Insecurity: ??? Worried About Running Out of Food in the Last Year: Not on file ??? Ran Out of Food in the Last Year: Not on file Transportation Needs: ??? Lack of Transportation (Medical): Not on file ??? Lack of Transportation (Non-Medical): Not on file Physical Activity: ??? Days of Exercise per Week: Not on file ??? Minutes of Exercise per Session: Not on file Housing Stability: ??? Unable to Pay for Housing in the Last Year: Not on file ??? Number of Places Lived in the Last Year: Not on file ??? Unstable Housing in the Last Year: Not on file There are no social history contraindications to this procedure. ROS: Review of Systems Constitutional: Negative for fever, chills, or recent infection. Respiratory: Negative for shortness of breath. Cardiovascular: Negative for chest pain. Musculoskeletal: Positive for msk pain. Psychiatric/Behavioral: Negative for agitation and behavioral problems. PHYSICAL EXAM: BP 137/75 (Patient Position: Sitting) Pulse 74 Ht 144.8 cm (4' 9) Wt 103.4 kg (228 lb) SpO2 98% BMI 49.34 kg/m?? Physical Exam Constitutional: She appears well-developed and well-nourished. No distress. Cardiovascular: Normal heart rate. Pulmonary/Chest: Effort normal and breath sounds normal. Skin: She is not diaphoretic. This is no rash, apparent infection, or other abnormality to the areaof the proposed injection. No LMP recorded. Patient is postmenopausal. There are no physical examination findings which would preclude this procedure. LABS: No results for input(s): WBC, RBC, HGB, HCT, MCV, MCH, MCHC, PLATELET, RDWCV in the last 168 hours. No results for input(s): PT, PTT, INR in the last 168 hours. ASSESSMENT: 1. Postlaminectomy syndrome of lumbar region PLAN: Proceed with procedure as planned. Thank you for the opportunity to participate in Etelvina Cuadra's care. Please feel free to contact mewith any questions. Sincerely, Edouard Olvera MD Pain Medicine Fellow [address] [phone] / [facility] CC: Carrie Yanes MD [facility] [place] [address] documented in this encounter Miscellaneous Notes * Op Note - Karl Becker MD - 03/13/2021 1:18 PM EDT Pain Management Operative Note Patient Name: Etelvina Cuadra : [id number] MR#: [id number] Case Date: 03/13/2021 Surgeon: Surgeon(s) and Role: * Karl Becker MD - Primary * Edouard Olvera MD - Fellow Present on Admission: ??? Postlaminectomy syndrome of lumbar region Postoperative diagnosis: same Procedure(s) (LRB): ELECTRONIC HERNANDEZ PROG., PUMP- DRUG INFUS; W/ REPROGRAM & REFILL REQ (WRVU 0.9) (N/A) INTRATHECAL PUMP REFILL PROCEDURE NOTE WITH REPROGRAMMING WITH FLUOROSCOPY Primary Cardroom Plastic Card Grader: Karl Becker MD Team Guide: Edouard Olvera MD Reason for Reprogramming: Refill Diagnosis: Chronic pain. Telemetry Pre-Refill Programming Reading: Drugs/Concentrations: Morphine - Preservative Free - 10 mg/ml Daily Dose: 2.001 mg/day Telemetry Post-Refill Programming Reading: Drugs/Concentrations: Morphine - Preservative Free - 10 mg/ml Daily Dose: 2.001 mg/day Brand/Compound: Compound. Barragan Lot #: [id number] Pump Capacity: 40 mL Computer predicted residual volume in pump: 4.4 ml Measured residual volume in pump: 6 ml Medication or Dose Changes: no Is dose change >30%? n/a Is concentration of drug different? no Empty syringe concentration verified by sample checker: yes If concentration of drug is different, has a bridge bolus been programmed? n/a. Has any program been used other than simple continuous or bridge bolus and simple continuous? yes, PTM 0.2 mg Q3hr Infusion Mode: simple continuous.with PTM New Alarm Date: 07/18/21 PROCEDURE: Risks and expected side effects were reviewed with patient and her voiced concerns addressed. The printed consent form was signed and witnessed. The following information was verified: ?? Patient Name on RX: yes ?? Drug Name on RX:yes ?? Drug concentration on syringe containing pump refill medication: yes The pump was accessed via telemetry and the computer predicted residual volume was noted as per above. Then Chlorhexidine prep over the pump refill site was performed. Sterile drapes were applied as provided with the X[employer]M [employer] refill kit. A 22 gauge Moraes non-coring [...] instilled into the pump according to the wound nurse's directions without difficulty. There was no evidence of over pressurization at the conclusion of the filling process. The Moraes needle was withdrawn and a Band-Aid was applied. The pump was then re-accessed via telemetry and reprogr ammed to indicate the refill volume of 40 [...] AM EST Hospital Encounter [place] [address] Cadence Eric MD [facility] [place] [address] 04/06/2024 11:30 AM EST - 04/06/2024 12:50 PM EST Surgery [place] [address] Cadence Eric MD [facility] [place] [address] IMPLANT NEUROSTIMULATOR ELECTRODES, PERIPHERAL NERVE (WRVU 5.76) 04/14/2024 2:30 PM EST Office Visit [place] [address] Cadence Eric MD [facility] [place] [address] Scheduled Procedures Name Priority Associated Diagnoses Date/Ti [...] Priority Date/Time Associated Diagnosis Comments Anal Inf Workplace Relations Adviser W ReproRefil([id number]) 03/13/2021 1:11 PM EDT Postlaminectomy syndrome of lumbar region ELECTRONIC HERNANDEZ PROG., PUMP- DRUG INFUS; W/ REPROGRAM & REFILL REQ Routine 03/13/2021 12:40 PM EDT Postlaminectomy syndrome of lumbar region documented in this encounter Visit Diagnoses Diagnosis Postlaminectomy syndrome of lumbar region Postlaminectomy syndrome, lumbar region Postlaminectomy syndrome of lumbar region Postlaminectomy syndrome, lumbar region Saphenous neuralgia, right documented in this encounter Care Teams Manager Transit Relationship Specialty Start Date End Date Ja Ordaz MD [address] [place] [id number] PCP - General Emergency Medicine 03/11/21 documented as of this encounter
--- OUTSIDE RECORDS SUMMARY | 2024-04-05 16:26 | XMS_ITS | Encounter Summary ---
Author Organization [facility] Address [facility] [place] [address] Care Team Providers Care Senior Net Software Developer Name Role Phone Ja Ordaz MD Primary Care Provider [phone] Encounter Details Date Type Department Care Team (Late st Contact Info) Description 06/05/2021 Orders Only [place] [phone] Brisa Florez PA [facility] [place] [address] Social History Tobacco Use Types Packs/Day Years [...] AM EST Hospital Encounter Outpatient [place] [phone] Cadence Eric MD [facility] [place] [address] 04/06/2024 11:30 AM EST - 04/06/2024 12:50 PM EST Surgery Outpatient [place] [address] Cadence Eric MD [facility] [place] [address] IMPLANT NEUROSTIMULATOR ELECTRODES, PERIPHERAL NERVE (WRVU 5.76) 04/14/2024 2:30 PM EST Office Visit [facility] [place] [address] Cadence Eric MD [facility] [place] [address] Scheduled Procedures Name Priority Associated Diagnoses Date/Ti [...] filedocumented in this encounter Care Teams Senior Net Software Developer Relationship Specialty Start Date End Date Ja Ordaz MD [address] [place] [address] PCP - General Emergency Medicine 03/11/21 documented as of this encounter
--- OUTSIDE RECORDS SUMMARY | 2024-04-05 16:26 | XMS_ITS | Encounter Summary ---
Author Organization [facility] Address [facility] [place] [address] Care Team Providers Care Air Cargo Specialist Name Role Phone Ja Ordaz MD Primary Care Provider [phone] Encounter Details Date Type Department Care Team (Latest Contact Info) Description 07/25/2021 9:00 AM EDT TH Visit (TeleHealth) [place] [address] Rosa MariaIzzy PA [facility] [place] [address] Status post left knee replacement; Chronic pain of left knee; Left leg pain Social [...] as of this encounter Progress Notes * Izzy Crane PA - 07/25/2021 9:00 AM EDT Called patient to discuss labs, aspiration. Reassuring against infection. Plan for revision TKA forprobable aseptic loosening based on bone scan. [place] [facility] [place] in [place] encounter Plan of Treatment Upcoming Encounters Date Type Department Care Team (Latest Contact Info) Description 04/06/2024 11:30 AM EST Hospital Encounter Outpatient [place] [address] Cadence Eric MD [facility] [place] [address] 04/06/2024 11:30 AM EST - 04/06/2024 12:50 PM EST Surgery Outpatient [place] [address] Cadence Eric MD [facility] [place] [address] IMPLANT NEUROSTIMULATOR ELECTRODES, PERIPHERAL NERVE (WRVU 5.76) 04/14/2024 2:30 PM EST Office Visit [place] [address] Cadence Eric MD [facility] [place] [address] Scheduled Procedures Name Priority Associated Diagnoses Date/Ti me IMPLANT NEUROSTIMULATOR ELECTRODES, PERIPHERAL NERVE (WRVU 5.76) Yes Saphenous neuralgia, right 04/06/2024 11:30 AM EST IMPLANT NEUROSTIMULATOR ELECTRODES, PERIPHERAL NERVE (WRVU 5.76) Saphenous neuralgia, 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 Neuropathic pain COLONOSCOPY,SCREENING (WRVU 3.26) Health maintenance examination-screening colo documented as of this encounter Results * APTT (09/04/2021 9:35 AM EDT) Partial Thromboplastin Time 32 25 - 37 sec [facility] Comment: The PTT is NOT appropriate for heparin monitoring. Use the Anti-Xa level for heparin monitoring (HEP UFH) or LMWH monitoring (HEP LMW). A PTT less than 37 seconds generally indicates adequate hemostasis. Blood 09/04/2021 9:35 AM EDT 09/04/2021 10:02 AM EDT Narrative Resulting Agency Comment Spec In Lab Wayne Sanchez MD HEMATOLOGY ORDERABLE S Performing Organization Address [facility] de Phone Number [facility] [place] [address] * Prothrombin Time (09/04/2021 9:35 AM EDT) Prothrombin Time 11.4 9.4 - 12.5 sec [facility] International Normalization Ratio 1.0 [facility] Comment: An INR <2.0 indicates [...] be appropriate depending on clinical circumstances. Blood 09/04/2021 9:35 AM EDT 09/04/2021 10:02 AM EDT Narrative Resulting Agency Comment Spec In Lab Wayne Sanchez MD HEMATOLOGY ORDERABLE S Performing Organization Address [facility] de Phone Number [facility] [place] [address] * (ABNORMAL) Basic Metabolic Panel (non-fasting) (09/04/2021 9:35 AM EDT) Glucose 93 65 - 199 mg/dL [facility] Comment:Diabetes: >=200 mg/d L plus symptoms Blood Urea Nitrogen 10 8 - 18 mg/dL [facility] Creatinine 0.69(L) 0.70 - 1.20 mg/dL [facility] Sodium 140 135 - 145 mmol/L [facility] Potassium 3.9 3.5 - 5.0 mmol/L [facility] Comment: Please note: ??Patients with WBC >100,000 may have falsely elevated Potassium levels. ??For accurate Potassium quantification in these patients send serum separator tube (gold top) for subsequent determinations. ??Contact the Clinical Chemistry Laboratory if there are any questions. Chloride 104 98 - 107 mmol/L [facility] Carbon Dioxide 27 22 - 31 mmol/L [facility] Anion Gap 9 5 - 15 mmol/L [facility] Calcium 9.5 8.5 - 10.5 mg/dL [facility] Est Glomerular Filtration Rate 95 >=60 mL/min/1. 73 m?? [facility] Comment: This patient? s estimated glomerular filtration rate (eGFR) is between 95 mL/min/1.73 m2 (patients with less muscle mass) and 110 mL/min/1.73 m2 (patients with more muscle mass) [...] and symptoms in addition to eGFR. Blood 09/04/2021 9:35 AM EDT 09/04/2021 10:02 AM EDT Narrative Resulting Agency Comment Spec In Lab Wayne Sanchez MD CHEMISTRY ORDERABLES [facility] [place] [address] * EKG 12 Lead (09/04/2021 9:24 AM EDT) Ventricular rate 53 BPM MUSE SYSTEM Atrial Rate 53 BPM MUSE SYSTEM P-R Interval 202 ms MUSE SYSTEM QRS Duration 86 ms MUSE SYSTEM Q-T Interval 434 ms MUSE SYSTEM QTC Calculated (Bezet) 407 ms MUSE SYSTEM Calculated P Michie 46 degrees MUSE SYSTEM Calculated R Michie 19 degrees MUSE SYSTEM Calculated T Michie 36 degrees MUSE SYSTEM INTERPRETATION Sinus bradycardia with sinus arrhythmia Low voltage QRS Cannot rule out Anterior infarct (cited on or before 04-SEP-2021) Abnormal ECG When compared with ECG of 21-FEB-2020 12:54, No significant change was found I personally reviewed the tracing and edited the fellows interpretation Confirmed by fellow Toan Melendrez ([id number]) on 09/05/2021 4:23:18 PM Confirmed by MD GRADY ARMIN ([id number]) on 09/06/2021 8:58:05 AM MUSE SYSTEM 09/04/2021 9:24 AM EDT 09/06/2021 8:58 AM EDT Wayne Sanchez MD ECG ORDERABLES MUSE SYSTEM documented in this encounter Visit Diagnoses Diagnosis Status post left knee replacement Chronic pain of left knee Pain in joint, lower leg Left leg pain Pain in limb Saphenous neuralgia, right documented in this encounter Care Teams Air Cargo Specialist Relationship Specialty Start Date End Date Ja Ordaz MD [address] [place] [id number] PCP - General Emergency Medicine 03/11/21 documented as of this encounter
--- OUTSIDE RECORDS SUMMARY | 2024-04-05 16:26 | XMS_ITS | Encounter Summary ---
Author Organization [facility] Address [facility] [place] [address] Care Team Providers Care Customer Care Assistant Name Role Phone Ja Ordaz MD Primary Care Provider [phone] Reason for Visit * Auth/Cert Specialty Diagnoses / Procedures Referred By Cindy wooten Referred To Contact Diagnoses Postlaminectomy Syndrome Procedures PRO ELECTRONIC PUMP ANALYSIS W REPROGRAMMING AND REFILL BY /NAHID ELECTRONIC HERNANDEZ PROG., PUMP- DRUG INFUS; W/ REPROGRAM & REFILL REQ (WRVU 0.9) Referral ID Status Reason Start Date Expiration Date Visits Re quested Visits Authorized [id number] 1 1 Encounter Details Date Type Department Care Team (Late st Contact Info) Description 03/13/2021 1:00 PM EDT - 03/13/2021 2:00 PM [place]T [place] [phone] Karl Becker MD [facility] [place] [address] ELECTRONIC HERNANDEZ PROG., PUMP- DRUG INFUS; W/ [...] The following was performed: Procedure(s) (LRB): ELECTRONIC HERANNDEZ PROG., PUMP- DRUG INFUS; W/ REPROGRAM & [...] daily. 2 gummies daily=4MG NARCAN 4 mg/actuation Ronceverte, Non-Aerosol instill 1 spray in 1 NOSTRIL if needed for opioid overdose may re... (REFER TO PRESCRIPTION NOTES). 0 12/08/2018 multivitamin with minerals Tablet Take 1 tablet by mouth daily. morphine sulfate/D5W (MORPHINE IN D5W) 1 mg/mL Prefilled Pump Runnells Inject as directed. Has intrathecal pump with [...] hernia, with obstruction, without gangrene 06/24/2018 ??? 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 PRO COLONOSCOPY, DIAGNOSTIC 09/23/2011 COLONOSCOPY, DIAGNOSTIC performed by NIKKI MAYORGA at [facility] ENDOSCOPY ??? PRO ELECTRONIC PUMP ANALYSIS W REPROGRAMMING AND REFILL BY /NAHID N/A 03/30/2019 ELECTRONIC HERNANDEZ PROG., PUMP- DRUG INFUS; W/ REPROGRAM & REFILL REJohn MD (WRVU 0.9) performed by Karl Becker MD at [facility] PAIN MGMT MSO ??? PRO ELECTRONIC PUMP ANALYSIS W REPROGRAMMING AND REFILL BY /NAHID N/A 12/05/2019 ELECTRONIC HERNANDEZ PROG., PUMP- DRUG INFUS; W/ REPROGRAM & REFILL REQ (WRVU 0.9) performed by Karl Becker MD at [facility] PAIN MGMT MSO ??? PRO ELECTRONIC PUMP ANALYSIS W REPROGRAMMING AND REFILL BY /NAHID N/A 03/12/2020 ELECTRONIC HERNANDEZ PROG., PUMP- DRUG INFUS; W/ REPROGRAM & REFILL REQ (WRVU 0.9) performed by Karl Becker MD at [facility] PAIN MGMT MSO ??? PRO ELECTRONIC PUMP ANALYSIS W REPROGRAMMING AND REFILL BY /NAHID N/A 11/07/2020 ELECTRONIC HERNANDEZ PROG., PUMP- DRUG INFUS; W/ REPROGRAM & REFILL REQ (WRVU 0.9) performed by Karl Becker MD at [facility] PAIN MGMT MSO ??? PRO IMP SPINAL CANAL CATH Midline 03/23/2019 IMPLANT, REV OR REP TUNNELED INTRATHACAL OR EPIDURAL CATHETER (WRVU 6.05) performed by Karl Becker MD at [facility] OR ??? PRO INSERT/ REPLACE INFUSN PUMP, PROGRAMMABLE Right 03/23/2019 IMPLANT OR REPLACE PROG. PUMP-DRUG INFUSION (WRVU 5.6) [facility] ??? PRO LAP, CHOLECYSTECTOMY/GRAPH N/A 10/18/2016 LAPAROSCOPIC CHOLECYSTECTOMY WITH CHOLANGIOGRAM (WRVU 11.47) performed by Tasia Umaña MD at [facility] OR ??? PRO LAP, VENTRAL HERNIA REPAIR, INCARCERATED N/A 07/12/2018 LAPAROSCOPIC HERNIA, VENTRAL, INCARCERATED, W-WO MESH (WRVU 14.94) performed by Izzy Blanco MD at [facility] OR ??? PRO TOTAL KNEE ARTHROPLASTY Left 03/29/2020 TOTAL KNEE ARTHROPLASTY (WRVU 20.72) performed by Maykel Jacobson MD at [facility] OR There are no past surgical contraindications [...] free to contact mewith any questions. Sincerely, dEouard Olvera MD Pain Medicine Fellow [address] [phone] / [facility] CC: Carrie Yanes MD [facility] [address] [place] [address] documented in this encounter Miscellaneous Notes * Op Note - Karl Becker MD - 03/13/2021 1:18 PM EDT Pain Management Operative Note Patient Name: Etelvina Cuadra : [id number] MR#: [id number] Case Date: 03/13/2021 Surgeon: Surgeon(s) and Role: * Karl Becker MD - Primary * Edouard Olvera MD - Fellow Present on Admission: ??? Postlaminectomy syndrome of lumbar region Postoperative diagnosis: same Procedure(s) (LRB): ELECTRONIC HERNANDEZ PROG., PUMP- DRUG INFUS; W/ REPROGRAM & REFILL MILAGRO DAWSON (WRVU 0.9) (N/A) INTRATHECAL PUMP REFILL PROCEDURE NOTE WITH REPROGRAMMING WITH FLUOROSCOPY Primary Fitness Management Director: Karl Becker MD Gill Box Operator: Edouard Olvera MD Reason for Reprogramming: Refill Diagnosis: Chronic pain. Telemetry Pre-Refill Programming Reading: Drugs/Concentrations: Morphine - Preservative Free - 10 mg/ml Daily Dose: 2.001 mg/day Telemetry Post-Refill Programming Reading: Drugs/Concentrations: Morphine - Preservative Free - 10 mg/ml Daily Dose: 2.001 mg/day Brand/Compound: Compound. Barragan Lot #: [id number] Pump Capacity: 40 mL Computer predicted residual volume in pump: 4.4 ml Measured residual volume in pump: 6 ml Medication or Dose Changes: no Is dose change >30%? n/a Is concentration of drug different? no Empty syringe concentration verified by store clerk checker: yes If concentration of drug is [...] drapes were applied as provided with the [employer] refill kit. A 22 gauge Moraes non-coring [...] instilled into the pump according to the violent crimes detective's directions without difficulty. There was no evidence [...] AM EST Hospital Encounter [place] [address] Cadence Eric MD [facility] [place] [address] 04/06/2024 11:30 AM EST - 04/06/2024 12:50 PM EST Surgery [place] [address] Cadence Eric MD [facility] [place] [address] IMPLANT NEUROSTIMULATOR ELECTRODES, PERIPHERAL NERVE (WRVU 5.76) 04/14/2024 2:30 PM EST Office Visit [place] [address] Cadence Eric MD [facility] [place] [address] Scheduled Procedures Name Priority Associated Diagnoses Date/Ti [...] Priority Date/Time Associated Diagnosis Comments Anal Inf Hostage Negotiator W ReproRefil([id number]) 03/13/2021 1:11 PM EDT Postlaminectomy syndrome of lumbar region ELECTRONIC HERNANDEZ PROG., PUMP- DRUG INFUS; W/ REPROGRAM & REFILL REQ MD Routine 03/13/2021 12:40 PM EDT Postlaminectomy syndrome of lumbar region documented in this encounter Visit Diagnoses Diagnosis Postlaminectomy syndrome of lumbar region Postlaminectomy syndrome, lumbar region Postlaminectomy syndrome of lumbar region Postlaminectomy syndrome, lumbar region Postlaminectomy syndrome of lumbar region Postlaminectomy syndrome, lumbar region Saphenous neuralgia, right documented in this encounter Care Teams Customer Care Assistant Relationship Specialty Start Date End Date Ja Ordaz MD [address] [place] [address] PCP - General Emergency Medicine 03/11/21 documented as of this encounter
--- OUTSIDE RECORDS SUMMARY | 2024-04-05 16:26 | XMS_ITS | Encounter Summary ---
Author Organization [facility] Address [facility] [place] [address] Care Team Providers Care Insurance Special Agent Name Role Phone Ja Ordaz MD Primary Care Provider [phone] Reason for Referral * Physical Therapy (Routine) - Closed Specialty Diagnoses / Procedures Referred By Cindy wooten Referred To Contact Physical Therapy Diagnoses S/P TKR (total knee replacement), left Wayne Sanchez MD [facility] [place] [address] Referral ID Status Reason Start Date Expiration Date V isits Requested Visits Authorized [id number] Closed Evaluate and Treat 09/04/2021 03/03/2022 12 12 Reason for Visit * Reason Comments Follow-up CASE REQ 09/10/21 REVI DANIELE LEFT TKA Encounter Details Date Type Department Care Team (Late st Contact Info) Description 09/04/2021 11:30 AM EDT Office [place] [address] Clinic, Dr Sanchez Team None S/P TKR [...] Time Taken Comments Blood Pressure 114/64 09/04/2021 11:10 AM EDT Pulse 57 09/04/2021 11:10 AM EDT Temperature - - Respiratory Rate - - Oxygen Saturation 98% 09/04/2021 11:10 AM EDT Inhaled Oxygen Concentration - - Weight 108.4 kg (239 lb) 09/04/2021 11:10 AM EDT Height 152.4 cm (5') 09/04/2021 11:10 AM EDT Body Mass Index 46.68 09/04/2021 11:10 AM EDT documented in this encounter Progress Notes * Wayne Sanchez MD - 09/04/2021 11:30 AM EDT Arthroplasty History/Previous Orthopaedic Surgery: 1. Right medial unicompartmental knee replacement (likely cemented mobile beraing [place]) [facility] 2. Left TKA 03/29/2020 (Dr. Jacobson) This note is recorded by SONJA Sinha acting as a scribe for Dr. Vito Sanchez. PREOPERATIVE VISIT Interval History: Etelvina Cuadra is a pleasant 60 y.o. year old female being seen today to discuss a left total knee revision . Her history was once again discussed and is outlined in a previous note. They have reviewed their options and at this point are expressing a desire to proceed with surgery. Physical Exam: Exam is previously documented in a note and is essentially unchanged. Knee Exam: Range of motion 5-95o. Inspection of her skin on the operative side demonstrates No skin breakdown or open wounds. Significant Medical Comorbidities Patient Active Problem List Diagnosis Code ??? [...] VITALS: BP Readings from Last 1 Encounters: 09/04/21 114/64 Pulse Readings from Last 1 Encounters: 09/04/21 57 Height: 152.4 cm (5') Weight: 108.4 kg (239 lb) Body mass index is 46.68 kg/m??. Relevant Lab Studies Lab Results Component Value Date WBC 6.7 09/04/2021 HGB 12.5 09/04/2021 HCT 38.8 09/04/2021 PLATELET 348 09/04/2021 CREATININE 0.69 (L) 09/04/2021 BUN 10 09/04/2021 NA 140 09/04/2021 K 3.9 09/04/2021 CRP <3.0 06/05/2021 SEDRATE 17 06/05/2021 INR 1.0 09/04/2021 No results for input(s): HA1C in the last 7068 hours. No results for input(s): ALBUMIN in the last 168 hours. Estimated Creatinine Clearance: 98 mL/min (A) (based on SCr of 0.69 mg/dL (L)). TJA Clotting and Bleeding Assessment Genetic predisposition or history of DVT or PE: No (Father) Hypercoaguable state?: (anemic) GI bleed or history of hemorrhagic stroke within the past 2 years: No Patient on lifelong anticoagulant for other reasons: No Discharge anticoagulation plan: PEPPER Infection Prevention Patient demonstrated appropriate skin integrity/infection knowledge level after instructions provided: Yes Patient demonstrated appropriate dental prophylaxis knowledge level after instructions provided: Yes Patient demonstrated appropriate understanding of chlorhexideine wash and mupirocin ointment: Yes General Assessment Total joint preparedness for surgery: Force Online Patient understands when to call the office pre-op and post-op: Verbalizes understanding Assistive device(s) used pre-op: Straight cane, Standard walker Patient currently on narcotics: Yes Patient has narcotic agreement signed: Yes (see comment for prescriber information) Assessment and Plan: This is a pleasant 60 y.o. year-old female who presents for a preoperative appointment today for consideration of a left total knee revision . We had a discussion regarding the risks and benefits of surgery. I indicated that in my opinion, this is a treatment option most likely to restore a more normal, pain- free level of function and that we have exhausted reasonable non-operative alternatives. I discussed how I perform the procedure and all of their questions were answered. We discussed the risks of a total knee arthroplasty: Bleeding, infection, scar formation, dislocation, leg length inequality, persistent pain, stiffness, bursitis, failure/wear/loosening/breakage of implants, implant malposition, need for additional/future surgery, fracture, clot formation, embolus, stroke, nerve palsy, blood vessel injury, skin numbness, anesthetic and/or medical complications, . We reviewed options for postoperative DVT prophylaxis, based on AAOS guidelines. We discussed the pros and cons of different anticoagulants in terms of effectiveness and clot / embolus preventions vs. risks of bleeding and wound complications. We also reviewed their preferences regarding use of blood products and confirmed that while we would endeavor to minimize the risks of needing any transfusions, if circumstances were such that one ormore were indeed required, she would NOT refuse a blood transfusion. Etelvina Cuadra will be prescribed a prescription opioid for the treatment of acute post-operative pain related to orthopedic surgery. Etelvina Cuadra was advised to take the smallest dose possible to control their pain and as their pain improves to take smaller doses and increase the time between doses. Patient has a chronic opioid agreement signed with Dr. Ordaz, and post operative pain management plan has been discussed with the patient and prescriber. Dr. Ordaz would like our office to prescribe pain medication upon discharge from the hospital and then communicate with him for any further refillsneeded. The Acute Opioid Therapy Informed Consent form has been completed and sent to medical records for scanning to chart. No flowsheet data found. Opioid PDMP 09/04/2021 08/17/2020 04/03/2020 02/21/2020 06/24/2018 [place] PDMP Query Date 09/09/2021 08/20/2020 04/03/2020 02/21/202007/15/2018 [place] PDMP Query Date - 08/20/2020 04/03/2020 02/21/2020 07/15/2018 [place] PDMP Query Date - - 04/03/2020 02/21/2020 07/15/2018 In addition to this medication, non-opioid medications will be prescribed for adjunct treatment of their pain. Non-pharmacological treatment such as ice, elevation and activity modification was recommended as appropriate. Etelvina Cuadra was instructed to administer Mupirocin into the nares twice daily starting 5 days prior to surgical date. Additional instructions were given to her at the time the medication was dispensed. She was also given chlorhexidine soap to use the night before and the morning of surgery. We discussed with the patient the possible discharge scenarios. The patient will require VNA services post-op: no, patient will discharge home with outpatient PT scheduled within 3-5 days post operatively. Prep for Surgery Advance Directive: Does not have one (does not want to fill out) Recommend referral to Patient Financial Services: No Living arrangement: House Home layout: One level Number of stairs within home: 5 Who will provide post-op care and support: Who will provide transportation home: Patient's desired discharge disposition: Home The patient prefers two-wheeled walker to help with post-operative ambulation. The patient has a walker and will bring it to surgery. Recommendations from Dr. Siddiqui: Confer with APS for perioperative management with intrathecal pump, chronic opiate therapy. She must have her own Synthroid at HS Continue citalopram, albuterol, oxycodone, calcium with D, MVI with minerals and laxative Resume fenofibrate 48 hours after surgery We will plan to use IV TXA Planned Implant: Medacta Revsion Type and Screen: Yes Activity goals to return to after surgery: Walking Post operative orthopaedic anti-coagulation plan: PEPPER Study Chronic anti-coagulation: no Does patient have metal allergy? No Expedited Discharge Candidate?: NO We discussed using Celebrex while in house. Upon discharge we will give the patient Naprosyn to take for 6 weeks after surgery for post-operative pain management. Any remaining questions were solicited from the patient and answered. Ms. Cuadra wishes to proceed accordingly and informed consent was subsequently obtained for a left total knee revision . I have personally evaluated the patient and agree with the above note as recorded by SONJA Sinha MD 09/09/2021 documented in this encounter Plan of Treatment Upcoming Encounters Date Type Department Care Team (Latest Contact Info) Description 04/06/2024 11:30 AM EST Hospital Encounter [place] [address] Cadence Eric MD [facility] [place] [address] 04/06/2024 11:30 AM EST - 04/06/2024 12:50 PM EST Surgery [place] [address] Cadence Eric MD [facility] [place] [address] IMPLANT NEUROSTIMULATOR ELECTRODES, PERIPHERAL NERVE (WRVU 5.76) 04/14/2024 2:30 PM EST Office Visit [place] [address] Cadence Eric MD [facility] [place] [address] Scheduled Procedures Name Priority Associated Diagnoses Date/Ti [...] S/P TKR (total knee replacement), left Ordered: 09/04/2021 documented as of this encounter Visit Diagnoses Diagnosis S/P TKR (total knee replacement), left Saphenous neuralgia, right documented in this encounter Care Teams Insurance Special Agent Relationship Specialty Start Date End Date Ja Ordaz MD [address] [place] [id number] PCP - General Emergency Medicine 03/11/21 documented as of this encounter
--- OUTSIDE RECORDS SUMMARY | 2024-04-05 16:26 | XMS_ITS | Encounter Summary ---
Author Organization [facility] Address [facility] [place] [address] Care Team Providers Care [employer] Turb[employer] Room Operator Name Role Phone Ja Ordaz MD Primary Care Provider [phone] Reason for Visit * Auth/Cert Specialty Diagnoses / Procedures Referred By Cindy wooten Referred To Contact Diagnoses Postlaminectomy Syndrome Procedures PRO ELECTRONIC PUMP ANALYSIS W REPROGRAMMING AND REFILL BY MD/SOYBEAN GROWER ELECTRONIC HERNANDEZ PROG., PUMP- DRUG INFUS; W/ REPROGRAM & REFILL REQ (WRVU 0.9) Referral ID Status Reason Start Date Expiration Date Visits Re quested Visits Authorized [id number] 1 1 Encounter Details Date Type Department Care Team (Late st Contact Info) Description 03/13/2021 1:00 PM EDT Ancillary [place] [address] Karl Becker MD [facility] [place] [address] Pain Social History Tobacco Use Types Packs/Day Years [...] AM EST Hospital Encounter [place] [address] Cadence Eric MD [facility] [place] [address] 04/06/2024 11:30 AM EST - 04/06/2024 12:50 PM EST Surgery [place] [address] Cadence Eric MD [facility] [place] [address] IMPLANT NEUROSTIMULATOR ELECTRODES, PERIPHERAL NERVE (WRVU 5.76) 04/14/2024 2:30 PM EST Office Visit [place] [address] Cadence Eric MD [facility] [place] [address] Scheduled Procedures Name Priority Associated Diagnoses Date/Ti [...] STORAGE ONLY PAIN CLINIC C ARM Routine 03/13/2021 1:42 PM EDT Pain documented in this encounter Results * Film Library- Storage Only pain Clinic C-Arm (03/13/2021 1:42 PM EDT) Narrative [facility] - 03/13/2021 1:42 PM EDT See PACS for result report. Karl Becker MD IMG FILM LIBRARY ORD ERABLES [facility] [place], [place] documented in this encounter Visit Diagnoses Diagnosis Pain Generalized pain Saphenous neuralgia, right documented in this encounter Care Teams [employer] Generation Turbine Room Operator Relationship Specialty Start Date End Date Ja Ordaz MD [address] [place] [address] PCP - General Emergency Medicine 03/11/21 documented as of this encounter
--- OUTSIDE RECORDS SUMMARY | 2024-04-05 16:26 | XMS_ITS | Encounter Summary ---
Author Organization Formerly [facility] Address [facility] [place] [address] Care Team Providers Care Drum Stenciler Name Role Phone Ja Ordaz MD Primary Care Provider [phone] Reason for Visit * Auth/Cert Specialty Diagnoses [...] Expiration Date Visits Re quested Visits Authorized [id number] 1 1 Encounter Details Date Type Department Care Team (Late st Contact Info) Description 09/10/2021 2:07 PM EDT Anesthesia [place] [address] Royce Grady MD [facility] DR [place] [address] Viki Cerda MD [facility] [place] [address] Anesthesia Record Procedure Summary Procedure Name Responsible Anesthesiologist Anesthesia Start Time Anesthesia Stop Time @TOTAL KNEE REVISION ARTHROPLASTY, COMPLETE (WRVU 27.11) (Left: Knee) Royce Grady MD 09/10/21 1407 09/10/21 1740 Events Date Time Event Comment 09/10/2021 1249 1407 AN Verify 1407 Start 1407 An Start Data 1413 An Induction 1415 An Intubation 1417 Anesthesia Ready 1442 Procedure Start 1706 Handoff Intra-procedure anesthesia care was transferred after review of the patient's history, current anesthetic/surgical status and procedural plan, anticipated issues and expected post-operative course (including disposition.) Bailey Porter, [employer] MICA 1724 Extubation/LMA Out 1733 an stop data 1740 Recovery or ICU Handoff Loan ent care was transferred to the destination unit staff after review of the patient's medical history, current anesthetic/surgical status and plan, according to the Provider Handoff Checklist. 1740 Stop Meds Name Total BUpivacaine 0.5% 20 mL Midazolam 2 mg fentaNYL 100 mcg IV Lidocaine 50 mg Propofol 200 mg Rocuronium 50 mg Ondansetron 4 mg Dexamethasone 4 mg Neostigmine 4 mg Glycopyrrolate 0.4 mg ceFAZolin 2 g Tranexamic Acid 1,532 mg Propofol INF 414.63 mg Dexmedetomidine 8 mcg HYDROmorphone 2 mg/mL 1 mg Lactated Ringers 750 mL * Agents Name O2 Air N2O Sevoflurane (et) * Blood No blood administrations on file. Lines, Drains, and Airways Type Details Placement Removal Incision 09/10/21; 1443; Left , anterior; knee; vertical 09/10/21 1443 by Char Alexander RN Incision 03/29/20; 1608; knee ; vertical; 01/06/22 (LDA cleanup utility RA#[id number]); 1715 (LDA cleanup utility RA#[id number]) 03/29/20 1608 by Matthew Virgen RN 01/06/22 1715 by Debra Nice (RETIRED) Peripheral IV Line - Single Lumen 09/10/21; 1200; median cubital vein (antecubital fossa), left; [id number] catheter system; Anatomical Landmarks; US Not Used; 18 gauge; Sarai Horne RN; distraction, intradermal injection; 1; basilic vein (medial side of arm), left; (leaking); removed per policy/procedure, site care per policy/procedure, site symptomatic, catheter/device intact, catheter tip/device sent to lab for culture; 09/12/21; 230709/10/21 1200 by Myesha Barron RN 09/12/21 2308 by Nito Jensen RN ETT Mask Ventilation: Ea sy (1); ETT Type: Cuffed, Oral; ETT Size: 7 mm; Mac Blade: 3; Notes: Asleep, Pre-O2, Stylette; Attempts: 1; Laryngoscopy Grade: 1; ETT Placement Verified By: Auscultation, Capnometry, Visual; Secured at Teeth: 21 cm; Inserted by: Kati; Removal Date: 09/10/21; Removal Time: 17209/10/21 1415 by Ry Parikh CRNA 09/10/21 1728 by Bailey Porter CRNA documented in this encounter Social History Tobacco Use Types Packs/Day Years Used Date Smoking Tobacco: Former Cigarettes Q uit: 09/23/1991 Smokeless Tobacco: Never Alcohol Use Standard Drinks/Week Comments No 0 (1 standard drink = 0.6 oz pur e alcohol) Sex and Gender Information Value Date Recorded Sex Assigned at Not on file Gender Identity Not on file Sexual Orientation Not on file documented as of this encounter OR Notes * Anesthesia Postprocedure Evaluation - Royce Grady MD - 09/10/2021 5:53 PM EDT Department of Anesthesiology Post-procedure Note Patient: Etelvina Cuadra Procedure Summary Date: 09/10/21 Room / Location: [facility] OR [address] [place] [address] MAIN OR Anesthesia Start: 1407 Anesthesia Stop: 1739 Procedures: @TOTAL KNEE REVISION ARTHROPLASTY, COMPLETE (WRVU 27.11) (Left Knee) MODIFIER,GMK REVISION KNEE,MEDACTA (Left Knee) Diagnosis: Status post left knee replacement Chronic pain of left knee Left leg pain (LEFT failed total knee replacement, LEFT KNEE) Surgeons: Wayne Sanchez MD Responsible Provider: Royce Grady MD Anesthesia Type: general ASA Status: 3 All Anesthesia Providers: Anesthesiologist: Royce Grady MD [employer]: Bailey Porter CRNA; Ry Parikh CRNA Anesthesia Fellow: Tala Britton MD Vitals Value Taken Time BP 113/68 09/10/21 1745 Temp 36.3 ??C (97.3 ??F) 09/10/21 1735 Pulse 53 09/10/21 1752 Resp 13 09/10/21 1752 SpO2 100 % 09/10/21 1752 Pain Level Vitals shown include unvalidated device data. Patient Location: PACU/[facility] Level of Consciousness: Awake and Alert Pain Management: Pain Being Addressed PONV: None Cardiovascular Status: At Baseline and Hemodynamically Stable Respiratory Status: At Baseline and Room Air Postoperative Fluid Status: Intravascular EUvolemia Possible Anesthetic Complications: NONE apparent at time of evaluation Final Primary Anesthesia Type: General (The anesthetic type performed was the same as planned.) Comments: * Anesthesia Procedure Notes - Faizan Serrano - 09/10/2021 1:07 PM EDT Associated Order(s): Anesthesia Block Anesthesia Block Date/Time: 09/10/2021 1:00 PM Performed by: Faizan Serrano MD Authorized by: Royce Grady MD Start Time: 09/10/2021 1:00 PM End Time: 09/10/2021 1:05 PM Patient Location: Block Room Indication: Post-op Pain Control Post-op pain management at the request of surgeon. Block Type: Adductor canal block Laterality: Left Prep: Chlorhexidine, patient draped, gown and mask, cap, sterile gloves, hand hygeine Skin Anesthetic: Skin Anesthetic: Lidocaine 1% dose: 3 Block Technique: SonoPlex 21 10 cm Ultrasound Guided: YES and in-plane Ultrasound Image Saved Ultrasound guidance was used to identify the targeted neuronal structure. Ultrasound was also used to identify needle position and to identify tissue (bone, muscle, and blood vessels) to prevent inadvertent intraneural or intravascular needle placement and injection. The spread of local anesthetic was confirmed with live ultrasound imaging. Single-Shot: Single-shot Local Anesthetic Volume(s) Injected for Nerve Block: BUpivacaine 0.5% - Perineural 20 mL - 09/10/2021 1:05:00 PM Nerve Sensory/MotorTest: Events: no complications Staff: Resident/[employer] MICA:: Faizan Serrano MD Fellow:: Tala Britton MD Attending Physician:: Royce Grady MD * Anesthesia Preprocedure Evaluation - Tala Britton MD - 09/09/2021 8:45 AM EDT Images from the original note were not included. Pre-Anesthesia Evaluation for: Etelvina Cuadra a 60 y.o. female. Procedure(s): @TOTAL KNEE REVISION ARTHROPLASTY, COMPLETE (WRVU 27.11) MODIFIER,GMK REVISION KNEE,MEDACTA Patient Active Problem List Diagnosis Date Noted ??? S/P TKR (total knee replacement), left 09/03/2021 ??? Pain in joint, lower leg 10/26/2020 ??? Osteoarthritis of left knee 03/29/2020 ??? s/p Left Total Knee Arthroplasty - 03/29/2020 Dr. Jacobson 03/29/2020 ??? Presence of intrathecal pump 02/21/2020 ??? Anxiety and depression 02/21/2020 ??? HLD (hyperlipidemia) 02/21/2020 ??? Primary osteoarthritis of left knee 12/06/2019 ??? Morbid obesity with BMI of 45.0-49.9, adult 12/06/2019 ??? Morbid obesity 12/06/2019 ??? Chronic pain disorder 04/28/2017 ??? Chronic bilateral low back pain with bilateral sciatica 04/28/2017 ??? Chronic prescription opiate use 04/28/2017 ??? Allergic rhinitis 12/18/2015 ??? Acquired hypothyroidism 08/17/2012 ??? Postlaminectomy syndrome of lumbar region ??? Cervicalgia 03/10/2006 Past Medical History: Diagnosis Date ??? Allergic [...] hernia, with obstruction, without gangrene 06/24/2018 ??? custodial current use of opiate analgesic Oxycodone 10 [...] WITH BX performed by NIKKI MAYORGA at [facility] ENDOSCOPY ??? PRO COLONOSCOPY, DIAGNOSTIC 09/23/2011 COLONOSCOPY, DIAGNOSTIC performed by NIKKI MAYORGA at [facility] ENDOSCOPY ??? PRO ELECTRONIC PUMP ANALYSIS W REPROGRAMMING AND REFILL BY /NAHID N/A 03/30/2019 ELECTRONIC HERNANDEZ PROG., PUMP- DRUG INFUS; W/ REPROGRAM & REFILL REQ (WRVU 0.9) performed by Karl Becker MD at [facility] PAIN MGMT MSO ??? PRO ELECTRONIC PUMP ANALYSIS W REPROGRAMMING AND REFILL BY /NAHID N/A 12/05/2019 ELECTRONIC HERNANDEZ PROG., PUMP- DRUG INFUS; W/ REPROGRAM & REFILL REQ (WRVU 0.9) performed by Karl Becker MD at [facility] PAIN MGMT [facility]O ??? PRO ELECTRONIC PUMP ANALYSIS W REPROGRAMMING AND REFILL BY /NAHID N/A 03/12/2020 ELECTRONIC HERNANDEZ PROG., PUMP- DRUG INFUS; W/ REPROGRAM & REFILL REQ (WRVU 0.9) performed by Karl Becker MD at [facility] PAIN MGMT MSO ??? PRO ELECTRONIC PUMP ANALYSIS W REPROGRAMMING AND REFILL BY /NAHID N/A 11/07/2020 ELECTRONIC HERNANDEZ PROG., PUMP- DRUG INFUS; W/ REPROGRAM & REFILL REQ (WRVU 0.9) performed by Karl Becker MD at [facility] PAIN [facility]MT [facility]O ??? PRO ELECTRONIC PUMP ANALYSIS W REPROGRAMMING AND REFILL BY /NAHID N/A 03/13/2021 ELECTRONIC HERNANDEZ PROG., PUMP- DRUG INFUS; W/ REPROGRAM & REFILL REQ (WRVU 0.9) performed by Karl Becker MD at [facility] PAIN MGMT MSO ??? PRO IMP SPINAL CANAL CATH Midline 03/23/2019 IMPLANT, REV OR REP TUNNELED INTRATHACAL OR EPIDURAL CATHETER (WRVU 6.05) performed by Karl Becker MD at [facility] MAIN OR ??? PRO INSERT/ REPLACE INFUSN PUMP, PROGRAMMABLE Right 03/23/2019 IMPLANT OR REPLACE PROG. PUMP-DRUG INFUSION (WRVU 5.6) performed by Melani Darden MD at [facility] ??? PRO LAP, CHOLECYSTECTOMY/GRAPH N/A 10/18/2016 LAPAROSCOPIC CHOLECYSTECTOMY WITH CHOLANGIOGRAM (WRVU 11.47) performed by Tasia Umaña MD at [facility] MAIN OR ??? PRO LAP, SURG, REPAIR, VENTRAL, UMBILICAL, SPIGELIAN/EPIGASTRIC HERNIA; INCARCERATED/STRANGULATED N/A 07/12/2018 LAPAROSCOPIC HERNIA, VENTRAL, INCARCERATED, W-WO MESH (WRVU 14.94) performed by Izzy Blanco MD at [facility] MAIN OR ??? PRO TOTAL KNEE ARTHROPLASTY Left 03/29/2020 TOTAL KNEE ARTHROPLASTY (WRVU 20.72) performed by Maykel Jacobson MD at [facility] MAIN OR ??? XR JOINT ASPIRATION - LARGE JOINT LEFT Left 07/03/2021 XR Fluoro Guided Joint Aspiration Large Left 07/03/2021 Brisa Florez, PA [facility] RAD XRAY Social History Tobacco Use ??? Smoking status: Former Smoker Packs/day: 0.25 Types: Cigarettes Quit date: 09/23/1991 Years since quittin.9 ??? Smokeless tobacco: Never Used Substance Use Topics ??? Alcohol use: No Social History Substance and Sexual Activity Drug Use No Allergies Allergen Reactions ??? Peanut Anaphylaxis ??? [...] Tetracyclines Itching ??? Wool Itching and Rash Medications: MAR and/or home medications have been reviewed. Physical Exam: Preprocedure Vitals Current as of 09/09/21 0845 No BP, pulse, respiration, SpO2, or temperature recorded. Height: Weight: BMI: IBW: Airway Assessment: Mallampati: III TM distance: <3 FB Neck ROM: full Cardiovascular Assessment: system normal Pulmonary Assessment: pulmonary exam normal Dental Assessment: Misc Assessment: IV access: Peripheral line Last Filed Perioperative Cognitive Screening None Anesthesia Plan: ASA 3 general, with a(n) intravenous induction 60 y.o., 108kg (BMI 47) female presenting for left total knee revision PMH significant for morbid obesity, CAD (no cardiology notes in [facility], per prior anesthesia documentation: pt reports positive stress test but cath showed no disease), HLD, asthma (triggered by allergies), anxiety, depression, chronic back pain (s/p surgery,oxycodone 30mg, intrathecal pump 2mg/day), sciatica, OA and hypothyroidism (synthroid). Allergies: -- Peanut -- Anaphylaxis -- Peanut Oil -- Anaphylaxis -- Rice -- Anaphylaxis -- Wheat -- Anaphylaxis -- Wheat Bran -- Anaphylaxis -- Wheat Flour -- Anaphylaxis -- Wheat Germ Oil -- Anaphylaxis -- Wheat Starch -- Anaphylaxis -- Adhesive -- Hives -- Canine Protein Containing Products -- Itching -- Hazelnut -- Other (See Comments) -- Hydrocodone -- Other (See Comments) -- Bad headache -- Hydrocodone-Acetaminophen -- Other (See Comments) -- Bad headache -- Hydrocodone-Ibuprofen -- Other reaction(s): Unknown/Not Verified -- Rofecoxib -- Tetracyclines -- Itching -- Wool -- Itching and Rash Anesthetic hx: No reported prior complications with anesthesia Airway hx: mask with OPA (90mm), gr1 view with Goncalves 2/ MAC 3, 7.5 ETT EK09/06/21 sinus manuel with sinus arrythmia Lab Results Component Value Date HGB 12.5 09/04/2021 PLATELET 348 09/04/2021 INR 1.0 09/04/2021 NA 140 09/04/2021 K 3.9 09/04/2021 CREATININE 0.69 (L) 09/04/2021 09/04/21 0935 ABORH A Pos Intrathecal pump: Daily Dose: 2mg with mPTM 0.2mg q3hr PRN 5/day Anesthetic Plan: ASA 3 Standard ASA monitors Adequate PIV access GA given presence of intrathecal pump Preop adductor canal block Region - Other Informed Consent: Anesthetic plan and risks discussed with patient. Use of blood products discussed with patient who consented to blood products. Plan discussed with attending. Anesthesia Screening documented in this encounter Plan of Treatment Upcoming Encounters Date Type Department Care Team (Latest Contact Info) Description 04/06/2024 11:30 AM EST Hospital Encounter [place] [address] Cadence Eric MD [facility] [place] [address] 04/06/2024 11:30 AM EST - 04/06/2024 12:50 PM EST Surgery [place] [phone] Cadence Eric MD [facility] [place] [address] IMPLANT NEUROSTIMULATOR ELECTRODES, PERIPHERAL NERVE (WRVU 5.76) 04/14/2024 2:30 PM EST Office Visit [facility] [place] [address] Cadence Eric MD [facility] [place] [address] Scheduled Procedures Name Priority Associated Diagnoses Date/Ti [...] Procedure Name Priority Date/Time Associated Diagnosis Comments ANESTHESIA BLOCK Routine 09/10/2021 1:00 PM EDT documented in this encounter Results * Anesthesia Block (09/10/2021 1:00 PM EDT) Narrative Royce Grady MD - 09/10/2021 1:00 PM EDT Faizan Serrano MD ? 09/10/2021 ??1:08 PM Anesthesia Block Date/Time: 09/10/2021 1:00 PM Performed by: Faizan Serrano MD Authorized by: Royce Grady MD Start Time: ??09/10/2021 1:00 PM End Time: ??09/10/2021 1:05 PM Patient Location: ??Block Room Indication: ??Post-op Pain Control Post-op pain management at the request of surgeon. ?? Block Type: ??Adductor canal block Laterality: ??Left Prep: ??Chlorhexidine, patient draped, gown and mask, cap, sterile gloves, hand hygeine Skin Anesthetic: ??Skin Anesthetic: ??Lidocaine 1% ??dose: ??3 Block Technique: ?? SonoPlex ?? 21 ?? 10 cm ??Ultrasound Guided: ??YES and in-plane ??Ultrasound Image Saved ?Ultrasound guidance was used to identify the targeted neuronal structure. Ultrasound was also used to identify needle position and to identify tissue (bone, muscle, and blood vessels) to prevent inadvertent intraneural or intravascular needle placement and injection. The spread of local anesthetic was confirmed with live ultrasound imaging. ?Single-Shot: ??Single-shot Local Anesthetic Volume(s) Injected for Nerve Block: ?? BUpivacaine 0.5% - Perineural 20 mL - 09/10/2021 1:05:00 PM Nerve Sensory/MotorTest: ??Events: no complications ?? Staff: ??Resident/[employer] MICA:: ??Faizan Serrano MD ??Fellow:: ??Tala Britton MD ??Attending Physician:: ??Royce Grady MD Royce Grady MD [facility] documented in this encounter Visit Diagnoses Not on filedocumented in this encounter Administered Medications Inactive Administered Medications - up to 3 most recent administrations Medication Order MAR Action Action Date Dose Rate Site BUpivacaine (pf) (Marcaine) (5 mg/mL) 0.5% injection Perineural, Starting on Thu09/10/21 at 1305, Until Thu09/10/21 at 1305, Anesthesia Intra-op, Routine Given 09/10/2021 1:05 PM EDT 20 mLs ceFAZolin (Ancef) 1 g in dextrose 5% 50 mL infusion Intravenous, PRN, Starting on Thu09/10/21 at 1422, Until Tu09/10/21 at 1740, Administer over 30 Minutes, Anesthesia Intra-op Given 09/10/2021 2:22 PM EDT 2 g dexamethasone (Decadron) injection Intravenous, PRN, Starting on Thu09/10/21 at 1426, Until Thu09/10/21 at 1740, Anesthesia Intra-op, Routine Given 09/10/2021 2:26 PM EDT 4 mg dexmedetomidine (Precedex) (4 mcg/mL) bolus injection (Anesthsia) Intravenous, PRN, Starting on Thu09/10/21 at 1443, Until Tu09/10/21 at 1740, Anesthesia Intra-op, Routine Given 09/10/2021 2:43 PM EDT 8 mcg fentaNYL (pf) (50 mcg/mL) multi-dose injection Intravenous, PRN, Starting on Thu09/10/21 at 1413, Until Thu09/10/21 at 1740, Anesthesia Intra-op, Routine Given 09/10/2021 2:43 PM EDT 50 mcg Given 09/10/2021 2:13 PM EDT 50 mcg glycopyrrolate (Robinul) (0.2 mg/mL) multi-dose injection Intravenous, PRN, Starting on 09/10/21 at 1649, Until 09/10/21 at 1740, Anesthesia Intra-op, Routine Given 09/10/2021 4:49 PM EDT 0.4 mg HYDROmorphone (Dilaudid) (2 mg/mL) multi-dose injection solution Intravenous, PRN, Starting on e 09/10/21 at 1730, Until 09/10/21 at 1740, Anesthesia Intra-op, Routine Given 09/10/2021 5:36 PM EDT 0.5 mg Given 09/10/2021 5:30 PM EDT 0.5 mg lactated ringers infusion Intravenous, CONTINUOUS PRN, Starting on Thu09/10/21 at 1407, Until Thu09/10/21 at 1740, Anesthesia Intra-op New Bag 09/10/2021 2:07 PM EDT lidocaine (pf) (Xylocaine) (20 mg/mL) 2% injection syringe Intravenous, PRN, Starting on Thu09/10/21 at 1413, Until Tu09/10/21 at 1740, Anesthesia Intra-op, Routine Given 09/10/2021 2:13 PM EDT 50 mg midazolam (pf) (Versed) (1 mg/mL) multi-dose injection Intravenous, PRN, Starting on Thu09/10/21 at 1413, Until Thu09/10/21 at 1740, Anesthesia Intra-op, Routine Given 09/10/2021 2:13 PM EDT 2 mg neostigmine (Bloxiver) (1 mg/mL) injection Intravenous, PRN, Starting on Thu09/10/21 at 1649, Until Thu09/10/21 at 1740, Anesthesia Intra-op, Routine Given 09/10/2021 4:49 PM EDT 4 mg ondansetron (pf) (Zofran) (2 mg/mL) injection Intravenous, PRN, Starting on Thu09/10/21 at 1649, Until 09/10/21 at 1740, Anesthesia Intra-op, Routine Given 09/10/2021 4:49 PM EDT 4 mg propofoL (Diprivan) (10 mg/mL) infusion Intravenous, CONTINUOUS PRN, Starting on 09/10/21 at 1417, Until 09/10/21 at 1740, Anesthesia Intra-op, Routine New Bag 09/10/2021 2:17 PM EDT 25 mcg/kg/min 16.26 mL/hr propofoL (Diprivan) 10 mg/mL bolus injection (Anesthesia) Intravenous, PRN, Starting on 09/10/21 at 1413, Until 09/10/21 at 1740, Anesthesia Intra-op Given 09/10/2021 2:13 PM EDT 200 mg rocuronium (Zemuron) (10 mg/mL) multi-dose injection Intravenous, PRN, Starting on 09/10/21 at 1413, Until 09/10/21 at 1740, Anesthesia Intra-op, Routine Given 09/10/2021 2:13 PM EDT 50 mg tranexamic acid (Cyklokapron) (100 mg/mL) IV bolus Intravenous, Administer over 8 Hours, PRN, Starting on 09/10/21 at 1422, Until 09/10/21 at 1740, Anesthesia Intra-op, Routine Given 09/10/2021 2:22 PM EDT 1,532 mg documented in this encounter Care Teams Drum Stenciler Relationship Specialty Start Date End Date Ja Ordaz MD [address] [place] [address] PCP - General Emergency Medicine 03/11/21 documented as of this encounter
--- OUTSIDE RECORDS SUMMARY | 2024-04-05 16:26 | XMS_ITS | Encounter Summary ---
Author Organization [facility] [place] [address] Care Team Providers Care Meter Mechanic Name Role Phone Ja Ordaz MD Primary Care Provider [phone] Encounter Details Date Type Department Care Team (Late st Contact Info) Description 09/04/2021 Notes [place] [address] Sr Ilia Koehler Social History Tobacco Use Types Packs/Day Years [...] as of this encounter Progress Notes * Sr Ilia Koehler - 09/04/2021 10:36 AM EDT Study Title: Comparative Effectiveness of Pulmonary Embolism Prevention after hip and knee Replacement: Balancing Safety and Effectiveness. Principle Allocation Analyst: Dr. Sherrie Williamson #: [id number] Visit: Pre-op Date: 09/04/2021 Informed consent for the above entitled study was reviewed with subject -in detail. The details of the study, length of study, and risks were reviewed with subject. Upon review, subject verbalized adequate understanding of the protocol and signed the consent along with me. No study procedures were initiated prior to signing the consent. A copy was provided to subject, and the original consent will be kept with the study chart. Reviewed initial inclusion and exclusion, will continue to review medical history. Subject meets ALL of the inclusion criteria for entry into this clinical trial: 1) Males and females 21 years of age or older 2) Undergoing elective primary, revision, or second stage re-implantation total hip/knee replacement or uni-compartmental knee replacement or hip resurfacing arthoplasty 3) Patient has necessary mental capacity to participate and is able to comply with study protocol requirements 4) Patient is able to be randomized to at least two of the three study prophylaxis regimens 5) A test done on the day of surgery, or other criteria (i.e. Sex or reproductive potential) will be used to ensure the patient is not 6) Patent was approached, offered participation, and signed the consent form 7) Patient is willing to be randomized and participate in the study Subject does NOT meet any exclusion criteria for entry into this clinical trial: 1) Patients undergoing bilateral hip or knee replacement 2) Patient undergoing total hip or knee replacement who has been enrolled in this study for a priorhip or knee replacement. 3) Women who are or , as well as those of reproductive potential unless thereis a negative urine test on the day of surgery. 4) Patients on chronic (longer than the prior 6 months) anticoagulation other than with antiplatelet medications 5) Patient who is concurrently enrolled in another active interventional clinical trial testing a drug or intervention known or believed to interact with aspirin, warfarin, rivaroxaban. 6) Patients with documented gastrointestinal, cerebral, or other hemorrhage within 3 months of the operation 7) Patients with a known diagnosis of defective hemostasis and past history of clinical bleeding requiring transfusion and treatment. 8) Patients who have had an operative procedure involving the eye, ear, or central nervous system within one month 9) Patient with severe uncontrolled hypertension with systolic BP > 220mmHg and diastolic BP > 120mmHg 10) Patient with an absolute body weight of less than 41 kilograms (90.4 lbs) at baseline visit. 11) Vulnerable patient populations including prisoners and institutionalized individuals. Schedule of events were reviewed with the subject. Verbalized understanding of appointment dates and procedures, subject agrees to all. Encouraged to call with any questions/concerns. Subject was reminded that if randomized to Xarelto, they would need to have the prescription [facility]at the [facility] to receive the $75 wang. documented in this encounter Plan of Treatment Upcoming Encounters Date Type Department Care Team (Latest Contact Info) Description 04/06/2024 11:30 AM EST Hospital Encounter [place] [address] Cadence Eric MD [facility] [place] [address] 04/06/2024 11:30 AM EST - 04/06/2024 12:50 PM EST Surgery [place] [phone] Cadence Eric MD [facility] [place] [address] IMPLANT NEUROSTIMULATOR ELECTRODES, PERIPHERAL NERVE (WRVU 5.76) 04/14/2024 2:30 PM EST Office Visit [place] [address] Cadence Eric MD [facility] [place] [address] Scheduled Procedures Name Priority Associated Diagnoses Date/Ti [...] on filedocumented in this encounter Care Teams Meter Mechanic Relationship Specialty Start Date End Date Ja Ordaz MD [address] [place] [address] PCP - General Emergency Medicine 03/11/21 documented as of this encounter
--- OUTSIDE RECORDS SUMMARY | 2024-04-05 16:26 | XMS_ITS | Encounter Summary ---
Author Organization [facility] Address [facility] [place] [address] Care Team Providers Care Director Of Surgery Name Role Phone Ja Ordaz MD Primary Care Provider [phone] Encounter Details Date Type Department Care Team (Late st Contact Info) Description 09/03/2021 Telephone [place] [phone] Kraie Ardon Social History Tobacco Use Types Packs/Day Years [...] encounter Miscellaneous Notes * Telephone Encounter - Karie Ardon - 09/03/2021 11:20 AM EDT 1. ASK: TRAVEL ???Have you travelled outside of [place] ([place], [place], [place], [place], [place], [place]) in the past 14 days??? 2. ASK: EXPOSURE Have you been in contact with anyone suspected or confirmed to have COVID-19 in the past 14 days??? 3. ASK: SYMPTOMS Do you have any new or worsening symptoms on this list that are not related to another medical condition? Fever or chills ?? Cough ?? Shortness of breath or difficulty breathing ?? Fatigue ?? Muscle or body aches ?? Headache ?? Loss of taste or smell ?? Sore throat ?? Congestion or runny nose ?? Nausea or vomiting ?? Diarrhea If 'Yes' to any of the questions above Transfer patient to the Covid-19 Hotline Number ([phone]) for further instructions. If 'No' to all of the questions above Is this the first test for Covid 19 No If no, please list date of previous test, result, and type of test (Molecular, Antigen, Antibody orunknown): 04/01/2022, [facility] [place], Neg Resides in Nursing/senior living or other residential setting No Employee or Household Member of Employee No Healthcare Worker No Telephone call placed/received to schedule Covid 19 testing with patient. Ordering provider: Dr. Wayne Sanchez Testing Facility: [facility] Date of Testin09/07/2021 Time of Testin:00am Symptoms: No Give directions to testing facility. All passengers in the vehicle MUST wear a mask. Leave dogs/pets at home or have them crated/behind a net. documented in this encounter Plan of Treatment Upcoming Encounters Date Type Department Care Team (Latest Contact Info) Description 04/06/2024 11:30 AM EST Hospital Encounter [place] [address] Cadence Eric MD [facility] [place] [address] 04/06/2024 11:30 AM EST - 04/06/2024 12:50 PM EST Surgery [place] [phone] Cadence Eric MD [facility] [place] [address] IMPLANT NEUROSTIMULATOR ELECTRODES, PERIPHERAL NERVE (WRVU 5.76) 04/14/2024 2:30 PM EST Office Visit [facility] [place] [address] Cadence Eric MD [facility] [place] [address] Scheduled Procedures Name Priority Associated Diagnoses Date/Ti [...] in this encounter Care Teams Director Of Surgery Relationship Specialty Start Date End Date Ja Ordaz MD [address] [place] [address] PCP - General Emergency Medicine 03/11/21 documented as of this encounter
--- OUTSIDE RECORDS SUMMARY | 2024-04-05 16:26 | XMS_ITS | Encounter Summary ---
Author Organization [facility] [place] [address] Care Team Providers Care Foot Orthopedist Name Role Phone Ja Ordaz MD Primary Care Provider [phone] Reason for Visit * Reason Onset Date Comments Questions 07/08/2021 Encounter Details Date Type Department Care Team (Late Contact Info) Description 07/08/2021 Telephone [place] [phone] Clinic, Dr Sanchez Team None Questions Social [...] encounter Miscellaneous Notes * Telephone Encounter - Dora Lindsay - 07/08/2021 11:32 AM EST Who is calling: Etelvina What is the question: Patient is calling as she was unable to do the aspiration of her Left knee On07/03/21 as the pain was too much. She is still in a great deal of pain, stating she can barely walk. She is still is planning on doing the bone scan on 07/09/21. Best number to reach the caller: [phone] documented in this encounter Plan of Treatment Upcoming Encounters Date Type Department Care Team (Latest Contact Info) Description 04/06/2024 11:30 AM EST Hospital Encounter [place]patient [place] [address] Cadence Eric MD [facility] [place] [address] 04/06/2024 11:30 AM EST - 04/06/2024 12:50 PM EST Surgery [place] [phone] Cadence Eric MD [facility] [place] [address] IMPLANT NEUROSTIMULATOR ELECTRODES, PERIPHERAL NERVE (WRVU 5.76) 04/14/2024 2:30 PM EST Office Visit [place] [address] Cadence Eric MD [facility] [place] [address] Scheduled Procedures Name Priority Associated Diagnoses Date/Ti [...] on filedocumented in this encounter Care Teams Foot Orthopedist Relationship Specialty Start Date End Date Ja Ordaz MD [address] [place] [address] PCP - General Emergency Medicine 03/11/21 documented as of this encounter
--- OUTSIDE RECORDS SUMMARY | 2024-04-05 16:26 | XMS_ITS | Encounter Summary ---
Author Organization [facility] Address [facility] [place] [address] Care Team Providers Care Web Manager Name Role Phone Ja Ordaz MD Primary Care Provider [phone] Reason for Referral * Diagnostic Test (Routine) - Closed Specialty Diagnoses / Procedures Referred By Cindy wooten Referred To Contact Radiology Diagnoses Primary osteoarthritis of left knee Procedures NM Bone Scan 3 Phase Leanna Yañez MD [facility] [place] [address] [place] [address] Referral ID Status Reason Start Date Expiration Date V isits Requested Visits Authorized [id number] Closed Specialty Service Requested 06/27/2021 05/10/2022 1 1 Reason for Visit * Reason Comments Follow-up DOS:03/29/20 left tk a (JEVSEVAR) Encounter Details Date Type Department Care Team (Latest Contact Info) Description 06/05/2021 2:00 PM EST Office [place] [address] Clinic, Dr Darden Team None Primary osteoarthritis of left knee; Chronic pain of left knee Social History Tobacco Use [...] Sign Reading Time Taken Comments Blood Pressure 129/50 06/05/2021 1:48 PM EST Pulse 68 06/05/2021 1:48 PM EST Temperature - - Respiratory Rate - - Oxygen Saturation - - Inhaled Oxygen Concentration - - Weight 102.1 kg (225 lb) 06/05/2021 1:48 PM EST Height 152.4 cm (5') 06/05/2021 1:48 PM EST Body Mass Index 43.94 06/05/2021 1:48 PM EST documented in this encounter Progress Notes * Leanna Yañez MD - 06/05/2021 2:00 PM EST Images from the original note were not included. Department of Orthopaedics Division of Adult Joint Reconstructive Surgery CHIEF COMPLAINT: Chief Complaint Patient presents with ??? Follow-up DOS:03/29/20 left tka (JAX) ARTHROPLASTY HISTORY/PREVIOUS KNEE SURGERY: 1. Right medial unicompartmental knee replacement (likely cemented mobile beraing [place]) [facility] 2011 2. Left TKA 03/29/2020 (Dr. Jacobson) Etelvina was referred from None None I.D.: Etelvina Cuadra is a 60 y.o. year old female being seen today to discuss her left knee which is s/p L TKA about 1 year ago. Her history and physical exam were reviewed in detail. Patient endorses left knee pain following her total knee replacement. She notes that she has never felt the need to be without pain since surgery. She also endorses significant swelling about the knee particularly related to activities. She denies any issues with healing her incision. She denies any erythema. She does feel that the knee is frequently warm. Additionally notes that the knee feels unstable. She does not ambulate significantly except for occasionally to the grocery store. She is a cane when ambulating. In evaluation of the patient's chart, she did have a dental abscess in August of this year. Labs were obtained at that time which were reassuring. She was put on antibiotics before undergoing her dental procedure. She takes 10 mg oxycodone 3 times daily and has a morphine pump for back pain. With respect to the patient's right knee, she notes that it occasionally has some clicking. At thispoint it is not significantly painful compared to her right side. QUESTIONNAIRE RESPONSES: General Health, Prior Treatments, PreExisting Condition, Health Habits, About You 06/05/2021 PROMIS-10 General Health Good PROMIS-10 Quality of Life Fair PROMIS-10 Physical Health Fair PROMIS-10 Mental Health Excellent PROMIS-10 Social Activity Good PROMIS-10 Everyday Activities A little PROMIS-10 Pain 9 PROMIS-10 Fatigue Mild PROMIS-10 Social Roles Very Good PROMIS-10 Anxious or Depressed Never PROMIS PHYSICAL SCORE (range 16-68) 34.9 PROMIS MENTAL SCORE (range 21-68) 50.8 Treatments Tried - KOOS JR Scores 15.94 TKA Grade 0 Alzheimers or dementia - Cirrohosis or liver [...] Household Income - # People Supported - [place], , - Race - Health Literacy - [...] Other reaction(s): Unknown/Not Verified ??? Rofecoxib ??? Tetracycline Itching ??? Tetracyclines Itching ??? Wool Itching and Rash SOCIAL HISTORY: reports that she quit smoking about 29 years ago. Her smoking use included cigarettes. [...] ??? Pain in joint, lower leg M25.569 VITALS: BP Readings from Last 1 Encounters: 06/05/21 129/50 Pulse Readings from Last 1 Encounters: 06/05/21 68 Height: 152.4 cm (5') Weight: 102.1 kg (225 lb) Body mass index is 43.94 kg/m??. PHYSICAL EXAM: Constitution: Etelvina sits in the clinic today alert, appears stated age and cooperative. The patient is alert and oriented. I have made the following determinations: Knee Exam: Left Prior surgery on this joint: Yes Knee ROM: Extension:5 Flexion: 95 Alignment: 0-4 degrees Varus Stability: Significant pain with any palpation or movement of the knee. Most pain medially with valgus stress of the knee. Difficult to evaluate whether there is significant gapping although there does appear to be an endpoint with both varus and valgus stress. Extension La degrees or less Patella Tracking: Normal Skin Integrity: Normal at anterior knee with incision well-healed. No erythema or edema. Throughout the lower extremity there is some evidence of stasis especially at the distal leg. Some varicose veins present in the foot. Overall the leg is somewhat more edematous than the right side. Pulses Palpable: Left PT:Yes Left DP:Yes Motor/Sensory: Distal Motor:Normal Distal Sensory: Normal Quadriceps Strength:4 IMAGING: X-rays of the bilateral knees demonstrates right unicompartmental arthroplasty in place. On the left side cemented total knee arthroplasty in place without evidence of acute change in alignment or other complication. No fracture or dislocation noted. ASSESSMENT AND PLAN: Ms. Cuadra is a 60 y.o. year old female with painful left total knee arthroplasty now approximately 1.25 years status post surgery. We had a long discussion with patient regarding her imaging as well as clinical exam. On imaging there is no acute abnormality to suggest failure of her implants however we did discuss that it is not uncommon to continue to have pain despite normal x-rays after TKA. Her exam with significant pain with ROM as well as edema in the leg certainly raises suspicion for prosthetic joint infection. Therefore we will obtain labs including ESR and CRP. We have ordered a joint aspiration to include sending the fluid for cell count, culture, Synovasure. Additionally, we have ordered a three-phase nuclear medicine bone scan to evaluate for implant loosening or other evidence of infection. Overall we did discuss with the patient regarding her presentation of continued pain after total knee arthroplasty. In evaluation of her preoperative scores, she is actually somewhat improved with respect to her KOOS and PCS. That being said, she notes significant pain and subjective feels that sheis worse than prior to surgery. Her exam warrants complete work-up of infection or evidence of loosening. The above tests have been ordered and we will plan to see the patient back when these have been completed. All questions were answered. Leanna Yañez MD [facility] Orthopaedic Surgery Orthopaedic Surgery PGY-5 * Lydia Darden MD - 06/05/2021 2:00 PM EST I saw and evaluated the patient. I was integral in formulating the plan as outlined. LYDIA DARDEN MD documented in this encounter Plan of Treatment Upcoming Encounters Date Type Department Care Team (Latest Contact Info) Description 04/06/2024 11:30 AM EST Hospital Encounter [place] [address] Cadence Eric MD [facility] [place] [address] 04/06/2024 11:30 AM EST - 04/06/2024 12:50 PM EST Surgery [place] [address] Cadence Eric MD [facility] [place] [address] IMPLANT NEUROSTIMULATOR ELECTRODES, PERIPHERAL NERVE (WRVU 5.76) 04/14/2024 2:30 PM EST Office Visit [facility] [place] [address] Cadence Eric MD [facility] [place] [address] Scheduled Procedures Name Priority Associated Diagnoses Date/Ti [...] or infection. Preliminary report signed by: Boone Clive at 07/09/2021 2:37 PM I have personally [...] who have questions please contact the health resident care associate that requested your imaging first. ? Electronically signed by: Jesus Balbuena MD, [facility] ([phone]), at 07/09/2021 3:08 PM Narrative 07/09/2021 3:08 PM EST EXAMINATION: NM [...] patients who have questions please contactthe health resident care associate that requested your imaging first. Electronically signed by: Jesus Balbuena MD, [facility]([phone]), at 07/09/2021 3:08 PM Lydia Darden MD [facility] ORDERABLES * XR Fluoro Guided Joint Aspiration Large [...] who have questions please contact the health resident care associate that requested your imaging first. ? Electronically signed by: Yanni Crowder MD, [facility] ([phone]), at 07/03/2021 3:49 PM Narrative 07/03/2021 3:49 PM EST Attempted left knee JOINT ASPIRATION UNDER FLUOROSCOPY CLINICAL HISTORY: left knee pain in setting of left TKA, please aspirate and send for cell ct, culture, synovasure TECHNIQUE: After an extensive conversation with the patient regarding risks and benefits, oral and written consent were obtained. A pre- procedural time-out was performed as per [facility] protocol. The patient was placed [...] A pre- procedural time-out wasperformed as per [facility] protocol. The patient was placed supine with the left knee bend to [id number] degrees of flexion on the fluoroscopic table. [...] provider's interpretationand agree with the findings, Yanni Crodwer MD at 07/03/2021 3:49 PM Thank you for letting us participate in the care of this patient. If youare a health care provider and have any questions regarding this report,please contact the number below. For patients who have questions please contactthe health resident care associate that requested your imaging first. Lydia Darden MD IMG FLUORO ORDERABLE S * CRP, acute inflammation (06/05/2021 3:19 PM EST) C-Reactive Protein <3.0 <=4.9 mg/L [facility] Blood 06/05/2021 3:19 PM EST 06/05/2021 3:47 PM EST Narrative Resulting Agency Comment Spec In Lab Lydia Darden MD CHEMISTRY ORDERABLES Performing Organization Address City/[facility]/ZIP Co de Phone Number [facility] [place] [address] * Sedimentation rate (06/05/2021 3:19 PM EST) Sedimentation Rate Automated 17 2 - 39 mm/hr [facility] Comment: Effective April 20, 2019 new capillary photometric technology has resulted in a change in reference ranges. It is recommended that each ESR result be reviewed with its own age appropriate reference range. Blood 06/05/2021 3:19 PM EST 06/05/2021 3:47 PM EST Narrative Resulting Agency Comment Spec In Lab Lydia Darden MD HEMATOLOGY ORDERABLE S Performing Organization Address [facility] Co de Phone Number [facility] [place] [address] documented in this encounter Visit Diagnoses Diagnosis Primary osteoarthritis of left knee Primary localized osteoarthrosis, lower leg Chronic pain of left knee Pain in joint, lower leg Primary osteoarthritis of left knee Primary localized osteoarthrosis, lower leg Primary osteoarthritis of left knee Primary localized osteoarthrosis, lower leg Saphenous neuralgia, right documented in this encounter Care Teams Web Manager Relationship Specialty Start Date End Date Ja Ordaz MD [address] [place] [address] PCP - General Emergency Medicine 03/11/21 documented as of this encounter
--- OUTSIDE RECORDS SUMMARY | 2024-04-05 16:26 | XMS_ITS | Encounter Summary ---
Author Organization [facility] Address [facility] [place] [address] Care Team Providers Care Rn Hospital Name Role Phone Ja Ordaz MD Primary Care Provider [phone] Reason for Visit * Reason Onset Date Comments Pre Procedure Call 09/03/2021 Encounter Details Date Type Department Care Team (Late st Contact Info) Description 09/03/2021 Telephone [place] [phone] Clinic, Dr Sanchez Team None Pre Procedure Call Social History Tobacco Use Types [...] * Telephone Encounter - Tiffanie Ochoa - 09/03/2021 11:32 AM EDT Call Center Call Note Provider: ADELSO DOS: 09/10/21 Procedure: TKA Surgeon: ADELSO Reason for call: Etelvina wanted to remind the team she needs Dr. Sanchez to order her SYNTHROID so thatthe pharmacy has it on hand for her to take while she is post op. Please call back to confirm this has been done. FYI: HAS to be Synthorid, not Levothyroxine. Last time she was in, they took away her Synthroid pills, and she did not have them for her time inhospital as our pharmacy does not stock them, and then they did not give them back to her so she went without for too long. Chart reviewed to answer questions: Yes Team message being sent to: April PH: [phone] documented in this encounter Plan of Treatment Upcoming Encounters Date Type Department Care Team (Latest Contact Info) Description 04/06/2024 11:30 AM EST Hospital Encounter Outpatient [place] [address] Cadence Eric MD [facility] [place] [address] 04/06/2024 11:30 AM EST - 04/06/2024 12:50 PM EST Surgery Outpatient [place] [address] Cadence Eric MD [facility] [place] [address] IMPLANT NEUROSTIMULATOR ELECTRODES, PERIPHERAL NERVE (WRVU 5.76) 04/14/2024 2:30 PM EST Office Visit [facility] [place] [address] Cadence Eric MD [facility] [place] [address] Scheduled Procedures Name Priority Associated Diagnoses Date/Ti [...] on filedocumented in this encounter Care Teams Rn Hospital Relationship Specialty Start Date End Date Ja Ordaz MD [address] [place] [address] PCP - General Emergency Medicine 03/11/21 documented as of this encounter
--- OUTSIDE RECORDS SUMMARY | 2024-04-05 16:26 | XMS_ITS | Encounter Summary ---
Author Organization [facility] Address [facility] [place] [address] Care Team Providers Care Syrup Mixer Name Role Phone Ja Ordaz MD Primary Care Provider [phone] Encounter Details Date Type Department Care Team (Latest Contact Info) Description 09/07/2021 11:00 AM EDT Public Health [place] [phone] Encounter for preprocedure screening laboratory testing for COVID-19 Social History Tobacco Use Types Packs/Day Years [...] AM EST Hospital Encounter Outpatient [place] [address] Cadence Eric MD [facility] [place] [address] 04/06/2024 11:30 AM EST - 04/06/2024 12:50 PM EST Surgery Outpatient [place] [phone] Cadence Eric MD [facility] [place] [address] IMPLANT NEUROSTIMULATOR ELECTRODES, PERIPHERAL NERVE (WRVU 5.76) 04/14/2024 2:30 PM EST Office Visit [facility] [place] [address] Cadence Eric MD [facility] [place] [address] Scheduled Procedures Name Priority Associated Diagnoses Date/Ti [...] Procedure Name Priority Date/Time Associated Diagnosis Comments COVID-19 PCR Routine 09/07/2021 2:53 PM EDT Encounter for preprocedure screening laboratory testing for COVID-19 documented in this encounter Results * COVID-19 PCR (09/07/2021 2:53 PM EDT) SARS-CoV-2 RNA Not Detected Not Detected [facility] Comment: This result should be [...] diagnosis of COVID-19 is performed using the [employer] m SARS-CoV-2 Assay as authorized by the FDA Emergency Use Authorization (EUA). This EUA assay is intended for In-vitro Diagnostic (IVD) use with respiratory specimens such as nasopharyngeal swabs collected from individuals during the acute phase of infection. This assay is performed based on the instructions for use provided by [employer] and additional guidance provided by CDC and FDA. Testing is performed in the [facility] Laboratory within the Department of Pathology and Laboratory Medicine at [facility], certified under the Clinical Laboratory Improvement [...] fact sheets at the following FDA website: https://www.fda.gov/medical-devices/ioyuqwyyghd-pmalurh-9199-mbayz-43-xrfkvszzv- use-a gdnlywrndvzkg-agmmjsy-lrfwrjz/cxqnl-frpzqrccbur-rxly SARS-CoV-2 RNA Source MANAGER SAFE Swab [facility] Nasopharyngeal Swab 09/08/19 2:53 PM EDT 09/07/2021 2:53 PM EDT Comment:Symptoms->Asymptomat ic Narrative Resulting Agency Comment Spec In Lab Wayne Sanchez MD MOLECULAR ORDERABLES Performing Organization Address City/State/[facility] Co de Phone Number [facility] [place] [address] documented in this encounter Visit Diagnoses Diagnosis Encounter for preprocedure screening laboratory testing for COVID-19 Saphenous neuralgia, right documented in this encounter Care Teams Syrup Mixer Relationship Specialty Start Date End Date Ja Ordaz MD [address] [place] [address] PCP - General Emergency Medicine 03/11/21 documented as of this encounter
--- OUTSIDE RECORDS SUMMARY | 2024-04-05 16:26 | XMS_ITS | Encounter Summary ---
Author Organization [facility] Address [facility] [place] [address] Care Team Providers Care Conveyor Installer Name Role Phone Ja Ordaz MD Primary Care Provider [phone] Encounter Details Date Type Department Care Team (Late st Contact Info) Description 03/14/2021 External Results [facility] [place] [phone] Karl Becker MD [facility] [place] [address] Social History Tobacco Use Types Packs/Day Years [...] AM EST Hospital Encounter Outpatient [place] [phone] Cadence Eric MD [facility] [place] [address] 04/06/2024 11:30 AM EST - 04/06/2024 12:50 PM EST Surgery [place]patient [place] [address] Cadence Eric MD [facility] [place] [address] IMPLANT NEUROSTIMULATOR ELECTRODES, PERIPHERAL NERVE (WRVU 5.76) 04/14/2024 2:30 PM EST Office Visit [facility] [place] [address] Cadence Eric MD [facility] [place] [address] Scheduled Procedures Name Priority Associated Diagnoses Date/Ti [...] Associated Diagnosis Comments INTRATHECAL PUMP REFILL Routine 03/13/2021 documented in this encounter Results * INTRATHECAL PUMP REFILL (03/13/2021) Karl Becker MD PROCEDURE/MINOR SURG ICAL ORDERABLES documented in this encounter Visit Diagnoses Not on filedocumented in this encounter Care Teams Conveyor Installer Relationship Specialty Start Date End Date Ja Ordaz MD [address] [place] [address] PCP - General Emergency Medicine 03/11/21 documented as of this encounter
--- OUTSIDE RECORDS SUMMARY | 2024-04-05 16:26 | XMS_ITS | Encounter Summary ---
Author Organization [facility] [place] [address] Care Team Providers Care Film Editor Supervisor Name Role Phone Ja Ordaz MD Primary Care Provider Encounter Details Date Type Department Care Team (Late st Contact Info) Description 09/05/2021 Notes [place] [address] Lexie Sinclair Social History Tobacco Use Types [...] encounter Progress Notes * Lexie Sinclair - 09/05/2021 3:44 PM EDT Study Title: Comparative Effectiveness of Pulmonary Embolism Prevention after hip and knee Replacement: Balancing Safety and Effectiveness. Principle Thread Inspector: Dr. Sherrie Williamson #: [id number] Subject #: [id number] Subject has been randomized to arm B for the above named clinical trial. Request sent to provider to place orders for Arm B (Warfarin) drug to be administered pre-op. Note submitted by Lexie Sinclair Research Trolley Car Mechanic. documented in this encounter Plan of Treatment Upcoming Encounters Date Type Department Care Team (Latest Contact Info) Description 04/06/2024 11:30 AM EST Hospital Encounter [place] [address] Cadence Eric MD [facility] [place] [address] 04/06/2024 11:30 AM EST - 04/06/2024 12:50 PM EST Surgery [place] [address] Cadence Eric MD [facility] [place] [address] IMPLANT NEUROSTIMULATOR ELECTRODES, PERIPHERAL NERVE (WRVU 5.76) 04/14/2024 2:30 PM EST Office Visit [facility] [place] [address] Cadence Eric MD [facility] [place] [address] Scheduled Procedures Name Priority Associated Diagnoses Date/Ti [...] on filedocumented in this encounter Care Teams Film Editor Supervisor Relationship Specialty Start Date End Date Ja Ordaz MD [address] [place] [address] PCP - General Emergency Medicine 03/11/21 documented as of this encounter
--- OUTSIDE RECORDS SUMMARY | 2024-04-05 16:26 | XMS_ITS | Encounter Summary ---
Author Organization [facility] [place] [address] Care Team Providers Care Print Line Feeder Name Role Phone Ja Ordaz MD Primary Care Provider [phone] Encounter Details Date Type Department Care Team (Latest Contact Info) Description 09/04/2021 9:00 AM EDT Clinical Support Same Day at [facility] [place] [phone] Status post left knee replacement; Chronic pain [...] Time Taken Comments Blood Pressure 114/64 09/04/2021 8:30 AM EDT Pulse 57 09/04/2021 8:30 AM EDT Temperature - - Respiratory Rate - - Oxygen Saturation 98% 09/04/2021 8:30 AM EDT Inhaled Oxygen Concentration - - Weight 108.7 kg (239 lb 9.6 oz) 09/04/2021 8:30 AM EDT Height 152.4 cm (5') 09/04/2021 8:30 AM EDT Body Mass Index 46.79 09/04/2021 8:30 AM EDT documented in this encounter Progress Notes * Shira Lockhart RN - 09/04/2021 9:00 AM EDT Abbreviated Anesthesia questionnaire reviewed with patient and Josh while in [facility]operative [facility]. Pt has tolerated anesthesia in the past. Pre- operative instruction booklet reviewed. Patient verbalizes a good understanding of all information reviewed. PLAN: Testing: Type and screen, other labs, EKG Special medication instructions: Clearfast 1 bottle given to patient with instructions to drink 3 hours prior to surgery. Procedure date: 09-10-21 Dr Sanchez Pre Surgery Covid screening: Were you diagnosed with COVID 19 or had symptoms consistent with COVID19 within the last 3 months. No Pt has intrathecal morphine pump managed by the Pain clinic -[id number] Pt reports she needs Brand name Synthroid while inpt documented in this encounter Plan of Treatment Upcoming Encounters Date Type Department Care Team (Latest Contact Info) Description 04/06/2024 11:30 AM EST Hospital Encounter Outpatient [place] [address] Cadence Eric MD [facility] [place] [address] 04/06/2024 11:30 AM EST - 04/06/2024 12:50 PM EST Surgery Outpatient [place] [address] Cadence Eric MD [facility] [place] [address] IMPLANT NEUROSTIMULATOR ELECTRODES, PERIPHERAL NERVE (WRVU 5.76) 04/14/2024 2:30 PM EST Office Visit [facility] [place] [address] Cadence Eric MD [facility] [place] [address] Scheduled Procedures Name Priority Associated Diagnoses Date/Ti [...] Procedure Name Priority Date/Time Associated Diagnosis Comments EKG 12-LEAD Routine 09/04/2021 9:24 AM EDT Status post left knee replacement Chronic pain of left knee Left leg pain documented in this encounter Results * EKG 12 Lead (09/04/2021 9:24 AM EDT) Ventricular rate 53 BPM MUSE SYSTEM Atrial Rate 53 BPM MUSE SYSTEM P-R Interval 202 ms MUSE SYSTEM QRS Duration 86 ms MUSE SYSTEM Q-T Interval 434 ms MUSE SYSTEM QTC Calculated (Bezet) 407 ms MUSE SYSTEM Calculated P [place] 46 degrees MUSE SYSTEM Calculated R [place] 19 degrees MUSE SYSTEM Calculated T [place] 36 degrees MUSE SYSTEM INTERPRETATION Sinus bradycardia with sinus arrhythmia Low voltage QRS Cannot rule out Anterior infarct (cited on or before 04-SEP-2021) Abnormal ECG When compared with ECG of 21-FEB-2020 12:54, No significant change was found I personally reviewed the tracing and edited the fellows interpretation Confirmed by fellow Toan Melendrez ([id number]) on 09/05/2021 4:23:18 PM Confirmed by MD [...] right documented in this encounter Care Teams Print Line Feeder Relationship Specialty Start Date End Date Ja Ordaz MD [address] [place] [id number] PCP - General Emergency Medicine 03/11/21 documented as of this encounter
--- OUTSIDE RECORDS SUMMARY | 2024-04-05 16:26 | XMS_ITS | Encounter Summary ---
Author Organization [facility] Address [facility] [place] [address] Care Team Providers Care Phonograph Mechanic Name Role Phone Ja Ordaz MD Primary Care Provider [phone] Encounter Details Date Type Department Care Team (Latest Contact Info) Description 06/05/2021 12:54 PM EST - 06/05/2021 11:[address] [facility] Hospital Encounter XRay at [address] [place] [address] Maykel Jacobson MD [facility] [place] [address] Discharge Disposition: Home Social History Tobacco Use [...] daily. 2 gummies daily=4MG NARCAN 4 mg/actuation [place], Non-Aerosol instill 1 spray in 1 NOSTRIL if needed for opioid overdose may re... (REFER TO PRESCRIPTION NOTES). 0 12/08/2018 multivitamin with minerals Tablet Take 1 tablet by mouth daily. morphine sulfate/D5W (MORPHINE IN D5W) 1 mg/mL Prefilled Pump [place] Inject as directed. Has intrathecal pump with [...] AM EST Hospital Encounter [place]patient [place] [address] Cadence Eric MD [facility] [address] 04/06/2024 11:30 AM EST - 04/06/2024 12:50 PM EST Surgery [place] [address] Cadence Eric MD [facility] [place] [address] IMPLANT NEUROSTIMULATOR ELECTRODES, PERIPHERAL NERVE (WRVU 5.76) 04/14/2024 2:30 PM EST Office Visit [facility] [place] [address] Cadence Eric MD [facility] [place] [address] Scheduled Procedures Name Priority Associated Diagnoses Date/Ti [...] Comments XR KNEE STANDING ALIGNMENT AP LAT SKYLINE LEFT Routine 06/05/2021 1:21 PM EST History of total knee replacement, left documented in this encounter Results * XR Knee Standing Alignment AP Lat [place] Left (06/05/2021 1:21 PM EST) Anatomical Region Laterality Modality Knee Left Digital Radiogra phy Impressions 06/05/2021 3:50 PM EST 1. ??Right knee hemiarthroplasty without complications 2. ??Left knee total arthroplasty with new 1 to 2 mm lucency adjacent to the posterior femoral component and tibial stem. Finding may represent evolving postsurgical change. Attention on follow-up to exclude loosening. Preliminary report signed by: Breanne Dean at 06/05/2021 3:15 PM I have personally reviewed the image(s) and the resident's interpretation and agree with the findings, Yanni Crowder MD at 06/05/2021 3:50 PM Thank you for letting us participate in the care of this patient. ??If you are a health care provider and have any questions regarding this report, please contact the number below. ??For patients who have questions please contact the health child care leader that requested your imaging first. ? Electronically signed by: Yanni Crowder MD, [facility] ([phone]), at 06/05/2021 3:50 PM Narrative 06/05/2021 3:50 PM EST EXAMINATION: XR KNEE STANDING ALIGNMENT AP LAT SKYLINE LEFT CLINICAL HISTORY: left knee TECHNIQUE: Separate images of the pelvis, knees and feet were acquired in the AP projection with the patient standing. ??These images were stitched together to form a composite image of the pelvis and legs. Bilateral AP and sunrise views . Lateral view of the left knee. COMPARISON: Knee radiographs 09/07/2020 and 05/09/2020. FINDINGS: Right knee: Nonweightbearing axis passes through the medial aspect of the medial tibial plateau. Status post hemiarthroplasty with unchanged 4 mm lucency along the lateral aspect of the medial condylar component. Components are well aligned. No fracture. Patellar compartment osteophytes. Left knee: The weight-bearing axis passes through the lateral aspect of the medial tibial plateau. Status post hemiarthroplasty without periprosthetic fracture. ??New lucency around the tibial component stem measuring 2 mm. Lucency along the posterior femoral component measuring less than 2 mm . Small knee joint effusion. Procedure Note Yanni Crowder MD - 06/05/2021 EXAMINATION: XR KNEE STANDING ALIGNMENT AP LAT SKYLINE LEFT CLINICAL HISTORY: left knee TECHNIQUE: Separate images of the pelvis, knees and feet were acquired inthe AP projection with the patient standing. These images were stitched togetherto form a composite image of the pelvis and legs. Bilateral AP and sunriseviews . Lateral view of the left knee. COMPARISON: Knee radiographs 09/07/2020 and 05/09/2020. FINDINGS: Right knee: Nonweightbearing axis passes through the medial aspect of themedial tibial plateau. Status post hemiarthroplasty with unchanged 4 mm lucencyalong the lateral aspect of the medial condylar component. Components are well aligned. No fracture. Patellar compartment osteophytes. Left knee: The weight-bearing axis passes through the lateral aspect ofthe medial tibial plateau. Status post hemiarthroplasty withoutperiprosthetic fracture. New lucency around the tibial component stem measuring 2 mm.Lucency along the posterior femoral component measuring less than 2 mm . Smallknee joint effusion. IMPRESSION 1. Right knee hemiarthroplasty without complications 2. Left knee total arthroplasty with new 1 to 2 mm lucency adjacent tothe posterior femoral component and tibial stem. Finding may representevolving postsurgical change. Attention on follow-up to exclude loosening. Preliminary report signed by: Breanne Dean at 06/05/2021 3:15 PM I have personally reviewed the image(s) and the resident's interpretationand agree with the findings, Yanni Crowder MD at 06/05/2021 3:50 PM Thank you for letting us participate in the care of this patient. If youare a health care provider and have any questions regarding this report,please contact the number below. For patients who have questions please contactthe health child care leader that requested your imaging first. Maykel Jacobson MD IMG DX ORDERABLES documented in this encounter Visit Diagnoses Not on filedocumented in this encounter Care Teams Phonograph Mechanic Relationship Specialty Start Date End Date Ja Ordaz MD [address] [place] [address] PCP - General Emergency Medicine 03/11/21 documented as of this encounter
--- OUTSIDE RECORDS SUMMARY | 2024-04-05 16:26 | XMS_ITS | Encounter Summary ---
Author Organization [facility] Address [facility] [place] [address] Care Team Providers Care Manager Sales And Marketing Name Role Phone Ja Ordaz MD Primary Care Provider Encounter Details Date Type Department Care Team (Latest Contact Info) Description 09/04/2021 9:00 AM EDT Laboratory [place] [phone] Status post left knee replacement; Chronic pain [...] AM EST Hospital Encounter [place] [phone] Cadence Eric MD [facility] [place] [address] 04/06/2024 11:30 AM EST - 04/06/2024 12:50 PM EST Surgery [place] [phone] Cadence Eric MD [facility] [place] [address] IMPLANT NEUROSTIMULATOR ELECTRODES, PERIPHERAL NERVE (WRVU 5.76) 04/14/2024 2:30 PM EST Office Visit [facility] [place] [address] Cadence Eric MD [facility] [place] [address] Scheduled Procedures Name Priority Associated Diagnoses Date/Ti [...] Procedure Name Priority Date/Time Associated Diagnosis Comments TYPE AND SCREEN VALIDITY Routine 09/04/2021 9:35 AM EDT ABORH RECHECK STATUS Routine 09/04/2021 9:35 AM EDT HEMOGRAM Routine 09/04/2021 9:35 AM EDT Status post left knee replacement Chronic pain of left knee Left leg pain DIFFERENTIAL, AUTOMATED Routine 09/04/2021 9:35 AM EDT Status post left knee replacement Chronic pain of left knee Left leg pain HC ANTIBODY DETECTION,CAPTURE-R Routine 09/04/2021 9:35 AM EDT Status post left knee replacement Chronic pain of left knee Left leg pain ABO/RH TYPING Routine 09/04/2021 9:35 AM EDT Status post left knee replacement Chronic pain of left knee Left leg pain HC VENIPUNCTURE Routine 09/04/2021 9:35 AM EDT Status post left knee replacement Chronic pain of left knee Left leg pain HC PROTHROMBIN TIME Routine 09/04/2021 9 :35 AM EDT Status post left knee replacement Chronic pain of left knee Left leg pain HC CBC,PLT & AUTO DIFF Routine 09/04/2021 9:35 AM EDT Status post left knee replacement Chronic pain of left knee Left leg pain ANTIBODY SCREEN Routine 09/04/2021 9:35 AM EDT Status post left knee replacement Chronic pain of left knee Left leg pain BASIC METABOLIC PANEL Routine 09/04/2021 9:35 AM EDT Status post left knee replacement Chronic pain of left knee Left leg pain documented in this encounter Results * Type and Screen Validity (09/04/2021 9:35 AM EDT) [facility] T&S only valid at [facility] LABORATORY Comment:This Type and Screen result is only valid at the [facility] Blood 09/04/2021 9:35 AM EDT 09/04/2021 9:47 AM EDT Narrative Resulting Agency Comment Spec In Lab Izzy [facility] LAB ORDER ALLAN Performing Organization Address [facility] Co de Phone Number [facility] [place] [address] * ABORH Recheck Status (09/04/2021 9:35 AM EDT) [facility] ABORH Type Recheck Completed [facility] Blood 09/04/2021 9:35 AM EDT 09/04/2021 9:47 AM EDT Narrative Resulting Agency Comment Spec In Lab Izzy [facility] LAB ORDER ALLAN Performing Organization Address City/[facility]/ZIP Co de Phone Number [facility] [place] [address] * Antibody screen (09/04/2021 9:35 AM EDT) [facility] Ab Screen Interp Negative [facility] Expires at [id number] on: 09/13/2021 [facility] Blood 09/04/2021 9:35 AM EDT 09/04/2021 9:47 AM EDT Narrative Resulting Agency Comment Spec In Lab Izzy [facility] LAB ORDER ALLAN [facility] [place] [address] * Differential, Automated (09/04/2021 9:35 AM EDT) [facility] Neutrophil % 58.8 % [facility] Neutrophil Absolute 3.96 1.70 - 6.10 x10(3)/[facility] LABORATORY Lymph % 23.3 % [facility] Lymphocytes Abs 1.6 0.9 - 3.2 x10(3)/[facility] LABORATORY Monocyte % 10.4 % [facility] Monocyte Abs 0.7 0.3 - 0.9 x10(3)/[facility] LABORATORY Eos % 6.2 % [facility] Eosinophils Abs 0.4 0.0 - 0.4 x10(3)/[facility] LABORATORY Basophil % 0.7 % [facility] Baso Absolute 0.0 0.0 - 0.1 x10(3)/[facility] LABORATORY Immature Gran % 0.60 % [facility] Comment: Immature granulocytes(IG's)percentage and absolute count will include metamyelocytes, myelocytes, and promyelocytes. Blood smears from CBCs yielding IG's will be scanned manually for concordance. If this scan disagrees with the automated IG or if promyelocytes are noted, a manual differential will be performed. Immature Gran Absolute 0.04 0.00 - 0.04 x10(3)/[facility] LABORATORY Blood 09/04/2021 9:35 AM EDT 09/04/2021 10:02 AM EDT Narrative Resulting Agency Comment Spec In Lab Izzy ALVARADO HEMATOLOGY ORDERABLE S [facility] [place] [address] * ABO/Rh Typing (09/04/2021 9:35 AM EDT) Pathologist [facility] ABORH Type A Pos [facility] Blood 09/04/2021 9:35 AM EDT 09/04/2021 9:47 AM EDT Narrative Resulting Agency Comment Spec In Lab Izzy [facility]LOOD [facility] LAB ORDER ALLAN Performing Organization Address City/[facility]/ZIP Co de Phone Number [facility] [place] [address] * Hemogram (09/04/2021 9:35 AM EDT) [facility] White Blood Cell 6.7 4.0 - 9.5 x10(3)/[facility] LABORATORY Red Blood Cell 4.40 4.00 - 5.21 x10(6)/[facility] LABORATORY Hemoglobin 12.5 11.7 - 15.5 g/dL [facility] Hematocrit 38.8 35.7 - 45.8 % [facility] Mean Cell Volume 88.2 82.6 - 94.4 [facility] LABORATORY Mean Cell Hemoglobin 28.4 27.1 - 32.0 pg [facility] Mean Cell Hemoglobin Concentration 32.2 31.7 - 35.0 g/dL [facility] Platelet 348 145 - 357 x10(3)/[facility] LABORATORY RDW Standard Deviation 41.4 37.0 - 46.0 [facility] LABORATORY RDW coefficient of variation 12.7 11.5 - 14.1 % [facility] Mean Platelet Volume 10.4 7.6 - 12.9 [facility] LABORATORY NRBC% auto 0.0 % [facility] NRBC Absolute 0.000 0.000 - 0.000 x10(3)/mcL [facility] Blood 09/04/2021 9:35 AM EDT 09/04/2021 10:02 AM EDT Narrative Resulting Agency Comment Spec In Lab Izzy ALVARADO HEMATOLOGY ORDERABLE S [facility] [place] [address] * (ABNORMAL) Basic Metabolic Panel (non-fasting) (09/04/2021 9:35 AM EDT) Glucose 93 65 - 199 mg/dL [facility] Comment:Diabetes: >=200 mg/d L plus symptoms Blood Urea Nitrogen 10 8 - 18 mg/dL [facility] Creatinine 0.69(L) 0.70 - 1.20 mg/dL [facility] Sodium 140 135 - 145 mmol/L [facility] Potassium 3.9 3.5 - 5.0 mmol/L [facility] Comment: Please note: ??Patients with WBC >100,000 may have falsely elevated Potassium levels. ??For accurate Potassium quantification in these patients send serum separator tube (gold top) for subsequent determinations. ??Contact the Clinical Chemistry Laboratory if there are any questions. Chloride 104 98 - 107 mmol/L [facility] Carbon Dioxide 27 22 - 31 mmol/L [facility] Anion Gap 9 5 - 15 mmol/L [facility] Calcium 9.5 8.5 - 10.5 mg/dL [facility] Est Glomerular Filtration Rate 95 >=60 mL/min/1. 73 m?? [facility] Comment: This patient? s estimated [...] Sanchez MD CHEMISTRY ORDERABLES Performing Organization Address [facility] de Phone Number [facility] [place] [address] * Prothrombin Time (09/04/2021 9:35 AM EDT) Prothrombin Time 11.4 9.4 - 12.5 sec [facility] International Normalization Ratio 1.0 [facility] Comment: An INR <2.0 indicates [...] MD HEMATOLOGY ORDERABLE S Performing Organization Address [facility] de Phone Number [facility] [place] [address] * APTT (09/04/2021 9:35 AM EDT) Partial Thromboplastin Time 32 25 - 37 sec [facility] Comment: The PTT is NOT appropriate for heparin monitoring. Use the Anti-Xa level for heparin monitoring (HEP UFH) or LMWH monitoring (HEP LMW). A PTT less than 37 seconds generally indicates adequate hemostasis. Blood 09/04/2021 9:35 AM EDT 09/04/2021 10:02 AM EDT Narrative Resulting Agency Comment Spec In Lab Wayne Sanchez MD HEMATOLOGY ORDERABLE S [facility] [place] [address] documented in this encounter Visit Diagnoses Diagnosis Status post left knee replacement Chronic pain of left knee Pain in joint, lower leg Left leg pain Pain in limb Saphenous neuralgia, right documented in this encounter Care Teams Manager Sales And Marketing Relationship Specialty Start Date End Date Ja Ordaz MD [address] [place] [id number] PCP - General Emergency Medicine 03/11/21 documented as of this encounter
--- OUTSIDE RECORDS SUMMARY | 2024-04-05 16:26 | XMS_ITS | Encounter Summary ---
Author Organization [facility] Address [facility] [place] [address] Care Team Providers Care Manager Decision Support Name Role Phone Ja Ordaz MD Primary Care Provider [phone] Reason for Visit * Diagnostic Test (Routine) - Closed Specialty Diagnoses / Procedures Referred By Conttom t Referred To Contact Radiology Diagnoses Primary osteoarthritis of left knee Procedures NM Bone Scan 3 Phase Leanna Yañez MD [facility] [place] [address] [place] [address] Referral ID Status Reason Start Date Expiration Date V isits Requested Visits Authorized [id number] Closed Specialty Service Requested 06/27/2021 05/10/2022 1 1 Encounter Details Date Type Department Care Team (Latest Contact Info) Description 07/09/2021 11:11 AM EST - 07/09/2021 11:59 PM [facility] Hospital En[place] [address] Wayne Sanchez MD [facility] [place] [address] Discharge Disposition: Home Social History [...] daily. 2 gummies daily=4MG NARCAN 4 mg/actuation Kent, Non-Aerosol instill 1 spray in 1 NOSTRIL if needed for opioid overdose may re... (REFER TO PRESCRIPTION NOTES). 0 12/08/2018 multivitamin with minerals Tablet Take 1 tablet by mouth daily. morphine sulfate/D5W (MORPHINE IN D5W) 1 mg/mL Prefilled Pump Rives Inject as directed. Has intrathecal pump with [...] AM EST Hospital Encounter [place] [address] Cadence Eric MD [facility] [place] [address] 04/06/2024 11:30 AM EST - 04/06/2024 12:50 PM EST Surgery [place] [address] Cadence Eric MD [facility] [place] [address] IMPLANT NEUROSTIMULATOR ELECTRODES, PERIPHERAL NERVE (WRVU 5.76) 04/14/2024 2:30 PM EST Office Visit [place] [address] Cadence Eric MD [facility] [place] [address] Scheduled Procedures Name Priority Associated Diagnoses Date/Ti [...] questions please contact the health animal care technician that requested your imaging first. ? Narrative [...] have questions please contactthe health animal care technician that requested your imaging first. Wayne Sanchez MD IMG NM ORDERABLES documented in this encounter Visit Diagnoses Not on filedocumented in this encounter Care Teams Manager Decision Support Relationship Specialty Start Date End Date Ja Ordaz MD [address] [place] [id number] PCP - General Emergency Medicine 03/11/21 documented as of this encounter
--- OUTSIDE RECORDS SUMMARY | 2024-04-05 16:26 | XMS_ITS | Encounter Summary ---
Author Organization [facility] Address [facility] [place] [address] Care Team Providers Care Assistant Football Coach Name Role Phone Ja Ordaz MD Primary Care Provider [phone] Encounter Details Date Type Department Care Team (Latest Contact Info) Description 06/05/2021 3:00 PM EST Laboratory Appointment Lab [address] [place] [phone] Chronic pain of left knee; Primary osteoarthritis of left knee Social History Tobacco Use [...] AM EST Hospital Encounter [place]patient [place] [phone] Cadence Eric MD [facility] [place] [address] 04/06/2024 11:30 AM EST - 04/06/2024 12:50 PM EST Surgery Outpatient [place] [phone] Cadence Eric MD [facility] [place] [address] IMPLANT NEUROSTIMULATOR ELECTRODES, PERIPHERAL NERVE (WRVU 5.76) 04/14/2024 2:30 PM EST Office Visit [facility] [place] [address] Cadence Eric MD [facility] [place] [address] Scheduled Procedures Name Priority Associated Diagnoses Date/Ti [...] Name Priority Date/Time Associated Diagnosis Comments HC C-REACTIVE PROTEIN Routine 06/05/2021 3:19 PM EST Primary osteoarthritis of left knee HEMOGRAM Routine 06/05/2021 3:19 PM EST Chronic pain of left knee DIFFERENTIAL, AUTOMATED Routine 06/05/2021 3:19 PM EST Chronic pain of left knee HC ESR-SEDIMENTATION RATE, BLOOD Routine 06/05/2021 3:19 PM EST Primary osteoarthritis of left knee HC VENIPUNCTURE Routine 06/05/2021 3:19 PM EST Chronic pain of left knee documented in this encounter Results * (ABNORMAL) Differential, Automated (06/05/2021 3:19 PM EST) Neutrophil % 53.2 % [facility] Neutrophil Absolute 3.44 1.70 - 6.10 x10(3)/mc L [facility] Lymph % 28.4 % [facility] Lymphocytes Abs 1.8 0.9 - 3.2 x10(3)/ L [facility] Monocyte % 9.8 % [facility] Monocyte Abs 0.6 0.3 - 0.9 x10(3)/ L [facility] Eos % 7.6 % [facility] Eosinophils Abs 0.5(H) 0.0 - 0.4 x10(3)/[facility] LABORATORY Basophil % 0.8 % [facility] Baso Absolute 0.0 0.0 - 0.1 x10(3)/[facility] LABORATORY Immature Gran % 0.20 % [facility] Comment: Immature granulocytes(IG's)percentage and absolute count will include metamyelocytes, myelocytes, and promyelocytes. Blood smears from CBCs yielding IG's will be scanned manually for concordance. If this scan disagrees with the automated IG or if promyelocytes are noted, a manual differential will be performed. Immature Gran Absolute 0.01 0.00 - 0.04 x10(3)/ L [facility] Blood 06/05/2021 3:19 PM EST 06/05/2021 3:47 PM EST Narrative Resulting Agency Comment Spec In Lab Leanna Yañez MD HEMATOLOGY ORDERABL ES [facility] [place] [address] * (ABNORMAL) Hemogram (06/05/2021 3:19 PM EST) White Blood Cell 6.4 4.0 - 9.5 x10(3)/[facility] Red Blood Cell 4.37 4.00 - 5.21 x10(6)/[facility] Hemoglobin 12.6 11.7 - 15.5 g/dL [facility] Hematocrit 37.9 35.7 - 45.8 % [facility] Mean Cell Volume 86.7 82.6 - 94.4 fL [facility] Mean Cell Hemoglobin 28.8 27.1 - 32.0 pg [facility] Mean Cell Hemoglobin Concentration 33.2 31.7 - 35.0 g/dL [facility] Platelet 369(H) 145 - 357 x10(3)/mc L [facility] RDW Standard Deviation 41.6 37.0 - 46.0 fL [facility] RDW coefficient of variation 13.1 11.5 - 14.1 % [facility] Mean Platelet Volume 9.9 7.6 - 12.9 fL [facility] NRBC% auto 0.0 % [facility] NRBC Absolute 0.000 0.000 - 0.000 x10(3)/mc L [facility] Blood 06/05/2021 3:19 PM EST 06/05/2021 3:47 PM EST Narrative Resulting Agency Comment Spec In Lab Leanna Yañez MD HEMATOLOGY ORDERABL ES [facility] [place] [address] * Sedimentation rate (06/05/2021 3:19 PM EST) [facility] Sedimentation Rate Automated 17 2 - 39 mm/hr [facility] Comment: Effective April 20, 2019 new capillary photometric technology has resulted in a change in reference ranges. It is recommended that each ESR result be reviewed with its own age appropriate reference range. Blood 06/05/2021 3:19 PM EST 06/05/2021 3:47 PM EST Narrative Resulting Agency Comment Spec In Lab Wayne Sanchez MD HEMATOLOGY ORDERABLE S [facility] [place] [address] * CRP, acute inflammation (06/05/2021 3:19 PM EST) C-Reactive Protein <3.0 <=4.9 mg/L [facility] Blood 06/05/2021 3:19 PM EST 06/05/2021 3:47 PM EST Narrative Resulting Agency Comment Spec In Lab Wayne Sanchez MD CHEMISTRY ORDERABLES [facility] [place] [address] documented in this encounter Visit Diagnoses Diagnosis Chronic pain of left knee Pain in joint, lower leg Primary osteoarthritis of left knee Primary localized osteoarthrosis, lower leg Saphenous neuralgia, right documented in this encounter Care Teams Assistant Football Coach Relationship Specialty Start Date End Date Ja Ordaz MD [address] [place] [address] PCP - General Emergency Medicine 03/11/21 documented as of this encounter
--- OUTSIDE RECORDS SUMMARY | 2024-04-05 16:26 | XMS_ITS | Encounter Summary ---
Author Organization [facility] [place] [address] Care Team Providers Care Investment Broker Name Role Phone Ja Ordaz MD Primary Care Provider Reason for Visit * Reason Onset Date Comments Questions 06/28/2021 Encounter Details Date Type Department Care Team (Late Contact Info) Description 06/28/2021 Telephone [place] [phone] Clinic, Dr Sanchez Team None Questions Social [...] encounter Miscellaneous Notes * Telephone Encounter - Dyana Handy LPN - 07/03/2021 1:14 PM EST Provider unavailable to sign orders. Signed verbal with readback. * Telephone Encounter - Zach Sarai Radha - 06/28/2021 9:57 AM EST I received this message from Radiology, Good morning! this patient has an asp w/ synovasure for next week. There aren't any lab orders in... Can you ask the provider to place the needed cultures/etc? documented in this encounter Plan of Treatment Upcoming Encounters Date Type Department Care Team (Latest Contact Info) Description 04/06/2024 11:30 AM EST Hospital Encounter Outpatient [place] [address] Cadence Eric MD [facility] [place] [address] 04/06/2024 11:30 AM EST - 04/06/2024 12:50 PM EST Surgery Outpatient [place] [address] Cadence Eric MD [facility] [place] [address] IMPLANT NEUROSTIMULATOR ELECTRODES, PERIPHERAL NERVE (WRVU 5.76) 04/14/2024 2:30 PM EST Office Visit [place] [address] Cadence Eric MD [facility] [place] [address] Scheduled Procedures Name Priority Associated Diagnoses Date/Ti me IMPLANT NEUROSTIMULATOR ELECTRODES, PERIPHERAL NERVE (WRVU 5.76) Yes Saphenous neuralgia, right 04/06/2024 11:30 AM EST IMPLANT NEUROSTIMULATOR ELECTRODES, PERIPHERAL NERVE (WRVU 5.76) Saphenous neuralgia, 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 Neuropathic pain COLONOSCOPY,SCREENING (WRVU 3.26) Health maintenance examination-screening colo documented as of this encounter Results * Fungus culture Joint (07/10/2021 12:42 PM EST) Fungus Culture No Fungus isolated [facility] Joint 07/10/2021 12:4 2 PM EST 07/10/2021 12:42 PM EST Narrative Resulting Agency Comment Spec In Lab Wayne Sanchez MD MICROBIOLOGY - GENER AL ORDERABLES [facility] [place] [address] * Crystal Exam Body Fluid (07/10/2021 12:03 PM EST) Crystal BF Type Knee fluid [facility] Crystal Exam, Fld None Seen [facility] Knee Joint Fluid 07/10/2021 12:03 PM EST 07/10/2021 12:42 PM EST Narrative Resulting Agency Comment Spec In Lab Wayne Sanchez MD BODY FLUIDS AND STOO LS ORDERABLES Performing Organization Address City/[facility]/ZIP Co de Phone Number [facility] [place] [address] * (ABNORMAL) Cell Count Body Fluid (07/10/2021 12:03 PM EST) Body Fluid Source Knee Fl [facility] Color, Fld Red [facility] Appearance, Fld Cloudy [facility] WBC Count, Fld 195(H) <=149 /[facility] LABORATORY Comment: All body fluid results should always be interpreted in light of the total clinical presentation of the patient, including clinical history, data from additional tests and other appropriate information. Polymorphonuclear cells BF % 27 % [facility] Comment: Polymorphonuclear cell percent and absolute values may contain Neutrophils, Eosinophils, and Basophils. Body fluid smear will be scanned manually for concordance. Mononuclear cells BF % 73 % [facility] Comment: Mononuclear cell percent and absolute values may contain Lymphocytes and Monocytes. Body fluid smear will be scanned manually for concordance. Polymorphonuclear cells BF ABS 52 /[facility] LABORATORY Comment: Polymorphonuclear cell percent and absolute values may contain Neutrophils, Eosinophils, and Basophils. Body fluid smear will be scanned manually for concordance. Mononuclear cells BF ABS 143 /[facility] LABORATORY Comment: Mononuclear cell percent and absolute values may contain Lymphocytes and Monocytes. Body fluid smear will be scanned manually for concordance. Knee Joint Fluid 07/10/2021 12:03 PM EST 07/10/2021 12:42 PM EST Narrative Resulting Agency Comment Spec In Lab Wayne Sanchez MD BODY FLUIDS AND STOO LS ORDERABLES [facility] [place] [address] documented in this encounter Visit Diagnoses Diagnosis Status post left knee replacement Saphenous neuralgia, right documented in this encounter Care Teams Investment Broker Relationship Specialty Start Date End Date Ja Ordaz MD [address] [place] [id number] PCP - General Emergency Medicine 03/11/21 documented as of this encounter
--- OUTSIDE RECORDS SUMMARY | 2024-04-05 16:27 | XMS_ITS | Encounter Summary ---
Author Organization [facility] Address [facility] [place] [address] Care Team Providers Care Garment Alteration Examiner Name Role Phone Bob Day MD Primary Care Provider [phone] [phone] Encounter Details Date Type Department Care Team (Late st Contact Info) Description 06/27/2020 Telephone [place] [phone] Pawel Glez Social History Tobacco Use Types Packs/Day Years [...] AM EST Hospital Encounter [place] [address] Cadence Eric MD [facility] [place] [address] 04/06/2024 11:30 AM EST - 04/06/2024 12:50 PM EST Surgery [place] [phone] Cadence Eric MD [facility] [place] [address] IMPLANT NEUROSTIMULATOR ELECTRODES, PERIPHERAL NERVE (WRVU 5.76) 04/14/2024 2:30 PM EST Office Visit [facility] at [facility] [place] [address] Cadence Eric MD [facility] [place] [address] Scheduled Procedures Name Priority Associated Diagnoses Date/Ti [...] on filedocumented in this encounter Care Teams Garment Alteration Examiner Relationship Specialty Start Date End Date Bob Day MD [address] [place] [address] PCP - General Family Medicine 01/18/18 07/26/20 documented as of this encounter
--- OUTSIDE RECORDS SUMMARY | 2024-04-05 16:27 | XMS_ITS | Encounter Summary ---
Author Organization [facility] Address [facility] [place] [address] Care Team Providers Care Explosive Ordnance Technician Name Role Phone Bob Day MD Primary Care Provider [phone] [phone] Reason for Visit * Auth/Cert Specialty Diagnoses / Procedures Referred By Contac t Referred To Contact Diagnoses Pump Procedures PRO ELECTRONIC PUMP ANALYSIS W REPROGRAMMING AND REFILL BY MD/PEANUT SEPARATOR ELECTRONIC HERNANDEZ PROG., PUMP- DRUG INFUS; W/ REPROGRAM & REFILL REQ (WRVU 0.9) Referral ID Status Reason Start Date Expiration Date Visits Re quested Visits Authorized [id number] 1 1 Encounter Details Date Type Department Care Team (Late st Contact Info) Description 07/09/2020 1:00 PM EST Ancillary [place] [address] Karl Becker MD [facility] [place] [place] [address] Pain Social History Tobacco Use Types Packs/Day [...] AM EST Hospital Encounter Outpatient [place] [address] Cadence Eric MD [facility] [place] [address] 04/06/2024 11:30 AM EST - 04/06/2024 12:50 PM EST Surgery [place]patient [place] [address] Cadence Eric MD [facility] [place] [address] IMPLANT NEUROSTIMULATOR ELECTRODES, PERIPHERAL NERVE (WRVU 5.76) 04/14/2024 2:30 PM EST Office Visit [facility] [place] [address] Cadence Eric MD [facility] [place] [address] Pending Results Name Type Priority Associated Diagnoses Date /Time Film Library- Storage Only pain Clinic C-Arm Imaging Storage Only Routine Pain 07/06/2020 3:37 PM EST Scheduled Procedures Name Priority Associated Diagnoses Date/Ti fl IMPLANT NEUROSTIMULATOR ELECTRODES, PERIPHERAL NERVE (WRVU 5.76) Yes Saphenous neuralgia, right 04/06/2024 11:30 AM EST IMPLANT NEUROSTIMULATOR ELECTRODES, PERIPHERAL NERVE (WRVU 5.76) Saphenous neuralgia, 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 Neuropathic pain COLONOSCOPY,SCREENING (WRVU 3.26) Health maintenance examination-screening colo documented as of this encounter Visit Diagnoses Diagnosis Pain Generalized pain Saphenous neuralgia, right documented in this encounter Care Teams Explosive Ordnance Technician Relationship Specialty Start Date End Date Bob Day MD [address] [place] [address] PCP - General Family Medicine 01/18/18 07/26/20 documented as of this encounter
--- OUTSIDE RECORDS SUMMARY | 2024-04-05 16:27 | XMS_ITS | Encounter Summary ---
Author Organization [facility] Address [facility] [place] [address] Care Team Providers Care Felt Cementer Name Role Phone Bob Day MD Primary Care Provider [phone] [phone] Reason for Visit * Auth/Cert Specialty Diagnoses / Procedures Referred By Cindy t Referred To Contact Diagnoses 1Pump refill Procedures PRO ELECTRONIC PUMP ANALYSIS W REPROGRAMMING AND REFILL BY MD/TANK BOTTOM ASSEMBLER ELECTRONIC HERNANDEZ PROG., PUMP- DRUG INFUS; W/ REPROGRAM & REFILL REQ (WRVU 0.9) Referral ID Status Reason Start Date Expiration Date Visits Re quested Visits Authorized [id number] 1 1 Encounter Details Date Type Department Care Team (Latest Contact Info) Description 11/07/2020 12:53 PM EDT - 11/07/2020 1:45 PM EDT Hospital [place] [phone] Karl Becker MD [facility] [place] [address] Postlaminectomy syndrome of lumbar region Discharge Disposition: [...] Sign Reading Time Taken Comments Blood Pressure 125/65 11/07/2020 1:20 PM EDT Pulse - - Temperature - - Respiratory Rate - - Oxygen Saturation 100% 11/07/2020 1:20 PM EDT Inhaled Oxygen Concentration - - Weight - - Height - - Body Mass Index - - documented in this encounter Discharge Instructions * Discharge Instructions* Kathia Gordon - 11/07/2020 1:21 PM EDT Pain Management Center Discharge Instructions: You were seen today by Surgeon(s): Karl Becker MD The following was performed: Procedure(s) (LRB): ELECTRONIC HERNANDEZ PROG., PUMP- DRUG INFUS; W/ REPROGRAM & REFILL MILAGRO DAWSON (WRVU 0.9) (N/A) It is normal that the injection site will be sore for up to 48 hours. [x] You may also experience mild stiffness in the joint near the injection site. You may resume your normal activities: tomorrow. [...] or proceed to your local emergency department. KATHIA GORDON Special instructions documented in this encounter Medications [...] daily. 2 gummies daily=4MG NARCAN 4 mg/actuation [place], Non-Aerosol instill 1 spray in 1 NOSTRIL if needed for opioid overdose may re... (REFER TO PRESCRIPTION NOTES). 0 12/08/2018 multivitamin with minerals Tablet Take 1 tablet by mouth daily. morphine sulfate/D5W (MORPHINE IN D5W) 1 mg/mL Prefilled Pump Sadler Inject as directed. Has intrathecal pump with [...] as of this encounter H&P Notes * France Muniz MD - 11/07/2020 1:00 PM EDT Patient Name: Etelvina Cuadra Patient Age: 59 y.o. Birthdate: 1960 Admit date: 11/07/2020 Attending Physician: No att. providers found PREPROCEDURE HISTORY AND PHYSICAL Date of Visit: November 07, 2020 Chief Complaint: Low back and leg pain HPI: Subjective Etelvina Cuadra is a 59 y.o. female who presents today for intrathecal pump refill ordered by Dr Becker The history is obtained from the patient, and I have reviewed medical records provided by the referring physician and located in the electronic medical record to fill in gaps in the patient's recollection of events, treatments and outcomes. LOCATION: Right lower quadrant PAST MEDICAL HISTORY: Past Medical History: Diagnosis [...] hernia, with obstruction, without gangrene 06/24/2018 ??? senior living current use of opiate analgesic Oxycodone 10 [...] WITH BX performed by NIKKI MAYORGA at [facility] ENDOSCOPY ??? PRO COLONOSCOPY, DIAGNOSTIC 09/23/2011 COLONOSCOPY, DIAGNOSTIC performed by NIKKI MAYORGA at [facility] ENDOSCOPY ??? PRO ELECTRONIC PUMP ANALYSIS W REPROGRAMMING AND REFILL BY /NAHID N/A 03/30/2019 ELECTRONIC HERNANDEZ PROG., PUMP- DRUG INFUS; W/ REPROGRAM & REFILL REQ (WRVU 0.9) performed by Karl Becker MD at [facility] PAIN MGMT MSO ??? PRO ELECTRONIC PUMP ANALYSIS W REPROGRAMMING AND REFILL BY /NAHID N/A 12/05/2019 ELECTRONIC HERNANDEZ PROG., PUMP- DRUG INFUS; W/ REPROGRAM & REFILL REQ (WRVU 0.9) performed by Karl Becker MD at [facility] PAIN MGMT MSO ??? PRO ELECTRONIC PUMP ANALYSIS W REPROGRAMMING AND REFILL BY /NAHID N/A 03/12/2020 ELECTRONIC HERNANDEZ PROG., PUMP- DRUG INFUS; W/ REPROGRAM & REFILL REQ (WRVU 0.9) performed by Karl Becker MD at [facility] PAIN MGMT MSO ??? PRO IMP SPINAL CANAL CATH Midline 03/23/2019 IMPLANT, REV OR REP TUNNELED INTRATHACAL OR EPIDURAL CATHETER (WRVU 6.05) performed by Karl Becekr MD at [facility] MAIN OR ??? PRO INSERT/ REPLACE INFUSN PUMP, PROGRAMMABLE Right 03/23/2019 IMPLANT OR REPLACE PROG. PUMP-DRUG INFUSION (WRVU 5.6) performed by Melani Darden MD at [facility] ADEEL ??? PRO LAP, CHOLECYSTECTOMY/GRAPH N/A 10/18/2016 LAPAROSCOPIC CHOLECYSTECTOMY WITH CHOLANGIOGRAM (WRVU 11.47) performed by Tasia Umaña MD at [facility] MAIN OR ??? PRO LAP, VENTRAL HERNIA REPAIR, INCARCERATED N/A 07/12/2018 LAPAROSCOPIC HERNIA, VENTRAL, INCARCERATED, W-WO MESH (WRVU 14.94) performed by Izzy Blanco MD at [facility] MAIN OR ??? PRO TOTAL KNEE ARTHROPLASTY Left 03/29/2020 TOTAL KNEE ARTHROPLASTY (WRVU 20.72) performed by Maykel Jacosbon MD at [facility] MAIN OR ALLERGIES: Peanut, Peanut oil, Rice, Wheat, Wheat bran, Wheat flour, Wheat germ oil, Wheat starch, Adhesive, Canine protein containing products, Hazelnut, Hydrocodone, Hydrocodone-acetaminophen, Hydrocodone-ibuprofen, Rofecoxib, Tetracycline, Tetracyclines, and Wool MEDICATIONS: No current facility-administered medications on file prior to encounter. Current Outpatient Medications on File Prior to Encounter Medication Sig Dispense Refill ??? oxyCODONE (ROXICODONE) 10 mg Tablet Take [...] tablet by mouth nightly. 90 tablet 1 ??? citalopram (CeleXA) 40 mg Tablet Take 1 tablet by mouth daily. 90 tablet 1 ??? furosemide (Lasix) 20 mg Tablet Take 1 tablet by mouth daily as needed. 30 tablet 2 ??? polyethylene glycoL (Miralax) 17 gram/dose Powder Take by mouth. ??? epinephrine HCl/PF (EPINEPHrine, pf,) 1 mg/mL (1:1,000) Solution Inject as directed. ??? baclofen (Lioresal) 10 mg Tablet Take 1 tablet by mouth 3 times daily. (Patient taking differently: Take 10 mg by mouth nightly.) 90 tablet 0 ??? senna-docusate (Pericolace) 8.6-50 mg Tablet Take 1 tablet by mouth daily. ??? acetaminophen (Tylenol) 500 mg Tablet Take 2 tablets by mouth every 8 hours. ??? albuteroL (ProAir HFA) 90 mcg/actuation HFA Aerosol Inhaler Inhale 1-2 puffs into the lungs Every 4 hours. ??? calcium carbonate-vitamin D3 (Os-Nico 500 + D3) 500mg (1,250mg) -600 unit Tablet Take by mouth Daily. ??? Bifidobacterium infantis (ALIGN) 4 mg Capsule Take by mouth daily. ??? NARCAN 4 mg/actuation [place], Non-Aerosol instill 1 spray in 1 NOSTRIL if needed for opioid overdose may re... (REFER TO PRESCRIPTION NOTES). 0 ??? multivitamin with minerals Tablet Take 1 tablet by mouth daily. ??? morphine 100 % Powd 10 mg/mL by Intrathecal route continuous. 42 mL 0 ??? morphine sulfate/D5W (MORPHINE IN D5W) 1 mg/mL Prefilled Pump Sadler Inject as directed. ??? EPINEPHrine 1 mg/mL Kit Inject as directed as needed. FAMILY HISTORY: Family History Problem Relation Age [...] Cigarettes Quit date: 09/23/1991 Years since quittin.1 ??? Smokeless tobacco: Never Used Vaping Use ??? Vaping Use: Never used Substance and Sexual Activity ??? Alcohol use: No ??? Drug use: No ??? Sexual activity: Not on file Other Topics Concern ??? Not on file Social History Narrative ??? Not on file Social Determinants of Health Financial Resource Strain: ??? Difficulty of Paying Living Expenses: Food Insecurity: ??? Worried About Running Out of Food in the Last Year: ??? Ran Out of Food in the Last Year: Transportation Needs: ??? Lack of Transportation (Medical): ??? Lack of Transportation (Non-Medical): Physical Activity: ??? Days of Exercise per Week: ??? Minutes of Exercise per Session: ROS: Pt denies recent fever, chills, infection, wounds, hospitalizations, ED visits, use of antibiotics.Otherwise, as described above. PHYSICAL EXAM: BP 125/65 SpO2 100% Physical Exam Constitutional: Pt oriented to person, place, and time. Appears well-developed and well-nourished. No distress. HENT: Head: Normocephalic and atraumatic. Pulmonary/Chest: Effort normal. Neurological: Alert and oriented to person, place, and time. No cranial nerve deficit. Skin: Skin is warm and dry. No rash noted. Not diaphoretic. Psychiatric: Normal mood and affect. RADIOLOGIC DATA: Relevant imaging reviewed LABS/DX RESULTS: Last 3 wbc, hgb, hct plt Recent Labs 04/01/20 0253 03/31/20 0315 03/30/20 1147 WBC 10.9* 8.6 13.8* HGB 7.7* 7.0* 8.6* HCT 24.5* 22.1* 26.5* PLATELET 265 249 380* Last 3 Lytes Recent Labs 04/01/20 0253 03/31/20 0315 03/30/20 1147 NA 140 138 135 K 4.9 4.2 4.1 CL 108* 107 101 CO2 26 24 25 BUN 14 17 14 CREATININE 0.87 1.05 1.23* Last 3 LFTs No results for input(s): AST, ALT, ALKPHOS, BILITOT, BILIDIR in the last 7068 hours. Last 3 Coags No results for input(s): PT, INR, PTT in the last 168 hours. Last 3 HgbA1C No results for input(s): HA1C in the last 7068 hours. ASSESSMENT: Assessment 1. Postlaminectomy syndrome of lumbar region PLAN: Proceed with planned intrathecal pump refill. Addressed all questions and concerns. Risks and benefits discussed with patient. No contraindications to the procedure at this time, will proceed. France Muniz MD Pain Management Fellow [facility] [address] [address] [email or web address] documented in this encounter Miscellaneous Notes * Op Note - France Muniz MD - 11/07/2020 1:18 PM EDT Pain Management Operative Note Patient Name: Etelvina Cuadra : [id number] MR#: [id number] Case Date: 11/07/2020 Surgeon: Surgeon(s) and Role: * Karl Becker MD - Primary * France Muniz MD - Fellow Present on Admission: ??? Postlaminectomy syndrome of lumbar region Postoperative diagnosis: same Procedure(s) (LRB): ELECTRONIC HERNANDEZ PROG., PUMP- DRUG INFUS; W/ REPROGRAM & REFILL MILAGRO DAWSON (WRVU 0.9) (N/A) INTRATHECAL PUMP REFILL PROCEDURE NOTE WITH REPROGRAMMING Primary Head Field Hockey Coach: Karl Becker MD Enterprise Resource Planner: France Muniz MD Reason for Reprogramming: Refill Diagnosis: post-laminectomy syndrome Concomitant Medical Problems: N/A Telemetry Pre-Refill Programming Reading: Drugs/Concentrations: Morphine - Preservative Free - 10 mg/ml Daily Dose: 2.001 mg/day Telemetry Post-Refill Programming Reading: Drugs/Concentrations: Morphine - Preservative Free - 10 mg/ml Daily Dose: 2.001 Pump Capacity: 40 mL Computer predicted residual volume in pump: 5.4mL Measured residual volume in pump: 6.5mL Medication or Dose Changes: no Is dose change >30%? no Is concentration of drug different? no Empty syringe concentration verified by dead mail checker: yes If concentration of drug is different, has a bridge bolus been programmed? n/a. Has any program been used other than simple continuous or bridge bolus and simple continuous? no Infusion Mode: simple continuous with PTM 0.2mg New Alarm Date: 03/14/2021 PROCEDURE: Risks and expected side effects were [...] drapes were applied as provided with the SI-BONEtronic refill kit. A 22 gauge Moraes non-coring needle supplied with the refill kit was inserted through the refill-template into the central refill port of the pump using fluoroscopic guidance. The pump was aspirated for the above [...] instilled into the pump according to the steel division supervisor's directions without difficulty. There was no evidence of over pressurization at the conclusion of the fillingprocess. The Moraes needle was withdrawn and a Band-Aid was applied. The pump was then re-accessed via telemetry and reprogrammed to indicate the refill volume of 40 ml. The unused portion of the medication was discarded along with the old drug aspirated. Battery alarms reviewed and were appropriately enabled and in working order. Patient tolerated the procedure well and was discharged from the Pain Management Center. Follow-up appointments will be arranged for refills as appropriate. France Muniz MD Pain Management Fellow [facility] [address] [address] [email or web address] Associated attestation - Karl Becker MD - 11/08/2020 3:51 PM EDT Attestation: Case Date: 11/07/2020 I was present and I participated during the entire procedure (does not need to include opening and closing). KARL BECKER MD 11/08/2020 documented in this encounter Plan of Treatment Upcoming Encounters Date Type Department Care Team (Latest Contact Info) Description 04/06/2024 11:30 AM EST Hospital Encounter [place] [address] Cadence Eric MD [facility] [place] [address] 04/06/2024 11:30 AM EST - 04/06/2024 12:50 PM EST Surgery [place] [address] Cadence Eric MD [facility] [place] [address] IMPLANT NEUROSTIMULATOR ELECTRODES, PERIPHERAL NERVE (WRVU 5.76) 04/14/2024 2:30 PM EST Office Visit [facility] [place] [phone] Cadence Eric MD [facility] [place] [address] Scheduled Procedures Name Priority Associated Diagnoses Date/Ti [...] Priority Date/Time Associated Diagnosis Comments Anal Inf Ticket Writer W ReproRefil([id number]) 11/07/2020 1:01 PM EDT Pump refill documented in this encounter Visit Diagnoses Diagnosis Postlaminectomy syndrome of lumbar region- Primary Postlaminectomy syndrome, lumbar region Postlaminectomy syndrome of lumbar region Postlaminectomy syndrome, lumbar region Saphenous neuralgia, right documented in this encounter Care Teams Felt Cementer Relationship Specialty Start Date End Date Bob Day MD [address] [place] [address] PCP - General Family Medicine 08/30/20 02/06/21 documented as of this encounter
--- OUTSIDE RECORDS SUMMARY | 2024-04-05 16:27 | XMS_ITS | Encounter Summary ---
Author Organization [facility] [place] [address] Care Team Providers Care Drill Press Operator For Metal Name Role Phone Bob Day MD Primary Care Provider [phone] [phone] Reason for Visit * Reason Onset Date Comments Other 07/03/2020 medication Encounter Details Date Type Department Care Team (Late st Contact Info) Description 07/03/2020 Telephone Primary Care at [address] [phone] Sharona Mallory Other (medication) Social History Tobacco Use Types Packs/Day Years [...] encounter Miscellaneous Notes * Telephone Encounter - Prema Pacheco CMA - 07/03/2020 4:57 PM EST See message below. * Telephone Encounter - Sharona Mallory - 07/03/2020 4:29 PM EST patient phoned and stated a Lasix prescription was going to be sent to her pharm yesterday by Dr Day and they did not receive it. [facility] [phone] documented in this encounter Plan of Treatment Upcoming Encounters Date Type Department Care Team (Latest Contact Info) Description 04/06/2024 11:30 AM EST Hospital Encounter Outpatient [place] [address] Cadence Eric MD [facility] [place] [address] 04/06/2024 11:30 AM EST - 04/06/2024 12:50 PM EST Surgery Outpatient [place] [phone] Cadence Eric MD [facility] [place] [address] IMPLANT NEUROSTIMULATOR ELECTRODES, PERIPHERAL NERVE (WRVU 5.76) 04/14/2024 2:30 PM EST Office Visit [place] [phone] Cadence Eric MD [facility] [place] [address] Scheduled Procedures Name Priority Associated Diagnoses Date/Ti [...] on filedocumented in this encounter Care Teams Drill Press Operator For Metal Relationship Specialty Start Date End Date Bob Day MD [address] [place] [address] PCP - General Family Medicine 01/18/18 07/26/20 documented as of this encounter
--- OUTSIDE RECORDS SUMMARY | 2024-04-05 16:27 | XMS_ITS | Encounter Summary ---
Author Organization [facility] Address [facility] [place] [address] Care Team Providers Care Windows Systems Architect Name Role Phone Bob Day MD Primary Care Provider [phone] Encounter Details Date Type Department Care Team (Late st Contact Info) Description 07/04/2020 Orders Only Primary Care at [address] [address] Bob Day MD [address] [place] [id number] Social History Tobacco Use Types Packs/Day Years [...] AM EST Hospital Encounter [place]patient [place] [phone] Cadence Eric MD [facility] [address] 04/06/2024 11:30 AM EST - 04/06/2024 12:50 PM EST Surgery [place]patient [place] [address] Cadence Eric MD [facility] [place] [address] IMPLANT NEUROSTIMULATOR ELECTRODES, PERIPHERAL NERVE (WRVU 5.76) 04/14/2024 2:30 PM EST Office Visit [facility] [place] [address] Cadence Eric MD [facility] [place] [address] Scheduled Procedures Name Priority Associated Diagnoses Date/Ti [...] on filedocumented in this encounter Care Teams Windows Systems Architect Relationship Specialty Start Date End Date Bob Day MD [address] [place] [address] PCP - General Family Medicine 01/18/18 07/26/20 documented as of this encounter
--- OUTSIDE RECORDS SUMMARY | 2024-04-05 16:27 | XMS_ITS | Encounter Summary ---
Author Organization [facility] [place] [address] Care Team Providers Care Furnace Filler Name Role Phone Salina Herman APRN Primary Care Provider [phone]- [phone] Reason for Visit * Reason Onset Date Comments Medication Refill 08/17/2020 Medication Refill 08/20/2020 Encounter Details Date Type Department Care Team (Late st Contact Info) Description 08/17/2020 Refill Primary Care at [address] [phone] Dana Arce s/josie Left Total Knee Arthroplasty - 03/29/2020 Dr. Jacobson Social History Tobacco Use Types Packs/Day Years [...] encounter Miscellaneous Notes * Telephone Encounter - Brisa Beard CMA - 08/20/2020 2:04 PM EDT Caller: Etelvina Cuadra Relationship to Patient: self Best number to be reached: Rx Renewal: PCP: Salina Herman APRN Last encounter this office: 07/02/2020 Last relevant appointment: 07/02/2020 w/Salina Next appt this provider: 10/31/2020 Last Prescription Fill Date: 08/17/2020 Number Dispensed and Refills: 21 tabs due to insurance Medication and Dose: Oxycodone 10mg UDS: 07/02/2020 Contract: 07/02/2020 [place] searched: [place]io[place] PDMP 08/17/2020 04/03/2020 02/21/2020 06/24/2018 [place] PDMP Query Date 08/20/2020 04/03/2020 02/21/2020 07/15/2018 [place] PDMP Query Date 08/20/2020 04/03/2020 02/21/2020 07/15/2018 [place] PD[place] Query Date - 04/03/2020 02/21/2020 07/15/2018 Send to Pharmacy: [id number] - [place], [place] - [address] [place] [address] AT [facility] [address] [facility] [address] [facility] [address] [facility] [place] - [address] [facility] [address] [facility] [address] [facility] - [place], [place] - One [facility] One [facility] [address] [facility] [place] [address] - [place], [place] - [address] [facility] [address] [facility] [address] [facility] [place] [address] - [address] [facility] [address] [facility] [address] [id number] - [place], [place] - [address] [facility] [address] [facility] [address] [facility] - [place], [place] - [address] [facility] [address] [facility] [address] [facility] [address] [facility] - [place], [place] - [address] [place] [address] [place] [address] Lab Results Component Value Date HGB 7.7 (L) 04/01/2020 HCT 24.5 (L) 04/01/2020 CHLPL 155 (External Lab) 02/08/2019 TRIG 54 (External Lab) 02/08/2019 HDL 67 (External Lab) 02/08/2019 LDLCHOL 77 (External Lab) 02/08/2019 ALT 29 (External Lab) 02/08/2019 AST 29 (External Lab) 02/08/2019 NA 140 04/01/2020 K 4.9 04/01/2020 CL 108 (H) 04/01/2020 CREATININE 0.87 04/01/2020 TSH 0.592 (External Lab) 02/09/2020 INR 1.0 02/21/2020 * Telephone Encounter - Dana Arce - 08/17/2020 8:35 AM EDT Insurance recently changed. Patient said pharmacy will fill the prescription for 7 days, but a prior auth is needed RA. Pharmacy sent the authorization to Dr. Day yesterday, on 08/16/20. Patientwill also need a new prescription sent to [facility] for the remainder of the month. Please call patient with any questions. documented in this encounter Plan of Treatment Upcoming Encounters Date Type Department Care Team (Latest Contact Info) Description 04/06/2024 11:30 AM EST Hospital Encounter [place] [phone] Cadence Eric MD [facility] [address] 04/06/2024 11:30 AM EST - 04/06/2024 12:50 PM EST Surgery [place] [address] Cadence Eric MD [facility] [place] [address] IMPLANT NEUROSTIMULATOR ELECTRODES, PERIPHERAL NERVE (WRVU 5.76) 04/14/2024 2:30 PM EST Office Visit [facility] [place] [phone] Cadence Eric MD [facility] [place] [address] Scheduled Procedures Name Priority Associated Diagnoses Date/Ti [...] Dr. Jacobson Primary localized osteoarthrosis, lower leg Saphenous neuralgia, right documented in this encounter Care Teams Furnace Filler Relationship Specialty Start Date End Date Salina Herman APRN [address] [place] [address] PCP - General Family Medicine 07/27/20 08/29/20 documented as of this encounter
--- OUTSIDE RECORDS SUMMARY | 2024-04-05 16:27 | XMS_ITS | Encounter Summary ---
Author Organization [facility] [place] [address] Care Team Providers Care Ampoule Washing Machine Operator Name Role Phone Bob Day MD Primary Care Provider [phone] [phone] Reason for Visit * Reason Onset Date Comments Other 07/13/2020 chg of provider form Encounter Details Date Type Department Care Team ([facility] Contact Info) Description 07/13/2020 Telephone Primary Care at [address] [phone] Clarita Diaz Other (chg of provider form) Social History Tobacco Use Types Packs/Day Years [...] encounter Miscellaneous Notes * Telephone Encounter - Vikki Arthur - 07/27/2020 10:31 AM EDT Salina Herman has accepted this former Shay pt She will see Dr Day in October and then start seeing Reynaldo Pt is aware that Salina will not manage pain meds and wants her to go to the pain clinic for this.She said she will discuss this with Dr Day at next appt. Letter sent * Telephone Encounter - Clarita Diaz - 07/13/2020 2:19 PM EST Change of provider form shay to reynaldo documented in this encounter Plan of Treatment Upcoming Encounters Date Type Department Care Team (Latest Contact Info) Description 04/06/2024 11:30 AM EST Hospital Encounter [place]patient [place] [address] Cadence Eric MD [facility] [place] [address] 04/06/2024 11:30 AM EST - 04/06/2024 12:50 PM EST Surgery [place]patient [place] [address] Cadence Eric MD [facility] [place] [address] IMPLANT NEUROSTIMULATOR ELECTRODES, PERIPHERAL NERVE (WRVU 5.76) 04/14/2024 2:30 PM EST Office Visit [place] [address] Cadence Eric MD [facility] [place] [address] Scheduled Procedures Name Priority Associated Diagnoses Date/Ti [...] on filedocumented in this encounter Care Teams Ampoule Washing Machine Operator Relationship Specialty Start Date End Date Bob Day MD [address] [place] [address] PCP - General Family Medicine 08/30/20 02/06/21 documented as of this encounter
--- OUTSIDE RECORDS SUMMARY | 2024-04-05 16:27 | XMS_ITS | Encounter Summary ---
Author Organization [facility] Address [facility] [place] [address] Care Team Providers Care Cashiers Supervisor Name Role Phone Bob Day MD Primary Care Provider [phone] -[phone] Encounter Details Date Type Department Care Team (Late st Contact Info) Description 07/26/2020 Orders Only Primary Care at [address] [phone] Bob Day MD [address] [place] [address] Social History Tobacco Use Types Packs/Day Years [...] AM EST Hospital Encounter [place] [phone] Cadence Eric MD [facility] [place] [address] 04/06/2024 11:30 AM EST - 04/06/2024 12:50 PM EST Surgery [place] [address] Cadence Eric MD [facility] [place] [address] IMPLANT NEUROSTIMULATOR ELECTRODES, PERIPHERAL NERVE (WRVU 5.76) 04/14/2024 2:30 PM EST Office Visit [place] [address] Cadence Eric MD [facility] [place] [address] Scheduled Procedures Name Priority Associated Diagnoses Date/Ti [...] on filedocumented in this encounter Care Teams Cashiers Supervisor Relationship Specialty Start Date End Date Bob Day MD [address] [place] [address] PCP - General Family Medicine 01/18/18 07/26/20 documented as of this encounter
--- OUTSIDE RECORDS SUMMARY | 2024-04-05 16:27 | XMS_ITS | Encounter Summary ---
Author Organization [facility] Address [facility] A[facility]a [facility] [place] [address] Care Team Providers Care Boiler Operator Name Role Phone Bob Day MD Primary Care Provider [phone] -[phone] Encounter Details Date Type Department Care Team (Late st Contact Info) Description 09/05/2020 [place] [address] Leanna Yañez MD [facility] [place] [address] Social History Tobacco Use Types Packs/Day Years [...] Miscellaneous Notes * Telephone Encounter - Leanna Yañez MD - 09/05/2020 6:17 PM EDT Received transfer center phone call from Dr. Dunham at [facility] regarding patient who is a 59-year-old female with past medical history of obesity, chronic pain on chronic opioids, anemia who presented tothe emergency department at [facility] for approximately 2 days of gradual knee pain in the setting of a left TKA 03/19/2020 (Dr. Jacobson). She notes that she has had subjective knee pain and subjective swelling over the past few days. She does report a fever at home however upon checks in the emergency department there she has been afebrile without any tachycardia. She has stable vital signs overall and does not appear sick per the provider. He did obtain labs which demonstrated an ESR of 15 (normal), CRP 0.5 mg/dL, and systemic white blood cell count of 6.7 with no shift. Per the provider's report her clinical exam is very reassuring with no redness, no visible effusion, full range of motion from 0-90 without pain. He notes that she does ambulate with somewhat of a limp but that her range of motion through the knee is painless. He does endorse that she may have a small area directly anterior to the knee that feels somewhat warm but is not red. Her incision is well-healed. The patient's history is also notable for a molar that broke about 11 days ago. She has been taking amoxicillin and went to a dentist yesterday at which time she was diagnosed with an abscess. She has been on antibiotics per the dentist's recommendation. I discussed with the provider at the outside hospital that is difficult to fully evaluate the patient without being able to see her to clinically examine her knee but that in conjunction with the provider's reported exam, her presentation is not overly concerning for acute prosthetic joint infection. Certainly she could have an early or smoldering infection but at this time her labs are reassuring with only a mildly elevated CRP, normal sed rate and white blood cell count. I discussed with the provider that I would recommend he obtain x-rays to rule out any other source of her pain related tothe hardware. Additionally I did recommend that if he is worried about more systemic illness that he should obtain blood cultures. We agreed that overall her clinical picture at this time based on the reported exam is not overly concerning for an infection enough to prompt an aspiration at this time. I did discuss that at this time I would offer the patient follow-up in our outpatient clinic later this week for evaluation. If the patient is extremely uncomfortable with going home tonight, I did recommend that she can present to the emergency department here for clinical exam however our evaluation may be the same. I did discuss giving her strict return precautions regarding any worsening pain, erythema, fevers, chills, inability to ambulate. If any of these were to occur, I did recommend the patient be evaluated in a local emergency department or our emergency department. The provider at the outside hospital agreed with this assessment and plan. All questions were answered. I did discuss the limitations of a telephone consult and not being able to examine the patient myself. documented in this encounter Plan of Treatment Upcoming Encounters Date Type Department Care Team (Latest Contact Info) Description 04/06/2024 11:30 AM EST Hospital Encounter Outpatient [place] [address] Cadence Eric MD [facility] [place] [address] 04/06/2024 11:30 AM EST - 04/06/2024 12:50 PM EST Surgery Outpatient [place] [address] Cadence Eric MD [facility] [place] [address] IMPLANT NEUROSTIMULATOR ELECTRODES, PERIPHERAL NERVE (WRVU 5.76) 04/14/2024 2:30 PM EST Office Visit [place] [address] Cadence Eric MD [facility] [place] [address] Scheduled Procedures Name Priority Associated Diagnoses Date/Ti [...] on filedocumented in this encounter Care Teams Boiler Operator Relationship Specialty Start Date End Date Bob Day MD [address] [place] [address] PCP - General Family Medicine 08/30/20 02/06/21 documented as of this encounter
--- OUTSIDE RECORDS SUMMARY | 2024-04-05 16:27 | XMS_ITS | Encounter Summary ---
Author Organization [facility] [place] [address] Care Team Providers Care Motion Picture Cameraman Name Role Phone Ja Ordaz MD Primary Care Provider Encounter Details Date Type Department Care Team (Late st Contact Info) Description 03/11/2021 Orders [place] [phone] Nicolas Erickson MD [facility] [place] [address] Postlaminectomy syndrome of lumbar region (Primary Dx) [...] AM EST Hospital Encounter [place] [phone] Cadence Eric MD [facility] [place] [address] 04/06/2024 11:30 AM EST - 04/06/2024 12:50 PM EST Surgery [place] [address] Cadence Eric MD [facility] [place] [address] IMPLANT NEUROSTIMULATOR ELECTRODES, PERIPHERAL NERVE (WRVU 5.76) 04/14/2024 2:30 PM EST Office Visit [place] [address] Cadence Eric MD [facility] [place] [address] Scheduled Procedures Name Priority Associated Diagnoses Date/Ti [...] right documented in this encounter Care Teams Motion Picture Cameraman Relationship Specialty Start Date End Date Ja Ordaz MD [address] [place] [address] PCP - General Emergency Medicine 03/11/21 documented as of this encounter
--- OUTSIDE RECORDS SUMMARY | 2024-04-05 16:27 | XMS_ITS | Encounter Summary ---
Author Organization [facility] Address [facility] [place] [address] Care Team Providers Care Agency Service Coordinator Name Role Phone Bob Day MD Primary Care Provider [phone] [phone] Encounter Details Date Type Department Care Team (Late st Contact Info) Description 07/26/2020 Telephone Primary Care at [address] [phone] Karely Foster MA Social History Tobacco Use Types Packs/Day Years [...] encounter Miscellaneous Notes * Telephone Encounter - Karely Foster MA - 07/26/2020 1:40 PM EDT Spoke to pharmacy and confirmed that correct rx was received documented in this encounter Plan of Treatment Upcoming Encounters Date Type Department Care Team (Latest Contact Info) Description 04/06/2024 11:30 AM EST Hospital Encounter Outpatient Surgery Center [facility] [place] [phone] Cadence Eric MD [facility] [place] [address] 04/06/2024 11:30 AM EST - 04/06/2024 12:50 PM EST Surgery Outpatient [place] [address] Cadence Eric MD [facility] [place] [address] IMPLANT NEUROSTIMULATOR ELECTRODES, PERIPHERAL NERVE (WRVU 5.76) 04/14/2024 2:30 PM EST Office Visit [place] [phone] Cadence Eric MD [facility] [place] [address] Scheduled Procedures Name Priority Associated Diagnoses Date/Ti [...] on filedocumented in this encounter Care Teams Agency Service Coordinator Relationship Specialty Start Date End Date Bob Day MD [address] [place] [address] PCP - General Family Medicine 01/18/18 07/26/20 documented as of this encounter
--- OUTSIDE RECORDS SUMMARY | 2024-04-05 16:27 | XMS_ITS | Encounter Summary ---
Author Organization [facility] Address [facility] [place] [address] Care Team Providers Care Senior Analyst Developer Name Role Phone Bob Day MD Primary Care Provider +1 [phone] Reason for Visit * Auth/Cert Specialty Diagnoses / Procedures Referred By Conttom t Referred To Contact Diagnoses Pump Procedures PRO ELECTRONIC PUMP ANALYSIS W REPROGRAMMING AND REFILL BY MD/LEACH RUNNER ELECTRONIC HERNANDEZ PROG., PUMP- DRUG INFUS; W/ REPROGRAM & REFILL REQ (WRVU 0.9) Referral ID Status Reason Start Date Expiration Date Visits Re quested Visits Authorized [id number] 1 1 Encounter Details Date Type Department Care Team (Latest Contact Info) Description 07/09/2020 1:15 PM EST Procedure visit [place] [address] Karl Becker MD [facility] [place] [address] Postlaminectomy syndrome of lumbar region; Presence of [...] Sign Reading Time Taken Comments Blood Pressure 127/72 07/09/2020 1:23 PM EST Pulse 72 07/09/2020 1:23 PM EST Temperature - - Respiratory Rate 18 07/09/2020 1:23 PM EST Oxygen Saturation 99% 07/09/2020 1:23 PM EST Inhaled Oxygen Concentration - - Weight - - Height - - Body Mass Index - - documented in this encounter Progress Notes * Wanda Arredondo MD - 07/09/2020 1:15 PM EST ??INTRATHECAL PUMP REFILL PROCEDURE NOTE WITH REPROGRAMMING Patient Name: Etelvina Cuadra : [id number] MR#: [id number] ?? Case Date: 07/09/2020 ?? Surgeon: Surgeon(s) and Role: * Karl Becker MD - Primary Wanda Arredondo MD - Fellow Present on Admission: ??? Presence of intrathecal pump ?? Postoperative diagnosis: same ?? Procedure(s) (LRB): ELECTRONIC HERNANDEZ PROG., PUMP- DRUG INFUS; W/ REPROGRAM & REFILL MILAGRO DAWSON (WRVU 0.9) (N/A) ? Primary Retail Project Merchandiser: Karl Becker MD ?? Home Designer: Wanda Arredondo MD ?? Reason for Reprogramming: Interrogation to confirm no pump log errors and to refill pump ?? Diagnosis: Post-laminectomy syndrome ?? Functional improvement with the pump: Able to complete ADL's with less pain. She is s/p left knee replacement 03/2020. ?? Side effects from pump: Minor pain at pump site at scar location ?? Changes since last refill: Will keep PTM lockout the same at 3hr with same 5 total doses. ?? Prescription Drug Monitoring Program (PDMP) data: Negative for inconsistencies. ?? Medication contract signed? Yes ?? Physical Examination: ?? Constitutional: Her vital signs were normal and reviewed with the patient. She is in no acute distress. Respiratory: There is no respiratory distress Cardiovascular: Normal heart rate Skin (over the pump): The skin was grossly normal to the area of pain Eyes: EOMI, no scleral icterus Psychological: Normal Abdominal: RLQ scar overlying pump. ?? Pre-Refill Telemetry Programming Reading: Drugs/Concentrations: Morphine 10mg/mL - Preservative Free ??- ?? Daily Dose: 2mg with mPTM 0.2mg q3hr PRN 5/day Brand/Compound: Compound. ?? Post-Refill Telemetry Programming Reading: Drugs/Concentrations: Morphine 10mg/mL - Preservative Free ??- ?? Daily Dose: 2mg with mPTM 0.2mg q3hr PRN 5/day Brand/Compound: Compound. ? Pump Capacity: 40 mL ?? Computer predicted residual volume in pump: 7.1 mL ?? Actual [place] volume: 8 mL ?? Medication or Dose Changes: None ?? Is dose change >30%? No ?? Is concentration of drug different? ??No ?? Empty syringe concentration verified by checker stocker: yes ?? If concentration of drug is different, has a bridge bolus been programmed? n/a. ?? Has any program been used other than simple continuous or bridge bolus and simple continuous? no ?? Infusion Mode: simple continuous. ?? New Alarm Date: 11/13/20 ?? PROCEDURE: Risks and expected side effects were reviewed with patient and her voiced concerns addressed. The printed consent form was signed and witnessed. The following information was verified: ?? Patient Name on RX: yes ?? Drug Name on RX:yes ?? Drug concentration on syringe containing pump refill medication: yes ? Fluoroscopy was used to verify the pumps position. The pump appears to be in the appropriate location and oriented appropriately. ? The pump was accessed via telemetry and the computer predicted residual volume was noted as per above. Then Chlorhexidine prep over the pump refill site was performed. Sterile drapes were applied as provided with the [employer] refill kit. Under ultrasound guidance, a 22 gauge Moraes non-coring needle supplied with the refill kit was inserted through the refill-template into the central refill portof the pump. The pump was aspirated for [...] instilled into the pump according to the wiener packer's directions without difficulty. There was no evidence of over pressurization at the conclusion of the filling process. The Moraes needle was withdrawn and a Band-Aid was applied. The pump was then re-accessed via telemetry and reprogrammed to indicate the refill volume of 40 ml. The unused portion of the m edication was discarded along with the old drug aspirated. ?? Battery alarms reviewed and were appropriately enabled and in working order. ?? Patient tolerated the procedure well and was discharged from the Pain Management Center. Follow-up with Dr. Becker ?? Procedure was performed under direct supervision of my attending physician, Dr. Becker. Wanda Arredondo MD Pain Management Fellow [address] [address] / [facility] documented in this encounter Plan of Treatment Upcoming Encounters Date Type Department Care Team (Latest Contact Info) Description 04/06/2024 11:30 AM EST Hospital Encounter [place] [address] Cadence Eric MD [facility] [place] [address] 04/06/2024 11:30 AM EST - 04/06/2024 12:50 PM EST Surgery [place] [address] Cadence Eric MD [facility] [place] [address] IMPLANT NEUROSTIMULATOR ELECTRODES, PERIPHERAL NERVE (WRVU 5.76) 04/14/2024 2:30 PM EST Office Visit [facility] [place] [address] Cadence Eric MD [facility] [place] [address] Scheduled Procedures Name Priority Associated Diagnoses Date/Ti [...] right documented in this encounter Care Teams Senior Analyst Developer Relationship Specialty Start Date End Date Bob Day MD [address] [place] [address] PCP - General Family Medicine 01/18/18 07/26/20 documented as of this encounter
--- OUTSIDE RECORDS SUMMARY | 2024-04-05 16:27 | XMS_ITS | Encounter Summary ---
Author Organization [facility] Address [facility] [place] [address] Care Team Providers Care Food Service Kitchen Supervisor Name Role Phone Bob Day MD Primary Care Provider [phone] Reason for Visit * Auth/Cert Specialty Diagnoses / Procedures Referred By Conttom t Referred To Contact Diagnoses Pump Procedures PRO ELECTRONIC PUMP ANALYSIS W REPROGRAMMING AND REFILL BY MD/AMBULATORY CARE NURSE ELECTRONIC HERNANDEZ PROG., PUMP- DRUG INFUS; W/ REPROGRAM & REFILL REQ (WRVU 0.9) Referral ID Status Reason Start Date Expiration Date Visits Re quested Visits Authorized [id number] 1 1 Encounter Details Date Type Department Care Team (Latest Contact Info) Description 07/09/2020 12:51 PM EST - 07/09/2020 3:06 PM [facility] Hospital [place] [address] Karl Becker MD [facility] [place] [address] Presence of intrathecal pump Discharge Disposition: Home [...] Sig Dispensed Refills Start Date End Date epinephrine HCl/PF (EPINEPHrine, pf,) 1 mg/mL (1:1,000) Solution Inject as directed. calcium carbonate-vitamin D3 (Os-Nico 500 + D3) 500mg (1,250mg) -600 unit Tablet Take 1 tablet by mouth Daily. 01/16/2016 Bifidobacterium infantis (ALIGN) 4 mg Capsule Take by mouth daily. 2 gummies daily=4MG NARCAN 4 mg/actuation [place], Non-Aerosol instill 1 spray in 1 NOSTRIL if needed for opioid overdose may re... (REFER TO PRESCRIPTION NOTES). 0 12/08/2018 multivitamin with minerals Tablet Take 1 tablet by mouth daily. morphine sulfate/D5W (MORPHINE IN D5W) 1 mg/mL Prefilled Pump [place] Inject as directed. Has intrathecal pump with continuous rate and Has 5 preset prn boluses pt may give herself furosemide (Lasix) 20 mg Tablet Take 1 tablet by mouth daily as needed. 30 tablet 2 07/04/2020 09/04/2022 oxyCODONE (ROXICODONE) 10 mg TabletIndications:Prima ry osteoarthritis of left knee Take 1 tablet by mouth 3 times daily as needed. 84 tablet 06/21/2020 07/18/2020 polyethylene glycoL (Miralax) 17 gram/dose Powder Take by mouth as needed. 09/04/2021 baclofen (Lioresal) 10 mg Tablet Take 1 tablet by mouth 3 times daily. 90 tablet 05/09/2020 09/04/2021 citalopram (CeleXA) 40 mg Tablet Take 1 tablet by mouth daily. Takes 20 mg , splits a 40mg pill in half. 04/02/2020 07/25/2020 senna-docusate (Pericolace) 8.6-50 mg Tablet Take 1 [...] Kit Inject as directed as needed. 09/04/2021 fenofibrate (TRIGLIDE) 160 mg Tablet Take 160 mg by mouth nightly. 11/15/2015 07/25/2020 levothyroxine (SYNTHROID) 100 mcg tablet 100 MCG = 1 Tablet(s), PO, Once daily 03/19/2010 07/25/2020 documented as of this encounter Plan of Treatment Upcoming Encounters Date Type Department Care Team (Latest Contact Info) Description 04/06/2024 11:30 AM EST Hospital Encounter [place] [address] Cadence Eric MD [facility] [place] [address] 04/06/2024 11:30 AM EST - 04/06/2024 12:50 PM EST Surgery [place] [address] Cadence Eric MD [facility] [place] [address] IMPLANT NEUROSTIMULATOR ELECTRODES, PERIPHERAL NERVE (WRVU 5.76) 04/14/2024 2:30 PM EST Office Visit [place] [address] Cadence Eric MD [facility] [place] [address] Scheduled Procedures Name Priority Associated Diagnoses Date/Ti [...] Priority Date/Time Associated Diagnosis Comments Anal Inf Claim Taker W ReproRefil(35892) Pump documented in this encounter Visit Diagnoses Diagnosis Presence of intrathecal pump Presence of intrathecal pump Saphenous neuralgia, right documented in this encounter Care Teams Food Service Kitchen Supervisor Relationship Specialty Start Date End Date Bob Day MD [address] [place] [address] PCP - General Family Medicine 01/18/18 07/26/20 documented as of this encounter
--- OUTSIDE RECORDS SUMMARY | 2024-04-05 16:27 | XMS_ITS | Encounter Summary ---
Author Organization [facility] Address [facility] [place] [address] Care Team Providers Care Application Technical Designer Name Role Phone Bob Day MD Primary Care Provider [phone] Encounter Details Date Type Department Care Team (Late st Contact Info) Description 07/18/2020 External Results [place] [phone] Karl Becker MD [facility] [place] [address] Social History Tobacco Use Types Packs/Day Years [...] AM EST Hospital Encounter Outpatient [place] [phone] Cadence Eric MD [facility] [place] [address] 04/06/2024 11:30 AM EST - 04/06/2024 12:50 PM EST Surgery [place]patient [place] [address] Cadence Eric MD [facility] [place] [address] IMPLANT NEUROSTIMULATOR ELECTRODES, PERIPHERAL NERVE (WRVU 5.76) 04/14/2024 2:30 PM EST Office Visit [place] [address] Cadence Eric MD [facility] [place] [address] Scheduled Procedures Name Priority Associated Diagnoses Date/Ti [...] Associated Diagnosis Comments INTRATHECAL PUMP REFILL Routine 07/09/2020 documented in this encounter Results * INTRATHECAL PUMP REFILL (07/09/2020) Karl Becker MD PROCEDURE/MINOR SURG ICAL ORDERABLES documented in this encounter Visit Diagnoses Not on filedocumented in this encounter Care Teams Application Technical Designer Relationship Specialty Start Date End Date Bob Day MD [address] [place] [address] PCP - General Family Medicine 01/18/18 07/26/20 documented as of this encounter
--- OUTSIDE RECORDS SUMMARY | 2024-04-05 16:27 | XMS_ITS | Encounter Summary ---
[place] [address] Care Team Providers Care Special Education Administrator Name Role Phone Ja Ordaz MD Primary Care Provider [phone] Encounter Details Date Type Department Care Team (Late st Contact Info) Description 03/11/2021 Telephone [place] [phone] Ceec Serrano, RN Social History Tobacco Use Types Packs/Day [...] encounter Miscellaneous Notes * Telephone Encounter - Cece Serrano RN - 03/11/2021 2:25 PM EDT as called and notified. Contact made with patient or publications sales representative as identified in contacts 1. Patient instructed to arrive at 12:30 on 03/13/21 with their commercial trailer truck driver for their pump reprogramming and refill procedure. Please plan to spend about 2 hours at the center. (3 hours for RFA) 2. Has pt started any new medications or supplements in the past two weeks? No 3. Have any of the following occurred within the two weeks before the procedure date? a. Patient is having a Covid vaccine or other vaccine No b. Patient has been exposed to anybody with a contagious illness such as Covid, flu, No c. Patient is taking antibiotics to treat an infection No d. Patient has any skin rashes, breakdown, blisters or open wounds No e. Patient has had any hospitalizations, ED visits, surgery, other procedure, dental procedure No f. Patient has taken oral steroids or had a steroid injection No g. Does patient have any of the following symptoms that are NEW and NOT explained by another healthcondition: fever or chills, cough, shortness of breath or difficulty breathing, fatigue, muscle or body aches, headache, new loss of taste or smell, sore throat, congestion or runny nose, nausea or vo miting, diarrhea. No If yes, the patient has been directed to the [employer] hotline for testing prior to their procedure. (route telephone note to: [facility] covid 19 nurse triage with routing comment stating pt needs covid test prior to procedure and give date of procedure, add name and MRN to tracking tool). h. Has the patient's pain resolved or significantly improved such as a rating of 3/10 or less? No 4. Was patient instructed to stop any medications? No if yes: a. Name of medication(s): b. Confirm date of last dose: 5. Is patient having a nerve block: No a. If yes instructed to not take any pain medication for 12 hours before your procedure. 6. Patient instructed to take any prescribed medications that they were not told to stop, especially blood pressure medication, because their procedure may be cancelled if their blood pressure is toohigh. 7. Was patient instructed to follow NPO guidelines: No if yes, the following instructions were reviewed: a. You may eat up to 6 hours before your procedure b. You may have clear liquids only up to 2 hours before your procedure: water, apple juice, nolberto mariann, sprite, popsicles, broth, tea or coffee plain or with sweetener, absolutely no dairy products, no milk including soy, oat, almond. 8. IF RFA: Does patient have a pacemaker? No a. If yes, document that cardiology was called and notified. 9. Additional notes if applicable: Patient expressed understanding and agreement with instructions Yes Patient denies further questions Yes documented in this encounter Plan of Treatment Upcoming Encounters Date Type Department Care Team (Latest Contact Info) Description 04/06/2024 11:30 AM EST Hospital Encounter Outpatient [place] [address] Cadence Eric MD [facility] [place] [address] 04/06/2024 11:30 AM EST - 04/06/2024 12:50 PM EST Surgery Outpatient [place] [address] Cadence Eric MD [facility] [place] [address] IMPLANT NEUROSTIMULATOR ELECTRODES, PERIPHERAL NERVE (WRVU 5.76) 04/14/2024 2:30 PM EST Office Visit [place] [address] Cadence Eric MD [facility] [place] [address] Scheduled Procedures Name Priority Associated Diagnoses Date/Ti [...] on filedocumented in this encounter Care Teams Special Education Administrator Relationship Specialty Start Date End Date Ja Ordaz MD [address] [place] [address] PCP - General Emergency Medicine 03/11/21 documented as of this encounter
--- OUTSIDE RECORDS SUMMARY | 2024-04-05 16:27 | XMS_ITS | Encounter Summary ---
Author Organization [facility] Address [facility] [place] [address] Care Team Providers Care Currency Exchange Specialist Name Role Phone Bob Day MD Primary Care Provider [phone] Reason for Visit * Reason Onset Date Comments Questions 09/10/2020 Encounter Details Date Type Department Care Team (Late Contact Info) Description 09/10/2020 Telephone Primary Care at [address] [phone] Sharona Mallory Questions Social History Tobacco Use Types Packs/Day [...] encounter Miscellaneous Notes * Telephone Encounter - Moshe Triana RN - 09/10/2020 4:03 PM EDTSummary: Oxycodone for tooth removal? I called Etelvina regarding her question of whether she can take some of her Oxycodone prescribed for breakthrough back pain not controlled by her intrathecal MSO4 pump for pain after a tooth extraction on 09/10. I advised Pt to use OTC pain meds to control any tooth pain. * Telephone Encounter - Sharona Mallory - 09/10/2020 3:07 PM EDT Patient is having a tooth pulled at 4pm. She question if it is too sore, can she take more of her Oxycodone if needed? Dr Day patient documented in this encounter Plan of Treatment Upcoming Encounters Date Type Department Care Team (Latest Contact Info) Description 04/06/2024 11:30 AM EST Hospital Encounter Outpatient [place] [address] Cadence Eric MD [facility] [place] [address] 04/06/2024 11:30 AM EST - 04/06/2024 12:50 PM EST Surgery Outpatient [place] [address] Cadence Eric MD [facility] [place] [address] IMPLANT NEUROSTIMULATOR ELECTRODES, PERIPHERAL NERVE (WRVU 5.76) 04/14/2024 2:30 PM EST Office Visit [facility] [place] [address] Cadence Eric MD [facility] [place] [address] Scheduled Procedures Name Priority Associated Diagnoses Date/Ti [...] on filedocumented in this encounter Care Teams Currency Exchange Specialist Relationship Specialty Start Date End Date Bob Day MD [address] [place] [address] PCP - General Family Medicine 08/30/20 02/06/21 documented as of this encounter
--- OUTSIDE RECORDS SUMMARY | 2024-04-05 16:27 | XMS_ITS | Encounter Summary ---
Author Organization [facility] [place] [address] Care Team Providers Care Washroom Cleaner Name Role Phone VirgilSalina Marlene WHITFIELD Primary Care Provider [phone] Encounter Details Date Type Department Care Team (Late st Contact Info) Description 08/22/2020 Orders Only Primary Care at [address] [address] Bob Day MD [address] [place] [address] s/p Left Total Knee Arthroplasty - 03/29/2020 [...] AM EST Hospital Encounter [place]patient [place] [address] Cadence Eric MD [facility] [place] [address] 04/06/2024 11:30 AM EST - 04/06/2024 12:50 PM EST Surgery [place]patient [place] [address] Cadence Eric MD [facility] [place] [address] IMPLANT NEUROSTIMULATOR ELECTRODES, PERIPHERAL NERVE (WRVU 5.76) 04/14/2024 2:30 PM EST Office Visit [place] [address] Cadence Eric MD [facility] [place] [address] Scheduled Procedures Name Priority Associated Diagnoses Date/Ti [...] right documented in this encounter Care Teams Washroom Cleaner Relationship Specialty Start Date End Date Salina Herman, PROGRAM DIRECTOR/MUSIC DIRECTOR ANJU ARMENTA [facility] [place] [address] PCP - General Family Medicine 07/27/20 08/29/20 documented as of this encounter
--- OUTSIDE RECORDS SUMMARY | 2024-04-05 16:27 | XMS_ITS | Encounter Summary ---
[place] [address] Care Team Providers Care Helminthologist Name Role Phone Bob Day MD Primary Care Provider [phone] Reason for Visit * Reason Onset Date Comments Triage 09/03/2020 Encounter Details Date Type Department Care Team (Late st Contact Info) Description 09/03/2020 Telephone [place] [phone] Bishop Gregory Triage Social History Tobacco Use Types Packs/Day Years [...] Telephone Encounter - Sarah Barahona RN - 09/03/2020 2:49 PM EDT Prescription has been created and sent to [facility] in [place], [place]. Patient notified via phone call at this time. * Telephone Encounter - Bishop Gregory - 09/03/2020 2:25 PM EDT Etelvina Cuadra calls back and reports that her dental office requires a letter clearing her to have dental work done with them. Letter drafted and faxed today to [facility] F: [phone] * Telephone Encounter - Bishop Gregory - 09/03/2020 1:29 PM EDT Etelvina Cuadra is a 59 y.o. female who is s/p L TKA DOS: 03/29/[address] Jacobson. She calls today to report that she will be seeing her dental office tomorrow for dental work due toa fractured tooth. She is still with the 6 month period and will be required to take ABX before the dental procedure. She is allergic to tetracycline. Updated preferred pharmacy to [facility] in [facility]. Routed to Nurse pool to have RX for ABX placed. documented in this encounter Plan of Treatment Upcoming Encounters Date Type Department Care Team (Latest Contact Info) Description 04/06/2024 11:30 AM EST Hospital Encounter [place] [address] Cadence Eric MD [facility] [place] [address] 04/06/2024 11:30 AM EST - 04/06/2024 12:50 PM EST Surgery [place] [address] Cadence Eric MD [facility] [place] [address] IMPLANT NEUROSTIMULATOR ELECTRODES, PERIPHERAL NERVE (WRVU 5.76) 04/14/2024 2:30 PM EST Office Visit [place] [address] Cadence Eric MD [facility] [place] [address] Scheduled Procedures Name Priority Associated Diagnoses Date/Ti me IMPLANT NEUROSTIMULATOR ELECTRODES, PERIPHERAL NERVE (WRVU 5.76) Yes Saphenous neuralgia, right 04/06/2024 11:30 AM EST IMPLANT NEUROSTIMULATOR ELECTRODES, PERIPHERAL NERVE (WRVU 5.76) Saphenous neuralgia, 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 Neuropathic pain COLONOSCOPY,SCREENING (WRVU 3.26) Health maintenance examination-screening colo documented as of this encounter Visit Diagnoses Diagnosis Primary osteoarthritis of left knee Primary localized osteoarthrosis, lower leg Saphenous neuralgia, right documented in this encounter Care Teams Helminthologist Relationship Specialty Start Date End Date Bob Day MD [address] [place] [address] PCP - General Family Medicine 08/30/20 02/06/21 documented as of this encounter
--- OUTSIDE RECORDS SUMMARY | 2024-04-05 16:27 | XMS_ITS | Encounter Summary ---
Author Organization [facility] [place] [address] Care Team Providers Care Business Manager Name Role Phone Bob Day MD Primary Care Provider [phone] Encounter Details Date Type Department Care Team (Late st Contact Info) Description 10/31/2020 Ancillary Procedure Radiology [facility] at [facility] [place] [phone] Ja Ordaz MD [address] [place] [address] Social History Tobacco Use Types Packs/Day Years [...] AM EST Hospital Encounter [place] [phone] Cadence Eric MD [facility] [place] [address] 04/06/2024 11:30 AM EST - 04/06/2024 12:50 PM EST Surgery [place] [address] Cadence Eric MD [facility] [place] [address] IMPLANT NEUROSTIMULATOR ELECTRODES, PERIPHERAL NERVE (WRVU 5.76) 04/14/2024 2:30 PM EST Office Visit [place] [address] Cadence Eric MD [facility] [place] [address] Scheduled Procedures Name Priority Associated Diagnoses Date/Ti [...] Associated Diagnosis Comments FILM LIBRARY STORAGE ONLY MAMMO Routine 10/31/2020 12:00 AM EDT documented in this encounter Results * Film Library- Storage Only Mammo (10/31/2020 12:00 AM EDT) Narrative [facility] - 06/03/2022 1:46 PM EST This exam is auto-finalizing. It's purpose is for storage only. Ja Ordaz MD IMG FILM LIBRARY ORD ERABLES [place], [place] documented in this encounter Visit Diagnoses Not on filedocumented in this encounter Care Teams Business Manager Relationship Specialty Start Date End Date Bob Day MD [address] [place] [address] PCP - General Family Medicine 08/30/20 02/06/21 documented as of this encounter
--- OUTSIDE RECORDS SUMMARY | 2024-04-05 16:27 | XMS_ITS | Encounter Summary ---
Author Organization [facility] Address [facility] A[facility]a [facility] [place] [address] Care Team Providers Care Dental Amalgam Processor Name Role Phone Bob Day MD Primary Care Provider +1 [phone] Reason for Visit * Reason Comments Follow-up gradual knee pain in the setting of a left TKA 03/19/2020 (Dr. Jacobson). * Surgical (Urgent) - Closed Specialty Diagnoses / Procedures Referred By Cindy wooten Referred To Contact Orthopaedics Diagnoses left knee pain and swelling X2 days s/p L TKA 03/19/2020 (Kavon/Aj) Dl Tobin MD [facility] [place] [address] [facility] [address] [place] [phone] Referral ID Status Reason Start Date Expiration Date Visits Re quested Visits Authorized [id number] Closed 09/06/2020 09/06/2021 1 1 Encounter Details Date Type Department Care Team (Late st Contact Info) Description 09/07/2020 11:00 AM EDT Office [place] [address] s/p Left Total Knee Arthroplasty - 03/29/2020 [...] Sign Reading Time Taken Comments Blood Pressure 123/61 09/07/2020 11:09 AM EDT Pulse 68 09/07/2020 11:09 AM EDT Temperature - - Respiratory Rate - - Oxygen Saturation - - Inhaled Oxygen Concentration - - Weight 104.3 kg (230 lb) 09/07/2020 11:09 AM EDT Height 152.4 cm (5') 09/07/2020 11:09 AM EDT Body Mass Index 44.92 09/07/2020 11:09 AM EDT documented in this encounter Progress Notes * Gian Ulloa MD - 09/07/2020 11:00 AM EDT Orthopaedic Surgery Consult Note Chief Complaint: Dental abscess in setting of L TKA 03/12/20 History of Present Illness: Etelvina Cuadra is a 59 y.o. female with history of obesity, chronic pain on opioids, and anemia status post left total knee arthroplasty 03/19/[address] D[address]. Jacobson & Aj. Her postoperative period has been uneventful, and she reports dramatically improved function with reduced pain since her surgery. She was diagnosed with a dental abscess Thursday09/04/2020 and was started on amoxicillin 500 mg 4 times daily. Her dentist has plans for an extraction, scheduled 09/10/2020. At the time of development of her abscess, she reported minor constitutional symptoms including headache and subjective fever. She denied chills, nausea, vomiting, or night sweats. She also expressed concern of possible increased swelling in her operative knee and mild pain, but denied any redness or recent activity limitations. Due to these concerns, [facility]. Labs demonstrated normal ESR (15), mildly elevated CRP (5), and normal WBC (6.7). She reportedly demonstrated full ROM 0-10 without pain and her knee appeared benign. However, given that she had not been examined by an orthopaedic surgeon, she was instructed to follow up in the [facility] orthopaedic resident clinic. Today, she reports minor knee stifness but denies pain. She is feeling well systemically and reports that her headache and subjective fever have resolved. She reports full range of motion in her knee and no changes in activity. She is excited for her dentist to remove her tooth as planned. Past Medical History: Patient Active Problem List Diagnosis Code ??? [...] pump Z97.8 ??? Anxiety and depression F41.9, F32.9 ??? HLD (hyperlipidemia) E78.5 ??? Morbid obesity E66.01 ??? Osteoarthritis of left knee M17.12 ??? s/p Left Total Knee Arthroplasty - 03/29/2020 Dr. Jacobson M17.12 ??? Allergic rhinitis J30.9 Past Surgical History: Past Surgical History: Procedure Laterality Date ??? BACK SURGERY ??? IMPLANT OR REPLACE DEVICE FOR INTRATHECAL INFUSION, SUBQ RESERVOIR ??? ORTHOPEDIC SURGERY ??? PRO COLONOSCOPY, BIOPSY 10/07/2011 COLONOSCOPY FLEXIBLE, WITH BX performed by NIKKI MAYORGA at [facility] ENDOSCOPY ??? PRO COLONOSCOPY, DIAGNOSTIC 09/23/2011 COLONOSCOPY, DIAGNOSTIC performed by NIKKI MAYORGA at [facility] ENDOSCOPY ??? PRO ELECTRONIC PUMP ANALYSIS W REPROGRAMMING AND REFILL BY /NAHID N/A 03/30/2019 ELECTRONIC HERNANDEZ PROG., PUMP- DRUG INFUS; W/ REPROGRAM & REFILL REQ (WRVU 0.9) performed by Karl Becker MD at [facility] PAIN MGMT MSO ??? PRO ELECTRONIC PUMP ANALYSIS W REPROGRAMMING AND REFILL BY /NAHID N/A 12/05/2019 ELECTRONIC HERNANDEZ PROG., PUMP- DRUG INFUS; W/ REPROGRAM & REFILL REJohn DAWSON (WRVU 0.9) performed by Karl Becker MD at [facility] PAIN MGMT MSO ??? PRO ELECTRONIC PUMP ANALYSIS W REPROGRAMMING AND REFILL BY /NAHID N/A 03/12/2020 ELECTRONIC HERNANDEZ PROG., PUMP- DRUG INFUS; W/ REPROGRAM & REFILL MILAGRO DAWSON (WRVU 0.9) performed by Karl Becker MD at [facility] PAIN MGMT MSO ??? PRO IMP SPINAL CANAL CATH Midline 03/23/2019 IMPLANT, REV OR REP TUNNELED INTRATHACAL OR EPIDURAL CATHETER (WRVU 6.05) performed by Karl Becker MD at [facility] MAIN OR ??? PRO INSERT/ REPLACE INFUSN PUMP, PROGRAMMABLE Right 03/23/2019 IMPLANT OR REPLACE PROG. PUMP-DRUG INFUSION (WRVU 5.6) performed by Melani Darden MD at [facility] ADEEL ??? PRO LAP, CHOLECYSTECTOMY/GRAPH N/A 10/18/2016 LAPAROSCOPIC CHOLECYSTECTOMY WITH CHOLANGIOGRAM (WRVU 11.47) performed by Tasia Umaña MD at [facility] MAIN OR ??? PRO LAP, VENTRAL HERNIA REPAIR, INCARCERATED N/A 07/12/2018 LAPAROSCOPIC HERNIA, VENTRAL, INCARCERATED, W-WO MESH (WRVU 14.94) performed by Izzy Blanco MD at [facility] MAIN OR ??? PRO TOTAL KNEE ARTHROPLASTY Left 03/29/2020 TOTAL KNEE ARTHROPLASTY (WRVU 20.72) performed by Maykel Jacobson MD at [facility] MAIN OR Allergies Allergen Reactions ??? Peanut Anaphylaxis ??? [...] Tetracyclines Itching ??? Wool Itching and Rash Current Outpatient Medications on File Prior to Visit Medication Sig Dispense Refill ??? amoxicillin (AMOXIL) 500 mg Tablet Take 4 tablets by mouth See Admin Instructions. Please take 2000mg of Amoxicillin 1 hour prior to Dental Procedure 20 tablet 0 ??? oxyCODONE (ROXICODONE) 10 mg Tablet Take 1 tablet by mouth 3 times daily as needed. 63 tablet 0 ??? levothyroxine (Synthroid) 100 mcg [...] mg Capsule Take by mouth daily. ??? multivitamin with minerals Tablet Take 1 tablet by mouth daily. ??? morphine 100 % Powd 10 mg/mL by Intrathecal route continuous. 42 mL 0 ??? morphine sulfate/D5W (MORPHINE IN D5W) 1 mg/mL Prefilled Pump [place] Inject as directed. ??? NARCAN 4 mg/actuation [place], Non-Aerosol instill 1 spray in 1 NOSTRIL if needed for opioid overdose may re... (REFER TO PRESCRIPTION NOTES). 0 ??? EPINEPHrine 1 mg/mL Kit Inject as directed as needed. No current facility-administered medications on file prior to visit. Review of Systems: As per HPI, otherwise negative Objective: Temp: -- Heart Rate: [68] Resp: -- BP: (123)/(61) SpO2: -- Heart Rate from SpO2: -- Gen: Resting comfortably in NAD, AOx3, answering questions appropriately. HEENT: NC, AT. CV: Regular rate. No murmurs, rubs, or gallops. Pulm: Normal respiratory effort on room air. Skin: Intact Psych: Normal mood and pleasant affect. Right Lower Extremity Exam: No ecchymosis, erythema, or overlying skin changes Well-healed scar over anterior knee Knee slightly warmer than contralateral knee but not hot No effusion in knee / ankle No TTP pelvis, hip, femur, knee, tib/fib, ankle, foot Painless range of motion of Hip / knee / ankle Knee ROM 0-90 without discomfort Sensation intact to light touch in Saphenous/Sural/LFC/Femoral/MP/LP/T/DP/SP distributions Motor intact hip flexion/extension, knee flexion/extension, ankle flexion/extension, EHL/FHL/TA Brisk capillary refill distally 2+ DP/PT pulses Left Lower Extremity Exam: No ecchymosis, erythema, or overlying skin changes No effusion in knee / ankle No TTP pelvis, hip, femur, knee, tib/fib, ankle, foot Painless range of motion of Hip / knee / ankle Sensation intact to light touch in Saphenous/Sural/LFC/Femoral/MP/LP/T/DP/SP distributions Motor intact hip flexion/extension, knee flexion/extension, ankle flexion/extension, EHL/FHL/TA Brisk capillary refill distally 2+ DP/PT pulses Labs: None Imaging: Xray L knee (09/07/20): Radiographs demonstrate presence of total knee arthroplasty in appropriate alignment without evidence of periprosthetic fracture or implant loosening. Assessment/Plan: 59 y.o. female who presents with recent hx of L knee pain s/p L TKA 03/19/2020 in setting of dental abscess. Pain resolved and knee appears benign on exam with full range of movement and no erythema. Patient will continue amoxicillin 500mg QID per dentist until tooth can be extracted 09/10/2020. Plan to f/u with ortho in March 2021 at 1 yr post-op. Patient was instructed to call the clinic if she develops recurring knee pain, redness, inability to bear weight, fever, or chills. Gian Ulloa MD Orthopaedic Surgery, 7[address] Future Appointments Date Time Provider Department Center 10/31/2020 1:00 PM Bob Day MD [facility] documented in this encounter Plan of Treatment Upcoming Encounters Date Type Department Care Team (Latest Contact Info) Description 04/06/2024 11:30 AM EST Hospital Encounter [place]patient [place] [address] Cadence Eric MD [facility] [place] [address] 04/06/2024 11:30 AM EST - 04/06/2024 12:50 PM EST Surgery [place]patient [place] [address] Cadence Eric MD [facility] [place] [address] IMPLANT NEUROSTIMULATOR ELECTRODES, PERIPHERAL NERVE (WRVU 5.76) 04/14/2024 2:30 PM EST Office Visit [place] [address] Cadence Eric MD [facility] [place] [address] Scheduled Procedures Name Priority Associated Diagnoses Date/Ti [...] documented in this encounter Care Teams Dental Amalgam Processor Relationship Specialty Start Date End Date Bob Day MD [address] [place] [address] PCP - General Family Medicine 08/30/20 02/06/21 documented as of this encounter
--- OUTSIDE RECORDS SUMMARY | 2024-04-05 16:27 | XMS_ITS | Encounter Summary ---
Author Organization [facility] Address [facility] [place] [address] Care Team Providers Care Production Consultant Name Role Phone Bbo Day MD Primary Care Provider [phone] [phone] Encounter Details Date Type Department Care Team (Latest Contact Info) Description 09/07/2020 10:27 AM EDT - 09/07/2020 11:59 PM EDT Hospital Encounter XRay at [address] [address] Maykel Jacobson MD [facility] [place]IC [place] [address] History of total knee replacement, left; s/p Left Total Knee Arthroplasty - 03/29/2020 Dr. Jacobson Discharge Disposition: Home Social History Tobacco Use [...] daily. 2 gummies daily=4MG NARCAN 4 mg/actuation [place], Non-Aerosol instill 1 spray in 1 NOSTRIL if needed for opioid overdose may re... (REFER TO PRESCRIPTION NOTES). 0 12/08/2018 multivitamin with minerals Tablet Take 1 tablet by mouth daily. morphine sulfate/D5W (MORPHINE IN D5W) 1 mg/mL Prefilled Pump [place] Inject as directed. Has intrathecal pump with continuous rate and Has 5 preset prn boluses pt may give herself amoxicillin (AMOXIL) 500 mg Tablet Take 1 tablet by mouth 4 times daily for 2 days. 8 tablet 09/07/2020 09/09/2020 amoxicillin (AMOXIL) 500 mg TabletIndications:Prima ry osteoarthritis of left knee Take 4 tablets by mouth See Admin Instructions. Please take 2000mg of Amoxicillin 1 hour prior to Dental Procedure 20 tablet 09/03/2020 03/12/2022 oxyCODONE (ROXICODONE) 10 mg TabletIndications:Prima ry osteoarthritis of left knee Take 1 tablet by mouth 3 times daily as needed. 63 tablet 08/22/2020 09/10/2020 citalopram (CeleXA) 40 mg Tablet Take 1 [...] AM EST Hospital Encounter [place] [address] Cadence Eric MD [facility] [place] [address] 04/06/2024 11:30 AM EST - 04/06/2024 12:50 PM EST Surgery [place] [address] Cadence Eric MD [facility] [place] [address] IMPLANT NEUROSTIMULATOR ELECTRODES, PERIPHERAL NERVE (WRVU 5.76) 04/14/2024 2:30 PM EST Office Visit [place] [address] Cadence Eric MD [facility] [place] [address] Scheduled Procedures Name Priority Associated Diagnoses Date/Ti [...] EST History of total knee replacement, left XR KNEE AP & LAT LEFT Routine 09/07/2020 10:53 AM EDT s/p Left Total Knee Arthroplasty - 03/29/2020 Dr. Jacobson documented in this encounter Results * XR Knee Standing Alignment AP Lat [place] Left (06/05/2021 1:21 PM EST) Anatomical Region [...] questions please contact the health child care that requested your imaging first. ? Electronically signed by: Yanni Crowder MD, [facility] ([phone]), at 06/05/2021 3:50 PM Narrative 06/05/2021 3:50 [...] have questions please contactthe health child care that requested your imaging first. Electronically signed by: Yanni Crowder MD, [facility]([phone]), at 06/05/2021 3:50 PM Maykel Jacobson MD IMG DX ORDERABLES * XR Knee 1-2 Views Left (Generic) (09/07/2020 10:53 AM EDT) Anatomical Region Laterality Modality Knee Left Digital Radiogra phy Narrative 09/07/2020 11:15 AM EDT EXAMINATION: XR KNEE 1-2 VIEWS LEFT (GENERIC) CLINICAL HISTORY: left knee TKA. ? change from previous x-ray TECHNIQUE: 2 views LEFT knee Standing AP both knees and lateral view of left knee COMPARISON: November 2019 and April 2020 radiographs. FINDINGS: Right knee [1 view] A medial unicompartment arthroplasty is present. Alignment: The prosthesis is unchanged in alignment. Complication: There is no loosening or fracture. The osteophytes and lateral joint space are unchanged Left knee [2 views] A left total knee arthroplasty is present. Alignment: The prosthesis is unchanged in alignment. Complication: There is no loosening or fracture. Soft tissues: There is a residual effusion and decreased soft tissue swelling. Impression Unchanged and Uncomplicated left total knee and right medial unicompartment arthroplasties. Thank you for letting us participate in the care of this patient. ??If you are a health care provider and have any questions regarding this report, please contact the number below. ??For patients who have questions please contact the health child care that requested your imaging first. ? Electronically signed by: Yanni Crowder MD, [facility] ([phone]), at 09/07/2020 11:15 AM Procedure Note Yanni Crowder MD - 09/07/2020 EXAMINATION: XR KNEE 1-2 VIEWS LEFT (GENERIC) CLINICAL HISTORY: left knee TKA. ? change from previous x-ray TECHNIQUE: 2 views LEFT knee Standing AP both knees and lateral view of left knee COMPARISON: November 2019 and April 2020 radiographs. FINDINGS: Right knee [1 view] A medial unicompartment arthroplasty is present. Alignment: The prosthesis is unchanged in alignment. Complication: There is no loosening or fracture. The osteophytes and lateral joint space are unchanged Left knee [2 views] A left total knee arthroplasty is present. Alignment: The prosthesis is unchanged in alignment. Complication: There is no loosening or fracture. Soft tissues: There is a residual effusion and decreased soft tissueswelling. Impression Unchanged and Uncomplicated left total knee and right medialunicompartment arthroplasties. Thank you for letting us participate in the care of this patient. If youare a health care provider and have any questions regarding this report,please contact the number below. For patients who have questions please contactthe health child care that requested your imaging first. Electronically signed by: Yanni Crowder MD, [facility]([phone]), at 09/07/2020 11:15 AM Taina Serrano APRN IMG DX ORDERABLES documented in this encounter Visit Diagnoses Diagnosis History of total knee replacement, left s/p Left Total Knee Arthroplasty - 03/29/2020 Dr. Jacobson Primary localized osteoarthrosis, lower leg Saphenous neuralgia, right documented in this encounter Care Teams Production Consultant Relationship Specialty Start Date End Date Bob Day MD [address] [place] [address] PCP - General Family Medicine 08/30/20 02/06/21 documented as of this encounter
--- OUTSIDE RECORDS SUMMARY | 2024-04-05 16:27 | XMS_ITS | Encounter Summary ---
Author Organization [facility] Address [facility] [place] [address] Care Team Providers Care Diesel Crane Operator Name Role Phone Salina Herman APRN Primary Care Provider +1- [phone] Reason for Visit * Reason Onset Date Comments Medication Refill 08/15/2020 Encounter Details Date Type Department Care Team (Late st Contact Info) Description 08/15/2020 Refill Primary Care at [facility] [address] [place] [address] Bob Day MD [address] [place] [address] s/p Left Total Knee Arthroplasty - 03/29/2020 [...] Telephone Encounter - Brisa Beard CMA - 08/15/2020 1:33 PM EDT Caller: Etelvina Cuadra Relationship to Patient: self Best number to be reached: Rx Renewal: PCP: Salina Herman APRN Last encounter this office: 07/02/2020 Last relevant appointment: 07/02/2020 w/Dr. Day Next appt this provider: 10/31/2020 Last Prescription Fill Date: 07/20/2020 Number Dispensed and Refills: 84 w/no refs Medication and Dose: Oxycodone 10mg UDS: 07/02/2020 Contract: 07/02/2020 [place] searched: Opioid [place]MP 04/03/2020 02/21/2020 06/24/2018 [place] Query Date 04/03/2020 02/21/2020 07/15/2018 [place] Query Date 04/03/2020 02/21/2020 07/15/2018 [place] PDMP Query Date 04/03/2020 02/21/2020 07/15/2018 Send to Pharmacy: [facility] [place], [place] - [address] [place] [id number] Lab Results Component Value Date HGB 7.7 [...] 0.592 (External Lab) 02/09/2020 INR 1.0 02/21/2020 documented in this encounter Plan of Treatment Upcoming Encounters Date Type Department Care Team (Latest Contact Info) Description 04/06/2024 11:30 AM EST Hospital Encounter Outpatient [place] [address] Cadence Eric MD [facility] [place] [address] 04/06/2024 11:30 AM EST - 04/06/2024 12:50 PM EST Surgery Outpatient [place] [address] Cadence Eric MD [facility] [place] [address] IMPLANT NEUROSTIMULATOR ELECTRODES, PERIPHERAL NERVE (WRVU 5.76) 04/14/2024 2:30 PM EST Office Visit [place] [phone] Cadence Eric MD [facility] [place] [address] Scheduled Procedures Name Priority Associated Diagnoses Date/Ti [...] right documented in this encounter Care Teams Diesel Crane Operator Relationship Specialty Start Date End Date Salina Herman APRN [address] [place] [address] PCP - General Family Medicine 07/27/20 08/29/20 documented as of this encounter
--- OUTSIDE RECORDS SUMMARY | 2024-04-05 16:27 | XMS_ITS | Encounter Summary ---
[place] [address] Care Team Providers Care Irish Moss Gatherer Name Role Phone Salina Herman Marlene WHITFIELD Primary Care Provider +1- [phone] Reason for Visit * Reason Onset Date Comments Medication Refill 08/22/2020 Encounter Details Date Type Department Care Team (Late st Contact Info) Description 08/22/2020 Refill Primary Care at [address] [address] Sharona Mallory s/p Left Total Knee Arthroplasty - 03/29/2020 [...] encounter Miscellaneous Notes * Telephone Encounter - Sharona Mallory - 08/22/2020 10:45 AM EDT Patient stated that refill is for Thursday documented in this encounter Plan of Treatment Upcoming Encounters Date Type Department Care Team (Latest Contact Info) Description 04/06/2024 11:30 AM [facility] Hospital Encounter Outpatient Surgery [place] [address] Cadence Eric MD [facility] [place] [address] 04/06/2024 11:30 AM EST - 04/06/2024 12:50 PM EST Surgery Outpatient [place] [address] Cadence Eric MD [facility] [address] IMPLANT NEUROSTIMULATOR ELECTRODES, PERIPHERAL NERVE (WRVU 5.76) 04/14/2024 2:30 PM EST Office Visit [facility] [place] [address] Cadence Eric MD [facility] [address] Scheduled Procedures Name Priority Associated Diagnoses Date/Ti [...] right documented in this encounter Care Teams Irish Moss Gatherer Relationship Specialty Start Date End Date Salina Herman APRN [address] [place] [address] PCP - General Family Medicine 07/27/20 08/29/20 documented as of this encounter
--- OUTSIDE RECORDS SUMMARY | 2024-04-05 16:27 | XMS_ITS | Encounter Summary ---
Author Organization [facility] [place] [address] Care Team Providers Care Bilingual Medical Assistant Name Role Phone Salina Herman APRN Primary Care Provider +1- [phone] Reason for Visit * Reason Onset Date Comments Medication Problem 07/31/2020 Encounter Details Date Type Department Care Team (Late st Contact Info) Description 07/31/2020 Refill Primary Care at [address] [address] Sharona Mallory Social History Tobacco Use Types Packs/Day Years [...] * Telephone Encounter - Sharona Mallory - 07/31/2020 4:45 PM EDT Patient phoned and levothyroxine was phoned in to pharm and she needs the synthroid phoned in. She cannot take the levothyroxine, it messes up her thyroid. She is out of medication, can this please be phoned in. [facility] in [place] documented in this encounter Plan of Treatment Upcoming Encounters Date Type Department Care Team (Latest Contact Info) Description 04/06/2024 11:30 AM EST Hospital Encounter Outpatient [place] [address] Cadence Eric MD [facility] [place] [address] 04/06/2024 11:30 AM EST - 04/06/2024 12:50 PM EST Surgery Outpatient [place] [address] Cadence Eric MD [facility] [place] [address] IMPLANT NEUROSTIMULATOR ELECTRODES, PERIPHERAL NERVE (WRVU 5.76) 04/14/2024 2:30 PM EST Office Visit [place] [address] Cadence Eric MD [facility] [place] [address] Scheduled Procedures Name Priority Associated Diagnoses Date/Ti [...] on filedocumented in this encounter Care Teams Bilingual Medical Assistant Relationship Specialty Start Date End Date Salina Herman, GROUP LEADER [employer]ING [address] [place] [address] PCP - General Family Medicine 07/27/20 08/29/20 documented as of this encounter
--- OUTSIDE RECORDS SUMMARY | 2024-04-05 16:27 | XMS_ITS | Encounter Summary ---
[facility] [place] [address] Care Team Providers Care Airplane Inspector Name Role Phone Bob Day MD Primary Care Provider +1 [phone] Encounter Details Date Type Department Care Team (Late st Contact Info) Description 12/06/2020 Telephone [place] [phone] Cece Vinson Social History Tobacco Use Types Packs/Day Years [...] Miscellaneous Notes * Telephone Encounter - Cece Vinson - 12/06/2020 8:37 AM EDT Called patient to reschedule her colo that she cancelled for 12/10. She said she doesn't not want to reschedule at this time as she is not having any issues and doesn't think she needs to go through the procedure. She will call back if she wants to schedule. documented in this encounter Plan of Treatment Upcoming Encounters Date Type Department Care Team (Latest Contact Info) Description 04/06/2024 11:30 AM [facility] Hospital Encounter [place] [address] Cadence Eric MD [facility] [place] [address] 04/06/2024 11:30 AM EST - 04/06/2024 12:50 PM EST Surgery [place]patient [place] [address] Cadence Eric MD [facility] [place] [address] IMPLANT NEUROSTIMULATOR ELECTRODES, PERIPHERAL NERVE (WRVU 5.76) 04/14/2024 2:30 PM EST Office Visit [place] [address] Cadence Eric MD [facility] [place] [address] Scheduled Procedures Name Priority Associated Diagnoses Date/Ti [...] on filedocumented in this encounter Care Teams Airplane Inspector Relationship Specialty Start Date End Date Bob Day MD [address] [place] [address] PCP - General Family Medicine 08/30/20 02/06/21 documented as of this encounter
--- OUTSIDE RECORDS SUMMARY | 2024-04-05 16:27 | XMS_ITS | Encounter Summary ---
Author Organization [facility] Address [facility] [place] [address] Care Team Providers Care Loan Officer Name Role Phone Bob Day MD Primary Care Provider [phone] [phone] Encounter Details Date Type Department Care Team (Late st Contact Info) Description 11/08/2020 External Results [facility] [place] [phone] Karl Becker MD [facility] [place] [place] [address] Social History Tobacco Use Types Packs/Day Years [...] AM EST Hospital Encounter Outpatient [place] [phone] Cadence Eric MD [facility] [place] [address] 04/06/2024 11:30 AM EST - 04/06/2024 12:50 PM EST Surgery [place]patient [place] [address] Cadence Eric MD [facility] [place] [address] IMPLANT NEUROSTIMULATOR ELECTRODES, PERIPHERAL NERVE (WRVU 5.76) 04/14/2024 2:30 PM EST Office Visit [facility] [place] [address] Cadence Eric MD [facility] [place] [address] Scheduled Procedures Name Priority Associated Diagnoses Date/Ti [...] Associated Diagnosis Comments INTRATHECAL PUMP REFILL Routine 11/07/2020 documented in this encounter Results * INTRATHECAL PUMP REFILL (11/07/2020) Karl Becker MD PROCEDURE/MINOR SURG ICAL ORDERABLES documented in this encounter Visit Diagnoses Not on filedocumented in this encounter Care Teams Loan Officer Relationship Specialty Start Date End Date Bob Day MD [address] [place] [address] PCP - General Family Medicine 08/30/20 02/06/21 documented as of this encounter
--- OUTSIDE RECORDS SUMMARY | 2024-04-05 16:27 | XMS_ITS | Encounter Summary ---
Author Organization [facility] [place] [address] Care Team Providers Care Secy Name Role Phone Bob Day MD Primary Care Provider [phone] Reason for Visit * Reason Onset Date Comments Prior Authorization 08/22/2020 medication Encounter Details Date Type Department Care Team (Late Contact Info) Description 08/22/2020 Telephone Primary Care at [address] [address] Sharona Mallory Prior Authorization (medication) Social History Tobacco Use Types Packs/Day [...] Telephone Encounter - Prema Pacheco CMA - 08/22/2020 11:04 AM EDT Spoke with patient and advised that you are back in the office this afternoon. She asks that you give her a call when you have a moment to discuss her Oxycodone script. * Telephone Encounter - Sharona Mallory - 08/22/2020 10:42 AM EDT Patient phoned to check prior auth status for her oxycodone. She is due for a refill on Thursday for this medication. Can someone please phone her. Dr Day patient documented in this encounter Plan of Treatment Upcoming Encounters Date Type Department Care Team (Latest Contact Info) Description 04/06/2024 11:30 AM EST Hospital Encounter [place]patient [place] [address] Cadence Eric MD [facility] [place] [address] 04/06/2024 11:30 AM EST - 04/06/2024 12:50 PM EST Surgery [place]patient [place] [address] Cadence Eric MD [facility] [place] [address] IMPLANT NEUROSTIMULATOR ELECTRODES, PERIPHERAL NERVE (WRVU 5.76) 04/14/2024 2:30 PM EST Office Visit [place] [address] Cadence Eric MD [facility] [place] [address] Scheduled Procedures Name Priority Associated Diagnoses Date/Ti [...] on filedocumented in this encounter Care Teams Secy Relationship Specialty Start Date End Date Bob Day MD [address] [place] [address] PCP - General Family Medicine 08/30/20 02/06/21 documented as of this encounter
--- OUTSIDE RECORDS SUMMARY | 2024-04-05 16:27 | XMS_ITS | Encounter Summary ---
Author Organization [facility] [place] [address] Care Team Providers Care Forging Machine Hand Name Role Phone Bob Day MD Primary Care Provider [phone] [phone] Reason for Visit * Reason Comments Follow-up f/up hypothyroidism Encounter Details Date Type Department Care Team ([facility] Contact Info) Description 07/02/2020 10:00 AM EST Office Visit Primary Care at [facility] [address] [place] [address] Bob Day MD [address] [place] [address] s/p Left Total Knee Arthroplasty - 03/29/2020 Dr. Jacobson; Morbid obesity; Chronic pain disorder; Edema, unspecified type Social History Tobacco Use Types Packs/Day [...] Sign Reading Time Taken Comments Blood Pressure 132/84 07/02/2020 10:21 AM EST Pulse 65 07/02/2020 10:21 AM EST Temperature - - Respiratory Rate 16 07/02/2020 10:21 AM EST Oxygen Saturation 96% 07/02/2020 10:21 AM EST Inhaled Oxygen Concentration - - Weight 107 kg (236 lb) 07/02/2020 10:21 AM EST Height 149.9 cm (4' 11) 07/02/2020 10:21 AM EST Body Mass Index 47.67 07/02/2020 10:21 AM EST documented in this encounter Patient Instructions * Patient Instructions* Bob Day MD - 07/02/2020 10:00 AM EST 1. It is good to see that you are recovering slowly/steadily from your knee replacement surgery. Unfortunately you will eventually require the same for your right knee. Long-term your best outcome will be ensured if you are successful with real meaningful weight loss. This will require adherence toa strict calorie controlled diet. Options such as weight watchers or any commercial diet. Some people have been very successful with intermittent fasting which is a strategy you can explore. 2. Exercise is independently important but only contributes a fraction to the total weight loss program. Exercise is important for cardiovascular health which is independent of your weight. 3. You remain stable on your current regimen of medication for pain. However it is imperative that you identify your new provider will be after my detention. It would be good to establish in the coming month or 2 that you are care is accepted by a new provider. We (you and I) want a seamless transition to a new provider. 4. You have had a DVT scan which was negative. You have had your orthopedic doctor and nurses evaluating your leg. Thankfully this is just postoperative swelling which may take several more months tonormalize. Continue the ankle pumps, compression stockings and I am willing to give you some Lasix to be used as needed. I would recommend no more than 3 days continuous whenever you use it. To be honest I do not think it will make a huge difference but it is always a flip of the going with therapysuch as Lasix. 3 days on 1 day off as needed. documented in this encounter Progress Notes * Bob Day MD - 07/02/2020 10:00 AM EST Chief Complaint Patient presents with ??? Follow-up f/up hypothyroidism Subjective: HPI: Etelvina Cuadra is a 59 y.o. female presenting to Primary Care at [facility] for a clinic visit. In for routine follow-up for chronic pain. She has recovered, albeit slowly from her total knee replacement. She has completed physical therapy. She has plans to do walking when the weather is better. She is not really active currently. ROS: Review of Systems Constitutional: Negative. Respiratory: Negative. Cardiovascular: Negative. Gastrointestinal: Negative. Musculoskeletal: Positive for arthralgias. Left leg edema for 3 days Objective VS: BP 132/84 (BP Location (NBP): Right arm, Patient Position: Sitting, BP Cuff Sizes: Large Adult (32-43 cm)) Pulse 65 Resp 16 Ht 149.9 cm (4' 11) Wt 107 kg (236 lb) SpO2 96% BMI 47.67 kg/m?? Physical Exam Vitals reviewed. Constitutional: Appearance: Normal appearance. She is obese. Eyes: Extraocular Movements: Extraocular movements intact. Pupils: Pupils are equal, round, and reactive to light. Cardiovascular: Rate and Rhythm: Normal rate and regular rhythm. Heart sounds: Normal heart sounds. Musculoskeletal: Right lower leg: Edema present. Left lower leg: Edema present. Comments: Edema is trace/1+ Neurological: General: No focal deficit present. Mental Status: She is alert. Assessment and Plan: Etelvina was seen today for follow-up . Diagnoses and all orders for this visit: s/p Left Total Knee Arthroplasty - 03/29/2020 Dr. Jacobson Morbid obesity Chronic pain disorder Edema, unspecified type Patient Instructions 1. It is good to see that you are recovering slowly/steadily from your knee replacement surgery. Unfortunately you will eventually require the same for your right knee. Long-term your best outcome will be ensured if you are successful with real meaningful weight loss. This will require adherence toa strict calorie controlled diet. Options such as weight watchers or any commercial diet. Some people have been very successful with intermittent fasting which is a strategy you can explore. 2. Exercise is independently important but only contributes a fraction to the total weight loss program. Exercise is important for cardiovascular health which is independent of your weight. 3. You remain stable on your current regimen of medication for pain. However it is imperative that you identify your new provider will be after my detention. It would be good to establish in the coming month or 2 that you are care is accepted by a new provider. We (you and I) want a seamless transition to a new provider. 4. You have had a DVT scan which was negative. You have had your orthopedic doctor and nurses evaluating your leg. Thankfully this is just postoperative swelling which may take several more months tonormalize. Continue the ankle pumps, compression stockings and I am willing to give you some Lasix to be used as needed. I would recommend no more than 3 days continuous whenever you use it. To be honest I do not think it will make a huge difference but it is always a flip of the going with therapysuch as Lasix. 3 days on 1 day off as needed. FOLLOWUP: No follow-ups on file. Next appointment with Bob Day MD : Visit date not found Next appointment at Primary Care at [facility] : Visit date not found Medication Changes during this visit: Medications Discontinued During This Encounter Medication Reason ??? bisacodyl EC (Dulcolax) 5 mg Tablet, Delayed Release (E.C.) No longer taking ??? omeprazole (PriLOSEC) 20 mg Capsule, Delayed Release(E.C.) No longer taking documented in this encounter Plan of Treatment Upcoming Encounters Date Type Department Care Team (Latest Contact Info) Description 04/06/2024 11:30 AM EST Hospital Encounter [place]patient [place] [address] Cadence Eric MD [facility] [address] 04/06/2024 11:30 AM EST - 04/06/2024 12:50 PM EST Surgery [place] [address] Cadence Eric MD [facility] [address] IMPLANT NEUROSTIMULATOR ELECTRODES, PERIPHERAL NERVE (WRVU 5.76) 04/14/2024 2:30 PM EST Office Visit [place] [address] Cadence Eric MD [facility] [address] Scheduled Procedures Name Priority Associated Diagnoses Date/Ti [...] Dr. Jacobson Primary localized osteoarthrosis, lower leg Morbid obesity Chronic pain disorder Chronic pain syndrome Edema, unspecified type Saphenous neuralgia, right documented in this encounter Care Teams Forging Machine Hand Relationship Specialty Start Date End Date Bob Day MD [address] [facility] [place] [address] PCP - General Family Medicine 01/18/18 07/26/20 documented as of this encounter
--- OUTSIDE RECORDS SUMMARY | 2024-04-05 16:27 | XMS_ITS | Encounter Summary ---
Author Organization [facility] Address [facility] [place] [address] Care Team Providers Care Lead Java Programmer Name Role Phone Bob Day MD Primary Care Provider [phone] [phone] Reason for Visit * Reason Onset Date Comments Medication Refill 07/18/2020 Encounter Details Date Type Department Care Team (Late st Contact Info) Description 07/18/2020 Refill Primary Care at [facility] [address] [place] [address] Bob Day MD [address] [place] [address] s/p Left Total Knee Arthroplasty - 03/29/2020 [...] * Telephone Encounter - Sharona Mallory - 07/20/2020 8:48 AM EST Patient stated she phoned Thursday for this refill and it is due today. She will be out tomorrow. Jameson Kemp in [facility] Dr Day patient * Telephone Encounter - Brisa Beard CMA - 07/18/2020 5:52 PM EST Caller: Etelvina Cuadra Relationship to Patient: self Best number to be reached: Rx Renewal: PCP: Bob Day MD Last encounter this office: 07/02/2020 Last relevant appointment: 07/02/2020 w/Dr. Day Next appt this provider: 10/31/2020 Last Prescription Fill Date: 06/21/2020 Number Dispensed and Refills: 84 w/no refs Medication and Dose: Oxycodone 10mg UDS: 07/02/2020 Contract: 07/02/2020 [place] searched: [place]io[place]MP 04/03/2020 02/21/2020 06/24/2018 [place] PDMP Query Date 04/03/2020 02/21/2020 07/15/2018 [place] PDMP Query Date 04/03/2020 02/21/2020 07/15/2018 [place]MP Query Date 04/03/2020 02/21/2020 07/15/2018 Send to Pharmacy: [id number] - [address] [address] Lab Results Component Value Date HGB 7.7 [...] AM EST Hospital Encounter [place] [address] Cadence Eric MD [facility] [place] [address] 04/06/2024 11:30 AM EST - 04/06/2024 12:50 PM EST Surgery [place] [address] Cadence Eric MD [facility] [place] [address] IMPLANT NEUROSTIMULATOR ELECTRODES, PERIPHERAL NERVE (WRVU 5.76) 04/14/2024 2:30 PM EST Office Visit [place] [address] Cadence Eric MD [facility] [place] [address] Scheduled Procedures Name Priority Associated Diagnoses Date/Ti [...] right documented in this encounter Care Teams Lead Java Programmer Relationship Specialty Start Date End Date Bob Day MD [address] [place] [address] PCP - General Family Medicine 01/18/18 07/26/20 documented as of this encounter
--- OUTSIDE RECORDS SUMMARY | 2024-04-05 16:27 | XMS_ITS | Encounter Summary ---
[place] [address] Care Team Providers Care Global Commodity Manager Name Role Phone Bob Day MD Primary Care Provider [phone] [phone] Encounter Details Date Type Department Care Team (Late st Contact Info) Description 09/05/2020 Telephone [place] [phone] Lilia Ac, A Social History Tobacco Use Types Packs/Day Years [...] * Telephone Encounter - Toan Gilliam - 09/05/2020 3:02 PM EDT Spoke with the patient to gather more information on her current status. Patient is 5mo s/p L TKA. Patient has had a recent dental concern with an abscessed tooth and increased gingiva swelling which has prevented the dentist from being able to extract the involved tooth. She first noticed some dental irritation about one week ago which quickly progressed to her current condition in the last 3 days. She has had increased welling for the last 2 days of the operative knee. Of note, the patient reports having a fever and unexplained joint pain. She reports that it hasn't hurt this way since the surgery. She denies any chills, redness, or night sweats. No focal calf pain, SOB, or neurological s/s.Patient does report a headache that she has experienced the last few days. She was advised to go to her nearest ED for further clinical evaluation and care. She declined, as she thinks that [facility] ED will not be able to help her like [facility] The patient is also not entirely convinced that she needs to come since she is taking antibiotics (initial 2g dose of amoxicillin on 09/03/20 and was directed by her Dentist to take 500mg qPM until her dental appointment) She isunable to drive due to pain and headache. She is going to call her to leave work early and proceed to [facility]. It was emphasized that an infection can occour quickly and the earlier it is treated the better the outcome. She was also encouraged to call our office with any updates. If it is after 5pm, she was given the main hospital phone number with instructions to request to speak with the Orthopaedics resident air traffic control equipment repairer. She verbalized understanding of these instructions and plans to come to the ED. * Telephone Encounter - Lilia Ac RMA - 09/05/2020 1:37 PM EDT Triage Note Subjective: tooth infection SP Surgeon Role Maykel Jacobson MD Primary Toan Rocha MD Resident Procedure Laterality Anesthesia TOTAL KNEE ARTHROPLASTY (WRVU 20.72) Left MODIFIER,GMK SPHERE EFFICIENCY CS (FLEX) KNEE,MEDACTA N/A DOS 03/29/2020 Díaz questions/Assessment: Etelvina called to let Dr Jacobson know that she does have a tooth infection and an abscess. She was placed on antibiotics (Amoxicillon) by her dentist and will have her tooth Pull on 09/10/2020. She stated that there was to much infection and swelling for her tooth it to be extracted sooner. Etelvina reported that she was not feeling that well today and is having a headache, she wonders if it is related to the infection. Sending all to Ortho nurse for triage . documented in this encounter Plan of Treatment Upcoming Encounters Date Type Department Care Team (Latest Contact Info) Description 04/06/2024 11:30 AM EST Hospital Encounter Outpatient [place] [address] Cadence Eric MD [facility] [place] [address] 04/06/2024 11:30 AM EST - 04/06/2024 12:50 PM EST Surgery Outpatient [place] [address] Cadence Eric MD [facility] [place] [address] IMPLANT NEUROSTIMULATOR ELECTRODES, PERIPHERAL NERVE (WRVU 5.76) 04/14/2024 2:30 PM EST Office Visit [place] [address] Cadence Eric MD [facility] [place] [address] Scheduled Procedures Name Priority Associated Diagnoses Date/Ti [...] on filedocumented in this encounter Care Teams Global Commodity Manager Relationship Specialty Start Date End Date Bob Day MD [address] [place] [address] PCP - General Family Medicine 08/30/20 02/06/21 documented as of this encounter
--- OUTSIDE RECORDS SUMMARY | 2024-04-05 16:27 | XMS_ITS | Encounter Summary ---
Author Organization [facility] [place] [address] Care Team Providers Care Fruit Packer Face And Fill Name Role Phone Bob Day MD Primary Care Provider [phone] [phone] Reason for Visit * Reason Onset Date Comments Medication Refill 09/10/2020 Encounter Details Date Type Department Care Team (Late st Contact Info) Description 09/10/2020 Refill Primary Care at [address] [address] Moshe Triana, RN s/p Left Total Knee Arthroplasty - 03/29/2020 [...] Telephone Encounter - Brisa Beard CMA - 09/10/2020 4:44 PM EDT Caller: Etelvina Cuadra Relationship to Patient: self Best number to be reached: Rx Renewal: PCP: Bob Day MD Last encounter this office: 07/02/2020 Last relevant appointment: 07/02/2020 w/Dr. Day Next appt this provider: 10/31/2020 Last Prescription Fill Date: 08/22/2020 Number Dispensed and Refills: 63 w/ no refs Medication and Dose: Oxycodone 10mg UDS: 07/02/2020 Contract: 07/02/2020 [place] database searched: [place]io[place]MP 08/17/2020 04/03/2020 02/21/2020 06/24/2018 [place] Query Date 08/20/2020 04/03/2020 02/21/2020 07/15/2018 [place] Query Date 08/20/2020 04/03/2020 02/21/2020 07/15/2018 [place] Query Date - 04/03/2020 02/21/2020 07/15/2018 Send to Pharmacy: [facility] - [place], [place] - [address] [place] [address] Lab Results Component Value Date HGB 7.7 [...] AM EST Hospital Encounter Outpatient [place] [address] Cadence Eric MD [facility] [place] [address] 04/06/2024 11:30 AM EST - 04/06/2024 12:50 PM EST Surgery [place]patient [place] [address] Cadence Eric MD [facility] [place] [address] IMPLANT NEUROSTIMULATOR ELECTRODES, PERIPHERAL NERVE (WRVU 5.76) 04/14/2024 2:30 PM EST Office Visit [facility] [place] [address] Cadence Eric MD [facility] [place] [address] Scheduled Procedures Name Priority Associated Diagnoses Date/Ti [...] right documented in this encounter Care Teams Fruit Packer Face And Fill Relationship Specialty Start Date End Date Bob Day MD [address] [place] [address] PCP - General Family Medicine 08/30/20 02/06/21 documented as of this encounter
--- OUTSIDE RECORDS SUMMARY | 2024-04-05 16:27 | XMS_ITS | Encounter Summary ---
[place] [address] Care Team Providers Care Director Of Distance Learning Name Role Phone VirgilSalina Marlene WHITFIELD Primary Care Provider [phone]- [phone] Reason for Visit * Reason Onset Date Comments Triage 08/09/2020 Encounter Details Date Type Department Care Team (Late st Contact Info) Description 08/09/2020 Telephone [place] [phone] Bishop Gregory Triage Social History Tobacco Use [...] encounter Miscellaneous Notes * Telephone Encounter - Bishop Gregory - 08/09/2020 11:48 AM EDT Etelvina Cuadra is a 59 y.o. female who is s/p L TKA DOS: 03/29/[address] Jacobson. She reports that she has been having tooth aches recently and suspects that she has a tooth infection. She would like [facility] ortho to prescribe ABX to treat the infection until she is 6 months out fromsurgery so she can see a dentist. I informed her that the restriction for seeing a dentist is with regards to regular cleaning, not urgent cases. She should be seen by her dentist to determine the actual diagnosis of her tooth and plan from then. The dentist's plan with determine the next steps by Orthopedics. She understands and will seek to make an appointment with her dentist. documented in this encounter Plan of Treatment Upcoming Encounters Date Type Department Care Team (Latest Contact Info) Description 04/06/2024 11:30 AM EST Hospital Encounter [place] [address] Cadence Eric MD [facility] [place] [address] 04/06/2024 11:30 AM EST - 04/06/2024 12:50 PM EST Surgery [place]patient [place] [address] Cadence Eric MD [facility] [place] [address] IMPLANT NEUROSTIMULATOR ELECTRODES, PERIPHERAL NERVE (WRVU 5.76) 04/14/2024 2:30 PM EST Office Visit [facility] [place] [address] Cadence Eric MD [facility] [place] [address] Scheduled Procedures Name Priority Associated Diagnoses Date/Ti ny IMPLANT NEUROSTIMULATOR ELECTRODES, PERIPHERAL NERVE (WRVU 5.76) Yes Saphenous neuralgia, right 04/06/2024 11:30 AM EST IMPLANT NEUROSTIMULATOR ELECTRODES, PERIPHERAL NERVE (WRVU 5.76) Saphenous neuralgia, 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 Neuropathic pain COLONOSCOPY,SCREENING (WRVU 3.26) Health maintenance examination-screening colo documented as of this encounter Visit Diagnoses Not on filedocumented in this encounter Care Teams Director Of Distance Learning Relationship Specialty Start Date End Date Salina Herman, CONTRACTS MANAGER [address] [place] [address] PCP - General Family Medicine 07/27/20 08/29/20 documented as of this encounter
--- OUTSIDE RECORDS SUMMARY | 2024-04-05 16:27 | XMS_ITS | Encounter Summary ---
Author Organization [facility] Address [facility] [place] [address] Care Team Providers Care Dovetailer Name Role Phone Bob Day MD Primary Care Provider [phone] [phone] Reason for Visit * Auth/Cert Specialty Diagnoses / Procedures Referred By Cindy t Referred To Contact Diagnoses 1Pump refill Procedures PRO ELECTRONIC PUMP ANALYSIS W REPROGRAMMING AND REFILL BY MD/NAHID ELECTRONIC HERNANDEZ PROG., PUMP- DRUG INFUS; W/ REPROGRAM & REFILL REQ (WRVU 0.9) Referral ID Status Reason Start Date Expiration Date Visits Re quested Visits Authorized [id number] 1 1 Encounter Details Date Type Department Care Team ([facility] st Contact Info) Description 11/07/2020 1:00 PM EDT - 11/07/2020 2:00 PM [place]T [place] [phone] Karl Becker MD [facility] [place] [address] ELECTRONIC HERNANDEZ PROG., PUMP- DRUG INFUS; W/ [...] daily. 2 gummies daily=4MG NARCAN 4 mg/actuation Bell, Non-Aerosol instill 1 spray in 1 NOSTRIL if needed for opioid overdose may re... (REFER TO PRESCRIPTION NOTES). 0 12/08/2018 multivitamin with minerals Tablet Take 1 tablet by mouth daily. morphine sulfate/D5W (MORPHINE IN D5W) 1 mg/mL Prefilled Pump Harwood Inject as directed. Has intrathecal pump with [...] Birthdate: 1960 Admit date: 11/07/2020 Attending Physician: Consuelo att. providers found PREPROCEDURE HISTORY AND PHYSICAL [...] hernia, with obstruction, without gangrene 06/24/2018 ??? 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 PRO COLONOSCOPY, DIAGNOSTIC 09/23/2011 COLONOSCOPY, DIAGNOSTIC performed by NIKKI MAYORGA at [facility] ENDOSCOPY ??? PRO ELECTRONIC PUMP ANALYSIS W REPROGRAMMING AND REFILL BY /NAHID N/A 03/30/2019 ELECTRONIC HERNANDEZ PROG., PUMP- DRUG INFUS; W/ REPROGRAM & REFILL REJohn DASWON (WRVU 0.9) performed by Karl Becker MD at [facility] PAIN MGMT MSO ??? PRO ELECTRONIC PUMP ANALYSIS W REPROGRAMMING AND REFILL BY /NAHID N/A 12/05/2019 ELECTRONIC HERNANDEZ PROG., PUMP- DRUG INFUS; W/ REPROGRAM & REFILL REQ (WRVU 0.9) performed by Karl Becker MD at [facility] PAIN [facility] MSO ??? PRO ELECTRONIC PUMP ANALYSIS W REPROGRAMMING AND REFILL BY /NAHID N/A 03/12/2020 ELECTRONIC HERNANDEZ PROG., PUMP- DRUG INFUS; W/ REPROGRAM & REFILL REQ (WRVU 0.9) performed by Karl Becker MD at [facility] PAIN MGMT MSO ??? PRO IMP SPINAL CANAL CATH Midline 03/23/2019 IMPLANT, REV OR REP TUNNELED INTRATHACAL OR EPIDURAL CATHETER (WRVU 6.05) performed by Karl Becker MD at [facility] MAIN OR ??? PRO INSERT/ REPLACE INFUSN PUMP, PROGRAMMABLE Right 03/23/2019 IMPLANT OR REPLACE PROG. PUMP-DRUG INFUSION (WRVU 5.6) performed by Melani Darden MD at [facility] ADEEL ??? PRO LAP, CHOLECYSTECTOMY/GRAPH N/A 10/18/2016 LAPAROSCOPIC CHOLECYSTECTOMY WITH CHOLANGIOGRAM (WRVU 11.47) performed by Tasia Umaña MD at [facility] MAIN OR ??? PRO LAP, VENTRAL HERNIA REPAIR, INCARCERATED N/A 07/12/2018 LAPAROSCOPIC HERNIA, VENTRAL, INCARCERATED, W-WO MESH (WRVU 14.94) performed by Izzy Blanco MD at [facility] MAIN OR ??? PRO TOTAL KNEE ARTHROPLASTY Left 03/29/2020 TOTAL KNEE ARTHROPLASTY (WRVU 20.72) performed by Maykel Jacobson MD at [facility] MAIN OR ALLERGIES: Peanut, Peanut oil, Rice, [...] by mouth daily. ??? NARCAN 4 mg/actuation Bell, Non-Aerosol instill 1 spray in 1 NOSTRIL if needed for opioid overdose may re... (REFER TO PRESCRIPTION NOTES). 0 ??? multivitamin with minerals Tablet Take 1 tablet by mouth daily. ??? morphine 100 % Powd 10 mg/mL by Intrathecal route continuous. 42 mL 0 ??? morphine sulfate/D5W (MORPHINE IN D5W) 1 mg/mL Prefilled Pump Harwood Inject as directed. ??? EPINEPHrine 1 mg/mL [...] Fellow [facility] [address] [address] [email or web address] documented in this encounter Miscellaneous Notes * Op Note - France Muniz MD - 11/07/2020 1:18 PM EDT Pain Management Operative Note Patient Name: Etelvina Cuadra : [id number] MR#: [id number] Case Date: 11/07/2020 Surgeon: Surgeon(s) and Role: * Karl Becker MD - Primary * France Muniz MD - Fellow Present on Admission: ??? Postlaminectomy syndrome of lumbar region Postoperative diagnosis: same Procedure(s) (LRB): ELECTRONIC HERNANDEZ PROG., PUMP- DRUG INFUS; W/ REPROGRAM & REFILL REQ (WRVU 0.9) (N/A) INTRATHECAL PUMP REFILL PROCEDURE NOTE WITH REPROGRAMMING Primary Stars Specialist: Karl Becker MD Film Numberer: France Muniz MD Reason for Reprogramming: Refill [...] different? no Empty syringe concentration verified by lap checker: yes If concentration of drug is [...] drapes were applied as provided with the [employer] refill kit. A 22 gauge Moraes non-coring [...] instilled into the pump according to the cv/cvn cv tsc system operator's directions without difficulty. There was no evidence [...] Fellow [facility] [address] [address] [email or web address] Associated attestation - Karl Becker MD - [...] AM EST Hospital Encounter [place] [phone] Cadence Eric MD [facility] [place] [address] 04/06/2024 11:30 AM EST - 04/06/2024 12:50 PM EST Surgery [place] [phone] Cadence Eric MD [facility] [place] [address] IMPLANT NEUROSTIMULATOR ELECTRODES, PERIPHERAL NERVE (WRVU 5.76) 04/14/2024 2:30 PM EST Office Visit [facility] [place] [address] Cadence Eric MD [facility] [place] [address] Scheduled Procedures Name Priority Associated Diagnoses Date/Ti [...] Priority Date/Time Associated Diagnosis Comments Anal Inf Ui Architect W ReproRefil([id number]) 11/07/2020 1:01 PM EDT Pump refill documented in this encounter Visit Diagnoses Not on filedocumented in this encounter Care Teams Dovetailer Relationship Specialty Start Date End Date Bob Day MD [address] [place] [address] PCP - General Family Medicine 08/30/20 02/06/21 documented as of this encounter
--- OUTSIDE RECORDS SUMMARY | 2024-04-05 16:27 | XMS_ITS | Encounter Summary ---
Author Organization [facility] Address [facility] [place] [address] Care Team Providers Care Filament Coil Winder Name Role Phone VirgilSalina Marlene WHITFIELD Primary Care Provider +1- [phone] Reason for Visit * Reason Onset Date Comments Medication Refill 07/25/2020 Medication Refill 07/26/2020 Encounter Details Date Type Department Care Team (Late st Contact Info) Description 07/25/2020 Telephone Primary Care at [facility] [address] [place] [address] Bob Day MD [address] [place] [address] Medication Refill; Medication Refill Social History Tobacco Use Types [...] Encounter - Karely Foster MA - 07/26/2020 12:09 PM EDT Pharmacy called for clarification on whether pt should be taking 20 or 40mgs of Citalopram daily. Both have been indicated. * Telephone Encounter - Shasha Le CMA - 07/25/2020 5:39 PM EDT Caller: Etelvina Cuadra Relationship to Patient: self Best number to be reached: Rx Renewal: PCP: Bob Day MD Last encounter this office: 07/02/2020 Last relevant appointment: Next appt this provider: 10/31/2020 Last Prescription Fill Date: 04/02/20 Number Dispensed and Refills: Medication and Dose: celexa 40mg; triglide 160mg; synthroid 100mcg Send to Pharmacy: [id number] - [place], [place] - [address] [place] [address] Lab Results Component Value Date HGB 7.7 [...] EST Hospital Encounter Outpatient [place] [address] Cadence Eric MD [facility] [place] [address] 04/06/2024 11:30 AM EST - 04/06/2024 12:50 PM EST Surgery Outpatient [place] [address] Cadence Eric MD [facility] [place] [address] IMPLANT NEUROSTIMULATOR ELECTRODES, PERIPHERAL NERVE (WRVU 5.76) 04/14/2024 2:30 PM EST Office Visit [facility] [place] [address] Cadence Eric MD [facility] [place] [address] Scheduled Procedures Name Priority Associated Diagnoses Date/Ti [...] on filedocumented in this encounter Care Teams Filament Coil Winder Relationship Specialty Start Date End Date Salina Herman, DIRECTOR SMB SALES [address] [place] [address] PCP - General Family Medicine 07/27/20 08/29/20 documented as of this encounter
--- OUTSIDE RECORDS SUMMARY | 2024-04-05 16:27 | XMS_ITS | Encounter Summary ---
Author Organization [facility] Address [facility] [place] [address] Care Team Providers Care School Based Therapist Name Role Phone Bob Day MD Primary Care Provider [phone] [phone] Reason for Visit * Auth/Cert Specialty Diagnoses / Procedures Referred By Cindy t Referred To Contact Diagnoses 1Pump refill Procedures PRO ELECTRONIC PUMP ANALYSIS W REPROGRAMMING AND REFILL BY MD/HANDTOOLS REPAIRER ELECTRONIC HERNANDEZ PROG., PUMP- DRUG INFUS; W/ REPROGRAM & REFILL REQ MD (WRVU 0.9) Referral ID Status Reason Start Date Expiration Date Visits Re quested Visits Authorized [id number] 1 1 Encounter Details Date Type Department Care Team (Late st Contact Info) Description 11/07/2020 1:00 PM EDT Ancillary [place] [phone] Karl Becker MD [facility] [place] [address] Pain Social History Tobacco Use Types Packs/Day [...] AM EST Hospital Encounter Outpatient [place] [address] Cadence Eric MD [facility] [place] [address] 04/06/2024 11:30 AM EST - 04/06/2024 12:50 PM EST Surgery Outpatient [place] [address] Cadence Eric MD [facility] [place] [address] IMPLANT NEUROSTIMULATOR ELECTRODES, PERIPHERAL NERVE (WRVU 5.76) 04/14/2024 2:30 PM EST Office [place] [address] Cadence Eric MD [facility] [place] [address] Scheduled Procedures Name Priority Associated Diagnoses Date/Ti [...] STORAGE ONLY PAIN CLINIC C ARM Routine 11/07/2020 2:09 PM EDT Pain documented in this encounter Results * Film Library- Storage Only pain Clinic C-Arm (11/07/2020 2:09 PM EDT) Narrative [facility] - 11/07/2020 2:09 PM EDT See PACS for result report. Karl Becker MD IMG FILM LIBRARY ORD ERABLES [facility] [place], [place] documented in this encounter Visit Diagnoses Diagnosis Pain Generalized pain Saphenous neuralgia, right documented in this encounter Care Teams School Based Therapist Relationship Specialty Start Date End Date Bob Day MD [address] [place] [address] PCP - General Family Medicine 08/30/20 02/06/21 documented as of this encounter
--- OUTSIDE RECORDS SUMMARY | 2024-04-05 16:28 | XMS_ITS | Encounter Summary ---
Author Organization [facility] Address [facility] [place] [address] Care Team Providers Care Back Sizer Name Role Phone Bob Day MD Primary Care Provider [phone] [phone] Reason for Visit * Reason Comments Follow-up s/p L TKA DOS: 03/29 Encounter Details Date Type Department Care Team (Late st Contact Info) Description 06/20/2020 2:20 PM EST Office Visit [place] [address] Taina Serrano APRN [facility] [place] [address] s/p Left Total Knee Arthroplasty - 03/29/2020 Dr. Jacobson (Primary Dx) Social History Tobacco Use Types [...] Sign Reading Time Taken Comments Blood Pressure 118/58 06/20/2020 2:35 PM EST Pulse 69 06/20/2020 2:35 PM EST Temperature - - Respiratory Rate - - Oxygen Saturation - - Inhaled Oxygen Concentration - - Weight 105.2 kg (232 lb) 06/20/2020 2:35 PM EST Height 149.9 cm (4' 11) 06/20/2020 2:35 PM EST Body Mass Index 46.86 06/20/2020 2:35 PM EST documented in this encounter Progress Notes * Taina Serrano, TELEMARKETER SUPERVISOR - 06/20/2020 2:20 PM EST Arthroplasty/Orthopaedic History: 1. Right knee uni-compartment knee replacement. Outside provider. 2. Left knee TKA. DOS: 03/29/2020. Dr. Jacobson. Chief Complaint: Planned re-check for LEFT knee TKA. HPI: Etelvina Cuadra is a very pleasant 59 y.o. year-old female and is now a few months status post left total knee replacement The patient has been doing well and feeling like she is turning the cornerwith her rehab. Pain is controlled with current analgesics. Medication(s) being used: baclofen at bedtime helps after a long day on her feet. No fevers, chills, nausea, vomiting, or symptoms of infection. Etelvina has been ambulating with no assistive device and working with an HEP at this time. She istaking chronic narcotic pain medicine. No interval falls or injuries. Etelvina is here for a planned post op check. Patient's medications, allergies, past medical, surgical, social and family histories were reviewedand updated as appropriate. ROS: Denies: fever, chills, night sweats, nausea, or vomiting BP 118/58 (BP Location (NBP): Right arm, Patient Position: Sitting, BP Cuff Sizes: Large Adult (32-43 cm)) Pulse 69 Ht 149.9 cm (4' 11) Wt 105.2 kg (232 lb) BMI 46.86 kg/m?? Physical Exam: Well-appearing female in no acute distress. Alert and Oriented x 3 and answers all questions appropriately. Knee Exam: Left Knee ROM: Extension:0 Flexion: 120 Alignment: 0-4 degrees Neutral Stability: A/P Translation <5mm Varus <5mm Valgus <5mm Extension La degrees or less Patella Tracking: Normal Pulses Palpable: Left PT:Yes Motor/Sensory: Distal Motor: Normal Distal Sensory: Normal Quadriceps Strength: 5 X-RAYS: no new images. Questionnaire Responses: [facility] Surgical Postop Visit 06/20/2020 PROMIS-10 General Health Good PROMIS-10 Quality of Life Very Good PROMIS-10 Physical Health Very Good PROMIS-10 Mental Health Excellent PROMIS-10 Social Activity Excellent PROMIS-10 Everyday Activities Completely PROMIS-10 Pain 3 PROMIS-10 Fatigue Mild PROMIS-10 Social Roles Excellent PROMIS-10 Anxious or Depressed Never PROMIS PHYSICAL HEALTH SCORE 54.1 PROMIS MENTAL HEALTH SCORE 62.5 KOOS JR Scores 70.7 Problems with surgical incision/wound after surgery No Gone to ER since knee surgery No Admitted to hospital since recent ortho surgery No Additional surgery on same body part No TKA Grade 5 Pain in other KNEE Mild Back pain at this moment Fairly severe Satisfaction with Treatment Somewhat dissatisfied Choose Same Treatment Again Probably yes [facility]ope[facility] Response 06/20/2020 KOOS JR Scores 70.7 Spine [facility] Response 06/20/2020 KOOS JR Scores 70.7 ASSESSMENT/PLAN: Ms. Cuadra is a 59 y.o. year old female status post left total knee replacement a few months ago. Etelvina now feels that she is turning the corner and feeling better than before her surgery. ROM is now functional. Continue weightbearing as tolerated and working on range of motion. We will see her back in 9 months for repeat examination. X-rays will be needed at that time. Patient mayreturn to normal activities as her pain and function allow. Pt agrees, questions solicited/answered, will return as scheduled and as needed for concerns or questions. Pt understands they may also call us prn for above. We discussed the appropriate precautions surrounding dental prophylaxis; according to the AAOS Appropriate Use Criteria we do not recommend antibiotic use prior to dental procedures for Etelvina. Recommended antibiotic: N/A If Etelvina has any changes in health status we recommend she contact our office prior to dental procedures for updated recommendations Should maintain good foot care and giving prompt attention to any source of infection throughout the body including foot ulcers and urinary tract infections. All questions were answered. Signed: TAINA SERRANO APRN 06/20/2020 documented in this encounter Miscellaneous Notes * Addendum Note - Taina Serrano APRN - 06/20/2020 2:20 PM ESTAddended by: TAINA SERRANO on: 06/20/2020 03:04 PM Modules accepted: Orders documented in this encounter Plan of Treatment Upcoming Encounters Date Type Department Care Team (Latest Contact Info) Description 04/06/2024 11:30 AM EST Hospital Encounter Outpatient [place] [address] Cadence Eric MD [facility] [place] [address] 04/06/2024 11:30 AM EST - 04/06/2024 12:50 PM EST Surgery Outpatient [place] [address] Cadence Eric MD [facility] [place] [address] IMPLANT NEUROSTIMULATOR ELECTRODES, PERIPHERAL NERVE (WRVU 5.76) 04/14/2024 2:30 PM EST Office Visit [place] [address] Cadence Eric MD [facility] [place] [address] Scheduled Procedures Name Priority Associated Diagnoses Date/Ti [...] who have questions please contact the health primary care nurse that requested your imaging first. ? Procedure Note Yanni Crowder MD - 09/07/2020 [...] patients who have questions please contactthe health primary care nurse that requested your imaging first. Taina Serrano TELEMARKETER SUPERVISOR IMG DX ORDERABLES documented in this encounter Visit Diagnoses Diagnosis s/p Left Total Knee Arthroplasty - 03/29/2020 Dr. Jacobson- Primary Primary localized osteoarthrosis, lower leg History of total knee replacement, left s/p Left Total Knee Arthroplasty - 03/29/2020 Dr. Jacobson Primary localized osteoarthrosis, lower leg Saphenous neuralgia, right documented in this encounter Care Teams Back Sizer Relationship Specialty Start Date End Date Bob Day MD [address] [place] [address] PCP - General Family Medicine 01/18/18 07/26/20 documented as of this encounter
--- OUTSIDE RECORDS SUMMARY | 2024-04-05 16:28 | XMS_ITS | Encounter Summary ---
Author Organization [facility] Address [facility] Alyssa menchacat[place] [address] Care Team Providers Care Desktop Support Technician Name Role Phone Bob Day MD Primary Care Provider +1 [phone] Encounter Details Date Type Department Care Team (Latest Contact Info) Description 05/09/2020 11:27 AM EST - 05/09/2020 11:59 PM [facility] Hospital Encounter XRay at [address] [place] [address] Maykel Jacobson MD [facility] [place] [address] s/p Left Total Knee Arthroplasty - 03/29/2020 [...] Sig Dispensed Refills Start Date End Date calcium carbonate-vitamin D3 (Os-Nico 500 + D3) 500mg (1,250mg) -600 unit Tablet Take 1 tablet by mouth Daily. 01/16/2016 Bifidobacterium infantis (ALIGN) 4 mg Capsule Take by mouth daily. 2 gummies daily=4MG NARCAN 4 mg/actuation [place], Non-Aerosol instill 1 spray in 1 NOSTRIL if needed for opioid overdose may re... (REFER TO PRESCRIPTION NOTES). 0 12/08/2018 multivitamin with minerals Tablet Take 1 tablet by mouth daily. morphine sulfate/D5W (MORPHINE IN D5W) 1 mg/mL Prefilled Pump [place] Inject as directed. Has intrathecal pump with continuous rate and Has 5 preset prn boluses pt may give herself omeprazole (PriLOSEC) 20 mg Capsule, Delayed Release(E.C.) 04/01/2020 07/02/2020 baclofen (Lioresal) 10 mg Tablet Take 1 tablet by mouth 3 times daily. 90 tablet 05/09/2020 09/04/2021 oxyCODONE (ROXICODONE) 10 mg TabletIndications:Prima ry osteoarthritis of left knee Take 1 tablet by mouth 3 times daily as needed for Pain. 84 tablet 04/27/2020 05/22/2020 citalopram (CeleXA) 40 mg Tablet Take 1 tablet by mouth daily. Takes 20 mg , splits a 40mg pill in half. 04/02/2020 07/25/2020 senna-docusate (Pericolace) 8.6-50 mg Tablet Take 1 tablet by mouth daily. 04/01/2020 08/27/2022 acetaminophen (Tylenol) 500 mg Tablet Take 2 tablets by mouth every 8 hours. 04/01/2020 09/04/2021 bisacodyl EC (Dulcolax) 5 mg Tablet, Delayed Release (E.C.) Take 2 tablets by mouth 2 times daily as needed for Constipation. 04/01/2020 07/02/2020 albuteroL 90 mcg/actuation HFA Aerosol Inhaler Inhale 1-2 puffs into the lungs Every 4 hours. 12/06/2018 09/04/2021 PROAIR HFA 90 mcg/actuation HFA Aerosol Inhaler inhale 1 to 2 puffs by mouth every 4 to 6 hours if needed for wheezing 0 12/06/2018 06/20/2020 morphine 100 % Powd 10 mg/mLIndications:Post laminectomy [...] AM EST Hospital Encounter [place] [address] Cadence Eric MD [facility] [place] [address] 04/06/2024 11:30 AM EST - 04/06/2024 12:50 PM EST Surgery [place] [address] Cadence Eric MD [facility] [place] [address] IMPLANT NEUROSTIMULATOR ELECTRODES, PERIPHERAL NERVE (WRVU 5.76) 04/14/2024 2:30 PM EST Office Visit [place] [address] Cadence Eric MD [facility] [place] [address] Scheduled Procedures Name Priority Associated Diagnoses Date/Ti [...] STANDING ALIGNMENT AP LAT SKYLINE LEFT Routine 05/09/2020 11:53 AM EST s/p Left Total Knee Arthroplasty - 03/29/2020 Dr. Jacobson documented in this encounter Results * XR Knee Standing Alignment AP Lat [place] Left (05/09/2020 11:53 AM EST) Anatomical Region Laterality Modality Knee Left Digital Radiogra phy Impressions 05/09/2020 1:22 PM EST Left TKA in near anatomic alignment and without complication. Thank you for letting us participate in the care of this patient. For questions regarding this report, please contact the number below. ? Electronically signed by: Lizzy Elliott MD, [facility] ([phone]), at 05/09/2020 1:22 PM Narrative 05/09/2020 1:22 PM EST EXAMINATION: XR KNEE STANDING ALIGNMENT AP LAT SKYLINE LEFT CLINICAL HISTORY: Lt TKA s/p with routine healing TECHNIQUE: Separate images of the pelvis, knees and feet were acquired in the AP projection with the patient standing. These images were stitched together to form a composite image of the pelvis and legs allowing for evaluation of lower extremity alignment in the weight bearing position. Additional 4 views of the left knee. COMPARISON: 12/06/2019 FINDINGS: There has been interval placement of a left total knee arthroplasty, which is in near anatomic alignment. There is no periprosthetic lucency or fracture. No large joint effusion. The mechanical axis of the left knee is deviated very slightly medially. There is a medial compartment arthroplasty of the right knee, which appear stable. Procedure Note Lizzy Elliott MD - 05/09/2020 EXAMINATION: XR KNEE STANDING ALIGNMENT AP LAT SKYLINE LEFT CLINICAL HISTORY: Lt TKA s/p with routine healing TECHNIQUE: Separate images of the pelvis, knees and feet were acquired inthe AP projection with the patient standing. These images were stitched togetherto form a composite image of the pelvis and legs allowing for evaluation oflower extremity alignment in the weight bearing position. Additional 4 views of the left knee. COMPARISON: 12/06/2019 FINDINGS: There has been interval placement of a left total knee arthroplasty, whichis in near anatomic alignment. There is no periprosthetic lucency or fracture.No large joint effusion. The mechanical axis of the left knee is deviatedvery slightly medially. There is a medial compartment arthroplasty of the right knee, whichappear stable. IMPRESSION Left TKA in near anatomic alignment and without complication. Thank you for letting us participate in the care of this patient. Forquestions regarding this report, please contact the number below. Electronically signed by: Lizzy Elliott MD, [facility]([phone]), at 05/09/2020 1:22 PM Maykel Jacobson MD IMG DX ORDERABLES documented in this encounter Visit Diagnoses Diagnosis s/p Left Total Knee Arthroplasty - 03/29/2020 Dr. Jacobson Primary localized osteoarthrosis, lower leg Saphenous neuralgia, right documented in this encounter Care Teams Desktop Support Technician Relationship Specialty Start Date End Date Bob Day MD [address] [place] [address] PCP - General Family Medicine 01/18/18 07/26/20 documented as of this encounter
--- OUTSIDE RECORDS SUMMARY | 2024-04-05 16:28 | XMS_ITS | Encounter Summary ---
Author Organization [facility] Address [facility] [place] [address] Care Team Providers Care Flute Polisher Name Role Phone Bob Day MD Primary Care Provider [phone] [phone] Reason for Visit * Reason Onset Date Comments Medication Refill 04/25/2020 Encounter Details Date Type Department Care Team (Late st Contact Info) Description 04/25/2020 Refill Primary Care at [facility] [address] [place] [address] Bob Day MD [address] [place] [address] s/p Left Total Knee Arthroplasty - 03/29/2020 [...] encounter Miscellaneous Notes * Telephone Encounter - Luz Crisostomo CMA - 05/03/2020 7:26 AM EST oxyCODONE (ROXICODONE) 10 mg Tablet 84 tablet 0 04/27/2020 Sig - Route: Take 1 tablet by mouth 3 times daily as needed for Pain. - Oral Sent to pharmacy as: oxyCODONE 10 mg Tablet Earliest Fill Date: 04/27/2020 Notes to Pharmacy: Indication: Acute pain. Indication: Chronic pain E-Prescribing Status: Receipt confirmed by pharmacy (04/27/2020 11:44 AM EST) * Telephone Encounter - Brisa Beard CMA - 04/25/2020 11:31 AM EST Caller: Etelvina Cuadra Relationship to Patient: self Best number to be reached: Rx Renewal: PCP: Bob Day MD Last encounter this office: Visit date not found Last relevant appointment: 02/16/2020 Next appt this provider: 06/20/2020 Last Prescription Fill Date: 04/23/2020 Number Dispensed and Refills: 25 (for post op pain?) Medication and Dose: Oxycodone 5 mg UDS: 10/14/2018 Contract: 09/29/2019 [place] database searched: Opioid PDMP 04/03/2020 02/21/2020 06/24/2018 [place] Query Date 04/03/2020 02/21/2020 07/15/2018 [place] PDMP Query Date 04/03/2020 02/21/2020 07/15/2018 [place] Query Date 04/03/2020 02/21/2020 07/15/2018 [facility] to [id number] [place], [place] - [address] [place] [address] [facility] [address] [address] Lab Results Component Value Date HGB 7.7 [...] INR 1.0 02/21/2020 * Telephone Encounter - Luz Crisostomo CMA - 04/25/2020 9:42 AM EST Patient called rx line oxycodone IR 10 mg to [facility] documented in this encounter Plan of Treatment Upcoming Encounters Date Type Department Care Team (Latest Contact Info) Description 04/06/2024 11:30 AM EST Hospital Encounter [place] [phone] Cadence Eric MD [facility] [address] 04/06/2024 11:30 AM EST - 04/06/2024 12:50 PM EST Surgery [place] [phone] Cadence Eric MD [facility] PAIN MA[facility]EMENT [address] IMPLANT NEUROSTIMULATOR ELECTRODES, PERIPHERAL NERVE (WRVU 5.76) 04/14/2024 2:30 PM EST Office Visit [place] [address] Cadence Eric MD [facility] [address] Scheduled Procedures Name Priority Associated Diagnoses Date/Ti [...] right documented in this encounter Care Teams Flute Polisher Relationship Specialty Start Date End Date Bob Day MD [address] [place] [address] PCP - General Family Medicine 01/18/18 07/26/20 documented as of this encounter
--- OUTSIDE RECORDS SUMMARY | 2024-04-05 16:28 | XMS_ITS | Encounter Summary ---
Author Organization [facility] Address [facility] [place] [address] Care Team Providers Care Heel Sorter Name Role Phone Bob Day MD Primary Care Provider [phone] [phone] Reason for Referral * Physical Therapy (Routine) - Specialty Diagnoses / Procedures Referred By Cindy wooten Referred To Contact Physical Therapy Diagnoses Primary osteoarthritis of left knee Taina Serrano APRN [facility] [place] [address] Referral ID Status Reason Start Date Expiration Date V isits Requested Visits Authorized [id number] Evaluate and Treat 05/09/2020 11/05/2020 24 24 Reason for Visit * Reason Comments Follow Up Surgery XR//DOS:03/29/20 lef t tka ([facility]) Encounter Details Date Type Department Care Team (Late st Contact Info) Description 05/09/2020 11:40 AM EST Office [place] [address] Taina eSrrano PLAY WRITER [facility] [place] [address] Left leg swelling (Primary Dx); s/p Left Total Knee Arthroplasty - 03/29/2020 [...] Sign Reading Time Taken Comments Blood Pressure 122/57 05/09/2020 12:06 PM EST Pulse 59 05/09/2020 12:06 PM EST Temperature 36.6 ??C (97.9 ??F) 05/09/2020 12:[address] Respiratory Rate - - Oxygen Saturation - - Inhaled Oxygen Concentration - - Weight - - Height - - Body Mass Index - - documented in this encounter Progress Notes * Taina Serrano, PLAY WRITER - 05/09/2020 11:40 AM EST Arthroplasty/Orthopaedic History: 1. Right knee uni-compartment knee replacement. Outside provider. 2. Left knee TKA. DOS: 03/29/2020. Dr. Jacobson. Chief Complaint: First global post op for LEFT knee TKA. HPI: Rafael Willoughby is a very pleasant 59 y.o. year-old female and is now 5 weeks status post left total knee replacement The patient has been doing ok. Pain is controlled with current analgesics. Medication(s) being used: chronic pain medication oxycodone as directed by her PCP. There was reportedlysome difficulty communicating with our office for the first post op opioid med request and Rafael does report frustration in that regard. She fees that communication with our office has been poor. No drenching night sweats. No fevers, chills, nausea, vomiting, or symptoms of infection. There is some dependent edema and swelling about the left calf using compression stockings and elevation with some improvement. She wonders if she should be concerned in that regard. Rafael has been ambulating with acane and working with PT. She is taking narcotic pain medicine as above. Here with her for her first global post op appointment. Anticoagulation status ASA 81 mg BID for 30 days discussed stop date as directed in [facility] Patient's medications, allergies, past medical, surgical, social and family histories were reviewedand updated as appropriate. ROS: Denies: fever, chills, night sweats, nausea, or vomiting Physical Exam: Vitals: 05/09/20 1206 BP: 122/57 Pulse: 59 Temp: 36.6 ??C (97.9 ??F) There is no height or weight on file to calculate BMI. Well-appearing female in no acute distress. Alert and Oriented x 3 and answers all questions appropriately. The incision is well approximated with very mild hyperemia at the most distal aspect of theincision with no radha-incisional erythema or evidence of infection. The left calf is with moderate dependent edema with mild pain. No palpable cords. Negative homans' sign. EHL/FHL 5/5. Knee Exam: Left Knee ROM: Extension:0 Flexion: 120 Alignment: 0-4 degrees Neutral Stability: A/P Translation <5mm Varus <5mm Valgus <5mm Extension La degrees or less Patella Tracking: Normal Pulses Palpable: Left PT:Yes Left DP:Yes Motor/Sensory: Distal Motor: Normal Distal Sensory: Normal Quadriceps Strength: 5 X-RAYS: Multiple radiographic views were obtained at my request and reviewed with the patient. X-rays show a well-placed prosthesis with no evidence of fracture, subsidence, loosening, or periprosthetic complication. Questionnaire Responses: NONE ASSESSMENT/PLAN: Ms. Willoughby is a 59 y.o. year old female status post left total knee replacement. Doing ok postoperatively. No obvious complications. Left calf pain and swelling. Consider DVT. Will obtain a duplex US on the way out and I will call her with the results. In the interim, Remain on oralaspirin 81 mg twice a day until less sedentary. Compression stockings, elevation, frequent ankle pumps. Continue weightbearing as tolerated and working on range of motion. Updated home care orders recommended as she feels that she remains homebound at this time. I have already ordered this as a future order in the computer. We will see her back in 6 weeks for repeat examination. No X-rays will beneeded at that time. Patient may return to normal activities as her pain and function allow. We discussed the appropriate precautions surrounding dental prophylaxis; according to the AAOS Appropriate Use Criteria we do not recommend antibiotic use prior to dental procedures for Rafael. Recommended antibiotic: N/A If Rafael has any changes in health status we recommend she contact our office prior to dental procedures for updated recommendations Should maintain good foot care and giving prompt attention to any source of infection throughout the body including foot ulcers and urinary tract infections. All questions were answered. Signed: TAINA SERRANO APRN 05/09/2020 documented in this encounter Plan of Treatment Upcoming Encounters Date Type Department Care Team (Latest Contact Info) Description 04/06/2024 11:30 AM EST Hospital Encounter [place] [address] Cadence Eric MD [facility] [place] [address] 04/06/2024 11:30 AM EST - 04/06/2024 12:50 PM EST Surgery [place] [address] Cadence Eric MD [facility] [place] [address] IMPLANT NEUROSTIMULATOR ELECTRODES, PERIPHERAL NERVE (WRVU 5.76) 04/14/2024 2:30 PM EST Office Visit [place] [phone] Cadence Eric MD [facility] [place] [address] Scheduled Procedures Name Priority Associated Diagnoses Date/Ti [...] to Physical Therapy Outpatient Referral Routine s/p Left Total Knee Arthroplasty - 03/29/2020 Dr. Jacobson Ordered: 05/09/2020 documented as of this encounter Results * Duplex for DVT, Leg, Unilat (05/09/2020 12:54 PM EST) VB Text Report Department: Vascular Surgery Lab Patient: [id number] (RAFAEL WILLOUGHBY) CPT: 08288 ICD10: M79.89 Referring Physician: TAINA SERRANO ?? Phone: Indications: LLE swelling s/p L TKA, ?DVT ICD10 Diagnosis Code: M79.89 Findings: LEFT: Patent common femoral vein and popliteal vein with spontaneous, respirophasic Doppler waveforms that respond normally to augmentation maneuvers. The common femoral vein, saphenofemoral junction, femoral vein through the thigh and popliteal vein are fully compressible. Patent posterior tibial veins with no evidence of thrombus. Not able to adequately visualize the peroneal veins, cannot exclude thrombus. Interpretation: LEFT: No evidence of lower extremity deep venous thrombosis groin to knee and in the posterior tibial veins. Not able to adequately visualize the peroneal veins, cannot exclude thrombus. Comparison: ??No previous study in our vascular lab database for comparison. Electronically Signed by: FRANCISCO JAVIER JOHNSON on 2020-05-10 01:37:19 PM [facility] VB Text Report End of Report [facility] 05/09/2020 12:5 4 PM EST Taina Serrano APRN VASCULAR ORDERABLES [facility] documented in this encounter Visit Diagnoses Diagnosis Left leg swelling- Primary s/p Left Total Knee Arthroplasty - 03/29/2020 Dr. Jacobson Primary localized osteoarthrosis, lower leg Saphenous neuralgia, right documented in this encounter Care Teams Heel Sorter Relationship Specialty Start Date End Date Bob Day MD [address] [place] [address] PCP - General Family Medicine 01/18/18 07/26/20 documented as of this encounter
--- OUTSIDE RECORDS SUMMARY | 2024-04-05 16:28 | XMS_ITS | Encounter Summary ---
Author Organization [facility] Address [facility] [place] [address] Care Team Providers Care Bookseamer Blindstitch Name Role Phone Bob Day MD Primary Care Provider [phone] [phone] Encounter Details Date Type Department Care Team (Late st Contact Info) Description 04/04/2020 Orders Only [place] [address] Sherrell Alcantar MD [facility] DR [place] [address] Social History Tobacco Use Types Packs/Day Years [...] AM EST Hospital Encounter [place]patient [place] [phone] Cadence Eric MD [facility] [place] [address] 04/06/2024 11:30 AM EST - 04/06/2024 12:50 PM EST Surgery [place]patient [place] [address] Cadence Eric MD [facility] [place] [address] IMPLANT NEUROSTIMULATOR ELECTRODES, PERIPHERAL NERVE (WRVU 5.76) 04/14/2024 2:30 PM EST Office Visit [facility] [place] [phone] Cadence Eric MD [facility] [place] [address] Scheduled Procedures Name Priority Associated Diagnoses Date/Ti [...] on filedocumented in this encounter Care Teams Bookseamer Blindstitch Relationship Specialty Start Date End Date Bob Day MD [address] [place] [address] PCP - General Family Medicine 01/18/18 07/26/20 documented as of this encounter
--- OUTSIDE RECORDS SUMMARY | 2024-04-05 16:28 | XMS_ITS | Encounter Summary ---
Author Organization [facility] Address [facility] [place] [address] Care Team Providers Care Insurance Sales Producer Name Role Phone Bob Day MD Primary Care Provider [phone] [phone] Reason for Visit * Reason Onset Date Comments Medication Refill 06/20/2020 Encounter Details Date Type Department Care Team (Late st Contact Info) Description 06/20/2020 Refill Primary Care at [facility] [address] [place] [address] Bob Day MD [address] [place] [address] s/p Left Total Knee Arthroplasty - 03/29/2020 [...] Telephone Encounter - Brisa Beard CMA - 06/20/2020 10:40 AM EST Caller: Etelvina Cuadra Relationship to Patient: self Best number to be reached: Rx Renewal: PCP: Bob Day MD Last encounter this office: Visit date not found Last relevant appointment: 02/16/2020 w/Dr. Day Next appt this provider: 07/02/2020 Last Prescription Fill Date: 05/24/2020 Number Dispensed and Refills: 84 w/0 refs Medication and Dose: Oxycodone 10mg 1 po tid prn UDS: 10/14/2018 Contract: 09/29/2019 [place] searched: Opioid [place]MP 04/03/2020 02/21/2020 06/24/2018 [place] Query Date 04/03/2020 02/21/2020 07/15/2018 [place] PDMP Query Date 04/03/2020 02/21/2020 07/15/2018 [place] Query Date 04/03/2020 02/21/2020 07/15/2018 Send to Pharmacy: [id number] - [place], [place] - [address] [place] [id number] Lab Results Component Value Date HGB 7.7 [...] AM EST Hospital Encounter Outpatient [place] [address] Cadence Eric MD [facility] [place] [address] 04/06/2024 11:30 AM EST - 04/06/2024 12:50 PM EST Surgery Outpatient [place] [address] Cadence Eric MD [facility] [place] [address] IMPLANT NEUROSTIMULATOR ELECTRODES, PERIPHERAL NERVE (WRVU 5.76) 04/14/2024 2:30 PM EST Office Visit Pain [place] [phone] Cadence Eric MD [facility] [place] [address] Scheduled Procedures Name Priority Associated Diagnoses Date/Ti [...] documented in this encounter Care Teams Insurance Sales Producer Relationship Specialty Start Date End Date Bob Day MD [facility] [place] [address] PCP - General Family Medicine 01/18/18 07/26/20 documented as of this encounter
--- OUTSIDE RECORDS SUMMARY | 2024-04-05 16:28 | XMS_ITS | Encounter Summary ---
Author Organization [facility] Address [facility] [place] [address] Care Team Providers Care Agricultural Pilot Name Role Phone Bob Day MD Primary Care Provider [phone] [phone] Reason for Visit * Reason Onset Date Comments Other 04/03/2020 Encounter Details Date Type Department Care Team (Late st Contact Info) Description 04/03/2020 Telephone [place] [address] Maykel Jacobson MD [facility] [place] [address] Other Social History Tobacco Use Types Packs/Day [...] encounter Miscellaneous Notes * Telephone Encounter - Izzy Lazaro RMA - 04/04/2020 9:37 AM ESTSummary: PDMP Images from the original note were not included. Checked PDMP to confirm patient has not received Oxycodone script written on 04/03/2020. Routed scripts for oxycodone and gabapentin to Dr. Jacobson. * Telephone Encounter - Shira Young - 04/03/2020 4:46 PM EST Pt called requesting a new prescription be sent to [facility] in [place], [place] for Oxycodone. The prescription that was sent today is unable to be filled as their system does not recognize the resident that wrote it. The new prescription needs to be signed by Dr. Jacobson. documented in this encounter Plan of Treatment Upcoming Encounters Date Type Department Care Team (Latest Contact Info) Description 04/06/2024 11:30 AM EST Hospital Encounter [place] [address] Cadence Eric MD [facility] [place] [address] 04/06/2024 11:30 AM EST - 04/06/2024 12:50 PM EST Surgery [place] [address] Cadence Eric MD [facility] [place] [address] IMPLANT NEUROSTIMULATOR ELECTRODES, PERIPHERAL NERVE (WRVU 5.76) 04/14/2024 2:30 PM EST Office Visit [place] [address] Cadence Eric MD [facility] [place] [address] Scheduled Procedures Name Priority Associated Diagnoses Date/Ti [...] on filedocumented in this encounter Care Teams Agricultural Pilot Relationship Specialty Start Date End Date Bob Day MD [address] [place] [address] PCP - General Family Medicine 01/18/18 07/26/20 documented as of this encounter
--- OUTSIDE RECORDS SUMMARY | 2024-04-05 16:28 | XMS_ITS | Encounter Summary ---
Author [facility] [place] [address] Care Team Providers Care Paintings Conservator Name Role Phone Bob Day MD Primary Care Provider [phone] Reason for Visit * Reason Onset Date Comments Medication Refill 05/22/2020 Encounter Details Date Type Department Care Team (Late st Contact Info) Description 05/22/2020 Refill Primary Care at [address] [phone] Prema More CMA s/p Left Total Knee Arthroplasty - 03/29/2020 [...] * Telephone Encounter - Sharona Mallory - 05/24/2020 4:01 PM EST Patient phoned checking status of her oxycodone refill. [facility]. Patient is due for refill tomorrow. * Telephone Encounter - Brisa Beard CMA - 05/23/2020 8:49 AM EST Caller: Etelvina Cuadra Relationship to Patient: self Best number to be reached: Rx Renewal: PCP: Bob Day MD Last encounter this office: Visit date not found Last relevant appointment: 02/16/2020 Next appt this provider: 06/20/2020 Last Prescription Fill Date: 04/27/2020 Number Dispensed and Refills: 84 w/no refs Medication and Dose: Oxycodone 10mg 1 po tid prn UDS: 10/14/2018 Contract: 09/29/2019 [place] searched: Opioid PDMP 04/03/2020 02/21/2020 06/24/2018 [place] Query Date 04/03/2020 02/21/2020 07/15/2018 [place] PDMP Query Date 04/03/2020 02/21/2020 07/15/2018 [place] Query Date 04/03/2020 02/21/2020 07/15/2018 Send to Pharmacy: [id number] - [address] [address] Lab Results Component Value Date HGB 7.7 [...] AM EST Hospital Encounter Out[facility] [place] [address] Cadence Eric MD [facility] [place] [address] 04/06/2024 11:30 AM EST - 04/06/2024 12:50 PM EST Surgery Outpatient [place] [address] Cadence Eric MD [facility] [place] [address] IMPLANT NEUROSTIMULATOR ELECTRODES, PERIPHERAL NERVE (WRVU 5.76) 04/14/2024 2:30 PM EST Office Visit [facility] [place] [address] Cadence Eric MD [facility] [place] [address] Scheduled Procedures Name Priority Associated Diagnoses Date/Ti [...] right documented in this encounter Care Teams Paintings Conservator Relationship Specialty Start Date End Date Bob Day MD [address] [place] [address] PCP - General Family Medicine 01/18/18 07/26/20 documented as of this encounter
--- OUTSIDE RECORDS SUMMARY | 2024-04-05 16:28 | XMS_ITS | Encounter Summary ---
Author Organization [facility] Address [facility] [place] [address] Care Team Providers Care Tube Room Cashier Name Role Phone Bob Day MD Primary Care Provider [phone] Encounter Details Date Type Department Care Team (Late st Contact Info) Description 04/20/2020 Telephone [place] [address] Maykel Jacobson MD [facility] [place] [address] Social History Tobacco Use Types Packs/Day Years [...] Miscellaneous Notes * Telephone Encounter - Jennifer Parekh - 04/24/2020 9:58 AM EST This needs to go through Norma and the PA/Appeals department as surgery already took place. No action needed by Orthopaedics at this time. * Telephone Encounter - Debbie Jimenez - 04/20/2020 2:47 PM EST Pt had a L TKA with Dr. Jacobson on 03/29/2020. Pt called in today regarding swelling and pain in her L knee. Pt stated the swelling would not go down even after she followed KARENA, and has been doingexercises with PT and Force. Patient was given a refill of Oxycodone 5mg every 4 hours as need. Shestates that the pain decreased. She states she is taking all medication as prescribed. She denies chills, fever, discoloration, discharge from the surgical site or other sign of infection. I stated the Pt should be elevating the L leg above her heart and icing as well as performing ankle pumps to help with the swelling. She states that she will do this and report back with question or concerns. She also stated her insurance is has denied coverage for her surgery and she would like had questions about coverage/ who to talk with. I stated I was unaware at the time of who to talk with, and we would get back to her in regards of her question. No further questions or concerns at the time documented in this encounter Plan of Treatment Upcoming Encounters Date Type Department Care Team (Latest Contact Info) Description 04/06/2024 11:30 AM EST Hospital Encounter [place] [address] Cadence Eric MD [facility] [place] [address] 04/06/2024 11:30 AM EST - 04/06/2024 12:50 PM EST Surgery [place] [address] Cadence Eric MD [facility] [place] [address] IMPLANT NEUROSTIMULATOR ELECTRODES, PERIPHERAL NERVE (WRVU 5.76) 04/14/2024 2:30 PM EST Office Visit [facility] [place] [address] Cadence Eric MD [facility] [place] [address] Scheduled Procedures Name Priority Associated Diagnoses Date/Ti [...] on filedocumented in this encounter Care Teams Tube Room Cashier Relationship Specialty Start Date End Date Bob Day MD [address] [place] [address] PCP - General Family Medicine 01/18/18 07/26/20 documented as of this encounter
--- OUTSIDE RECORDS SUMMARY | 2024-04-05 16:28 | XMS_ITS | Encounter Summary ---
[place] [address] Care Team Providers Care Inventory Associate Name Role Phone Bob Day MD Primary Care Provider [phone] Reason for Visit * Reason Onset Date Comments Post-op Problem 04/20/2020 Encounter Details Date Type Department Care Team ([facility] Contact Info) Description 04/20/2020 Telephone [place] [phone] Lilia Ac RMA Post-op Problem Social History Tobacco Use Types [...] encounter Miscellaneous Notes * Telephone Encounter - Lilia Ac RMA - 04/23/2020 3:59 PM EST Triage Note Subjective: Post op sweling SP Surgeon Role Maykel Jacobson MD Primary Toan Rocha MD Resident Procedure Laterality Anesthesia TOTAL KNEE ARTHROPLASTY (WRVU 20.72) Left ?? MODIFIER,GMK SPHERE EFFICIENCY CS (FLEX) KNEE,MEDACTA N/A DOS 03/29/2020 Díaz questions/Assessment: Etelvina called today to report that she still has swelling. I reviewed the note from WAGNER Lewis. We talked about RICE. She stated that she would try using a jose wrap to see if that would help. She under stands how to elevate. Her Home PT told her that maybe she should take A fluid pill. Etelvina told me that if she decided's that is what she needs she will call her PCP. Etelvina will call us tomorrow to let us know how the jose warp worked and if she has any concerns. * Telephone Encounter - Lilia Ac RMA - 04/20/2020 8:38 AM EST Triage Note Subjective: Post op pain and swelling SP Panel 1 Surgeon Role Maykel Jacobson MD Primary RochaToan MD Resident Procedure Laterality Anesthesia TOTAL KNEE ARTHROPLASTY (WRVU 20.72) Left MODIFIER,GMK SPHERE EFFICIENCY CS (FLEX) KNEE,MEDACTA N/A DOS 03/29/2020 Díaz questions/Assessment: Etelvina called in this morning with concern with the swelling and pain in her knee. She reports no falls or injuries. She stated that the swelling goes right down there foot. She told me that she follows RICE. She wants to find out if this is normal and she is concerned. Etelvina also wants us to know that she does not want any medications sent to [facility] in [place], [place] They should only be sent to [facility] in [place], [place]. (notes under patient care teams) I let Etelvina know that I would like to send a message to our Ortho nurses and would like to have thiscall triaged. Etelvina agreed to this plan. . documented in this encounter Plan of Treatment Upcoming Encounters Date Type Department Care Team (Latest Contact Info) Description 04/06/2024 11:30 AM EST Hospital Encounter [place] [address] Cadence Eric MD [facility] [place] [address] 04/06/2024 11:30 AM EST - 04/06/2024 12:50 PM EST Surgery [place] [address] Cadence Eric MD [facility] [place] [address] IMPLANT NEUROSTIMULATOR ELECTRODES, PERIPHERAL NERVE (WRVU 5.76) 04/14/2024 2:30 PM EST Office Visit [facility] [place] [address] Cadence Eric MD [facility] [place] [address] Scheduled Procedures Name Priority Associated Diagnoses Date/Ti [...] on filedocumented in this encounter Care Teams Inventory Associate Relationship Specialty Start Date End Date Bob Day MD [address] [place] [address] PCP - General Family Medicine 01/18/18 07/26/20 documented as of this encounter
--- OUTSIDE RECORDS SUMMARY | 2024-04-05 16:28 | XMS_ITS | Encounter Summary ---
Author Organization [facility] [place] [address] Care Team Providers Care Buying Agent Name Role Phone Bob Day MD Primary Care Provider [phone] Reason for Visit * Reason Onset Date Comments Results 05/09/2020 Encounter Details Date Type Department Care Team ([facility] st Contact Info) Description 05/09/2020 Telephone [place] [address] Taina Serrano APRN [facility] [place] [address] Results Social History Tobacco Use Types Packs/Day [...] encounter Miscellaneous Notes * Telephone Encounter - Taina Serrano APRN - 05/09/2020 4:37 PM EST Called with duplex US results. No obvious DVT. Cannot rule out peroneal thrombus due to location ofUS. Recommend elevation, ankle pumps, compression stockings. Ok to stay on oral aspirin 81 mg twicea day until she becomes more mobile. She did ask for a refill of baclofen. Ok for us to refill once for muscle spasm, yet PCP will need to take over the prescription. She request a fx to [facility]. Baclofen should not be used at the same time as narcotic analgesics, no driving or using heavy machinary. She agrees and appreciative of the call. documented in this encounter Plan of Treatment Upcoming Encounters Date Type Department Care Team (Latest Contact Info) Description 04/06/2024 11:30 AM EST Hospital Encounter [place] [address] Cadence Eric MD [facility] [place] [address] 04/06/2024 11:30 AM EST - 04/06/2024 12:50 PM EST Surgery [place] [address] Cadence Eric MD [facility] [address] IMPLANT NEUROSTIMULATOR ELECTRODES, PERIPHERAL NERVE (WRVU 5.76) 04/14/2024 2:30 PM EST Office Visit [place] [address] Cadence Eric MD [facility] [address] Scheduled Procedures Name Priority Associated Diagnoses Date/Ti [...] on filedocumented in this encounter Care Teams Buying Agent Relationship Specialty Start Date End Date Bob Day MD [address] [place] [address] PCP - General Family Medicine 01/18/18 07/26/20 documented as of this encounter
--- OUTSIDE RECORDS SUMMARY | 2024-04-05 16:28 | XMS_ITS | Encounter Summary ---
Author Organization [facility] Address [facility] [place] [address] Care Team Providers Care Bed And Breakfast Cook Name Role Phone Bob Day MD Primary Care Provider [phone] Reason for Visit * Auth/Cert Specialty Diagnoses / Procedures Referred By Cindy t Referred To Contact Diagnoses left knee osteoarthritis Procedures PRO TOTAL KNEE ARTHROPLASTY TOTAL KNEE ARTHROPLASTY (WRVU 20.72) MODIFIER,GMK SPHERE EFFICIENCY CS (FLEX) KNEE,MEDACTA Referral ID Status Reason Start Date Expiration Date Visits Re quested Visits Authorized [id number] 1 1 Encounter Details Date Type Department Care Team (Latest Contact Info) Description 03/29/2020 1:09 PM EST - 04/01/2020 3:40 PM [facility] Encounter 3 [place] [address] Mechelle Jacobson MD [facility] DR ORTHOPAEDIC [place] [address] Primary osteoarthritis of left knee; Morbid obesity; Chronic pain of left knee; Primary osteoarthritis of left knee; Morbid obesity; Chronic pain of left knee; s/p Left Total Knee Arthroplasty - 03/29/2020 [...] Sign Reading Time Taken Comments Blood Pressure 111/58 04/01/2020 11:29 AM EST Pulse 81 03/31/2020 1:57 PM EST Temperature 36.8 ??C (98.2 ??F) 04/01/2020 11:[address] Respiratory Rate 19 04/01/2020 11:29 AM EST Oxygen Saturation 96% 04/01/2020 11:29 AM EST Inhaled Oxygen Concentration - - Weight 99.8 kg (220 lb 0.3 oz) 03/30/2020 7:30 A M EST Height 152.4 cm (5') 03/30/2020 7:30 AM EST Body Mass Index 42.97 03/30/2020 7:30 AM EST documented in this encounter Discharge Summaries * James Burton MD - 04/01/2020 8:40 AM EST Images from the original note were not included. Discharge Summary Patient Name: Etelvina Cuadra Patient Age: 59 y.o. Language: Ecuadorean Race: White Ethnicity: Not nor Admit date: 03/29/2020 Discharge date and time: 04/01/2020 Attending Physician: Mechelle Jacobson MD Discharge Physician: Mechelle Jacobson MD Follow-up Recommendations for Providers: See discharge instructions for additional details. Future Appointments Date Time Provider Department Center 05/01/2020 10:15 AM [facility] DX ROOM 3 MH Xray MH Rad 05/01/2020 11:10 AM Mechelle Jacobson MD [facility] [place] [facility] [facility] [place]/20/2020 1:30 PM Bob Day MD [facility] Inpatient Provider Contact Information: Mechelle Jacobson MD Orthopedics: [phone] After hours and weekends, call [facility], , and have the Orthopedic resident paged. Discharge Diagnoses (Hospital Problems) and Secondary Diagnoses (Chronic Problems): Active Hospital Problems Diagnosis ??? s/p Left Total Knee Arthroplasty - 03/29/2020 Dr. Jacobson ??? Osteoarthritis of left knee ??? Primary osteoarthritis of left knee ??? Morbid obesity with BMI of 45.0-49.9, adult ??? Chronic pain of left knee ??? Morbid obesity Resolved Hospital Problems No resolved problems to display. Active Non-Hospital Problems Diagnosis ??? Presence of intrathecal pump ??? Anxiety and depression ??? HLD (hyperlipidemia) ??? Chronic pain disorder ??? Chronic bilateral low back pain with bilateral sciatica ??? Chronic prescription opiate use ??? Acquired hypothyroidism ??? Postlaminectomy syndrome of lumbar region ??? Cervicalgia Operations/Major Procedures: 03/29/2020 - 03/30/2020 Surgeon(s) and Role: * Mechelle Jacobson MD - Primary * Toan Rocha MD - Resident Procedure(s): TOTAL KNEE ARTHROPLASTY (WRVU 20.72) MODIFIER,GMK SPHERE EFFICIENCY CS (FLEX) KNEE,MEDACTA History of Presentation: Etelvina Cuadra is a 59 y.o. year old female being seen today to discuss her left knee. Her history and physical exam were reviewed in detail. ?? She states the knee has been symptomatic for months. The pain is predominantly medial. There was not inciting trauma/injury. She does not describe hip pain. She feels that her knee pain is keeping her from walking normally. ?? Aggravating factors include activity, stair climbing, deep knee bending. Alleviating factors include rest, ice, medication: Aleve, Tylenol used but not effective, the use of a brace/sleeve. Etelvina has no pain at night.. She can weight bear on the left leg and does not use assistive devices. She has not tried physical therapy. She recently had a morphine pump placed to deliver intrathecal morphine. Additionally she takes oxycodone for breakthrough medication. Previously she was on extremely high doses of OxyContin including in the perioperative period of her right unicompartmental knee replacement. ?? She has not had injections into the joint: none ?? She has NSAIDs/Pain meds: Aleve, Tylenol used but not effective ?? She has brace treatment: ?? Ms. Cuadra denies fevers/chills/headache/chest pain/shortness of breath/abdominal pain/nausea or vomiting/weight changes ?? She does not endorse a history of DVT/PE or clotting disorder. Hospital Course: The patient was admitted via Same Day Surgery for the above operation. DVT prophylaxis: Aspirin 81 mg BID x 30 days. Patient began rehab on POD#1 w/ weight bearing as tolerated of left leg remembering to use protection at all times for balance and protection. The patient was voiding spontaneously. Wound inspected POD#3 and found to be benign. Patient did not have a bowel movement prior to discharge but was passing flatus . The patient's Hgb 7.0 11/, responded appropriately with 1 u pRBC 11/, Hgb 7.7, asymptomatic 11/ AM. The patient was found to have blood pressures in the 160s and medicine was curbsided, with no acute intervention recommended as this likely was from fluids given she was +2.5L. The patient was asymptomatic upon discharge. By POD#3 the patient was medically stableand was cleared for safe discharge to home. Vital Signs at Discharge: Weight: Wt Readings from Last 1 Encounters: 03/30/20 99.8 kg (220 lb 0.3 oz) Height: Ht Readings from Last 1 Encounters: 03/30/20 152.4 cm (5') HC: HC Readings from Last 1 Encounters: No data found for HC BMI: Body mass index is 42.97 kg/m??. Last value Range last 24 hrs Temperature Temp: 36.8 ??C (98.2 ??F) Temp: [36.4 ??C (97.5 ??F)-37.1 ??C (98.8 ??F)] Heart Rate Heart Rate: 81 Heart Rate: -- Blood Pressure BP: 111/58 BP: (84-111)/(40-58) Respiratory Rate Resp: 19 Resp: [16-19] SpO2 SpO2: 96 % SpO2: [94 %-100 %] Art BP BP (Arterial Line): (n/a) BP (Arterial Line): -- Functional and Cognitive Status: Patient mobilizing with use of walker, cognitively intact at baseline mental status at [...] 14 17 14 CREATININE 0.87 1.05 1.23* Studies: Film Library- Storage Only Pain Clinic Ultrasound Result Date: 03/12/2020 See PACS for result report. Pending Studies and Lab Data at Discharge: * No orders in the log * Transfusions: Yes, 1 of PRBC, 03/31 date, SHERRI Hgb 7.0 Discharge Conditions/Prognosis: Stable, awake, and alert. Mobilizing as noted above, pain controlled on oral medications. Discharge to: Home Updated Allergies/ADRs: Allergies Allergen Reactions ??? Peanut [...] Vaccine, Adult 01/07/2019 ??? Influenza Vaccine PF, Seasonal, Injectible 02/12/2018, 01/07/2019, 02/16/2020 Discharge Medications: Your Medications New Medications Dose Details acetaminophen 500 mg Tab Commonly known as: Tylenol Take 2 tablets by mouth every 8 hours. 1,000 mg Refills: 0 aspirin EC 81 mg Tbec Take 1 tablet by mouth 2 times daily for 30 days. 81 mg Refills: 0 baclofen 10 mg Tab Commonly known as: Lioresal Take 1 tablet by mouth 3 times daily. 10 mg Quantity: 90 tablet Refills: 0 bisacodyl EC 5 mg Tbec Commonly known as: Dulcolax Take 2 tablets by mouth 2 times daily as needed for Constipation. 10 mg Refills: 0 naproxen 275 mg Tab Commonly known as: ANAPROX Take 1 tablet by mouth 2 times daily (with meals) for 30 days. 275 mg Quantity: 60 tablet Refills: 0 omeprazole 20 mg Tbec Commonly known as: PriLOSEC OTC Take 1 tablet by mouth daily for 30 days. 20 mg Quantity: 30 tablet Refills: 0 senna-docusate 8.6-50 mg Tab Commonly known as: Pericolace Take 1 tablet by mouth daily. 1 tablet Refills: 0 Continued medications with new dosing Dose Details * oxyCODONE 10 mg Tab Commonly known as: ROXICODONE Take 1 tablet by mouth 3 times daily. What changed: Another medication with the same name was added. Make sure you understand how and when to take each. 10 mg Quantity: 84 tablet Refills: 0 * oxyCODONE 5 mg Tab Commonly known as: Roxicodone Take 1-3 tablets by mouth every 3 hours as needed for Pain. What changed: You were already taking a medication with the same name, and this prescription was added. Make sure you understand how and when to take each. 5-15 mg Quantity: 45 tablet Refills: 0 * This list has 2 medication(s) that are the same as other medications prescribed for you. Read thedirections carefully, and ask your doctor or other care provider to review them with you. Continued medications, unchanged Dose Details Bifidobacterium infantis 4 mg Cap Commonly known as: ALIGN Take by mouth daily. Refills: 0 citalopram 20 mg Tab Commonly known as: CeleXA 20 mg daily. 20 mg Refills: 0 EPINEPHrine 1 mg/mL Kit Inject as directed as needed. Refills: 0 fenofibrate 160 mg Tab Commonly known as: TRIGLIDE Take 160 mg by mouth nightly. 160 mg Refills: 0 levothyroxine 100 mcg Tab Commonly known as: Synthroid 100 MCG = 1 Tablet(s), PO, Once daily Refills: 0 morphine 100 % Powd 10 mg/mL by Intrathecal route continuous. Quantity: 42 mL Refills: 0 Morphine in D5W 1 mg/mL Resv Inject as directed. Refills: 0 multivitamin with minerals Tab Take 1 tablet by mouth daily. 1 tablet Refills: 0 Narcan 4 mg/actuation [place] instill 1 spray in 1 NOSTRIL if needed for opioid overdose may re... (REFER TO PRESCRIPTION NOTES). Generic drug: naloxone Refills: 0 Os-Nico 500 + D3 500mg (1,250mg) -600 unit Tab Take by mouth Daily. Generic drug: calcium carbonate-vitamin D3 Refills: 0 polyethylene glycoL 17 gram Pwpk Commonly known as: Miralax Take by mouth as needed. Refills: 0 * ProAir HFA 90 mcg/actuation Hfaa inhale 1 to 2 puffs by mouth every 4 to 6 hours if needed for wheezing Generic drug: albuteroL Refills: 0 * ProAir HFA 90 mcg/actuation Hfaa Inhale 1-2 puffs into the lungs Every 4 hours. Generic drug: albuteroL 1-2 puff Refills: 0 * This list has 2 medication(s) that are the same as other medications prescribed for you. Read thedirections carefully, and ask your doctor or other care provider to review them with you. Smoking Status at Discharge: Social History Tobacco Use Smoking Status Former Smoker ??? Packs/day: 0.25 ??? Types: Cigarettes ??? Quit date: 09/23/1991 ??? Years since quittin.5 Smokeless Tobacco Never Used Instructions Given to Patient at Discharge: Patient Instructions Activity: 1. Your weight-bearing status is - weight bearing as tolerated of left leg. 2. Remember to use a walker or crutches as needed for balance and protection. Your physical therapist [...] You are being discharged on enteric-coated Aspirin 81 mg by mouth twice a day. Continue this for 30 days after surgery. After day 30 after surgery, stop the Aspirin, unlessyou are told otherwise by your Orthopedic surgeon. Take this medication with food or large amounts (240 mL) of water or milk to minimize GI irritation. Diet: Resume your [...] bowel movement. You can also take an hktt-yao-jivlcpf medication, Miralax if needed to combat constipation. 2. If you need a renewal on your narcotic pain medication, you need to give the Orthopedic clinic enough time to process your request. This can take up to three days, so plan accordingly. 3. Continue acetaminophen (Tylenol) 1,000mg every 8 hours around the clock for ten days after your surgery. This can be effective in controlling pain along with your other medications. After that youcan take Tylenol as needed per package insert. Do not take more than 3,000mg of acetaminophen in a 24 hour period. 4. You have been discharged on a short acting narcotic, oxycodone. You will be on this medication for a limited period of time only. Take the smallest dose possible to control your pain. As your painimproves take smaller, less frequent doses. You may break the tablet to achieve a smaller dose. 5. You are being discharged on prescription strength naproxen (Aleve). This medication is a type ofnonsteroidal anti-inflammatory (NSAID). This will help with your pain and inflammation. Take this twice a day for the next 6 weeks. If you no longer are requiring the narcotic pain medication you maychange the way you take the prescribed naproxen and instead take twice a day as needed. 6. You are being discharged on a proton pump inhibitor (Protonix). This will decrease stomach irritation that may be caused by NSAIDs. Take this daily for the next 6 weeks while you are on the NSAID. 7. You are being discharged on gabapentin (Neurontin), a non-narcotic medication that will help with your pain at night and allow you to sleep better. Take this at night for the next 4 weeks. Shower (internal sutures): 1. You can shower [...] internal and will be absorbed over time. 2. You have a Mepilex dressing in place. Do not lift the edge of the Mepilex dressing to inspect the incision, it will not re-adhere. Remove your operative dressing 7 days after your surgery. When itis removed you can leave the incision open to air or cover it with a light dressing. Some patients have an additional item called Prinbrinda on their skin. If you have this it will appear as a mesh dressing directly over the incision. Please leave this in place until your follow up with orthopedics. 3. If you have lots of drainage when you get home, remove the operative dressing and replace it [...] as much as possible. Call your doctor ([phone]) if you develop: 1. Fever greater than 100.5 2. Severe nausea or vomiting 3. Increasing pain that is not controlled by pain medications 4. Increasing redness, swelling, or drainage from incisions 5. Change in sensation FOLLOW-UP APPOINTMENTS: 1. You will have follow-up appointments at [facility] as indicated below in Future Appointment and Orders. 2. You will need to have x-rays prior to your follow-up appointment. Please come to Radiology, desT, 1 hour BEFORE that appointment for those x-rays. Future Appointments Date Time Provider Department Center 05/01/2020 10:15 AM [facility] DX ROOM 3 MH Xray [facility] Rad 05/01/2020 11:10 AM Mechelle Jacobson MD [facility] [place] 06/20/2020 1:30 PM Bob Day MD [facility] If you have questions or concerns: Thursday through Thursday, 8 AM - 5 PM, please call Dr. Mechelle Jacobson MD's office at . If it is after 5 PM, the weekend, or holidays, please call and ask to speak with theOrthopedic resident on-call. General Instructions None Future Appointments and Orders Future Appointments and Orders Future Appointments Provider Department Dept Phone 05/01/2020 10:15 AM [facility] DX ROOM 3 XRay at [facility] Arrive at: Chief Pharmacist Area 3T [phone] Please go to Chief Pharmacist Area 3T ([place] Location). 05/01/2020 11:10 AM Mechelle Jacobson MD Orthopaedics at [facility] Arrive at: Chief Pharmacist Area 3C [phone] 06/20/2020 1:30 PM Bob Day MD Primary Care at [facility] Arrive at: Main Entrance 2nd Floor Check In [phone] Future Orders Complete By Expires Referral to Home Health - at DISCHARGE [[id number] CPT(R)] As directed Process Instructions: Scheduling Instructions: Comments: DOCUMENTATION FOR VNA SERVICES (INCLUDING PATIENTS WITH MEDICARE COVERAGE BEING DISCHARGED HOME WITH VNA SERVICES AND/OR HOSPICE SERVICES) PATIENT'S LOCATION: [facility] Discharge to own home: [address] [place] [address] [place] [phone] [employer] Setter's Name: self/patient In discussion with the attending physician, it is certified that this patient is under their care and that they, or a nurse practitioner, clinical nurse specialist or physician's loan assistant who is working directly with them, had a face to face encounter that meets the physician face to face encounter requirements with this patient on 03/30/2020 The encounter with the patient was in whole, or in part, for the following medical condition, whichis the primary reason for home health care services: s/p left total knee arthroplasty In discussion with the primary medical team, it is certified that, based on their findings, the indicated services are medically necessary and appropriate for home health services. HOME HEALTH AGENCY: [facility] PHONE: [phone] FAX: [phone] [facility](SN) eval if indicated on admission visit Activity: Weight bearing as tolerated. Closure: Resorbable sutures. Dressing: Mepilex Ag x7 days. Do not lift the edge of the [...] home require considerable and taxing effort due to: requires assistance of another to navigate community surfaces Please note that any additional orders needs or changes will need to be obtained from this patient's PCP: Bob Day MD [address] [place] [address] All [facility] agencies which cover patient's residence area have been reviewed, either verbally or in writing, and patient/family have chosen the indicated home health agency. Questions: Agency name and contact information: [facility] Patient location post discharge: home What services are requested: Physical Therapy Start date: Responsible MD post discharge contact info: Primary Care Provider: Bob Day MD [phone] Discharge References/Attachments None documented in this encounter Discharge Instructions * Patient Instructions* Rafa Tucker MD - 03/31/2020 8:28 PM EST Activity: 1. Your weight-bearing status is - weight bearing as tolerated of left leg. 2. Remember to use a walker or crutches as needed for balance and protection. Your physical therapist [...] You are being discharged on enteric-coated Aspirin 81 mg by mouth twice a day. Continue this for 30 days after surgery. After day 30 after surgery, stop the Aspirin, unlessyou are told otherwise by your Orthopedic surgeon. Take this medication with food or large amounts (240 mL) of water or milk to minimize GI irritation. Diet: Resume your [...] bowel movement. You can also take an ggnf-rbn-qcoxobq medication, Miralax if needed to combat constipation. 2. If you need a renewal on your narcotic pain medication, you need to give the Orthopedic clinic enough time to process your request. This can take up to three days, so plan accordingly. 3. Continue acetaminophen (Tylenol) 1,000mg every 8 hours around the clock for ten days after your surgery. This can be effective in controlling pain along with your other medications. After that youcan take Tylenol as needed per package insert. Do not take more than 3,000mg of acetaminophen in a 24 hour period. 4. You have been discharged on a short acting narcotic, oxycodone. You will be on this medication for a limited period of time only. Take the smallest dose possible to control your pain. As your painimproves take smaller, less frequent doses. You may break the tablet to achieve a smaller dose. 5. You are being discharged on prescription strength naproxen (Aleve). This medication is a type ofnonsteroidal anti-inflammatory (NSAID). This will help with your pain and inflammation. Take this twice a day for the next 6 weeks. If you no longer are requiring the narcotic pain medication you maychange the way you take the prescribed naproxen and instead take twice a day as needed. 6. You are being discharged on a proton pump inhibitor (Protonix). This will decrease stomach irritation that may be caused by NSAIDs. Take this daily for the next 6 weeks while you are on the NSAID. 7. You are being discharged on gabapentin (Neurontin), a non-narcotic medication that will help with your pain at night and allow you to sleep better. Take this at night for the next 4 weeks. Shower (internal sutures): 1. You can shower [...] internal and will be absorbed over time. 2. You have a Mepilex dressing in place. Do not lift the edge of the Mepilex dressing to inspect the incision, it will not re-adhere. Remove your operative dressing 7 days after your surgery. When itis removed you can leave the incision open to air or cover it with a light dressing. Some patients have an additional item called Prineo on their skin. If you have this it will appear as a mesh dressing directly over the incision. Please leave this in place until your follow up with orthopedics. 3. If you have lots of drainage when you get home, remove the operative dressing and replace it [...] as much as possible. Call your doctor ([phone]) if you develop: 1. Fever greater than 100.5 2. Severe nausea or vomiting 3. Increasing pain that is not controlled by pain medications 4. Increasing redness, swelling, or drainage from incisions 5. Change in sensation FOLLOW-UP APPOINTMENTS: 1. You will have follow-up appointments at [facility] as indicated below in Future Appointment and Orders. 2. You will need to have x-rays prior to your follow-up appointment. Please come to Radiology, desk3T, 1 hour BEFORE that appointment for those x-rays. Future Appointments Date Time Provider Department Center 05/01/2020 10:15 AM [facility] DX ROOM 3 MH Xray [facility] Rad 05/01/2020 11:10 AM Mechelle Jacobson MD [facility] [place] [facility] 06/20/2020 1:30 PM Bob Day MD [facility] If you have questions or concerns: Thursday through Thursday, 8 AM - 5 PM, please call Dr. Mechelle Jacobson MD's office at . If it is [...] daily. 2 gummies daily=4MG NARCAN 4 mg/actuation [place], Non-Aerosol instill 1 spray in 1 NOSTRIL if needed for opioid overdose may re... (REFER TO PRESCRIPTION NOTES). 0 12/08/2018 multivitamin with minerals Tablet Take 1 tablet by mouth daily. morphine sulfate/D5W (MORPHINE IN D5W) 1 mg/mL Prefilled Pump [place] Inject as directed. Has intrathecal pump with continuous rate and Has 5 preset prn boluses pt may give herself omeprazole (PriLOSEC) 20 mg Capsule, Delayed Release(E.C.) 04/01/20202020 aspirin EC 81 mg Tablet, Delayed Release (E.C.) Take 1 tablet by mouth 2 times daily for 30 days. 04/01/2020 05/01/2020 naproxen (ANAPROX) 275 mg Tablet Take 1 tablet by mouth 2 times daily (with meals) for 30 days. 60 tablet 04/01/2020 05/01/2020 omeprazole (PriLOSEC OTC) 20 mg Tablet, Delayed Release (E.C.) Take 1 tablet by mouth daily for 30 days. 30 tablet 04/01/2020 05/01/2020 senna-docusate (Pericolace) 8.6-50 mg Tablet Take 1 tablet by mouth daily. 04/01/2020 08/27/2022 acetaminophen (Tylenol) 500 mg Tablet Take 2 tablets by mouth every 8 hours. 04/01/2020 09/04/2021 baclofen (Lioresal) 10 mg Tablet Take 1 tablet by mouth 3 times daily. 90 tablet 04/01/2020 05/09/2020 bisacodyl EC (Dulcolax) 5 mg Tablet, Delayed Release (E.C.) Take 2 tablets by mouth 2 times daily as needed for Constipation. 04/01/2020 07/02/2020 oxyCODONE (Roxicodone) 5 mg Tablet Take 1-3 tablets by mouth every 3 hours as needed for Pain. 45 tablet 04/01/2020 04/03/2020 oxyCODONE (ROXICODONE) 10 mg Tablet Take 1 tablet by mouth 3 times daily. 84 tablet 03/30/2020 04/04/2020 albuteroL 90 mcg/actuation HFA Aerosol Inhaler Inhale 1-2 puffs into the lungs Every 4 hours. 12/06/2018 09/04/2021 PROAIR HFA 90 mcg/actuation HFA Aerosol Inhaler inhale 1 to 2 puffs by mouth every 4 to 6 hours if needed for wheezing 0 12/06/2018 06/20/2020 citalopram (CeleXA) 20 mg Tablet 20 mg daily. 0 02/04/2019 05/09/2020 morphine 100 % Powd 10 mg/mLIndications:Post laminectomy syndrome,Postlaminect moraima syndrome by Intrathecal route continuous. 42 mL 12/01/2018 09/09/2021 polyethylene glycol (MIRALAX) 17 gram Powder in Packet Take by mouth as needed. 05/09/2020 EPINEPHrine 1 mg/mL Kit Inject as directed as needed. 09/04/2021 fenofibrate (TRIGLIDE) 160 mg Tablet Take 160 mg by mouth nightly. 11/15/2015 07/25/2020 levothyroxine (SYNTHROID) 100 mcg tablet 100 MCG = 1 Tablet(s), PO, Once daily 03/19/2010 07/25/2020 documented as of this encounter Progress Notes * Sue Alvarado RN - 04/01/2020 3:37 PM EST Patient discharged to home. IV removed, site benign. My assessment remains unchanged from my previous assessment. Patient denies chest pain and shortness of breath. Discussed pain management with patient, pain tolerable. Patient medicated prior to discharge. Patient has all belongings. Patient received discharge summary and prescriptions. These were reviewed. All questions answered. Patient encouraged to call with questions or concerns. Patient discharged to home with . * Rafa Tucker MD - 04/01/2020 6:59 AM EST ORTHOPAEDIC SURGERY INPATIENT PROGRESS NOTE Patient Name: Etelvina Cuadra Age: 59 y.o. Surgery/Issue: Left Total Knee Arthroplasty Attending: Dr. Jacobson Date of surgery: 03/29/2020 SUBJECTIVE / INTERVAL HISTORY: Ms. Cuadra is doing well this morning. Hgb to be 7.7 this morning - likely related to post op anemiaand hemodilution as she is now asymptomatic. She notes she continues to work on flexing/motiong herLLE which has helped with her pain. States her pain regimen is effective and has been happy with this despite the discomfort. Will work w/PT for stairs today. Ms. Cuadra denies nausea, vomiting, chest pain, shortness of breath, tingling, numbness, fevers, or chills. FOCUSED REVIEW OF SYSTEMS: As above. Active Hospital Problems Diagnosis ??? s/p Left Total Knee Arthroplasty - 03/29/2020 Dr. Jacobson ??? Osteoarthritis of left knee ??? Primary osteoarthritis of left knee ??? Morbid obesity with BMI of 45.0-49.9, adult ??? Chronic pain of left knee ??? Morbid obesity Resolved Hospital Problems No resolved problems to display. Active Non-Hospital Problems Diagnosis ??? Presence of intrathecal pump ??? Anxiety and depression ??? HLD (hyperlipidemia) ??? Chronic pain disorder ??? Chronic bilateral low back pain with bilateral sciatica ??? Chronic prescription opiate use ??? Acquired hypothyroidism ??? Postlaminectomy syndrome of lumbar region ??? Cervicalgia MEDICATIONS: ??? ketorolac (Toradol) (15 mg/mL) injection 15 mg ??? albuteroL (PROVENTIL) nebulizer solution 2.5 mg ??? citalopram (CeleXA) tablet 20 mg ??? fenofibrate micronized (Lofibra) capsule 200 mg ??? levothyroxine (Synthroid) tablet 100 mcg ??? sodium chloride 0.9 % (flush) flush 5 mL ??? sodium chloride 0.9 % (flush) flush 5-20 mL ??? lidocaine (XYLOCAINE) 10 mg/mL (1 %) injection 3 mg ??? polyethylene glycoL (Miralax) packet 17 g ??? senna-docusate (Pericolace) 8.6-50 mg per tablet 2 tablet ??? bisacodyl EC (Dulcolax) tablet 10 mg ??? bisacodyL (Dulcolax) suppository 10 mg ??? pantoprazole EC (Protonix) tablet 20 mg ??? aspirin EC tablet 81 mg ??? naphazoline-pheniramine (NAPHCON-A) 0.025-0.3 % ophthalmic solution 2 drop ??? lidocaine (LIDODERM) 5 % patch 3 patch AND lidocaine (LIDODERM) patch REMOVAL ??? oxyCODONE (Roxicodone) tablet 5-15 mg ??? baclofen (Lioresal) tablet 10 mg ??? oxyCODONE (Roxicodone) tablet 5 mg ??? BUpivacaine (PF) (MARCAINE) 0.25 % (2.5 mg/mL) injection ??? acetaminophen (Tylenol) tablet 1,000 mg ??? celecoxib (CeleBREX) capsule 200 mg ??? sodium chloride 0.9% infusion ??? sodium chloride 0.9% Stopped (03/30/20 0300) OBJECTIVE: Temp: [36.4 ??C (97.5 ??F)-37.1 ??C (98.8 ??F)] Heart Rate: [81-91] Resp: [16-18] BP: (82-107)/(40-54) Intake/Output Summary (Last 24 hours) at 04/01/2020 0659 Last data filed at 04/01/2020 0400 Gross per 24 hour Intake 2495 ml Output 1550 ml Net 945 ml BMI: Weight: 99.8 kg (220 lb 0.3 oz) (03/30/20 0730) BMI (Calculated): 42.96 BMI Classification: Morbid Obesity Body mass index is 42.97 kg/m??. Physical Exam: General: Comfortable appearing female sitting upright in bed in no acute distress, alert and oriented, answering questions appropriately, pleasant affect. CV: Regular rate and rhythm by peripheral palpation. Resp: Breathing comfortably on room air. LLE: Cryocuff in place. Mepilex dressing to anterior knee clean and dry. Mild amount of swelling to knee. Sensation intact to light touch in sural/saphenous/SP/DP/T distributions. Motor intact to knee flexion/extension, ankle plantarflexion/dorsiflexion, EHL/FHL. Brisk capillary refill distally, foot warm/well-perfused. Lab Results Component Value Date NA 140 04/01/2020 K 4.9 04/01/2020 CL 108 (H) 04/01/2020 CO2 26 04/01/2020 BUN 14 04/01/2020 CREATININE 0.87 04/01/2020 GLUCOSE 111 04/01/2020 GLUCFASTING 164 (H) 10/17/2016 CALCIUM 8.7 04/01/2020 Lab Results Component Value Date WBC 10.9 (H) 04/01/2020 HGB 7.7 (L) 04/01/2020 HCT 24.5 (L) 04/01/2020 MCV 89.7 04/01/2020 PLATELET 265 04/01/2020 Lab Results Component Value Date INR 1.0 02/21/2020 ASSESSMENT / PLAN: Etelvina Cuadra is a 59 y.o. female with history of obesity, post-laminectomy syndrome, chronic pain with intrathecal morphine pump and chronic use of PO Oxycodone, and severe left knee osteoarthritis who is now 3 Days Post-Op from left total knee arthroplasty by Dr. Jacobson. Will monitor Hgb levels as she is 7.7 - likely related to post op anemia and hemodilution. Likely DC today vs tomorrow - PT rec dispo home w/[facility] (will work on stairs again today w/PT). Activity: Weight bearing as tolerated. Closure: Resorbable sutures. Dressing: Mepilex Ag x7 days. Drain: N/A. Anticoagulation: ASA 81 mg BID for 30 days. Antibiotics: Periop Ancef. Consults: PT/OT. Dispo:Pending PT/OT eval. Follow-up: 05/01/2020 Dr. Kavon Tucker MD 04/01/2020 Future Appointments Date Time Provider Department Center 05/01/2020 10:15 AM [facility] DX ROOM 3 MH Xray [facility] Rad 05/01/2020 11:10 AM Mechelle Jacobson [place] [facility] [place] [facility] [place] 1:30 PM Bob Day MD [facility] * Lily Roldan Fay - 03/31/2020 4:49 PM EST Problem: Patient Care Overview Goal: Plan of Care Review Outcome: Ongoing (Interventions Implemented as Appropriate) OUTCOME EVALUATION NOTE: ?? OUTCOME SUMMARY: Hypotensive, Hgb 7.0, MD Tomlin notified, per MD Tomlin refer to primary team, MD Tuckernotified, 1 unit RBC administered, see flowsheet. Denies SOB, chest pain and n/t. C/o 5-7 pain, see MAR for medications administered and updated med list. Left knee silver mepilex CDI. Cryocuff inplace. Voiding in bathroom. LBM 03/29, passing gas. Tolerating regular diet. OOB with SBA and FWW, worked with PT/OT this morning, see note. Will continue to monitor and plan for PT/OT again tomorrow. ?? PLAN MOVING FORWARD: Monitor BPs Pain control PT dc planning ?? INDIVIDUALIZED FALL PREVENTION INTERVENTIONS: ?? Patient-specific fall risk factors per assessment: [current deficits]:?Generalized weakness, Within 24-hours of OR, pain medications, hospitalization ?? Assistance [level of assistance required for transfers and ambulation]:?OOB with walker and SBA ?? Supervision [direct monitoring required during toileting and ADLs]:?Eyes on ?? Surveillance [continuous indirect monitoring]:?Masimo, hourly rounding, safety checks and nurse knowledge sign-off. ?? Patient-specific fall prevention interventions for sensory deficits provided, if applicable:?No ? CPG GOAL OUTCOME EVALUATION:? * Rafa Tucker MD - 03/31/2020 9:55 AM EST ORTHOPAEDIC SURGERY INPATIENT PROGRESS NOTE Patient Name: Etelvina Cuadra Age: 59 y.o. Surgery/Issue: Left Total Knee Arthroplasty Attending: Dr. Jacobson Date of surgery: 03/29/2020 SUBJECTIVE / INTERVAL HISTORY: Ms. Cuadra is doing well this morning. Early AM/Late last night she had some fatigue and was noted on morning Hgb to be 7.0 likely related to post op anemia and hemodilution as she is now asymptomatic. She is doing very well and has no dizziness, CP, SOB, fatigue. Drinking water and about to eat breakfast. She is concerned on pain and attainting ride so will see on DC today vs tomorrow. Denies nausea, vomiting, chest pain, shortness of breath, tingling, numbness, fevers, or chills. FOCUSED REVIEW OF SYSTEMS: As above. Active Hospital Problems Diagnosis ??? s/p Left Total Knee Arthroplasty - 03/29/2020 Dr. Jacobson ??? Osteoarthritis of left knee ??? Primary osteoarthritis of left knee ??? Morbid obesity with BMI of 45.0-49.9, adult ??? Chronic pain of left knee ??? Morbid obesity Resolved Hospital Problems No resolved problems to display. Active Non-Hospital Problems Diagnosis ??? Presence of intrathecal pump ??? Anxiety and depression ??? HLD (hyperlipidemia) ??? Chronic pain disorder ??? Chronic bilateral low back pain with bilateral sciatica ??? Chronic prescription opiate use ??? Acquired hypothyroidism ??? Postlaminectomy syndrome of lumbar region ??? Cervicalgia MEDICATIONS: ??? albuteroL (PROVENTIL) nebulizer solution 2.5 mg ??? citalopram (CeleXA) tablet 20 mg ??? fenofibrate micronized (Lofibra) capsule 200 mg ??? levothyroxine (Synthroid) tablet 100 mcg ??? sodium chloride 0.9 % (flush) flush 5 mL ??? sodium chloride 0.9 % (flush) flush 5-20 mL ??? lidocaine (XYLOCAINE) 10 mg/mL (1 %) injection 3 mg ??? polyethylene glycoL (Miralax) packet 17 g ??? senna-docusate (Pericolace) 8.6-50 mg per tablet 2 tablet ??? bisacodyl EC (Dulcolax) tablet 10 mg ??? bisacodyL (Dulcolax) suppository 10 mg ??? pantoprazole EC (Protonix) tablet 20 mg ??? aspirin EC tablet 81 mg ??? naphazoline-pheniramine (NAPHCON-A) 0.025-0.3 % ophthalmic solution 2 drop ??? lidocaine (LIDODERM) 5 % patch 3 patch AND lidocaine (LIDODERM) patch REMOVAL ??? oxyCODONE (Roxicodone) tablet 5-15 mg ??? baclofen (Lioresal) tablet 10 mg ??? oxyCODONE (Roxicodone) tablet 5 mg ??? BUpivacaine (PF) (MARCAINE) 0.25 % (2.5 mg/mL) injection ??? acetaminophen (Tylenol) tablet 1,000 mg ??? ketorolac (Toradol) (15 mg/mL) injection 15 mg ??? celecoxib (CeleBREX) capsule 200 mg ??? sodium chloride 0.9% infusion ??? sodium chloride 0.9% Stopped (03/30/20 0300) OBJECTIVE: Temp: [36.6 ??C (97.9 ??F)-37.3 ??C (99.1 ??F)] Heart Rate: [85] Resp: [16-17] BP: (82-102)/(42-58) Intake/Output Summary (Last 24 hours) at 03/31/2020 0955 Last data filed at 03/31/2020 0857 Gross per 24 hour Intake 1520 ml Output 2100 ml Net -580 ml BMI: Weight: 99.8 kg (220 lb 0.3 oz) (03/30/20 0730) BMI (Calculated): 42.96 BMI Classification: Morbid Obesity Body mass index is 42.97 kg/m??. Physical Exam: General: Comfortable appearing female sitting upright in bed in no acute distress, alert and oriented, answering questions appropriately, pleasant affect. CV: Regular rate and rhythm by peripheral palpation. Resp: Breathing comfortably on room air. LLE: Cryocuff in place. Mepilex dressing to anterior knee clean and dry. Mild amount of swelling to knee. Sensation intact to light touch in sural/saphenous/SP/DP/T distributions. Motor intact to knee flexion/extension, ankle plantarflexion/dorsiflexion, EHL/FHL. Brisk capillary refill distally, foot warm/well-perfused. Lab Results Component Value Date NA 138 03/31/2020 K 4.2 03/31/2020 CL 107 03/31/2020 CO2 24 03/31/2020 BUN 17 03/31/2020 CREATININE 1.05 03/31/2020 GLUCOSE 128 03/31/2020 GLUCFASTING 164 (H) 10/17/2016 CALCIUM 8.3 (L) 03/31/2020 Lab Results Component Value Date WBC 8.6 03/31/2020 HGB 7.0 (L) 03/31/2020 HCT 22.1 (L) 03/31/2020 MCV 90.9 03/31/2020 PLATELET 249 03/31/2020 Lab Results Component Value Date INR 1.0 02/21/2020 ASSESSMENT / PLAN: Etelvina Cuadra is a 59 y.o. female with history of obesity, post-laminectomy syndrome, chronic pain with intrathecal morphine pump and chronic use of PO Oxycodone, and severe left knee osteoarthritis who is now 2 Days Post-Op from left total knee arthroplasty by Dr. Jacobson. Will monitor Hgb levels as she is 7.0 but asymptomatic and likely related to post op anemia and hemodilution. Likely DC today vs tomorrow - PT rec dispo home w/VNA. Activity: Weight bearing as tolerated. Closure: Resorbable sutures. Dressing: Mepilex Ag x7 days. Drain: N/A. Anticoagulation: ASA 81 mg BID for 30 days. Antibiotics: Periop Ancef. Consults: PT/OT. Dispo:Pending PT/OT eval. Follow-up: 05/01/2020 Dr. Kavon Tucker MD 03/31/2020 Future Appointments Date Time Provider Department Center 05/01/2020 10:15 AM [facility] DX ROOM 3 MH Xray [facility] Rad 05/01/2020 11:10 AM Mechelle Jacobson MD [facility] [place] [facility] [place] 1:30 PM Bob Day MD [facility] * Lily Roldan - 03/30/2020 1:21 PM EST Problem: Patient Care Overview Goal: Plan of Care Review Outcome: Ongoing (Interventions Implemented as Appropriate) OUTCOME EVALUATION NOTE: OUTCOME SUMMARY: Denies chest pain, SOB, n/v and n/t. VSS. C/o 02/17 pain, see MAR for medications administered and updated med list. Left knee silver mepilex CDI. Cryocuff in place. Voiding in bathroom. LBM 03/29. Tolerating liquids. OOB with SBA and FWW. Worked with PT/OT. Will continue to monitor. PLAN MOVING FORWARD: Pain control PT dc planning INDIVIDUALIZED FALL PREVENTION INTERVENTIONS: Patient-specific fall risk factors per assessment: [current deficits]: Generalized weakness, [id number] of OR, pain medications, hospitalization Assistance [level of assistance required for transfers and ambulation]: OOB with walker and 1 assist Supervision [direct monitoring required during toileting and ADLs]: 2-assist Surveillance [continuous indirect monitoring]: Masimo, hourly rounding, safety checks and nurse knowledge sign-off. Patient-specific fall prevention interventions for sensory deficits provided, if applicable: No CPG GOAL OUTCOME EVALUATION: * Radha Chilel, PT - 03/30/2020 12:52 PM ESTSummary: DC Rec: home with home health PT, home with assist, not cleared, needs 1-2 days Physical Therapy Evaluation Patient profile: Etelvina Cuadra is a 59 y.o. female admitted on 03/29/[address] Mechelle Jacobson MD for Left Total Knee Arthroplasty. Patient with the following active problems: Past [...] she had her morphine ??? Depression ??? Heart valve disease had a murmur for her whole life ??? Hypothyroid Take synthroid ??? Incisional hernia, with obstruction, without gangrene 06/24/2018 ??? jail current use of opiate analgesic Oxycodone 10 [...] WITH BX performed by NIKKI MAYORGA at [facility] ENDOSCOPY ??? PRO COLONOSCOPY, DIAGNOSTIC 09/23/2011 COLONOSCOPY, DIAGNOSTIC performed by NIKKI MAYORGA at [facility] ENDOSCOPY ??? PRO ELECTRONIC PUMP ANALYSIS W REPROGRAMMING AND REFILL BY /PAEDIATRIC THORACIC PHYSICIAN N/A 03/30/2019 ELECTRONIC HERNANDEZ PROG., PUMP- DRUG INFUS; W/ REPROGRAM & REFILL MILAGRO DAWSON (WRVU 0.9) performed by Karl Becker MD at [facility] PAIN MGMT MSO ??? PRO ELECTRONIC PUMP ANALYSIS W REPROGRAMMING AND REFILL BY /NAHID N/A 12/05/2019 ELECTRONIC HERNANDEZ PROG., PUMP- DRUG INFUS; W/ REPROGRAM & REFILL REQ (WRVU 0.9) performed by Karl Becker MD at [facility] PAIN MGMT MSO ??? PRO ELECTRONIC PUMP ANALYSIS W REPROGRAMMING AND REFILL BY /NAHID N/A 03/12/2020 ELECTRONIC HERNANDEZ PROG., PUMP- DRUG INFUS; W/ REPROGRAM & REFILL REQ (WRVU 0.9) performed by Karl Becker MD at [facility] PAIN MGMT MSO ??? PRO IMP SPINAL CANAL CATH Midline 03/23/2019 IMPLANT, REV OR REP TUNNELED INTRATHACAL OR EPIDURAL CATHETER (WRVU 6.05) performed by Karl Becker MD at [facility] MAIN OR ??? PRO INSERT/ REPLACE INFUSN PUMP, PROGRAMMABLE Right 03/23/2019 IMPLANT OR REPLACE PROG. PUMP-DRUG INFUSION (WRVU 5.6) [facility] ??? PRO LAP, CHOLECYSTECTOMY/GRAPH N/A 10/18/2016 LAPAROSCOPIC CHOLECYSTECTOMY WITH CHOLANGIOGRAM (WRVU 11.47) performed by Tasia Umaña MD at [facility] OR ??? PRO LAP, VENTRAL HERNIA REPAIR, INCARCERATED N/A 07/12/2018 LAPAROSCOPIC HERNIA, VENTRAL, INCARCERATED, W-WO MESH (WRVU 14.94) performed by Izzy Blanco MD at [facility] OR ??? PRO TOTAL KNEE ARTHROPLASTY Left 03/29/2020 TOTAL KNEE ARTHROPLASTY (WRVU 20.72) performed by Mechelle Jacobson MD at [facility] MAIN OR Active Non-Hospital Problems Diagnosis ??? Presence of intrathecal pump ??? Anxiety and depression ??? HLD (hyperlipidemia) ??? Chronic pain disorder ??? Chronic bilateral low back pain with bilateral sciatica ??? Chronic prescription opiate use ??? Acquired hypothyroidism ??? Postlaminectomy syndrome of lumbar region ??? Cervicalgia Social History: Home set-up: Patient lives in 1-level mobile home with (off x1 week to assist) Bathroom Set-up: Tub/shower, in the process of trying to acquire shower bench Stairs: 5 LESLEY, railing on the left Baseline Mobility: Ambulating with cane independently Equipment at home: FWW, cane Fall history: None Precautions/Special Considerations: Fall Risk Lines: PIV Activity Orders: WBAT LLE Diet: Regular Mobility and Positioning Recommendations: ?? Pt. to utilize SBA and FWW for ambulation and transfers with nursing. ?? Please encourage up to chair for meal times as able. ?? Pt encouraged to ambulate frequently with staff, getting into the bathroom for toileting and walking out in the iyer >/= 3 times daily as able. Subjective: ???My blood pressures run really low, they always tell me that at the doctors?? Objective: Pt seen for evaluation today and presented as follows. Pain: Number Location At rest 08/18 Left knee and Quadricep With activity 8/10 Left knee and Quadricep Vital Signs: At Rest With Activity SpO2 (RA) 94% 90's% BP (MAP) 95/44 mmHg (Supine), 101/59mmHg (EOB) 98/77mmHg HR 90bpm 112 bpm Mental Status: Alert, Oriented, Anxious, Apprehensive about pain with movement Vision: WFLs, wears glasses Skin: WNLs Musculoskeletal: ROM: Left Knee: ~90 degrees flexion, lacking ~20 degrees extension Strength: WFLs, unable to perform Left SLR, difficulty with SAQ exercise Sensation: Intact Bed Mobility: Supine to Sit: independent with increased time Sit to Supine: N/A patient returned to bedside recliner Comments: Patient out of bed to right side, HOB elevated, required verbal cuing and encouragement throughout Transfers: Sit to Stand: modified independent using FWW from bed, toilet, and recliner Stand to Sit: minimum assist using FWW to slow decent Comments: Patient cued for proper hand placement, patient able to stand pushing up from surface with one arm and holding onto walker with other. Patient required verbal encouragement due to apprehension. Gait: Distance: 30 ft Device Used: FWW Level of Assist: CGA x1 assist and chair follow Gait Mechanics: Antalgic gait, heavy use of arms with FWW Comments: Patient ambulation limited by pain and fatigue. Patient experience fatigue in right arm (triceps) due to heavy use of arms. Stairs: N/A Balance: Sitting Static: Good Sitting Dynamic: Good Standing Static: Fair-Good with AD Standing Dynamic / Gait: Fair with AD Therex: [id number] hamstring sets, quadriceps sets, gluteal sets, adductor sets, short arc quad, long arc quad, ankle pumps, seated knee flexion - handout provided Education: patient has been educated on Bed mobility, Transfers, Assistive device/technique, Positioning, Safety , Precautions/protocol, Gait , Role of therapy and Discharge planning and verbalizes understanding. Patient status, treatment, and mobility recommendations discussed with nursing. Assessment: Etelvina Cuadra was seen today for physical therapy evaluation. Pt presented with physical impairments of , strength, ROM, balance, pain and activity tolerance which are currently contributing to functional limitations. The patient presented with increased pain, and apprehension, but was very pleasant and participatory in evaluation. The patient was able to sitat EOB independently, but required increased time, and step by step instruction as well as verbal encouragement. Patient was able to stand without assistance using the FWW but required closer assistance for ambulation due to gait deviations caused by pain/apprehension with accepting weight on left leg. Patient able to ambulate 30 ft, then requested to return to room. Ambulation limited most by pain, and fatigue, particularly right triceps as patient was using arms heavily on FWW. Suspect that with increased confidence and pain control patient will progress to discharge home with home PT. Pt will benefit from skilled therapy services throughout hospitalization to promote safety, independence, and provide developmental support/caregiver education. Discharge Recommendations: Based on the current findings, Anticipated Discharge Disposition: home with home health, home with assist when medically ready for hospital discharge. Discharge [...] consults recommended at this time. Equipment Needs: Patient has all necessary equipment Cleared PT?: NO Goals: To be achieved by 04/01/20: 1. Pt. to demonstrate knowledge of safety limitations and precautions and will appropriately request assistance for functional activities and to mobilize. 2. Pt. to demonstrate understanding of appropriate exercises. 3. Pt. to perform bed mobility independently. Met 4. Pt. to perform all transfers with modified independence using FWW. 5. Pt. to ambulate 50 feet with modified independence using FWW. 6. Pt. to ambulate up/down 4 step/stairs using two hand hold on left rail with modified independence. 7. Family or caregiver to demonstrate understanding of therapeutic interventions to support the care of the patient. 8. Pt will tolerate progression towards upright with stable vital signs. Plan: Therapy Frequency: 1-3 more visits for therapy including bed mobility training, gait training, patient/family education, stair training and transfer training. Patient/family understand and agree with plan as stated above. 2017 PT Evaluation Code Rationale: ?? Diagnosis & Pertinent Co-Morbidities, personal factors, and present illness affecting Plan of Care: (see above); Additional personal factors or co- morbidities that impact plan: ?? Total # of Factors: 0 1-2 3+ x ?? Examination of body system impairments, functional limitations and behaviors, and/or participation restrictions. Addressing 1-2 elements Addressing 3 + elements x Addressing 4 + elements ?? Clinical presentation: See assessment above. Stable/Uncomplicated Evolving/Fluctuating Symptoms Unstable/Unpredictable x ?? Clinical decision making of moderate complexity based on pt's functional performance as outlinedin this evaluation. Time IN / OUT: :/10:52 Total Evaluation Minutes, Physical Therapy: 52(Eval, TESx1) Ana Sinclair , SPT Pager: [phone] Physical Therapy Inpatient Rehabilitation Department Patient status, treatment interventions, and goals discussed with student. I am in agreement with all details and associated flowsheet rows as documented and was present for all aspects of the patient treatment session. Radha Chilel PT, DPT Pager #[phone] * Radha Chilel, PT - 03/30/2020 10:37 AM EST Physical Therapy Contact Note Patient seen for PT evaluation and mobility. Patient NOT cleared yet from PT/mobility standpoint. Will plan to continue mobilization with nursing staff/mobility tech and re-assess for PT tomorrow as appropriate/able. Patient will need home PT for discharge home. Staff Communication/Mobility Recommendations: ?? Discharge home with home health PT over weekend ?? Mobilize short distances with FWW and SBA ?? OOB to chair x3 daily ?? Ice knee 20 minutes/hour Full note to follow. Please page with any questions or concerns. Radha Chilel PT, DPT Pager: [phone] 03/30/20 Inpatient Rehabilitation Department * Toan Rocha MD - 03/30/2020 8:39 AM EST ORTHOPAEDIC SURGERY INPATIENT PROGRESS NOTE Patient Name: Etelvina Cuadra Age: 59 y.o. Surgery/Issue: Left Total Knee Arthroplasty Attending: Dr. Jacobson Date of surgery: 03/29/2020 SUBJECTIVE / INTERVAL HISTORY: Mrs. Cuadra reports having significant left knee pain once her block resolved overnight. She received a one-time dose of IV Dilaudid, which was helpful. She has been mobilizing to the bathroom withoutdifficulty and has been voiding spontaneously. She tolerated dinner and denies having any nausea, vomiting, chest pain, shortness of breath, tingling, numbness, fevers, or chills. FOCUSED REVIEW OF SYSTEMS: As above. Active Hospital Problems Diagnosis ??? s/p Left Total Knee Arthroplasty - 03/29/2020 Dr. Jacobson ??? Osteoarthritis of left knee ??? Primary osteoarthritis of left knee ??? Morbid obesity with BMI of 45.0-49.9, adult ??? Chronic pain of left knee ??? Morbid obesity Resolved Hospital Problems No resolved problems to display. Active Non-Hospital Problems Diagnosis ??? Presence of intrathecal pump ??? Anxiety and depression ??? HLD (hyperlipidemia) ??? Chronic pain disorder ??? Chronic bilateral low back pain with bilateral sciatica ??? Chronic prescription opiate use ??? Acquired hypothyroidism ??? Postlaminectomy syndrome of lumbar region ??? Cervicalgia MEDICATIONS: ??? albuteroL (PROVENTIL) nebulizer solution 2.5 mg ??? citalopram (CeleXA) tablet 20 mg ??? [START ON 03/31/2020] fenofibrate micronized (Lofibra) capsule 200 mg ??? levothyroxine (Synthroid) tablet 100 mcg ??? sodium chloride 0.9 % (flush) flush 5 mL ??? sodium chloride 0.9 % (flush) flush 5-20 mL ??? lidocaine (XYLOCAINE) 10 mg/mL (1 %) injection 3 mg ??? polyethylene glycoL (Miralax) packet 17 g ??? senna-docusate (Pericolace) 8.6-50 mg per tablet 2 tablet ??? bisacodyl EC (Dulcolax) tablet 10 mg ???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 therapy/rehabilitation, Transfers, Assistive device/technique, ADL, Safety, Precautions/Protocol, Functional Mobility, Balance, Recommendations and Discharge planning and verbalizes understanding. Patient status, treatment, and mobility recommendations discussed with nursing. Patient is in bed with call light in reach and alarm on. Nursing aware of patient's location and status. Assessment: Pt has been seen for occupational therapy evaluation. Etelivna Cuadra presents with the following performance skill deficits and client factors: increased pain, decreased activity tolerance,deconditioning, compromised mobility status, dizziness and coping. These performance deficits have led to activity limitations and participation restrictions in the following areas of occupation: dressing, bathing, transfers/mobility, home management, leisure and community mobility. Patient presents 32.79% limited in ADL performance per the [facility]. Patient mostly limited today by dizziness with functional mobility. Anticipate as this is controlled, patient will progress well with OT and be able to discharge home with spousal assistance. Pt would benefit from further inpatient OT interventions to address performance deficits and maximize participation and independence with occupations of daily living. Equipment needs at discharge: None Anticipated Discharge Disposition: home with assist Other Recommendations: ?? Utilize upright chair position using bed features or transfer to recliner chair as appropriate with assistance as needed, ambulate as tolerated ?? Encourage participation in ADL's by providing set up A on tray table and physical assist only asneeded ?? Encourage up to chair for all meals Other Recommendations: No other consults recommended at this time Goals: To be achieved by 04/06/2020. Patient will stand at sink level with independence x10 min for ADLs. Patient will dress lower body indep with adaptive equipment prn. Patient will ambulate to the bathroom with supervision, assistive device as needed. Patient will demonstrate energy conservation principals with all ADLs indep. Patient will complete all aspects of toileting with independence, assistive device as needed. Plan: OT: Therapy Frequency: 1-3 more visits Planned OT interventions: Role of occupational therapy/rehabilitation, Transfers, Assistive device/technique, ADL, Breathing exercises, Safety, Functional Mobility, Balance, Recommendations and Discharge planning. Total Evaluation Minutes, Occupational Therapy: 24(Mod Complexity Eval ) 2017 OT Evaluation Code Rationale: ?? Diagnosis & Pertinent Co-Morbidities affecting Plan of Care: see PMHx ?? Occupational Profile & Client History: Brief Expanded Extensive x ?? Assessment of Occupational Performance: 1-3 performance deficits 3-5 performance deficits x 5 + performance deficits ?? Clinical Decision Making: Low Moderate High x Clinical decision making of moderate complexity using standardized patient assessment instrument and measurable assessment of functional outcome. Pager: [phone] Karla Dowling OT 03/31/2020 Occupational Therapy Rehabilitation Department * Plan of Care - Jero Stephenson OT - 03/30/2020 3:08 PM EST Chart reviewed and orders received. Attempted to see patient x4 today. First attempt, patient declining due to need for pain meds. Returned and patient eating. On third attempt, patient just got backto bed and asleep. On fourth return, patient with c/o significant pain and muscle spasms. Patient reports she is supposed to stay in bed and let the muscle spasms decrease. We will f/u tomorrow with evaluation. Jero Stephenson OTR/L [id number] * Initial Assessments - Mirella Cano, RN - 03/30/2020 7:40 AM EST Office of Care Management Assessment Medical record reviewed. Plan of care and patient status discussed with direct care RN and/or Care Team. Screen[age] y.o. female here for s/p Left Total Knee Arthroplasty Present on Admission: ??? Osteoarthritis of left knee Patient has not been admitted to a hospital within the last 30 days. Patient receiving hospital care under Inpatient status. Admission order reviewed. Last COVID test and result Date and Time: Resulted: 03/27/2020 06:42 Status: Final result Specimen Information: Nasopharyngeal Swab Symptoms->Asymptomatic ?? Component Value Flag Ref Range Units Status SARS-CoV-2 RNA Not Detected Not Detected Final Comment: Primary Insurance on file: BLUE CROSS BLUE [employer]IELD OOS Secondary Insurance on file:@ Prescription Insurance: Yes Primary care provider on file: Bob Day MD [phone] Advance Directive on file and Code Status: <no information>, Attempt Cardiopulmonary Resuscitation - Inpatient The patient will require VNA services post-op: yes, patient/caregivers were educated about their right to choose where referrals are placed patient lives in [place], no preference on VNA. ?? Prep for Surgery Advance Directive: Has one (will bring in copy) Recommend referral to Patient Financial Services: No Living arrangement: House Home layout: One level, Able to live on main level, Stairs to enter w/ rails Number of stairs within home: 0 Who will provide post-op care and support: Who will provide transportation home: Patient's desired discharge disposition: Home Top 3 nursing choice facilities: n/a VNA preference: No preference Outpatient PT preference: No Preference Discharge barriers and challenges: None at this time ?? Functional Status prior to admission: independent at baseline Functional Status current: assist of staff Living Situation: mobile house, one level, [address] [facility] [id number] Supports: spouse Josh DME: has FWW, shower bench, cantootie Home Health: VNA for PT This author reviewed a list of Home Health Agencies/DME vendors which serve their preferred geographic area. Affiliations were reviewed with them and they were educated about their right to choose where referrals are placed. Patient requests referral to [facility]. PHONE: [phone] FAX: [phone] Expected date of discharge: 03/31/2020 Assessment: Patient with no apparent or limited RNCM/SW needs at this time. No housing, transportation, insurance, resources concerns identified at this time. Supports in place to achieve a safe post-hospital transition. No identified barriers to accessing necessary care and/or follow-up after discharge. Plan: Patient to d/c to home via private car (spouse to drive) when medically ready. flower shop manager/Tissue Recovery Technician will continue to follow patient???s progress and remain available if situation changes for coordination of care, psychosocial support and/or discharge planning. Mirella Cano RN, [facility] Pager [phone] * Plan of Care - Melani Goncalves RN - 03/30/2020 5:39 AM EST OUTCOME EVALUATION NOTE: OUTCOME SUMMARY: Patient progressing towards d/c goals appropriately at this time. Patient's pain adequately controlled with scheduled pain medications and PRN, see MAR for medications given. Patient is alert and oriented x 4, VSS, + CSMT. Sleeping between care overnight. Silver dressing to LLE remains clean, dry and intact, utilizing cryo cuff. Ambulated to the bathroom, voiding adequately with no residual. Patient has intrathecal pain pump which she gives self bolus. Nursing communication stating ok for her to use. Will continue to monitor and help patient reach d/c goals. PLAN MOVING FORWARD: Pain control Mobilize PT / OT D/c planning INDIVIDUALIZED FALL PREVENTION: Patient is currently a high risk to Fall. Patient educated on bed/chair alarm, demonstrates proper use of call reid and verbalizes understanding of fall preventions implemented. Patient-specific fall risk factors per assessment: [current deficits]: Generalized weakness, Pain, Medications, Hospital Environment. Assistance [level of assistance required for transfers and ambulation]: Stand by assist with FWW Supervision [direct monitoring required during toileting and ADLs]: Minimal assist with ADL's Surveillance [continuous indirect monitoring]: Masimo, Purposeful Rounding, Nurse Knowledge Exchange Patient-specific fall prevention interventions for sensory deficits provided, if applicable: Yes glasses CPG GOAL OUTCOME EVALUATION: * Op Note - Toan Rocha MD - 03/29/2020 7:09 PM EST [facility] [place] Patient Name: Etelvina Cuadra : [id number] MR#: [id number] Case Date: 03/29/2020 Surgeon: Surgeon(s) and Role: * Mechelle Jacobson MD - Primary * Toan Rocha MD - Resident Preoperative diagnosis: Left knee osteoarthritis Postoperative diagnosis: Left knee osteoarthritis Procedure(s) (LRB): TOTAL KNEE ARTHROPLASTY (WRVU 20.72) (Left) MODIFIER,GMK SPHERE EFFICIENCY CS (FLEX) KNEE,MEDACTA (N/A) Findings: Degenerative changes in all three compartments of left knee. Anesthesia: General with adductor canal block, Estimated Blood Loss: 300 mL Specimens removed during surgery: None Drains: N/A. Surgical Closure: Primary Closure - skin incision is completely closed without any wires, francis, drains or other devices Disposition: awakened from anesthesia, extubated and taken to the recovery room in a stable condition, having suffered no apparent untoward event. Condition: doing well without problems (Please see the Surgical Encounter Summary for any Implant and Specimen details pertinent to this patient.) HPI/Surgical Indications: Etelvina Dangelo is a 59 year-old female who has been followed in the out-patient clinic with a history ofprogressively worsening left knee pain. After having failed conservative, non-surgical attempts at managing the pain and limitations of functional capabilities, it was felt that the only remaining option was surgical. A detailed conversation regarding the risks, benefits, and alternatives to total knee arthroplasty surgery was had with the patient. The risks discussed included but were not limited to: infection, bleeding (that may or may not require transfusion), injury to neurologic or vascular structures (that may or may not permanent), fracture, instability, leg-length inequality, premature loosening or failure/wear of the implants, blood clots, medical complications, anaesthesia-relatedcomplications (both intra and postoperative), and . Subsequent to this conversation, all of the patient???s questions were answered in great detail and informed consent was subsequently obtainedfor a left total knee arthroplasty. She received preoperative clearance and today she identified the left knee as the correct operative side. Implant Name Type Inv. Item Serial No. High Pressure Cleaner Lot No. LRB No. Used Action CEMENT BONE MEDIUM VISCOSITY 40GM SINGLE DOSE PMMA SMARTSET ([id number]) (AUTOREQ) - [id number] IMPLANTS CEMENT BONE MEDIUM VISCOSITY 40GM SINGLE DOSE PMMA SMARTSET ([id number]) (AutoReq) agencyQ [facility] [id number] Left 1 Implanted INSERT TIBIAL 10MM SZ 4 LEFT FIX POLY GMK ([id number]) (AUTOREQ) - [id number] IMPLANTS INSERT TIBIAL 10MM SZ 4 LEFT FIX POLY GMK ([id number]) (AutoReq) [employer] [facility] [place] [id number] Left 1 Implanted COMP PATELLAR KNEE 34MM SZ 2 KRISTINE RESURFACING UHMWPE ([id number]) (AUTOREQ) - [id number] IMPLANTS COMP PATELLAR KNEE 34MM SZ 2 KRISTINE RESURFACING UHMWPE ([id number]) (AutoReq) [employer] [place] - [place] [id number] Left 1 Implanted COMP FEMORAL KNEE SZ 4 LEFT KRISTINE SPHERE COCR ([id number]) (AUTOREQ) - [id number] IMPLANTS COMP FEMORAL KNEE SZ 4 LEFT KRISTINE SPHERE COCR ([id number]) (AutoReq) [employer] [place] - [employer] [id number] Left 1 Implanted BASEPLATE TIBIAL SZ T3-I4 LEFT KRISTINE COCR GMK ([id number]) (AUTOREQ) - [id number] IMPLANTS BASEPLATE TIBIAL SZ T3-I4 LEFT KRISTINE COCR GMK ([id number]) (AutoReq) [employer] [place] - [employer] [place] [id number] Left 1 Implanted Procedure Description: The patient was correctly identified in the same day holding area, where the proper operative site and consent were confirmed. AN adductor canal block was administered by the anesthesia team prior towheeling the patient back to the operating room. She was transferred to the operating table in the supine position, upon which point general anesthesia was administered. All bony prominences were ensured to be well padded. Preoperative antibiotics (3g IV Ancef) as well as a weight-based dose of tranexamic acid were given. A time-out was performed to confirm correct patient, surgery, and site according to the [facility] [place] Protocol. All members of the team agreed to proceed. A nonsterile tourniquet was placed high around the upper thigh. The lower extremity was then prepped with chlorhexidine, alcohol, and ChloraPrep and then draped in the usual sterile fashion. The knee was marked and an Ioban dressing was placed over the leg. The leg was exsanguinated and the tourniquet inflated to 250 mmHg where it remained for a total of 79 minutes. A midline incision was made. A medial full thickness skin flap was developed. Using a medial, quad splitting parapatellar arthrotomy, the knee joint was entered. Synovium over the lateral condyle were excised. A subperiosteal peal was carried around the medial tibial plateau. A portion of the infrapatellar fat pad was excised and a lateral release was performed to allow for adequate mobilization of the patella. The knee was then flexed. Attention was first directed to the femur. A step drill was used to enter the intramedullary canal.The intramedullary femoral guide was then placed and the distal femoral cut guide was pinned into the appropriate position, set for a 5 degree 9mm resection. The distal cut was made and the cutting guide was removed. The femoral sizing guide was then used to determine the appropriate femoral size. The distal pins were placed with care to ensure appropriate external rotation. The size 4 four-in-one cutting guide was placed and the anterior, posterior and champfer cuts were made. Attention was then directed to the tibia.The extramedullary tibial guide was placed and the tibial cutting guide pinned to the appropriate position to cut approximately 12 mm from the less effected (lateral) side . The tibial cut was made. The size T3-I4 transitional tibial trial baseplate was placed and the tibial drill and keel punch was used to prepare the tibia. We then attempted to place ourtrial implants, bur were unable to insert the 10 mm poly trial due to narrow flexion and extension gaps. We then replaced our tibial cut guide and resected an additional 4 cm. The tibial trial, 10 mmpoly trial, and femoral trial were then able to placed. The knee was brought through a range of motion and found to be stable to varus and valgus stress in full extension, 30 degrees of flexion, and 90 degrees of flexion. The patella thickness was measured to be 25 mm and the cutting guide was set to resect approximately 10 mm of bone. The patella was then cut and the size 34 mm patellar guide was used to drill the appropriate holes for the patellar button. The patella trial was placed and tracking was evaluated and seemed to be appropriate. The tibial and patellar trial components were removed. The lug holes were drilled through the femoral trial, which was then replaced with the milling guide. The milling guide was pinned in place and the center of the femur was milled. We then removed the milling guide and turned our attention to pre paration for cementation. The knee was copiously irrigated with normal saline using the pulse energy and conservation technician. Cement mixing was begun on the back table. The implants were then cemented into appropriate position and the definitive size 4, 10 mm polyethylene insert was placed. The knee was then brought into extension. After the cement had cured, the patella was reduced and the knee was brought through range of motion and found to be stable. The arthrotomy was closed with a stratafix suture and reinforced with 0 Vicryl. The wound was irrigated prior to final closure. The tourniquet was released and adequate hemostasis was achieved. The deep tissues were reapproximated with 0 vicryl suture in simple, inverted interrupted fashion. The subcutaneous tissues were reapproximated with 2-0 Vicryl and the skin was closed with 3-0 monocryl in a running subcuticular fashion. The wounds were cleansed and dried and dermabond and a Mepilex Ag dressing was applied. A Cryo/Cuff and Venodyne were applied. The patient was extubated and transferredback to the hospital bed. She was then taken to PACU in stable condition, having suffered no apparent untoward event. All sponge, needle, and instrument counts were correct at the end of the case. Dr. Jacobson was present and scrubbed for all critical portions of the procedure. Post-Operative Plan: Activity: Weight bearing as tolerated. Closure: Resorbable sutures. Dressing: Mepilex Ag x7 days. Drain: N/A. Anticoagulation: ASA 81 mg BID for 30 days. Antibiotics: Periop Ancef. Consults: PT/OT. Dispo:Pending PT/OT eval. Follow-up: 05/01/2020 Dr. Jacobson Infection Bundle used? N/A Associated attestation - Mechelle Jacobson MD - 03/31/2020 11:51 AM EST Attestation: Case Date: 03/29/2020 - 03/30/2020 I was present and I participated during the entire procedure (does not need to include opening and closing). MECHELLE JACOBSON MD 03/31/2020 * Brief Op Note - Toan Rocha MD - 03/29/2020 7:07 PM EST Brief Operative Note Patient Name: Etelvina Cuadra : [id number] MR#: [id number] Case Date: 03/29/2020 Surgeon: Surgeon(s) and Role: * Mechelle Jacobson MD - Primary * Toan Rocha MD - Resident Preoperative diagnosis: Left knee osteoarthritis Postoperative diagnosis: Left knee osteoarthritis Procedure(s) (LRB): TOTAL KNEE ARTHROPLASTY (WRVU 20.72) (Left) MODIFIER,GMK SPHERE EFFICIENCY CS (FLEX) KNEE,MEDACTA (N/A) Anesthesia: Anesthesia type not filed in the log. Findings: Degenerative changes in all three compartments of left knee. Complications: None apparent. Estimated Blood Loss: 300 mL Specimens removed during surgery: None Fluids: Intraprocedure Crystalloid Total Intake Lactated Ringers 1500.00 mL Total Intake 1500 mL Output Blood Loss 300 mL Total Output 300 mL Net Net Volume 1200 mL PRBCs: none (See Anesthesia Record/Report for Other Blood Products) Urine Output: (no urine output recorded) Drains: N/A. Disposition: awakened from anesthesia, extubated and taken to the recovery room in a stable condition, having suffered no apparent untoward event. Condition: doing well without problems (Please see the Surgical Encounter Summary for any Implant and Specimen details pertinent to this patient.) Infection Bundle used? N/A documented in this encounter Plan of Treatment Upcoming Encounters Date Type Department Care Team (Latest Contact Info) Description 04/06/2024 11:30 AM EST Hospital Encounter [place] [address] Cadence Eric MD [facility] [place] [address] 04/06/2024 11:30 AM EST - 04/06/2024 12:50 PM EST Surgery [place]patient [place] [address] Cadence Eric MD [facility] [place] [address] IMPLANT NEUROSTIMULATOR ELECTRODES, PERIPHERAL NERVE (WRVU 5.76) 04/14/2024 2:30 PM EST Office Visit [facility] at [facility] [place] [address] Cadence Eric MD [facility] [address] [place] [address] Scheduled Procedures Name Priority Associated Diagnoses Date/Ti [...] Procedure Name Priority Date/Time Associated Diagnosis Comments HEMOGRAM Routine 04/01/2020 2:53 AM EST DIFFERENTIAL, AUTOMATED Routine 04/01/2020 2:53 AM EST HC VENIPUNCTURE Routine 04/01/2020 2:53 AM EST BASIC METABOLIC PANEL Routine 04/01/2020 2:53 AM EST TRANSFUSE RED BLOOD CELLS Routine 03/31/2020 1:17 PM EST ABORH RECHECK STATUS Routine 03/31/2020 11:41 AM EST ABO/RH TYPING Routine 03/31/2020 11:41 AM EST ANTIBODY SCREEN Routine 03/31/2020 11:41 AM EST HC ANTIBODY DETECTION,CAPTURE-R Routine 03/31/2020 11:41 AM EST PREPARE RBC Routine 03/31/2020 11:30 AM EST HEMOGRAM Routine 03/31/2020 3:15 AM EST DIFFERENTIAL, AUTOMATED Routine 03/31/2020 3:15 AM EST HC VENIPUNCTURE Routine 03/31/2020 3:15 AM EST BASIC METABOLIC PANEL Routine 03/31/2020 3:15 AM EST LAB SCAN 03/31/2020 12:00 AM EST SCAN, PERIPHERAL BLOOD Routine 03/30/2020 11:47 AM EST HEMOGRAM Routine 03/30/2020 11:47 AM EST DIFFERENTIAL, AUTOMATED Routine 03/30/2020 11:47 AM EST HC CBC,PLT & AUTO DIFF Routine 03/30/2020 11:47 AM EST BASIC METABOLIC PANEL Routine 03/30/2020 11:47 AM EST HEMOGRAM Routine 03/30/2020 9:37 AM EST HC VENIPUNCTURE Routine 03/30/2020 9:37 AM EST BASIC METABOLIC PANEL Routine 03/30/2020 9:37 AM EST MODIFIER,GMK SPHERE EFFICIENCY CS (FLEX) KNEE,MEDACTA 03/29/2020 3:35 PM EST Primary osteoarthritis of left knee Morbid obesity Chronic pain of left knee Arthroplasty Knee Condyle & Plateau Medial & Lat Compartments ([id number]) 03/29/2020 3:35 PM EST Primary osteoarthritis of left knee Morbid obesity Chronic pain of left knee TOTAL KNEE ARTHROPLASTY Routine 03/29/2020 10:20 AM EST Primary osteoarthritis of left knee Morbid obesity Chronic pain of left knee IMPLANTABLE DEVICES SCAN 03/29/2020 12:00 AM EST documented in this encounter Results * (ABNORMAL) Differential, Automated (04/01/2020 2:53 AM EST) Neutrophil % 68.4 % [facility] Neutrophil Absolute 7.46(H) 1.70 - 6.10 x10(3)/mc L [facility] Lymph % 14.9 % [facility] Lymphocytes Abs 1.6 0.9 - 3.2 x10(3)/mc L [facility] Monocyte % 13.0 % [facility] Monocyte Abs 1.4(H) 0.3 - 0.9 x10(3)/mc L [facility] Eos % 2.7 % [facility] Eosinophils Abs 0.3 0.0 - 0.4 x10(3)/[facility] Basophil % 0.3 % [facility] Baso Absolute 0.0 0.0 - 0.1 x10(3)/[facility] Immature Gran % 0.70 % [facility] Comment: Immature granulocytes(IG's)percentage and absolute count will include metamyelocytes, myelocytes, and promyelocytes. Blood smears from CBCs yielding IG's will be scanned manually for concordance. If this scan disagrees with the automated IG or if promyelocytes are noted, a manual differential will be performed. Immature Gran Absolute 0.08(H) 0.00 - 0.04 x10(3)/[facility] LABORATORY Blood specimen (specimen) 04/01/2020 2:53 AM EST 04/01/2020 3:06 AM EST Narrative Resulting Agency Comment Spec In Lab Iván ALVARADO HEMATOLOGY ORDERABLE S [facility] [place] [address] * (ABNORMAL) Hemogram (04/01/2020 2:53 AM EST) White Blood Cell 10.9(H) 4.0 - 9.5 x10(3)/[facility] LABORATORY Red Blood Cell 2.73(L) 4.00 - 5.21 x10(6)/ L [facility] Hemoglobin 7.7(L) 11.7 - 15.5 gm/dL [facility] Hematocrit 24.5(L) 35.7 - 45.8 % [facility] Mean Cell Volume 89.7 82.6 - 94.4 fL [facility] Mean Cell Hemoglobin 28.2 27.1 - 32.0 pg [facility] Mean Cell Hemoglobin Concentration 31.4(L) 31.7 - 35.0 gm/dL [facility] Platelet 265 145 - 357 x10(3)/mc L [facility] RDW Standard Deviation 45.1 37.0 - 46.0 fL [facility] RDW coefficient of variation 13.8 11.5 - 14.1 % [facility] Mean Platelet Volume 10.5 7.6 - 12.9 fL [facility] NRBC% auto 0.0 % [facility] LABORATORY NRBC Absolute 0.000 0.000 - 0.000 x10(3)/mc L [facility] Blood specimen (specimen) 04/01/2020 2:53 AM EST 04/01/2020 3:06 AM EST Narrative Resulting Agency Comment Spec In Lab Iván ALVARADO HEMATOLOGY ORDERABLE S Performing Organization Address City/State/[facility] Co de Phone Number [facility] [place] [address] * (ABNORMAL) Basic Metabolic Panel (non-fasting) (04/01/2020 2:53 AM EST) Glucose 111 65 - 199 mg/dL [facility] Comment:Diabetes: >=200 mg/d L plus symptoms Blood Urea Nitrogen 14 8 - 18 mg/dL [facility] Creatinine 0.87 0.70 - 1.20 mg/dL [facility] Sodium 140 135 - 145 mmol/L [facility] Potassium 4.9 3.5 - 5.0 mmol/L [facility] Comment: Please note: ??Patients with WBC >100,000 may have falsely elevated Potassium levels. ??For accurate Potassium quantification in these patients send serum separator tube (gold top) for subsequent determinations. ??Contact the Clinical Chemistry Laboratory if there are any questions. Chloride 108(H) 98 - 107 mmol/L [facility] Carbon Dioxide 26 22 - 31 mmol/L [facility] Anion Gap 6 5 - 15 mmol/L [facility] Calcium 8.7 8.5 - 10.5 mg/dL [facility] Est Glomerular Filtration Rate 73 >=60 mL/min/1. 73 m?? [facility] Comment: The eGFR was calculated using the CKD-EPI equation. As with all creatinine based estimates of kidney function, eGFR values calculated with the CKD-EPI equation are not accurate in patients with acute kidney failure, extremes of body mass or the acutely ill. [email or web address] TULS[facility]kf eGFR 85 >=60 mL/min/1. 73 m?? [facility] Comment: The eGFR was calculated using the CKD-EPI equation. As with all creatinine based estimates of kidney function, eGFR values calculated with the CKD-EPI equation are not accurate in patients with acute kidney failure, extremes of body mass or the acutely ill. [email or web address]ULS[facility]kf Blood specimen (specimen) 04/01/2020 2:53 AM EST 04/01/2020 3:06 AM EST Narrative Resulting Agency Comment Spec In Lab Mechelle Jacobson MD CHEMISTRY ORDERABLES [facility] [place] [address] * Transfuse RBC (03/31/2020 4:31 PM EST) Mechelle Jacobson MD NURSING TREATMENT OR DERABLES - BLOOD ADMIN * Transfuse RBC (03/31/2020 4:31 PM EST) Mechelle Jacobson MD NURSING TREATMENT OR DERABLES - BLOOD ADMIN * ABORH Recheck Status (03/31/2020 11:41 AM EST) ABORH Type Recheck Completed [facility] Blood specimen (specimen) 03/31/2020 11:41 AM EST 03/31/2020 11:51 AM EST Narrative Resulting Agency Comment Spec In Lab Sharlene Tomlin MD BLOOD BANK LAB O RDERABLES [facility] [place] [address] * Antibody screen (03/31/2020 11:41 AM EST) Ab Screen Interp Negative [facility] Expires at [id number] on: 04/03/2020 [facility] Blood specimen (specimen) 03/31/2020 11:41 AM EST 03/31/2020 11:51 AM EST Narrative Resulting Agency Comment Spec In Lab Sharlene Tomlin MD BLOOD BANK LAB O RDERABLES [facility] [place] [address] * ABO/Rh Typing (03/31/2020 11:41 AM EST) [facility] ABORH Type A Pos [facility] LABORATORY Blood specimen (specimen) 03/31/2020 11:41 AM EST 03/31/2020 11:51 AM EST Narrative Resulting Agency Comment Spec In Lab Sharlene Tomlin MD BLOOD BANK LAB O RDERABLES Performing Organization Address City/[facility]/ZIP Co de Phone Number [facility] [place] [address] * Prepare RBC (03/31/2020 11:30 AM EST) Pathologist [facility] Dispensed? Yes [facility]OR[facility] Blood specimen (specimen) 03/31/2020 11:30 AM EST 03/31/2020 11:27 AM EST Narrative Resulting Agency Comment Spec In Lab Mechelle Jacobson MD BLOOD BANK PRODUCT O RDERABLES Performing Organization Address City/[facility]/ZIP Co de Phone Number [facility] [place] [address] * (ABNORMAL) Differential, Automated (03/31/2020 3:15 AM EST) Neutrophil % 64.2 % [facility] Neutrophil Absolute 5.51 1.70 - 6.10 x10(3)/mc L [facility] Lymph % 18.3 % [facility] LABORATORY Lymphocytes Abs 1.6 0.9 - 3.2 x10(3)/[facility] LABORATORY Monocyte % 15.5 % [facility] LABORATORY Monocyte Abs 1.3(H) 0.3 - 0.9 x10(3)/[facility] LABORATORY Eos % 0.9 % [facility]OR[facility]ORY Eosinophils Abs 0.1 0.0 - 0.4 x10(3)/[facility] LABORATORY Basophil % 0.5 % [facility]ORATORY Baso Absolute 0.0 0.0 - 0.1 x10(3)/[facility] LABORATORY Immature Gran % 0.60 % [facility] Comment: Immature granulocytes(IG's)percentage and absolute count will include metamyelocytes, myelocytes, and promyelocytes. Blood smears from CBCs yielding IG's will be scanned manually for concordance. If this scan disagrees with the automated IG or if promyelocytes are noted, a manual differential will be performed. Immature Gran Absolute 0.05(H) 0.00 - 0.04 x10(3)/[facility] LABORATORY Blood specimen (specimen) 03/31/2020 3:15 AM EST 03/31/2020 3:30 AM EST Narrative Resulting Agency Comment Spec In Lab Iván ALVARADO HEMATOLOGY ORDERABLE S [facility] [place] [address] * (ABNORMAL) Hemogram (03/31/2020 3:15 AM EST) White Blood Cell 8.6 4.0 - 9.5 x10(3)/[facility] LABORATORY Red Blood Cell 2.43(L) 4.00 - 5.21 x10(6)/[facility] LABORATORY Hemoglobin 7.0(L) 11.7 - 15.5 gm/dL [facility] Hematocrit 22.1(L) 35.7 - 45.8 % [facility] Mean Cell Volume 90.9 82.6 - 94.4 fL [facility] Mean Cell Hemoglobin 28.8 27.1 - 32.0 pg [facility] Mean Cell Hemoglobin Concentration 31.7 31.7 - 35.0 gm/dL [facility] Platelet 249 145 - 357 x10(3)/mc L [facility] RDW Standard Deviation 43.5 37.0 - 46.0 fL [facility] RDW coefficient of variation 13.1 11.5 - 14.1 % [facility] Mean Platelet Volume 10.2 7.6 - 12.9 fL [facility] NRBC% auto 0.2 % [facility] NRBC Absolute 0.020(H) 0.000 - 0.000 x10(3)/mc L [facility] Blood specimen (specimen) 03/31/2020 3:15 AM EST 03/31/2020 3:30 AM EST Narrative Resulting Agency Comment Spec In Lab Iván ALVARADO HEMATOLOGY ORDERABLE S [facility] [place] [address] * (ABNORMAL) Basic Metabolic Panel (non-fasting) (03/31/2020 3:15 AM EST) Glucose 128 65 - 199 mg/dL [facility] Comment:Diabetes: >=200 mg/d L plus symptoms Blood Urea Nitrogen 17 8 - 18 mg/dL [facility] Creatinine 1.05 0.70 - 1.20 mg/dL [facility] Sodium 138 135 - 145 mmol/L [facility] Potassium 4.2 3.5 - 5.0 mmol/L [facility] Comment: Please note: ??Patients with WBC >100,000 may have falsely elevated Potassium levels. ??For accurate Potassium quantification in these patients send serum separator tube (gold top) for subsequent determinations. ??Contact the Clinical Chemistry Laboratory if there are any questions. Chloride 107 98 - 107 mmol/L [facility] Carbon Dioxide 24 22 - 31 mmol/L [facility] Anion Gap 7 5 - 15 mmol/L [facility] Calcium 8.3(L) 8.5 - 10.5 mg/dL [facility] Est Glomerular Filtration Rate 58(L) >=60 mL/min/1. 73 m?? [facility] Comment: The eGFR was calculated using the CKD-EPI equation. As with all creatinine based estimates of kidney function, eGFR values calculated with the CKD-EPI equation are not accurate in patients with acute kidney failure, extremes of body mass or the acutely ill. [email or web address] eGFR 68 >=60 mL/min/1. 73 m?? [facility] Comment: The eGFR was calculated using the CKD-EPI equation. As with all creatinine based estimates of kidney function, eGFR values calculated with the CKD-EPI equation are not accurate in patients with acute kidney failure, extremes of body mass or the acutely ill. [email or web address]kf Blood specimen (specimen) 03/31/2020 3:15 AM EST 03/31/2020 3:30 AM EST Narrative Resulting Agency Comment Spec In Lab Mechelle Jacobson MD CHEMISTRY ORDERABLES Performing Organization Address City/State/[facility] Co de Phone Number [facility] [place] [address] * SCAN DOC: LAB (03/31/2020 12:00 AM EST) Narrative 03/31/2020 12:00 AM EST Ordered by an unspecified provider. Scanning Provider MEDIA MGR SCAN EXT O RDR/RSLT * Scan, Peripheral Blood (03/30/2020 11:47 AM EST) Plat estimate Increased [facility] RBC Morphology Normal [facility] Blood specimen (specimen) 03/30/2020 11:47 AM EST 03/30/2020 12:10 PM EST Narrative Resulting Agency Comment Spec In Lab Iván ALVARADO HEMATOLOGY ORDERABLE S [facility] [place] [address] * (ABNORMAL) Differential, Automated (03/30/2020 11:47 AM EST) Neutrophil % 72.6 % [facility] Neutrophil Absolute 10.07(H) 1.70 - 6.10 x10(3)/[facility] LABORATORY Lymph % 11.4 % [facility] Lymphocytes Abs 1.6 0.9 - 3.2 x10(3)/[facility] LABORATORY Monocyte % 15.2 % [facility] Monocyte Abs 2.1(H) 0.3 - 0.9 x10(3)/[facility] LABORATORY Eos % 0.1 % [facility] Eosinophils Abs 0.0 0.0 - 0.4 x10(3)/[facility] LABORATORY Basophil % 0.1 % [facility] Baso Absolute 0.0 0.0 - 0.1 x10(3)/[facility] LABORATORY Immature Gran % 0.60 % [facility] Comment: Immature granulocytes(IG's)percentage and absolute count will include metamyelocytes, myelocytes, and promyelocytes. Blood smears from CBCs yielding IG's will be scanned manually for concordance. If this scan disagrees with the automated IG or if promyelocytes are noted, a manual differential will be performed. Immature Gran Absolute 0.08(H) 0.00 - 0.04 x10(3)/[facility] LABORATORY Blood specimen (specimen) 03/30/2020 11:47 AM EST 03/30/2020 12:10 PM EST Narrative Resulting Agency Comment Spec In Lab Iván ALVARADO HEMATOLOGY ORDERABLE S [facility] [place] [address] * (ABNORMAL) Hemogram (03/30/2020 11:47 AM EST) White Blood Cell 13.8(H) 4.0 - 9.5 x10(3)/mc L [facility] Red Blood Cell 2.99(L) 4.00 - 5.21 x10(6)/mc L [facility] Hemoglobin 8.6(L) 11.7 - 15.5 gm/dL [facility] Hematocrit 26.5(L) 35.7 - 45.8 % [facility] Mean Cell Volume 88.6 82.6 - 94.4 fL [facility] Mean Cell Hemoglobin 28.8 27.1 - 32.0 pg [facility] Mean Cell Hemoglobin Concentration 32.5 31.7 - 35.0 gm/dL [facility] Platelet 380(H) 145 - 357 x10(3)/mc L [facility] RDW Standard Deviation 42.3 37.0 - 46.0 fL [facility] RDW coefficient of variation 13.0 11.5 - 14.1 % [facility] Mean Platelet Volume 10.3 7.6 - 12.9 fL [facility] NRBC% auto 0.0 % [facility] NRBC Absolute 0.000 0.000 - 0.000 x10(3)/mc L [facility] Blood specimen (specimen) 03/30/2020 11:47 AM EST 03/30/2020 12:10 PM EST Narrative Resulting Agency Comment Spec In Lab Iván ALVARADO HEMATOLOGY ORDERABLE S [facility] [place] [address] * (ABNORMAL) Basic Metabolic Panel (non-fasting) (03/30/2020 11:47 AM EST) Glucose 138 65 - 199 mg/dL [facility] Comment:Diabetes: >=200 mg/d L plus symptoms Blood Urea Nitrogen 14 8 - 18 mg/dL [facility] Creatinine 1.23(H) 0.70 - 1.20 mg/dL [facility] Sodium 135 135 - 145 mmol/L [facility] Potassium 4.1 3.5 - 5.0 mmol/L [facility] Comment: Please note: ??Patients with WBC >100,000 may have falsely elevated Potassium levels. ??For accurate Potassium quantification in these patients send serum separator tube (gold top) for subsequent determinations. ??Contact the Clinical Chemistry Laboratory if there are any questions. Chloride 101 98 - 107 mmol/L [facility] Carbon Dioxide 25 22 - 31 mmol/L [facility] Anion Gap 9 5 - 15 mmol/L [facility] Calcium 8.7 8.5 - 10.5 mg/dL [facility] Est Glomerular Filtration Rate 48(L) >=60 mL/min/1. 73 m?? [facility] Comment: The eGFR was calculated using the CKD-EPI equation. As with all creatinine based estimates of kidney function, eGFR values calculated with the CKD-EPI equation are not accurate in patients with acute kidney failure, extremes of body mass or the acutely ill. [email or web address]ULS[facility]kf eGFR 56(L) >=60 mL/min/1. 73 m?? [facility] Comment: The eGFR was calculated using the CKD-EPI equation. As with all creatinine based estimates of kidney function, eGFR values calculated with the CKD-EPI equation are not accurate in patients with acute kidney failure, extremes of body mass or the acutely ill. [email or web address] Blood specimen (specimen) 03/30/2020 11:47 AM EST 03/30/2020 12:10 PM EST Narrative Resulting Agency Comment Spec In Lab Mechelle Jacobson MD CHEMISTRY ORDERABLES [facility] [place] [address] * Hemogram (03/30/2020 9:37 AM EST) White Blood Cell Clotted 4.0 - 9.5 [facility] Comment: SPECIMEN CLOTTED. SPOKE TO LILY WILLINGHAM AT 11:17 ON 03/30/20 TO NOTIFY OF CANCELATION AND TO REQUEST REDRAW. Corrected from 14.2 x10(3)/mcL [HI] on 03/30/20 11:20:35 EST by Gosia Arellano Red Blood Cell Clotted 4.00 - 5.21 [facility] Comment: SPECIMEN CLOTTED. SPOKE TO LILY WILLINGHAM AT 11:17 ON 03/30/20 TO NOTIFY OF CANCELATION AND TO REQUEST REDRAW. Corrected from 2.94 x10(6)/mcL [LOW] on 03/30/20 11:20:35 EST by Gosia Arellano Hemoglobin Clotted 11.7 - 15.5 [facility] Comment: SPECIMEN CLOTTED. SPOKE TO LILY WILLINGHAM AT 11:17 ON 03/30/20 TO NOTIFY OF CANCELATION AND TO REQUEST REDRAW. Corrected from 8.6 gm/dL [LOW] on 03/30/20 11:20:35 EST by Gosia Arellano Hematocrit Clotted 35.7 - 45.8 [facility] Comment: SPECIMEN CLOTTED. SPOKE TO LILY WILLINGHAM AT 11:17 ON 03/30/20 TO NOTIFY OF CANCELATION AND TO REQUEST REDRAW. Corrected from 25.9 % [LOW] on 03/30/20 11:20:35 EST by Gosia Arellano Mean Cell Volume Clotted 82.6 - 94.4 [facility] Comment: SPECIMEN CLOTTED. SPOKE TO LILY WILLINGHAM AT 11:17 ON 03/30/20 TO NOTIFY OF CANCELATION AND TO REQUEST REDRAW. Corrected from 88.1 fL on 03/30/20 11:20:35 EST by Gosia Arellano Mean Cell Hemoglobin Clotted 27.1 - 32.0 [facility] Comment: SPECIMEN CLOTTED. SPOKE TO LILY WILLINGHAM AT 11:17 ON 03/30/20 TO NOTIFY OF CANCELATION AND TO REQUEST REDRAW. Corrected from 29.3 pg on 03/30/20 11:20:35 EST by Gosia Arellano Mean Cell Hemoglobin Concentration Clotted 31.7 - 35.0 [facility] Comment: SPECIMEN CLOTTED. SPOKE TO LILY SANDYSULEIMAN AT 11:17 ON 03/30/20 TO NOTIFY OF CANCELATION AND TO REQUEST REDRAW. Corrected from 33.2 gm/dL on 03/30/20 11:20:35 EST by Gosia Arellano Platelet Clotted 145 - 357 [facility] Comment: SPECIMEN CLOTTED. SPOKE TO LILY SANDYSULEIMAN AT 11:17 ON 03/30/20 TO NOTIFY OF CANCELATION AND TO REQUEST REDRAW. Corrected from 356 x10(3)/mcL on 03/30/20 11:20:35 EST by Gosia Arellano RDW Standard Deviation Clotted 37.0 - 46.0 [facility] Comment: SPECIMEN CLOTTED. SPOKE TO LILY SANDYSULEIMAN AT 11:17 ON 03/30/20 TO NOTIFY OF CANCELATION AND TO REQUEST REDRAW. Corrected from 41.6 fL on 03/30/20 11:20:35 EST by Gosia Arellano RDW coefficient of variation Clotted 11.5 - 14.1 [facility] Comment: SPECIMEN CLOTTED. SPOKE TO LILY WILLINGHAM AT 11:17 ON 03/30/20 TO NOTIFY OF CANCELATION AND TO REQUEST REDRAW. Corrected from 12.9 % on 03/30/20 11:20:35 EST by Gosia Arellano Mean Platelet Volume Clotted 7.6 - 12.9 [facility] Comment: SPECIMEN CLOTTED. SPOKE TO LILY WILLINGHAM AT 11:17 ON 03/30/20 TO NOTIFY OF CANCELATION AND TO REQUEST REDRAW. Corrected from 10.6 fL on 03/30/20 11:20:35 EST by Gosia Arellano NRBC% auto Clotted [facility] Comment: SPECIMEN CLOTTED. SPOKE TO LILY WILLINGHAM AT 11:17 ON 03/30/20 TO NOTIFY OF CANCELATION AND TO REQUEST REDRAW. Corrected from 0.0 % [NA] on 03/30/20 11:20:35 EST by Gosia Arellano NRBC Absolute Clotted 0.000 - 0.000 [facility] Comment: SPECIMEN CLOTTED. SPOKE TO LILY WILLINGHAM AT 11:17 ON 03/30/20 TO NOTIFY OF CANCELATION AND TO REQUEST REDRAW. Corrected from 0.000 x10(3)/mcL on 03/30/20 11:20:35 EST by Gosia Arellano Blood specimen (specimen) 03/30/2020 9:37 AM EST 03/30/2020 10:05 AM EST Narrative Resulting Agency Comment Spec In Lab Iván ALVARADO HEMATOLOGY ORDERABLE S [facility] [place] [address] * (ABNORMAL) Basic Metabolic Panel (non-fasting) (03/30/2020 9:37 AM EST) Glucose 197 65 - 199 mg/dL [facility] Comment:Diabetes: >=200 mg/d L plus symptoms Blood Urea Nitrogen 12 8 - 18 mg/dL [facility] Creatinine 1.11 0.70 - 1.20 mg/dL [facility] Sodium 138 135 - 145 mmol/L [facility] Potassium 4.4 3.5 - 5.0 mmol/L [facility] Comment: Please note: ??Patients with WBC >100,000 may have falsely elevated Potassium levels. ??For accurate Potassium quantification in these patients send serum separator tube (gold top) for subsequent determinations. ??Contact the Clinical Chemistry Laboratory if there are any questions. Chloride 104 98 - 107 mmol/L [facility] Carbon Dioxide 23 22 - 31 mmol/L [facility] Anion Gap 11 5 - 15 mmol/L [facility] Calcium 8.3(L) 8.5 - 10.5 mg/dL [facility] Est Glomerular Filtration Rate 55(L) >=60 mL/min/1. 73 m?? [facility] Comment: The eGFR was calculated using the CKD-EPI equation. As with all creatinine based estimates of kidney function, eGFR values calculated with the CKD-EPI equation are not accurate in patients with acute kidney failure, extremes of body mass or the acutely ill. [email or web address]/[facility]ULS[facility]kf eGFR 63 >=60 mL/min/1. 73 m?? [facility] Comment: The eGFR was calculated using the CKD-EPI equation. As with all creatinine based estimates of kidney function, eGFR values calculated with the CKD-EPI equation are not accurate in patients with acute kidney failure, extremes of body mass or the acutely ill. [email or web address]kf Blood specimen (specimen) 03/30/2020 9:37 AM EST 03/30/2020 10:05 AM EST Narrative Resulting Agency Comment Spec In Lab Mechelle Jacobson MD CHEMISTRY ORDERABLES [facility] [place] [address] * SCAN DOC: IMPLANTABLE DEVICES (03/29/2020 12:00 AM EST) Narrative 03/29/2020 12:00 AM EST Ordered by an unspecified provider. Scanning Provider MEDIA MGR SCAN EXT O RDR/RSLT documented in this encounter Visit Diagnoses Diagnosis s/p Left Total Knee Arthroplasty - 03/29/2020 Dr. Jacobson- Primary Primary localized osteoarthrosis, lower leg s/p Left Total Knee Arthroplasty - 03/29/2020 Dr. Jacobson Primary localized osteoarthrosis, lower leg Morbid obesity Chronic pain of left knee Pain in joint, lower leg Chronic pain of left knee Pain in joint, lower leg Morbid obesity Saphenous neuralgia, right documented in this encounter Admitting Diagnoses Diagnosis Primary osteoarthritis of left knee Primary localized osteoarthrosis, lower leg Morbid obesity Chronic pain of left knee Pain in joint, lower leg Osteoarthritis of left knee Osteoarthrosis, unspecified whether generalized or localized, lower leg documented in this encounter Administered Medications Inactive Administered Medications - up to 3 most recent administrations Medication Order MAR Action Action Date Dose Rate Site acetaminophen (Tylenol) tablet 1,000 mg 1,000 mg, Oral, EVERY 8 HOURS SCHEDULED, First dose on Gerda 03/29/20 at 2200, Until Discontinued, Maximum dose of acetaminophen is 4000 mg from all sources in 24 hours. When ordered for pain, acetaminophen should be given even when other ordered pain medications are indicated. , Routine Given 04/01/2020 2:16 PM EST 1,000 mg Given 04/01/2020 5:03 AM EST 1,000 mg Given 03/31/2020 9:05 PM EST 1,000 mg aspirin EC tablet 81 mg 81 mg, Oral, 2 TIMES DAILY, First dose on Thu03/30/20 at 0230, Until Discontinued, Routine Given 04/01/2020 8:0 7 AM EST 81 mg Given 03/31/2020 8:52 PM EST 81 mg Given 03/31/2020 9:08 AM EST 81 mg baclofen (Lioresal) tablet 10 mg 10 mg, Oral, 3 TIMES DAILY, First dose on Thu03/30/20 at 1030, Until Discontinued, Routine Given 04/01/2020 2:1 6 PM EST 10 mg Given 04/01/2020 8:07 AM EST 10 mg Given 03/31/2020 8:52 PM EST 10 mg ceFAZolin (ANCEF) 3g in dextrose 5% 100 mL 3 g, Intravenous, EVERY 8 HOURS, 3 doses, First dose on Gerda 03/29/20 at 1930, Last dose on Thu03/30/20 at 1130, Administer over 30 Minutes, Adjust to 4 hours from intraoperative dose. * Beta-lactam based antibiotics (eg. Ampicillin, Cefazolin, Aztreonam) should be administered within 4 hours of the preceding intraoperative dose. * Vancomycin, Fluoroquinolones, Clindamycin, Gentamicin, and Metronidazole should be administered within 8 hours of the preceding intraoperative dose., Recovery (Recovery-Hospital Unit), Indication for (Active or Suspected): Prophylaxis New Bag 03/30/2020 2:37 PM EST 3 g 200 mL/hr New Bag 03/30/2020 6:02 AM EST 3 g 200 mL/hr New Bag 03/29/2020 8:11 PM EST 3 g 200 mL/hr celecoxib (CeleBREX) capsule 200 mg 200 mg, Oral, 2 TIMES DAILY, First dose on Gerda 03/29/20 at 2115, Until Discontinued, Routine Given 04/01/2020 8:07 AM EST 200 mg Given 03/31/2020 8:52 PM EST 200 mg Given 03/31/2020 9:07 AM EST 200 mg citalopram (CeleXA) tablet 20 mg 20 mg, Oral, DAILY, First dose on Thu03/30/20 at 0900, Until Discontinued, Routine Given 04/01/2020 8:07 AM EST 20 mg Given 03/31/2020 9:08 AM EST 20 mg Given 03/30/2020 9:21 AM EST 20 mg fenofibrate micronized (Lofibra) capsule 200 mg 200 mg, Oral, NIGHTLY, First dose on 03/31/20 at 2100, Until Discontinued Given 03/31/2020 8:53 PM EST 200 mg fentaNYL (PF) 50 mcg/mL injection 50 mcg, Intravenous, EVERY 5 MIN PRN, Starting on Gerda 03/29/20 at 1359, Until Thu03/30/20 at 0105, Pain, or prior to injection of local anesthetic., Hold for respiratory rate less than 8 breaths per minute. (maximum dose 200 mcg), Day of Surgery (Day of Procedure), Routine Given 03/29/2020 3:12 PM EST 25 mcg gabapentin (Neurontin) capsule 300 mg 300 mg, Oral, ONCE, 1 dose, On Gerda 03/29/20 at 1415, Administer on arrival in Same Day Program, Day of Surgery (Day of Procedure), Routine Given 03/29/2020 2:05 PM EST 300 mg HYDROmorphone (DILAUDID) injection 0.2 mg 0.2 mg, Intravenous, ONCE, 1 dose, On Thu03/30/20 at 0745, Routine Given 03/30/2020 7:17 AM EST 0.2 mg HYDROmorphone (DILAUDID) injection 0.2-0.4 mg 0.2-0.4 mg, Intravenous, EVERY 5 MIN PRN, Starting on Gerda 03/29/20 at 1814, Until Thu03/30/20 at 0105, Pain, Give 0.2 mg every 5 minutes PRN for mild to moderate pain (1-5) Give 0.4 mg every 5 minutes PRN for moderate to severe pain (6-10). Hold for respiratory rate less than 10 per minute. Maximum dose 4 mg over one hour. If multiple pain medications are ordered, start with hydromorphone or morphine and use fentanyl for breakthrough pain., PACU Recovery, Routine Given 03/29/2020 8:49 PM EST 0.4 mg Given 03/29/2020 8:04 PM EST 0.4 mg Given 03/29/2020 7:39 PM EST 0.4 mg ketorolac (Toradol) (15 mg/mL) injection 15 mg 15 mg, Intravenous, EVERY 6 HOURS PRN, Starting on Gerda 03/29/20 at 1909, Until 03/31/20 at 1908, Pain, Routine Given 03/31/2020 9:27 AM EST 15 mg Given 03/30/2020 6:06 PM EST 15 mg Given 03/30/2020 10:56 AM EST 15 mg ketorolac (Toradol) (15 mg/mL) injection 15 mg 15 mg, Intravenous, EVERY 6 HOURS PRN, Starting on 03/31/20 at 1915, Until 04/01/20 at 1740, Pain, Routine Given 04/01/2020 9:54 AM EST 15 mg Given 04/01/2020 3:35 AM EST 15 mg Given 03/31/2020 7:25 PM EST 15 mg lactated ringers infusion 1,000 mL, at 100 mL/hr, Intravenous, CONTINUOUS, Starting on Gerda 03/29/20 at 1415, Until 03/30/20 at 0105, Day of Surgery (Day of Procedure) New Bag 03/29/2020 7:26 PM EST 1,000 mLs 100 mL/hr New Bag 03/29/2020 2:09 PM EST 1,000 mLs 100 mL/hr lidocaine (LIDODERM) 5 % patch 3 patch 3 patch, Transdermal, EVERY 24 HOURS, First dose on Thu03/30/20 at 0845, Until Discontinued, Apply patch(es) for 12 hours, and then remove for 12 hours, Routine Patch Applied 04/01/2020 8:07 AM EST 3 patches 16- Thigh Anterior (Right) Patch Applied 03/31/2020 9:08 AM EST 3 patches 19- Surgical Site Patch Applied 03/30/2020 9:23 AM EST 3 patches 19- Surgical Site lidocaine (LIDODERM) patch REMOVAL Transdermal, EVERY 24 HOURS, First dose on Thu03/30/20 at 2000, Until Discontinued, Remove lidocaine 5 %(700 mg/patch) patch midazolam (PF) (VERSED) injection 1 mg 1 mg, Intravenous, EVERY 5 MIN PRN, Starting on Gerda 03/29/20 at 1359, Until Thu03/30/20 at 0105, Sleep, or prior to injection of local anesthetic, Hold for delirium/agitation. (Maximum dose 5 mg)., Day of Surgery (Day of Procedure), Routine Given 03/29/2020 3:12 PM EST 2 mg naphazoline-pheniramine (NAPHCON-A) 0.025-0.3 % ophthalmic solution 2 drop 2 drop, Left Eye, 4 TIMES DAILY PRN, Starting on Thu03/30/20 at 0330, Until 04/01/20 at 1740, Irritation, Routine ondansetron (ZOFRAN) injection 4 mg 4 mg, Intravenous, EVERY 30 MIN PRN, Starting on Gerda 03/29/20 at 1814, Until Thu03/30/20 at 0105, Nausea, May repeat 4 mg once in 30 minutes. If multiple antiemetics ordered, use ondansetron first and if ineffective use prochlorperazine second and if ineffective use promethazine, PACU Recovery Given 03/29/2020 7:25 PM EST 4 mg oxyCODONE (Roxicodone) tablet 5 mg 5 mg, Oral, ONCE PRN, 1 dose, Starting on Thu03/30/20 at 1054, Until Thu04/01/20 at 1740, Pain, Routine oxyCODONE (Roxicodone) tablet 5-15 mg 5-15 mg, Oral, EVERY 4 HOURS PRN, Starting on Gerda 03/29/20 at 1909, Until Thu03/30/20 at 0848, Pain, Give 5 mg for mild pain (1-3), 10 mg for moderate pain (4-6) or 15 mg for severe pain (7-10) May give an additional 5 mg in 30 minutes ONCE if pain not relieved., Routine Given 03/30/2020 3:56 AM EST 15 mg Given 03/29/2020 11:12 PM EST 15 mg Given 03/29/2020 7:36 PM EST 15 mg oxyCODONE (Roxicodone) tablet 5-15 mg 5-15 mg, Oral, EVERY 3 HOURS PRN, Starting on Thu03/30/20 at 0900, Until Thu04/01/20 at 1740, Pain, Give 5 mg for mild pain (1-3), 10 mg for moderate pain (4-6) or 15 mg for severe pain (7-10) May give an additional 5 mg in 30 minutes ONCE if pain not relieved., Routine Given 04/01/2020 2:16 PM EST 15 mg Given 04/01/2020 11:14 AM EST 15 mg Given 04/01/2020 8:06 AM EST 15 mg pantoprazole EC (Protonix) tablet 20 mg 20 mg, Oral, DAILY, First dose on Thu03/30/20 at 0900, Until Discontinued, DO NOT CRUSH OR OPEN Given 04/01/2020 8:07 AM EST 20 mg Given 03/31/2020 9:08 AM EST 20 mg Given 03/30/2020 9:22 AM EST 20 mg polyethylene glycoL (Miralax) packet 17 g 17 g, Oral, 2 TIMES DAILY, First dose on Thu03/30/20 at 0230, Until Discontinued, Routine Given 04/01/2020 8:08 AM EST 17 g Given 03/31/2020 8:57 PM EST 17 g Given 03/31/2020 9:07 AM EST 17 g senna-docusate (Pericolace) 8.6-50 mg per tablet 2 tablet 2 tablet, Oral, 2 TIMES DAILY, First dose on Thu03/30/20 at 0230, Until Discontinued, Routine Given 04/01/2020 8:07 AM EST 2 tablets Given 03/31/2020 8:52 PM EST 2 tablets Given 03/31/2020 9:07 AM EST 2 tablets sodium chloride 0.9 % (flush) flush 5 mL 5 mL, Intravenous, 2 TIMES DAILY, First dose on Thu03/30/20 at 0230, Until Discontinued, Recovery (Recovery-Hospital Unit), Routine Given 04/01/2020 8:08 AM EST 5 mLs Given 03/31/2020 8:53 PM EST 5 mLs Given 03/31/2020 9:09 AM EST 5 mLs sodium chloride 0.9% 500 mL IV bolus Intravenous, ONCE, 1 dose, On Thu03/30/20 at 1500 New Bag 03/30/2020 3:18 PM EST 500 mL/hr sodium chloride 0.9% 500 mL IV bolus Intravenous, ONCE, 1 dose, On 03/31/20 at 0915 New Bag 03/31/2020 9:16 AM EST sodium chloride 0.9% infusion 1,000 mL, at 100 mL/hr, Intravenous, CONTINUOUS, Starting on Gerda 03/29/20 at 1930, Until 04/01/20 at 1740, Recovery (Recovery-Hospital Unit) New Bag 03/29/2020 7:31 PM EST 1,000 mLs 100 mL /hr tetracaine (PF) (PONTOCAINE) ophthalmic solution 1 drop 1 drop, Left Eye, ONCE, 1 dose, On Thu03/30/20 at 0030, STAT Given 03/30/2020 1:08 AM EST 1 drop documented in this encounter Active and Recently Administered Medications Times are shown in EST. Scheduled Medication Order 03/30/2020 03/31/2020 04/01/2020 acetaminophen (Tylenol) tablet 1,000 mg 1,000 mg, Oral, EVERY 8 HOURS SCHEDULED, First dose on Gerda 03/29/20 at 2200, Until Discontinued, Maximum dose of acetaminophen is 4000 mg from all sources in 24 hours. When ordered for pain, acetaminophen should be given even when other ordered pain medications are indicated. , Routine 0602 (Given - Provider: Melani Goncalves RN)1437 (Given - Provider: Lily Roldan)2114 (Given - Provider: Sergio Barber, SONNY) 0630 (Given - Provider: Ronald Aguirre RN)1316 (Given - Provider: Lily Roldan)2105 (Given - Provider: Cody Vivar, RN) 0503 (Given - Provider: Cody Vivar, SONNY)1416 (Given - Provider: Sue Alvarado, SONNY) aspirin EC tablet 81 mg 81 mg, Oral, 2 TIMES DAILY, First dose on Thu03/30/20 at 0230, Until Discontinued, Routine 0206 (Given - Provider: Melani Goncalves RN)0922 (Given - Provider: Dora Villafuerte LPN)2114 (Given - Provider: Sergio Barber RN) 09 (Given - Provider: Dora Villafuerte LPN)2051 (Given - Provider: Cody Vivar RN) 0807 (Given - Provider: Sue Alvarado, SONNY) baclofen (Lioresal) tablet 10 mg 10 mg, Oral, 3 TIMES DAILY, First dose on Thu03/30/20 at 1030, Until Discontinued, Routine 0953 (Given - Provider: Lily Roldan)1437 (Given - Provider: Lily Roldan)2114 (Given - Provider: Sergio Barber, SONNY) 0908 (Given - Provider: Dora Villafuerte LPN)152 (Given - Provider: Lily Roldan)2051 (Given - Provider: Cody Vivar, SONNY) 0807 (Given - Provider: Sue Alvarado, SONNY)1416 (Given - Provider: Sue Alvarado RN) ceFAZolin (ANCEF) 3g in dextrose 5% 100 mL (COMPLETED) 3 g, Intravenous, EVERY 8 HOURS, 3 doses, First dose on Gerda 03/29/20 at 1930, Last dose on Thu03/30/20 at 1130, Administer over 30 Minutes, Adjust to 4 hours from intraoperative dose. * Beta-lactam based antibiotics (eg. Ampicillin, Cefazolin, Aztreonam) should be administered within 4 hours of the preceding intraoperative dose. * Vancomycin, Fluoroquinolones, Clindamycin, Gentamicin, and Metronidazole should be administered within 8 hours of the preceding intraoperative dose., Recovery (Recovery-Hospital Unit), Indication for (Active or Suspected): Prophylaxis 0602 (New Bag - Provider: Melani Goncalves RN)0632 (Stopped - Provider: Melani Goncalves RN)1437 (New Bag - Provider: Lily Roldan)1507 (Stopped - Provider: Lily Roldan) celecoxib (CeleBREX) capsule 200 mg 200 mg, Oral, 2 TIMES DAILY, First dose on Gerda 03/29/20 at 211, Until Discontinued, Routine 0920 (Given - Provider: Dora Villafuerte LPN)2114 (Given - Provider: Sergio Barber, SONNY) 0907 (Given - Provider: Dora Villafuerte LPN)2051 (Given - Provider: Cody Vivar RN) 0807 (Given - Provider: Sue Alvarado RN) citalopram (CeleXA) tablet 20 mg 20 mg, Oral, DAILY, First dose on Thu03/30/20 at 0900, Until Discontinued, Routine 920 (Given - Provider: Dora Villafuerte LPN) 907 (Given - Provider: Dora Villafuerte LPN) 806 (Given - Provider: Sue Alvarado, SONNY) fenofibrate micronized (Lofibra) capsule 200 mg 200 mg, Oral, NIGHTLY, First dose on Thu03/31/20 at 2100, Until Discontinued 2052 (Given - Provider: Cody Vivar, RN) HYDROmorphone (DILAUDID) injection 0.2 mg (COMPLETED) 0.2 mg, Intravenous, ONCE, 1 dose, On Thu03/30/20 at 0745, Routine 07 (Given - Provider: Lily Roldan) levothyroxine (Synthroid) tablet 100 mcg 100 mcg, Oral, EVERY MORNING, First dose on Thu03/30/20 at 0600, Until Discontinued, Routine 0600 (Not Given - Provider: Melani Goncalves RN - Reason: Patient/family refused - Comment: cannot take generic, will take at home if d/c today) 0600 (Not Given - Provider: Sergio Barber RN - Reason: Patient/family refused - Comment: Patient states will only take thier generic brand. Pharmacy can not verify at this time.) 0511 (Not Given - Provider: Cody Vivar, SONNY - Reason: Patient/family refused) lidocaine (LIDODERM) 5 % patch 3 patch(Linked Group 1) 3 patch, Transdermal, EVERY 24 HOURS, First dose on Thu03/30/20 at 0845, Until Discontinued, Apply patch(es) for 12 hours, and then remove for 12 hours, Routine 922 (Patch Applied - Provider: Dora Villafuerte LPN) 907 (Patch Applied - Provider: Dora Villafuerte LPN) 806 (Patch Applied - Provider: Sue Alvarado RN) lidocaine (LIDODERM) patch REMOVAL(Linked Group 1) Transdermal, EVERY 24 HOURS, First dose on Thu03/30/20 at 2000, Until Discontinued, Remove lidocaine 5 %(700 mg/patch) patch 1999 (Patch Removed - Provider: Sergio Barber RN) 1999 (Patch Removed - Provider: Cody Vivar RN) pantoprazole EC (Protonix) tablet 20 mg 20 mg, Oral, DAILY, First dose on Thu03/30/20 at 0900, Until Discontinued, DO NOT CRUSH OR OPEN 921 (Given - Provider: Dora Villafuerte LPN) 09 (Given - Provider: Dora Villafuerte LPN) 08 (Given - Provider: Sue Alvarado, SONNY) polyethylene glycoL (Miralax) packet 17 g 17 g, Oral, 2 TIMES DAILY, First dose on Thu03/30/20 at 0230, Until Discontinued, Routine 0230 (Not Given - Provider: Melani Goncalves RN - Reason: Patient/family refused)922 (Given - Provider: Dora Villafuerte LPN)2099 (Not Given - Provider: Sergio Barber RN - Reason: Patient/family refused) 906 (Given - Provider: Doar Villafuerte LPN)2056 (Given - Provider: Cody Vivar RN) 08 (Given - Provider: Sue Alvarado RN) senna-docusate (Pericolace) 8.6-50 mg per tablet 2 tablet 2 tablet, Oral, 2 TIMES DAILY, First dose on Thu03/30/20 at 0230, Until Discontinued, Routine 0230 (Not Given - Provider: Melani Goncalves RN - Reason: Patient/family refused)919 (Given - Provider: Dora Villafuerte LPN)2099 (Not Given - Provider: Sergio Barber, SONNY - Reason: Patient/family refused) 906 (Given - Provider: Dora Villafuerte LPN)2051 (Given - Provider: Cody Vivar, SONNY) 08 (Given - Provider: Sue Alvarado RN) sodium chloride 0.9 % (flush) flush 5 mL 5 mL, Intravenous, 2 TIMES DAILY, First dose on Thu03/30/20 at 0230, Until Discontinued, Recovery (Recovery-Hospital Unit), Routine 0230 (Not Given - Provider: Melani Goncalves RN - Reason: See comment - Comment: infusing)922 (Given - Provider: Dora Villafuerte LPN)2116 (Given - Provider: Sergio Barber, SONNY) 09 (Given - Provider: Dora Villafuerte LPN)3 (Given - Provider: Cody Vivar, RN) 0808 (Given - Provider: Sue Alvarado, RN) sodium chloride 0.9% 500 mL IV bolus (COMPLETED) Intravenous, ONCE, 1 dose, On Thu03/30/20 at 1500 1518 (New Bag - Provider: Lily Roldan) sodium chloride 0.9% 500 mL IV bolus (COMPLETED) Intravenous, ONCE, 1 dose, On 03/31/20 at 0915 0916 (New Bag - Provider: Dora Villafuerte LPN)0936 (Stopped - Provider: Lily Roldan) tetracaine (PF) (PONTOCAINE) ophthalmic solution 1 drop (COMPLETED) 1 drop, Left Eye, ONCE, 1 dose, On Thu03/30/20 at 0030, STAT 0108 (Given - Provider: Melani Goncalves, RN) Continuous Medication Order 03/30/2020 03/31/2020 04/01/2020 sodium chloride 0.9% infusion 1,000 mL, at 100 mL/hr, Intravenous, CONTINUOUS, Starting on Gerda 03/29/20 at 1930, Until 04/01/20 at 1740, Recovery (Recovery-Hospital Unit) 0300 (Stopped - Provider: Melani Goncalves, RN) PRN Medication Order 03/30/2020 03/31/2020 04/01/2020 albuteroL (PROVENTIL) nebulizer solution 2.5 mg 2.5 mg, Nebulization, EVERY 4 HOURS PRN, Starting on Thu03/30/20 at 0130, Until 04/01/20 at 1740, Wheezing, Shortness of Breath, Routine bisacodyL (Dulcolax) suppository 10 mg 10 mg, Rectal, DAILY PRN, Starting on 03/30/20 at 0130, Until 04/01/20 at 1740, Constipation, Administer if needed per patient's routine or if no bowel movement within 48 hours to achieve: (1) One bowel movement every 48 hours, AND (2) without straining. If multiple PRN bowel medications ordered, start with lactulose, then oral bisacodyl, then bisacodyl suppository. Multiple medications may be given concomitantly for constipation., Routine bisacodyl EC (Dulcolax) tablet 10 mg 10 mg, Oral, 2 TIMES DAILY PRN, Starting on 03/30/20 at 0130, Until 04/01/20 at 1740, Constipation, DO NOT CRUSH OR OPEN Administer if needed per patient's routine or if no bowel movement within 48 hours to achieve: (1) One bowel movement every 48 hours, AND (2) without straining. If multiple PRN bowel medications ordered, start with lactulose, then oral bisacodyl, then bisacodyl suppository. Multiple medications may be given concomitantly for constipation., Routine 1737 (Not Given - Provider: Lily Roldan - Reason: Patient/family refused)1738 (Not Given - Provider: Lily Roldan - Reason: Patient/family refused) ketorolac (Toradol) (15 mg/mL) injection 15 mg () 15 mg, Intravenous, EVERY 6 HOURS PRN, Starting on Gerda 03/29/20 at 1909, Until 03/31/20 at 1908, Pain, Routine 0200 (Given - Provider: Melani Goncalves RN)1056 (Given - Provider: Lily Roldan)1806 (Given - Provider: Lily Roldan) 0927 (Given - Provider: Dora Villafuerte LPN) ketorolac (Toradol) (15 mg/mL) injection 15 mg 15 mg, Intravenous, EVERY 6 HOURS PRN, Starting on 03/31/20 at 1915, Until 04/01/20 at 1740, Pain, Routine 1925 (Given - Provider: Lily Roldan) 0335 (Given - Provider: Cody Vivar RN)0954 (Given - Provider: Sue Alvarado RN) lidocaine (XYLOCAINE) 10 mg/mL (1 %) injection 3 mg 3 mg (0.3 mL), Subcutaneous, ONCE PRN, 1 dose, Starting on Thu03/30/20 at 0130, Until 04/01/20 at 1740, for discomfort with PIV insertion, Recovery (Recovery-Hospital Unit), Routine naphazoline-pheniramine (NAPHCON-A) 0.025-0.3 % ophthalmic solution 2 drop 2 drop, Left Eye, 4 TIMES DAILY PRN, Starting on Thu03/30/20 at 0330, Until 04/01/20 at 1740, Irritation, Routine oxyCODONE (Roxicodone) tablet 5 mg 5 mg, Oral, ONCE PRN, 1 dose, Starting on Thu03/30/20 at 1054, Until Thu04/01/20 at 1740, Pain, Routine oxyCODONE (Roxicodone) tablet 5-15 mg (CANCELED) 5-15 mg, Oral, EVERY 4 HOURS PRN, Starting on Gerda 03/29/20 at 1909, Until Thu03/30/20 at 0848, Pain, Give 5 mg for mild pain (1-3), 10 mg for moderate pain (4-6) or 15 mg for severe pain (7-10) May give an additional 5 mg in 30 minutes ONCE if pain not relieved., Routine 0356 (Given - Provider: Melani Goncalves RN) oxyCODONE (Roxicodone) tablet 5-15 mg 5-15 mg, Oral, EVERY 3 HOURS PRN, Starting on Thu03/30/20 at 0900, Until Thu04/01/20 at 1740, Pain, Give 5 mg for mild pain (1-3), 10 mg for moderate pain (4-6) or 15 mg for severe pain (7-10) May give an additional 5 mg in 30 minutes ONCE if pain not relieved., Routine 0921 (Given - Provider: Dora Villafuerte LPN)1224 (Given - Provider: Dora Villafuerte LPN)1542 (Given - Provider: Lily Roldan)1843 (Given - Provider: Lily Roldan)2347 (Given - Provider: Sergio Barber RN) 0315 (Given - Provider: Sergio Barber RN)0955 (Given - Provider: Lily Roldan)1316 (Given - Provider: Lily Roldan)1642 (Given - Provider: Lily Roldan)1959 (Given - Provider: Cody Vivar RN) 0042 (Given - Provider: Cody Vivar, SONNY)0349 (Given - Provider: Cody Vivar RN)0806 (Given - Provider: Sue Alvarado RN)1114 (Given - Provider: Sue Alvarado RN)1416 (Given - Provider: Sue Alvarado RN) sodium chloride 0.9 % (flush) flush 5-20 mL 5-20 mL, Intravenous, EVERY 1 MIN PRN, Starting on Thu03/30/20 at 0130, Until Thu04/01/20 at 1740, flush, Flush pertains to all indwelling lines. Flush per protocol found in the job aid using the link provided on this medication record., Recovery (Recovery-Hospital Unit), Routine Linked Groups Order Group 1: lidocaine (LIDODERM) 5 % patch 3 patchJump to med 3 patch, Transdermal, EVERY 24 HOURS, First dose on Thu03/30/20 at 0845, Until Discontinued, Apply patch(es) for 12 hours, and then remove for 12 hours, Routine And lidocaine (LIDODERM) patch REMOVALJump to med Transdermal, EVERY 24 HOURS, First dose on Thu03/30/20 at 2000, Until Discontinued, Remove lidocaine 5 %(700 mg/patch) patch documented in this encounter Care Teams Bed And Breakfast Cook Relationship Specialty Start Date End Date Bob Day MD [address] [place] [address] PCP - General Family Medicine 01/18/18 07/26/20 documented as of this encounter
--- OUTSIDE RECORDS SUMMARY | 2024-04-05 16:28 | XMS_ITS | Encounter Summary ---
Author Organization [facility] Address [facility] [place] [address] Care Team Providers Care Form Layer Name Role Phone Bob Day MD Primary Care Provider [phone] Encounter Details Date Type Department Care Team (Late st Contact Info) Description 05/09/2020 1:00 PM EST Tech [place] [phone] Faizan Collazo [place] Left leg swelling Social History Tobacco Use Types Packs/Day Years [...] AM EST Hospital Encounter [place] [phone] Cadence Eric MD [facility] [place] [address] 04/06/2024 11:30 AM EST - 04/06/2024 12:50 PM EST Surgery [place] [phone] Cadence Eric MD [facility] [place] [address] IMPLANT NEUROSTIMULATOR ELECTRODES, PERIPHERAL NERVE (WRVU 5.76) 04/14/2024 2:30 PM EST Office Visit [facility] [place] [phone] Cadence Eric MD [facility] [place] [address] Scheduled Procedures Name Priority Associated Diagnoses Date/Ti [...] Procedure Name Priority Date/Time Associated Diagnosis Comments DUPLEX FOR DVT, LEG, UNILAT Routine 05/09/2020 12:54 PM EST Left leg swelling documented in this encounter Results * Duplex for DVT, Leg, Unilat (05/09/2020 12:54 PM EST) VB Text Report Department: Vascular Surgery Lab Patient: [id number] (ETELVINA WILLOUGHBY) CPT: 38282 ICD10: M79.89 Referring Physician: TAINA SERRANO ?? [...] 05/09/2020 12:5 4 PM EST Taina Serrano [employer] documented in this encounter Visit Diagnoses Diagnosis Left leg swelling Saphenous neuralgia, right documented in this encounter Care Teams Form Layer Relationship Specialty Start Date End Date Bob Day MD [address] [place] [address] PCP - General Family Medicine 01/18/18 07/26/20 documented as of this encounter
--- OUTSIDE RECORDS SUMMARY | 2024-04-05 16:28 | XMS_ITS | Encounter Summary ---
Author Organization [facility] [place] [address] Care Team Providers Care Wire Wheeler Name Role Phone Bob Day MD Primary Care Provider [phone] [phone] Reason for Visit * Reason Onset Date Comments Medication Refill 04/18/2020 oxycodone Encounter Details Date Type Department Care Team (Late st Contact Info) Description 04/18/2020 Ref[place] [address] Fabienne Stoddard, RN s/p Left Total Knee Arthroplasty - [...] Notes * Telephone Encounter - Izzy Lazaro [facility] - 04/19/2020 9:26 AM EST Images from the original note were not included. Received call on refill line that Etelvina has still not received her Oxycodone 5 mg. PDMP indicates she has not received a prescription since 04/09/2020. However, after calling [facility] in [place], [place] - they confirmed that the script written on 04/03/[address] Burton was picked up on 04/09/2020. This was the prescription that [facility] originally told us could not be filled because they did not recognize the provider. Our office was notified of this on 04/03/2020 @ 1650 by the patient. On 04/04/2020 @ 0923 blog writer was made aware of this and confirmed that the prescription had not beenpicked up via PDMP query and inquiry to the pharmacy. At this time a new script was routed to Dr. Jacobson to be picked up at [facility] in [facility]. When this occurred, blog writer personally forwarded a new script to be signed by Dr. Jacobson and filled at [facility]. After receiving at least 4 phone calls to the refill line and additional calls tothe clinic by 1530 on 04/04 from the patient, blog writer cancelled the script pended for Dr. Jacobson. The script was forwarded @1538 to an [facility] (Henna Salvador PA-C) who was in clinic . Unfortunately, atthis point, it was also late in the day, and being the Thursday before , many providers left the clinic early. The script was not signed. Also on 04/04/2020, after 1700, an after hours call was placed by the patient. This was answered byDr. Alcantar and a new script for Oxycodone 5 mg take 1-2 q 4 hours #30 ( = 2.5 days minimum if taking 2tabs every 4 hours and 5 days maximum if taking 1 tab every 4 hours) was written and signed. This was sent to [facility]. On 04/08/2020, Dr. Jacobson signed the pended script from 04/04/2020 - Oxycodone 5 mg take 1-3 q 3 hours #42 = 2 days minimum if taking 3 tabs every 3 hours and 5.25 days maximum if taking 1 tab every 3 hours). This was sent to [facility]. At minimum, the patient would have been out of narcotic on 04/10/2020, at maximum, the patient would have been out of narcotic on 04/13/2020. However, on 04/09/2020, the patient picked up the prescription that [facility] could not fill from/written on 04/03/[address] Ivan Burton. At this time patient received Oxycodone 5 mg take 1-2 tablets every 3 hours as needed #54 = ~3.4 days minimum if taking 2 tablets every 3 hours and 6.75 days maximum if taking 1 tablet every 3 hours. After calculating the minimum and maximum doses based on script sig and a timeline of when patient received her medications since 04/04 (when patient claimed she was out of narcotic) the following applies: After receiving 3 scripts on 04/04, 04/08 and 04/09- at minimum, scripts would last ~ 8 days (04/04/2020 - ~04/12/2020). At maximum, scripts would last ~ 17 days (04/04/2020 - 04/21/2020). It is appropriate for a refill at this time. HOWEVER, in the future prescriptions for this patient should be MORE carefully monitored. New script pended for Dr. Jacobson. Oxycodone 5 mg take 1-2 tablets every 4 hours as needed for post-op pain greater than 6/10 #30. * Telephone Encounter - Lilia Ac RMA - 04/19/2020 9:01 AM EST [facility]. The pharmacist stated that they will not fill any narcotic scripts for Etelvina as they feel that she is rx hopping and recommend that all of her prescriptions be sent to [facility]. . * Telephone Encounter - Fabienne Stoddard RN - 04/18/2020 1:25 PM EST Medication Refill Request Surgery/Injury: s/p Left Total Knee Arthroplasty - 03/29/2020 Dr. Jacobson Learning Needs Assessment done within 12 months (no change identified): Yes Medication being requested:oxycodone 5 mg Last refill: 04/08 #42 Seen within 30 days (if no, than when): yes Follow Up: 05/09 Jessica Serrano How is this medication being used currently: oxycodone 5 mg 2 tabs every 3 hours Pain level: 10 with activity Bowel concerns: no Other pain medications used and how: Morphine intrathecal pump Baclofen three times daily Gabapentin 300 mg nightly Tylenol 1000 mg three times daily Naproxen 275 mg twice daily Icing and elevation Query: Must be completed today: 30 day MME 79.07 Risk assessment: 4 New Prescription written for: oxycodone 5 mg The patient knows how to contact orthopaedics if any further questions or concerns occur. documented in this encounter Plan of Treatment Upcoming Encounters Date Type Department Care Team (Latest Contact Info) Description 04/06/2024 11:30 AM EST Hospital Encounter [place] [address] Cadence Eric MD [facility] [address] 04/06/2024 11:30 AM EST - 04/06/2024 12:50 PM EST Surgery [place] [address] Cadence Eric MD [facility] [place] [address] IMPLANT NEUROSTIMULATOR ELECTRODES, PERIPHERAL NERVE (WRVU 5.76) 04/14/2024 2:30 PM EST Office Visit [place] [address] Cadence Eric MD [facility] [place] [address] Scheduled Procedures Name Priority Associated Diagnoses Date/Ti [...] right documented in this encounter Care Teams Wire Wheeler Relationship Specialty Start Date End Date Bob Day MD [address] [place] [address] PCP - General Family Medicine 01/18/18 07/26/20 documented as of this encounter
--- OUTSIDE RECORDS SUMMARY | 2024-04-05 16:28 | XMS_ITS | Encounter Summary ---
[place] [address] Care Team Providers Care Fish Farmer Name Role Phone Bob Day MD Primary Care Provider [phone] [phone] Reason for Visit * Reason Onset Date Comments Medication Problem 04/04/2020 Encounter Details Date Type Department Care Team ([facility] Contact Info) Description 04/04/2020 Telephone [place] [phone] Izzy Lazaro RMA Medication Problem Social History Tobacco Use Types Packs/Day [...] Encounter - Izzy Lazaro RMA - 04/04/2020 4:11 PM EST Patient has called and left voicemails at documented times on the refill line. Also, she has repeatedly called nursing line and has called secretarial line. She states that she is out of Oxycodone that we prescribed her. This commercial loan underwriter has forwarded the scripts to be signed by Dr. Jacobson around 0900. However, he had notyet signed them by 1530. At this point patient called into secretarial line. County Attorney cancelled scripts pending for Dr. Jacobson and forwarded them to Henna Salvador Pa-C who was in clinic. documented in this encounter Plan of Treatment Upcoming Encounters Date Type Department Care Team (Latest Contact Info) Description 04/06/2024 11:30 AM EST Hospital Encounter [place] [address] Cadence Eric MD [facility] [place] [address] 04/06/2024 11:30 AM EST - 04/06/2024 12:50 PM EST Surgery [place] [address] Cadence Eric MD [facility] [place] [address] IMPLANT NEUROSTIMULATOR ELECTRODES, PERIPHERAL NERVE (WRVU 5.76) 04/14/2024 2:30 PM EST Office Visit [place] [address] Cadence Eric MD [facility] [place] [address] Scheduled Procedures Name Priority Associated Diagnoses Date/Ti [...] on filedocumented in this encounter Care Teams Fish Farmer Relationship Specialty Start Date End Date Bob Day MD [address] [place] [address] PCP - General Family Medicine 01/18/18 07/26/20 documented as of this encounter
--- OUTSIDE RECORDS SUMMARY | 2024-04-05 16:28 | XMS_ITS | Encounter Summary ---
[place] [address] Care Team Providers Care Poultry Processing Supervisor Name Role Phone Bob Day MD Primary Care Provider [phone] [phone] Reason for Visit * Reason Onset Date Comments Medication Refill 04/23/2020 oxycodone Encounter Details Date Type Department Care Team (Late st Contact Info) Description 04/23/2020 [place] [address] Fabienne Stoddard RN s/p Left Total Knee Arthroplasty - [...] encounter Miscellaneous Notes * Telephone Encounter - Fabienne Stoddard RN - 04/23/2020 9:25 AM EST Images from the original note were not included. Medication Refill Request Surgery/Injury: s/p Left Total Knee Arthroplasty - 03/29/2020 Dr. Jacobson Learning Needs Assessment done within 12 months (no change identified): Yes Medication being requested:oxycodone 5 mg Last refill: 04/19 #30 Seen within 30 days (if no, than when): yes Follow Up: 05/09 Jessica Serrano APRN How is this medication being used currently: oxycodone 5 mg 1-2 tabs usually 6 daily Pain level: 10 before taking pain medications, down to 3 after medication Bowel concerns: no Other pain medications used and how: Tylenol 1000 mg every 8 hours Naproxen 275 mg twice daily, and omeprazole and probiotics Baclofen 10 mgthree times daily Aspirin 81 mg 2 tabs twice daily. Etelvina will decrease to 81 mg twice daily As prescribed. Gabapentin 300 mg nightly Intrathecal morphine Icing and elevating. Query: Must be completed today: Risk assessment: 4 The patient knows how to contact orthopaedics if any further questions or concerns occur. documented in this encounter Plan of Treatment Upcoming Encounters Date Type Department Care Team (Latest Contact Info) Description 04/06/2024 11:30 AM EST Hospital Encounter Outpatient [place] [address] Cadence Eric MD [facility] [place] [address] 04/06/2024 11:30 AM EST - 04/06/2024 12:50 PM EST Surgery Outpatient [place] [address] Cadence Eric MD [facility] [place] [address] IMPLANT NEUROSTIMULATOR ELECTRODES, PERIPHERAL NERVE (WRVU 5.76) 04/14/2024 2:30 PM EST Office Visit [place] [address] Cadence Eric MD [facility] [place] [address] Scheduled Procedures Name Priority Associated Diagnoses Date/Ti [...] right documented in this encounter Care Teams Poultry Processing Supervisor Relationship Specialty Start Date End Date Bob Day MD [address] [place] [address] PCP - General Family Medicine 01/18/18 07/26/20 documented as of this encounter
--- OUTSIDE RECORDS SUMMARY | 2024-04-05 16:28 | XMS_ITS | Encounter Summary ---
[place] [address] Care Team Providers Care Machine Splitter Name Role Phone Bob Day MD Primary Care Provider [phone] Reason for Visit * Reason Onset Date Comments Medication Refill 04/27/2020 Encounter Details Date Type Department Care Team ([facility] Contact Info) Description 04/27/2020 Telephone [place] [phone] Izzy Lazaro RMA Medication Refill Social History Tobacco Use Types [...] encounter Miscellaneous Notes * Telephone Encounter - Bob Day MD - 04/27/2020 11:59 AM EST Patient contacted by Logan. Pt. States she now needs to restart 10mg chronic pain Rx. * Telephone Encounter - Izzy Lazaro RMA - 04/27/2020 10:48 AM EST Images from the original note were not included. Etelvina called in to refill line requesting Oxycodone 5 mg. She has been receiving Oxycodone 5 mg from us for post-op pain and Oxycontin 10 mg from her PCP. [facility]ics was in agreement with PCP's office that we would manage 1 month of her post-operative pain care. Etelvina had L TKA surgery on 03/28/2020. At this time it would be appropriate to transfer pain management back to her PCP for continuity of prescribing. PDMP as of today 04/27/2020: documented in this encounter Plan of Treatment Upcoming Encounters Date Type Department Care Team (Latest Contact Info) Description 04/06/2024 11:30 AM EST Hospital Encounter Outpatient [place] [address] Cadence Eric MD [facility] [place] [address] 04/06/2024 11:30 AM EST - 04/06/2024 12:50 PM EST Surgery Outpatient [place] [address] Cadence Eric MD [facility] [place] [address] IMPLANT NEUROSTIMULATOR ELECTRODES, PERIPHERAL NERVE (WRVU 5.76) 04/14/2024 2:30 PM EST Office Visit [place] [address] Cadence Eric MD [facility] [place] [address] Scheduled Procedures Name Priority Associated Diagnoses Date/Ti [...] on filedocumented in this encounter Care Teams Machine Splitter Relationship Specialty Start Date End Date Bob Day MD [address] [place] [address] PCP - General Family Medicine 01/18/18 07/26/20 documented as of this encounter
--- OUTSIDE RECORDS SUMMARY | 2024-04-05 16:28 | XMS_ITS | Encounter Summary ---
[place] [address] Care Team Providers Care Lathe Machinist Name Role Phone Bob Day MD Primary Care Provider [phone] [phone] Reason for Visit * Reason Onset Date Comments Medication Refill 04/03/2020 Encounter Details Date Type Department Care Team (Late Contact Info) Description 04/03/2020 Refill [place] [address] Melanie Ngo RN s/p Left Total Knee Arthroplasty - [...] encounter Miscellaneous Notes * Addendum Note - Izzy Lazaor RMA - 04/04/2020 3:38 PM ESTAddended by: IZZY LAZARO on: 04/04/2020 03:38 PM Modules accepted: Orders * Telephone Encounter - Izzy Lazaro RMA - 04/04/2020 3:31 PM EST Stull Installer notified patient called in to the secretarial line. Still requesting prescriptions be filled. At this time Dr. Jacobson has not signed script. Scripts for oxycodone and gabapentin to be routedto GENIE to be signed. Patient would like scripts sent to [facility] in [facility] at this time. * Addendum Note - Izzy Lazaro RMA - 04/04/2020 9:32 AM ESTAddended by: IZZY LAZARO on: 04/04/2020 09:32 AM Modules accepted: Orders * Telephone Encounter - Melanie Ngo RN - 04/03/2020 3:20 PM EST 04/01/2020 04/01/2020 1 04/01/2020 OXYCODONE HCL 5 MG TABLET 45.0 10 [place] [facility] [id number] [facility] (5593) 0 T 33.75 MME Comm Ins [place] 03/30/2020 3 03/30/2020 OXYCODONE HCL 10 MG TABLET 84.0 28 [place] [id number] [facility] (9876) 0 Comm Ins [place] 03/08/2020 03/08/2020 2 12/05/2019 MORPHINE SULFATE POWDER 0.42 1 BE FIC [id number] [facility] (7486) 0 T 420.0 MME Private Pay [place] 03/02/2020 3 02/28/2020 OXYCODONE HCL 10 MG TABLET 84.0 28 [place] [id number] [facility] (9876) 0 [place] Ins [place] 02/02/2020 02/03/2020 5 02/02/2020 OXYCODONE HCL 10 MG TABLET 84.0 28 [place] [id number] [facility] (3448) 0 T 45.0 MME [place] Ins [place] 01/04/2020 01/06/2020 5 01/04/2020 OXYCODONE HCL 10 MG TABLET 84.0 28 [place] [id number] [facility] (3448) 0 T 45.0 MME [place] Ins [place] 12/08/2019 12/09/2019 5 12/08/2019 OXYCODONE HCL 10 MG TABLET 84.0 28 [place] [id number] [facility] (3448) 0 T 45.0 MME Comm Ins [place] 12/01/2019 12/01/2019 2 11/29/2019 MORPHINE SULFATE POWDER 0.42 1 RADHA HINDS [id number] [facility] (8820) 0 T 420.0 MME Private Pay [place] 11/09/2019 11/10/2019 6 10/28/2019 OXYCODONE HCL 10 MG TABLET 84.0 28 [place] [id number] [facility] (3448) 0 T 45.0 MME Comm Ins [place] 10/13/2019 10/14/2019 5 10/12/2019 OXYCODONE HCL 10 MG TABLET 84.0 28 [place] [id number] [facility] (3448) 0 T 45.0 MME Comm Ins [place] 09/16/2019 4 08/02/2019 OXYCODONE HCL 10 MG TABLET 84.0 28 [place] [id number] [facility] (3383) 0 Comm Ins [place] 08/19/2019 4 08/02/2019 OXYCODONE HCL 10 MG TABLET 84.0 28 [place] [id number] [facility] (3383) 0 Melanie Ngo RN [facility] Ortho Team * Telephone Encounter - Melanie Ngo RN - 04/03/2020 2:11 PM EST Medication Refill Request Surgery/Injury/Provider: /p Left Total Knee Arthroplasty - 03/29/2020 Dr. Jacobson Principal problem Medication being requested Oxycodone Last refill or Original Rx: 04/01/20 Query: Must be completed today: Seen within 30 days (if no, than when): Follow Up: 05/01/20 Dr. Jacobson How is this medication being used currently:Oxycodone Pain level: Can get up to a 10 Bowel concerns: none Other pain medications used and how: Patient has a Narcotic infusion pump. Patient has RX for Oxycodone 10mg tablet tid prn, Baclofen rx, naprosyn rx, tylenol rx Medication Taper Plan: Patient to try to decrease to Oxycodone 5mg tablet Sig: one to two tablets every 3 hours as needed for pain. Teaching done regarding: taking nonnarcotic pain medications, taking the least amount of opioid needed for the least amount of time for adequate pain management and tapering of opioids with verbalized understanding by the patient. New Prescription written for: Oxycodone 5mg tablet Si to 2 tablets every 3 hours as needed for acute pain dispense # 54 RX also for gabapentin 300mg capsule Sig: One capsule at hs for the next 30 days. Dispense #30 Requested Prescription to be sent electronically to [facility].Pharmacy Prescription prepped and pended for James STEINBERG MD to review. The patient knows how to contact orthopaedics if any further questions or concerns occur. Melanie Ngo RN [facility] Ortho Team documented in this encounter Plan of Treatment Upcoming Encounters Date Type Department Care Team (Latest Contact Info) Description 04/06/2024 11:30 AM EST Hospital Encounter [place]patient [place] [address] Cadence Eric MD [facility] [place] [address] 04/06/2024 11:30 AM EST - 04/06/2024 12:50 PM EST Surgery [place] [address] Cadence Eric MD [facility] [place] [address] IMPLANT NEUROSTIMULATOR ELECTRODES, PERIPHERAL NERVE (WRVU 5.76) 04/14/2024 2:30 PM EST Office Visit [facility] [place] [address] Cadence Eric MD [facility] [address] Scheduled Procedures Name Priority Associated Diagnoses Date/Ti [...] right documented in this encounter Care Teams Lathe Machinist Relationship Specialty Start Date End Date Bob Day MD [address] [place] [address] PCP - General Family Medicine 01/18/18 07/26/20 documented as of this encounter
--- OUTSIDE RECORDS SUMMARY | 2024-04-05 16:28 | XMS_ITS | Encounter Summary ---
Author Organization [facility] Address [place] [place] [address] Care Team Providers Care Central Office Operator Name Role Phone Bob Day MD Primary Care Provider [phone] [phone] Reason for Visit * Reason Onset Date Comments Medication Problem 04/27/2020 Encounter Details Date Type Department Care Team (Late st Contact Info) Description 04/27/2020 Refill Primary Care at [address] [address] Sharona Mallory s/p Left Total Knee Arthroplasty [...] encounter Miscellaneous Notes * Telephone Encounter - Kisha Brisa MALLORY Garcia - 04/27/2020 11:30 AM EST I spoke to Etelvina who said she called in for her regular monthly fill of her pain med from you but did get her last rx from what she says was this past Thursday a 5 day supply with 2 left to take today with her PT at her house. She needs the Oxycodone 10mg rx , [facility] regular rx[facility]. Caller: Etelvina Cuadra Relationship to Patient: self Best number to be reached: Rx Renewal: PCP: Bob Day MD Last encounter this office: Visit date not found Last relevant appointment: 02/16/2020 Next appt this provider: 06/20/2020 Last Prescription Fill Date: 03/27/2020 Number Dispensed and Refills: 84 w/no refs Medication and Dose: Oxycodone 10mg UDS: 10/14/2018 Contract: 09/29/2019 [place] searched: Opioid PDMP 04/03/2020 02/21/2020 06/24/2018 [place] PDMP Query Date 04/03/2020 02/21/2020 07/15/2018 [place] PDMP Query Date 04/03/2020 02/21/2020 07/15/2018 [place] PDMP Query Date 04/03/2020 02/21/2020 07/15/2018 Send to Pharmacy: [id number] [id number] Lab Results Component Value Date HGB 7.7 [...] INR 1.0 02/21/2020 * Telephone Encounter - Sharona Mallory - 04/27/2020 8:28 AM EST Patient phoned and is asking to speak to Dr Day or his nurse regarding a medication issue documented in this encounter Plan of Treatment Upcoming Encounters Date Type Department Care Team (Latest Contact Info) Description 04/06/2024 11:30 AM EST Hospital Encounter Outpatient [place] [address] Cadence Eric MD [facility] [address] 04/06/2024 11:30 AM EST - 04/06/2024 12:50 PM EST Surgery Outpatient [place] [address] Cadence Eric MD [facility] [place] [address] IMPLANT NEUROSTIMULATOR ELECTRODES, PERIPHERAL NERVE (WRVU 5.76) 04/14/2024 2:30 PM EST Office Visit [place] [address] Cadence Eric MD [facility] [place] [address] Scheduled Procedures Name Priority Associated Diagnoses Date/Ti [...] right documented in this encounter Care Teams Central Office Operator Relationship Specialty Start Date End Date Bob Day MD [address] [place] [address] PCP - General Family Medicine 01/18/18 07/26/20 documented as of this encounter
--- OUTSIDE RECORDS SUMMARY | 2024-04-05 16:28 | XMS_ITS | Encounter Summary ---
Author Organization [facility] Address [facility] [place] [address] Care Team Providers Care Rail Car Painter/Sandblaster Name Role Phone Bob Day MD Primary Care Provider [phone] Encounter Details Date Type Department Care Team (Late st Contact Info) Description 04/19/2020 Tele[place] [address] Harshad Benton MD [facility] [place] [address] Social History Tobacco Use Types Packs/Day Years [...] encounter Miscellaneous Notes * Telephone Encounter - Harshad Benton MD - 04/19/2020 10:14 PM EST Telephone Note I spoke to Ms. Cuadra this afternoon regarding her pain medication refill. Per Ms. Cuadra she has notyet been able to fill the prescription that was discussed with our providers yesterday - see telephone note and discussion from 04/18. I told Ms. Cuadra that I would have to verify with the pharmacy that her prescription had not gone through and that I would call her back. After PDMP query I attempted to call her back twice and was sent to [email or web address] both times. documented in this encounter Plan of Treatment Upcoming Encounters Date Type Department Care Team (Latest Contact Info) Description 04/06/2024 11:30 AM EST Hospital Encounter Outpatient [place] [address] Cadence Eric MD [facility] [place] [address] 04/06/2024 11:30 AM EST - 04/06/2024 12:50 PM EST Surgery Outpatient [place] [address] Cadence Eric MD [facility] [place] [address] IMPLANT NEUROSTIMULATOR ELECTRODES, PERIPHERAL NERVE (WRVU 5.76) 04/14/2024 2:30 PM EST Office Visit [place] [address] Cadence Eric MD [facility] [place] [address] Scheduled Procedures Name Priority Associated Diagnoses Date/Ti [...] on filedocumented in this encounter Care Teams Rail Car Painter/Sandblaster Relationship Specialty Start Date End Date Bob Day MD [address] [place] [address] PCP - General Family Medicine 01/18/18 07/26/20 documented as of this encounter
--- OUTSIDE RECORDS SUMMARY | 2024-04-05 16:29 | XMS_ITS | Encounter Summary ---
Author Organization [facility] Address [facility] [place] [address] Care Team Providers Care Artificial Plastic Eye Maker Name Role Phone Bob Day MD Primary Care Provider [phone] Reason for Visit * Auth/Cert Specialty Diagnoses / Procedures Referred By Contac t Referred To Contact Diagnoses Pump Procedures PRO ELECTRONIC PUMP ANALYSIS W REPROGRAMMING AND REFILL BY MD/INTERNET MARKETING ANALYST ELECTRONIC HERNANDEZ PROG., PUMP- DRUG INFUS; W/ REPROGRAM & REFILL REQ (WRVU 0.9) Referral ID Status Reason Start Date Expiration Date Visits Re quested Visits Authorized [id number] 1 1 Encounter Details Date Type Department Care Team (Late st Contact Info) Description 03/12/2020 1:45 PM EST Ancillary [place] [address] Karl Becker MD [facility] [place] [address] Pain Social History Tobacco Use Types Packs/Day [...] AM EST Hospital Encounter [place] [address] Cadence Eric MD [facility] [place] [address] 04/06/2024 11:30 AM EST - 04/06/2024 12:50 PM EST Surgery [place] [address] Cadence Eric MD [facility] [place] [address] IMPLANT NEUROSTIMULATOR ELECTRODES, PERIPHERAL NERVE (WRVU 5.76) 04/14/2024 2:30 PM EST Office Visit [facility] [place] [address] Cadence Eric MD [facility] [place] [address] Scheduled Procedures Name Priority Associated Diagnoses Date/Ti [...] LIBRARY STORAGE ONLY PAIN CLINIC ULTRASOUND Routine 03/12/2020 2:44 PM EST Pain documented in this encounter Results * Film Library- Storage Only Pain Clinic Ultrasound (03/12/2020 2:44 PM EST) Narrative [facility] - 03/12/2020 2:44 PM EST See PACS for result report. Karl Becker MD G FILM LIBRARY ORD ERABLES [place], [place] documented in this encounter Visit Diagnoses Diagnosis Pain Generalized pain Saphenous neuralgia, right documented in this encounter Care Teams Artificial Plastic Eye Maker Relationship Specialty Start Date End Date Bob Day MD [address] [place] [address] PCP - General Family Medicine 01/18/18 07/26/20 documented as of this encounter
--- OUTSIDE RECORDS SUMMARY | 2024-04-05 16:29 | XMS_ITS | Encounter Summary ---
Author Organization [facility] Address [facility] [place] [address] Care Team Providers Care Paint Line Supervisor Name Role Phone Bob Day MD Primary Care Provider [phone] Reason for Visit * Auth/Cert Specialty Diagnoses / Procedures Referred By Cindy t Referred To Contact Diagnoses left knee osteoarthritis Procedures PRO TOTAL KNEE ARTHROPLASTY TOTAL KNEE ARTHROPLASTY (WRVU 20.72) MODIFIER,GMK SPHERE EFFICIENCY CS (FLEX) KNEE,MEDACTA Referral ID Status Reason Start Date Expiration Date Visits Re quested Visits Authorized [id number] 1 1 Encounter Details Date Type Department Care Team (Late st Contact Info) Description 03/29/2020 2:54 PM EST - 03/29/2020 5:22 PM EST Surgery [place] [address] Mechelle Jacobson MD [facility] [place] [address] TOTAL KNEE ARTHROPLASTY (WRVU 19.6) Social History Tobacco Use Types Packs/Day Years [...] Sign Reading Time Taken Comments Blood Pressure 116/47 03/29/2020 3:25 PM EST Pulse 63 03/29/2020 3:25 PM EST Temperature 36.7 ??C (98.1 ??F) 03/29/2020 1:46 PM ES T Respiratory Rate 12 03/29/2020 3:25 PM EST Oxygen Saturation 98% 03/29/2020 3:25 PM EST Inhaled Oxygen Concentration - - Weight - - Height - - Body Mass Index - - documented in this encounter Discharge Summaries * James Burton MD - 04/01/2020 8:40 AM EST Images from the original note were not included. Discharge Summary Patient Name: Etelvina Cuadra Patient Age: 59 y.o. Language: Danish Race: White Ethnicity: Not nor Admit date: 03/29/2020 Discharge date and time: 04/01/2020 Attending Physician: Mechelle Jacobson MD Discharge Physician: Mechelle Jacobson MD Follow-up Recommendations for Providers: See discharge instructions for additional details. Future Appointments Date Time Provider Department Center 05/01/2020 10:15 AM [facility] DX ROOM 3 MH Xray [facility] Rad 05/01/2020 11:10 AM Mechelle Jacobson MD [facility] ORTH 3C [facility] 06/20/2020 1:30 PM Bob Day MD [facility] Inpatient Provider Contact Information: Mechelle Jacobson MD Orthopedics: [phone] After hours and weekends, call [facility] Automotive Glass Installer, , and have the Orthopedic resident paged. [...] passing flatus . The patient's Hgb 7.0 11, responded appropriately with 1 u pRBC 11, Hgb 7.7, asymptomatic 11 AM. The patient was found to have [...] 1 tablet Refills: 0 Narcan 4 mg/actuation [place] instill 1 spray in 1 NOSTRIL if [...] bowel movement. You can also take an uxiv-yic-ebhfeke medication, Miralax if needed to combat constipation. [...] as much as possible. Call your doctor ([phone]) if you develop: 1. Fever greater than 100.5 2. Severe nausea or vomiting 3. Increasing pain that is not controlled by pain medications 4. Increasing redness, swelling, or drainage from incisions 5. Change in sensation FOLLOW-UP APPOINTMENTS: 1. You will have follow-up appointments at [facility] as indicated below in Future Appointment and Orders. 2. You will need to have x-rays prior to your follow-up appointment. Please come to Radiology, desT, 1 hour BEFORE that appointment for those x-rays. Future Appointments Date Time Provider Department Center 05/01/2020 10:15 AM [facility] DX ROOM 3 Xray [facility] Rad 05/01/2020 11:10 AM Mechelle Jacobson MD [facility] ORTH 3C [facility] 06/20/2020 1:30 PM Bob Day MD [facility] If you have questions or concerns: Thursday through Thursday, 8 AM - 5 PM, please call Dr. Mechelle Jacobson MD's office at . If it is after 5 PM, the weekend, or holidays, please call and ask to speak with theOrthopedic resident on-call. General Instructions None Future Appointments and Orders Future Appointments and Orders Future Appointments Provider Department Dept Phone 05/01/2020 10:15 AM [facility] DX ROOM 3 XRay at [facility] Arrive at: Roll Scale Worker Area 3T [phone] Please go to Roll Scale Worker Area 3T (Hunt Location). 05/01/2020 11:10 AM Mechelle Jacobson MD Orthopaedics at [facility] Arrive at: Roll Scale Worker Area 3C [phone] 06/20/2020 1:30 PM Bob Day MD Primary Care at [facility] Arrive at: Main Entrance 2nd Floor Check In [phone] Future Orders Complete By Expires Referral to Home Health - at DISCHARGE [[id number] CPT(R)] As directed Process Instructions: Scheduling Instructions: Comments: DOCUMENTATION FOR VNA SERVICES (INCLUDING PATIENTS WITH MEDICARE COVERAGE BEING DISCHARGED HOME WITH VNA SERVICES AND/OR HOSPICE SERVICES) PATIENT'S LOCATION: Etelvina L Khalif Discharge to own home: [address] [place] [id number] Insole Cementer's Name: self/patient In discussion with the attending physician, it is certified that this patient is under their care and that they, or a nurse practitioner, clinical nurse specialist or physician's kindergarten teacher assistant who is working directly with them, [...] for home health services. HOME HEALTH AGENCY: [facility]. PHONE: [phone] FAX: [phone] Half-Way(SN) eval if indicated on admission visit Activity: [...] from this patient's PCP: Bob Day MD [address] [id number] All A agencies which cover patient's residence area have been reviewed, either verbally or in writing, and patient/family have chosen the indicated home health agency. Questions: Agency name and contact information: [facility] Patient location post discharge: home What services are requested: Physical Therapy Start date: Responsible MD post discharge contact info: Primary Care Provider: Bob Day MD [phone] Discharge References/Attachments None documented in this encounter [...] bowel movement. You can also take an tffd-kel-cvwqawq medication, Miralax if needed to combat constipation. [...] as much as possible. Call your doctor ([phone]) if you develop: 1. Fever greater than 100.5 2. Severe nausea or vomiting 3. Increasing pain that is not controlled by pain medications 4. Increasing redness, swelling, or drainage from incisions 5. Change in sensation FOLLOW-UP APPOINTMENTS: 1. You will have follow-up appointments at [facility] as indicated below in Future Appointment and Orders. 2. You will need to have x-rays prior to your follow-up appointment. Please come to Radiology, desk3T, 1 hour BEFORE that appointment for those x-rays. Future Appointments Date Time Provider Department Center 05/01/2020 10:15 AM [facility] DX ROOM 3 Xray [facility] Rad 05/01/2020 11:10 AM Mechelle Jacobson MD [facility] ORTH 3C [facility] 06/20/2020 1:30 PM Bob Day MD [facility] If you have questions or concerns: Thursday [...] (MORPHINE IN D5W) 1 mg/mL Prefilled Pump [place] Inject as directed. Has intrathecal pump with [...] Time Provider Department Center 05/01/2020 10:15 AM [facility] DX ROOM 3 MH Xray [facility] Rad 05/01/2020 11:10 AM Mechelle Jacobson MD [facility] ORTH 3C [facility] 06/20/2020 1:30 PM Bob Day MD [facility] * Lily Roldan - 03/31/2020 4:49 PM EST Problem: Patient Care Overview Goal: Plan of Care Review Outcome: Ongoing (Interventions Implemented as Appropriate) OUTCOME EVALUATION NOTE: ?? OUTCOME SUMMARY: Hypotensive, Hgb 7.0, MD Tomlin notified, per MD Tomlin refer to primary team, MD Tuckernotified, 1 unit RBC administered, see flowsheet. Denies SOB, chest pain and n/t. C/o -11/17 pain, see MAR for medications administered and [...] Time Provider Department Center 05/01/2020 10:15 AM [facility] DX ROOM 3 MH Xray [facility] Rad 05/01/2020 11:10 AM Mechelle Jacobson MD [facility] ORTH 3C [facility] 06/20/2020 1:30 PM Bob Day MD [facility] * Lily Roldan - 03/30/2020 1:21 PM [...] factors per assessment: [current deficits]: Generalized weakness, [id number] of OR, pain medications, hospitalization Assistance [level [...] hernia, with obstruction, without gangrene 06/24/2018 ??? 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 PRO COLONOSCOPY, DIAGNOSTIC 09/23/2011 COLONOSCOPY, DIAGNOSTIC performed by NIKKI MAYORGA at [facility] ENDOSCOPY ??? PRO ELECTRONIC PUMP ANALYSIS W REPROGRAMMING AND REFILL BY /NAHID N/A 03/30/2019 ELECTRONIC HERNANDEZ PROG., PUMP- DRUG INFUS; W/ REPROGRAM & REFILL REQ (WRVU 0.9) performed by Karl Becker MD at [facility] PAIN [facility] MSO ??? PRO ELECTRONIC PUMP ANALYSIS W REPROGRAMMING AND REFILL BY /NAHID N/A 12/05/2019 ELECTRONIC HERNANDEZ PROG., PUMP- DRUG INFUS; W/ REPROGRAM & REFILL REQ (WRVU 0.9) performed by Karl Becker MD at [facility] PAIN [facility] MSO ??? PRO ELECTRONIC PUMP ANALYSIS W REPROGRAMMING AND REFILL BY /NAHID N/A 03/12/2020 ELECTRONIC HERNANDEZ PROG., PUMP- DRUG INFUS; W/ REPROGRAM & REFILL REJohn DAWSON (WRVU 0.9) performed by Karl Becker MD at [facility] PAIN MGMT MSO ??? PRO IMP SPINAL CANAL CATH Midline 03/23/2019 IMPLANT, REV OR REP TUNNELED INTRATHACAL OR EPIDURAL CATHETER (WRVU 6.05) performed by Karl Becker MD at [facility] MAIN OR ??? PRO INSERT/ REPLACE INFUSN PUMP, PROGRAMMABLE Right 03/23/2019 IMPLANT OR REPLACE PROG. PUMP-DRUG INFUSION (WRVU 5.6) performed by Melani Darden MD at [facility] ADEEL ??? PRO LAP, CHOLECYSTECTOMY/GRAPH N/A 10/18/2016 LAPAROSCOPIC CHOLECYSTECTOMY WITH CHOLANGIOGRAM (WRVU 11.47) performed by Tasia Umaña MD at [facility] MAIN OR ??? PRO LAP, VENTRAL HERNIA REPAIR, INCARCERATED N/A 07/12/2018 LAPAROSCOPIC HERNIA, VENTRAL, INCARCERATED, W-WO MESH (WRVU 14.94) performed by Izzy Blanco MD at [facility] MAIN OR ??? PRO TOTAL KNEE ARTHROPLASTY Left 03/29/2020 TOTAL KNEE ARTHROPLASTY (WRVU 20.72) performed by Mechelle Jacobson MD at [facility] MAIN OR Active Non-Hospital Problems Diagnosis ??? [...] as follows. Pain: Number Location At rest 4/10 Left knee and Quadricep With activity 8/10 [...] 52(Eval, TESx1) Ana Sinclair , SPT Pager: [phone] Physical Therapy Inpatient Rehabilitation Department Patient status, treatment interventions, and goals discussed with student. I am in agreement with all details and associated flowsheet rows as documented and was present for all aspects of the patient treatment session. Radha Chilel PT, DPT Pager #[phone] * Radha Chilel PT - 03/30/2020 10:37 AM EST Physical [...] or concerns. Radha Chilel PT, DPT Pager: [phone] 03/30/20 Inpatient Rehabilitation Department * Toan Rocha [...] ??C (99.5 ??F)] Heart Rate: [62-93] Resp: [01-28] BP: (92-136)/(38-77) Intake/Output Summary (Last 24 hours) [...] Time Provider Department Center 05/01/2020 10:15 AM [facility] DX ROOM 3 MH Xray [facility] Rad 05/01/2020 11:10 AM Mechelle Jacobson MD [facility] ORTH 3C [facility] 06/20/2020 1:30 PM Bob Day MD [facility] * Melani Goncalves RN - 03/30/2020 12:45 [...] ??C (98.1 ??F)] Heart Rate: [62-89] Resp: [-] BP: (102-136)/(38-76) Intake/Output Summary (Last 24 hours) [...] Time Provider Department Center 05/01/2020 10:15 AM [facility] DX ROOM 3 MH Xray [facility] Rad 05/01/2020 11:10 AM Mechelle Jacobson MD [facility] ORTH 3C [facility] 06/20/2020 1:30 PM Bob Day MD [facility] * Charity Roy RN - 03/29/2020 6:58 [...] and sips of water. Awaiting room assignment. 0: Patient able to void 400ml plus some unmeasured (spilled) spontaneously in bedpan. 0030: Report called to RN on 3W. documented in this encounter H&P Notes * Toan Rocha MD - 03/29/2020 2:58 PM EST 24-Hour Pre-Operative H&P Update Etelvina Cuadra 1960 [id number] Patient seen in pre-op holding area today. [...] Notes * Plan of Care - Dhaval Serrano PTA - 04/01/2020 12:16 PM EST Physical Therapy [...] Sit to Supine: Modified Indep with leg hospital director ?? Transfers: Sit to Stand: Modified Indep [...] Evaluation Minutes, Physical Therapy: 53(DHIRAJ, GT, TEFx2 ([id number])) Dhaval Serrano, CLAY HOISTER Pager: [phone] Physical Therapy Inpatient Rehabilitation Department * Plan of Care - Cody Vivar RN - 04/01/2020 4:46 AM EST Problem: Patient Care Overview Goal: Plan of Care Review Outcome: Ongoing (Interventions Implemented as Appropriate) 03/31/20 2105 04/01/20 8801 Plan of Care Review Progress -- progress [...] EVALUATION: * Plan of Care - Dia Trevizo, CLAY HOISTER - 03/31/2020 11:54 AM EST Physical Therapy [...] Sit to Supine: Conditional Indep with leg hospital director ?? Transfers: Sit to Stand: Conditional Indep [...] at end of session. ? Assessment: Etelvina Cuadra was seen today for [...] 23(TE-F 2 Time in/out 11:02-11:25) DIA TREVIZO PTA Pager: [phone] Physical Therapy Inpatient Rehabilitation Department * Plan of Care - Karla Dowling, OT - 03/31/2020 11:00 AM ESTSummary: Anticiapte [...] hernia, with obstruction, without gangrene 06/24/2018 ??? 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 PRO COLONOSCOPY, DIAGNOSTIC 09/23/2011 COLONOSCOPY, DIAGNOSTIC performed by NIKKI MAYORGA at [facility] ENDOSCOPY ??? PRO ELECTRONIC PUMP ANALYSIS W REPROGRAMMING AND REFILL BY JOSE N/A 03/30/2019 ELECTRONIC HERNANDEZ PROG., PUMP- DRUG INFUS; W/ REPROGRAM & REFILL REQ (WRVU 0.9) performed by Karl Becker MD at [facility] PAIN MGMT MSO ??? PRO ELECTRONIC PUMP ANALYSIS W REPROGRAMMING AND REFILL BY JOSE N/Radha 12/05/2019 ELECTRONIC HERNANDEZ PROG., PUMP- DRUG INFUS; W/ REPROGRAM & REFILL REQ (WRVU 0.9) performed by Karl Becker MD at [facility] PAIN MGMT MSO ??? PRO ELECTRONIC PUMP ANALYSIS W REPROGRAMMING AND REFILL BY JOSE N/Radha 03/12/2020 ELECTRONIC HERNANDEZ PROG., PUMP- DRUG INFUS; W/ REPROGRAM & REFILL REQ (WRVU 0.9) performed by Karl Becker MD at [facility] PAIN MGMT MSO ??? PRO IMP SPINAL CANAL CATH Midline 03/23/2019 IMPLANT, REV OR REP TUNNELED INTRATHACAL OR EPIDURAL CATHETER (WRVU 6.05) performed by Karl Becker MD at [facility] MAIN OR ??? PRO INSERT/ REPLACE INFUSN PUMP, PROGRAMMABLE Right 03/23/2019 IMPLANT OR REPLACE PROG. PUMP-DRUG INFUSION (WRVU 5.6) performed by Melani Darden MD at [facility] ADEEL ??? PRO LAP, CHOLECYSTECTOMY/GRAPH N/A 10/18/2016 LAPAROSCOPIC CHOLECYSTECTOMY WITH CHOLANGIOGRAM (WRVU 11.47) performed by Tasia Umaña MD at [facility] MAIN OR ??? PRO LAP, VENTRAL HERNIA REPAIR, INCARCERATED N/A 07/12/2018 LAPAROSCOPIC HERNIA, VENTRAL, INCARCERATED, W-WO MESH (WRVU 14.94) performed by Izzy Blanco MD at [facility] MAIN OR ??? PRO TOTAL KNEE ARTHROPLASTY Left 03/29/2020 TOTAL KNEE ARTHROPLASTY (WRVU 20.72) performed by Mechelle Jacobson MD at [facility] MAIN OR Social History: Patient lives with [...] & Perception: ?? WNL/WFL ?? 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 Etelvina Cuadra presents with the following performance skill deficits and client factors: increased pain, decreased activity tolerance,deconditioning, compromised mobility status, dizziness and coping. These performance deficits have led to activity limitations and participation restrictions in the following areas of occupation: dressing, bathing, transfers/mobility, home management, leisure and community mobility. Patient presents 32.79% limited in ADL performance per the [facility]. Patient mostly limited today by dizziness [...] and measurable assessment of functional outcome. Pager: [phone] Karla Dowling OT 03/31/2020 Occupational Therapy Rehabilitation [...] OTR/L 4314 * Initial Assessments - Mirella Cano RN - 03/30/2020 7:40 AM EST Office [...] Detected Final Comment: Primary Insurance on file: [employer] OOS Secondary Insurance on file:@ Prescription Insurance: Yes Primary care provider on file: Bob Day MD [phone] Advance Directive on file and Code Status: [...] mobile house, one level, [address] [facility] [address] Supports: spouse Josh DME: has FWW, shower bench, cane Home Health: [facility] for PT This author reviewed a list of Home Health Agencies/DME vendors which serve their preferred geographic area. Affiliations were reviewed with them and they were educated about their right to choose where referrals are placed. Patient requests referral to [facility]. PHONE: [phone] FAX: [phone] Expected date of discharge: 03/31/2020 Assessment: Patient with no apparent or limited RNCM/SW needs at this time. No housing, transportation, insurance, resources concerns identified at this time. Supports in place to achieve a safe post-hospital transition. No identified barriers to accessing necessary care and/or follow-up after discharge. Plan: Patient to d/c to home via private car (spouse to drive) when medically ready. paperhanger assistant/Equipment Services Associate will continue to follow patient???s progress and remain available if situation changes for coordination of care, psychosocial support and/or discharge planning. Mirella Cano, SONNY, [facility] Pager [phone] * Plan of Care - Melani Goncalves [...] assist with ADL's Surveillance [continuous indirect monitoring]: [place], Purposeful Rounding, Nurse Knowledge Exchange Patient-specific fall prevention interventions for sensory deficits provided, if applicable: Yes glasses CPG GOAL OUTCOME EVALUATION: * Op Note - Toan Rocha MD - 03/29/2020 7:09 PM EST [facility] Operative Note Patient Name: Etelvina Cuadra : [id number] MR#: [id number] Case Date: 03/29/2020 Surgeon: Surgeon(s) and Role: [...] incision is completely closed without any wires, frnacis, drains or other devices Disposition: awakened from [...] Implant Name Type Inv. Item Serial No. Commercial Diver Lot No. LRB No. Used Action CEMENT BONE MEDIUM VISCOSITY 40GM SINGLE DOSE PMMA SMARTSET ([id number]) (AUTOREQ) - [id number] IMPLANTS CEMENT BONE MEDIUM VISCOSITY 40GM SINGLE DOSE PMMA SMARTSET ([id number]) (AutoReq) Intact Vascular [facility] [id number] Left 1 Implanted INSERT TIBIAL 10MM SZ 4 LEFT FIX POLY GMK ([id number]) (AUTOREQ) - [id number] IMPLANTS INSERT TIBIAL 10MM SZ 4 LEFT FIX POLY GMK ([id number]) (AutoReq) [employer] [place] - [place] [id number] Left 1 Implanted COMP PATELLAR KNEE 34MM SZ 2 KRSITINE RESURFACING UHMWPE ([id number]) (AUTOREQ) - [id number] IMPLANTS COMP PATELLAR KNEE 34MM SZ 2 KRISTINE RESURFACING UHMWPE ([id number]) (AutoReq) [employer] [place] - [employer] [place] [id number] Left 1 Implanted COMP FEMORAL KNEE SZ 4 LEFT KRISTINE SPHERE COCR ([id number]) (AUTOREQ) - [id number] IMPLANTS COMP FEMORAL KNEE SZ 4 LEFT KRISTINE SPHERE COCR ([id number]) (AutoReq) [employer] [place] - MEDACT[employer] [place] [id number] Left 1 Implanted BASEPLATE TIBIAL SZ T3-I4 LEFT KRISTINE COCR GMK ([id number]) (AUTOREQ) - [id number] IMPLANTS BASEPLATE TIBIAL SZ T3-I4 LEFT KRISTINE COCR GMK ([id number]) (AutoReq) [employer] [place] - [employer]ACT[employer] [place] [id number] Left 1 Implanted Procedure Description: The patient [...] patient, surgery, and site according to the [facility] [place] Protocol. All members of the team agreed [...] irrigated with normal saline using the pulse director of bands. Cement mixing was begun on the back [...] Operative Note Patient Name: Etelvina Cuadra : [id number] MR#: [id number] Case Date: 03/29/2020 Surgeon: Surgeon(s) and Role: [...] AM EST Hospital Encounter [place] [address] Cadence Eric MD [facility] [place] [address] 04/06/2024 11:30 AM EST - 04/06/2024 12:50 PM EST Surgery [place]patient [place] [address] Cadence Eric MD [facility] [place] [address] IMPLANT NEUROSTIMULATOR ELECTRODES, PERIPHERAL NERVE (WRVU 5.76) 04/14/2024 2:30 PM EST Office Visit [place] [address] Cadence Eric MD [facility] [place] [address] Scheduled Procedures Name Priority Associated Diagnoses Date/Ti [...] Condyle & Plateau Medial & Lat Compartments (87781) 03/29/2020 3:35 PM EST Primary osteoarthritis of left knee Morbid obesity Chronic pain of left knee TOTAL KNEE ARTHROPLASTY Routine 03/29/2020 10:20 AM EST Primary osteoarthritis of left knee Morbid obesity Chronic pain of left knee IMPLANTABLE DEVICES SCAN 03/29/2020 12:00 AM EST documented in this encounter Results * (ABNORMAL) Differential, Automated (04/01/2020 2:53 AM EST) Neutrophil % 68.4 % [facility] Neutrophil Absolute 7.46(H) 1.70 - 6.10 x10(3)/mc L [facility] Lymph % 14.9 % [facility] Lymphocytes Abs 1.6 0.9 - 3.2 x10(3)/mc L [facility] Monocyte % 13.0 % [facility] Monocyte Abs 1.4(H) 0.3 - 0.9 x10(3)/mc L [facility] Eos % 2.7 % [facility] Eosinophils Abs 0.3 0.0 - 0.4 x10(3)/mc L [facility] Basophil % 0.3 % [facility] Baso Absolute 0.0 0.0 - 0.1 x10(3)/mc L [facility] Immature Gran % 0.70 % [facility] Comment: Immature granulocytes(IG's)percentage and absolute count will include metamyelocytes, myelocytes, and promyelocytes. Blood smears from CBCs yielding IG's will be scanned manually for concordance. If this scan disagrees with the automated IG or if promyelocytes are noted, a manual differential will be performed. Immature Gran Absolute 0.08(H) 0.00 - 0.04 x10(3)/mc L [facility] Blood specimen (specimen) 04/01/2020 2:53 AM EST 04/01/2020 3:06 AM EST Narrative Resulting Agency Comment Spec In Lab Iván ALVARADO HEMATOLOGY ORDERABLE S [facility] [place] [address] * (ABNORMAL) Hemogram (04/01/2020 2:53 AM EST) White Blood Cell 10.9(H) 4.0 - 9.5 x10(3)/mc L [facility] Red Blood Cell 2.73(L) 4.00 - 5.21 x10(6)/mc L [facility] Hemoglobin 7.7(L) 11.7 - 15.5 gm/dL [facility] Hematocrit 24.5(L) 35.7 - 45.8 % [facility] Mean Cell Volume 89.7 82.6 - 94.4 fL [facility] Mean Cell Hemoglobin 28.2 27.1 - 32.0 pg [facility] Mean Cell Hemoglobin Concentration 31.4(L) 31.7 - 35.0 gm/dL [facility] Platelet 265 145 - 357 x10(3)/mc L [facility] RDW Standard Deviation 45.1 37.0 - 46.0 fL [facility] RDW coefficient of variation 13.8 11.5 - 14.1 % [facility] Mean Platelet Volume 10.5 7.6 - 12.9 fL [facility] NRBC% auto 0.0 % [facility] NRBC Absolute 0.000 0.000 - 0.000 x10(3)/mc L [facility] Blood specimen (specimen) 04/01/2020 2:53 AM EST 04/01/2020 3:06 AM EST Narrative Resulting Agency Comment Spec In Lab Iván ALVARADO HEMATOLOGY ORDERABLE S [facility] [place] [address] * (ABNORMAL) Basic Metabolic Panel (non-fasting) (04/01/2020 2:53 AM EST) Glucose 111 65 - 199 mg/dL [facility] Comment:Diabetes: >=200 mg/d L plus symptoms Blood Urea Nitrogen 14 8 - 18 mg/dL [facility] Creatinine 0.87 0.70 - 1.20 mg/dL [facility] Sodium 140 135 - 145 mmol/L [facility] Potassium 4.9 3.5 - 5.0 mmol/L [facility] Comment: Please note: ??Patients with WBC >100,000 may have falsely elevated Potassium levels. ??For accurate Potassium quantification in these patients send serum separator tube (gold top) for subsequent determinations. ??Contact the Clinical Chemistry Laboratory if there are any questions. Chloride 108(H) 98 - 107 mmol/L [facility] Carbon Dioxide 26 22 - 31 mmol/L [facility] Anion Gap 6 5 - 15 mmol/L [facility] Calcium 8.7 8.5 - 10.5 mg/dL [facility] Est Glomerular Filtration Rate 73 >=60 mL/min/1. 73 m?? [facility] Comment: The eGFR was calculated using the CKD-EPI equation. As with all creatinine based estimates of kidney function, eGFR values calculated with the CKD-EPI equation are not accurate in patients with acute kidney failure, extremes of body mass or the acutely ill. [email or web address] eGFR 85 >=60 mL/min/1. 73 m?? [facility] Comment: The eGFR was calculated using the CKD-EPI equation. As with all creatinine based estimates of kidney function, eGFR values calculated with the CKD-EPI equation are not accurate in patients with acute kidney failure, extremes of body mass or the acutely ill. [email or web address] Blood specimen (specimen) 04/01/2020 2:53 AM EST 04/01/2020 3:06 AM EST Narrative Resulting Agency Comment Spec In Lab Mechelle Jacobson MD CHEMISTRY ORDERABLES Performing Organization Address [facility] Co de Phone Number [facility] [place] [address] * Transfuse RBC (03/31/2020 4:31 PM EST) Mechelle Jacobson MD NURSING TREATMENT OR DERABLES - BLOOD ADMIN * Transfuse RBC (03/31/2020 4:31 PM EST) Mechelle Jacobson MD NURSING TREATMENT OR DERABLES - BLOOD ADMIN * ABORH Recheck Status (03/31/2020 11:41 AM EST) ABORH Type Recheck Completed [facility] Blood specimen (specimen) 03/31/2020 11:41 AM EST 03/31/2020 11:51 AM EST Narrative Resulting Agency Comment Spec In Lab Sharlene Tomlin MD BLOOD BANK LAB O RDERABLES Performing Organization Address City/[facility]/ZIP Co de Phone Number [facility] [place] [address] * Antibody screen (03/31/2020 11:41 AM EST) Pathologist [facility] Ab Screen Interp Negative [facility] Expires at [id number] on: 04/03/2020 [facility] Blood specimen (specimen) 03/31/2020 11:41 AM EST 03/31/2020 11:51 AM EST Narrative Resulting Agency Comment Spec In Lab Sharlene Tomlin MD BLOOD BANK LAB O RDERABLES Performing Organization Address [facility] Co de Phone Number [facility] [place] [address] * ABO/Rh Typing (03/31/2020 11:41 AM EST) ABORH Type A Pos [facility] Blood specimen (specimen) 03/31/2020 11:41 AM EST 03/31/2020 11:51 AM EST Narrative Resulting Agency Comment Spec In Lab Sharlene Tomlin MD BLOOD BANK LAB O RDERABLES Performing Organization Address [facility] Co de Phone Number [facility] [place] [address] * Prepare RBC (03/31/2020 11:30 AM EST) Dispensed? Yes [facility] Blood specimen (specimen) 03/31/2020 11:30 AM EST 03/31/2020 11:27 AM EST Narrative Resulting Agency Comment Spec In Lab Mechelle Jacobson MD BLOOD BANK PRODUCT O RDERABLES Performing Organization Address [facility] de Phone Number [facility] [place] [address] * (ABNORMAL) Differential, Automated (03/31/2020 3:15 AM EST) Neutrophil % 64.2 % [facility] Neutrophil Absolute 5.51 1.70 - 6.10 x10(3)/mc L [facility] Lymph % 18.3 % [facility] Lymphocytes Abs 1.6 0.9 - 3.2 x10(3)/mc L [facility] Monocyte % 15.5 % [facility] Monocyte Abs 1.3(H) 0.3 - 0.9 x10(3)/mc L [facility] Eos % 0.9 % [facility] Eosinophils Abs 0.1 0.0 - 0.4 x10(3)/[facility] Basophil % 0.5 % [facility] Baso Absolute 0.0 0.0 - 0.1 x10(3)/[facility] Immature Gran % 0.60 % [facility] Comment: Immature granulocytes(IG's)percentage and absolute count will include metamyelocytes, myelocytes, and promyelocytes. Blood smears from CBCs yielding IG's will be scanned manually for concordance. If this scan disagrees with the automated IG or if promyelocytes are noted, a manual differential will be performed. Immature Gran Absolute 0.05(H) 0.00 - 0.04 x10(3)/[facility] Blood specimen (specimen) 03/31/2020 3:15 AM EST 03/31/2020 3:30 AM EST Narrative Resulting Agency Comment Spec In Lab Iván ALVARADO HEMATOLOGY ORDERABLE S [facility] [place] [address] * (ABNORMAL) Hemogram (03/31/2020 3:15 AM EST) White Blood Cell 8.6 4.0 - 9.5 x10(3)/[facility] Red Blood Cell 2.43(L) 4.00 - 5.21 x10(6)/[facility] Hemoglobin 7.0(L) 11.7 - 15.5 gm/dL [facility] Hematocrit 22.1(L) 35.7 - 45.8 % [facility] Mean Cell Volume 90.9 82.6 - 94.4 fL [facility] Mean Cell Hemoglobin 28.8 27.1 - 32.0 pg [facility] Mean Cell Hemoglobin Concentration 31.7 31.7 - 35.0 gm/dL [facility] Platelet 249 145 - 357 x10(3)/mc L [facility] RDW Standard Deviation 43.5 37.0 - 46.0 fL [facility] RDW coefficient of variation 13.1 11.5 - 14.1 % [facility] Mean Platelet Volume 10.2 7.6 - 12.9 fL [facility] NRBC% auto 0.2 % [facility] NRBC Absolute 0.020(H) 0.000 - 0.000 x10(3)/mc L [facility] Blood specimen (specimen) 03/31/2020 3:15 AM EST 03/31/2020 3:30 AM EST Narrative Resulting Agency Comment Spec In Lab Iván ALVARADO HEMATOLOGY ORDERABLE S [facility] [place] [place] [address] * (ABNORMAL) Basic Metabolic Panel (non-fasting) (03/31/2020 3:15 AM EST) Glucose 128 65 - 199 mg/dL [facility] Comment:Diabetes: >=200 mg/d L plus symptoms Blood Urea Nitrogen 17 8 - 18 mg/dL [facility] Creatinine 1.05 0.70 - 1.20 mg/dL [facility] Sodium 138 135 - 145 mmol/L [facility] Potassium 4.2 3.5 - 5.0 mmol/L [facility] Comment: Please note: ??Patients with WBC >100,000 may have falsely elevated Potassium levels. ??For accurate Potassium quantification in these patients send serum separator tube (gold top) for subsequent determinations. ??Contact the Clinical Chemistry Laboratory if there are any questions. Chloride 107 98 - 107 mmol/L [facility] Carbon Dioxide 24 22 - 31 mmol/L [facility] Anion Gap 7 5 - 15 mmol/L [facility] Calcium 8.3(L) 8.5 - 10.5 mg/dL [facility] Est Glomerular Filtration Rate 58(L) >=60 mL/min/1. 73 m?? [facility] Comment: The eGFR was calculated using the CKD-EPI equation. As with all creatinine based estimates of kidney function, eGFR values calculated with the CKD-EPI equation are not accurate in patients with acute kidney failure, extremes of body mass or the acutely ill. [email or web address] eGFR 68 >=60 mL/min/1. 73 m?? [facility] Comment: The eGFR was calculated using the CKD-EPI equation. As with all creatinine based estimates of kidney function, eGFR values calculated with the CKD-EPI equation are not accurate in patients with acute kidney failure, extremes of body mass or the acutely ill. [email or web address] Blood specimen (specimen) 03/31/2020 3:15 AM EST 03/31/2020 3:30 AM EST Narrative Resulting Agency Comment Spec In Lab Mechelle Jacobson MD CHEMISTRY ORDERABLES Performing Organization Address City/[facility]/ZIP Co de Phone Number [facility] [place] [address] * SCAN DOC: LAB (03/31/2020 12:00 AM EST) Narrative 03/31/2020 12:00 AM EST Ordered by an unspecified provider. Scanning Provider MEDIA MGR SCAN EXT O RDR/RSLT * Scan, Peripheral Blood (03/30/2020 11:47 AM EST) Plat estimate Increased [facility] RBC Morphology Normal [facility] Blood specimen (specimen) 03/30/2020 11:47 AM EST 03/30/2020 12:10 PM EST Narrative Resulting Agency Comment Spec In Lab Iván ALVARADO HEMATOLOGY ORDERABLE S [facility] [place] [place] [address] * (ABNORMAL) Differential, Automated (03/30/2020 11:47 AM EST) Neutrophil % 72.6 % [facility] Neutrophil Absolute 10.07(H) 1.70 - 6.10 x10(3)/ L [facility] Lymph % 11.4 % [facility] Lymphocytes Abs 1.6 0.9 - 3.2 x10(3)/ L [facility] Monocyte % 15.2 % [facility] Monocyte Abs 2.1(H) 0.3 - 0.9 x10(3)/[facility] Eos % 0.1 % [facility] Eosinophils Abs 0.0 0.0 - 0.4 x10(3)/[facility] Basophil % 0.1 % [facility] Baso Absolute 0.0 0.0 - 0.1 x10(3)/[facility] Immature Gran % 0.60 % [facility] Comment: Immature granulocytes(IG's)percentage and absolute count will include metamyelocytes, myelocytes, and promyelocytes. Blood smears from CBCs yielding IG's will be scanned manually for concordance. If this scan disagrees with the automated IG or if promyelocytes are noted, a manual differential will be performed. Immature Gran Absolute 0.08(H) 0.00 - 0.04 x10(3)/ L [facility] Blood specimen (specimen) 03/30/2020 11:47 AM EST 03/30/2020 12:10 PM EST Narrative Resulting Agency Comment Spec In Lab Iván ALVARADO HEMATOLOGY ORDERABLE S [facility] [place] [place] [address] * (ABNORMAL) Hemogram (03/30/2020 11:47 AM EST) White Blood Cell 13.8(H) 4.0 - 9.5 x10(3)/ L [facility] Red Blood Cell 2.99(L) 4.00 - 5.21 x10(6)/mc L [facility] Hemoglobin 8.6(L) 11.7 - 15.5 gm/dL [facility] Hematocrit 26.5(L) 35.7 - 45.8 % [facility] Mean Cell Volume 88.6 82.6 - 94.4 fL [facility] Mean Cell Hemoglobin 28.8 27.1 - 32.0 pg [facility] Mean Cell Hemoglobin Concentration 32.5 31.7 - 35.0 gm/dL [facility] Platelet 380(H) 145 - 357 x10(3)/ L [facility] RDW Standard Deviation 42.3 37.0 - 46.0 fL [facility] RDW coefficient of variation 13.0 11.5 - 14.1 % [facility] Mean Platelet Volume 10.3 7.6 - 12.9 fL [facility] NRBC% auto 0.0 % [facility] NRBC Absolute 0.000 0.000 - 0.000 x10(3)/ L [facility] Blood specimen (specimen) 03/30/2020 11:47 AM EST 03/30/2020 12:10 PM EST Narrative Resulting Agency Comment Spec In Lab Iván ALVARADO HEMATOLOGY ORDERABLE S [facility] [place] [address] * (ABNORMAL) Basic Metabolic Panel (non-fasting) (03/30/2020 11:47 AM EST) Glucose 138 65 - 199 mg/dL [facility] Comment:Diabetes: >=200 mg/d L plus symptoms Blood Urea Nitrogen 14 8 - 18 mg/dL [facility] Creatinine 1.23(H) 0.70 - 1.20 mg/dL [facility] Sodium 135 135 - 145 mmol/L [facility] Potassium 4.1 3.5 - 5.0 mmol/L [facility] Comment: Please note: ??Patients with WBC >100,000 may have falsely elevated Potassium levels. ??For accurate Potassium quantification in these patients send serum separator tube (gold top) for subsequent determinations. ??Contact the Clinical Chemistry Laboratory if there are any questions. Chloride 101 98 - 107 mmol/L [facility] Carbon Dioxide 25 22 - 31 mmol/L [facility] Anion Gap 9 5 - 15 mmol/L [facility] Calcium 8.7 8.5 - 10.5 mg/dL [facility] Est Glomerular Filtration Rate 48(L) >=60 mL/min/1. 73 m?? [facility] Comment: The eGFR was calculated using the CKD-EPI equation. As with all creatinine based estimates of kidney function, eGFR values calculated with the CKD-EPI equation are not accurate in patients with acute kidney failure, extremes of body mass or the acutely ill. [email or web address] eGFR 56(L) >=60 mL/min/1. 73 m?? [facility] Comment: The eGFR was calculated using the CKD-EPI equation. As with all creatinine based estimates of kidney function, eGFR values calculated with the CKD-EPI equation are not accurate in patients with acute kidney failure, extremes of body mass or the acutely ill. [email or web address] Blood specimen (specimen) 03/30/2020 11:47 AM EST 03/30/2020 12:10 PM EST Narrative Resulting Agency Comment Spec In Lab Mechelle Jacobson MD CHEMISTRY ORDERABLES [facility] [place] [address] * Hemogram (03/30/2020 9:37 AM EST) White Blood Cell Clotted 4.0 - 9.5 [facility] Comment: SPECIMEN CLOTTED. SPOKE TO LILY WILLINGHAM AT 11:17 ON 03/30/20 TO NOTIFY OF CANCELATION AND TO REQUEST REDRAW. Corrected from 14.2 x10(3)/mcL [HI] on 03/30/20 11:20:35 EST by Gosia Arellano Red Blood Cell Clotted 4.00 - 5.21 [facility] Comment: SPECIMEN CLOTTED. SPOKE TO LILY WILLINGHAM AT 11:17 ON 03/30/20 TO NOTIFY OF CANCELATION AND TO REQUEST REDRAW. Corrected from 2.94 x10(6)/mcL [LOW] on 03/30/20 11:20:35 EST by Gosia Arellano Hemoglobin Clotted 11.7 - 15.5 [facility] Comment: SPECIMEN CLOTTED. SPOKE TO LILY WILLINGHAM AT 11:17 ON 03/30/20 TO NOTIFY OF CANCELATION AND TO REQUEST REDRAW. Corrected from 8.6 gm/dL [LOW] on 03/30/20 11:20:35 EST by Gosia Arellano Hematocrit Clotted 35.7 - 45.8 [facility] Comment: SPECIMEN CLOTTED. SPOKE TO LILY WILLINGHAM AT 11:17 ON 03/30/20 TO NOTIFY OF CANCELATION AND TO REQUEST REDRAW. Corrected from 25.9 % [LOW] on 03/30/20 11:20:35 EST by Gosia Arellano Mean Cell Volume Clotted 82.6 - 94.4 [facility] Comment: SPECIMEN CLOTTED. SPOKE TO LILY WILLINGHAM AT 11:17 ON 03/30/20 TO NOTIFY OF CANCELATION AND TO REQUEST REDRAW. Corrected from 88.1 fL on 03/30/20 11:20:35 EST by Gosia Arellano Mean Cell Hemoglobin Clotted 27.1 - 32.0 [facility] Comment: SPECIMEN CLOTTED. SPOKE TO LILY WILLINGHAM AT 11:17 ON 03/30/20 TO NOTIFY OF CANCELATION AND TO REQUEST REDRAW. Corrected from 29.3 pg on 03/30/20 11:20:35 EST by Gosia Arellano Mean Cell Hemoglobin Concentration Clotted 31.7 - 35.0 [facility] Comment: SPECIMEN CLOTTED. SPOKE TO LILY SANDYSULEIMAN AT 11:17 ON 03/30/20 TO NOTIFY OF CANCELATION AND TO REQUEST REDRAW. Corrected from 33.2 gm/dL on 03/30/20 11:20:35 EST by Gosia Arellano Platelet Clotted 145 - 357 [facility] Comment: SPECIMEN CLOTTED. SPOKE TO LILY WILLINGHAM AT 11:17 ON 03/30/20 TO NOTIFY OF CANCELATION AND TO REQUEST REDRAW. Corrected from 356 x10(3)/mcL on 03/30/20 11:20:35 EST by Gosia Arellano RDW Standard Deviation Clotted 37.0 - 46.0 [facility] Comment: SPECIMEN CLOTTED. SPOKE TO LILY WILLINGHAM AT 11:17 ON 03/30/20 TO NOTIFY OF CANCELATION AND TO REQUEST REDRAW. Corrected from 41.6 fL on 03/30/20 11:20:35 EST by Gosia Arellano RDW coefficient of variation Clotted 11.5 - 14.1 [facility] Comment: SPECIMEN CLOTTED. SPOKE TO LILY WILLINGHAM AT 11:17 ON 03/30/20 TO NOTIFY OF CANCELATION AND TO REQUEST REDRAW. Corrected from 12.9 % on 03/30/20 11:20:35 EST by Gosia Arellano Mean Platelet Volume Clotted 7.6 - 12.9 [facility] Comment: SPECIMEN CLOTTED. SPOKE TO LILY WILLINGHAM AT 11:17 ON 03/30/20 TO NOTIFY OF CANCELATION AND TO REQUEST REDRAW. Corrected from 10.6 fL on 03/30/20 11:20:35 EST by Gosia Arellano NRBC% auto Clotted [facility] Comment: SPECIMEN CLOTTED. SPOKE TO LILY WILLINGHAM AT 11:17 ON 03/30/20 TO NOTIFY OF CANCELATION AND TO REQUEST REDRAW. Corrected from 0.0 % [NA] on 03/30/20 11:20:35 EST by Gosia Arellano NRBC Absolute Clotted 0.000 - 0.000 [facility] Comment: SPECIMEN CLOTTED. SPOKE TO LILY WILLINGHAM AT 11:17 ON 03/30/20 TO NOTIFY OF CANCELATION AND TO REQUEST REDRAW. Corrected from 0.000 x10(3)/mcL on 03/30/20 11:20:35 EST by Gosia Arellano Blood specimen (specimen) 03/30/2020 9:37 AM EST 03/30/2020 10:05 AM EST Narrative Resulting Agency Comment Spec In Lab Iván ALVARADO HEMATOLOGY ORDERABLE S [facility] [place] [address] * (ABNORMAL) Basic Metabolic Panel (non-fasting) (03/30/2020 9:37 AM EST) Glucose 197 65 - 199 mg/dL [facility] Comment:Diabetes: >=200 mg/d L plus symptoms Blood Urea Nitrogen 12 8 - 18 mg/dL [facility] Creatinine 1.11 0.70 - 1.20 mg/dL [facility] Sodium 138 135 - 145 mmol/L [facility] Potassium 4.4 3.5 - 5.0 mmol/L [facility] Comment: Please note: ??Patients with WBC >100,000 may have falsely elevated Potassium levels. ??For accurate Potassium quantification in these patients send serum separator tube (gold top) for subsequent determinations. ??Contact the Clinical Chemistry Laboratory if there are any questions. Chloride 104 98 - 107 mmol/L [facility] Carbon Dioxide 23 22 - 31 mmol/L [facility] Anion Gap 11 5 - 15 mmol/L [facility] Calcium 8.3(L) 8.5 - 10.5 mg/dL [facility] Est Glomerular Filtration Rate 55(L) >=60 mL/min/1. 73 m?? [facility] Comment: The eGFR was calculated using the CKD-EPI equation. As with all creatinine based estimates of kidney function, eGFR values calculated with the CKD-EPI equation are not accurate in patients with acute kidney failure, extremes of body mass or the acutely ill. [email or web address] eGFR 63 >=60 mL/min/1. 73 m?? [facility] Comment: The eGFR was calculated using the CKD-EPI equation. As with all creatinine based estimates of kidney function, eGFR values calculated with the CKD-EPI equation are not accurate in patients with acute kidney failure, extremes of body mass or the acutely ill. [email or web address] Blood specimen (specimen) 03/30/2020 9:37 AM EST 03/30/2020 10:05 AM EST Narrative Resulting Agency Comment Spec In Lab Mechelle Jacobson MD CHEMISTRY ORDERABLES [facility] [place] [address] * SCAN DOC: IMPLANTABLE DEVICES (03/29/2020 12:00 AM EST) Narrative 03/29/2020 12:00 AM EST Ordered by an unspecified provider. Scanning Provider MEDIA MGR SCAN EXT O RDR/RSLT documented in this encounter Visit Diagnoses Diagnosis Primary osteoarthritis of left knee- Primary Primary localized osteoarthrosis, lower leg s/p Left Total Knee Arthroplasty - 03/29/2020 Dr. Jacobson Primary localized osteoarthrosis, lower leg Morbid obesity Chronic pain of left knee Pain in joint, lower leg Chronic pain of left knee Pain in joint, lower leg Morbid obesity Primary osteoarthritis of left knee Primary localized osteoarthrosis, lower leg Morbid obesity Chronic pain of left knee Pain in joint, lower leg Saphenous neuralgia, right documented in [...] 8 HOURS SCHEDULED, First dose on Gerda 11/19/20 at 2200, Until Discontinued, Maximum dose of [...] Given 03/31/2020 8:52 PM EST 10 mg BUpivacaine (PF) (MARCAINE) 0.25 % (2.5 mg/mL) injection ONCE PRN, Starting on Gerda 03/29/20 at 1807, Until 04/01/20 at 1740, Intra-Operative (Intra-Procedure), Routine Given 03/29/2020 6:07 PM EST 30 mLs 19- Surgical Site ceFAZolin (ANCEF) 3g in dextrose 5% 100 [...] dose, Starting on Thu03/30/20 at 1054, Until 04/01/20 at 1740, Pain, Routine oxyCODONE (Roxicodone) tablet [...] Melani Goncalves RN)1437 (Given - Provider: Lily Roldan)211 (Given - Provider: Sergio Barber, SONNY) 0630 [...] Goncalves RN)0922 (Given - Provider: Dora Villafuerte LPN)211 (Given - Provider: Sergio Barber RN) 09 [...] Vivar, SONNY) 0807 (Given - Provider: Sue Alvarado RN)1416 (Given - Provider: Sue Alvarado RN) ceFAZolin [...] Villafuerte LPN) 806 (Given - Provider: Sue Alvarado RN) fenofibrate micronized (Lofibra) capsule 200 mg 200 mg, Oral, NIGHTLY, First dose on Thu03/31/20 at 2100, Until Discontinued 2052 (Given - Provider: Cody Vivar, SONNY) HYDROmorphone (DILAUDID) injection 0.2 mg (COMPLETED) 0.2 [...] time.) 0511 (Not Given - Provider: Cody Vivar RN - Reason: Patient/family refused) lidocaine (LIDODERM) 5 [...] patch 1999 (Patch Removed - Provider: Sergio Barber, SONNY) 1999 (Patch Removed - Provider: Cody Vivar SONNY) pantoprazole EC (Protonix) tablet 20 mg 20 mg, Oral, DAILY, First dose on Thu03/30/20 at 0900, Until Discontinued, DO NOT CRUSH OR OPEN 0922 (Given - Provider: Dora Villafuerte LPN) 09 [...] refused) 906 (Given - Provider: Dora Villafuerte LPN)2056 (Given - Provider: Cody Vivar [...] Dora Villafuerte LPN)2116 (Given - Provider: Sergio Barber RN) 09 (Given - Provider: Dora Villafuerte LPN)2052 (Given - Provider: Cody Vivar, SONNY) 0808 (Given - Provider: Sue Alvarado RN) sodium chloride 0.9% 500 mL IV [...] STAT 0108 (Given - Provider: Melani Goncalves, SONNY) Continuous Medication Order 03/30/2020 03/31/2020 04/01/2020 sodium [...] 10 mg, Rectal, DAILY PRN, Starting on Thu03/30/20 at 0130, Until 04/01/20 at 1740, Constipation, [...] dose, Starting on Thu03/30/20 at 1054, Until 04/01/20 at 1740, Pain, Routine oxyCODONE (Roxicodone) tablet [...] Thu03/30/20 at 0130, Until 04/01/20 at 1740, flush, Flush pertains to all [...] patch documented in this encounter Care Teams Paint Line Supervisor Relationship Specialty Start Date End Date Bob Day MD [address] [place] [address] PCP - General Family Medicine 01/18/18 07/26/20 documented as of this encounter
--- OUTSIDE RECORDS SUMMARY | 2024-04-05 16:29 | XMS_ITS | Encounter Summary ---
Author Organization [facility] Address [facility] [place] [address] Care Team Providers Care Automobile Radio Repairer Name Role Phone Bob Day MD Primary Care Provider [phone] [phone] Reason for Visit * Auth/Cert Specialty Diagnoses / Procedures Referred By Contac t Referred To Contact Diagnoses Pump Procedures PRO ELECTRONIC PUMP ANALYSIS W REPROGRAMMING AND REFILL BY MD/RIB STIFFENER AND HEEL DIPPER ELECTRONIC HERNANDEZ PROG., PUMP- DRUG INFUS; W/ REPROGRAM & REFILL REQ (WRVU 0.9) Referral ID Status Reason Start Date Expiration Date Visits Re quested Visits Authorized [id number] 1 1 Encounter Details Date Type Department Care Team (Late st Contact Info) Description 03/12/2020 2:00 PM EST Ancillary [place] [address] Social History Tobacco Use Types Packs/Day Years [...] AM EST Hospital Encounter [place] [address] Cadence Eric MD [facility] [place] [address] 04/06/2024 11:30 AM EST - 04/06/2024 12:50 PM EST Surgery [place]patient [place] [address] Cadence Eric MD [facility] [place] [address] IMPLANT NEUROSTIMULATOR ELECTRODES, PERIPHERAL NERVE (WRVU 5.76) 04/14/2024 2:30 PM EST Office Visit [place] [phone] Cadence Eric MD [facility] [place] [address] Pending Results Name Type Priority Associated Diagnoses Date /Time Film Library- Storage Only pain Clinic C-Arm Imaging Storage Only Routine Pain 03/12/2020 1:46 PM EST Scheduled Procedures Name Priority Associated Diagnoses Date/Ti wa IMPLANT NEUROSTIMULATOR ELECTRODES, PERIPHERAL NERVE (WRVU 5.76) Yes Saphenous neuralgia, right 04/06/2024 11:30 AM EST IMPLANT NEUROSTIMULATOR ELECTRODES, PERIPHERAL NERVE (WRVU 5.76) Saphenous neuralgia, 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 Neuropathic pain COLONOSCOPY,SCREENING (WRVU 3.26) Health maintenance examination-screening colo documented as of this encounter Visit Diagnoses Not on filedocumented in this encounter Care Teams Automobile Radio Repairer Relationship Specialty Start Date End Date Bob Day MD [address] [place] [address] PCP - General Family Medicine 01/18/18 07/26/20 documented as of this encounter
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
--- OUTSIDE RECORDS SUMMARY | 2024-04-05 16:29 | XMS_ITS | Encounter Summary ---
Author Organization [facility] Address [facility] [place] [address] Care Team Providers Care Mortgage Loan Processor Name Role Phone Bob Day MD Primary Care Provider [phone] Encounter Details Date Type Department Care Team (Late st Contact Info) Description 02/21/2020 [place] [phone] Toan Gilliam Social History Tobacco Use Types Packs/Day Years [...] * Telephone Encounter - Toan Gilliam - 02/21/2020 12:43 PM EDT Called to discuss post operative pain managemet with the mutual patient. She currently has a cronicpain contract with her PCP and the Spine center. We would like to know whether they will be managing post operative opioid medications or if they would like our office to manage them. A message was left and we should be hearing back this week. documented in this encounter Plan of Treatment Upcoming Encounters Date Type Department Care Team (Latest Contact Info) Description 04/06/2024 11:30 AM EST Hospital Encounter [place]patient [place] [address] Cadence Eric MD [facility] [place] [address] 04/06/2024 11:30 AM EST - 04/06/2024 12:50 PM EST Surgery [place] [address] Cadence Eric MD [facility] [place] [address] IMPLANT NEUROSTIMULATOR ELECTRODES, PERIPHERAL NERVE (WRVU 5.76) 04/14/2024 2:30 PM EST Office Visit [place] [address] Cadence Eric MD [facility] [place] [address] Scheduled Procedures Name Priority Associated Diagnoses Date/Ti [...] on filedocumented in this encounter Care Teams Mortgage Loan Processor Relationship Specialty Start Date End Date Bob Day MD [address] [place] [address] PCP - General Family Medicine 01/18/18 07/26/20 documented as of this encounter
--- OUTSIDE RECORDS SUMMARY | 2024-04-05 16:29 | XMS_ITS | Encounter Summary ---
[place] [address] Care Team Providers Care Warehouse Unloader Name Role Phone Bob Day MD Primary Care Provider +1 -[phone] Encounter Details Date Type Department Care Team (Late st Contact Info) Description 02/23/2020 [place] [phone] Lauren Granda Social History Tobacco Use Types Packs/Day Years [...] encounter Miscellaneous Notes * Telephone Encounter - Lauren Granda - 02/23/2020 10:07 AM EDT 1. ASK: TRAVEL ???Have you travelled outside of [place] ([place], [place], [place], [place], [place], [place]) in the past 14 days??? 2. ASK: [...] Transfer patient to the Covid-19 Hotline Number ([phone]) for further instructions. If 'No' to all of the questions above Is this the first test for Covid 19 Yes If no, please list date of previous test, result, and type of test (Molecular, Antigen, Antibody orunknown): Resides in congregate care setting No Employee or Household Member of Employee No Healthcare Worker No Schedule appointment: Give directions to testing facility. Please advise patient that all passengers in the vehicle must wear a mask and to please either leave their dogs at home or have them crated/behind a net. Telephone call placed/received to schedule Covid 19 testing with patient. Ordering provider: Dr Jacobson Testing Facility: [facility] Date of Testin/16 Time of Testin:00pm Symptoms: no documented in this encounter Plan of Treatment Upcoming Encounters Date Type Department Care Team (Latest Contact Info) Description 04/06/2024 11:30 AM EST Hospital Encounter Outpatient [place] [address] Cadence Eric MD [facility] [place] [address] 04/06/2024 11:30 AM EST - 04/06/2024 12:50 PM EST Surgery Outpatient [place] [address] Cadence Eric MD [facility] [place] [address] IMPLANT NEUROSTIMULATOR ELECTRODES, PERIPHERAL NERVE (WRVU 5.76) 04/14/2024 2:30 PM EST Office Visit [facility] [place] [address] Cadence Eric MD [facility] [place] [address] Scheduled Procedures Name Priority Associated Diagnoses Date/Ti [...] on filedocumented in this encounter Care Teams Warehouse Unloader Relationship Specialty Start Date End Date Bob Day MD [address] [place] [address] PCP - General Family Medicine 01/18/18 07/26/20 documented as of this encounter
--- OUTSIDE RECORDS SUMMARY | 2024-04-05 16:29 | XMS_ITS | Encounter Summary ---
[place] [address] Care Team Providers Care Life Tester Outboard Motors Name Role Phone Bob Day MD Primary Care Provider [phone] [phone] Encounter Details Date Type Department Care Team (Late st Contact Info) Description 03/16/2020 [place] [phone] Miesha Long, OUTPATIENT COORDINATOR [address] [place] [address] Social History Tobacco Use Types Packs/Day Years [...] encounter Miscellaneous Notes * Telephone Encounter - Marium Edmonds V - 03/16/2020 2:10 PM EST 1. ASK: TRAVEL ???Have you travelled outside of [place] ([place], [place], [place], [place], [place]) in the past 14 days??? 2. ASK: [...] Transfer patient to the Covid-19 Hotline Number ([phone]) for further instructions. If 'No' to all of the questions above Is this the first test for Covid 19 Yes If no, please list date of previous test, result, and type of test (Molecular, Antigen, Antibody orunknown): Resides in long term, alf or other residential facility No Employee or Household Member of Employee No Healthcare Worker No Schedule appointment: Give directions to testing facility. Please advise patient that all passengers in the vehicle must wear a mask and to please either leave their dogs at home or have them crated/behind a net. Telephone call placed/received to schedule Covid 19 testing with patient. Ordering provider: Dr. Jacobson Testing Facility: [facility] Date of Testin/16 Time of Testin:40 Symptoms: none * Telephone Encounter - Miesha Acuna RN - 03/16/2020 1:26 PM EST Patient called looking of for pre op team for covid testing for surgery. Message sent for them to call back. documented in this encounter Plan of Treatment Upcoming Encounters Date Type Department Care Team (Latest Contact Info) Description 04/06/2024 11:30 AM EST Hospital Encounter Outpatient [place] [phone] Cadence Eric MD [facility] [place] [address] 04/06/2024 11:30 AM EST - 04/06/2024 12:50 PM EST Surgery Outpatient [place] [address] Cadence Eric MD [facility] [place] [address] IMPLANT NEUROSTIMULATOR ELECTRODES, PERIPHERAL NERVE (WRVU 5.76) 04/14/2024 2:30 PM EST Office Visit [place] [address] Cadence Eric MD [facility] [place] [address] Scheduled Procedures Name Priority Associated Diagnoses Date/Ti [...] on filedocumented in this encounter Care Teams Life Tester Outboard Motors Relationship Specialty Start Date End Date Bob Day MD [address] [place] [address] PCP - General Family Medicine 01/18/18 07/26/20 documented as of this encounter
--- OUTSIDE RECORDS SUMMARY | 2024-04-05 16:29 | XMS_ITS | Encounter Summary ---
Author Organization [facility] [place] [address] Care Team Providers Care Beading Sawyer Name Role Phone Bob Day MD Primary Care Provider [phone] [phone] Encounter Details Date Type Department Care Team (Late st Contact Info) Description 02/02/2020 Telephone [place] [phone] Pawel Glez Social History Tobacco Use Types [...] encounter Miscellaneous Notes * Telephone Encounter - Pawel Glez - 02/02/2020 1:34 PM EDT Patient does not know which pharmacy she will be using, so she will call us closer to the date of her procedure to let us know. * Telephone Encounter - Pawel Glez - 02/02/2020 1:27 PM EDT Etelvina Cuadra [id number] Diagnosis/Indication: Z12.11 (ICD-10-CM) - Encounter for screening for malignant neoplasm of colon 1. Have you ever had a/an Colonoscopy before? Yes: Date 2013 in [place] If yes, did you have any problems with the procedure? No What type of sedation was used: General Anesthesia 2. Do you take any Blood Thinners? No 3. Do you have a Pacemaker or Defibrillator device? No 4. Are you a diabetic? No 5. Do you have any Allergies to Eggs, Latex or Medications? Yes: See chart 6. Do you take any Oral Iron Supplements (Including multi-vitamins)? No 7. Do you have a history of three or more abdominal surgeries? No 8. Have you had a problem with sedation or anesthesia? Yes 9. Do you have a c-pap machine or oxygen tank? Neither 10. Do you take prescription narcotic pain medications, including suboxone or methodone? Yes 11. Do you have a preference regarding the gender of your provider? No Preference 12. Is there any other information you would like to give us to aid in scheduling? No 13. Say to patient: You must have a responsible libertarian who will drive you to your procedure, stay [place] for the entire duration of your procedure, and drive you home from your procedure? *Please Verify the height and weight, and adjust if height and/or weight have changed* Estimated body mass index is 44.92 kg/m?? as calculated from the following: Height as of 12/06/19: 152.4 cm (5'). Weight as of 12/06/19: 104.3 kg (230 lb). Age:59 y.o. documented in this encounter Plan of Treatment Upcoming Encounters Date Type Department Care Team (Latest Contact Info) Description 04/06/2024 11:30 AM EST Hospital Encounter [place] [address] Cadence Eric MD [facility] [place] [address] 04/06/2024 11:30 AM EST - 04/06/2024 12:50 PM EST Surgery [place] [phone] Cadence Eric MD [facility] [place] [address] IMPLANT NEUROSTIMULATOR ELECTRODES, PERIPHERAL NERVE (WRVU 5.76) 04/14/2024 2:30 PM EST Office Visit [place] [phone] Cadence Eric MD [facility] PAIN [place] [address] Scheduled Procedures Name Priority Associated Diagnoses Date/Ti [...] on filedocumented in this encounter Care Teams Beading Sawyer Relationship Specialty Start Date End Date Bob Day MD [address] [place] [address] PCP - General Family Medicine 01/18/18 07/26/20 documented as of this encounter
--- OUTSIDE RECORDS SUMMARY | 2024-04-05 16:29 | XMS_ITS | Encounter Summary ---
Author Organization [facility] Address [facility] [place] [address] Care Team Providers Care Cesspool Cleaner Name Role Phone Bob Day MD Primary Care Provider [phone] Reason for Visit * Reason Onset Date Comments Medication Refill 03/27/2020 Encounter Details Date Type Department Care Team (Late st Contact Info) Description 03/27/2020 Refill Primary Care at [address] [address] Bob Day MD [address] [place] [address] Social History Tobacco Use Types Packs/Day Years [...] Notes * Telephone Encounter - Brisa Beard WEIGHT TRAINER - 03/28/2020 9:56 AM EST Caller: Etelvina Cuadra Relationship to Patient: self Best number to be reached: Rx Renewal: PCP: Bob Day MD Last encounter this office: Visit date not found Last relevant appointment: 02/16/2020 Next appt this provider: 06/20/2020 Last Prescription Fill Date: 02/28/2020 Number Dispensed and Refills: #84 tabs w/no refills Medication and Dose: Oxycodone 10mg tid UDS: 10/14/2018 Contract: 09/29/2019 [place] searched: Opio[place] PDMP 02/21/2020 06/24/2018 [place] Query Date 02/21/2020 07/15/2018 [place] PD[place] Query Date 02/21/2020 07/15/2018 [place] Query Date 02/21/2020 07/15/2018 Send to Pharmacy: [id number] - [place], [place] - [address] [facility] [address] Lab Results Component Value Date HGB 12.1 02/21/2020 HCT 38.1 02/21/2020 CHLPL 155 (External Lab) 02/08/2019 TRIG 54 (External Lab) 02/08/2019 HDL 67 (External Lab) 02/08/2019 LDLCHOL 77 (External Lab) 02/08/2019 ALT 29 (External Lab) 02/08/2019 AST 29 (External Lab) 02/08/2019 NA 140 02/21/2020 K 4.1 02/21/2020 CL 105 02/21/2020 CREATININE 0.79 02/21/2020 TSH 0.592 (External Lab) 02/09/2020 INR 1.0 02/21/2020 documented in this encounter Plan of Treatment Upcoming Encounters Date Type Department Care Team (Latest Contact Info) Description 04/06/2024 11:30 AM EST Hospital Encounter [place]patient [place] [address] Cadence Eric MD [facility] [place] [address] 04/06/2024 11:30 AM EST - 04/06/2024 12:50 PM EST Surgery [place] [address] aCdence Eric MD [facility] [place] [address] IMPLANT NEUROSTIMULATOR ELECTRODES, PERIPHERAL NERVE (WRVU 5.76) 04/14/2024 2:30 PM EST Office Visit [place] [phone] Cadence Eric MD [facility] [place] [address] Scheduled Procedures Name Priority Associated Diagnoses Date/Ti [...] on filedocumented in this encounter Care Teams Cesspool Cleaner Relationship Specialty Start Date End Date Bob Day MD [address] [place] [address] PCP - General Family Medicine 01/18/18 07/26/20 documented as of this encounter
--- OUTSIDE RECORDS SUMMARY | 2024-04-05 16:29 | XMS_ITS | Encounter Summary ---
Author Organization [facility] Address [facility] [place] [address] Care Team Providers Care Geropsychologist Name Role Phone Bob Day MD Primary Care Provider +1 [phone] Encounter Details Date Type Department Care Team (Late st Contact Info) Description 12/06/2019 12:30 PM EDT Ancillary Procedure [place] [phone] Karl Becker MD [facility] [place] [address] Pain Social History Tobacco Use Types Packs/Day [...] AM EST Hospital Encounter Outpatient [place] [phone] Cadence Eric MD [facility] [place] [address] 04/06/2024 11:30 AM EST - 04/06/2024 12:50 PM EST Surgery Outpatient [place] [address] Cadence Eric MD [facility] [address] [place] [address] IMPLANT NEUROSTIMULATOR ELECTRODES, PERIPHERAL NERVE (WRVU 5.76) 04/14/2024 2:30 PM EST Office Visit [place] [address] Cadence Eric MD [facility] [place] [address] Pending Results Name Type Priority Associated Diagnoses Date /Time Film Library- Storage Only pain Clinic [facility] Storage Only Routine Pain 12/05/2019 1:21 PM EDT Scheduled Procedures Name Priority Associated Diagnoses Date/Ti [...] right documented in this encounter Care Teams Geropsychologist Relationship Specialty Start Date End Date Bob Day MD [address] [place] [address] PCP - General Family Medicine 01/18/18 07/26/20 documented as of this encounter
--- OUTSIDE RECORDS SUMMARY | 2024-04-05 16:29 | XMS_ITS | Encounter Summary ---
Author Organization [facility] Address [facility] [place] [address] Care Team Providers Care Picker Box Operator Name Role Phone Bob Day MD Primary Care Provider [phone] [phone] Encounter Details Date Type Department Care Team (Late st Contact Info) Description 02/21/2020 Telephone Primary Care at [facility] [address] [place] [address] Bob Day MD [address] [place] [address] Social History Tobacco Use Types Packs/Day Years [...] Miscellaneous Notes * Telephone Encounter - Shira Goncalves RN - 02/22/2020 12:42 PM EDT Spoke to RN at [facility] who stated they would manage pain medications for one month post operative. She was going to coordinate with [facility] pain clinic. * Telephone Encounter - Shira Goncalves RN - 02/22/2020 10:38 AM EDT I called and spoke to the patient to verify the pain medications. She stated she does have both thepain pump and oral pain medications. I will call to discuss with orthopedics about them managing post operative pain. From discussion with the patient, the pain in her back is unrelated to her upcoming surgery. * Telephone Encounter - Bob Day MD - 02/22/2020 7:58 AM EDT Please contact this (these folks) at [facility]. Marlee is on a pain pump managed by the [facility] pain specialist. I give her her oral pain meds. I want the ortho people to manage her post op pain until they feel she is back to baseline and has no more post op pain. Pllease discuss with them. /ls * Telephone Encounter - Vikki Arthur - 02/21/2020 2:00 PM EDT Pt is having knee surg mar 19 is calling asking if you'd like to manage pain meds Please call mike or send Santi alvarado msg in [facility] documented in this encounter Plan of Treatment Upcoming Encounters Date Type Department Care Team (Latest Contact Info) Description 04/06/2024 11:30 AM EST Hospital Encounter [place] [address] Cadence Eric MD [facility] [place] [address] 04/06/2024 11:30 AM EST - 04/06/2024 12:50 PM EST Surgery [place] [phone] Cadence Eric MD [facility] [place] [address] IMPLANT NEUROSTIMULATOR ELECTRODES, PERIPHERAL NERVE (WRVU 5.76) 04/14/2024 2:30 PM EST Office Visit [place] [address] Cadence Eric MD [facility] [place] [address] Scheduled Procedures Name Priority Associated Diagnoses Date/Ti [...] on filedocumented in this encounter Care Teams Picker Box Operator Relationship Specialty Start Date End Date Bob Day MD [address] [place] [address] PCP - General Family Medicine 01/18/18 07/26/20 documented as of this encounter
--- OUTSIDE RECORDS SUMMARY | 2024-04-05 16:29 | XMS_ITS | Encounter Summary ---
Author Organization [facility] Address [facility] [place] [address] Care Team Providers Care Hydraulic Barker Operator Name Role Phone Bob Day MD Primary Care Provider [phone] [phone] Encounter Details Date Type Department Care Team (Latest Contact Info) Description 12/06/2019 10:26 AM EDT - 12/06/2019 11:59 PM EDT Hospital Encounter XRay at [address] [place] [address] Maykel Jung MD [facility] [place] [address] Primary osteoarthritis of left knee Discharge Disposition: [...] daily. 2 gummies daily=4MG NARCAN 4 mg/actuation [place], Non-Aerosol instill 1 spray in 1 NOSTRIL if needed for opioid overdose may re... (REFER TO PRESCRIPTION NOTES). 0 12/08/2018 multivitamin with minerals Tablet Take 1 tablet by mouth daily. morphine sulfate/D5W (MORPHINE IN D5W) 1 mg/mL Prefilled Pump [place] Inject as directed. Has intrathecal pump with [...] for 30 days. 30 tablet 04/01/2020 05/01/2020 oxyCODONE (Roxicodone) 5 mg Tablet Take 1-3 tablets by mouth every 3 hours as needed for Pain. 45 tablet 04/01/2020 04/01/2020 acetaminophen (Tylenol) 500 mg Tablet Take 2 tablets by mouth every 8 hours. 04/01/2020 04/01/2020 aspirin EC 81 mg Tablet, Delayed Release (E.C.) Take 1 tablet by mouth 2 times daily for 30 days. 04/01/2020 04/01/2020 baclofen (Lioresal) 10 mg Tablet Take 1 tablet by mouth 3 times daily. 90 tablet 04/01/2020 04/01/2020 bisacodyl EC (Dulcolax) 5 mg Tablet, Delayed Release (E.C.) Take 2 tablets by mouth 2 times daily as needed for Constipation. 30 tablet 04/01/2020 04/01/2020 naproxen (ANAPROX) 275 mg Tablet Take 1 tablet by mouth 2 times daily (with meals) for 30 days. 04/01/2020 04/01/2020 omeprazole (PriLOSEC OTC) 20 mg Tablet, Delayed Release (E.C.) Take 1 tablet by mouth daily for 30 days. 04/01/2020 04/01/2020 senna-docusate (Pericolace) 8.6-50 mg Tablet Take 1 [...] needed for Pain. 45 tablet 04/01/2020 04/03/2020 albuteroL 90 mcg/actuation HFA Aerosol Inhaler Inhale 1-2 puffs into the lungs Every 4 hours. 12/06/2018 09/04/2021 aspirin EC (Aspirin Low Dose) 81 mg Tablet, Delayed Release (E.C.) Take by mouth Daily. 01/16/201602/20 PROAIR HFA 90 mcg/actuation HFA Aerosol Inhaler inhale 1 to 2 puffs by mouth every 4 to 6 hours if needed for wheezing 0 12/06/2018 06/20/2020 YUVAFEM 10 mcg Tablet insert 1 tablet vaginally two times a week 0 12/06/2018 02/21/2020 flu vacc [id number] up,/PF (FLUARIX QUAD [id number], PF,) 60 mcg (15 mcg x 4)/0.5 mL Syringe inject 0.5 milliliters intramuscularly 0 01/07/2019 02/21/2020 HAVRIX, PF, 1,440 SONIDO unit/mL Syringe inject 1 milliliter intramuscularly 0 01/07/2019 02/21/2020 citalopram (CeleXA) 20 mg Tablet 20 mg daily. 0 02/04/2019 05/09/2020 morphine 100 % Powd 10 mg/mLIndications:Pos t laminectomy syndrome,Postlaminec karolina syndrome by Intrathecal route continuous. 42 mL 12/01/2018 09/09/2021 baclofen (LIORESAL) 10 mg Tablet Take 10 mg by mouth as needed. 02/21/2020 calcium citrate-vitamin D (CITRACAL+D) 315-200 mg-unit Tablet Take by mouth daily. 02/20 fenofibrate (TRICOR) 145 mg Tablet Take 145 mg by mouth daily. 02/21/2020 oxyCODONE (ROXICODONE) 10 mg Tablet Take 1 tablet by mouth every 3 hours as needed (pain). 25 tablet 07/15/2018 02/27/2020 polyethylene glycol (MIRALAX) 17 gram Powder in Packet Take by mouth as needed. 05/09/2020 EPINEPHrine 1 mg/mL Kit Inject as directed as needed. 09/04/2021 oxyCODONE (OXYCONTIN) 20 mg tablet,oral only,ext.rel.12 hr Take 20 mg by mouth every 12 hours. 02/21/2020 acetaminophen (TYLENOL) 500 mg Tablet Take 2 tablets by mouth every 6 hours as needed for Pain. 10/20/2016 02/21/2020 fenofibrate (TRIGLIDE) 160 mg Tablet Take 160 mg by mouth nightly. 11/15/2015 07/25/2020 levothyroxine (SYNTHROID) 100 mcg tablet 100 MCG = 1 Tablet(s), PO, Once daily 03/19/2010 07/25/2020 documented as of this encounter Plan of Treatment Upcoming Encounters Date Type Department Care Team (Latest Contact Info) Description 04/06/2024 11:30 AM EST Hospital Encounter [place] [address] Cadence Eric MD [facility] [place] [address] 04/06/2024 11:30 AM EST - 04/06/2024 12:50 PM EST Surgery [place] [address] Cadence Eric MD [facility] [place] [address] IMPLANT NEUROSTIMULATOR ELECTRODES, PERIPHERAL NERVE (WRVU 5.76) 04/14/2024 2:30 PM EST Office Visit [place] [address] Cadence Eric MD [facility] [place] [address] Scheduled Procedures Name Priority Associated Diagnoses Date/Ti [...] KNEE STANDING ALIGNMENT AP LAT [place] SKYLINE BILAT Routine 12/06/2019 10:50 AM EDT Primary osteoarthritis of left knee documented in this encounter Results * XR Knee Standing Alignment AP Lat [place] Apache Bilat (12/06/2019 10:50 AM EDT) Anatomical Region Laterality Modality Bilateral Digital Radiogra phy Impressions 12/06/2019 12:10 PM EDT 1. ??Uncomplicated right medial unicompartment knee arthroplasty. 2. ??Left knee osteoarthropathy. 3. ??Bilateral moderate knee joint effusions are nonspecific. 4. ??Standing alignment as detailed above. I have personally reviewed the image(s) and the resident's interpretation and agree with the findings, Ana Desir at 12/06/2019 12:10 PM Thank you for letting us participate in the care of this patient. For questions regarding this report, please contact the number below. ? Narrative 12/06/2019 12:10 PM EDT EXAMINATION: XR KNEE STANDING ALIGNMENT AP LAT [place] SKYLINE BILAT CLINICAL HISTORY: Left knee osteoarthritis and right knee uni 2011 (as entered by ordering provider in the order requisition) TECHNIQUE: Separate images of the pelvis, knees and feet were acquired in the AP projection with the patient standing. These images were stitched together to form a composite image of the pelvis and legs allowing for evaluation of lower extremity alignment in the weight bearing position. AP, Rivera, sunrise views of the knees, lateral views of each knee. COMPARISON: Left knee radiographs 11/14/2019 FINDINGS: Status post right medial tibiofemoral hemiarthroplasty. No periprosthetic fracture or evidence of loosening. Right knee patellofemoral osteoarthropathy characterized by osteophyte formation. Left knee osteoarthropathy characterized by medial compartment joint space narrowing and tricompartmental osteophyte formation. Bilateral moderate knee joint effusions. Right-sided sacroiliac screws are present. Standing alignment: Mechanical axis of the right knee passes 2.8 cm medial to the tibial eminence. Mechanical axis of the left knee passes 4.8 cm medial to the tibial eminence. No pelvic tilt. Procedure Note Ana Desir MD - 12/06/2019 EXAMINATION: XR KNEE STANDING ALIGNMENT AP LAT [place] SKYLINE BILAT CLINICAL HISTORY: Left knee osteoarthritis and right knee uni 2011 (asentered by ordering provider in the order requisition) TECHNIQUE: Separate images of the pelvis, knees and feet were acquired inthe AP projection with the patient standing. These images were stitched togetherto form a composite image of the pelvis and legs allowing for evaluation oflower extremity alignment in the weight bearing position. AP, Rivera, sunriseviews of the knees, lateral views of each knee. COMPARISON: Left knee radiographs 11/14/2019 FINDINGS: Status post right medial tibiofemoral hemiarthroplasty. Noperiprosthetic fracture or evidence of loosening. Right knee patellofemoral osteoarthropathy characterized by osteophyte formation. Left knee osteoarthropathy characterized by medial compartment jointspace narrowing and tricompartmental osteophyte formation. Bilateral moderate knee joint effusions. Right-sided sacroiliac screws are present. Standing alignment: Mechanical axis of the right knee passes 2.8 cm medial to the tibialeminence. Mechanical axis of the left knee passes 4.8 cm medial to the tibialeminence. No pelvic tilt. IMPRESSION 1. Uncomplicated right medial unicompartment knee arthroplasty. 2. Left knee osteoarthropathy. 3. Bilateral moderate knee joint effusions are nonspecific. 4. Standing alignment as detailed above. I have personally reviewed the image(s) and the resident's interpretationand agree with the findings, Ana Desir at 12/06/2019 12:10 PM Thank you for letting us participate in the care of this patient. Forquestions regarding this report, please contact the number below. Maykel Jung MD IMG DX ORDERABLES documented in this encounter Visit Diagnoses Diagnosis Primary osteoarthritis of left knee Primary localized osteoarthrosis, lower leg Saphenous neuralgia, right documented in this encounter Care Teams Hydraulic Barker Operator Relationship Specialty Start Date End Date Bob Day MD ANJU ARMENTA [facility] [place] [address] PCP - General Family Medicine 01/18/18 07/26/20 documented as of this encounter
--- OUTSIDE RECORDS SUMMARY | 2024-04-05 16:29 | XMS_ITS | Encounter Summary ---
Author Organization [facility] Address [facility] [place] [address] Care Team Providers Care Assembler Piano Name Role Phone Bob Day MD Primary Care Provider [phone] [phone] Encounter Details Date Type Department Care Team (Late st Contact Info) Description 02/16/2020 [facility] Conversion Results [address] [place] [phone] [facility] Conversion, Flowsheet Provider, Social History Tobacco Use Types Packs/Day Years [...] Sign Reading Time Taken Comments Blood Pressure 116/74 02/16/2020 12:00 AM EDT Sourced from [facility] Conversion Pulse - - Temperature - - Respiratory Rate - - Oxygen Saturation - - Inhaled Oxygen Concentration - - Weight 105.1 kg (231 lb 12.8 oz) 02/16/2020 12:00 AM EDT Sourced from [facility] Conversion Height 152 cm (4' 11.84) 02/16/2020 12 :00 AM EDT Sourced from [facility] Conversion Body Mass Index 45.51 02/16/2020 12:00 AM EDT documented in this encounter Plan of Treatment Upcoming Encounters Date Type Department Care Team (Latest Contact Info) Description 04/06/2024 11:30 AM [facility] Hospital Encounter [place]patient [place] [address] Cadence Eric MD [facility] [place] [address] 04/06/2024 11:30 AM EST - 04/06/2024 12:50 PM EST Surgery [place] [place] [address] Cadence Eric MD [facility] [place] [address] IMPLANT NEUROSTIMULATOR ELECTRODES, PERIPHERAL NERVE (WRVU 5.76) 04/14/2024 2:30 PM EST Office Visit [place] [address] Cadence Eric MD [facility] [place] [address] Scheduled Procedures Name Priority Associated Diagnoses Date/Ti [...] on filedocumented in this encounter Care Teams Assembler Piano Relationship Specialty Start Date End Date Bob Day MD [address] [place] [address] PCP - General Family Medicine 01/18/18 07/26/20 documented as of this encounter
--- OUTSIDE RECORDS SUMMARY | 2024-04-05 16:29 | XMS_ITS | Encounter Summary ---
Author Organization [facility] Address [facility] [place] [address] Care Team Providers Care Architectural Designer Name Role Phone Bob Day MD Primary Care Provider [phone] [phone] Encounter Details Date Type Department Care Team (Late st Contact Info) Description 03/26/2020 10:00 AM [facility] [place] [phone] COVID-19 ruled out Social History Tobacco Use Types Packs/Day Years [...] (Latest Contact Info) Description 04/06/2024 11:30 AM [facility] Hospital Encounter [place]patient [place] [address] Cadence Eric MD [facility] [place] [address] 04/06/2024 11:30 AM EST - 04/06/2024 12:50 PM EST Surgery [place]patient [place] [phone] Cadence Eric MD [facility] [address] IMPLANT NEUROSTIMULATOR ELECTRODES, PERIPHERAL NERVE (WRVU 5.76) 04/14/2024 2:30 PM EST Office Visit [facility] Sp[facility] at [facility] [place] [phone] Cadence Eric MD [facility] [address] Scheduled Procedures Name Priority Associated Diagnoses Date/Ti [...] Date/Time Associated Diagnosis Comments COVID-19 PCR Routine 03/26/2020 2:29 PM EST COVID-19 ruled out documented in this encounter Results * COVID-19 PCR (03/26/2020 2:29 PM EST) SARS-CoV-2 RNA Not Detected Not Detected [facility] Comment: This result should be [...] diagnosis of COVID-19 is performed using the [employer] m SARS-CoV-2 Assay as authorized by the FDA Emergency Use Authorization (EUA). This EUA assay is intended for In-vitro Diagnostic (IVD) use with respiratory specimens such as nasopharyngeal swabs collected from individuals during the acute phase of infection. This assay is performed based on the instructions for use provided by [employer] and additional guidance provided by CDC and FDA. Testing is performed in the [facility] within the Department of Pathology and Laboratory Medicine at [facility], certified under the Clinical Laboratory Improvement Amendments of 1988 (CLIA), 42 U.S.C. 263a, to perform high complexity tests. Assay performance has been verified according to clinical laboratory regulatory requirements for use with specimens collected from individuals suspected of COVID-19. Test results are provided above. A result of ? Not Detected? indicates that the viral RNA target is [...] be considered in the context of a patient? s recent exposures and the presence of clinical signs and symptoms consistent with COVID-19. A result of ? Detected? indicates that RNA from SARS-CoV-2 was detected and the patient is infected. As required or requested by public health authorities, positive specimens may be sent for additional testing. Positive and negative predictive values for this test are highly dependent on disease prevalence. A result of ? Invalid? indicates that neither the viral RNA targets nor the internal control target was detected. An invalid result suggests the presence of inhibitors. Recollection and re-testing is recommended in the case of an invalid result. CDC COVID-19 criteria for testing on human specimens and clinical management guidance information are available at the CDC Coronavirus Disease 2019 (COVID-19) webpage under ? Information for Healthcare Professionals? (https://www.cdc.gov/coronavirus/2019-ncov/hcp/index.html) Additional information about this and other EUA tests can be found in provider and patient fact sheets at the following FDA website: https://www.fda.gov/medical-devices/jeyvdvgqxfh-ljdivto-0591-qtnna-23-hbbczpkkf- use-a zmriohxgvgrbh-vbgtrkt-ovxzcht/wdsws-xfmspbglpae-zamo SARS-CoV-2 RNA Source [employer] Swab [facility] Nasopharyngeal swab (specimen) 03/26/2020 2:29 PM EST 03/26/2020 2:29 PM EST Comment:Symptoms->Asymptomat ic Narrative Resulting Agency Comment Spec In Lab Maykel Jacobson MD MOLECULAR ORDERABLES [facility] [place] [address] documented in this encounter Visit Diagnoses Diagnosis COVID-19 ruled out Saphenous neuralgia, right documented in this encounter Care Teams Architectural Designer Relationship Specialty Start Date End Date Bob Day MD [address] [place] [address] PCP - General Family Medicine 01/18/18 07/26/20 documented as of this encounter
--- OUTSIDE RECORDS SUMMARY | 2024-04-05 16:29 | XMS_ITS | Encounter Summary ---
Author Organization [facility] Address [facility] [place] [address] Care Team Providers Care Corrections Sergeant Name Role Phone Bob Day MD Primary Care Provider [phone] [phone] Reason for Visit * Reason Comments Left Knee Pain CASE REQ 03/19/20 LEF T TKA Encounter Details Date Type Department Care Team (Latest Contact Info) Description 02/21/2020 9:40 AM EDT Office [place] [address] Maykel Jacobson MD [facility] [place] [address] Primary osteoarthritis of left knee Social History [...] Sign Reading Time Taken Comments Blood Pressure 127/70 02/21/2020 11:15 AM EDT Pulse 51 02/21/2020 11:15 AM EDT Temperature - - Respiratory Rate - - Oxygen Saturation 99% 02/21/2020 11:15 AM EDT Inhaled Oxygen Concentration - - Weight 102.1 kg (225 lb) 02/21/2020 11:15 AM EDT Height 152.4 cm (5') 02/21/2020 11:15 AM EDT Body Mass Index 43.94 02/21/2020 11:15 AM EDT documented in this encounter Progress Notes * Maykel Jacobson MD - 02/21/2020 9:40 AM EDT Arthroplasty History/Previous Orthopaedic Surgery: 1. Right medial unicompartmental knee replacement (likely cemented mobile beraing [place]) [facility] 2011 This note is recorded by Bri Hernandez acting as a scribe for Dr. Stephanie Jacobson. PREOPERATIVE VISIT Interval History: Etelvina Cuadra is a pleasant 59 y.o. year old female being seen today to discuss a left total knee replacement. Her history was once again discussed and is outlined in a previous note. They have reviewed their options and at this point are expressing a desire to proceed with surgery. Physical Exam: Exam is previously documented in a note and is essentially unchanged. Knee Exam: Range of motion 5-100o. Inspection of her skin on the operative [...] BMI of 45.0-49.9, adult E66.01, Z68.42 ??? Chronic pain of left knee M25.562, G89.29 ??? Presence of intrathecal pump Z97.8 ??? Anxiety and depression F41.9, F32.9 ??? HLD (hyperlipidemia) E78.5 VITALS: BP Readings from Last 1 Encounters: 02/21/20 127/70 Pulse Readings from Last 1 Encounters: 02/21/20 51 Height: 152.4 cm (5') Weight: 102.1 kg (225 lb) Body mass index is 43.94 kg/m??. Relevant Lab Studies Lab Results Component Value Date WBC 7.2 02/21/2020 HGB 12.1 02/21/2020 HCT 38.1 02/21/2020 PLATELET 361 (H) 02/21/2020 CREATININE 0.79 02/21/2020 BUN 13 02/21/2020 NA 140 02/21/2020 K 4.1 02/21/2020 INR 1.0 02/21/2020 No results for input(s): HA1C in the last 7068 hours. No results for input(s): ALBUMIN in the last 168 hours. Estimated Creatinine Clearance: 83.4 mL/min (based on SCr of 0.79 mg/dL). TJA Clotting and Bleeding Assessment Genetic predisposition or history of DVT or PE: No Hypercoaguable state?: No History of bleeding disorder?: No GI bleed or history of hemorrhagic stroke within the past 2 years: No Patient on lifelong anticoagulant for other reasons: Other, see comment(Preventative) Discharge anticoagulation plan: PEPPER Infection Prevention Patient demonstrated appropriate skin integrity/infection knowledge level after instructions provided: Yes Patient demonstrated appropriate dental prophylaxis knowledge level after instructions provided: Yes Patient demonstrated appropriate understanding of chlorhexideine wash and mupirocin ointment: Yes General Assessment Total joint preparedness for surgery: 1:1 Patient understands when to call the office pre-op and post-op: Verbalizes understanding Assistive device(s) used pre-op: Straight cane Patient currently on narcotics: Yes Patient has narcotic agreement signed: Yes (see comment for prescriber information)(Dr. Day for Oxycodone & Dr. Enriquez for Morphine Pump) Assessment and Plan: This is a pleasant 59 y.o. year-old female who presents for a preoperative appointment today for consideration of a left total knee replacement. We had a discussion regarding the risks [...] a chronic opioid agreement signed with Dr. Bob Day MD, and post operative pain management plan has been discussed with the patient and prescriber. Dr Day would like orthopedics to manage the patient's pain for the first month but also stated that patient is seeing pain here at and they feel that it is safer for the patient if ortho and pain management coordinate care for patient's pain at this time. The Acute Opioid Therapy Informed Consent form has been completed and sent to medical records for scanning to chart. No flowsheet data found. Opioid PDMP 02/21/2020 06/24/2018 [place] PDMP Query Date 02/21/2020 07/15/2018 [place] PDMP Query Date 02/21/2020 07/15/2018 [place] PDMP Query Date 02/21/2020 07/15/2018 In addition to this medication, [...] where referrals are placed patient lives in [place], no preference on VNA. Prep for Surgery Advance Directive: Has one [...] barriers and challenges: None at this time The patient prefers two-wheeled walker to help with post-operative ambulation. A DME order has beenplaced. Recommendations from Dr. Siddiqui: Patient instructions: Take Synthroid, citalopram, oxycodone the morning of surgery. Bring albuteroland Synthroid to surgery. ?? RECOMMENDATION: Consult APS for perioperative management with intrathecal pump, chronic opiate therapy. Continue citalopram, Synthroid (may have own), albuterol, oxycodone, calcium with D, MVI with minerals and Miralax Resume fenofibrate 48 hours after surgery. ? Is this patient a candidate for expedited recovery after total joint replacement no BMI>40, RAPT is 12/20 implying probable discharge home with support after hospital stay. Post operative orthopaedic anti-coagulation plan: ALLISON Study Chronic anti-coagulation: yes, preventative Does patient have metal allergy? No Expedited Discharge Candidate?: NO We discussed using Celebrex while in house. Upon discharge we will give the patient Naprosyn to take for 6 weeks after surgery for post-operative pain management. Any remaining questions were solicited from the patient and answered. Ms. Cuadra wishes to proceed accordingly and informed consent was subsequently obtained for a left total knee replacement. I have personally evaluated the patient and agree with the above note as recorded by Bri Hernandez MD 02/22/2020 documented in this encounter Plan of Treatment Upcoming Encounters Date Type Department Care Team (Latest Contact Info) Description 04/06/2024 11:30 AM EST Hospital Encounter [place] [address] Cadence Eric MD [facility] [place] [address] 04/06/2024 11:30 AM EST - 04/06/2024 12:50 PM EST Surgery [place] [address] Cadence Eric MD [facility] [place] [address] IMPLANT NEUROSTIMULATOR ELECTRODES, PERIPHERAL NERVE (WRVU 5.76) 04/14/2024 2:30 PM EST Office Visit [facility] [place] [phone] Cadence Eric MD [facility] [place] [address] Scheduled Procedures Name Priority Associated Diagnoses Date/Ti [...] right documented in this encounter Care Teams Corrections Sergeant Relationship Specialty Start Date End Date Bob Day MD [address] [place] [id number] PCP - General Family Medicine 01/18/18 07/26/20 documented as of this encounter
--- OUTSIDE RECORDS SUMMARY | 2024-04-05 16:29 | XMS_ITS | Encounter Summary ---
Author Organization [facility] Address [facility] [place] [address] Care Team Providers Care Dry Man Name Role Phone Bob Day MD Primary Care Provider [phone] Reason for Visit * Auth/Cert Specialty Diagnoses / Procedures Referred By Cindy t Referred To Contact Diagnoses Pump Procedures PRO ELECTRONIC PUMP ANALYSIS W REPROGRAMMING AND REFILL BY MD/ASSOCIATE PROFESSOR OF PATHOLOGY ELECTRONIC HERNANDEZ PROG., PUMP- DRUG INFUS; W/ REPROGRAM & REFILL REQ (WRVU 0.9) Referral ID Status Reason Start Date Expiration Date Visits Re quested Visits Authorized [id number] 1 1 Encounter Details Date Type Department Care Team (Late st Contact Info) Description 03/12/2020 1:45 PM EST - 03/12/2020 3:00 PM EST [place] [address] Karl Becker MD [facility] [place] [address] ELECTRONIC HERNANDEZ PROG., PUMP- DRUG INFUS; W/ [...] Sign Reading Time Taken Comments Blood Pressure 127/69 03/12/2020 2:00 PM EST Pulse - - Temperature - - Respiratory Rate 16 03/12/2020 2:00 PM EST Oxygen Saturation 100% 03/12/2020 2:00 PM EST Inhaled Oxygen Concentration - - Weight 99.8 kg (220 lb) 03/12/2020 1:41 PM EST Height 152.4 cm (5') 03/12/2020 1:41 PM EST Body Mass Index 42.97 03/12/2020 1:41 PM EST documented in this encounter Medications at Time of Discharge Medication Sig Dispensed Refills Start Date End Date calcium carbonate-vitamin D3 (Os-Nico 500 + D3) 500mg (1,250mg) -600 unit Tablet Take 1 tablet by mouth Daily. 01/16/2016 Bifidobacterium infantis (ALIGN) 4 mg Capsule Take by mouth daily. 2 gummies daily=4MG NARCAN 4 mg/actuation [place], Non-Aerosol instill 1 spray in 1 NOSTRIL if needed for opioid overdose may re... (REFER TO PRESCRIPTION NOTES). 0 12/08/2018 multivitamin with minerals Tablet Take 1 tablet by mouth daily. morphine sulfate/D5W (MORPHINE IN D5W) 1 mg/mL Prefilled Pump [place] Inject as directed. Has intrathecal pump with [...] the lungs Every 4 hours. 12/06/2018 09/04/2021 oxyCODONE (ROXICODONE) 10 mg Tablet Take 1 tablet by mouth 3 times daily. 84 tablet 02/28/2020 03/27/2020 PROAIR HFA 90 mcg/actuation HFA Aerosol Inhaler [...] 03/19/2010 07/25/2020 documented as of this encounter H&P Notes * Wanda Arredondo MD - 03/11/2020 7:09 PM EST Patient Name: Etelvina Cuadra Patient Age: 59 y.o. Birthdate: 1960 Admit date: (Not on file) Attending Physician: Karl Becker MD PREPROCEDURE HISTORY AND PHYSICAL Date of Visit: March 11, 2020 Chief Complaint: LOCATION: Chronic back pain HPI: Subjective ?? Etelvina Cuadra is a 58 y.o. female who presents today for intrathecal pump refill under ultrasound guidance with a diagnosis of post laminectomy syndrome with symptoms of post laminectomy syndrome. Etelvina Cuadra is a 59 y.o. female who presents today for PROCEDURE: Intrathecal pump refill under ultrasound guidance. Last refilled 12/05/19. She is scheduled for right TKA on 03/29/20. The history is obtained from the patient, and I have reviewed medical records provided by the referring physician and located in the electronic medical record to fill in gaps in the patient's recollection of events, treatments and outcomes. The patient denies any recent NSAID or anticoagulation. PAIN LEVEL AT REST 10 (right knee) PAST MEDICAL HISTORY: Past Medical History: Diagnosis [...] hernia, with obstruction, without gangrene 06/24/2018 ??? longterm current use of opiate analgesic Oxycodone 10 [...] WITH BX performed by NIKKI MAYORGA at [facility] ENDOSCOPY ??? PRO COLONOSCOPY, DIAGNOSTIC 09/23/2011 COLONOSCOPY, DIAGNOSTIC performed by NIKKI MAYORGA at [facility] ENDOSCOPY ??? PRO ELECTRONIC PUMP ANALYSIS W REPROGRAMMING AND REFILL BY /NAHID N/A 03/30/2019 ELECTRONIC HERNANDEZ PROG., PUMP- DRUG INFUS; W/ REPROGRAM & REFILL REJohn DAWSON (WRVU 0.9) performed by Karl Becker MD at [facility] PAIN MGMT MSO ??? PRO ELECTRONIC PUMP ANALYSIS W REPROGRAMMING AND REFILL BY /NAHID N/A 12/05/2019 ELECTRONIC HERNANDEZ PROG., PUMP- DRUG INFUS; W/ REPROGRAM & REFILL REQ (WRVU 0.9) performed by Karl Becker MD at [facility] PAIN MGMT MSO ??? PRO IMP SPINAL CANAL CATH Midline 03/23/2019 IMPLANT, REV OR REP TUNNELED INTRATHACAL OR EPIDURAL CATHETER (WRVU 6.05) performed by Karl Becker MD at [facility] MAIN OR ??? PRO INSERT/ REPLACE INFUSN PUMP, PROGRAMMABLE Right 03/23/2019 IMPLANT OR REPLACE PROG. PUMP-DRUG INFUSION (WRVU 5.6) performed by Melani Darden MD at [facility] ADEEL ??? PRO LAP, CHOLECYSTECTOMY/GRAPH N/A 10/18/2016 LAPAROSCOPIC CHOLECYSTECTOMY WITH CHOLANGIOGRAM (WRVU 11.47) performed by Tasia Umaña MD at [facility] MAIN OR ??? PRO LAP, VENTRAL HERNIA REPAIR, INCARCERATED N/A 07/12/2018 LAPAROSCOPIC HERNIA, VENTRAL, INCARCERATED, W-WO MESH (WRVU 14.94) performed by Izzy Blanco MD at [facility] MAIN OR ALLERGIES: Peanut, Peanut oil, Rice, Wheat, Wheat bran, Wheat flour, Wheat germ oil, Wheat starch, Canine protein containing products, Hazelnut, Hydrocodone, Hydrocodone- acetaminophen, Hydrocodone-ibuprofen, Rofecoxib, Tetracycline, Tetracyclines, and Wool MEDICATIONS: No current facility-administered medications on file prior to encounter. Current Outpatient Medications on File Prior to Encounter Medication Sig Dispense Refill ??? oxyCODONE (ROXICODONE) 10 mg Tablet Take 1 tablet by mouth 3 times daily. 84 tablet 0 ??? calcium carbonate-vitamin D3 (Os-Nico 500 + D3) 500mg (1,250mg) -600 unit Tablet Take by mouth Daily. ??? Bifidobacterium infantis (ALIGN) 4 mg Capsule Take by mouth daily. ??? PROAIR HFA 90 mcg/actuation HFA Aerosol Inhaler inhale 1 to 2 puffs by mouth every 4 to 6 hoursif needed for wheezing 0 ??? NARCAN 4 mg/actuation [place], Non-Aerosol instill 1 spray in 1 NOSTRIL if needed for opioid overdose may re... (REFER TO PRESCRIPTION NOTES). 0 ??? citalopram (CeleXA) 20 mg Tablet 20 mg daily. 0 ??? multivitamin with minerals Tablet Take 1 tablet by mouth daily. ??? morphine 100 % Powd 10 mg/mL by Intrathecal route continuous. 42 mL 0 ??? morphine sulfate/D5W (MORPHINE IN D5W) 1 mg/mL Prefilled Pump [place] Inject as directed. ??? polyethylene glycol (MIRALAX) 17 gram Powder in Packet Take by mouth as needed. ??? EPINEPHrine 1 mg/mL Kit Inject as directed as needed. ??? fenofibrate (TRIGLIDE) 160 mg Tablet Take 160 mg by mouth nightly. ??? levothyroxine (SYNTHROID) 100 mcg tablet 100 MCG = 1 Tablet(s), PO, Once daily FAMILY HISTORY: Family History Problem Relation Age of Onset ??? Coronary Artery Disease Father ??? Breast Cancer Maternal Grandmother ??? Anesthesia Reaction Neg Hx SOCIAL HISTORY: Social History Socioeconomic History ??? Marital status: Spouse name: Not on file ??? Number of children: Not on file ??? Years of education: Not on file ??? Highest education level: Not on file Occupational History ??? Not on file Social Needs ??? Financial resource strain: Not on file ??? Food insecurity Worry: Not on file Inability: Not on file ??? Transportation needs Medical: Not on file Non-medical: Not on file Tobacco Use ??? Smoking status: Former Smoker Packs/day: 0.25 Types: Cigarettes Quit date: 09/23/1991 Years since quittin.4 ??? Smokeless tobacco: Never Used Substance and Sexual Activity ??? Alcohol use: No ??? Drug use: No ??? Sexual activity: Not on file Lifestyle ??? Physical activity Days per week: Not on file Minutes per session: Not on file ??? Stress: Not on file Relationships ??? Social connections Talks on phone: Not on file Gets together: Not on file Attends rastafarian service: Not on file Active member of club or organization: Not on file Attends meetings of clubs or organizations: Not on file Relationship status: Not on file ??? Intimate partner violence Fear of current or ex partner: Not on file Emotionally abused: Not on file Physically abused: Not on file Forced sexual activity: Not on file Other Topics Concern ??? Not on file Social History Narrative ??? Not on file ROS: Pt denies recent fever, chills, infection, wounds, hospitalizations, ED visits, use of antibiotics.Otherwise, as described above. PHYSICAL EXAM: There were no vitals taken for this visit. Physical Exam Constitutional: Pt oriented to person, place, and time. Appears well-developed and well-nourished. No distress. HENT: Head: Normocephalic and atraumatic. Pulmonary/Chest: Effort normal. Neurological: Alert and oriented to person, place, and time. No cranial nerve deficit. Skin: Skin is warm and dry. No rash noted. Not diaphoretic. Psychiatric: Normal mood and affect. RADIOLOGIC DATA: Imaging Reviewed LABS/DX RESULTS: Labs reviewed and no new labs pertinent to today's procedure ASSESSMENT: Assessment 1. Postlaminectomy syndrome of lumbar region 2. Presence of intrathecal pump PLAN: Proceed with procedure as planned intrathecal pump refill under ultrasound guidance Wanda Arredondo MD Pain Management Fellow [address] [address] / [facility] documented in this encounter Miscellaneous Notes * Op Note - Wanda Arredondo MD - 03/11/2020 2:54 PM EST Pain Management Operative Note Patient Name: Etelvina Cuadra : [id number] MR#: [id number] Case Date: 03/12/2020 Surgeon: Surgeon(s) and Role: * Karl Becker MD - Primary Wanda Arredondo MD - Fellow France Muniz MD - Fellow Present on Admission: ??? Postlaminectomy syndrome of lumbar region ??? Presence of intrathecal pump Postoperative diagnosis: same Procedure(s) (LRB): ELECTRONIC HERNANDEZ PROG., PUMP- DRUG INFUS; W/ REPROGRAM & REFILL MILAGRO DAWSON (WRVU 0.9) (N/A) INTRATHECAL PUMP REFILL PROCEDURE NOTE WITH REPROGRAMMING Primary National Flatbed Truck Driver: Karl Becker MD Patient Advocate: Wanda Arredondo MD Reason for Reprogramming: Interrogation to confirm no pump log errors and to refill pump Diagnosis: Post-laminectomy syndrome Functional improvement with the pump: Able to complete ADL's with less pain VAS today: 9/10 right knee pain (patient is scheduled for right TKA on 03/29/20) Side effects from pump: Minor pain at pump site at scar location Changes since last refill: Will keep PTM lockout the same at 3hr with same 5 total doses. Prescription Drug Monitoring Program (PDMP) data: Negative for inconsistencies. Medication contract signed? Yes, . Physical Examination: Constitutional: Her vital signs were normal and reviewed with the patient. She is in no acute distress. Respiratory: There is no respiratory distress Cardiovascular: Normal heart rate Skin (over the pump): The skin was grossly normal to the area of pain Eyes: EOMI, no scleral icterus Psychological: Normal Abdominal: RLQ pain to palpation of scar overlying pump. Pre-Refill Telemetry Programming Reading: Drugs/Concentrations: Morphine 10mg/mL - Preservative Free - Daily Dose: 2mg with mPTM 0.2mg q3hr PRN 5/day Brand/Compound: Compound. Post-Refill Telemetry Programming Reading: Drugs/Concentrations: Morphine 10mg/mL - Preservative Free - Daily Dose: 2mg with mPTM 0.2mg q3hr PRN 5/day Brand/Compound: Compound. Pump Capacity: 40 mL Computer predicted residual volume in pump: 12.5 mL Actual [place] volume: 12.5 mL Medication or Dose Changes: None Is dose change >30%? No Is concentration of drug different? No Empty syringe concentration verified by checker cashier: yes If concentration of drug is different, has a bridge bolus been programmed? n/a. Has any program been used other than simple continuous or bridge bolus and simple continuous? no Infusion Mode: simple continuous. New Alarm Date: 07/17/20 PROCEDURE: Risks and expected side effects were reviewed with patient and her voiced concerns addressed. The printed consent form was signed and witnessed. The following information was verified: ?? Patient Name on RX: yes ?? Drug Name on RX:yes ?? Drug concentration on syringe containing pump refill medication: yes Fluoroscopy was used to verify the pumps position. The pump appears to be in the appropriate location and oriented appropriately. The pump was accessed via telemetry and the computer predicted residual volume was noted as per above. Then Chlorhexidine prep over the pump refill site was performed. Sterile drapes were applied as provided with the ReelBigtronic refill kit. Under ultrasound guidance, a 22 [...] instilled into the pump according to the ccnp's directions without difficulty. There was no evidence [...] Pain Management Center. Follow-up with Dr. Becker Procedure was performed under direct supervision of my attending physician, Dr. Becker. Wanda Arredondo MD Pain Management Fellow [address] [phone] / [facility] Associated attestation - Karl Becker MD - 03/12/2020 4:05 PM EST Attestation: Case Date: 03/12/2020 I was present and I participated during the entire procedure (does not need to include opening and closing). KARL BECKER MD 03/12/2020 documented in this encounter Plan of Treatment Upcoming Encounters Date Type Department Care Team (Latest Contact Info) Description 04/06/2024 11:30 AM EST Hospital Encounter Outpatient [place] [address] Cadence Eric MD [facility] [place] [address] 04/06/2024 11:30 AM EST - 04/06/2024 12:50 PM EST Surgery Outpatient [place] [address] Cadence Eric MD [facility] [place] [address] IMPLANT NEUROSTIMULATOR ELECTRODES, PERIPHERAL NERVE (WRVU 5.76) 04/14/2024 2:30 PM EST Office Visit [place] [phone] Cadence Eric MD [facility] [place] [address] Pending Results Name Type Priority Associated Diagnoses Date /Time Film Library- Storage Only pain Clinic C-Arm Imaging Storage Only Routine Pain 03/12/2020 1:46 PM EST Scheduled Orders Name Type Priority Associated Diagnoses Orde r Schedule Film Library- Storage Only pain Clinic C-Arm Imaging Storage Only Routine Pain Once PRN (for Radiant use) for 1 Occurrences starting 03/12/2020 until 03/12/2020 Scheduled Procedures Name Priority Associated Diagnoses Date/Ti [...] Priority Date/Time Associated Diagnosis Comments Anal Inf Window Trimmer Apprentice W ReproRefil([id number]) 03/12/2020 1:50 PM EST Pump documented in this encounter Visit Diagnoses Not on filedocumented in this encounter Care Teams Dry Man Relationship Specialty Start Date End Date Bob Day MD [address] [place] [address] PCP - General Family Medicine 01/18/18 07/26/20 documented as of this encounter
--- OUTSIDE RECORDS SUMMARY | 2024-04-05 16:29 | XMS_ITS | Encounter Summary ---
Author Organization [facility] Address [facility] [place] [address] Care Team Providers Care Developer Advisor Name Role Phone Bob Day MD Primary Care Provider [phone] Encounter Details Date Type Department Care Team (Late st Contact Info) Description 03/15/2020 External Results [facility] [place] [phone] Karl Becker MD [facility] [place] [address] Social History Tobacco Use Types Packs/Day Years [...] AM EST Hospital Encounter Outpatient [place] [phone] Cadence Eric MD [facility] [place] [address] 04/06/2024 11:30 AM EST - 04/06/2024 12:50 PM EST Surgery [facility]patient [place] [address] Cadence Eric MD [facility] [place] [address] IMPLANT NEUROSTIMULATOR ELECTRODES, PERIPHERAL NERVE (WRVU 5.76) 04/14/2024 2:30 PM EST Office Visit [facility] [place] [address] Cadence Eric MD [facility] [place] [address] Scheduled Procedures Name Priority Associated Diagnoses Date/Ti [...] Associated Diagnosis Comments INTRATHECAL PUMP REFILL Routine 03/12/2020 documented in this encounter Results * INTRATHECAL PUMP REFILL (03/12/2020) Karl Becker MD PROCEDURE/MINOR SURG ICAL ORDERABLES documented in this encounter Visit Diagnoses Not on filedocumented in this encounter Care Teams Developer Advisor Relationship Specialty Start Date End Date Bob Day MD [address] [place] [address] PCP - General Family Medicine 01/18/18 07/26/20 documented as of this encounter
--- OUTSIDE RECORDS SUMMARY | 2024-04-05 16:29 | XMS_ITS | Encounter Summary ---
Author Organization [facility] [place] [address] Care Team Providers Care Stores Clerk Name Role Phone Bob Day MD Primary Care Provider [phone] Encounter Details Date Type Department Care Team (Late st Contact Info) Description 02/22/2020 [place] [phone] Steph Howell RN Social History Tobacco Use Types Packs/Day [...] encounter Miscellaneous Notes * Telephone Encounter - Steph Howell RN - 02/22/2020 12:39 PM EDT Dona alvarado nurse from the [facility] called and stated that they would like orthopedics to manage the patient's pain for the first month but also stated that patient is seeing pain here at and they feel that it is safer for the patient if ortho and pain management coordinate care for patient's pain at this time. Automobile Designer will forward to provider. documented in this encounter Plan of Treatment Upcoming Encounters Date Type Department Care Team (Latest Contact Info) Description 04/06/2024 11:30 AM EST Hospital Encounter Outpatient [place] [address] Cadence Eric MD [facility] [place] [address] 04/06/2024 11:30 AM EST - 04/06/2024 12:50 PM EST Surgery Outpatient [place] [address] Cadence Eric MD [facility] [place] [address] IMPLANT NEUROSTIMULATOR ELECTRODES, PERIPHERAL NERVE (WRVU 5.76) 04/14/2024 2:30 PM EST Office Visit [place] [address] Cadence Eric MD [facility] [place] [address] Scheduled Procedures Name Priority Associated Diagnoses Date/Ti [...] on filedocumented in this encounter Care Teams Stores Clerk Relationship Specialty Start Date End Date Bob Day MD [address] [place] [address] PCP - General Family Medicine 01/18/18 07/26/20 documented as of this encounter
--- OUTSIDE RECORDS SUMMARY | 2024-04-05 16:29 | XMS_ITS | Encounter Summary ---
Author Organization [facility] Address [facility] [place] [address] Care Team Providers Care Manager Operational Name Role Phone Bob Day MD Primary Care Provider [phone] Encounter Details Date Type Department Care Team (Late st Contact Info) Description 02/09/2020 Abstract Radiology and Cardiology Results [address] [place] [address] [facility] Conversion, Results Provider, Social History Tobacco Use Types Packs/Day [...] AM EST Hospital Encounter Outpatient [place] [address] Cadence Eric MD [facility] [place] [address] 04/06/2024 11:30 AM EST - 04/06/2024 12:50 PM EST Surgery [place]patient [place] [phone] Cadence Eric MD [facility] [place] [address] IMPLANT NEUROSTIMULATOR ELECTRODES, PERIPHERAL NERVE (WRVU 5.76) 04/14/2024 2:30 PM EST Office Visit Pain and Spine Center at [facility] [place] [place] [address] Cadence Eric MD [facility] [place] [address] Scheduled Procedures Name Priority Associated Diagnoses Date/Ti [...] Procedure Name Priority Date/Time Associated Diagnosis Comments TSH Routine 02/09/2020 12:35 PM EDT documented in this encounter Results * (ABNORMAL) TSH (02/09/2020 12:35 PM EDT) Thyroid Stimulating Hormone 0.592(Ext ernal Lab) 0.270 - 4.200 uIU/mL NLH CONVERSION 02/09/2020 12:3 5 PM EDT Results Provider Nlh Conversion MD OCTAVIO GODINEZ ORDERABLES NLH CONVERSION documented in this encounter Visit Diagnoses Not on filedocumented in this encounter Care Teams Manager Operational Relationship Specialty Start Date End Date Bob Day MD [address] [place] [address] PCP - General Family Medicine 01/18/18 07/26/20 documented as of this encounter
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
--- OUTSIDE RECORDS SUMMARY | 2024-04-05 16:29 | XMS_ITS | Encounter Summary ---
Author Organization [facility] Address [facility] Alyssa [facility] [place] [address] Care Team Providers Care Box Closing Machine Operator Name Role Phone Bob Day MD Primary Care Provider [phone] [phone] Encounter Details Date Type Department Care Team (Late st Contact Info) Description 02/27/2020 Telephone [place] [address] Karl Becker MD [facility] [place] [address] Social History Tobacco Use Types Packs/Day Years [...] encounter Miscellaneous Notes * Telephone Encounter - Karl Bekcer MD - 02/27/2020 10:46 AM EDT I spoke to the patient. She had previous surgeries and was able to do fine with just increasing heroral pain medication and continue on the same dose of the intrathecal medication which included chely needed dosing through the PTM bolus device she has. I think that is reasonable and I assured herthat if needed we could see her when she is in the hospital for her total knee arthroplasty. documented in this encounter Plan of Treatment Upcoming Encounters Date Type Department Care Team (Latest Contact Info) Description 04/06/2024 11:30 AM EST Hospital Encounter Outpatient [place] [address] Cadence Eric MD [facility] [place] [address] 04/06/2024 11:30 AM EST - 04/06/2024 12:50 PM EST Surgery Outpatient [place] [phone] Cadence Eric MD [facility] [address] IMPLANT NEUROSTIMULATOR ELECTRODES, PERIPHERAL NERVE (WRVU 5.76) 04/14/2024 2:30 PM EST Office Visit [facility] [place] [address] Cadence Eric MD [facility] [place] [address] Scheduled Procedures Name Priority Associated Diagnoses Date/Ti [...] on filedocumented in this encounter Care Teams Box Closing Machine Operator Relationship Specialty Start Date End Date Bob Day MD [address] [place] [address] PCP - General Family Medicine 01/18/18 07/26/20 documented as of this encounter
--- OUTSIDE RECORDS SUMMARY | 2024-04-05 16:29 | XMS_ITS | Encounter Summary ---
Author Organization [facility] Address [facility] [place] [address] Care Team Providers Care Natural Gas Inspector Name Role Phone Bob Day MD Primary Care Provider [phone] [phone] Reason for Visit * Auth/Cert Specialty Diagnoses / Procedures Referred By Conttom t Referred To Contact Diagnoses Pump Procedures PRO ELECTRONIC PUMP ANALYSIS W REPROGRAMMING AND REFILL BY MD/PLEASURE CRAFT SAILOR ELECTRONIC HERNANDEZ PROG., PUMP- DRUG INFUS; W/ REPROGRAM & REFILL REQ (WRVU 0.9) Referral ID Status Reason Start Date Expiration Date Visits Re quested Visits Authorized [id number] 1 1 Encounter Details Date Type Department Care Team (Latest Contact Info) Description 03/12/2020 1:32 PM EST - 03/12/2020 2:26 PM [facility] Hospital En[place] [address] Karl Becker MD [facility] [place] [address] Postlaminectomy syndrome of lumbar region; Presence of intrathecal pump; Pain Discharge Disposition: Home Social History Tobacco Use [...] daily. 2 gummies daily=4MG NARCAN 4 mg/actuation [place], Non-Aerosol instill 1 spray in 1 NOSTRIL if needed for opioid overdose may re... (REFER TO PRESCRIPTION NOTES). 0 12/08/2018 multivitamin with minerals Tablet Take 1 tablet by mouth daily. morphine sulfate/D5W (MORPHINE IN D5W) 1 mg/mL Prefilled Pump Nampa Inject as directed. Has intrathecal pump with [...] WITH BX performed by NIKKI MAYORGA at [facility] ENDOSCOPY ??? PRO COLONOSCOPY, DIAGNOSTIC 09/23/2011 COLONOSCOPY, DIAGNOSTIC performed by NIKKI MAYORGA at [facility] ENDOSCOPY ??? PRO ELECTRONIC PUMP ANALYSIS W REPROGRAMMING AND REFILL BY /NAHID N/A 03/30/2019 ELECTRONIC HERNANDEZ PROG., PUMP- DRUG INFUS; W/ REPROGRAM & REFILL REQ (WRVU 0.9) performed by Karl Becker MD at [facility] PAIN [facility] ??? PRO ELECTRONIC PUMP ANALYSIS W REPROGRAMMING AND REFILL BY /NAHID N/A 12/05/2019 ELECTRONIC HERNANDEZ PROG., PUMP- DRUG INFUS; W/ REPROGRAM & REFILL REQ (WRVU 0.9) performed by Karl Becker MD at [facility] PAIN [facility] ??? PRO IMP SPINAL CANAL CATH Midline 03/23/2019 IMPLANT, REV OR REP TUNNELED INTRATHACAL OR EPIDURAL CATHETER (WRVU 6.05) performed by Karl Becker MD at [facility] MAIN OR ??? PRO INSERT/ REPLACE INFUSN PUMP, PROGRAMMABLE Right 03/23/2019 IMPLANT OR REPLACE PROG. PUMP-DRUG INFUSION (WRVU 5.6) performed by Melani Darden MD at [facility] ADEEL ??? PRO LAP, CHOLECYSTECTOMY/GRAPH N/A 10/18/2016 LAPAROSCOPIC CHOLECYSTECTOMY WITH CHOLANGIOGRAM (WRVU 11.47) performed by Tasia Umaña MD at [facility] MAIN OR ??? PRO LAP, VENTRAL HERNIA REPAIR, INCARCERATED N/A 07/12/2018 LAPAROSCOPIC HERNIA, VENTRAL, INCARCERATED, W-WO MESH (WRVU 14.94) performed by Izzy Blanco MD at [facility] MAIN OR ALLERGIES: Peanut, Peanut oil, [...] for wheezing 0 ??? NARCAN 4 mg/actuation [place], Non-Aerosol instill 1 spray in 1 NOSTRIL [...] (MORPHINE IN D5W) 1 mg/mL Prefilled Pump Nampa Inject as directed. ??? polyethylene glycol (MIRALAX) [...] file Gets together: Not on file Attends nondenominational service: Not on file Active member of [...] guidance Wanda Arredondo MD Pain Management Fellow [address] [address] / [facility] documented in this encounter Miscellaneous Notes * Op Note - Wanda Arredondo MD - 03/11/2020 2:54 PM EST Pain Management Operative Note Patient Name: Etelvina Cuadra : [id number] MR#: [id number] Case Date: 03/12/2020 Surgeon: Surgeon(s) and Role: [...] PUMP REFILL PROCEDURE NOTE WITH REPROGRAMMING Primary Duct Installer: Karl Becker MD Fiberglass Quality Technician: Wanda Arredondo MD Reason for Reprogramming: Interrogation [...] residual volume in pump: 12.5 mL Actual Nampa volume: 12.5 mL Medication or Dose Changes: None Is dose change >30%? No Is concentration of drug different? No Empty syringe concentration verified by weight checker: yes If concentration of drug is [...] drapes were applied as provided with the [employer] refill kit. Under ultrasound guidance, a 22 [...] instilled into the pump according to the mechanical assembly's directions without difficulty. There was no evidence of over pressurization at the conclusion of the filling process. The Moares needle was withdrawn and a Band-Aid was [...] Becker. Wanda Arredondo MD Pain Management Fellow [address] [address] / [facility] Associated attestation - Karl Becker MD - [...] AM EST Hospital Encounter Outpatient [place] [address] Cadence Eric MD [facility] [place] [address] 04/06/2024 11:30 AM EST - 04/06/2024 12:50 PM EST Surgery Outpatient [place] [address] Cadence Eric MD [facility] [place] [address] IMPLANT NEUROSTIMULATOR ELECTRODES, PERIPHERAL NERVE (WRVU 5.76) 04/14/2024 2:30 PM EST Office Visit [facility] [place] [phone] Cadence Eric MD [facility] [place] [address] Pending Results Name Type Priority Associated Diagnoses [...] Priority Date/Time Associated Diagnosis Comments Anal Inf Rn Admit W ReproRefil([id number]) 03/12/2020 1:50 PM EST Pump documented in this encounter Visit Diagnoses Diagnosis Postlaminectomy syndrome of lumbar region Postlaminectomy syndrome, lumbar region Presence of intrathecal pump Pain Generalized pain Postlaminectomy syndrome of lumbar region Postlaminectomy syndrome, lumbar region Presence of intrathecal pump Saphenous neuralgia, right documented in this encounter Care Teams Natural Gas Inspector Relationship Specialty Start Date End Date Bob Day MD [address] [place] [address] PCP - General Family Medicine 01/18/18 07/26/20 documented as of this encounter
--- OUTSIDE RECORDS SUMMARY | 2024-04-05 16:29 | XMS_ITS | Encounter Summary ---
Author Organization [facility] Address [facility] [place] [address] Care Team Providers Care Supervisor Correspondence Section Name Role Phone Bob Day MD Primary Care Provider [phone] [phone] Encounter Details Date Type Department Care Team (Late st Contact Info) Description 12/08/2019 External Results [facility] [place] [phone] Karl Becker MD [facility] [place] [address] Social History Tobacco Use Types Packs/Day Years [...] AM EST Hospital Encounter [place]patient [place] [phone] Cadence Eric MD [facility] [place] [address] 04/06/2024 11:30 AM EST - 04/06/2024 12:50 PM EST Surgery [place]patient [place] [address] Cadence Eric MD [facility] [place] [address] IMPLANT NEUROSTIMULATOR ELECTRODES, PERIPHERAL NERVE (WRVU 5.76) 04/14/2024 2:30 PM EST Office Visit [facility] [place] [address] Cadence Eric MD [facility] [place] [address] Scheduled Procedures Name Priority Associated Diagnoses Date/Ti [...] Associated Diagnosis Comments INTRATHECAL PUMP REFILL Routine 12/05/2019 INTRATHECAL PUMP REFILL Routine 12/05/2019 INTRATHECAL PUMP REFILL Routine 12/05/2019 documented in this encounter Results * INTRATHECAL PUMP REFILL (12/05/2019) Karl Becker MD PROCEDURE/MINOR SURG ICAL ORDERABLES * INTRATHECAL PUMP REFILL (12/05/2019) Karl Becker MD PROCEDURE/MINOR SURG ICAL ORDERABLES * INTRATHECAL PUMP REFILL (12/05/2019) Karl Becker MD PROCEDURE/MINOR SURG ICAL ORDERABLES documented in this encounter Visit Diagnoses Not on filedocumented in this encounter Care Teams Supervisor Correspondence Section Relationship Specialty Start Date End Date Bob Day MD [address] [place] [address] PCP - General Family Medicine 01/18/18 07/26/20 documented as of this encounter
--- OUTSIDE RECORDS SUMMARY | 2024-04-05 16:29 | XMS_ITS | Encounter Summary ---
Author Organization [facility] [place] [address] Care Team Providers Care Sieve Grader Tender Name Role Phone Bob Day MD Primary Care Provider +1 [phone] Reason for Visit * Reason Onset Date Comments Medication Refill 02/27/2020 Encounter Details Date Type Department Care Team (Late st Contact Info) Description 02/27/2020 Refill Primary Care at [facility] [address] [place] [address] Bob Day MD [address] [place] [address] Social History Tobacco Use Types Packs/Day Years [...] [facility] Hospital Encounter Outpatient [place] [address] Cadecne Eric MD [facility] [place] [address] 04/06/2024 11:30 AM EST - 04/06/2024 12:50 PM EST Surgery Outpatient [place] [address] Cadence Eric MD [facility] [place] [address] IMPLANT NEUROSTIMULATOR ELECTRODES, PERIPHERAL NERVE (WRVU 5.76) 04/14/2024 2:30 PM EST Office Visit [place] [address] Cadence Eric MD [facility] [place] [address] Scheduled Procedures Name Priority Associated Diagnoses Date/Ti [...] on filedocumented in this encounter Care Teams Sieve Grader Tender Relationship Specialty Start Date End Date Bob Day MD [address] [place] [address] PCP - General Family Medicine 01/18/18 07/26/20 documented as of this encounter
--- OUTSIDE RECORDS SUMMARY | 2024-04-05 16:29 | XMS_ITS | Encounter Summary ---
Author Organization [facility] Address [facility] [place] [address] Care Team Providers Care Tie Layer Name Role Phone Bob Day MD Primary Care Provider [phone] [phone] Encounter Details Date Type Department Care Team (Latest Contact Info) Description 02/21/2020 12:00 PM EDT Laboratory [place] [phone] Preop examination; Primary osteoarthritis of left knee; Adult BMI 45.0-49.9 kg/sq m; Chronic prescription opiate use; Anemia, unspecified type; Morbid obesity; Chronic pain of left knee [...] AM EST Hospital Encounter [place] [phone] Cadence Eric MD [facility] [place] [address] 04/06/2024 11:30 AM EST - 04/06/2024 12:50 PM EST Surgery [place]patient [place] [address] Cadence Eric MD [facility] [place] [address] IMPLANT NEUROSTIMULATOR ELECTRODES, PERIPHERAL NERVE (WRVU 5.76) 04/14/2024 2:30 PM EST Office Visit [facility] [place] [address] Cadence Eric MD [facility] [place] [address] Scheduled Procedures Name Priority Associated Diagnoses Date/Ti [...] Procedure Name Priority Date/Time Associated Diagnosis Comments ABORH RECHECK STATUS Routine 02/21/2020 12:23 PM EDT HEMOGRAM Routine 02/21/2020 12:23 PM EDT Primary osteoarthritis of left knee Morbid obesity Chronic pain of left knee DIFFERENTIAL, AUTOMATED Routine 02/21/2020 12:23 PM EDT Primary osteoarthritis of left knee Morbid obesity Chronic pain of left knee HC ABO-MICROTITER Routine 02/21/2020 12: 23 PM EDT Primary osteoarthritis of left knee Morbid obesity Chronic pain of left knee HC IRON BINDING CAPACITY Routine 02/21/2020 12:23 PM EDT Preop examination Primary osteoarthritis of left knee Adult BMI 45.0-49.9 kg/sq m Chronic prescription opiate use Anemia, unspecified type ABO/RH TYPING Routine 02/21/2020 12:23 PM EDT Primary osteoarthritis of left knee Morbid obesity Chronic pain of left knee HC PARTIAL THROMBOPLASTIN TIME Routine 02/21/2020 12:23 PM EDT Primary osteoarthritis of left knee Morbid obesity Chronic pain of left knee HC PROTHROMBIN TIME Routine 02/21/2020 1 2:23 PM EDT Primary osteoarthritis of left knee Morbid obesity Chronic pain of left knee HC CBC,PLT & AUTO DIFF Routine 0 12:23 PM EDT Primary osteoarthritis of left knee Morbid obesity Chronic pain of left knee ANTIBODY SCREEN Routine 02/21/2020 12:23 PM EDT Primary osteoarthritis of left knee Morbid obesity Chronic pain of left knee HC FERRITIN, SERUM Routine 02/21/2020 12 :23 PM EDT Preop examination Primary osteoarthritis of left knee Adult BMI 45.0-49.9 kg/sq m Chronic prescription opiate use Anemia, unspecified type BASIC METABOLIC PANEL Routine 02/21/2020 12:23 PM EDT Primary osteoarthritis of left knee Morbid obesity Chronic pain of left knee documented in this encounter Results * ABORH Recheck Status (02/21/2020 12:23 PM EDT) Pathologist Lilly ABORH Type Recheck Completed [facility] Blood specimen (specimen) 02/21/2020 12:23 PM EDT 02/21/2020 12:25 PM EDT Narrative Resulting Agency Comment Spec In Lab Maykel Jacobson MD BLOOD BANK LAB ORDER ALLAN [facility] [place] [address] * Antibody screen (02/21/2020 12:23 PM EDT) Ab Screen Interp Negative [facility] Expires at 1156 on: 04/01/2020 [facility] Comment: Corrected from 03/22/20 0:00:00 EST [Unknown] on 03/13/20 15:57:41 EST by Autumn Styles Blood specimen (specimen) 02/21/2020 12:23 PM EDT 02/21/2020 12:25 PM EDT Narrative Resulting Agency Comment Spec In Lab Maykel Jacobson MD BLOOD BANK LAB ORDER ALLAN Performing Organization Address City/[facility]/ZIP Co de Phone Number [facility] [place] [address] * ABO/Rh Typing (02/21/2020 12:23 PM EDT) Pathologist [facility] ABORH Type A Pos [facility] Blood specimen (specimen) 02/21/2020 12:23 PM EDT 02/21/2020 12:25 PM EDT Narrative Resulting Agency Comment Spec In Lab Maykel Jacobson MD BLOOD BANK LAB ORDER ALLAN Performing Organization Address City/[facility]/ZIP Co de Phone Number [facility] [place] [phone] * Differential, Automated (02/21/2020 12:23 PM EDT) Neutrophil % 57.3 % [facility] Neutrophil Absolute 4.12 1.70 - 6.10 x10(3)/[facility] Lymph % 27.1 % [facility] Lymphocytes Abs 1.9 0.9 - 3.2 x10(3)/[facility] Monocyte % 9.1 % [facility] Monocyte Abs 0.6 0.3 - 0.9 x10(3)/[facility] Eos % 5.2 % [facility] Eosinophils Abs 0.4 0.0 - 0.4 x10(3)/[facility] Basophil % 0.7 % [facility] Baso Absolute 0.0 0.0 - 0.1 x10(3)/[facility] Immature Gran % 0.60 % [facility] Comment: Immature granulocytes(IG's)percentage and absolute count will include metamyelocytes, myelocytes, and promyelocytes. Blood smears from CBCs yielding IG's will be scanned manually for concordance. If this scan disagrees with the automated IG or if promyelocytes are noted, a manual differential will be performed. Immature Gran Absolute 0.04 0.00 - 0.04 x10(3)/mcL [facility] Blood specimen (specimen) 02/21/2020 12:23 PM EDT 02/21/2020 12:38 PM EDT Narrative Resulting Agency Comment Spec In Lab Maykel Jacobson MD HEMATOLOGY ORDERABLE S [facility] [place] [address] * (ABNORMAL) Hemogram (02/21/2020 12:23 PM EDT) White Blood Cell 7.2 4.0 - 9.5 x10(3)/mc L [facility] Red Blood Cell 4.28 4.00 - 5.21 x10(6)/mc L [facility] Hemoglobin 12.1 11.7 - 15.5 gm/dL [facility] Hematocrit 38.1 35.7 - 45.8 % [facility] Mean Cell Volume 89.0 82.6 - 94.4 fL [facility] Mean Cell Hemoglobin 28.3 27.1 - 32.0 pg [facility] Mean Cell Hemoglobin Concentration 31.8 31.7 - 35.0 gm/dL [facility] Platelet 361(H) 145 - 357 x10(3)/mc L [facility] RDW Standard Deviation 42.2 37.0 - 46.0 fL [facility] RDW coefficient of variation 13.0 11.5 - 14.1 % [facility] Mean Platelet Volume 10.5 7.6 - 12.9 fL [facility] NRBC% auto 0.0 % [facility] NRBC Absolute 0.000 0.000 - 0.000 x10(3)/mc L [facility] Blood specimen (specimen) 02/21/2020 12:23 PM EDT 02/21/2020 12:38 PM EDT Narrative Resulting Agency Comment Spec In Lab Maykel Jacobson MD HEMATOLOGY ORDERABLE S Performing Organization Address [facility] Co de Phone Number [facility] [address] * APTT (02/21/2020 12:23 PM EDT) Partial Thromboplastin Time 33 25 - 37 sec [facility] Comment: The PTT is NOT appropriate for heparin monitoring. Use the Anti-Xa level for heparin monitoring (HEP UFH) or LMWH monitoring (HEP LMW). A PTT less than 37 seconds generally indicates adequate hemostasis. Blood specimen (specimen) 02/21/2020 12:23 PM EDT 02/21/2020 12:38 PM EDT Narrative Resulting Agency Comment Spec In Lab Maykel Jacobson MD HEMATOLOGY ORDERABLE S Performing Organization Address [facility] de Phone Number [facility] [place] [address] * Prothrombin Time (02/21/2020 12:23 PM EDT) Prothrombin Time 11.5 9.4 - 12.5 sec [facility] [...] be appropriate depending on clinical circumstances. Blood specimen (specimen) 02/21/2020 12:23 PM EDT 02/21/2020 12:38 PM EDT Narrative Resulting Agency Comment Spec In Lab Maykel Jacobson MD HEMATOLOGY ORDERABLE S [facility] [place] [address] * Basic Metabolic Panel (non-fasting) (02/21/2020 12:23 PM EDT) Glucose 83 65 - 199 mg/dL [facility] Comment:Diabetes: >=200 mg/d L plus symptoms Blood Urea Nitrogen 13 8 - 18 mg/dL [facility] Creatinine 0.79 0.70 - 1.20 mg/dL [facility] Sodium 140 135 - 145 mmol/L [facility] Potassium 4.1 3.5 - 5.0 mmol/L [facility] Comment: Please note: ??Patients with WBC >100,000 may have falsely elevated Potassium levels. ??For accurate Potassium quantification in these patients send serum separator tube (gold top) for subsequent determinations. ??Contact the Clinical Chemistry Laboratory if there are any questions. Chloride 105 98 - 107 mmol/L [facility] Carbon Dioxide 25 22 - 31 mmol/L [facility] Anion Gap 10 5 - 15 mmol/L [facility] Calcium 9.5 8.5 - 10.5 mg/dL [facility] Est Glomerular Filtration Rate 83 >=60 mL/min/1. 73 m?? [facility] Comment: The eGFR was calculated using the CKD-EPI equation. As with all creatinine based estimates of kidney function, eGFR values calculated with the CKD-EPI equation are not accurate in patients with acute kidney failure, extremes of body mass or the acutely ill. [email or web address] eGFR 96 >=60 mL/min/1. 73 m?? [facility] Comment: The eGFR was calculated using the CKD-EPI equation. As with all creatinine based estimates of kidney function, eGFR values calculated with the CKD-EPI equation are not accurate in patients with acute kidney failure, extremes of body mass or the acutely ill. [email or web address] Blood specimen (specimen) 02/21/2020 12:23 PM EDT 02/21/2020 12:38 PM EDT Narrative Resulting Agency Comment Spec In Lab Maykel Jacobson MD CHEMISTRY ORDERABLES Performing Organization Address [facility]/ZIP Co de Phone Number [facility] [place] [address] * (ABNORMAL) Iron and TIBC (02/21/2020 12:23 PM EDT) Iron 78 30 - 150 mcg/dL [facility] TIBC 446 250 - 450 mcg/dL [facility] Iron Saturation 17(L) 20 - 50 % [facility] Blood specimen (specimen) 02/21/2020 12:23 PM EDT 02/21/2020 12:38 PM EDT Narrative Resulting Agency Comment Spec In Lab Tian Siddiqui MD CHEMISTRY ORDERAB LES Performing Organization Address [facility]/ZIP Co de Phone Number [facility] [place] [address] * Ferritin (02/21/2020 12:23 PM EDT) Ferritin 142 30 - 400 ng/mL [facility] Comment: Pediatric reference ranges not verified at [facility], interpret with caution. Reference ranges for females greater than 50 years of age approach values for men, i.e., 30-400 ng/mL. Blood specimen (specimen) 02/21/2020 12:23 PM EDT 02/21/2020 12:38 PM EDT Narrative Resulting Agency Comment Spec In Lab Tian Siddiqui MD CHEMISTRY ORDERAB LES Performing Organization Address City/[facility]/ZIP Co de Phone Number [facility] [place] [address] documented in this encounter Visit Diagnoses Diagnosis Preop examination Preoperative examination, unspecified Primary osteoarthritis of left knee Primary localized osteoarthrosis, lower leg Adult BMI 45.0-49.9 kg/sq m Body Mass Index 45.0-49.9, adult Chronic prescription opiate use Anemia, unspecified type Morbid obesity Chronic pain of left knee Pain in joint, lower leg Saphenous neuralgia, right documented in this encounter Care Teams Tie Layer Relationship Specialty Start Date End Date Bob Day MD [address] [place] [address] PCP - General Family Medicine 01/18/18 07/26/20 documented as of this encounter
--- OUTSIDE RECORDS SUMMARY | 2024-04-05 16:29 | XMS_ITS | Encounter Summary ---
Author Organization [facility] Address [facility] [place] [address] Care Team Providers Care Compliance Tester Name Role Phone Bob Day MD Primary Care Provider +1 [phone] Encounter Details Date Type Department Care Team (Late st Contact Info) Description 03/22/2020 [place] [address] Maykel Jacobson MD [facility] [place] [address] Social History Tobacco Use Types Packs/Day Years [...] encounter Miscellaneous Notes * Telephone Encounter - Antonia William RN - 03/22/2020 11:26 AM EST Orders placed for shower bench at patients request. [facility] will not submit through insurance. Patient requests that orders be sent to [facility], orders and notes faxed as requested * Telephone Encounter - Tata Guzman - 03/22/2020 11:01 AM EST Patient called in regards to getting a shower chair for after her surgery. documented in this encounter Plan of Treatment Upcoming Encounters Date Type Department Care Team (Latest Contact Info) Description 04/06/2024 11:30 AM EST Hospital Encounter Outpatient [place] [address] Cadence Eric MD [facility] [place] [address] 04/06/2024 11:30 AM EST - 04/06/2024 12:50 PM EST Surgery Outpatient [place] [address] Cadence Eric MD [facility] [place] [address] IMPLANT NEUROSTIMULATOR ELECTRODES, PERIPHERAL NERVE (WRVU 5.76) 04/14/2024 2:30 PM EST Office Visit [place] [phone] Cadence Eric MD [facility] [place] [address] Scheduled Procedures Name Priority Associated Diagnoses Date/Ti [...] documented in this encounter Care Teams Compliance Tester Relationship Specialty Start Date End Date Bob Day MD [address] [place] [address] PCP - General Family Medicine 01/18/18 07/26/20 documented as of this encounter
--- OUTSIDE RECORDS SUMMARY | 2024-04-05 16:29 | XMS_ITS | Encounter Summary ---
Author Organization [facility] Address [facility] [place] [address] Care Team Providers Care Coding Consultant Name Role Phone Bob Day MD Primary Care Provider [phone] [phone] Reason for Visit * Reason Comments Left Knee Pain PRE OP 03/19/20 LEFT TKA Encounter Details Date Type Department Care Team (Latest Contact Info) Description 02/21/2020 10:40 AM EDT Office [place] [address] Tian Siddiqui MD [facility] DR [place] [address] Preop examination; Primary osteoarthritis of left knee; Adult BMI 45.0-49.9 kg/sq m; Chronic prescription opiate use; Anemia, unspecified type Social History Tobacco Use Types [...] as of this encounter Progress Notes * Tian Siddiqui MD - 02/21/2020 10:40 AM EDT Images from the original note were not included. CC: Etelvina Willoughby is a 59 y.o. female new patient to the perioperative clinic with the following problems and medications that is being seen in the clinic for consultation at the request of her surgeon Dr. Maykel Jacobson for preoperative risk stratification and management recommendations in anticipation of left total knee arthroplasty for symptomatic OA. HPI - Pain - Location - left knee, Quality - aching, buckling Onset - gradual, Duration - several months, Intensity - moderate to severe, Aggravating factors - standing, walking, stepping, bending, Alleviating factors - NSAID, APAP, opiate, rest, topical, Associated - has intrathecal pump with Morphine managed per Dr. Becker at [facility]. Additionally she takes about three oxycodone 10mg tablets on a prn basis daily. Patient Active Problem List Diagnosis Code ??? [...] depression F41.9, F32.9 ??? HLD (hyperlipidemia) E78.5 Current Outpatient Medications Medication Sig Dispense Refill ??? calcium carbonate-vitamin D3 (Os-Nico 500 + D3) 500mg (1,250mg) -600 unit Tablet Take by mouth Daily. ??? Bifidobacterium infantis (ALIGN) 4 mg Capsule Take by mouth daily. ??? PROAIR HFA 90 mcg/actuation HFA Aerosol Inhaler inhale 1 to 2 puffs by mouth every 4 to 6 hoursif needed for wheezing 0 ??? NARCAN 4 mg/actuation [place], Non-Aerosol instill 1 spray in 1 NOSTRIL [...] (MORPHINE IN D5W) 1 mg/mL Prefilled Pump [place] Inject as directed. ??? oxyCODONE (ROXICODONE) 10 mg Tablet Take 1 tablet by mouth every 3 hours as needed (pain). (Patient taking differently: Take 10 mg by mouth every 3 hours as needed (pain). Indications: three a day) 25 tablet 0 ??? polyethylene glycol (MIRALAX) 17 gram Powder in Packet Take by mouth as needed. ??? EPINEPHrine 1 mg/mL Kit Inject as directed as needed. ??? fenofibrate (TRIGLIDE) 160 mg Tablet Take 160 mg by mouth nightly. ??? levothyroxine (SYNTHROID) 100 mcg tablet 100 MCG = 1 Tablet(s), PO, Once daily No current facility-administered medications for this visit. [...] Maternal Grandmother ??? Anesthesia Reaction Neg Hx Review of Systems Constitutional: Negative [...] last 24 hrs Heart Rate Heart Rate: [51] Blood Pressure BP: (127)/(70) SpO2 SpO2: [99 %] Estimated body mass index is 43.94 kg/m?? as calculated from the following: Height as of an earlier encounter on 02/21/20: 152.4 cm (5'). Weight as of an earlier encounter on 02/21/20: 102.1 kg (225 lb). Physical Exam Constitutional: She is oriented [...] She has left knee effusion with ROM 15- 90 with no drift on extension. Neurological: She is alert and oriented to person, place, and time. She displays no tremors. Skin: Skin is warm and dry. She is not diaphoretic. No pallor. Psychiatric: She has a normal mood and affect. Her behavior is normal. Judgment and thought contentnormal. Lab Results Component Value Date WBC 7.2 02/21/2020 RBC 4.28 02/21/2020 HGB 12.1 02/21/2020 HCT 38.1 02/21/2020 MCV 89.0 02/21/2020 MCH 28.3 02/21/2020 MCHC 31.8 02/21/2020 PLATELET 361 (H) 02/21/2020 RDWCV 13.0 02/21/2020 Results for ETELVINA WILLOUGHBY ( ) as of 02/21/2020 13:24 Ref. Range 02/21/2020 12:23 Iron Latest Ref Range: 30 - 150 mcg/dL 78 TIBC Latest Ref Range: 250 - 450 mcg/dL 446 Iron Saturation Latest Ref Range: 20 - 50 % 17 (L) Lab Results Component Value Date FERRITIN 142 02/21/2020 Lab Results Component Value Date NA 140 02/21/2020 K 4.1 02/21/2020 CL 105 02/21/2020 CO2 25 02/21/2020 BUN 13 02/21/2020 CREATININE 0.79 02/21/2020 GLUCOSE 83 02/21/2020 CALCIUM 9.5 02/21/2020 ESTGFR 83 02/21/2020 Lab Results Component Value Date PT 11.5 02/21/2020 INR 1.0 02/21/2020 PTT 33 02/21/2020 Estimated Creatinine Clearance: 83.4 mL/min (based on SCr of 0.79 mg/dL). EKG (image reviewed): Sinus bradycardia, 56/min, poor R wave progression, cannot rule out anterior infarct, non specific T wave abnormality in anterior leads Xray Standing alignment: Mechanical axis of the right knee passes 2.8 cm medial to the tibial eminence. Mechanical axis of the left knee passes 4.8 cm medial to the tibial eminence. No pelvic tilt. IMPRESSION 1. Uncomplicated right medial unicompartment knee arthroplasty. 2. Left knee osteoarthropathy. 3. Bilateral moderate knee joint effusions are nonspecific. 4. Standing alignment as detailed above. A/P 1. Preop examination Ferritin Iron and TIBC 2. Primary osteoarthritis of left knee Ferritin Iron and TIBC 3. Adult BMI 45.0-49.9 kg/sq m Ferritin Iron and TIBC 4. Chronic prescription opiate use Ferritin Iron and TIBC 5. Anemia, unspecified type Ferritin Iron and TIBC She had anemia but seems to have improved lately although her iron saturation remains less than normal, in the absence of anemia, with a normal ferritin, it is reasonable to proceed with the current plan for surgery and pursue the colonoscopy after recovery as planned. She is taking MVI with minerals and likely getting iron within, will defer further supplementation at this time in light of a normal ferritin. Major Risk Factor per the Revised Cardiac Risk Index (Bold if present) - There is no history of CAD, CHF, CVA or TIA, DM2 on insulin, or a Creatinine >2 Risk diagnosis for MACE (major adverse cardiovascular event = Myocardial infarction, pulmonary edema, ventricular fibrillation, primary cardiac arrest, or complete heart block.) : Low <1% . The patient describes a functional status of equal to 4METs (attends to self and home, support from partner at her side today) and based on the ACC/AHA 2014 guideline no further cardiovascular testing is indicated. ARISCAT/CANET Score - estimates the risk of postoperative pulmonary complications as being low ~3.5%. Per the ACS NSQIP calculator I estimated the following. Patient instructions: Take Synthroid, citalopram, oxycodone the morning of surgery. Bring albuteroland Synthroid to surgery. RECOMMENDATION: Consult APS for perioperative management with intrathecal pump, chronic opiate therapy. Continue citalopram, Synthroid (may have own), albuterol, oxycodone, calcium with D, MVI with minerals and Miralax Resume fenofibrate 48 hours after surgery. Is this patient a candidate for expedited recovery after total joint replacement no BMI>40, RAPT is 12/20 implying probable discharge home with support after hospital stay. documented in this encounter Plan of Treatment Upcoming Encounters Date Type Department Care Team (Latest Contact Info) Description 04/06/2024 11:30 AM EST Hospital Encounter [place] [address] Cadence Eric MD [facility] [place] [address] 04/06/2024 11:30 AM EST - 04/06/2024 12:50 PM EST Surgery [place]patient [place] [phone] Cadence Eric MD [facility] [place] [address] IMPLANT NEUROSTIMULATOR ELECTRODES, PERIPHERAL NERVE (WRVU 5.76) 04/14/2024 2:30 PM EST Office Visit [facility] [place] [phone] Cadence Eric MD [facility] [place] [address] Scheduled Procedures Name Priority Associated Diagnoses Date/Ti me IMPLANT NEUROSTIMULATOR ELECTRODES, PERIPHERAL NERVE (WRVU 5.76) Yes Saphenous neuralgia, right 04/06/2024 11:30 AM EST IMPLANT NEUROSTIMULATOR ELECTRODES, PERIPHERAL NERVE (WRVU 5.76) Saphenous neuralgia, 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 Neuropathic pain COLONOSCOPY,SCREENING (WRVU 3.26) Health maintenance examination-screening colo documented as of this encounter Results * (ABNORMAL) Iron and TIBC (02/21/2020 12:23 PM EDT) Iron 78 30 - 150 mcg/dL [facility] TIBC 446 250 - 450 mcg/dL [facility] Iron Saturation 17(L) 20 - 50 % [facility] Blood specimen (specimen) 02/21/2020 12:23 PM EDT 02/21/2020 12:38 PM EDT Narrative Resulting Agency Comment Spec In Lab Tian Siddiqui MD CHEMISTRY ORDERAB LES Performing Organization Address City/[facility]/ZIP Co de Phone Number [facility] [place] [address] * Ferritin (02/21/2020 12:23 PM EDT) Ferritin 142 30 - 400 ng/mL [facility] Comment: Pediatric reference ranges not verified at [facility], interpret with caution. Reference ranges for females greater than 50 years of age approach values for men, i.e., 30-400 ng/mL. Blood specimen (specimen) 02/21/2020 12:23 PM EDT 02/21/2020 12:38 PM EDT Narrative Resulting Agency Comment Spec In Lab Tian Siddiqui MD CHEMISTRY ORDERAB LES Performing Organization Address [facility]/ZIP Co de Phone Number [facility] [place] [address] documented in this encounter Visit Diagnoses Diagnosis Preop examination Preoperative examination, unspecified Primary osteoarthritis of left knee Primary localized osteoarthrosis, lower leg Adult BMI 45.0-49.9 kg/sq m Body Mass Index 45.0-49.9, adult Chronic prescription opiate use Anemia, unspecified type Saphenous neuralgia, right documented in this encounter Care Teams Coding Consultant Relationship Specialty Start Date End Date Bob Day MD [address] [place] [address] PCP - General Family Medicine 01/18/18 07/26/20 documented as of this encounter
--- OUTSIDE RECORDS SUMMARY | 2024-04-05 16:30 | XMS_ITS | Encounter Summary ---
Author Organization [facility] [place] [address] Care Team Providers Care Sales Operations Lead Name Role Phone Bob Day MD Primary Care Provider [phone] [phone] Encounter Details Date Type Department Care Team (Late st Contact Info) Description 10/28/2019 Telephone [place] [phone] Etelvina Bishop RN Social History Tobacco Use [...] Telephone Encounter - Etelvina Bishop RN - 10/28/2019 2:50 PM EDT Etelvina called the [employer] rep and they told her that the Doctoer has to go into her program and reprogram the pump for 12 hour lock out instead of the 24 hour . I told her I would forward the messageto Dr Greco and have Dr Greco call her. Please advise. documented in this encounter Plan of Treatment Upcoming Encounters Date Type Department Care Team (Latest Contact Info) Description 04/06/2024 11:30 AM EST Hospital Encounter [place]patient [place] [address] Cadence Eric MD [facility] [place] [address] 04/06/2024 11:30 AM EST - 04/06/2024 12:50 PM EST Surgery [place] [address] Cadence Eric MD [facility] [place] [address] IMPLANT NEUROSTIMULATOR ELECTRODES, PERIPHERAL NERVE (WRVU 5.76) 04/14/2024 2:30 PM EST Office Visit [place] [address] Cadence Eric MD [facility] [place] [address] Scheduled Procedures Name Priority Associated Diagnoses Date/Ti [...] on filedocumented in this encounter Care Teams Sales Operations Lead Relationship Specialty Start Date End Date Bob Day MD [address] [place] [address] PCP - General Family Medicine 01/18/18 07/26/20 documented as of this encounter
--- OUTSIDE RECORDS SUMMARY | 2024-04-05 16:30 | XMS_ITS | Encounter Summary ---
Author Organization [facility] Address [facility] [place] [address] Care Team Providers Care Oven Builder Name Role Phone Bob Day MD Primary Care Provider [phone] [phone] Encounter Details Date Type Department Care Team (Late st Contact Info) Description 12/05/2019 1:30 PM EDT Ancillary [place] [phone] Karl Becker MD [facility] [place] [address] Pain Social History Tobacco Use Types Packs/Day [...] AM EST Hospital Encounter Outpatient [place] [phone] Cadence Eric MD [facility] [place] [address] 04/06/2024 11:30 AM EST - 04/06/2024 12:50 PM EST Surgery Outpatient [place] [address] Cadence Eric MD [facility] [place] [address] IMPLANT NEUROSTIMULATOR ELECTRODES, PERIPHERAL NERVE (WRVU 5.76) 04/14/2024 2:30 PM EST Office Visit [place] [address] Cadence Eric MD [facility] [place] [address] Pending Results Name Type Priority Associated Diagnoses Date /Time Film Library- Storage Only Pain Clinic Ultrasound Imaging Storage Only Routine Pain 12/05/2019 1:22 PM EDT Scheduled Procedures Name Priority Associated [...] right documented in this encounter Care Teams Oven Builder Relationship Specialty Start Date End Date Bob Day MD [address] [place] [address] PCP - General Family Medicine 01/18/18 07/26/20 documented as of this encounter
--- OUTSIDE RECORDS SUMMARY | 2024-04-05 16:30 | XMS_ITS | Encounter Summary ---
Author Organization [facility] Address [facility] [place] [address] Care Team Providers Care Computer Operations Technician Name Role Phone Bob Day MD Primary Care Provider [phone] [phone] Encounter Details Date Type Department Care Team (Late st Contact Info) Description 03/31/2019 External Results [facility] [place] [phone] Karl Becker MD [facility] [place] [place] [address] Social History Tobacco Use Types Packs/Day Years [...] EST Hospital Encounter Outpatient [place] [phone] Cadence Eric MD [facility] [place] [address] 04/06/2024 11:30 AM EST - 04/06/2024 12:50 PM EST Surgery Outpatient [place] [address] Cadence Eric MD [facility] [place] [address] IMPLANT NEUROSTIMULATOR ELECTRODES, PERIPHERAL NERVE (WRVU 5.76) 04/14/2024 2:30 PM EST Office Visit [facility] [place] [phone] Cadence Eric MD [facility] [place] [address] Scheduled Procedures Name Priority Associated Diagnoses Date/Ti [...] Associated Diagnosis Comments INTRATHECAL PUMP REFILL Routine 03/30/2019 documented in this encounter Results * INTRATHECAL PUMP REFILL (03/30/2019) Karl Becker MD PROCEDURE/MINOR SURG ICAL ORDERABLES documented in this encounter Visit Diagnoses Not on filedocumented in this encounter Care Teams Computer Operations Technician Relationship Specialty Start Date End Date Bob Day MD [address] [place] [address] PCP - General Family Medicine 01/18/18 07/26/20 documented as of this encounter
--- OUTSIDE RECORDS SUMMARY | 2024-04-05 16:30 | XMS_ITS | Encounter Summary ---
Author Organization [facility] Address [facility] [place] [address] Care Team Providers Care Yarrow Gatherer Name Role Phone Bob Day MD Primary Care Provider [phone] [phone] Encounter Details Date Type Department Care Team (Late st Contact Info) Description 11/15/2019 [facility] Conversion Results [address] [place] [phone] [facility] Conversion, Flowsheet Provider, Social History Tobacco [...] Sign Reading Time Taken Comments Blood Pressure 115/75 11/15/2019 12:00 AM EDT Sourced from [facility] Conversion Pulse - - Temperature - - Respiratory Rate - - Oxygen Saturation - - Inhaled Oxygen Concentration - - Weight 109.8 kg (242 lb) 11/15/2019 12: 00 AM EDT Sourced from [facility] Conversion Height 152 cm (4' 11.84) 11/15/2019 12 :00 AM EDT Sourced from [facility] Conversion Body Mass Index 47.51 11/15/2019 12:00 AM EDT documented in this encounter Plan of Treatment Upcoming Encounters Date Type Department Care Team (Latest Contact Info) Description 04/06/2024 11:30 AM [facility] Hospital Encounter [place]patient [place] [address] Cadence Eric MD [facility] [place] [address] 04/06/2024 11:30 AM EST - 04/06/2024 12:50 PM EST Surgery [place]patient [place] [address] Cadence Eric MD [facility] [place] [address] IMPLANT NEUROSTIMULATOR ELECTRODES, PERIPHERAL NERVE (WRVU 5.76) 04/14/2024 2:30 PM EST Office Visit [place] [address] Cadence Eric MD [facility] [place] [address] Scheduled Procedures Name Priority Associated Diagnoses Date/Ti [...] on filedocumented in this encounter Care Teams Yarrow Gatherer Relationship Specialty Start Date End Date Bob Day MD [address] [place] [address] PCP - General Family Medicine 01/18/18 07/26/20 documented as of this encounter
--- OUTSIDE RECORDS SUMMARY | 2024-04-05 16:30 | XMS_ITS | Encounter Summary ---
Author Organization [facility] Address [facility] [place] [address] Care Team Providers Care Accounting Manager Name Role Phone Bob Day MD Primary Care Provider [phone] [phone] Encounter Details Date Type Department Care Team (Late st Contact Info) Description 10/24/2019 Orders Only Department to catch Future Orders pre go live [address] [place] [phone] Bob Day MD [address] [place] [address] Hypothyroidism, unspecified; Low back pain Social History Tobacco Use Types Packs/Day [...] AM EST Hospital Encounter [place]patient [place] [address] Cadence Eric MD [facility] [place] [address] 04/06/2024 11:30 AM EST - 04/06/2024 12:50 PM EST Surgery [place] [address] Cadence Eric MD [facility] [place] [address] IMPLANT NEUROSTIMULATOR ELECTRODES, PERIPHERAL NERVE (WRVU 5.76) 04/14/2024 2:30 PM EST Office Visit [place] [address] Cadence Eric MD [facility] [place] [address] Scheduled Procedures Name Priority Associated Diagnoses Date/Ti me IMPLANT NEUROSTIMULATOR ELECTRODES, PERIPHERAL NERVE (WRVU 5.76) Yes Saphenous neuralgia, right 04/06/2024 11:30 AM EST IMPLANT NEUROSTIMULATOR ELECTRODES, PERIPHERAL NERVE (WRVU 5.76) Saphenous neuralgia, 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 Neuropathic pain COLONOSCOPY,SCREENING (WRVU 3.26) Health maintenance examination-screening colo documented as of this encounter Visit Diagnoses Diagnosis Hypothyroidism, unspecified Low back pain Lumbago Saphenous neuralgia, right documented in this encounter Care Teams Accounting Manager Relationship Specialty Start Date End Date Bob Dya MD [address] [place] [address] PCP - General Family Medicine 01/18/18 07/26/20 documented as of this encounter
--- OUTSIDE RECORDS SUMMARY | 2024-04-05 16:30 | XMS_ITS | Encounter Summary ---
Author Organization [facility] Address [facility] [place] [address] Care Team Providers Care Animal Care Provider Name Role Phone Bob Day MD Primary Care Provider [phone] [phone] Encounter Details Date Type Department Care Team (Late st Contact Info) Description 12/05/2019 Orders Only [facility] [place] [address] Stacia Falcon Social History Tobacco Use Types Packs/Day Years [...] AM EST Hospital Encounter [place] [address] Cadence Eric MD [facility] [place] [address] 04/06/2024 11:30 AM EST - 04/06/2024 12:50 PM EST Surgery [place]patient [place] [phone] Cadence Eric MD [facility] [place] [address] IMPLANT NEUROSTIMULATOR ELECTRODES, PERIPHERAL NERVE (WRVU 5.76) 04/14/2024 2:30 PM EST Office Visit [place] [address] Cadence Eric MD [facility] [place] [address] Scheduled Procedures Name Priority Associated Diagnoses Date/Ti [...] on filedocumented in this encounter Care Teams Animal Care Provider Relationship Specialty Start Date End Date Bob Day MD [address] [place] [address] PCP - General Family Medicine 01/18/18 07/26/20 documented as of this encounter
--- OUTSIDE RECORDS SUMMARY | 2024-04-05 16:30 | XMS_ITS | Encounter Summary ---
Author Organization [facility] Address [facility] [place] [address] Care Team Providers Care Environmental Change Analyst Name Role Phone Bob Day MD Primary Care Provider [phone] [phone] Reason for Visit * Reason Comments Pain Management Encounter Details Date Type Department Care Team (Late st Contact Info) Description 04/04/2019 11:00 AM EST Office Visit [place] [address] Geovanna Greco MD [facility] [place] [address] Lumbar post-laminectomy syndrome Social History Tobacco Use Types Packs/Day Years [...] Sign Reading Time Taken Comments Blood Pressure 114/66 04/04/2019 11:07 AM EST Pulse 74 04/04/2019 11:07 AM EST Temperature - - Respiratory Rate - - Oxygen Saturation 97% 04/04/2019 11:07 AM EST Inhaled Oxygen Concentration - - Weight 103.9 kg (229 lb) 04/04/2019 11:07 AM EST Height 152.4 cm (5') 04/04/2019 11:07 AM EST Body Mass Index 44.72 04/04/2019 11:07 AM EST documented in this encounter Progress Notes * Geovanna Greco MD - 04/04/2019 11:00 AM EST [facility] Follow up Visit CC: the surgical scars are healing well. HPI: patient is a 58 yo female with lumbar post-laminectomy syndrome who is status post recent intrathecal pump replacement on 03/23/2019 who presents to clinic for surgical staple removal. She denies fever, chills, redness, drainage at surgical site. She has required less oral opioid for post operative pain control and has intention to wean off. Her intrathecal pump was refilled on 03/30/2019 and she has no trouble using her PTM. Physical exam: Constitution: normal appearing, in no acute distress HEENT: normacephalic, atraumatic Resp: normal breathing effort Skin: surgical sites well healed, no evidence of erythema or infection Neuro: conversant, answers questions appropriately, moving all four extremities symmetrically Assessment/Plan: Patient is a pleasant 58 yo female with lumbar post-laminectomy syndrome who is status post recent intrathecal pump replacement on 03/23/2019 and IT pump refill on 03/30/2019 with new refill date 08/29/2019. Her post-op pain is adequately controlled. She is here for surgical staple removal. Surgicalsite appears well healed, no evidence of infection. Davis removed without difficulty. Geovanna Greco MD documented in this encounter Plan of Treatment Upcoming Encounters Date Type Department Care Team (Latest Contact Info) Description 04/06/2024 11:30 AM EST Hospital Encounter Outpatient [place] [address] Cadence Eric MD [facility] [place] [address] 04/06/2024 11:30 AM EST - 04/06/2024 12:50 PM EST Surgery Outpatient [place] [address] Cadence Eric MD [facility] [place] [address] IMPLANT NEUROSTIMULATOR ELECTRODES, PERIPHERAL NERVE (WRVU 5.76) 04/14/2024 2:30 PM EST Office Visit [facility] at [facility] [place] [address] Cadence Eric MD [facility] [place] [place] [address] Scheduled Procedures Name Priority Associated Diagnoses Date/Ti me IMPLANT NEUROSTIMULATOR ELECTRODES, PERIPHERAL NERVE (WRVU 5.76) Yes Saphenous neuralgia, right 04/06/2024 11:30 AM EST IMPLANT NEUROSTIMULATOR ELECTRODES, PERIPHERAL NERVE (WRVU 5.76) Saphenous neuralgia, 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 Neuropathic pain COLONOSCOPY,SCREENING (WRVU 3.26) Health maintenance examination-screening colo documented as of this encounter Visit Diagnoses Diagnosis Lumbar post-laminectomy syndrome Postlaminectomy syndrome, lumbar region Saphenous neuralgia, right documented in this encounter Care Teams Environmental Change Analyst Relationship Specialty Start Date End Date Bob Day MD [address] [place] [address] PCP - General Family Medicine 01/18/18 07/26/20 documented as of this encounter
--- OUTSIDE RECORDS SUMMARY | 2024-04-05 16:30 | XMS_ITS | Encounter Summary ---
Author Organization [facility] Address [facility] [place] [address] Care Team Providers Care Performance Improvement Analyst Name Role Phone Bob Day MD Primary Care Provider [phone] [phone] Reason for Visit * Reason Comments Left Knee Pain NXR / Left Knee DJD - Surgical Options XR in EDH 11/14/19 * Consultation (Routine) - Closed Specialty Diagnoses / Procedures Referred By Cindy t Referred To Contact Orthopaedics Diagnoses Osteoarthritis of knee, unspecified DJD Left Knee Bob Day MD [address] [place] [phone] [facility] [address] [place] [id number] Referral ID Status Reason Start Date Expiration Date V isits Requested Visits Authorized [id number] Closed Consult, Test & Treat 11/29/2019 11/28/2020 1 1 Encounter Details Date Type Department Care Team (Latest Contact Info) Description 12/06/2019 9:10 AM EDT Office [place] [address] Maykel Jacobson MD [facility] [place] [address] Primary osteoarthritis of left knee; Morbid obesity; [...] Sign Reading Time Taken Comments Blood Pressure 80/62 12/06/2019 9:06 AM EDT Pulse 72 12/06/2019 9:06 AM EDT Temperature - - Respiratory Rate - - Oxygen Saturation - - Inhaled Oxygen Concentration - - Weight 104.3 kg (230 lb) 12/06/2019 9:06 AM EDT Height 152.4 cm (5') 12/06/2019 9:06 AM EDT Body Mass Index 44.92 12/06/2019 9:06 AM EDT documented in this encounter Progress Notes * Maykel Jung MD - 12/06/2019 9:10 AM EDT Images from the original note were not included. Department of Orthopaedics Division of Adult Joint Reconstructive Surgery CHIEF COMPLAINT: Chief Complaint Patient presents with ??? Left Knee Pain NXR / Left Knee DJD - Surgical Options XR in EDH 11/14/19 ARTHROPLASTY HISTORY/PREVIOUS KNEE SURGERY: 1. Right medial unicompartmental knee replacement (likely cemented mobile beraing [place] Etelvina was referred from Bob Day MD [address] [place] [address] I.D.: Etelvina Cuadra is a 59 y.o. year old female being seen today to discuss her left knee. Her history and physical exam were reviewed in detail. She states the knee has been symptomatic for months. The pain is predominantly medial. There was not inciting trauma/injury. She does not describe hip pain. She feels that her knee pain is keeping her from walking normally. Aggravating factors include activity, stair climbing, deep [...] period of her right unicompartmental knee replacement. She has not had injections into the joint: none She has NSAIDs/Pain meds: Aleve, Tylenol used but not effective She has brace treatment: Ms. Cuadra denies fevers/chills/headache/chest pain/shortness of breath/abdominal pain/nausea or vomiting/weight changes She does not endorse a history of DVT/PE or clotting disorder. QUESTIONNAIRE RESPONSES: General Health, Prior Treatments, PreExisting Condition, Health Habits, About You 12/06/2019 PROMIS-10 General Health Good PROMIS-10 Quality of Life Good PROMIS-10 Physical Health Fair PROMIS-10 Mental Health Excellent PROMIS-10 Social Activity Excellent PROMIS-10 Everyday Activities A little PROMIS-10 Pain 10 - Worst Imaginable Pain PROMIS-10 Fatigue Mild PROMIS-10 Social Roles Excellent PROMIS-10 Anxious or Depressed Never PROMIS PHYSICAL SCORE (range 16-68) 32.4 PROMIS MENTAL SCORE (range 21-68) 59 Treatments Tried Heat and ice therapy, Walking aids (e.g.cane, walker), Medicines applied on the skin (topical), Acetaminophen (e.g. Tylenol) KOOS JR Scores 0 TKA Grade 0 Alzheimers or dementia No Cirrohosis or liver disease No HIV/AIDS No Pain in more than one joint in legs Yes Back or neck pain Yes Heart attack No Heart failure No Unclog/bypass leg arteries No Stroke, blood clot, TIA No Asthma No Emphysema, chronic bronchities, or COPD No Stomach ulcers/peptic ulcer disease Yes Condition diagnosed by endoscopy Yes Diabetes No Poor kidney function No Rheumatic condtions No Cancer No Weight (lbs) 240 Height (feet) 5 feet Height (Inches) 0 BMI 46.86 (Obese) Ever used tobacco products Yes Tobacco frequency Never WHO - Tobacco Advice 0 (You are at low risk of health and other problems from your current pattern of use.) Ever used alcoholic beverages Yes Alcohol frequency Never WHO - Alcohol Advice 0 (You are at low risk of health and other problems from your current pattern of use.) Live Alone No Marital situation Schooling Some college or 2 - year degree Combined Household Income $50,000 to less than $75,000 # People Supported 2 Polish, , No, not Polish// Race White Health Literacy Extremely Currently working No Not working because: Not working due to disability [facility] Response 12/06/2019 KOOS JR Scores 0 Spine [facility] Response 12/06/2019 KOOS JR Scores 0 ALLERGIES Allergies Allergen Reactions ??? Peanut Anaphylaxis [...] Tetracyclines Itching ??? Wool Itching and Rash Allergies to metals: None. SOCIAL HISTORY: reports that she quit smoking about 28 years ago. Her smoking use included cigarettes. She smoked 0.25 packs per day. She has never used smokeless tobacco. She reports that she does not drink alcohol or use drugs. Occupation: Disability due to long standing back pain SIGNIFICANT MEDICAL COMORBIDITIES: Patient Active Problem List Diagnosis Code ??? CIS - Entered not Verified ??? Postlaminectomy syndrome of lumbar region M96.1 ??? CIS - Sciatica ??? Encounter for long-term opiate analgesic use Z79.891 ??? Cholecystitis K81.9 ??? Incisional hernia, with obstruction, without gangrene K43.0 ??? Morbid obesity with BMI of 50.0-59.9, adult E66.01, Z68.43 ??? Ventral hernia K43.9 ??? S/P repair of ventral hernia Z98.890, Z87.19 ??? Acquired hypothyroidism E03.9 ??? Cervicalgia M54.2 ??? Chronic pain disorder G89.4 ??? Chronic bilateral low back pain with bilateral sciatica M54.42, M54.41, G89.29 ??? Lumbago M54.5 ??? Opiate use F11.90 ??? Chronic pain G89.29 VITALS: BP Readings from Last 1 Encounters: 12/06/19 (!) 80/62 Pulse Readings from Last 1 Encounters: 12/06/19 72 Height: 152.4 cm (5') Weight: 104.3 kg (230 lb) Body mass index is 44.92 kg/m??. PHYSICAL EXAM: Constitution: Etelvina sits in the clinic today alert, appears stated age and cooperative. The patient is alert and oriented. I have made the following determinations: Knee Exam: Left Prior surgery on this joint: No Knee ROM: Extension:5 Flexion: 100 Alignment: 5-11 degrees Varus Stability: A/P Translation <5mm Varus (lateral stability) <5mm Valgus (medial stability) <5mm Extension La degrees or less Radiographic evidence of joint damage: [0= normal; 1=minimal ; 2= some osteophytes , some narrowing ; 3= moderate osteophytes, significantnarrowing, mild deformity; 4= large osteophytes, marked narrowing, obvious deformity]: 3= moderate osteophytes, significant narrorwing, mild deformity Patella Tracking: Normal Skin Integrity: Normal Pulses Palpable: Left PT:Yes Left DP:Yes Motor/Sensory: Distal Motor:Normal Distal Sensory: Normal Quadriceps Strength:5 Knee Effusion: 1+ Ecchymosis: none Patella: Patellar apprehension test: negative Patellar compression test: positive Tenderness: medial joint line, lateral joint line, medial facet of the patella and lateral facet ofthe patella IMAGING: X-rays of the left knee demonstrate shows DJD changes, likely chronic. Well- placed cemented unicompartmental knee replacement. There is no evidence of osteolysis or implant failure. ASSESSMENT AND PLAN: Ms. Cuadra is a 59 y.o. year old female with severe osteoarthritis of her left knee. Questions solicited and answered. Patient voiced understanding to info/instructions given. Treatment options discussed including Cortisone injection discussed. We reviewed the multiple treatment options available to her for this condition and the hurtful but non-harmful nature of arthritis. Both operative and nonoperative options were discussed as well as the pure elective nature of each. I reviewed the concept of the arthritis ladder with its step-zuniga approach, rising in invasiveness based on either previous response or symptom severity/impact on lifestyle. Considering the apparent impact on her lifestyle and having explored non- operative treatment options, I indicated that in my opinion total knee arthroplasty would be a reasonable option to attempt torestore a more normal, pain-free level of function. I discussed how the procedure is performed and all of their questions were answered. I discussed the risks of the procedure and the potentially devastating consequences of complications. Ms. Cuadra expressed a desire to pursue total knee arthroplasty. Today we provided her with a corticosteroid injection were optimistic will improve her pain. To make an attempt at weight loss understands that her pain may be difficult to control in the perioperative period given her high dose of narcotics. Potential barriers to total joint arthroplasty: -BMI > 40: Yes -Active Tobacco use: No -Diabetes with hemoglobin A1C > 7.5: No - High dose narcotic use including intrathecal morphine pump KNEE INJECTION: A time-out was performed and we confirmed the site of injection. The patient was confirmed to have no allergies to local anesthetics, or corticosteroids. The patient was reminded that blood glucose can be transiently elevated by the corticosteroid injection. The patient was counselled about the potential risks of the procedure, including infection, bleeding, and incomplete relief of symptoms. The left knee was prepped using Chloraprep. A steroid injection was performed using 5 cc of 0.25% Marcaine and 40 mg of Kenalog using a anteriomedial injection site. The injection flowed without resistance and the suprapatellar pouch was noted to distend. The injection site was covered with a band-aid and the patient tolerated it well. Maykel Jung MD documented in this encounter Plan of Treatment Upcoming Encounters Date Type Department Care Team (Latest Contact Info) Description 04/06/2024 11:30 AM EST Hospital Encounter [place]patient [place] [address] Cadence Eric MD [facility] [place] [address] 04/06/2024 11:30 AM EST - 04/06/2024 12:50 PM EST Surgery Outpatient [place] [address] Cadence Eric MD [facility] [address] IMPLANT NEUROSTIMULATOR ELECTRODES, PERIPHERAL NERVE (WRVU 5.76) 04/14/2024 2:30 PM EST Office Visit [place] [address] Cadence Eric MD [facility] [place] [address] Scheduled Procedures Name Priority Associated Diagnoses Date/Ti me IMPLANT NEUROSTIMULATOR ELECTRODES, PERIPHERAL NERVE (WRVU 5.76) Yes Saphenous neuralgia, right 04/06/2024 11:30 AM EST IMPLANT NEUROSTIMULATOR ELECTRODES, PERIPHERAL NERVE (WRVU 5.76) Saphenous neuralgia, 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 Neuropathic pain COLONOSCOPY,SCREENING (WRVU 3.26) Health maintenance examination-screening colo documented as of this encounter Results * EKG 12 Lead (02/21/2020 12:54 PM EDT) Ventricular rate 56 BPM MUSE SYSTEM Atrial Rate 56 BPM MUSE SYSTEM P-R Interval 146 ms MUSE SYSTEM QRS Duration 86 ms MUSE SYSTEM Q-T Interval 442 ms MUSE SYSTEM QTC Calculated (Bezet) 426 ms MUSE SYSTEM Calculated P [place] 14 degrees MUSE SYSTEM Calculated R [place] 32 degrees MUSE SYSTEM Calculated T [place] 52 degrees MUSE SYSTEM INTERPRETATION Sinus bradycardia Abnormal ECG When compared with ECG of 17-OCT-2016 11:56, Vent. rate has decreased BY ??34 BPM Confirmed by MD STEPHON, MANGO ([id number]) on 02/21/2020 9:39:25 PM MUSE SYSTEM 02/21/2020 12:5 4 PM EDT 02/21/2020 9:39 PM EDT Maykel Jacobson MD ECG ORDERABLES MUSE SYSTEM * APTT (02/21/2020 12:23 PM EDT) Partial [...] ORDERABLE S Performing Organization Address [facility] Phone Number [facility] [place] [address] * Prothrombin Time (02/21/2020 12:23 PM EDT) [...] ORDERABLE S Performing Organization Address [facility] de Phone Number [facility] [place] [address] * Basic Metabolic Panel (non-fasting) (02/21/2020 12:23 [...] of body mass or the acutely ill. http://[place]/[facility] eGFR 96 >=60 mL/min/1. 73 m?? [facility] Comment: The eGFR was calculated using the CKD-EPI equation. As with all creatinine based estimates of kidney function, eGFR values calculated with the CKD-EPI equation are not accurate in patients with acute kidney failure, extremes of body mass or the acutely ill. http://[place] [employer] [place]/[facility] Blood specimen (specimen) 02/21/2020 12:23 PM EDT 02/21/2020 12:38 PM EDT Narrative Resulting Agency Comment Spec In Lab Maykel Jacobson MD CHEMISTRY ORDERABLES [facility] [place] [address] * XR Knee Standing Alignment AP Lat [place] Abanda Bilat (12/06/2019 10:50 AM EDT) Anatomical Region [...] Left knee osteoarthritis and right knee uni 2012 (as entered by ordering provider in the [...] Left knee osteoarthritis and right knee uni 2012 (asentered by ordering provider in the order [...] Action Date Dose Rate Site BUpivacaine (PF) (MARCAINE) 0.25 % (2.5 mg/mL) injection 12.5 mg 12.5 mg, Intra-articular, ONCE, 1 dose, On Thu12/06/19 at 1030, Routine Given 12/06/2019 10:00 AM EDT 12.5 mg triamcinolone acetonide (KENALOG) injection 40 mg 40 mg, Intra-articular, ONCE, 1 dose, On Thu12/06/19 at 1030, Routine Given 12/06/2019 10:00 AM EDT 40 mg documented in this encounter Care Teams Performance Improvement Analyst Relationship Specialty Start Date End Date Bob Day MD [address] [place] [address] PCP - General Family Medicine 01/18/18 07/26/20 documented as of this encounter
--- OUTSIDE RECORDS SUMMARY | 2024-04-05 16:30 | XMS_ITS | Encounter Summary ---
Author Organization [facility] Address [facility] [place] [address] Care Team Providers Care First Aid Officer Name Role Phone Bob Day MD Primary Care Provider [phone] [phone] Encounter Details Date Type Department Care Team (Late st Contact Info) Description 10/10/2019 Orders [place] [phone] Woody So MD [facility] [place] [address] Pain (Primary Dx) Social History Tobacco Use Types [...] AM EST Hospital Encounter Outpatient [place] [phone] Cadence Eric MD [facility] [place] [address] 04/06/2024 11:30 AM EST - 04/06/2024 12:50 PM EST Surgery Outpatient [place] [address] Cadence Eric MD [facility] [place] [address] IMPLANT NEUROSTIMULATOR ELECTRODES, PERIPHERAL NERVE (WRVU 5.76) 04/14/2024 2:30 PM EST Office Visit [place] [address] Cadence Eric MD [facility] [place] [address] Scheduled Procedures Name Priority Associated Diagnoses Date/Ti me IMPLANT NEUROSTIMULATOR ELECTRODES, PERIPHERAL NERVE (WRVU 5.76) Yes Saphenous neuralgia, right 04/06/2024 11:30 AM EST IMPLANT NEUROSTIMULATOR ELECTRODES, PERIPHERAL NERVE (WRVU 5.76) Saphenous neuralgia, 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 Neuropathic pain COLONOSCOPY,SCREENING (WRVU 3.26) Health maintenance examination-screening colo documented as of this encounter Visit Diagnoses Diagnosis Pain- Primary Generalized pain Saphenous neuralgia, right documented in this encounter Care Teams First Aid Officer Relationship Specialty Start Date End Date Bob Day MD [address] [place] [address] PCP - General Family Medicine 01/18/18 07/26/20 documented as of this encounter
--- OUTSIDE RECORDS SUMMARY | 2024-04-05 16:30 | XMS_ITS | Encounter Summary ---
Author Organization [facility] Address [facility] [place] [address] Care Team Providers Care Livestock Judging Coach Name Role Phone Bob Day MD Primary Care Provider [phone] Encounter Details Date Type Department Care Team (Late st Contact Info) Description 10/07/2019 [place] [address] Say Arias MD [facility] [place] [address] Social History Tobacco Use Types Packs/Day Years [...] encounter Miscellaneous Notes * Telephone Encounter - Say Arias MD - 10/07/2019 4:23 PM EDT Spoke with patient regarding pump concern. 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 This occurred 2 days ago. Now, patient reports that her pump is subjectively hypermobile within the pocket. She feels as though it continues to flip back and forth which is new. She is still able to access her PTM and is having no withdrawal or overdose symptoms at this time. Patient will need to be seen in clinic on Thursday (10/10/19) for in-office evaluation. Patient instructed to present to ED and have me paged should she develop any emergent symptoms in the interim. She is scheduled to be seen by Dr. Greco at 12:30pm on 10/10/19. documented in this encounter Plan of Treatment Upcoming Encounters Date Type Department Care Team (Latest Contact Info) Description 04/06/2024 11:30 AM EST Hospital Encounter [place] [address] Cadence Eric MD [facility] [place] [address] 04/06/2024 11:30 AM EST - 04/06/2024 12:50 PM EST Surgery [place] [address] Cadence Eric MD [facility] [place] [address] IMPLANT NEUROSTIMULATOR ELECTRODES, PERIPHERAL NERVE (WRVU 5.76) 04/14/2024 2:30 PM EST Office Visit [place] [address] Cadence Eric MD [facility] [place] [address] Scheduled Procedures Name Priority Associated Diagnoses Date/Ti [...] on filedocumented in this encounter Care Teams Livestock Judging Coach Relationship Specialty Start Date End Date Bob Day MD [address] [place] [address] PCP - General Family Medicine 01/18/18 07/26/20 documented as of this encounter
--- OUTSIDE RECORDS SUMMARY | 2024-04-05 16:30 | XMS_ITS | Encounter Summary ---
Author Organization [facility] Address [facility] [place] [address] Care Team Providers Care Steam Oven Operator Name Role Phone Bob Day MD Primary Care Provider [phone] Encounter Details Date Type Department Care Team (Latest Contact Info) Description 12/05/2019 1:32 PM EDT - 12/05/2019 2:19 PM EDT Hospital [place] [address] Karl Becker MD [facility] [place] [address] Pain Discharge Disposition: Home Social History Tobacco [...] Sign Reading Time Taken Comments Blood Pressure 119/66 12/05/2019 1:40 PM EDT Pulse - - Temperature - - Respiratory Rate - - Oxygen Saturation - - Inhaled Oxygen Concentration - - Weight - - Height - - Body Mass Index - - documented in this encounter Discharge Instructions * Discharge Instructions* Flores Larkin RN - 12/05/2019 1:57 PM EDT Pain Management Center Discharge Instructions: You were seen today by Surgeon(s): Karl Becker MD Dey, [place], MD Truong, Quyen V, MD The following was performed: Procedure(s) (LRB): [...] or proceed to your local emergency department. Flores Larkin, RN documented in this encounter Medications at Time of Discharge Medication Sig Dispensed Refills Start Date End Date calcium carbonate-vitamin D3 (Os-Nico 500 + D3) 500mg (1,250mg) -600 unit Tablet Take 1 tablet by mouth Daily. 01/16/2016 Bifidobacterium infantis (ALIGN) 4 mg Capsule Take by mouth daily. 2 gummies daily=4MG NARCAN 4 mg/actuation [place], Non-Aerosol instill 1 spray in 1 NOSTRIL if needed for opioid overdose may re... (REFER TO PRESCRIPTION NOTES). 0 12/08/2018 multivitamin with minerals Tablet Take 1 tablet by mouth daily. morphine sulfate/D5W (MORPHINE IN D5W) 1 mg/mL Prefilled Pump [place] Inject as directed. Has intrathecal pump with continuous rate and Has 5 preset prn boluses pt may give herself albuteroL 90 mcg/actuation HFA Aerosol Inhaler Inhale 1-2 puffs into the lungs Every 4 hours. 12/06/2018 09/04/2021 gabapentin (Neurontin) 300 mg CapsuleIndications: Pain Take 1 capsule by mouth 3 times daily. 180 capsule 10/10/2019 12/06/2019 aspirin EC (Aspirin Low Dose) 81 mg Tablet, Delayed Release (E.C.) Take by mouth Daily. 01/16/201602/20 PROAIR HFA 90 mcg/actuation HFA Aerosol Inhaler inhale 1 to 2 puffs by mouth every 4 to 6 hours if needed for wheezing 0 12/06/2018 06/20/2020 YUVAFEM 10 mcg Tablet insert 1 tablet vaginally two times a week 0 12/06/2018 02/21/2020 flu vacc [id number],6mos up,/PF (FLUARIX QUAD 2754-6185, PF,) 60 mcg (15 mcg x 4)/0.5 mL Syringe inject 0.5 milliliters intramuscularly 0 01/07/2019 02/21/2020 HAVRIX, PF, 1,440 SONIDO unit/mL Syringe inject 1 milliliter intramuscularly 0 01/07/2019 02/21/2020 citalopram (CeleXA) 20 mg Tablet 20 mg daily. 0 02/04/2019 05/09/2020 morphine 100 % Powd 10 mg/mLIndications:Po st laminectomy syndrome,Postlamine ctomy syndrome by Intrathecal route continuous. 42 mL 12/01/2018 09/09/2021 baclofen (LIORESAL) 10 mg Tablet Take 10 mg by mouth as needed. 02/21/2020 calcium citrate-vitamin D (CITRACAL+D) 315-200 mg-unit Tablet Take by mouth daily. 10/13/2 020 fenofibrate (TRICOR) 145 mg Tablet Take 145 [...] H&P Notes * Wanda Arredondo MD - 12/05/2019 2:04 PM EDT Patient Name: Etelvina Cuadra Patient Age: 59 y.o. Birthdate: 1960 Admit date: 12/05/2019 Attending Physician: Karl Becker MD PREPROCEDURE HISTORY AND PHYSICAL Date of Visit: December 05, 2019 Chief Complaint: LOCATION: Chronic back pain HPI: Subjective ?? Etelvina Cuadra is a 58 y.o. female who presents today for intrathecal pump refill with a diagnosis ofpost laminectomy syndrome with symptoms of post laminectomy syndrome. Etelvina Cuadra is a 59 y.o. female who presents today for PROCEDURE: Intrathecal pump refill. The history is obtained from the patient, and I have reviewed medical records provided by the referring physician and located in the electronic medical record to fill in gaps in the patient's recollection of events, treatments and outcomes. The patient denies any recent NSAID or anticoagulation. PAIN LEVEL AT REST 6 PAST MEDICAL HISTORY: Past Medical History: Diagnosis Date ??? Allergic state ??? CAD (coronary artery disease) ??? Depression PAST SURGICAL HISTORY: Past Surgical History: Procedure Laterality Date ??? BACK SURGERY ??? IMPLANT OR REPLACE DEVICE FOR INTRATHECAL INFUSION, SUBQ RESERVOIR ??? ORTHOPEDIC SURGERY ??? PRO COLONOSCOPY, BIOPSY 10/07/2011 COLONOSCOPY FLEXIBLE, WITH BX performed by NIKKI MAYORGA at [facility] ENDOSCOPY ??? PRO COLONOSCOPY, DIAGNOSTIC 09/23/2011 COLONOSCOPY, DIAGNOSTIC performed by NIKIK MAYORGA at [facility] ENDOSCOPY ??? PRO ELECTRONIC PUMP ANALYSIS W REPROGRAMMING AND REFILL BY /NAHID N/A 03/30/2019 ELECTRONIC HERNANDEZ PROG., PUMP- DRUG INFUS; W/ REPROGRAM & REFILL REQ MD (WRVU 0.9) performed by Karl Becker MD at [facility] PAIN MGMT MSO ??? PRO IMP SPINAL CANAL CATH Midline 03/23/2019 IMPLANT, REV OR REP TUNNELED INTRATHACAL OR EPIDURAL CATHETER (WRVU 6.05) performed by Karl Becker MD at [facility] MAIN OR ??? PRO INSERT/ REPLACE INFUSN PUMP, PROGRAMMABLE Right 03/23/2019 IMPLANT OR REPLACE PROG. PUMP-DRUG INFUSION (WRVU 5.6) performed by Melani Darden MD at [facility] ADEEL ??? PRO LAP, CHOLECYSTECTOMY/GRAPH N/A 10/18/2016 LAPAROSCOPIC CHOLECYSTECTOMY WITH CHOLANGIOGRAM (WRVU 11.47) performed by Tasia Umaña MD at [facility] MAIN OR ??? PRO LAP, VENTRAL HERNIA REPAIR, INCARCERATED N/A 07/12/2018 LAPAROSCOPIC HERNIA, VENTRAL, INCARCERATED, W-WO MESH (WRVU 14.94) performed by Izzy Blanco MD at [facility] MAIN OR ALLERGIES: Peanut, Peanut oil, Rice, Wheat, Wheat bran, Wheat flour, Wheat germ oil, Wheat starch, Canine protein containing products, Hazelnut, Hydrocodone, Hydrocodone- acetaminophen, Hydrocodone-ibuprofen, Rofecoxib, Tetracycline, Tetracyclines, and Wool MEDICATIONS: No current facility-administered medications on file prior to encounter. Current Outpatient Medications on File Prior to Encounter Medication Sig Dispense Refill ??? gabapentin (Neurontin) 300 mg Capsule Take 1 capsule by mouth 3 times daily. (Patient not taking: Reported on 12/05/2019) 180 capsule 0 ??? aspirin EC (Aspirin Low Dose) 81 mg Tablet, Delayed Release (E.C.) Take by mouth Daily. ??? calcium carbonate-vitamin D3 (Os-Nico 500 + D3) 500mg (1,250mg) -600 unit Tablet Take by mouth Daily. ??? Bifidobacterium infantis (ALIGN) 4 mg Capsule Take by mouth daily. ??? PROAIR HFA 90 mcg/actuation HFA Aerosol Inhaler inhale 1 to 2 puffs by mouth every 4 to 6 hoursif needed for wheezing 0 ??? YUVAFEM 10 mcg Tablet insert 1 tablet vaginally two times a week 0 ??? flu vacc [id number],6mos up,/PF (FLUARIX QUAD [id number], PF,) 60 mcg (15 mcg x 4)/0.5 mL Syringeinject 0.5 milliliters intramuscularly 0 ??? HAVRIX, PF, 1,440 SONIDO unit/mL Syringe inject 1 milliliter intramuscularly 0 ??? NARCAN 4 mg/actuation [place], Non-Aerosol instill 1 spray in 1 NOSTRIL if needed for opioid overdose may re... (REFER TO PRESCRIPTION NOTES). 0 ??? citalopram (CELEXA) 40 mg Tablet 20 mg daily. 0 ??? multivitamin with minerals Tablet Take 1 tablet by mouth daily. ??? morphine 100 % Powd 10 mg/mL by Intrathecal route continuous. 42 mL 0 ??? baclofen (LIORESAL) 10 mg Tablet Take 10 mg by mouth as needed. ??? calcium citrate-vitamin D (CITRACAL+D) 315-200 mg-unit Tablet Take by mouth daily. ??? fenofibrate (TRICOR) 145 mg Tablet Take 145 mg by mouth daily. ??? morphine sulfate/D5W (MORPHINE IN D5W) 1 mg/mL Prefilled Pump [place] Inject as directed. ??? oxyCODONE (ROXICODONE) 10 [...] Kit Inject as directed as needed. ??? oxyCODONE (OXYCONTIN) 20 mg tablet,oral only,ext.rel.12 hr Take 20 mg by mouth every 12 hours. ??? acetaminophen (TYLENOL) 500 mg Tablet Take 2 tablets by mouth every 6 hours as needed for Pain.(Patient not taking: Reported on 08/10/2019) ??? fenofibrate (TRIGLIDE) 160 mg Tablet Take 160 mg by mouth daily. ??? levothyroxine (SYNTHROID) 100 mcg tablet 100 [...] Types: Cigarettes Quit date: 09/23/1991 Years since quittin.2 ??? Smokeless tobacco: Never Used Substance and Sexual Activity ??? Alcohol use: No ??? Drug use: No ??? Sexual activity: Not on file Lifestyle ??? Physical activity Days per week: Not on file Minutes per session: Not on file ??? Stress: Not on file Relationships ??? Social connections Talks on phone: Not on file Gets together: Not on file Attends [employer] service: Not on file Active member of [...] antibiotics.Otherwise, as described above. PHYSICAL EXAM: BP 119/66 Physical Exam Constitutional: Pt oriented to person, [...] pertinent to today's procedure ASSESSMENT: Assessment 1. Pain PLAN: Proceed with procedure as planned Wanda Arredondo MD Pain Management Fellow [address] [phone] / [facility] documented in this encounter Miscellaneous Notes * Op Note - Karl Becker MD - 12/05/2019 2:17 PM EDT Pain Management Operative Note Patient Name: Etelvina Cuadra : [id number] MR#: [id number] Case Date: 12/05/2019 Surgeon: Surgeon(s) and Role: * Karl Becker MD - Primary * Wanda Arredondo MD - Fellow * Sheila Ramirez MD - Assisting Attending Present on Admission: ??? Postlaminectomy syndrome of lumbar region Postoperative diagnosis: Postlaminectomy syndrome of lumbar region Procedure(s) (LRB): ELECTRONIC HERNANDEZ PROG., PUMP- DRUG INFUS; W/ REPROGRAM & REFILL MILAGRO DAWSON (WRVU 0.9) (N/A) INTRATHECAL PUMP REFILL PROCEDURE NOTE WITH REPROGRAMMING The patient was concerned that her pump moved. We examined it using ultrasound as well as fluoroscopy to access it. Accessed under fluoroscopy was without difficulty. I palpated her pump and pocket felt that it was in good position as well. Primary Production Technician: Karl Becker MD Blow Torch Burner: Wanda Arredondo MD Reason for Reprogramming: Interrogation to confirm no pump log errors and to refill pump Diagnosis: Post-laminectomy syndrome Functional improvement with the pump: Able to complete ADL's with less pain VAS today: 6/10 Side effects from pump: Minor pain at [...] pain to palpation of scar overlying pump. Pump is anchored, unable manipulate pump from its anchored position. Pre-Refill Telemetry Programming Reading: Drugs/Concentrations: Morphine 10mg/mL - Preservative Free - Daily Dose: 2mg with mPTM 0.2mg q3hr PRN 5/day Brand/Compound: Compound. Post-Refill Telemetry Programming Reading: Drugs/Concentrations: Morphine 10mg/mL - Preservative Free - Daily Dose: 2mg with mPTM 0.2mg q3hr PRN 5/day Brand/Compound: Compound. Pump Capacity: 40 mL Computer predicted residual volume in pump: 8.1 mL Actual [place] volume: 9 mL Medication or Dose Changes: None Is dose change >30%? No Is concentration of drug different? No Empty syringe concentration verified by bill checker: yes If concentration of drug is different, has a bridge bolus been programmed? n/a. Has any program been used other than simple continuous or bridge bolus and simple continuous? no Infusion Mode: simple continuous. New Alarm Date: 04/10/20 PROCEDURE: Risks and expected side effects were [...] instilled into the pump according to the materials inspector's directions without difficulty. There was no evidence [...] Becker. Wanda Arredondo MD Pain Management Fellow [address] [phone] / [facility] documented in this encounter Plan of Treatment Upcoming Encounters Date Type Department Care Team (Latest Contact Info) Description 04/06/2024 11:30 AM EST Hospital Encounter [place] [address] Cadence Eric MD [facility] [place] [address] 04/06/2024 11:30 AM EST - 04/06/2024 12:50 PM EST Surgery [place] [address] Cadence Eric MD [facility] [place] [address] IMPLANT NEUROSTIMULATOR ELECTRODES, PERIPHERAL NERVE (WRVU 5.76) 04/14/2024 2:30 PM EST Office Visit [facility] [place] [phone] Cadence Eric MD [facility] [place] [address] Scheduled Procedures Name Priority Associated Diagnoses Date/Ti [...] STORAGE ONLY PAIN CLINIC C ARM Routine 12/06/2019 10:43 AM EDT Pain Anal Inf Sales And Service Engineer W ReproRefil([id number]) 12/05/2019 1:33 PM EDT Pump documented in this encounter Results * Film Library- Storage Only pain Clinic C-Arm (12/06/2019 10:43 AM EDT) Narrative [facility] - 12/06/2019 10:43 AM EDT See PACS for result report. Karl Becker MD IMG FILM LIBRARY ORD ERABLES [place], [place] documented in this encounter Visit Diagnoses Diagnosis Pain Generalized pain Saphenous neuralgia, right documented in this encounter Care Teams Steam Oven Operator Relationship Specialty Start Date End Date Bob Day MD [address] [place] [address] PCP - General Family Medicine 01/18/18 07/26/20 documented as of this encounter
--- OUTSIDE RECORDS SUMMARY | 2024-04-05 16:30 | XMS_ITS | Encounter Summary ---
Author Organization [facility] Address [facility] [place] [address] Care Team Providers Care Motor Electrician Name Role Phone Bob Day MD Primary Care Provider [phone] Encounter Details Date Type Department Care Team (Late st Contact Info) Description 11/14/2019 Interpretation Only [address] [phone] Bob Day MD [address] [place] [address] Social History Tobacco Use Types Packs/Day Years [...] AM EST Hospital Encounter Outpatient [place] [address] Cadence Eric MD [facility] [place] [address] 04/06/2024 11:30 AM EST - 04/06/2024 12:50 PM EST Surgery [place]patient [place] [address] Cadence Eric MD [facility] [place] [address] IMPLANT NEUROSTIMULATOR ELECTRODES, PERIPHERAL NERVE (WRVU 5.76) 04/14/2024 2:30 PM EST Office Visit [place] [phone] Cadence Eric MD [facility] [place] [address] Scheduled Procedures Name Priority Associated Diagnoses Date/Ti [...] Date/Time Associated Diagnosis Comments XR KNEE AP LAT AXIAL PATELLA LEFT Routine 11/14/2019 11:00 AM EDT documented in this encounter Results * XR Knee 3 Views Left (11/14/2019 11:00 AM EDT) Anatomical Region Laterality Modality Knee Left Radiographic Merline ging 11/14/2019 11:0 0 AM EDT Impressions 11/14/2019 11:06 AM EDT 1. ??Osteoarthropathy of left knee with narrowed medial joint space. 2. ??Moderate size effusion. Thank you for letting us participate in the care of this patient. For questions regarding this report, please contact the number below. ? Narrative 11/14/2019 11:06 AM EDT EXAMINATION: [facility] KNEE -LT(3VWS) CLINICAL HISTORY: She sustained hyperextension injury 3 weeks ago. Still painful and tends to giv, , entered by ordering service TECHNIQUE: Left knee, 3 views COMPARISON: none FINDINGS: Bones No acute fractures seen. Left knee joint Moderate to large left knee effusion. Narrowed medial joint spaces with diffuse osteophyte formation. Normal patellofemoral alignment. Soft tissues Normal contour of patella tendons. Limited evaluation of quadriceps tendon because of effusion and soft tissue swelling. Procedure Note Yanni Crowder MD - 11/14/2019 EXAMINATION: [facility] KNEE -LT(3VWS) CLINICAL HISTORY: She sustained hyperextension injury 3 weeks ago. Stillpainful and tends to giv, , entered by ordering service TECHNIQUE: Left knee, 3 views COMPARISON: none FINDINGS: Bones No acute fractures seen. Left knee joint Moderate to large left knee effusion. Narrowed medial joint spaces withdiffuse osteophyte formation. Normal patellofemoral alignment. Soft tissues Normal contour of patella tendons. Limited evaluation of quadricepstendon because of effusion and soft tissue swelling. IMPRESSION 1. Osteoarthropathy of left knee with narrowed medial joint space. 2. Moderate size effusion. Thank you for letting us participate in the care of this patient. Forquestions regarding this report, please contact the number below. Bob Day MD IMG DX ORDERABLES documented in this encounter Visit Diagnoses Not on filedocumented in this encounter Care Teams Motor Electrician Relationship Specialty Start Date End Date Bob Day MD [address] [place] [id number] PCP - General Family Medicine 01/18/18 07/26/20 documented as of this encounter
--- OUTSIDE RECORDS SUMMARY | 2024-04-05 16:30 | XMS_ITS | Encounter Summary ---
Author Organization [facility] Address [facility] [place] [address] Care Team Providers Care Donation Worker Name Role Phone Bob Day MD Primary Care Provider [phone] Reason for Visit * Reason Comments Pain Management Encounter Details Date Type Department Care Team (Latest Contact Info) Description 08/10/2019 3:00 PM EDT Procedure visit [place] [address] Cadence Eric MD [facility] [place] [address] Postlaminectomy syndrome of lumbar region Social History [...] Sign Reading Time Taken Comments Blood Pressure 116/90 08/10/2019 3:06 PM EDT Pulse 73 08/10/2019 3:06 PM EDT Temperature - - Respiratory Rate - - Oxygen Saturation 99% 08/10/2019 3:06 PM EDT Inhaled Oxygen Concentration - - Weight 103.9 kg (229 lb) 08/10/2019 3:06 PM EDT Height 152.4 cm (5') 08/10/2019 3:06 PM EDT Body Mass Index 44.72 08/10/2019 3:06 PM EDT documented in this encounter Progress Notes * Cadence Eric MD - 08/10/2019 3:00 PM EDT INTRATHECAL PUMP REFILL PROCEDURE NOTE WITH REPROGRAMMING ?? Primary Regional Coordinator: Say Arias MD ?? Mirror Finishing Machine Operator: Cadence Eric MD ?? Reason for Reprogramming: Refill ?? Diagnosis: post laminectomy syndrome ?? Side effects from pump: NONE noted Changes since last refill: Notes that PTM is very helpful but doesn't last long enough and time between PTM is too long. She doesn't use one dose per day due to being available while she is asleep. On review of her log session. She as reported uses three PTM boluses per day every day, but doesn't use 4th overnight dose. In the last 28 days she has had 5 PTM rejections. She notes she has heard some beeping at night twice. There are no mechanical alarms and she was not at a low volume. ? Physical Examination: ?? Constitutional: Her vital signs were normal and reviewed with the patient. She is in no acute distress. Respiratory: There is no respiratory distress Cardiovascular: Normal heart rate Skin (over the pump): The skin was grossly normal to the area of pain; juanito noted along surgicalincision right abdomen Eyes: EOMI, no scleral icterus Psychological: Normal ?? Pre-Refill Telemetry Programming Reading: Drugs/Concentrations: - Preservative Free Morphine??- ??10 mg/ml Daily Dose: Continuous 2 mg per day simple continuous with PTM 0.2 mg Q 6 hrs with max 09/01 ?? Post-Refill Telemetry Programming Reading: Drugs/Concentrations: - Preservative Free Morphine??- ??10 mg/ml Daily Dose: Continuous 2 mg per day simple continuous with PTM 0.2 mg Q 4 hrs with max 10/01 (10% increase) Brand/Compound: Compound. ? Pump Capacity: 40 mL ?? Computer predicted residual volume in pump: 5.3 ml ?? Measured residual volume in pump: 5.5 ml ?? Medication or Dose Changes: PTM; 0.2 mg q 4 hours 5 per day max. ?? Is dose change >30%? No ?? Is concentration of drug different? ??No If concentration of drug is different, has a bridge bolus been programmed? No ?? Has any program been used other than simple continuous or bridge bolus and simple continuous? No ?? Infusion Mode: simple continuous with PTM ?? New ??Alarm Date: 12/15/2019 ?? PROCEDURE: Risks and expected side effects were reviewed with patient and his??voiced concerns addressed. ??The printed consent form was signed and witnessed. ??The following information was verified: ? Patient Name on RX: Yes, Etelvina Cuadra ?? Drug Name on RX:Yes, Morphine Sulfate PF 10 MG/ML ?? Drug concentration on syringe containing pump refill medication: Yes, 10 MG/ML ?? The pump was accessed via telemetry and the computer predicted residual volume was noted as per above. Then Chlorhexidine??prep over the pump refill site was performed. ??Sterile drapes were applied as provided with the ??[employer] refill kit. Port site identified under fluoroscopic guidance. Underfluoroscopic guidance with 22 gauge Moraes non-coring needle supplied with [...] less than 0.5 ml. A total of 40??ml of solution was instilled into the pump according to the building insulation supervisor's directions without difficulty. There wasno evidence of over pressurization at the conclusion of the filling process. ??The Moraes needle waswithdrawn and a Band-Aid was applied. The pump was then re-accessed via telemetry and reprogrammed to indicate the refill volume of 40??ml. The unused portion of the medication was discarded along with the old drug aspirated. ?? Battery alarms reviewed and were appropriately enabled and in working order. ?? Comments: No longer taking LA opioid continues SA opioid. Patient will follow up with Dr Becker. On Fluoro side port oriented to 12 o clock. I have seen and examined the patient and reviewed the fellow's above history and I agree with the details as written. I was the attending physician supervising the fellow in the above care and I was present with the fellow for the entire procedure. Cadence Eric MD [facility] Center Assisant Professor of Anesthesiology [facility] of [address] [address] / [facility] * Cadence Eric MD - 08/10/2019 3:00 PM EDT PREPROCEDURE HISTORY AND PHYSICAL Date of Visit: August 10, 2019 Chief Complaint: Lower back pain HPI: Subjective Etelvina Cuadra is a 58 y.o. female who presents today for Refill/ Reprogramming of her IT pump. Notesthat PTM is very helpful but doesn't last long enough and time between PTM is too long. She doesn'tuse one dose per day due to being available while she is asleep. On review of her log session. She as reported uses three PTM boluses per day every day, but doesn't use 4th overnight dose. In the last 28 days she has had 5 PTM rejections. She notes she has heard some beeping at night twice. There are no mechanical alarms and she was not at a low volume. ?? The history is obtained from the patient, and I have reviewed medical records provided by the referring physician and located in the electronic medical record to fill in gaps in the patient's recollection of events, treatments and outcomes. LOCATION: across the lower back. PAST MEDICAL HISTORY: Past Medical History: Diagnosis [...] PUMP-DRUG INFUSION (WRVU 5.6) performed by Melani Dadren MD at [facility] ??? PRO LAP, CHOLECYSTECTOMY/GRAPH N/A 10/18/2016 LAPAROSCOPIC CHOLECYSTECTOMY WITH CHOLANGIOGRAM (WRVU 11.47) performed by Tasia Umaña MD at [facility] MAIN OR ??? PRO LAP, VENTRAL HERNIA REPAIR, INCARCERATED N/A 07/12/2018 LAPAROSCOPIC HERNIA, VENTRAL, INCARCERATED, W-WO MESH (WRVU 14.94) performed by Izzy Blanco MD at [facility] MAIN OR ALLERGIES: Peanut; Peanut oil; Rice; Wheat; Wheat bran; Wheat flour; Wheat germ oil; Wheat starch; Canine protein containing products; Hazelnut; Hydrocodone; Hydrocodone- acetaminophen; Hydrocodone-ibuprofen; Rofecoxib; Tetracycline; Tetracyclines; and Wool MEDICATIONS: Medications 08/10/19 1506 Medication Sig Taking? calcium carbonate-vitamin D3 (Os-Nico 500 + D3) 500mg (1,250mg) -600 unit Tablet Take by mouth Daily. Yes Bifidobacterium infantis (ALIGN) 4 mg Capsule Take by mouth daily. Yes PROAIR HFA 90 mcg/actuation HFA Aerosol Inhaler inhale 1 to 2 puffs by mouth every 4 to 6 hours if needed for wheezing Yes YUVAFEM 10 mcg Tablet insert 1 tablet vaginally two times a week Yes flu vacc [id number] up,/PF (FLUARIX QUAD 8009-3643, PF,) 60 mcg (15 mcg x 4)/0.5 mL Syringe inject 0.5 milliliters intramuscularly Yes HAVRIX, PF, 1,440 SONIDO unit/mL Syringe inject 1 milliliter intramuscularly Yes citalopram (CELEXA) 40 mg Tablet 20 mg daily. Yes multivitamin with minerals Tablet Take 1 tablet by mouth daily. Yes morphine 100 % Powd 10 mg/mL by Intrathecal route continuous. Yes morphine sulfate/D5W (MORPHINE IN D5W) 1 mg/mL Prefilled Pump [place] Inject as directed. Yes oxyCODONE (ROXICODONE) 10 mg Tablet Take 1 tablet by mouth every 3 hours as needed (pain). Patient taking differently: Take 10 mg by mouth every 3 hours as needed (pain). Indications: three a day Yes EPINEPHrine 1 mg/mL Kit Inject as directed as needed. Yes fenofibrate (TRIGLIDE) 160 mg Tablet Take 160 mg by mouth daily. Yes levothyroxine (SYNTHROID) 100 mcg tablet 100 MCG = 1 Tablet(s), PO, Once daily Yes aspirin EC (Aspirin Low Dose) 81 mg Tablet, Delayed Release (E.C.) Take by mouth Daily. NARCAN 4 mg/actuation [place], Non-Aerosol instill 1 spray in 1 NOSTRIL if needed for opioid overdosemay re... (REFER TO PRESCRIPTION NOTES). baclofen (LIORESAL) 10 mg Tablet Take 10 mg by mouth as needed. calcium citrate-vitamin D (CITRACAL+D) 315-200 mg-unit Tablet Take by mouth daily. fenofibrate (TRICOR) 145 mg Tablet Take 145 mg by mouth daily. polyethylene glycol (MIRALAX) 17 gram Powder in Packet Take by mouth as needed. oxyCODONE (OXYCONTIN) 20 mg tablet,oral only,ext.rel.12 hr Take 20 mg by mouth every 12 hours. acetaminophen (TYLENOL) 500 mg Tablet Take 2 tablets by mouth every 6 hours as needed for Pain. Patient not taking: Reported on 08/10/2019 FAMILY HISTORY: Family History Problem Relation Age [...] status: Former Smoker Packs/day: 0.25 Types: Cigarettes Last attempt to quit: 09/23/1991 Years since quittin.8 ??? Smokeless tobacco: Never Used Substance and Sexual Activity ??? Alcohol use: No ??? Drug use: No ??? Sexual activity: Not on file Lifestyle ??? Physical activity Days per week: Not on file Minutes per session: Not on file ??? Stress: Not on file Relationships ??? Social connections Talks on phone: Not on file Gets together: Not on file Attends gnosticism service: Not on file Active member of [...] History Narrative ??? Not on file ROS: Patient denies any recent illness, infection, or rash. PHYSICAL EXAM: BP 116/90 Pulse 73 Ht 152.4 cm (5') Wt 103.9 kg (229 lb) SpO2 99% BMI 44.72 kg/m?? GEN: Patient in no acute distress RESP: Patient breathing comfortably on room air SKIN: No rash, skin breakdown, or infection noted near intended procedure site. PSYCH: Patient alert and oriented ASSESSMENT: Assessment 1. Postlaminectomy syndrome of lumbar region PLAN: There are no contraindications to the planned procedure. Proceed with Pump refill and reprogramming. Plan to decrease interval of PTM and add one additional bolus per day Cadence Eric MD [facility] Supervisor Cereal of Anesthesiology [employer] [facility] [employer] [address] [address] / [facility] documented in this encounter Plan of Treatment Upcoming Encounters Date Type Department Care Team (Latest Contact Info) Description 04/06/2024 11:30 AM EST Hospital Encounter Outpatient [place] [address] Cadence Eric MD [facility] [place] [address] 04/06/2024 11:30 AM EST - 04/06/2024 12:50 PM EST Surgery Outpatient [place] [address] Cadence Eric MD [facility] [place] [address] IMPLANT NEUROSTIMULATOR ELECTRODES, PERIPHERAL NERVE (WRVU 5.76) 04/14/2024 2:30 PM EST Office Visit [place] [address] Cadence Eric MD [facility] [place] [address] Scheduled Procedures Name Priority Associated Diagnoses Date/Ti [...] Associated Diagnosis Comments INTRATHECAL PUMP REFILL Routine 08/10/2019 documented in this encounter Results * INTRATHECAL PUMP REFILL (08/10/2019) Cadence Eric MD PROCEDURE/MINOR S URGICAL ORDERABLES documented in this encounter Visit Diagnoses Diagnosis Postlaminectomy syndrome of lumbar region Postlaminectomy syndrome, lumbar region Saphenous neuralgia, right documented in this encounter Care Teams Donation Worker Relationship Specialty Start Date End Date Bob Day MD [address] [place] [address] PCP - General Family Medicine 01/18/18 07/26/20 documented as of this encounter
--- OUTSIDE RECORDS SUMMARY | 2024-04-05 16:30 | XMS_ITS | Encounter Summary ---
Author Organization [facility] Address [facility] [place] [address] Care Team Providers Care Novelty Chain Maker Name Role Phone Bob Day MD Primary Care Provider [phone] [phone] Reason for Visit * Auth/Cert Specialty Diagnoses / Procedures Referred By Conttom t Referred To Contact Diagnoses Pump Refill Procedures PRO ELECTRONIC PUMP ANALYSIS W REPROGRAMMING AND REFILL BY MD/ENERGY CONSERVATION SPECIALIST ELECTRONIC HERNANDEZ PROG., PUMP- DRUG INFUS; W/ REPROGRAM & REFILL REQ (WRVU 0.9) Referral ID Status Reason Start Date Expiration Date Visits Re quested Visits Authorized [id number] 1 1 Encounter Details Date Type Department Care Team (Late st Contact Info) Description 03/30/2019 12:15 PM EST Ancillary [place] [address] Karl Becker MD [facility] [place] [address] Pain Social History Tobacco Use Types Packs/Day [...] AM EST Hospital Encounter Outpatient [place] [address] Cadence Eric MD [facility] [place] [address] 04/06/2024 11:30 AM EST - 04/06/2024 12:50 PM EST Surgery Outpatient [place] [address] Cadence Eric MD [facility] [place] [address] IMPLANT NEUROSTIMULATOR ELECTRODES, PERIPHERAL NERVE (WRVU 5.76) 04/14/2024 2:30 PM EST Office Visit [place] [address] Cadence Eric MD [facility] [place] [address] Pending Results Name Type Priority Associated Diagnoses Date /Time Film Library- Storage Only pain Clinic C-Arm Imaging Storage Only Routine Pain 03/30/2019 12:05 PM EST Scheduled Procedures Name Priority Associated Diagnoses Date/Ti ok IMPLANT NEUROSTIMULATOR ELECTRODES, PERIPHERAL NERVE (WRVU 5.76) Yes Saphenous neuralgia, right 04/06/2024 11:30 AM EST IMPLANT NEUROSTIMULATOR ELECTRODES, PERIPHERAL NERVE (WRVU 5.76) Saphenous neuralgia, 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
--- OUTSIDE RECORDS SUMMARY | 2024-04-05 16:30 | XMS_ITS | Encounter Summary ---
Author Organization [facility] [place] [address] Care Team Providers Care Fountain Operator Name Role Phone Bob Day MD Primary Care Provider [phone] [phone] Encounter Details Date Type Department Care Team (Late st Contact Info) Description 07/28/2019 Telephone [facility] [place] [address] Karla Swann, RN Social History Tobacco Use Types Packs/Day [...] encounter Miscellaneous Notes * Telephone Encounter - Karla Swann RN - 07/28/2019 12:11 PM EDT Outgoing call to patient to follow up with her on her and possible COVID 19 testing site and results. . Patient states My went to [facility] has a testing site set up that's where hewent his PCP Dr. Darden sent him also we don't know results yet we where told by Thursday or Thursday Nurse ask patient if she can call us back when she knows. Patient states I am planning on calling back and letting I think her name is Salina know the results as soon as we know. Nurse advises we will await a call back. message forwarded to Izabel documented in this encounter Plan of Treatment Upcoming Encounters Date Type Department Care Team (Latest Contact Info) Description 04/06/2024 11:30 AM EST Hospital Encounter [place] [address] Cadence Eric MD [facility] [place] [address] 04/06/2024 11:30 AM EST - 04/06/2024 12:50 PM EST Surgery [place] [address] Cadence Eric MD [facility] [place] [address] IMPLANT NEUROSTIMULATOR ELECTRODES, PERIPHERAL NERVE (WRVU 5.76) 04/14/2024 2:30 PM EST Office Visit [facility] [place] [address] Cadence Eric MD [facility] [place] [address] Scheduled Procedures Name Priority Associated Diagnoses Date/Ti [...] on filedocumented in this encounter Care Teams Fountain Operator Relationship Specialty Start Date End Date Bob Day MD [address] [place] [address] PCP - General Family Medicine 01/18/18 07/26/20 documented as of this encounter
--- OUTSIDE RECORDS SUMMARY | 2024-04-05 16:30 | XMS_ITS | Encounter Summary ---
Author Organization [facility] Address [facility] [place] [address] Care Team Providers Care Reaming Machine Operator For Plastic Name Role Phone Bob Day MD Primary Care Provider [phone] [phone] Encounter Details Date Type Department Care Team (Late st Contact Info) Description 10/14/2019 Telephone [facility] [place] [address] Cielo Doty Social History Tobacco Use Types Packs/Day Years [...] AM EST Hospital Encounter [place] [address] Cadence Eric MD [facility] [place] [address] 04/06/2024 11:30 AM EST - 04/06/2024 12:50 PM EST Surgery [place] [address] Cadence Eric MD [facility] [place] [address] IMPLANT NEUROSTIMULATOR ELECTRODES, PERIPHERAL NERVE (WRVU 5.76) 04/14/2024 2:30 PM EST Office Visit [place] [address] Cadence Eric MD [facility] [place] [address] Scheduled Procedures Name Priority Associated Diagnoses Date/Ti [...] on filedocumented in this encounter Care Teams Reaming Machine Operator For Plastic Relationship Specialty Start Date End Date Bob Day MD [address] [place] [address] PCP - General Family Medicine 01/18/18 07/26/20 documented as of this encounter
--- OUTSIDE RECORDS SUMMARY | 2024-04-05 16:30 | XMS_ITS | Encounter Summary ---
Author Organization [facility] Address [facility] [place] [address] Care Team Providers Care Sea Shell Gatherer Name Role Phone Bob Day MD Primary Care Provider [phone] [phone] Encounter Details Date Type Department Care Team (Late st Contact Info) Description 08/01/2019 Telephone [facility] [place] [address] Karla Swann RN Social History Tobacco Use Types Packs/Day [...] Telephone Encounter - Karla Swann RN - 08/01/2019 10:50 AM EDT Incoming call from patient she states I am calling back to let you know that my test for COVID 19 came back negative so I am all set to come to my appointment on August 09 Nurse advises she will forward this message to génesis and spine schedulers to let them know. documented in this encounter Plan of Treatment Upcoming Encounters Date Type Department Care Team (Latest Contact Info) Description 04/06/2024 11:30 AM EST Hospital Encounter [place]patient [place] [address] Cadence Eric MD [facility] PAIN MANAGEMENT [place] [address] 04/06/2024 11:30 AM EST - 04/06/2024 12:50 PM EST Surgery [place]patient [place] [address] Cadence Eric MD [facility] PAIN MANAGEMENT [place] [address] IMPLANT NEUROSTIMULATOR ELECTRODES, PERIPHERAL NERVE (WRVU 5.76) 04/14/2024 2:30 PM EST Office Visit [facility] [place] [address] Cadence Eric MD [facility] PAIN MANAGEMENT [place] [address] Scheduled Procedures Name Priority Associated Diagnoses Date/Ti [...] on filedocumented in this encounter Care Teams Sea Shell Gatherer Relationship Specialty Start Date End Date Bob Day MD [address] [place] [address] PCP - General Family Medicine 01/18/18 07/26/20 documented as of this encounter
--- OUTSIDE RECORDS SUMMARY | 2024-04-05 16:30 | XMS_ITS | Encounter Summary ---
Author Organization [facility] Address [facility] [place] [address] Care Team Providers Care Content Strategy Lead Name Role Phone Bob Day MD Primary Care Provider [phone] [phone] Encounter Details Date Type Department Care Team (Late st Contact Info) Description 05/18/2019 1:00 PM EST Legacy Encounter Primary Care at [address] [address] Bob Day MD [address] [place] [address] [place] [address] Social History Tobacco Use Types Packs/Day Years [...] Hospital Encounter [place]patient [place] [address] Cadence Eric MD [facility] [place] [address] 04/06/2024 11:30 AM EST - 04/06/2024 12:50 PM EST Surgery [place] [address] Cadence Eric MD [facility] [place] [address] IMPLANT NEUROSTIMULATOR ELECTRODES, PERIPHERAL NERVE (WRVU 5.76) 04/14/2024 2:30 PM EST Office Visit [facility] [place] [address] Cadence Eric MD [facility] [place] [address] Scheduled Procedures Name Priority Associated Diagnoses Date/Ti [...] filedocumented in this encounter Care Teams Content Strategy Lead Relationship Specialty Start Date End Date Bob Day MD [address] [place] [address] PCP - General Family Medicine 01/18/18 07/26/20 documented as of this encounter
--- OUTSIDE RECORDS SUMMARY | 2024-04-05 16:30 | XMS_ITS | Encounter Summary ---
[facility] [place] [address] Care Team Providers Care Second Time Worker Name Role Phone Bob Day MD Primary Care Provider [phone] Encounter Details Date Type Department Care Team (Late st Contact Info) Description 10/28/2019 Telephone [facility] [place] [address] Etelvina Bishop RN Social History Tobacco Use [...] Encounter - Etelvina Bishop RN - 10/28/2019 1:17 PM EDT I called Etelvina back and gave her the phone # that Dr Greco told me to give her. I told her that Dr Greco said if there is no alarms and it is a lock out then to call the rep. documented in this encounter Plan of Treatment Upcoming Encounters Date Type Department Care Team (Latest Contact Info) Description 04/06/2024 11:30 AM [facility] Hospital Encounter Outpatient [place] [address] Cadence Eric MD [facility] [place] [address] 04/06/2024 11:30 AM EST - 04/06/2024 12:50 PM EST Surgery Outpatient [place] [address] Cadence Eric MD [facility] [place] [address] IMPLANT NEUROSTIMULATOR ELECTRODES, PERIPHERAL NERVE (WRVU 5.76) 04/14/2024 2:30 PM EST Office Visit [facility] [place] [address] Cadence Eric MD [facility] [place] [address] Scheduled Procedures Name Priority Associated Diagnoses Date/Ti [...] on filedocumented in this encounter Care Teams Second Time Worker Relationship Specialty Start Date End Date Bob Day MD [address] [place] [address] PCP - General Family Medicine 01/18/18 07/26/20 documented as of this encounter
--- OUTSIDE RECORDS SUMMARY | 2024-04-05 16:30 | XMS_ITS | Encounter Summary ---
Author Organization [facility] Address [facility] [place] [address] Care Team Providers Care Converting Technician Name Role Phone Bob Day MD Primary Care Provider [phone] [phone] Encounter Details Date Type Department Care Team (Late st Contact Info) Description 11/15/2019 9:30 AM EDT Legacy Encounter Primary Care at [address] [address] Landry Berry PA [address] [place] [address] [place] [address] Social History Tobacco Use Types Packs/Day Years [...] AM EST Hospital Encounter [place] [address] Cadence Eric MD [facility] [place] [address] 04/06/2024 11:30 AM EST - 04/06/2024 12:50 PM EST Surgery [place]patient [place] [address] Cadence Eric MD [facility] [place] [address] IMPLANT NEUROSTIMULATOR ELECTRODES, PERIPHERAL NERVE (WRVU 5.76) 04/14/2024 2:30 PM EST Office Visit [facility] [place] [address] Cadence Eric MD [facility] [place] [address] Scheduled Procedures Name Priority Associated Diagnoses Date/Ti [...] on filedocumented in this encounter Care Teams Converting Technician Relationship Specialty Start Date End Date Bob Day MD [address] [place] [address] PCP - General Family Medicine 01/18/18 07/26/20 documented as of this encounter
--- OUTSIDE RECORDS SUMMARY | 2024-04-05 16:30 | XMS_ITS | Encounter Summary ---
Author Organization [facility] [place] [address] Care Team Providers Care Director Of Rehabilitation And Wellness Name Role Phone Bob Day MD Primary Care Provider [phone] [phone] Reason for Referral * Surgical (Routine) - Specialty Diagnoses / Procedures Referred By Cindy wooten Referred To Contact Procedures INTRATHECAL PUMP REPROGRAMMING [facility] [place] [place] [address] Referral ID Status Reason Start Date Expiration Date V isits Requested Visits Authorized [id number] Consult, Test & Treat 10/14/2019 04/11/2020 1 1 Encounter Details Date Type Department Care Team (Late st Contact Info) Description 10/14/2019 External Results [facility] [place] [phone] Geovanna Greco MD [facility] [place] [address] Social History Tobacco Use Types Packs/Day Years [...] AM EST Hospital Encounter [place] [address] Cadence Eric MD [facility] [place] [address] 04/06/2024 11:30 AM EST - 04/06/2024 12:50 PM EST Surgery [place] [address] Cadence Eric MD [facility] [place] [address] IMPLANT NEUROSTIMULATOR ELECTRODES, PERIPHERAL NERVE (WRVU 5.76) 04/14/2024 2:30 PM EST Office Visit [place] [address] Cadence Eric MD [facility] [place] [address] Scheduled Procedures Name Priority Associated Diagnoses Date/Ti [...] Priority Date/Time Associated Diagnosis Comments INTRATHECAL PUMP REPROGRAMMING Routine 10/10/2019 documented in this encounter Results * INTRATHECAL PUMP REPROGRAMMING (10/10/2019) Geovanna Greco MD PROCEDURE/MINOR SURG ICAL ORDERABLES documented in this encounter Visit Diagnoses Not on filedocumented in this encounter Care Teams Director Of Rehabilitation And Wellness Relationship Specialty Start Date End Date Bob Day MD [address] [place] [address] PCP - General Family Medicine 01/18/18 07/26/20 documented as of this encounter
--- OUTSIDE RECORDS SUMMARY | 2024-04-05 16:30 | XMS_ITS | Encounter Summary ---
Author Organization [facility] Address [facility] [place] [address] Care Team Providers Care Public Health Worker Name Role Phone Bob Day MD Primary Care Provider [phone] [phone] Encounter Details Date Type Department Care Team (Late st Contact Info) Description 12/05/2019 1:00 PM EDT - 12/05/2019 1:59 PM EDT Surgery [place] [address] Karl Becker MD [facility] [place] [place] [address] ELECTRONIC HERNANDEZ PROG., PUMP- DRUG INFUS; W/ [...] REPROGRAM & REFILL REQ (WRVU 0.9) (N/A) It is normal that [...] proceed to your local emergency department. Flores Larkin RN documented in this encounter Medications at Time of Discharge Medication Sig Dispensed Refills Start Date End Date calcium carbonate-vitamin D3 (Os-Nico 500 + D3) 500mg (1,250mg) -600 unit Tablet Take 1 tablet by mouth Daily. 01/16/2016 Bifidobacterium infantis (ALIGN) 4 mg Capsule Take by mouth daily. 2 gummies daily=4MG NARCAN 4 mg/actuation Nora, Non-Aerosol instill 1 spray in 1 NOSTRIL if needed for opioid overdose may re... (REFER TO PRESCRIPTION NOTES). 0 12/08/2018 multivitamin with minerals Tablet Take 1 tablet by mouth daily. morphine sulfate/D5W (MORPHINE IN D5W) 1 mg/mL Prefilled Pump [place] Inject as directed. Has intrathecal pump with [...] a week 0 12/06/2018 02/21/2020 flu vacc [id number],6mos up,/PF (FLUARIX QUAD , PF,) 60 mcg (15 mcg x 4)/0.5 [...] 315-200 mg-unit Tablet Take by mouth daily. 020 fenofibrate (TRICOR) 145 mg Tablet Take [...] WITH BX performed by NIKKI MAYORGA at [facility] ENDOSCOPY ??? PRO COLONOSCOPY, DIAGNOSTIC 09/23/2011 COLONOSCOPY, DIAGNOSTIC performed by NIKKI MAYORGA at [facility] ENDOSCOPY ??? PRO ELECTRONIC PUMP ANALYSIS W REPROGRAMMING AND REFILL BY /NAHID N/A 03/30/2019 ELECTRONIC HERNANDEZ PROG., PUMP- DRUG INFUS; W/ REPROGRAM & REFILL REQ MD (WRVU 0.9) performed by Karl Becker MD at [facility] PAIN MGMT MSO ??? PRO IMP SPINAL CANAL CATH Midline 03/23/2019 IMPLANT, REV OR REP TUNNELED INTRATHACAL OR EPIDURAL CATHETER (WRVU 6.05) performed by Karl Becker MD at [facility] MAIN OR ??? PRO INSERT/ REPLACE INFUSN PUMP, PROGRAMMABLE Right 03/23/2019 IMPLANT OR REPLACE PROG. PUMP-DRUG INFUSION (WRVU 5.6) performed by Melani Darden MD at [facility] ADEEL ??? PRO LAP, CHOLECYSTECTOMY/GRAPH N/A 10/18/2016 LAPAROSCOPIC CHOLECYSTECTOMY WITH CHOLANGIOGRAM (WRVU 11.47) performed by Tasia Umaña MD at [facility] MAIN OR ??? PRO LAP, VENTRAL HERNIA REPAIR, INCARCERATED N/A 07/12/2018 LAPAROSCOPIC HERNIA, VENTRAL, INCARCERATED, W-WO MESH (WRVU 14.94) performed by Izzy Blanco MD at [facility] MAIN OR ALLERGIES: Peanut, Peanut oil, [...] times a week 0 ??? flu vacc [id number],6mos up,/PF (FLUARIX QUAD 0870-6773, PF,) 60 mcg (15 mcg x 4)/0.5 mL Syringeinject 0.5 milliliters intramuscularly 0 ??? HAVRIX, PF, 1,440 SONIDO unit/mL Syringe inject 1 milliliter intramuscularly 0 ??? NARCAN 4 mg/actuation Nora, Non-Aerosol instill 1 spray in 1 NOSTRIL [...] (MORPHINE IN D5W) 1 mg/mL Prefilled Pump [place] Inject as directed. ??? oxyCODONE (ROXICODONE) 10 [...] planned Wanda Arredondo MD Pain Management Fellow [address] [address] / [facility] documented in this encounter Miscellaneous Notes * Op Note - Karl Becker MD - 12/05/2019 2:17 PM EDT Pain Management Operative Note Patient Name: Etelvina Cuadra : [id number] MR#: [id number] Case Date: 12/05/2019 Surgeon: Surgeon(s) and Role: [...] was in good position as well. Primary Lead Sewage Plant Operator: Karl Becker MD Soap Inspector: Wanda Arredondo MD Reason for Reprogramming: Interrogation [...] residual volume in pump: 8.1 mL Actual [place] volume: 9 mL Medication or Dose Changes: None Is dose change >30%? No Is concentration of drug different? No Empty syringe concentration verified by time checker: yes If concentration of drug is [...] instilled into the pump according to the central office supervisor's directions without difficulty. There was no [...] Becker. Wanda Arredondo MD Pain Management Fellow [address] [address] / [facility] documented in this encounter Plan of Treatment Upcoming Encounters Date Type Department Care Team (Latest Contact Info) Description 04/06/2024 11:30 AM EST Hospital Encounter Outpatient [place] [address] Cadence Eric MD [facility] [place] [address] 04/06/2024 11:30 AM EST - 04/06/2024 12:50 PM EST Surgery Outpatient [place] [address] Cadence Eric MD [facility] [place] [address] IMPLANT NEUROSTIMULATOR ELECTRODES, PERIPHERAL NERVE (WRVU 5.76) 04/14/2024 2:30 PM EST Office Visit [place] [address] Cadence Eric MD [facility] [place] [address] Scheduled Procedures Name Priority Associated Diagnoses Date/Ti [...] 12/06/2019 10:43 AM EDT Pain Anal Inf Service Order Taker W ReproRefil([id number]) 12/05/2019 1:33 PM EDT Pump documented in this encounter Results * Film Library- Storage Only pain Clinic C-Arm (12/06/2019 10:43 AM EDT) Narrative [facility]NOTE 2] - 12/06/2019 10:43 AM EDT See PACS for result report. Karl Becker MD IMG FILM LIBRARY ORD ERABLES [place], [place] documented in this encounter Visit Diagnoses Not on filedocumented in this encounter Care Teams Public Health Worker Relationship Specialty Start Date End Date Bob Day MD [address] [place] [id number] PCP - General Family Medicine 01/18/18 07/26/20 documented as of this encounter
--- OUTSIDE RECORDS SUMMARY | 2024-04-05 16:30 | XMS_ITS | Encounter Summary ---
Author Organization [facility] Address [facility] [place] [address] Care Team Providers Care Enrollment Services Dean Name Role Phone Bob Day MD Primary Care Provider [phone] [phone] Encounter Details Date Type Department Care Team (Late st Contact Info) Description 10/28/2019 [place]phone [place] [address] Geovanna Greco MD [facility] [place] [address] Social History Tobacco Use Types Packs/Day Years [...] encounter Miscellaneous Notes * Telephone Encounter - Geovanna Greco MD - 10/28/2019 4:16 PM EDT Patient called and reported she was having trouble with her pump PTM, she keeps getting locked out.She is currently receiving IT morphine 10mg/ml with 2mg daily simple continuous dose with 0.2mg [id number] PTM with maximum of 5 doses per 24 hours. She has been camping recently and needed PTM bolus later in the day . She typically uses first dosefrom 5-7AM when she first gets up, then second PTM around 10AM, followed by a dose around lunch time 1-2PM and 4-5PM is her 4th dose with typically 9:30PM being the last dose. However, with longer summer days, she has used her PTM as late as 11:30PM and the next day, she gets a message from her PTMstating that she is locked out for additional hours before she can administer a bolus. I explained to patient that she needs to come in the clinic for pump reprogramming. She will be added to my clinic schedule on Thursday at 2:30PM. Geovanna Greco MD Pain Management documented in this encounter Plan of Treatment Upcoming Encounters Date Type Department Care Team (Latest Contact Info) Description 04/06/2024 11:30 AM EST Hospital Encounter [place] [address] Cadence Eric MD [facility] [place] [address] 04/06/2024 11:30 AM EST - 04/06/2024 12:50 PM EST Surgery [place] [address] Cadence Eric MD [facility] [place] [address] IMPLANT NEUROSTIMULATOR ELECTRODES, PERIPHERAL NERVE (WRVU 5.76) 04/14/2024 2:30 PM EST Office Visit [place] [address] Cadence Eric MD [facility] [place] [address] Scheduled Procedures Name Priority Associated Diagnoses Date/Ti [...] on filedocumented in this encounter Care Teams Enrollment Services Dean Relationship Specialty Start Date End Date Bob Day MD [address] [place] [id number] PCP - General Family Medicine 01/18/18 07/26/20 documented as of this encounter
--- OUTSIDE RECORDS SUMMARY | 2024-04-05 16:30 | XMS_ITS | Encounter Summary ---
Author Organization [facility] Address [facility] [place] [address] Care Team Providers Care Hoister Name Role Phone Bob Day MD Primary Care Provider [phone] [phone] Reason for Visit * Auth/Cert Specialty Diagnoses / Procedures Referred By Cindy wooten Referred To Contact Diagnoses Postlaminectomy syndrome of lumbar region M96.1 Procedures PRO ELECTRONIC PUMP ANALYSIS W REPROGRAMMING AND REFILL BY /SOFTWARE QUALITY ASSURANCE ENGINEER ELECTRONIC HERNANDEZ PROG., PUMP- DRUG INFUS; W/ REPROGRAM & REFILL REQ (WRVU 0.9) Referral ID Status Reason Start Date Expiration Date Visits Re quested Visits Authorized [id number] 1 1 Encounter Details Date Type Department Care Team (Latest Contact Info) Description 10/10/2019 12:42 PM EDT - 10/10/2019 2:02 PM EDT Hospital [place] [phone] Geovanna Greco MD [facility] [place] [address] Pain; Postlaminectomy syndrome of lumbar region Discharge Disposition: [...] Sign Reading Time Taken Comments Blood Pressure 132/65 10/10/2019 1:20 PM EDT Pulse - - Temperature - - Respiratory Rate 18 10/10/2019 1:20 PM EDT Oxygen Saturation 100% 10/10/2019 1:20 PM EDT Inhaled Oxygen Concentration - - Weight 104.3 kg (230 lb) 10/10/2019 1:20 PM EDT Height 152.4 cm (5') 10/10/2019 1:20 PM EDT Body Mass Index 44.92 10/10/2019 1:20 PM EDT documented in this encounter Medications at Time of Discharge Medication Sig Dispensed Refills Start Date End Date calcium carbonate-vitamin D3 (Os-Nico 500 + D3) 500mg (1,250mg) -600 unit Tablet Take 1 tablet by mouth Daily. 01/16/2016 Bifidobacterium infantis (ALIGN) 4 mg Capsule Take by mouth daily. 2 gummies daily=4MG NARCAN 4 mg/actuation Wingate, Non-Aerosol instill 1 spray in 1 NOSTRIL if needed for opioid overdose may re... (REFER TO PRESCRIPTION NOTES). 0 12/08/2018 multivitamin with minerals Tablet Take 1 tablet by mouth daily. morphine sulfate/D5W (MORPHINE IN D5W) 1 mg/mL Prefilled Pump [place] Inject as directed. Has intrathecal pump with [...] a week 0 12/06/2018 02/21/2020 flu vacc [id number],6mos up,/PF (FLUARIX QUAD , PF,) 60 mcg [...] as of this encounter H&P Notes * Saray, Woody Méndez MD - 10/10/2019 12:52 PM EDT Patient Name: Etelvina Cuadra Patient Age: 58 y.o. Birthdate: 1960 Admit date: 10/10/2019 Attending Physician: No att. providers found PREPROCEDURE HISTORY AND PHYSICAL Date of Visit: October 10, 2019 Chief Complaint: Right flank pain over intrathecal pump HPI: Subjective Etelvina Cuadra is a 58 y.o. female who presents today for interrogation of her pump and troubleshooting her pain. She complains of pain along the surgical incision and feels as if the pump is flipping over. This all started last week on Thursday when she picked up her laundry hamper and felt the pump bulge out. She also complains of not being able to use all her PTM doses due to lockout and the time she is awake. Will reprogram today. She otherwise denies any changes to her health and has no febrile illness. The history is obtained from the patient, and I have reviewed medical records provided by the referring physician and located in the electronic medical record to fill in gaps in the patient's recollection of events, treatments and outcomes. LOCATION: Right lower quadrant PAIN LEVEL AT REST /10 with movement PAST MEDICAL HISTORY: Past Medical History: Diagnosis [...] 6.05) performed by Karl Becker MD at [facility] MAIN OR ??? PRO INSERT/ REPLACE INFUSN PUMP, PROGRAMMABLE Right 03/23/2019 IMPLANT OR REPLACE PROG. PUMP-DRUG INFUSION (WRVU 5.6) performed by Melani Darden MD at [facility] ADEEL ??? PRO LAP, CHOLECYSTECTOMY/GRAPH N/A 10/18/2016 LAPAROSCOPIC CHOLECYSTECTOMY WITH CHOLANGIOGRAM (WRVU 11.47) performed by Tasia Umaña MD at [facility] MAIN OR ??? PRO LAP, VENTRAL HERNIA REPAIR, INCARCERATED N/A 07/12/2018 LAPAROSCOPIC HERNIA, VENTRAL, INCARCERATED, W-WO MESH (WRVU 14.94) performed by Izzy Blanco MD at [facility] MAIN OR ALLERGIES: Peanut; Peanut oil; Rice; Wheat; Wheat bran; Wheat flour; Wheat germ oil; Wheat starch; Canine protein containing products; Hazelnut; Hydrocodone; Hydrocodone- acetaminophen; Hydrocodone-ibuprofen; Rofecoxib; Tetracycline; Tetracyclines; and Wool MEDICATIONS: No current facility-administered medications on file prior to encounter. Current Outpatient Medications on File Prior to Encounter Medication Sig Dispense Refill ??? aspirin EC (Aspirin Low Dose) 81 [...] times a week 0 ??? flu vacc [id number],6mos up,/PF (FLUARIX QUAD 2836-2078, PF,) 60 mcg (15 mcg x 4)/0.5 mL Syringeinject 0.5 milliliters intramuscularly 0 ??? HAVRIX, PF, 1,440 SONIDO unit/mL Syringe inject 1 milliliter intramuscularly 0 ??? NARCAN 4 mg/actuation Wingate, Non-Aerosol instill 1 spray in 1 NOSTRIL [...] (MORPHINE IN D5W) 1 mg/mL Prefilled Pump [place] Inject as directed. ??? oxyCODONE (ROXICODONE) 10 [...] Last attempt to quit: 09/23/1991 Years since quittin.0 ??? Smokeless tobacco: Never Used Substance and Sexual Activity ??? Alcohol use: No ??? Drug use: No ??? Sexual activity: Not on file Lifestyle ??? Physical activity Days per week: Not on file Minutes per session: Not on file ??? Stress: Not on file Relationships ??? Social connections Talks on phone: Not on file Gets together: Not on file Attends restoration service: Not on file Active member of [...] History Narrative ??? Not on file ROS: Review of Systems: N = No Y = Yes GENERAL HEENT CV PULM x All negative x All negative x All negative x All negative Weight loss Headache Angina Non-productive cough Weight gain Vision change Palpitations Productive cough Fevers Sinus congestion Presyncope Wheezing Chills Rhinorrhea Syncope Hemoptysis Diaphoresis Epistaxis LE edema Pleuritic pain Poor sleep Post-nasal drip Claudication Orthopnea Fatigue Throat clearing Paroxysmal dyspnea Dry eyes/mouth Platypnea Otalgia Hoarseness MSK RENAL ENDO GI/NUTRITION All negative x All negative x All negative x All negative x Arthralgias Polyuria Heat intolerance GERD Myalgias Oliguria Cold intolerance Dysphagia Deformity Hematuria Polydipsia Odynophagia Stiffness Flank pain Polyphagia Abdominal discomfort Wasting Dysuria Cushingoid Constipation Nocturia Hyperglycemia Diarrhea Hypoglycemia Nausea Steatorrhea LYMPH SKIN NEURO PSYCH x All negative x All negative x All negative All negative Swollen nodes Rash Seizures Depressed affect Tender nodes Ulcers Tremors Occupational stress Diffuse nodes Purpura Spasticity Troubled relationship(s) Local nodes Pigmented lesion Focal weakness Insomnia Telangiectasias Diplopia x Anxiety Angiomata Paresthesias Absenteeism Tanned skin PHYSICAL EXAM: BP 132/65 Resp 18 Ht 152.4 cm (5') Wt 104.3 kg (230 lb) SpO2 100% BMI 44.92 kg/m?? Physical Exam Constitutional: Oriented to person, place, and time. Appears well-developed and well-nourished. Head: Normocephalic and atraumatic. Pulmonary/Chest: Effort normal. No respiratory distress. No stridor. Neurological: Alert and oriented to person, place, and time. No cranial nerve deficit. Skin: Skin is warm. No rash noted. No erythema. RADIOLOGIC DATA: Procedural Xray reviewed LABS/DX RESULTS: Last 3 wbc, hgb, hct plt No results for input(s): WBC, HGB, HCT, PLATELET in the last 7068 hours. ASSESSMENT: Assessment Etelvina Cuadra is a 58 y.o. female with: 1. Pain Here for pump interrogation, reprogramming, and examination with fluoroscopic imaging. PLAN: No contraindications to proceed, will perform planned procedure. Informed consent obtained and allergies reviewed. 1. Pain #RLQ pain overlying pump - appears to originate from the scar, no apparent sign of infection, couldbe fibrous band or hyperalgesia along incision. Will prescribe Gabapentin 300mg to take QHS, can increase to TID if needed. #Chronic pain - has been unable to use all prescribed PTM pump doses, will decrease lockout to x8grlhy with max of 5 doses daily. Discussed the need to decrease oral opioid use. Woody So M.D. Pain Management Fellow [address] [address] phone: [phone] fax: [phone] [facility] documented in this encounter Miscellaneous Notes * Op Note - Woody So MD - 10/10/2019 2:02 PM EDT Pain Management Operative Note Patient Name: Etelvina Cuadra : [id number] MR#: [id number] Case Date: 10/10/2019 Surgeon: Surgeon(s) and Role: * Geovanna Greco MD - Primary Present on Admission: ??? Postlaminectomy syndrome of lumbar region Postoperative diagnosis: Postlaminectomy syndrome of lumbar region Procedure(s) (LRB): ELECTRONIC HERNANDEZ PROG., PUMP- DRUG INFUS; W/ REPROGRAM & REFILL MILAGRO DAWSON (WRVU 0.9) (N/A) INTRATHECAL PUMP INTERROGATION NOTE WITH REPROGRAMMING Primary Wall Insulation Sprayer: Woody So MD Engineer Conductor: Geovanna Greco MD Reason for Reprogramming: Interrogation to confirm no pump log errors and to decrease lockout time for PTM doses Diagnosis: Post-laminectomy syndrome Functional improvement with the pump: Able to complete ADL's with less pain VAS today: 6/10 Side effects from pump: Pain at pump site at scar location Changes since last refill: Will decrease PTM lockout from 4hr to 3hr with same 5 total doses. Prescription [...] position. Pre-Refill Telemetry Programming Reading: Drugs/Concentrations: Morphine 10mg/mL- Preservative Free - Daily Dose: 2mg with mPTM 0.2mg q4hr PRN 5/day Post-Refill Telemetry Programming Reading: Drugs/Concentrations: Morphine 10mg/mL - Preservative Free - Daily Dose: 2mg with mPTM 0.2mg q3hr PRN 5/day Brand/Compound: Compound. Pump Capacity: 40 mL Computer predicted residual volume in pump: 23.4mL Medication or Dose Changes: Decreased lockout time to 3 hours Is dose change >30%? No Is concentration of drug different? No Fluoroscopy was used to verify the pumps position. The pump appears to be in the appropriate location and oriented appropriately. Battery alarms reviewed and were appropriately enabled and in working order. Patient tolerated the procedure well and was discharged from the [facility]. Follow-up with Dr. Becker Associated attestation - Geovanna Greco MD - 10/10/2019 4:30 PM EDT Attestation: Case Date: 10/10/2019 I was the supervising attending for this procedure and I was present during the entire time. Geovanna Greco MD 10/10/2019 documented in this encounter Plan of Treatment Upcoming Encounters Date Type Department Care Team (Latest Contact Info) Description 04/06/2024 11:30 AM [facility] Hospital Encounter [place] [address] Cadence Eric MD [facility] [place] [address] 04/06/2024 11:30 AM EST - 04/06/2024 12:50 PM EST Surgery [place] [address] Cadence Eric MD [facility] [place] [address] IMPLANT NEUROSTIMULATOR ELECTRODES, PERIPHERAL NERVE (WRVU 5.76) 04/14/2024 2:30 PM EST Office Visit [facility] [place] [address] Cadence Eric MD [facility] [place] [address] Scheduled Procedures Name Priority Associated Diagnoses Date/Ti [...] STORAGE ONLY PAIN CLINIC C ARM Routine 10/10/2019 3:55 PM EDT Pain documented in this encounter Results * Film Library- Storage Only pain Clinic C-Arm (10/10/2019 3:55 PM EDT) Narrative [facility] - 10/10/2019 3:55 PM EDT See PACS for result report. Geovanna Greco MD IMG FILM LIBRARY ORD ERABLES [place], [place] documented in this encounter Visit Diagnoses Diagnosis Postlaminectomy syndrome of lumbar region- Primary Postlaminectomy syndrome, lumbar region Pain Generalized pain Saphenous neuralgia, right documented in this encounter Care Teams Hoister Relationship Specialty Start Date End Date Bob Day MD [address] [place] [address] PCP - General Family Medicine 01/18/18 07/26/20 documented as of this encounter
--- OUTSIDE RECORDS SUMMARY | 2024-04-05 16:30 | XMS_ITS | Encounter Summary ---
Author Organization [facility] [place] [address] Care Team Providers Care Educational Paraprofessional Name Role Phone Bob Day MD Primary Care Provider [phone] [phone] Encounter Details Date Type Department Care Team (Late st Contact Info) Description 10/07/2019 Telephone [facility] [place] [phone] Etelvina Bishop RN Social History Tobacco Use [...] Telephone Encounter - Etelvina Bishop RN - 10/07/2019 3:08 PM EDT Etelvina called and said that she bent over to fruit picker machine operator a heavy laundrybasket and it felt like her pump flipped. Really hurt at the time and now has burning sensation. Etelvina said she can't find it with hercontroller now. I told her that someone will be calling her. Please advise. documented in this encounter Plan of Treatment Upcoming Encounters Date Type Department Care Team (Latest Contact Info) Description 04/06/2024 11:30 AM EST Hospital Encounter [place]patient [place] [address] Cadence Eric MD [facility] [place] [address] 04/06/2024 11:30 AM EST - 04/06/2024 12:50 PM EST Surgery [place] [address] Cadence Eric MD [facility] [place] [address] IMPLANT NEUROSTIMULATOR ELECTRODES, PERIPHERAL NERVE (WRVU 5.76) 04/14/2024 2:30 PM EST Office Visit [facility] [place] [address] Cadence Eric MD [facility] [place] [address] Scheduled Procedures Name Priority Associated Diagnoses Date/Ti [...] on filedocumented in this encounter Care Teams Educational Paraprofessional Relationship Specialty Start Date End Date Bob Day MD [address] [place] [address] PCP - General Family Medicine 01/18/18 07/26/20 documented as of this encounter
--- OUTSIDE RECORDS SUMMARY | 2024-04-05 16:30 | XMS_ITS | Encounter Summary ---
Author Organization [facility] Address [facility] [place] [address] Care Team Providers Care Sanitation Technician Name Role Phone Bob Day MD Primary Care Provider [phone] [phone] Encounter Details Date Type Department Care Team (Late st Contact Info) Description 12/05/2019 1:45 PM EDT Ancillary Procedure [place] [address] Social History Tobacco Use Types Packs/Day Years [...] AM EST Hospital Encounter Outpatient [place] [address] Cadence Eric MD [facility] [place] [address] 04/06/2024 11:30 AM EST - 04/06/2024 12:50 PM EST Surgery Outpatient [place] [phone] Cadence Eric MD [facility] [place] [address] IMPLANT NEUROSTIMULATOR ELECTRODES, PERIPHERAL NERVE (WRVU 5.76) 04/14/2024 2:30 PM EST Office Visit [place] [address] Cadence Eric MD [facility] [place] [address] Scheduled Procedures Name Priority Associated Diagnoses Date/Ti [...] ARM Routine 12/06/2019 10:43 AM EDT Pain documented in this encounter Results * Film Library- Storage Only pain Clinic C-Arm (12/06/2019 10:43 AM EDT) Narrative [facility] - 12/06/2019 10:43 AM EDT See PACS for result report. Karl Becker MD IMG FILM LIBRARY ORD ERABLES [place], [place] documented in this encounter Visit Diagnoses Not on filedocumented in this encounter Care Teams Sanitation Technician Relationship Specialty Start Date End Date Bob Day MD [address] [place] [address] PCP - General Family Medicine 01/18/18 07/26/20 documented as of this encounter
--- OUTSIDE RECORDS SUMMARY | 2024-04-05 16:30 | XMS_ITS | Encounter Summary ---
Author Organization [facility] Address [facility] [address] Care Team Providers Care Purchase Order Checker Name Role Phone Bob Day MD Primary Care Provider [phone] [phone] Encounter Details Date Type Department Care Team (Late st Contact Info) Description 10/28/2019 Telephone [facility] [place] [phone] Etelvina Bishop RN Social History Tobacco Use [...] Encounter - Etelvina Bishop RN - 10/28/2019 12:36 PM EDT Etelvina called and left a VM that her pump wasn't letting her get her bolus as it was supposed to. Etelvina said that the second bolus came up as needing to wait 5 hours and 16 seconds. I told her to call the rep and I would forward the message to Dr Greco, Dr So and Opal Flannery APRN and someone will get back to her. Please advise. documented in this encounter Plan of Treatment Upcoming Encounters Date Type Department Care Team (Latest Contact Info) Description 04/06/2024 11:30 AM EST Hospital Encounter [place] [address] Cadence Eric MD [facility] [place] [address] 04/06/2024 11:30 AM EST - 04/06/2024 12:50 PM EST Surgery [place] [address] Cadence Eric MD [facility] [place] [address] IMPLANT NEUROSTIMULATOR ELECTRODES, PERIPHERAL NERVE (WRVU 5.76) 04/14/2024 2:30 PM EST Office Visit [facility] [place] [address] Cadence Eric MD [facility] [place] [address] Scheduled Procedures Name Priority Associated Diagnoses Date/Ti [...] on filedocumented in this encounter Care Teams Purchase Order Checker Relationship Specialty Start Date End Date Bob Day MD [address] [place] [address] PCP - General Family Medicine 01/18/18 07/26/20 documented as of this encounter
--- OUTSIDE RECORDS SUMMARY | 2024-04-05 16:30 | XMS_ITS | Encounter Summary ---
Author Organization [facility] Address [facility] [place] [address] Care Team Providers Care Board Mill Supervisor Name Role Phone Bob Day MD Primary Care Provider [phone] [phone] Encounter Details Date Type Department Care Team (Late st Contact Info) Description 05/18/2019 [facility] Conversion Results [address] [place] [phone] [facility] Conversion, Flowsheet Provider, Social History Tobacco [...] Reading Time Taken Comments Blood Pressure 120/75 05/18/2019 12:00 AM EST Sourced from COUNTS INCLUDE [facility]S AT [facility] Conversion Pulse - - Temperature - - Respiratory Rate - - Oxygen Saturation - - Inhaled Oxygen Concentration - - Weight 107.1 kg (236 lb 3.2 oz) 05/18/2019 12:00 AM EST Sourced from [facility] Conversion Height 152 cm (4' 11.84) 05/18/2019 12 :00 AM EST Sourced from [facility] Conversion Body Mass Index 46.37 05/18/2019 12:00 AM EST documented in this encounter Plan of Treatment Upcoming Encounters Date Type Department Care Team (Latest Contact Info) Description 04/06/2024 11:30 AM EST Hospital Encounter Outpatient [place] [address] Cadence Eric MD [facility] [place] [address] 04/06/2024 11:30 AM EST - 04/06/2024 12:50 PM EST Surgery Outpatient [place] [address] Cadence Eric MD [facility] [place] [address] IMPLANT NEUROSTIMULATOR ELECTRODES, PERIPHERAL NERVE (WRVU 5.76) 04/14/2024 2:30 PM EST Office Visit [place] [address] Cadence Eric MD [facility] [place] [address] Scheduled Procedures Name Priority Associated Diagnoses Date/Ti [...] on filedocumented in this encounter Care Teams Board Mill Supervisor Relationship Specialty Start Date End Date Bob Day MD [address] [place] [address] PCP - General Family Medicine 01/18/18 07/26/20 documented as of this encounter
--- OUTSIDE RECORDS SUMMARY | 2024-04-05 16:30 | XMS_ITS | Encounter Summary ---
Author Organization [facility] [place] [address] Care Team Providers Care Record Systems Analyst Name Role Phone Bob Day MD Primary Care Provider [phone] [phone] Reason for Visit * Auth/Cert Specialty Diagnoses / Procedures Referred By Cindy t Referred To Contact Diagnoses Postlaminectomy syndrome of lumbar region M96.1 Procedures PRO ELECTRONIC PUMP ANALYSIS W REPROGRAMMING AND REFILL BY /CHILDREN COUNSELOR ELECTRONIC HERNANDEZ PROG., PUMP- DRUG INFUS; W/ REPROGRAM & REFILL REQ (WRVU 0.9) Referral ID Status Reason Start Date Expiration Date Visits Re quested Visits Authorized [id number] 1 1 Encounter Details Date Type Department Care Team (Late st Contact Info) Description 10/10/2019 12:15 PM EDT Ancillary [place] [phone] Social History Tobacco Use Types Packs/Day Years [...] Hospital Encounter [place]patient [place] [phone] Cadence Eric MD [facility] [place] [address] 04/06/2024 11:30 AM EST - 04/06/2024 12:50 PM EST Surgery [place] [address] Cadence Eric MD [facility] [place] [address] IMPLANT NEUROSTIMULATOR ELECTRODES, PERIPHERAL NERVE (WRVU 5.76) 04/14/2024 2:30 PM EST Office Visit [place] [phone] Cadence Eric MD [facility] [place] [address] Scheduled Procedures Name Priority Associated Diagnoses Date/Ti [...] Clinic C-Arm (10/10/2019 3:55 PM EDT) Narrative [facility] - 10/10/2019 3:55 PM EDT See PACS for result report. Geovanna Greco MD IMG FILM LIBRARY ORD ERABLES [place], [place] documented in this encounter Visit Diagnoses Not on filedocumented in this encounter Care Teams Record Systems Analyst Relationship Specialty Start Date End Date Bob Day MD [address] [place] [address] PCP - General Family Medicine 01/18/18 07/26/20 documented as of this encounter
--- OUTSIDE RECORDS SUMMARY | 2024-04-05 16:30 | XMS_ITS | Encounter Summary ---
Author Organization [facility] Address [facility] [place] [address] Care Team Providers Care Civil Cad Designer Name Role Phone Bob Day MD Primary Care Provider [phone] [phone] Encounter Details Date Type Department Care Team (Late st Contact Info) Description 11/14/2019 [facility] Conversion Results [address] [place] [phone] [facility] Conversion, Flowsheet Provider, Social History Tobacco [...] Sign Reading Time Taken Comments Blood Pressure 100/65 11/14/2019 12:00 AM EDT Sourced from [facility] Conversion Pulse - - Temperature - - Respiratory Rate - - Oxygen Saturation - - Inhaled Oxygen Concentration - - Weight 109.7 kg (241 lb 12.8 oz) 11/14/2019 12:00 AM EDT Sourced from [facility] Conversion Height 152 cm (4' 11.84) 11/14/2019 12 :00 AM EDT Sourced from [facility] Conversion Body Mass Index 47.47 11/14/2019 12:00 AM EDT documented in this encounter Plan of Treatment Upcoming Encounters Date Type Department Care Team (Latest Contact Info) Description 04/06/2024 11:30 AM [facility] Hospital Encounter [place] [address] Cadence Eric MD [facility] [place] [address] 04/06/2024 11:30 AM EST - 04/06/2024 12:50 PM EST Surgery Outpatient [place] [address] Cadence Eric MD [facility] [place] [address] IMPLANT NEUROSTIMULATOR ELECTRODES, PERIPHERAL NERVE (WRVU 5.76) 04/14/2024 2:30 PM EST Office Visit [place] [address] Cadence Eric MD [facility] [address] Scheduled Procedures Name Priority Associated Diagnoses Date/Ti [...] on filedocumented in this encounter Care Teams Civil Cad Designer Relationship Specialty Start Date End Date Bob Day MD [address] [place] [address] PCP - General Family Medicine 01/18/18 07/26/20 documented as of this encounter
--- OUTSIDE RECORDS SUMMARY | 2024-04-05 16:30 | XMS_ITS | Encounter Summary ---
Author Organization [facility] Address [facility] [place] [address] Care Team Providers Care Chemical Weigher Name Role Phone Bob Day MD Primary Care Provider [phone] [phone] Encounter Details Date Type Department Care Team (Late st Contact Info) Description 09/29/2019 [facility] Conversion Results [address] [place] [phone] [facility] Conversion, Flowsheet Provider, Social [...] Sign Reading Time Taken Comments Blood Pressure 120/77 09/29/2019 12:00 AM EDT Sourced from [facility] Conversion Pulse - - Temperature - - Respiratory Rate - - Oxygen Saturation - - Inhaled Oxygen Concentration - - Weight 110 kg (242 lb 9.6 oz) 09/29/2019 12:00 AM EDT Sourced from [facility] Conversion Height 152 cm (4' 11.84) 09/29/2019 12 :00 AM EDT Sourced from [facility] Conversion Body Mass Index 47.63 09/29/2019 12:00 AM EDT documented in this encounter Plan of Treatment Upcoming Encounters Date Type Department Care Team (Latest Contact Info) Description 04/06/2024 11:30 AM [facility] Hospital Encounter Outpatient [place] [address] Cadence Eric MD [facility] [place] [address] 04/06/2024 11:30 AM EST - 04/06/2024 12:50 PM EST Surgery Outpatient [place] [address] Cadence Eric MD [facility] [place] [address] IMPLANT NEUROSTIMULATOR ELECTRODES, PERIPHERAL NERVE (WRVU 5.76) 04/14/2024 2:30 PM EST Office Visit [facility] [place] [address] Cadence Eric MD [facility] [place] [address] Scheduled Procedures Name Priority Associated Diagnoses Date/Ti [...] on filedocumented in this encounter Care Teams Chemical Weigher Relationship Specialty Start Date End Date Bob Day MD [address] [place] [address] PCP - General Family Medicine 01/18/18 07/26/20 documented as of this encounter
--- OUTSIDE RECORDS SUMMARY | 2024-04-05 16:30 | XMS_ITS | Encounter Summary ---
Author Organization [facility] Address [facility] [place] [address] Care Team Providers Care Computer Programmer Name Role Phone Bob Day MD Primary Care Provider +1 [phone] Reason for Visit * Auth/Cert Specialty Diagnoses / Procedures Referred By Cindy wooten Referred To Contact Diagnoses Postlaminectomy syndrome of lumbar region M96.1 Procedures PRO ELECTRONIC PUMP ANALYSIS W REPROGRAMMING AND REFILL BY /NAHID ELECTRONIC HERNANDEZ PROG., PUMP- DRUG INFUS; W/ REPROGRAM & REFILL REQ (WRVU 0.9) Referral ID Status Reason Start Date Expiration Date Visits Re quested Visits Authorized [id number] 1 1 Encounter Details Date Type Department Care Team (Late st Contact Info) Description 10/10/2019 12:15 PM EDT - 10/10/2019 1:00 PM EDT [place] [phone] Geovanna Greco MD [facility] [place] [address] ELECTRONIC HERNANDEZ PROG., PUMP- DRUG INFUS; W/ REPROGRAM & REFILL REJohn DAWSON (WRVU 0.9) Social History Tobacco Use [...] daily. 2 gummies daily=4MG NARCAN 4 mg/actuation Basehor, Non-Aerosol instill 1 spray in 1 NOSTRIL if needed for opioid overdose may re... (REFER TO PRESCRIPTION NOTES). 0 12/08/2018 multivitamin with minerals Tablet Take 1 tablet by mouth daily. morphine sulfate/D5W (MORPHINE IN D5W) 1 mg/mL Prefilled Pump [place] Inject as directed. Has intrathecal pump with [...] a week 0 12/06/2018 02/21/2020 flu vacc [id number],6mos up,/PF (FLUARIX QUAD 9087-8588, PF,) 60 mcg (15 mcg x 4)/0.5 [...] as of this encounter H&P Notes * Emr, Woody Méndez MD - 10/10/2019 12:52 PM EDT Patient Name: Etelvina Cuadra Patient Age: 58 y.o. Birthdate: 1960 Admit date: 10/10/2019 Attending Physician: Consuelo att. providers found PREPROCEDURE [...] Right lower quadrant PAIN LEVEL AT REST 6/10 with movement PAST MEDICAL HISTORY: Past Medical History: Diagnosis Date ??? Allergic state ??? CAD (coronary artery disease) ??? Depression PAST SURGICAL HISTORY: Past Surgical History: Procedure Laterality Date ??? BACK SURGERY ??? IMPLANT OR REPLACE DEVICE FOR INTRATHECAL INFUSION, SUBQ RESERVOIR ??? ORTHOPEDIC SURGERY ??? PRO COLONOSCOPY, BIOPSY 10/07/2011 COLONOSCOPY FLEXIBLE, WITH BX performed by NIKKI MAYORGA at [facility] ENDOSCOPY ??? PRO COLONOSCOPY, DIAGNOSTIC 09/23/2011 COLONOSCOPY, DIAGNOSTIC performed by NIKKI MAYORGA at [facility] ENDOSCOPY ??? PRO ELECTRONIC PUMP ANALYSIS W REPROGRAMMING AND REFILL BY /NAHID N/A 03/30/2019 ELECTRONIC HERNANDEZ PROG., PUMP- DRUG INFUS; W/ REPROGRAM & REFILL MILAGRO DAWSON (WRVU 0.9) performed by Karl Becker MD at [facility] PAIN MGMT MSO ??? PRO IMP SPINAL CANAL CATH Midline 03/23/2019 IMPLANT, REV OR REP TUNNELED INTRATHACAL OR EPIDURAL CATHETER (WRVU 6.05) performed by Karl Becker MD at [facility] MAIN OR ??? PRO INSERT/ REPLACE INFUSN PUMP, PROGRAMMABLE Right 03/23/2019 IMPLANT OR REPLACE PROG. PUMP-DRUG INFUSION (WRVU 5.6) performed by Melani Darden MD at [facility] ADEEL ??? PRO LAP, CHOLECYSTECTOMY/GRAPH N/A 10/18/2016 LAPAROSCOPIC CHOLECYSTECTOMY WITH CHOLANGIOGRAM (WRVU 11.47) performed by Tasia Umaña MD at [facility] MAIN OR ??? PRO LAP, VENTRAL HERNIA REPAIR, INCARCERATED N/A 07/12/2018 LAPAROSCOPIC HERNIA, VENTRAL, INCARCERATED, W-WO MESH (WRVU 14.94) performed by Izzy Blanco MD at [facility] MAIN OR ALLERGIES: Peanut; Peanut [...] times a week 0 ??? flu vacc [id number],6mos up,/PF (FLUARIX QUAD 4240-8034, PF,) 60 mcg (15 mcg x 4)/0.5 mL Syringeinject 0.5 milliliters intramuscularly 0 ??? HAVRIX, PF, 1,440 SONIDO unit/mL Syringe inject 1 milliliter intramuscularly 0 ??? NARCAN 4 mg/actuation Basehor, Non-Aerosol instill 1 spray in 1 NOSTRIL [...] (MORPHINE IN D5W) 1 mg/mL Prefilled Pump [place] Inject as directed. ??? oxyCODONE (ROXICODONE) 10 [...] file Gets together: Not on file Attends episcopalian service: Not on file Active member of [...] PTM pump doses, will decrease lockout to [id number] with max of 5 doses daily. Discussed the need to decrease oral opioid use. Woody So M.D. Pain Management Fellow [address] [address] phone: [phone] fax: [phone] [email or web address] documented in this encounter Miscellaneous Notes * Op Note - Woody So MD - 10/10/2019 2:02 PM EDT Pain Management Operative Note Patient Name: Etelvina Cuadra : [id number] MR#: [id number] Case Date: 10/10/2019 Surgeon: Surgeon(s) and Role: * Geovanna Greco MD - Primary Present on Admission: ??? Postlaminectomy syndrome of lumbar region Postoperative diagnosis: Postlaminectomy syndrome of lumbar region Procedure(s) (LRB): ELECTRONIC HERNANDEZ PROG., PUMP- DRUG INFUS; W/ REPROGRAM & REFILL MILAGRO DAWSON (WRVU 0.9) (N/A) INTRATHECAL PUMP INTERROGATION NOTE WITH REPROGRAMMING Primary Diesel Engine I Pipe Fitter: Woody So MD Corporate Health Consultant: Geovanna Greco MD Reason for Reprogramming: Interrogation [...] AM EST Hospital Encounter [place]patient [place] [address] Cadence Eric MD [facility] [place] [address] 04/06/2024 11:30 AM EST - 04/06/2024 12:50 PM EST Surgery [place]patient [place] [address] Cadence Eric MD [facility] [place] [address] IMPLANT NEUROSTIMULATOR ELECTRODES, PERIPHERAL NERVE (WRVU 5.76) 04/14/2024 2:30 PM EST Office Visit [place] [address] Cadence Eric MD [facility] [place] [address] Scheduled Procedures Name Priority Associated Diagnoses Date/Ti [...] Clinic [facility] (10/10/2019 3:55 PM EDT) Narrative [facility] - 10/10/2019 3:55 PM EDT See PACS for result report. Geovanna Greco MD IMG FILM LIBRARY ORD ERABLES [place], [place] documented in this encounter Visit Diagnoses Not on filedocumented in this encounter Care Teams Computer Programmer Relationship Specialty Start Date End Date Bob Day MD [address] [place] [address] PCP - General Family Medicine 01/18/18 07/26/20 documented as of this encounter
--- OUTSIDE RECORDS SUMMARY | 2024-04-05 16:30 | XMS_ITS | Encounter Summary ---
Author Organization [facility] Address [facility] [place] [address] Care Team Providers Care Material Handling Crew Supervisor Name Role Phone Bob Day MD Primary Care Provider [phone] [phone] Reason for Visit * Auth/Cert Specialty Diagnoses / Procedures Referred By Conttom t Referred To Contact Diagnoses Pump Refill Procedures PRO ELECTRONIC PUMP ANALYSIS W REPROGRAMMING AND REFILL BY MD/RESEARCH BIOSTATISTICIAN ELECTRONIC HERNANDEZ PROG., PUMP- DRUG INFUS; W/ REPROGRAM & REFILL REQ (WRVU 0.9) Referral ID Status Reason Start Date Expiration Date Visits Re quested Visits Authorized [id number] 1 1 Encounter Details Date Type Department Care Team (Latest Contact Info) Description 03/30/2019 12:13 PM EST - 03/30/2019 12:44 PM [facility] Hospital [place] [address] Karl Becker MD [facility] [place] [address] Postlaminectomy syndrome of lumbar region Discharge Disposition: [...] Sign Reading Time Taken Comments Blood Pressure 111/55 03/30/2019 12:20 PM EST Pulse - - Temperature - - Respiratory Rate - - Oxygen Saturation 100% 03/30/2019 12:20 PM EST Inhaled Oxygen Concentration - - Weight - - Height - - Body Mass Index - - documented in this encounter Discharge Instructions * Discharge Instructions* Flores Larkin RN - 03/30/2019 12:16 PM EST Pain Management Center Discharge Instructions: You were seen today by Surgeon(s): Karl Becker MD Delva, Felipe Parada MD The following was performed: Procedure(s) (LRB): [...] your bladder 4-6 hours after your procedure. . You received the following medications: Medications Given [...] your local emergency department. Flores Larkin, RN Special instructions documented in this encounter Medications at Time of Discharge Medication Sig Dispensed Refills Start Date End Date calcium carbonate-vitamin D3 (Os-Nico 500 + D3) 500mg (1,250mg) -600 unit Tablet Take 1 tablet by mouth Daily. 01/16/2016 NARCAN 4 mg/actuation Tucker, Non-Aerosol instill 1 spray in 1 NOSTRIL if needed for opioid overdose may re... (REFER TO PRESCRIPTION NOTES). 0 12/08/2018 multivitamin with minerals Tablet Take 1 tablet by mouth daily. morphine sulfate/D5W (MORPHINE IN D5W) 1 mg/mL Prefilled Pump [place] Inject as directed. Has intrathecal pump with continuous rate and Has 5 preset prn boluses pt may give herself albuteroL 90 mcg/actuation HFA Aerosol Inhaler Inhale 1-2 puffs into the lungs Every 4 hours. 12/06/2018 09/04/2021 aspirin EC (Aspirin Low Dose) 81 mg Tablet, Delayed Release (E.C.) Take by mouth Daily. 01/16/201602/20 oxyCODONE (ROXICODONE) 5 mg Tablet Take 2 tablets by mouth every 4 hours as needed for Pain for up to 7 days. 42 tablet 03/24/2019 03/31/2019 PROAIR HFA 90 mcg/actuation HFA Aerosol Inhaler inhale 1 to 2 puffs by mouth every 4 to 6 hours if needed for wheezing 0 12/06/2018 06/20/2020 YUVAFEM 10 mcg Tablet insert 1 tablet vaginally two times a week 0 12/06/2018 02/21/2020 flu vacc [id number],6mos up,/PF (FLUARIX QUAD , PF,) 60 mcg (15 mcg x 4)/0.5 mL Syringe inject 0.5 milliliters intramuscularly 0 01/07/2019 02/21/2020 HAVRIX, PF, 1,440 SONIDO unit/mL Syringe inject 1 milliliter intramuscularly 0 01/07/2019 02/21/2020 citalopram (CeleXA) 20 mg Tablet 20 mg daily. 0 02/04/2019 05/09/2020 morphine 100 % Powd 10 mg/mLIndications:Pos t laminectomy syndrome,Postlaminec kraolina syndrome by Intrathecal route continuous. 42 mL [...] as of this encounter H&P Notes * Felipe Barney - 03/30/2019 12:44 PM EST PREPROCEDURE HISTORY AND PHYSICAL Date of Visit: March 30, 2019 Ms. Cuadra presents for intrathecal pump refill. Chief Complaint: Chronic back pain HPI: Subjective Etelvina Cuadra is a 58 y.o. female who presents today for intrathecal pump refill with a diagnosis ofpost laminectomy syndrome with symptoms of post laminectomy syndrome. The history is obtained from the patient, and I have reviewed medical records provided by the referring physician and located in the electronic medical record to fill in gaps in the patient's recollection of events, treatments and outcomes. LOCATION: across the lower back. PAIN LEVEL AT REST 6/10 PAST MEDICAL HISTORY: Past Medical History: Diagnosis Date ??? Allergic state ??? CAD (coronary artery disease) ??? Depression There are no medical history contraindications to this procedure. PAST SURGICAL HISTORY: Past Surgical History: Procedure Laterality Date ??? BACK SURGERY ??? IMPLANT OR REPLACE DEVICE FOR INTRATHECAL INFUSION, SUBQ RESERVOIR ??? ORTHOPEDIC SURGERY ??? PRO COLONOSCOPY, BIOPSY 10/07/2011 COLONOSCOPY FLEXIBLE, WITH BX performed by NIKKI MAYORGA at [facility] ENDOSCOPY ??? PRO COLONOSCOPY, DIAGNOSTIC 09/23/2011 COLONOSCOPY, DIAGNOSTIC performed by NIKKI MAYORGA at [facility] ENDOSCOPY ??? PRO IMP SPINAL CANAL CATH Midline 03/23/2019 IMPLANT, REV OR REP TUNNELED INTRATHACAL OR EPIDURAL CATHETER (WRVU 6.05) performed by Karl Becker MD at [facility] OR ??? PRO INSERT/ REPLACE INFUSN PUMP, PROGRAMMABLE Right 03/23/2019 IMPLANT OR REPLACE PROG. PUMP-DRUG INFUSION (WRVU 5.6) [facility] ??? PRO LAP, CHOLECYSTECTOMY/GRAPH N/A 10/18/2016 LAPAROSCOPIC CHOLECYSTECTOMY WITH CHOLANGIOGRAM (WRVU 11.47) performed by Tasia Umaña MD at [facility] OR ??? PRO LAP, VENTRAL HERNIA REPAIR, INCARCERATED N/A 07/12/2018 LAPAROSCOPIC HERNIA, VENTRAL, INCARCERATED, W-WO MESH (WRVU 14.94) performed by Izzy Blanco MD at [facility] OR There are no past surgical contraindications to this procedure ALLERGIES: Peanut; Peanut oil; Rice; Wheat; Wheat bran; Wheat flour; Wheat germ oil; Wheat starch; Canine protein containing products; Hazelnut; Hydrocodone; Hydrocodone- acetaminophen; Hydrocodone-ibuprofen; Rofecoxib; Tetracycline; Tetracyclines; and Wool There are no allergic contraindications to this procedure. MEDICATIONS: @MEDNOWREFRESH@ There are no medication contraindications to this [...] resource strain: Not on file ??? Food insecurity: Worry: Not on file Inability: Not on file ??? Transportation needs: Medical: Not on file Non-medical: Not on file Tobacco Use ??? Smoking status: Former Smoker Packs/day: 0.25 Types: Cigarettes Last attempt to quit: 09/23/1991 Years since quittin.5 ??? Smokeless tobacco: Never Used Substance and Sexual Activity ??? Alcohol use: No ??? Drug use: No ??? Sexual activity: Not on file Lifestyle ??? Physical activity: Days per week: Not on file Minutes per session: Not on file ??? Stress: Not on file Relationships ??? Social connections: Talks on phone: Not on file Gets together: Not on file Attends judaism service: Not on file Active member of club or organization: Not on file Attends meetings of clubs or organizations: Not on file Relationship status: Not on file ??? Intimate partner violence: Fear of current or ex partner: Not on file Emotionally abused: Not on file Physically abused: Not on file Forced sexual activity: Not on file Other Topics Concern ??? Not on file Social History Narrative ??? Not on file There are no social history contraindications to this procedure. ROS: Review of Systems Constitutional: Negative for fever, chills, or recent infection. Respiratory: Negative for shortness of breath. Cardiovascular: Negative for chest pain. Musculoskeletal: Positive for chronic back pain. Psychiatric/Behavioral: Negative for agitation and behavioral problems. PHYSICAL EXAM: BP 111/55 SpO2 100% Physical Exam Constitutional: She appears well-developed and well-nourished. No distress. Cardiovascular: Normal heart rate. Pulmonary/Chest: Effort normal and breath sounds normal. Skin: She is not diaphoretic. This is no rash, apparent infection, or other abnormality to the areaof the proposed injection. There are surgical juanito appreciated along site of her Intrathecal pump. There are no physical examination findings which would preclude this procedure. ASSESSMENT: Post laminectomy syndrome. PLAN: Proceed with procedure as planned. The risks and benefits if this treatment plan were discussed andthe patient was encouraged to ask questions regarding today's visit and plan. Will plan to use fluoroscopy to access intrathecal pump. Thank you for the opportunity to participate in Etelvina Cuadra's care. Please feel free to contact mewith any questions. Sincerely, Felipe Barney MD Pain Management Fellow [address] [address] [email or web address] documented in this encounter Plan of Treatment Upcoming Encounters Date Type Department Care Team (Latest Contact Info) Description 04/06/2024 11:30 AM EST Hospital Encounter [place] [address] Cadence Eric MD [facility] [place] [address] 04/06/2024 11:30 AM EST - 04/06/2024 12:50 PM EST Surgery [place] [address] Cadence Eric MD [facility] [place] [address] IMPLANT NEUROSTIMULATOR ELECTRODES, PERIPHERAL NERVE (WRVU 5.76) 04/14/2024 2:30 PM EST Office Visit [facility] [place] [address] Cadence Eric MD [facility] [place] [address] Scheduled Orders Name Type Priority Associated Diagnoses Order Schedule Film Library- Storage Only Pain Clinic Ultrasound Imaging Storage Only Routine Postlaminectomy syndrome of lumbar region Once PRN (for Radiant use) for 1 Occurrences starting 03/30/2019 until 03/30/2019 Scheduled Procedures Name Priority Associated Diagnoses Date/Ti [...] Priority Date/Time Associated Diagnosis Comments Anal Inf Lamination Operator W ReproRefil([id number]) 03/30/2019 12:13 PM EST Pump Refill documented in this encounter Visit Diagnoses Diagnosis Postlaminectomy syndrome of lumbar region Postlaminectomy syndrome, lumbar region Saphenous neuralgia, right documented in this encounter Care Teams Material Handling Crew Supervisor Relationship Specialty Start Date End Date Bob Day MD [address] [place] [address] PCP - General Family Medicine 01/18/18 07/26/20 documented as of this encounter
--- OUTSIDE RECORDS SUMMARY | 2024-04-05 16:31 | XMS_ITS | Encounter Summary ---
Author Organization [facility] [place] [address] Care Team Providers Care Bridal Stylist Sales Consultant Name Role Phone Bob Day MD Primary Care Provider [phone] [phone] Encounter Details Date Type Department Care Team (Late st Contact Info) Description 12/06/2018 [facility] Conversion Results [address] [place] [phone] [facility] Conversion, Flowsheet Provider, Social History Tobacco [...] Sign Reading Time Taken Comments Blood Pressure 102/60 12/06/2018 12:00 AM EDT [facility] Pulse - - Temperature - - Respiratory Rate - - Oxygen Saturation - - Inhaled Oxygen Concentration - - Weight 107.5 kg (237 lb) 12/06/2018 12: 00 AM EDT [facility] Conversion Height - - Body Mass Index 46.53 11/23/2018 12:00 AM EDT documented in this encounter Plan of Treatment Upcoming Encounters Date Type Department Care Team (Latest Contact Info) Description 04/06/2024 11:30 AM [facility] Hospital Encounter [place] [phone] Cadence Eric MD [facility] [place] [address] 04/06/2024 11:30 AM EST - 04/06/2024 12:50 PM EST Surgery [place] [address] Cadence Eric MD [facility] [place] [address] IMPLANT NEUROSTIMULATOR ELECTRODES, PERIPHERAL NERVE (WRVU 5.76) 04/14/2024 2:30 PM EST Office Visit [facility] [place] [address] Cadence Eric MD [facility] [place] [address] Scheduled Procedures Name Priority Associated Diagnoses Date/Ti [...] on filedocumented in this encounter Care Teams Bridal Stylist Sales Consultant Relationship Specialty Start Date End Date Bob Day MD [address] [place] [address] PCP - General Family Medicine 01/18/18 07/26/20 documented as of this encounter
--- OUTSIDE RECORDS SUMMARY | 2024-04-05 16:31 | XMS_ITS | Encounter Summary ---
Author Organization [facility] Address [facility] [place] [address] Care Team Providers Care Lifestyle Block Farmer Name Role Phone Bob Day MD Primary Care Provider [phone] [phone] Reason for Visit * Reason Comments Follow-up Encounter Details Date Type Department Care Team (Late st Contact Info) Description 09/08/2018 11:40 AM EDT Office [place] [address] Izzy Blanco MD [facility] [place] [address] Status post repair of ventral hernia Social History Tobacco Use Types Packs/Day Years [...] - Inhaled Oxygen Concentration - - Weight 110.2 kg (243 lb) 09/08/2018 11:53 AM EDT Height - - Body Mass Index 47.46 07/12/2018 6:21 AM EST documented in this encounter Progress Notes * Izzy Blanco MD - 09/08/2018 11:40 AM EDT Etelvina Cuadra returns following her robotic ventral hernia repair on 07/12/18. She was found to have a3 cm fascial defect containing pericolonic fat. This was repaired with defect closure and placementof an 11 cm round underlay mesh. Her postoperative course was notable for erythema of her left lower quadrant port site. She was seen urgent care at [facility] where she was started on Keflex. [place] trip. She went to the ED a few days later and was subsequently admitted for IV antibiotics. ?? A CT scan showed: 2.5 centimeter x 1.8 centimeter thin-walled non gas containing collection to the left of the umbilicus. Findings may represent seroma or developing abscess. 3.0 centimeter x 2.0 centimeter thin-walled fatty area superior to the umbilicus with a thickened wall. Findings may represent persistent supraumbilical hernia possibly entrapped. Though no definitive connection identified weight within anterior abdominal wall defect. Correlate with pain superior to the umbilicus. ?? Her erythema improved and she was discharged on Bactrim and Augmentin. ?? I do not see any culture data relevant to her wound. ??At time of her last visit I debrided some eschar. She states that she did well, however noted some drainage on her clothes and she restarted some antibiotic she had at home. ?? On physical examination, her abdomen is soft and nontender. I do not appreciate a recurrent hernia.Her LLQ port site has some overlying eschar, which I removed. THere is no surrounding erythema. Herother port sites are healing well. ?? Impression: Port site infection s/p robotic ventral hernia repair, without any current evidence of infection. She is currently off antibiotics. I removed some eschar, with underlying healthy tissue. We discussed that this should heal on its own by secondary intention, and she can use a band aid as needed to protect her clothes. She will return for a wound check as needed going forward, and otherwise she will follow up prn. documented in this encounter Plan of Treatment Upcoming Encounters Date Type Department Care Team (Latest Contact Info) Description 04/06/2024 11:30 AM [facility] Hospital Encounter [place] [address] Cadence Eric MD [facility] [place] [address] 04/06/2024 11:30 AM EST - 04/06/2024 12:50 PM EST Surgery [place] [address] Cadence Eric MD [facility] [place] [address] IMPLANT NEUROSTIMULATOR ELECTRODES, PERIPHERAL NERVE (WRVU 5.76) 04/14/2024 2:30 PM EST Office Visit [place] [address] Cadence Eric MD [facility] [place] [address] Scheduled Procedures Name Priority Associated Diagnoses Date/Ti me IMPLANT NEUROSTIMULATOR ELECTRODES, PERIPHERAL NERVE (WRVU 5.76) Yes Saphenous neuralgia, right 04/06/2024 11:30 AM EST IMPLANT NEUROSTIMULATOR ELECTRODES, PERIPHERAL NERVE (WRVU 5.76) Saphenous neuralgia, 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
--- OUTSIDE RECORDS SUMMARY | 2024-04-05 16:31 | XMS_ITS | Encounter Summary ---
Author Organization [facility] Address [facility] [place] [address] Care Team Providers Care Signal Inspector Name Role Phone Bob Day MD Primary Care Provider [phone] [phone] Encounter Details Date Type Department Care Team (Late st Contact Info) Description 11/23/2018 [facility] Conversion Results [address] [place] [phone] [facility] Conversion, Flowsheet Provider, Social History [...] Sign Reading Time Taken Comments Blood Pressure 116/76 11/23/2018 12:00 AM EDT Sourced from [facility] Conversion Pulse - - Temperature - - Respiratory Rate - - Oxygen Saturation - - Inhaled Oxygen Concentration - - Weight 108.4 kg (239 lb) 11/23/2018 12: 00 AM EDT Sourced from [facility] Conversion Height 152 cm (4' 11.84) 11/23/2018 12 :00 AM EDT Sourced from [facility] Conversion Body Mass Index 46.92 11/23/2018 12:00 AM EDT documented in this encounter Plan of Treatment Upcoming Encounters Date Type Department Care Team (Latest Contact Info) Description 04/06/2024 11:30 AM [facility] Hospital Encounter [place] [address] Cadence Eric MD [facility] [place] [address] 04/06/2024 11:30 AM EST - 04/06/2024 12:50 PM EST Surgery [place] [address] Cadence Eric MD [facility] [place] [address] IMPLANT NEUROSTIMULATOR ELECTRODES, PERIPHERAL NERVE (WRVU 5.76) 04/14/2024 2:30 PM EST Office Visit Pain [place] [address] Cadence Eric MD [facility] [place] [address] Scheduled Procedures Name Priority Associated Diagnoses Date/Ti [...] on filedocumented in this encounter Care Teams Signal Inspector Relationship Specialty Start Date End Date Bob Day MD [address] [place] [address] PCP - General Family Medicine 01/18/18 07/26/20 documented as of this encounter
--- OUTSIDE RECORDS SUMMARY | 2024-04-05 16:31 | XMS_ITS | Encounter Summary ---
Author Organization [facility] Address [facility] [place] [address] Care Team Providers Care Special Events Driver Name Role Phone Bob Day MD Primary Care Provider [phone] Reason for Visit * Reason Comments Follow-up Encounter Details Date Type Department Care Team (Late st Contact Info) Description 08/04/2018 2:20 PM EDT Office [place] [address] Izzy Blanco MD [facility] [place] [address] Status post repair of ventral hernia Social [...] Sign Reading Time Taken Comments Blood Pressure 136/82 08/04/2018 2:18 PM EDT Pulse 82 08/04/2018 2:18 PM EDT Temperature 36.3 ??C (97.4 ??F) 08/04/2018 2:18 PM ED T Respiratory Rate 18 08/04/2018 2:18 PM EDT Oxygen Saturation 98% 08/04/2018 2:18 PM EDT Inhaled Oxygen Concentration - - Weight - - Height - - Body Mass Index - - documented in this encounter Progress Notes * Izzy Blanco MD - 08/04/2018 2:20 PM EDT Etelvina Cuadra returns one month following her robotic ventral hernia repair. She was found to have a3 cm fascial defect containing pericolonic fat. This was repaired with defect closure and placementof an 11 cm round underlay mesh. Her postoperative course was notable for erythema of her left lower quadrant port site that developed a week and a half ago. She was seen urgent care at [facility] where shewas started on Keflex. She then flew to [place] for a planned trip. She went to the ED a few dayslater and was subsequently admitted for IV antibiotics. A CT scan showed: 2.5 centimeter x [...] Correlate with pain superior to the umbilicus. I am able to see this report, but do not have access to her images. Her erythema improved and she was discharged on Bactrim and Augmentin. I do not see any culture data relevant to her wound. Since discharge she states she has been feeling tired. She has some pain and is constipated. She has not been taking her Miralax due to traveling. She is otherwise eating and moving her bowel. She denies objective fevers. Most Recent Vitals: 08/04/18 1418 BP: 136/82 Pulse: 82 Resp: 18 Temp: 36.3 ??C (97.4 ??F) SpO2: 98% On physical examination, her abdomen is soft and nontender. I do not appreciate a recurrent hernia.Her LLQ port site has some overlying eschar. THere is no surrounding erythema. Her other port sitesare healing well. She showed me pictures of her wound previously, which show erythema surrounding her LLQ port site. Her wound was prepped with chlorhexidine, and infiltrated with 1% lidocaine with epinephrine. Scissors were used to sharply debride the eschar and guaze was used to gently debride some of the underlying fat necrosis. There was no purulence. Impression: Port site infection s/p robotic ventral hernia repair. I can't see her images from ID, but thus far no evidence of mesh infection. I will have her complete her antibiotic course, use a DSD as needed and follow up with me in two weeks. She knows to call if she develops fevers, malaise, or return of her erythema, in which case we will plan to repeat a CT. Otherwise I will see her in twoweeks for a wound check. documented in this encounter Plan of Treatment Upcoming Encounters Date Type Department Care Team (Latest Contact Info) Description 04/06/2024 11:30 AM EST Hospital Encounter Outpatient [place] [address] Cadence Eric MD [facility] [place] [address] 04/06/2024 11:30 AM EST - 04/06/2024 12:50 PM EST Surgery Outpatient [place] [address] Cadence Eric MD [facility] [place] [address] IMPLANT NEUROSTIMULATOR ELECTRODES, PERIPHERAL NERVE (WRVU 5.76) 04/14/2024 2:30 PM EST Office Visit [place] [address] Cadence Eric MD [facility] [place] [address] Scheduled Procedures Name Priority Associated Diagnoses Date/Ti [...] documented in this encounter Care Teams Special Events Driver Relationship Specialty Start Date End Date Bob Day MD [address] [place] [address] PCP - General Family Medicine 01/18/18 07/26/20 documented as of this encounter
--- OUTSIDE RECORDS SUMMARY | 2024-04-05 16:31 | XMS_ITS | Encounter Summary ---
Author Organization [facility] Address [facility] [place] [address] Care Team Providers Care Industrial Economics Professor Name Role Phone Bob Day MD Primary Care Provider [phone] [phone] Reason for Visit * Reason Comments Pain Management Encounter Details Date Type Department Care Team (Latest Contact Info) Description 03/30/2019 11:30 AM EST Procedure visit Pain [place] [address] Karl Becker MD [facility] [place] [address] Postlaminectomy syndrome of lumbar region Social History [...] Sign Reading Time Taken Comments Blood Pressure 112/58 03/30/2019 11:33 AM EST Pulse 63 03/30/2019 11:33 AM EST Temperature - - Respiratory Rate - - Oxygen Saturation 98% 03/30/2019 11:33 AM EST Inhaled Oxygen Concentration - - Weight 103.9 kg (229 lb) 03/30/2019 11:33 AM EST Height 152.4 cm (5') 03/30/2019 11:33 AM EST Body Mass Index 44.72 03/30/2019 11:33 AM EST documented in this encounter Progress Notes * Felipe Barney - 03/30/2019 11:30 AM EST INTRATHECAL PUMP REFILL PROCEDURE NOTE WITH REPROGRAMMING Primary Sizer Hand: Felipe Barney MD Corn Lab Technician: MD Eugenio Reason for Reprogramming: Refill Diagnosis: post laminectomy syndrome VAS today: 10/18 Side effects from pump: NONE noted Changes since last refill: None Physical Examination: Constitutional: Her vital signs were normal and reviewed with the patient. She is in no acute distress. Respiratory: There is no respiratory distress Cardiovascular: Normal heart rate Skin (over the pump): The skin was grossly normal to the area of pain; juanito noted along surgicalincision right abdomen Eyes: EOMI, no scleral icterus Psychological: Normal Pre-Refill Telemetry Programming Reading: Drugs/Concentrations: - Preservative Free - Daily Dose: Post-Refill Telemetry Programming Reading: Drugs/Concentrations: - Preservative Free - Daily Dose: Brand/Compound: Compound. Pump Capacity: 40 mL Computer predicted residual volume in pump: 5.6 Measured residual volume in pump: 5.5 ml Medication or Dose Changes: PTM; 0.2 mg q 6 hours 4 per day max. Is dose change >30%? Yes, more than 30% Is concentration of drug different? Yes, 1 mg/ml to 10 mg/ml If concentration of drug is different, has a bridge bolus been programmed? No Has any program been used other than simple continuous or bridge bolus and simple continuous? No Infusion Mode: simple continuous. New Alarm Date: 08/11/19 PROCEDURE: Risks and expected side effects were reviewed with patient and his voiced concerns addressed. The printed consent form was signed and witnessed. The following information was verified: ?? Patient Name on RX: Yes, Etelvina Cuadra ?? Drug Name on RX:Yes, Morphine Sulfate PF 10 MG/ML ?? Drug concentration on syringe containing pump refill medication: Yes, 10 MG/ML The pump was accessed via telemetry and the computer predicted residual volume was noted as per above. Then Chlorhexidine prep over the pump refill site was performed. Sterile drapes were applied as provided with the [employer]tronic refill kit. A 22 gauge Moraes non-coring [...] instilled into the pump according to the inspector hairspring truing's directions without difficulty. There was no evidence [...] were appropriately enabled and in working order. Comments: Dr. Becker and patient discussed plans to cease opioid medication soon. She will continue till her post surgical opioid prescriptions are complete. Recommendations were made for patient not to fill her director long term care medications. Patient was agreeable with plan and is eager to cease oral opioid therapy. Comments: Patient experienced tachycardia and facial flushing shortly after procedure. Patient was given oxygen shortly after. Vitals signs were significant for a brief episode of tachycardia. BP wasstable through the incident. After a few minutes patients demonstrated an appropriate response and was given a wheelchair. She was observed in clinic longer and was discharged from the [facility]. Follow-up appointments will be arranged for refills as appropriate. Procedure performed with Dr. Becker present. Felipe Barney MD Pain Management Fellow [address] [address] [email or web address] documented in this encounter Plan of Treatment Upcoming Encounters Date Type Department Care Team (Latest Contact Info) Description 04/06/2024 11:30 AM EST Hospital Encounter [place]patient [place] [address] Cadence Eric MD [facility] [place] [address] 04/06/2024 11:30 AM EST - 04/06/2024 12:50 PM EST Surgery [place] [address] Cadence Eric MD [facility] [place] [address] IMPLANT NEUROSTIMULATOR ELECTRODES, PERIPHERAL NERVE (WRVU 5.76) 04/14/2024 2:30 PM EST Office Visit [facility] [place] [phone] Cadence Eric MD [facility] [place] [address] Scheduled Procedures Name Priority Associated Diagnoses Date/Ti [...] right documented in this encounter Care Teams Industrial Economics Professor Relationship Specialty Start Date End Date Bob Day MD [address] [place] [address] PCP - General Family Medicine 01/18/18 07/26/20 documented as of this encounter
--- OUTSIDE RECORDS SUMMARY | 2024-04-05 16:31 | XMS_ITS | Encounter Summary ---
Author Organization [facility] [place] [address] Care Team Providers Care Rn Home Care Name Role Phone Bob Day MD Primary Care Provider [phone] [phone] Encounter Details Date Type Department Care Team (Latest Contact Info) Description 11/23/2018 8:56 PM EDT - 11/23/2018 11:59 PM EDT Hospital [place] [address] Discharge Disposition: Home Social History Tobacco Use [...] Take 1 tablet by mouth Daily. 01/16/2016 morphine sulfate/D5W (MORPHINE IN D5W) 1 mg/mL Prefilled Pump [place] Inject as directed. Has intrathecal pump with continuous rate and Has 5 preset prn boluses pt may give herself aspirin EC (Aspirin Low Dose) 81 mg Tablet, Delayed Release (E.C.) Take by mouth Daily. 01/16/201602/20 baclofen (LIORESAL) 10 mg Tablet Take 10 mg by mouth as needed. 02/21/2020 Psyllium Husk 0.52 gram Capsule Take 1 capsule by mouth as needed. 12/01/2018 calcium citrate-vitamin D (CITRACAL+D) 315-200 mg-unit Tablet Take by mouth daily. 02/20 fenofibrate (TRICOR) 145 mg Tablet Take 145 mg by mouth daily. 02/21/2020 morphine 100 % Powd 10 mg/mLIndications:Pos t laminectomy syndrome,Postlaminec karolina syndrome by Intrathecal route continuous. 42 mL 09/15/2018 12/01/2018 oxyCODONE (ROXICODONE) 10 mg Tablet Take 1 tablet by mouth every 3 hours as needed (pain). 25 tablet 07/15/2018 02/27/2020 polyethylene glycol (MIRALAX) 17 gram Powder in Packet Take by mouth as needed. 05/09/2020 citalopram (CELEXA) 20 mg Tablet Take 20 mg by mouth daily. 02/09/2019 FLUARIX QUAD 9943-9782, PF, 60 mcg (15 mcg x 4)/0.5 mL Syringe inject 0.5 milliliter intramuscularly 0 02/12/2018 02/09/2019 EPINEPHrine 1 mg/mL Kit Inject as directed [...] AM EST Hospital Encounter Outpatient Surgery Center [place] [address] Cadence Eric MD [facility] [place] [address] 04/06/2024 11:30 AM EST - 04/06/2024 12:50 PM EST Surgery [place]patient [place] [address] Cadence Eric MD [facility] [place] [address] IMPLANT NEUROSTIMULATOR ELECTRODES, PERIPHERAL NERVE (WRVU 5.76) 04/14/2024 2:30 PM EST Office Visit [place] [address] Cadence Eric MD [facility] [place] [address] Scheduled Procedures Name Priority Associated Diagnoses Date/Ti [...] Procedure Name Priority Date/Time Associated Diagnosis Comments HPV Routine 11/23/2018 12:00 PM EDT SANITATION WORKER CLEANING MACHINERY CYTOLOGY INTERPRETATION Routine 11/23/2018 12:00 PM EDT SANITATION WORKER CLEANING MACHINERY CYTOLOGY FINAL REPORT Routine 11/23/2018 12:00 PM EDT documented in this encounter Results * Beater Engineer Cytology Final Report (11/23/2018 12:00 PM EDT) Beater Engineer Cytology Final Report [id number] ? Location: [facility] The signing pathologist has (i) examined the relevant preparation(s) for the specimen(s) and (ii) rendered or confirmed the diagnosis(es). . ? Beater Engineer Final DIAGNOSIS Normal Negative for intraepithelial lesion or malignancy (NILM). For consensus guidelines for the management of cervical cancer screening test results, please see: ?? http://www.asccp.o rg . Electronically signed by: ??Nirmal SAUNDERS(ASCP), Tala E Verified: ??11/26/2018 ?Check Scaler Performed at: ??-[facility] [place], [place], [place] HPV RESULTS HPV16 (Result) ?Negative HPV18 [...] Clinical Genomics and Advanced Technology (CGAT) at [facility]. ? - Nestor Sexton, PhD, [facility], Director-[facility] STATEMENT OF ADEQUACY Specimen submitted is satisfactory. Endocervical component present. CLINICAL INFORMATION HPV Option: ? Concurrent HPV CT/NG Option: ??(not provided) Preparation: ?Liquid Based Pap Specimen Source: ?Cervical/LBP LMP: ?age 49 Hormones?: ?No Hysterectomy?: ?No ?: ?No ?: ?No I.U.D.?: ?No Pelvic Radiation: ? No Prior SANITATION WORKER CLEANING MACHINERY Therapy?: ? No Hist Abnl Pap/Biopsy?: ??No Hist of HPV Vaccine?: ?? No Hist of Smoking?: ? Yes Hist of RIANA exposure?: ??No Clinical Data, Significant Therapy and Clinical Impression ?? : ?? _ . CLINICAL INFORMATION Referring Identifier: ?[id number] This Pap Test has been evaluated with the assistance of the [employer] Pap Test Imaging System. Note: The Pap test is a screening test for cervical cancer with an inherent false-negative rate dependent upon several variables. For further information please contact the [facility]. Reference: Jose Antonio MAYER. Crop Adjuster of Pap Smear Results. In: Antonia BS, Eliseo HH, ed. ??The Pap Smear. [place]: Gonzalez, 2002: 71-77. [facility] 11/23/2018 12:0 0 PM EDT Narrative Resulting Agency Comment Spec In Lab / [facility] Iris Vu MD PATHOLOGY/CYTOLOGY O RDERABLES [facility] [place] [address] * SANITATION WORKER CLEANING MACHINERY Cytology Interpretation (11/23/2018 12:00 PM EDT) Beater Engineer Cytology Interpretation [facility] Comment:Beater Engineer Cytology Final R eport Endocervical Component Present [facility] AP Specimen 11/23/2018 12:0 0 PM EDT 11/26/2018 2:37 PM EDT Narrative Resulting Agency Comment Spec In Lab / [facility] Iris Vu MD PATHOLOGY/CYTOLOGY O [place] Performing Organization Address [facility] [place] [address] * HPV (11/23/2018 12:00 PM EDT) HPV16 NEGATIVE NEGATIVE [facility] HPV 18 NEGATIVE NEGATIVE [facility] HPV Other HR NEGATIVE NEGATIVE [facility] HPV Interpretation See Comment [facility] Comment: NEGATIVE for high-risk HPV [...] / [facility] Iris Vu MD PATHOLOGY/CYTOLOGY O [place] Performing Organization Address [facility] [place] [address] documented in this encounter Visit Diagnoses Not on filedocumented in this encounter Care Teams Rn Home Care Relationship Specialty Start Date End Date Bob Day MD [address] [place] [address] PCP - General Family Medicine 01/18/18 07/26/20 documented as of this encounter
--- OUTSIDE RECORDS SUMMARY | 2024-04-05 16:31 | XMS_ITS | Encounter Summary ---
Author Organization [facility] Address [facility] [place] [address] Care Team Providers Care Face Hardener Name Role Phone Bob Day MD Primary Care Provider [phone] Encounter Details Date Type Department Care Team (Late st Contact Info) Description 02/08/2019 Abstract Radiology and Cardiology Results [address] [place] [address] [facility] Conversion, Results Provider, Social History Tobacco Use [...] AM EST Hospital Encounter Outpatient [place] [address] Cadence Eric MD [facility] [place] [address] 04/06/2024 11:30 AM EST - 04/06/2024 12:50 PM EST Surgery Outpatient [place] [phone] Cadence Eric MD [facility] [place] [address] IMPLANT NEUROSTIMULATOR ELECTRODES, PERIPHERAL NERVE (WRVU 5.76) 04/14/2024 2:30 PM EST Office Visit [facility] at [facility] [place] [address] Cadence Eric MD [facility] [place] [address] Scheduled Procedures Name Priority Associated Diagnoses Date/Ti [...] Priority Date/Time Associated Diagnosis Comments TSH Routine 02/08/2019 7:09 AM EDT LIPID PANEL (REFLEX DIRECT LDL) Routine 02/08/2019 7:09 AM EDT COMPREHENSIVE METABOLIC PANEL Routine 02/08/2019 7:09 AM EDT documented in this encounter Results * (ABNORMAL) Comprehensive metabolic panel (non-fasting) (02/08/2019 7:09 AM EDT) Glucose 98(Car Installations Supervisor al Lab) 65 - 199 mg/dL [facility] CONVERSION eGFR 91(Car [facility]ations Supervisor al [facility]) >=60 mL/min/1. 73 m? [facility] CONVERSION Calcium 9.4(Exter nal Lab) 8.5 - 10.5 mg/dL [facility] CONVERSION Est Glomerular Filtration Rate 78(Car Installations Supervisor al [facility]) >=60 mL/min/1. 73 m? [facility] CONVERSION Protein, Total 7.6(Exter nal Lab) 6.1 - 8.0 gm/dL [facility] CONVERSION Alkaline Phosphatase 43(Car Installations Supervisor al [facility]) 35 - 105 unit/L [facility] CON[facility] Albumin 4.4(Exter nal Lab) 3.2 - 5.2 gm/dL [facility] CONVERSION Potassium 4.0(Exter nal Lab) 3.5 - 5.0 mmol/L [facility] CONVERSION Alanine Aminotransferase 29(Car [facility]ations Supervisor al [facility]) 0 - 30 unit/L [facility] CONVERSION Aspartate Aminotransferase 29(Car Installations Supervisor al [facility]) 0 - 30 unit/L [facility] CON[facility] Carbon Dioxide 25(Car Installations Supervisor al [facility]) 22 - 31 mmol/L [facility] CONVERSION Sodium 143(Exter nal Lab) 135 - 145 mmol/L [facility] CONVERSION Anion Gap 13([facility] Supervisor [facility]) 5 - 15 mmol/L [facility] CONVERSION Chloride 105(Exter nal Lab) 98 - 107 mmol/L [facility] CONVERSION Blood Urea Nitrogen 10(Car Installations Supervisor al [facility]) 8 - 18 mg/dL [facility] CONVERSION Creatinine 0.83(Exte rnal Lab) 0.70 - 1.20 mg/dL [facility] CONVERSION Bilirubin, Total 0.3(Exter nal Lab) 0.2 - 1.3 mg/dL [facility] CONVERSION 02/08/2019 7:09 AM EDT Results Provider [facility]lh Conversion MD OCTAVIO GODINEZ ORDERABLES [facility] CONVERSION * (ABNORMAL) Lipid Panel (Reflex Direct LDL) (02/08/2019 7:09 AM EDT) Lipid Interpretation See Note(Exte rnal Lab) [facility] CONVERSION LDL Cholesterol 77(Car Installations Supervisor al [facility]) mg/dL [facility] CONVERSION HDL Cholesterol 67(Car Installations Supervisor al [facility]) mg/dL [facility] CONVERSION Triglyceride 54(Car Installations Supervisor al Lab) mg/dL [facility] CONVERSION Cholesterol/HDL Ratio 2.3(Exter nal Lab) ratio [facility] CONVERSION Cholesterol, Total 155(Exter nal Lab) mg/dL [facility] CONVERSION 02/08/2019 7:09 AM EDT Results Provider Nlh Conversion MD OCTAVIO GODINEZ ORDERABLES [facility] CONVERSION * (ABNORMAL) TSH (02/08/2019 7:09 AM EDT) Thyroid Stimulating Hormone 2.84(Exte rnal Lab) 0.270 - 4.200 uIU/mL [facility] CONVERSION 02/08/2019 7:09 AM EDT Results Provider Nlh Conversion MD OCTAVIO GODINEZ ORDERABLES [facility] CONVERSION documented in this encounter Visit Diagnoses Not on filedocumented in this encounter Care Teams Face Hardener Relationship Specialty Start Date End Date Bob Day MD [address] [place] [address] PCP - General Family Medicine 01/18/18 07/26/20 documented as of this encounter
--- OUTSIDE RECORDS SUMMARY | 2024-04-05 16:31 | XMS_ITS | Encounter Summary ---
Author Organization [facility] Address [facility] [place] [address] Care Team Providers Care Gristmiller Name Role Phone Bob Day MD Primary Care Provider [phone] Reason for Visit * Auth/Cert Specialty Diagnoses / Procedures Referred By Cindy t Referred To Contact Diagnoses Pump Refill Procedures PRO ELECTRONIC PUMP ANALYSIS W REPROGRAMMING AND REFILL BY MD/PHYSICAL EDUCATION AIDE ELECTRONIC HERNANDEZ PROG., PUMP- DRUG INFUS; W/ REPROGRAM & REFILL REQ (WRVU 0.9) Referral ID Status Reason Start Date Expiration Date Visits Re quested Visits Authorized [id number] 1 1 Encounter Details Date Type Department Care Team ([facility] st Contact Info) Description 03/30/2019 12:04 PM EST - 03/30/2019 12:34 PM EST [place] [address] Karl Becker MD [facility] [place] [address] ELECTRONIC HERNANDEZ PROG., PUMP- DRUG INFUS; W/ [...] today by Surgeon(s): Karl Becker MD Delva, Guensley R, MD The following was performed: Procedure(s) (LRB): [...] by mouth Daily. 01/16/2016 NARCAN 4 mg/actuation [place], Non-Aerosol instill 1 spray in 1 NOSTRIL if needed for opioid overdose may re... (REFER TO PRESCRIPTION NOTES). 0 12/08/2018 multivitamin with minerals Tablet Take 1 tablet by mouth daily. morphine sulfate/D5W (MORPHINE IN D5W) 1 mg/mL Prefilled Pump [place] Inject as directed. Has intrathecal pump with [...] a week 0 12/06/2018 02/21/2020 flu vacc [id number] up,/PF (FLUARIX QUAD , PF,) 60 mcg [...] [facility] END[facility]COPY ??? PRO IMP SPINAL CANAL CATH Midline 03/23/2019 IMPLANT, REV OR REP TUNNELED INTRATHACAL OR EPIDURAL CATHETER (WRVU 6.05) performed by Karl Becker MD at [facility] OR ??? PRO INSERT/ REPLACE INFUSN PUMP, PROGRAMMABLE Right 03/23/2019 IMPLANT OR REPLACE PROG. PUMP-DRUG INFUSION (WRVU 5.6) [facility] ??? PRO LAP, CHOLECYSTECTOMY/GRAPH N/A 10/18/2016 LAPAROSCOPIC CHOLECYSTECTOMY WITH CHOLANGIOGRAM (WRVU 11.47) performed by Tasia Umaña MD at [facility] OR ??? PRO LAP, VENTRAL HERNIA REPAIR, INCARCERATED N/A 07/12/2018 LAPAROSCOPIC HERNIA, VENTRAL, INCARCERATED, W-WO MESH (WRVU 14.94) performed by Izzy Blanco MD at [facility] OR There are no past surgical [...] file Gets together: Not on file Attends quaker service: Not on file Active member of [...] Sincerely, Felipe Barney MD Pain Management Fellow [address] [address] [email or web address] documented in this encounter Plan of Treatment Upcoming Encounters Date Type Department Care Team (Latest Contact Info) Description 04/06/2024 11:30 AM EST Hospital Encounter Outpatient [place] [address] Cadence Eric MD [facility] [place] [address] 04/06/2024 11:30 AM EST - 04/06/2024 12:50 PM EST Surgery [facility] [place] [address] Cadence Eric MD [facility] [place] [address] IMPLANT NEUROSTIMULATOR ELECTRODES, PERIPHERAL NERVE (WRVU 5.76) 04/14/2024 2:30 PM EST Office Visit [place] [address] Cadence Eric MD [facility] [place] [address] Scheduled Orders Name Type Priority Associated Diagnoses [...] Priority Date/Time Associated Diagnosis Comments Anal Inf Soil Sampler W ReproRefil(75087) 03/30/2019 12:13 PM EST Pump Refill documented in this encounter Visit Diagnoses Not on filedocumented in this encounter Care Teams Gristmiller Relationship Specialty Start Date End Date Bob Day MD [address] [place] [address] PCP - General Family Medicine 01/18/18 07/26/20 documented as of this encounter
--- OUTSIDE RECORDS SUMMARY | 2024-04-05 16:31 | XMS_ITS | Encounter Summary ---
Author Organization [facility] Address [facility] [place] [address] Care Team Providers Care Build And Release Manager Name Role Phone Bob Day MD Primary Care Provider [phone] Reason for Visit * Reason Comments Pain Management pump refill Encounter Details Date Type Department Care Team (Latest Contact Info) Description 02/09/2019 1:15 PM EDT Procedure visit [facility] [place] [address] Ponce Becker MD [facility] [place] [address] Chronic bilateral low back pain with bilateral sciatica Social History Tobacco Use Types Packs/Day Years [...] Sign Reading Time Taken Comments Blood Pressure 115/64 02/09/2019 1:16 PM EDT Pulse 71 02/09/2019 1:16 PM EDT Temperature - - Respiratory Rate - - Oxygen Saturation 99% 02/09/2019 1:16 PM EDT Inhaled Oxygen Concentration - - Weight 106.6 kg (235 lb) 02/09/2019 1:16 PM EDT Height - - Body Mass Index 46.14 11/23/2018 12:00 AM EDT documented in this encounter Patient Instructions * Patient Instructions* Woody So Dev - 02/09/2019 1:15 PM EDT Please follow with Izabel for OR scheduling for replacement of pump before the end of the year. documented in this encounter Progress Notes * Saray Woody Méndez - 02/09/2019 1:15 PM EDT INTRATHECAL PUMP REFILL PROCEDURE NOTE WITH REPROGRAMMING Primary Tilting Saw Operator: Ponce Becker MD Jewel Gauger: Woody So MD Reason for Reprogramming: Pump Refill Diagnosis: Postlaminectomy Syndrome. Telemetry Pre-Refill Programming Reading: Drugs/Concentrations: Morphine - Preservative Free - 10 mg/ml Daily Dose: 4.504mg Telemetry Post-Refill Programming Reading: Drugs/Concentrations: Morphine - Preservative Free - 10 mg/ml Daily Dose: 4.504mg Brand/Compound: Brand. Lot #: [id number] Pump Capacity: 40 mL Computer predicted residual volume in pump: 8.5ml Measured residual volume in pump: 10ml Medication or Dose Changes: no Is dose change >30%? no Is concentration of drug different? no Empty syringe concentration verified by checkering machine operator: yes If concentration of drug is different, has a bridge bolus been programmed? n/a. Has any program been used other than simple continuous or bridge bolus and simple continuous? n/a Infusion Mode: simple continuous. New Alarm Date: 05/04/2019 PROCEDURE: Risks and expected side effects were [...] drapes were applied as provided with the [employer] refill kit. A 22 gauge Mroaes non-coring needle supplied with the refill kit [...] instilled into the pump according to the real estate rental agent's directions without difficulty. There was no evidence [...] will be arranged for refills as appropriate. Patient would like pump replaced prior to the new year. The pump states replacement date before October 2019. She states the pump has becoming more tender especially with walking. She would like unit placed in a different location. I was the attending physician supervising the resident in the above care and I was present with theresident for the entire procedure. PONCE BECKER MD documented in this encounter Plan of Treatment Upcoming Encounters Date Type Department Care Team (Latest Contact Info) Description 04/06/2024 11:[address] [facility] Hospital Encounter [place] [address] Cadence Eric MD [facility] [place] [address] 04/06/2024 11:30 AM EST - 04/06/2024 12:50 PM EST Surgery [place] [address] Cadence Eric MD [facility] [place] [address] IMPLANT NEUROSTIMULATOR ELECTRODES, PERIPHERAL NERVE (WRVU 5.76) 04/14/2024 2:30 PM EST Office Visit [facility] [place] [address] Cadence Eric MD [facility] [place] [address] Scheduled Procedures Name Priority Associated Diagnoses Date/Ti me IMPLANT NEUROSTIMULATOR ELECTRODES, PERIPHERAL NERVE (WRVU 5.76) Yes Saphenous neuralgia, right 04/06/2024 11:30 AM EST IMPLANT NEUROSTIMULATOR ELECTRODES, PERIPHERAL NERVE (WRVU 5.76) Saphenous neuralgia, 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
--- OUTSIDE RECORDS SUMMARY | 2024-04-05 16:31 | XMS_ITS | Encounter Summary ---
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 Encounter Summary for any Implant and Specimen details pertinent to this patient.) HPI/Surgical Indications: Post-laminectomy syndrome with intrathecal pump end of life needing replacement Procedure Description: After obtaining informed consent for replacement of the intrathecal delivery device and surgical marking of where on the right flank she wanted the new pump placed, Mrs. Cuadra was taken to OR 6 whereshe was induced and intubated by the anesthesia staff without incident. She was then positioned in the left lateral decubitus position on the OR table and secured in place with a reilly bag and 2 straps. Time out was then performed. The patient was prepped with chlorhexidine and draped in usual sterile fashion. Ioban was applied to the surgical site. The old device was located via palpation and theold incision line was marked. Our neurosurgical colleagues then incised along the old incision and obtained hemostasis with electrocautery. Once excised, the old device was inspected and the catheteraccess port was accessed and aspirated. Upon aspiration there was no CSF. The catheter was then disconnected and there was no freely flowing CSF. An attempt was made to directly aspirate from the catheter without success. This indicates a failed or kinked catheter. After failed troubleshooting the old catheter it was clear it needed to be replaced. Xray was then used to identify the interlaminar space in the lumbar spine. A 17g spinal needle was then advanced under multiple AP and lateral fluoroscopic guidance into the intrathecal space at L2-3. Clear CSF was then visualized flowing from the n eedle. A 19g catheter was then advanced under fluoroscopic guidance to the top T8. The catheter location was verified with AP and lateral films. The catheter was then secured and tunneled to the new right flank pocket by our neurosurgical colleague Dr. Darden. The catheter freely flowed CSF prior to connected to the intrathecal pump. The pump was connected and secured in the pocket with 2-0 silk sutures. The pump was filled with 20ml Preservative Free Morphine 1mg/mL. It was started at a rate of 2mg/day. Neurosurgery then closed the surgical incisions and dressed them which occlusive dressing. The patient then emerged from anesthesia and was extubated without incident and taken to PACU in stable condition. Infection Bundle used? See Brief Op note Associated attestation - Karl Dotson MD - 03/30/2019 1:57 PM EST Attestation: Case Date: 03/23/2019 I was present and I participated during the entire procedure (does not need to include opening and closing). KARL DOTSON MD 03/30/2019 * Op Note - Melani Darden MD - 03/23/2019 1:58 PM EST [facility] [place] Patient Name: Etelvina Cuadra : [id number] MR#: [id number] Case Date: 03/23/2019 Surgeon: Surgeon(s) and Role: Panel 1: * Karl Dotson MD - Primary * Noemi Ramírez MD - Resident Panel 2: * Melani Darden MD - Primary Preoperative diagnosis: Post Laminectomy Syndrome Postoperative diagnosis: Post Laminectomy Syndrome Procedure(s) (LRB): IMPLANT, REV OR REP TUNNELED INTRATHACAL OR EPIDURAL CATHETER (WRVU 6.05) (Midline) IMPLANT OR REPLACE PROG. PUMP-DRUG INFUSION (WRVU 5.6) (Right) Findings: intrathecal catheter was not patent. Entire system replaced. Old catheter was ligated in the old battery pocket Anesthesia: General Estimated Blood Loss: * No values recorded between 03/23/2019 8:20 AM and 03/23/2019 10:55 AM * Specimens removed during surgery: None Drains: None Surgical Closure: Primary Closure - skin incision is completely closed without any wires, francis, drains or other devices Disposition: awakened from anesthesia, extubated and taken to the recovery room in a stable condition, having suffered no apparent untoward event. Condition: doing well without problems (Please see the Surgical Encounter Summary for any Implant and Specimen details pertinent to this patient.) HPI/Surgical Indications: Etelvina Cuadra is a 58-year-old woman who is status post placement of an intrathecal morphine pump for persistent back pain and postlaminectomy syndrome. She was evaluated by Dr. Dotson, and after discussion of the risks, benefits, and alternatives to surgery, elected to undergo revision of the pump pocket and replacement of her morphine pump. Procedure Description: The patient was evaluated in the preoperative holding area. Updated history and physical was confirmed. The operative site was confirmed as the right abdomen, this is marked with a green [place] sioux. The patient was brought back to the operating room by anesthesia. General endotracheal anesthesia was induced to comp occasion. Patient positioned in left lateral decubitus on a beanbag, with all pressurepoints padded, and axiallary roll in good position. The abdominal incision, as well as the midline spinal incision were prepped and draped in the usual sterile fashion. A timeout was undertaken, 2 g of cefazolin were administered intravenously. A 50:50 Combination of Exparel as well as bupivacaine without epinephrine was administered into the planned incisions. The old pump pocket was opened sharply with a 10 blade into the subcutaneous layer. Bovie electrocautery was then used to dissect to the pump pocket itself. The scar tissue was then opened widely, taking care not to disrupt the catheter, and the entire pump was explanted without difficulty. We now accessed the side-port of the pump with a tuberculin syringe, and were unable to withdraw CSF. The pump was then disconnected from the catheter, and the catheter itself did not show any spontaneous CSF, even with Valsalva with pressure up to 30 mm of water. At this point, we decided to cut the catheter, and try and withdraw from the ca theter itself more proximally using a syringe. We did not see any CSF. At this point, the decision was made to revise the pump, as well as the intrathecal catheter, as the catheter was clearly not patent. We then brought the serum and to prepare for a new intrathecal catheter placement. Meanwhile, the location of the new pump pocket was prepared. The skin was opened with a 10 blade, both electrocautery was used to prepare some cutaneous pocket without difficulty. The old catheter was noted to be entering the intrathecal space at L1-2. This is deemed to be unsafe, and therefore we elected to replace the catheter at the L3- 4 level. Because they were not going to be able to remove the anchor, and the previous catheter, the distal end of the old catheter was tied off with 2-0 silk suture and left in the old pump pocket. Pain service team then proceeded to place the intrathecal catheter up to the level of approximately T6. Once the catheter was in position, we made an incision in the midline surrounding the 2 a needle, expose the fascia, and placed a single pursestring suture with a 2-0 s ilk tie. The Touhy needle was then carefully backed out of the incision, with care to preserve the location of the intrathecal catheter. The C-arm was brought back and an x-ray was checked to confirmthat the intrathecal catheter had noninfected move. Following this, we proceeded to load the catheter anchor, and prior to deployment of this, approximately 5 mL of DuraSeal exact was injected along the tract of the catheter. The anchor was deployed, and the pursestring around the fascia was tied down around this. A 2-0 silk was then used to tack the anchor to the fascia itself, and tied down tightly. Throughout this process, we constantly monitored the end of the epidural catheter to guaranteethat there was still spontaneous flow cerebral spinal fluid. Following this, we created a subcutaneous tunnel from the midline back incision into the new pump pocket. The catheter was passed into thenew pump pocket without difficulty. The new pump was then connected to the catheter with the intermediate extension, and the pump was then implanted into the pocket with 3 tacking sutures of 2-0 silk. All pockets were then copiously irrigated with bacitracin impregnated lactated Ringer's. The incisions are closed in layered fashion. Interrupted 0 Vicryls were used for the deep dermal layer in thepocket layer. Mable were used for the skin. In the old battery pocket, the scar tissue was scoredwith Bovie electrocautery, and some interrupted 3-0 Vicryls were used to tack the 2 sides of the pocket together to assist with healing. At the end of the case, all counts are correct. I was present for the entire procedure. Infection Bundle used? No Attestation: Case Date: 03/23/2019 I was present and I participated during the entire procedure (does not need to include opening and closing). Melani Darden MD 03/23/2019 * Brief Op Note - Karl Dotson MD - 03/23/2019 11:13 AM EST Brief Operative Note Patient Name: Etelvina Cuadra : [id number] MR#: [id number] Case Date: 03/23/2019 Surgeon: Surgeon(s) and Role: Panel 1: * Karl Dotson MD - Primary * Noemi Ramírez MD - Resident Panel 2: * Melani Darden MD - Primary Preoperative diagnosis: Post Laminectomy Syndrome Postoperative diagnosis: Post Laminectomy Syndrome Procedure(s) (LRB): IMPLANT, REV OR REP TUNNELED INTRATHACAL OR EPIDURAL CATHETER (WRVU 6.05) (Midline) IMPLANT OR REPLACE PROG. PUMP-DRUG INFUSION (WRVU 5.6) (Right) Anesthesia: General Findings: failed catheter Complications: none Intake: Intraprocedure Crystalloid Total lactated ringers infusion Volume (mL) 1000 mL Transfusion No data found in the last 1 encounters. Output: Estimated Blood Loss: * No values recorded between 03/23/2019 8:20 AM and 03/23/2019 10:55 AM * Urine Output:: (no urine output recorded) Other Output: (no other output recorded) Specimens removed during surgery: * No orders in the log * old pump and partial catheter Disposition: awakened from anesthesia, extubated and taken to the recovery room in a stable condition, having suffered no apparent untoward event. Condition: doing well without problems Attestation: Case Date: 03/23/2019 I was present and I participated during the entire procedure (does not need to include opening and closing). (Please see the Surgical Encounter Summary for any Implant and Specimen details pertinent to this patient.) * Brief Op Note - Noemi Ramírez MD - 03/23/2019 10:57 AM EST Brief Operative Note Patient Name: Etelvina Cuadra : [id number] MR#: [id number] Case Date: 03/23/2019 Surgeon: Surgeon(s) and Role: Panel 1: * Karl Dotson MD - Primary * Noemi Ramírez MD - Resident Panel 2: * Melani Darden MD - Primary Preoperative diagnosis: Post Laminectomy Syndrome Postoperative diagnosis: Post Laminectomy Syndrome Procedure(s) (LRB): IMPLANT, REV OR REP TUNNELED INTRATHACAL OR EPIDURAL CATHETER (WRVU 6.05) (Midline) IMPLANT OR REPLACE PROG. PUMP-DRUG INFUSION (WRVU 5.6) (Right) Anesthesia: General Findings: replacement of morphone pain pump Complications: none Intake: Intraprocedure Crystalloid Total lactated ringers infusion Volume (mL) 1000 mL Transfusion No data found in the last 1 encounters. Output: Estimated Blood Loss: * No values recorded between 03/23/2019 8:20 AM and 03/23/2019 10:55 AM * Urine Output:: (no urine output recorded) Other Output: (no other output recorded) Drains: none Specimens removed during surgery: * No orders in the log * Disposition: awakened from anesthesia, extubated and taken to the recovery room in a stable condition, having suffered no apparent untoward event. Condition: doing well without problems Attestation: Case Date: 03/23/2019 (Please see the Surgical Encounter Summary for any Implant and Specimen details pertinent to this patient.) documented in this encounter Plan of Treatment Upcoming Encounters Date Type Department Care Team (Latest Contact Info) Description 04/06/2024 11:30 AM EST Hospital Encounter [place] [address] Cadence Eric MD [facility] [place] [address] 04/06/2024 11:30 AM EST - 04/06/2024 12:50 PM EST Surgery [place] [address] Cadence Eric MD [facility] [place] [address] IMPLANT NEUROSTIMULATOR ELECTRODES, PERIPHERAL NERVE (WRVU 5.76) 04/14/2024 2:30 PM EST Office Visit [facility] [place] [address] Cadence Eric MD [facility] [place] [address] Scheduled Procedures Name Priority Associated Diagnoses Date/Ti [...] Name Priority Date/Time Associated Diagnosis Comments XR FLUORO NO RAD <1HR - OR USE Routine 03/23/2019 9:55 AM EST Insert/ Replace Infusn Pump, Programmable (71485) 03/23/2019 7:40 AM EST Post Laminectomy Syndrome Imp Spinal Canal Cath (48886) 03/23/2019 7:40 AM EST Post Laminectomy Syndrome IMPLANTABLE DEVICES SCAN 03/23/2019 12:00 AM EST documented in this encounter Results * XR Fluoro No Rad <1Hr - OR Use (03/23/2019 9:55 AM EST) Narrative RAD - 03/23/2019 9:56 AM EST This exam is auto-finalizing. No interpretation was done. Karl Dotson MD IMG FLUORO ORDERABLE S Performing Organization Address City/State/[facility] Co de Phone Number [place], [place] * SCAN DOC: IMPLANTABLE DEVICES (03/23/2019 12:00 AM EST) Narrative 03/23/2019 12:00 AM EST Ordered by an unspecified provider. 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 Do not exceed 4000 mg acetaminophen per day., Routine acetaminophen (TYLENOL) tablet 1,000 mg 1,000 mg, Oral, EVERY 6 HOURS PRN, Starting on Thu03/23/19 at 1041, Until Thu03/23/19 at 1556, Pain, Maximum dose of acetaminophen is 4000 mg from all sources in 24 hours., PACU Recovery, Routine Given 03/23/2019 12:54 PM EST 1,000 mg acetaminophen (TYLENOL) tablet 650 mg 650 mg, Oral, EVERY 4 HOURS PRN, Starting on Gerda 03/24/19 at 0516, Until Gerda 03/24/19 at 1514, Pain, Mild pain (1-3), Do not exceed 4000 mg acetaminophen per day., Routine Given 03/24/2019 8:07 AM EST 650 mg ceFAZolin (ANCEF) 2g in dextrose 5% 100 mL 2 g, Intravenous, EVERY 8 HOURS, 3 doses, First dose on Thu03/23/19 at 1600, Last dose on Thu03/24/19 at 0800, Administer over 30 Minutes, Indication for (Active or Suspected): Prophylaxis New Bag 03/24/2019 8:07 AM EST 2 g 200 mL/hr New Bag 03/23/2019 11:58 PM EST 2 g 200 mL/hr New Bag 03/23/2019 3:39 PM EST 2 g 200 mL/hr citalopram (CeleXA) tablet 20 mg 20 mg, Oral, NIGHTLY, First dose on Thu03/23/19 at 2230, Until Discontinued, Routine Given 03/23/2019 10:40 PM EST 20 mg diphenhydrAMINE (BENADRYL) capsule 25 mg 25 mg, Oral, EVERY 6 HOURS PRN, Starting on Thu03/24/19 at 0516, Until Thu03/24/19 at 1514, Itching, Per Epidural order. If both and nalbuphine are ordered, use diphenhydramine first, if ineffective, use nalbuphine second., Day of Surgery (Day of Procedure), Routine diphenhydrAMINE (BENADRYL) injection 12.5 mg 12.5 mg, Intravenous, EVERY 6 HOURS PRN, Starting on Thu03/24/19 at 0516, Until Thu03/24/19 at 1514, Itching, If not effective, may repeat once after 30 minutes with each 6 hour dosing interval Per Epidural order. If both and nalbuphine are ordered, use diphenhydramine first, if ineffective, use nalbuphine second., Day of Surgery (Day of Procedure), Routine fenofibrate micronized (LOFIBRA) capsule 134 mg 134 mg, Oral, NIGHTLY, First dose on Thu03/23/19 at 2300, Until Discontinued, Pt reports that she takes at night not in AM 134mg is what is available, Routine Given 03/23/2019 11:08 PM EST 134 mg HYDROmorphone (DILAUDID) injection 0.4 mg 0.4 mg, Intravenous, EVERY 4 HOURS PRN, Starting on Thu03/23/19 at 1456, Until Gerda 03/24/19 at 1027, Pain, moderate pain (4-6), May give an additional 0.2 mg in 30 minutes once if pain not relieved., Routine Given 03/24/2019 4:11 AM EST 0.4 mg Given 03/23/2019 11:59 PM EST 0.4 mg Given 03/23/2019 7:51 PM EST 0.4 mg HYDROmorphone (DILAUDID) injection 0.6 mg 0.6 mg, Intravenous, EVERY 4 HOURS PRN, Starting on Thu03/23/19 at 1456, Until Gerda 03/24/19 at 1027, Pain, severe pain (7-10), May give an additional 0.2 mg in 30 minutes once if pain not relieved., Routine Given 03/23/2019 3:37 PM EST 0.4 mg lactated ringers infusion 1,000 mL, at 100 mL/hr, Intravenous, CONTINUOUS, Starting on Thu03/23/19 at 0630, Until Thu03/23/19 at 1148, Day of Surgery (Day of Procedure) New Bag 03/23/2019 10:34 AM EST New Bag 03/23/2019 6:30 AM EST 1,000 mLs 100 mL/hr levothyroxine (SYNTHROID) tablet 100 mcg 100 mcg, Oral, NIGHTLY, First dose on Thu03/23/19 at 2230, Until Discontinued, Confirmed that pt does take at night and not in AM, Routine Given 03/23/2019 10:40 PM EST 100 mcg lidocaine (XYLOCAINE) 10 mg/mL (1 %) injection 3 mg 3 mg (0.3 mL), Subcutaneous, ONCE PRN, 1 dose, Starting on Thu03/23/19 at 0612, Until Thu03/23/19 at 0625, for discomfort with PIV insertion, Day of Surgery (Day of Procedure), Routine Given 03/23/2019 6:25 AM EST 3 mg naloxone (NARCAN) injection 0.2 mg 0.2 mg, Intravenous, EVERY 1 MIN PRN, Starting on Gerda 03/24/19 at 0516, Until Gerda 03/24/19 at 1514, Opioid Reversal, If respiratory rate less than 6 OR the patient is unable to arouse OR SpO2 is declining, Give for respiratory rate of less than or equal to 6 and patient is heavily sedated or unarousable. May repeat every 60 seconds to increase respiratory rate. DO NOT exceed 2 mg total dose. Per Epidural order., Day of Surgery (Day of Procedure), Routine naloxone (NARCAN) injection 0.2 mg 0.2 mg, Intravenous, ONCE PRN, 1 dose, Starting on Thu03/23/19 at 1740, Until Thu03/24/19 at 1514, Opioid Reversal, Routine ondansetron (ZOFRAN) injection 4-8 mg 4-8 mg, Intravenous, EVERY 8 HOURS PRN, Starting on Thu03/24/19 at 0516, Until Thu03/24/19 at 1514, Nausea, If multiple antiemetics are ordered, use ondansetron first, prochlorperazine second, and metaclopramide third. Start with 4mg and if ineffective in 30 minutes, give an additional 4mg ondansetron (ZOFRAN) tablet 4-8 mg 4-8 mg, Oral, EVERY 8 HOURS PRN, Starting on Thu03/24/19 at 0516, Until Thu03/24/19 at 1514, Nausea, Vomiting, If multiple antiemetics are ordered, use ondansetron first, prochlorperazine second, and metaclopramide third. PO Preferred. If patient unable to take PO, may give IV if ordered. Start with 4mg and if ineffective in 45 minutes, give an additional 4mg, Routine oxyCODONE (OxyCONTIN) CR tablet 20 mg 20 mg, Oral, EVERY 12 HOURS SCHEDULED (2 times per day), First dose on Thu03/23/19 at 1700, Until Discontinued, DO NOT CRUSH OR OPEN, Routine Given 03/24/2019 5:03 AM EST 20 mg Given 03/23/2019 5:46 PM EST 20 mg oxyCODONE (ROXICODONE) immediate release tablet 10-15 mg 10-15 mg, Oral, EVERY 4 HOURS PRN, Starting on Thu03/23/19 at 1148, Until Thu03/24/19 at 1514, Pain, severe pain (7-10), Initial dose 10mg. If pain control not adequet in 60 minutes, give additional 5mg., Routine Given 03/24/2019 9:08 AM EST 10 mg Given 03/23/2019 12:51 PM EST 10 mg oxyCODONE (ROXICODONE) immediate release tablet 5-10 mg 5-10 mg, Oral, EVERY 4 HOURS PRN, Starting on Thu03/23/19 at 1148, Until Thu03/24/19 at 1514, Pain, moderate pain (4-6), Initial dose 5mg. If pain control not adequet in 60 minutes, give additional 5mg., Routine Given 03/24/2019 4:10 AM EST 5 mg Given 03/23/2019 11:58 PM EST 5 mg Given 03/23/2019 10:00 PM EST 5 mg senna-docusate (PERICOLACE) 8.6-50 mg per tablet 2 tablet 2 tablet, Oral, 2 TIMES DAILY, First dose on Thu03/24/19 at 0900, Until Discontinued, Routine Given 03/24/2019 8:07 AM EST 2 tablets sodium chloride 0.9 % (flush) flush 5 mL 5 mL, Intravenous, 2 TIMES DAILY, First dose on Thu03/24/19 at 0900, Until Discontinued, Recovery (Recovery-Hospital Unit), Routine Given 03/24/2019 9:00 AM EST 5 mLs sodium chloride 0.9% infusion 1,000 mL, at 100 mL/hr, Intravenous, CONTINUOUS, Starting on Thu03/23/19 at 1215, Until Thu03/24/19 at 1027, Recovery (Recovery-Hospital Unit) New Bag 03/24/2019 8:11 AM EST 1,000 mLs 100 mL /hr New Bag 03/23/2019 9:33 PM EST 1,000 mLs 100 mL/hr New Bag 03/23/2019 12:00 PM EST 1,000 mLs 100 mL/hr documented in this encounter Active and Recently Administered Medications Times are shown in EST. Scheduled Medication Order 03/22/2019 03/23/2019 03/24/2019 ceFAZolin (ANCEF) 2g in dextrose 5% 100 mL (COMPLETED) 2 g, Intravenous, EVERY 3 HOURS, 1 dose, First dose on Thu03/23/19 at 0630, Administer over 30 Minutes, Intra-Operative (Intra-Procedure), Indication for (Active or Suspected): Prophylaxis 0801 (Given - Provider: Irma Melvin CRNA) ceFAZolin (ANCEF) 2g in dextrose 5% 100 mL (COMPLETED) 2 g, Intravenous, EVERY 8 HOURS, 3 doses, First dose on Thu03/23/19 at 1600, Last dose on Thu03/24/19 at 0800, Administer over 30 Minutes, Indication for (Active or Suspected): Prophylaxis 1539 (New Bag - Provider: Lauren Jackson RN)1609 (Stopped - Provider: Lauren Jackson RN)2358 (New Bag - Provider: Anju Lara RN) 0028 (Stopped - Provider: Anju Lara RN)0807 (New Bag - Provider: Felton Darden RN)0837 (Stopped - Provider: Felton Darden RN) citalopram (CeleXA) tablet 20 mg 20 mg, Oral, NIGHTLY, First dose on Thu03/23/19 at 2230, Until Discontinued, Routine 2240 (Given - Provider: Anju Lara RN) fenofibrate micronized (LOFIBRA) capsule 134 mg 134 mg, Oral, NIGHTLY, First dose on Thu03/23/19 at 2300, Until Discontinued, Pt reports that she takes at night not in AM 134mg is what is available, Routine 2308 (Given - Provider: Anju Lara RN) levothyroxine (SYNTHROID) tablet 100 mcg 100 mcg, Oral, NIGHTLY, First dose on Thu03/23/19 at 2230, Until Discontinued, Confirmed that pt does take at night and not in AM, Routine 2240 (Given - Provider: Anju Lara, SONNY) oxyCODONE (OxyCONTIN) CR tablet 20 mg 20 mg, Oral, EVERY 12 HOURS SCHEDULED (2 times per day), First dose on Thu03/23/19 at 1700, Until Discontinued, DO NOT CRUSH OR OPEN, Routine 1746 (Given - Provider: Lauren Jackson RN) 0503 (Given - Provider: Lucia Jackson RN) senna-docusate (PERICOLACE) 8.6-50 mg per tablet 2 tablet 2 tablet, Oral, 2 TIMES DAILY, First dose on Thu03/24/19 at 0900, Until Discontinued, Routine 0807 (Given - Provid er: Felton Darden RN) sodium chloride 0.9 % (flush) flush 5 mL 5 mL, Intravenous, 2 TIMES DAILY, First dose on Gerda 03/24/19 at 0900, Until Discontinued, Recovery (Recovery-Hospital Unit), Routine 0900 (Given - Provid er: Felton Darden RN) Continuous Medication Order 03/22/2019 03/23/2019 03/24/2019 lactated ringers infusion (CANCELED) 1,000 mL, at 100 mL/hr, Intravenous, CONTINUOUS, Starting on Thu03/23/19 at 0630, Until Thu03/23/19 at 1148, Day of Surgery (Day of Procedure) 0630 (New Bag - Provider: Nestor Younger RN)0832 (Anesthesia Volume Adjustment - Provider: Irma Melvin CRNA)1034 (New Bag - Provider: Irma Melvin CRNA) sodium chloride 0.9% infusion (CANCELED) 1,000 mL, at 100 mL/hr, Intravenous, CONTINUOUS, Starting on Thu03/23/19 at 1215, Until Gerda 03/24/19 at 1027, Recovery (Recovery-Hospital Unit) 1200 (New Bag - Provider: Lauren Jackson RN)2133 (New Bag - Provider: Anju Lara RN) 0811 (New Bag - Provider: Felton Darden RN) PRN Medication Order 03/22/2019 03/23/2019 03/24/2019 acetaminophen (TYLENOL) suppository 650 mg(Linked Group 1) 650 mg, Rectal, EVERY 4 HOURS PRN, Starting on Gerda 03/24/19 at 0516, Until Gerda 03/24/19 at 1514, Pain, Mild pain (1-3), Give per rectum (VA) if unable to take PO. Do not exceed 4000 mg acetaminophen per day., Routine 0807 (See Alternativ e - Provider: Felton Darden RN) acetaminophen (TYLENOL) tablet 1,000 mg (CANCELED) 1,000 mg, Oral, EVERY 6 HOURS PRN, Starting on Thu03/23/19 at 1041, Until Thu03/23/19 at 1556, Pain, Maximum dose of acetaminophen is 4000 mg from all sources in 24 hours., PACU Recovery, Routine 1254 (Given - Provider: Lauren Jackson RN) acetaminophen (TYLENOL) tablet 650 mg(Linked Group 1) 650 mg, Oral, EVERY 4 HOURS PRN, Starting on Thu03/24/19 at 0516, Until Thu03/24/19 at 1514, Pain, Mild pain (1-3), Do not exceed 4000 mg acetaminophen per day., Routine 0807 (Given - Provid er: Felton Darden RN) albuterol 90 mcg/actuation inhaler 2 puff 2 puff, Inhalation, EVERY 6 HOURS PRN, Starting on Thu03/23/19 at 2215, Until Thu03/24/19 at 1514, Wheezing, Routine, Is there a contraindication to the patient receiving this medication as a nebulizer? Yes bacitracin injection (CANCELED) ONCE PRN, Starting on Thu03/23/19 at 1038, Until Thu03/24/19 at 1514, Intra-Operative (Intra-Procedure), Routine 1038 (Given - Provider: Karl Dotson MD - Comment: 88637 UNITS BACITRACIN MIXED IN 1000ML NACL) bacitracin ointment (CANCELED) ONCE PRN, Starting on Thu03/23/19 at 1058, Until Thu03/24/19 at 1514, Intra-Operative (Intra-Procedure) 1058 (Given - Provider: Karl Dotson MD) BUpivacaine (PF) (MARCAINE) 0.25 % (2.5 mg/mL) injection (CANCELED) ONCE PRN, Starting on Thu03/23/19 at 0943, Until Thu03/24/19 at 1514, Intra-Operative (Intra-Procedure), Routine 0943 (Given - Provider: Noemi Ramírez MD - Comment: inection. 20ml 1.3 % exparel mixed with 20ml 0.25% bupivacaine plain 21 ml used)0946 (Given - Provider: Noemi Ramírez MD - Comment: inection. 20ml 1.3 % exparel mixed with 20ml 0.25% bupivacaine plain 21 ml of mixture used) diphenhydrAMINE (BENADRYL) capsule 25 mg(Linked Group 2) 25 mg, Oral, EVERY 6 HOURS PRN, Starting on Thu03/24/19 at 0516, Until Thu03/24/19 at 1514, Itching, Per Epidural order. If both and nalbuphine are ordered, use diphenhydramine first, if ineffective, use nalbuphine second., Day of Surgery (Day of Procedure), Routine diphenhydrAMINE (BENADRYL) injection 12.5 mg(Linked Group 2) 12.5 mg, Intravenous, EVERY 6 HOURS PRN, Starting on Gerda 03/24/19 at 0516, Until Gerda 03/24/19 at 1514, Itching, If not effective, may repeat once after 30 minutes with each 6 hour dosing interval Per Epidural order. If both and nalbuphine are ordered, use diphenhydramine first, if ineffective, use nalbuphine second., Day of Surgery (Day of Procedure), Routine hydrALAZINE (APRESOLINE) injection 10 mg 10 mg, Intravenous, EVERY 1 HOUR PRN, Starting on Gerda 03/24/19 at 0516, Until Gerda 03/24/19 at 1514, High Blood Pressure, Target systolic blood pressure (SBP) less than 160 mmHg. Administer 10 mg IV . May repeat once in 15 minutes if SBP greater than target BP (caution if HR greater than 90). Use if labetalol ineffective after 1 hour., Routine HYDROmorphone (DILAUDID) injection 0.4 mg (CANCELED)(Linked Group 3) 0.4 mg, Intravenous, EVERY 4 HOURS PRN, Starting on Thu03/23/19 at 1456, Until Gerda 03/24/19 at 1027, Pain, moderate pain (4-6), May give an additional 0.2 mg in 30 minutes once if pain not relieved., Routine 1537 (See Alternative - Provider: Lauren Jackson RN)195 (Given - Provider: Lucia Jackson RN)2359 (Given - Provider: Anju Lara, SONNY) 0411 (Given - Provider: Anju Lara RN) HYDROmorphone (DILAUDID) injection 0.6 mg (CANCELED)(Linked Group 3) 0.6 mg, Intravenous, EVERY 4 HOURS PRN, Starting on Thu03/23/19 at 1456, Until Gerda 03/24/19 at 1027, Pain, severe pain (7-10), May give an additional 0.2 mg in 30 minutes once if pain not relieved., Routine 1537 (Given - Provider: Lauren Jackson RN)195 (See Alternative - Provider: Lucia Jackson RN)2359 (See Alternative - Provider: Anju Lara, RN) 0411 (See Alternative - Provider: Anju Lara, RN) labetalol (NORMODYNE,TRANDATE) injection 10-20 mg 10-20 mg, Intravenous, EVERY 1 HOUR PRN, Starting on Gerda 03/24/19 at 0516, Until Gerda 03/24/19 at 1514, High Blood Pressure, Target systolic blood pressure (SBP) less than 160 mmHg. Administer 10 mg over 2 minutes. May repeat every 15 minutes if SBP remains above goal. If inadequate effect with second 10 mg dose then increase dose to 20 mg for subsequent dosing every 15 minutes. Dose not to exceed 300 mg per day. Hold if pulse is less than 50 beats per minute., Routine lidocaine (XYLOCAINE) 10 mg/mL (1 %) injection 3 mg (COMPLETED) 3 mg (0.3 mL), Subcutaneous, ONCE PRN, 1 dose, Starting on Thu03/23/19 at 0612, Until Thu03/23/19 at 0625, for discomfort with PIV insertion, Day of Surgery (Day of Procedure), Routine 0625 (Given - Provider: Nestor Younger RN) lidocaine (XYLOCAINE) 10 mg/mL (1 %) injection 3 mg 3 mg (0.3 mL), Subcutaneous, ONCE PRN, 1 dose, Starting on Gerda 03/24/19 at 0516, Until Gerda 03/24/19 at 1514, for discomfort with PIV insertion, Recovery (Recovery-Hospital Unit), Routine morphine (PF) injection (CANCELED) ONCE PRN, Starting on Thu03/23/19 at 0947, Until Gerda 03/24/19 at 1514, Intra-Operative (Intra-Procedure), Routine 0947 (Given - Provider: Karl Dotson MD - Comment: medication inside the pain pump, not in the patient) naloxone (NARCAN) injection 0.2 mg 0.2 mg, Intravenous, EVERY 1 MIN PRN, Starting on Gerda 03/24/19 at 0516, Until Gerda 03/24/19 at 1514, Opioid Reversal, If respiratory rate less than 6 OR the patient is unable to arouse OR SpO2 is declining, Give for respiratory rate of less than or equal to 6 and patient is heavily sedated or unarousable. May repeat every 60 seconds to increase respiratory rate. DO NOT exceed 2 mg total dose. Per Epidural order., Day of Surgery (Day of Procedure), Routine naloxone (NARCAN) injection 0.2 mg 0.2 mg, Intravenous, ONCE PRN, 1 dose, Starting on Thu03/23/19 at 1740, Until Gerda 03/24/19 at 1514, Opioid Reversal, Routine ondansetron (ZOFRAN) injection 4-8 mg(Linked Group 4) 4-8 mg, Intravenous, EVERY 8 HOURS PRN, Starting on Gerda 03/24/19 at 0516, Until Gerda 03/24/19 at 1514, Nausea, If multiple antiemetics are ordered, use ondansetron first, prochlorperazine second, and metaclopramide third. Start with 4mg and if ineffective in 30 minutes, give an additional 4mg ondansetron (ZOFRAN) tablet 4-8 mg(Linked Group 4) 4-8 mg, Oral, EVERY 8 HOURS PRN, Starting on Gerda 03/24/19 at 0516, Until Gerda 03/24/19 at 1514, Nausea, Vomiting, If multiple antiemetics are ordered, use ondansetron first, prochlorperazine second, and metaclopramide third. PO Preferred. If patient unable to take PO, may give IV if ordered. Start with 4mg and if ineffective in 45 minutes, give an additional 4mg, Routine oxyCODONE (ROXICODONE) immediate release tablet 10-15 mg(Linked Group 5) 10-15 mg, Oral, EVERY 4 HOURS PRN, Starting on Thu03/23/19 at 1148, Until Gerda 03/24/19 at 1514, Pain, severe pain (7-10), Initial dose 10mg. If pain control not adequet in 60 minutes, give additional 5mg., Routine 1251 (Given - Provider: Lauren Jackson RN)1538 (See Alternative - Provider: Lauren Jackson RN)1951 (See Alternative - Provider: Lucia Jackson RN)2200 (See Alternative - Provider: Anju Lara RN)2358 (See Alternative - Provider: Anju Lara RN) 0410 (See Alternative - Provider: Anju Lara RN)0908 (Given - Provider: Felton Darden, SONNY) oxyCODONE (ROXICODONE) immediate release tablet 5-10 mg(Linked Group 5) 5-10 mg, Oral, EVERY 4 HOURS PRN, Starting on Thu03/23/19 at 1148, Until Thu03/24/19 at 1514, Pain, moderate pain (4-6), Initial dose 5mg. If pain control not adequet in 60 minutes, give additional 5mg., Routine 1251 (See Alternative - Provider: Lauren Jackson RN)1538 (Given - Provider: Lauren Jackson RN)1951 (Given - Provider: Lucia Jackson RN)2200 (Given - Provider: Anju Lara RN)2358 (Given - Provider: Anju Lara RN) 0410 (Given - Provider: Anju Lara RN)0908 (See Alternative - Provider: Felton Darden RN) sodium chloride 0.9 % (flush) flush 5-20 mL (CANCELED) 5-20 mL, Intravenous, EVERY 1 MIN PRN, Starting on Thu03/23/19 at 0612, Until Thu03/23/19 at 1556, flush, Flush pertains to all indwelling lines. Flush per protocol found in the job aid using the link provided on this medication record., Day of Surgery (Day of Procedure), Routine 1044 (Given - Provider: Karl Dotson MD - Comment: 10ML NACL MIXED WITH 91996 UNITS BACITRACIN AND ADDED TO 1000ML IRRIGATION) sodium chloride 0.9 % (flush) flush 5-20 mL 5-20 mL, Intravenous, EVERY 1 MIN PRN, Starting on Thu03/24/19 at 0516, Until Thu03/24/19 at 1514, flush, Flush pertains to all indwelling lines. Flush per protocol found in the job aid using the link provided on this medication record., Recovery (Recovery-Hospital Unit), Routine Linked Groups Order Group 1: acetaminophen (TYLENOL) tablet 650 mgJump to med 650 mg, Oral, EVERY 4 HOURS PRN, Starting on Gerda 03/24/19 at 0516, Until Gerda 03/24/19 at 1514, Pain, Mild pain (1-3), Do not exceed 4000 mg acetaminophen per day., Routine Or acetaminophen (TYLENOL) suppository 650 mgJump to med 650 mg, Rectal, EVERY 4 HOURS PRN, Starting on Gerda 03/24/19 at 0516, Until Gerda 03/24/19 at 1514, Pain, Mild pain (1-3), Give per rectum (VA) if unable to take PO. Do not exceed 4000 mg acetaminophen per day., Routine Group 2: diphenhydrAMINE (BENADRYL) injection 12.5 mgJump to med 12.5 mg, Intravenous, EVERY 6 HOURS PRN, Starting on Thu03/24/19 at 0516, Until Gerda 03/24/19 at 1514, Itching, If not effective, may repeat once after 30 minutes with each 6 hour dosing interval Per Epidural order. If both and nalbuphine are ordered, use diphenhydramine first, if ineffective, use nalbuphine second., Day of Surgery (Day of Procedure), Routine Or diphenhydrAMINE (BENADRYL) capsule 25 mgJump to med 25 mg, Oral, EVERY 6 HOURS PRN, Starting on Thu03/24/19 at 0516, Until Gerda 03/24/19 at 1514, Itching, Per Epidural order. If both and nalbuphine are ordered, use diphenhydramine first, if ineffective, use nalbuphine second., Day of Surgery (Day of Procedure), Routine Group 3: HYDROmorphone (DILAUDID) injection 0.2 mg (CANCELED) 0.2 mg, Intravenous, EVERY 4 HOURS PRN, Starting on Thu03/23/19 at 1456, Until Thu03/24/19 at 1027, Pain, mild pain (1-3), May give an additional 0.2 mg in 30 minutes once if pain not relieved., Routine Or HYDROmorphone (DILAUDID) injection 0.4 mg (CANCELED)Jump to med 0.4 mg, Intravenous, EVERY 4 HOURS PRN, Starting on Thu03/23/19 at 1456, Until Gerda /14/19 at 1027, Pain, moderate pain (4-6), May give an additional 0.2 mg in 30 minutes once if pain not relieved., Routine Or HYDROmorphone (DILAUDID) injection 0.6 mg (CANCELED)Jump to med 0.6 mg, Intravenous, EVERY 4 HOURS PRN, Starting on Thu03/23/19 at 1456, Until Thu03/24/19 at 1027, Pain, severe pain (7-10), May give an additional 0.2 mg in 30 minutes once if pain not relieved., Routine Group 4: ondansetron (ZOFRAN) tablet 4-8 mgJump to med 4-8 mg, Oral, EVERY 8 HOURS PRN, Starting on Thu03/24/19 at 0516, Until Thu03/24/19 at 1514, Nausea, Vomiting, If multiple antiemetics are ordered, use ondansetron first, prochlorperazine second, and metaclopramide third. PO Preferred. If patient unable to take PO, may give IV if ordered. Start with 4mg and if ineffective in 45 minutes, give an additional 4mg, Routine Or ondansetron (ZOFRAN) injection 4-8 mgJump to med 4-8 mg, Intravenous, EVERY 8 HOURS PRN, Starting on Thu03/24/19 at 0516, Until Thu03/24/19 at 1514, Nausea, If multiple antiemetics are ordered, use ondansetron first, prochlorperazine second, and metaclopramide third. Start with 4mg and if ineffective in 30 minutes, give an additional 4mg Group 5: oxyCODONE (ROXICODONE) immediate release tablet 5-10 mgJump to med 5-10 mg, Oral, EVERY 4 HOURS PRN, Starting on Thu03/23/19 at 1148, Until Thu03/24/19 at 1514, Pain, moderate pain (4-6), Initial dose 5mg. If pain control not adequet in 60 minutes, give additional 5mg., Routine Or oxyCODONE (ROXICODONE) immediate release tablet 10-15 mgJump to med 10-15 mg, Oral, EVERY 4 HOURS PRN, Starting on Thu03/23/19 at 1148, Until Gerda 03/24/19 at 1514, Pain, severe pain (7-10), Initial dose 10mg. If pain control not adequet in 60 minutes, give additional 5mg., Routine documented in this encounter Care Teams Motor Transport Inspector Relationship Specialty Start Date End Date Bob Day MD [address] [place] [address] PCP - General Family Medicine 01/18/18 07/26/20 documented as of this encounter
--- OUTSIDE RECORDS SUMMARY | 2024-04-05 16:31 | XMS_ITS | Encounter Summary ---
Author Organization Formerly [facility] Address [facility] [place] [address] Care Team Providers Care Vehicle Fuel Systems Converter Name Role Phone Bob Day MD Primary Care Provider [phone] Encounter Details Date Type Department Care Team (Late st Contact Info) Description 08/12/2018 Telephone [place] [id number] Melani Ardon, RN Social History Tobacco Use Types Packs/Day [...] Miscellaneous Notes * Telephone Encounter - Melani Ardon RN - 08/12/2018 4:15 PM EDT Nursing Triage - Phone Note DATE OF CALL: 08/12/2018 TIME OF CALL: 1:41PM PATIENT DATE OF : 1960 CALLER: Pt to the general surgery clinic nurses line Learning Needs Assessment Reviewed: Yes SUBJECTIVE - I had an infection after surgery and I was put on antibiotics in [place]. I ran outof meds and the hole is still oozing PERTINENT PAST MEDICAL HISTORY: Pt is s/p Case Date: 07/12/2018 ?? Surgeon: Surgeon(s) and Role: * Izzy Blanco MD - Primary ?? Preoperative diagnosis: VENTRAL HERNIA ?? Postoperative diagnosis: VENTRAL HERNIA ?? Procedure(s) (LRB): LAPAROSCOPIC HERNIA, VENTRAL, INCARCERATED, W-WO MESH (WRVU 14.94) (N/A) MODIFIER ROBOT,DAVINCI XI (N/A) MODIFIER MESH,BARD,ECHO POSITIONING SYSTEM (N/A) ? Findings: 3 cm fascial defect, containing fat from colon, reduced and closed. [address] mesh placed in IPOM plus fashion NURSING OBJECTIVE/ASSESSMENT: Pt calling about the above. She states that the hole that is oozing is the one Dr. Blanco debrided some eschar off of at her last visit. The drainage is yellow, but thinner and mostly clear, not purulent. She states that she covers the area with a band aid and changes that once a day. She denies redness around the area. She states that the area is sore today. She also mentioned that 2 nights ago she went to the ED at [facility] for cellulitis in her leg. She states it starts at her right ankle and goes up the lateral side of her leg about half way up her calf and there is a hard bump at the top. She states that they did an ultrasound of her vein and there is not a blood clot. She states they put her on Keflex for 8 days. INTERVENTION/PLAN/ FOLLOW UP: Discussed with Dr. Blanco. I reassured the patient that the drainage she is reporting is not concerning. She will call if she develops any signs of infection. Pt verbalizes her understanding and agrees with the plan. If your symptoms do not improve, or they worsen, report to your local emergency department. CALLER AGREES: Yes PCP: Bob Day MD documented in this encounter Plan of Treatment Upcoming Encounters Date Type Department Care Team (Latest Contact Info) Description 04/06/2024 11:30 AM EST Hospital Encounter Out[facility] [place] [address] Cadence Eric MD [facility] [place] [address] 04/06/2024 11:30 AM EST - 04/06/2024 12:50 PM EST Surgery [facility] [place] [address] Cadence Eric MD [facility] DR [place] [address] IMPLANT NEUROSTIMULATOR ELECTRODES, PERIPHERAL NERVE (WRVU 5.76) 04/14/2024 2:30 PM EST Office Visit [facility] [place] [phone] Cadence Eric MD [facility] [place] [address] Scheduled Procedures Name Priority Associated Diagnoses Date/Ti [...] on filedocumented in this encounter Care Teams Vehicle Fuel Systems Converter Relationship Specialty Start Date End Date Bob Day MD [address] [place] [address] PCP - General Family Medicine 01/18/18 07/26/20 documented as of this encounter
--- OUTSIDE RECORDS SUMMARY | 2024-04-05 16:31 | XMS_ITS | Encounter Summary ---
Author Organization [facility] [place] [address] Care Team Providers Care Compensation Agent Name Role Phone Bob Day MD Primary Care Provider [phone] Reason for Visit * Auth/Cert Specialty Diagnoses / Procedures Referred By Cindy wooten Referred To Contact Diagnoses VENTRAL HERNIA Procedures PRO LAP, VENTRAL HERNIA REPAIR, INCARCERATED LAPAROSCOPIC HERNIA, VENTRAL, INCARCERATED, W-WO MESH (WRVU 14.94) MODIFIER ROBOT,DAVINCI XI MODIFIER MESH,BARD,ECHO POSITIONING SYSTEM Referral ID Status Reason Start Date Expiration Date Visits Re quested Visits Authorized [id number] 1 1 Encounter Details Date Type Department Care Team (Latest Contact Info) Description 07/12/2018 5:44 AM EST - 07/15/2018 3:41 PM [facility] Hospital Encounter [address] [place] [address] Izzy Blanco MD [facility] [address] S/P repair of ventral hernia Discharge Disposition: Home Social History Tobacco Use [...] Sign Reading Time Taken Comments Blood Pressure 132/69 07/15/2018 12:07 PM EST Pulse 65 07/14/2018 4:07 PM EST Temperature 36.5 ??C (97.7 ??F) 07/15/2018 12:[address] Respiratory Rate 18 07/15/2018 12:07 PM EST Oxygen Saturation 97% 07/15/2018 12:07 PM EST Inhaled Oxygen Concentration - - Weight 106.6 kg (235 lb) 07/12/2018 6:21 AM EST Height 152.4 cm (5') 07/12/2018 6:21 AM EST Body Mass Index 45.9 07/12/2018 6:21 AM EST documented in this encounter Discharge Summaries * Danielle Hunter PA - 07/13/2018 8:19 AM EST Images from the original note were not included. General Surgery Discharge Summary Patient Name: Etelvina Cuadra Patient Age: 57 y.o. Birthdate: 1960 Admit date: 07/12/2018 Discharge date and time: 07/15/2018 Attending Physician: Izzy Blanco MD Primary Diagnosis: Ventral Hernia Secondary Diagnosis: Opiate Analgesic Use; Morbid Obesity; HLP Operations and Procedures: Robotic Laparoscopic Repair of Incarcerated Ventral Hernia with Mesh Surgeons: Surgeon(s) and Role: * Izzy Blanco MD - Primary History of Present Illness: Etelvina Cuadra is a 57 y.o. female referred by Bob Day MD for repeat evaluation of a incisional ventral hernia. She underwent lap cholecystectomy some years agoand developed a fairly large incisional hernia in her epigastric supraumbilical port site. She was last seen a couple months ago with Dr. Blanco. At that time her hernia was symptomatic but only mildly so. Since that time she has started to complain of frequent bouts of nausea and vomiting in the setting of pain around her hernia. She stated at one point she had feculent emesis. Since that time she started taking MiraLAX daily which has helped control her bowel movements and seemed to allevia te her symptoms somewhat. She has been trying to lose weight, however, she needed to restart the weight and wellness program due to insurance changes. Hospital Course: Etelvian Cuadra is a 57 y.o. female who was admitted on 07/12/2018 for robotic laparoscopic repair of incarcerated ventral hernia with mesh. The operative course was uneventful. On POD# 0maureene was started on a regular diet. Her pain was managed with a Ketamine drip, along with her home medications of Oxycontin and Oxycodone. She also had Tylenol and Toradol scheduled for pain management. On POD# 2 Lidoderm patches were added to her regimen. The ketamine was d/c'd on the morning of POD# 2 without any problems. She was initially using a Purewick to assist with urination, but later inthe day of POD# 1 she started ambulating to the bathroom to void, and she was not having any difficulty with voiding. On POD# 1 & 2 the dressings were dry and intact and the wounds were benign. She did not have a bowel movement prior to discharge but was passing flatus and taking PO without difficulty. Prior to discharge on POD# 2 Etelvina Cuadra was afebrile, with stable vital signs. On POD# 2,she was discharged to home in stable condition. Vital Signs: Last value Range last 24hrs Temperature Temp: 36.5 ??C (97.7 ??F) Temp: [36.2 ??C (97.2 ??F)-36.6 ??C (97.9 ??F)] Heart Rate Heart Rate: 65 Heart Rate: [65-67] Blood Pressure BP: 132/69 BP: (119-148)/(69-90) Respiratory Rate Resp: 18 Resp: [18-22] SpO2 SpO2: 97 % SpO2: [95 %-99 %] Pertinent Lab Data: Recent Labs 03// 1256 WBC 8.7 HGB 11.5* HCT 36.5 PLATELET 332 Recent Labs 03/05/19 1256 NA 139 K 4.0 CL 104 CO2 27 BUN 9 CREATININE 0.86 GLUCOSE 105 CALCIUM 9.0 Physical Exam: General: NAD, resting comfortably, pleasant, conversant HEENT: PERRL, anicteric sclerae CVS: Murmur noted; otherwise regular rhythm Pulm: CTAB Abd: soft, appropriately tender, non-distended. 4 port sites with dermabond covering with ecchymosis noted surrounding port site on the left upper abdomen, otherwise not evidence of erythema or edema. No drainage or s/s of infection noted. : no problems with voiding Skin: warm, dry Ext: no c/c/e Neuro: CN 2-12 grossly intact, nonfocal,moving all four extremities spontaneously Imaging: Mammo Screening Cad And Isaac Bilateral Result Date: 06/30/2018 BILATERAL MAMMOGRAPHY REASON FOR EXAM: Screening TECHNIQUE: CC and MLO views were obtained of each breast using standard 2-D mammography as well as 3-D tomosynthesis. Computer aided detection was used. This is compared with prior images. FINDINGS: The breasts are almost entirely fatty. There are nosuspicious microcalcifications, masses, or areas of distortion. The [...] if earlier screening and breast MRI are a ppropriate. Screening should continue as long as a woman is in good health and is expected to live 10 years or longer. Screening mammography may not detect 10- 15% of breast cancers. Women should report any breast changes to a health care provider right away. A result letter has been sent to this patient by the [facility]. BIRADS CATEGORY 1: NEGATIVE Condition at discharge: Stable Mental Status: awake and alert, oriented x 3 Medications: Your Medications Continued medications with new dosing Dose Details * oxyCODONE 20 mg Tr12 Commonly known as: OxyCONTIN Take 20 mg by mouth every 12 hours. What changed: Another medication with the same name was changed. Make sure you understand how and when to take each. 20 mg Refills: 0 * oxyCODONE 10 mg Tab Commonly known as: ROXICODONE Take 1 tablet by mouth every 3 hours as needed (pain). What changed: See the new instructions. 10 mg Quantity: 25 tablet Refills: 0 * This list has 2 medication(s) that are the same as other medications prescribed for you. Read thedirections carefully, and ask your doctor or other care provider to review them with you. Continued medications, unchanged Dose Details acetaminophen 500 mg Tab Commonly known as: TYLENOL Take 2 tablets by mouth every 6 hours as needed for Pain. 1000 mg Refills: 0 citalopram 20 mg Tab Commonly known as: CeleXA Take 20 mg by mouth daily. 20 mg Refills: 0 EPINEPHrine 1 mg/mL Kit Inject as directed as needed. Refills: 0 fenofibrate 160 mg Tab Commonly known as: TRIGLIDE nightly. Refills: 0 FLUARIX QUAD [id number] (PF) 60 mcg (15 mcg x 4)/0.5 mL Syrg inject 0.5 milliliter intramuscularly Generic drug: flu vacc [id number] 6mos up(PF) Refills: 0 levothyroxine 100 mcg Tab Commonly known as: SYNTHROID 100 MCG = 1 Tablet(s), PO, Once daily Refills: 0 morphine 100 % Powd 10 mg/mL by Intrathecal route continuous. Quantity: 42 mL Refills: 0 polyethylene glycol 17 gram Pwpk Commonly known as: MIRALAX Take by mouth. Refills: 0 Disposition: Home Allergies: Allergies Allergen Reactions ??? Peanut Anaphylaxis ??? Peanut Oil Anaphylaxis ??? Rice Anaphylaxis ??? Wheat Anaphylaxis ??? Wheat Bran Anaphylaxis ??? Wheat Flour Anaphylaxis ??? Wheat Germ Oil Anaphylaxis ??? Wheat Starch Anaphylaxis ??? Canine Protein Containing Products Itching ??? Hydrocodone Other (See Comments) Bad headache ??? Hydrocodone-Acetaminophen Other (See Comments) Bad headache ??? Hydrocodone-Ibuprofen Other reaction(s): Unknown/Not Verified ??? Rofecoxib ??? Tetracycline Itching ??? Tetracyclines Itching ??? Wool Itching and Rash Outpatient Services/Studies: No discharge procedures on file. Scheduled Appointments: Future Appointments and Orders Future Appointments and Orders Future Appointments Provider Department Dept Phone 08/12/2018 3:00 PM Izzy Blanco MD General Surgery at [place] Arrive at: Receptionist/Telephone Operator Area [phone] Future Orders Complete By Carlotta Magana standard [EQ135 Custom] As directed Process Instructions: Scheduling Instructions: Comments: Etelvina Cuadra [address] [place] [id number] (home) Telephone Information: Diagnosis:Ventral Hernia with Unsteady gait Patient's: Hgt: 152.4 cm Wgt: 106.6 kg VENDOR: [facility] Ordering: Front wheel walker Deliver to [facility] hospital room #: 324 Questions: Vendor Name/Contact information: [facility] Instructions Given to Patient at Discharge: Instructions following Laparoscopic Ventral Hernia Repair Wound Care: You may now shower and get incisions wet. Pat dry immediately following. Do not scrub them vigorously for the next 2-3 weeks. Do not soak incision(s) under water for the next 2 weeks (i.e. soaking in bath or swimming) as this may promote a wound infection. Your stitches will dissolve and do not need to be removed. Activity: No heavy lifting more than 10 pounds for the next 4 weeks, then you may gradually lift heavier objects as tolerated by discomfort. Otherwise activity as tolerated by your comfort level. Driving: Do not drive while taking narcotic pain medications. If you are no longer taking pain medication, it should safe to drive when it no longer hurts getting in and out of the vehicle, and when you can quickly move your leg from the gas to the brake pedal without it causing pain. Call Doctor for: Please call if you notice worsening redness or drainage from incision(s) lasting longer than 5 days after your surgery, any foul-smelling drainage from the incision, pain not controlled by pain medications, persistent nausea and vomiting, or for any fevers greater than 101.3 F. The number for questions is [phone] before 5 PM weekdays and [phone] after 5 PM and weekends. Pain Medication: -Take the medication exactly as it is prescribed and make sure to read all instructions that come with the medication. You do not have to take the medication if you do not feel your pain requires it. -Over the next couple of days you should be requiring less of this medication to control you pain, so that eventually you will not need any at all. You do not have to take all of the medication that was prescribed, you may have some left over. -You may use ibuprofen (motrin, advil) or tylenol in addition to this medication if your pain is not controlled. -Taking more than the prescribed amount of medication or using with alcohol or other drugs can cause you to stop breathing resulting in coma, brain damage or . -Opioids can slow reaction time, cause drowsiness or cloud judgement. No driving for 8 hours after any dose of opioid pain medication if one was prescribed for you. -Using this drug may cause addiction. While addiction is more common in people with a personal or family history of addiction, it can occur in anyone. -Opioids are at risk of being diverted by anyone with access to your home. Opioids should be storedin a safe and secure place, such as a locked cabinet or safe. -Unused opioids should be disposed of appropriately. They may be returned to a take-back location, or mixed with a small amount of water and poured over an undesirable waste such as used coffee grounds or cat litter. -Please note that most pain medications can cause constipation. You may use a stool softener such as Miralax to prevent this. You were prescribed 25 tablets of Oxycodone 10mg, so that you are able to take 1 tablet every 3 hours for the next 5 days. In the next couple of days, you should be weaning yourself off the medication, so that on day 6 you are taking only 1 tablet 3 times a day just as you had been taking prior to surgery. Other Means for Pain Relief: Other than medications. ?? Learn deep breathing exercises or meditation to help you relax ?? Reduce stress ?? Your body produces natural endorphins from exercise which can help reduce pain. Even walking is considered exercise. Talk with your provider/surgical team about what exercises are appropriate for you to perform. ?? You may use a heating pad or apply ice to the painful area unless specifically discouraged by the surgical team. ?? Find ways to distract yourself from the pain. Follow-up: You have a follow-up appointment scheduled in the General Surgery clinic with Dr. Blanco on August at 3pm. Signed: JENNY Hoyos 07/15/2018 Primary Care Physician: Bob Day MD [address] [place] [phone] documented in this encounter Discharge Instructions * Discharge Instructions* Danielle Hunter PA - 07/15/2018 1:28 PM EST Scheduled Appointments: Future Appointments and Orders Future Appointments and Orders Future Appointments Provider Department Dept Phone 08/12/2018 3:00 PM Izzy Blanco MD General Surgery at [facility] Arrive at: Receptionist/Telephone Operator Area Future Orders Complete By Expires ?? Walker standard [EQ135 Custom] As directed ? Process Instructions: ? Scheduling Instructions: ? Comments: ?? Etelvina Cuadra [address] [facility] [address] (home) Telephone Information: ? Diagnosis:Ventral Hernia with Unsteady gait ?? Patient's: Hgt: 152.4 cm Wgt: 106.6 kg ?? VENDOR: [facility] Ordering: Front wheel walker Deliver to [facility] hospital room #: 324 ?? Questions: ? Vendor Name/Contact information: [facility] ?? Instructions Given to Patient at Discharge: Instructions following Laparoscopic Ventral Hernia Repair Wound Care: You may now shower and get incisions wet. Pat dry immediately following. Do not scrub them vigorously for the next 2-3 weeks. Do not soak incision(s) under water for the next 2 weeks (i.e. soaking in bath or swimming) as this may promote a wound infection. Your stitches will dissolve and do not need to be removed. Activity: No heavy lifting more than 10 pounds for the next 4 weeks, then you may gradually lift heavier objects as tolerated by discomfort. Otherwise activity as tolerated by your comfort level. Driving: Do not drive while taking narcotic pain medications. If you are no longer taking pain medication, it should safe to drive when it no longer hurts getting in and out of the vehicle, and when you can quickly move your leg from the gas to the brake pedal without it causing pain. Call Doctor for: Please call if you notice worsening redness or drainage from incision(s) lasting longer than 5 days after your surgery, any foul-smelling drainage from the incision, pain not controlled by pain medications, persistent nausea and vomiting, or for any fevers greater than 101.3 F. The number for questions is [phone] before 5 PM weekdays and [phone] after 5 PM and weekends. Pain Medication: -Take the medication exactly as it is prescribed and make sure to read all instructions that come with the medication. -Over the next couple of days you should be requiring less of this medication to control you pain, so that eventually you will not need any at all. You do not have to take all of the medication that was prescribed, you may have some left over. -You may use ibuprofen (motrin, advil) or tylenol in addition to this medication if your pain is not controlled. -Taking more than the prescribed amount of medication or using with alcohol or other drugs can cause you to stop breathing resulting in coma, brain damage or . -Opioids can slow reaction time, cause drowsiness or cloud judgement. No driving for 8 hours after any dose of opioid pain medication if one was prescribed for you. -Using this drug may cause addiction. While addiction is more common in people with a personal or family history of addiction, it can occur in anyone. -Opioids are at risk of being diverted by anyone with access to your home. Opioids should be storedin a safe and secure place, such as a locked cabinet or Channelkit. -Unused opioids should be disposed of appropriately. They may be returned to a take-back location, or mixed with a small amount of water and poured over an undesirable waste such as used coffee grounds or cat litter. -Please note that most pain medications can cause constipation. You may use a stool softener such as Miralax to prevent this. You were prescribed 25 tablets of Oxycodone 10mg, so that you are able to take 1 tablet every 3 hours for the next 5 days. In the next couple of days, you should be weaning yourself off the medication, so that on day 6 you are taking only 1 tablet 3 times a day just as you had been taking prior to surgery. Other Means for Pain Relief: Other than medications. ?? Learn deep breathing exercises or meditation to help you relax ?? Reduce stress ?? Your body produces natural endorphins from exercise which can help reduce pain. Even walking is considered exercise. Talk with your provider/surgical team about what exercises are appropriate for you to perform. ?? You may use a heating pad or apply ice to the painful area unless specifically discouraged by the surgical team. ?? Find ways to distract yourself from the pain. Follow-up: You have a follow-up appointment scheduled in the General Surgery clinic with Dr. Blanco on August at 3pm. documented in this encounter Medications at Time of Discharge Medication Sig Dispensed Refills Start Date End Date calcium carbonate-vitamin D3 (Os-Nico 500 + D3) 500mg (1,250mg) -600 unit Tablet Take 1 tablet by mouth Daily. 01/16/2016 aspirin EC (Aspirin Low Dose) 81 mg Tablet, Delayed Release (E.C.) Take by mouth Daily. 01/16/201602/20 oxyCODONE (ROXICODONE) 10 mg Tablet Take 1 tablet by mouth every 3 hours as needed (pain). 25 tablet 07/15/2018 02/27/2020 polyethylene glycol (MIRALAX) 17 gram Powder in Packet Take by mouth as needed. 05/09/2020 citalopram (CELEXA) 20 mg Tablet Take 20 mg by mouth daily. 02/09/2019 morphine 100 % Powd 10 mg/mLIndications:Pos t laminectomy syndrome,Postlaminec karolina syndrome by Intrathecal route continuous. 42 mL 04/12/2018 09/15/2018 FLUARIX QUAD [id number], PF, 60 mcg (15 mcg x 4)/0.5 [...] as of this encounter Progress Notes * Moody Ko RN - 07/15/2018 3:04 PM EST Pt d/c to home per md order. Patient AOx4 hrr, lung sounds clear, no n/v sob or chest pain at time of discharge. +bs, lbm 11 Jul 2018, voiding clear yellow urine. Patient ambulating independently withFWW at this time. Pain well controlled with oxycodone, tylenol, Toradol. All LDA's removed. All belongings home with patient. Prescriptions given to patient, all discharge instructions reviewed with patient. All questions answered. Please see flowsheet for full assessment. Moody Ko, RN * Radha Chilel, PT - 07/15/2018 2:16 PM EST Physical Therapy Contact Note Patient seen for gait and stair training. Pt performed without concern for safety. Patient cleared for DC home from mobility standpoint. Full note to follow. Will continue to follow up as appropriate during hospital course. Please page with any questions or concerns. Radha Chilel PT, DPT Pager: [phone] 07/15/18 Inpatient Rehabilitation Department * Radha Chilel, PT - 07/15/2018 1:27 PM EST Physical Therapy Contact Note Attempted to visit patient this AM for follow up physical therapy and progression of functional mobility, however pt currently deferring 2/2 awaiting ketamine cessation. She feels she is still unsteady on her feet while on the ketamine and wishes to perform stair trial when discontinued. Pt unsafe y esterday to have attempted stairs. Will attempt to f/u this PM or as appropriate/able to assess fordischarge. Will continue to follow up as appropriate during hospital course. Please page with any questions or concerns. Radha Chilel PT, DPT Pager: [phone] 07/15/18 Inpatient Rehabilitation Department * Danielle Hunter PA - 07/15/2018 11:07 AM EST Minimally Invasive Surgery Inpatient Progress Note ID: Etelvina Cudara is a 57 y.o. female s/p robotic laparoscopic repair of incarcerated ventral herniawith mesh. Now 3 Days Post-Op. 24hr events: ?? No acute events ?? Ketamine drip decreased; Lidoderm patches ordered Subjective: She admits to feeling a little better this am than she did yesterday. She states the pain regimen is currently working. She is asking to have the Ketamine stopped, as she feels it is causing her to be fuzzy in the head. She feels the fuzziness is not safe for her when walking, and she knows she needs to get up and ambulate prior to going home. She did ambulate a short distance yesterday, but otherwise has only been getting up and ambulating to the bathroom. She continues voidingwithout any problems. She continues expressing her nervousness about going home and having to climb4 steps into her home. PT has not yet evaluated her for this. She is tolerating a regular diet without any problems. She currently denies n/v/cp/sob. O: Last value Range last 24hrs Temperature Temp: 36.5 ??C (97.7 ??F) Temp: [36.2 ??C (97.2 ??F)-36.6 ??C (97.9 ??F)] Heart Rate Heart Rate: 65 Heart Rate: [65-67] Blood Pressure BP: 131/73 BP: (119-148)/(68-90) Respiratory Rate Resp: 18 Resp: [16-22] SpO2 SpO2: 96 % SpO2: [95 %-99 %] 07/14 0701 - 07/15 0700 In: - Out: 2650 [Urine:2650] Physical Exam: General: NAD, resting comfortably, pleasant, conversant HEENT: PERRL, anicteric sclerae CVS: murmur noted; otherwise RRR Pulm: CTAB Abd: soft, appropriately tender, non-distended. 4 port sites with dermabond covering with ecchymosis noted surrounding port site on the left upper abdomen, otherwise not evidence of erythema or edema. No drainage or s/s of infection noted. : no problems with voiding Skin: warm, dry Ext: no c/c/e Neuro: non-focal, moving all four extremities spontaneously Labs: Recent Labs 07/13/18 1256 WBC 8.7 HGB 11.5* HCT 36.5 PLATELET 332 Recent Labs 07/13/18 1256 NA 139 K 4.0 CL 104 CO2 27 BUN 9 CREATININE 0.86 GLUCOSE 105 CALCIUM 9.0 Microbiology: None New Studies: None ASSESSMENT: Etelvina Cuadra is a 57 y.o. female s/p robotic laparoscopic repair of incarcerated ventral hernia with mesh. Now 3 Days Post-Op Progressing post-operatively without concerns. Ketamine stopped in anticipation of d/c later today. PLAN: NEURO: Pain control with home Oxycodone and Oxycontin; tylenol, toradol and Lidoderm. Continue homeCelexa. CV: No acute issues. PULM: Encourage frequent ambulation and IS use GI: Diet Regular diet : no problems with voiding FEK: HLIV ID: no indication of active infection HEME: no indication of active bleeding ENDO: continue home Synthroid PROPHYLAXIS: Lovenox for DVT DISPO: Floor status, Full Code PT c/s to assist with ambulation, reassurance of ability to navigate stairs. Plan for discharge later today based on progress. 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 A letter describing our affiliations was reviewed with them and they were educated about their right to choose where referrals are placed. Patient requests referral to [facility]ated @ [facility] [place], [place] Expected date of discharge: 07/15?2018 Referral routed to the Chief Information Officer for matching with agency/vendor and to provide any required information. * Margaret Royal MD - 07/14/2018 3:16 PM EST Acute Pain Service - Daily Visit Note Patient Name: Etelvina Cuadra Problem List: Active Hospital Problems Diagnosis ??? Ventral hernia ??? S/P repair of ventral hernia Resolved Hospital Problems No resolved problems to display. Active Non-Hospital Problems Diagnosis ??? Incisional hernia, with obstruction, without gangrene ??? Morbid obesity with BMI of 50.0-59.9, adult ??? Cholecystitis ??? Encounter for long-term opiate analgesic use ??? CIS - Entered not Verified ??? Postlaminectomy syndrome ??? CIS - Sciatica Interval History: Ms. Cuadra has continued to do well on current analgesic regimen. She has been able to tolerate PO without issue, and has ambulated to the restroom without difficulty. She is awaiting working with PT this afternoon to work on climbing four stairs to ensure that she feels comfortable being dischargedto home tomorrow. Review of Systems: Sedation Level: none Pruritis/Skin: none GI/Bowels/Nausea; none Vital Signs: Last Set of Vitals BP 130/68 (BP Location (NBP): Right arm, Patient Position: Sitting) Pulse 80 Temp 36.6 ??C (97.9 ??F) (Oral) Resp 16 Ht 152.4 cm (5') Wt 106.6 kg (235 lb) SpO2 95% BMI 45.90 kg/m?? Physical Exam: Affect: Appropriate Pain Behaviors: none ?? Analgesics: Acetaminophen 650 mg Q6H scheduled Ketamine 2 mcg/kg/min Oxycontin 20 mg BID (home medication) Ketorolac 15 mg Q6H Oxycodone 10 mg Q3 PRN (eight doses in 24 hours) Lidoderm patches x 3 ?? Assessment: Ms. Cuadra is a 57 year old female with PMhx of chronic opioid dependence with a significant anxiety component to her discomfort now POD #2 following robotic assisted ventral hernia repair, currently with adequate pain control and good functional status. ?? Plan: ?? Continue scheduled analgesics as above. Now that pt is POD#2, and will be POD #3 on date of discharge, escalation of opioid medication is not recommended. ?? Ketamine successfully weaned to 2 mcg/kg/min; continue until two hours prior to discharge. Place three new lidocaine patches prior to discharge; pt should not require a prescription following discharge. ?? Continue to consider addition of gabapentin 300 mg TID to pt's regimen if willing, though pt is extremely specific about her medication regimen. ?? MARGARET A SEIFFERT, MD 07/14/2018 Acute Pain Service Pager: [phone] * Danielle Hunter PA - 07/14/2018 11:22 AM EST Minimally Invasive Surgery Inpatient Progress Note ID: Etelvina Cuadra is a 57 y.o. female s/p robotic laparoscopic repair of incarcerated ventral herniawith mesh. Now 2 Days Post-Op. 24hr events: ?? No acute events Subjective: She admits to feeling ok this am, but admits to having pain in her abdomen. She does admit the pain regimen is currently working effectively. She did start ambulating to the bathroom yesterday afternoon, and continued doing so during the night. She continues expressing her nervousness about going home and having to climb 4 steps into her home. PT has not yet evaluated her for this. She has not had any problems with voiding. She is tolerating a regular diet without any problems. She currently denies n/v/cp/sob. O: Last value Range last 24hrs Temperature Temp: 36.7 ??C (98.1 ??F) Temp: [36.6 ??C (97.9 ??F)-37 ??C (98.6 ??F)] Heart Rate Heart Rate: 80 Heart Rate: -- Blood Pressure BP: 128/67 BP: (110-133)/(63-69) Respiratory Rate Resp: 16 Resp: [16] SpO2 SpO2: 95 % SpO2: [95 %-100 %] 07/13 0701 - 07/14 0700 In: 1175 [P.O.:1175] Out: - Physical Exam: General: NAD, resting comfortably, pleasant, conversant HEENT: PERRL, anicteric sclerae CVS: murmur noted; otherwise RRR Pulm: CTAB Abd: soft, appropriately tender, non-distended. 4 port sites with dermabond covering with ecchymosis noted surrounding port site on the left upper abdomen, otherwise not evidence of erythema or edema. No drainage or s/s of infection noted. : no problems with voiding Skin: warm, dry Ext: no c/c/e Neuro: non-focal, moving all four extremities spontaneously Labs: Recent Labs 07/13/18 1256 WBC 8.7 HGB 11.5* HCT 36.5 PLATELET 332 Recent Labs 07/13/18 1256 NA 139 K 4.0 CL 104 CO2 27 BUN 9 CREATININE 0.86 GLUCOSE 105 CALCIUM 9.0 Microbiology: None New Studies: None ASSESSMENT: Etelvina Cuadra is a 57 y.o. female s/p robotic laparoscopic repair of incarcerated ventral hernia with mesh. Now 2 Days Post-Op Progressing post-operatively with pain management issues; appreciate APS assistance and guidance. PLAN: NEURO: Pain control with Ketamine along with home Oxycodone and Oxycontin; tylenol and toradol alsoavailable. Continue home Celexa. CV: No acute issues. PULM: Encourage frequent ambulation and IS use GI: Diet Regular diet : no problems with voiding (purewick currently being used) FEK: KVO for Ketamine; check lytes and replace prn ID: no indication of active infection HEME: no indication of active bleeding ENDO: continue home Synthroid PROPHYLAXIS: Lovenox for DVT DISPO: Floor status, Full Code PT c/s to assist with ambulation, reassurance of ability to navigate stairs. Plan for discharge later today or tomorrow based on progress. JENNY HOYOS 07/14/2018 * Margaret Royal MD - 07/13/2018 10:52 AM EST Acute Pain Service - Daily Visit Note Patient Name: Etelvina Cuadra Problem List: Active Hospital Problems Diagnosis ??? Ventral hernia ??? S/P repair of ventral hernia Resolved Hospital Problems No resolved problems to display. Active Non-Hospital Problems Diagnosis ??? Incisional hernia, with obstruction, without gangrene ??? Morbid obesity with BMI of 50.0-59.9, adult ??? Cholecystitis ??? Encounter for long-term opiate analgesic use ??? CIS - Entered not Verified ??? Postlaminectomy syndrome ??? CIS - Sciatica Interval History: Ms. Cuadra has reported adequate post-operative pain control on the current analgesic regimen; she reported some disturbing dillusions last evening, which have completely resolved with the decrease inketamine gtt. Ms. Cuadra does state she has moderate discomfort over her abdomen, but has been very satisfied withher pain control. She is, however, very apprehensive when looking toward discharge. Review of Systems: Sedation Level: none Pruritis/Skin: none GI/Bowels/Nausea; None; tolerating PO without issue Vital Signs: Last Set of Vitals BP 110/69 Pulse 80 Temp 36.6 ??C (97.9 ??F) (Oral) Resp 16 Ht 152.4 cm (5') Wt 106.6 kg (235 lb) SpO2 97% BMI 45.90 kg/m?? Physical Exam: Affect: Appropriate Pain Behaviors: none Analgesics: Acetaminophen 650 mg Q6H scheduled Ketamine 3 mcg/kg/min Oxycontin 20 mg BID (home medication) Ketorolac 15 mg Q6H PRN (none taken) Oxycodone 10 mg Q3 PRN (six doses in 24 hours) Assessment: Ms. Cuadra is a 57 year old female with PMhx of chronic opioid dependence with a significant anxiety component to her discomfort now POD #1 following robotic assisted ventral hernia repair, currently with adequate pain control. Plan: Continue scheduled analgesics as above. Consider scheduling ketorolac in preparation for further ketamine wean. Recommend 3 lidoderm patches to achieve a clinically significant 1-1.5 mg/kg/hr plasma level of lidocaine. It does not matter where patches are placed on skin. Consider addition of gabapentin 300 mg TID to pt's regimen if willing, though pt is extremely specific about her medication regimen. Plan to wean ketamine gtt to 2 mcg/kg/min at 7AM. Consult service will continue to follow pt; please page with any questions/concerns. MARGARET ROYAL MD 07/13/2018 Acute Pain Service Pager: [phone] * Danielle Hunter PA - 07/13/2018 10:13 AM EST Minimally Invasive Surgery Inpatient Progress Note ID: Etelvina Cuadra is a 57 y.o. female s/p robotic laparoscopic repair of incarcerated ventral herniawith mesh. Now 1 Day Post-Op. 24hr events: ?? No acute events ?? One episode of nausea and vomiting ?? Ketamine dose decreased ?? Purewick used for urinary incontinence Subjective: She admits to feeling ok this am, but admits to having pain in her abdomen. She is alsoexpressing her nervousness about going home and having to climb 4 steps into her home. She has not yet been out of bed. She has not had any problems with voiding. She did eat some of her breakfast this am without any problems. She currently denies n/v/cp/sob. O: Last value Range last 24hrs Temperature Temp: 36.5 ??C (97.7 ??F) Temp: [36.4 ??C (97.5 ??F)-37.4 ??C (99.3 ??F)] Heart Rate Heart Rate: 80 Heart Rate: [58-80] Blood Pressure BP: 105/63 BP: (100-117)/(49-76) Respiratory Rate Resp: 19 Resp: [11-19] SpO2 SpO2: 94 % SpO2: [92 %-97 %] 07/12 0701 - 07/13 0700 In: 1468 [P.O.:168; I.V.:1300] Out: 1625 [Urine:1625] Physical Exam: General: NAD, resting comfortably, pleasant, conversant HEENT: PERRL, anicteric sclerae CVS: murmur noted; otherwise RRR Pulm: CTAB Abd: soft, appropriately tender, non-distended. 4 port sites with dermabond covering with ecchymosis noted surrounding port site on the left upper abdomen, otherwise not evidence of erythema or edema. No drainage or s/s of infection noted. : purewick used; no problems with voiding Skin: warm, dry Ext: no c/c/e Neuro: non-focal, moving all four extremities spontaneously Labs: No results for input(s): WBC, HGB, HCT, PLATELET, PT, INR, PTT in the last 72 hours. No results for input(s): NA, K, CL, CO2, BUN, CREATININE, GLUCOSE, CALCIUM, MAGNESIUM, PHOS in the last 72 hours. Microbiology: None New Studies: None ASSESSMENT: Etelvina Cuadra is a 57 y.o. female s/p robotic laparoscopic repair of incarcerated ventral hernia with mesh. Now 1 Day Post-Op Progressing post-operatively with pain management issues; appreciate APS assistance and guidance. PLAN: NEURO: Pain control with Ketamine along with home Oxycodone and Oxycontin; tylenol and toradol alsoavailable. Continue home Celexa. CV: No acute issues. PULM: Encourage frequent ambulation and IS use GI: Diet Regular diet : no problems with voiding (purewick currently being used) FEK: KVO for Ketamine; check lytes and replace prn ID: no indication of active infection HEME: no indication of active bleeding ENDO: continue home Synthroid PROPHYLAXIS: Lovenox for DVT DISPO: Floor status, Full Code PT c/s to assist with ambulation. Plan for discharge tomorrow based on progress. JENNY HOYOS 07/13/2018 Gio Mena MD - 07/12/2018 7:00 PM EST Patient seen and evaluated for report of double vision. Patient reports double vision and seeing hallucinations described as figures in front of her. They are mildly distressing to her. She is getting worsening pain around the sides of her abdomen and does not have oxycodone available to her. These symptoms are likely to ketamine infusion, will plan to wean to 3 mcg/kg/min and increase oxycodone from 10mg TID to 10mg q3h prn. If hallucinations do not get better, will consider weaning ketamine further and adding dose of ativan to help alleviate symptoms. Please page [phone] anesthesia pager for any questions. Staci Padilla RN - 07/12/2018 4:50 PM EST Patient arrived to [facility] via bed from PACU s/p laporoscopic hernia repair. Patient AOx 4, HRR, lung sounds clear, hypoactive bs, lbm 3/3 (per pt), voiding in purewick. +csmt to all extremities. Dressing clean dry and intact. Pain 4/10 at this time, ketamine drip and scheduled oxycontin controllingpain. Patient oriented to room, call reid to bedside, please see flowsheet for focused assessment. Will continue to monitor Staci Muniz RN * Ирина Trejo RN - 07/12/2018 9:50 AM EST Pt admitted from OR, monitors applied and alarms on, report received. 1055-Slow to awaken, but now following commands, MAEx4, denies pain. Ketamine drip infusing and patient reports the intrathecal catheter is on her right side and it is infusing morphine. Patient doesnot know the dose or the rate. Managed by pain clinic Dr. Becker. VSS, WCM 1pm- patient reports 6/10 on pain scale for abdominal pain. Pt requests oxycodone 10 mg. WCM 3pm patient instructed on the Incentive Spiromete 2000 goal. Pain is better, tolerating clear liquids, crackers and meal ordered. Waiting for bed to be ready. WCM documented in this encounter H&P Notes * Ry Crandall MD - 07/12/2018 7:19 AM EST HPI: Etelvina Cuadra presents to the hospital for the planned procedure of robotic hernia Denies changes inhealth. Denies any new symptoms which have developed since the previous encounter. ROS: No complaints of nausea vomiting fevers chills chest pain shortness of breath rash neurological side effect FH: No family h/o of bleeding or anesthesia problems Surgical Hx: Past Surgical History: Procedure Laterality Date ??? BACK SURGERY ??? IMPLANT OR REPLACE DEVICE FOR INTRATHECAL INFUSION, SUBQ RESERVOIR ??? ORTHOPEDIC SURGERY ??? PRO COLONOSCOPY, BIOPSY 10/07/2011 COLONOSCOPY FLEXIBLE, WITH BX performed by NIKKI MAYORGA at [facility] ENDOSCOPY ??? PRO COLONOSCOPY, DIAGNOSTIC 09/23/2011 COLONOSCOPY, DIAGNOSTIC performed by NIKKI MAYORGA at [facility]COPY ??? PRO LAP, CHOLECYSTECTOMY/GRAPH N/A 10/18/2016 LAPAROSCOPIC CHOLECYSTECTOMY WITH CHOLANGIOGRAM (WRVU 11.47) performed by Tasia Umaña MD at [facility] MA[facility] OR SH: Non smoker Objective: Most Recent Vitals: 07/12/18 0621 BP: 99/69 Pulse: 68 Resp: 18 Temp: 37.5 ??C (99.5 ??F) SpO2: 99% Last wbc, hgb, hct plt No results for input(s): WBC, HGB, HCT in the last 72 hours. Invalid input(s): PLT GEN: NAD HEENT: trachea midline, no scleral icterus PULM: normal respiratory effort CARD: appears warm and well perfused ABD: soft, non tender non distended SKIN: no rash, no diaphoresis MSK: no gross deformities NEURO: GCS 15 PSYCH: normal affect and mood A/p: Etelvina Cuadra 57 y.o. presents for robotic ventral hernia . Consent signed and questions answered. Ry Crandall MD documented in this encounter Miscellaneous Notes * Plan of Magalys - Radha Chilel PT - 07/15/2018 2:32 PM EST Physical Therapy Treatment Treatment Number PT: 2 Pertinent History of Current Problem: Ms. Cuadra is a 57 year old female with PMhx of chronic opioiddependence with a significant anxiety component to her discomfort now POD #2 following robotic assisted ventral hernia repair, currently with adequate pain control and good functional status. Precautions/Restrictions: fall Precautions Comments: abdominal Assessment: Pt seen for progression of functional mobility and ongoing assessment. Please see the flow sheet below for patient details and mobility. Pt demonstrated significantly improved tolerance to activity, and ability to participate in mobility with VSS throughout. Pt with slightly incr pain compared to prior session, however tolerable during ambulation/stair training. Pt able to perform multiple trials of stair negotiation, with use of AD and railing, without LOB or concern for safety. Ptcurrently safe for discharge home from mobility standpoint with assist from spouse and use of FWW. Staff Communication/Mobility Recommendations: Ambulate 3x/day w/ SBA and FWW OOB to chair for all meals or at least daily Anticipated Physical Therapy Frequency: (S) monitor(safe for DC home) Anticipated Equipment Needs at Discharge: (S) front wheeled walker Anticipated Discharge Disposition: (S) home with assist Has Patient Cleared Physical Therapy? YES NO xxx Radha Chilel, PT, DPT Pager: [phone] Inpatient Physical Therapy 07/15/18 1432 Rehab Evaluation Document Type therapy note (daily note) Total Evaluation Minutes, Physical Therapy 23 (x2 GT) Patient Effort excellent Symptoms Noted During/After Treatment fatigue General Information Patient Profile Review yes Patient/Family/Caregiver Comments/Observations I feel like I was in a tunnel yesterday General Observations of Patient pt up in recliner chair pre/post PT with all needs in reach Pertinent History of Current Problem Ms. Cuadra is a 57 year old female with PMhx of chronic opioid dependence with a significant anxiety component to her discomfort now POD #2 following robotic assisted ventral hernia repair, currently with adequate pain control and good functional status. Hearing Precautions/Limitations WFL Precautions/Restrictions fall Precautions Comments abdominal Treatment Number PT 2 Living Environment Patient population Adult Vital Signs O2 Device RA Cognitive Assessment/Intervention Additional Documentation Cognitive Assessment Interventions (Group) Cognitive Assessment Interventions Behavior/Mood Observations (Cognitive) WNL/WFL;behavior appropriate to situation;alert;cooperative Orientation Status (Cognitive) oriented x 4 Attention (Cognitive) WNL/WFL Pain Scale/Rating Pain Assessment Scale Numbers (Numeric Rating Pain Scale) Pain Level 7 Pain Assessment Numbers/Faces/Word Pain Body Location - Side Right Pain Body Location - Orientation lower Pain Body Location abdomen ROM (Range of Motion) Additional Documentation General Assessment (Group) General Range of Motion no range of motion deficits identified General Range of Motion Detail WFLS MMT (Manual Muscle Testing) Additional Documentation General Assessment (Group) General Manual Muscle Testing Assessment Detail WFLs General Assessment General Manual Muscle Testing Assessment no strength deficits identified Mobility Assessment/Training Additional Documentation Gait Assessment/Treatment (Group);Stairs Assessment/Treatment (Group);Transfer Assessment/Treatment (Group) Bed Mobility Assessment/Treatment Comment (Bed Mobility) pt up in chair upon arrival Transfer Assessment/Treatment [place] (Sit-Stand Transfers) supervision required [place] (Stand-Sit Transfers) supervision required Smt-Waikm-Cjk Assistive Device (Transfers) rolling walker [place] (Toilet Transfers) supervision required Assistive Device (Toilet Transfers) rolling walker Safety Issues (Transfers) step length decreased Impairments (Transfers) balance impaired;pain;strength decreased Comment (Transfers) no overt LOB, good hand placement Gait Assessment/Treatment [place] (Gait) supervision required Assistive Device (Gait) rolling walker Distance in Feet (Gait) 100' Gait Pattern Analysis swing-through gait Deviations (Gait) ulisses decreased;step length decreased;stride length decreased Safety Issues (Gait) step length decreased Impairments (Gait) balance impaired;pain;strength decreased (endurance) Comment (Gait) no overt LOB, steady with FWW, no reported dizziness Stairs Assessment/Treatment Number of Stairs (Stairs) 3x2 Handrail Location (Stairs) left side (ascending) [place] (Stairs) supervision required Assistive Device (Stairs) straight cane Technique (Stairs) [id number] (ascending);[id number]-ks-[id number] (descending) Impairments (Stairs) balance impaired;pain;strength decreased (endurance) Comment (Stairs) intitially step-to pattern with LLE leading on descend, improved pain with RLE leading on descend. No overt LOB. incr pain on descend compared to ascend Motor Skills/Interventions Additional Documentation Balance Skills Training (Group) Balance Skills Training Training Strategies (Balance) FWW, supervision Sitting Balance: Static good balance Sitting Balance: Dynamic good balance [id number]-[id number] Balance good balance Standing Balance: Static good balance Standing Balance: Dynamic fair balance Plan of Care Review Plan Of Care Reviewed With patient Progress improving Bed Mobility Goal Bed Mobility Goal, Date Established 07/14/18 Bed Mobility Goal, Time to Achieve by discharge Bed Mobility Goal, Activity Type all bed mobility activities Bed Mobility Goal, [place] Level conditional independence Bed Mobility Goal, Date Goal Reviewed 07/15/18 Bed Mobility Goal, Outcome Achieved goal met Gait Training Goal Gait Training Goal, Date Established 07/14/18 Gait Training Goal, Time to Achieve by discharge Gait Training Goal, [place] Level conditional independence Gait Training Goal, Assist Device walker, rolling Gait Training Goal, Distance to Achieve 100' Gait Training Goal, Additional Goal 3 stairs with x1 rail, LRAD, CGA Gait Training Goal, Date Goal Reviewed 07/15/18 Gait Training Goal, Outcome goal met (has supervision from spouse) Transfer Training Goal Transfer Training Goal, Date Established 07/14/18 Transfer Training Goal, Time to Achieve by discharge Transfer Training Goal, Activity Type mau-dm-kkcth/efnxw-uf-has;ajy-fu-naxwo/ufjda-ke-wrj Transfer Train Goal, [place] Level conditional independence Transfer Training Goal, Assist Device walker, rolling Transfer Train Goal, Date Goal Reviewed 07/15/18 Transfer Training Goal, Outcome goal met (has supervision from spouse) Physical Therapy Goal PT Goal, Date Established 07/14/18 PT Goal, Time to Achieve by discharge PT Goal, Activity Type maintain stable VS throughout activity w/ no incr s/sxs PT Goal, [place] Level supervision required PT Goal, Date Goal Reviewed 07/15/18 PT Goal, Outcome goal met Clinical Impression Therapy Frequency monitor (safe for DC home) Anticipated Equipment Needs at Discharge front wheeled walker Anticipated Discharge Disposition home with assist * Plan of Care - Ronald Aguirre RN - 07/15/2018 2:45 AM EST OUTCOME EVALUATION NOTE: ?? OUTCOME SUMMARY: ?? Patient alert and oriented throughout shift. Vital signs stable. Ketamine infusing, bag changed. Pain moderately controlled but patient requesting PRN pain meds. Patient able to ambulate to bathroom,voiding adequately. Lap sites intact with no drainage. Call reid within reach, patient ringing appropriately. Will continue to monitor.? PLAN MOVING FORWARD: ?? Mobilization, pain control, discharge ?? INDIVIDUALIZED FALL PREVENTION INTERVENTIONS: ?? Patient-specific fall risk factors per assessment:??Ketamine, tubing, recent surgery ?? Assistance: 2 assist, FWW ?? Supervision: Hands on ?? Surveillance: Bed locked in low position, call reid within reach, purposeful hourly rounding, clutter free environment, bed/chair alarm on ?? Patient-specific fall prevention interventions for sensory deficits provided: Yes ?? CPG GOAL OUTCOME EVALUATION:? Continue care plan as documented. * Plan of Care - Moody Ko RN - 07/14/2018 5:49 PM EST Problem: Patient Care Overview Goal: Plan of Care Review Outcome: Ongoing (Interventions Implemented as Appropriate) 07/14/18 1607 Coping/Psychosocial Plan Of Care Reviewed With patient Plan of Care Review Progress progress toward functional goals as expected OUTCOME EVALUATION NOTE: OUTCOME SUMMARY: Pt A&O, VS stable; pain controlled with PRN/scheduled meds, Ketamine drip @12.8mL/hr, see MAR. Pt up with PT to walk unit; pt became faint, pale. Pt sat down in chair, wheeled back to room; faintness resolved, BP WDL. Lap sites x5 to abdomen C/D/I. Up to BR stand by assist/FWW to void spontaneously clear, yellow urine; LBM 11 Jul 2018. Plan to discharge 15 Jul 2018. Pt resting in bed between care. Will continue to monitor. PLAN MOVING FORWARD: Continue to monitor pain Encourage ambulation, self care Discharge planning INDIVIDUALIZED FALL PREVENTION INTERVENTIONS: Patient-specific fall risk factors per assessment: [current deficits]: Narcotic medications/Ketamine drip, surgery, hospital environment Assistance [level of assistance required for transfers and ambulation]: Stand by/FWW Supervision [direct monitoring required during toileting and ADLs]: 1 assist/stand by Surveillance [continuous indirect monitoring]: Gadiel purposeful rounding Patient-specific fall prevention interventions for sensory deficits provided, if applicable: CPG GOAL OUTCOME EVALUATION: Goal: Fall Prevention-Safe Patient Handling Outcome: Ongoing (Interventions Implemented as Appropriate) 07/14/1891407/14/18 1131 Restraint Interventions Safety Promotion/Fall Prevention activity supervised;fall prevention program maintained;nonskid shoes/slippers when out of bed;safety round/check completed -- Anaya Fall Risk History of Falling 0 -- Secondary Diagnosis 15 -- Ambulatory Aids 15 -- Intravenous Therapy/Heparin/Saline Lock 20 -- Gait/Transferring 10 -- Mental Status 0 -- Score 60 -- OTHER Anaya Fall Risk High -- Positioning Body Position supine, head elevated -- Activity Activity Type -- activity adjusted per tolerance;activity encouraged;ambulated to bathroom Activity Assistance Provided -- assistance, stand-by Assistive Device Utilized -- front-wheel walker Goal: Infection Control Outcome: Ongoing (Interventions Implemented as Appropriate) 07/14/18 0915 Safety Interventions Isolation Precautions standard precautions maintained Infection Prevention personal protective equipment utilized;rest/sleep promoted;single patient roomprovided Coping Strategies Supportive Measures active listening utilized;decision-making supported;goal setting facilitated;self-care encouraged Goal: Discharge Needs Assessment Outcome: Ongoing (Interventions Implemented as Appropriate) 07/13/18 153 Discharge Needs Assessment Concerns To Be Addressed no discharge needs identified Discharge Disposition still a patient Living Environment Transportation Available family or friend will provide Goal: Interdisciplinary Rounds/Family Conf Outcome: Ongoing (Interventions Implemented as Appropriate) 07/13/18 1532 Interdisciplinary Rounds/Family Conf Participants hospice case manager;nursing;physician;physical therapy;patient Problem: Pain, Acute (Adult) Goal: Identify Related Risk Factors and Signs and Symptoms Related risk factors and signs and symptoms are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 serum separator tube (gold top) for subsequent determinations. ??Contact the Clinical Chemistry Laboratory if there are any questions. Chloride 104 98 - 107 mmol/L [facility] Carbon Dioxide 27 22 - 31 mmol/L [facility] Anion Gap 8 5 - 15 mmol/L [facility] Calcium 9.0 8.5 - 10.5 mg/dL [facility] Est Glomerular Filtration Rate 76 >=60 mL/min/1. 73 m?? [facility] Comment: The eGFR was calculated using the CKD-EPI equation. As with all creatinine based estimates of kidney function, eGFR values calculated with the CKD-EPI equation are not accurate in patients with acute kidney failure, extremes of body mass or the acutely ill. [email or web address] eGFR 88 >=60 mL/min/1. 73 m?? [facility] Comment: The eGFR was calculated using the CKD-EPI equation. As with all creatinine based estimates of kidney function, eGFR values calculated with the CKD-EPI equation are not accurate in patients with acute kidney failure, extremes of body mass or the acutely ill. [email or web address] Blood specimen (specimen) 07/13/2018 12:56 PM EST 07/13/2018 1:05 PM EST Narrative Resulting Agency Comment Spec In Lab Izzy Blanco MD CHEMISTRY ORDERABLE S [facility] [place] [address] * SCAN DOC: IMPLANTABLE DEVICES (06/14/2018 12:00 AM EST) Narrative 06/14/2018 12:00 AM EST Ordered by an unspecified provider. Scanning Provider MEDIA MGR SCAN EXT O RDR/RSLT documented in this encounter Visit Diagnoses Diagnosis S/P repair of ventral hernia Other postprocedural status Ventral hernia Ventral hernia, unspecified, without mention of obstruction or gangrene S/P repair of ventral hernia Other postprocedural status Saphenous neuralgia, right documented in this encounter Admitting Diagnoses Diagnosis Ventral hernia Ventral hernia, unspecified, without mention of obstruction or gangrene S/P repair of ventral hernia Other postprocedural status documented in this encounter Administered Medications Inactive Administered Medications - up to 3 most recent administrations Medication Order MAR Action Action Date Dose Rate Site acetaminophen (TYLENOL) tablet 1,000 mg 1,000 mg, Oral, ONCE, 1 dose, On Thu07/12/18 at 0645, Administer with SIP of H2O only., Day of Surgery (Day of Procedure), Routine Given 07/12/2018 7:10 AM EST 1,000 mg acetaminophen (TYLENOL) tablet 650 mg 650 mg, Oral, EVERY 6 HOURS SCHEDULED, First dose on Thu07/13/18 at 0630, Until Discontinued, Maximum dose of acetaminophen is 4000 mg from all sources in 24 hours., Routine Given 07/15/2018 12:31 PM EST 650 mg Given 07/15/2018 5:15 AM EST 650 mg Given 07/14/2018 11:18 PM EST 650 mg citalopram (CeleXA) tablet 20 mg 20 mg, Oral, DAILY, First dose on Thu07/12/18 at 1700, Until Discontinued, Recovery (Recovery-Hospital Unit), Routine Given 07/15/2018 8:44 AM EST 20 mg Given 07/14/2018 9:15 AM EST 20 mg Given 07/13/2018 9:12 AM EST 20 mg enoxaparin (LOVENOX) injection 40 mg 40 mg, Subcutaneous, NIGHTLY, First dose on Thu07/13/18 at 2100, Until Discontinued, Recovery (Recovery-Hospital Unit), Routine Given 07/14/2018 7:29 PM EST 4 0 mg Given 07/13/2018 7:16 PM EST 40 mg gabapentin (NEURONTIN) capsule 600 mg 600 mg, Oral, ONCE, 1 dose, On Thu07/12/18 at 0645, Administer with SIP of H2O only., Day of Surgery (Day of Procedure), Routine Given 07/12/2018 7:11 AM EST 600 mg ketamine (KETALAR) 500 mg in sodium chloride 0.9% 500 mL infusion 3 mcg/kg/min ? 106.6 kg (19.188 mL/hr, rounded to 19.2 mL/hr), Intravenous, CONTINUOUS, Starting on Thu07/12/18 at 0930, Until Thu07/14/18 at 0116 New Bag 07/13/2018 2:33 AM EST 3 mcg/kg/min 19.2 mL/hr Rate/Dose Change 07/12/2018 6:26 PM EST 3 mcg/kg/min 19.2 mL/hr New Bag 07/12/2018 10:22 AM EST 4.972 mcg/kg/min 31.8 m L/hr ketamine (KETALAR) 500 mg in sodium chloride 0.9% 500 mL infusion 2 mcg/kg/min ? 106.6 kg (12.792 mL/hr, rounded to 12.8 mL/hr), Intravenous, CONTINUOUS, Starting on Thu07/14/18 at 0145, Until Thu07/15/18 at 0949 New Bag 07/15/2018 3:21 AM EST 2 mcg/kg/min 12.8 mL/hr Rate/Dose Change 07/14/2018 9:00 AM EST 2 mcg/kg/min 12.8 mL/hr New Bag 07/14/2018 2:32 AM EST 3 mcg/kg/min 19.2 mL/hr ketorolac (TORADOL) injection 15 mg 15 mg, Intravenous, EVERY 6 HOURS SCHEDULED, 8 doses, First dose (after last modification) on Thu07/14/18 at 0615, Last dose on Thu07/16/18 at 0000, Avoid if CrCl less than 50 ml/min. Do not administer with other NSAIDS For pain not relieved by oral analgesics or in patients unable to take oral analgesics, Recovery (Recovery-Hospital Unit), Routine Given 07/15/2018 12:32 PM EST 15 mg Given 07/15/2018 5:16 AM EST 15 mg Given 07/14/2018 11:18 PM EST 15 mg ketorolac (TORADOL) injection 15 mg 15 mg, Intramuscular, EVERY 6 HOURS SCHEDULED, 8 doses, First dose (after last modification) on Thu07/14/18 at 0615, Last dose on Thu07/16/18 at 0000, Avoid if CrCl less than 50 ml/min. Do not administer with other NSAIDS. For pain not relieved by oral analgesics or in patients unable to take oral analgesics, Recovery (Recovery-Hospital Unit), Routine Given 07/14/2018 6:24 AM EST 15 mg lactated Ringers infusion 1,000 mL 1,000 mL, at 100 mL/hr, Intravenous, CONTINUOUS, Starting on Thu07/12/18 at 0645, Until Thu07/12/18 at 1610, Day of Surgery (Day of Procedure) New Bag 07/12/2018 7:07 AM EST 1,000 mLs 100 mL/hr lactated Ringers infusion 1,000 mL 1,000 mL, at 100 mL/hr, Intravenous, CONTINUOUS, Starting on Thu07/12/18 at 1045, Until Thu07/13/18 at 0909, Recovery (Recovery-Hospital Unit) New Bag 07/12/2018 8:53 PM EST 1,000 mLs 100 mL/hr New Bag 07/12/2018 10:36 AM EST 1,000 mLs 100 mL/hr lactated Ringers infusion 10 mL/hr, Intravenous, CONTINUOUS, Starting on Thu07/13/18 at 0930, Until Gerda 07/15/18 at 0949, Recovery (Recovery-Hospital Unit) New Bag 07/13/2018 9:13 AM EST 10 mL/hr 10 mL/ hr levothyroxine (SYNTHROID) tablet 100 mcg 100 mcg, Oral, EVERY MORNING, First dose on Thu07/13/18 at 0600, Until Discontinued, Recovery (Recovery-Hospital Unit), Routine Given 07/15/2018 5:16 AM EST 100 mcg Given 07/14/2018 5:06 AM EST 100 mcg Given 07/13/2018 5:07 AM EST 100 mcg lidocaine (LIDODERM) 5 % patch 3 patch 3 patch, Transdermal, EVERY 24 HOURS, First dose on Thu07/14/18 at 0615, Until Discontinued, Apply patch(es) for 12 hours, and then remove for 12 hours, Routine Patch Applied 07/15/2018 5:16 AM EST 3 patches 14- Abdomen (Right) Patch Applied 07/14/2018 6:21 AM EST 3 patches 14- Abdomen (Right) lidocaine (LIDODERM) patch REMOVAL Transdermal, EVERY 24 HOURS, First dose on Thu07/14/18 at 1800, Until Discontinued, Remove lidocaine 5 %(700 mg/patch) patch oxyCODONE (OxyCONTIN) CR tablet 20 mg 20 mg, Oral, EVERY 12 HOURS SCHEDULED (2 times per day), First dose (after last modification) on Thu07/12/18 at 1630, Until Discontinued, DO NOT CRUSH OR OPEN, Recovery (Recovery-Hospital Unit), Routine Given 07/15/2018 3:35 AM EST 20 mg Given 07/14/2018 4:06 PM EST 20 mg Given 07/14/2018 3:43 AM EST 20 mg oxyCODONE (ROXICODONE) immediate release tablet 10 mg 10 mg, Oral, 3 TIMES DAILY PRN, Starting on Thu07/12/18 at 1008, Until Thu07/12/18 at 1827, pain, Recovery (Recovery-Hospital Unit), Routine Given 07/12/2018 1:08 PM EST 10 mg oxyCODONE (ROXICODONE) immediate release tablet 10 mg 10 mg, Oral, EVERY 3 HOURS PRN, Starting on Thu07/12/18 at 1830, Until Thu07/15/18 at 1742, pain, Recovery (Recovery-Hospital Unit), Routine Given 07/15/2018 12:31 PM EST 10 mg Given 07/15/2018 8:44 AM EST 10 mg Given 07/15/2018 5:16 AM EST 10 mg polyethylene glycol (MIRALAX) packet 17 g 17 g, Oral, DAILY, First dose on Thu07/13/18 at 0900, Until Discontinued, Routine Given 07/15/2018 8:44 AM EST 17 g Given 07/14/2018 9:15 AM EST 17 g Given 07/13/2018 9:12 AM EST 17 g psyllium (Aspartame) 1 packet 1 packet, Oral, DAILY, First dose on Thu07/15/18 at 0900, Until Discontinued, Routine Given 07/15/2018 8:44 AM EST 1 packet sodium chloride 0.9 % flush 5 mL 5 mL, Intravenous, 2 TIMES DAILY, First dose on Thu07/12/18 at 2100, Until Discontinued, Recovery (Recovery-Hospital Unit), Routine Given 07/15/2018 8:45 AM EST 5 mLs Given 07/14/2018 7:33 PM EST 5 mLs Given 07/14/2018 9:16 AM EST 5 mLs documented in this encounter Active and Recently Administered Medications Times are shown in EST. Scheduled Medication Order 07/13/2018 07/14/2018 07/15/2018 acetaminophen (TYLENOL) tablet 650 mg 650 mg, Oral, EVERY 6 HOURS SCHEDULED, First dose on Thu07/13/18 at 0630, Until Discontinued, Maximum dose of acetaminophen is 4000 mg from all sources in 24 hours., Routine 0609 (Given - Provider: Ronald Aguirre RN)1152 (Given - Provider: Chana Boykin RN)1751 (Given - Provider: Chana Boykin RN)2306 (Given - Provider: Ronald Aguirre RN) 0506 (Given - Provider: Ronald Aguirre RN)1205 (Given - Provider: Moody Ko, OSNNY)1718 (Given - Provider: Moody Ko RN)2318 (Given - Provider: Ronald Aguirre RN) 0515 (Given - Provider: Ronald Aguirre RN)1231 (Given - Provider: Moody Ko, RN) citalopram (CeleXA) tablet 20 mg 20 mg, Oral, DAILY, First dose on Thu07/12/18 at 1700, Until Discontinued, Recovery (Recovery-Hospital Unit), Routine 0912 (Given - Provider: Chana Boykin RN) 0915 (Given - Provider: Moody Ko RN) 0844 (Given - Provider: Moody Ko RN) enoxaparin (LOVENOX) injection 40 mg 40 mg, Subcutaneous, NIGHTLY, First dose on Thu07/13/18 at 2100, Until Discontinued, Recovery (Recovery-Hospital Unit), Routine 191 (Given - Provider: Ronald Aguirre RN) 1929 (Given - Provider: Ronald Aguirre RN) ketorolac (TORADOL) injection 15 mg(Linked Group 1) 15 mg, Intravenous, EVERY 6 HOURS SCHEDULED, 8 doses, First dose (after last modification) on Thu07/14/18 at 0615, Last dose on Thu07/16/18 at 0000, Avoid if CrCl less than 50 ml/min. Do not administer with other NSAIDS For pain not relieved by oral analgesics or in patients unable to take oral analgesics, Recovery (Recovery-Hospital Unit), Routine 0624 (See Alternative - Provider: Ronald Aguirre RN)1204 (Given - Provider: Moody Ko RN)1718 (Given - Provider: Moody Ko RN)2318 (Given - Provider: Ronald Aguirre RN) 0516 (Given - Provider: Ronald Aguirre RN)1232 (Given - Provider: Moody Ko, RN) ketorolac (TORADOL) injection 15 mg(Linked Group 1) 15 mg, Intramuscular, EVERY 6 HOURS SCHEDULED, 8 doses, First dose (after last modification) on Thu07/14/18 at 0615, Last dose on Thu07/16/18 at 0000, Avoid if CrCl less than 50 ml/min. Do not administer with other NSAIDS. For pain not relieved by oral analgesics or in patients unable to take oral analgesics, Recovery (Recovery-Hospital Unit), Routine 0624 (Given - Provider: Ronald Aguirre RN)1204 (See Alternative - Provider: Moody Ko RN)1718 (See Alternative - Provider: Moody Ko RN)2318 (See Alternative - Provider: Ronald Aguirre RN) 0516 (See Alternative - Provider: Ronald Aguirre RN)1232 (See Alternative - Provider: Moody Ko, RN) levothyroxine (SYNTHROID) tablet 100 mcg 100 mcg, Oral, EVERY MORNING, First dose on Thu07/13/18 at 0600, Until Discontinued, Recovery (Recovery-Hospital Unit), Routine 0507 (Given - Provider: Ronald Aguirre RN) 0506 (Given - Provider: Ronald Aguirre RN) 0516 (Given - Provider: Ronald Aguirre RN) lidocaine (LIDODERM) 5 % patch 3 patch(Linked Group 2) 3 patch, Transdermal, EVERY 24 HOURS, First dose on Thu07/14/18 at 0615, Until Discontinued, Apply patch(es) for 12 hours, and then remove for 12 hours, Routine 0621 (Patch Applied - Provider: Ronald Aguirre RN) 0516 (Patch Applied - Provider: Ronald Aguirre RN) lidocaine (LIDODERM) patch REMOVAL(Linked Group 2) Transdermal, EVERY 24 HOURS, First dose on Thu07/14/18 at 1800, Until Discontinued, Remove lidocaine 5 %(700 mg/patch) patch 1800 (Patch Removed - Provider: Moody Ko, SONNY) oxyCODONE (OxyCONTIN) CR tablet 20 mg 20 mg, Oral, EVERY 12 HOURS SCHEDULED (2 times per day), First dose (after last modification) on Thu07/12/18 at 1630, Until Discontinued, DO NOT CRUSH OR OPEN, Recovery (Recovery-Hospital Unit), Routine 0435 (Given - Provider: Ronald Aguirre RN)1631 (Given - Provider: Chana Boykin RN) 0343 (Given - Provider: Ronald Aguirre RN)1606 (Given - Provider: Moody Ko, RN) 0335 (Given - Provider: Ronald Aguirre, RN) polyethylene glycol (MIRALAX) packet 17 g 17 g, Oral, DAILY, First dose on Thu07/13/18 at 0900, Until Discontinued, Routine 0912 (Given - Provider: Chana Boykin RN) 0915 (Given - Provider: Moody Ko, RN) 0844 (Given - Provider: Moody Ko, RN) psyllium (Aspartame) 1 packet 1 packet, Oral, DAILY, First dose on Thu07/15/18 at 0900, Until Discontinued, Routine 0844 (Given - Provider: Moody Ko, RN) sodium chloride 0.9 % flush 5 mL 5 mL, Intravenous, 2 TIMES DAILY, First dose on Thu07/12/18 at 2100, Until Discontinued, Recovery (Recovery-Hospital Unit), Routine 0913 (Given - Provider: Chana Boykin RN)1916 (Given - Provider: Ronald Aguirre RN) 0916 (Given - Provider: Moody Ko, SONNY)1933 (Given - Provider: Ronald Aguirre, SONNY) 0845 (Given - Provider: Moody Ko, RN) Continuous Medication Order 07/13/2018 07/14/2018 07/15/2018 ketamine (KETALAR) 500 mg in sodium chloride 0.9% 500 mL infusion (CANCELED)(Linked Group 3) 3 mcg/kg/min ? 106.6 kg (19.188 mL/hr, rounded to 19.2 mL/hr), Intravenous, CONTINUOUS, Starting on Thu07/12/18 at 0930, Until Thu07/14/18 at 0116 0233 (New Bag - Provider: Ronald Aguirre RN) ketamine (KETALAR) 500 mg in sodium chloride 0.9% 500 mL infusion (CANCELED)(Linked Group 4) 2 mcg/kg/min ? 106.6 kg (12.792 mL/hr, rounded to 12.8 mL/hr), Intravenous, CONTINUOUS, Starting on Thu07/14/18 at 0145, Until Gerda 07/15/18 at 0949 0232 (New Bag - Provider: Ronald Aguirre RN)0900 (Rate/Dose Change - Provider: Moody Ko, RN) 0321 (New Bag - Provider: Ronald Aguirre, SONNY) lactated Ringers infusion (CANCELED) 10 mL/hr, Intravenous, CONTINUOUS, Starting on Thu07/13/18 at 0930, Until Gerda 07/15/18 at 0949, Recovery (Recovery-Hospital Unit) 0913 (New Bag - Provider: Chana Boykin RN) PRN Medication Order 07/13/2018 07/14/2018 07/15/2018 lidocaine (XYLOCAINE) 10 mg/mL (1 %) injection 3 mg 3 mg (0.3 mL), Subcutaneous, ONCE PRN, 1 dose, Starting on Thu07/12/18 at 1619, Until Gerda 07/15/18 at 1742, for discomfort with PIV insertion, Recovery (Recovery-Hospital Unit), Routine oxyCODONE (ROXICODONE) immediate release tablet 10 mg 10 mg, Oral, EVERY 3 HOURS PRN, Starting on Thu07/12/18 at 1830, Until Gerda 07/15/18 at 1742, pain, Recovery (Recovery-Hospital Unit), Routine 0131 (Given - Provider: Ronald Aguirre RN)0435 (Given - Provider: Ronald Aguirre RN)0912 (Given - Provider: Chana Boykin RN)1231 (Given - Provider: Chana Boykin RN)1538 (Given - Provider: Chana Boykin RN)1915 (Given - Provider: Ronald Aguirre RN)2229 (Given - Provider: Ronald Aguirre RN) 0218 (Given - Provider: Ronald Aguirre RN)0545 (Given - Provider: Ronald Aguirre RN)0915 (Given - Provider: Moody Ko RN)1205 (Given - Provider: Moody Ko RN)1754 (Given - Provider: Moody Ko RN)2121 (Given - Provider: Ronald Aguirre RN) 0141 (Given - Provider: Ronald Aguirre RN)0516 (Given - Provider: Ronald Aguirre RN)0844 (Given - Provider: Moody Ko RN)1231 (Given - Provider: Moody Ko RN) sodium chloride 0.9 % flush 5-20 mL 5-20 mL, Intravenous, EVERY 1 MIN PRN, Starting on 07/12/18 at 1619, Until Gerda 07/15/18 at 1742, flush, Flush pertains to all indwelling lines. Flush per protocol found in the job aid using the link provided on this medication record., Recovery (Recovery-Hospital Unit), Routine Linked Groups Order Group 1: ketorolac (TORADOL) injection 15 mgJump to med 15 mg, Intravenous, EVERY 6 HOURS SCHEDULED, 8 doses, First dose (after last modification) on Thu07/14/18 at 0615, Last dose on Thu07/16/18 at 0000, Avoid if CrCl less than 50 ml/min. Do not administer with other NSAIDS For pain not relieved by oral analgesics or in patients unable to take oral analgesics, Recovery (Recovery-Hospital Unit), Routine Or ketorolac (TORADOL) injection 15 mgJump to med 15 mg, Intramuscular, EVERY 6 HOURS SCHEDULED, 8 doses, First dose (after last modification) on Thu07/14/18 at 0615, Last dose on Thu07/16/18 at 0000, Avoid if CrCl less than 50 ml/min. Do not administer with other NSAIDS. For pain not relieved by oral analgesics or in patients unable to take oral analgesics, Recovery (Recovery-Hospital Unit), Routine Group 2: lidocaine (LIDODERM) 5 % patch 3 patchJump to med 3 patch, Transdermal, EVERY 24 HOURS, First dose on Thu07/14/18 at 0615, Until Discontinued, Apply patch(es) for 12 hours, and then remove for 12 hours, Routine And lidocaine (LIDODERM) patch REMOVALJump to med Transdermal, EVERY 24 HOURS, First dose on Thu07/14/18 at 1800, Until Discontinued, Remove lidocaine 5 %(700 mg/patch) patch Group 3: ketamine (KETALAR) 500 mg in sodium chloride 0.9% 500 mL infusion (CANCELED)Jump to med 3 mcg/kg/min ? 106.6 kg (19.188 mL/hr, rounded to 19.2 mL/hr), Intravenous, CONTINUOUS, Starting on Thu07/12/18 at 0930, Until Thu07/14/18 at 0116 And ketamine shift total and Settings verification (CANCELED) Intravenous, 2 Times Daily - Shift Total, First dose on Thu07/12/18 at 1800, Until Discontinued Group 4: ketamine (KETALAR) 500 mg in sodium chloride 0.9% 500 mL infusion (CANCELED)Jump to med 2 mcg/kg/min ? 106.6 kg (12.792 mL/hr, rounded to 12.8 mL/hr), Intravenous, CONTINUOUS, Starting on Thu07/14/18 at 0145, Until Gerda 07/15/18 at 0949 And ketamine shift total and Settings verification (CANCELED) Intravenous, 2 Times Daily - Shift Total, First dose (after last reorder) on Thu07/14/18 at 0600, Until Discontinued documented in this encounter Care Teams Compensation Agent Relationship Specialty Start Date End Date Bob Day MD [address] [place] [address] PCP - General Family Medicine 01/18/18 07/26/20 documented as of this encounter
--- OUTSIDE RECORDS SUMMARY | 2024-04-05 16:31 | XMS_ITS | Encounter Summary ---
Author Organization [facility] Address [facility] [place] [address] Care Team Providers Care Senior Software Quality Engineer Name Role Phone Bob Day MD Primary Care Provider [phone] Encounter Details Date Type Department Care Team (Late st Contact Info) Description 02/16/2019 [facility] Conversion Results [address] [place] [phone] [facility] Conversion, Flowsheet Provider, Social History Tobacco Use [...] Sign Reading Time Taken Comments Blood Pressure 144/69 02/16/2019 12:00 AM EDT Sourced from [facility] Conversion Pulse - - Temperature - - Respiratory Rate - - Oxygen Saturation - - Inhaled Oxygen Concentration - - Weight 106.3 kg (234 lb 6.3 oz) 02/16/2019 12:00 AM EDT Sourced from [facility] Conversion Height 152 cm (4' 11.84) 02/16/2019 12 :00 AM EDT Sourced from [facility] Conversion Body Mass Index 46.02 02/16/2019 12:00 AM EDT documented in this encounter Plan of Treatment Upcoming Encounters Date Type Department Care Team (Latest Contact Info) Description 04/06/2024 11:30 AM [facility] Hospital Encounter [facility] [place] [address] Cadence Eric MD [facility] [place] [address] 04/06/2024 11:30 AM EST - 04/06/2024 12:50 PM EST Surgery [facility] [place] [phone] Cadence Eric MD [facility] [place] [address] IMPLANT NEUROSTIMULATOR ELECTRODES, PERIPHERAL NERVE (WRVU 5.76) 04/14/2024 2:30 PM EST Office Visit [facility] [place] [address] Cadence Eric MD [facility] [place] [address] Scheduled Procedures Name Priority Associated Diagnoses Date/Ti [...] filedocumented in this encounter Care Teams Senior Software Quality Engineer Relationship Specialty Start Date End Date Bob Day MD [address] [place] [address] PCP - General Family Medicine 01/18/18 07/26/20 documented as of this encounter
--- OUTSIDE RECORDS SUMMARY | 2024-04-05 16:31 | XMS_ITS | Encounter Summary ---
Author Organization [facility] Address [facility] [place] [address] Care Team Providers Care Senior Marketing Data Analyst Name Role Phone Bob Day MD Primary Care Provider [phone] Encounter Details Date Type Department Care Team (Late st Contact Info) Description 07/25/[address] [place] [phone] Gene Fernandez MD [facility] [place] [address] Social History Tobacco Use Types Packs/Day Years [...] encounter Miscellaneous Notes * Telephone Encounter - Gene Fernandez MD - 07/25/2018 11:17 AM EDT Ms Cuadra is a 57F who is s/p robotic laparoscopic repair of incarcerated ventral hernia with mesh on 07/12/18. Patient states that over the 2-3 days she has noticed worsening pain from her lowest post site incision. The site is described at red, swollen, with some new drainage (clear/yellow per description). She denies any fevers/chills, pain anywhere else, and is still able to take PO. She asked me for a perscription for antibiotics. I told her that given her description of the wound and the fact that she is now 2 weeks out from surgery, I felt that I or someone else should assess the wound prior to prescribing antibiotics. I told her that if she came to [facility] I would be more than happy to assess her in the ED. She stated that this would be a [address] for her and that she would rather go to [facility] for a local urgent care. I told her that if she changes her mind I would be more than happyto reconsider and asked her to call back if she develops worsening pain/drainage, fevers/chills, etc Gene Fernandez MD General Surgery documented in this encounter Plan of Treatment Upcoming Encounters Date Type Department Care Team (Latest Contact Info) Description 04/06/2024 11:30 AM EST Hospital Encounter Outpatient [place] [address] Cadence Eric MD [facility] [place] [address] 04/06/2024 11:30 AM EST - 04/06/2024 12:50 PM EST Surgery Outpatient [place] [address] Cadence Eric MD [facility] [place] [address] IMPLANT NEUROSTIMULATOR ELECTRODES, PERIPHERAL NERVE (WRVU 5.76) 04/14/2024 2:30 PM EST Office Visit [facility] [place] [address] Cadence Eric MD [facility] [place] [address] Scheduled Procedures Name Priority Associated Diagnoses Date/Ti [...] filedocumented in this encounter Care Teams Senior Marketing Data Analyst Relationship Specialty Start Date End Date Bob Day MD [address] [place] [address] PCP - General Family Medicine 01/18/18 07/26/20 documented as of this encounter
--- OUTSIDE RECORDS SUMMARY | 2024-04-05 16:31 | XMS_ITS | Encounter Summary ---
Author Organization [facility] Address [facility] [place] [address] Care Team Providers Care Senior Construction Manager Name Role Phone Bob Day MD Primary Care Provider [phone] Encounter Details Date Type Department Care Team (Late st Contact Info) Description 02/10/2019 External Results [facility] [place] [phone] Karl Becker MD [facility] [place] [address] Social History Tobacco Use Types Packs/Day Years [...] AM EST Hospital Encounter Outpatient [place] [phone] Cadence Eric MD [facility] [place] [address] 04/06/2024 11:30 AM EST - 04/06/2024 12:50 PM EST Surgery Outpatient [place] [address] Cadence Eric MD [facility] [place] [address] IMPLANT NEUROSTIMULATOR ELECTRODES, PERIPHERAL NERVE (WRVU 5.76) 04/14/2024 2:30 PM EST Office Visit [place] [phone] Cadence Eric MD [facility] [place] [address] Scheduled Procedures Name Priority Associated Diagnoses Date/Ti [...] Associated Diagnosis Comments INTRATHECAL PUMP REFILL Routine 02/09/2019 documented in this encounter Results * INTRATHECAL PUMP REFILL (02/09/2019) Karl Becker MD PROCEDURE/MINOR SURG ICAL ORDERABLES documented in this encounter Visit Diagnoses Not on filedocumented in this encounter Care Teams Senior Construction Manager Relationship Specialty Start Date End Date Bob Day MD [address] [place] [address] PCP - General Family Medicine 01/18/18 07/26/20 documented as of this encounter
--- OUTSIDE RECORDS SUMMARY | 2024-04-05 16:31 | XMS_ITS | Encounter Summary ---
[place] [address] Care Team Providers Care Doctor Of Naprapathic Medicine Name Role Phone Bob Day MD Primary Care Provider [phone] Encounter Details Date Type Department Care Team (Late st Contact Info) Description 11/22/2018 Telephone [place] [phone] Karla Swann RN Social History Tobacco Use [...] Telephone Encounter - Karla Swann RN - 11/22/2018 3:55 PM EDT Incoming call from [facility] the [facility] that makes her Pump medication they wanted to advise that the patient medication will be sent to us on November 30 2018 but that we need to know that the medicationBUD will be December 03 2018 as the medication will need to be made a few days earlier as they are doing some maintenance work at their pharmacy. Nurse let HJ know as she is the one who schedules appointments. documented in this encounter Plan of Treatment Upcoming Encounters Date Type Department Care Team (Latest Contact Info) Description 04/06/2024 11:30 AM EST Hospital Encounter Outpatient [place] [address] Cadence Eric MD [facility] [place] [address] 04/06/2024 11:30 AM EST - 04/06/2024 12:50 PM EST Surgery [place]patient [place] [address] Cadence Eric MD [facility] [place] [address] IMPLANT NEUROSTIMULATOR ELECTRODES, PERIPHERAL NERVE (WRVU 5.76) 04/14/2024 2:30 PM EST Office Visit [place] [address] Cadence Eric MD [facility] [place] [address] Scheduled Procedures Name Priority Associated Diagnoses Date/Ti [...] on filedocumented in this encounter Care Teams Doctor Of Naprapathic Medicine Relationship Specialty Start Date End Date Bob Day MD [address] [place] [address] PCP - General Family Medicine 01/18/18 07/26/20 documented as of this encounter
--- OUTSIDE RECORDS SUMMARY | 2024-04-05 16:31 | XMS_ITS | Encounter Summary ---
Author Organization [facility] Address [facility] [place] [address] Care Team Providers Care Operations Business Partner Name Role Phone Bob Day MD Primary Care Provider [phone] Encounter Details Date Type Department Care Team (Late st Contact Info) Description 09/29/2018 [facility] Conversion Results [address] [place] [phone] [facility] Conversion, Flowsheet Provider, Social History Tobacco Use [...] Sign Reading Time Taken Comments Blood Pressure 127/76 09/29/2018 12:00 AM EDT Sourced from [facility] Conversion Pulse - - Temperature - - Respiratory Rate - - Oxygen Saturation - - Inhaled Oxygen Concentration - - Weight 108.9 kg (240 lb) 09/29/2018 12: 00 AM EDT Sourced from [facility] Conversion Height 152 cm (4' 11.84) 09/29/2018 12 :00 AM EDT Sourced from [facility] Conversion Body Mass Index 47.12 09/29/2018 12:00 AM EDT documented in this encounter Plan of Treatment Upcoming Encounters Date Type Department Care Team (Latest Contact Info) Description 04/06/2024 11:30 AM [facility] Hospital Encounter Outpatient [place] [address] Cadence Eric MD [facility] [address] [place] [address] 04/06/2024 11:30 AM EST - 04/06/2024 12:50 PM EST Surgery Outpatient [place] [address] Cadence Eric MD [facility] [place] [address] IMPLANT NEUROSTIMULATOR ELECTRODES, PERIPHERAL NERVE (WRVU 5.76) 04/14/2024 2:30 PM EST Office Visit [facility] [place] [address] Cadence Eric MD [facility] [place] [address] Scheduled Procedures Name Priority Associated Diagnoses Date/Ti [...] on filedocumented in this encounter Care Teams Operations Business Partner Relationship Specialty Start Date End Date Bob Day MD [address] [place] [address] PCP - General Family Medicine 01/18/18 07/26/20 documented as of this encounter
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
--- OUTSIDE RECORDS SUMMARY | 2024-04-05 16:31 | XMS_ITS | Encounter Summary ---
[facility] Address [facility] [place] [address] Care Team Providers Care Inspector Insulation Name Role Phone Bob Day MD Primary Care Provider [phone] Encounter Details Date Type Department Care Team (Late st Contact Info) Description 07/29/2018 Telephone [place] [phone] Mamta Mares RN Social History Tobacco Use Types Packs/Day [...] encounter Miscellaneous Notes * Telephone Encounter - Mamta Washington RN - 07/29/2018 9:32 AM EDT I called Etelvina she has just left the emergency department in [place]. She is having her notes faxed to [facility] for Dr. Blanco. She said they put her on two antibiotics. She is flying home Thursday and will be driving to [facility] Thursday. I let her know Dr. Blanco wants to see her as soon as possible. I will send this information to [facility] - seeking her help in getting a scheduled appointment for Etelvina to be seen next week. ~~~~~~~~~~~~~~~~~~~~~~~~~~~~~~~~~~~~~~~ I received a voice message from Etelvina who reports she developed abdominal cellulitis post operatively. Ms Cuadra is a 57F who is s/p robotic laparoscopic repair of incarcerated ventral hernia with mesh on 07/12/18. She called in on 07/16/2018 to speak to Melani Ardon about drainage from an incision. Pt is s/p Case Date:??07/12/2018 Surgeon:?* Izzy Blanco MD - Primary Preoperative diagnosis: VENTRAL HERNIA Postoperative diagnosis: VENTRAL HERNIA?? Procedure(s) (LRB):LAPAROSCOPIC HERNIA, VENTRAL, INCARCERATED, W-WO MESH (WRVU 14.94) (N/A) MODIFIER ROBOT,DAVINCI XI (N/A) MODIFIER MESH,BARD,ECHO POSITIONING SYSTEM (N/A) Findings:??3 cm fascial defect, containing fat from colon, reduced and closed. ??[address] mesh placed in IPOM plus fashion ?? She calls clinic today to report that she has some drainage from one of her incisions. She states it is the site at the top of her abdomen. She states that the glue has come off this one. She noticeda little bit of brownish drainage on the sheets this morning and again just a bit ago on her underwear. She states that she has some resolving bruising but does not have any redness or heat to the site. She has not taken her temperature but does not feel feverish. ?? Plan: I reassured her that this can be normal after surgery. I reviewed the signs and symptoms of infection with the patient. I instructed her to cover the site with a band aid to protect her clothing. She will call if she develops any signs of infection or with any other questions/concerns. Pt verbalizes her understanding and agrees with the plan. ??4:51 PM She called in to the doctor yardage control clerk on 07/25/2018 see below Gene Fernandez MD Resident General Surgery Telephone Encounter Signed Encounter Date: 07/25/2018 Ms Cuadra is a 57F who is [...] told her that if she came to [facility] [place] [place] I would be more than happy to assess her in the ED. She stated that this would be a [address] for her and that she would rather go to [facility] for a local urgent care. I told her that if she changes her mind I would be more than happyto reconsider and asked her to call back if she develops worsening pain/drainage, fevers/chills, etc Gene Fernandez MD-General Surgery Thursday she went to her local urgent care center in the [place], [place] area and was placed on an keflex. This seemed to work well until yesterday when she noted increasing redness, swelling and pain. She left her home on Thursday drove to [place] spent the night- boarded a plane and flew to [place] to visit a friend in the [place] area She was told by the care provider who prescribed the Keflex if she did not improve she is to go to a local emergency department, knowing she was about to travel to [place]. She feels the infection is deep and feels she is going to have terrible scarring. She denies fever, chills, nausea or vomiting. She notes she has a headache and is pushing fluids as she feels she might be dehydrated. She is with her friend who is going to take her to a local emergency department. I have asked her to use her my [employer] account to send in photos etc she said that she will. I gave her the phone number for medical records, Dr. Blanco's area secretary and fax number. She notes she will have records sent to Dr. Blanco. documented in this encounter Plan of Treatment Upcoming Encounters Date Type Department Care Team (Latest Contact Info) Description 04/06/2024 11:30 AM EST Hospital Encounter Outpatient [place] [address] Cadence Eric MD [facility] [place] [address] 04/06/2024 11:30 AM EST - 04/06/2024 12:50 PM EST Surgery Outpatient [place] [phone] Cadence Eric MD [facility] [place] [address] IMPLANT NEUROSTIMULATOR ELECTRODES, PERIPHERAL NERVE (WRVU 5.76) 04/14/2024 2:30 PM EST Office Visit [facility] [place] [address] Cadence Eric MD [facility] [place] [address] Scheduled Procedures Name Priority Associated Diagnoses Date/Ti [...] on filedocumented in this encounter Care Teams Inspector Insulation Relationship Specialty Start Date End Date Bob Day MD [address] [place] [address] PCP - General Family Medicine 01/18/18 07/26/20 documented as of this encounter
--- OUTSIDE RECORDS SUMMARY | 2024-04-05 16:31 | XMS_ITS | Encounter Summary ---
Author Organization [facility] Address [facility] [place] [address] Care Team Providers Care Digital Marketing Program Manager Name Role Phone Bob Day MD Primary Care Provider [phone] Reason for Visit * Reason Comments Pain Management pump refill Encounter Details Date Type Department Care Team (Latest Contact Info) Description 09/15/2018 2:00 PM EDT Procedure [place] [address] Karl Becker MD [facility] [place] [address] Chronic pain disorder (Primary Dx); Post laminectomy syndrome; Postlaminectomy syndrome; Cervicalgia; Chronic pain syndrome Social History Tobacco Use Types Packs/Day [...] Sign Reading Time Taken Comments Blood Pressure 136/74 09/15/2018 1:56 PM EDT Pulse 66 09/15/2018 1:56 PM EDT Temperature - - Respiratory Rate - - Oxygen Saturation 100% 09/15/2018 1:56 PM EDT Inhaled Oxygen Concentration - - Weight 106.6 kg (235 lb) 09/15/2018 1:56 PM EDT Height - - Body Mass Index 45.9 07/12/2018 6:21 AM EST documented in this encounter Procedure Notes * Karl Becker MD - 09/15/2018 2:00 PM EDTAssociated Order(s): INTRATHECAL PUMP REFILL Pre-Procedure Diagnose(s): Chronic pain disorder ?? Program: Karl Becker MD ?? Reason for Reprogramming:??refill ?? Diagnosis:??postlaminectomy syndrome ?? Telemetry Pre-Refill Programming Reading: Drugs/Concentrations: Morphine - Preservative Free ??- ??10 mg/ml Daily Dose: 4.5 mg per day ?? Telemetry Post-Refill Programming Reading: Drugs/Concentrations: Morphine - Preservative Free ??- ??10 mg/ml Daily Dose: 4.5 mg per day Brand/Compound: Compound. ?? Pump Capacity: 40 mL ?? Computer predicted residual volume in pump:??5.3ml Measured residual volume in pump:??6ml ?? Medication or Dose Changes:??no ?? Is dose change >30%???n/a ?? Is concentration of drug different?no ?? Empty syringe concentration verified by bag checker:??yes ?? If concentration of drug is different, has a bridge bolus been programmed???n/a. ?? Has any program been used other than simple continuous or bridge bolus and simple continuous???no ?? Infusion Mode:??simple continuous. ?? New ??Alarm Date: 12/08/18 ?? PROCEDURE: Risks and expected side effects were reviewed with patient and??her??voiced concerns addressed. ??The printed consent form was signed and witnessed. ??The following information was verified: ? Patient Name on RX:??yes ?? Drug Name on RX: yes ?? Drug concentration on syringe containing pump refill medication:??yes ?? The pump was accessed via telemetry and the computer predicted residual volume was noted as per above. Then??Chlorhexidine??prep over the pump refill site was performed. ??Sterile drapes were appliedas provided with the ??Intimate Bridge 2 Conception refill kit. A 22 gauge Moraes non-coring needle supplied with the refill kit was inserted through the refill-template into the central refill port of the pump. ??The pump was aspirated for the above measured residual volume. ??This residual volume was discarded. Freshly prepared solution of the drug(s) and concentration(s) as noted above was used to refill the pump. 5 ml of solution was instilled and easily withdrawn, no more and no less than 5 ml. A total of 40??ml of solution was instilled into the pump according to the parent partner's directions without difficulty. There was no evidence [...] EST Hospital Encounter Outpatient [place] [address] Cadence Eric MD [facility] [address] 04/06/2024 11:30 AM EST - 04/06/2024 12:50 PM EST Surgery Out[facility] [place] [address] Cadence Eric MD [facility] [address] IMPLANT NEUROSTIMULATOR ELECTRODES, PERIPHERAL NERVE (WRVU 5.76) 04/14/2024 2:30 PM EST Office Visit [facility] [place] [address] Cadence Eric MD [facility] [place] [address] Scheduled Procedures Name Priority Associated Diagnoses Date/Ti [...] Associated Diagnosis Comments INTRATHECAL PUMP REFILL Routine 09/15/2018 2:00 PM EDT Chronic pain disorder documented in this encounter Results * INTRATHECAL PUMP REFILL (09/15/2018 2:00 PM EDT) Narrative Vikki Jimenez - 09/15/2018 2:00 PM EDT Karl Becker MD ? 09/15/2018 ??4:19 PM ?? Program: Karl Becker MD ?? Reason for Reprogramming:??refill ?? Diagnosis:??postlaminectomy syndrome ?? Telemetry Pre-Refill Programming Reading: Drugs/Concentrations: Morphine - Preservative Free ??- ??10 mg/ml Daily Dose: 4.5 mg per day ?? Telemetry Post-Refill Programming Reading: Drugs/Concentrations: Morphine - Preservative Free ??- ??10 mg/ml Daily Dose: 4.5 mg per day Brand/Compound: Compound. ?? Pump Capacity: 40 mL ?? Computer predicted residual volume in pump:??5.3ml Measured residual volume in pump:??6ml ?? Medication or Dose Changes:??no ?? Is dose change >30%???n/a ?? Is concentration of drug different?no ?? Empty syringe concentration verified by bag checker:??yes ?? If concentration of drug is different, has a bridge bolus been programmed???n/a. ?? Has any program been used other than simple continuous or bridge bolus and simple continuous???no ?? Infusion Mode:??simple continuous. ?? New ??Alarm Date: 12/08/18 ?? PROCEDURE: Risks and expected side effects were reviewed with patient and??her??voiced concerns addressed. ??The printed consent form was signed and witnessed. ??The following information was verified: ? Patient Name on RX:??yes ?? Drug Name on RX: yes ?? Drug concentration on syringe containing pump refill medication:??yes ?? The pump was accessed via telemetry and the computer predicted residual volume was noted as per above. Then??Chlorhexidine??prep over the pump refill site was performed. ??Sterile drapes were applied as provided with the ??Intimate Bridge 2 Conception refill kit. A 22 gauge Moraes non-coring needle supplied with the refill kit was inserted through the refill-template into the central refill port of the pump. ??The pump was aspirated for the above measured residual volume. ??This residual volume was discarded. Freshly prepared solution of the drug(s) and concentration(s) as noted above was used to refill the pump. 5 ml of solution was instilled and easily withdrawn, no more and no less than 5 ml. A total of 40??ml of solution was instilled into the pump according to the parent partner's directions without difficulty. There was no evidence [...] be arranged for refills as appropriate. Procedure Note Karl Becker MD - 09/15/2018 2:00 PM EDT ?? Program: Karl Becker MD ?? Reason for Reprogramming:??refill ?? Diagnosis:??postlaminectomy syndrome ?? Telemetry Pre-Refill Programming Reading: Drugs/Concentrations: Morphine - Preservative Free ??- ??10 mg/ml Daily Dose: 4.5 mg per day ?? Telemetry Post-Refill Programming Reading: Drugs/Concentrations: Morphine - Preservative Free ??- ??10 mg/ml Daily Dose: 4.5 mg per day Brand/Compound: Compound. ?? Pump Capacity: 40 mL ?? Computer predicted residual volume in pump:??5.3ml Measured residual volume in pump:??6ml ?? Medication or Dose Changes:??no ?? Is dose change >30%???n/a ?? Is concentration of drug different?no ?? Empty syringe concentration verified by bag checker:??yes ?? If concentration of drug is different, has a bridge bolus beenprogrammed???n/a. ?? Has any program been used other than simple continuous or bridge bolus andsimple continuous???no ?? Infusion Mode:??simple continuous. ?? New ??Alarm Date: 12/08/18 ?? PROCEDURE: Risks and expected side effects were reviewed with patient and??her??voicedconcerns addressed. ??The printed consent form was signed and witnessed.??The following information was verified: ? Patient Name on RX:??yes ?? Drug Name on RX: yes ?? Drug concentration on syringe containing pump refill medication:??yes ?? The pump was accessed via telemetry and the computer predicted residualvolume was noted as per above. Then??Chlorhexidine??prep over the pumprefill site was performed. ??Sterile drapes were applied as provided withthe ??Intimate Bridge 2 Conception refill kit. A 22 gauge Moraes non-coring needle suppliedwith the refill kit was inserted through the refill-template into thecentral refill port of the pump. ??The pump was aspirated for the abovemeasured residual volume. ??This residual volume was discarded. Freshlyprepared solution of the drug(s) and concentration(s) as noted above wasused to refill the pump. 5 ml of solution was instilled and easilywithdrawn, no more and no less than 5 ml. A total of 40??ml of solution wasinstilled into the pump according to the parent partner's directions withoutdifficulty. There was no evidence of over pressurization at the conclusionof the filling process. ??The Moraes needle was withdrawn and a Band-Aid wasapplied. The pump was then re-accessed via telemetry and reprogrammed toindicate the refill volume of 40??ml. The unused portion of the medicationwas discarded along with the old drug aspirated. ?? Battery alarms reviewed and were appropriately enabled and in workingorder. ?? Patient tolerated the procedure well and [facility]. Follow-up appointments will be arranged for refills asappropriate. Karl Becker MD PROCEDURE/MINOR SURG ICAL ORDERABLES documented in this encounter Visit Diagnoses Diagnosis Chronic pain disorder- Primary Chronic pain syndrome Post laminectomy syndrome Postlaminectomy syndrome, unspecified region Postlaminectomy syndrome Postlaminectomy syndrome, unspecified region Cervicalgia Chronic pain syndrome Saphenous neuralgia, right documented in this encounter Administered Medications Inactive Administered Medications - up to 3 most recent administrations Medication Order MAR Action Action Date Dose Rate Site pain clinic compounded medication 1 each 1 each, Intrathecal, ONCE, 1 dose, On Thu09/15/18 at 1645, Routine, Medication Name and Dose: morphine 10mg/ml Given 09/15/2018 4:16 PM EDT 1 each documented in this encounter Care Teams Digital Marketing Program Manager Relationship Specialty Start Date End Date Bob Day MD [address] [place] [address] PCP - General Family Medicine 01/18/18 07/26/20 documented as of this encounter
--- OUTSIDE RECORDS SUMMARY | 2024-04-05 16:31 | XMS_ITS | Encounter Summary ---
Author Organization [facility] Address [facility] [place] [address] Care Team Providers Care Product Picker Name Role Phone Bob Day MD Primary Care Provider [phone] [phone] Encounter Details Date Type Department Care Team (Late st Contact Info) Description 03/23/2019 9:55 AM EST Ancillary Procedure XRay at [address] [place] [address] Social History Tobacco Use Types Packs/Day Years [...] AM EST Hospital Encounter Outpatient [place] [address] Cadence Eric MD [facility] [place] [address] 04/06/2024 11:30 AM EST - 04/06/2024 12:50 PM EST Surgery [place]patient [place] [phone] Cadence Eric MD [facility] [place] [address] IMPLANT NEUROSTIMULATOR ELECTRODES, PERIPHERAL NERVE (WRVU 5.76) 04/14/2024 2:30 PM EST Office Visit [place] [address] Cadence Eric MD [facility] [place] [address] Scheduled Procedures Name Priority Associated Diagnoses Date/Ti [...] OR USE Routine 03/23/2019 9:55 AM EST documented in this encounter Results * XR Fluoro No Rad <1Hr - OR Use (03/23/2019 9:55 AM EST) Narrative [facility] - 03/23/2019 9:56 AM EST This exam is auto-finalizing. No interpretation was done. Karl Becker MD IMG FLUORO ORDERABLE [address] [place], [place] documented in this encounter Visit Diagnoses Not on filedocumented in this encounter Care Teams Product Picker Relationship Specialty Start Date End Date Bob Day MD [address] [place] [id number] PCP - General Family Medicine 01/18/18 07/26/20 documented as of this encounter
--- OUTSIDE RECORDS SUMMARY | 2024-04-05 16:31 | XMS_ITS | Encounter Summary ---
Author Organization [facility] [place] [address] Care Team Providers Care Care Team Coordinator Scheduler Name Role Phone Bob Day MD Primary Care Provider [phone] Encounter Details Date Type Department Care Team (Late st Contact Info) Description 07/16/2018 Telephone [place] [phone] Melani Ardon, RN Social History Tobacco Use [...] Telephone Encounter - Melani Ardon RN - 07/16/2018 4:43 PM EST Pt is s/p Case Date: 07/12/2018 ?? [...] ST mesh placed in IPOM plus fashion She calls clinic today to report that [...] her temperature but does not feel feverish. Plan: I reassured her that this can be normal after surgery. I reviewed the signs and symptoms of infection with the patient. I instructed her to cover the site with a band aid to protect her clothing. She will call if she develops any signs of infection or with any other questions/concerns. Pt verbalizes her understanding and agrees with the plan. documented in this encounter Plan of Treatment Upcoming Encounters Date Type Department Care Team (Latest Contact Info) Description 04/06/2024 11:30 AM EST Hospital Encounter Outpatient [place] [address] Cadence Eric MD [facility] [place] [address] 04/06/2024 11:30 AM EST - 04/06/2024 12:50 PM EST Surgery [place]patient [place] [address] Cadence Eric MD [facility] [place] [address] IMPLANT NEUROSTIMULATOR ELECTRODES, PERIPHERAL NERVE (WRVU 5.76) 04/14/2024 2:30 PM EST Office Visit [facility] [place] [address] Cadence Eric MD [facility] [place] [address] Scheduled Procedures Name Priority Associated Diagnoses Date/Ti [...] on filedocumented in this encounter Care Teams Care Team Coordinator Scheduler Relationship Specialty Start Date End Date Bob Day MD [address] [place] [address] PCP - General Family Medicine 01/18/18 07/26/20 documented as of this encounter
--- OUTSIDE RECORDS SUMMARY | 2024-04-05 16:31 | XMS_ITS | Encounter Summary ---
Author Organization [facility] Address [facility] [place] [address] Care Team Providers Care Strength And Conditioning Coach Name Role Phone Bob Day MD Primary Care Provider [phone] Reason for Visit * Reason Comments Pain Management Encounter Details Date Type Department Care Team (Latest Contact Info) Description 12/01/2018 1:00 PM EDT Procedure visit [place] [address] Ponce Becker MD [facility] [place] [address] Postlaminectomy syndrome (Primary Dx); Post laminectomy syndrome Social History Tobacco Use Types Packs/Day [...] Sign Reading Time Taken Comments Blood Pressure 142/72 12/01/2018 1:09 PM EDT Pulse 66 12/01/2018 1:09 PM EDT Temperature - - Respiratory Rate 18 12/01/2018 1:09 PM EDT Oxygen Saturation 100% 12/01/2018 1:09 PM EDT Inhaled Oxygen Concentration - - Weight 106.6 kg (235 lb) 12/01/2018 1:09 PM EDT Height - - Body Mass Index 46.14 11/23/2018 12:00 AM EDT documented in this encounter Progress Notes * Woody So S - 12/01/2018 1:00 PM EDT INTRATHECAL PUMP REFILL PROCEDURE NOTE WITH REPROGRAMMING Primary Transit Mixer Operator: Ponce Becker MD [employer] Press Feeder: Woody So MD Reason for Reprogramming: Pump Refill Diagnosis: Postlaminectomy Syndrome. Telemetry Pre-Refill Programming Reading: Drugs/Concentrations: Morphine - Preservative Free - 10 mg/ml Daily Dose: 4.504mg Telemetry Post-Refill Programming Reading: Drugs/Concentrations: Morphine - Preservative Free - 10 mg/ml Daily Dose: 4.504mg Brand/Compound: Brand. Lot #: [employer] Pump Capacity: 40 mL Computer predicted residual volume in pump: 5.4ml Measured residual volume in pump: 6ml Medication or Dose Changes: no Is dose change >30%? no Is concentration of drug different? no Empty syringe concentration verified by quotation checker: yes If concentration of drug is different, has a bridge bolus been programmed? n/a. Has any program been used other than simple continuous or bridge bolus and simple continuous? n/a Infusion Mode: simple continuous. New Alarm Date: 02/23/2019 PROCEDURE: Risks and expected side effects were [...] drapes were applied as provided with the [employer] refill kit. A 22 gauge Moraes non-coring [...] instilled into the pump according to the candy depositing machine operator's directions without difficulty. There was no [...] be arranged for refills as appropriate. I was the attending physician supervising the resident in the above care and I was present with theresident for the entire procedure. PONCE BECKER MD documented in this encounter Plan of Treatment Upcoming Encounters Date Type Department Care Team (Latest Contact Info) Description 04/06/2024 11:30 AM EST Hospital Encounter [place] [address] Cadence Eric MD [facility] [place] [address] 04/06/2024 11:30 AM EST - 04/06/2024 12:50 PM EST Surgery [place] [place] [address] Cadence Eric MD [facility] [place] [address] IMPLANT NEUROSTIMULATOR ELECTRODES, PERIPHERAL NERVE (WRVU 5.76) 04/14/2024 2:30 PM EST Office Visit [facility] [place] [address] Cadence Eric MD [facility] [place] [address] Scheduled Orders Name Type Priority Associated Diagnoses Orde r Schedule INTRATHECAL PUMP REFILL Procedures Routine Postlaminectomy syndrome Ordered: 12/01/2018 Scheduled Procedures Name Priority Associated Diagnoses Date/Ti me IMPLANT NEUROSTIMULATOR ELECTRODES, PERIPHERAL NERVE (WRVU 5.76) Yes Saphenous neuralgia, right 04/06/2024 11:30 AM EST IMPLANT NEUROSTIMULATOR ELECTRODES, PERIPHERAL NERVE (WRVU 5.76) Saphenous neuralgia, 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 Neuropathic pain COLONOSCOPY,SCREENING (WRVU 3.26) Health maintenance examination-screening colo documented as of this encounter Visit Diagnoses Diagnosis Postlaminectomy syndrome- Primary Postlaminectomy syndrome, unspecified region Post laminectomy syndrome Postlaminectomy syndrome, unspecified region Saphenous neuralgia, right documented in this encounter Administered Medications Inactive Administered Medications - up to 3 most recent administrations Medication Order MAR Action Action Date Dose Rate Site pain clinic compounded medication 1 each 1 each, Intrathecal, ONCE, 1 dose, On Thu12/01/18 at 1445, Routine, Medication Name and Dose: Morphine 10mg/ml Given 12/01/2018 2:19 PM EDT 1 each documented in this encounter Care Teams Strength And Conditioning Coach Relationship Specialty Start Date End Date Bob Day MD [address] [place] [address] PCP - General Family Medicine 01/18/18 07/26/20 documented as of this encounter
--- OUTSIDE RECORDS SUMMARY | 2024-04-05 16:31 | XMS_ITS | Encounter Summary ---
Author Organization [facility] Address [facility] [place] [address] Care Team Providers Care Fuel Cell Builder Name Role Phone Bob Day MD Primary Care Provider [phone] Reason for Visit * Auth/Cert Specialty Diagnoses / Procedures Referred By Cindy wooten Referred To Contact Diagnoses Post Laminectomy Syndrome Procedures PRO INSERT/ REPLACE INFUSN PUMP, PROGRAMMABLE IMPLANT OR REPLACE PROG. PUMP-DRUG INFUSION (WRVU 5.6) Referral ID Status Reason Start Date Expiration Date Visits Re quested Visits Authorized [id number] 1 1 Encounter Details Date Type Department Care Team (Late st Contact Info) Description 03/23/2019 7:30 AM EST - 03/23/2019 9:58 AM EST Surgery [place] [address] Karl Dotson MD [facility] [place] [address] IMPLANT, REV OR REP TUNNELED INTRATHACAL OR EPIDURAL CATHETER (WRVU 6.05) Social History Tobacco Use Types Packs/Day Years [...] Sign Reading Time Taken Comments Blood Pressure 102/64 03/23/2019 6:03 AM EST Pulse 71 03/23/2019 6:03 AM EST Temperature 37.4 ??C (99.3 ??F) 03/23/2019 6:03 AM ES T Respiratory Rate 16 03/23/2019 6:03 AM EST Oxygen Saturation 94% 03/23/2019 6:03 AM EST Inhaled Oxygen Concentration - - [...] REPRESENTATIVE [facility] Arrive at: Supervisor [employer] Cash[employer] Area 3D [phone] 04/04/2019 11:00 AM Geovanna Greco MD [facility] Arrive at: Super[facility] [employer] [facility] [facility] [employer] Area [phone] Discharge Medications: Your Medications Continued medications, unchanged [...] daily. 160 mg Refills: 0 Fluarix Quad 9520-9098 (PF) 60 mcg (15 mcg x 4)/0.5 mL Syrg inject 0.5 milliliters intramuscularly Generic drug: flu vacc [id number] 6mos up(PF) Refills: 0 Havrix (PF) 1,440 [...] 1 tablet Refills: 0 Narcan 4 mg/actuation Rennert instill 1 spray in 1 NOSTRIL if [...] Snyder PA-C, Maykel Dumont PA-C, Magi Betancourt, TRAVELERS' AID WORKER: ?? Neurosurgeon - Dr. Darden: After office hours (5PM to 8AM) and on weekends you can reach neurosurgery by calling the hospital batch roller operator at and ask for the Neurosurgery resident on-call Neurology/Neurosugery (5W) and Neuro Special Care Unit (NSCU): CC: Bob Day MD HOW TO REACH NEUROSURGERY Contact your Doctor Office Hours: Thursday through Thursday, 8am-5pm. Call . On weekends or after office hours: Call [phone] and ask the batch roller operator to page the Neurosurgery Resident marble mason. IMPORTANT PHONE NUMBERS: Outpatient Nurse (Winter Ren) Inpatient Nurses Neurosurgical Resident On-Call (after 5pm or before 8am) Neurosurgery offices (Thursday through Thursday between 8am-5pm): Adult Neurosurgery Dr. Kt Darden Pediatric Neurosurgery Dr. Maykel Alvarado Mid-level practitioners Maykel Dumont, Physician Filling Mixer Anderson Zee, Physician Filling Mixer Geovanna Sow, Nurse Practitioner Mari Horne, Nurse Practitioner * Your surgeon may not be call specialist, so be ready to tell about yourself [...] - Maykel Snyder PA-C, Maykel Dumont PA-C, Magihubert Betancourt APRN: ?? Neurosurgeon - Dr. Darden: After office hours (5PM to 8AM) and on weekends you can reach neurosurgery by calling the hospital batch roller operator at and ask for the Neurosurgery resident on-call Neurology/Neurosugery (5W) and Neuro Special Care Unit (NSCU): CC: Bob Day MD documented in this encounter Medications at Time of Discharge Medication Sig Dispensed Refills Start Date End Date calcium carbonate-vitamin D3 (Os-Nico 500 + D3) 500mg (1,250mg) -600 unit Tablet Take 1 tablet by mouth Daily. 01/16/2016 NARCAN 4 mg/actuation [place], Non-Aerosol instill 1 spray in 1 NOSTRIL if needed for opioid overdose may re... (REFER TO PRESCRIPTION NOTES). 0 12/08/2018 multivitamin with minerals Tablet Take 1 tablet by mouth daily. morphine sulfate/D5W (MORPHINE IN D5W) 1 mg/mL Prefilled Pump Man Inject as directed. Has intrathecal pump with [...] a week 0 12/06/2018 02/21/2020 flu vacc [id number],6mos up,/PF (FLUARIX QUAD 6314-2482, PF,) 60 mcg (15 mcg x 4)/0.5 [...] RN - 03/24/2019 1:08 PM EST Etelvina Cuadra discharged to home by car with family. [...] for d/c today For question please call [facility] pager [phone] Joaquin Wheatley MD 03/24/2019 Clinical Documentation Improvement: [...] called in 1730 - Report called to [facility], SONNY Ya 1750 - Transferred to [facility] on monitor with RN * Sarai Medina RN - 03/23/2019 11:27 AM EST 1112 pt arrived from or to pacu in a bed accompanied by anesthesia and service. Co pain and medicated by anesthesia. Monitors attached/ alarms on. 1128 urge to void. Bedpan given. Able to turn well in bed. Back dressing is cdi. 1142 report to Jessiac Rn documented in this encounter H&P Notes * Woody So - 03/23/2019 7:08 AM EST Patient Name: Etelvina NOLANN: [id number] Patient Age: 58 y.o. Birthdate: 1960 Admit [...] WITH BX performed by NIKKI MAYORGA at [facility] ENDOSCOPY ??? PRO COLONOSCOPY, DIAGNOSTIC 09/23/2011 COLONOSCOPY, DIAGNOSTIC performed by NIKKI MAYORGA at [facility] ENDOSCOPY ??? PRO LAP, CHOLECYSTECTOMY/GRAPH N/A 10/18/2016 LAPAROSCOPIC CHOLECYSTECTOMY WITH CHOLANGIOGRAM (WRVU 11.47) performed by Tasia Umaña MD at [facility] MAIN OR ??? PRO LAP, VENTRAL HERNIA REPAIR, INCARCERATED N/A 07/12/2018 LAPAROSCOPIC HERNIA, VENTRAL, INCARCERATED, W-WO MESH (WRVU 14.94) performed by Izzy Blanco MD at [facility] MAIN OR ALLERGIES: Peanut; Peanut oil; Rice; [...] (MORPHINE IN D5W) 1 mg/mL Prefilled Pump Man Inject as directed. ??? oxyCODONE (ROXICODONE) 10 [...] times a week 0 ??? flu vacc [id number],6mos up,/PF (FLUARIX QUAD 4535-6029, PF,) 60 mcg (15 mcg x 4)/0.5 mL Syringeinject 0.5 milliliters intramuscularly 0 ??? HAVRIX, PF, 1,440 SONIDO unit/mL Syringe inject 1 milliliter intramuscularly 0 ??? NARCAN 4 mg/actuation [place], Non-Aerosol instill 1 [...] file Gets together: Not on file Attends latter day service: Not on file Active member of [...] reviewed. Woody So M.D. Pain Management Fellow [address] [address] / [facility] documented in this encounter Miscellaneous [...] Specific Information: na Health/Prescription Coverage: Primary Insurance: [employer] Secondary Insurance: MEDICARE Prescription Coverage: yes Preferred Pharmacy: [facility] Primary Care Provider: Bob Day MD [phone] Patient/Caregiver Goals of Treatment: Potential Needs for [...] transition of care planning. RUBEN Meyer Pager: [phone] * Op Note - Woody So 03/23/2019 3:[address] [facility] Operative Note Patient Name: Etelvina Cuadra : [id number] MR#: [id number] Case Date: 03/23/2019 Surgeon: Surgeon(s) and Role: [...] Darden MD - 03/23/2019 1:[address] [facility] Operative Note Patient Name: Etelvina Cuadra : [id number] MR#: [id number] Case Date: 03/23/2019 Surgeon: Surgeon(s) and Role: [...] abdomen, this is marked with a green [place]. The patient was brought back to the [...] Operative Note Patient Name: Etelvina Cuadra : [id number] MR#: [id number] Case Date: 03/23/2019 Surgeon: Surgeon(s) and Role: [...] Operative Note Patient Name: Etelvina Cuadra : [id number] MR#: [id number] Case Date: 03/23/2019 Surgeon: Surgeon(s) and Role: [...] AM EST Hospital Encounter [place] [address] Cadence Eric MD [facility] [place] [address] 04/06/2024 11:30 AM EST - 04/06/2024 12:50 PM EST Surgery [place] [address] Cadence Eric MD [facility] [place] [address] IMPLANT NEUROSTIMULATOR ELECTRODES, PERIPHERAL NERVE (WRVU 5.76) 04/14/2024 2:30 PM EST Office Visit [facility] [place] [address] Cadence Eric MD [facility] [place] [address] Scheduled Procedures Name Priority Associated [...] AM EST Insert/ Replace Infusn Pump, Programmable (55904) 03/23/2019 7:40 AM EST Post Laminectomy Syndrome Imp Spinal Canal Cath (30863) 03/23/2019 7:40 AM EST Post Laminectomy Syndrome IMPLANTABLE DEVICES SCAN 03/23/2019 12:00 AM EST documented in this encounter Results * XR Fluoro No Rad <1Hr - OR Use (03/23/2019 9:55 AM EST) Narrative RAD - 03/23/2019 9:56 AM EST This exam is auto-finalizing. No interpretation was done. Karl Dotson MD IMG FLUORO ORDERABLE [place], [place] * SCAN DOC: IMPLANTABLE DEVICES (03/23/2019 12:00 AM EST) Narrative 03/23/2019 12:00 AM EST Ordered by an unspecified provider. Scanning Provider MEDIA MGR SCAN EXT O RDR/RSLT documented in this encounter Visit Diagnoses Not on filedocumented in this encounter Admitting Diagnoses Diagnosis Chronic pain Other chronic pain documented in this encounter Administered Medications Inactive Administered Medications - up to 3 most recent administrations Medication Order MAR Action Action Date Dose Rate Site acetaminophen (TYLENOL) suppository 650 mg 650 mg, Rectal, EVERY 4 HOURS PRN, Starting on Thu03/24/19 at 0516, Until Thu03/24/19 at 1514, Pain, Mild pain (1-3), Give per rectum (LA) if unable to take PO. Do not [...] Given 03/24/2019 8:07 AM EST 650 mg bacitracin injection ONCE PRN, Starting on Thu03/23/19 at 1038, Until Thu03/24/19 at 1514, Intra-Operative (Intra-Procedure), Routine Given 03/23/2019 10:38 AM EST 50,000 Units 19- Surgical Site bacitracin ointment ONCE PRN, Starting on Thu03/23/19 at 1058, Until Thu03/24/19 at 1514, Intra-Operative (Intra-Procedure) Given 03/23/2019 10:58 AM EST 1 Tube 19- Surgical Site BUpivacaine (PF) (MARCAINE) 0.25 % (2.5 mg/mL) injection ONCE PRN, Starting on Thu03/23/19 at 0943, Until Thu03/24/19 at 1514, Intra-Operative (Intra-Procedure), Routine Given 03/23/2019 9:46 AM EST 20 mLs 19- Surgical Site Given 03/23/2019 9:43 AM EST 20 mLs 19 - Surgical Site ceFAZolin (ANCEF) 2g in dextrose 5% [...] Given 03/23/2019 6:25 AM EST 3 mg morphine (PF) injection ONCE PRN, Starting on Thu03/23/19 at 0947, Until Thu03/24/19 at 1514, Intra-Operative (Intra-Procedure), Routine Given 03/23/2019 9:47 AM EST 20 mg 19- Surgical Site naloxone (NARCAN) injection 0.2 mg 0.2 mg, Intravenous, EVERY 1 MIN PRN, Starting on Thu03/24/19 at 0516, Until Thu03/24/19 at 1514, Opioid Reversal, If respiratory rate [...] 9:00 AM EST 5 mLs sodium chloride 0.9 % (flush) flush 5-20 mL 5-20 mL, Intravenous, EVERY 1 MIN PRN, Starting on Thu03/23/19 at 0612, Until Thu03/23/19 at 1556, flush, Flush pertains to all indwelling lines. Flush per protocol found in the job aid using the link provided on this medication record., Day of Surgery (Day of Procedure), Routine Given 03/23/2019 10:44 AM EST 10 mLs 19- Surgical Site sodium chloride 0.9% infusion 1,000 mL, at 100 mL/hr, Intravenous, CONTINUOUS, Starting on Thu03/23/19 at 1215, Until Gerda 03/24/19 at 1027, Recovery (Recovery-Hospital Unit) New Bag 03/24/2019 8:11 AM EST 1,000 mLs 100 mL/hr New Bag 03/23/2019 9:33 PM EST 1,000 [...] Discontinued, Routine 2240 (Given - Provider: Anju Lara, SONNY) fenofibrate micronized (LOFIBRA) capsule 134 mg 134 mg, Oral, NIGHTLY, First dose on Thu03/23/19 at 2300, Until Discontinued, Pt reports that she takes at night not in AM 134mg is what is available, Routine 2308 (Given - Provider: Anju Lara, SONNY) levothyroxine (SYNTHROID) tablet 100 mcg 100 mcg, Oral, NIGHTLY, First dose on Thu03/23/19 at 2230, Until Discontinued, Confirmed that pt does take at night and not in AM, Routine 224 (Given - Provider: Anju Lara, SONNY) oxyCODONE (OxyCONTIN) CR tablet 20 mg 20 mg, Oral, EVERY 12 HOURS SCHEDULED (2 times per day), First dose on Thu03/23/19 at 1700, Until Discontinued, DO NOT CRUSH OR OPEN, Routine 1746 (Given - Provider: Lauren Jackson RN) 0503 (Given - Provider: Lucia Jackson, SONNY) senna-docusate (PERICOLACE) 8.6-50 mg per tablet 2 tablet 2 tablet, Oral, 2 TIMES DAILY, First dose on Thu03/24/19 at 0900, Until Discontinued, Routine 0807 (Given - Provid er: Felton Darden, SONNY) sodium chloride 0.9 % (flush) flush 5 mL 5 mL, Intravenous, 2 TIMES DAILY, First dose on Thu03/24/19 at 0900, Until Discontinued, Recovery (Recovery-Hospital Unit), Routine 0900 (Given - Provid er: Felton Darden, SONNY) Continuous Medication Order 03/22/2019 03/23/2019 03/24/2019 lactated [...] Until Thu03/24/19 at 1027, Recovery (Recovery-Hospital Unit) 1200 (New Bag - Provider: Lauren Jackson RN)2133 (New Bag - Provider: Anju Lara RN) 0811 (New Bag - Provider: Felton Darden RN) PRN Medication Order 03/22/2019 03/23/2019 03/24/2019 acetaminophen (TYLENOL) suppository 650 mg(Linked Group 1) 650 mg, Rectal, EVERY 4 HOURS PRN, Starting on Thu03/24/19 at 0516, Until Thu03/24/19 at 1514, Pain, Mild pain (1-3), Give per rectum (LA) if unable to take PO. Do not [...] PRN, Starting on Thu03/23/19 at 2215, Until Gerda 03/24/19 at 1514, Wheezing, Routine, Is there a contraindication to the patient receiving this medication as a nebulizer? Yes bacitracin injection (CANCELED) ONCE PRN, Starting on Thu03/23/19 at 1038, Until Thu03/24/19 at 1514, Intra-Operative (Intra-Procedure), Routine 1038 (Given - Provider: Karl Dotson MD - Comment: 23925 UNITS BACITRACIN MIXED IN 1000ML NACL) bacitracin [...] minutes once if pain not relieved., Routine 1536 (See Alternative - Provider: Lauren Jackson RN)1950 (Given - Provider: Lucia Jackson RN)2358 (Given - Provider: Anju Lara RN) 410 (Given - Provider: Anju Lara RN) HYDROmorphone (DILAUDID) injection 0.6 mg (CANCELED)(Linked Group 3) 0.6 mg, Intravenous, EVERY 4 HOURS PRN, Starting on Thu03/23/19 at 1456, Until Gerda 03/24/19 at 1027, Pain, severe pain (7-10), May give an additional 0.2 mg in 30 minutes once if pain not relieved., Routine 153 (Given - Provider: Lauren Jackson RN)1950 (See Alternative - Provider: Lucia Jackson RN)2358 (See Alternative - Provider: Anju Lara RN) 410 (See Alternative - Provider: Anju Lara, SONNY) labetalol (NORMODYNE,TRANDATE) injection 10-20 mg 10-20 mg, [...] Starting on Gerda 03/24/19 at 0516, Until Thu03/24/19 at 1514, for discomfort with PIV insertion, Recovery (Recovery-Hospital Unit), Routine morphine (PF) injection (CANCELED) ONCE PRN, Starting on Thu03/23/19 at 0947, Until Thu03/24/19 at 1514, Intra-Operative (Intra-Procedure), Routine 0947 (Given [...] Anju Lara RN)0908 (Given - Provider: Felton Darden RN) oxyCODONE (ROXICODONE) immediate release tablet 5-10 mg(Linked Group 5) 5-10 mg, Oral, EVERY 4 HOURS PRN, Starting on Thu03/23/19 at 1148, Until Thu03/24/19 at 1514, Pain, moderate pain (4-6), Initial dose 5mg. If pain control not adequet in 60 minutes, give additional 5mg., Routine 1251 (See Alternative - Provider: Lauren Jackson RN)1538 (Given - Provider: Lauren Jackson, RN)195 (Given - Provider: Lucia Jackson, RN)2200 (Given - Provider: Anju Lara, RN)2358 (Given - Provider: Anju Lara, RN) 0410 (Given - Provider: Anju Lara, RN)0908 (See Alternative - Provider: Felton Darden [...] MD - Comment: 10ML NACL MIXED WITH 30210 UNITS BACITRACIN AND ADDED TO 1000ML IRRIGATION) sodium chloride 0.9 % (flush) flush 5-20 mL 5-20 mL, Intravenous, EVERY 1 MIN PRN, Starting on Gerda 03/24/19 at 0516, Until Gerda 03/24/19 at 1514, flush, Flush pertains to all [...] Pain, Mild pain (1-3), Give per rectum (LA) if unable to take PO. Do not [...] Oral, EVERY 6 HOURS PRN, Starting on Gerda [...] 1456, Until Gerda 03/24/19 at 1027, Pain, mild pain (1-3), May [...] 1148, Until Gerda 03/24/19 at 1514, Pain, moderate pain (4-6), Initial [...] Routine documented in this encounter Care Teams Fuel Cell Builder Relationship Specialty Start Date End Date Bob Day MD [address] [place] [address] PCP - General Family Medicine 01/18/18 07/26/20 documented as of this encounter
--- OUTSIDE RECORDS SUMMARY | 2024-04-05 16:31 | XMS_ITS | Encounter Summary ---
Author Organization [facility] Address [facility] [place] [address] Care Team Providers Care Online Retailer Name Role Phone Bob Day MD Primary Care Provider [phone] Encounter Details Date Type Department Care Team (Late st Contact Info) Description 09/15/2018 Orders [place] [phone] Niesha Ayala, MACIEL Social History Tobacco Use Types Packs/Day Years [...] AM EST Hospital Encounter [place] [address] Cadence Eric MD [facility] [place] [address] 04/06/2024 11:30 AM EST - 04/06/2024 12:50 PM EST Surgery [place] [phone] Cadence Eric MD [facility] [place] [address] IMPLANT NEUROSTIMULATOR ELECTRODES, PERIPHERAL NERVE (WRVU 5.76) 04/14/2024 2:30 PM EST Office Visit [place] [address] Cadence Eric MD [facility] [place] [address] Scheduled Procedures Name Priority Associated Diagnoses Date/Ti [...] on filedocumented in this encounter Care Teams Online Retailer Relationship Specialty Start Date End Date Bob Day MD [address] [place] [address] PCP - General Family Medicine 01/18/18 07/26/20 documented as of this encounter
--- OUTSIDE RECORDS SUMMARY | 2024-04-05 16:32 | XMS_ITS | Encounter Summary ---
Author Organization [facility] Address [facility] [place] [address] Care Team Providers Care Support Coordinator Name Role Phone Bob Day MD Primary Care Provider [phone] [phone] Reason for Visit * Reason Comments Pain Management pump refill Encounter Details Date Type Department Care Team (Latest Contact Info) Description 06/30/2018 11:30 AM EST Procedure [place] [address] Ponce Becker MD [facility] [place] [place] [address] Postlaminectomy syndrome Social History Tobacco Use Types Packs/Day [...] Sign Reading Time Taken Comments Blood Pressure 104/79 06/30/2018 11:18 AM EST Pulse 70 06/30/2018 11:18 AM EST Temperature - - Respiratory Rate - - Oxygen Saturation 96% 06/30/2018 11:18 AM EST Inhaled Oxygen Concentration - - Weight 106.6 kg (235 lb) 06/30/2018 11:18 AM EST Height - - Body Mass Index 46.14 06/30/2018 12:00 AM EST documented in this encounter Progress Notes * Snuil Sparrow MD - 06/30/2018 11:30 AM EST INTRATHECAL PUMP REFILL PROCEDURE NOTE WITH REPROGRAMMING Primary Life Sciences Manager: Sunil Sparrow MD ?? Buildings And Grounds Superintendent: Ponce Becker MD ?? Reason for Reprogramming: refill ?? Diagnosis: postlaminectomy syndrome ?? Telemetry Pre-Refill Programming Reading: Drugs/Concentrations: Morphine - Preservative Free ??- ??10 mg/ml Daily Dose: 4.5 mg per day ?? Telemetry Post-Refill Programming Reading: Drugs/Concentrations: Morphine - Preservative Free ??- ??10 mg/ml Daily Dose: 4.5 mg per day Brand/Compound: Compound. ?? Pump Capacity: 40 mL ?? Computer predicted residual volume in pump: 4.5ml Measured residual volume in pump: 5ml ?? Medication or Dose Changes: no ?? Is dose change >30%? n/a ?? Is concentration of drug different? no ?? Empty syringe concentration verified by baggage security checker: yes ?? If concentration of drug is different, has a bridge bolus been programmed? n/a. ?? Has any program been used other than simple continuous or bridge bolus and simple continuous? no ?? Infusion Mode: simple continuous. ?? New Alarm Date: 09/22/18 ?? PROCEDURE: Risks and expected side effects were reviewed with patient and her voiced concerns addressed. The printed consent form was signed and witnessed. The following information was verified: ?? Patient Name on RX: yes ?? Drug Name on RX: yes ?? Drug concentration on syringe containing pump refill medication: yes ?? The pump was accessed via telemetry and the computer predicted residual volume was noted as per above. Then Chlorhexidine prep over the pump refill site was performed. Sterile drapes were applied as provided with the [employer] refill kit. A 22 gauge Moraes non-coring [...] instilled into the pump according to the supervisor advertising dispatch clerks's directions without difficulty. There was no evidence [...] will be arranged for refills as appropriate. ?? Patient is planning on having ventral hernia surgery on 07/12/18 and bariatric surgery in the near future. She is hopeful that this will allow her to decrease her pain medications. She is due to have anew pump placed in 14 months. Hopefully should be able to wean down and may be off the intrathecal opioids if not in 14 months that will be a good time to see what her abdominal wall looks like and where to place a new pump. Sunil Sparrow MD Pain Management Fellow [address] [address] / [facility] I was the attending physician supervising the resident in the above care and I was present with theresident for the entire procedure. PONCE BECKER MD documented in this encounter Plan of Treatment Upcoming Encounters Date Type Department Care Team (Latest Contact Info) Description 04/06/2024 11:30 AM EST Hospital Encounter [facility] [place] [address] Cadence Eric MD [facility] [place] [address] 04/06/2024 11:30 AM EST - 04/06/2024 12:50 PM EST Surgery [facility] [place] [address] Cadence Eric MD [facility] [place] [address] IMPLANT NEUROSTIMULATOR ELECTRODES, PERIPHERAL NERVE (WRVU 5.76) 04/14/2024 2:30 PM EST Office Visit [facility] [place] [address] Cadence Eric MD [facility] [place] [address] Scheduled Procedures Name Priority Associated Diagnoses Date/Ti [...] Associated Diagnosis Comments INTRATHECAL PUMP REFILL Routine 06/30/2018 documented in this encounter Results * INTRATHECAL PUMP REFILL (06/30/2018) Ponce Becker MD PROCEDURE/MINOR SURG ICAL ORDERABLES documented in this encounter Visit Diagnoses Diagnosis Postlaminectomy syndrome Postlaminectomy syndrome, unspecified region Saphenous neuralgia, right documented in this encounter Care Teams Support Coordinator Relationship Specialty Start Date End Date Bob Day MD [address] [place] [address] PCP - General Family Medicine 01/18/18 07/26/20 documented as of this encounter
--- OUTSIDE RECORDS SUMMARY | 2024-04-05 16:32 | XMS_ITS | Encounter Summary ---
Author Organization [facility] Address [facility]a [facility] [place] [address] Care Team Providers Care Assistant Statistician Name Role Phone Bob Day MD Primary Care Provider [phone] Reason for Referral * Diagnostic Test (Routine) - Closed Specialty Diagnoses / Procedures Referred By Contac t Referred To Contact Radiology Diagnoses Ventral hernia without obstruction or gangrene Procedures CT Abdomen & Pelvis w Contrast Izzy Blanco MD [facility] [place] [address] [facility] [place] [address] Referral ID Status Reason Start Date Expiration Date V isits Requested Visits Authorized [id number] Closed Specialty Service Requested 02/10/2018 02/10/2019 1 1 Reason for Visit * Diagnostic Test (Routine) - Closed Specialty Diagnoses / Procedures Referred By Contac t Referred To Contact Radiology Diagnoses Ventral hernia without obstruction or gangrene Procedures CT Abdomen & Pelvis w Contrast Izzy Blanco MD [facility] [place] [address] [facility] [place] [address] Referral ID Status Reason Start Date Expiration Date V isits Requested Visits Authorized [id number] Closed Specialty Service Requested 02/10/2018 02/10/2019 1 1 Encounter Details Date Type Department Care Team (Latest Contact Info) Description 02/24/2018 11:16 AM EDT - 02/24/2018 11:59 PM EDT Hospital Encounter CT Scan at [facility] [place] [address] Izzy Blanco MD [facility] [place] [address] Ventral hernia without obstruction or gangrene Discharge Disposition: Home Social History Tobacco Use [...] Release (E.C.) Take by mouth Daily. 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 42 mL 01/18/2018 04/12/2018 amitriptyline (ELAVIL) 75 mg Tablet 25 mg nightly. 0 09/26/201706/12 oxyCODONE (ROXICODONE) 10 mg Tablet TAKE 1 TABLET BY MOUTH THREE TIMES A DAY NEEDED 0 10/19/2017 07/15/2018 EPINEPHrine 1 mg/mL Kit Inject as directed as needed. 09/04/2021 oxyCODONE (OXYCONTIN) 20 mg tablet,oral only,ext.rel.12 hr Take 20 mg by mouth every 12 hours. 02/21/2020 acetaminophen (TYLENOL) 500 mg Tablet Take 2 tablets by mouth every 6 hours as needed for Pain. 10/20/2016 02/21/2020 fenofibrate (TRIGLIDE) 160 mg Tablet Take 160 mg by mouth nightly. 11/15/2015 07/25/2020 baclofen (LIORESAL) 20 mg Tablet as needed. 09/25/2015 06/30/2018 citalopram (CELEXA) 40 mg tablet Take 40 mg by mouth daily. 04/12/2018 levothyroxine (SYNTHROID) 100 mcg tablet 100 MCG = 1 Tablet(s), PO, Once daily 03/19/2010 07/25/2020 documented as of this encounter Plan of Treatment Upcoming Encounters Date Type Department Care Team (Latest Contact Info) Description 04/06/2024 11:30 AM EST Hospital Encounter [place] [address] Cadence Eric MD [facility] [place] [address] 04/06/2024 11:30 AM EST - 04/06/2024 12:50 PM EST Surgery [place] [address] Cadence Eric MD [facility] [place] [address] IMPLANT NEUROSTIMULATOR ELECTRODES, PERIPHERAL NERVE (WRVU 5.76) 04/14/2024 2:30 PM EST Office Visit [facility] [place] [address] Cadence Eric MD [facility] [place] [address] Scheduled Procedures Name Priority Associated Diagnoses Date/Ti [...] Name Priority Date/Time Associated Diagnosis Comments CT ABDOMEN AND PELVIS W CONTRAST Routine 02/24/2018 2:35 PM EDT Ventral hernia without obstruction or gangrene documented in this encounter Results * CT Abdomen & Pelvis w Contrast (02/24/2018 2:35 PM EDT) Anatomical Region Laterality Modality Abdomen, Pelvis Computed Tomogra phy Impressions 02/24/2018 4:37 PM EDT 1. ??Large ventral hernia defect as described above containing large bowel and mesentery with no evidence of strangulation or obstruction. 2. ??Mild common bile duct dilatation may represent postcholecystectomy ectasia versus obstruction; recommend correlation with liver function tests to assess for biliary obstruction. 3. ??Hepatic steatosis with borderline hepatomegaly. I have personally reviewed the image(s) and the residents interpretation and agree with the findings, Johnna Silverio at 02/24/2018 4:37 PM Narrative 02/24/2018 4:37 PM EDT EXAMINATION: ??CT ABDOMEN AND PELVIS W CONTRAST CLINICAL HISTORY: ??please assess abdominal wall for operative planning TECHNIQUE: Helical CT of the abdomen and pelvis was performed following the intravenous administration of contrast. 120 cc of Omnipaque 350 was given. ??Oral contrast was administered. COMPARISON: CT pelvis MSK 02/10/2018 FINDINGS: Lower chest: There is bibasilar patchy groundglass opacification secondary to atelectasis related to low lung volumes. No focal consolidations or pleural effusions. Liver: Borderline enlarged and diffusely low density (70 Hounsfield units). Normal contour. No lesions. Bile ducts: Common bile duct is ectatic and dilated to 13 mm which is mildly abnormal for a postcholecystectomy patient and age. No wall thickening. No intrahepatic ductal dilatation. No calcified stones are present. Gallbladder: Surgically absent. Pancreas: Normal attenuation without ductal dilatation. Spleen: Normal. Adrenals: Normal. Kidneys: Normal in size and enhance symmetrically. No focal lesions, collecting system dilatation, or calculi. Urinary Bladder: No focal wall thickening, or calculi within the bladder or proximal urethra. Reproductive organs: Normal for age. No adnexal masses. Bowel: No small bowel dilatation or wall thickening. The cecum is located in the right upper quadrant. The terminal ileum is normal. The appendix is not well visualized, however there is no pericecal inflammatory change to suggest appendicitis. There is redundancy of the colon. A portion of the colon herniates into a large midline ventral hernia, however there is no wall thickening, proximal dilatation or mucosal hyperenhancement to suggest strangulation. Peritoneum and mesentery: No ascites, free air, or loculated fluid collection. A portion of the mesentery herniates into a midline ventral hernia. No mesenteric fat stranding. Abdominal wall: A nerve stimulator is implanted within the right abdominal wall with lead entering the central canal and continuing above the visualized superior thoracic margin of this study. There is a midline supraumbilical ventral hernia with fascial defect measuring 4.6 cm. Hernia sac contains a loop of colon. Vasculature: No aneurysm. Lymph Nodes: No abnormally enlarged abdominal or pelvic lymph nodes. Osseous structures: Status post L5 laminectomy and L5-S1 noninstrumented posterior fusion. Right sacroiliac fusion hardware is present. No suspicious lytic or sclerotic lesions. Procedure Note Johnna Silverio MD - 02/24/2018 EXAMINATION: CT ABDOMEN AND PELVIS W CONTRAST CLINICAL HISTORY: please assess abdominal wall for operative planning TECHNIQUE: Helical CT of the abdomen and pelvis was performed followingthe intravenous administration of contrast. 120 cc of Omnipaque 350 was given.Oral contrast was administered. COMPARISON: CT pelvis MSK 02/10/2018 FINDINGS: Lower chest: There is bibasilar patchy groundglass opacification secondaryto atelectasis related to low lung volumes. No focal consolidations orpleural effusions. Liver: Borderline enlarged and diffusely low density (70 Hounsfieldunits). Normal contour. No lesions. Bile ducts: Common bile duct is ectatic and dilated to 13 mm which ismildly abnormal for a postcholecystectomy patient and age. No wall thickening.No intrahepatic ductal dilatation. No calcified stones are present. Gallbladder: Surgically absent. Pancreas: Normal attenuation without ductal dilatation. Spleen: Normal. Adrenals: Normal. Kidneys: Normal in size and enhance symmetrically. No focal lesions,collecting system dilatation, or calculi. Urinary Bladder: No focal wall thickening, or calculi within the bladderor proximal urethra. Reproductive organs: Normal for age. No adnexal masses. Bowel: No small bowel dilatation or wall thickening. The cecum is locatedin the right upper quadrant. The terminal ileum is normal. The appendix is notwell visualized, however there is no pericecal inflammatory change to suggest appendicitis. There is redundancy of the colon. A portion of the colonherniates into a large midline ventral hernia, however there is no wallthickening, proximal dilatation or mucosal hyperenhancement to suggeststrangulation. Peritoneum and mesentery: No ascites, free air, or loculated fluidcollection. A portion of the mesentery herniates into a midline ventral hernia. Nomesenteric fat stranding. Abdominal wall: A nerve stimulator is implanted within the right abdominalwall with lead entering the central canal and continuing above the visualized superior thoracic margin of this study. There is a midlinesupraumbilical ventral hernia with fascial defect measuring 4.6 cm. Hernia sac contains aloop of colon. Vasculature: No aneurysm. Lymph Nodes: No abnormally enlarged abdominal or pelvic lymph nodes. Osseous structures: Status post L5 laminectomy and L5-S1 noninstrumented posterior fusion. Right sacroiliac fusion hardware is present. Nosuspicious lytic or sclerotic lesions. IMPRESSION 1. Large ventral hernia defect as described above containing large boweland mesentery with no evidence of strangulation or obstruction. 2. Mild common bile duct dilatation may represent postcholecystectomyectasia versus obstruction; recommend correlation with liver function tests toassess for biliary obstruction. 3. Hepatic steatosis with borderline hepatomegaly. I have personally reviewed the image(s) and the residents interpretationand agree with the findings, Johnna Silverio at 02/24/2018 4:37 PM Izzy Blanco MD IMG CT ORDERABLES documented in this encounter Visit Diagnoses Diagnosis Ventral hernia without obstruction or gangrene Ventral hernia, unspecified, without mention of obstruction or gangrene Saphenous neuralgia, right documented in this encounter Administered Medications Inactive Administered Medications - up to 3 most recent administrations Medication Order MAR Action Action Date Dose Rate Site iohexol (OMNIPAQUE) 350 mg/mL solution 0-200 mL 0-200 mL, Intravenous, ONCE PRN, 1 dose, Starting on Thu02/24/18 at 1430, Until Thu02/24/18 at 1431, Per Protocol, Warning Vesicant/Irritant Medication , Radiology Contrast, Routine Given 02/24/2018 2:31 PM EDT 119 mLs documented in this encounter Care Teams Assistant Statistician Relationship Specialty Start Date End Date Bob Day MD [address] [id number] PCP - General Family Medicine 01/18/18 07/26/20 documented as of this encounter
--- OUTSIDE RECORDS SUMMARY | 2024-04-05 16:32 | XMS_ITS | Encounter Summary ---
Author Organization [facility] Address [facility] [place] [address] Care Team Providers Care Magnetometer Operator Name Role Phone Bob Day MD Primary Care Provider [phone] [phone] Encounter Details Date Type Department Care Team (Late st Contact Info) Description 12/09/2017 [facility] Conversion Results [address] [place] [phone] [facility] Conversion, Flowsheet Provider, Social History Tobacco [...] Sign Reading Time Taken Comments Blood Pressure 133/81 12/09/2017 12:00 AM EDT Sourced from [facility] Conversion Pulse - - Temperature - - Respiratory Rate - - Oxygen Saturation - - Inhaled Oxygen Concentration - - Weight 115.2 kg (254 lb) 12/09/2017 12: 00 AM EDT Sourced from [facility] Conversion Height 152 cm (4' 11.84) 12/09/2017 12 :00 AM EDT Sourced from [facility] Conversion Body Mass Index 49.87 12/09/2017 12:00 AM EDT documented in this encounter Plan of Treatment Upcoming Encounters Date Type Department Care Team (Latest Contact Info) Description 04/06/2024 11:30 AM [facility] Hospital Encounter [place]patient [place] [address] Cadence Eric MD [facility] [place] [address] 04/06/2024 11:30 AM EST - 04/06/2024 12:50 PM EST Surgery [facility]patient [place] [address] Cadence Eric MD [facility] [place] [address] IMPLANT NEUROSTIMULATOR ELECTRODES, PERIPHERAL NERVE (WRVU 5.76) 04/14/2024 2:30 PM EST Office Visit [facility] [place] [address] Cadence Eric MD [facility] [place] [address] Scheduled Procedures Name Priority Associated Diagnoses Date/Ti [...] on filedocumented in this encounter Care Teams Magnetometer Operator Relationship Specialty Start Date End Date Bob Day MD [address] [place] [address] PCP - General Family Medicine 01/18/18 07/26/20 documented as of this encounter
--- OUTSIDE RECORDS SUMMARY | 2024-04-05 16:32 | XMS_ITS | Encounter Summary ---
Author Organization [facility] Address [facility] [place] [address] Care Team Providers Care Cyber Forensic Specialist Name Role Phone Bob Day MD Primary Care Provider [phone] [phone] Reason for Visit * Reason Comments Follow-up Ventral Hernia Encounter Details Date Type Department Care Team (Late st Contact Info) Description 06/24/2018 1:20 PM EST Office [place] [address] Izzy Romero MD [facility] [place] [address] Incisional hernia, with obstruction, without gangrene; Morbid obesity with BMI of 50.0-59.9, adult Social History Tobacco Use Types Packs/Day Years [...] - Inhaled Oxygen Concentration - - Weight 108.1 kg (238 lb 6.4 oz) 019 12:58 PM EST Height 142.2 cm (4' 8) 06/24/2018 12:5 8 PM EST Body Mass Index 53.45 06/24/2018 12:58 PM EST documented in this encounter Progress Notes * Ry Crandall MD - 06/24/2018 1:20 PM EST Etelvina Cuadra is a 57 y.o. female referred by Bob Day MD for repeat evaluation of a incisional ventral hernia. She underwent lap merry some years ago and developed a fairly large incisional hernia in her epigastric supraumbilical port site. She was last seen a couple months ago with Dr. Romero. At that time her hernia was symptomatic but only mildly so. Since that time she has started to complain of frequent bouts of nausea and vomiting in the setting of pain around her hernia. She states at one point she had feculent emesis. Since that time she has started taking MiraLAX dailywhich has helped control her bowel movements and seems to alleviate her symptoms at least somewhat.Currently she denies nausea vomiting fevers chills. She does endorse pain around the hernia. She has been trying to lose weight however she needed to restart the weight and wellness program due to insurance changes. Past Medical History: Patient Active Problem List Diagnosis Code ??? CIS - Entered not Verified ??? Postlaminectomy syndrome M96.1 ??? CIS - Sciatica ??? Encounter for long-term opiate analgesic use Z79.891 ??? Cholecystitis K81.9 ??? Incisional hernia, with obstruction, without gangrene K43.0 ??? Morbid obesity with BMI of 50.0-59.9, adult E66.01, Z68.43 Past Surgical History: Procedure Laterality Date ??? BACK SURGERY ??? IMPLANT OR REPLACE DEVICE FOR INTRATHECAL INFUSION, SUBQ RESERVOIR ??? ORTHOPEDIC SURGERY ??? PRO COLONOSCOPY, BIOPSY 10/07/2011 COLONOSCOPY FLEXIBLE, WITH BX performed by NIKKI MAYORGA at [facility] ENDOSCOPY ??? PRO COLONOSCOPY, DIAGNOSTIC 09/23/2011 COLONOSCOPY, DIAGNOSTIC performed by NIKKI MAYORGA at [facility] ENDOSCOPY ??? PRO LAP, CHOLECYSTECTOMY/GRAPH N/A 10/18/2016 LAPAROSCOPIC CHOLECYSTECTOMY WITH CHOLANGIOGRAM (WRVU 11.47) performed by Tasia Umaña MD at [facility] MAIN OR Medications: Current Outpatient Medications: ??? nabumetone (RELAFEN) 500 mg Tablet, Take 500 mg by mouth., Disp: , Rfl: ??? polyethylene glycol (MIRALAX) 17 gram Powder in Packet, Take by mouth., Disp: , Rfl: ??? liothyronine (CYTOMEL) 25 mcg Tablet, Take 25 mcg by mouth., Disp: , Rfl: ??? citalopram (CELEXA) 20 mg Tablet, Take 10 mg by mouth daily., Disp: , Rfl: ??? morphine 100 % Powd 10 mg/mL, by Intrathecal route continuous., Disp: 42 mL, Rfl: 0 ??? FLUARIX QUAD 6616-1378, PF, 60 mcg (15 mcg x 4)/0.5 mL Syringe, inject 0.5 milliliter intramuscularly, Disp: , Rfl: 0 ??? oxyCODONE (ROXICODONE) 10 mg Tablet, TAKE 1 TABLET BY MOUTH THREE TIMES A DAY NEEDED, Disp: , Rfl: 0 ??? EPINEPHrine 1 mg/mL Kit, Inject as directed as needed., Disp: , Rfl: ??? oxyCODONE (OXYCONTIN) 20 mg tablet,oral only,ext.rel.12 hr, Take 20 mg by mouth every 12 hours., Disp: , Rfl: ??? acetaminophen (TYLENOL) 500 mg Tablet, Take 2 tablets by mouth every 6 hours as needed for Pain., Disp: , Rfl: ??? fenofibrate (TRIGLIDE) 160 mg Tablet, , Disp: , Rfl: ??? baclofen (LIORESAL) 20 mg Tablet, as needed., Disp: , Rfl: ??? levothyroxine (SYNTHROID) 100 mcg tablet, 100 MCG = 1 Tablet(s), PO, Once daily, Disp: , Rfl: ??? pantoprazole (PROTONIX) 40 mg Tablet, Delayed Release (E.C.), Take 1 tablet by mouth daily., Disp: 90 tablet, Rfl: 3 ??? amitriptyline (ELAVIL) 75 mg Tablet, 25 mg nightly. , Disp: , Rfl: 0 Allergies: Peanut; Peanut oil; Wheat; Wheat bran; Wheat flour; Wheat germ oil; Wheat starch; Canine protein containing products; Hydrocodone; Hydrocodone- acetaminophen; Hydrocodone-ibuprofen; Rice; Rofecoxib; Tetracycline; Tetracyclines; and Wool Family History: Family History Problem Relation Age of Onset ??? Coronary Artery Disease Father ??? Anesthesia Reaction Neg Hx Social History: reports that she quit smoking about 26 years ago. Her smoking use included cigarettes. She smoked 0.25 packs per day. She has never used smokeless tobacco. She reports that she does not drink alcoholor use drugs. Review of systems is negative for any unexplained weight loss or weight gain. She denies any cough,chest pain or shortness on breath on exertion. She has no fevers, chills or night sweats. She denies headaches, dizziness, weakness, numbness or ataxia. Bowel and bladder elimination is normal. All other system reviews are negative. PE: Wt & BMI By Encounter Date Office Visit from 06/24/2018 in General Surgery at [facility] Procedure visit from 04/12/2018 in Pain Management at [facility] Weight 108.1 kg (238 lb 6.4 oz) 1 06/24/2018 1258 112.9 kg (249 lb) 1 04/12/2018 1216 BMI 53.44 1 06/24/2018 1258 50.29 1 04/12/2018 1216 GEN: NAD CARD: appears well perfused RESP: normal respiratory effort , no audible wheezing SKIN : no rash ABD: Epigastric incisional hernia palpated difficult to define fascial edges given patient's body habitus. NEURO: GCS 15 EXT: no gross deformities PSYCH: normal affect and mood Assessment: 57 year old female with BMI 53 and with a increasingly symptomatic epigastric hernia. On the last CT scan 5 months ago there is transverse colon in the hernia which may be contributing tosome of her constipation issues. In addition she is endorsing a change in symptoms which might indicate there is now a small bowel component causing a partial obstruction with the hernia. Because of this we have recommended repair. We she was counseled heavily on the risk of recurrence given her current BMI, but due to the nature of the obstructive symptoms that she is experiencing we feel that arepair at this time is indicated. Patient agreed and requested we proceed with the operation. Consent was signed and all questions answered. Ry Crandall MD Attending addendum: I have seen and examined the patient. I agree with the events, physical exam findings and assessment/plan as outlined above. In brief, this is a 57 year old female with BMI 53 interested in bariatric surgery, however with anincreasingly symptomatic epigastric hernia, now causing intermittent partial obstructive symptoms. We had previously discussed deferring repair until after weight loss surgery, however given her current complaints we will plan to fix her hernia at her current weight. We spent the majority of this visit discussing the pros and cons of laparoscopic versus robotic versus open repair. The patient feels the robotic repair is preferable. We reviewed the nature of robotic hernia surgery and its risks, including very small likelihood of bleeding requiring transfusion, infection, bowel injury and needing to convert to an open procedure. We also discussed risks of postoperative neuralgias (which tend to resolve with time in most patients) and hernia recurrence. She understands that her recurrence and complication risk is higher given her weight. Overall, she seems well informed and wishes to proceed. IZZY ROMERO MD documented in this encounter Plan of Treatment Upcoming Encounters Date Type Department Care Team (Latest Contact Info) Description 04/06/2024 11:30 AM EST Hospital Encounter Out[place] [address] Cadence Eric MD [facility] [place] [address] 04/06/2024 11:30 AM EST - 04/06/2024 12:50 PM EST Surgery Outpatient [place] [address] Cadence Eric MD [facility] [place] [address] IMPLANT NEUROSTIMULATOR ELECTRODES, PERIPHERAL NERVE (WRVU 5.76) 04/14/2024 2:30 PM EST Office Visit [place] [address] Cadence Eric MD [facility] [place] [address] Scheduled Procedures Name Priority Associated Diagnoses Date/Ti me IMPLANT NEUROSTIMULATOR ELECTRODES, PERIPHERAL NERVE (WRVU 5.76) Yes Saphenous neuralgia, right 04/06/2024 11:30 AM EST IMPLANT NEUROSTIMULATOR ELECTRODES, PERIPHERAL NERVE (WRVU 5.76) Saphenous neuralgia, 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
--- OUTSIDE RECORDS SUMMARY | 2024-04-05 16:32 | XMS_ITS | Encounter Summary ---
Author Organization [facility] [place] [address] Care Team Providers Care Flight Engineer Instructor Name Role Phone Bob Day MD Primary Care Provider [phone] Encounter Details Date Type Department Care Team (Late st Contact Info) Description 04/08/2018 Telephone [place] [phone] Melani Ardon, RN Social History Tobacco Use [...] Telephone Encounter - Melani Ardon RN - 04/08/2018 12:08 PM EST Pt called our office today requesting an appointment with Dr. Blanco in clinic tomorrow. Dr. Blanco's washery boss transferred the call to me to discuss further. Pt was last seen by Dr. Blanco on 02/24/18 with the following from Dr. Blanco's note: Impression: Ventral hernia containing unobstructed colon the setting of BMI ~50. She is interested in bariatric surgery and has begun her requirements. We again reviewed that it would be best to fix the hernia after she is able to lose a significant amount of weight and she is on board with that plan. She will continue to take Miralax to loosen her stools. She will follow up with me once she is further along with her bariatric requirements. She would likely be best served by a sleeve over a bypass, however will discuss further with her at a future visit. Pt reports that last Thursday evening she had really bad bloating. She realized that she had not moved her bowels for 1/5 weeks at that point and had spaced it and not been taking her miralax. Shestates that she could not go to [facility] because of the pain she was having. She states that she sipped on miralax all day and started moving her bowels. She was vomiting brown liquid on Thursdayand having massive pain in her abdomen. She reports that from to Thursday she could only drink water. On Thursday, she was able to eat a little bit of food without pain. She states that she is taking her miralax, but when she eats she gets pain if she gets too full. She is now experiencing the bloating, severe abdominal pain and no bowel movement since last . She is starting to feel nauseous as well. Plan: I explained that she needs to go be evaluated as soon as possible to make sure that her issues (bloat, pain, no BM, nausea) are not caused by the hernia incarcerating. She states she is coming down here for an appointment tomorrow and would like to see Dr. Blanco in clinic. I explained that Dr. Blanco is not here at [facility] tomorrow, and I explained that she should not wait that long in case it is an incarceration, the longer she goes without it being fixed, the worse off she will be. Pt verbalizes her understanding and agrees with the plan. documented in this encounter Plan of Treatment Upcoming Encounters Date Type Department Care Team (Latest Contact Info) Description 04/06/2024 11:30 AM EST Hospital Encounter Outpatient Surgery Center [facility] [address] Cadence Eric MD [facility] [place] [address] 04/06/2024 11:30 AM EST - 04/06/2024 12:50 PM EST Surgery Outpatient [place] [address] Cadence Eric MD [facility] [place] [address] IMPLANT NEUROSTIMULATOR ELECTRODES, PERIPHERAL NERVE (WRVU 5.76) 04/14/2024 2:30 PM EST Office Visit [facility] [place] [address] Cadence Eric MD [facility] [place] [address] Scheduled Procedures Name Priority Associated Diagnoses Date/Ti [...] on filedocumented in this encounter Care Teams Flight Engineer Instructor Relationship Specialty Start Date End Date Bob Day MD [address] [place] [address] PCP - General Family Medicine 01/18/18 07/26/20 documented as of this encounter
--- OUTSIDE RECORDS SUMMARY | 2024-04-05 16:32 | XMS_ITS | Encounter Summary ---
Author Organization [facility] Address [facility] [place] [address] Care Team Providers Care Python Developer Name Role Phone Bob Day MD Primary Care Provider [phone] Encounter Details Date Type Department Care Team (Late st Contact Info) Description 04/09/2018 Orders [place] [address] Niesha Ayala, MACIEL Social History Tobacco Use [...] AM EST Hospital Encounter [place] [address] Cadence Eric MD [facility] [place] [address] 04/06/2024 11:30 AM EST - 04/06/2024 12:50 PM EST Surgery [place] [address] Cadence Eric MD [facility] [place] [address] IMPLANT NEUROSTIMULATOR ELECTRODES, PERIPHERAL NERVE (WRVU 5.76) 04/14/2024 2:30 PM EST Office Visit [place] [address] Cadence Eric MD [facility] [place] [address] Scheduled Procedures Name Priority Associated Diagnoses Date/Ti [...] on filedocumented in this encounter Care Teams Python Developer Relationship Specialty Start Date End Date Bob Day MD [address] [place] [address] PCP - General Family Medicine 01/18/18 07/26/20 documented as of this encounter
--- OUTSIDE RECORDS SUMMARY | 2024-04-05 16:32 | XMS_ITS | Encounter Summary ---
Author Organization [facility] [place] [address] Care Team Providers Care Manager Immunology Name Role Phone Bob Day MD Primary Care Provider [phone] Encounter Details Date Type Department Care Team (Late st Contact Info) Description 04/09/2018 Telephone [place] [phone] Etelvina Bishop RN Social History Tobacco Use [...] Telephone Encounter - Etelvina Bishop RN - 04/09/2018 8:13 AM EST Etelvina called and said she went to the Doctor's yesterday and they said she has Pnuemonia and that she shouldn't come for her appointment today it would be better if she came on Thursday. Said she spoke with someone yesterday about this. documented in this encounter Plan of Treatment Upcoming Encounters Date Type Department Care Team (Latest Contact Info) Description 04/06/2024 11:30 AM EST Hospital Encounter [place] [address] Cadence Eric MD [facility] [place] [address] 04/06/2024 11:30 AM EST - 04/06/2024 12:50 PM EST Surgery [place] [address] Cadence Eric MD [facility] [place] [address] IMPLANT NEUROSTIMULATOR ELECTRODES, PERIPHERAL NERVE (WRVU 5.76) 04/14/2024 2:30 PM EST Office Visit [facility] [place] [address] Cadence Eric MD [facility] [place] [address] Scheduled Procedures Name Priority Associated Diagnoses Date/Ti [...] filedocumented in this encounter Care Teams Manager Immunology Relationship Specialty Start Date End Date Bob Day MD [address] [place] [address] PCP - General Family Medicine 01/18/18 07/26/20 documented as of this encounter
--- OUTSIDE RECORDS SUMMARY | 2024-04-05 16:32 | XMS_ITS | Encounter Summary ---
Author Organization [facility] Address [facility] [place] [address] Care Team Providers Care Balance Staff Staker Name Role Phone Bob Day MD Primary Care Provider [phone] Encounter Details Date Type Department Care Team (Late st Contact Info) Description 06/07/2018 Telephone [place] [phone] Melani Ardon, RN Social History Tobacco Use [...] Telephone Encounter - Melani Ardon RN - 06/07/2018 2:04 PM EST Nursing Triage - Phone Note DATE OF CALL: 06/07/2018 TIME OF CALL: 9:47AM PATIENT DATE OF : 1960 CALLER: Pt to the general surgery clinic nurses line Learning Needs Assessment Reviewed: Yes SUBJECTIVE - I am constipated. I have a large hernia, I am overweight, and I have had severe vomiting and pain. I have been taking miralax for 3 days and I am wondering if I should take it more thanonce a day PERTINENT PAST MEDICAL HISTORY: Pt was last seen by Dr. Blanco on 02/24/18, for her ventral hernia. She has a large ventral hernia defect as described above containing large bowel and mesentery with no evidence of strangulation or obstruction. She also has chronic constipation, for which she takes stool softeners and occasionally miralax. She has chronic pain on oral medication as well as a morphine pump, and a BMI at 49.8. Ventral hernia containing unobstructed colon the setting of BMI ~50. She is interested in bariatricsurgery and has begun her requirements. We again reviewed that it would be best to fix the hernia after she is able to lose a significant amount of weight and she is on board with that plan. She willcontinue to take Miralax to loosen her stools. She will follow up with me once she is further alongwith her bariatric requirements. NURSING OBJECTIVE/ASSESSMENT: Pt called about the above. She states that on and Thursday, she was violently sick and had severe pain with her constipation. She states that it calmed down and since Thursday has been getting better each day. She states that she has been taking miralax daily for the last 3 days. She is still constipated. She is passing a small amount of hard stool here and there, but her last real BM was at least a week ago. She is passing a little bit of flatus. She statesthat she took the miralax in 4 oz of water earlier and has had about 17 oz of water after that (it is now 1 pm) INTERVENTION/PLAN/ FOLLOW UP: I spoke with the patient. I instructed her to do a mini bowel prep today. I instructed her to add 5 doses of the miralax in 30 oz of fluid and then push fluids for therest of the day. Once she has things under better control, she should take miralax twice a day until she follows up with Dr. Blanco. If she develops loose stool, then she should go back to once a d ay. If she starts to have severe pain, violent vomiting and no BM again, I told her she needs to goto her local ED as soon as possible to be assessed as this could be because her hernia is incarcerating/strangulating. Pt verbalizes her understanding and agrees with the plan. If your symptoms do not improve, or they worsen, report to your local emergency department. CALLER AGREES: Yes PCP: Bob Day MD documented in this encounter Plan of Treatment Upcoming Encounters Date Type Department Care Team (Latest Contact Info) Description 04/06/2024 11:30 AM EST Hospital Encounter [place]patient [place] [address] Cadence Eric MD [facility] [place] [address] 04/06/2024 11:30 AM EST - 04/06/2024 12:50 PM EST Surgery [place]patient [place] [address] Cadence Eric MD [facility] [place] [address] IMPLANT NEUROSTIMULATOR ELECTRODES, PERIPHERAL NERVE (WRVU 5.76) 04/14/2024 2:30 PM EST Office Visit [place] [address] Cadence Eric MD [facility] [place] [address] Scheduled Procedures Name Priority Associated Diagnoses Date/Ti [...] filedocumented in this encounter Care Teams Balance Staff Staker Relationship Specialty Start Date End Date Bob Day MD [address] [place] [address] PCP - General Family Medicine 01/18/18 07/26/20 documented as of this encounter
--- OUTSIDE RECORDS SUMMARY | 2024-04-05 16:32 | XMS_ITS | Encounter Summary ---
Author Organization [facility] Address [facility] [place] [address] Care Team Providers Care Cribber Name Role Phone Bob Day MD Primary Care Provider [phone] Encounter Details Date Type Department Care Team (Late st Contact Info) Description 02/11/2018 Notes [place] [address] Woody Hernandez MD [facility] [place] [address] Social History Tobacco Use Types Packs/Day Years [...] as of this encounter Progress Notes * Woody Hernandez MD - 02/11/2018 4:[address] pelvis reviewed. No osteolysis. No clear fusion. Would not recommend a revision of SI joint fusion. Discussed with patient by phone. She still has significant pain. She wishes to f/u with Dr. Becker. I discussed that there may not be much he can do given what has already been tried. Woody Hernandez MD MS Supervisor Sewer Maintenance - Orthopedic Spine Surgery / [facility] [place] Chiropractic Neurologist - Department of Orthopedic Surgery / [employer] Educational Administrator - [facility] 02/11/2018 documented in this encounter Plan of Treatment Upcoming Encounters Date Type Department Care Team (Latest Contact Info) Description 04/06/2024 11:30 AM EST Hospital Encounter Outpatient [place] [address] Cadence Eric MD [facility] [place] [address] 04/06/2024 11:30 AM EST - 04/06/2024 12:50 PM EST Surgery Outpatient [place] [address] Cadence Eric MD [facility] [place] [address] IMPLANT NEUROSTIMULATOR ELECTRODES, PERIPHERAL NERVE (WRVU 5.76) 04/14/2024 2:30 PM EST Office Visit [place] [address] Cadence Eric MD [facility] [place] [address] Scheduled Procedures Name Priority Associated Diagnoses Date/Ti [...] on filedocumented in this encounter Care Teams Cribber Relationship Specialty Start Date End Date Bob Day MD [address] [place] [address] PCP - General Family Medicine 01/18/18 07/26/20 documented as of this encounter
--- OUTSIDE RECORDS SUMMARY | 2024-04-05 16:32 | XMS_ITS | Encounter Summary ---
[place] [address] Care Team Providers Care Agronomy Supervisor Name Role Phone Bob Day MD Primary Care Provider [phone] Encounter Details Date Type Department Care Team (Late st Contact Info) Description 06/30/2018 [facility] Conversion Results [address] [place] [phone] [facility] Conversion, Flowsheet Provider, Social History [...] Sign Reading Time Taken Comments Blood Pressure 131/75 06/30/2018 12:00 AM EST Sourced from [facility] Conversion Pulse - - Temperature - - Respiratory Rate - - Oxygen Saturation - - Inhaled Oxygen Concentration - - Weight 108 kg (238 lb) 06/30/2018 12:00 AM EST Sourced from [facility] Conversion Height 152 cm (4' 11.84) 06/30/2018 12 :00 AM EST Sourced from [facility] Conversion Body Mass Index 46.73 06/30/2018 12:00 AM EST documented in this encounter Plan of Treatment Upcoming Encounters Date Type Department Care Team (Latest Contact Info) Description 04/06/2024 11:30 AM EST Hospital Encounter Outpatient [place] [address] Cadence Eric MD [facility] [place] [address] 04/06/2024 11:30 AM EST - 04/06/2024 12:50 PM EST Surgery Outpatient [place] [address] Cadence Eric MD [facility] [place] [address] IMPLANT NEUROSTIMULATOR ELECTRODES, PERIPHERAL NERVE (WRVU 5.76) 04/14/2024 2:30 PM EST Office Visit [place] [address] Cadence Eric MD [facility] [place] [address] Scheduled Procedures Name Priority Associated Diagnoses Date/Ti [...] on filedocumented in this encounter Care Teams Agronomy Supervisor Relationship Specialty Start Date End Date Bob Day MD [address] [facility] [place] [address] PCP - General Family Medicine 01/18/18 07/26/20 documented as of this encounter
--- OUTSIDE RECORDS SUMMARY | 2024-04-05 16:32 | XMS_ITS | Encounter Summary ---
Author Organization [facility] [place] [address] Care Team Providers Care Scraper Hand Name Role Phone Brisa Christine MD Primary Care Provider Encounter Details Date Type Department Care Team (Late st Contact Info) Description 12/22/2017 Notes Only [place] [phone] Lois Rebolledo Social History Tobacco Use Types Packs/Day Years [...] as of this encounter Progress Notes * Lois Rebolledo - 12/22/2017 11:07 AM EDT Patient called on 12-22-17 to confirm 01-21-18 appointments had been rescheduled to 01-18-18 to maintain coordination between pain and spine. Patient acknowledged change. documented in this encounter Plan of Treatment Upcoming Encounters Date Type Department Care Team (Latest Contact Info) Description 04/06/2024 11:30 AM EST Hospital Encounter Outpatient [place] [phone] Cadence Erci MD [facility] [place] [address] 04/06/2024 11:30 AM EST - 04/06/2024 12:50 PM EST Surgery Outpatient [place] [address] Cadence Eric MD [facility] [place] [address] IMPLANT NEUROSTIMULATOR ELECTRODES, PERIPHERAL NERVE (WRVU 5.76) 04/14/2024 2:30 PM EST Office Visit [facility] [place] [address] Cadence Eric MD [facility] [place] [address] Scheduled Procedures Name Priority Associated Diagnoses Date/Ti [...] on filedocumented in this encounter Care Teams Scraper Hand Relationship Specialty Start Date End Date Brisa Christine MD PCP - General Internal Medicine 06/05/17 01/17/18 documented as of this encounter
--- OUTSIDE RECORDS SUMMARY | 2024-04-05 16:32 | XMS_ITS | Encounter Summary ---
Author Organization [facility] [place] [address] Care Team Providers Care Professor Of Biostatistics Name Role Phone Winter Day MD Primary Care Provider [phone] Encounter Details Date Type Department Care Team (Latest Contact Info) Description 01/18/2018 11:15 AM EDT - 01/18/2018 11:59 PM EDT Hospital Encounter [place] [address] Winter Day MD [address] [place] [address] Abdominal pain, unspecified abdominal location Discharge Disposition: Home Social History Tobacco Use [...] Delayed Release (E.C.) Take by mouth Daily. 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 42 mL 01/18/2018 04/12/2018 amitriptyline (ELAVIL) 75 mg Tablet 25 mg nightly. 0 09/26/2017 06/30/2018 oxyCODONE (ROXICODONE) 10 mg Tablet TAKE 1 [...] (Latest Contact Info) Description 04/06/2024 11:30 AM [facility] Hospital Encounter [place] [address] Cadence Eric MD [facility] [place] [address] 04/06/2024 11:30 AM EST - 04/06/2024 12:50 PM EST Surgery [place] [address] Cadence Eric MD [facility] [place] [address] IMPLANT NEUROSTIMULATOR ELECTRODES, PERIPHERAL NERVE (WRVU 5.76) 04/14/2024 2:30 PM EST Office Visit [facility] and Sp[facility] at [facility] [place] [address] Cadence Eric MD [facility] [place] [address] Scheduled Procedures Name Priority Associated Diagnoses Date/Ti [...] Procedure Name Priority Date/Time Associated Diagnosis Comments US ABDOMEN LIMITED Routine 01/18/2018 11 :42 AM EDT Abdominal pain, unspecified abdominal location documented in this encounter Results * US Abdomen Limited (01/18/2018 11:42 AM EDT) Anatomical Region Laterality Modality Abdomen Ultrasound 01/18/2018 11:4 0 AM EDT Impressions 01/18/2018 12:29 PM EDT Ventral hernia above umbilicus. which worsens with Valsalva. ??Hernia contains bowel. ??Approximately 3cm neck. Spontaneously reduces. ? Shannan Ramírez MD Electronically Signed Final Report ?? 01/18/2018 12:29 pm Narrative 01/18/2018 12:29 PM EDT Abdominal ?(Signed Final 01/18/2018 12:29 pm) PATIENT INFO: ID #: ? [id number] ?: ??[birth year] (57 yrs) Name: ? RAFAEL WILLOUGHBY ? Visit Date: 01/18/2018 11:40 am PERFORMED BY: Performed By: ? Radha Ward RDMS Attending: ?Shannan Ramírez MD Associate: ?Renetta Franks MD Referred By: ?WINTER DAY Location: ? [place] INDICATIONS: ??ABDOMINAL PAIN, POST ??CHOLECYSTECTOMY LAST YEAR AND ??JACY UMBILICAL PAIN, LOOK FOR ??UMBILICAL HERNIA Procedure Note Shannan Ramírez MD - 01/18/2018 Abdominal (Signed Final 01/18/2018 12:29 pm) PATIENT INFO: ID #: [id number] : [birth year] (57 yrs) Name: RAFAEL WILLOUGHBY Visit Date: 01/18/2018 11:40 am PERFORMED BY: Performed By: Radha Ward RDMS Attending: Shannan Ramírez MD Associate: Renetta Franks MD Referred By: WINTER DAY Location: [place] INDICATIONS: ABDOMINAL PAIN, POST CHOLECYSTECTOMY LAST YEAR AND JACY UMBILICAL PAIN, LOOK FOR UMBILICAL HERNIA IMPRESSION Ventral hernia above umbilicus. which worsens with Valsalva. Hernia contains bowel. Approximately 3cm neck. Spontaneously reduces. Shannan Ramírez MD Electronically Signed Final Report 01/18/2018 12:29 pm Winter Day MD IMG US GEN ORDERA BLES documented in this encounter Visit Diagnoses Diagnosis Abdominal pain, unspecified abdominal location Saphenous neuralgia, right documented in this encounter Care Teams Professor Of Biostatistics Relationship Specialty Start Date End Date Winter Day MD [address] [place] [address] PCP - General Family Medicine 01/18/18 07/26/20 documented as of this encounter
--- OUTSIDE RECORDS SUMMARY | 2024-04-05 16:32 | XMS_ITS | Encounter Summary ---
Author Organization [facility] Address [facility] [place] [address] Care Team Providers Care Oven Technician Name Role Phone Bob Day MD Primary Care Provider [phone] Reason for Visit * Reason Comments Pain Management Encounter Details Date Type Department Care Team (Latest Contact Info) Description 04/12/2018 12:30 PM EST Procedure [place] [address] Karl Becker MD [facility] [place] [place] [address] Post laminectomy syndrome (Primary Dx); Postlaminectomy syndrome Social History Tobacco Use Types [...] Reading Time Taken Comments Blood Pressure 137/75 04/12/2018 12:16 PM EST Pulse 86 04/12/2018 12:16 PM EST Temperature - - Respiratory Rate - - Oxygen Saturation 96% 04/12/2018 12:16 PM EST Inhaled Oxygen Concentration - - Weight 112.9 kg (249 lb) 04/12/2018 12:16 PM EST Height 149.9 cm (4' 11) 04/12/2018 12:16 PM EST Body Mass Index 50.29 04/12/2018 12:16 PM EST documented in this encounter Progress Notes * Karl Becker MD - 04/12/2018 12:30 PM EST ??see procedure note documented in this encounter Procedure Notes * Karl Becker MD - 04/12/2018 12:30 PM ESTAssociated Order(s): INTRATHECAL PUMP REFILL Pre-Procedure Diagnose(s): Post laminectomy syndrome INTRATHECAL PUMP REFILL PROCEDURE NOTE WITH REPROGRAMMING Primary Layout Technician: Karl Becker MD Reason for Reprogramming: refill Diagnosis: postlaminectomy syn. Telemetry Pre-Refill Programming Reading: Drugs/Concentrations: Morphine - Preservative Free ??- ??10 mg/ml Daily Dose: 4.5 mg per day ?? Telemetry Post-Refill Programming Reading: Drugs/Concentrations: Morphine - Preservative Free ??- ??10 mg/ml Daily Dose: 4.5 mg per day Brand/Compound: Compound. ?? Pump Capacity: 40 mL Computer predicted residual volume in pump: 2.2ml Measured residual volume in pump: 5ml Medication or Dose Changes: no Is dose change >30%? n/a Is concentration of drug different? no Empty syringe concentration verified by construction checker: yes If concentration of drug is different, has a bridge bolus been programmed? n/a. Has any program been used other than simple continuous or bridge bolus and simple continuous? no Infusion Mode: simple continuous. New Alarm Date: 07/05/18 PROCEDURE: Risks and expected side effects were [...] drapes were applied as provided with the [employer] refill kit. A 22 gauge Moraes non-coring [...] instilled into the pump according to the cmv driver's directions without difficulty. There was no evidence [...] be arranged for refills as appropriate. Patient is planning on having bariatric surgery. She is hopeful that this will allow her to decrease her pain medications. She is due to have a new pump placed in 18 months. Hopefully should be able to wean down and may be off the intrathecal opioids if not in 18 months that will be a good time to see what her abdominal wall looks like and where to place a new pump. There was predicted 2.2 mL's with 5 mL's withdrawn. We will keep track of discrepancy and see if it increases which might indicateneed to exchange pump sooner. documented in this encounter Plan of Treatment Upcoming Encounters Date Type Department Care Team (Latest Contact Info) Description 04/06/2024 11:30 AM EST Hospital Encounter Outpatient [place] [address] Cadence Eric MD [facility] [place] [address] 04/06/2024 11:30 AM EST - 04/06/2024 12:50 PM EST Surgery Outpatient [place] [address] Cadence Eric MD [facility] [place] [address] IMPLANT NEUROSTIMULATOR ELECTRODES, PERIPHERAL NERVE (WRVU 5.76) 04/14/2024 2:30 PM EST Office Visit [facility] [place] [address] Cadence Eric MD [facility] [place] [address] Scheduled Procedures Name Priority Associated Diagnoses Date/Ti [...] Associated Diagnosis Comments INTRATHECAL PUMP REFILL Routine 04/12/2018 12:30 PM EST Post laminectomy syndrome documented in this encounter Results * INTRATHECAL PUMP REFILL (04/12/2018 12:30 PM EST) Narrative Stacia AndresCastro M - 04/12/2018 12:30 PM EST Karl Becker MD ? 04/12/2018 ??1:17 PM INTRATHECAL PUMP REFILL PROCEDURE NOTE WITH REPROGRAMMING Primary Layout Technician: Karl Becker MD Reason for Reprogramming: refill Diagnosis: postlaminectomy syn. ??Telemetry Pre-Refill Programming Reading: Drugs/Concentrations: Morphine - Preservative Free ??- ??10 mg/ml Daily Dose: 4.5 mg per day ?? Telemetry Post-Refill Programming Reading: Drugs/Concentrations: Morphine - Preservative Free ??- ??10 mg/ml Daily Dose: 4.5 mg per day Brand/Compound: Compound. ?? Pump Capacity: 40 mL Computer predicted residual volume in pump: 2.2ml Measured residual volume in pump: 5ml Medication or Dose Changes: no Is dose change >30%? n/a Is concentration of drug different? ??no Empty syringe concentration verified by construction checker: yes If concentration of drug is different, has a bridge bolus been programmed? n/a. Has any program been used other than simple continuous or bridge bolus and simple continuous? no Infusion Mode: simple continuous. New ??Alarm Date: 07/05/18 PROCEDURE: Risks and expected side effects were reviewed with patient and her voiced concerns addressed. ??The printed consent form was [...] drapes were applied as provided with the ??[employer] refill kit. A 22 gauge Moraes non-coring [...] instilled into the pump according to the cmv driver's directions without difficulty. There was no evidence [...] be arranged for refills as appropriate. Patient is planning on having bariatric surgery. ??She is hopeful that this will allow her to decrease her pain medications. ??She is due to have a new pump placed in 18 months. ??Hopefully should be able to wean down and may be off the intrathecal opioids if not in 18 months that will be a good time to see what her abdominal wall looks like and where to place a new pump. ??There was predicted 2.2 mL's with 5 mL's withdrawn. ??We will keep track of discrepancy and see if it increases which might indicate need to exchange pump sooner. Procedure Note Karl Becker MD - 04/12/2018 12:30 PM EST INTRATHECAL PUMP REFILL PROCEDURE NOTE WITH REPROGRAMMING Primary Layout Technician: Karl Becker MD Reason for Reprogramming: refill Diagnosis: postlaminectomy syn. Telemetry Pre-Refill Programming Reading: Drugs/Concentrations: Morphine - Preservative Free ??- ??10 mg/ml Daily Dose: 4.5 mg per day ?? Telemetry Post-Refill Programming Reading: Drugs/Concentrations: Morphine - Preservative Free ??- ??10 mg/ml Daily Dose: 4.5 mg per day Brand/Compound: Compound. ?? Pump Capacity: 40 mL Computer predicted residual volume in pump: 2.2ml Measured residual volume in pump: 5ml Medication or Dose Changes: no Is dose change >30%? n/a Is concentration of drug different? no Empty syringe concentration verified by construction checker: yes If concentration of drug is different, has a bridge bolus been programmed?n/a. Has any program been used other than simple continuous or bridge bolus andsimple continuous? no Infusion Mode: simple continuous. New Alarm Date: 07/05/18 PROCEDURE: Risks and expected side effects were reviewed with patient and her voicedconcerns addressed. The printed consent form was signed and witnessed.The following information was verified: ?? Patient Name on RX: yes ?? Drug Name on RX:yes ?? Drug concentration on syringe containing pump refill medication: yes The pump was accessed via telemetry and the computer predicted residualvolume was noted as per above. Then Chlorhexidine prep over the pumprefill site was performed. Sterile drapes were applied as provided withthe [employer] refill kit. A 22 gauge Moraes non-coring needle suppliedwith the refill kit was inserted through the refill-template into thecentral refill port of the pump. The pump was aspirated for the abovemeasured residual volume. This residual volume was discarded. Freshlyprepared solution of the drug(s) and concentration(s) as noted above wasused to refill the pump 0. 5 ml of solution was instilled and easilywithdrawn, no more and no less than 0.5 ml. A total of 40 ml of solutionwas instilled into the pump according to the cmv driver's directionswithout difficulty. There was no evidence of over pressurization at theconclusion of the filling process. The Moraes needle was withdrawn and aBand-Aid was applied. The pump was then re-accessed via telemetry andreprogrammed to indicate the refill volume of 40 ml. The unused portion ofthe medication was discarded along with the old drug aspirated. Battery alarms reviewed and were appropriately enabled and in workingorder. Patient tolerated the procedure well and [facility] Follow-up appointments will be arranged for refills asappropriate. Patient is planning on having bariatric surgery. She is hopeful that thiswill allow her to decrease her pain medications. She is due to have a newpump placed in 18 months. Hopefully should be able to wean down and maybe off the intrathecal opioids if not in 18 months that will be a goodtime to see what her abdominal wall looks like and where to place a newpump. There was predicted 2.2 mL's with 5 mL's withdrawn. We will keeptrack of discrepancy and see if it increases which might indicate need toexchange pump sooner. Karl Becker MD PROCEDURE/MINOR SURG ICAL ORDERABLES documented in this encounter Visit Diagnoses Diagnosis Post laminectomy syndrome- Primary Postlaminectomy syndrome, unspecified region Postlaminectomy syndrome Postlaminectomy syndrome, unspecified region Saphenous neuralgia, right documented in this encounter Administered Medications Inactive Administered Medications - up to 3 most recent administrations Medication Order MAR Action Action Date Dose Rate Site pain clinic compounded medication 1 each 1 each, Intrathecal, ONCE, 1 dose, On 04/12/18 at 1330, Routine, Medication Name and Dose: morphine 10mg/ml Given 04/12/2018 1:11 PM EST 1 each documented in this encounter Care Teams Oven Technician Relationship Specialty Start Date End Date Bob Day MD [address] [place] [address] PCP - General Family Medicine 01/18/18 07/26/20 documented as of this encounter
--- OUTSIDE RECORDS SUMMARY | 2024-04-05 16:32 | XMS_ITS | Encounter Summary ---
Author Organization [facility] Address [facility] [place] [address] Care Team Providers Care Stereotyper Name Role Phone Bob Day MD Primary Care Provider [phone] Reason for Visit * Reason Comments Pain Management Encounter Details Date Type Department Care Team (Latest Contact Info) Description 01/18/2018 1:00 PM EDT Procedure [place] [address] Ponce Becker MD [facility] [place] [address] Postlaminectomy syndrome (Primary Dx); Post laminectomy syndrome [...] Sign Reading Time Taken Comments Blood Pressure 125/60 01/18/2018 2:49 PM EDT Pulse 100 01/18/2018 2:49 PM EDT Temperature - - Respiratory Rate - - Oxygen Saturation 98% 01/18/2018 2:17 PM EDT Inhaled Oxygen Concentration - - Weight 117.9 kg (260 lb) 01/18/2018 1:08 PM EDT Height 142.2 cm (4' 8) 01/18/2018 1:08 PM EDT Body Mass Index 58.29 01/18/2018 1:08 PM EDT documented in this encounter Progress Notes * Prince Godfrey MD - 01/18/2018 1:00 PM EDT PREPROCEDURE HISTORY AND PHYSICAL Date of Visit: January 18, 2018 Chief Complaint: Back pain HPI: Harmony Cuadra is a 57 y.o. female who presents today for IT pump refill with a diagnosis of 1. Postlaminectomy syndrome with symptoms of back pain. The history is obtained from the patient, and I have reviewed medical records provided by the referring physician and located in the electronic medical record to fill in gaps in the patient's recollection of events, treatments and outcomes. LOCATION: across the lower back down to the right hip. PAIN LEVEL With activity 02/17 PAST MEDICAL HISTORY: Past Medical History: Diagnosis [...] WITH BX performed by NIKKI MAYORGA at [facility] ENDOSCOPY ??? PRO COLONOSCOPY, DIAGNOSTIC 09/23/2011 COLONOSCOPY, DIAGNOSTIC performed by NIKKI MAYORGA at [facility] ENDOSCOPY ??? PRO LAP, CHOLECYSTECTOMY/GRAPH N/A 10/18/2016 LAPAROSCOPIC CHOLECYSTECTOMY WITH CHOLANGIOGRAM (WRVU 11.47) performed by Tasia Umaña MD at [facility] MAIN OR There are no past surgical contraindications to this procedure ALLERGIES: Peanut; Peanut oil; Wheat bran; Wheat flour; Wheat germ oil; Wheat starch; Canine protein containing products; Cis free text allergy; Hydrocodone; Hydrocodone-acetaminophen; Rice; Rofecoxib; Tetracycline; Tetracyclines; and Wheat There are no allergic contraindications to this procedure. MEDICATIONS: Medications 01/18/18 1313 Medication Sig Taking? amitriptyline (ELAVIL) 75 mg Tablet nightly. Yes oxyCODONE (ROXICODONE) 10 mg Tablet TAKE 1 TABLET BY MOUTH THREE TIMES A DAY NEEDED Yes morphine 100 % Powd 10 mg/mL by Intrathecal route continuous. Yes EPINEPHrine 1 mg/mL Kit Inject as directed as needed. Yes oxyCODONE (OXYCONTIN) 20 mg tablet,oral only,ext.rel.12 hr Take 20 mg by mouth every 12 hours. Yes acetaminophen (TYLENOL) 500 mg Tablet Take 2 tablets by mouth every 6 hours as needed for Pain. Yes fenofibrate (TRIGLIDE) 160 mg Tablet Yes baclofen (LIORESAL) 20 mg Tablet as needed. Yes citalopram (CELEXA) 40 mg tablet Take 40 mg by mouth daily. Yes levothyroxine (SYNTHROID) 100 mcg tablet 100 MCG = 1 Tablet(s), PO, Once daily Yes There are no medication contraindications to this procedure. FAMILY HISTORY: Family History Problem Relation Age of Onset ??? Coronary Artery Disease Father ??? Anesthesia Reaction Neg Hx SOCIAL HISTORY: Social History Social History ??? Marital status: Spouse name: N/A ??? Number of children: N/A ??? Years of education: N/A Occupational History ??? Not on file. Social History Main Topics ??? Smoking status: Former Smoker Packs/day: 0.25 Types: Cigarettes Quit date: 09/23/1991 ??? Smokeless tobacco: Never Used ??? Alcohol use No ??? Drug use: No ??? Sexual activity: Not on file Other Topics Concern ??? Not on file Social History Narrative There are no social history contraindications to this procedure. ROS: Review of Systems Constitutional: Negative for fever, chills, or recent infection. Respiratory: Negative for shortness of breath. Cardiovascular: Negative for chest pain. Musculoskeletal: Positive for back pain. Psychiatric/Behavioral: Negative for agitation and behavioral problems. PHYSICAL EXAM: BP (!) 155/91 Pulse (!) 102 Ht 142.2 cm (4' 8) Wt 117.9 kg (260 lb) SpO2 97% BMI 58.29 kg/m2 Physical Exam Constitutional: She appears well-developed and well-nourished. No distress. Cardiovascular: Normal heart rate. Pulmonary/Chest: Effort normal and breath sounds normal. Skin: She is not diaphoretic. This is no rash, apparent infection, or other abnormality to the areaof the proposed injection. There are no physical examination findings which would preclude this procedure. ASSESSMENT: 1. Postlaminectomy syndrome PLAN: Proceed with pump refill as planned. Urine drug screen ordered today Patient to be seen in Pain Clinic by Dr. Hernandez from [facility] Thank you for the opportunity to participate in Etelvina Cuadra's care. Please feel free to contact mewith any questions. Sincerely, Prince Godfrey MD Pain Medicine Fellow documented in this encounter Procedure Notes * Prince Godfrey MD - 01/18/2018 1:00 PM EDTAssociated Order(s): INTRATHECAL PUMP REFILL Pre-Procedure Diagnose(s): Postlaminectomy syndrome INTRATHECAL PUMP REFILL PROCEDURE NOTE WITH REPROGRAMMING Primary Freelance Art Director: Prince Godfrey MD Chaser Tar: Ponce Becker MD ?? Reason for Reprogramming: Refill ?? Diagnosis: Postlaminectomy syndrome. ?? Concomitant Medical Problems: ?? Telemetry Pre-Refill Programming Reading: Drugs/Concentrations: Morphine - Preservative Free - 10 mg/ml Daily Dose: 4.5 mg per day ?? Telemetry Post-Refill Programming Reading: Drugs/Concentrations: Morphine - Preservative Free - 10 mg/ml Daily Dose: 4.5 mg per day Brand/Compound: Compound. ?? Pump Capacity: 40 mL ?? Computer predicted residual volume in pump: 7.1 mL ?? Measured residual volume in pump: 9.0 mL ?? Medication or Dose Changes: no ?? Is dose change >30%? n/a ?? Is concentration of drug different? no ?? Empty syringe concentration verified by cashier or checker stock clerk: yes ?? If concentration of drug is different, has a bridge bolus been programmed? no, n/a. ?? Has any program been used other than simple continuous or bridge bolus and simple continuous? no ?? Infusion Mode: simple continuous. ?? New Alarm Date: 04/12/2018 ?? PROCEDURE: Risks and expected side effects were reviewed with patient and her voiced concerns addressed. The printed consent form was signed and witnessed. The following information was verified: ?? Patient Name on RX: yes ?? Drug Name on RX: yes ?? Drug concentration on syringe containing pump refill medication: yes ?? Fluoroscopy was not used during today's pump refill. ?? The pump was accessed via telemetry [...] instilled into the pump according to the fire hydrant operator's directions without difficulty. There was no evidence of over pressurization at the conclusion of the filling process. The Moraes needlewas withdrawn and a Band- Aid was applied. The pump was then re-accessed via telemetry and reprogrammed to indicate the refill volume of 40 ml. The unused portion of the medication was discarded alongwith the old drug aspirated. ?? Battery alarms reviewed and were appropriately enabled and in working order. ?? Patient tolerated the procedure well and was discharged from the [facility]. Follow-up appointments will be arranged for refills as appropriate. ?? Prince Godfrey MD Pain Medicine Fellow ?? This procedure was done under the direct supervision of Dr Becker, attending physician. ?? I was the attending physician supervising the resident in the above care and I was present with theresident for the entire procedure. PONCE BECKER MD documented in this encounter Plan of Treatment Upcoming Encounters Date Type Department Care Team (Latest Contact Info) Description 04/06/2024 11:30 AM [facility] Hospital Encounter [place]patient [place] [address] Cadence Eric MD [facility] [place] [address] 04/06/2024 11:30 AM EST - 04/06/2024 12:50 PM EST Surgery Outpatient [place] [address] Cadence Eric MD [facility] [place] [address] IMPLANT NEUROSTIMULATOR ELECTRODES, PERIPHERAL NERVE (WRVU 5.76) 04/14/2024 2:30 PM EST Office Visit [facility] [place] [phone] Cadence Eric MD [facility] [place] [address] Scheduled Procedures Name Priority Associated Diagnoses Date/Ti [...] Associated Diagnosis Comments INTRATHECAL PUMP REFILL Routine 01/19/2018 1:37 PM EDT Postlaminectomy syndrome documented in this encounter Results * INTRATHECAL PUMP REFILL (01/19/2018 1:37 PM EDT) Narrative Ponce Becker MD - 01/19/2018 1:37 PM EDT Ponce Becker MD ? 01/19/2018 ??1:37 PM INTRATHECAL PUMP REFILL PROCEDURE NOTE WITH REPROGRAMMING Primary Freelance Art Director: Prince Godfrey MD Chaser Tar: Ponce Becker MD ?? Reason for Reprogramming: Refill ?? Diagnosis: Postlaminectomy syndrome. ?? Concomitant Medical Problems: ?? Telemetry Pre-Refill Programming Reading: Drugs/Concentrations: Morphine - Preservative Free ??- ??10 mg/ml Daily Dose: 4.5 mg per day ?? Telemetry Post-Refill Programming Reading: Drugs/Concentrations: Morphine - Preservative Free ??- ??10 mg/ml Daily Dose: 4.5 mg per day Brand/Compound: Compound. ?? Pump Capacity: 40 mL ?? Computer predicted residual volume in pump: 7.1 mL ?? Measured residual volume in pump: 9.0 mL ?? Medication or Dose Changes: no ?? Is dose change >30%? n/a ?? Is concentration of drug different? ??no ?? Empty syringe concentration verified by cashier or checker stock clerk: yes ?? If concentration of drug is different, has a bridge bolus been programmed? no, n/a. ?? Has any program been used other than simple continuous or bridge bolus and simple continuous? no ?? Infusion Mode: simple continuous. ?? New ??Alarm Date: 04/12/2018 ?? PROCEDURE: Risks and expected side effects were reviewed with patient and her voiced concerns addressed. ??The printed consent form was signed and witnessed. ??The following information was verified: ? Patient Name on RX: yes ?? Drug Name on RX: yes ?? Drug concentration on syringe containing pump refill medication: yes ?? Fluoroscopy was not used during today's pump refill. ?? The pump was accessed via telemetry and the computer predicted residual volume was noted as per above. Then Chlorhexidine prep over the pump refill site was performed. ??Sterile drapes were applied as provided with the ??bop.fm refill kit. A 22 gauge Moraes non-coring [...] instilled into the pump according to the fire hydrant operator's directions without difficulty. There was no [...] be arranged for refills as appropriate. ?? Prince Godfrey MD Pain Medicine Fellow ?? This procedure was done under the direct supervision of Dr Becker, attending physician. ?? I was the attending physician supervising the resident in the above care and I was present with the resident for the entire procedure. PONCE BECKER MD Ponce Becker MD PROCEDURE/MINOR SURG ICAL ORDERABLES documented in this encounter Visit Diagnoses Diagnosis Postlaminectomy syndrome- Primary Postlaminectomy syndrome, unspecified region Post laminectomy syndrome Postlaminectomy syndrome, unspecified region Saphenous neuralgia, right documented in this encounter Administered Medications Inactive Administered Medications - up to 3 most recent administrations Medication Order MAR Action Action Date Dose Rate Site pain clinic compounded medication 1 each 1 each, Intrathecal, ONCE, 1 dose, On 01/18/18 at 1345, Routine, Medication Name and Dose: Morphine sulfate, 10mg/mL Given 01/18/2018 2:29 PM EDT 1 each documented in this encounter Care Teams Stereotyper Relationship Specialty Start Date End Date Bob Day MD [address] [place] [address] PCP - General Family Medicine 01/18/18 07/26/20 documented as of this encounter
--- OUTSIDE RECORDS SUMMARY | 2024-04-05 16:32 | XMS_ITS | Encounter Summary ---
Author Organization [facility] [place] [address] Care Team Providers Care Sales Service Coordinator Name Role Phone Bob Day MD Primary Care Provider [phone] Encounter Details Date Type Department Care Team (Latest Contact Info) Description 06/30/2018 10:15 AM EST - 06/30/2018 11:59 PM [facility] Hospital Encounter Mammography/[place] [address] Bob Day MD [address] [place] [address] Encounter for screening mammogram for breast cancer Discharge Disposition: Home Social History Tobacco Use [...] continuous. 42 mL 04/12/2018 09/15/2018 FLUARIX QUAD [id number], PF, 60 mcg (15 mcg x 4)/0.5 mL Syringe inject 0.5 milliliter intramuscularly 0 02/12/2018 02/09/2019 oxyCODONE (ROXICODONE) 10 mg Tablet TAKE 1 [...] AM EST Hospital Encounter Outpatient [place] [address] Cadence Eric MD [facility] [place] [address] 04/06/2024 11:30 AM EST - 04/06/2024 12:50 PM EST Surgery Outpatient [place] [phone] Cadence Eric MD [facility] [place] [address] IMPLANT NEUROSTIMULATOR ELECTRODES, PERIPHERAL NERVE (WRVU 5.76) 04/14/2024 2:30 PM EST Office Visit [facility] [place] [phone] Cadence Eric MD [facility] [place] [address] Scheduled Procedures Name Priority Associated Diagnoses Date/Ti [...] Procedure Name Priority Date/Time Associated Diagnosis Comments MAMMO SCREENING CAD AND ISAAC BILATERAL Routine 06/30/2018 10:44 AM EST Encounter for screening mammogram for breast cancer documented in this encounter Results * Mammo Screening Cad and Isaac Bilateral [...] Bob Day MD IMG MAMMO ORDERAB LES documented in this encounter Visit Diagnoses Diagnosis Encounter for screening mammogram for breast cancer Saphenous neuralgia, right documented in this encounter Care Teams Sales Service Coordinator Relationship Specialty Start Date End Date Bob Day MD [address] [place] [address] PCP - General Family Medicine 01/18/18 07/26/20 documented as of this encounter
--- OUTSIDE RECORDS SUMMARY | 2024-04-05 16:32 | XMS_ITS | Encounter Summary ---
Author Organization [facility] Address [place] [id number] Care Team Providers Care Merchandise Flow Associate Name Role Phone Bob Day MD Primary Care Provider [phone] Reason for Referral * Diagnostic Test (Routine) - Closed Specialty Diagnoses / Procedures Referred By Contac t Referred To Contact Radiology Diagnoses Fusion of sacral region of spine Procedures CT Pelvis MSK (Bones Joints Muscles)WO Contrast Woody Hernandez MD [facility] [place] [address] [facility] [place] [address] Referral ID Status Reason Start Date Expiration Date V isits Requested Visits Authorized [id number] Closed Specialty Service Requested 01/18/2018 03/18/2018 1 1 Reason for Visit * Consultation (Routine) - Closed Specialty Diagnoses / Procedures Referred By Contac t Referred To Contact Orthopaedics Diagnoses Postlaminectomy syndrome Karl Becker MD [facility] [place] [address] Woody Hernandez MD [facility] [place] [address] Referral ID Status Reason Start Date Expiration Date V isits Requested Visits Authorized [id number] Closed Consult, Test & Treat 11/10/2017 11/10/2018 1 1 Encounter Details Date Type Department Care Team (Late st Contact Info) Description 01/18/2018 2:00 PM EDT Office [place] [address] Woody Hernandez MD [facility] [place] [id number] Fusion of sacral region of spine; Postlaminectomy syndrome Social History Tobacco Use Types [...] Progress Notes * Woody Hernandez MD - 01/18/2018 2:00 PM EDT Images from the original note were not included. Spine Center @ [facility] Woody Hernandez MD, MS. Director Karl Becker MD [facility] [place] [address] Bob Day MD [address] [place] [phone] Dear Colleagues, I had the pleasure of seeing this patient at the [facility] for surgical evaluation. Chief complaint: Right posterior back pain that wraps around to her lateral aspect of her pelvis. No groin pain. Diagnosis: 1. Status post L5-S1 posterior uninstrumented fusion with iliac crest bone graft on the right side by Dr. Neville Arreguin in 2003. 2. SI joint fusion by Dr. Franco 2006 without complication. No relief of symptoms. 3. Patient of Dr. Becker with pain pump. Duration of symptoms: Chronic. She reports that the pain in her right side of her low back as well as into her top of her iliac crest started with her first surgery in 2003 and she thinks is related to her iliac crest. She reports that the pain was present before the SI joint fusion. Was not help with SI joint injections. It has persisted since the SI joint fusion with no break. Progressive and getting worse with walking. Prior treatments: As above. She has been evaluated by a spine surgeon in [facility]. The patient was not recommended to have any further treatment. Prognostic factors BMI 47.18 multiple comorbidities. Imaging: There are prior images from 2016 of her lumbar spine which is solid fusion mass. This is across the L5-S1. There are recent films from October 2017 that include her pelvis as well as hips. AP image of her pelvis shows no change of her SI joint fusion from prior images. There is no gross looseloosening present. Physical examination: Alert and oriented female. Difficulty walking. Antalgic gait. No pain with internal rotation of her hips. Well-healed incisions. Neurologically intact in her bilateral lower extremities hip flexors quads anterior tib gastroc and EHL. Sensation grossly intact to light touch. Summary and plan: This is a patient with persistent chronic right-sided low back pain that goes in the iliac crest. The only question is whether there is any ostial lysis around the implants. Whethersolid fusion of the SI joint. Request authorization for CT of her pelvis without contrast to specifically evaluate the right SI fusion and hardware. If that appears solid there is no osteolysis do not have her follow-up with Dr. Becker for possible diagnostic and therapeutic injections. All questions were answered. More than 50% of more than 40 minutes were spent on counseling specifically concerning prior surgeries and work-up reasons to obtain the CT scan and recommendations depending on those results. Sincerely, Woody Hernandez MD MS Iron Cutter - Orthopedic Spine Surgery / Spine Center Crm Functional Analyst - Department of Orthopedic Surgery / Academics and Research Rough Rounder - [facility] 01/19/2018 Spine Center Response Trends Patient-reported scores: No flowsheet data found. documented in this encounter Plan of Treatment Upcoming Encounters Date Type Department Care Team (Latest Contact Info) Description 04/06/2024 11:30 AM EST Hospital Encounter Outpatient [place] [address] Cadence Eric MD [facility] [place] [address] 04/06/2024 11:30 AM EST - 04/06/2024 12:50 PM EST Surgery Outpatient [place] [address] Cadence Eric MD [facility] [place] [address] IMPLANT NEUROSTIMULATOR ELECTRODES, PERIPHERAL NERVE (WRVU 5.76) 04/14/2024 2:30 PM EST Office Visit Pain [place] [address] Cadence Eric MD [facility] [place] [address] Scheduled Procedures Name Priority Associated Diagnoses Date/Ti [...] Procedure Name Priority Date/Time Associated Diagnosis Comments RAPID DRUG SCREEN, COMPLIANCE MONITORING Routine 01/18/2018 2:10 PM EDT Postlaminectomy syndrome DRUGS OF ABUSE COMPLIANCE MONITORING PANEL, URINE Routine 01/18/2018 2:10 PM EDT Postlaminectomy syndrome TARGETED OPIOID PANEL, COMPLIANCE MONITORING Routine 01/18/2018 2:10 PM EDT Postlaminectomy syndrome U TRICYCLICS CONFIRMATION Routine 01/18/2018 2:10 PM EDT documented in this encounter Results * CT Pelvis MSK (Bones Joints Muscles)WO Contrast (02/10/2018 7:33 AM EDT) Anatomical Region Laterality Modality Pelvis Computed Tomogra phy Impressions 02/10/2018 8:29 AM EDT While there is no discernible osteolysis, I also do not appreciate significant solid bony fusion across the right sacroiliac joint. Narrative 02/10/2018 8:29 AM EDT EXAMINATION: CT PELVIS MSK (BONES JOINTS MUSCLES) WO CONTRAST CLINICAL HISTORY: Status post right sacroiliac joint fusion TECHNIQUE: CT scan of the pelvis was performed without intravenous contrast including thin-slice axial images in a bone algorithm with coronal and sagittal reformats. COMPARISON: Attention is also directed to the lumbosacral spine radiographs dated 11/22/2015 and the pelvic and right hip radiographs dated 11/06/2017 FINDINGS: Fusion hardware is seen traversing the right sacroiliac joint. While there is no discernible osteolysis, I also do not appreciate significant solid bony fusion across the right sacroiliac joint. There is degenerative arthropathy at the bilateral sacroiliac joints There was prior L5-S1 noninstrumented posterior fusion with solid fusion mass seen at L5-S1. An electronic device compatible with a pulse generator is partly imaged within the subcutaneous fat right lower abdominal/pelvic wall. There is a ventral hernia containing nonobstructed loops of small bowel. Procedure Note Zehra Peters MD - 02/10/2018 EXAMINATION: CT PELVIS MSK (BONES JOINTS MUSCLES) WO CONTRAST CLINICAL HISTORY: Status post right sacroiliac joint fusion TECHNIQUE: CT scan of the pelvis was performed without intravenous contrastincluding thin-slice axial images in a bone algorithm with coronal and sagittalreformats. COMPARISON: Attention is also directed to the lumbosacral spine radiographs date11/22/2015 and the pelvic and right hip radiographs dated 11/06/2017 FINDINGS: Fusion hardware is seen traversing the right sacroiliac joint. While thereis no discernible osteolysis, I also do not appreciate significant solid bonyfusion across the right sacroiliac joint. There is degenerative arthropathy at the bilateral sacroiliac joints There was prior L5-S1 noninstrumented posterior fusion with solid fusionmass seen at L5-S1. An electronic device compatible with a pulse generator is partly imagedwithin the subcutaneous fat right lower abdominal/pelvic wall. There is a ventral hernia containing nonobstructed loops of small bowel. IMPRESSION While there is no discernible osteolysis, I also do not appreciatesignificant solid bony fusion across the right sacroiliac joint. Woody Hernandez MD IMG CT ORDERABLES * (ABNORMAL) U Tricyclics Confirmation (01/18/2018 2:10 PM EDT) Tricyclics Conf, Urine FLEXITEST 4(A) [facility] Comment: FLEXITEST 4 ANTIDEPRESSANT PANEL U (QL) AMITRYPTYLINE ? * Positive NORTRIPTYLINE ? Negative IMIPRAMINE ?Negative DESIPRAMINE ? Negative DOXEPIN ? Negative CLOMIPRAMINE ?Negative FLUOXETINE ?Negative ?Reference Range: No Compound Detected This test was developed and its analytical performance characteristics have been determined by [facility] [place], [place]. It has not been cleared or approved by the U.S. Food and Drug Administration. This assay has been validated pursuant to the CLIA regulations and is used for clinical purposes. Test Performed by [facility], [facility] [place], [address] [place], [place] Bryan Benavides M.D., Ph.D., Director of Laboratories , CLIA [id number] Urine specimen (specimen) 01/18/2018 2:10 PM EDT 01/19/2018 1:24 PM EDT Narrative Resulting Agency Comment Spec In Lab Prince Godfrey MD LAB SEND OUT ORDERAB LES [facility] [place] [address] * (ABNORMAL) Targeted Opioid Panel, Compliance Monitoring (01/18/2018 2:10 PM EDT) Targeted Opioid Panel, Urine (MAY) Test ?Result ? Flag ??Unit ?? RefValue ------- Targeted Opioid Screen, U ??Codeine ? Not Detected ? ng/mL ??Cutoff: 25 ?Tylenol 3 ??Xckhepr-0-ptwa-g lucuronide ?Not Detected ? ng/mL ??Cutoff: 100 ?Metabolite of codeine ??Morphine ?Present ? @ ?ng/mL ??Cutoff: 25 ?Vivian Hannah, MS Contin; Also a minor metabolite (10%) of ?codeine and can be seen in low concentrations (<2,000 ?ng/mL) with poppy seed ingestion. ??Cipdsbfx-7-kbon- glucuronide ? Present ? @ ?ng/mL ??Cutoff: 100 ?Metabolite of morphine ??6-monoacetylmorp cesar ?Not Detected ? ng/mL ??Cutoff: 25 ?Metabolite of heroin ??Hydrocodone ? Not Detected ? ng/mL ??Cutoff: 25 ?Lortab, [place], Vicodin; Also a very minor metabolite of ?codeine and impurity (<1%) of oxycodone. ??Norhydrocodone ?Not Detected ? ng/mL ??Cutoff: 25 ?Metabolite of hydrocodone ??Dihydrocodeine ?Not Detected ? ng/mL ??Cutoff: 25 ?Metabolite of hydrocodone ??Hydromorphone ? Not Detected ? ng/mL ??Cutoff: 25 ?Dilaudid, Exalgo; Also a metabolite of hydrocodone and a ?minor (<5%) metabolite of morphine. ??Hydromorphone-3- beta-glucuronide ?Not Detected ? ng/mL ??Cutoff: 100 ?Metabolite of hydromorphone ??Oxycodone ? Present ? @ ?ng/mL ??Cutoff: 25 ?Endocet, Percocet, Oxycontin ??Noroxycodone ?Present ? @ ?ng/mL ??Cutoff: 25 ?Metabolite of oxycodone ??Oxymorphone ? Present ? @ ?ng/mL ??Cutoff: 25 ?Numorphan, Opana; Also a metabolite of oxycodone. ??Iebsmlcjsah-0-br ta-glucuronide ?Present ? @ ?ng/mL ??Cutoff: 100 ?Metabolite of oxymorphone ??Noroxymorphone ?Present ? @ ?ng/mL ??Cutoff: 25 ?Metabolite of oxymorphone ??Fentanyl ?Not Detected ? ng/mL ??Cutoff: 2 ?Actiq, Duragesic, Fentora ??Norfentanyl ? Not Detected ? ng/mL ??Cutoff: 2 ?Metabolite of fentanyl ??Meperidine ?Not Detected ? ng/mL ??Cutoff: 25 ?Demerol ??Normeperidine ? Not Detected ? ng/mL ??Cutoff: 25 ?Metabolite of meperidine ??Naloxone ?Not Detected ? ng/mL ??Cutoff: 25 ?Narcan ??Obbhwzjo-0-glxx- glucuronide ? Not Detected ? ng/mL ??Cutoff: 100 ?Metabolite of naloxone ??Methadone ? Not Detected ? ng/mL ??Cutoff: 25 ?Dolophine ??EDDP ?Not Detected ? ng/mL ??Cutoff: 25 ?Metabolite of methadone ??Propoxyphene ?Not Detected ? ng/mL ??Cutoff: 25 ?Darvon, Darvocet ??Norpropoxyphene ? Not Detected ? ng/mL ??Cutoff: 25 ?Metabolite of propoxyphene ??Tramadol ?Not Detected ? ng/mL ??Cutoff: 25 ?Tradol, Ultram, Ultracet ??O-desmethyltrama dol ? Not Detected ? ng/mL ??Cutoff: 25 ?Metabolite of tramadol ??Tapentadol ?Not Detected ? ng/mL ??Cutoff: 25 ?Nucynta ??N-desmethyltapen tadol ? Not Detected ? ng/mL ??Cutoff: 50 ?Metabolite of tapentadol ??Tapentadol-beta- glucuronide ? Not Detected ? ng/mL ??Cutoff: 100 ?Metabolite of tapentadol ??Buprenorphine ? Not Detected ? ng/mL ??Cutoff: 5 ?Buprenex, Suboxone ??Norbuprenorphine ?Not Detected ? ng/mL ??Cutoff: 5 ?Metabolite of buprenorphine ??Norbuprenorphine glucuronide ?Not Detected ? ng/mL ??Cutoff: 20 ?Metabolite of buprenorphine ??Opioid Interpretation ? SEE COMMENTS ?Test detected the presence of ??both morphine and its ?metabolite (iyrvedbm-7-atkm-g lucuronide). Suspect use of ?morphine within the past three days. Alternatively, these ?results could also be suggestive of heroin use. Low levels ?of morphine can also be seen following poppy seed ?ingestion. Test detected the presence of oxycodone and ?several metabolites (noroxycodone, oxymorphone, ?noroxymorphone, and frgdpsahxjl-4-myce -glucuronide). ?Suspect use of oxycodone or possibly oxycodone and ?oxymorphone within the past three days. ? ---ADDITIONAL INFORMATION------- ?This test was developed and its performance characteristics ?determined by [facility] in a manner consistent with CLIA ?requirements. This test has not been cleared or approved by ?the U.S. Food and Drug Administration. ?Test Performed by: ?[facility] ?[address] [place] [address](A) [facility] Urine specimen (specimen) 01/18/2018 2:10 PM EDT 01/18/2018 4:12 PM EDT Narrative Resulting Agency Comment Spec In Lab Prince Godfrey MD URINE ORDERABLES [facility] [address] [place] [address] * (ABNORMAL) Rapid Drug Screen, Compliance Monitoring (01/18/2018 2:10 PM EDT) Barbiturates Screen, Urine None Detected None Detected [facility] Comment: The barbiturate screen detects barbiturates at concentrations >200 ng/mL. Note: Not all barbiturates cross-react equally with antibody used in this screen. A ? Presumptive Positive? result indicates that the screening result was positive but has not yet been confirmed by a highly-specific method. As with any screen, occasional false positive results from cross-reacting substances may occur. Not for Medico-Legal Purposes. Benzodiazepines Screen, Urine None Detected None Detected [facility] Comment: The benzodiazepines screen detects benzodiazepines at concentrations >100 ng/mL. Not all benzodiazepines cross-react equally with antibody used in this screen. Due to the low dosage of clonazepam, false negatives may be obtained due to low concentration of clonazepam metabolites. A ? Presumptive Positive? result indicates that the screening result was positive but has not yet been confirmed by a highly-specific method. As with any screen, occasional false positive results from cross-reacting substances may occur. Not for Medico-Legal Purposes. Cocaine Screen, Urine None Detected None Detected [facility] Comment: The cocaine metabolites screen detects benzoylecgonine (Cocaine Metabolite) at concentrations >150 ng/mL. A ? Presumptive Positive? result indicates that the screening result was positive but has not yet been confirmed by a highly-specific method. As with any screen, occasional false positive results from cross-reacting substances may occur. Not for Medico-Legal Purposes. Cannabinoid Screen, Urine None Detected None Detected [facility] Comment: The marijuana metabolites screen detects the THC metabolite (95-zgf-4-carboxy-delta 9-THC) at concentrations >20 ng/mL. A ? Presumptive Positive? result indicates that the screening result was positive but has not yet been confirmed by a highly-specific method. As with any screen, occasional false positive results from cross-reacting substances may occur. Not for Medico-Legal Purposes. Tricyclics Screen, Urine Presumptive Pos(A) None Detected [facility] Comment: The tricyclics screen detects tricyclic antidepressants at concentrations >150 ng/mL. Not all tricyclics cross-react equally with the antibody used in this screen. A ? Presumptive Positive? result indicates that the screening result was positive but has not yet been confirmed by a highly-specific method. As with any screen, occasional false positive results from cross-reacting substances may occur. Not for Medico-Legal Purposes. Ethanol Screen, Urine None Detected None Detected [facility] Comment:This urine ethanol a ssay detects ethanol at concentrations >/= 100 mg/L. Amphetamines Screen, Urine None Detected None Detected [facility] Comment: The amphetamine screen detects d-amphetamine and d-methamphetamine at concentrations >300 ng/mL. A ? Presumptive Positive? result indicates that the screening result was positive but has not yet been confirmed by a highly-specific method. As with any screen, occasional false positive results from cross-reacting substances may occur. Not for Medico-Legal Purposes. Adulterants Screen, Urine None Detected None Detected [facility] Comment: No adulteration or dilution of this urine sample was detected. All urine samples submitted for urine drugs of abuse analysis are tested for creatinine concentration, pH, and for the presence of oxidants, nitrites, and chromate. Urine specimen (specimen) 01/18/2018 2:10 PM EDT 01/18/2018 3:45 PM EDT Narrative Resulting Agency Comment Spec In Lab Prince [place] [address] documented in this encounter Visit Diagnoses Diagnosis Fusion of sacral region of spine Postlaminectomy syndrome Postlaminectomy syndrome, unspecified region Fusion of sacral region of spine Saphenous neuralgia, right documented in this encounter Care Teams Merchandise Flow Associate Relationship Specialty Start Date End Date Bob Day MD [address] [place] [address] PCP - General Family Medicine 01/18/18 07/26/20 documented as of this encounter
--- OUTSIDE RECORDS SUMMARY | 2024-04-05 16:32 | XMS_ITS | Encounter Summary ---
Author Organization [facility] Address [facility] [place] [address] Care Team Providers Care Furnace Builder Name Role Phone Bob Day MD Primary Care Provider [phone] Encounter Details Date Type Department Care Team (Late st Contact Info) Description 01/20/2018 Abstract Radiology and Cardiology Results [address] [place] [address] [facility] Conversion, Results Provider, Social History Tobacco [...] AM EST Hospital Encounter Outpatient [place] [phone] Cadence Eric MD [facility] [place] [address] 04/06/2024 11:30 AM EST - 04/06/2024 12:50 PM EST Surgery Outpatient [place] [phone] Cadence Eric MD [facility] [place] [address] IMPLANT NEUROSTIMULATOR ELECTRODES, PERIPHERAL NERVE (WRVU 5.76) 04/14/2024 2:30 PM EST Office Visit [facility] and Sp[facility] Center at [facility] [place] [address] Cadence Eric MD [facility] [place] [address] Scheduled Procedures Name Priority Associated Diagnoses Date/Ti [...] Priority Date/Time Associated Diagnosis Comments TSH Routine 01/20/2018 12:46 PM EDT LIPID PANEL (REFLEX DIRECT LDL) Routine 01/20/2018 12:46 PM EDT COMPREHENSIVE METABOLIC PANEL Routine 01/20/2018 12:46 PM EDT documented in this encounter Results * (ABNORMAL) Lipid Panel (Reflex Direct LDL) (01/20/2018 12:46 PM EDT) Lipid Interpretation See Note(Exte rnal Lab) [facility] CONVERSION LDL Cholesterol 79(Court Specialist al Lab) mg/dL [facility] CONVERSION HDL Cholesterol 46(Court Specialist al Lab) mg/dL [facility] CONVERSION Cholesterol/HDL Ratio 3.2(Exter nal Lab) ratio [facility] CONVERSION Cholesterol, Total 146(Exter nal Lab) mg/dL [facility] CONVERSION Triglyceride 105(Exter nal Lab) mg/dL [facility] CONVERSION 01/20/2018 12:4 6 PM EDT Results Provider [facility] Conversion MD OCTAVIO GODINEZ ORDERABLES [facility] CONVERSION * (ABNORMAL) TSH (01/20/2018 12:46 PM EDT) Thyroid Stimulating Hormone 1.76(Exte rnal Lab) 0.270 - 4.200 uIU/mL [facility] CONVERSION 01/20/2018 12:4 6 PM EDT Results Provider Nlh Conversion MD OCTAVIO GODINEZ ORDERABLES [facility] CONVERSION * (ABNORMAL) Comprehensive metabolic panel (non-fasting) (01/20/2018 12:46 PM EDT) Chloride 98(Court Specialist al Lab) 98 - 107 mmol/L [facility] CONVERSION Calcium 9.9(Exter nal Lab) 8.5 - 10.5 mg/dL [facility] CONVERSION Blood Urea Nitrogen 9(Externa l Lab) 8 - 18 mg/dL [facility] CONVERSION eGFR 82(Court Specialist al Lab) >=60 mL/min/1. 73 m? [facility] CONVERSION Est Glomerular Filtration Rate 71(Court Specialist al Lab) >=60 mL/min/1. 73 m? [facility] CONVERSION Protein, Total 7.6(Exter nal Lab) 6.1 - 8.0 gm/dL [facility] CONVERSION Alanine Aminotransferase 62(ExtH) 0 - 30 unit/L [facility] CONVERSION Alkaline Phosphatase 55(Court Specialist al Lab) 40 - 104 unit/L [facility] CONVERSION Aspartate Aminotransferase 51(ExtH) 0 - 30 unit/L [facility] CONVERSION Albumin 4.4(Exter nal Lab) 3.2 - 5.2 gm/dL [facility] CONVERSION Potassium 3.9(Exter nal Lab) 3.5 - 5.0 mmol/L [facility] CONVERSION Carbon Dioxide 28(Court Specialist al Lab) 22 - 31 mmol/L [facility] CONVERSION Glucose 139(Exter nal Lab) 65 - 199 mg/dL [facility] CONVERSION Sodium 138(Exter nal Lab) 135 - 145 mmol/L [facility] CONVERSION Anion Gap 12(Court Specialist al Lab) 5 - 15 mmol/L [facility] CONVERSION Creatinine 0.91(Exte rnal Lab) 0.70 - 1.20 mg/dL [facility] CONVERSION Bilirubin, Total 0.4(Exter nal Lab) 0.2 - 1.3 mg/dL [facility] CONVERSION 01/20/2018 12:4 6 PM EDT Results Provider Nlh Conversion MD OCTAVIO GODINEZ ORDERABLES [facility] CONVERSION documented in this encounter Visit Diagnoses Not on filedocumented in this encounter Care Teams Furnace Builder Relationship Specialty Start Date End Date Bob Day MD [address] [facility] [place] [address] PCP - General Family Medicine 01/18/18 07/26/20 documented as of this encounter
--- OUTSIDE RECORDS SUMMARY | 2024-04-05 16:32 | XMS_ITS | Encounter Summary ---
Author Organization [facility] Address [facility] [place] [address] Care Team Providers Care Plug Assembler Name Role Phone Brisa Christine MD Primary Care Provider [phone] Reason for Referral * Consultation (Routine) - Closed Specialty Diagnoses / Procedures Referred By Cindy wooten Referred To Contact Orthopaedics Diagnoses Postlaminectomy syndrome Karl Becker MD [facility] [place] [address] Woody Hernandez MD [facility] [place] [address] Referral ID Status Reason Start Date Expiration Date V isits Requested Visits Authorized [id number] Closed Consult, Test & Treat 11/10/2017 11/10/2018 1 1 Encounter Details Date Type Department Care Team (Late st Contact Info) Description 11/10/2017 Telephone [place] [address] Karl Becker MD [facility] [place] [address] Social History Tobacco Use Types Packs/Day Years [...] Miscellaneous Notes * Telephone Encounter - Karl Becker MD - 11/10/2017 1:16 PM EDT I spoke to the patient again and the [facility] [employer] medical billing representative. I will make a referral to see Dr. Hernandez in the spine center and myself at the same time on her day she is coming for the refill in January. The patient states she is willing to wait until then. documented in this encounter Plan of Treatment Upcoming Encounters Date Type Department Care Team (Latest Contact Info) Description 04/06/2024 11:30 AM EST Hospital Encounter [place] [address] Cadence Eric MD [facility] [place] [address] 04/06/2024 11:30 AM EST - 04/06/2024 12:50 PM EST Surgery [place]patient [place] [address] Cadence Eric MD [facility] [place] [address] IMPLANT NEUROSTIMULATOR ELECTRODES, PERIPHERAL NERVE (WRVU 5.76) 04/14/2024 2:30 PM EST Office Visit [facility] [place] [address] Cadence Eric MD [facility] [place] [address] Scheduled Procedures Name Priority Associated Diagnoses Date/Ti me IMPLANT NEUROSTIMULATOR ELECTRODES, PERIPHERAL NERVE (WRVU 5.76) Yes Saphenous neuralgia, right 04/06/2024 11:30 AM EST IMPLANT NEUROSTIMULATOR ELECTRODES, PERIPHERAL NERVE (WRVU 5.76) Saphenous neuralgia, 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 Neuropathic pain COLONOSCOPY,SCREENING (WRVU 3.26) Health maintenance examination-screening colo Scheduled Referrals Name Type Priority Associated Diagnoses Orde r Schedule Referral to Spine Center Outpatient Referral Routine Postlaminectomy syndrome Ordered: 11/10/2017 documented as of this encounter Visit Diagnoses Diagnosis Postlaminectomy syndrome Postlaminectomy syndrome, unspecified region Saphenous neuralgia, right documented in this encounter Care Teams Plug Assembler Relationship Specialty Start Date End Date Brisa Christine MD PCP - General Internal Medicine 06/05/17 01/17/18 documented as of this encounter
--- OUTSIDE RECORDS SUMMARY | 2024-04-05 16:32 | XMS_ITS | Encounter Summary ---
Author Organization [facility] [place] [address] Care Team Providers Care Business Job Titles Name Role Phone Bob Day MD Primary Care Provider [phone] Reason for Referral * Diagnostic Test (Routine) - Closed Specialty Diagnoses / Procedures Referred By Contac t Referred To Contact Radiology Diagnoses Fusion of sacral region of spine Procedures CT Pelvis MSK (Bones Joints Muscles)WO Contrast Woody Hernandez MD [facility] [place] [place] [address] [place] [address] Referral ID Status Reason Start Date Expiration Date V isits Requested Visits Authorized [id number] Closed Specialty Service Requested 01/18/2018 03/18/2018 1 1 Reason for Visit * Diagnostic Test (Routine) - Closed Specialty Diagnoses / Procedures Referred By Contac t Referred To Contact Radiology Diagnoses Fusion of sacral region of spine Procedures CT Pelvis MSK (Bones Joints Muscles)WO Woody Mercado MD [facility] [place] [address] [place] [address] Referral ID Status Reason Start Date Expiration Date V isits Requested Visits Authorized [id number] Closed Specialty Service Requested 01/18/2018 03/18/2018 1 1 Encounter Details Date Type Department Care Team (Latest Contact Info) Description 02/10/2018 7:09 AM EDT - 02/10/2018 11:59 PM EDT Hospital Encounter CT Scan at [facility] [place] [address] Woody Hernandez MD [facility] [place] [address] Fusion of sacral region of spine Discharge Disposition: Home Social History Tobacco Use [...] AM EST Hospital Encounter Outpatient [place] [address] Cadence Eric MD [facility] [place] [address] 04/06/2024 11:30 AM EST - 04/06/2024 12:50 PM EST Surgery Outpatient [place] [address] Cadence Eric MD [facility] [place] [address] IMPLANT NEUROSTIMULATOR ELECTRODES, PERIPHERAL NERVE (WRVU 5.76) 04/14/2024 2:30 PM EST Office Visit [place] [address] Cadence Eric MD [facility] [place] [address] Scheduled Procedures Name Priority Associated Diagnoses Date/Ti [...] Name Priority Date/Time Associated Diagnosis Comments CT PELVIS MSK (BONES JOINTS MUSCLES) WO CONTRAST Routine 02/10/2018 7:33 AM EDT Fusion of sacral region of spine documented in this encounter Results * CT [...] joint. 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
--- OUTSIDE RECORDS SUMMARY | 2024-04-05 16:32 | XMS_ITS | Encounter Summary ---
Author Organization [facility] Address [facility] [place] [address] Care Team Providers Care Building Custodian Name Role Phone Bob Day MD Primary Care Provider [phone] Reason for Referral * Diagnostic Test (Routine) - Closed Specialty Diagnoses / Procedures Referred By Contac t Referred To Contact Radiology Diagnoses Ventral hernia without obstruction or gangrene Procedures CT Abdomen & Pelvis w Contrast Izzy Blanco MD [facility] [place] [address] [facility] [place] [address] Referral ID Status Reason Start Date Expiration Date V isits Requested Visits Authorized [id number] Closed Specialty Service Requested 02/10/2018 02/10/2019 1 1 Reason for Visit * Reason Comments Hernia * Consultation (Routine) - Closed Specialty Diagnoses / Procedures Referred By Contac t Referred To Contact General Surgery Diagnoses UMBILICAL HERNIA - HAD U/S DONE HERE LAST WEEK Bob Day MD [address] [place] [address] [facility] Gen Surgery [address] [place] [address] Referral ID Status Reason Start Date Expiration Date V isits Requested Visits Authorized [id number] Closed Consult, Test & Treat Connection Center 01/21/2018 01/21/2019 1 1 Encounter Details Date Type Department Care Team (Late st Contact Info) Description 02/10/2018 8:40 AM EDT Office Visit General Surgery at [facility] [place] [place] [address] Izzy Blanco MD [facility] [place] [address] Ventral hernia without obstruction or gangrene; Morbid obesity with BMI of 45.0-49.9, adult Social History Tobacco Use Types Packs/Day [...] Sign Reading Time Taken Comments Blood Pressure 139/75 02/10/2018 8:27 AM EDT Pulse 99 02/10/2018 8:27 AM EDT Temperature - - Respiratory Rate 16 02/10/2018 8:27 AM EDT Oxygen Saturation 91% 02/10/2018 8:27 AM EDT Inhaled Oxygen Concentration - - Weight 115.7 kg (255 lb) 02/10/2018 8:27 AM EDT Height 152.4 cm (5') 02/10/2018 8:27 AM EDT Body Mass Index 49.8 02/10/2018 8:27 AM EDT documented in this encounter Progress Notes * Izzy Blanco MD - 02/10/2018 8:40 AM EDT Etelvina Cuadra is a 57 y.o. female referred by Bob Day MD regarding a ventral hernia. Ms. Cuadra has a history of a laparoscopic cholecystectomy in 2017. Over the last year she has noticed a bulge above her umbilicus that has grown in size. She has a history of chronic constipation with abowel movement typically occurring every 1-2 weeks. She states that before she has a bowel movementshe will develop severe pain in the area, with associated nausea. She takes stool softeners and occasionally miralax. She has chronic pain on oral opioids and a morphine pump. She denies emesis. An ultrasound on 01/18/18 showed a 3 cm epigastric hernia containing bowel. Modifiable risk factors: Body mass index is 49.8 kg/(m^2). Tobacco: Nonsmoker Diabetes: Prediabetic Past Medical History: Diagnosis Date ??? Allergic state ??? CAD (coronary artery disease) ??? Depression Patient Active Problem List Diagnosis Code ??? CIS - Entered not Verified ??? Postlaminectomy syndrome M96.1 ??? CIS - Sciatica ??? Encounter for long-term opiate analgesic use Z79.891 ??? Cholecystitis K81.9 Past Surgical History: Procedure Laterality Date ??? BACK SURGERY ??? IMPLANT OR REPLACE DEVICE FOR INTRATHECAL INFUSION, SUBQ RESERVOIR ??? ORTHOPEDIC SURGERY ??? PRO COLONOSCOPY, BIOPSY 10/07/2011 COLONOSCOPY FLEXIBLE, WITH BX performed by NIKKI MAYORGA at [facility] ENDOSCOPY ??? PRO COLONOSCOPY, DIAGNOSTIC 09/23/2011 COLONOSCOPY, DIAGNOSTIC performed by NIKKI MAYORGA at [facility] ENDOSCOPY ??? PRO LAP, CHOLECYSTECTOMY/GRAPH N/A 10/18/2016 LAPAROSCOPIC CHOLECYSTECTOMY WITH CHOLANGIOGRAM (WRVU 11.47) performed by Tasia Umaña MD at [facility] MAIN OR Medications: Current Outpatient Prescriptions: ??? morphine 100 % Powd 10 mg/mL, by Intrathecal route continuous., Disp: 42 mL, Rfl: 0 ??? amitriptyline (ELAVIL) 75 mg Tablet, nightly., Disp: , Rfl: 0 ??? oxyCODONE (ROXICODONE) [...] Tablet, as needed., Disp: , Rfl: ??? citalopram (CELEXA) 40 mg tablet, Take 40 mg by mouth daily., Disp: , Rfl: ??? levothyroxine (SYNTHROID) 100 mcg tablet, 100 MCG = 1 Tablet(s), PO, Once daily, Disp: , Rfl: Allergies: Peanut; Peanut oil; Wheat; Wheat bran; Wheat flour; Wheat germ oil; Wheat starch; Canine protein containing products; Hydrocodone; Hydrocodone- acetaminophen; Rice; Rofecoxib; Tetracycline; Tetracyclines; and Wool Social history: reports that she quit smoking about 26 years ago. Her smoking use included Cigarettes. She smoked 0.25 packs per day. She has never used smokeless tobacco. She reports that she does not drink alcoholor use illicit drugs. Family History Problem Relation Age of Onset ??? Coronary Artery Disease Father ??? Anesthesia Reaction Neg Hx Review of systems: Review of systems is notable for a 10 lb intentional weight loss in the last two weeks. She denies any cough, chest pain or shortness on breath on exertion. She has difficulty walking due to back pain. Can climb a flight of stairs. wheeling her around in a wheel chair for longer distances. She can ambulate with use of a cart in the grocery store. Denies issues with bleeding and clotting. S he has no fevers, chills or night sweats. Bowel and bladder elimination is as per HPI. All other system reviews are negative. BP 139/75 Pulse 99 Resp 16 Ht 152.4 cm (5') Wt 115.7 kg (255 lb) SpO2 91% BMI 49.8 kg/m2 On physical examination, this is a well appearing female with central obesity. There is no scleral or skin icterus. Mucous membranes are moist and pupils reactive. Her lungs are clear to auscultation. Heart is regular, rate, and rhythm and without murmurs. Her abdomen is nontender and without palpable masses. There is a soft diffuse bulge above her umbilicus, as well as a likely diastasis, with exam limited by her body habitus. Her extremity and neurological exam are grossly normal. Impression: Symptomatic ventral hernia with a BMI of 49. We reviewed the nature of hernias and hernia repair. We discussed that to minimize her chance of recurrence, as well as complication at the time of surgery, additional weight loss is important. We discussed a referral to the weight and wellness center versus bariatric surgery. She is interested in bariatric surgery to improve her overall health and mobility. I provided her with information on how to register for an introductory meeting. Iwould like to proceed with a CT scan of her abdomen to determine how much of her abdominal wall bulge is diastases versus hernia. She will follow-up after her scan to finalize a surgical plan. documented in this encounter Plan of Treatment Upcoming Encounters Date Type Department Care Team (Latest Contact Info) Description 04/06/2024 11:30 AM EST Hospital Encounter [place] [address] Cadence Eric MD [facility] [place] [address] 04/06/2024 11:30 AM EST - 04/06/2024 12:50 PM EST Surgery [place] [address] Cadence Eric MD [facility] [place] [address] IMPLANT NEUROSTIMULATOR ELECTRODES, PERIPHERAL NERVE (WRVU 5.76) 04/14/2024 2:30 PM EST Office Visit Pain [place] [address] Cadence Eric MD [facility] [place] [address] Scheduled Procedures Name Priority Associated Diagnoses Date/Ti me IMPLANT NEUROSTIMULATOR ELECTRODES, PERIPHERAL NERVE (WRVU 5.76) Yes Saphenous neuralgia, right 04/06/2024 11:30 AM EST IMPLANT NEUROSTIMULATOR ELECTRODES, PERIPHERAL NERVE (WRVU 5.76) Saphenous neuralgia, 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 Neuropathic pain COLONOSCOPY,SCREENING (WRVU 3.26) Health maintenance examination-screening colo documented as of this encounter Results * CT Abdomen & [...] unspecified, without mention of obstruction or gangrene Morbid obesity with BMI of 45.0-49.9, adult Morbid obesity Ventral hernia without obstruction or gangrene Ventral hernia, unspecified, without mention of obstruction or gangrene Saphenous neuralgia, right documented in this encounter Care Teams Building Custodian Relationship Specialty Start Date End Date Bob Day MD [address] [place] [address] PCP - General Family Medicine 01/18/18 07/26/20 documented as of this encounter
--- OUTSIDE RECORDS SUMMARY | 2024-04-05 16:32 | XMS_ITS | Encounter Summary ---
Author Organization [facility] [place] [address] Care Team Providers Care Investment Advisor Name Role Phone Bob Day MD Primary Care Provider [phone] Encounter Details Date Type Department Care Team (Late st Contact Info) Description 04/12/2018 [facility] Conversion Results [address] [place] [phone] [facility] Conversion, Flowsheet Provider, [...] Sign Reading Time Taken Comments Blood Pressure 138/83 04/12/2018 12:00 AM EST Sourced from [facility] Conversion Pulse - - Temperature - - Respiratory Rate - - Oxygen Saturation - - Inhaled Oxygen Concentration - - Weight 112.5 kg (248 lb) 04/12/2018 12: 00 AM EST Sourced from [facility] Conversion Height 152 cm (4' 11.84) 04/12/2018 12 :00 AM EST Sourced from [facility] Conversion Body Mass Index 48.69 04/12/2018 12:00 AM EST documented in this encounter Plan of Treatment Upcoming Encounters Date Type Department Care Team (Latest Contact Info) Description 04/06/2024 11:30 AM EST Hospital Encounter Outpatient [place] [address] Cadence Eric MD [facility] [place] [address] 04/06/2024 11:30 AM EST - 04/06/2024 12:50 PM EST Surgery [place] [address] Cadence Eric MD [facility] [address] IMPLANT NEUROSTIMULATOR ELECTRODES, PERIPHERAL NERVE (WRVU 5.76) 04/14/2024 2:30 PM EST Office Visit [place] [address] Cadence Eric MD [facility] [place] [address] Scheduled Procedures Name Priority Associated Diagnoses Date/Ti [...] on filedocumented in this encounter Care Teams Investment Advisor Relationship Specialty Start Date End Date Bob Day MD [address] [place] [address] PCP - General Family Medicine 01/18/18 07/26/20 documented as of this encounter
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
--- OUTSIDE RECORDS SUMMARY | 2024-04-05 16:32 | XMS_ITS | Encounter Summary ---
Author Organization [facility] Address [facility] [place] [address] Care Team Providers Care Mobile Phlebotomist Name Role Phone Bob Day MD Primary Care Provider [phone] Reason for Visit * Reason Comments Follow-up Encounter Details Date Type Department Care Team (Late st Contact Info) Description 02/24/2018 4:20 PM EDT Office [place] [address] Izzy Blanco MD [facility] [place] [address] Dilation of biliary tract; Ventral hernia without obstruction or gangrene; Morbid obesity with BMI of 50.0-59.9, [...] Sign Reading Time Taken Comments Blood Pressure 149/79 02/24/2018 4:29 PM EDT Pulse 78 02/24/2018 4:29 PM EDT Temperature - - Respiratory Rate - - Oxygen Saturation 97% 02/24/2018 4:29 PM EDT Inhaled Oxygen Concentration - - Weight 116.6 kg (257 lb) 02/24/2018 4:29 PM EDT Height - - Body Mass Index 50.19 02/10/2018 8:27 AM EDT documented in this encounter Progress Notes * Izzy Blanco MD - 02/24/2018 4:20 PM EDT Etelvina Cuadra returns in follow up. She was last seen by me on 02/10/18 regarding a ventral hernia inthe setting of morbid obesity. In summary, Etelvina Cuadra is a 57 y.o. female referred by Bob Day MD regarding a ventral hernia. Ms. Cuadra has a history of a laparoscopic cholecystectomy in 2017. Over the last year she has noticed a bulge above her umbilicus that has grown in size. She has a history of chronic constipation with a bowel movement typically occurring every 1-2 weeks. She states that before she has a bowel movement she will develop severe pain in the area, with associated nausea. She takes stool softeners and occasionally miralax. She has chronic pain on oral opioids and a morphine pump. She denies emesis. An ultrasound on 01/18/18 showed a 3 cm epigastric hernia containing bowel. ? Modifiable risk factors: Body mass index is 49.8 kg/(m^2). Tobacco: Nonsmoker Diabetes: Prediabetic Since our last visit, she reports no change in symptoms. She is moving her bowels more frequently using miralax. She went to a bariatric introductory meeting and is starting on her requirements. She underwent a CT that showed: IMPRESSION 1. Large ventral hernia defect as described above containing large bowel and mesentery with no evidence of strangulation or obstruction. 2. Mild common bile duct dilatation may represent postcholecystectomy ectasia versus obstruction; recommend correlation with liver function tests to assess for biliary obstruction. 3. Hepatic steatosis with borderline hepatomegaly. I reviewed the images with her. Impression: Ventral hernia containing unobstructed colon the [...] further with her at a future visit. Will check her LFTs given her biliary dilation. I will follow up with her if any concern for obstruction. 10 of 15 minutes spent on counseling and coordination of care. documented in this encounter Plan of Treatment Upcoming Encounters Date Type Department Care Team (Latest Contact Info) Description 04/06/2024 11:30 AM EST Hospital Encounter Outpatient [place] [address] Cadence Eric MD [facility] [place] [address] 04/06/2024 11:30 AM EST - 04/06/2024 12:50 PM EST Surgery Outpatient [place] [address] Cadence Eric MD [facility] [place] [address] IMPLANT NEUROSTIMULATOR ELECTRODES, PERIPHERAL NERVE (WRVU 5.76) 04/14/2024 2:30 PM EST Office Visit [place] [address] Cadence Eric MD [facility] [place] [address] Scheduled Procedures Name Priority Associated Diagnoses Date/Ti [...] Procedure Name Priority Date/Time Associated Diagnosis Comments COMPREHENSIVE METABOLIC PANEL Routine 02/24/2018 5:17 PM EDT Dilation of biliary tract documented in this encounter Results * (ABNORMAL) Comprehensive metabolic panel (non-fasting) (02/24/2018 5:17 PM EDT) Glucose 117 65 - 199 mg/dL [facility] Comment:Diabetes: >=200 mg/d L plus symptoms Blood Urea Nitrogen 18 8 - 18 mg/dL [facility] Creatinine 0.89 0.70 - 1.20 mg/dL [facility] Sodium 137 135 - 145 mmol/L [facility] Potassium 3.7 3.5 - 5.0 mmol/L [facility] Comment: Please note: ??Patients with WBC >100,000 may have falsely elevated Potassium levels. ??For accurate Potassium quantification in these patients send serum separator tube (gold top) for subsequent determinations. ??Contact the Clinical Chemistry Laboratory if there are any questions. Chloride 97(L) 98 - 107 mmol/L [facility] Carbon Dioxide 28 22 - 31 mmol/L [facility] Anion Gap 12 5 - 15 mmol/L [facility] Calcium 9.7 8.5 - 10.5 mg/dL [facility] Protein, Total 8.0 6.1 - 8.0 gm/dL [facility] Albumin 4.4 3.2 - 5.2 gm/dL [facility] Aspartate Aminotransferase 24 0 - 30 unit/L [facility] Alanine Aminotransferase 31(H) 0 - 30 unit/L [facility] Alkaline Phosphatase 53 40 - 104 unit/L [facility] Bilirubin, Total 0.3 0.2 - 1.3 mg/dL [facility] Est Glomerular Filtration Rate 72 >=60 mL/min/1. 73 m?? [facility] Comment: The eGFR was calculated using the CKD-EPI equation. As with all creatinine based estimates of kidney function, eGFR values calculated with the CKD-EPI equation are not accurate in patients with acute kidney failure, extremes of body mass or the acutely ill. http://Adility/DHMCnkf eGFR 84 >=60 mL/min/1. 73 m?? [facility] Comment: The eGFR was calculated using the CKD-EPI equation. As with all creatinine based estimates of kidney function, eGFR values calculated with the CKD-EPI equation are not accurate in patients with acute kidney failure, extremes of body mass or the acutely ill. http://Adility/DHMCnkf Blood specimen (specimen) 02/24/2018 5:17 PM EDT 02/24/2018 5:25 PM EDT Narrative Resulting Agency Comment Spec In Lab Izzy Blanco MD CHEMISTRY ORDERABLE S [facility] [place] [address] documented in this encounter Visit Diagnoses Diagnosis Dilation of biliary tract Other specified disorders of biliary tract Ventral hernia without obstruction or gangrene Ventral hernia, unspecified, without mention of obstruction or gangrene Morbid obesity with BMI of 50.0-59.9, adult Morbid obesity Saphenous neuralgia, right documented in this encounter Care Teams Mobile Phlebotomist Relationship Specialty Start Date End Date Bob Day MD [address] [place] [address] PCP - General Family Medicine 01/18/18 07/26/20 documented as of this encounter
--- OUTSIDE RECORDS SUMMARY | 2024-04-05 16:32 | XMS_ITS | Encounter Summary ---
Author Organization Counts Include [facility] Address [facility] [place] [address] Care Team Providers Care Oncologist Name Role Phone Bob Day MD Primary Care Provider [phone] Encounter Details Date Type Department Care Team (Late st Contact Info) Description 01/20/2018 [facility] Conversion Results [address] [place] [phone] [facility] Conversion, Flowsheet Provider, Social History Tobacco [...] Sign Reading Time Taken Comments Blood Pressure 129/83 01/20/2018 12:00 AM EDT Sourced from [facility] Conversion Pulse - - Temperature - - Respiratory Rate - - Oxygen Saturation - - Inhaled Oxygen Concentration - - Weight 117.9 kg (260 lb) 01/20/2018 12: 00 AM EDT Sourced from [facility] Conversion Height 152 cm (4' 11.84) 01/20/2018 12 :00 AM EDT Sourced from [facility] Conversion Body Mass Index 51.04 01/20/2018 12:00 AM EDT documented in this encounter Plan of Treatment Upcoming Encounters Date Type Department Care Team (Latest Contact Info) Description 04/06/2024 11:30 AM [facility] Hospital Encounter [place] [address] Cadence Eric MD [facility] [place] [address] 04/06/2024 11:30 AM EST - 04/06/2024 12:50 PM EST Surgery [place] [address] Cadence Eric MD [facility] [address] IMPLANT NEUROSTIMULATOR ELECTRODES, PERIPHERAL NERVE (WRVU 5.76) 04/14/2024 2:30 PM EST Office Visit [facility] [place] [address] Cadence Eric MD [facility] [place] [address] Scheduled Procedures Name Priority Associated Diagnoses Date/Ti [...] on filedocumented in this encounter Care Teams Oncologist Relationship Specialty Start Date End Date Bob Day MD [address] [place] [address] PCP - General Family Medicine 01/18/18 07/26/20 documented as of this encounter
--- OUTSIDE RECORDS SUMMARY | 2024-04-05 16:32 | XMS_ITS | Encounter Summary ---
Author Organization [facility] Address [facility] [place] [address] Care Team Providers Care Junior Project Coordinator Name Role Phone Brisa Christine MD Primary Care Provider Encounter Details Date Type Department Care Team (Latest Contact Info) Description 11/06/2017 11:37 AM EDT - 11/06/2017 11:59 PM EDT Hospital Encounter XRay at [address] [place] [address] Karl Becker MD [facility] [place] [address] Post laminectomy syndrome Discharge Disposition: Home Social History Tobacco Use [...] (E.C.) Take by mouth Daily. 01/16/2016 02/21/2020 amitriptyline (ELAVIL) 75 mg Tablet 25 mg nightly. 0 09/26/2017 06/30/2018 oxyCODONE (ROXICODONE) 10 mg Tablet TAKE 1 TABLET BY MOUTH THREE TIMES A DAY NEEDED 0 10/19/2017 07/15/2018 morphine 100 % Powd 10 mg/mLIndications:Post laminectomy syndrome by Intrathecal route continuous. 42 mL 11/06/2017 01/18/2018 fenofibrate (TRICOR) 145 mg Tablet 145 mg. 01/18/2018 Fenofibrate Nanocrystallized 160 mg Tablet Take 160 mg by mouth. 04/28/2017 01/18/2018 polyethylene glycol (MIRALAX) 17 gram Powder in Packet Take by mouth 1 time a day as needed. Dissolve in 4 to 8 ounces of water, juice, soda, coffee, tea. 01/18/2018 EPINEPHrine 1 mg/mL Kit Inject as directed [...] AM EST Hospital Encounter [place] [address] Cadence Eric MD [facility] [place] [address] 04/06/2024 11:30 AM EST - 04/06/2024 12:50 PM EST Surgery [place] [place] [address] Cadence Eric MD [facility] [address] IMPLANT NEUROSTIMULATOR ELECTRODES, PERIPHERAL NERVE (WRVU 5.76) 04/14/2024 2:30 PM EST Office Visit [place] [address] Cadence Eric MD [facility] [place] [address] Scheduled Procedures Name Priority Associated Diagnoses Date/Ti [...] Name Priority Date/Time Associated Diagnosis Comments XR THORACIC SPINE 2 VIEWS Routine 11/06/2017 12:06 PM EDT Post laminectomy syndrome documented in this encounter Results * XR Thoracic Spine 2 views (11/06/2017 12:06 PM EDT) Anatomical Region Laterality Modality N/A Digital Radiogra phy Impressions 11/06/2017 1:35 PM EDT Although the patient's intrathecal catheter is difficult to visualize believe it is intact. The end of the catheter projects at approximately the T4 level. There are no previous studies for direct comparison. Narrative 11/06/2017 1:35 PM EDT EXAMINATION: XR THORACIC SPINE 2 VIEWS CLINICAL HISTORY: history of intrathecal pump placement 2 years ago - check for IT catheter tip, check AP and lateral view TECHNIQUE: Frontal and lateral views of the thoracic spine COMPARISON: There are no previous thoracic spine films for direct comparison. Comparison is made to lumbar spine series performed 11/22/2015. FINDINGS: The patient's intrathecal catheter is very difficult to clearly visualize. It appears to enter the canal at approximately the T10 level. There is a small focal radiodensity projecting over T4 which I believe is the terminus of the catheter. Procedure Note Moody Nunez MD - 11/06/2017 EXAMINATION: XR THORACIC SPINE 2 VIEWS CLINICAL HISTORY: history of intrathecal pump placement 2 years ago -check for IT catheter tip, check AP and lateral view TECHNIQUE: Frontal and lateral views of the thoracic spine COMPARISON: There are no previous thoracic spine films for direct comparison. Comparison is made to lumbar spine series performed 11/22/2015. FINDINGS: The patient's intrathecal catheter is very difficult to clearly visualize.It appears to enter the canal at approximately the T10 level. There is asmall focal radiodensity projecting over T4 which I believe is the terminus ofthe catheter. IMPRESSION Although the patient's intrathecal catheter is difficult to visualizebelieve it is intact. The end of the catheter projects at approximately the T4 level.There are no previous studies for direct comparison. Karl Becker MD IMG DX ORDERABLES documented in this encounter Visit Diagnoses Diagnosis Post laminectomy syndrome Postlaminectomy syndrome, unspecified region Saphenous neuralgia, right documented in this encounter Care Teams Junior Project Coordinator Relationship Specialty Start Date End Date Brisa Christine MD PCP - General Internal Medicine 06/05/17 01/17/18 documented as of this encounter
--- OUTSIDE RECORDS SUMMARY | 2024-04-05 16:32 | XMS_ITS | Encounter Summary ---
Author Organization [facility] [place] [address] Care Team Providers Care Zigzag Elastic Attacher Name Role Phone Bob Day MD Primary Care Provider [phone] Encounter Details Date Type Department Care Team (Late st Contact Info) Description 02/16/2018 Telephone [place] [address] Rosario Jackson Social History Tobacco Use Types Packs/Day Years [...] encounter Miscellaneous Notes * Telephone Encounter - Rosario Jackson - 02/16/2018 3:11 PM EDT RAFAEL CALLED TO CONFIRM TIME OF 02/24/18 APPOINTMENTS documented in this encounter Plan of Treatment Upcoming Encounters Date Type Department Care Team (Latest Contact Info) Description 04/06/2024 11:30 AM EST Hospital Encounter [place] [place] [phone] Cadence Eric MD [facility] [place] [address] 04/06/2024 11:30 AM EST - 04/06/2024 12:50 PM EST Surgery [place] [place] [address] Cadence Eric MD [facility] [place] [address] IMPLANT NEUROSTIMULATOR ELECTRODES, PERIPHERAL NERVE (WRVU 5.76) 04/14/2024 2:30 PM EST Office Visit [place] [phone] Cadence Eric MD [facility] [place] [address] Scheduled Procedures Name Priority Associated Diagnoses Date/Ti [...] filedocumented in this encounter Care Teams Zigzag Elastic Attacher Relationship Specialty Start Date End Date Bob Day MD [address] [place] [address] PCP - General Family Medicine 01/18/18 07/26/20 documented as of this encounter
--- OUTSIDE RECORDS SUMMARY | 2024-04-05 16:32 | XMS_ITS | Encounter Summary ---
Author Organization [facility] [place] [address] Care Team Providers Care Pipeline Controller Name Role Phone Bob Day MD Primary Care Provider [phone] Reason for Visit * Auth/Cert Specialty Diagnoses / Procedures Referred By Cindy wooten Referred To Contact Diagnoses VENTRAL HERNIA Procedures PRO LAP, VENTRAL HERNIA REPAIR, INCARCERATED LAPAROSCOPIC HERNIA, VENTRAL, INCARCERATED, W-WO MESH (WRVU 14.94) MODIFIER ROBOT,DAVINCI XI MODIFIER MESH,BARD,ECHO POSITIONING SYSTEM Referral ID Status Reason Start Date Expiration Date Visits Re quested Visits Authorized [id number] 1 1 Encounter Details Date Type Department Care Team (Late st Contact Info) Description 07/12/2018 7:30 AM EST - 07/12/2018 10:58 AM EST Surgery [place] [address] Izzy Blanco MD [facility] [place] [address] LAPAROSCOPIC HERNIA, VENTRAL, INCARCERATED, W-WO MESH (WRVU 14.94) Social History Tobacco Use Types Packs/Day Years [...] Sign Reading Time Taken Comments Blood Pressure 107/64 07/12/2018 10:45 AM EST Pulse 79 07/12/2018 10:45 AM EST Temperature 36.4 ??C (97.5 ??F) 07/12/2018 10:[address] Respiratory Rate 13 07/12/2018 10:45 AM EST Oxygen Saturation 96% 07/12/2018 10:45 AM EST Inhaled Oxygen Concentration - - [...] program due to insurance changes. Hospital Course: Etelvina Cuadra is a 57 y.o. female who was admitted on 07/12/2018 for robotic laparoscopic repair of incarcerated ventral hernia with mesh. The operative course was uneventful. On POD# 0she was started on a regular diet. Her [...] %-99 %] Pertinent Lab Data: Recent Labs 03/05/ 1256 WBC 8.7 HGB 11.5* HCT 36.5 [...] as: TRIGLIDE nightly. Refills: 0 FLUARIX QUAD [id number] (PF) 60 mcg (15 mcg x 4)/0.5 mL Syrg inject 0.5 milliliter intramuscularly Generic drug: flu vacc [id number] 6mos up(PF) Refills: 0 levothyroxine 100 mcg [...] PM Izzy Blanco MD General Surgery at [place] Arrive at: [place] [phone] Future Orders Complete By Carlotta Walker standard [EQ135 Custom] As directed Process Instructions: Scheduling Instructions: Comments: Etelvina Cuadra [address] [place] [phone] (home) Telephone Information: Diagnosis:Ventral Hernia with Unsteady gait Patient's: Hgt: 152.4 cm Wgt: 106.6 kg VENDOR: [facility] Ordering: Front wheel walker [facility]iver [facility] room #: 324 Questions: Vendor Name/Contact [...] 101.3 F. The number for questions is [phone] before 5 PM weekdays and [phone] after 5 PM and weekends. Pain Medication: [...] 07/15/2018 Primary Care Physician: Bob Day MD [address] [place] [phone] documented in this encounter Discharge Instructions * Discharge Instructions* Danielle Hunter PA - 07/15/2018 1:28 PM EST Scheduled Appointments: Future Appointments and Orders Future Appointments and Orders Future Appointments Provider Department Dept Phone 08/12/2018 3:00 PM Izzy Blanco MD General Surgery at [place] Arrive at: [place] Future Orders Complete By Expires ?? Walker standard [EQ135 Custom] As directed ? Process Instructions: ? Scheduling Instructions: ? Comments: ?? Etelvina Cuadra [address] [facility] [address] (home) Telephone Information: ? Diagnosis:Ventral Hernia with Unsteady gait ?? Patient's: Hgt: 152.4 cm Wgt: 106.6 kg ?? VENDOR: [facility] Ordering: Front wheel walker Deliver to [facility] room #: 324 ?? Questions: ? [...] 101.3 F. The number for questions is [phone] before 5 PM weekdays and [phone] after 5 PM and weekends. Pain Medication: [...] continuous. 42 mL 04/12/2018 09/15/2018 FLUARIX QUAD [id number], PF, 60 mcg (15 mcg x 4)/0.5 [...] of this encounter Progress Notes * Moody Ko, RN - 07/15/2018 3:04 PM EST Pt [...] Please see flowsheet for full assessment. Moody Ko RN * Radha Chilel, PT - 07/15/2018 2:16 PM EST Physical Therapy Contact Note Patient seen for gait and stair training. Pt performed without concern for safety. Patient cleared for DC home from mobility standpoint. Full note to follow. Will continue to follow up as appropriate during hospital course. Please page with any questions or concerns. Radha Chilel PT, DPT Pager: [phone] 07/15/18 Inpatient Rehabilitation Department * Radha Chilel, [...] or concerns. 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 A letter describing our affiliations was reviewed with them and they were educated about their right to choose where referrals are placed. Patient requests referral to [facility] Located @ [facility] [place], [place] Expected date of discharge: Referral routed to the Aircraft Engine Mechanic Overhaul for matching with agency/vendor and to provide [...] specific about her medication regimen. ?? MARGARET ROYAL MD 07/14/2018 Acute Pain Service Pager: [phone] * Danielle Hunter PA - 07/14/2018 11:22 [...] ROYAL MD 07/13/2018 Acute Pain Service Pager: [phone] * Danielle Hunter PA - 07/13/2018 10:13 [...] tomorrow based on progress. JENNY HOYOS 07/13/2018 * Gio Momin MD - 07/12/2018 7:00 PM EST Patient [...] ativan to help alleviate symptoms. Please page [phone] anesthesia pager for any questions. * Staci Muniz RN - 07/12/2018 4:50 PM EST [facility] from PACU s/p laporoscopic hernia repair. Patient AOx 4, HRR, lung sounds clear, hypoactive bs, lbm 3/3 (per pt), voiding in purewick. +csmt to all extremities. Dressing clean dry and intact. Pain 4/10 at this time, ketamine drip and scheduled oxycontin controllingpain. Patient oriented to room, call reid to bedside, please see flowsheet for focused assessment. Will continue to monitor Staci Muniz, SONNY * Ирина Trejo RN - 07/12/2018 9:50 [...] BX performed by NIKKI MAYORGA at [facility] ENDOSCOPY ??? PRO COLONOSCOPY, DIAGNOSTIC 09/23/2011 COLONOSCOPY, DIAGNOSTIC performed by NIKKI MAYORGA at [facility] ENDOSCOPY ??? PRO LAP, CHOLECYSTECTOMY/GRAPH N/A 10/18/2016 LAPAROSCOPIC CHOLECYSTECTOMY WITH CHOLANGIOGRAM (WRVU 11.47) performed by Tasia Umaña MD at [facility] MAIN OR SH: Non smoker Objective: Most [...] PSYCH: normal affect and mood A/p: Etelvina Aponte Walth 57 y.o. presents for robotic ventral hernia . Consent signed and questions answered. Ry Crandall MD documented in this encounter Miscellaneous Notes * Plan of Care - Radha Chilel, PT - 07/15/2018 2:32 PM EST Physical [...] NO xxx Radha Chilel, PT, DPT Pager: [phone] Inpatient Physical Therapy 07/15/18 1432 Rehab Evaluation [...] up in chair upon arrival Transfer Assessment/Treatment Callaway (Sit-Stand Transfers) supervision required Callaway (Stand-Sit Transfers) supervision required Iex-Ixata-Kli Assistive Device (Transfers) rolling walker Callaway (Toilet Transfers) supervision required Assistive Device (Toilet Transfers) rolling walker Safety Issues (Transfers) step length decreased Impairments (Transfers) balance impaired;pain;strength decreased Comment (Transfers) no overt LOB, good hand placement Gait Assessment/Treatment Callaway (Gait) supervision required Assistive Device (Gait) rolling walker Distance in Feet (Gait) 100' Gait Pattern Analysis swing-through gait Deviations (Gait) ulisses decreased;step length decreased;stride length decreased Safety Issues (Gait) step length decreased Impairments (Gait) balance impaired;pain;strength decreased (endurance) Comment (Gait) no overt LOB, steady with FWW, no reported dizziness Stairs Assessment/Treatment Number of Stairs (Stairs) 3x2 Handrail Location (Stairs) left side (ascending) Callaway (Stairs) supervision required Assistive Device (Stairs) straight cane Technique (Stairs) nkzk-zz-egva (ascending);ptty-vn-cfjd (descending) Impairments (Stairs) balance impaired;pain;strength decreased (endurance) Comment (Stairs) intitially step-to pattern with LLE leading on descend, improved pain with RLE leading on descend. No overt LOB. incr pain on descend compared to ascend Motor Skills/Interventions Additional Documentation Balance Skills Training (Group) Balance Skills Training Training Strategies (Balance) FWW, supervision Sitting Balance: Static good balance Sitting Balance: Dynamic good balance Qdf-rn-Uzhdi Balance good balance Standing Balance: Static good balance Standing Balance: Dynamic fair balance Plan of Care Review Plan Of Care Reviewed With patient Progress improving Bed Mobility Goal Bed Mobility Goal, Date Established 07/14/18 Bed Mobility Goal, Time to Achieve by discharge Bed Mobility Goal, Activity Type all bed mobility activities Bed Mobility Goal, Callaway Level conditional independence Bed Mobility Goal, Date Goal Reviewed 07/15/18 Bed Mobility Goal, Outcome Achieved goal met Gait Training Goal Gait Training Goal, Date Established 07/14/18 Gait Training Goal, Time to Achieve by discharge Gait Training Goal, Callaway Level conditional independence Gait Training Goal, Assist [...] by discharge Transfer Training Goal, Activity Type pdo-vu-livyl/fmuzd-yc-wof;bit-pk-zxrgd/wesjy-ii-epy Transfer Train Goal, Callaway Level conditional independence Transfer Training Goal, Assist Device walker, rolling Transfer Train Goal, Date Goal Reviewed 07/15/18 Transfer Training Goal, Outcome goal met (has supervision from spouse) Physical Therapy Goal PT Goal, Date Established 07/14/18 PT Goal, Time to Achieve by discharge PT Goal, Activity Type maintain stable VS throughout activity w/ no incr s/sxs PT Goal, Callaway Level supervision required PT Goal, Date Goal [...] Ongoing (Interventions Implemented as Appropriate) 07/13/18 153 Interdisciplinary Rounds/Family Conf Participants assistant case manager;nursing;physician;physical therapy;patient Problem: Pain, Acute (Adult) [...] NO xxx Radha Chilel, PT, DPT Pager: [phone] Inpatient Physical Therapy 2017 PT Evaluation Code [...] Assistive Device (Bed Mobility) bed rails Scoot/Bridge Callaway (Bed Mobility) conditional independence Etldaz-lj-Asx Callaway (Bed Mobility) conditional independence Aoq-nt-Yaoepb Callaway (Bed Mobility) supervision required Impairments (Bed Mobility) pain;strength decreased Comment (Bed Mobility) significant time/effort Transfer Assessment/Treatment Chair-Bed Callaway (Transfers) contact guard assist;verbal cues required Uwj-Dqnqp-Oba Assistive Device (Transfers) rolling walker Callaway (Sit-Stand Transfers) supervision required;verbal cues required Callaway (Stand-Sit Transfers) contact guard assist;verbal cues required Jop-Zxscv-Pha Assistive Device (Transfers) rolling walker Callaway (Toilet Transfers) supervision required;verbal cues required Assistive Device (Toilet Transfers) rolling walker Safety Issues (Transfers) step length decreased Impairments (Transfers) balance impaired;pain;strength decreased Comment (Transfers) no overt LOB, sit<>Stand from toilet, bed, recliner, straight back chair Gait Assessment/Treatment Callaway (Gait) supervision required;contact guard assist Assistive Device [...] good balance Sitting Balance: Dynamic good balance Tgk-yt-Xuzam Balance fair balance Standing Balance: Static good [...] all bed mobility activities Bed Mobility Goal, Callaway Level conditional independence Gait Training Goal Gait Training Goal, Date Established 07/14/18 Gait Training Goal, Time to Achieve by discharge Gait Training Goal, Callaway Level conditional independence Gait Training Goal, Assist Device walker, rolling Gait Training Goal, Distance to Achieve 100' Gait Training Goal, Additional Goal 3 stairs with x1 rail, LRAD, CGA Transfer Training Goal Transfer Training Goal, Date Established 07/14/18 Transfer Training Goal, Time to Achieve by discharge Transfer Training Goal, Activity Type wpm-of-rupho/zktwd-ck-frz;enh-kg-jmbtg/torba-he-rfw Transfer Train Goal, Callaway Level conditional independence Transfer Training Goal, Assist Device walker, rolling Physical Therapy Goal PT Goal, Date Established 07/14/18 PT Goal, Time to Achieve by discharge PT Goal, Activity Type maintain stable VS throughout activity w/ no incr s/sxs PT Goal, Callaway Level supervision required Clinical Impression Therapy Frequency [...] Purposeful hourly rounding, call reid within reach, Masimjustyn Patient-specific fall prevention interventions for sensory deficits [...] Appropriate) 07/13/18 1532 Interdisciplinary Rounds/Family Conf Participants assistant case manager;nursing;physician;physical therapy;patient * Initial Assessments - [...] Specific Information: na Health/Prescription Coverage: Primary Insurance: Dick or Bro [facility] Secondary Insurance: MEDICARE Prescription Coverage: yes Preferred Pharmacy: [facility] Other: na Primary Care Provider: Bob Day MD [phone] Patient/Caregiver Goals of Treatment: discharge to home [...] of care planning. Heather Colon RN Pager: [phone] * Plan of Care - Ronald Aguirre [...] Blanco MD - 07/12/2018 9:29 AM EST [facility] Operative Note Patient Name: Etelvina Cuadra : [id number] MR#: [id number] Case Date: 07/12/2018 Surgeon: Surgeon(s) and Role: [...] AM EST Hospital Encounter Out[place] [address] Cadence Eric MD [facility] [place] [address] 04/06/2024 11:30 AM EST - 04/06/2024 12:50 PM EST Surgery Outpatient [place] [address] Cadence Eric MD [facility] [place] [address] IMPLANT NEUROSTIMULATOR ELECTRODES, PERIPHERAL NERVE (WRVU 5.76) 04/14/2024 2:30 PM EST Office Visit [facility] [place] [address] Cadence Eric MD [facility] [place] [address] Scheduled Procedures Name Priority Associated Diagnoses Date/Ti [...] 12:56 PM EST) Neutrophil % 61.3 % [facility] Neutrophil Absolute 5.36 1.70 - 6.10 x10(3)/mc L [facility] Lymph % 26.0 % [facility] Lymphocytes Abs 2.3 0.9 - 3.2 x10(3)/mc L [facility] Monocyte % 11.3 % [facility] Monocyte Abs 1.0(H) 0.3 - 0.9 x10(3)/mc L [facility] Eos % 0.6 % [facility] Eosinophils Abs 0.0 0.0 - 0.4 x10(3)/mc L [facility] Basophil % 0.3 % [facility] Baso Absolute 0.0 0.0 - 0.1 x10(3)/mc L [facility] Immature Gran % 0.50 % [facility] Comment: Immature granulocytes(IG's)percentage and absolute count will include metamyelocytes, myelocytes, and promyelocytes. Blood smears from CBCs yielding IG's will be scanned manually for concordance. If this scan disagrees with the automated IG or if promyelocytes are noted, a manual differential will be performed. Immature Gran Absolute 0.04 0.00 - 0.04 x10(3)/ L [facility] Blood specimen (specimen) 07/13/2018 12:56 PM EST 07/13/2018 1:05 PM EST Narrative Resulting Agency Comment Spec In Lab Danielle ALVARADO HEMATOLOGY ORDERABLE S [facility] [place] [address] * (ABNORMAL) Hemogram (07/13/2018 12:56 PM EST) White Blood Cell 8.7 4.0 - 9.5 x10(3)/[facility] LABORATORY Red Blood Cell 4.04 4.00 - 5.21 x10(6)/[facility] LABORATORY Hemoglobin 11.5(L) 11.7 - 15.5 gm/dL [facility] Hematocrit 36.5 35.7 - 45.8 % [facility] Mean Cell Volume 90.3 82.6 - 94.4 fL [facility] Mean Cell Hemoglobin 28.5 27.1 - 32.0 pg [facility] Mean Cell Hemoglobin Concentration 31.5(L) 31.7 - 35.0 gm/dL [facility] Platelet 332 145 - 357 x10(3)/[facility] LABORATORY RDW Standard Deviation 43.2 37.0 - 46.0 [facility] RDW coefficient of variation 13.0 11.5 - 14.1 % [facility] Mean Platelet Volume 10.2 7.6 - 12.9 fL [facility] NRBC% auto 0.0 % [facility] NRBC Absolute 0.000 0.000 - 0.000 x10(3)/[facility] Blood specimen (specimen) 07/13/2018 12:56 PM EST 07/13/2018 1:05 PM EST Narrative Resulting Agency Comment Spec In Lab Danielle ALVARADO HEMATOLOGY ORDERABLE S [facility] [address] * Basic Metabolic Panel (non-fasting) (07/13/2018 12:56 PM EST) Glucose 105 65 - 199 mg/dL [facility] Comment:Diabetes: >=200 mg/d L plus symptoms Blood Urea Nitrogen 9 8 - 18 mg/dL [facility] Creatinine 0.86 0.70 - 1.20 mg/dL [facility] Sodium 139 135 - 145 mmol/L [facility] Potassium 4.0 3.5 - 5.0 mmol/L [facility] Comment: Please note: ??Patients with WBC >100,000 may have falsely elevated Potassium levels. ??For accurate Potassium quantification in these patients send serum separator tube (gold top) for subsequent determinations. ??Contact the Clinical Chemistry Laboratory if there are any questions. Chloride 104 98 - 107 mmol/L [facility] Carbon Dioxide 27 22 - 31 mmol/L [facility] Anion Gap 8 5 - 15 mmol/L [facility] Calcium 9.0 8.5 - 10.5 mg/dL [facility] Est Glomerular Filtration Rate 76 >=60 mL/min/1. 73 m?? [facility] Comment: The eGFR was calculated using the CKD-EPI equation. As with all creatinine based estimates of kidney function, eGFR values calculated with the CKD-EPI equation are not accurate in patients with acute kidney failure, extremes of body mass or the acutely ill. http://[employer]/[facility] eGFR 88 >=60 mL/min/1. 73 m?? [facility] Comment: The eGFR was calculated using the CKD-EPI equation. As with all creatinine based estimates of kidney function, eGFR values calculated with the CKD-EPI equation are not accurate in patients with acute kidney failure, extremes of body mass or the acutely ill. http://[employer]/[facility] Blood specimen (specimen) 07/13/2018 12:56 PM EST 07/13/2018 1:05 PM EST Narrative Resulting Agency Comment Spec In Lab Izzy Blanco MD CHEMISTRY ORDERABLE S [facility] [place] [address] * SCAN DOC: IMPLANTABLE DEVICES (06/14/2018 12:00 AM EST) Narrative 06/14/2018 12:00 AM EST Ordered by an unspecified provider. Scanning Provider MEDIA MGR SCAN EXT O RDR/RSLT documented in this encounter Visit Diagnoses Not on filedocumented in this encounter Admitting Diagnoses Diagnosis Ventral hernia Ventral hernia, unspecified, without mention of obstruction or gangrene S/P repair of ventral hernia Other postprocedural status documented in this encounter Administered Medications Inactive Administered Medications - up to 3 most recent administrations Medication Order MAR Action Action Date Dose Rate Site acetaminophen (TYLENOL) tablet 650 mg 650 mg, Oral, EVERY 6 HOURS SCHEDULED, First dose on Thu07/13/18 at 0630, Until Discontinued, Maximum dose of acetaminophen is 4000 mg from all sources in 24 hours., Routine Given 07/15/2018 12:31 PM EST 650 mg Given 07/15/2018 5:15 AM EST 650 mg Given 07/14/2018 11:18 PM EST 650 mg BUpivacaine (PF) (MARCAINE) 0.5 % (5 mg/mL) injection ONCE PRN, Starting on Thu07/12/18 at 0817, Until Thu07/15/18 at 1742, Intra-Operative (Intra-Procedure), Routine Given 07/12/2018 9:20 AM EST 30 mLs Given 07/12/2018 8:47 AM EST 7 mLs Given 07/12/2018 8:17 AM EST 23 mLs citalopram (CeleXA) tablet 20 mg 20 mg, [...] Given 07/13/2018 7:16 PM EST 40 mg ketorolac (TORADOL) injection 15 mg 15 [...] Given 07/14/2018 6:24 AM EST 15 mg levothyroxine (SYNTHROID) tablet 100 mcg 100 mcg, Oral, EVERY MORNING, First dose on Thu07/13/18 at 0600, Until Discontinued, Recovery (Recovery-Hospital Unit), Routine Given 07/15/2018 5:16 AM ES T 100 mcg Given 07/14/2018 5:06 AM EST [...] Ronald Aguirre RN)1205 (Given - Provider: Moody Ko RN)1718 (Given - Provider: Moody Ko RN)2318 (Given - Provider: Ronald Aguirre RN) 0515 (Given - Provider: Ronald Aguirre RN)1231 (Given - Provider: Moody Ko RN) citalopram (CeleXA) tablet 20 mg 20 mg, Oral, DAILY, First dose on Thu07/12/18 at 1700, Until Discontinued, Recovery (Recovery-Hospital Unit), Routine 09 (Given - Provider: Chana Boykin RN) 0915 [...] Aguirre RN)1204 (See Alternative - Provider: Moody Ko, RN)1718 (See Alternative - Provider: Moody Ko RN)2318 (See Alternative - Provider: Ronald Aguirre RN) 0516 (See Alternative - Provider: Ronald Aguirre RN)1232 (See Alternative - Provider: Moody Ko RN) levothyroxine (SYNTHROID) tablet 100 mcg 100 [...] patch 1800 (Patch Removed - Provider: Moody Ko RN) oxyCODONE (OxyCONTIN) CR tablet 20 mg 20 mg, Oral, EVERY 12 HOURS SCHEDULED (2 times per day), First dose (after last modification) on Thu07/12/18 at 1630, Until Discontinued, DO NOT CRUSH OR OPEN, Recovery (Recovery-Hospital Unit), Routine 0435 (Given - Provider: Ronald Aguirre, SONNY)1631 (Given - Provider: Chana Boykin RN) 0343 (Given - Provider: Ronald Aguirre, RN)1606 (Given - Provider: Moody Ko, RN) 0335 (Given - Provider: Ronald Aguirre, RN) polyethylene glycol (MIRALAX) packet 17 g 17 g, Oral, DAILY, First dose on Thu07/13/18 at 0900, Until Discontinued, Routine 0912 (Given - Provider: Chana Boykin, SONNY) 0915 (Given - Provider: Moody Ko, RN) [...] Chana Boykin RN)1916 (Given - Provider: Ronald Aguirre, SONNY) 0916 (Given - Provider: Moody Ko, RN)1933 (Given - Provider: Ronald Aguirre, RN) 0845 (Given - Provider: Moody Ko, RN) Continuous Medication Order 07/13/2018 07/14/2018 07/15/2018 ketamine (KETALAR) 500 mg in sodium chloride 0.9% 500 mL infusion (CANCELED)(Linked Group 3) 3 mcg/kg/min ? 106.6 kg (19.188 mL/hr, rounded to 19.2 mL/hr), Intravenous, CONTINUOUS, Starting on Thu07/12/18 at 0930, Until Thu07/14/18 at 0116 0233 (New Bag - Provider: Ronald Aguirre, SONNY) ketamine (KETALAR) 500 mg in sodium chloride 0.9% 500 mL infusion (CANCELED)(Linked Group 4) 2 mcg/kg/min ? 106.6 kg (12.792 mL/hr, rounded to 12.8 mL/hr), Intravenous, CONTINUOUS, Starting on Thu07/14/18 at 0145, Until Gerda 07/15/18 at 0949 0232 (New Bag - Provider: Ronald Aguirre RN)0900 (Rate/Dose Change - Provider: Moody Ko RN) 0321 (New Bag - Provider: Ronald Aguirre RN) lactated Ringers infusion (CANCELED) 10 mL/hr, Intravenous, [...] Ronald Aguirre RN)0915 (Given - Provider: Moody Ko, RN)1205 (Given - Provider: Moody Ko, RN)1754 (Given - Provider: Moody Ko RN)2121 (Given - Provider: Ronald Aguirre RN) 0141 (Given - Provider: Ronald Aguirre RN)0516 (Given - Provider: Ronald Aguirre RN)0844 (Given - Provider: Moody Ko, RN)1231 (Given - Provider: Moody Ko, RN) sodium chloride 0.9 % flush 5-20 mL 5-20 mL, Intravenous, EVERY 1 MIN PRN, Starting on Thu07/12/18 at 1619, Until Gerda [...] Discontinued documented in this encounter Care Teams Pipeline Controller Relationship Specialty Start Date End Date Bob Day MD [address] [place] [address] PCP - General Family Medicine 01/18/18 07/26/20 documented as of this encounter
--- OUTSIDE RECORDS SUMMARY | 2024-04-05 16:33 | XMS_ITS | Encounter Summary ---
Author Organization [facility] Address [facility] [place] [address] Care Team Providers Care Helmet Coverer Name Role Phone Bob Day MD Primary Care Provider [phone] Encounter Details Date Type Department Care Team (Late st Contact Info) Description 11/27/2016 [facility] Conversion Results [address] [place] [phone] [facility]ly [facility] Conversion, Flowsheet Provider, Social History Tobacco Use [...] Sign Reading Time Taken Comments Blood Pressure 126/75 11/27/2016 12:00 AM EDT Sourced from [facility] Conversion Pulse - - Temperature - - Respiratory Rate - - Oxygen Saturation - - Inhaled Oxygen Concentration - - Weight 109.5 kg (241 lb 6 oz) 11/27/2016 12:00 AM EDT Sourced from [facility] Conversion Height 153 cm (5' 0.24) 11/27/2016 12: 00 AM EDT Sourced from [facility] Conversion Body Mass Index 46.77 11/27/2016 12:00 AM EDT documented in this encounter Plan of Treatment Upcoming Encounters Date Type Department Care Team (Latest Contact Info) Description 04/06/2024 11:30 AM [facility] Hospital Encounter [place] [address] Cadence Eric MD [facility] [place] [address] 04/06/2024 11:30 AM EST - 04/06/2024 12:50 PM EST Surgery [place] [address] Cadence Eric MD [facility] [place] [address] IMPLANT NEUROSTIMULATOR ELECTRODES, PERIPHERAL NERVE (WRVU 5.76) 04/14/2024 2:30 PM EST Office Visit [facility] [place] [address] Cadence Eric MD [facility] [place] [address] Scheduled Procedures Name Priority Associated Diagnoses Date/Ti [...] on filedocumented in this encounter Care Teams Helmet Coverer Relationship Specialty Start Date End Date Bob Day MD [address] [place] [address] PCP - General Family Medicine 01/18/18 07/26/20 documented as of this encounter
--- OUTSIDE RECORDS SUMMARY | 2024-04-05 16:33 | XMS_ITS | Encounter Summary ---
Author Organization [facility] [place] [address] Care Team Providers Care Head Baker Name Role Phone Bob Day MD Primary Care Provider [phone] Encounter Details Date Type Department Care Team (Late st Contact Info) Description 06/05/2017 [facility] Conversion Results [address] [place] [phone] [facility] Conversion, Flowsheet Provider, Social History Tobacco [...] Sign Reading Time Taken Comments Blood Pressure 135/78 06/05/2017 12:00 AM EST Sourced from [facility] Conversion Pulse - - Temperature - - Respiratory Rate - - Oxygen Saturation - - Inhaled Oxygen Concentration - - Weight 112.9 kg (249 lb) 06/05/2017 12: 00 AM EST Sourced from [facility] Conversion Height 152 cm (4' 11.84) 06/05/2017 12 :00 AM EST Sourced from [facility] Conversion Body Mass Index 48.88 06/05/2017 12:00 AM EST documented in this encounter Plan of Treatment Upcoming Encounters Date Type Department Care Team (Latest Contact Info) Description 04/06/2024 11:30 AM EST Hospital Encounter [facility] [place] [address] Cadence Eric MD [facility] [place] [address] 04/06/2024 11:30 AM EST - 04/06/2024 12:50 PM EST Surgery [place] [address] Cadence Eric MD [facility] [place] [address] IMPLANT NEUROSTIMULATOR ELECTRODES, PERIPHERAL NERVE (WRVU 5.76) 04/14/2024 2:30 PM EST Office [place] [address] Cadence Eric MD [facility] [place] [address] Scheduled Procedures Name Priority Associated Diagnoses Date/Ti [...] on filedocumented in this encounter Care Teams Head Baker Relationship Specialty Start Date End Date Bob Day MD [address] [place] [address] PCP - General Family Medicine 01/18/18 07/26/20 documented as of this encounter
--- OUTSIDE RECORDS SUMMARY | 2024-04-05 16:33 | XMS_ITS | Encounter Summary ---
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 the nursing notes, vital signs, and all diagnostic studies personally including labs, imaging studies and EKGs. I have discussedthe details of the case with the resident and agree with the assessment and plan as described in the resident note above unless noted otherwise below. Brief Summary: Patient is a 55-year-old female with past medical and surgical history as noted below presents the emergency department with right upper quadrant pain radiating to the back. Patient has been ongoing for several days and is worse with eating. At the top of my differential diagnosis was acute cholecystitis though we considered pancreatitis, small bowel obstruction, hepatitis and low lung pathology as well as pulmonary embolism. Patient's right upper quadrant ultrasound shows an inflamed gallbladder with pericholecystic fluid most consistent with acute cholecystitis and given the patient's fever of 103 2 days ago I do believe that the patient may be developing cholangitis. Patient hemodynamically stable at this time. Labs, fluids, antibiotics administered upon ultrasound results. Surgery consult it and recommended admission to theirservice with possible cholecystectomy. Patient and family are happy with this plan and patient is hemodynamically stable on admission. Final Assessment: Acute cholangitis documented in this encounter Miscellaneous Notes * Plan of Care - Na Workman, PT - 10/20/2016 2:42 PM EDT Problem: Patient Care Overview Goal: Plan of Care Review Outcome: Ongoing (Interventions Implemented as Appropriate) 10/20/16 2772 Coping/Psychosocial Plan Of Care Reviewed With patient Plan of Care Review Progress improving Physical Therapy Note Pertinent History of Current Problem: R sided acute pain, admitted for laparoscopic cholycystectomy. Pt has a morphine pain pump at baseline for chronic back pain Assessment: Pt seen for evaluation. Pt able to ambulate with SBA/TRANSPORTATION SPECIALIST and agrees to using a cane for postural support. Pt able negotiate stairs and get OOB without assist. Her will be with her to assist as needed. Expect pt will continue to improve as her surgical site pain decreases. Please see the Rehab Evaluation Summaries section for detailed objective data and specifics of today???s session. Precautions/Restrictions: (implanted morphine pump) Staff Mobility Recommendations: SBA Therapy Frequency: evaluation only Anticipated Equipment Needs at Discharge: standard cane Anticipated Discharge Disposition: home with assist NA WORKMAN PT Pager: [phone] Inpatient Physical Therapy * Initial Assessments - Lisa Hodges RN - 10/20/2016 11:38 AM EDT Office of Care Management Initial Assessment Service: Surg Onc Lisa Hodges RN Pager: [phone] Lisa Hodges RN discussed patient with provider team and in multidisciplinary discharge planning rounds. Review record and interviewed patient. Introduced/reviewed role; services accepted. Source of Information: Patient and medical record Reason for Hospitalization: s/p laparoscopic cholecystectomy Past Medical History: Diagnosis Date ??? Allergic state ??? CAD (coronary artery disease) ??? Depression Hospitalizations Within the Past 30 Days: None Anticipated Length Of Stay (If known): 24-48 hours Current Decision-Making Capacity: Independent, patient is cognitively intact. Advance Care Planning: <no information> Current Coping/Education/Information Needs: Patient is calm when discussing plan of care, understanding of current status, and satisfied with care at this time. Current Functional Ability: One assist with FWW Functional Status Prior to Admission: Patient is independent at home Home Environment: Patient is currently traveling with spouse from [place] in a 5th wheel camping trailer. She stated that they had just arrived to [place] last week and have their camper set up at a camping area in [place], [place]. They plan on staying in the area for about 2 months before heading back to [place]. The patient stated that there are approximately 4-5 steps up into the camper thatshe managed prior to this hospitalization. Social & Family Supports/Community Resources: Spouse Behavioral Health History: Depression Substance Use/Abuse: None Other Pertinent/Service Specific Information: NA Health/Prescription Coverage: Primary Insurance: Medicare A/B Secondary Insurance: NA Prescription Coverage: Yes [facility]erred [facility]acy[facility] Other: NA Primary Care Provider: Bob Day MD [phone] Patient/Caregiver Goals of Treatment: Discharge home Potential Needs for Transition of Care: Rehab/SNF: NA Home Health: NA DME: NA Dialysis: NA Community Resources: NA Transportation: Patient's spouse will transport patient home at discharge via private vehicle. Other: NA Anticipated Barriers to Discharge/Special Considerations: None Plan: CM will continue to monitor progress, follow for continuity of care, and assist with discharge planning while hospitalized. A member of the Care Management team will continue to monitor progress, follow for continuity of care and assist with transition of care planning. Lisa Hodges RN Pager: [phone] * Plan of Care - Debbie Conroy RN - 10/20/2016 2:59 AM EDT Problem: Patient Care Overview Goal: Plan of Care Review Outcome: Ongoing (Interventions Implemented as Appropriate) 10/20/16 0255 Coping/Psychosocial Plan Of Care Reviewed With patient Plan of Care Review Progress progress towards functional goals is fair OUTCOME EVALUATION NOTE: OUTCOME SUMMARY: Pt stating 8/10 abdominal pain, worse with movement. Given prn oxycodone and scheduled tylenol and toradol with good effect. Abdominal incisions well approximated, no redness, warmth or swelling. Abdomen tender, pt reports passing small amount of flatus. Pt ambulated in iyer with walker and one assist. Urine output adequate. PLAN MOVING FORWARD: Manage pain, encourage PO intake, promote bowel function. INDIVIDUALIZED FALL PREVENTION INTERVENTIONS: High Patient-specific fall risk factors per assessment: [current deficits]: Pain, narcotics, weakness, peripheral IV Assistance [level of assistance required for transfers and ambulation]: Walker with one assist Supervision [direct monitoring required during toileting and ADLs]: Eyes on Surveillance [continuous indirect monitoring]: Yes, Bed/Chair alarm, environmental modification (floor free of clutter, tubing secured), bed in low position, lighting adjusted for task/safety, nonskid slippers when out of bed, wheels locked, call light in reach, upper side-rails raised X2, ID bandson. Patient-specific fall prevention interventions for sensory deficits provided, if applicable: n/a CPG GOAL OUTCOME EVALUATION: Goal: Fall Prevention-Safe Patient Handling Outcome: Ongoing (Interventions Implemented as Appropriate) 10/19/16 0126 10/19/16 0811 10/19/162010 Musculoskeletal Interventions Muscle Strengthening activity/mobility promoted;mobility in bed promoted -- -- Activity and Safety Assistive Device Front wheel walker -- -- Daily Care Interventions Self-Care Promotion -- -- independence encouraged;BADL personal objects within reach;BADL personal routines maintained Positioning Body Position -- with 1-person assist;legs elevated;side-lying, left -- Anaya Fall Risk History of Falling -- -- 0 Secondary Diagnosis -- -- 15 Ambulatory Aids -- -- 15 Intravenous Therapy/Heparin/Saline Lock -- -- 20 Gait/Transferring -- -- 10 Mental Status -- -- 0 Score -- -- 60 OTHER Anaya Fall Risk -- -- High Restraint Interventions Safety Promotion/Fall Prevention -- -- activity supervised;fall prevention program maintained;nonskid shoes/slippers when out of bed Goal: Infection Control Outcome: Ongoing (Interventions Implemented as Appropriate) 10/19/162010 Safety Interventions Isolation Precautions standard precautions maintained Infection Prevention rest/sleep promoted;single patient room provided Coping Strategies Supportive Measures active listening utilized;counseling provided;verbalization of feelings encouraged;self-responsibility promoted;self-reflection promoted;self-care encouraged;relaxation techniquespromoted Problem: Cholecystitis/Cholecystectomy (Adult) Goal: Signs and Symptoms of Listed Potential Problems Will be Absent, Minimized or Managed (Cholecystitis/Cholecystectomy) Signs and symptoms of listed potential problems will be absent, minimized or managed by discharge/transition of care (reference Cholecystitis/Cholecystectomy (Adult) CPG). Outcome: Ongoing (Interventions Implemented as Appropriate) 10/20/16 0255 Cholecystitis/Cholecystectomy Problems Assessed (Cholecystitis/Cholecystectomy) all Problems Present (Cholecystitis/Cholecystectomy) pain Problem: Pain, Chronic (Adult) Goal: Acceptable Pain Control/Comfort Level Patient will demonstrate the desired outcomes by discharge/transition of care. Outcome: Ongoing (Interventions Implemented as Appropriate) 10/20/16 0255 Pain, Chronic (Adult) Acceptable Pain Control/Comfort Level making progress toward outcome * Plan of Care - Tiffanie Suarez RN - 10/19/2016 5:16 PM EDT Problem: Patient Care Overview Goal: Plan of Care Review Outcome: Ongoing (Interventions Implemented as Appropriate) 10/19/16 0126 10/19/16 0755 Coping/Psychosocial Plan Of Care Reviewed With -- patient;spouse Plan of Care Review Progress progress towards functional goals is fair -- OUTCOME EVALUATION NOTE: OUTCOME SUMMARY: MD Whitaker paged early in shift to address patient and spouse's concern that she needed additional/better pain control, evaluated patient at bedside. APS also rounded. Better pain control with addition of Oxycodone IR and IV Toradol, RUQ pain down from 10/10 to 4/10,though rises back up. Ambulated in iyer with FWW, SBA of 2, increase in pain but recovered well. Sat in chair this afternoon with fair tolerance. Lungs diminished, using IS with encouragement, reached 1000. Tolerating regular diet with 25% consumption, then feels full. Denies nausea, no flatus or BM. Teary at time, had lots of phone conversations, at bedside this morning and attentive. Voiding spontaneously, QS. PLAN MOVING FORWARD: Continue to evaluate effects of current pain regmen. Encourage IS, CDB, ambulation. Zosyn. INDIVIDUALIZED FALL PREVENTION INTERVENTIONS: Patient-specific fall risk factors per assessment: [current deficits]: Patient has 2 or more activemedical diagnoses, has an actively infusing IV line, has had recent surgery, uses an ambulatory aid, has generalized weakness, and is taking opioid/narcotic medications for pain management. Assistance [level of assistance required for transfers and ambulation]: 1-2 assist with FWW Supervision [direct monitoring required during toileting and ADLs]: Eyes on Surveillance [continuous indirect monitoring]: Purposeful rounding, observation by staff, NKE done at the bedside, bed/chair alarms activated, environmental modifications (waste basket is out of the path and the IV tubing and cords are free from the floor), assistive device available and within reach, lighting adjusted for task, bed in low position, wheels locked, side rails up (x3), nonskid socks worn OOB, [place] ID band on, no restraints, and call light is within reach at all times. Patient-specific fall prevention interventions for sensory deficits provided, if applicable: N/A CPG GOAL OUTCOME EVALUATION: Goal: Individualization & Mutuality 10/18/16212110/19/16125 Individualization Patient Specific Goals -- Pain management, encourage ambulation, advance diet as tolerated, continue IV abx Mutuality/Individual Preferences What Anxieties, Fears or Concerns Do You Have About Your Health or Care? I want to make sure I get the medications I am taking at home. -- Goal: Fall Prevention-Safe Patient Handling 10/19/16 0126 10/19/16 0755 10/19/16 0811 Activity and Safety Assistive Device Front wheel walker -- -- Daily Care Interventions Self-Care Promotion -- -- independence encouraged;BADL personal objects within reach;safe use of adaptive equipment encouraged Positioning Body Position -- -- with 1-person assist;legs elevated;side-lying, left Restraint Interventions Safety Promotion/Fall Prevention -- activity supervised;fall prevention program maintained;nonskid shoes/slippers when out of bed;safety round/check completed -- Goal: Infection Control Outcome: Ongoing (Interventions Implemented as Appropriate) 10/19/165 Safety Interventions Isolation Precautions standard precautions maintained Infection Prevention rest/sleep promoted;environmental surveillance performed Coping Strategies Supportive Measures active listening utilized;verbalization of feelings encouraged;positive reinforcement provided;relaxation techniques promoted;decision-making supported * Plan of Care - Marilia Do RN - 10/19/2016 1:34 AM EDT Problem: Patient Care Overview Goal: Plan of Care Review Outcome: Ongoing (Interventions Implemented as Appropriate) 10/19/16125 Coping/Psychosocial Plan Of Care Reviewed With patient Plan of Care Review Progress progress towards functional goals is fair OUTCOME EVALUATION NOTE: OUTCOME SUMMARY: Rafael arrived back from the PACU after start of shift with some significant abdominal pain and nausea. She is POD #0 lap cholecystectomy. Swarup to bedside to assess post-op. Medications adjusted, 1 time IV Dilaudid ordered and administered, and IV Zofran given - all with good effect. Patient felt much better after. She was DTV around 1999, but was refusing to get OOB until pain and nausea better controlled. Bladder scan indicated 187mL, MD notified and gave ok to wait until midnight to checkagain. Once nausea and pain under better control, patient OOB to BR and voided approx. 500mL dark yellow urine with low PVR. Encouraged PO intake and IS. PLAN MOVING FORWARD: Pain management, encourage ambulation, advance diet as tolerated, continue IV abx INDIVIDUALIZED FALL PREVENTION INTERVENTIONS: [place] Risk Patient-specific fall risk factors per assessment: [current deficits]: Patient has 2 or more activemedical diagnoses, has an actively infusing IV line, has had recent surgery, uses an ambulatory aid, has generalized weakness, and is taking opioid/narcotic medications for pain management. Assistance [level of assistance required for transfers and ambulation]: 1-2 assist with FWW Supervision [direct monitoring required during toileting and ADLs]: Eyes on Surveillance [continuous indirect monitoring]: Purposeful rounding, observation by staff, NKE done at the bedside, bed/chair alarms activated, environmental modifications (waste basket is out of the path and the IV tubing and cords are free from the floor), assistive device available and within reach, lighting adjusted for task, bed in low position, wheels locked, side rails up (x3), nonskid socks worn OOB, [place] ID band on, no restraints, and call light is within reach at all times. Patient-specific fall prevention interventions for sensory deficits provided, if applicable: N/A CPG GOAL OUTCOME EVALUATION: Goal: Individualization & Mutuality Outcome: Ongoing (Interventions Implemented as Appropriate) 10/19/16 0126 Individualization Patient Specific Goals Pain management, encourage ambulation, advance diet as tolerated, continue IV abx Goal: Fall Prevention-Safe Patient Handling Outcome: Ongoing (Interventions Implemented as Appropriate) 10/18/16199910/18/16204410/18/16 9454 Musculoskeletal Interventions Muscle Strengthening -- -- -- Activity and Safety Assistive Device -- -- -- Daily Care Interventions Self-Care Promotion -- -- -- Anaya Fall Risk History of Falling -- 0 -- Secondary Diagnosis -- 15 -- Ambulatory Aids -- 15 -- Intravenous Therapy/Heparin/Saline Lock -- 20 -- Gait/Transferring -- 10 -- Mental Status -- 0 -- Score -- 60 -- OTHER Anaya Fall Risk -- High -- Restraint Interventions Safety Promotion/Fall Prevention activity supervised;fall prevention program maintained;safety round/check completed -- -- Positioning Body Position -- -- supine, head elevated 10/19/16125 Musculoskeletal Interventions Muscle Strengthening activity/mobility promoted;mobility in bed promoted Activity and Safety Assistive Device Front wheel walker Daily Care Interventions Self-Care Promotion independence encouraged;BADL personal objects within reach Anaya Fall Risk History of Falling -- Secondary Diagnosis -- Ambulatory Aids -- Intravenous Therapy/Heparin/Saline Lock -- Gait/Transferring -- Mental Status -- Score -- OTHER Anaya Fall Risk -- Restraint Interventions Safety Promotion/Fall Prevention -- Positioning Body Position -- Goal: Infection Control Outcome: Ongoing (Interventions Implemented as Appropriate) 10/18/16199910/18/162044 Safety Interventions Isolation Precautions standard precautions maintained -- Infection Prevention rest/sleep promoted;single patient room provided -- Coping Strategies Supportive Measures -- active listening utilized;decision-making supported;goal setting facilitated;positive reinforcement provided;problem solving facilitated;self-care encouraged;verbalization of feelings encouraged Goal: Discharge Needs Assessment Outcome: Ongoing (Interventions Implemented as Appropriate) 10/18/16222910/19/16125 Discharge Needs Assessment Concerns To Be Addressed -- basic needs concerns Readmission Within The Last 30 Days -- no previous admission in last 30 days Equipment Needed After Discharge -- none Discharge Disposition -- still a patient Current Health Anticipated Changes Related to Illness -- none Activity/Self Care Review of Systems Equipment Currently Used at Home -- none Living Environment Transportation Available car;family or friend will provide -- Goal: Interdisciplinary Rounds/Family Conf Outcome: Ongoing (Interventions Implemented as Appropriate) 10/19/16125 Interdisciplinary Rounds/Family Conf Participants 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;family;nursing;patient;physician Problem: Cholecystitis/Cholecystectomy (Adult) Intervention: Promote Pulmonary Hygiene and Secretion Clearance 10/18/16181410/18/16235110/19/16125 Incentive Spirometer Administration (Incentive Spirometer) -- -- done with encouragement Promote Aggressive Pulmonary Hygiene/Secretion Management Cough And Deep Breathing done with encouragement -- -- Activity Activity Type -- ambulated to bathroom -- Positioning Head of Bed (HOB) -- HOB at 20-30 degrees -- Intervention: Monitor/Manage Pain 10/18/16199910/18/16204410/19/16125 Manage Acute Burn Pain Bowel Intervention -- -- adequate fluid intake promoted Pain Management Interventions -- pain management plan reviewed with patient/caregiver -- Safety Interventions Medication Review/Management medications reviewed;provider consulted -- -- Intervention: Adjust Diet to Patient Tolerance 10/19/16125 Monitor/Manage Hypovolemia Nausea/Vomiting Interventions slow deep breathing encouraged;sips clear liquids given Intervention: Prevent/Manage DVT/VTE Risk 10/18/161999 Support Surgical/Anesthesia Recovery VTE Prevention/Management ambulation promoted;sequential compression devices on Goal: Signs and Symptoms of Listed Potential Problems Will be Absent, Minimized or Managed (Cholecystitis/Cholecystectomy) Signs and symptoms of listed potential problems will be absent, minimized or managed by discharge/transition of care (reference Cholecystitis/Cholecystectomy (Adult) CPG). Outcome: Ongoing (Interventions Implemented as Appropriate) 10/19/16125 Cholecystitis/Cholecystectomy Problems Assessed (Cholecystitis/Cholecystectomy) all Problems Present (Cholecystitis/Cholecystectomy) nausea and vomiting;pain;situational response * Op Note - Tasia Stinson MD - 10/18/2016 4:17 PM EDT [facility] [place] Operative Note Patient Name: Rafael Willoughby : [id number] MR#: [id number] Case Date: 10/18/2016 Surgeon: Surgeon(s) and Role: * Tasia Stinson MD - Primary * Ronaldo Ga MD - Resident-Surgeon Chief Preoperative diagnosis: cholecystitis Postoperative diagnosis: cholecystitis Procedure(s) (LRB): LAPAROSCOPIC CHOLECYSTECTOMY WITH CHOLANGIOGRAM (WRVU 11.47) (N/A) MODIFIER 22 Anesthesia: General Estimated Blood Loss: 300 mL Specimens removed during surgery: Gallbladder Drains: none Surgical Closure: Primary Closure - closure of ALL tissue levels during the original surgery regardless of wires, wickes, drains, or other devices extruding through the incision Disposition: awakened from anesthesia, extubated and taken to the recovery room in a stable condition, having suffered no apparent untoward event. Condition: doing well without problems (Please see the Surgical Encounter Summary for any Implant and Specimen details pertinent to this patient.) HPI/Surgical Indications: 55F with 4 days of progressive RUQ pain, leukocytosis and sonographic findings consistent with cholecystitis. Procedure Description: The patient was brought to the OR and placed supine. General anasthesia and intubation were uneventful. A owen catheter was placed. The abdomen was prepped and draped. Trisha-op abx (Zosyn) was given.SCDs and heparin 5000u were placed for DVT prophylaxis. A timeout was performed verifying the correct patient and procedure. An incision was made above the umbilicus and the fascia was grasped between two Fara clamps. The fascia was opened with the cautery and the peritoneum was bluntly entered. 0 vicryl suture was placed on either side of the fascial opening. A 12mm Robison trocar was placed into the abdomen under direct visualization. The abdomen was insufflated to 15 mmHg pressure with CO2. A 10mm 30 degree scope was brought into the abdomen. All remaining trocars were inserted under direct visualization. The next trocar was a 11 mm trocar placed in the midline just below the xiphoid. Two 5 mm trocars were placed in the RUQ with care to stay away from the morphine pump which was in the right lateral mid abdomen subcutaneous space. The gallbladder was not identified on initial inspection in the RUQ. Omental adhesions and the transverse colon were bluntly dissected off the liver and then gallbladder. The gallbladder was distended, indurated and tense. A grasping forceps was placed on the fundus of the gallbladder and the gallbladder was retracted cephalad. This manipulation alone caused a holed in the gallbladder with evacuation of pus (cultured). Using appropriate grasping instruments, the thickened peritoneum overlying the triangle of Calot was incised medially and laterally to allow mobility of the gallbladder infindibulum. The cystic duct and cystic artery were identified and the critical view was obtained after tedious dissection. A clip was placed proximally on the duct and a ductotomy was made. A cholangiogramrevealed a long cystic duct; a dilated CBD with filling of the left and right hepatic ducts. The CBD was dilated and the duodenum filled with contrast. There was a question of a filling defect vs artifact in the CBD. Given normal LFts and filling of the duodenum no further intervention was pursued.The cystic duct was clipped twice proximally and transected. The cystic artery was also divided following clip placements. Next the gallbladder was released from the hepatic fossa using cautery. Nextthe gallbladder was placed into an endocatch bad and removed thorugh the umbilical trochar. The fascial incision had to be extended inferiorly for removal of the specimen. The fossa was irrigated andhemostasis was achieved using cautery. No bile was noted. Upon irrigation above and lateral tot he liver, a rather large stone was identified and also extracted from the umbilical trochar. The umbilical trochar site was closed with Uriel-Sarah technique using two 0-0 vicryl sutures. Given the pa tieluciano's morbid obesity and ongoing symptoms for 4 days, the case took more than double the amount of time as a traditional cholecystectomy as tedious dissection of dense adhesions was necessary. The remaining trochars were removed under direct visualization. The skin was closed with 4-0monocryl and dermabond was applied. All counts were correct at the end of the case. The patient was extubated in the OR and returned to the recovery area in stable condition. Dr. Stinson was present for the entire procedure ?? Infection Bundle used? N/A Attestation: Case Date: 10/18/2016 I was present and I participated during the entire procedure (does not need to include opening and closing). RONALDO GA MD 10/18/2016 Attestation: Case Date: 10/18/2016 I was present and I participated during the entire procedure (does not need to include opening and closing). TASIA STINSON MD 10/18/2016 * Brief Op Note - Tasia Stinson MD - 10/18/2016 4:13 PM EDT Brief Operative Note Patient Name: Rafael Willoughby : [id number] MR#: [id number] Case Date: 10/18/2016 Surgeon: Surgeon(s) and Role: * Tasia Stinson MD - Primary * Ronaldo Ga MD - Resident-Surgeon Chief Preoperative diagnosis: cholecystitis Postoperative diagnosis: cholecystitis Procedure(s) (LRB): LAPAROSCOPIC CHOLECYSTECTOMY WITH CHOLANGIOGRAM (WRVU 11.47) (N/A) Anesthesia: General Findings: Distended, indurated and distended gallbladder filled with pus. No obvious stones seen in the CBD noted on cholangiogram. Filling on of the duodenum. Complications: none Fluids: 1.8L cystalloid Estimated Blood Loss: 300 mL Drains: none Disposition: awakened from anesthesia, extubated and taken to the recovery room in a stable condition, having suffered no apparent untoward event. Condition: doing well without problems Infection Bundle used? N/A Attestation: Case Date: 10/18/2016 I was present and I participated during the entire procedure (does not need to include opening and closing). TASIA STINSON MD 10/18/2016 * Plan of Care - Salina Johnson RN - 10/18/2016 5:40 AM EDT Problem: Patient Care Overview Goal: Plan of Care Review Outcome: Ongoing (Interventions Implemented as Appropriate) 10/18/16 0538 Coping/Psychosocial Plan Of Care Reviewed With patient Plan of Care Review Progress improving OUTCOME EVALUATION NOTE: Pt slept well through the night. OUTCOME SUMMARY: Preparing for surgery today PLAN MOVING FORWARD: Surgery / pain control INDIVIDUALIZED FALL PREVENTION INTERVENTIONS:sba Patient-specific fall risk factors per assessment: [current deficits]: meds Assistance [level of assistance required for transfers and ambulation]: sba Supervision [direct monitoring required during toileting and ADLs]: Eyes on Surveillance [continuous indirect monitoring]: masnazanino Patient-specific fall prevention interventions for sensory deficits provided, if applicable: CPG GOAL OUTCOME EVALUATION: * ED Triage - Imelda Jackson RN - 10/17/2016 9:15 AM EDT Patient presents to ED AAOx4 reporting 8/10 RUQ abd pain, nausea, vomiting x1 week. Denies chest pain, SOB, diarrhea, cough, chills. Skin PWD. Respirations even and unlabored. Patient appears tearfuland anxious. VSS. Will continue to monitor. documented in this encounter Plan of Treatment Upcoming Encounters Date Type Department Care Team (Latest Contact Info) Description 04/06/2024 11:30 AM EST Hospital Encounter [place] [address] Cadence Eric MD [facility] [place] [address] 04/06/2024 11:30 AM EST - 04/06/2024 12:50 PM EST Surgery [place] [address] Cadence Eric MD [facility] [place] [place] [address] IMPLANT NEUROSTIMULATOR ELECTRODES, PERIPHERAL NERVE (WRVU 5.76) 04/14/2024 2:30 PM EST Office Visit [facility] [place] [address] Cadence Eric MD [facility] [place] [place] [address] Scheduled Procedures Name Priority Associated Diagnoses Date/Ti [...] Procedure Name Priority Date/Time Associated Diagnosis Comments C SOFTWARE ENGINEER SCAN 10/21/2016 12:00 AM EDT LAPAROSCOPIC CHOLECYSTECTOMY WITH CHOLANGIOGRAM Routine 10/20/2016 9:09 AM EDT SCAN, PERIPHERAL BLOOD Routine 7 1:49 AM EDT HEMOGRAM Routine 10/20/2016 1:49 AM EDT DIFFERENTIAL, AUTOMATED Routine 10/21/19 17 1:49 AM EDT CBC (WITH DIFF) Routine 10/20/2016 1:49 AM EDT HEMOGRAM Routine 10/19/2016 2:14 AM EDT DIFFERENTIAL, AUTOMATED Routine 10/20/19 17 2:14 AM EDT CBC (WITH DIFF) Routine 10/19/2016 2:14 AM EDT COMPREHENSIVE METABOLIC PANEL Routine 10/19/2016 2:14 AM EDT SPECIMEN TO PATHOLOGY Routine 10/18/2016 3:34 PM EDT SURGICAL PATHOLOGY REPORT Routine 10/18/2016 3:32 PM EDT XR FLUORO NO RAD <1HR - OR USE Routine 10/18/2016 2:44 PM EDT ANAEROBIC CULTURE Routine 10/18/2016 1:4 0 PM EDT BODY FLUID CULTURE, AEROBIC & ANAEROBIC Routine 10/18/2016 1:40 PM EDT BODY FLUID CULTURE, AEROBIC Routine 10/18/2016 1:40 PM EDT LAPAROSCOPIC CHOLECYSTECTOMY WITH CHOLANGIOGRAM (WRVU 11.47) 10/18/2016 11:09 AM EDT cholecystitis URINALYSIS WITH REFLEX CULTURE STAT 10/17/2016 4:00 PM EDT URINE CULTURE STAT 10/17/2016 4:00 PM EDT XR CHEST ONE VIEW STAT 10/17/2016 12: 09 PM EDT EKG 12-LEAD STAT 10/17/2016 11:56 AM EDT ABORH RECHECK STATUS STAT 10/17/2016 11:41 AM EDT ABO/RH TYPING STAT 10/17/2016 11:41 AM EDT ANTIBODY SCREEN STAT 10/17/2016 11:41 AM EDT TYPE AND SCREEN ([facility]/ESPINOZA) STAT 10/17/2016 11:41 AM EDT US ABDOMEN LIMITED STAT 10/17/2016 10 :23 AM EDT CMP W/FASTING GLUCOSE STAT 10/17/2016 9:59 AM EDT SCAN, PERIPHERAL BLOOD STAT 7 9:59 AM EDT HEMOGRAM STAT 10/17/2016 9:59 AM EDT DIFFERENTIAL, AUTOMATED STAT 10/18/19 17 9:59 AM EDT GOLD TUBE HOLD STAT 10/17/2016 9:59 AM EDT BLUE TUBE HOLD STAT 10/17/2016 9:59 AM EDT CBC (WITH DIFF) STAT 10/17/2016 9:59 AM EDT TROPONIN STAT 10/17/2016 9:59 AM EDT LIPASE STAT 10/17/2016 9:59 AM EDT LAPAROSCOPIC CHOLECYSTECTOMY WITH CHOLANGIOGRAM (WRVU 11.47) cholecystitis documented in this encounter Results * SCAN DOC: C SOFTWARE ENGINEER (10/21/2016 12:00 AM EDT) Anatomical Region Laterality Modality Other Narrative 10/21/2016 12:00 AM EDT Ordered by an unspecified provider. Scanning Provider MEDIA MGR SCAN EXT O RDR/RSLT * Scan, Peripheral Blood (10/20/2016 1:49 AM EDT) Plat estimate Normal [facility] RBC Morphology Normal [facility] Blood specimen (specimen) 10/20/2016 1:49 AM EDT 10/20/2016 2:04 AM EDT Narrative Resulting Agency Comment Spec In Lab Maykel Poon MD HEMATOLOGY ORDERABLE S Performing Organization Address City/State/[facility] Co de Phone Number [facility] [place] [address] * (ABNORMAL) Differential, Automated (10/20/2016 1:49 AM EDT) Neutrophil % 71.8 % [facility] Neutrophil Absolute 10.52(H) 1.70 - 6.10 x10(3)/mc L [facility] Lymph % 13.5 % [facility] Lymphocytes Abs 2.0 0.9 - 3.2 x10(3)/mc L [facility] Monocyte % 11.7 % [facility] Monocyte Abs 1.7(H) 0.3 - 0.9 x10(3)/mc L [facility] Eos % 1.3 % [facility] Eosinophils Abs 0.2 0.0 - 0.4 x10(3)/mc L [facility] Basophil % 0.3 % [facility] Baso Absolute 0.0 0.0 - 0.1 x10(3)/mc L [facility] Immature Gran % 1.40 % [facility] Comment: Immature granulocytes(IG's)percentage and absolute count will include metamyelocytes, myelocytes, and promyelocytes. Blood smears from CBCs yielding IG's will be scanned manually for concordance. If this scan disagrees with the automated IG or if promyelocytes are noted, a manual differential will be performed. Immature Gran Absolute 0.21(H) 0.00 - 0.04 x10(3)/mc L [facility] Blood specimen (specimen) 10/20/2016 1:49 AM EDT 10/20/2016 2:04 AM EDT Narrative Resulting Agency Comment Spec In Lab Maykel Poon MD HEMATOLOGY ORDERABLE S [facility] [place] [address] * (ABNORMAL) Hemogram (10/20/2016 1:49 AM EDT) White Blood Cell 14.7(H) 4.0 - 9.5 x10(3)/mc L [facility] Red Blood Cell 3.82(L) 4.00 - 5.21 x10(6)/mc L [facility] Hemoglobin 11.2(L) 11.7 - 15.5 gm/dL [facility] Hematocrit 33.7(L) 35.7 - 45.8 % [facility] Mean Cell Volume 88.2 82.6 - 94.4 fL [facility] Mean Cell Hemoglobin 29.3 27.1 - 32.0 pg [facility] Mean Cell Hemoglobin Concentration 33.2 31.7 - 35.0 gm/dL [facility] Platelet 370(H) 145 - 357 x10(3)/mc L [facility] RDW Standard Deviation 43.2 37.0 - 46.0 fL [facility] RDW coefficient of variation 13.3 11.5 - 14.1 % [facility] Mean Platelet Volume 10.6 7.6 - 12.9 fL [facility] NRBC% auto 0.0 % [facility] NRBC Absolute 0.000 0.000 - 0.000 x10(3)/mc L [facility] Blood specimen (specimen) 10/20/2016 1:49 AM EDT 10/20/2016 2:04 AM EDT Narrative Resulting Agency Comment Spec In Lab Maykel Poon MD HEMATOLOGY ORDERABLE S [facility] [place] [address] * (ABNORMAL) Differential, Automated (10/19/2016 2:14 AM EDT) Neutrophil % 85.2 % [facility] Neutrophil Absolute 15.05(H) 1.70 - 6.10 x10(3)/ L [facility] Lymph % 5.7 % [facility] Lymphocytes Abs 1.0 0.9 - 3.2 x10(3)/ L [facility] Monocyte % 7.8 % [facility] Monocyte Abs 1.4(H) 0.3 - 0.9 x10(3)/ L [facility] Eos % 0.0 % [facility] Eosinophils Abs 0.0 0.0 - 0.4 x10(3)/[facility] Basophil % 0.2 % [facility] Baso Absolute 0.0 0.0 - 0.1 x10(3)/[facility] Immature Gran % 1.10 % [facility] Comment: Immature granulocytes(IG's)percentage and absolute count will include metamyelocytes, myelocytes, and promyelocytes. Blood smears from CBCs yielding IG's will be scanned manually for concordance. If this scan disagrees with the automated IG or if promyelocytes are noted, a manual differential will be performed. Immature Gran Absolute 0.19(H) 0.00 - 0.04 x10(3)/ L [facility] Blood specimen (specimen) 10/19/2016 2:14 AM EDT 10/19/2016 2:27 AM EDT Narrative Resulting Agency Comment Spec In Lab Maykel Poon MD HEMATOLOGY ORDERABLE S [facility] [place] [address] * (ABNORMAL) Hemogram (10/19/2016 2:14 AM EDT) Pathologist [facility] White Blood Cell 17.7(H) 4.0 - 9.5 x10(3)/[facility] Red Blood Cell 4.09 4.00 - 5.21 x10(6)/mc L [facility] Hemoglobin 11.8 11.7 - 15.5 gm/dL [facility] Hematocrit 35.8 35.7 - 45.8 % [facility] Mean Cell Volume 87.5 82.6 - 94.4 fL [facility] Mean Cell Hemoglobin 28.9 27.1 - 32.0 pg [facility] Mean Cell Hemoglobin Concentration 33.0 31.7 - 35.0 gm/dL [facility] Platelet 319 145 - 357 x10(3)/mc L [facility] RDW Standard Deviation 41.1 37.0 - 46.0 fL [facility] RDW coefficient of variation 12.8 11.5 - 14.1 % [facility] Mean Platelet Volume 10.7 7.6 - 12.9 fL [facility] NRBC% auto 0.0 % [facility] NRBC Absolute 0.000 0.000 - 0.000 x10(3)/mc L [facility] Blood specimen (specimen) 10/19/2016 2:14 AM EDT 10/19/2016 2:27 AM EDT Narrative Resulting Agency Comment Spec In Lab Maykel Poon MD HEMATOLOGY ORDERABLE S [facility] [place] [address] * (ABNORMAL) Comprehensive metabolic panel (non-fasting) (10/19/2016 2:14 AM EDT) Glucose 150 65 - 199 mg/dL [facility] Comment:Diabetes: >=200 mg/d L plus symptoms Blood Urea Nitrogen 8 8 - 18 mg/dL [facility] Creatinine 0.67(L) 0.70 - 1.20 mg/dL [facility] Comment: Please note that the pediatric reference intervals supplied above were not validated at [facility]. Results from pediatric patients should be interpreted in conjunction to the patient's age, height and muscle mass. Sodium 136 135 - 145 mmol/L [facility] Potassium 4.0 3.5 - 5.0 mmol/L [facility] Comment: Please note: ??Patients with WBC >100,000 may have falsely elevated Potassium levels. ??For accurate Potassium quantification in these patients send serum separator tube (gold top) for subsequent determinations. ??Contact the Clinical Chemistry Laboratory if there are any questions. Chloride 99 98 - 107 mmol/L [facility] Carbon Dioxide 22 22 - 31 mmol/L [facility] Anion Gap 15 5 - 15 mmol/L [facility] Calcium 8.5 8.5 - 10.5 mg/dL [facility] Protein, Total 6.9 6.1 - 8.0 gm/dL [facility] Albumin 2.9(L) 3.2 - 5.2 gm/dL [facility] Aspartate Aminotransferase 165(H) 0 - 30 unit/L [facility] Comment:result rechecked-rr Alanine Aminotransferase 129(H) 0 - 30 unit/L [facility] Comment:result rechecked-rr Alkaline Phosphatase 89 40 - 104 unit/L [facility] Bilirubin, Total 0.5 0.2 - 1.3 mg/dL [facility] Bilirubin, Direct 0.3 0.0 - 0.3 mg/dL [facility] Est Glomerular Filtration Rate >60 >=60 [facility] Comment: This estimated GFR (eGFR) value was calculated using the MDRD equation which has been validated on patients between the ages of 18 and 70. The MDRD should not be used to assess kidney function in patients < 18 years of age or in patients with extremes of body mass, or in patients with acute kidney failure. This value should be multiplied by 1.2 for patients. For further information please copy and paste the following links into your internet browser. [email or web address] [email or web address] Blood specimen (specimen) 10/19/2016 2:14 AM EDT 10/19/2016 2:27 AM EDT Narrative Resulting Agency Comment Spec In Lab Maykel Poon MD CHEMISTRY ORDERABLES Performing Organization Address [facility] Co de Phone Number [facility] [place] [address] * Specimen to Pathology (surgical or derm) (10/18/2016 3:34 PM EDT) AP Specimen 10/18/2016 3:34 PM EDT 10/18/2016 3:34 PM EDT Narrative [facility] - 10/18/2016 3:34 PM EDT Specimen requisition ordered. ??Separate Pathology report to follow Maykel Poon MD PATHOLOGY/CYTOLOGY O RDERABLES Performing Organization Address [facility] Co de Phone Number [facility] [place] [address] * Surgical Pathology Report (10/18/2016 3:32 PM EDT) Final Diagnosis [id number] ?Location: [facility]; [facility]; A The signing pathologist has (i) examined the relevant preparation(s) for the specimen(s) and (ii) rendered or confirmed the diagnosis(es). . ?Surgical Pathology DIAGNOSIS Gallbladder: Acute cholecystitis with full-thickness necrosis and abscess formation. Electronically signed by: ??Ana María DAWSON PhD, Yuan Cornell Verified: ??10/23/2016 ?Pathologist CLINICAL INFORMATION Specimen Submitted: A - Gall bladder Clinical History: Cholecystitis Clinical Diagnosis: Same SPECIMEN PROCESSING A - ??Labeled/Fixativ e: Gallbladder, fresh. Quantity/Size: Single, 10.5 x 4.8 x 3.2. Specimen Description: Partially disrupted but complete, cholecystectomy. External surface: Smooth, hyperemic with purulent exudate, dome shaped. One side with coarse, irregular, brown tissue. Lumen contents: None. Gallstones: None identified. Mucosa: Hyperemic, with purulent exudate. Wall: 0.5 cm, hyperemic and edematous. Duct: Patent, 0.3 cm. Ink Designation: Black ink designates the hepatic margin. Sections/Processi ng: Dumper sections of the gall bladder wall and cystic duct are submitted. (R1) ??njo 10/23/2016 5:12 PM EDT [facility] GALLBLADDER STRUCTURE / Unknown 10/18/2016 3:32 PM EDT 10/18/2016 3:32 PM EDT Tasia Snider MD PATHOLOGY/CYTOLO GY ORDERABLES Performing Organization Address [facility] Co de Phone Number [facility] [place] [address] * XR Fluoro No Rad <1Hr - OR Use (10/18/2016 2:44 PM EDT) Narrative RAD - 10/18/2016 2:45 PM EDT This order does not need a radiologist interpretation. ?? Maykel Poon MD IMG FLUORO ORDERABLE S Performing Organization Address [facility] Co de Phone Number [place], [place] * Anaerobic Culture (10/18/2016 1:40 PM EDT) Anaerobic Culture No anaerobic organisms isolated [facility] Fluid specimen (specimen) 10/18/2016 1:40 PM EDT 10/18/2016 4:49 PM EDT Comment:GALL BLADDER FLUID Narrative Resulting Agency Comment Spec In Lab Maykel Poon MD MICROBIOLOGY - GENER AL ORDERABLES Performing Organization Address [facility] Co de Phone Number [facility] [place] [address] * (ABNORMAL) Body fluid culture (10/18/2016 1:40 PM EDT) Body Fluid Culture Few Escherichia coli(A) [facility] Gram Stain Cytocentrifuge Gram Stain performed Many White Blood Cells seen Few Gram Negative Rods seen (A) [facility] Organism Escherichia coli(A) [facility] Organism Gram Negative Rods(A) [facility] Fluid specimen (specimen) 10/18/2016 1:40 PM EDT 10/18/2016 4:49 PM EDT Comment:GALL BLADDER FLUID Narrative Resulting Agency Comment Spec In Lab Organism Antibiotic Method Susceptibility Escherichia coli Amikacin MICROSCAN METHOD Sensitive Escherichia coli Ampicillin MICROSCAN METHOD Sensitive Escherichia coli Ampicillin + Sulbactam MICROSCAN METH OD Sensitive Escherichia coli Aztreonam MICROSCAN METHOD Sensitive Escherichia coli Cefazolin MICROSCAN METHOD Sensitive Escherichia coli Cefepime MICROSCAN METHOD Sensitive Escherichia coli Ceftazidime MICROSCAN METHOD Sensitive Escherichia coli Ceftriaxone MICROSCAN METHOD Sensitive Escherichia coli Cefuroxime MICROSCAN METHOD Sensitive Escherichia coli Ciprofloxacin MICROSCAN METHOD Sensitive Escherichia coli Gentamicin MICROSCAN METHOD Sensitive Escherichia coli Levofloxacin MICROSCAN METHOD Sensitive Escherichia coli Meropenem MICROSCAN METHOD Sensitive Escherichia coli Piperacillin/Tazobactam MICROSCAN MET HOD Sensitive Escherichia coli Tetracycline MICROSCAN METHOD Sensitive Escherichia coli Tigecycline MICROSCAN METHOD Sensitive Escherichia coli Tobramycin MICROSCAN METHOD Sensitive Escherichia coli Trimethoprim/Sulfa MICROSCAN METHOD Sensitive Maykel Poon MD MICROBIOLOGY - GENER AL ORDERABLES Performing Organization Address City/[facility]/ZIP Co de Phone Number [facility] [place] [address] * Urine culture (10/17/2016 4:00 PM EDT) Urine Culture No growth (Less than 1,000 cfu/ml). [facility] Urine specimen (specimen) 10/17/2016 4:00 PM EDT 10/17/2016 7:30 PM EDT Narrative Resulting Agency Comment Spec In Lab Ke Dumont DO MICROBIOLOGY - GENER AL ORDERABLES Performing Organization Address [facility]/ZIP Co de Phone Number [facility] [place] [address] * (ABNORMAL) Urinalysis with reflex Culture (10/17/2016 4:00 PM EDT) Glucose, Urine Dipstick Negative Negative mg/dL [facility] Protein, Urine Dipstick 30(A) Negative mg/dL [facility] Bilirubin, Urine Dipstick Negative Negative mg/dL [facility] Comment: Clinical correlation required for positive Urine Bilirubin results as false positive may occur with some drugs and drug related products. If a false positive is suspected a serum total bilirubin should be considered if clinically indicated. Urobilinogen, Urine Dipstick >=4.0(A) Normal mg/dL [facility] pH, Urn (dipstick) 7.0 5.0 - 8.0 [facility] Blood, Urine Dipstick Negative Negative mg/dL [facility] Ketone, Urine Dipstick Negative Negative mg/dL [facility] Nitrite, Urine Dipstick Negative Negative [facility] Leukocytes, Urine Dipstick Trace(A) Negative [facility] Appearance, Urine Dipstick Clear Clear [facility] Specific Hooks Urine Automated 1.014 1.002 - 1.030 [facility] Color, Urine Dipstick Yellow Yellow [facility] RBC, Urine 1 0 - 4 /HPF [facility] WBC, Urine 11(H) 0 - 5 /HPF [facility] Bacteria, Urine Rare(A) None /HPF [facility] Squamous Epithelial Cells Raw Data, Urine 1 <=4 /HPF [facility] Reflex to Culture Yes [facility] Urine specimen (specimen) 10/17/2016 4:00 PM EDT 10/17/2016 6:47 PM EDT Narrative Resulting Agency Comment Spec In Lab Ke Dumont DO URINE ORDERABLES [facility] [place] [address] * XR Chest PA or AP 1 view (10/17/2016 12:09 PM EDT) Anatomical Region Laterality Modality Chest N/A Digital Radiogra phy Impressions 10/17/2016 12:58 PM EDT Bibasilar atelectasis. Equivocal trace left pleural effusion. Narrative 10/17/2016 12:58 PM EDT EXAMINATION: XR CHEST PA OR AP 1 VIEW CLINICAL HISTORY: hypoxic to low 90s on RA. going to OR for acute cholecystitis. Need to eval for PNA, CHF, other processes prior to intubation TECHNIQUE: Portable AP chest radiograph on ??10/17/2016 at 1205 hours. COMPARISON: None. FINDINGS: Low lung volumes are shallow inspiration with atelectasis at the lung bases. Otherwise, the lungs appear clear and symmetrically expanded. Equivocal trace left effusion. No pneumothorax seen. The cardiomediastinal silhouette and pulmonary vessel markings within normal limits. Procedure Note Shayla Macias MD - 10/17/2016 EXAMINATION: XR CHEST PA OR AP 1 VIEW CLINICAL HISTORY: hypoxic to low 90s on RA. going to OR for acutecholecystitis. Need to eval for PNA, CHF, other processes prior to intubation TECHNIQUE: Portable AP chest radiograph on 10/17/2016 at 1205 hours. COMPARISON: None. FINDINGS: Low lung volumes are shallow inspiration with atelectasis at thelung bases. Otherwise, the lungs appear clear and symmetrically expanded.Equivocal trace left effusion. No pneumothorax seen. The cardiomediastinalsilhouette and pulmonary vessel markings within normal limits. IMPRESSION Bibasilar atelectasis. Equivocal trace left pleural effusion. Ke Dumont DO IMG DX ORDERABLES * EKG 12 Lead (10/17/2016 11:56 AM EDT) Ventricular rate 90 BPM MUSE SYSTEM Atrial Rate 90 BPM MUSE SYSTEM P-R Interval 160 ms MUSE SYSTEM QRS Duration 88 ms MUSE SYSTEM Q-T Interval 364 ms MUSE SYSTEM QTC Calculated (Bezet) 445 ms MUSE SYSTEM Calculated P Emery 38 degrees MUSE SYSTEM Calculated R Emery 18 degrees MUSE SYSTEM Calculated T Emery 37 degrees MUSE SYSTEM INTERPRETATION Normal sinus rhythm Poor R wave progression Possible Anterior infarct Abnormal ECG When compared with ECG of 27-SEP-2002 14:17, Poor R wave progression is new Confirmed by MD Eze, Wayne ([id number]) on 10/17/2016 4:46:20 PM MUSE SYSTEM 10/17/2016 11:5 6 AM EDT 10/17/2016 4:46 PM EDT Ke Dumont DO ECG ORDERABLES MUSE SYSTEM * ABORH Recheck Status (10/17/2016 11:41 AM EDT) ABORH Type Recheck Completed [facility] Blood specimen (specimen) 10/17/2016 11:41 AM EDT 10/17/2016 11:41 AM EDT Narrative Resulting Agency Comment Spec In Lab Ke Dumont DO BLOOD BANK LAB ORDER ALLAN Performing Organization Address City/[facility]/ZIP Co de Phone Number [facility] [place] [address] * Antibody screen (10/17/2016 11:41 AM EDT) Ab Screen Interp Negative [facility] Expires at [id number] on: 10/20/2016 [facility] Blood specimen (specimen) 10/17/2016 11:41 AM EDT 10/17/2016 11:41 AM EDT Narrative Resulting Agency Comment Spec In Lab Ke Dumont DO BLOOD BANK LAB ORDER ALLAN Performing Organization Address City/[facility]/ZIP Co de Phone Number [facility] [place] [address] * ABO/Rh Typing (10/17/2016 11:41 AM EDT) ABORH Type A Pos [facility] Blood specimen (specimen) 10/17/2016 11:41 AM EDT 10/17/2016 11:41 AM EDT Narrative Resulting Agency Comment Spec In Lab Ke Dumont DO BLOOD BANK LAB ORDER ALLAN [facility] [place] [address] * US Abdomen Limited (10/17/2016 10:23 AM EDT) Anatomical Region Laterality Modality Abdomen Ultrasound 10/17/2016 10:2 2 AM EDT Impressions 10/17/2016 10:36 AM EDT ??The gallbladder is abnormal. The wall is thickened andthere is pericholecystic fluid. Wall appears vascular. There is a positiveMurphy sign. There is a large volume of sludge. Stones are not identified butcould be obscured by the sludge. The appearance is suspicious for acutecholecystitis although it does not meet all the criteria.Hepatomegaly with increased echogenicity diffusely in the liver.The pancreas cannot be seen due to overlying bowel. ? Jaylene Hobbs MD Electronically Signed Final Report ?? 10/17/2016 10:35 am Narrative 10/17/2016 10:36 AM EDT Abdominal ? (Signed Final 10/17/2016 10:35 am) PATIENT INFO: ID #: ? [id number] ?: ??[birth year] (55 yrs) Name: ? RAFAEL WILLOUGHBY ? Visit Date: 10/17/2016 10:22 am PERFORMED BY: Performed By: ? Dulce Maria Mensah RDMS Attending: ?Faby DAWSON, Jaylene Brown Referred By: ?WOODY KAUFMAN Location: ? [place] SERVICE(S) PROVIDED: ??UABDLIM - Abdominal Limited Survey Single ? [id number] ??Organ or Quadrant - [id number] INDICATIONS: ??eval for acute cholecystiits. RUQ abd pain ------ LIVER: ------ Right Lobe Length: ?? 19.7 ?? cm Echogenicity/Echotexture: ?? Increased in echogenicity diffusely Comment: ?Hepatomegaly GALLBLADDER: Wall Thickness: ?Thickened and irregular and vascular Focal Tenderness: ?Positive Davila's sign Comment: ?Sludge BILIARY TRACT: Intrahepatic Ducts: ?? Normal Extrahepatic Ducts: ?? Normal Common Duct Size: ? 5.0 ? mm --------- PANCREAS: --------- Head: ? Poorly visualized due to overlying bowel Tail: ? Poorly visualized due to overlying bowel Body: ? Poorly visualized due to overlying bowel RIGHT KIDNEY: Size (cm) ?L: ??11.3 Cortical Thickness: ?Normal Cortical Echogenicity: ?? Normal Hydronephrosis: ?No sonographic evidence ---- IVC: ---- Normal in caliber where visualized. Procedure Note Jaylene Hobbs MD - 10/17/2016 Abdominal (Signed Final 10/17/2016 10:35 am) PATIENT INFO: ID #: [id number] : 62 (55 yrs) Name: RAFAEL WILLOUGHBY Visit Date: 10/17/2016 10:22 am PERFORMED BY: Performed By: Dulce Maria Mensah RDMS Attending: Jaylene Hobbs MD Referred By: WOODY KAUFMAN Location: [place] SERVICE(S) PROVIDED: UABDLIM - Abdominal Limited Survey Single [id number] Organ or Quadrant - [id number] INDICATIONS: eval for acute cholecystiits. RUQ abd pain ------ LIVER: ------ Right Lobe Length: 19.7 cm Echogenicity/Echotexture: Increased in echogenicity diffusely Comment: Hepatomegaly GALLBLADDER: Wall Thickness: Thickened and irregular and vascular Focal Tenderness: Positive Davila's sign Comment: Sludge BILIARY TRACT: Intrahepatic Ducts: Normal Extrahepatic Ducts: Normal Common Duct Size: 5.0 mm --------- PANCREAS: --------- Head: Poorly visualized due to overlying bowel Tail: Poorly visualized due to overlying bowel Body: Poorly visualized due to overlying bowel RIGHT KIDNEY: Size (cm) L: 11.3 Cortical Thickness: Normal Cortical Echogenicity: Normal Hydronephrosis: No sonographic evidence ---- IVC: ---- Normal in caliber where visualized. IMPRESSION The gallbladder is abnormal. The wall is thickened andthere is pericholecystic fluid. Wall appears vascular. There is a positiveMurphy sign. There is a large volume of sludge. Stones are not identified butcould be obscured by the sludge. The appearance is suspicious for acutecholecystitis although it does not meet all the criteria.Hepatomegaly with increased echogenicity diffusely in the liver.The pancreas cannot be seen due to overlying bowel. Jaylene Hobbs MD Electronically Signed Final Report 10/17/2016 10:35 am Woody Kaufman MD IMG US GEN ORDERABLE S * Scan, Peripheral Blood (10/17/2016 9:59 AM EDT) Plat estimate Normal [facility] RBC Morphology Normal [facility] Blood specimen (specimen) 10/17/2016 9:59 AM EDT 10/17/2016 10:18 AM EDT Narrative Resulting Agency Comment Spec In Lab Woody Kaufman MD HEMATOLOGY ORDERABLE S Performing Organization Address City/[facility]/ZIP Co de Phone Number [facility] [place] [address] * Lipase (10/17/2016 9:59 AM EDT) Lipase 12 0 - 60 unit/L [facility] Blood specimen (specimen) Venous Draw / Unknown 10/17/2016 9:59 AM EDT 10/17/2016 10:18 AM EDT Narrative Resulting Agency Comment Spec In Lab Woody Kaufman MD CHEMISTRY ORDERABLES Performing Organization Address City/[facility]/ZIP Co de Phone Number [facility] [place] [address] * Troponin T (10/17/2016 9:59 AM EDT) [facility] Troponin-T <0.03 <=0.03 ng/mL [facility] Comment: 0.03 ng/mL: Represents the 99th percentile upper reference limit for normals. >0.03 ng/mL: Elevated cardiac troponin T level indicative of myocardial damage. Diagnosis of acute, evolving or recent PR requires a typical rise and gradual fall of cTnT with at least ONE of the following: a) Ischemic symptoms b) Development of pathologic Q waves on the ECG c) ECG changes indicative of eschemia (S-T segment elevation/depression) d) Coronary artery intervention Serial bloods should be obtained for testing on admission, at 6 to 9 hrs and again at 12 to 24 hrs if earlier samples are negative and the clinical index of suspicion is high. Reference: [Myocardial infarction redefined? a consensus document of the Joint Society of Cardiology/[place] [employer] Committee for the redefinition of myocardial infarction. ??Journal of the [place] [employer] 2000; 36: 959-969] Blood specimen (specimen) Venous Draw / Unknown 10/17/2016 9:59 AM EDT 10/17/2016 10:18 AM EDT Narrative Resulting Agency Comment Spec In Lab Woody Kaufman MD CHEMISTRY ORDERABLES [facility] [place] [address] * Gold Tube HOLD (10/17/2016 9:59 AM EDT) [facility] Gold Hold Sample in lab. [facility] Blood specimen (specimen) Venous Draw / Unknown 10/17/2016 9:59 AM EDT 10/17/2016 10:19 AM EDT Woody Kaufman MD CHEMISTRY ORDERABLES [facility] [place] [address] * Blue Tube HOLD (10/17/2016 9:59 AM EDT) Pathologist [facility] Blue Hold Sample in lab. [facility] Blood specimen (specimen) Venous Draw / Unknown 10/17/2016 9:59 AM EDT 10/17/2016 10:18 AM EDT Woody Kaufman MD HEMATOLOGY ORDERABLE S [facility] [place] [address] * (ABNORMAL) Differential, Automated (10/17/2016 9:59 AM EDT) [facility] Neutrophil % 86.7 % [facility] Neutrophil Absolute 16.47(H) 1.70 - 6.10 x10(3)/mc L [facility] Lymph % 4.5 % [facility] Lymphocytes Abs 0.8(L) 0.9 - 3.2 x10(3)/ L [facility] Monocyte % 7.0 % [facility] Monocyte Abs 1.3(H) 0.3 - 0.9 x10(3)/mc L [facility] Eos % 0.2 % [facility] Eosinophils Abs 0.0 0.0 - 0.4 x10(3)/ L [facility] Basophil % 0.2 % [facility] Baso Absolute 0.0 0.0 - 0.1 x10(3)/ L [facility] Immature Gran % 1.40 % [facility] Comment: Immature granulocytes(IG's)percentage and absolute count will include metamyelocytes, myelocytes, and promyelocytes. Blood smears from CBCs yielding IG's will be scanned manually for concordance. If this scan disagrees with the automated IG or if promyelocytes are noted, a manual differential will be performed. Immature Gran Absolute 0.26(H) 0.00 - 0.04 x10(3)/mc L [facility] Blood specimen (specimen) 10/17/2016 9:59 AM EDT 10/17/2016 10:18 AM EDT Narrative Resulting Agency Comment Spec In Lab Woody Kaufman MD HEMATOLOGY ORDERABLE S Performing Organization Address City/[facility]/ZIP Co de Phone Number [facility] [place] [address] * (ABNORMAL) Hemogram (10/17/2016 9:59 AM EDT) White Blood Cell 19.0(H) 4.0 - 9.5 x10(3)/mc L [facility] Red Blood Cell 4.77 4.00 - 5.21 x10(6)/mc L [facility] Hemoglobin 14.0 11.7 - 15.5 gm/dL [facility] Hematocrit 41.8 35.7 - 45.8 % [facility] Mean Cell Volume 87.6 82.6 - 94.4 fL [facility] Mean Cell Hemoglobin 29.4 27.1 - 32.0 pg [facility] Mean Cell Hemoglobin Concentration 33.5 31.7 - 35.0 gm/dL [facility] Platelet 308 145 - 357 x10(3)/mc L [facility] RDW Standard Deviation 40.4 37.0 - 46.0 [facility] RDW coefficient of variation 12.6 11.5 - 14.1 % [facility] Mean Platelet Volume 10.9 7.6 - 12.9 [facility] NRBC% auto 0.0 % [facility] NRBC Absolute 0.000 0.000 - 0.000 x10(3)/ L [facility] Blood specimen (specimen) 10/17/2016 9:59 AM EDT 10/17/2016 10:18 AM EDT Narrative Resulting Agency Comment Spec In Lab Woody Kaufman MD HEMATOLOGY ORDERABLE S [facility] [place] [address] * (ABNORMAL) CMP w/fasting Glucose (10/17/2016 9:59 AM EDT) [facility] Signature Glucose Fasting 164(H) 65 - 99 mg/dL [facility] Comment: ?Fasting* Glucose Interpretive Criteria Normal ?65-99 mg/dL Impaired Fasting glucose ?100-125 mg/dL Consistent with Diabetes Mellitus ? >or= 126 mg/dL *Fasting is defined as no caloric intake for at least 8 hours In the absence of unequivocal hyperglycemia a plasma glucose value of >or= 126 mg/dL should be repeated on a subsequent day. Diagnosis and Classification of Diabetes Mellitus, Position Statement from the [place] [employer]. ??Diabetes Care, Volume 33, Supplement 1, May 2009 Blood Urea Nitrogen 11 8 - 18 mg/dL [facility] Creatinine 0.99 0.70 - 1.20 mg/dL [facility] Comment: Please note that the pediatric reference intervals supplied above were not validated at [facility]. Results from pediatric patients should be interpreted in conjunction to the patient's age, height and muscle mass. Sodium 133(L) 135 - 145 mmol/L [facility] Potassium 3.6 3.5 - 5.0 mmol/L [facility] Comment: Please note: ??Patients with WBC >100,000 may have falsely elevated Potassium levels. ??For accurate Potassium quantification in these patients send serum separator tube (gold top) for subsequent determinations. ??Contact the Clinical Chemistry Laboratory if there are any questions. Chloride 92(L) 98 - 107 mmol/L [facility] Carbon Dioxide 22 22 - 31 mmol/L [facility] Anion Gap 19(H) 5 - 15 mmol/L [facility] Calcium 9.3 8.5 - 10.5 mg/dL [facility] Protein, Total 8.3(H) 6.1 - 8.0 gm/dL [facility] Albumin 4.0 3.2 - 5.2 gm/dL [facility] Aspartate Aminotransferase 23 0 - 30 unit/L [facility] Alanine Aminotransferase 42(H) 0 - 30 unit/L [facility] Alkaline Phosphatase 68 40 - 104 unit/L [facility] Bilirubin, Total 0.7 0.2 - 1.3 mg/dL [facility] Bilirubin, Direct 0.3 0.0 - 0.3 mg/dL [facility] Est Glomerular Filtration Rate 58(L) >=60 [facility] Comment: This estimated GFR (eGFR) value was calculated using the MDRD equation which has been validated on patients between the ages of 18 and 70. The MDRD should not be used to assess kidney function in patients < 18 years of age or in patients with extremes of body mass, or in patients with acute kidney failure. This value should be multiplied by 1.2 for patients. For further information please copy and paste the following links into your internet browser. 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 Admitting Diagnoses Diagnosis Cholecystitis Cholecystitis, unspecified documented in this encounter Administered Medications Inactive Administered Medications - up to 3 most recent administrations Medication Order MAR Action Action Date Dose Rate Site acetaminophen (TYLENOL) tablet 1,000 mg 1,000 mg, Oral, EVERY 6 HOURS SCHEDULED, First dose on 10/20/16 at 1200, Until Discontinued, Maximum dose of acetaminophen is 4000 mg from all sources in 24 hours., Routine Given 10/20/2016 12:03 PM EDT 1,000 mg acetaminophen (TYLENOL) tablet 975 mg 975 mg, Oral, EVERY 6 HOURS SCHEDULED, First dose on Thu10/19/16 at 0000, Until Discontinued, Maximum dose of acetaminophen is 4000 mg from all sources in 24 hours., Routine Given 10/20/2016 5:40 AM EDT 975 mg Given 10/19/2016 11:12 PM EDT 975 mg Given 10/19/2016 5:53 PM EDT 975 mg amitriptyline (ELAVIL) tablet 125 mg 125 mg, Oral, NIGHTLY, First dose on Thu10/17/16 at 2100, Until Discontinued, Routine Given 10/19/2016 8:11 PM E DT 125 mg Given 10/18/2016 9:31 PM EDT 100 mg Given 10/17/2016 9:07 PM EDT 125 mg citalopram (CeleXA) tablet 40 mg 40 mg, Oral, DAILY, First dose on Thu10/17/16 at 1700, Until Discontinued, Routine Given 10/20/2016 9:15 AM EDT 40 mg Given 10/19/2016 9:02 AM EDT 40 mg Given 10/18/2016 9:37 AM EDT 40 mg docusate sodium (COLACE) capsule 100 mg 100 mg, Oral, 2 TIMES DAILY, First dose on Thu10/18/16 at 2100, Until Discontinued, Routine Given 10/20/2016 9:15 AM EDT 100 mg Given 10/19/2016 8:11 PM EDT 100 mg Given 10/19/2016 9:03 AM EDT 100 mg fenofibrate micronized (LOFIBRA) capsule 200 mg 200 mg, Oral, DAILY WITH BREAKFAST, First dose on Thu10/21/16 at 0800, Until Discontinued, Routine fentaNYL 50mcg/mL injection 25 mcg, Intravenous, EVERY 5 MIN PRN, Starting on Thu10/18/16 at 1238, Until Thu10/18/16 at 1935, Pain, for 1-4 pain score, for 1-4 pain score Hold for respiratory rate less than 10 per minute. Maximum dose: 250 mcg over one hour., PACU Recovery, Routine Given 10/18/2016 5:33 PM EDT 25 mcg Left Arm Given 10/18/2016 5:15 PM EDT 25 mcg Le ft Arm fentaNYL 50mcg/mL injection 50 mcg, Intravenous, EVERY 5 MIN PRN, Starting on 10/18/16 at 1238, Until 10/18/16 at 1935, Pain, for 5-10 pain score, for 5-10 pain score Hold for respiratory rate less than 10 per minute. Maximum dose: 250 mcg over one hour., PACU Recovery, Routine Given 10/18/2016 6:01 PM EDT 50 mcg Left Arm heparin (porcine) subcutaneous injection 5,000 Units 5,000 Units, Subcutaneous, EDGE TRIMMER TO O.R., 1 dose, On 10/18/16 at 0900, Routine Given 10/18/2016 9:39 AM EDT 5,000 Units heparin (porcine) subcutaneous injection 5,000 Units 5,000 Units, Subcutaneous, EVERY 8 HOURS, First dose on Thu10/19/16 at 0900, Until Discontinued, Routine Given 10/20/2016 9:15 AM EDT 5,000 Units Given 10/20/2016 12:26 AM EDT 5,000 Units Given 10/19/2016 5:52 PM EDT 5,000 Units HYDROmorphone (DILAUDID) injection 0.3 mg 0.3 mg, Intravenous, ONCE, 1 dose, On 10/18/16 at 2045, Routine Given 10/18/2016 8:45 PM EDT 0.3 mg HYDROmorphone (DILAUDID) injection 1 mg 1 mg, Intravenous, EVERY 2 HOURS PRN, Starting on Thu10/17/16 at 1040, Until Thu10/17/16 at 1258, Pain, STAT Given 10/17/2016 10:46 AM EDT 1 mg HYDROmorphone (DILAUDID) injection 1 mg 1 mg, Intravenous, EVERY 4 HOURS PRN, Starting on Thu10/17/16 at 1259, Until Thu10/17/16 at 1543, Pain, STAT Given 10/17/2016 3:33 PM EDT 1 mg ibuprofen (ADVIL;MOTRIN) tablet 600 mg 600 mg, Oral, EVERY 6 HOURS SCHEDULED, First dose on Thu10/20/16 at 1500, Until Discontinued, Administer orally with milk or food to minimize GI irritation. Maximum dose of 3200 mg from all sources in 24 hours, Routine Given 10/20/2016 2:56 PM EDT 600 mg ketorolac (TORADOL) injection 15 mg 15 mg, Intravenous, EVERY 6 HOURS SCHEDULED, 20 doses, First dose on Thu10/19/16 at 1200, Last dose on Thu10/24/16 at 0600, Routine Given 10/20/2016 5:40 AM EDT 15 mg Given 10/19/2016 11:11 PM EDT 15 mg Given 10/19/2016 5:53 PM EDT 15 mg lactated Ringers infusion 100 mL/hr, Intravenous, CONTINUOUS, Starting on Thu10/17/16 at 1219, Until 10/18/16 at 1628 New Bag 10/18/2016 7:26 AM EDT 100 mL/hr 100 mL/hr New Bag 10/17/2016 9:49 PM EDT 100 mL/hr 100 mL/hr Rate/Dose Verify 10/17/2016 2:44 PM EDT 100 mL/hr 100 mL/ hr lactated Ringers infusion 50 mL/hr, Intravenous, CONTINUOUS, Starting on Thu10/18/16 at 1645, Until 10/20/16 at 0739 New Bag 10/19/2016 11:11 PM EDT 50 mL/hr 50 mL/hr New Bag 10/19/2016 5:36 AM EDT 50 mL/hr 50 mL/hr New Bag 10/18/2016 4:36 PM EDT 50 mL/hr 50 mL/hr Le ft Arm levothyroxine (SYNTHROID) tablet 100 mcg 100 mcg, Oral, DAILY, First dose on Thu10/17/16 at 1700, Until Discontinued, Routine Given 10/20/2016 9:15 AM EDT 100 mcg Given 10/19/2016 9:04 AM EDT 100 mcg Given 10/18/2016 9:37 AM EDT 100 mcg ondansetron (ZOFRAN) injection 4 mg 4 mg, Intravenous, ONCE, 1 dose, On Thu10/17/16 at 1043, STAT Given 10/17/2016 10:46 AM EDT 4 mg ondansetron (ZOFRAN) injection 4 mg 4 mg, Intravenous, EVERY 30 MIN PRN, Starting on 10/18/16 at 1238, Until 10/18/16 at 1935, Nausea, May repeat 4 mg once in 30 minutes. If multiple antiemetics ordered, use ondansetron first and if ineffective use prochlorperazine second and if ineffective use promethazine, PACU Recovery Given 10/18/2016 5:53 PM EDT 4 mg Left Arm ondansetron (ZOFRAN) injection 4 mg 4 mg, Intravenous, EVERY 8 HOURS PRN, Starting on Thu10/18/16 at 2029, Until Thu10/20/16 at 1829, Nausea, STAT Given 10/18/2016 8:38 PM EDT 4 mg oxyCODONE (OxyCONTIN) CR tablet 10 mg 10 mg, Oral, EVERY 8 HOURS SCHEDULED, First dose on 10/18/16 at 2200, Until Discontinued, DO NOT CRUSH OR OPEN Give only if the patient is in a lot of pain otherwise stick to the 20 mg BID scheduled, Routine Given 10/19/2016 2:21 AM EDT 10 mg oxyCODONE (OxyCONTIN) CR tablet 20 mg 20 mg, Oral, EVERY 12 HOURS SCHEDULED (2 times per day), First dose on Thu10/18/16 at 2100, Until Discontinued, DO NOT CRUSH OR OPEN, Routine Given 10/20/2016 5:40 AM EDT 20 mg Given 10/19/2016 5:53 PM EDT 20 mg Given 10/19/2016 5:58 AM EDT 20 mg oxyCODONE (ROXICODONE) immediate release tablet 10 mg 10 mg, Oral, 3 TIMES DAILY PRN, Starting on Thu10/17/16 at 1541, Until 10/18/16 at 202, Pain Given 10/18/2016 6:00 PM EDT 10 mg Given 10/17/2016 9:07 PM EDT 10 mg oxyCODONE (ROXICODONE) immediate release tablet 10 mg 10 mg, Oral, EVERY 3 HOURS PRN, Starting on Thu10/19/16 at 0749, Until 10/20/16 at 1829, Pain, Routine Given 10/20/2016 12:17 PM EDT 10 mg Given 10/20/2016 9:15 AM EDT 10 mg Given 10/20/2016 5:40 AM EDT 10 mg oxyCODONE (ROXICODONE) immediate release tablet 20 mg 20 mg, Oral, 2 TIMES DAILY, First dose (after last modification) on Thu10/17/16 at 1800, Until Discontinued, Do not start patient with 15 mg dose. Do not give 15 mg if patient is opiate niave., Routine Given 10/18/2016 5:59 AM EDT 20 mg Given 10/17/2016 6:01 PM EDT 20 mg pantoprazole (PROTONIX) injection 40 mg 40 mg, Intravenous, DAILY, First dose on Thu10/17/16 at 2000, Until Discontinued Given 10/19/2016 9:01 AM EDT 40 mg Given 10/18/2016 9:38 AM EDT 40 mg Given 10/17/2016 8:38 PM EDT 40 mg pantoprazole (PROTONIX) tablet 40 mg 40 mg, Oral, DAILY, First dose on Thu10/20/16 at 0900, Until Discontinued, DO NOT CRUSH OR OPEN Given 10/20/2016 9:15 AM EDT 40 mg piperacillin-tazobactam (ZOSYN) 3.375 g vial attach to sodium chloride 0.9% 50 mL Mini-Bag Plus 3.375 g, Intravenous, EDGE TRIMMER TO O.R., 1 dose, On Thu10/18/16 at 0900, Administer over 4 Hours, Warning Vesicant/Irritant Medication , Indication for (Active or Suspected): GI/Intra-abdominal Given 10/18/2016 9:40 AM EDT 3.375 g 12.5 mL/hr piperacillin-tazobactam (ZOSYN) 3.375 g vial attach to sodium chloride 0.9% 50 mL Mini-Bag Plus 3.375 g, Intravenous, EVERY 8 HOURS, 3 doses, First dose on Thu10/18/16 at 1645, Last dose on Thu10/19/16 at 1500, Administer over 4 Hours, Warning Vesicant/Irritant Medication , Indication for (Active or Suspected): GI/Intra-abdominal Given 10/19/2016 2:05 PM EDT 3.375 g 12.5 mL/hr Given 10/19/2016 6:00 AM EDT 3.375 g 12.5 mL/hr Given 10/18/2016 11:48 PM EDT 3.375 g 12.5 mL/hr piperacillin-tazobactam (ZOSYN) 4.5 g vial attach to sodium chloride 0.9% 100 mL Mini-Bag Plus 4.5 g, Intravenous, ONCE, 1 dose, On 6/9/17 at 1100, Administer over 30 Minutes, Warning Vesicant/Irritant Medication , Indication for (Active or Suspected): GI/Intra-abdominal Given 10/17/2016 11:07 AM EDT 4.5 g 200 mL/hr senna (SENOKOT) tablet 17.2 mg 17.2 mg, Oral, 2 TIMES DAILY, First dose on Thu10/20/16 at 1200, Until Discontinued, Routine Given 10/20/2016 12:03 PM EDT 17.2 mg sodium chloride 0.9% 1,000 mL IV bolus at 4,000 mL/hr, Intravenous, ONCE, 1 dose, On Thu10/17/16 at 1043 Given 10/17/2016 10:46 AM EDT 4000 mL/hr documented in this encounter Active and Recently Administered Medications Times are shown in EDT. Scheduled Medication Order 10/18/2016 10/19/2016 10/20/2016 acetaminophen (TYLENOL) tablet 1,000 mg 1,000 mg, Oral, EVERY 6 HOURS SCHEDULED, First dose on Thu10/20/16 at 1200, Until Discontinued, Maximum dose of acetaminophen is 4000 mg from all sources in 24 hours., Routine 1203 (Given - Provider: Mirella Le RN) acetaminophen (TYLENOL) tablet 975 mg (CANCELED) 975 mg, Oral, EVERY 6 HOURS SCHEDULED, First dose on Thu10/19/16 at 0000, Until Discontinued, Maximum dose of acetaminophen is 4000 mg from all sources in 24 hours., Routine 2345 (Given - Provider: Marilia Do RN) 0558 (Given - Provider: Marilia Do RN)1148 (Given - Provider: Tiffanie Suarez RN)1753 (Given - Provider: Tiffanie Suarez RN)2312 (Given - Provider: Debbie Conroy, SONNY) 0540 (Given - Provider: Debbie Conroy, RN)0600 (Not Given - Provider: Debbie Conroy RN - Reason: Patient/family refused) amitriptyline (ELAVIL) tablet 125 mg 125 mg, Oral, NIGHTLY, First dose on Thu10/17/16 at 2100, Until Discontinued, Routine 1110 (MAR Hold - Provider: Admin Adt - Reason: Transfer to a Procedural area)1935 (MAR Unhold - Provider: Admin Adt)2131 (Given - Provider: Marilia Do RN - Comment: Patient only wants to take 100mg.) 2010 (Given - Provider: Debbie Conroy RN) citalopram (CeleXA) tablet 40 mg 40 mg, Oral, DAILY, First dose on Thu10/17/16 at 1700, Until Discontinued, Routine 0937 (Given - Provider: Tasia Arellano, SONNY)1110 (JUL Hold - Provider: Admin Adt - Reason: Transfer to a Procedural area)193 (JUL Unhold - Provider: Admin Adt) 09 (Given - Provider: Tiffanie Suarez RN) 0915 (Given - Provider: Mirella Le, SONNY) docusate sodium (COLACE) capsule 100 mg 100 mg, Oral, 2 TIMES DAILY, First dose on Thu10/18/16 at 2100, Until Discontinued, Routine 2132 (Given - Provider: Marilia Do RN) 902 (Given - Provider: Tiffanie Suarez RN)2010 (Given - Provider: Debbie Conroy RN) 0915 (Given - Provider: Mirella Le, SONNY) fenofibrate micronized (LOFIBRA) capsule 200 mg 200 mg, Oral, DAILY WITH BREAKFAST, First dose on Thu10/21/16 at 0800, Until Discontinued, Routine heparin (porcine) subcutaneous injection 5,000 Units (COMPLETED) 5,000 Units, Subcutaneous, EDGE TRIMMER TO O.R., 1 dose, On Thu10/18/16 at 0900, Routine 0939 (Given - Provider: Tasia Arellano RN) heparin (porcine) subcutaneous injection 5,000 Units 5,000 Units, Subcutaneous, EVERY 8 HOURS, First dose on Thu10/19/16 at 0900, Until Discontinued, Routine 09 (Given - Provider: Tiffanie Suarez RN)175 (Given - Provider: Tiffanie Suarez RN) 002 (Given - Provider: Debbie Conroy RN)0915 (Given - Provider: Mirella Le RN) HYDROmorphone (DILAUDID) injection 0.3 mg (COMPLETED) 0.3 mg, Intravenous, ONCE, 1 dose, On 10/18/16 at 2045, Routine 2044 (Given - Provider: Marilia Do, SONNY) ibuprofen (ADVIL;MOTRIN) tablet 600 mg 600 mg, Oral, EVERY 6 HOURS SCHEDULED, First dose on Thu10/20/16 at 1500, Until Discontinued, Administer orally with milk or food to minimize GI irritation. Maximum dose of 3200 mg from all sources in 24 hours, Routine 1456 (Given - Provider: Mirella Le, SONNY) ketorolac (TORADOL) injection 15 mg (CANCELED) 15 mg, Intravenous, EVERY 6 HOURS SCHEDULED, 20 doses, First dose on Thu10/19/16 at 1200, Last dose on Thu10/24/16 at 0600, Routine 1147 (Given - Provider: Tiffanie Suarez, SONNY)1753 (Given - Provider: Tiffanie Suarez RN)2311 (Given - Provider: Debbie Conroy, SONNY) 0540 (Given - Provider: Debbie Conroy RN) levothyroxine (SYNTHROID) tablet 100 mcg 100 mcg, Oral, DAILY, First dose on Thu10/17/16 at 1700, Until Discontinued, Routine 0937 (Given - Provider: Tasia Arellano RN)1110 (JUL Hold - Provider: Admin Adt - Reason: Transfer to a Procedural area)1935 (MAR Unhold - Provider: Admin Adt) 0904 (Given - Provider: Tiffanie Suarez RN) 0915 (Given - Provider: Mirella Le, SONNY) oxyCODONE (OxyCONTIN) CR tablet 10 mg (CANCELED) 10 mg, Oral, EVERY 8 HOURS SCHEDULED, First dose on 10/18/16 at 2200, Until Discontinued, DO NOT CRUSH OR OPEN Give only if the patient is in a lot of pain otherwise stick to the 20 mg BID scheduled, Routine 2200 (Not Given - Provider: Marilia Do RN - Reason: See comment - Comment: Patient having ok pain control now. Not needed.) 0221 (Given - Provider: Ирина Yanes RN) oxyCODONE (OxyCONTIN) CR tablet 20 mg 20 mg, Oral, EVERY 12 HOURS SCHEDULED (2 times per day), First dose on 10/18/16 at 2100, Until Discontinued, DO NOT CRUSH OR OPEN, Routine 213 (Given - Provider: Marilia Do, RN) 0558 (Given - Provider: Marilia Do, RN)1753 (Given - Provider: Tiffanie Suarez, SONNY) 0540 (Given - Provider: Debbie Conroy RN) oxyCODONE (ROXICODONE) immediate release tablet 20 mg (CANCELED) 20 mg, Oral, 2 TIMES DAILY, First dose (after last modification) on Thu10/17/16 at 1800, Until Discontinued, Do not start patient with 15 mg dose. Do not give 15 mg if patient is opiate niave., Routine 0559 (Given - Provider: Salina Johnson RN)1110 (JUL Hold - Provider: Admin Adt - Reason: Transfer to a Procedural area)1628 (JUL Unhold - Provider: Adelina Mayfield RN)1800 (Not Given - Provider: Adelina Mayfield RN - Reason: See comment - Comment: duplication) pantoprazole (PROTONIX) injection 40 mg (CANCELED) 40 mg, Intravenous, DAILY, First dose on Thu10/17/16 at 2000, Until Discontinued 0938 (Given - Provider: Tasia Arellano RN)1110 (JUL Hold - Provider: Admin Adt - Reason: Transfer to a Procedural area)1935 (JUL Unhold - Provider: Admin Adt) 0901 (Given - Provider: Tiffanie Suarez RN) pantoprazole (PROTONIX) tablet 40 mg 40 mg, Oral, DAILY, First dose on 10/20/16 at 0900, Until Discontinued, DO NOT CRUSH OR OPEN 0915 (Given - Provider: Mirella Le, SONNY) piperacillin-tazobactam (ZOSYN) 3.375 g vial attach to sodium chloride 0.9% 50 mL Mini-Bag Plus (COMPLETED) 3.375 g, Intravenous, EDGE TRIMMER TO O.R., 1 dose, On 10/18/16 at 0900, Administer over 4 Hours, Warning Vesicant/Irritant Medication , Indication for (Active or Suspected): GI/Intra-abdominal 0940 (Given - Provider: Tasia Arellano RN) piperacillin-tazobactam (ZOSYN) 3.375 g vial attach to sodium chloride 0.9% 50 mL Mini-Bag Plus (COMPLETED) 3.375 g, Intravenous, EVERY 8 HOURS, 3 doses, First dose on 10/18/16 at 1645, Last dose on 10/19/16 at 1500, Administer over 4 Hours, Warning Vesicant/Irritant Medication , Indication for (Active or Suspected): GI/Intra-abdominal 2010 (Canceled Entry - Provider: Marilia Do, SONNY - Reason: See comment - Comment: Trying to verify with pharmacy that patient received dose of Zosyn at 1530. Next dose should be due around 2330 then.)2348 (Given - Provider: Marilia Do, SONNY) 0411 (IV Stop - Provider: Marilia Do RN)0600 (Given - Provider: Marilia Do RN)1405 (Given - Provider: Tiffanie Suarez, SONNY) senna (SENOKOT) tablet 17.2 mg 17.2 mg, Oral, 2 TIMES DAILY, First dose on 10/20/16 at 1200, Until Discontinued, Routine 1203 (Given - Provider: Mirella Le, SONNY) Continuous Medication Order 10/18/2016 10/19/2016 10/20/2016 lactated Ringers infusion (CANCELED) 100 mL/hr, Intravenous, CONTINUOUS, Starting on Thu10/17/16 at 1219, Until 10/18/16 at 1628 0726 (New Bag - Provider: Salina Johnson, SONNY)1110 (JUL Hold - Provider: Admin Adt - Reason: Transfer to a Procedural area)1628 (MAR Unhold - Provider: Admin Adt) lactated Ringers infusion (CANCELED) 50 mL/hr, Intravenous, CONTINUOUS, Starting on 10/18/16 at 1645, Until 10/20/16 at 0739 1636 (New Bag - Provider: Adelina Mayfield, SONNY) 0535 (Stopped - Provider: Marilia oD RN)0536 (New Bag - Provider: Marilia Do, SONNY)2311 (New Bag - Provider: Debbie Conroy RN) PRN Medication Order 10/18/2016 10/19/2016 10/20/2016 BUpivacaine (PF) (MARCAINE) 0.25 % (2.5 mg/mL) injection (CANCELED) ONCE PRN, Starting on 10/18/16 at 1557, Until 10/20/16 at 1829, Intra-Operative (Intra-Procedure), Routine 1557 (Given - Provider: Tasia Snider MD) fentaNYL 50mcg/mL injection (CANCELED)(Linked Group 1) 25 mcg, Intravenous, EVERY 5 MIN PRN, Starting on 10/18/16 at 1238, Until 10/18/16 at 1935, Pain, for 1-4 pain score, for 1-4 pain score Hold for respiratory rate less than 10 per minute. Maximum dose: 250 mcg over one hour., PACU Recovery, Routine 1715 (Given - Provider: Adelina Mayfield RN)1733 (Given - Provider: Adelina Mayfield RN)1801 (See Alternative - Provider: Adelina Mayfield RN) fentaNYL 50mcg/mL injection (CANCELED)(Linked Group 1) 50 mcg, Intravenous, EVERY 5 MIN PRN, Starting on 10/18/16 at 1238, Until 10/18/16 at 1935, Pain, for 5-10 pain score, for 5-10 pain score Hold for respiratory rate less than 10 per minute. Maximum dose: 250 mcg over one hour., PACU Recovery, Routine 1715 (See Alternative - Provider: Adelina Mayfield RN)1733 (See Alternative - Provider: Adelina Mayfield, SONNY)1801 (Given - Provider: Adelina Mayfield RN) iohexol (OMNIPAQUE) 300 mg/mL solution (CANCELED) ONCE PRN, Starting on 10/18/16 at 1451, Until 10/20/16 at 1829, Intra-Operative (Intra-Procedure), Routine 1451 (Given - Provider: Tasia Snider MD - Comment: bile duct) ondansetron (ZOFRAN) injection 4 mg (CANCELED) 4 mg, Intravenous, EVERY 30 MIN PRN, Starting on 10/18/16 at 1238, Until 10/18/16 at 1935, Nausea, May repeat 4 mg once in 30 minutes. If multiple antiemetics ordered, use ondansetron first and if ineffective use prochlorperazine second and if ineffective use promethazine, PACU Recovery 1753 (Given - Provider: Adelina Mayfield, SONNY) ondansetron (ZOFRAN) injection 4 mg 4 mg, Intravenous, EVERY 8 HOURS PRN, Starting on 10/18/16 at 2029, Until 10/20/16 at 1829, Nausea, STAT 203 (Given - Provider: Marilia Do, SONNY) oxyCODONE (ROXICODONE) immediate release tablet 10 mg (CANCELED) 10 mg, Oral, 3 TIMES DAILY PRN, Starting on 10/17/16 at 1541, Until 10/18/16 at 2029, Pain 1110 (MAR Hold - Provider: Admin Adt - Reason: Transfer to a Procedural area)1628 (MAR Unhold - Provider: Adelina Mayfield, SONNY)1800 (Given - Provider: Adelina Mayfield RN) oxyCODONE (ROXICODONE) immediate release tablet 10 mg 10 mg, Oral, EVERY 3 HOURS PRN, Starting on Thu10/19/16 at 0749, Until 10/20/16 at 1829, Pain, Routine 0811 (Given - Provider: Tiffanie Suarez RN)1300 (Given - Provider: Tiffanie Suarez, SONNY)1606 (Given - Provider: Tiffanie Suarez RN)2011 (Given - Provider: Debbie Conroy, SONNY)2312 (Given - Provider: Debbie Conroy, SONNY) 0540 (Given - Provider: Debbie Conroy, RN)0915 (Given - Provider: Mirella Le, RN)1217 (Given - Provider: Mirella Le, RN) Linked Groups Order Group 1: fentaNYL 50mcg/mL injection (CANCELED)Jump to med 25 mcg, Intravenous, EVERY 5 MIN PRN, Starting on 10/18/16 at 1238, Until 10/18/16 at 1935, Pain, for 1-4 pain score, for 1-4 pain score Hold for respiratory rate less than 10 per minute. Maximum dose: 250 mcg over one hour., PACU Recovery, Routine Or fentaNYL 50mcg/mL injection (CANCELED)Jump to med 50 mcg, Intravenous, EVERY 5 MIN PRN, Starting on 10/18/16 at 1238, Until 10/18/16 at 1935, Pain, for 5-10 pain score, for 5-10 pain score Hold for respiratory rate less than 10 per minute. Maximum dose: 250 mcg over one hour., PACU Recovery, Routine documented in this encounter Care Teams Pad Hand Relationship Specialty Start Date End Date Bob Day MD [address] [place] [address] PCP - General Family Medicine 12/21/15 06/04/17 documented as of this encounter
--- OUTSIDE RECORDS SUMMARY | 2024-04-05 16:33 | XMS_ITS | Encounter Summary ---
Author Organization [facility] Address [facility] [place] [address] Care Team Providers Care Sane Rn Name Role Phone Brisa Christine MD Primary Care Provider Reason for Visit * Reason Comments Pain Management Back Pain lower Encounter Details Date Type Department Care Team (Latest Contact Info) Description 08/20/2017 2:30 PM EDT Procedure [place] [address] Nate Chopra MD [facility] [place] [address] Postlaminectomy syndrome (Primary Dx) Social History Tobacco Use Types [...] Sign Reading Time Taken Comments Blood Pressure 119/61 08/20/2017 2:30 PM EDT Pulse 88 08/20/2017 2:30 PM EDT Temperature - - Respiratory Rate - - Oxygen Saturation 96% 08/20/2017 2:30 PM EDT Inhaled Oxygen Concentration - - Weight 102.1 kg (225 lb) 08/20/2017 2:23 PM EDT Height 142.2 cm (4' 8) 08/20/2017 2:23 PM EDT Body Mass Index 50.44 08/20/2017 2:23 PM EDT documented in this encounter Patient Instructions * Patient Instructions* Salina England LPN - 08/20/2017 2:30 PM EDT Pain Management Center Discharge Instructions: You were seen by Dr. Nate Chopra MD and Cadence Eric MD who performed pain management pumprefill. It is normal that the injection site will be sore for up to 48 hours. You may also experience mild stiffness in the joint near the injection site. [x] You may resume your normal activities: tomorrow. [...] your procedure. You received the following medications: morphine 10 mg/ml (40ml). During regular business hours, please phone the [...] or proceed to your local emergency department. Salina England LPN documented in this encounter Progress Notes * Salina England LPN - 08/20/2017 2:30 PM EDT Pre-Procedure Screening Questions: 1. Status: No 2. Patient states they have a drive away driver to transport after procedure? No 3. Patient taking antibiotics at present? No 4. NPO per Pain Management Center protocol? No 5. Patient diabetic: Yes, borderline 6. Patient routinely taking anticoagulants ? No Patient Vital Signs documented in Doc Flowsheets associated with this encounter. Patient Discharge Instructions were reviewed with patient and copy provided to patient. * Cadence Eric - 08/20/2017 2:30 PM EDT INTRATHECAL PUMP REFILL PROCEDURE NOTE WITH REPROGRAMMING Primary Automobile Body Repair Chief: Cadence Eric MD Bench Grinder: Nate Chopra MD Reason for Reprogramming: Refill Diagnosis: Postlaminectomy syndrome. Concomitant Medical Problems: Telemetry Pre-Refill Programming Reading: Drugs/Concentrations: Morphine - Preservative Free - 10 mg/ml Daily Dose: 4.5 mgs per day Telemetry Post-Refill Programming Reading: Drugs/Concentrations: Morphine - Preservative Free - 10 mg/ml Daily Dose: 4.5 mg's per day Brand/Compound: Compound. Pump Capacity: 40 mL Computer predicted residual volume in pump: 5.9 mL Measured residual volume in pump: 8 mL Medication or Dose Changes: no Is dose change >30%? n/a Is concentration of drug different? no Empty syringe concentration verified by furnace checker: yes If concentration of drug is different, has a bridge bolus been programmed? no, n/a. Has any program been used other than simple continuous or bridge bolus and simple continuous? no Infusion Mode: simple continuous. New Alarm Date: 01/28/17 PROCEDURE: Risks and expected side effects were reviewed with patient and her voiced concerns addressed. The printed consent form was signed and witnessed. The following information was verified: ?? Patient Name on RX: yes ?? Drug Name on RX:yes ?? Drug concentration on syringe containing pump refill medication: yes Fluoroscopy was used to identify and accessed pump. The pump was accessed via telemetry and the computer predicted residual volume was noted as per above. Then Chlorhexidine prep over the pump refill site was performed. Sterile drapes were applied as provided with the [employer] refill kit. A 22 gauge Moraes non-coring [...] less than 0.5 ml. A total of 39 ml of solution was instilled into the pump according to the poly packer and heat sealer's directions without difficulty. There was no evidence of over pressurization at the conclusion of the filling process. The Moraes needle was withdrawn and a Band-Aid was applied. The pump was then re-accessed via telemetry and reprogr ammed to indicate the refill volume of 39 ml. The unused portion of the medication was discarded along with the old drug aspirated. Battery alarms reviewed and were appropriately enabled and in working order. Patient tolerated the procedure well and was discharged from the Pain Management Center. Follow-up appointments will be arranged for refills as appropriate. Cadence Eric MD Pain Fellow This procedure was done under the direct supervision of Dr Chopra, attending physician * Nate Chopra MD - 08/20/2017 2:30 PM EDT I have seen and examined the patient and reviewed the fellow's above history and I agree with the details as written. I was the attending physician supervising the fellow in the above care and I was present with the fellow for the entire procedure. Nate Chopra MD, MS Housing Quality Standard Inspector of Anesthesiology [facility] [employer] [address] [address] / [facility] documented in this encounter Plan of Treatment Upcoming Encounters Date Type Department Care Team (Latest Contact Info) Description 04/06/2024 11:30 AM EST Hospital Encounter [facility] [place] [address] Cadence Eric MD [facility] [place] [address] 04/06/2024 11:30 AM EST - 04/06/2024 12:50 PM EST Surgery [facility] [place] [address] Cadence Eric MD [facility] [place] [address] IMPLANT NEUROSTIMULATOR ELECTRODES, PERIPHERAL NERVE (WRVU 5.76) 04/14/2024 2:30 PM EST Office Visit [place] [address] Cadence Eric MD [facility] [place] [address] Scheduled Orders Name Type Priority Associated Diagnoses Orde r Schedule INTRATHECAL PUMP REFILL Procedures Routine Postlaminectomy syndrome Ordered: 08/20/2017 Scheduled Procedures Name Priority Associated Diagnoses Date/Ti [...] Postlaminectomy syndrome- Primary Postlaminectomy syndrome, unspecified region Saphenous neuralgia, right documented in this encounter Care Teams Sane Rn Relationship Specialty Start Date End Date Brisa Christine MD PCP - General Internal Medicine 06/05/17 01/17/18 documented as of this encounter
--- OUTSIDE RECORDS SUMMARY | 2024-04-05 16:33 | XMS_ITS | Encounter Summary ---
Author Organization [facility] [place] [address] Care Team Providers Care Dietary Assistant Name Role Phone Bob Day MD Primary Care Provider [phone] Reason for Visit * Reason Comments Follow-up Follow Up Surgery Encounter Details Date Type Department Care Team (Late st Contact Info) Description 11/13/2016 1:15 PM EDT Office [place] [address] Gissell Biswas, ROVING MACHINE OPERATOR [facility] [address] Calculus of gallbladder with acute cholecystitis without obstruction Social History Tobacco Use Types Packs/Day Years [...] as of this encounter Progress Notes * Gissell Biswas APRN - 11/13/2016 1:15 PM EDT Etelvina Cuadra returns to clinic today for a hospital check. She is s/p lap cholecystectomy performed by on 10/18/16. She states She is doing well postoperatively, and is not needing acute pain medication. She is on chronic narcotics for post laminectomy pain. She denies fever or chills.She has some discomfort in her RUQ.her apetite is better. Bowels moving well after MOM and miralax. She has no other complaints at this time. On Physical examination, she looks well and is in NAD.Sclera are anicteric. The trocar incisions are intact without disruption, erythema or drainage. Assessment: S/P lap merry. Doing well, no evidence of cellulitis or wound disruption.Not systemically ill. Plan: Will return in follow up with Dr. Umaña on a PRN basis.She agrees to call with new pain, fever or jaundice. She agrees with this plan. documented in this encounter Plan of Treatment Upcoming Encounters Date Type Department Care Team (Latest Contact Info) Description 04/06/2024 11:30 AM EST Hospital Encounter Outpatient [place] [address] Cadence Eric MD [facility] [place] [address] 04/06/2024 11:30 AM EST - 04/06/2024 12:50 PM EST Surgery [facility] [place] [address] Cadence Eric MD [facility] PA[place] [address] IMPLANT NEUROSTIMULATOR ELECTRODES, PERIPHERAL NERVE (WRVU 5.76) 04/14/2024 2:30 PM EST Office Visit [place] [address] Cadence Eric MD [facility] PA[place] [address] Scheduled Procedures Name Priority Associated Diagnoses Date/Ti me IMPLANT NEUROSTIMULATOR ELECTRODES, PERIPHERAL NERVE (WRVU 5.76) Yes Saphenous neuralgia, right 04/06/2024 11:30 AM EST IMPLANT NEUROSTIMULATOR ELECTRODES, PERIPHERAL NERVE (WRVU 5.76) Saphenous neuralgia, 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
--- OUTSIDE RECORDS SUMMARY | 2024-04-05 16:33 | XMS_ITS | Encounter Summary ---
Author Organization [facility] Address [facility] [address] [place] [address] Care Team Providers Care High Lift Mule Operator Name Role Phone Brisa Christine MD Primary Care Provider Encounter Details Date Type Department Care Team (Latest Contact Info) Description 11/06/2017 11:37 AM EDT - 11/06/2017 11:59 PM EDT Hospital Encounter XRay at [address] [place] [address] Karl Becker MD [facility] [place] [address] Post laminectomy syndrome; Disorder of sacrum Discharge Disposition: Home Social History Tobacco Use [...] MEDICAL CENTER Hospital Encounter [place] [address] Cadence Eric MD [facility] [place] [address] 04/06/2024 11:30 AM EST - 04/06/2024 12:50 PM EST Surgery [place] [address] Cadence Eric MD [facility] [place] [address] IMPLANT NEUROSTIMULATOR ELECTRODES, PERIPHERAL NERVE (WRVU 5.76) 04/14/2024 2:30 PM EST Office Visit [place] [address] Cadence Eric MD [facility] [address] Scheduled Procedures Name Priority Associated Diagnoses Date/Ti [...] Name Priority Date/Time Associated Diagnosis Comments XR PELVIS AND HIP 2 VIEWS RIGHT Routine 11/06/2017 12:06 PM EDT Post laminectomy syndrome Disorder of sacrum documented in this encounter Results * XR Pelvis w AP & Lat Hip Right (11/06/2017 12:06 PM EDT) Anatomical Region Laterality Modality Pelvis, Hip Right Digital Radiogra phy Impressions 11/06/2017 4:17 PM EDT Osteoarthropathy of bilateral knees. Calcific density projecting near the greater trochanter likely represents calcific tendinopathy or enthesopathy. I have personally reviewed the image(s) and the residents interpretation and agree with the findings, CHERYL MUÑOZ at 11/06/2017 4:17 PM Narrative 11/06/2017 4:17 PM EDT EXAMINATION: XR PELVIS W AP AND LAT HIP RIGHT CLINICAL HISTORY: history of SI mediated pain with prior surgery with instrumentation, now with worsening pain TECHNIQUE: AP pelvis, frontal and lateral radiographs of the right hip COMPARISON: None FINDINGS: Osteoarthropathy of bilateral hip joints, characterized by joint space narrowing, subchondral sclerosis, and osteophyte formation. Calcific density projecting near the greater trochanter likely represents calcific tendinitis. Procedure Note Cheryl Muñoz MD - 11/06/2017 EXAMINATION: XR PELVIS W AP AND LAT HIP RIGHT CLINICAL HISTORY: history of SI mediated pain with prior surgery with instrumentation, now with worsening pain TECHNIQUE: AP pelvis, frontal and lateral radiographs of the right hip COMPARISON: None FINDINGS: Osteoarthropathy of bilateral hip joints, characterized by joint space narrowing, subchondral sclerosis, and osteophyte formation. Calcificdensity projecting near the greater trochanter likely represents calcifictendinitis. IMPRESSION Osteoarthropathy of bilateral knees. Calcific density projecting near the greater trochanter likelyrepresents calcific tendinopathy or enthesopathy. I have personally reviewed the image(s) and the residents interpretationand agree with the findings, CHERYL MUÑOZ at 11/06/2017 4:17 PM Karl Becker MD IMG DX ORDERABLES documented in this encounter Visit Diagnoses Diagnosis Post laminectomy syndrome Postlaminectomy syndrome, unspecified region Disorder of sacrum Disorders of sacrum Saphenous neuralgia, right documented in this encounter Care Teams High Lift Mule Operator Relationship Specialty Start Date End Date Brisa Christine MD PCP - General Internal Medicine 06/05/17 01/17/18 documented as of this encounter
--- OUTSIDE RECORDS SUMMARY | 2024-04-05 16:33 | XMS_ITS | Encounter Summary ---
Author Organization [facility] Address [facility] [place] [address] Care Team Providers Care Knit Goods Mender Name Role Phone Bob Day MD Primary Care Provider [phone] Encounter Details Date Type Department Care Team (Latest Contact Info) Description 01/09/2017 11:45 AM EDT Procedure [place] [address] Ponce Becker MD [facility] [place] [address] Postlaminectomy syndrome (Primary Dx); Lumbar post-laminectomy syndrome Social History Tobacco Use [...] Sign Reading Time Taken Comments Blood Pressure 144/75 01/09/2017 11:48 AM EDT Pulse 83 01/09/2017 11:48 AM EDT Temperature - - Respiratory Rate - - Oxygen Saturation 97% 01/09/2017 11:48 AM EDT Inhaled Oxygen Concentration - - Weight - - Height - - Body Mass Index - - documented in this encounter Procedure Notes * Heather Brothers - 01/09/2017 11:45 AM EDTAssociated Order(s): INTRATHECAL PUMP REFILL Pre-Procedure Diagnose(s): Postlaminectomy syndrome INTRATHECAL PUMP REFILL PROCEDURE NOTE WITH REPROGRAMMING Primary Fisher Lampara Net: Ponce Becker MD Dining Server: Heather Brothers DO Reason for Reprogramming: refill Diagnosis: Post-laminectomy syndrome Telemetry Pre-Refill Programming Reading: Drugs/Concentrations: Morphine - Preservative Free - 10 mg/ml Daily Dose: 4.504 mg/day Telemetry Post-Refill Programming Reading: Drugs/Concentrations: Morphine - Preservative Free - 10 mg/ml Daily Dose: 4.504 mg/day Pump Capacity: 40 mL Computer predicted residual volume in pump: 10.7 mL Measured residual volume in pump: 12 Medication or Dose Changes: no Is dose change >30%? no Is concentration of drug different? no Empty syringe concentration verified by cashier checker: yes If concentration of drug is different, has a bridge bolus been programmed? n/a. Has any program been used other than simple continuous or bridge bolus and simple continuous? no Infusion Mode: simple continuous. New Alarm Date: 04/03/17 PROCEDURE: Risks and expected side effects were [...] drapes were applied as provided with the Endratronic refill kit. A 22 gauge Moraes non-coring [...] instilled into the pump according to the quality systems specialist's directions without difficulty. There was no evidence [...] will be arranged for refills as appropriate. Heather Brothers DO [facility] Pain Medicine Fellow I was the attending physician supervising the resident in the above care and I was present with theresident for the entire procedure. PONCE BECKER MD documented in this encounter Plan of Treatment Upcoming Encounters Date Type Department Care Team (Latest Contact Info) Description 04/06/2024 11:30 AM EST Hospital Encounter [place] [address] Cadence Eric MD [facility] [place] [address] 04/06/2024 11:30 AM EST - 04/06/2024 12:50 PM EST Surgery [place] [address] Cadence Eric MD [facility] [place] [address] IMPLANT NEUROSTIMULATOR ELECTRODES, PERIPHERAL NERVE (WRVU 5.76) 04/14/2024 2:30 PM EST Office Visit [place] [address] Cadence Eric MD [facility] [place] [address] Scheduled Procedures Name Priority Associated Diagnoses Date/Ti [...] Associated Diagnosis Comments INTRATHECAL PUMP REFILL Routine 01/11/2017 4:19 AM EDT Postlaminectomy syndrome documented in this encounter Results * INTRATHECAL PUMP REFILL (01/11/2017 4:19 AM EDT) Narrative Ponce Becker MD - 01/11/2017 4:19 AM EDT Ponce Becker MD ? 01/11/2017 ??4:19 AM INTRATHECAL PUMP REFILL PROCEDURE NOTE WITH REPROGRAMMING Primary Fisher Lampara Net: Ponce Becker MD Dining Server: Heather Brothers, Reason for Reprogramming: refill Diagnosis: Post-laminectomy syndrome Telemetry Pre-Refill Programming Reading: Drugs/Concentrations: Morphine - Preservative Free ??- ??10 mg/ml Daily Dose: 4.504 mg/day Telemetry Post-Refill Programming Reading: Drugs/Concentrations: Morphine - Preservative Free ??- ??10 mg/ml Daily Dose: 4.504 mg/day Pump Capacity: 40 mL Computer predicted residual volume in pump: 10.7 mL Measured residual volume in pump: 12 Medication or Dose Changes: no Is dose change >30%? no Is concentration of drug different? ??no Empty syringe concentration verified by cashier checker: yes If concentration of drug is different, has a bridge bolus been programmed? n/a. Has any program been used other than simple continuous or bridge bolus and simple continuous? no Infusion Mode: simple continuous. New ??Alarm Date: 04/03/17 PROCEDURE: Risks and expected side effects were [...] drapes were applied as provided with the ??Medtronic refill kit. A 22 gauge Moraes non-coring [...] instilled into the pump according to the quality systems specialist's directions without difficulty. There was no evidence [...] will be arranged for refills as appropriate. Heather Brothers DO [facility] Pain Medicine Fellow I was the attending physician supervising the resident in the above care and I was present with the resident for the entire procedure. PONCE BECKER MD Ponce Becker MD PROCEDURE/MINOR SURG ICAL ORDERABLES documented in this encounter Visit Diagnoses Diagnosis Postlaminectomy syndrome- Primary Postlaminectomy syndrome, unspecified region Lumbar post-laminectomy syndrome Postlaminectomy syndrome, lumbar region Saphenous neuralgia, right documented in this encounter Administered Medications Inactive Administered Medications - up to 3 most recent administrations Medication Order MAR Action Action Date Dose Rate Site pain clinic compounded medication 1 each 1 each, Intrathecal, ONCE, 1 dose, On Thu01/09/17 at 1300, Routine, Medication Name and Dose: morphine 10mg/mL Given 01/09/2017 12:47 PM EDT 1 each documented in this encounter Care Teams Knit Goods Mender Relationship Specialty Start Date End Date Bob Day MD [address] [place] [address] PCP - General Family Medicine 12/21/15 06/04/17 documented as of this encounter
--- OUTSIDE RECORDS SUMMARY | 2024-04-05 16:33 | XMS_ITS | Encounter Summary ---
Author Organization [facility] Address [facility] [place] [address] Care Team Providers Care Day Care Director Name Role Phone Bob Day MD Primary Care Provider [phone] Reason for Visit * Reason Comments Pain Management Back Pain Encounter Details Date Type Department Care Team (Latest Contact Info) Description 03/23/2017 3:00 PM EST Procedure [place] [address] Karl Becker MD [facility] [place] [address] Lumbar post-laminectomy syndrome; Postlaminectomy syndrome Social History Tobacco Use Types [...] Sign Reading Time Taken Comments Blood Pressure 131/98 03/23/2017 3:14 PM EST Pulse 100 03/23/2017 3:14 PM EST Temperature - - Respiratory Rate - - Oxygen Saturation 98% 03/23/2017 3:14 PM EST Inhaled Oxygen Concentration - - Weight 111.1 kg (245 lb) 03/23/2017 3:14 PM EST Height - - Body Mass Index 47.79 02/04/2017 12:00 AM EDT documented in this encounter Procedure Notes * Karl Becker MD - 03/23/2017 3:00 PM ESTAssociated Order(s): INTRATHECAL PUMP REFILL Pre-Procedure Diagnose(s): Lumbar post-laminectomy syndrome INTRATHECAL PUMP REFILL PROCEDURE NOTE WITH REPROGRAMMING Primary Hockey Instructor: Karl Becker MD Can Sealer: Karl Becker MD Reason for Reprogramming: refill Diagnosis: post lami. Concomitant Medical Problems: - Telemetry Pre-Refill Programming Reading: Drugs/Concentrations: Morphine - Preservative Free - 10 mg/ml Daily Dose: 4.5mg Telemetry Post-Refill Programming Reading: Drugs/Concentrations: Morphine - Preservative Free - 10 mg/ml Daily Dose: 4.5mg Brand/Compound: Compound. Pump Capacity: 40 mL Computer predicted residual volume in pump: 7.1ml Measured residual volume in pump: 8ml Medication or Dose Changes: no Is dose change >30%? n/a Is concentration of drug different? no Empty syringe concentration verified by insurance checker: yes If concentration of drug is different, has a bridge bolus been programmed? n/a. Has any program been used other than simple continuous or bridge bolus and simple continuous? no Infusion Mode: simple continuous. New Alarm Date: 06/15/16 PROCEDURE: Risks and expected side effects were [...] drapes were applied as provided with the [employer] refill kit. A 22 gauge Moraes non-coring [...] instilled into the pump according to the penetration tester's directions without difficulty. There was no evidence [...] AM EST Hospital Encounter Outpatient [place] [address] Cadence Eric MD [facility] [place] [address] 04/06/2024 11:30 AM EST - 04/06/2024 12:50 PM EST Surgery Outpatient [place] [address] Cadence Eric MD [facility] [place] [address] IMPLANT NEUROSTIMULATOR ELECTRODES, PERIPHERAL NERVE (WRVU 5.76) 04/14/2024 2:30 PM EST Office Visit [facility] [place] [address] Cadence Eric MD [facility] [place] [address] Scheduled Procedures Name Priority Associated Diagnoses Date/Ti tx IMPLANT NEUROSTIMULATOR ELECTRODES, PERIPHERAL NERVE (WRVU 5.76) Yes Saphenous neuralgia, right 04/06/2024 11:30 AM EST IMPLANT NEUROSTIMULATOR ELECTRODES, PERIPHERAL NERVE (WRVU 5.76) Saphenous neuralgia, 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 03/24/2017 ??8:59 AM INTRATHECAL PUMP REFILL PROCEDURE NOTE WITH REPROGRAMMING Primary Hockey Instructor: Karl Becker MD Can Sealer: Karl Becker MD Reason for Reprogramming: refill Diagnosis: post lami. Concomitant Medical Problems: - Telemetry Pre-Refill Programming Reading: Drugs/Concentrations: Morphine - Preservative Free ??- ??10 mg/ml Daily Dose: 4.5mg Telemetry Post-Refill Programming Reading: Drugs/Concentrations: Morphine - Preservative Free ??- ??10 mg/ml Daily Dose: 4.5mg Brand/Compound: Compound. Pump Capacity: 40 mL Computer predicted residual volume in pump: 7.1ml Measured residual volume in pump: 8ml Medication or Dose Changes: no Is dose change >30%? n/a Is concentration of drug different? ??no Empty syringe concentration verified by insurance checker: yes If concentration of drug is different, has a bridge bolus been programmed? n/a. Has any program been used other than simple continuous or bridge bolus and simple continuous? no Infusion Mode: simple continuous. New ??Alarm Date: 06/15/16 PROCEDURE: Risks and expected side effects were [...] the ??Medtronic refill kit. A 22 gauge Omraes non-coring needle supplied with the refill kit [...] instilled into the pump according to the penetration tester's directions without difficulty. There was no evidence [...] will be arranged for refills as appropriate. Karl Becker MD PROCEDURE/MINOR SURG ICAL ORDERABLES documented in this encounter Visit Diagnoses Diagnosis Lumbar post-laminectomy syndrome Postlaminectomy syndrome, lumbar region Postlaminectomy syndrome Postlaminectomy syndrome, unspecified region Saphenous neuralgia, right documented in this encounter Administered Medications Inactive Administered Medications - up to 3 most recent administrations Medication Order MAR Action Action Date Dose Rate Site pain clinic compounded medication 1 each 1 each, Intrathecal, ONCE, 1 dose, On Thu03/23/17 at 1615, Routine, Medication Name and Dose: morphine 10mg/ml Given 03/23/2017 3:56 PM EST 1 each documented in this encounter Care Teams Day Care Director Relationship Specialty Start Date End Date Bob Day MD [address] [place] [address] PCP - General Family Medicine 12/21/15 06/04/17 documented as of this encounter
--- OUTSIDE RECORDS SUMMARY | 2024-04-05 16:33 | XMS_ITS | Encounter Summary ---
Author Organization [facility] Address [facility] [place] [address] Care Team Providers Care Candy Maker Helper Name Role Phone Bob Day MD Primary Care Provider [phone] Encounter Details Date Type Department Care Team (Late st Contact Info) Description 02/04/2017 [facility] Conversion Results [address] [place] [phone] [facility] Conversion, Flowsheet Provider, Social History Tobacco Use [...] Reading Time Taken Comments Blood Pressure 114/64 02/04/2017 12:00 AM EDT Sourced from [facility] Conversion Pulse - - Temperature - - Respiratory Rate - - Oxygen Saturation - - Inhaled Oxygen Concentration - - Weight 108.4 kg (239 lb) 02/04/2017 12: 00 AM EDT Sourced from [facility] Conversion Height 152.5 cm (5' 0.04) 02/04/2017 1 2:00 AM EDT Sourced from [facility] Conversion Body Mass Index 46.62 02/04/2017 12:00 AM EDT documented in this encounter Plan of Treatment Upcoming Encounters Date Type Department Care Team (Latest Contact Info) Description 04/06/2024 11:30 AM [facility] Hospital Encounter [place] [address] Cadence Eric MD [facility] [place] [address] 04/06/2024 11:30 AM EST - 04/06/2024 12:50 PM EST Surgery [place] [address] Cadence Eric MD [facility] [place] [address] IMPLANT NEUROSTIMULATOR ELECTRODES, PERIPHERAL NERVE (WRVU 5.76) 04/14/2024 2:30 PM EST Office Visit Pain [place] [address] Cadence Eric MD [facility] [place] [address] Scheduled Procedures Name Priority Associated Diagnoses Date/Ti [...] on filedocumented in this encounter Care Teams Candy Maker Helper Relationship Specialty Start Date End Date Bob Day MD [address] [place] [address] PCP - General Family Medicine 01/18/18 07/26/20 documented as of this encounter
--- OUTSIDE RECORDS SUMMARY | 2024-04-05 16:33 | XMS_ITS | Encounter Summary ---
Author Organization [facility] Address [facility] [place] [address] Care Team Providers Care Contact Lens Edge Buffer Name Role Phone Bob Day MD Primary Care Provider [phone] Encounter Details Date Type Department Care Team (Late st Contact Info) Description 09/14/2017 [facility] Conversion Results [address] [place] [phone] [facility] Conversion, Flowsheet Provider, Social History Tobacco [...] Sign Reading Time Taken Comments Blood Pressure 128/75 09/14/2017 12:00 AM EDT Sourced from [facility] Conversion Pulse - - Temperature - - Respiratory Rate - - Oxygen Saturation - - Inhaled Oxygen Concentration - - Weight 117.6 kg (259 lb 4 oz) 09/14/2017 12:00 AM EDT Sourced from [facility] Conversion Height 152 cm (4' 11.84) 09/14/2017 12 :00 AM EDT Sourced from [facility] Conversion Body Mass Index 50.9 09/14/2017 12:00 AM EDT documented in this encounter Plan of Treatment Upcoming Encounters Date Type Department Care Team (Latest Contact Info) Description 04/06/2024 11:30 AM [facility] Hospital Encounter [place] [address] Cadence Eric MD [facility] [place] [address] 04/06/2024 11:30 AM EST - 04/06/2024 12:50 PM EST Surgery [place] [address] Cadence Eric MD [facility] [place] [address] IMPLANT NEUROSTIMULATOR ELECTRODES, PERIPHERAL NERVE (WRVU 5.76) 04/14/2024 2:30 PM EST Office Visit [facility] [place] [address] Cadence Eric MD [facility] [place] [address] Scheduled Procedures Name Priority Associated Diagnoses Date/Ti [...] on filedocumented in this encounter Care Teams Contact Lens Edge Buffer Relationship Specialty Start Date End Date Bob Day MD [address] [place] [address] PCP - General Family Medicine 01/18/18 07/26/20 documented as of this encounter
--- OUTSIDE RECORDS SUMMARY | 2024-04-05 16:33 | XMS_ITS | Encounter Summary ---
Author Organization [facility] [place] [address] Care Team Providers Care Wildlife Science Professor Name Role Phone Brisa Christine MD Primary Care Provider Encounter Details Date Type Department Care Team (Late st Contact Info) Description 11/06/2017 Orders [place] [phone] Niesha Ayala LNA Social History Tobacco Use Types Packs/Day Years [...] EST Hospital Encounter Outpatient [place] [address] Cadence Eric MD [facility] [place] [address] 04/06/2024 11:30 AM EST - 04/06/2024 12:50 PM EST Surgery Outpatient [place] [phone] Cadence Eric MD [facility] [place] [address] IMPLANT NEUROSTIMULATOR ELECTRODES, PERIPHERAL NERVE (WRVU 5.76) 04/14/2024 2:30 PM EST Office Visit [place] [address] Cadence Eric MD [facility] [place] [address] Scheduled Procedures Name Priority Associated Diagnoses Date/Ti [...] on filedocumented in this encounter Care Teams Wildlife Science Professor Relationship Specialty Start Date End Date Brisa Christine MD PCP - General Internal Medicine 06/05/17 01/17/18 documented as of this encounter
--- OUTSIDE RECORDS SUMMARY | 2024-04-05 16:33 | XMS_ITS | Encounter Summary ---
Author Organization [facility] [place] [address] Care Team Providers Care String Cutter Name Role Phone Bob Day MD Primary Care Provider [phone] Reason for Visit * Auth/Cert Specialty Diagnoses / Procedures Referred By Cindy wooten Referred To Contact Diagnoses Cholecystitis cholecystitis cholecystitis Procedures LAPAROSCOPIC CHOLECYSTECTOMY WITH CHOLANGIOGRAM (WRVU 11.47) LAPAROSCOPIC CHOLECYSTECTOMY WITH CHOLANGIOGRAM (WRVU 11.47) Referral ID Status Reason Start Date Expiration Date Visits Re quested Visits Authorized [id number] 1 1 Encounter Details Date Type Department Care Team (Late Contact Info) Description 10/18/2016 11:11 AM EDT Anesthesia Event [place] [address] Lydia Jaquez MD [facility] [place] [address] Anesthesia Record Procedure Summary Procedure Name Responsible Anesthesiologist Anesthesia Start Time Anesthesia Stop Time LAPAROSCOPIC CHOLECYSTECTOMY WITH CHOLANGIOGRAM (WRVU 11.47) (Abdomen) Lydia Jaquez MD 10/18/16 1111 10/18/16 1616 Events Date Time Event Comment 10/18/2016 1107 1108 Quick Note Zosyn dose infu sing on pump. Opened up line and infused remaining dose. 1111 AN Verify 1111 Start 1111 An Start Data 1117 An Induction 1120 An Intubation 1140 Anesthesia Ready 1254 Break/Relief In LYDIA RICHARDS MD 1320 Break/Relief Out 1609 Extubation/LMA Out 1609 an stop data 1615 Recovery or ICU Handoff Loan ent care was transferred to the destination unit staff after review of the patient's medical history, current anesthetic/surgical status and plan, according to the Provider Handoff Checklist. 1616 Stop Meds Name Total Midazolam 2 mg fentaNYL 250 mcg IV Lidocaine 50 mg Propofol 150 mg Rocuronium 70 mg Ondansetron 8 mg Propofol INF 790.61 mg Ketamine 10 mg/mL 50 mg Dexmedetomidine 40 mcg Piperacillin-Tazobactam 3.375 g HYDROmorphone 0.4 mg Lactated Ringers 1,700 mL * Agents Name O2 Air N2O Sevoflurane (et) * Blood No blood administrations on file. Lines, Drains, and Airways Type Details Placement Removal (RETIRED) Peripheral IV Line - Single Lumen 10/17/16; 0932; median cubital vein (antecubital fossa), right; ydvx-ghu-fugnxe catheter system; 18 gauge; CRS; appears comfortable, tolerated well, age-appropriate response; 08/24/17 (Auto removal via utility); 09 (Auto removal via utility) 10/17/16 0932 by Imelda Jackson RN 08/24/17 0921 by [employer], User Urethral Catheter 10/18/16; Abdominal surgery; indwelling double lumen catheter; latex; inserted at this facility; 1; 5; 10; drainage bag to dependent drainage; 10/18/16; 1607 10/18/16 0000 by Vinh Vieyra RN 10/18/16 1607 by Vinh Vieyra RN Incision 10/18/16; abdomen; laparoscopic punctures (specify); 03/23/19; 1208 10/18/16 0000 by Vinh Vieyra RN 03/23/19 1208 by Lauren Jackson RN ETT Mask Ventilation: Ad junct (2); ETT Type: Cuffed, Oral; ETT Size: 6.5 mm; Indirect: Video; Notes: Asleep, Stylette; Attempts: 1; Laryngoscopy Grade: 1; ETT Placement Verified By: Auscultation, Capnometry, Visual; Secured at Teeth: 20 cm; Inserted by: Radha Mora CRNA; Removal Date: 10/18/16; Removal Time: 16010/18/16 1120 by Radha Mora CRNA 10/18/16 1609 by Radha Mora CRNA (RETIRED) Peripheral IV Line - Single Lumen 10/18/16; 1140; metacarpal vein (top of hand), left; glck-mpw-xuugmk catheter system; 18 gauge; Radha Mora CRNA; 08/24/17 (Auto removal via utility); 09 (Auto removal via utility) 10/18/16 1140 by Radha Mora CRNA 08/24/17 0921 by [employer], User Supraglottic Nasopharyngeal Size: 32 Fr; Inserted by: RAJEEV Mora; Removal Date: 10/18/16; Removal Time: 1800 10/18/16 1607 by Radha Mora CRNA 10/18/16 1800 by Marilia Do RN documented in this encounter Social History [...] OR Notes * Anesthesia Postprocedure Evaluation - Lydia Jaquez MD - 10/18/2016 4:55 PM EDT [facility] Department of Anesthesiology Post-procedure Note Patient: Etelvina Cuadra Procedure Summary Date Anesthesia Start Anesthesia Stop Room / Location 10/18/16 1111 1616 [facility] OR 26 / [facility] MAIN OR Procedure Diagnosis Surgeon Responsible Provider LAPAROSCOPIC CHOLECYSTECTOMY WITH CHOLANGIOGRAM (WRVU 11.47) (N/A Abdomen) (cholecystitis) Tasia Umaña MD Herrick, Michael D, MD All Anesthesia Providers: Anesthesiologist: Lydia Jaquez MD [employer]ER: Radha Mora CRNA Last (1hr) Vitals: BP Temp Pulse Resp SpO2 Patient Location: PACU/[facility] Level of Consciousness: Conscious but Sleepy Pain Management: Satisfactory Analgesia PONV: None Cardiovascular Status: Hemodynamically Stable Respiratory Status: Stable Respiratory Status Postoperative Fluid Status: Intravascular EUvolemia Possible Anesthetic Complications: NONE apparent at time of evaluation Final Primary Anesthesia Type: General (The anesthetic type performed was the same as planned.) Comments: * Anesthesia Preprocedure Evaluation - Lydia Jaquez MD - 10/18/2016 8:30 AM EDT Pre-Anesthesia Evaluation for: Etelvina Cuadra a 55 y.o. female. Procedure(s): LAPAROSCOPIC CHOLECYSTECTOM[facility]IOGRAM [facility] Patient Active Problem List Diagnosis ??? Cholecystitis ??? Encounter for long-term opiate analgesic use ??? CIS - Entered not Verified ??? Lumbar post-laminectomy syndrome ??? CIS - Sciatica Past Medical History: Diagnosis Date ??? Allergic state ??? CAD (coronary artery disease) ??? Depression Past Surgical History: Procedure Laterality Date ??? BACK SURGERY ??? IMPLANT OR REPLACE DEVICE FOR INTRATHECAL INFUSION, SUBQ RESERVOIR ??? ORTHOPEDIC SURGERY ??? PRO COLONOSCOPY, BIOPSY 10/07/2011 COLONOSCOPY FLEXIBLE, WITH BX performed by NIKKI MAYORGA at [facility] ENDOSCOPY ??? PRO COLONOSCOPY, DIAGNOSTIC 09/23/2011 COLONOSCOPY, DIAGNOSTIC performed by NIKKI MAYORGA at [facility] ENDOSCOPY Social History Substance Use Topics ??? Smoking status: Former Smoker Packs/day: 0.25 Types: Cigarettes Quit date: 09/23/1991 ??? Smokeless tobacco: Never Used ??? Alcohol use No History Drug Use No Allergies Allergen Reactions ??? Peanut CIS - [...] - ITCHING ??? Tetracyclines CIS - itching Medications: MAR and/or home medications have been reviewed. Physical Exam: Vitals: 10/18/16 0814 BP: 103/51 Pulse: 80 Resp: 16 Temp: 37.1 ??C (98.8 ??F) Body mass index is 47.66 kg/(m^2). Height: 151.1 cm (4' 11.5) Weight - Scale: (!) 108.9 kg (240 lb) Airway Assessment: Mallampati: III TM distance: >3 FB Neck ROM: limited Cardiovascular Assessment: cardiovascular exam normal Pulmonary Assessment: pulmonary exam normal Dental Assessment: Misc Assessment: IV access: Peripheral line Anesthesia Plan: ASA 3 general, with a(n) intravenous induction 55 year old 109 kg female with medical history significant for CAD (no cardiology notes in [facility], pt repoorts positive stress test but cath showed no disease, no CP at >4 mets recently), chronic back pain (intrathecal morphine pump, followed in Pain clinic), HTN and ultrasound confirmed cholecystitis to OR for laparoscopic cholecystectomy. Admitted to the hospital yesterday after 4 previous daysof abdominal pain. NPO status: Past anesthesia experience: Plan: GA with ETT ASA monitors PIV as needed. Region - Other Informed Consent: Anesthetic plan and risks discussed with patient. Use of blood products discussed with patient who consented to blood products. Plan discussed with SKY LINE YARDER. PAT Staff Note documented in this encounter Plan of Treatment Upcoming Encounters Date Type Department Care Team (Latest Contact Info) Description 04/06/2024 11:30 AM EST Hospital Encounter Outpatient [place] [address] Cadence Eric MD [facility] [place] [address] 04/06/2024 11:30 AM EST - 04/06/2024 12:50 PM EST Surgery Outpatient [place] [address] Cadence Eric MD [facility] [place] [address] IMPLANT NEUROSTIMULATOR ELECTRODES, PERIPHERAL NERVE (WRVU 5.76) 04/14/2024 2:30 PM EST Office Visit [facility] [place] [address] Cadence Eric MD [facility] [place] [address] Scheduled Procedures Name Priority Associated Diagnoses Date/Ti [...] MAR Action Action Date Dose Rate Site dexmedetomidine (PRECEDEX) injection PRN, Starting on 10/18/16 at 1219, Until 10/18/16 at 1616, Anesthesia Intra-op, Routine Given 10/18/2016 3:58 PM EDT 8 mcg Given 10/18/2016 3:54 PM EDT 8 mcg Given 10/18/2016 3:30 PM EDT 8 mcg fentaNYL 50 mcg/mL multi-dose injection PRN, Starting on 10/18/16 at 1117, Until 10/18/16 at 1616, Pain, Anesthesia Intra-op, Routine Given 10/18/2016 12:19 PM EDT 50 mcg Given 10/18/2016 12:12 PM EDT 100 mcg Given 10/18/2016 11:17 AM EDT 100 mcg HYDROmorphone (DILAUDID) injection PRN, Starting on 10/18/16 at 1603, Until 10/18/16 at 1616, Pain, Anesthesia Intra-op, Routine Given 10/18/2016 4:03 PM EDT 0.4 mg ketamine (KETALAR) 10 mg/mL bolus injection (Anesthesia) PRN, Starting on 10/18/16 at 1117, Until 10/18/16 at 1616, Anesthesia Intra-op Given 10/18/2016 11:17 AM EDT 50 mg lactated Ringers infusion CONTINUOUS PRN, Starting on 10/18/16 at 1111, Until 10/18/16 at 1616, Anesthesia Intra-op New Bag 10/18/2016 1:25 PM EDT New Bag 10/18/2016 11:11 AM EDT lidocaine (PF) (XYLOCAINE) 100 mg/5 mL (2 %) injection PRN, Starting on 10/18/16 at 1117, Until 10/18/16 at 1616, Anesthesia Intra-op, Routine Given 10/18/2016 11:17 AM EDT 50 mg midazolam (PF) (VERSED) 1 mg/mL multi-dose injection PRN, Starting on 10/18/16 at 1117, Until 10/18/16 at 1616, Sleep, Anesthesia Intra-op, Routine Given 10/18/2016 11:17 AM EDT 2 mg ondansetron (ZOFRAN) injection PRN, Starting on 10/18/16 at 1533, Until 10/18/16 at 1616, Nausea, Anesthesia Intra-op, Routine Given 10/18/2016 3:33 PM EDT 8 mg piperacillin-tazobactam (ZOSYN) injection PRN, Starting on 10/18/16 at 1535, Until 10/18/16 at 1616, Anesthesia Intra-op, Routine Given 10/18/2016 3:35 PM EDT 3.375 g propofol (DIPRIVAN) 10 mg/mL bolus injection (Anesthesia) PRN, Starting on 10/18/16 at 1117, Until 10/18/16 at 1616, Anesthesia Intra-op Given 10/18/2016 11:17 AM EDT 150 mg propofol (DIPRIVAN) infusion CONTINUOUS PRN, Starting on 10/18/16 at 1140, Until 10/18/16 at 1616, Anesthesia Intra-op, Routine New Bag 10/18/2016 11:40 AM EDT 30 mcg/kg/min 19.6 mL/hr rocuronium (ZEMURON) multi-dose injection PRN, Starting on 10/18/16 at 1117, Until 10/18/16 at 1616, Anesthesia Intra-op, Routine Given 10/18/2016 12:09 PM EDT 20 mg Given 10/18/2016 11:17 AM EDT 50 mg documented in this encounter Care Teams String Cutter Relationship Specialty Start Date End Date Bob Day MD [address] [place] [address] PCP - General Family Medicine 12/21/15 06/04/17 documented as of this encounter
--- OUTSIDE RECORDS SUMMARY | 2024-04-05 16:33 | XMS_ITS | Encounter Summary ---
Author Organization [facility] [place] [address] Care Team Providers Care Clerk Travel Reservations Name Role Phone Brisa Christine MD Primary Care Provider Encounter Details Date Type Department Care Team (Late st Contact Info) Description 11/06/2017 Orders [place] [phone] Geovanna Greco MD [facility] [place] [address] Disorder of sacrum (Primary Dx); Post laminectomy syndrome Social History [...] AM EST Hospital Encounter Outpatient [place] [phone] Cadence Eric MD [facility] [place] [address] 04/06/2024 11:30 AM EST - 04/06/2024 12:50 PM EST Surgery Outpatient [place] [address] Cadence Eric MD [facility] [place] [address] IMPLANT NEUROSTIMULATOR ELECTRODES, PERIPHERAL NERVE (WRVU 5.76) 04/14/2024 2:30 PM EST Office Visit [place] [address] Cadence Eric MD [facility] [place] [address] Scheduled Procedures Name Priority Associated Diagnoses Date/Ti me IMPLANT NEUROSTIMULATOR ELECTRODES, PERIPHERAL NERVE (WRVU 5.76) Yes Saphenous neuralgia, right 04/06/2024 11:30 AM EST IMPLANT NEUROSTIMULATOR ELECTRODES, PERIPHERAL NERVE (WRVU 5.76) Saphenous neuralgia, 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 Neuropathic pain COLONOSCOPY,SCREENING (WRVU 3.26) Health maintenance examination-screening colo documented as of this encounter Results * XR Pelvis w [...] PM Karl Becker MD IMG DX ORDERABLES * XR Thoracic Spine 2 views (11/06/2017 [...] documented in this encounter Visit Diagnoses Diagnosis Disorder of sacrum- Primary Disorders of sacrum Post laminectomy syndrome Postlaminectomy syndrome, unspecified region Post laminectomy syndrome Postlaminectomy syndrome, unspecified region Disorder of sacrum Disorders of sacrum Post laminectomy syndrome Postlaminectomy syndrome, unspecified region Saphenous neuralgia, right documented in this encounter Care Teams Clerk Travel Reservations Relationship Specialty Start Date End Date Brisa Christine MD PCP - General Internal Medicine 06/05/17 01/17/18 documented as of this encounter
--- OUTSIDE RECORDS SUMMARY | 2024-04-05 16:33 | XMS_ITS | Encounter Summary ---
Author Organization [facility] Address [facility] [place] [address] Care Team Providers Care Implementation Consultant Name Role Phone Bob Day MD Primary Care Provider [phone] Reason for Visit * Reason Comments Back Pain Hip Pain Encounter Details Date Type Department Care Team (Latest Contact Info) Description 11/07/2016 11:15 AM EDT Procedure [place] [address] Karl Becker MD [facility] [place] [address] Lumbar post-laminectomy syndrome; Postlaminectomy syndrome Social History [...] Sign Reading Time Taken Comments Blood Pressure 113/63 11/07/2016 11:48 AM EDT Pulse 75 11/07/2016 11:48 AM EDT Temperature - - Respiratory Rate - - Oxygen Saturation 95% 11/07/2016 11:48 AM EDT Inhaled Oxygen Concentration - - Weight 108.9 kg (240 lb) 11/07/2016 11:22 AM EDT Height 149.9 cm (4' 11) 11/07/2016 11:22 AM EDT Body Mass Index 48.47 11/07/2016 11:22 AM EDT documented in this encounter Patient Instructions * Patient Instructions* Salina England LPN - 11/07/2016 11:15 AM EDT Pain Management Center Discharge Instructions: You were seen by Dr. Karl Becker MD who performed pump refill. It is normal that the injection site will be sore for up to 48 hours. You may also experience mild stiffness in the joint near the injection site. [x] You may resume your normal activities: today. You may shower today. DO NOT tub [...] procedure. You received the following medications: morphine into intrathecal pump. During regular business hours, please phone the [...] your local emergency department. Salina England LPN Special instructions documented in this encounter Progress Notes * Karl Becker MD - 11/07/2016 11:15 AM EDT INTRATHECAL PUMP REFILL PROCEDURE NOTE WITH REPROGRAMMING Primary Equipment Maint Tech: Karl Becker MD Mastic Sprayer: Karl Becker MD Reason for Reprogramming: Refill Diagnosis: Postlaminectomy syndrome. Concomitant Medical Problems: Telemetry Pre-Refill Programming Reading: Drugs/Concentrations: Morphine - Preservative Free - 10 mg/ml Daily Dose: 4.5 ML's per day Telemetry Post-Refill Programming Reading: Drugs/Concentrations: Morphine - Preservative Free - 10 mg/ml Daily Dose: 4.5 ML's per day Brand/Compound: Compound. Pump Capacity: 40 mL Computer predicted residual volume in pump: 11.3 mL Measured residual volume in pump: 12 mL Medication or Dose Changes: no Is dose change >30%? n/a Is concentration of drug different? no Empty syringe concentration verified by auto design checker: yes If concentration of drug [...] instilled into the pump according to the tooling manager's directions without difficulty. There was no [...] AM EST Hospital Encounter [place] [address] Cadence Eric MD [facility] [address] 04/06/2024 11:30 AM EST - 04/06/2024 12:50 PM EST Surgery [place] [address] Cadence Eric MD [facility] [address] IMPLANT NEUROSTIMULATOR ELECTRODES, PERIPHERAL NERVE (WRVU 5.76) 04/14/2024 2:30 PM EST Office Visit [place] [address] Cadence Eric MD [facility] [address] Scheduled Orders Name Type Priority Associated Diagnoses Orde r Schedule INTRATHECAL PUMP REFILL Procedures Routine Postlaminectomy syndrome Ordered: 11/07/2016 Scheduled Procedures Name Priority Associated Diagnoses Date/Ti [...] 1 each, Intrathecal, ONCE, 1 dose, On Thu11/07/16 at 1215, Routine, Medication Name and Dose: morphine 10mg/ml Given 11/07/2016 12:15 PM EDT 1 each documented in this encounter Care Teams Implementation Consultant Relationship Specialty Start Date End Date Bob Day MD [address] [place] [address] PCP - General Family Medicine 12/21/15 06/04/17 documented as of this encounter
--- OUTSIDE RECORDS SUMMARY | 2024-04-05 16:33 | XMS_ITS | Encounter Summary ---
Author Organization [facility] Address [facility] [place] [address] Care Team Providers Care Meter Technician Name Role Phone Brisa Christine MD Primary Care Provider Encounter Details Date Type Department Care Team (Latest Contact Info) Description 11/06/2017 11:00 AM EDT Procedure [place] [address] Ponce Becker MD [facility] [place] [address] Post laminectomy syndrome Social History Tobacco Use [...] Sign Reading Time Taken Comments Blood Pressure 135/76 11/06/2017 10:58 AM EDT Pulse 85 11/06/2017 10:58 AM EDT Temperature - - Respiratory Rate - - Oxygen Saturation 97% 11/06/2017 10:58 AM EDT Inhaled Oxygen Concentration - - Weight - - Height - - Body Mass Index - - documented in this encounter Progress Notes * Geovanna Greco MD - 11/06/2017 11:00 AM EDT INTRATHECAL PUMP REFILL PROCEDURE NOTE WITH REPROGRAMMING Primary Warble Saw Operator: Cadence Eric MD Data Analyst Report Writer: Nate Chopra MD Reason for Reprogramming: Refill Diagnosis: Postlaminectomy syndrome. Concomitant Medical Problems: Telemetry Pre-Refill Programming Reading: Drugs/Concentrations: Morphine - Preservative Free - 10 mg/ml Daily Dose: 4.5 mgs per day Telemetry Post-Refill Programming Reading: Drugs/Concentrations: Morphine - Preservative Free - 10 mg/ml Daily Dose: 4.5 mg's per day Brand/Compound: Compound. Pump Capacity: 40 mL Computer predicted residual volume in pump: 5 ml Measured residual volume in pump: 6.5 mL Medication or Dose Changes: no Is dose change >30%? n/a Is concentration of drug different? no Empty syringe concentration verified by grocery checker: yes If concentration of drug is [...] containing pump refill medication: yes Fluoroscopy was not used during today's pump refill. The pump was accessed via telemetry and the computer predicted residual volume was noted as per above. Then Chlorhexidine prep over the pump refill site was performed. Sterile drapes were applied as provided with the [employer] refill kit. A 22 gauge Moraes non-coring [...] instilled into the pump according to the vest baster's directions without difficulty. There was no evidence of over pressurization at the conclusion of the filling process. The Moraes needlewas withdrawn and a Band- Aid was applied. The pump was then re-accessed via telemetry and reprogrammed to indicate the refill volume of 40 ml. The unused portion of the medication was discarded alongwith the old drug aspirated. Battery alarms reviewed and were appropriately enabled and in working order. Patient tolerated the procedure well and was discharged from the Pain Management Center. Follow-up appointments will be arranged for refills as appropriate. Geovanna Greco MD Pain Fellow This procedure was done under the direct supervision of Dr Becker, attending physician I was the attending physician supervising the resident in the above care and I was present with theresident for the entire procedure. PONCE BECKER MD * Ponce Becker MD - 11/06/2017 11:00 AM EDT I spoke to the patient regarding her x-rays. Her intrathecal catheter tip is at T4 approximately. Seems to be working now however if there is any issues I would most likely move it down closer to theconus. Regarding her right hip pain. She does not want to go back to Dr. Franco who did the SI joint implants. I told her I would talk with the company [employer] and see what his suggestions are for evaluating that. documented in this encounter Plan of Treatment Upcoming Encounters Date Type Department Care Team (Latest Contact Info) Description 04/06/2024 11:30 AM EST Hospital Encounter Outpatient [place] [address] Cadence Eric MD [facility] [place] [address] 04/06/2024 11:30 AM EST - 04/06/2024 12:50 PM EST Surgery Outpatient [place] [address] Cadence Eric MD [facility] [place] [address] IMPLANT NEUROSTIMULATOR ELECTRODES, PERIPHERAL NERVE (WRVU 5.76) 04/14/2024 2:30 PM EST Office Visit [facility] [place] [address] Cadence Eric MD [facility] [place] [address] Scheduled Procedures Name Priority Associated Diagnoses Date/Ti [...] Associated Diagnosis Comments INTRATHECAL PUMP REFILL Routine 11/06/2017 documented in this encounter Results * INTRATHECAL PUMP REFILL (11/06/2017) Ponce Becker MD PROCEDURE/MINOR SURG ICAL ORDERABLES documented in this encounter Visit Diagnoses Diagnosis Post laminectomy syndrome Postlaminectomy syndrome, unspecified region Saphenous neuralgia, right documented in this encounter Care Teams Meter Technician Relationship Specialty Start Date End Date Brisa Christine MD PCP - General Internal Medicine 06/05/17 01/17/18 documented as of this encounter
--- OUTSIDE RECORDS SUMMARY | 2024-04-05 16:33 | XMS_ITS | Encounter Summary ---
[place] [address] Care Team Providers Care Media Traffic Manager Name Role Phone Bob Day MD Primary Care Provider [phone] Reason for Visit * Reason Onset Date Comments Follow Up Surgery 11/25/2016 Encounter Details Date Type Department Care Team ([facility] st Contact Info) Description 11/25/2016 Telephone General [place] [address] Sarai Herrera, RN Follow Up Surgery Social History Tobacco Use Types Packs/Day Years [...] encounter Miscellaneous Notes * Telephone Encounter - Sarai Herrera, RN - 11/25/2016 11:50 AM EDT Images from the original note were not included. Nursing Triage - Phone Note DATE OF CALL: 11/25/2016 TIME OF CALL: 11:50 AM PATIENT DATE OF : 1960 CALLER: RN to the patient Learning Needs Assessment Reviewed: Yes SUBJECTIVE - I heard from Dr Umaña that you are fine and that there are no free stones PERTINENT PAST MEDICAL HISTORY: Pt is s/p Tasia Umaña MD General Surgery []Hide copied text []Hover for attribution information Brief Operative Note ?? Patient Name: Etelvina Cuadra : [id number] MR#: [id number] ?? Case Date: 10/18/2016 ?? Surgeon: Surgeon(s) and Role: * Tasia Umaña MD - Primary * Washington Gaston MD - Resident-Surgeon Chief ?? Preoperative diagnosis: cholecystitis ?? Postoperative diagnosis: cholecystitis ?? Procedure(s) (LRB): LAPAROSCOPIC CHOLECYSTECTOMY WITH CHOLANGIOGRAM (VU 11.47) (N/A) ? Anesthesia: General ?? Findings: Distended, indurated and distended gallbladder filled with pus. No obvious stones seen in the CBD noted on cholangiogram. Filling on of the duodenum. ?? Complications: none ? Fluids: 1.8L cystalloid ?? Estimated Blood Loss: 300 mL ?? Drains: none ?? NURSING OBJECTIVE/ASSESSMENT: Pt is doing well at home. There was some confusion that there might have been stones floating in the patient. Dr Umaña spoke with me to reassure the Mrs Cuadra that she is safe and that she can travel as she wanted to and if she would like to come back and clear andfurther confusion we would be happy to see her. INTERVENTION/PLAN/ FOLLOW UP: PT is content at this time and relieved that that all is well. She declines another f/u appointment and will call with any further questions or concerns. If your symptoms do not improve, or they worsen, report to your local emergency department. CALLER AGREES: Yes PCP: Bob Day MD documented in this encounter Plan of Treatment Upcoming Encounters Date Type Department Care Team (Latest Contact Info) Description 04/06/2024 11:30 AM EST Hospital Encounter [place] [address] Cadence Eric MD [facility] [place] [address] 04/06/2024 11:30 AM EST - 04/06/2024 12:50 PM EST Surgery [place] [address] Cadence Eric MD [facility] [place] [address] IMPLANT NEUROSTIMULATOR ELECTRODES, PERIPHERAL NERVE (WRVU 5.76) 04/14/2024 2:30 PM EST Office Visit [facility] [place] [address] Cadence Eric MD [facility] [place] [address] Scheduled Procedures Name Priority Associated Diagnoses Date/Ti [...] on filedocumented in this encounter Care Teams Media Traffic Manager Relationship Specialty Start Date End Date Bob Day MD [address] [place] [address] PCP - General Family Medicine 12/21/15 06/04/17 documented as of this encounter
--- OUTSIDE RECORDS SUMMARY | 2024-04-05 16:33 | XMS_ITS | Encounter Summary ---
Author Organization [facility] [place] [address] Care Team Providers Care Part Time Receptionist Name Role Phone Brisa Christine MD Primary Care Provider Reason for Visit * Reason Comments Pain Management Encounter Details Date Type Department Care Team (Latest Contact Info) Description 06/05/2017 3:15 PM EST Procedure visit [place] [address] Karl Becker MD [facility] [place] [address] Postlaminectomy syndrome Social History Tobacco Use Types [...] Sign Reading Time Taken Comments Blood Pressure 128/89 06/05/2017 3:29 PM EST Pulse 79 06/05/2017 3:29 PM EST Temperature - - Respiratory Rate - - Oxygen Saturation 100% 06/05/2017 3:29 PM EST Inhaled Oxygen Concentration - - Weight - - Height 144.8 cm (4' 9) 06/05/2017 3:29 PM EST Body Mass Index - - documented in this encounter Procedure Notes * Karl Becker MD - 06/05/2017 3:15 PM ESTAssociated Order(s): INTRATHECAL PUMP REFILL Pre-Procedure Diagnose(s): Postlaminectomy syndrome INTRATHECAL PUMP REFILL PROCEDURE NOTE WITH REPROGRAMMING Primary Fox Farmer: Karl Becker MD ?? Professor Of Voice: Karl Becker MD ?? Reason for Reprogramming: refill ?? Diagnosis: post lami. ?? Concomitant Medical Problems: - ?? Telemetry Pre-Refill Programming Reading: Drugs/Concentrations: Morphine - Preservative Free - 10 mg/ml Daily Dose: 4.5mg ?? Telemetry Post-Refill Programming Reading: Drugs/Concentrations: Morphine - Preservative Free - 10 mg/ml Daily Dose: 4.5mg Brand/Compound: Compound. ?? Pump Capacity: 40 mL ?? Computer predicted residual volume in pump: 6.7ml ?? Measured residual volume in pump: 8ml ?? Medication or Dose Changes: no ?? Is dose change >30%? n/a ?? Is concentration of drug different? no ?? Empty syringe concentration verified by aircraft shipping checker: yes ?? If concentration of drug is different, has a bridge bolus been programmed? n/a. ?? Has any program been used other than simple continuous or bridge bolus and simple continuous? no ?? Infusion Mode: simple continuous. ?? New Alarm Date: 08/28/16 ?? PROCEDURE: Risks and expected side effects [...] drapes were applied as provided with the [employer] refill kit. A 22 gauge Moraes non-coring [...] instilled into the pump according to the travel professional's directions without difficulty. There was no evidence [...] AM EST Hospital Encounter Outpatient [place] [address] Cadence Eric MD [facility] [place] [address] 04/06/2024 11:30 AM EST - 04/06/2024 12:50 PM EST Surgery Outpatient [place] [address] Cadence Eric MD [facility] [place] [address] IMPLANT NEUROSTIMULATOR ELECTRODES, PERIPHERAL NERVE (WRVU 5.76) 04/14/2024 2:30 PM EST Office Visit [place] [address] Cadence Eric MD [facility] [place] [address] Scheduled Procedures Name Priority Associated Diagnoses Date/Ti [...] Associated Diagnosis Comments INTRATHECAL PUMP REFILL Routine 06/05/2017 4:46 PM EST Postlaminectomy syndrome documented in this encounter Results * INTRATHECAL PUMP REFILL (06/05/2017 4:46 PM EST) Narrative Karl Becker MD - 06/05/2017 4:46 PM EST Karl Becker MD ? 06/05/2017 ??4:46 PM INTRATHECAL PUMP REFILL PROCEDURE NOTE WITH REPROGRAMMING Primary Fox Farmer: Karl Becker MD ?? Professor Of Voice: Karl Becker MD ?? Reason for Reprogramming: refill ?? Diagnosis: post lami. ?? Concomitant Medical Problems: - ?? Telemetry Pre-Refill Programming Reading: Drugs/Concentrations: Morphine - Preservative Free ??- ??10 mg/ml Daily Dose: 4.5mg ?? Telemetry Post-Refill Programming Reading: Drugs/Concentrations: Morphine - Preservative Free ??- ??10 mg/ml Daily Dose: 4.5mg Brand/Compound: Compound. ?? Pump Capacity: 40 mL ?? Computer predicted residual volume in pump: 6.7ml ?? Measured residual volume in pump: 8ml ?? Medication or Dose Changes: no ?? Is dose change >30%? n/a ?? Is concentration of drug different? ??no ?? Empty syringe concentration verified by aircraft shipping checker: yes ?? If concentration of drug is different, has a bridge bolus been programmed? n/a. ?? Has any program been used other than simple continuous or bridge bolus and simple continuous? no ?? Infusion Mode: simple continuous. ?? New ??Alarm Date: 08/28/16 ?? PROCEDURE: Risks and expected side effects [...] instilled into the pump according to the travel professional's directions without difficulty. There was no evidence [...] 1 each, Intrathecal, ONCE, 1 dose, On Thu06/05/17 at 1700, Routine, Medication Name and Dose: morphine 10mg/ml Given 06/05/2017 4:43 PM EST 1 each documented in this encounter Care Teams Part Time Receptionist Relationship Specialty Start Date End Date Brisa Christine MD PCP - General Internal Medicine 06/05/17 01/17/18 documented as of this encounter
--- OUTSIDE RECORDS SUMMARY | 2024-04-05 16:33 | XMS_ITS | Encounter Summary ---
Author Organization [facility] Address [facility] [place] [address] Care Team Providers Care Medication Specialist Name Role Phone Bob Day MD Primary Care Provider [phone] Encounter Details Date Type Department Care Team (Late st Contact Info) Description 12/31/2016 Orders [place] [address] [facility] [place] [address] Social History Tobacco Use Types Packs/Day Years [...] AM EST Hospital Encounter Outpatient [place] [address] Cadence Eric MD [facility] [place] [address] 04/06/2024 11:30 AM EST - 04/06/2024 12:50 PM EST Surgery Outpatient [place] [address] Cadence Eric MD [facility] [place] [address] IMPLANT NEUROSTIMULATOR ELECTRODES, PERIPHERAL NERVE (WRVU 5.76) 04/14/2024 2:30 PM EST Office Visit [place] [address] Cadence Eric MD [facility] [place] [address] Scheduled Procedures Name Priority Associated Diagnoses Date/Ti [...] on filedocumented in this encounter Care Teams Medication Specialist Relationship Specialty Start Date End Date Bob Day MD [address] [place] [address] PCP - General Family Medicine 12/21/15 06/04/17 documented as of this encounter
--- OUTSIDE RECORDS SUMMARY | 2024-04-05 16:33 | XMS_ITS | Encounter Summary ---
Author Organization [facility] Address [facility] [place] [address] Care Team Providers Care Barrel Tester And Drainer Name Role Phone Bob Day MD Primary Care Provider [phone] Reason for Visit * Reason Onset Date Comments Pain 10/19/2016 post surgical pa in Encounter Details Date Type Department Care Team (Late st Contact Info) Description 10/19/2016 Telephone [place] [address] Gio Last MD [facility] [place] [address] Pain (post surgical pain) Social History Tobacco Use Types Packs/Day Years [...] encounter Miscellaneous Notes * Telephone Encounter - Gio Last - 10/19/2016 6:53 PM EDT Paged by anesthesia APS team Dr. Martinez for intrathecal pump pt admitted for laproscopic cholecystectomy, now s/p procedure reporting 10/10 post surgical pain to nursing so APS was paged who havenow called to review their acute plan in the setting of ITP. Patient on high dose intrathecal morphine last seen by Dr Ramon in Feb 2016 with last 2 pump refills having been performed [facility] while patient was away.Patient also on oral opioids: oxycontin 20mg Q12h with oxycodone IR 10mg Q3hPRN, tylenol 650mg 1.5 tabs Q6h and amytriptyline 125mg QHS. The above medications in total are thepatients home medication dosing. Pt reports intolerance to gabapentin and lyrica. APS suggests toradol and not increasing MME/ day any further being that further titration was felt to be likely ineffective with significant MME/ day increases. APS also reports that pt would also prefer not to increase opioid dosing any further. I concur with this plan and recommend setting expectaions for pt and nursing that patient's chronic tolerance to opioids will likely make pain difficult to control over the next 24 hours but that post operative pain should improve daily in the post op period. APS agreeswith these suggestions, all questions were answered. I invited APS to page again ifwe could be of further assistance. documented in this encounter Plan of Treatment Upcoming Encounters Date Type Department Care Team (Latest Contact Info) Description 04/06/2024 11:30 AM EST Hospital Encounter Outpatient [place] [address] Cadence Eric MD [facility] [place] [address] 04/06/2024 11:30 AM EST - 04/06/2024 12:50 PM EST Surgery Outpatient [place] [address] Cadence Eric MD [facility] [place] [address] IMPLANT NEUROSTIMULATOR ELECTRODES, PERIPHERAL NERVE (WRVU 5.76) 04/14/2024 2:30 PM EST Office Visit [facility] [place] [address] Cadence Eric MD [facility] [place] [address] Scheduled Procedures Name Priority Associated Diagnoses Date/Ti [...] on filedocumented in this encounter Care Teams Barrel Tester And Drainer Relationship Specialty Start Date End Date Bob Day MD [address] [place] [address] PCP - General Family Medicine 12/21/15 06/04/17 documented as of this encounter
--- OUTSIDE RECORDS SUMMARY | 2024-04-05 16:33 | XMS_ITS | Encounter Summary ---
Author Organization [facility] Address [facility] [place] [address] Care Team Providers Care Law Tutor Name Role Phone Bob Day MD Primary Care Provider [phone] Encounter Details Date Type Department Care Team (Late st Contact Info) Description 09/14/2017 Abstract Radiology and Cardiology Results [address] [place] [address] [facility] Conversion, Results Provider, Social History Tobacco Use [...] AM EST Hospital Encounter Outpatient [place] [address] Cadence Eric MD [facility] [place] [address] 04/06/2024 11:30 AM EST - 04/06/2024 12:50 PM EST Surgery Outpatient [place] [address] Cadence Eric MD [facility] [place] [address] IMPLANT NEUROSTIMULATOR ELECTRODES, PERIPHERAL NERVE (WRVU 5.76) 04/14/2024 2:30 PM EST Office Visit Pain and Spine Center at [facility] [place] [place] [address] Cadence Eric MD [facility] [address] Scheduled Procedures Name Priority Associated Diagnoses Date/Ti [...] Procedure Name Priority Date/Time Associated Diagnosis Comments CBC (WITH DIFF) Routine 09/14/2017 2:48 PM EDT COMPREHENSIVE METABOLIC PANEL Routine 09/14/2017 2:48 PM EDT documented in this encounter Results * (ABNORMAL) CBC (with Diff) (09/14/2017 2:48 PM EDT) Platelet 427(Exter nal Lab) 140 - 440 thou/mm3 [facility] CONVERSION Mean Cell Volume 92([facility]) 81 - 97 fl [facility] CONVERSION Hematocrit 39([facility]) 37 - 47 % [facility] CONVERSION Mean Cell Hemoglobin Concentration 33([facility]) 32 - 36 % [facility] CONVERSION Mean Cell Hemoglobin 30([facility]) 27 - 32 pg [facility] CONVERSION RDW coefficient of variation 12.9(Exte rnal Lab) 11.5 - 15.5 % [facility] CONVERSION Hemoglobin 12.6(Exte rnal Lab) 12.0 - 16.0 gm/dL [facility] CONVERSION White Blood Cell 9.2(Exter nal Lab) 4.5 - 10.0 thou/mm3 [facility] CONVERSION Red Blood Cell 4.2(Exter nal Lab) 4.2 - 5.4 mil/mm3 [facility] CONVERSION 09/14/2017 2:48 PM EDT Results Provider Nlh Conversion MD KODI CRYSTAL ORDERABLES [facility] CONVERSION * (ABNORMAL) Comprehensive metabolic panel (non-fasting) (09/14/2017 2:48 PM EDT) Est Glomerular Filtration Rate >60(Exter nal Lab) >=60 [facility] CONVERSION Chloride 99([facility]) 98 - 107 mmol/L [facility] CONVERSION Calcium 9.8(Exter nal Lab) 8.5 - 10.5 mg/dL [facility] CONVERSION Glucose 85([facility]) 65 - 199 mg/dL [facility] CONVERSION Protein, Total 8.2([facility]) 6.1 - 8.0 gm/dL [facility] CONVERSION Alanine Aminotransferase 63([facility]) 0 - 30 unit/L [facility] CONVERSION Alkaline Phosphatase 60([facility]) 40 - 104 unit/L [facility] CONVERSION Aspartate Aminotransferase 53([facility]) 0 - 30 unit/L [facility] CONVERSION Albumin 4.7(Exter nal Lab) 3.2 - 5.2 gm/dL [facility] CONVERSION Potassium 4.4(Exter nal Lab) 3.5 - 5.0 mmol/L [facility] CONVERSION Carbon Dioxide 29([facility]) 22 - 31 mmol/L [facility] CONVERSION Sodium 140(Exter nal Lab) 135 - 145 mmol/L [facility] CONVERSION Anion Gap 12([facility]) 5 - 15 mmol/L [facility] CONVERSION Blood Urea Nitrogen 11([facility]) 8 - 18 mg/dL [facility] CONVERSION Creatinine 0.87(Exte rnal Lab) 0.70 - 1.20 mg/dL [facility] CONVERSION Bilirubin, Total 0.3(Exter nal Lab) 0.2 - 1.3 mg/dL [facility] CONVERSION 09/14/2017 2:48 PM EDT Results Provider Nlh Conversion MD OCTAVIO GODINEZ ORDERABLES [facility] CONVERSION documented in this encounter Visit Diagnoses Not on filedocumented in this encounter Care Teams Law Tutor Relationship Specialty Start Date End Date Bob Day MD [address] [place] [address] PCP - General Family Medicine 01/18/18 07/26/20 documented as of this encounter
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
--- OUTSIDE RECORDS SUMMARY | 2024-04-05 16:34 | XMS_ITS | Encounter Summary ---
Author Organization Formerly [facility], [facility] Address [facility] [place] [address] Care Team Providers Care Early Childhood Name Role Phone Bob Day MD Primary Care Provider [phone] Encounter Details Date Type Department Care Team (Late st Contact Info) Description 11/15/2015 Abstract Radiology and Cardiology Results [address] [place] [address] [facility] Conversion, Results Provider, Social History [...] AM EST Hospital Encounter Outpatient [place] [address] Cadence Eric MD [facility] [place] [address] 04/06/2024 11:30 AM EST - 04/06/2024 12:50 PM EST Surgery Outpatient [place] [phone] Cadence Eric MD [facility] [place] [address] IMPLANT NEUROSTIMULATOR ELECTRODES, PERIPHERAL NERVE (WRVU 5.76) 04/14/2024 2:30 PM EST Office Visit [facility] at [facility] [place] [address] Cadence Eric MD [facility] [place] [address] Scheduled Procedures Name Priority Associated Diagnoses Date/Ti [...] Associated Diagnosis Comments CBC (WITH DIFF) Routine 11/15/2015 10:06 AM EDT TSH Routine 11/15/2015 10:06 AM EDT LIPID PANEL (REFLEX DIRECT LDL) Routine 11/15/2015 10:06 AM EDT BASIC METABOLIC PANEL Routine 11/15/2015 10:06 AM EDT documented in this encounter Results * (ABNORMAL) TSH (11/15/2015 10:06 AM EDT) Thyroid Stimulating Hormone 3.836(Ext ernal Lab) 0.460 - 4.680 uIU/mL [facility] CONVERSION 11/15/2015 10:0 6 AM EDT Results Provider Nlh Conversion MD OCTAVIO GODNIEZ ORDERABLES [facility] CONVERSION * (ABNORMAL) CBC (with Diff) (11/15/2015 10:06 AM EDT) Platelet 387(Exter nal Lab) 140 - 440 thou/mm3 [facility] CONVERSION Mean Cell Volume 92([facility]) 81 - 97 fl [facility] CONVERSION Neutrophil % 48.1(Exte rnal Lab) % [facility] CONVERSION Hematocrit 38([facility]) 37 - 47 % [facility] CONVERSION Mean Cell Hemoglobin Concentration 32([facility]) 32 - 36 % [facility] CONVERSION Mean Cell Hemoglobin 29([facility]) 27 - 32 pg [facility] CONVERSION Lymph % 27.9(Exte rnal Lab) % [facility] CONVERSION RDW coefficient of variation 13.1(Exte rnal Lab) 11.5 - 15.5 % [facility] CONVERSION Hemoglobin 12.1(Exte rnal Lab) 12.0 - 16.0 gm/dL [facility] CONVERSION Monocyte % 11.8(Exte rnal Lab) % [facility] CONVERSION Eos % 11.1(Exte rnal Lab) % [facility] CONVERSION White Blood Cell 6.6(Exter nal Lab) 4.5 - 10.0 thou/mm3 [facility] CONVERSION Red Blood Cell 4.2(Exter nal Lab) 4.2 - 5.4 mil/mm3 [facility] CONVERSION Neutrophil Absolute 3.2(Exter nal Lab) 1.6 - 6.5 thou/mm3 [facility] CONVERSION Lymphocytes Abs 1.8(Exter nal Lab) 1.2 - 3.4 thou/mm3 [facility] CONVERSION Basophil % 1.1(Exter nal Lab) % [facility] CONVERSION Monocyte Abs 0.8(ExtH) 0.1 - 0.6 thou/mm3 [facility] CONVERSION Eosinophils Abs 0.7(ExtH) 0.0 - 0.2 thou/mm3 [facility] CONVERSION Baso Absolute 0.1(Exter nal Lab) 0.0 - 0.1 thou/mm3 [facility] CONVERSION 11/15/2015 10:0 6 AM EDT Results Provider Nlh Conversion MD MARIEE OLOGY ORDERABLES [facility] CONVERSION * (ABNORMAL) Lipid Panel (Reflex Direct LDL) (11/15/2015 10:06 AM EDT) LDL Cholesterol 98([facility]) <=99 mg/dL [facility] CONVERSION Triglyceride 67([facility]) <=149 mg/dL [facility] CONVERSION HDL Cholesterol 62([facility]) >=40 mg/dL [facility] CONVERSION Cholesterol/HDL Ratio 2.8(Exter nal Lab) ratio [facility] CONVERSION Cholesterol, Total 173(Exter nal Lab) <=199 mg/dL [facility] CONVERSION 11/15/2015 10:0 6 AM EDT Results Provider Nlh Conversion MD OCTAVIO GODINEZ ORDERABLES [facility] CONVERSION * (ABNORMAL) Basic Metabolic Panel (non-fasting) (11/15/2015 10:06 AM EDT) Sodium 143([facility]) 137 - 145 mmol/L [facility] CONVERSION Chloride 102([facility]) 98 - 107 mmol/L [facility] CONVERSION Glucose 88(Externa l Lab) 65 - 99 mg/dL [facility] CONVERSION eGFR 60(Externa l Lab) >=60 mL/min/1. 73m2 [facility] CONVERSION Est Glomerular Filtration Rate 58(ExtL) >=60 mL/min/1. 73m2 [facility] CONVERSION Carbon Dioxide 27(Externa l Lab) 22.0 - 30.0 mmol/L [facility] CONVERSION Blood Urea Nitrogen 14(Externa l Lab) 7 - 20 mg/dL [facility] CONVERSION Calcium 9.5([facility]) 8.4 - 10.2 mg/dL [facility] CONVERSION Potassium 4.4([facility]) 3.6 - 5.0 mmol/L [facility] CONVERSION Creatinine 1(External Lab) 0.52 - 1.04 mg/dL [facility] CONVERSION 11/15/2015 10:0 6 AM EDT Results Provider Nlh Conversion MD OCTAVIO GODINEZ ORDERABLES [facility] CONVERSION documented in this encounter Visit Diagnoses Not on filedocumented in this encounter Care Teams Early Childhood Relationship Specialty Start Date End Date Bob Day MD [address] [place] [id number] PCP - General Family Medicine 01/18/18 07/26/20 documented as of this encounter
--- OUTSIDE RECORDS SUMMARY | 2024-04-05 16:34 | XMS_ITS | Encounter Summary ---
Author Organization [facility] [place] [address] Care Team Providers Care Veteran Appeals Reviewer Name Role Phone Bob Day MD Primary Care Provider [phone] Encounter Details Date Type Department Care Team (Late st Contact Info) Description 10/16/2010 [facility] Information Services [address] [place] [phone] Provider, His Xochitl MD Social History Tobacco Use Types Packs/Day Years Used Date Smoking Tobacco: Never Assessed Sex and Gender Information Value Date Recorded Sex Assigned at Not on file Gender Identity Not on file Sexual Orientation Not on file documented as of this encounter Last Filed Vital Signs Vital Sign Reading Time Taken Comments Blood Pressure 124/61 10/16/2010 1:30 PM EDT Shelley rced from Xochitl Conversion Pulse - - Temperature - - Respiratory Rate - - Oxygen Saturation - - Inhaled Oxygen Concentration - - Weight - - Height - - Body Mass Index - - documented in this encounter Plan of Treatment Upcoming Encounters Date Type Department Care Team (Latest Contact Info) Description 04/06/2024 11:30 AM EST Hospital Encounter Outpatient [place] [phone] Cadence Eric MD [facility] [place] [address] 04/06/2024 11:30 AM EST - 04/06/2024 12:50 PM EST Surgery Outpatient [place] [address] Cadence Eric MD [facility] [place] [address] IMPLANT NEUROSTIMULATOR ELECTRODES, PERIPHERAL NERVE (WRVU 5.76) 04/14/2024 2:30 PM EST Office Visit [place] [address] Cadence Eric MD [facility] [place] [address] Scheduled Procedures Name Priority Associated Diagnoses Date/Ti [...] on filedocumented in this encounter Care Teams Veteran Appeals Reviewer Relationship Specialty Start Date End Date Bob Day MD [address] [place] [address] PCP - General Family Medicine 12/21/15 06/04/17 documented as of this encounter
--- OUTSIDE RECORDS SUMMARY | 2024-04-05 16:34 | XMS_ITS | Encounter Summary ---
Author Organization [facility] Address [facility] [place] [address] Care Team Providers Care Shoveler Name Role Phone Mari Sewell MD Primary Care Provider Encounter Details Date Type Department Care Team (Latest Contact Info) Description 10/07/2011 3:08 PM EDT - 10/07/2011 7:30 PM EDT Hospital Encounter [place] [address] Mallika Mayorga MD [facility] [place] [place] [address] Discharge Disposition: Home Social History Tobacco Use [...] Sign Reading Time Taken Comments Blood Pressure 110/66 10/07/2011 6:03 PM EDT Pulse 65 10/07/2011 6:03 PM EDT Temperature 36.7 ??C (98.1 ??F) 10/07/2011 3:46 PM ED T Respiratory Rate 18 10/07/2011 6:03 PM EDT Oxygen Saturation 100% 10/07/2011 6:03 PM EDT Inhaled Oxygen Concentration - - Weight 90.7 kg (200 lb) 10/07/2011 3:46 PM EDT Height 152.4 cm (5') 10/07/2011 3:46 PM EDT Body Mass Index 39.06 10/07/2011 3:46 PM EDT documented in this encounter Discharge Instructions * Discharge Instructions* Haydee Guardado, RN - 10/07/2011 6:07 PM EDT Colonoscopy and polyp removal What to expect at home After the test you may be bloated or have gas pains, you may need to pass gas. You should expect the return of your normal bowel function in the next 2 to 3 days. Because some polyps were removed, you can see a little blood with the next few excretions, this should be small amounts ( less than a couple tablespoons) and will resolve on it's own. ACTIVITY You have been given a period of recovery while at the hospital but you still need to rest as much as you need to after you go home. Change from one position to the next slowly today. You may lose your balance unexpectedly. You should be able to return to your normal activities the day after the test. Diet You may eat small portions of foods that ordinarily will not upset your stomach. Be gentle with what you choose to start with. A soft diet may be helpful for the next 3 days as this may help to keep your stools soft. Avoid gas producing foods for the next couple days Drink plenty of fluids ( unless your doctor has told you not to). Medicines Avoid medicine that influence the way your blood clots for the next week. These would include anti-inflammatory medicine, such as ibuprofen( Advil, Motrin) and naproxen ( Aleve). If you need something for discomfort, Tylenol ( Acethaminophen) is OK. Your Doctor will tell you when to restart your prescribed blood thinners Other Instructions You may have received medications before and/during the procedure which effects you judgement, reaction time. FOR THE NEXT [address] OR OPERATE MACHINERY DO NOT DRINK ALCOHOLIC BEVERAGES If you are a smoker: DO NOT SMOKE WHILE YOU ARE ALONE DO NOT SIGN LEGAL DOCUMENTS IV site may get red or tender, this is normal. You may use warm compresses 20 minutes at a time on and off for the next day or so. If the tenderness +/or redness increases or foul drainage and a red streak occurs, please contact your PCP. Follow up care is a oquendo part of your treatment and safety. Be sure to make and go to all appointments, and call your doctor if you are having problems. When should you call for help? Call 911 anytime you think you may need emergency care. For example If you pass out (loss of consciousness) If you pass maroon or bloody stools If you have severe belly pain Call your Doctor now or seek immediate medical care if: Your stools are black or tar like Your stools have streaks of blood that is more pronounced with each BM You have belly pain, or your belly is swollen and firm You vomit You have a fever You are very dizzy Thursday-[facility] [phone] 8a-5p Same Day Endo [phone] 7a-8p Otherwise contact [phone] and ask to speak to the a r specialist representative personal service Watch closely for changes in your health, and be sure to contact your doctor if you have any problems. Discharge instructions reviewed with patient who expresses understanding * Patient Instructions* Mallika Mayorga MD - 10/07/2011 5:46 PM EDT Please see Recommendations in the Provation procedure report which is documented in the procedural note in E-DH. documented in this encounter Medications at Time of Discharge Medication Sig Dispensed Refills Start Date End Date citalopram (CELEXA) 40 mg tablet Take 40 mg by mouth daily. 04/12/2018 nabumetone (RELAFEN) 500 mg tablet Take 500 mg by mouth daily. 11/22/2015 OXYCODONE HCL (OXYCONTIN ORAL) 40mg, PO, BID 03/19/2010 09/09/2012 OXYcodone (ROXICODONE) 5 mg immediate release tablet 5mg, PO, Q4H,PRN 03/19/2010 09/09/2012 amitriptyline (ELAVIL) 100 mg tablet 100 MG = 1 Tablet(s), PO, QHS 03/19/2010 11/22/2015 fenofibrate (TRICOR) 145 mg tablet 145 MG = 1 Tablet(s), PO, Once daily 03/19/2010 11/22/2015 baclofen (LIORESAL) 10 mg tablet 03/19/2010 09/09/2012 levothyroxine (SYNTHROID) 100 mcg tablet 100 MCG = 1 Tablet(s), PO, Once daily 03/19/2010 07/25/2020 documented as of this encounter H&P Notes * Mallika Mayorga MD - 10/07/2011 4:23 PM EDT Gastroenterology and Hepatology Pre-Procedure History and Physical Exam Procedure: colonoscopy Indication: screening Patient Active Problem List Diagnoses Code ??? CIS - Entered not Verified ??? CIS - Post-Laminectomy Syndrome-Lumbar ??? CIS - Sciatica EXAM: HEENT: Airway examined, oropharynx clear LUNGS: Clear to auscultation HEART: Regular rate and rhythm, normal S1, S2 ABDOMEN: Normal bowel sounds, soft, non tender, non distended, A/P Proceed with colonoscopy Risks and benefits of the procedure explained to the patient. Consent signed. * Jero Solomon - 10/07/2011 3:53 PM EDT Gastroenterology & Hepatology Pre-Procedure History and Physical Procedure: Colonoscopy Indication: Screening Colonoscopy History of Present Illness: 50 year-old female presents today for her initial screening colonoscopy. No prior colonoscopy. No personal or family history of colon cancer or polyps. PMH: Patient Active Problem List Diagnoses Date Noted ??? CIS - Entered not Verified [] 03/19/2010 ??? CIS - Post-Laminectomy Syndrome-Lumbar [] ??? CIS - Sciatica [] Medications prior to admission that will be resumed at discharge: Medication Sig Dispense Refill ??? citalopram (CELEXA) 40 mg tablet Take 40 mg by mouth daily. ??? nabumetone (RELAFEN) 500 mg tablet Take 500 mg by mouth daily. ??? OXYCODONE HCL (OXYCONTIN ORAL) 40mg, PO, BID ??? OXYcodone (ROXICODONE) 5 mg immediate release tablet 5mg, PO, Q4H,PRN ??? amitriptyline (ELAVIL) 100 mg tablet 100 MG = 1 Tablet(s), PO, QHS ??? fenofibrate (TRICOR) 145 mg tablet 145 MG = 1 Tablet(s), PO, Once daily ??? baclofen (LIORESAL) 10 mg tablet ??? levothyroxine (SYNTHROID) 100 mcg tablet 100 MCG = 1 Tablet(s), PO, Once daily ??? DISCONTD: Mometasone (NASONEX) 50 mcg/Actuation Napoleon 2 [place](s) to each nostril, Nasal, Once daily No new medications prescribed at discharge. Allergies: Allergies Allergen Reactions ??? Wheat Bran CIS - Anaphylaxis ??? Wheat Flour CIS - Anaphylaxis ??? Wheat Germ Oil CIS - Anaphylaxis ??? Wheat Starch CIS - Anaphylaxis ??? Peanut CIS - Anaphylaxis ??? Peanut Oil CIS - Anaphylaxis ??? Cis Free Text Allergy WOOL. CIS - ITCH, RASH ??? Tetracycline Analogues CIS - itching ??? Hydrocodone-acetaminophen CIS - bad headache ??? Rofecoxib ??? Tetracycline CIS - ITCHING ??? Hydrocodone ??? Canine Proteins CIS - itching Exam: Patient Vitals in the past 24 hrs: BP Temp Temp src Pulse Resp SpO2 Height Weight 10/07/11 1546 115/63 mmHg 36.7 ??C (98.1 ??F) Oral 78 24 96 % 152.4 cm (5') 90.719 kg (200 lb) Chest- clear Heart- RRR, nl s1, s2 Abdomen- normal bowel sounds, soft, non tender Assessment and Plan: Colonoscopy. Propofol per Anesthesia. Risks and benefits of the procedure were discussed with the patient. Consent has been signed. documented in this encounter Miscellaneous Notes * Miscellaneous - Provider, Scanning - 10/08/2011 7:30 AM EDT * Miscellaneous - Provider, Scanning - 10/08/2011 2:18 AM EDT * Op Note - Mallika Mayorga MD - 10/07/2011 5:45 PM EDT [facility] [place] Operative Note Patient Name: Rafael Willoughby DOB: [id number] MR#: [id number] Case Date: 10/07/2011 Surgeon: Surgeon(s) and Role: * MALLIKA MAYORGA MD - Primary * JERO SOLOMON MD - Resident-Surgeon Cristhian Preoperative diagnosis: screening [consult] Full procedure note is documented under the Procedure section of eDH. documented in this encounter Plan of Treatment Upcoming Encounters Date Type Department Care Team (Latest Contact Info) Description 04/06/2024 11:30 AM EST Hospital Encounter [place] [address] Cadence Eric MD [facility] [address] 04/06/2024 11:30 AM EST - 04/06/2024 12:50 PM EST Surgery [place] [address] Cadence Eric MD [facility] [place] [address] IMPLANT NEUROSTIMULATOR ELECTRODES, PERIPHERAL NERVE (WRVU 5.76) 04/14/2024 2:30 PM EST Office Visit [place] [address] Cadence Eric MD [facility] [place] [address] Scheduled Procedures Name Priority Associated Diagnoses Date/Ti [...] Procedure Name Priority Date/Time Associated Diagnosis Comments SURGICAL PATHOLOGY REPORT Routine 10/07/2011 6:50 PM EDT SPECIMEN TO PATHOLOGY Routine 10/07/2011 5:46 PM EDT COLONOSCOPY FLEXIBLE, WITH BX (WRVU 3.56) 10/07/2011 4:22 PM EDT screening [consult] COLONOSCOPY Routine 10/07/2011 3:56 PM EDT documented in this encounter Results * SURGICAL PATHOLOGY REPORT (10/07/2011 6:50 PM EDT) Surgical Pathology Report ? [facility] ? Provider: ?? MALLIKA MAYORGA ?Pt. Name: ?? RAFAEL WILLOUGHBY ? Acc #: ?[id number] ?Pt. ? Col Date: ?? 10/07/2011 ? /Sex: ?1960,(50 years),Female ? Rec Date: ?? 10/07/2011 ? LOC: ?4T ? SURGICAL PATHOLOGY ? ---Pathologic Diagnosis--- ? Rectum, polypectomy: ?Colonic mucosa, negative for diagnostic abnormality. ?Multiple deeper levels examined. ? CR-0, CR-PX ? 10/09/11 ? VMS ? 10/09/11 Verified by: ? Basilio Leon MD ? Pathologist ? (Electronic Signature) ? The attending pathologist whose signature appears on this report has ? reviewed all diagnostic slides and has edited the gross and/or ? microscopic portion of the report in rendering the final pathologic ? diagnosis. ? ---Microscopic Description--- ? Slides reviewed, microscopic description not recorded. ? ---Gross Description--- ? Labeled/Fixativ e: ? Rectal polyp, formalin. ? Qty/Size/Weight : ?Single, 0.3 x 0.2 x 0.2 cm. ? Tissue Description: ?? Soft, ledesma tissue. ? Sections/Proces sing: ??(T1) ??vms/EJR ? ---Clinical Information--- ? Specimen Submitted: ? A - Rectal polyp ? Clinical History/Diagnos is: ? Screening. [facility] 10/07/2011 6:50 PM EDT Mallika Mayorga MD PATHOLOGY/CYTOLOGY O NELSON Performing Organization Address [facility] de Phone Number [facility] * Specimen to Pathology (surgical or derm) (10/07/2011 5:46 PM EDT) AP Specimen 10/07/2011 5:46 PM EDT 10/07/2011 5:46 PM EDT Narrative [facility] - 10/07/2011 5:46 PM EDT Specimen requisition ordered. ??Separate Pathology report to follow Mallika Mayorga MD PATHOLOGY/CYTOLOGY O NELSON Performing Organization Address [facility] de Phone Number [facility] * COLONOSCOPY (10/07/2011 3:56 PM EDT) COLONOSCOPY [facility] Endoscopy Patient Name: Rafael Willoughby ? Procedure Date: 10/07/2011 3:56 PM ? Date of : 1960 ? Age: 50 ? Order #: [id number] ? Procedure: ? Colonoscopy Indications: ? Screening for colorectal malignant ? neoplasm Patient Profile: ? chronic pain, hypercholesterolem ia, ? depression, hypthyroidism, disc ? disease, back and knee surgery, s/p ? tubal ligation Providers: ? Mallika Mayorga MD, Arlene Boone, ? RN, Chana Miller, SONNY, Jero Rosario. ? MD Lynn Referring : [...] procedure, including non-oquendo portions. ? _ Mallika Mayorga MD 10/07/2011 5:54 PM ? _ Mallika Mayorga MD 10/07/2011 5:54 PM Number of Addenda: 0 Note Initiated On: 10/07/2011 3:56 PM PROVATION 10/07/2011 3:56 PM EDT Mari Sewell MD GENERAL SURGICAL ORD ERABLES PROVATION documented in this encounter Visit Diagnoses Not on filedocumented in this encounter Administered Medications Inactive Administered Medications - up to 3 most recent administrations Medication Order MAR Action Action Date Dose Rate Site lactated ringers infusion 30 mL/hr, Intravenous, CONTINUOUS, Starting on Thu10/07/11 at 1615, Until Thu10/07/11 at 2130, Endoscopy (Day of Procedure) New Bag 10/07/2011 4:15 PM EDT 30 mL/hr 30 mL/hr documented in this encounter Active and Recently Administered Medications Times are shown in EDT. Continuous Medication Order 10/05/2011 10/06/2011 10/07/2011 lactated ringers infusion (CANCELED) 30 mL/hr, Intravenous, CONTINUOUS, Starting on Thu10/07/11 at 1615, Until Thu10/07/11 at 2130, Endoscopy (Day of Procedure) 1615 (New Bag - Prov ider: Peter Wick RN) documented in this encounter Care Teams Shoveler Relationship Specialty Start Date End Date Mari Sewell MD [address] [place] [address] PCP - General 04/02/10 09/08/12 documented as of this encounter
--- OUTSIDE RECORDS SUMMARY | 2024-04-05 16:34 | XMS_ITS | Encounter Summary ---
Author Organization [facility] Address [facility] [place] [address] Care Team Providers Care Home Health Billing Specialist Name Role Phone Mari Sewell MD Primary Care Provider Encounter Details Date Type Department Care Team (Late st Contact Info) Description 09/23/2011 3:48 PM EDT Anesthesia [place] [address] Talib Guerin MD [facility] [place] [address] Gian Garner CRNA [facility] [place] [address] Anesthesia Record Procedure Summary Procedure Name Responsible Anesthesiologist Anesthesia Start Time Anesthesia Stop Time COLONOSCOPY, DIAGNOSTIC (WRVU 3.26) (Trunk) Talib Guerin MD 09/23/11 1548 09/23/11 1618 Events Date Time Event Comment 09/23/2011 1546 1548 Start 1618 Stop Meds * Agents No agents on file. * Blood No blood administrations on file. Lines, Drains, and Airways No LDAs on file. documented in this encounter Social History Tobacco [...] OR Notes * Anesthesia Postprocedure Evaluation - Talib Guerin MD - 09/23/2011 4:35 PM EDT Patient: Etelvina Cuadra Procedure(s) Performed: Procedure(s): COLONOSCOPY, DIAGNOSTIC Patient location: PACU Post-op pain: Adequate analgesia Post-op nausea: no nausea or vomiting Last Vitals: Filed Vitals: 09/23/11 1618 BP: 117/73 Pulse: 76 Resp: 16 Post-op cardiovascular and respiratory status: is stable Level of consciousness: awake, alert and oriented Complications: no apparent complications, tolerated the procedure well and no evidence of recall Fluid Status: normal * Anesthesia Preprocedure Evaluation - Talib Guerin MD - 09/23/2011 3:16 PM EDT Anesthesia Evaluation Patient summary reviewed and Nursing notes reviewed No hx of anesthetic complications Airway Mallampati: III TM distance: >3 FB Neck ROM: full Dental - normal exam Pulmonary - negative ROS (-) recent URI Cardiovascular Exercise tolerance: poor (Limited by back and knee pain.) (-) hypertension ROS comment: Hyperlipidemia Neuro/Psych (+) psychiatric history (depression, symptoms controlled on medication) GI/Hepatic/Renal (-) GERD, hepatitis, liver disease and renal disease Endo/Other (+) hypothyroidism (on replacement ), (-) Type I DM and Type II DM Comments: Obesity Chronic pain, prn oxycodone up to 4 times per day for breakthrough pain, and oxycontin on regular schedule. Abdominal Anesthesia Plan ASA 2 MAC with intravenous induction Propofol infusion Anesthetic plan and risks discussed with patient and spouse. Plan discussed with NETWORK DESIGNER and attending. documented in this encounter Miscellaneous Notes * Addendum Note - Rose Camacho - 09/24/2011 12:35 PM EDT Addendum created 09/24/11 1235 by Rose Camacho Modules edited:Anesthesia Responsible Staff * Addendum Note - Rose Camacho - 09/24/2011 12:32 PM EDT Addendum created 09/24/11 1232 by Rose Camacho Modules edited:Anesthesia Events, Anesthesia Responsible Staff * Addendum Note - Rose Camacho - 09/24/2011 12:32 PM EDT documented in this encounter Plan of Treatment Upcoming Encounters Date Type Department Care Team (Latest Contact Info) Description 04/06/2024 11:30 AM EST Hospital Encounter [place] [address] Cadence Eric MD [facility] [place] [address] 04/06/2024 11:30 AM EST - 04/06/2024 12:50 PM EST Surgery [place] [address] Cadence Eric MD [facility] [place] [address] IMPLANT NEUROSTIMULATOR ELECTRODES, PERIPHERAL NERVE (WRVU 5.76) 04/14/2024 2:30 PM EST Office Visit [place] [address] Cadence Eric MD [facility] [place] [address] Scheduled Procedures Name Priority Associated Diagnoses Date/Ti [...] on filedocumented in this encounter Care Teams Home Health Billing Specialist Relationship Specialty Start Date End Date Mari Sewell MD [address] [place] [address] PCP - General 04/02/10 09/08/12 documented as of this encounter
--- OUTSIDE RECORDS SUMMARY | 2024-04-05 16:34 | XMS_ITS | Encounter Summary ---
Author Organization [facility] Address [facility] [place] [address] Care Team Providers Care Rug Setter Velvet Name Role Phone Mari Sewell MD Primary Care Provider [phone] Encounter Details Date Type Department Care Team (Late st Contact Info) Description 10/16/2010 1:30 PM EDT Office Visit [address] [address] Johnna Jimenez MD [address] [place] [address] Social History Tobacco Use Types Packs/Day Years [...] AM EST Hospital Encounter Outpatient [place] [address] Cadence Eric MD [facility] [place] [place] [address] 04/06/2024 11:30 AM EST - 04/06/2024 12:50 PM EST Surgery Outpatient [place] [phone] Cadence Eric MD [facility] [place] [address] IMPLANT NEUROSTIMULATOR ELECTRODES, PERIPHERAL NERVE (WRVU 5.76) 04/14/2024 2:30 PM EST Office Visit [place] [address] Cadence Eric MD [facility] [place] [address] Scheduled Procedures Name Priority Associated Diagnoses Date/Ti [...] on filedocumented in this encounter Care Teams Rug Setter Velvet Relationship Specialty Start Date End Date Mari Sewell MD [address] [place] [address] PCP - General 04/02/10 09/08/12 documented as of this encounter
--- OUTSIDE RECORDS SUMMARY | 2024-04-05 16:34 | XMS_ITS | Encounter Summary ---
Author Organization [facility] Address [facility] [place] [address] Care Team Providers Care Medical Registrar Name Role Phone Bob Day MD Primary Care Provider [phone] Encounter Details Date Type Department Care Team (Late st Contact Info) Description 09/19/2016 Orders Only [place] [phone] Jin Rod MD [facility] [place] [address] Social History Tobacco Use Types Packs/Day Years [...] AM EST Hospital Encounter Outpatient [place] [phone] Cadence Eric MD [facility] [place] [address] 04/06/2024 11:30 AM EST - 04/06/2024 12:50 PM EST Surgery Outpatient [place] [address] Cadence Eric MD [facility] [place] [address] IMPLANT NEUROSTIMULATOR ELECTRODES, PERIPHERAL NERVE (WRVU 5.76) 04/14/2024 2:30 PM EST Office Visit [facility] [place] [phone] Cadence Eric MD [facility] [place] [address] Scheduled Procedures Name Priority Associated Diagnoses Date/Ti [...] filedocumented in this encounter Care Teams Medical Registrar Relationship Specialty Start Date End Date Bob Day MD [address] [place] [address] PCP - General Family Medicine 12/21/15 06/04/17 documented as of this encounter
--- OUTSIDE RECORDS SUMMARY | 2024-04-05 16:34 | XMS_ITS | Encounter Summary ---
Author Organization [facility] Address [facility] [place] [address] Care Team Providers Care Meat Boner Name Role Phone Unknown Primary Care Provider Unavailabl e Encounter Details Date Type Department Care Team (Late st Contact Info) Description 11/17/2012 Orders [place] [phone] Jun Valiente MD [address] [place] [address] Right knee pain (Primary Dx) Social History Tobacco Use [...] AM EST Hospital Encounter Outpatient [place] [phone] Cadence Eric MD [facility] [place] [address] 04/06/2024 11:30 AM EST - 04/06/2024 12:50 PM EST Surgery Outpatient [place] [address] Cadence Eric MD [facility] [place] [address] IMPLANT NEUROSTIMULATOR ELECTRODES, PERIPHERAL NERVE (WRVU 5.76) 04/14/2024 2:30 PM EST Office Visit [place] [address] Cadence Eric MD [facility] [place] [address] Scheduled Procedures Name Priority Associated Diagnoses Date/Ti me IMPLANT NEUROSTIMULATOR ELECTRODES, PERIPHERAL NERVE (WRVU 5.76) Yes Saphenous neuralgia, right 04/06/2024 11:30 AM EST IMPLANT NEUROSTIMULATOR ELECTRODES, PERIPHERAL NERVE (WRVU 5.76) Saphenous neuralgia, 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
--- OUTSIDE RECORDS SUMMARY | 2024-04-05 16:34 | XMS_ITS | Encounter Summary ---
Author Organization [facility] [place] [address] Care Team Providers Care Haulage Boss Name Role Phone Bob Day MD Primary Care Provider [phone] Encounter Details Date Type Department Care Team (Late st Contact Info) Description 05/27/2011 Interpretation Only Radiology [address] [place] [address] [place] [address] Unknown None Social History Tobacco Use Types Packs/Day Years [...] AM EST Hospital Encounter [place]patient [place] [address] Cadence Eric MD [facility] [place] [address] 04/06/2024 11:30 AM EST - 04/06/2024 12:50 PM EST Surgery [place]patient [place] [phone] Cadence Eric MD [facility] [place] [address] IMPLANT NEUROSTIMULATOR ELECTRODES, PERIPHERAL NERVE (WRVU 5.76) 04/14/2024 2:30 PM EST Office Visit [place] [address] Cadence Eric MD [facility] [place] [address] Scheduled Procedures Name Priority Associated Diagnoses Date/Ti [...] Comments XR FLUORO NO RAD <1HR - RADIOLOGY USE Routine 05/27/2011 6:33 AM EST documented in this encounter Results * XR Fluoro <1Hr - Radiology Use (05/27/2011 6:33 AM EST) Anatomical Region Laterality Modality N/A Radiographic Merline ging 05/27/2011 6:33 AM EST Narrative 05/27/2011 6:33 AM EST APD Historical Result Principal Electronic Health Records Specialist: ??CHRISTINA ??BURNHAM SACROILIAC JOINT FUSION: FINDINGS: Intraoperative fluoroscopy was provided for Dr Trevon Stephenson for right sacroiliac joint fusion. ??No Radiologist was present for procedure. ??One set of images centered at the sacroiliac joint in the lateral and frontal projection, totalling 12 images in total, demonstrate placement of 3 radiopaque rods at a sacroiliac joint, laterality was not indicated on the images. TOTAL FLUORO TIME: 44.8 seconds. ??Cumulative dose 53.98 mGy. An additional set of images totalling 6 in the frontal projection centered at a sacroiliac joint also demonstrates interval placement of 3 radiopaque rods traversing the sacroiliac joint. ??Laterality again was not indicated on the images. TOTAL FLUORO TIME: 62 seconds. ??Cumulative dose 51.09 mGy. Christina Burnham MD DARLIN/sheila [id number] ([facility] 05/28/11) CC: Procedure Note Unknown - 11/09/2018 APD Historical Result Principal Electronic Health Records Specialist: CHRISTINA BURNHAM SACROILIAC JOINT FUSION: FINDINGS: Intraoperative fluoroscopy was provided for Dr Trevon Stephenson for rightsacroiliac joint fusion. No Radiologist was present for procedure. One set of imagescentered at the sacroiliac joint in the lateral and frontal projection, totalling 12 images in total, demonstrateplacement of 3 radiopaque rods at a sacroiliac joint, laterality was not indicated on theimages. TOTAL FLUORO TIME: 44.8 seconds. Cumulative dose 53.98 mGy. An additional set of images totalling 6 in the frontal projection centeredat a sacroiliac joint also demonstrates interval placement of 3 radiopaque rods traversingthe sacroiliac joint. Laterality again was not indicated on the images. TOTAL FLUORO TIME: 62 seconds. Cumulative dose 51.09 mGy. Christina Burnham MD DARLIN/sheila [id number] ([facility] 05/28/11) CC: Unknown IMG FLUORO ORDERABLE S documented in this encounter Visit Diagnoses Not on filedocumented in this encounter Care Teams Haulage Boss Relationship Specialty Start Date End Date Bob Day MD [address] [id number] PCP - General Family Medicine 01/18/18 07/26/20 documented as of this encounter
--- OUTSIDE RECORDS SUMMARY | 2024-04-05 16:34 | XMS_ITS | Encounter Summary ---
Author Organization [facility] [place] [address] Care Team Providers Care Associate Software Application Engineer Name Role Phone Bob Day MD Primary Care Provider [phone] Encounter Details Date Type Department Care Team (Late st Contact Info) Description 05/27/2011 Interpretation Only Radiology [address] [place] [address] [place] [address] Unknown None Social History Tobacco Use Types [...] AM EST Hospital Encounter [place] [address] Cadence Eric MD [facility] [place] [place] [address] 04/06/2024 11:30 AM EST - 04/06/2024 12:50 PM EST Surgery [place] [phone] Cadence Eric MD [facility] [place] [address] IMPLANT NEUROSTIMULATOR ELECTRODES, PERIPHERAL NERVE (WRVU 5.76) 04/14/2024 2:30 PM EST Office Visit [facility] at [facility] [place] [address] Cadence Eric MD [facility] [place] [address] Scheduled Procedures Name Priority Associated Diagnoses Date/Ti [...] Name Priority Date/Time Associated Diagnosis Comments CT SACRUM OR SI JOINTS WO CONTRAST Routine 05/27/2011 1:43 PM EST documented in this encounter Results * CT SACRUM OR SI JOINTS WO CONTRAST (05/27/2011 1:43 PM EST) Anatomical Region Laterality Modality Other 05/27/2011 1:43 PM EST Narrative 05/27/2011 1:43 PM EST APD Historical Result Principal Corrugator Helper: ??MECHELLE ??B CT SACROILIAC JOINTS WITHOUT ORAL OR IV CONTRAST: High-resolution axial data was acquired which documents the presence of 3 individual cannulated orthopaedic rods traversing the right SI joint. The rods appear confined by the bony contours with no entry into neural foramina detected. ??Coronal and sagittal images were created using the technologist workstation. ??These confirm the passage of the rods through the right SI joint. IMPRESSION: Three cannulated orthopaedic rods securing the right SI joint. ??Incidental note made of subcutaneous and muscular gas consistent with recent surgical event. Mechelle Pennington MD, FACR [facility]/ [id number] CC: Procedure Note Unknown - 11/09/2018 APD Historical Result Principal Corrugator Helper: MECHELLE Hyde CT SACROILIAC JOINTS WITHOUT ORAL OR IV CONTRAST: High-resolution axial data was acquired which documents the presence of 3individual cannulated orthopaedic rods traversing the right SI joint. The rods appear confinedby the bony contours with no entry into neural foramina detected. Coronal and sagittal images werecreated using the technologist workstation. These confirm the passage of the rods throughthe right SI joint. IMPRESSION: Three cannulated orthopaedic rods securing the right SI joint.Incidental note made of subcutaneous and muscular gas consistent with recent surgicalevent. Mechelle Pennington MD, FACR [facility]/ [id number] CC: Unknown PACS IMAGES documented in this encounter Visit Diagnoses Not on filedocumented in this encounter Care Teams Associate Software Application Engineer Relationship Specialty Start Date End Date Bob Day MD [address] [place] [address] PCP - General Family Medicine 01/18/18 07/26/20 documented as of this encounter
--- OUTSIDE RECORDS SUMMARY | 2024-04-05 16:34 | XMS_ITS | Encounter Summary ---
Author Organization [facility] Address [facility] [place] [address] Care Team Providers Care Upstairs Maid Name Role Phone Bob Day MD Primary Care Provider [phone] Reason for Visit * Reason Comments Pain Management Encounter Details Date Type Department Care Team (Latest Contact Info) Description 02/18/2016 11:00 AM EDT Procedure visit Pain [place] [address] Jose Antonio Ramon MD [facility] [place] [address] Postlaminectomy syndrome Social History Tobacco Use Types [...] Sign Reading Time Taken Comments Blood Pressure 124/67 02/18/2016 11:12 AM EDT Pulse 92 02/18/2016 11:12 AM EDT Temperature - - Respiratory Rate - - Oxygen Saturation 95% 02/18/2016 11:12 AM EDT Inhaled Oxygen Concentration - - Weight 113.9 kg (251 lb) 02/18/2016 11:12 AM EDT Height 152.4 cm (5') 02/18/2016 11:12 AM EDT Body Mass Index 49.02 02/18/2016 11:12 AM EDT documented in this encounter Procedure Notes * Jose Antonio Ramon MD - 02/18/2016 11:00 AM EDTAssociated Order(s): INTRATHECAL PUMP REFILL Pre-Procedure Diagnose(s): Postlaminectomy syndrome Electronic Analysis of intrathecal pump with Reprogramming and Refill Patient current status: Patient comes in today for regular scheduled pump refill. She has the diagnosis of lumbar postlaminectomy pain syndrome. She is visiting the area. She is about to return to [place]. She states there are no problems with the pump. Continues to control her pain well in the 2-4 range. She denies common side effects including sedation or lower extremity edema. No new painconcerns. No new neurological concerns. Telemetry Pre-Refill Programming Reading: Drugs/Concentrations: Morphine - Preservative Free - 10 mg/ml Daily Dose: 4.5 mg per day Calculated [facility] volume: 4.1 mL Measured reservoir volume: 4 Consent was signed. Proper timeout was performed. Area was prepped and draped in usual manner. Using sterile technique at all times, and the refill kit supplied by the public relations sales marketing, I was able to easily place the noncoring needle into the reservoir without difficulty. I was able to lift the pump with the needle. I was also able to unclamp the tubing and have the syringe be spontaneously filled by the existing fluid within the reservoir. Confirmation of the new medication was performed during the timeout. A 0.22 ?? filter was attached to the tubing and roughly 5 cc of the medication was infused. I then was able to aspirate the same volume back into the syringe, showing that the needle continued to be located in the pump resevior. Needle was removed without difficulty. The pump was reprogrammed with the new settings. Telemetry Post-Refill Programming Reading: Drugs/Concentrations: Morphine - Preservative Free - 10 mg/ml Daily Dose: 4.5 mg per day Volume infused: 40 mL [facility] alarm volume: 2 mL New refill date: May 12, 2016 Comments: No complications. Copy of session data report given to the patient. Jose Antonio Ramon MD Vacuum Spindle Sander of Anesthesiology Pain Management Center [facility] documented in this encounter Plan of Treatment Upcoming Encounters Date Type Department Care Team (Latest Contact Info) Description 04/06/2024 11:30 AM EST Hospital Encounter Outpatient [place] [address] Cadence Eric MD [facility] [place] [place] [address] 04/06/2024 11:30 AM EST - 04/06/2024 12:50 PM EST Surgery Outpatient [place] [address] Cadence Eric MD [facility] [place] [address] IMPLANT NEUROSTIMULATOR ELECTRODES, PERIPHERAL NERVE (WRVU 5.76) 04/14/2024 2:30 PM EST Office Visit [place] [address] Cadence Eric MD [facility] [place] [address] Scheduled Procedures Name Priority Associated Diagnoses Date/Ti [...] Associated Diagnosis Comments INTRATHECAL PUMP REFILL Routine 02/25/2016 8:34 AM EDT Postlaminectomy syndrome documented in this encounter Results * INTRATHECAL PUMP REFILL (02/25/2016 8:34 AM EDT) Narrative Jose Antonio Ramon MD - 02/25/2016 8:34 AM EDT Jose Antonio Ramon MD ? 02/25/2016 ??8:34 AM Electronic Analysis of intrathecal pump with Reprogramming and Refill Patient current status: Patient comes in today for regular scheduled pump refill. She has the diagnosis of lumbar postlaminectomy pain syndrome. She is visiting the area. She is about to return to [place]. She states there are no problems with the pump. Continues to control her pain well in the 2-4 range. She denies common side effects including sedation or lower extremity edema. No new pain concerns. No new neurological concerns. Telemetry Pre-Refill Programming Reading: Drugs/Concentrations: Morphine - Preservative Free ??- ??10 mg/ml Daily Dose: 4.5 mg per day Calculated [facility] volume: 4.1 mL Measured reservoir volume: 4 Consent was signed. ??Proper timeout was performed. ??Area was prepped and draped in usual manner. ??Using sterile technique at all times, and the refill kit supplied by the public relations sales marketing, I was able to easily place the noncoring needle into the reservoir without difficulty. ??I was able to lift the pump with the needle. I was also able to unclamp the tubing and have the syringe be spontaneously filled by the existing fluid within the reservoir. Confirmation of the new medication was performed during the timeout. ??A 0.22 ?? filter was attached to the tubing and roughly 5 cc of the medication was infused. I then was able to aspirate the same volume back into the syringe, showing that the needle continued to be located in the pump resevior. Needle was removed without difficulty. ??The pump was reprogrammed with the new settings. Telemetry Post-Refill Programming Reading: Drugs/Concentrations: Morphine - Preservative Free ??- ??10 mg/ml Daily Dose: 4.5 mg per day Volume infused: 40 mL [facility] alarm volume: 2 mL New refill date: May 12, 2016 Comments: No complications. Copy of session data report given to the patient. oJse Antonio Ramon MD Vacuum Spindle Sander of Anesthesiology Pain Management Center [facility] Jose Antonio Ramon MD PROCEDURE/MINOR SURG ICAL ORDERABLES documented in this encounter Visit Diagnoses Diagnosis Postlaminectomy syndrome Postlaminectomy syndrome, unspecified region Saphenous neuralgia, right documented in this encounter Administered Medications Inactive Administered Medications - up to 3 most recent administrations Medication Order MAR Action Action Date Dose Rate Site pain clinic compounded medication 1 each 1 each, Intrathecal, ONCE, 1 dose, On Thu02/25/16 at 0900, Routine, Medication Name and Dose: Morphine 10 mg per mL Given 02/25/2016 8:34 AM EDT 1 each documented in this encounter Care Teams Upstairs Maid Relationship Specialty Start Date End Date Bob Day MD [address] [place] [address] PCP - General Family Medicine 12/21/15 06/04/17 documented as of this encounter
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
--- OUTSIDE RECORDS SUMMARY | 2024-04-05 16:34 | XMS_ITS | Encounter Summary ---
Author Organization [facility] Address [facility] [place] [address] Care Team Providers Care Terra Cotta Mason Name Role Phone Bob Day MD Primary Care Provider [phone] Encounter Details Date Type Department Care Team (Late st Contact Info) Description 11/15/2015 [facility] Conversion Results [address] [place] [phone] [facility] Conversion, Flowsheet Provider, Social History Tobacco Use [...] Sign Reading Time Taken Comments Blood Pressure 114/74 11/15/2015 12:00 AM EDT Sourced from [facility] Conversion Pulse - - Temperature - - Respiratory Rate - - Oxygen Saturation - - Inhaled Oxygen Concentration - - Weight 113.4 kg (249 lb 15.3 oz) 11/15/2015 12:00 AM EDT Sourced from [facility] Conversion Height 153 cm (5' 0.24) 11/15/2015 12: 00 AM EDT Sourced from [facility] Conversion Body Mass Index 48.43 11/15/2015 12:00 AM EDT documented in this encounter Plan of Treatment Upcoming Encounters Date Type Department Care Team (Latest Contact Info) Description 04/06/2024 11:30 AM [facility] Hospital Encounter [place] [address] Cadence Eric MD [facility] [place] [address] 04/06/2024 11:30 AM EST - 04/06/2024 12:50 PM EST Surgery [place] [address] Cadence Eric MD [facility] [place] [address] IMPLANT NEUROSTIMULATOR ELECTRODES, PERIPHERAL NERVE (WRVU 5.76) 04/14/2024 2:30 PM EST Office Visit [place] [address] Cadence Eric MD [facility] [place] [address] Scheduled Procedures Name Priority Associated Diagnoses Date/Ti [...] on filedocumented in this encounter Care Teams Terra Cotta Mason Relationship Specialty Start Date End Date Bob Day MD [address] [place] [address] PCP - General Family Medicine 01/18/18 07/26/20 documented as of this encounter
--- OUTSIDE RECORDS SUMMARY | 2024-04-05 16:34 | XMS_ITS | Encounter Summary ---
Author Organization [facility] [place] [address] Care Team Providers Care Gas Prover Name Role Phone Unknown Primary Care Provider Unavailabl e Reason for Visit * Reason Onset Date Comments Medication Refill 11/23/2015 Encounter Details Date Type Department Care Team (Late st Contact Info) Description 11/23/2015 Refill [place] [phone] Moody Harris, RN Social History Tobacco Use Types Packs/Day [...] encounter Miscellaneous Notes * Telephone Encounter - Moody Harris LPN - 11/23/2015 1:16 PM EDT Medication order per protocol documented in this encounter Plan of Treatment Upcoming Encounters Date Type Department Care Team (Latest Contact Info) Description 04/06/2024 11:30 AM EST Hospital Encounter Outpatient [place] [phone] Cadence Eric MD [facility] [address] PAIN MANAGEMENT [place], [place] [phone] 04/06/2024 11:30 AM EST - 04/06/2024 12:50 PM EST Surgery [place]patient [place] [address] Cadence Eric MD [facility] [place] [address] IMPLANT NEUROSTIMULATOR ELECTRODES, PERIPHERAL NERVE (WRVU 5.76) 04/14/2024 2:30 PM EST Office Visit [facility] [place] [phone] Cadence Eric MD [facility] [place] [address] Scheduled Procedures Name Priority Associated Diagnoses Date/Ti [...] on filedocumented in this encounter Care Teams Gas Prover Relationship Specialty Start Date End Date Unknown None PCP - General 09/09/12 12/20/15 documented as of this encounter
--- OUTSIDE RECORDS SUMMARY | 2024-04-05 16:34 | XMS_ITS | Encounter Summary ---
Author Organization [facility] [address] Care Team Providers Care Therapeutic Consultant Name Role Phone Unknown Primary Care Provider Unavailabl e Encounter Details Date Type Department Care Team (Late st Contact Info) Description 11/28/2015 Telephone [place] [phone] Sasha Jimenez, RN Social History Tobacco Use Types Packs/Day [...] encounter Miscellaneous Notes * Telephone Encounter - Sasha Jimenez LPN - 11/28/2015 4:34 PM EDT Called the pt to inform her of her x-ray results and gave her the message per Dr. Ramon that she can proceed with physical therapy.Pt expressed understanding and agrees with the plan * Telephone Encounter - Sasha Jimenez LPN - 11/28/2015 4:32 PM EDT ----- Message from Jose Antonio Ramon MD sent at 11/26/2015 5:03 PM EDT ----- Could you please tell the patient that her x-rays show that her fusion is stable and that she can proceed with physical therapy. Thank you, SPL ----- Message ----- From: Department, Radiology Sent: 11/22/2015 12:02 PM To: Jose Antonio Ramon MD documented in this encounter Plan of Treatment Upcoming Encounters Date Type Department Care Team (Latest Contact Info) Description 04/06/2024 11:30 AM EST Hospital Encounter Outpatient [place] [address] Cadence Erci MD [facility] [place] [address] 04/06/2024 11:30 AM EST - 04/06/2024 12:50 PM EST Surgery [place]patient [place] [address] Cadence Eric MD [facility] [place] [address] IMPLANT NEUROSTIMULATOR ELECTRODES, PERIPHERAL NERVE (WRVU 5.76) 04/14/2024 2:30 PM EST Office Visit [place] [address] Cadence Eric MD [facility] [place] [address] Scheduled Procedures Name Priority Associated Diagnoses Date/Ti [...] on filedocumented in this encounter Care Teams Therapeutic Consultant Relationship Specialty Start Date End Date Unknown None PCP - General 09/09/12 12/20/15 documented as of this encounter
--- OUTSIDE RECORDS SUMMARY | 2024-04-05 16:34 | XMS_ITS | Encounter Summary ---
Author Organization [facility] Address [facility] [place] [address] Care Team Providers Care Western Tack Assembly Line Worker Name Role Phone Bob Day MD Primary Care Provider [phone] Encounter Details Date Type Department Care Team (Latest Contact Info) Description 01/16/2016 9:39 PM EDT - 01/16/2016 11:59 PM EDT Hospital [place] [address] Discharge Disposition: Home Social History Tobacco Use [...] Release (E.C.) Take by mouth Daily. 01/16/201602/20 morphine 100 % Powd 10 mg/mL by Intrathecal route continuous. 42 mL 11/30/2015 09/19/2016 fenofibrate (TRIGLIDE) 160 mg Tablet Take 160 [...] AM EST Hospital Encounter [place]patient [place] [address] Cadence Eric MD [facility] [place] [address] 04/06/2024 11:30 AM EST - 04/06/2024 12:50 PM EST Surgery [place]patient [place] [address] Cadence Eric MD [facility] [place] [address] IMPLANT NEUROSTIMULATOR ELECTRODES, PERIPHERAL NERVE (WRVU 5.76) 04/14/2024 2:30 PM EST Office Visit [place] [address] Cadence Eric MD [facility] [place] [address] Scheduled Procedures Name Priority Associated Diagnoses Date/Ti [...] Procedure Name Priority Date/Time Associated Diagnosis Comments ELEMENT[employer] S[employer] PROFESSIONAL CYTOLOGY INTERPRETATION Routine 01/16/2016 12:30 PM EDT ELE[employer] S[employer] PROFESSIONAL CYTOLOGY FINAL REPORT Routine 01/16/2016 12:30 PM EDT documented in this encounter Results * Glass Technologist Cytology Final Report (01/16/2016 12:30 PM EDT) Glass Technologist Cytology Final Report [id number] ? Location: [facility] The signing pathologist has (i) examined the relevant preparation(s) for the specimen(s) and (ii) rendered or confirmed the diagnosis(es). . ? Glass Technologist Final DIAGNOSIS Normal Negative for Intraepithelial Lesion or Malignancy (NILM). For consensus guidelines for the management of cervical cancer screening test results, please see: ?? http://www.asccp.o rg/guidelines . Electronically signed by: ??CHIP Malone(ASCP), Tiffanie Nina Verified: ??01/18/2016 ?Hand Silvering Supervisor Screened: ??01/18/2016 ?SLA HPV RESULTS Not applicable (HPV testing either not indicated or not requested by clinician). STATEMENT OF ADEQUACY Specimen submitted is satisfactory for evaluation. No endocervical component present. Note: ??Initial cross-sectional studies suggested that DAVID cells were more commonly identified when an endocervical component was present, however subsequent longitudinal studies fail to show that women lacking an endocervical component in a Pap smear are at increased risk for DAVID. CLINICAL INFORMATION HPV Option: ? Reflex HPV Preparation: ?Liquid Based Pap Specimen Source: ?Endocervical/LBP LMP: ?N/A Postmenopausal Hormones?: ?No Hysterectomy?: ?No ?: ?No ?: ?No I.U.D.?: ?No Pelvic Radiation: ? No Prior ELEMENT[employer] SCHO[employer] PROFESSIONAL Therapy?: ? No Hist Abnl Pap/Biopsy?: ??Yes Hist of HPV Vaccine?: ?? No Hist of Smoking?: ? Yes Hist of RIANA exposure?: ??No Clinical Data, Significant Therapy and Clinical Impression ?? : Referring Identifier: ??[id number] Note: The Pap test is a screening test for cervical cancer with an inherent false-negative rate dependent upon several variables. ??For further information please contact the [facility] Laboratory. Reference: ??Abendroth CS. ??Keyboarding Clerk of Pap Smear Results. ??In: ??Antonia BS, Eliseo HH, ed. ??The Pap Smear. ??[place]: ??Gonzalez, 2002: ??71-77. [facility] 01/16/2016 12:3 0 PM EDT Narrative Resulting Agency Comment Spec In Lab / [facility] Bob Day MD PATHOLOGY/CYTOLOG Y ORDERABLES [facility] [place] [address] * E[employer] PROFESSIONAL Cytology Interpretation (01/16/2016 12:30 PM EDT) Glass Technologist Cytology Interpretation NILM [facility] Comment:Glass Technologist Cytology Final R eport Endocervical Component Not Present [facility] AP Specimen 01/16/2016 12:3 0 PM EDT 01/18/2016 3:02 PM EDT Narrative Resulting Agency Comment Spec In Lab / [facility] Bob Day MD PATHOLOGY/CYTOLOG Y ORDERABLES Performing Organization Address City/State/[facility] Co de Phone Number [facility] [place] [address] documented in this encounter Visit Diagnoses Not on filedocumented in this encounter Care Teams Western Tack Assembly Line Worker Relationship Specialty Start Date End Date Bob Day MD [address] [place] [address] PCP - General Family Medicine 12/21/15 06/04/17 documented as of this encounter
--- OUTSIDE RECORDS SUMMARY | 2024-04-05 16:34 | XMS_ITS | Encounter Summary ---
Author Organization [facility] [place] [address] Care Team Providers Care Multiple Knife Edge Trimmer Operator Name Role Phone Bob Day MD Primary Care Provider [phone] Encounter Details Date Type Department Care Team (Late st Contact Info) Description 09/04/2011 Interpretation Only Radiology [address] [place] [address] [place] [address] Unknown None Social History Tobacco Use Types [...] AM EST Hospital Encounter Outpatient [place] [address] Cadence Eric MD [facility] [place] [address] 04/06/2024 11:30 AM EST - 04/06/2024 12:50 PM EST Surgery [place]patient [place] [phone] Cadence Eric MD [facility] [place] [address] IMPLANT NEUROSTIMULATOR ELECTRODES, PERIPHERAL NERVE (WRVU 5.76) 04/14/2024 2:30 PM EST Office Visit [facility] and Spine Center at [facility] [place] [address] Cadence Eric MD [facility] PAIN [place] [address] Scheduled Procedures Name Priority Associated Diagnoses Date/Ti [...] Diagnosis Comments XR KNEE AP & LAT RIGHT Routine 09/04/2011 10:22 AM EDT documented in this encounter Results * XR Knee 1-2 Views Right (Generic) (09/04/2011 10:22 AM EDT) Anatomical Region Laterality Modality Knee Right Radiographic Merline ging 09/04/2011 10:2 2 AM EDT Narrative 09/04/2011 10:22 AM EDT APD Historical Result Principal Personal Lines Sales Rep: ??ROSENDO ??LILIBETH RIGHT KNEE: INDICATION: ??Knee effusion, assess joint. COMPARISON: ??MRI right knee, March 18, 2011. FINDINGS: Two views of the right knee show no fracture or dislocation. ??There is mild loss of joint space in the medial compartment. ??There is a moderate size joint effusion. ??There is no fracture or dislocation. IMPRESSION: Joint effusion progressive from March 2011 given the differences in technique. Rosendo Mcelroy DO LITA/sheila [id number] CC: Procedure Note Unknown - 11/09/2018 APD Historical Result Principal Personal Lines Sales Rep: ROSENDO MCELROY RIGHT KNEE: INDICATION: Knee effusion, assess joint. COMPARISON: MRI right knee, March 18, 2011. FINDINGS: Two views of the right knee show no fracture or dislocation. There ismild loss of joint space in the medial compartment. There is a moderate size joint effusion.There is no fracture or dislocation. IMPRESSION: Joint effusion progressive from March 2011 given thedifferences in technique. Rosendo Mcelroy DO LITA/sheila [id number] CC: Unknown IMG DX ORDERABLES documented in this encounter Visit Diagnoses Not on filedocumented in this encounter Care Teams Multiple Knife Edge Trimmer Operator Relationship Specialty Start Date End Date Bob Day MD [address] [place] [address] PCP - General Family Medicine 01/18/18 07/26/20 documented as of this encounter
--- OUTSIDE RECORDS SUMMARY | 2024-04-05 16:34 | XMS_ITS | Encounter Summary ---
Author Organization [facility] Address [facility] [place] [address] Care Team Providers Care Resistor Inspector Name Role Phone Bob Day MD Primary Care Provider [phone] Encounter Details Date Type Department Care Team (Late st Contact Info) Description 01/16/2016 [facility] Conversion Results [address] [place] [phone] [facility] Conversion, Flowsheet Provider, Social History [...] Reading Time Taken Comments Blood Pressure 120/77 01/16/2016 12:00 AM EDT [facility] Conversion Pulse - - Temperature - - Respiratory Rate - - Oxygen Saturation - - Inhaled Oxygen Concentration - - Weight 113.9 kg (251 lb) 01/16/2016 12: 00 AM EDT [facility] Conversion Height 153 cm (5' 0.24) 01/16/2016 12: 00 AM EDT [facility] Conversion Body Mass Index 48.64 01/16/2016 12:00 AM EDT documented in this encounter Plan of Treatment Upcoming Encounters Date Type Department Care Team (Latest Contact Info) Description 04/06/2024 11:30 AM [facility] En[facility] [place] [place] [address] Cadence Eric MD [facility] [place] [address] 04/06/2024 11:30 AM EST - 04/06/2024 12:50 PM EST Surgery [place] [address] Cadence Eric MD [facility] [place] [address] IMPLANT NEUROSTIMULATOR ELECTRODES, PERIPHERAL NERVE (WRVU 5.76) 04/14/2024 2:30 PM EST Office Visit [place] [address] Cadence Eric MD [facility] [place] [address] Scheduled Procedures Name Priority Associated Diagnoses Date/Ti [...] on filedocumented in this encounter Care Teams Resistor Inspector Relationship Specialty Start Date End Date Bob Day MD [address] [place] [address] PCP - General Family Medicine 01/18/18 07/26/20 documented as of this encounter
--- OUTSIDE RECORDS SUMMARY | 2024-04-05 16:34 | XMS_ITS | Encounter Summary ---
Author Organization [facility] Address [facility] [place] [address] Care Team Providers Care Manipulative Therapy Specialist Name Role Phone Unknown Primary Care Provider Unavailabl e Encounter Details Date Type Department Care Team (Latest Contact Info) Description 11/22/2015 9:56 AM EDT - 11/22/2015 11:59 PM EDT Hospital Encounter XRay at [address] [place] [address] Jose Antonio Ramon MD [facility] [place] [address] S/P lumbar fusion Discharge Disposition: Home Social History Tobacco Use [...] Sig Dispensed Refills Start Date End Date fenofibrate (TRIGLIDE) 160 mg Tablet Take 160 [...] AM EST Hospital Encounter Outpatient [place] [address] Cadence Eric MD [facility] [address] 04/06/2024 11:30 AM EST - 04/06/2024 12:50 PM EST Surgery [place]patient [place] [address] Cadence Eric MD [facility] [place] [address] IMPLANT NEUROSTIMULATOR ELECTRODES, PERIPHERAL NERVE (WRVU 5.76) 04/14/2024 2:30 PM EST Office Visit [place] [address] Cadence Eric MD [facility] [address] Scheduled Procedures Name Priority Associated Diagnoses Date/Ti [...] Name Priority Date/Time Associated Diagnosis Comments XR LUMBAR SPINE FLEXION EXTENSION ONLY Routine 11/22/2015 10:32 AM EDT S/P lumbar fusion documented in this encounter Results * XR Lumbar Spine [...] Diagnoses Diagnosis S/P lumbar fusion Arthrodesis status Saphenous neuralgia, right documented in this encounter Care Teams Manipulative Therapy Specialist Relationship Specialty Start Date End Date Unknown None PCP - General 09/09/12 12/20/15 documented as of this encounter
--- OUTSIDE RECORDS SUMMARY | 2024-04-05 16:34 | XMS_ITS | Encounter Summary ---
Author Organization [facility] [place] [address] Care Team Providers Care Psychometric Examiner Name Role Phone Unknown Primary Care Provider Unavailabl e Encounter Details Date Type Department Care Team (Late st Contact Info) Description 12/11/2015 External [place] [phone] Social History Tobacco Use Types Packs/Day Years [...] AM EST Hospital Encounter [place]patient [place] [address] Cadence Eric MD [facility] [address] 04/06/2024 11:30 AM EST - 04/06/2024 12:50 PM EST Surgery [place]patient [place] [phone] Cadence Eric MD [facility] [address] IMPLANT NEUROSTIMULATOR ELECTRODES, PERIPHERAL NERVE (WRVU 5.76) 04/14/2024 2:30 PM EST Office Visit [facility] [place] [address] Cadence Eric MD [facility] [place] [address] Scheduled Procedures Name Priority Associated Diagnoses Date/Ti [...] Procedure Name Priority Date/Time Associated Diagnosis Comments IMPLANTABLE DEVICES SCAN Routine 11/22/2015 documented in this encounter Results * Scan Doc: Implantable Devices (11/22/2015) Historical Provider MD FIERRO MGR SCAN EX T ORDR/RSLT documented in this encounter Visit Diagnoses Not on filedocumented in this encounter Care Teams Psychometric Examiner Relationship Specialty Start Date End Date Unknown None PCP - General 09/09/12 12/20/15 documented as of this encounter
--- OUTSIDE RECORDS SUMMARY | 2024-04-05 16:34 | XMS_ITS | Encounter Summary ---
Author Organization [facility] Address [facility] [place] [address] Care Team Providers Care Quality Assurance Test Program Manager Name Role Phone Mari Sewell MD Primary Care Provider Encounter Details Date Type Department Care Team (Late st Contact Info) Description 09/23/2011 3:15 PM EDT - 09/23/2011 4:00 PM EDT [place] [address] Nikki Mayorga MD [facility] [place] [address] COLONOSCOPY, DIAGNOSTIC (WRVU 3.26) Social History Tobacco Use Types Packs/Day Years [...] Sign Reading Time Taken Comments Blood Pressure 117/73 09/23/2011 4:18 PM EDT Pulse 76 09/23/2011 4:18 PM EDT Temperature - - Respiratory Rate 16 09/23/2011 4:18 PM EDT Oxygen Saturation 100% 09/23/2011 4:18 PM EDT Inhaled Oxygen Concentration - - Weight - - Height - - Body Mass Index - - documented in this encounter Discharge Instructions * Discharge Instructions* Hanna Hightower RN - 09/23/2011 4:20 PM EDT You may have received medication before and/or during your procedure which effects judgement and reaction time. Do not drive, operate machinery, drink alcoholic beverages, or make important decisions for 24 hours. Be careful on stairs, as you may be unsteady on your feet. You may eat a regular diet as tolerated. Do not smoke if you are alone. IV site-- slight redness or tenderness is normal. You may use a warm compress. If tenderness and redness increases for foul drainage occurs please contact your M.D. Please call [phone] before 5pm with problems, questions or concerns. After 5pm call [phone] and ask to speak with the vice president of brand management instruction assistant principal. Discharge instructions reviewed with patient who expresses's understanding. * Patient Instructions* Nikki Myaorga MD - 09/23/2011 4:13 PM EDT Please see Recommendations in the Provation procedure report which is documented in the procedural note in E-DH. * Attachments The following attachments cannot be sent through Care Everywhere. * COLONOSCOPY: WHAT TO EXPECT AT HOME (CONGOLESE) documented in this encounter Medications at Time of Discharge Medication Sig Dispensed Refills Start Date End Date OXYCODONE HCL (OXYCONTIN ORAL) 40mg, PO, BID [...] as of this encounter H&P Notes * Nikki Mayorga MD - 09/23/2011 3:52 PM EDT Gastroenterology and Hepatology Pre-Procedure History [...] procedure explained to the patient. Consent signed. documented in this encounter Miscellaneous Notes * Miscellaneous - Provider, Scanning - 09/25/2011 1:10 AM EDT * Miscellaneous - Provider, Scanning - 09/25/2011 12:18 AM EDT * Miscellaneous - Provider, Scanning - 09/24/2011 7:07 AM EDT * Miscellaneous - Provider, Scanning - 09/23/2011 6:38 PM EDT * Op Note - Nikki Mayorga MD - 09/23/2011 4:12 PM EDT [facility] Operative Note Patient Name: Etelvina Cuadra : [id number] MR#: [id number] Case Date: 09/23/2011 Surgeon: Surgeon(s) and Role: * NIKKI MAYORGA MD - Primary Preoperative diagnosis: screening [consult] Full procedure note is documented under the Procedure section of eDH. documented in this encounter Plan of Treatment Upcoming Encounters Date Type Department Care Team (Latest Contact Info) Description 04/06/2024 11:30 AM EST Hospital Encounter Outpatient [place] [address] Cadence Eric MD [facility] [place] [address] 04/06/2024 11:30 AM EST - 04/06/2024 12:50 PM EST Surgery [place]patient [place] [address] Cadence Eric MD [facility] [place] [address] IMPLANT NEUROSTIMULATOR ELECTRODES, PERIPHERAL NERVE (WRVU 5.76) 04/14/2024 2:30 PM EST Office Visit [place] [address] Cadence Eric MD [facility] [place] [address] Scheduled Procedures Name Priority Associated Diagnoses Date/Ti [...] Procedure Name Priority Date/Time Associated Diagnosis Comments COLONOSCOPY, DIAGNOSTIC (WRVU 3.26) 09/23/2011 3:54 PM EDT screening [consult] COLONOSCOPY Routine 09/23/2011 3:40 PM EDT documented in this encounter Results * COLONOSCOPY (09/23/2011 3:40 PM EDT) COLONOSCOPY [facility] Endoscopy Patient Name: Etelvina Cuadra ? Procedure Date: 09/23/2011 3:40 PM ? Date of : 1960 ? Age: 50 ? Order #: [id number] ? Procedure: ? Colonoscopy Indications: ? Screening for colorectal malignant ? neoplasm Patient Profile: ? chronic pain, hypercholesterole jayde, ? depression, hypothyroidism, disc ? disease, s/p back and knee surgery Providers: ? Nikki Mayorga MD, Arlene Boone, ? RN, Chana Miller, SONNY, Abi Kamara, ? RN, Tiffanie Quintero, Customer Engineer Referring MD: ?Mari Sewell MD Medicines: ? Propofol per anesthesia Complications: ? No immediate complications. [...] Colonoscope was inserted in the ? anus The procedure was aborted. The ? colonscope was not inserted. cecum ? Medications were sigmoid colon. The ? quality of the bowel preparation was ? inadequate, with a very large volume ? of thick semi-liquid stool coating ? the mucosa and in deep puddles to the ? extent of the exam. This could not be ? cleared and adequate visualization, ? despite clearing, was not possible. ? The scope was therefore withdrawn and ? the procedure aborted due to poor ? prep. ? Findings: ? Inadequate prep ? Impression: ?- Preparation of the colon was ? inadequate. Recommendation: ?- Repeat colonoscopy with a two day ? prep: mag citrate day before, full ? 1/2 Nulytely day before colo and full ? 1/2 gallon on day of exam, with clear ? liquids. ? - Return to primary care physician. ? __ Nikki Mayorga MD 09/23/2011 4:21 PM ? Number of Addenda: 0 Note Initiated On: 09/23/2011 3:40 PM PROVATION 09/23/2011 3:40 PM EDT Mari Sewell MD GENERAL SURGICAL ORD ERABLES PROVATION documented in this encounter Visit Diagnoses Not on filedocumented in this encounter Administered Medications Inactive Administered Medications - up to 3 most recent administrations Medication Order MAR Action Action Date Dose Rate Site lactated ringers infusion 100 mL/hr, Intravenous, CONTINUOUS, Starting on Thu09/23/11 at 1600, Until Thu09/23/11 at 1948, Endoscopy (Day of Procedure) New Bag 09/23/2011 4:00 PM EDT 100 mL/hr 100 mL/hr documented in this encounter Active and Recently Administered Medications Times are shown in EDT. Continuous Medication Order 09/21/2011 09/22/2011 09/23/2011 lactated ringers infusion (CANCELED) 100 mL/hr, Intravenous, CONTINUOUS, Starting on Thu09/23/11 at 1600, Until Thu09/23/11 at 1948, Endoscopy (Day of Procedure) 1600 (New Bag - Prov ider: Marcia Bearden RN) documented in this encounter Care Teams Quality Assurance Test Program Manager Relationship Specialty Start Date End Date Mari Sewell MD [address] [place] [id number] PCP - General 04/02/10 09/08/12 documented as of this encounter
--- OUTSIDE RECORDS SUMMARY | 2024-04-05 16:34 | XMS_ITS | Encounter Summary ---
Author Organization [facility] [place] [address] Care Team Providers Care Agent Based Modeler Name Role Phone Bob Day MD Primary Care Provider [phone] Encounter Details Date Type Department Care Team (Late st Contact Info) Description 09/04/2011 Interpretation Only Radiology [address] [place] [address] [place] [address] Unknown None Social History Tobacco Use Types [...] AM EST Hospital Encounter [place]patient [place] [address] Cadence Eric MD [facility] [place] [place] [address] 04/06/2024 11:30 AM EST - 04/06/2024 12:50 PM EST Surgery [place] [phone] Cadence Eric MD [facility] [place] [place] [address] IMPLANT NEUROSTIMULATOR ELECTRODES, PERIPHERAL NERVE (WRVU 5.76) 04/14/2024 2:30 PM EST Office Visit [facility] and Sp[facility] Center at [facility] [place] [address] Cadence Eric MD [facility] [place] [address] Scheduled Procedures Name Priority Associated Diagnoses Date/Ti [...] Procedure Name Priority Date/Time Associated Diagnosis Comments MRI LOWER EXTREMITY JOINT WO CONTRAST RIGHT Routine 09/04/2011 11:27 AM EDT documented in this encounter Results * MRI LOWER EXTREMITY JOINT WO CONTRAST RIGHT (09/04/2011 11:27 AM EDT) Anatomical Region Laterality Modality Other 09/04/2011 11:2 7 AM EDT Narrative 09/04/2011 11:27 AM EDT APD Historical Result Principal Data Clerk: ??ROSENDO ??ESCHBACH MRI RIGHT KNEE: INDICATION: ??Status post arthroscopy, 3 months, recent new onset of pain and effusion. ??Assess for loose body versus meniscus versus bone lesion. COMPARISON: ??MRI right knee, March 18, 2011, right knee, September 04, 2011. TECHNIQUE: ??At 1.5 janet, noncontrast sagittal T1, T2 fat saturation, and actual proton-density inversion recovery sequences are obtained. FINDINGS: There are small osteophytes projecting off the medial femoral condyle and medial tibial plateau. ??There is underlying subtle marrow edema in the adjacent medial femoral condyle and medial tibial plateau. ??There is mild truncation of the medial meniscus. ??There is a very small full-thickness cartilage defect on the medial femoral condyle. ??Findings suggest a very small radial tear. ??There is mucoid degeneration of the posterior horn of both the medial and lateral meniscus. ACL and PCL are intact. Medial collateral and lateral collateral ligaments are intact. There is a large joint effusion in the suprapatellar recess. The extensor mechanism is intact. ??There is increasing prepatellar edema. There is no marrow signal abnormality to suggest fracture. Patella is slightly subluxed laterally. ??There is asymmetry within the patellofemoral space when the medial facet is compared to laterally with narrowing laterally. ??The trochlear groove is somewhat shallow. There is mild fissuring along the patellar cartilage along the medial facet. IMPRESSION: (1) Small radial tear of the medial meniscus. ??(2) Question patellar tracking abnormalities. ??(3) Increased joint effusion when compared to prior exam. ??(4) Increased prepatellar edema when compared to prior exam. Rosendo Mcelroy DO LITA/sheila [id number] CC: Procedure Note Unknown - 11/09/2018 APD Historical Result Principal Data Clerk: ROSENDO MCELROY MRI RIGHT KNEE: INDICATION: Status post arthroscopy, 3 months, recent new onset of painand effusion. Assess for loose body versus meniscus versus bone lesion. COMPARISON: MRI right knee, March 18, 2011, right knee, August. TECHNIQUE: At 1.5 janet, noncontrast sagittal T1, T2 fat saturation, andactual proton-density inversion recovery sequences are obtained. FINDINGS: There are small osteophytes projecting off the medial femoral condyle andmedial tibial plateau. There is underlying subtle marrow edema in the adjacent medialfemoral condyle and medial tibial plateau. There is mild truncation of the medial meniscus. There is jarod small full-thickness cartilage defect on the medial femoral condyle. Findingssuggest a very small radial tear. There is mucoid degeneration of the posterior horn of both the medial and lateralmeniscus. ACL and PCL are intact. Medial collateral and lateral collateral ligaments are intact. There is a large joint effusion in the suprapatellar recess. The extensor mechanism is intact. There is increasing prepatellaredema. There is no marrow signal abnormality to suggest fracture. Patella is slightly subluxed laterally. There is asymmetry within thepatellofemoral space when the medial facet is compared to laterally with narrowing laterally.The trochlear groove is somewhat shallow. There is mild fissuring along the patellar cartilage along the medialfacet. IMPRESSION: (1) Small radial tear of the medial meniscus. (2) Questionpatellar tracking abnormalities. (3) Increased joint effusion when compared to prior exam.(4) Increased prepatellar edema when compared to prior exam. Rosendo Mcelroy DO Winnie [id number] CC: Unknown PACS IMAGES documented in this encounter Visit Diagnoses Not on filedocumented in this encounter Care Teams Agent Based Modeler Relationship Specialty Start Date End Date Bob Day MD [address] [place] [address] PCP - General Family Medicine 01/18/18 07/26/20 documented as of this encounter
--- OUTSIDE RECORDS SUMMARY | 2024-04-05 16:34 | XMS_ITS | Encounter Summary ---
Author Organization [facility] [place] [address] Care Team Providers Care Mail Distribution Scheme Examiner Name Role Phone Bob Day MD Primary Care Provider [phone] Encounter Details Date Type Department Care Team (Late st Contact Info) Description 03/18/2011 Interpretation Only Radiology [address] [place] [address] [place] [phone] Unknown None Social History Tobacco Use Types [...] AM EST Hospital Encounter Outpatient [place] [address] Cadence Eric MD [facility] [place] [address] 04/06/2024 11:30 AM EST - 04/06/2024 12:50 PM EST Surgery [place] [phone] Cadence Eric MD [facility] [place] [address] IMPLANT NEUROSTIMULATOR ELECTRODES, PERIPHERAL NERVE (WRVU 5.76) 04/14/2024 2:30 PM EST Office Visit Pain and Spine Center at [facility] [place] [address] Cadence Eric MD [facility] PAIN [place] [address] Scheduled Procedures Name Priority Associated Diagnoses Date/Ti [...] LOWER EXTREMITY JOINT WO CONTRAST RIGHT Routine 03/18/2011 12:48 PM EST documented in this encounter Results * MRI LOWER EXTREMITY JOINT WO CONTRAST RIGHT (03/18/2011 12:48 PM EST) Anatomical Region Laterality Modality Other 03/18/2011 12:4 8 PM EST Narrative 03/18/2011 12:48 PM EST APD Historical Result Principal Supervisory Geographer: ??ALDAIR ??VIAGLORIA MRI RIGHT KNEE: CLINICAL HISTORY: ??Evaluate knee for swelling and pain in meniscus and fracture. TECHNIQUE: ??MR of the right knee without contrast. FINDINGS: There is a small knee effusion and prepatellar soft tissue swelling. ??In the patellofemoral compartment, there is mild fissuring of the articular cartilage along the median ridge without full-thickness defects or subchondral bony involvement. ??Bone marrow is normal and no fractures are seen. ??ACL and PCL are intact. ??Medial and lateral meniscus similarly are intact without discrete tears. ??Medial collateral ligament and lateral collateral complexes are intact. Articular cartilage is preserved. IMPRESSION: Small knee effusion with minimal patellofemoral chondromalacia. ??No other significant abnormalities. Aldair Viazmenski, MD SOLOMON/mn [id number] CC: Procedure Note Unknown - 11/09/2018 APD Historical Result Principal Supervisory Geographer: ALDAIR MENCHACA MRI RIGHT KNEE: CLINICAL HISTORY: Evaluate knee for swelling and pain in meniscus andfracture. TECHNIQUE: MR of the right knee without contrast. FINDINGS: There is a small knee effusion and prepatellar soft tissue swelling. Inthe patellofemoral compartment, there is mild fissuring of the articular cartilage along themedian ridge without full-thickness defects or subchondral bony involvement. Bone marrow isnormal and no fractures are seen. ACL and PCL are intact. Medial and lateral meniscus similarlyare intact without discrete tears. Medial collateral ligament and lateral collateral complexes areintact. Articular cartilage is preserved. IMPRESSION: Small knee effusion with minimal patellofemoralchondromalacia. No other significant abnormalities. Aldair Menchaca MD SOLOMON/sheila [id number] CC: Unknown PACS IMAGES documented in this encounter Visit Diagnoses Not on filedocumented in this encounter Care Teams Mail Distribution Scheme Examiner Relationship Specialty Start Date End [place] [address] PCP - General Family Medicine 01/18/18 07/26/20 documented as of this encounter
--- OUTSIDE RECORDS SUMMARY | 2024-04-05 16:34 | XMS_ITS | Encounter Summary ---
Author Organization [facility] Address [facility] [place] [address] Care Team Providers Care Machine Ii Trimmer Name Role Phone Mari Sewell MD Primary Care Provider Encounter Details Date Type Department Care Team (Latest Contact Info) Description 09/23/2011 2:28 PM EDT - 09/23/2011 5:48 PM EDT Hospital En[place] [address] Nikki Mayorga MD [facility] [place] [address] Discharge Disposition: Home Social History Tobacco Use [...] occurs please contact your M.D. Please call [phone] before 5pm with problems, questions or concerns. After 5pm call [phone] and ask to speak with the brake coupler road freight risk consulting treasury director. Discharge instructions reviewed with patient who expresses's understanding. * Patient Instructions* Nikki Mayorga MD - 09/23/2011 4:13 PM EDT Please see Recommendations in the Provation procedure report which is documented in the procedural note in E-DH. * Attachments The following attachments cannot be sent through Care Everywhere. * COLONOSCOPY: WHAT TO EXPECT AT HOME (YORUBA) documented in this encounter Medications at Time [...] Mayorga MD - 09/23/2011 4:12 PM EDT [facility] [place] [facility] Operative Note Patient Name: Etelvina Cuadra : [id number] MR#: [id number] Case Date: 09/23/2011 Surgeon: Surgeon(s) and Role: * NIKKI MAYORGA MD - Primary Preoperative diagnosis: screening [consult] Full procedure note is documented under the Procedure section of eDH. documented in this encounter Plan of Treatment Upcoming Encounters Date Type Department Care Team (Latest Contact Info) Description 04/06/2024 11:30 AM EST Hospital Encounter [place] [address] Cadence Eric MD [facility] [place] [address] 04/06/2024 11:30 AM EST - 04/06/2024 12:50 PM EST Surgery [place]patient [place] [address] Cadence Eric MD [facility] [place] [address] IMPLANT NEUROSTIMULATOR ELECTRODES, PERIPHERAL NERVE (WRVU 5.76) 04/14/2024 2:30 PM EST Office Visit [place] [address] Cadence Eric MD [facility] [place] [address] Scheduled Procedures Name Priority Associated Diagnoses Date/Ti [...] * COLONOSCOPY (09/23/2011 3:40 PM EDT) COLONOSCOPY [facility] Endoscopy Patient Name: Etelvina Cuadra ? Procedure Date: 09/23/2011 3:40 PM ? Date of : 1960 ? Age: 50 ? Order #: [id number] ? Procedure: ? Colonoscopy Indications: ? Screening for colorectal malignant ? neoplasm Patient Profile: ? chronic pain, hypercholesterole jayde, ? depression, hypothyroidism, disc ? disease, s/p back and knee surgery Providers: ? Nikki Mayorga MD, Arlene Boone, ? RN, Chana Miller RN, Abi Kamara, ? RN, Tiffanie Quintero, Boiler Coverer Helper Referring MD: ?Mari Sewell MD Medicines: ? [...] RN) documented in this encounter Care Teams Machine Ii Trimmer Relationship Specialty Start Date End Date Mari Sewell MD [address] [place] [id number] PCP - General 04/02/10 09/08/12 documented as of this encounter
--- OUTSIDE RECORDS SUMMARY | 2024-04-05 16:34 | XMS_ITS | Encounter Summary ---
Author Organization [facility] Address [facility] [place] [address] Care Team Providers Care Under Ground Miner Name Role Phone Unknown Primary Care Provider Unavailabl e Reason for Visit * Reason Comments Pain Management Encounter Details Date Type Department Care Team (Latest Contact Info) Description 11/30/2015 4:00 PM EDT Procedure [place] [address] Jose Antonio Ramon MD [facility] [place] [address] Chronic bilateral low back pain with bilateral [...] Sign Reading Time Taken Comments Blood Pressure 152/85 11/30/2015 4:13 PM EDT Pulse 90 11/30/2015 4:13 PM EDT Temperature - - Respiratory Rate - - Oxygen Saturation 98% 11/30/2015 4:13 PM EDT Inhaled Oxygen Concentration - - Weight 97.5 kg (215 lb) 11/30/2015 4:13 PM EDT Height 152.4 cm (5') 11/30/2015 4:13 PM EDT Body Mass Index 41.99 11/30/2015 4:13 PM EDT documented in this encounter Procedure Notes * Jose Antonio Ramon MD - 11/30/2015 4:00 PM EDTAssociated Order(s): INTRATHECAL PUMP REFILL Pre-Procedure Diagnose(s): Chronic bilateral low back pain with bilateral sciatica Electronic Analysis of intrathecal pump with Reprogramming and Refill Patient current status: This is a patient to our clinic. Patient is being seen here today because of a spinal infusion pump refill. She is temporarily in our area. She will be leaving probably in mid-to-late February. She status post placement of a spinal infusion pump for lumbar postlaminectomy pain syndrome. She denies any adverse side effects including sedation or lower extremity edema. She denies any new pain concerns. She denies any new neurological concerns. Pain is under reasonable control with an average pain score 4. Telemetry Pre-Refill Programming Reading: Drugs/Concentrations: Morphine - Preservative Free - 10 mg/ml Daily Dose: 4.5 mg per day continuous infusion Calculated Virgin volume: 3.6 mL Measured reservoir volume: 4 mL Consent was signed. Proper timeout was performed. Area was prepped and draped in usual manner. Using sterile technique at all times, and the refill kit supplied by the fire fighter, I was able to easily place the [...] mg per day Volume infused: 40 mL Virgin alarm volume: 2 mL New refill date: February 22, 2016 Comments: No concerns regarding a refill. Copy of session data report given to the patient. Highly likely patient will need 1 more refill before she returns to her regular pain management physician. Jose Antonio Ramon MD Hair Sample Matcher of Anesthesiology [facility] documented in this encounter Plan of Treatment Upcoming Encounters Date Type Department Care Team (Latest Contact Info) Description 04/06/2024 11:30 AM EST Hospital Encounter [place] [address] Cadence Eric MD [facility] [address] [place] [address] 04/06/2024 11:30 AM EST - 04/06/2024 12:50 PM EST Surgery [place] [address] Cadence Eric MD [facility] PA[place] [address] IMPLANT NEUROSTIMULATOR ELECTRODES, PERIPHERAL NERVE (WRVU 5.76) 04/14/2024 2:30 PM EST Office Visit [facility] [place] [address] Cadence Eric MD [facility] [place] [address] Scheduled Procedures Name Priority Associated Diagnoses Date/Ti [...] Associated Diagnosis Comments INTRATHECAL PUMP REFILL Routine 12/09/2015 11:19 AM EDT Chronic bilateral low back pain with bilateral sciatica documented in this encounter Results * INTRATHECAL PUMP REFILL (12/09/2015 11:19 AM EDT) Narrative Jose Antonio Ramon MD - 12/09/2015 11:19 AM EDT Jose Antonio Ramon MD ? 12/09/2015 11:19 AM Electronic Analysis of intrathecal pump with Reprogramming and Refill Patient current status: This is a patient to our clinic. Patient is being seen here today because of a spinal infusion pump refill. She is temporarily in our area. She will be leaving probably in mid-to-late February. She status post placement of a spinal infusion pump for lumbar postlaminectomy pain syndrome. She denies any adverse side effects including sedation or lower extremity edema. She denies any new pain concerns. She denies any new neurological concerns. Pain is under reasonable control with an average pain score 4. Telemetry Pre-Refill Programming Reading: Drugs/Concentrations: Morphine - Preservative Free ??- ??10 mg/ml Daily Dose: 4.5 mg per day continuous infusion Calculated Virgin volume: 3.6 mL Measured reservoir volume: 4 mL Consent was signed. ??Proper timeout was performed. ??Area was prepped and draped in usual manner. ??Using sterile technique at all times, and the refill kit supplied by the fire fighter, I was able to easily place the [...] mg per day Volume infused: 40 mL Virgin alarm volume: 2 mL New refill date: February 22, 2016 Comments: No concerns regarding a refill. Copy of session data report given to the patient. Highly likely patient will need 1 more refill before she returns to her regular pain management physician. 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
--- OUTSIDE RECORDS SUMMARY | 2024-04-05 16:34 | XMS_ITS | Encounter Summary ---
Author Organization [facility] Address [facility] [place] [address] Care Team Providers Care Cnc Grinder Name Role Phone Mari Sewell MD Primary Care Provider Encounter Details Date Type Department Care Team (Late st Contact Info) Description 10/07/2011 4:00 PM EDT - 10/07/2011 5:00 PM EDT Surgery [place] [address] Mallika Mayorga MD [facility] [place] [address] COLONOSCOPY FLEXIBLE, WITH BX (WRVU 3.56) Social History Tobacco Use Types Packs/Day Years [...] fever You are very dizzy Thursday-Thursday Clinic [phone] 8a-5p Same Day Endo [phone] 7a-8p Otherwise contact [phone] and ask to speak to the court security officer contribution solicitor Watch closely for changes in your health, [...] daily ??? DISCONTD: Mometasone (NASONEX) 50 mcg/Actuation [place] 2 [place](s) to each nostril, Nasal, Once daily No [...] Mayorga MD - 10/07/2011 5:45 PM EDT [facility] [place] Patient Name: Rafael Willoughby : [id number] MR#: [id number] Case Date: 10/07/2011 Surgeon: Surgeon(s) and Role: * MALLIKA MAYORGA MD - Primary * JERO SOLOMON MD - Resident-Surgeon Cristhian Preoperative diagnosis: screening [consult] Full procedure note is documented under the Procedure section of eDH. documented in this encounter Plan of Treatment Upcoming Encounters Date Type Department Care Team (Latest Contact Info) Description 04/06/2024 11:30 AM EST Hospital Encounter Outpatient [place] [address] Cadence Eric MD [facility] [place] [address] 04/06/2024 11:30 AM EST - 04/06/2024 12:50 PM EST Surgery Outpatient [place] [address] Cadence Eric MD [facility] [place] [address] IMPLANT NEUROSTIMULATOR ELECTRODES, PERIPHERAL NERVE (WRVU 5.76) 04/14/2024 2:30 PM EST Office Visit [place] [address] Cadence Eric MD [facility] [place] [address] Scheduled Procedures Name Priority Associated Diagnoses Date/Ti [...] 6:50 PM EDT) Surgical Pathology Report ? [facility] ? Provider: ?? MALLIKA MAYORGA ?Pt. Name: ?? RAFAEL WILLOUHGBY ? Acc #: ?[id number] ?Pt. ? Col Date: ?? 10/07/2011 ? [...] polyp ? Clinical History/Diagnos is: ? Screening. HANSEL MILLENNIUM 10/07/2011 6:50 PM EDT Mallika Mayorga MD PATHOLOGY/CYTOLOGY O [place] Performing Organization Address [facility] Co de Phone Number HANSEL SANTACRUZ * Specimen to Pathology (surgical or derm) (10/07/2011 5:46 PM EDT) AP Specimen 10/07/2011 5:46 PM EDT 10/07/2011 5:46 PM EDT Narrative CERNER MILLENNIUM - 10/07/2011 5:46 PM EDT Specimen requisition ordered. ??Separate Pathology report to follow Mallika Mayorga MD PATHOLOGY/CYTOLOGY O [place] Performing Organization Address [facility]/State/ZIP Co de Phone Number HANSEL LOWENNIUM * COLONOSCOPY (10/07/2011 3:56 PM EDT) COLONOSCOPY [facility] Endoscopy Patient Name: Rafael Willoughby ? Procedure Date: 10/07/2011 3:56 PM ? Date of : 1960 ? Age: 50 ? Order #: [id number] ? Procedure: ? Colonoscopy Indications: ? Screening for colorectal malignant ? neoplasm Patient Profile: ? chronic pain, hypercholesterolem ia, ? depression, hypthyroidism, disc ? disease, back and knee surgery, s/p ? tubal ligation Providers: ? Mallika Mayorga MD, Arlene Boone, ? RN, Chana Miller RN, Jero Rosario. ? MD Lynn Referring MD: ?Mari Sewell MD Medicines: ? propofol per [...] RN) documented in this encounter Care Teams Cnc Grinder Relationship Specialty Start Date End Date Mari Sewell MD [address] [place] [id number] PCP - General 04/02/10 09/08/12 documented as of this encounter
--- OUTSIDE RECORDS SUMMARY | 2024-04-05 16:34 | XMS_ITS | Encounter Summary ---
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 Wayne ([id number]) on 10/17/2016 4:46:20 PM MUSE SYSTEM 10/17/2016 11:5 6 AM EDT 10/17/2016 4:46 PM EDT Ke P Tim DO ECG ORDERABLES MUSE SYSTEM * ABORH Recheck Status (10/17/2016 11:41 AM EDT) ABORH Type Recheck Completed [facility] Blood specimen (specimen) 10/17/2016 11:41 AM EDT 10/17/2016 11:41 AM EDT Narrative Resulting Agency Comment Spec In Lab Ke Dumont DO BLOOD BANK LAB ORDER ALLAN [facility] [place] [address] * Antibody screen (10/17/2016 11:41 AM EDT) Ab Screen Interp Negative [facility] Expires at [id number] on: 10/20/2016 [facility] Blood specimen (specimen) 10/17/2016 11:41 AM EDT 10/17/2016 11:41 AM EDT Narrative Resulting Agency Comment Spec In Lab Ke Dumont DO BLOOD BANK LAB ORDER ALLAN Performing Organization Address City/[facility]/ZIP Co de Phone Number [facility] [place] [address] * ABO/Rh Typing (10/17/2016 11:41 AM EDT) ABORH Type A Pos [facility] Blood specimen (specimen) 10/17/2016 11:41 AM EDT 10/17/2016 11:41 AM EDT Narrative Resulting Agency Comment Spec In Lab Ke Dumont DO BLOOD BANK LAB ORDER ALLAN [facility] [place] [address] * US Abdomen Limited (10/17/2016 10:23 AM [...] 10:35 am) PATIENT INFO: ID #: ? [id number] ?: ??[birth year] (55 yrs) Name: ? RAFAEL Aponte FARTUN ? Visit Date: 10/17/2016 10:22 am PERFORMED BY: Performed By: ? Dulce Maria Mensah RDMS Attending: ?Faby DAWSON, Jaylene Brown Referred By: ?WOODY KAUFMAN Location: ? [place] SERVICE(S) PROVIDED: ??UABDLIM - Abdominal Limited Survey Single ? [id number] ??Organ or Quadrant - [id number] INDICATIONS: ??eval for acute cholecystiits. RUQ abd [...] 10/17/2016 10:35 am) PATIENT INFO: ID #: [id number] : 62 (55 yrs) Name: RAFAEL WILLOUGHBY Visit Date: 10/17/2016 10:22 am PERFORMED BY: Performed By: Dulce Maria Mensah RDMS Attending: Jaylene Hobbs MD Referred By: WOODY KAUFMAN Location: [place] SERVICE(S) PROVIDED: UABDLIM - Abdominal Limited Survey Single [id number] Organ or Quadrant - [id number] INDICATIONS: eval for acute cholecystiits. RUQ abd [...] (10/17/2016 9:59 AM EDT) Plat estimate Normal [facility] RBC Morphology Normal [facility] Blood specimen (specimen) 10/17/2016 9:59 AM EDT 10/17/2016 10:18 AM EDT Narrative Resulting Agency Comment Spec In Lab Woody Kaufman MD HEMATOLOGY ORDERABLE S Performing Organization Address City/[facility]/ZIP Co de Phone Number [facility] [place] [address] * Lipase (10/17/2016 9:59 AM EDT) Pathologist [facility] Lipase 12 0 - 60 unit/L [facility] Blood specimen (specimen) Venous Draw / Unknown 10/17/2016 9:59 AM EDT 10/17/2016 10:18 AM EDT Narrative Resulting Agency Comment Spec In Lab Woody Kaufman MD CHEMISTRY ORDERABLES Performing Organization Address City/[facility]/ZIP Co de Phone Number [facility] [place] [address] * Troponin T (10/17/2016 9:59 AM EDT) Troponin-T <0.03 <=0.03 ng/mL [facility] Comment: 0.03 ng/mL: Represents the 99th percentile upper reference limit for normals. >0.03 ng/mL: Elevated cardiac troponin T level indicative of myocardial damage. Diagnosis of acute, evolving or recent PA requires a typical rise and gradual fall [...] consensus document of the Joint Society of Cardiology/[place] [employer] Committee for the redefinition of myocardial infarction. ??Journal of the [place] College [employer] 2000; 36: 959-969] Blood specimen (specimen) Venous Draw / Unknown 10/17/2016 9:59 AM EDT 10/17/2016 10:18 AM EDT Narrative Resulting Agency Comment Spec In Lab Woody Kaufman MD CHEMISTRY ORDERABLES Performing Organization Address [facility] Co de Phone Number [facility] [place] [address] * Gold Tube HOLD (10/17/2016 9:59 AM EDT) Gold Hold Sample in lab. [facility] Blood specimen (specimen) Venous Draw / Unknown 10/17/2016 9:59 AM EDT 10/17/2016 10:19 AM EDT Woody Kaufman MD CHEMISTRY ORDERABLES Performing Organization Address [facility] Co de Phone Number [facility] [place] [address] * Blue Tube HOLD (10/17/2016 9:59 AM EDT) Blue Hold Sample in lab. [facility] Blood specimen (specimen) Venous Draw / Unknown 10/17/2016 9:59 AM EDT 10/17/2016 10:18 AM EDT Woody Kaufman MD HEMATOLOGY ORDERABLE S Performing Organization Address [facility]/ZIP Co de Phone Number [facility] [place] [address] * (ABNORMAL) Differential, Automated (10/17/2016 9:59 AM EDT) Neutrophil % 86.7 % [facility] Neutrophil Absolute 16.47(H) 1.70 - 6.10 x10(3)/mc L [facility] Lymph % 4.5 % [facility] Lymphocytes Abs 0.8(L) 0.9 - 3.2 x10(3)/mc L [facility] Monocyte % 7.0 % [facility] Monocyte Abs 1.3(H) 0.3 - 0.9 x10(3)/mc L [facility] Eos % 0.2 % [facility] Eosinophils Abs 0.0 0.0 - 0.4 x10(3)/[facility] Basophil % 0.2 % [facility] Baso Absolute 0.0 0.0 - 0.1 x10(3)/mc L [facility] Immature Gran % 1.40 % [facility] Comment: Immature granulocytes(IG's)percentage and absolute count will include metamyelocytes, myelocytes, and promyelocytes. Blood smears from CBCs yielding IG's will be scanned manually for concordance. If this scan disagrees with the automated IG or if promyelocytes are noted, a manual differential will be performed. Immature Gran Absolute 0.26(H) 0.00 - 0.04 x10(3)/mc L [facility] Blood specimen (specimen) 10/17/2016 9:59 AM EDT 10/17/2016 10:18 AM EDT Narrative Resulting Agency Comment Spec In Lab Woody Kaufman MD HEMATOLOGY ORDERABLE S [facility] [place] [address] * (ABNORMAL) Hemogram (10/17/2016 9:59 AM EDT) White Blood Cell 19.0(H) 4.0 - 9.5 x10(3)/[facility] Red Blood Cell 4.77 4.00 - 5.21 x10(6)/[facility] Hemoglobin 14.0 11.7 - 15.5 gm/dL [facility] Hematocrit 41.8 35.7 - 45.8 % [facility] Mean Cell Volume 87.6 82.6 - 94.4 [facility] Mean Cell Hemoglobin 29.4 27.1 - 32.0 pg [facility] Mean Cell Hemoglobin Concentration 33.5 31.7 - 35.0 gm/dL [facility] Platelet 308 145 - 357 x10(3)/[facility] RDW Standard Deviation 40.4 37.0 - 46.0 [facility] RDW coefficient of variation 12.6 11.5 - 14.1 % [facility] Mean Platelet Volume 10.9 7.6 - 12.9 [facility] NRBC% auto 0.0 % [facility] NRBC Absolute 0.000 0.000 - 0.000 x10(3)/[facility] Blood specimen (specimen) 10/17/2016 9:59 AM EDT 10/17/2016 10:18 AM EDT Narrative Resulting Agency Comment Spec In Lab Woody Kaufman MD HEMATOLOGY ORDERABLE S [facility] [place] [address] * (ABNORMAL) CMP w/fasting Glucose (10/17/2016 9:59 AM EDT) Glucose Fasting 164(H) 65 - 99 mg/dL [facility] Comment: ?Fasting* Glucose Interpretive Criteria [...] of Diabetes Mellitus, Position Statement from the [place] [employer]. ??Diabetes Care, Volume 33, Supplement 1, May 2009 Blood Urea Nitrogen 11 8 - 18 mg/dL [facility] Creatinine 0.99 0.70 - 1.20 mg/dL [facility] Comment: Please note that the pediatric reference intervals supplied above were not validated at [facility]. Results from pediatric patients should be interpreted in conjunction to the patient's age, height and muscle mass. Sodium 133(L) 135 - 145 mmol/L [facility] Potassium 3.6 3.5 - 5.0 mmol/L [facility] Comment: Please note: ??Patients with WBC >100,000 may have falsely elevated Potassium levels. ??For accurate Potassium quantification in these patients send serum separator tube (gold top) for subsequent determinations. ??Contact the Clinical Chemistry Laboratory if there are any questions. Chloride 92(L) 98 - 107 mmol/L [facility] Carbon Dioxide 22 22 - 31 mmol/L [facility] Anion Gap 19(H) 5 - 15 mmol/L [facility] Calcium 9.3 8.5 - 10.5 mg/dL [facility] Protein, Total 8.3(H) 6.1 - 8.0 gm/dL [facility] Albumin 4.0 3.2 - 5.2 gm/dL [facility] Aspartate Aminotransferase 23 0 - 30 unit/L [facility] Alanine Aminotransferase 42(H) 0 - 30 unit/L [facility] Alkaline Phosphatase 68 40 - 104 unit/L [facility] Bilirubin, Total 0.7 0.2 - 1.3 mg/dL [facility] Bilirubin, Direct 0.3 0.0 - 0.3 mg/dL [facility] Est Glomerular Filtration Rate 58(L) >=60 [facility] Comment: This estimated GFR (eGFR) [...] the following links into your internet browser. [email or web address] Blood specimen (specimen) 10/17/2016 9:59 AM EDT 10/17/2016 10:18 AM EDT Narrative Resulting Agency Comment Spec In Lab Woody Kaufman MD CHEMISTRY ORDERABLES [facility] [place] [address] documented in this encounter Visit Diagnoses Not on filedocumented in this encounter Admitting Diagnoses Diagnosis Cholecystitis [...] Given 10/20/2016 12:03 PM EDT 1,000 mg amitriptyline (ELAVIL) tablet 125 mg 125 mg, Oral, NIGHTLY, First dose on Thu10/17/16 at 2100, Until Discontinued, Routine Given 10/19/2016 8:11 PM EDT 125 mg Given 10/18/2016 9:31 PM EDT 100 mg Given 10/17/2016 9:07 PM EDT 125 mg BUpivacaine (PF) (MARCAINE) 0.25 % (2.5 mg/mL) injection ONCE PRN, Starting on 6/10/17 at 1557, Until Thu10/20/16 at 1829, Intra-Operative (Intra-Procedure), Routine Given 10/18/2016 3:57 PM EDT 14 mLs citalopram (CeleXA) tablet 40 mg 40 mg, [...] Routine heparin (porcine) subcutaneous injection 5,000 Units 5,000 Units, Subcutaneous, EVERY 8 HOURS, First dose on Thu10/19/16 at 0900, Until Discontinued, Routine Given 10/20/2016 9:15 AM EDT 5,000 Unit s Given 10/20/2016 12:26 AM EDT 5,000 Units Given 10/19/2016 5:52 PM EDT 5,000 Units ibuprofen (ADVIL;MOTRIN) tablet 600 mg 600 mg, Oral, EVERY 6 HOURS SCHEDULED, First dose on Thu10/20/16 at 1500, Until Discontinued, Administer orally with milk or food to minimize GI irritation. Maximum dose of 3200 mg from all sources in 24 hours, Routine Given 10/20/2016 2:56 PM EDT 600 mg iohexol (OMNIPAQUE) 300 mg/mL solution ONCE PRN, Starting on Thu10/18/16 at 1451, Until Thu10/20/16 at 1829, Intra-Operative (Intra-Procedure), Routine Given 10/18/2016 2:51 PM EDT 40 mLs levothyroxine (SYNTHROID) tablet 100 mcg 100 mcg, Oral, DAILY, First dose on Thu10/17/16 at 1700, Until Discontinued, Routine Given 10/20/2016 9:15 AM EDT 100 mcg Given 10/19/2016 9:04 AM EDT 100 mcg Given 10/18/2016 9:37 AM EDT 100 mcg ondansetron (ZOFRAN) injection 4 mg 4 mg, Intravenous, EVERY 8 HOURS PRN, Starting on 10/18/16 at 2029, Until Thu10/20/16 at 1829, Nausea, STAT Given 10/18/2016 8:38 PM EDT 4 mg oxyCODONE (OxyCONTIN) CR tablet 20 mg [...] Oral, EVERY 3 HOURS PRN, Starting on 10/19/16 at 0749, Until Thu10/20/16 at 1829, Pain, Routine Given 10/20/2016 12:17 PM EDT 10 mg Given 10/20/2016 9:15 AM EDT 10 mg Given 10/20/2016 5:40 AM EDT 10 mg pantoprazole (PROTONIX) tablet 40 mg 40 mg, Oral, DAILY, First dose on Thu10/20/16 at 0900, Until Discontinued, DO NOT CRUSH OR OPEN Given 10/20/2016 9:15 AM EDT 40 mg senna (SENOKOT) tablet 17.2 mg 17.2 mg, Oral, 2 TIMES DAILY, First dose on Thu10/20/16 at 1200, Until Discontinued, Routine Given 10/20/2016 12:03 PM EDT 17.2 mg documented in this encounter Active and Recently Administered Medications Times are shown in EDT. Scheduled Medication Order 10/18/2016 10/19/2016 10/20/2016 acetaminophen (TYLENOL) tablet 1,000 mg 1,000 mg, Oral, EVERY 6 HOURS SCHEDULED, First dose on 10/20/16 at 1200, Until Discontinued, Maximum dose of acetaminophen is 4000 mg from all sources in 24 hours., Routine 1203 (Given - Provider: Mirella Le, SONNY) acetaminophen (TYLENOL) tablet 975 mg (CANCELED) 975 [...] SONNY) 0540 (Given - Provider: Debbie Conroy RN)0600 (Not Given - Provider: Debbie Conroy RN - Reason: Patient/family refused) amitriptyline (ELAVIL) tablet 125 mg 125 mg, Oral, NIGHTLY, First dose on Thu10/17/16 at 2100, Until Discontinued, Routine 1110 (JUL Hold - Provider: Admin Adt - Reason: Transfer to a Procedural area)1934 (JUL Unhold - Provider: Admin Adt)2130 (Given - Provider: Marilia Do RN - Comment: Patient only wants to take 100mg.) 2010 (Given - Provider: Debbie Conroy RN) citalopram (CeleXA) tablet 40 mg 40 mg, Oral, DAILY, First dose on Thu10/17/16 at 1700, Until Discontinued, Routine 0937 (Given - Provider: Tasia Arellano RN)1110 (JUL Hold - Provider: Admin Adt - Reason: Transfer to a Procedural area)1934 (JUL Unhold - Provider: Admin Adt) 09 (Given - Provider: Tiffanie Suarez RN) 0915 (Given - Provider: Mirella Le, SONNY) docusate sodium (COLACE) capsule 100 mg 100 mg, Oral, 2 TIMES DAILY, First dose on Thu10/18/16 at 2100, Until Discontinued, Routine 2133 (Given - Provider: Marilia Do RN) 09 (Given - Provider: Tiffanie Suarez RN)2010 (Given - Provider: Debbie E Vincent, RN) 0915 (Given - Provider: Mirella Le RN) fenofibrate micronized (LOFIBRA) capsule 200 mg 200 mg, Oral, DAILY WITH BREAKFAST, First dose on Thu10/21/16 at 0800, Until Discontinued, Routine heparin (porcine) subcutaneous injection 5,000 Units (COMPLETED) 5,000 Units, Subcutaneous, FLIGHT ATTENDANT RAMP TO O.R., 1 dose, On Thu10/18/16 at 0900, Routine 0939 (Given - Provider: Tasia Arellano RN) heparin (porcine) subcutaneous injection 5,000 Units 5,000 Units, Subcutaneous, EVERY 8 HOURS, First dose on Thu10/19/16 at 0900, Until Discontinued, Routine 0903 (Given - Provider: Tiffanie Suarez RN)1752 (Given - Provider: Tiffanie Suarez RN) 0026 (Given - Provider: Debbie Conroy RN)0915 (Given - Provider: Mirella Le RN) HYDROmorphone (DILAUDID) injection 0.3 mg (COMPLETED) 0.3 mg, Intravenous, ONCE, 1 dose, On Thu10/18/16 at 2045, Routine 204 (Given - Provider: Marilia Do RN) ibuprofen (ADVIL;MOTRIN) tablet 600 mg 600 mg, Oral, EVERY 6 HOURS SCHEDULED, First dose on Thu10/20/16 at 1500, Until Discontinued, Administer orally with milk or food to minimize GI irritation. Maximum dose of 3200 mg from all sources in 24 hours, Routine 1456 (Given - Provider: Mirella Le RN) ketorolac (TORADOL) injection 15 mg (CANCELED) 15 mg, Intravenous, EVERY 6 HOURS SCHEDULED, 20 doses, First dose on Thu10/19/16 at 1200, Last dose on Thu10/24/16 at 0600, Routine 1147 (Given - Provider: Tiffanie Suarez RN)1753 (Given - Provider: Tiffanie Suarez RN)2311 (Given - Provider: Debbie Conroy, SONNY) 0540 (Given - Provider: Debbie Conroy, SONNY) levothyroxine (SYNTHROID) tablet 100 mcg 100 mcg, Oral, DAILY, First dose on Thu10/17/16 at 1700, Until Discontinued, Routine 0937 (Given - Provider: Tasia Arellano RN)1110 (JUL Hold - Provider: Admin Adt - Reason: Transfer to a Procedural area)1935 (JUL Unhold - Provider: Admin Adt) 0904 (Given - Provider: Tiffanie Suarez, SONNY) 0915 (Given - Provider: Mirella Le, SONNY) [...] having ok pain control now. Not needed.) 022 (Given - Provider: Ирина Yanes RN) oxyCODONE (OxyCONTIN) CR tablet 20 mg 20 mg, Oral, EVERY 12 HOURS SCHEDULED (2 times per day), First dose on 10/18/16 at 2100, Until Discontinued, DO NOT CRUSH OR OPEN, Routine 2133 (Given - Provider: Marilia Do RN) 0558 (Given - Provider: Marilia Do RN)1753 (Given - Provider: Tiffanie Suarez, SONNY) [...] Procedural area)1628 (JUL Unhold - Provider: Adelina Mayfield, SONNY)1800 (Not Given - Provider: Adelina Mayfield RN - Reason: See comment - Comment: duplication) pantoprazole (PROTONIX) injection 40 mg (CANCELED) 40 mg, Intravenous, DAILY, First dose on Thu10/17/16 at 2000, Until Discontinued 0938 (Given - Provider: Tasia Arellano RN)1110 (JUL Hold - Provider: Admin Adt - Reason: Transfer to a Procedural area)1935 (JUL Unhold - Provider: Admin Adt) 0901 (Given - Provider: Tiffanie Suarez, SONNY) pantoprazole (PROTONIX) tablet 40 mg 40 mg, Oral, DAILY, First dose on Thu10/20/16 at 0900, Until Discontinued, DO NOT CRUSH OR OPEN 0915 (Given - Provider: Mirella Le RN) piperacillin-tazobactam (ZOSYN) 3.375 g vial attach to sodium chloride 0.9% 50 mL Mini-Bag Plus (COMPLETED) 3.375 g, Intravenous, FLIGHT ATTENDANT RAMP TO O.R., 1 dose, On 10/18/16 at 0900, Administer over 4 Hours, Warning Vesicant/Irritant Medication , Indication for (Active or Suspected): GI/Intra-abdominal 40 (Given - Provider: Tasia Arellano RN) piperacillin-tazobactam (ZOSYN) 3.375 g vial attach to sodium chloride 0.9% 50 mL Mini-Bag Plus (COMPLETED) 3.375 g, Intravenous, EVERY 8 HOURS, 3 doses, First dose on 10/18/16 at 1645, Last dose on 10/19/16 at 1500, Administer over 4 Hours, Warning Vesicant/Irritant Medication , Indication for (Active or Suspected): GI/Intra-abdominal 2010 (Canceled Entry - Provider: Marilia Do RN - Reason: See comment - Comment: Trying to verify with pharmacy that patient received dose of Zosyn at 1530. Next dose should be due around 2330 then.)2348 (Given - Provider: Marilia Do RN) 0411 (IV Stop - Provider: Marilia Do RN)0600 (Given - Provider: Marilia Do RN)1405 (Given - Provider: Tiffanie Suarez, SONNY) senna (SENOKOT) tablet 17.2 mg 17.2 mg, Oral, 2 TIMES DAILY, First dose on Thu10/20/16 at 1200, Until Discontinued, Routine 1203 (Given - Provider: Mirella Le, SONNY) Continuous Medication Order 10/18/2016 10/19/2016 10/20/2016 lactated Ringers infusion (CANCELED) 100 mL/hr, Intravenous, CONTINUOUS, Starting on 10/17/16 at 1219, Until 10/18/16 at 1628 0726 (New Bag - Provider: Salina Johnson, RN)1110 (MAR Hold - Provider: Admin Adt - Reason: Transfer to a Procedural area)1628 (MAR Unhold - Provider: Admin Adt) lactated Ringers infusion (CANCELED) 50 mL/hr, Intravenous, CONTINUOUS, Starting on 10/18/16 at 1645, Until 10/20/16 at 0739 1636 (New Bag - Provider: Adelina Mayfield, SONNY) 0535 (Stopped - Provider: Marilia Do, SONNY)0536 (New Bag - Provider: Marilia Do, SONNY)2311 [...] Recovery, Routine 1715 (Given - Provider: Adelina Mayfiled RN)1733 (Given - Provider: Adelina Mayfield, SONNY)1801 (See Alternative - Provider: Adelina Mayfield RN) [...] Mayfield RN)1733 (See Alternative - Provider: Adelina Mayfield RN)1801 (Given - Provider: Adelina Mayfield RN) iohexol [...] PACU Recovery 1753 (Given - Provider: Adelina Mayfield RN) ondansetron (ZOFRAN) injection 4 mg 4 mg, Intravenous, EVERY 8 HOURS PRN, Starting on 10/18/16 at 2029, Until 10/20/16 at 1829, Nausea, STAT 2037 (Given - Provider: Marilia Do RN) oxyCODONE (ROXICODONE) immediate release tablet 10 mg (CANCELED) 10 mg, Oral, 3 TIMES DAILY PRN, Starting on 10/17/16 at 1541, Until 10/18/16 at 2029, Pain 1110 (MAR Hold - Provider: Admin Adt - Reason: Transfer to a Procedural area)1628 (MAR Unhold - Provider: Adelina Mayfield RN)1800 (Given - Provider: Adelina Mayfield RN) oxyCODONE (ROXICODONE) immediate release tablet 10 mg 10 mg, Oral, EVERY 3 HOURS PRN, Starting on Thu10/19/16 at 0749, Until 10/20/16 at 1829, Pain, Routine 0811 (Given - Provider: Tiffanie Suarez, RN)1300 (Given - Provider: Tiffanie Suarez, RN)1606 (Given - Provider: Tiffanie Suarez, RN)2011 (Given - Provider: Debbie Conroy, RN)2312 (Given - Provider: Debbie Conroy, RN) 0540 (Given - Provider: Debbie Conroy, RN)0915 [...] Routine documented in this encounter Care Teams Drum Operator Relationship Specialty Start Date End Date Bob Day MD [address] [place] [address] PCP - General Family Medicine 12/21/15 06/04/17 documented as of this encounter
--- OUTSIDE RECORDS SUMMARY | 2024-04-05 16:34 | XMS_ITS | Encounter Summary ---
[place] [address] Care Team Providers Care Caser Name Role Phone Bob Day MD Primary Care Provider [phone] Encounter Details Date Type Department Care Team (Late st Contact Info) Description 03/20/2016 [place]phone [place] [phone] Karla Swann, RN Social History Tobacco Use [...] Telephone Encounter - Karla Swann RN - 03/20/2016 8:56 AM EST Return call to patient as she had left a message on Nurse voice mail she states I am calling as Ineed to find out when my pump refill is due I was told by Dr. Ramon but I forgot and I am living in [place] so I am going to have it refilled out there Nurse spoke with patient and informed her that her next pump refill date is May 12 2016. Patient states Thank you so much Nurse advise s patient to call if she needs any thing else patient verbalizes understanding and agrees with the plan. documented in this encounter Plan of Treatment Upcoming Encounters Date Type Department Care Team (Latest Contact Info) Description 04/06/2024 11:30 AM EST Hospital Encounter [place] [address] Cadence Eric MD [facility] [address] 04/06/2024 11:30 AM EST - 04/06/2024 12:50 PM EST Surgery [place]patient [place] [phone] Cadence Eric MD [facility] [address] IMPLANT NEUROSTIMULATOR ELECTRODES, PERIPHERAL NERVE (WRVU 5.76) 04/14/2024 2:30 PM EST Office Visit [facility] [place] [address] Cadence Eric MD [facility] [place] [address] Scheduled Procedures Name Priority Associated Diagnoses Date/Ti [...] on filedocumented in this encounter Care Teams Caser Relationship Specialty Start Date End Date Bob Day MD [address] [place] [address] PCP - General Family Medicine 12/21/15 06/04/17 documented as of this encounter
--- OUTSIDE RECORDS SUMMARY | 2024-04-05 16:34 | XMS_ITS | Encounter Summary ---
Author Organization [facility] Address [facility] [place] [address] Care Team Providers Care Shot Bagger Name Role Phone Unknown Primary Care Provider Unavailabl e Reason for Visit * Reason Comments Thyroid Problem Encounter Details Date Type Department Care Team (Late st Contact Info) Description 09/09/2012 8:30 AM EDT Office [place] [address] Lorna Malave MD [facility] [place] [address] Hypothyroid (Primary Dx) Discharge Disposition: Home Social History [...] Sign Reading Time Taken Comments Blood Pressure 119/83 09/09/2012 8:49 AM EDT Pulse 85 09/09/2012 8:49 AM EDT Temperature - - Respiratory Rate - - Oxygen Saturation - - Inhaled Oxygen Concentration - - Weight 94.6 kg (208 lb 9.6 oz) 09/09/2012 8:49 A M EDT Height - - Body Mass Index 40.74 10/07/2011 3:46 PM EDT documented in this encounter Progress Notes * Lorna Maalve MD - 09/09/2012 9:24 AM EDT PRIMARY CARE PROVIDER: Javier Isidro MD Etelvina Cuadra is a 51-year-old woman here for a second opinion regarding her hypothyroidism. She recalls in her early 20s being diagnosed with a thyroid problem being treated with medication for about three months and then it was discontinued and was never followed up until she moved the [place] area in her 30s. At that time, she was diagnosed with hypothyroidism when she presented with hair loss, fatigue, and change in her mood and she was started on low-dose of levothyroxine, she thinks about 25 mcg per day, the dose was gradually increased, and for the last several years she has been on 100 mcg daily. Last spring, Dr. Mari Sewell, her primary care provider in [place], advised her to lower her dose of levothyroxine to 88 mcg a day. She then started noticing hair loss and fatigue. She moved to [place] and had further evaluation. In 10/2011, TSH was 1.14 and levothyroxine 88 mcg daily was continued. In January, she saw Dr. Isidro and was again feeling the fatigue and hair loss. Thyroid levels showed a normal free T4, low free T3, and an elevated TSH of 4.718. She was switched to levothyroxine 100 mcg a day and at some point liothyronine 25 mcg per day was added. In 05/2012, her free T4 was normal at 1.4, free T3 normal at 3.71, and TSH was 0.017, but the patient was still noticing hair loss, fatigue, nervousness, irritability, tremor, and dose of levothyroxine was increased to 100 mcg with the liothyronine, and in July TSH was less than 0.007. She then saw an welding specialist Dr. Luo in early August in [place], was advised to stop the Cytomel, it was thought that perhaps some of her symptoms could be related to the T3, she was advised to switch back to her normal baseline dose of levothyroxine 100 mcg a day. Within a week, she was really feeling better. She is pretty much back to her normal self. Denies nervousness, irritability, tremors, palpitations, heat intolerance. She does have wide fluctuations in her weight, she went from 225 to 195 in a month and is now back up to 208, but otherwise really feels well. Last fall, she had a partial knee replacement and because of an abnormal EKG underwent cardiac catheterization which apparently showed some minor blockages but no stenting or other procedures needed to be done. PAST MEDICAL HISTORY: Hypothyroidism dating back to the early , sciatica, hyperlipidemia with high triglycerides, chronic pain after back fracture, and depression. PAST SURGICAL HISTORY: Back surgery x2, knees surgery in 03/2012, and tonsillectomy. Current Outpatient Prescriptions on File Prior to Visit Medication Sig Dispense Refill ??? citalopram (CELEXA) 40 mg tablet Take 40 mg by mouth daily. ??? nabumetone (RELAFEN) 500 mg tablet Take 500 mg by mouth daily. ??? amitriptyline (ELAVIL) 100 mg tablet 100 MG = 1 Tablet(s), PO, QHS ??? fenofibrate (TRICOR) 145 mg tablet 145 MG = 1 Tablet(s), PO, Once daily ??? levothyroxine (SYNTHROID) 100 mcg tablet 100 MCG = 1 Tablet(s), PO, Once daily Allergies Allergen Reactions ??? Peanut CIS - [...] - ITCHING ??? Tetracyclines CIS - itching SOCIAL HISTORY: She quit smoking in 1991 after about 18 years of smoking. Alcohol, has rarely about three times a year. She is for 23 years. Has three children, 33-year-old son, 31-year-old and 32-year-old daughters. She is on disability due to her back pain. FAMILY HISTORY: Her daughter has thyroid disease. Father has had a stroke and [place] but has survived. Her mother is alive and well. Maternal grandmother of breast cancer. Maternal grandfather of colon cancer. Paternal grandmother of stomach cancer and paternal grandfather of an [place]. COMPLETE REVIEW OF SYSTEMS: She has a lot of back pain and she has itching on the skin on her left delacruz, but otherwise really feeling well. Her hair is back to normal. No complaints or concerns. PHYSICAL EXAMINATION: Blood pressure 119/83, pulse 85, weight 208 pounds. In general, she is an overweight woman, in no acute distress. HEENT: Extraocular movements intact. No lid lag or stare. No periorbital edema. Her pharynx was clear. Mucous membranes are moist. Her neck is supple. Lymph Nodes: No adenopathy in the neck. Thyroid gland is small, barely palpable. Spine: No point tenderness. Lungs: Clear to auscultation and percussion. Cardiac Exam: Regular rhythm. Normal S1 and S2. No murmur, rub, or gallop were appreciated. Abdomen: Bowel sounds present, soft, and nontender. No organomegaly or masses. Extremities: No edema. Her skin is smooth, warm, and dry. On neurologic exam, cranial nerves III through XII intact. Motor strength and tone are normal. There is no tremor. Deep tendon reflexes 1+ at the knees, 2+ at the elbows. Psych: Mood and affect appropriate. IMPRESSION: Etelvina Cuadra is a 51-year-old woman with longstanding primary hypothyroidism. I suspect last August her TSH must have been a little low when the dose of levothyroxine was lowered and subsequently TSH went up and at one point she had high free T4 and a low T3, so liothyronine was added to her regimen without adjusting the dose of levothyroxine and then she became mildly hyperthyroid. I advised Ms. Cuadra that we usually replace thyroid hormone with T4 alone and then allow the body to do the peripheral conversion to T3. Thyroid glands generally make mostly T4 in a ratio of 10-20:1 to T3 and I agree with the plan to have her just on levothyroxine and clinically she is feeling much better. I would aim to keep her TSH in the 0.2 to 2.0 range with levothyroxine alone and I would probably not recheck levels after today for four to six months. If her TSH is still suppressed today, I would not make any adjustments in her levothyroxine dose, her TSH may remain suppressed for several months after her higher dose of thyroid hormone replacement, it may take a while for the pituitary to recover. PLAN: 1. We will check T4, T3, T-uptake, TSH today. 2. Would continue levothyroxine 100 mcg per day for now and recheck TSH in about four months aiming to keep it in the 0.2-2.0 range. Recent Results (from the past 72 hour(s)) TSH Component Value Range TSH 1.34 0.27 - 4.20 mcIU/mL T4 Component Value Range T4, total 6.7 5.1 - 10.8 mcg/dL T3 Component Value Range T3, Total 98 75 - 170 ng/dL T UPTAKE Component Value Range T Uptake 1.13 0.80 - 1.30 ratio FREE THYROXINE INDEX Component Value Range FTI 5.9 4.5 - 9.5 mcg/dL documented in this encounter Plan of Treatment Upcoming Encounters Date Type Department Care Team (Latest Contact Info) Description 04/06/2024 11:30 AM EST Hospital Encounter [place]patient [place] [address] Cadence Eric MD [facility] [place] [address] 04/06/2024 11:30 AM EST - 04/06/2024 12:50 PM EST Surgery [place] [phone] Cadence Eric MD [facility] [place] [address] IMPLANT NEUROSTIMULATOR ELECTRODES, PERIPHERAL NERVE (WRVU 5.76) 04/14/2024 2:30 PM EST Office Visit [facility] [place] [phone] Cadence Eric MD [facility] [place] [address] Scheduled Procedures Name Priority Associated Diagnoses Date/Ti [...] Procedure Name Priority Date/Time Associated Diagnosis Comments FREE THYROXINE INDEX Routine 09/09/2012 9:34 AM EDT T3 TOTAL STAT 09/09/2012 9:34 AM EDT Hypothyroid T UPTAKE Routine 09/09/2012 9:34 AM EDT Hypothyroid TSH Routine 09/09/2012 9:34 AM EDT Hypothyroid T4 TOTAL Routine 09/09/2012 9:34 AM EDT Hypothyroid documented in this encounter Results * Free Thyroxine Index (09/09/2012 9:34 AM EDT) Free Thyroxine Index 5.9 4.5 - 9.5 mcg/dL [facility] Comment: Females: 5. 5-10.5 mcg/dL Blood specimen (specimen) 09/09/2012 9:34 AM EDT 09/09/2012 9:50 AM EDT Narrative Resulting Agency Comment Spec In Lab Lorna Malave MD CHEMISTRY ORDERAB LES [facility] * T Uptake (09/09/2012 9:34 AM EDT) T Uptake 1.13 0.80 - 1.30 ratio [facility] Comment: Tup assay is directly proportional to Thyroid binding protein concentration, thus FT4 Index = TT4/Tup. Cord Blood Reference Range: ??0.74-1.28. Blood specimen (specimen) 09/09/2012 9:34 AM EDT 09/09/2012 9:50 AM EDT Narrative Resulting Agency Comment Spec In Lab Lorna Malave MD CHEMISTRY ORDERAB LES [facility] * T3 (09/09/2012 9:34 AM EDT) T3 Total 98 75 - 170 ng/dL [facility] Blood specimen (specimen) 09/09/2012 9:34 AM EDT 09/09/2012 9:50 AM EDT Narrative Resulting Agency Comment Spec In Lab Lorna Malave MD CHEMISTRY ORDERAB LES Performing Organization Address [facility] Co de Phone Number [facility] HENDRIXI[facility] * T4 (09/09/2012 9:34 AM EDT) T4 Total 6.7 5.1 - 10.8 mcg/dL [facility] Comment: Reference Range: [place] Cord Blood: ??6.9-14.4 mcg/dL Females: ??7.2-14.2 mcg/dL Pediatric ranges: ??Interpret with caution-ranges have not been verified Blood specimen (specimen) 09/09/2012 9:34 AM EDT 09/09/2012 9:50 AM EDT Narrative Resulting Agency Comment Spec In Lab Lorna Malave MD CHEMISTRY ORDERAB LES Performing Organization Address City/[facility]/ZIP Co de Phone Number [facility] HENDRIXI[facility] * TSH (09/09/2012 9:34 AM EDT) Thyroid Stimulating Hormone 1.34 0.27 - 4.20 mcIU/mL [facility] Blood specimen (specimen) 09/09/2012 9:34 AM EDT 09/09/2012 9:50 AM EDT Narrative Resulting Agency Comment Spec In Lab Lorna Malave MD CHEMISTRY ORDERAB LES Performing Organization Address City/[facility]/ZIP Co de Phone Number HANSEL SANTACRUZ documented in this encounter Visit Diagnoses Diagnosis Hypothyroid- Primary Unspecified hypothyroidism Saphenous neuralgia, right documented in this encounter Care Teams Shot Bagger Relationship Specialty Start Date End Date Unknown None PCP - General 09/09/12 12/20/15 documented as of this encounter
--- OUTSIDE RECORDS SUMMARY | 2024-04-05 16:35 | XMS_ITS | Encounter Summary ---
Author Organization [facility] Address [facility] [place] [address] Care Team Providers Care Greens Tier Name Role Phone Unavailable Primary Care Provider Unavailabl e Encounter Details Date Type Department Care Team (Late st Contact Info) Description 03/15/2010 3:30 PM EDT - 03/15/2010 11:59 PM EDT Hospital [place] [address] Social History Tobacco Use Types Packs/Day Years [...] EST Hospital Encounter Outpatient [place] [address] Cadence Eric MD [facility] [place] [address] 04/06/2024 11:30 AM EST - 04/06/2024 12:50 PM EST Surgery Outpatient [place] [address] Cadence Eric MD [facility] [place] [address] IMPLANT NEUROSTIMULATOR ELECTRODES, PERIPHERAL NERVE (WRVU 5.76) 04/14/2024 2:30 PM EST Office Visit Pain [place] [address] Cadence Eric MD [facility] [place] [address] Scheduled Procedures Name Priority Associated Diagnoses Date/Ti [...]
--- OUTSIDE RECORDS SUMMARY | 2024-04-05 16:35 | XMS_ITS | Encounter Summary ---
Author Organization [facility] Address [facility] [place] [address] Care Team Providers Care Claims Vice President Name Role Phone Ja Ordaz MD Primary Care Provider [phone] Encounter Details Date Type Department Care Team (Late st Contact Info) Description 08/16/2008 Orders [place] [phone] Najma Argueta MD [facility] [place] [address] Social History Tobacco Use Types Packs/Day Years [...] AM EST Hospital Encounter Outpatient [place] [phone] Cadence Eric MD [facility] [place] [address] 04/06/2024 11:30 AM EST - 04/06/2024 12:50 PM EST Surgery Outpatient [place] [phone] Cadence Eric MD [facility] [address] [place] [address] IMPLANT NEUROSTIMULATOR ELECTRODES, PERIPHERAL NERVE (WRVU 5.76) 04/14/2024 2:30 PM EST Office Visit Pain and Spine Center at [facility] [place] [address] Cadence Eric MD [facility] [place] [address] Scheduled Procedures Name Priority Associated Diagnoses Date/Ti [...] Associated Diagnosis Comments SURGICAL PATHOLOGY REPORT Routine 08/16/2008 12:16 PM EDT documented in this encounter Results * Surgical Pathology Report (08/16/2008 12:16 PM EDT) Surgical Pathology Report [id number] ? Location: 4T The signing pathologist has (i) examined the relevant preparation(s) for the specimen(s) and (ii) rendered or confirmed the diagnosis(es). . ?Pathology Surgical Pathology Final Report Clinical Information Specimen Submitted: A - Large polyp distal esophagus B - Smaller polyps distal esophagus C - Biopsies mid esophagus Clinical History: PT with dysphagia - several polypoid lesions in distal esophagus ? etiology Esophageal mucosa suspicious for eosinophilic esophagitis Clinical Diagnosis: Reflux Gross Description A - Labeled/Fixative : Large polyp distal esophagus, formalin. Qty/Size/Weight: ?Single, 0.4 x 0.3 x 0.2 cm. Tissue Description: ?? Soft, ledesma tissue. Sections/Process ing: ??(T1) B - Labeled/Fixative : Small polyps distal esophagus, formalin. Qty/Size/Weight: ?Five, ranging from 0.1 cm to 0.3 cm in greatest ?dimension. Tissue Description: ?? Soft, ledesma tissues. Sections/Process ing: ??(T1) C - Labeled/Fixative : Biopsies mid esophagus, formalin. Qty/Size/Weight: ?Four, ranging from 0.1 cm to 0.4 cm in greatest ?dimension. Tissue Description: ?? Soft, ledesma tissues. Sections/Process ing: ??(T1) ??aje/SHB Microscopic Description Slides reviewed, microscopic description not recorded. Diagnosis A - Large polyp, distal esophagus, endoscopic biopsy: ?Squamous papilloma with accompanying eosinophilic ?esophagitis (more than 20 eosinophils per high power field). B - Smaller polyp, distal esophagus, endoscopic biopsy: ?Squamous papilloma with accompanying eosinophilic ?esophagitis (more than 20 eosinophils per high power field). C - Mid esophagus, endoscopic biopsy: ?Esophageal squamous mucosa with eosinophilic esophagitis. . Diagnosis CR-0 08/17/08 VMS 08/17/08 Verified by: ? Lois Sanabria MD ?Pathologist ?(Electronic Signature) The attending pathologist whose signature appears on this report has reviewed all diagnostic slides and has edited the gross and/or microscopic portion of the report in rendering the final pathologic diagnosis. HANSEL SANTACRUZ 08/16/2008 12:1 6 PM EDT Najma Argueta MD PATHOLOGY/CYTOLOGY O [facility] Performing Organization Address City/State/[place] Co de Phone Number HANSEL SANTACRUZ documented in this encounter Visit Diagnoses Not on filedocumented in this encounter Care Teams Claims Vice President Relationship Specialty Start Date End Date Ja Ordaz MD [address] [place] [address] PCP - General Emergency Medicine 03/11/21 documented as of this encounter
--- OUTSIDE RECORDS SUMMARY | 2024-04-05 16:35 | XMS_ITS | Encounter Summary ---
Author Organization [facility] Address [facility] [place] [address] Care Team Providers Care Speech Therapy Director Name Role Phone Unavailable Primary Care Provider Unavailabl e Encounter Details Date Type Department Care Team (Late st Contact Info) Description 03/19/2010 1:00 PM EST [place] [phone] Martin Tavares MD [facility] [place] [place] [address] Social History Tobacco Use Types Packs/Day Years [...] AM EST Hospital Encounter [place]patient [place] [phone] Cadence Eric MD [facility] [place] [address] 04/06/2024 11:30 AM EST - 04/06/2024 12:50 PM EST Surgery [place] [phone] Cadence Eric MD [facility] [place] [address] IMPLANT NEUROSTIMULATOR ELECTRODES, PERIPHERAL NERVE (WRVU 5.76) 04/14/2024 2:30 PM EST Office Visit [facility] Sp[facility] at [facility] [place] [address] Cadence Eric MD [facility] [place] [address] Scheduled Procedures Name Priority Associated Diagnoses Date/Ti [...]
== END 2024-04-05 16:20 | disposition home or self-care (01) ==
LOC: NCHCN 16:19
PROVIDERS: PCP Family Medicine; Visit Provider Family Medicine
DX: Z01.818 Encounter for other preprocedural examination (principal)
CPT/HCPCS: 80053; 85027

== ENCOUNTER 2024-07-12 14:33 | Outpatient (REF) | payer OTHER, MEDICARE, SELFPAY | END 2024-07-12 14:34 | disposition home or self-care (01) | LOC: NCHCN 14:33 | PROVIDERS: PCP Family Medicine; Visit Provider Family Medicine | DX: E03.9 Hypothyroidism, unspecified (principal) | CPT/HCPCS: 84443 ==

== ENCOUNTER 2025-01-22 15:18 | Emergency (ER) | payer OTHER, MEDICARE, SELFPAY ==
[2025-01-22] VITALS (15 sets, daily range): BP systolic 138–186; BP diastolic 72–129; PULSE 69–100; RESP 11–24; O2SAT 93–100
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
--- NOTE | 2025-01-22 15:15 | RT.EKG_ITS ---
APPROVED REPORT Exam: Resting ECG Reason for Exam: chest pain Patient Location: E HR:73 bpm ECG Measurements Heart Rate 73 AXIS OR 179 P 37 QRSd 89 QRS 2 QT 394 T 15 QTc 434 Conclusion Sinus rhythm...normal P axis, V-rate 60- 99 Low voltage, precordial leads...precordial leads <1.0mV
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
[2025-01-22] MEDS: HYDROmorphone 2 MG/ML SYR IVP (15:30)
[2025-01-22 15:37] LABS: Abs Immature Grans 0.09 10^3/uL (0.0-0.06); HCT 40.6 % (36.0-46.0); HGB 13.1 g/dL (11.2-15.7); Immature Grans % 1.1 %; MCH 28.2 pg (27.0-33.0); MCHC 32.3 % (32.0-36.0); MCV 87 fL (80-95); MPV 10.1 fL (8.0-11.0); Platelet Count 352 10^3/uL (130-400); RBC 4.65 10^6/uL (3.93-5.22); RDW 13.1 % (11.7-14.6); RDW-SD 41.4 fL; WBC 8.36 10^3/uL (4.4-10.8)
[2025-01-22 15:54] LABS: ALT 76 U/L (14-59); AST 62 U/L (15-37); Albumin 4.3 g/dL (3.4-5.0); Alkaline Phosphatase 64 U/L (46-116); Anion Gap 9.6 mmol/L (3-11); BUN 9 mg/dL (7-18); Bilirubin, Total 0.5 mg/dL (0.2-1.0); CO2 29.4 mmol/L (21.0-32.0); Calcium 9.3 mg/dL (8.5-10.1); Chloride 103 mmol/L (98-107); Estimated GFR 71.83 (mL/min/1.73m2); Glucose 107 mg/dL (74-106); Lipase 40 U/L (<78); Magnesium 1.8 mg/dL (1.8-2.4); Potassium 4.0 mmol/L (3.5-5.1); Sodium 142 mmol/L (136-145); Total Protein 8.2 g/dL (6.4-8.2)
[2025-01-22] MEDS: Normal Saline - Diluent 50 ML VIAL IJ (16:13)
[2025-01-22] MEDS: Omnipaque 350 MG/ML 100 ML BTL IJ (16:13)
[2025-01-22] MEDS: Normal Saline Flush 10 ML SYR IVP (16:14)
[2025-01-22] MEDS: HYDROmorphone 2 MG/ML SYR 1 MG IVP (16:36)
[2025-01-22 16:50] LABS: Glucose Negative (Negative)
[2025-01-22 17:05] LABS: Cannabinoids THC Negative (Negative); METHADONE URINE SCREEN Negative (Negative)
[2025-01-22] MEDS: oxyCODONE 15 MG TAB PO ×3 (18:42)
== END 2025-01-22 19:17 | disposition home or self-care (01) ==
PROVIDERS: Emergency Provider Emergency Medicine; PCP Family Medicine
DX: S09.8XXA Other specified injuries of head, initial encounter (principal); S20.312A Abrasion of left front wall of thorax, initial encounter; S80.12XA Contusion of left lower leg, initial encounter; Z87.891 Personal history of nicotine dependence; V43.52XA Car driver injured in collision with other type car in traffic accident, initial encounter
CPT/HCPCS: 73552; 74177; 80053; 80307; 83690; 86850; 86900; 86901; 93005; 96374; 96376; 99285; 70450; 71260; 72125; 73590; 80320; 81003; 83735; 85025; 93010; J1171; J3490

== ENCOUNTER 2025-04-18 15:09 | Outpatient (REF) | payer OTHER, MEDICARE, SELFPAY ==
[2025-04-18 21:05] LABS: Abs Immature Grans 0.03 10^3/uL (0.0-0.06); HCT 36.6 % (36.0-46.0); HGB 11.6 g/dL (11.2-15.7); Immature Grans % 0.3 %; MCH 27.8 pg (27.0-33.0); MCHC 31.7 % (32.0-36.0); MCV 88 fL (80-95); MPV 11.0 fL (8.0-11.0); Platelet Count 413 10^3/uL (130-400); RBC 4.17 10^6/uL (3.93-5.22); RDW 12.9 % (11.7-14.6); RDW-SD 41.1 fL; WBC 8.93 10^3/uL (4.4-10.8)
[2025-04-18 21:21] LABS: Iron 47 ug/dL (50-170)
[2025-04-18 22:13] LABS: Total Iron Binding Capacity 513 ug/dL (250-425)
[2025-04-18 22:14] LABS: Ferritin 106 ng/mL (7-271); TSH 3.82 uIU/mL (0.55-4.78); Vitamin B12 422 pg/mL (211-911)
[2025-04-18 22:15] LABS: Folate > 24.0 ng/mL (>5.38)
== END 2025-04-18 15:10 | disposition home or self-care (01) ==
LOC: NCHCN 15:09
PROVIDERS: PCP Family Medicine; Visit Provider Family Medicine
DX: D64.9 Anemia, unspecified (principal); E03.9 Hypothyroidism, unspecified
CPT/HCPCS: 82607; 82728; 82746; 83540; 83550; 84443; 85025